=== PATIENT | male | born 1960 | race Caucasian/White ===

== ENCOUNTER 2016-12-30 16:13 | Emergency (ER) | payer OTHER ==
[~2016-12-30] VITALS: Ht 188 cm; Wt 108.0 kg
[2016-12-30 16:21] VITALS: Ht 188 cm; Wt 108.0 kg
--- NOTE | 2016-12-30 17:46 | ERD ---
ER Documentation Chief Complaint Date/Time DATE: 12/30/16 TIME: 17:[address] and cough for past 2 weeks HPI 56 y/o male presents to ED for sore throat and productive cough for more than a week. Stated that he felt like he had a fever a few days ago but did not take his temperature. Denies headache, loss of consciousness, dizziness, blurry vision, changes in vision, photophobia, ear pain, difficulty swallowing, neck pain, shoulder pain, chest pain, hemoptysis, abdominal pain, back pain, loss of appetite, nausea, vomiting, hematochezia, diarrhea, constipation, urinary symptoms, bladder and bowel incontinences, extremity weakness, extremity tenderness, numbness or tingling sensation, difficulty walking, recent travel, recent exposure to illness, recent antibiotic use in the last 3 months, chills. Allergy: NKA PMH: Diabetes. Medications: Metformin. Surgery: Denies. Family history: Denies. 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 Denies smoking, use of alcohol, use of illegal drugs. ROS All systems reviewed and are negative except as per history of present illness. Medications Home Meds Active Scripts Ibuprofen* (Motrin*) 600 Mg Tab, 600 MG PO Q6H Y for PAIN AND OR ELEVATED TEMP, #30 TAB Prov:DELFINO LEE F 12/30/16 Guaifenesin-Dextromethorphan* (Robitussin* DM) 100MG/10MG/5ML Syrup, 5 ML PO Q6H Y for COUGH for 7 Days, ML Prov:DELFINO LEE F 12/30/16 Amoxicillin/Potassium Clav (Amox-Clav 875-125 mg Tablet) 875-125 mg Tab, 1 TAB PO BID for 10 Days, #20 TAB Prov:DAVIDMARIA ESTHERJELENAAR F 12/30/16 Allergies Allergies: Coded Allergies: No Known Allergy (Unverified , 12/30/16) Physical Exam Vitals Vital Signs Date Time Temp Pulse Resp B/P Pulse Ox O2 Delivery O2 Flow Rate FiO2 12/30/16 16:21 98.9 93 18 141/71 97 Physical Exam CONSTITUTIONAL: Well-appearing; well-nourished; in no apparent distress. HEAD: Normocephalic; atraumatic. EYES: Conjunctiva clear, sclera non-icteric, EOM intact. PERRL Ears: Hearing intact. EACs clear, TMs non-bulging, non-inflamed, translucent & mobile, ossicles normal appearance, No obstructions, no erythema, no discharges Nose: No obstructions. No polyps. No external lesions. Mucosa inflamed. No external lesions, septum and turbinates normal. No rhinorrhea. No discharges. Frontal sinus is tender to palpation. Maxillary sinus is tender to palpation. MOUTH: Moist mucous membranes, no lesion, no obstructions, no vesicles, no thrush, patent airway Throat: Uvula in midline. Right tonsil is +2 with rythema, no exudate. Left tonsil is +2 with erythema, no exudate. Tolerating secretions well. Good gag reflex. Patent airway. Neck: Supple, without lesions, bruits, or adenopathy. No mass. Thyroid non- enlarged and non-tender to palpation. CHEST: Symmetrical chest. Respirations even and not labored. No retractions noted. CARDIOVASCULAR: Normal S1, S2. RRR. No murmurs, gallops. RESPIRATORY: Normal chest excursion with respiration; breath sounds clear and equal bilaterally; no wheezes, rhonchi, or rales. Breathing even and unlabored. Speaking in clear, full, and complete sentences w/ ease. ABDOMEN: Normal bowel sounds normal. Soft, round, non-distended, non-guarding, no tenderness, no rebound, no organomegaly, no masses, no pulsating abdominal mass. No hernia. No peritoneal signs. : No CVA tenderness. BACK: Symmetrical shoulder. Spine is midline without deformity, tenderness. No evidence of trauma or deformity. PELVIS: Stable pelvis. No evidence of trauma or deformity. MUSCULOSKELETAL: Normal gait and station. No misalignment, asymmetry, crepitation, defects, tenderness, masses, effusions, decreased range of motion, instability, atrophy or abnormal strength or tone in the head, neck, spine, ribs , pelvis or extremities. No calf tenderness. NEUROVASCULAR: Distal pulses are present. Pedal pulse are present, equal, and normal. Capillary refills are < 2 seconds. NEUROLOGIC: Alert and oriented x4. Speaks full and clear sentences. Cranial Nerves II-XII normal. Sensation to pain, touch, and proprioception normal. Grossly unremarkable. No neurologic deficits. Romberg test is negative. PSYCHOLOGICAL: The patients mood and manner are appropriate. No hallucinations , delusions. Not SI. Not HI. Has the capacity to decide for self SKIN: Normal for age and ethnicity; warm; dry; good turgor; no apparent lesions or exudates. No rashes, hives, discoloration. Intact. Procedures/MDM Examination: Please see physical examination. Disease process, medical treatment was explained to the patient and family member. They verbalized understanding and agreed with the medical treatment, and follow-up care. Consultation: None. Differential diagnosis: Pneumonia versus bronchitis versus upper respiratory infection versus strep throat versus sinusitis Medical decision makin56 y/o male presents to ED for sore throat and productive cough for more than a week. Stated that he felt like he had a fever a few days ago but did not take his temperature. Patient's complaint, my physical findings are consistent with my final diagnosis of sinusitis. Medications prescribed are the following: Augmentin. Robitussin-DM. Motrin. Patient and family member are made aware of the side effects and adverse reactions of the medications prescribed. Instructed on when to seek emergent and medical attention in case allergic/anaphylactic reactions or severe side effects and or adverse reactions to medications. Patient and family member verbalized understanding. Patient instructed Instructed to follow-up with his PCP in 24-48 hours. Instructed to Call 911 for chest pain, shortness of breath. Advised to come back here in ED as soon as possible for severity of symptoms which includes but not limited to: any new symptoms; shortness of breath/difficulty of breathing; cardiovascular changes; severe gastrointestinal symptoms; signs and symptoms of bleeding and or infection; signs of compartment syndrome/neurovascular changes; neurological changes/deficits. Patient and family member verbalized understanding. Upon discharge, patient is alert and oriented x 4, speaks full and clear sentences, denies pain, has no neurological deficits, has no neurovascular deficits, difficulty of breathing. Breathing even and unlabored. Lung sounds are clear to auscultation. Not in distress. Appears comfortable. Ambulatory with steady gait. Appears satisfied with care provided here in ED. Departure Diagnosis: Primary Impression: Sore throat Additional Impressions: Sinusitis, acute frontal Recurrence: not specified as recurrent Qualified Code: J01.10 - Acute frontal sinusitis, recurrence not specified Sinusitis, acute maxillary Recurrence: not specified as recurrent Qualified Code: J01.00 - Acute maxillary sinusitis, recurrence not specified Condition: Good Additional Instructions: Follow-up with PCP in the next 24-48 hours. DELFINO LEE Dec 30, 2016 17:46
[2016-12-30] MEDS ORDERED: AMOX1TAB10 PO (17:48)
[2016-12-30] MEDS ORDERED: UDROBDM PO (17:49)
[2016-12-30] MEDS ORDERED: IBUP-1542 PO (17:50)
== END 2016-12-30 17:52 | disposition home or self-care (01) ==
LOC: E/R 16:13
DX: J02.9 Acute pharyngitis, unspecified (principal); J01.10 Acute frontal sinusitis, unspecified; J01.00 Acute maxillary sinusitis, unspecified; E11.9 Type 2 diabetes mellitus without complications; Z79.84 Long term (current) use of oral hypoglycemic drugs
CPT/HCPCS: 99283

== ENCOUNTER 2018-11-14 06:46 | Day surgery (SDC) | payer OTHER ==
[~2018-11-14] VITALS: Ht 182.9 cm; Wt 85.5 kg
[~2018-11-14 06:46] MED LIST: AMOX1TAB10 PO; GUAI5SYR2 PO; IBUP-1542 PO
[2018-11-14 08:26] VITALS: Ht 182.9 cm; Wt 85.5 kg
[2018-11-14] MEDS ORDERED: metformin (08:32)
[2018-11-14] MEDS ORDERED: GLIPIZIDE (08:32)
[2018-11-14 08:52] VITALS: BP 124/75; PULSE 107; RESP 23
[2018-11-14] MEDS ORDERED: FENTAnyl 50 MCG/ML VIAL ONE (10:02)
[2018-11-14] MEDS ORDERED: MIDAZOLAM 1 MG/ML 2 ML INJ ONE ×2 (10:02)
[2018-11-14 10:32] VITALS: BP 113/63; RESP 15
== END 2018-11-14 12:31 | disposition home or self-care (01) ==
LOC: GIL 06:46
PROVIDERS: ATTEND Internal Medicine Gastroenterology
DX: Z12.11 Encounter for screening for malignant neoplasm of colon (principal); K64.8 Other hemorrhoids; E11.9 Type 2 diabetes mellitus without complications
CPT/HCPCS: 45378; 82962; J2250; J3010; Z7610

== ENCOUNTER 2018-11-23 11:50 | Inpatient (IN) | payer OTHER ==
[~2018-11-23] VITALS: Ht 185.4 cm; Wt 84.7 kg
[~2018-11-23 11:50] MED LIST changes: -AMOX1TAB10 PO; +GLIPIZIDE; -GUAI5SYR2 PO; -IBUP-1542 PO; +metformin
[2018-11-23] MEDS ORDERED: SODIUM CHLORIDE 0.9% 1L BAG IV* STA (12:51)
[2018-11-23] MEDS ORDERED: CEFTRIAXONE 1 GM/50 ML (PMX) 50 ML IVPB ONE (13:00)
--- NOTE | 2018-11-23 13:15 | ERD ---
ER Documentation Chief Complaint Chief Complaint pt is bib family with c/o weakness , nausea, unable to eat for a few days HPI This is a 58-year-old man brought in by family members for generalized weakness, 25 pound weight loss, tactile fevers and chills, and intermittent vomiting over the last 3 weeks. Patient denies abdominal pain, no sore throat, no chest pain or shortness of breath, no headache or blurry vision, no complaints of neck pain or stiffness. Patient denies URI symptoms, denies night sweats, denies dysuria. ROS All systems reviewed and are negative except as per history of present illness. Medications Home Meds Reported Medications Glipizide* (Glipizide*) 5 Mg Tablet, 5 MG PO BID, TAB 11/23/18 Metformin* (Glucophage*) 1,000 Mg Tablet, 1000 MG PO BID, #60 TAB 11/23/18 Discontinued Reported Medications [glizipide] No Conflict Check 11/14/18 [metformin] No Conflict Check 11/14/18 Allergies Allergies: Coded Allergies: No Known Allergy (Unverified , 11/23/18) PMhx/Soc Diabetes mellitus History of Surgery: Yes (CATARACT) Anesthesia Reaction: No Hx Neurological Disorder: No Hx Respiratory Disorders: Yes (PT STATES SOMETIMES SHORTNESS OF BREATH WITH PROCEDURES) Hx Cardiac Disorders: No Hx Psychiatric Problems: No Hx Miscellaneous Medical Probl: No Hx Alcohol Use: No Hx Substance Use: No Hx Tobacco Use: No FmHx Family History: diabetes Physical Exam Vitals Vital Signs Date Temp Pulse Resp B/P (MAP) Pulse Ox O2 O2 Flow FiO2 Time Delivery Rate 11/23/18 100.5 105 16 143/81 100 Room Air 15:00 (101) 11/23/18 101.4 109 20 118/68 98 11:53 (85) Physical Exam GENERAL: Well-developed, well-nourished, appears dehydrated, febrile HEENT: Dry mucous membranes, pink conjunctiva, no cervical spine tenderness or step-off deformities, no goiter, no jaundice or icterus, extraocular movements intact without pain. No submandibular induration, and no pharyngeal erythema NEURO: Alert and oriented 3, cranial nerves II through XII intact bilaterally, pupils equal round reactive to light, no focal deficits or facial asymmetry, sensation intact distally Strength 5/5 in upper and lower extremities bilateral ly CARDIAC: Tachycardic and regular, no murmurs rubs or gallops LUNGS: Clear bilaterally no wheezing crackles or stridor ABDOMEN: Soft nontender, no guarding, no rigidity, no rebound, no psoas sign no obturator sign. SKIN: Warm and dry to touch, no abrasions, contusions, or hematomas, no lacerations, no ecchymosis, no target lesions, and without ulcers EXTREMITIES: No clubbing cyanosis or edema, calves are bilaterally symmetrical, no Homans sign, no popliteal cord sign. Distal pulses equal and bilateral PSYCH: Normal affect without agitation or irritability Result Diagram: 11/23/18 1307 11/23/18 1307 Results 24 hrs Laboratory Tests Test 11/23/18 12:57 11/23/18 13:07 11/23/18 13:08 POC Venous Lactate 2.0 mmol/L White Blood Count 7.6 10^3/ul Red Blood Count 3.84 10^6/ul Hemoglobin 10.2 g/dl Hematocrit 31.6 % Mean Corpuscular Volume 82.3 fl Mean Corpuscular Hemoglobin 26.6 pg Mean Corpuscular 32.3 g/dl Hemoglobin Concent Red Cell Distribution Width 16.1 % Platelet Count 190 10^3/UL Mean Platelet Volume 10.4 fl Immature Granulocytes % 0.500 % Neutrophils % 53.4 % Lymphocytes % 23.2 % Monocytes % 22.0 % Eosinophils % 0.4 % Basophils % 0.5 % Nucleated Red Blood Cells % 0.0 /100WBC Immature Granulocytes # 0.040 10^3/ul Neutrophils # 4.1 10^3/ul Lymphocytes # 1.8 10^3/ul Monocytes # 1.7 10^3/ul Eosinophils # 0.0 10^3/ul Basophils # 0.0 10^3/ul Nucleated Red Blood Cells # 0.0 10^3/ul Urine Color ERIC Urine Clarity CLEAR Urine pH 5.0 Urine Specific [place] 1.015 Urine Ketones TRACE mg/dL Urine Nitrite NEGATIVE mg/dL Urine Bilirubin NEGATIVE mg/dL Urine Urobilinogen NEGATIVE mg/dL Urine Leukocyte Esterase NEGATIVE [place]/ul Urine Microscopic RBC 3 /HPF Urine Microscopic WBC 1 /HPF Urine Bacteria FEW /HPF Urine Mucus FEW /HPF Urine Hemoglobin 1+ mg/dL Urine Glucose NEGATIVE mg/dL Urine Total Protein NEGATIVE mg/dl Sodium Level 134 mmol/L Potassium Level 4.7 mmol/L Chloride Level 97 mmol/L Carbon Dioxide Level 28 mmol/L Anion Gap 9 Blood Urea Nitrogen 15 mg/dl Creatinine 0.84 mg/dl Est Glomerular Filtrat > 60 mL/min Rate mL/min Glucose Level 201 mg/dl Calcium Level 10.6 mg/dl Total Bilirubin 0.6 mg/dl Direct Bilirubin 0.00 mg/dl Indirect Bilirubin 0.6 mg/dl Aspartate Amino Transf (AST/SGOT) 43 IU/L Alanine 20 IU/L Aminotransferase (ALT/SGPT) Alkaline Phosphatase 166 IU/L Troponin I < 0.012 ng/ml Total Protein 8.6 g/dl Albumin 4.1 g/dl Globulin 4.50 g/dl Albumin/Globulin Ratio 0.91 Lipase 98 U/L Prothrombin Time 13.3 Sec Prothrombin Time Ratio 1.0 INR International 1.00 Normalized Ratio Activated Partial Thromboplast 26.9 Sec Time Current Medications Medications Dose Sig/Ishmael Start Time Status Last (Trade) Ordered Route PRN Stop Time Admin Dose Reason Admin Sodium 3,000 ml BOLUS OVER 2 11/23/18 DC 11/23/18 Chloride HOURS STAT 12:51 13:03 (NS) IV* 11/23/18 12:53 Ceftriaxone 50 ml @ ONCE ONCE 11/23/18 DC 11/23/18 Sodium 100 mls/hr IVPB 13:00 13:03 11/23/18 13:29 Sodium 1,000 ml @ Q30M ONCE 11/23/18 DC 11/23/18 Chloride 2,000 mls/hr IV 14:30 15:26 11/23/18 14:59 Sodium 500 ml ONCE ONCE 11/23/18 DC Chloride IV 15:30 (NS) 11/23/18 16:05 Sodium 1,000 ml @ Q8H IV 11/23/18 Chloride 125 mls/hr 15:28 IV Flush 3 ml PER 11/23/18 (NS 3 ml) PROTOCOL IV 15:30 Ondansetron 4 mg Q6H PRN 11/23/18 HCl (Zofran IV NAUSEA 15:30 Inj) AND/OR VOMITING 650 mg Q6H PRN 11/23/18 Acetaminophen PO PAIN 15:30 (Tylenol LEVEL 1-3 OR Tab) FEVER 650 mg Q6H PRN 11/23/18 Acetaminophen SD PAIN 15:30 (Tylenol LEVEL 1-3 OR Supp) FEVER 1 tab Q6H PRN 11/23/18 Acetaminophen PO MODERATE 15:30 / PAIN LEVEL Hydrocodone 4-6 Bitart ([place] (5/325)) Morphine 2 mg Q4H PRN 11/23/18 Sulfate IV SEVERE 15:30 (morphine) PAIN LEVEL 7-10 Docusate 100 mg Q12H PRN 11/23/18 Sodium PO 15:30 (Colace) CONSTIPATION Magnesium 30 ml DAILY PRN 11/23/18 Hydroxide PO 15:30 (Milk Of Mag) CONSTIPATION Bisacodyl 5 mg DAILY PRN 11/23/18 (Dulcolax) PO 15:30 CONSTIPATION Bisacodyl 10 mg DAILY PRN 11/23/18 (Dulcolax SD 15:30 Supp) CONSTIPATION Sodium 133 ml DAILY PRN 11/23/18 Biphosphate/ SD 15:30 Sodium CONSTIPATION Phosphate (Fleet Enema) Famotidine 20 mg Q12 PO 11/23/18 (Pepcid) 15:30 Enoxaparin 40 mg DAILY SC 11/24/18 Sodium 09:00 (Lovenox) Discontinue ONCE ONCE 11/23/18 DC Miscellaneous current oral XX 15:30 sulfonylur... 11/23/18 16:01 Information (* Miscellaneous Pharmacy Order) Diagnostic 1 ea 02 XX 11/24/18 Test (Pha) 02:00 (Accu-Chek) ONCE ONCE 11/23/18 DC Miscellaneous HYPOGLYCEMIA XX 15:30 PROTOCOL 11/23/18 16:01 Information w... (* Miscellaneous Pharmacy Order) Insulin NOVOLOG WITH MEALS 11/23/18 Aspart *MODERATE* BEDTIME SC 18:00 (Novolog ALGORITHM Insulin Pen) Discontinue ONCE ONCE 11/23/18 DC Miscellaneous all previ... XX 15:30 11/23/18 16:01 Information (* Miscellaneous Pharmacy Order) 1 ea NOTE XX 11/23/18 Miscellaneous 16:30 Information Glucose 15 gm Q15M PRN 11/23/18 (Glutose) PO DECREASED 16:30 GLUCOSE Glucose 22.5 gm Q15M PRN 11/23/18 (Glutose) PO DECREASED 16:30 GLUCOSE Dextrose 25 ml Q15M PRN 11/23/18 (D50w IV DECREASED 16:30 Syringe) GLUCOSE Dextrose 50 ml Q15M PRN 11/23/18 (D50w IV DECREASED 16:30 Syringe) GLUCOSE Glucagon 1 mg Q15M PRN 11/23/18 (Glucagen) IM DECREASED 16:30 GLUCOSE Glucose 15 gm Q15M PRN 11/23/18 (Glutose) BUCCAL 16:30 DECREASED GLUCOSE Procedures/MDM IV line was established patient was placed on manager monitoring rhythm strip revealed a sinus tachycardia at 110 bpm with upright P and T waves. Patient was afebrile. I ordered blood and urine cultures EKG performed, read by me revealed a sinus tachycardia at 105 bpm, normal axis, narrow QRS complex, no concerning ST elevations or depressions noted Chest X-ray 1V Interpreted by me: Soft Tissue: No acute abnormalities Bones: No acute abnormalities Mediastinum/Cardiac Silhouette/Lungs: No acute abnormalities I administered over 3 L normal saline IV for dehydration and ibuprofen 600 mg p.o. for fever. I also administered ceftriaxone 1 g IV CBC was unremarkable, electrolytes normal, liver function tests normal, troponin negative, lactic acid elevated at 2, urinalysis was negative for infection. Patient's infectious symptoms have not stabilized and the patient is at risk of rapid decompensation. The patient will be admitted for careful hydration, antibiotic therapy, and infectious source control. SEVERE SEPSIS CRITERIA: Infectious source: Unknown SEPSIS MANAGEMENT Time of recognition of sepsis: Upon arrival. Time of recognition of severe sepsis: No severe sepsis at this time. Time of recognition of septic shock: No septic shock at this time. 3 HOUR BUNDLE Blood cultures x 2 before broad-spectrum antibiotics: Yes 30 ml/kg NS bolus completed Initial lactate 2.0 Repeat lactate pending SEPTIC SHOCK ASSESSMENT: No lactic acid > 4.0 No persistent hypotension (SBP < 90 or 40 mmHg drop, MAP < 65) despite 30 mL/kg IV fluid bolus VOLUME REASSESSMENT FOR SEPTIC SHOCK: Reevaluation Time: 1615 Temp 99 F, BP 140/80, pulse 90 bpm, respiratory rate 18 breaths/min Heart regular rate & rhythm Lungs no crackles Skin warm & dry Cap Refill less than 2 seconds Peripheral pulses radially present PERSISTENT HYPOTENSION TREATMENT: Comfort care no Central line not Required Vasopressor started not required I considered further perfusion assessment with CVP measurement, SCVO2, bedside ultrasound volume assessment, passive leg raise, trial of further fluid bolus. And proceeded with 30 ml/kg fluid bolus of NSS, broad spectrum antibiotics, and admission. CRITICAL CARE: Critical care time 35 minutes, this was time separate from other billable procedures. Emergent fluid management while maintaining close respiratory support. Provision of immediate and broad-spectrum antibiotic therapy. Simultaneous assessment for possible sources in order to direct targeted therapy. Consideration for invasive and chemical support to prevent cardiopulmonary collapse. Critical care time is independent of procedures performed. Further workup and imaging deferred to admitting team, patient may require echocardiography Accepting Care Team: Current data and ongoing care discussed. Time: Time of admission Primary Provider: Hospitalist Consulting: Infectious disease Outstanding Data: none Departure Diagnosis: Primary Impression: Unexplained weight loss Additional Impressions: Vomiting Vomiting type: unspecified Vomiting Intractability: non-intractable Nausea presence: with nausea Qualified Codes: R11.2 - Nausea with vomiting, unspecified Weakness Fever Fever type: unspecified Qualified Codes: R50.9 - Fever, unspecified Condition: HANNAH Wright MD Nov 23, 2018 13:15
[2018-11-23] MEDS ORDERED: MTF1000T PO (13:27)
[2018-11-23] MEDS ORDERED: GLIP5TAB13 PO (13:27)
[2018-11-23] MEDS ORDERED: SOD CHLORIDE 0.9% 1,000 ML IV ONE (14:30)
[2018-11-23] MEDS ORDERED: ACETAMINOPHEN 325 MG TAB PO PRN (15:30)
[2018-11-23] MEDS ORDERED: morphine 4 MG/ML VIAL IV PRN (15:30)
[2018-11-23] MEDS ORDERED: ACETAMINOPHEN 650 MG SUPP PR PRN (15:30)
[2018-11-23] MEDS ORDERED: NA PHOSPHATE/BIPHOS 133 ML ENEMA PR PRN (15:30)
[2018-11-23] MEDS ORDERED: ONDANSETRON 4 MG INJ IV PRN (15:30)
[2018-11-23] MEDS ORDERED: HYDROCODONE/APAP (5/325) TAB PO PRN (15:30)
[2018-11-23] MEDS ORDERED: BISACODYL 10 MG SUPP PR PRN (15:30)
[2018-11-23] MEDS ORDERED: SODIUM CHLORIDE 0.9% 1L BAG IV ONE (15:30)
[2018-11-23] MEDS ORDERED: NACL 0.9% 3 ML SYG IV SCH (15:30)
[2018-11-23] MEDS ORDERED: MAGNESIUM HYDROXIDE 30ML CUP PO PRN (15:30)
--- NOTE | 2018-11-23 16:06 | HP ---
Date/Time of Note Date/Time of Note DATE: 11/23/18 TIME: 15:59 Assessment/Plan VTE Prophylaxis SCD contraindicated: low risk/ambulating Pharmacological prophylaxis: NA/contraindicated Pharm contraindication: low risk/ambulating Lines/Catheters IV [facility] Type (from [facility] Saline Lock Assessment/Plan Hospital Course Chief complaint weight loss History of present illness 58-year-old gentleman admitted with weight loss failure to thrive. earlier this month he had an elective colonoscopy which was a poor prep but otherwise unremarkable. Repeat: Plan in 5 years. Patient states that he is lost 15-20 pounds lately. Presented today for upper GI issues of nausea poor appetite. On exam he additionally had a fever bony aches. Denies any ill contacts. Possible cough fairly nonproductive. No recent travel ill contacts that I am aware of. Family members are not sick. 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 Patient denies any travel. Denies any kun dysuria diarrhea. No recent antibiotic use that I am aware of. Denies being hospitalized as a child for a lung infection tuberculosis etc. No family history of tuberculosis that I can ascertain. His and daughter are healthy. No recent change in medications or antibiotic use that I am aware of ER: Stable vital signs except sinus tachycardia and fever sinus rhythm Past medical history Diabetes Metabolic syndrome Weight loss Past surgical history None Social history No active tobacco or alcohol Has a [employer] school. Family history Diabetes No family history of early coronary disease cancer stroke Review of systems Neuro: No headache loss of speech or vision Cardiovascular: No chest pain no dyspnea no edema lungs: Lungs: Cough fever Abdomen: Occasional pain nausea weight loss Genitourinary: Occasional abdominal pain no dysuria hematuria possible fever Musculoskeletal: No gait dysfunction no rash no itching no edema Constitutional: Probable chills Reiger bony aches weight loss Endocrine: Positive diabetes metabolic syndrome no previous thyroid or dyslipidemia Hematologic system: No hematochezia melena hematuria Psychiatry: The patient has a stable mood advancing agitation anxiety depression Physical exam No pallor adenopathy JVD Regular no murmur rub gallop Clear Scaphoid Check sick no rigidity rebound guarding No edema Assessment and plan 1. Fever rule out viral illness. Consider gastritis stable admit to [facility] 2. Wt loss, possible hypercalcemia concerning for malignancy or severe infectious process. May need outpatient hematology 3. Diabetes metabolic syndrome 4. Anemia check occult iron studies possibly of chronic disease 5. BPH bladder outlet obstruction? May need urology consult soon Result Diagram: 11/23/18 1307 11/23/18 1307 Results 24hrs Laboratory Tests Test 11/23/18 12:57 11/23/18 13:07 11/23/18 13:08 POC Venous Lactate 2.0 White Blood Count 7.6 Red Blood Count 3.84 L Hemoglobin 10.2 L Hematocrit 31.6 L Mean Corpuscular Volume 82.3 Mean Corpuscular Hemoglobin 26.6 L Mean Corpuscular Hemoglobin Concent 32.3 Red Cell Distribution Width 16.1 H Platelet Count 190 Mean Platelet Volume 10.4 Immature Granulocytes % 0.500 H Neutrophils % 53.4 Lymphocytes % 23.2 Monocytes % 22.0 H Eosinophils % 0.4 Basophils % 0.5 Nucleated Red Blood Cells % 0.0 Immature Granulocytes # 0.040 H Neutrophils # 4.1 Lymphocytes # 1.8 Monocytes # 1.7 H Eosinophils # 0.0 Basophils # 0.0 Nucleated Red Blood Cells # 0.0 Urine Color ERIC Urine Clarity CLEAR Urine pH 5.0 Urine Specific [place] 1.015 Urine Ketones TRACE A Urine Nitrite NEGATIVE Urine Bilirubin NEGATIVE Urine Urobilinogen NEGATIVE Urine Leukocyte Esterase NEGATIVE Urine Microscopic RBC 3 Urine Microscopic WBC 1 Urine Bacteria FEW A Urine Mucus FEW A Urine Hemoglobin 1+ H Urine Glucose NEGATIVE Urine Total Protein NEGATIVE Sodium Level 134 L Potassium Level 4.7 Chloride Level 97 Carbon Dioxide Level 28 Anion Gap 9 Blood Urea Nitrogen 15 Creatinine 0.84 Est Glomerular Filtrat Rate mL/min > 60 Glucose Level 201 Calcium Level 10.6 H Total Bilirubin 0.6 Direct Bilirubin 0.00 Indirect Bilirubin 0.6 Aspartate Amino Transf (AST/SGOT) 43 Alanine Aminotransferase (ALT/SGPT) 20 Alkaline Phosphatase 166 H Troponin I < 0.012 Total Protein 8.6 H Albumin 4.1 Globulin 4.50 H Albumin/Globulin Ratio 0.91 Lipase 98 Prothrombin Time 13.3 Prothrombin Time Ratio 1.0 INR International Normalized Ratio 1.00 Activated Partial Thromboplast Time 26.9 HPI/ROS Admit Date/Time Admit Date/Time PMH/Family/Social Past Medical History Medications Current Medications Sodium Chloride (NS) 500 ml ONCE IV ; Start 11/23/18 at 15:30; Status UNV Sodium Chloride 1,000 ml @ 125 mls/hr Q8H IV ; Start 11/23/18 at 15:28; Status UNV IV Flush (NS 3 ml) 3 ml PER PROTOCOL IV ; Start 11/23/18 at 15:30; Status UNV Ondansetron HCl (Zofran Inj) 4 mg Q6H PRN IV NAUSEA AND/OR VOMITING; Start 11/23/18 at 15:30; Status UNV Acetaminophen (Tylenol Tab) 650 mg Q6H PRN PO PAIN LEVEL 1-3 OR FEVER; Start 11/23/18 at 15:30; Status UNV Acetaminophen (Tylenol Supp) 650 mg Q6H PRN [place] PAIN LEVEL 1-3 OR FEVER; Start 11/23/18 at 15:30; Status UNV Acetaminophen/ Hydrocodone Bitart ([place] (5/325)) 1 tab Q6H PRN PO MODERATE PAIN LEVEL 4-6; Start 11/23/18 at 15:30; Status UNV Morphine Sulfate (morphine) 2 mg Q4H PRN IV SEVERE PAIN LEVEL 7-10; Start 11/23/18 at 15:30; Status UNV Docusate Sodium (Colace) 100 mg Q12H PRN PO CONSTIPATION; Start 11/23/18 at 15:30; Status UNV Magnesium Hydroxide (Milk Of Mag) 30 ml DAILY PRN PO CONSTIPATION; Start 11/23/18 at 15:30; Status UNV Bisacodyl (Dulcolax) 5 mg DAILY PRN PO CONSTIPATION; Start 11/23/18 at 15:30; Status UNV Bisacodyl (Dulcolax Supp) 10 mg DAILY PRN [place] CONSTIPATION; Start 11/23/18 at 15:30; Status UNV Sodium Biphosphate/ Sodium Phosphate (Fleet Enema) 133 ml DAILY PRN [place] CONSTIPATION; Start 11/23/18 at 15:30; Status UNV Famotidine (Pepcid) 20 mg Q12 PO ; Start 11/23/18 at 15:30; Status UNV Enoxaparin Sodium (Lovenox) 40 mg DAILY SC ; Start 11/24/18 at 09:00; Status UNV Miscellaneous Information (* Miscellaneous Pharmacy Order) Discontinue current oral sulfonylur... ONCE ONCE XX ; Start 11/23/18 at 15:30; Stop 11/23/18 at 15:31; Status UNV Diagnostic Test (Pha) (Accu-Chek) XX ; Start 11/24/18 at 02:00; Status UNV Miscellaneous Information (* Miscellaneous Pharmacy Order) HYPOGLYCEMIA PROTOCOL w... ONCE ONCE XX ; Start 11/23/18 at 15:30; Stop 11/23/18 at 15:31; Status UNV Insulin Aspart (Novolog Insulin Pen) NOVOLOG *MODERATE* ALGORITHM WITH MEALS BEDTIME SC ; Start 11/23/18 at 18:00; Status UNV Miscellaneous Information (* Miscellaneous Pharmacy Order) Discontinue all previ... ONCE ONCE XX ; Start 11/23/18 at 15:30; Stop 11/23/18 at 15:31; Status UNV Coded Allergies: No Known Allergy (Unverified , 11/23/18) Social History Smoking Status: Never smoker Exam/Review of Systems Vital Signs Vitals Vital Signs Date Temp Pulse Resp B/P (MAP) Pulse Ox O2 O2 Flow FiO2 Time Delivery Rate 11/23/18 100.5 105 16 143/81 100 Room Air 15:00 (101) CHARITY MATA MD Nov 23, 2018 16:06
[2018-11-23] MEDS ORDERED: DEXTROSE 50% 50 ML SYRINGE IV PRN ×2 (16:30)
[2018-11-23] MEDS ORDERED: GLUCAGON 1 MG INJ IM PRN (16:30)
[2018-11-23] MEDS ORDERED: GLUCOSE GEL 15 GRAM TUBE PO PRN ×2 (16:30)
[2018-11-23] MEDS ORDERED: GLUCOSE GEL 15 GRAM TUBE BUCCAL PRN (16:30)
[2018-11-23] MEDS ORDERED: IBUPROFEN 600 MG TAB PO ONE (16:30)
[2018-11-23] MEDS: FAMOTIDINE 20 MG TAB PO SCH ×2 (21:00→21:42)
[2018-11-23 21:21] VITALS: Ht 185.4 cm; Wt 84.7 kg
[2018-11-23 21:23] VITALS: BP 165/83; PULSE 111; RESP 18
[2018-11-23] MEDS: SOD CHLORIDE 0.9% 1,000 ML IV SCH ×2 (21:44→23:28)
[2018-11-23] MEDS: INSULIN ASPART [NOVOLOG] 3 ML PEN SC SCH (22:01)
[2018-11-23 22:05] VITALS: BP 128/63; PULSE 107; RESP 18
[2018-11-24 01:53] VITALS: BP 123/69; PULSE 81; RESP 18
[2018-11-24] MEDS: ACCU-CHEK XX SCH (02:30)
[2018-11-24] MEDS: SOD CHLORIDE 0.9% 1,000 ML IV SCH ×3 (05:42→23:40)
--- NOTE | 2018-11-24 06:00 | NUR ---
Shift Summary Patient admitted last night for Vomiting, Weight Loss and Fever. Admission and assessment done. Pictures taken and placed in chart. Patient oriented to room and surroundings. Verbalized understanding. Patient A/Ox4. Ambulates with steady gait. All scheduled medications administered. Patient given Motrin x1 for pain and temp 100.4 orally. IVF infusing. No c/o nausea or vomiting reported. Blood glucose controlled. Patient's safety maintained. Call light within reach. Daughter in-law remains at bedside. Will endorse plan of care to oncoming nurse.
[2018-11-24 07:56] VITALS: BP 137/72; PULSE 94; RESP 16
[2018-11-24] MEDS: FAMOTIDINE 20 MG TAB PO SCH ×2 (08:05→20:42)
[2018-11-24] MEDS: INSULIN ASPART [NOVOLOG] 3 ML PEN SC SCH ×4 (08:09→20:49)
[2018-11-24] MEDS: ENOXAPARIN 40 MG/0.4 ML SYG SC SCH (08:10)
--- NOTE | 2018-11-24 11:01 | PN ---
Date/Time of Note Date/Time of Note DATE: 11/24/18 TIME: 10:58 Assessment/Plan VTE Prophylaxis Risk score (from Ns)>0 risk: 1 SCD applied (from [facility] [place]): Yes SCD contraindicated: low risk/ambulating Pharmacological prophylaxis: NA/contraindicated, LMWH Pharm contraindication: low risk/ambulating Lines/Catheters IV [facility] (from [facility]): Peripheral IV Assessment/Plan Hospital Course Assessment and plan 1. Fever ro viral illness/ gastritis stable admit to [facility] 2. Wt loss, possible hypercalcemia, concerning for malignancy. r/o severe infectious process. Possible symptomatic hyperthyroidism. Consult endocrinology 3. Diabetes/ metabolic syndrome 4. Anemia check occult iron studies possibly of chronic disease 5. BPH bladder outlet obstruction? urology consulted S: Low-grade fever overnight. Nausea vomiting with one episode of hematemesis. No cough dyspnea hemoptysis sore throat. No abdominal pain dysuria O: Vital signs stable except low-grade fever and st. Mild [place] depression on EKG, asymptomatic Physical exam No pallor adenopathy Regular no murmur rub gallop Clear Benign cachexia No edema Result Diagram: 11/24/1833 11/24/1833 Results 24hrs Laboratory Tests Test 11/23/18 12:57 11/23/18 13:07 11/23/18 13:08 11/23/18 17:30 POC Venous Lactate 2.0 White Blood Count 7.6 Red Blood Count 3.84 L Hemoglobin 10.2 L Hematocrit 31.6 L Mean Corpuscular 82.3 Volume Mean Corpuscular 26.6 L Hemoglobin Mean Corpuscular 32.3 Hemoglobin Concent Red Cell 16.1 H Distribution Width Platelet Count 190 Mean Platelet Volume 10.4 Immature 0.500 H Granulocytes % Neutrophils % 53.4 Lymphocytes % 23.2 Monocytes % 22.0 H Eosinophils % 0.4 Basophils % 0.5 Nucleated Red Blood 0.0 Cells % Immature 0.040 H Granulocytes # Neutrophils # 4.1 Lymphocytes # 1.8 Monocytes # 1.7 H Eosinophils # 0.0 Basophils # 0.0 Nucleated Red Blood 0.0 Cells # Urine Color ERIC Urine Clarity CLEAR Urine pH 5.0 Urine Specific 1.015 [place] Urine Ketones TRACE A Urine Nitrite NEGATIVE Urine Bilirubin NEGATIVE Urine Urobilinogen NEGATIVE Urine Leukocyte NEGATIVE Esterase Urine Microscopic 3 RBC Urine Microscopic 1 WBC Urine Bacteria FEW A Urine Mucus FEW A Urine Hemoglobin 1+ H Urine Glucose NEGATIVE Urine Total Protein NEGATIVE Sodium Level 134 L Potassium Level 4.7 Chloride Level 97 Carbon Dioxide Level 28 Anion Gap 9 Blood Urea Nitrogen 15 Creatinine 0.84 Est Glomerular > 60 Filtrat Rate mL/min Glucose Level 201 Calcium Level 10.6 H Total Bilirubin 0.6 Direct Bilirubin 0.00 Indirect Bilirubin 0.6 Aspartate Amino 43 Transf (AST/SGOT) Alanine 20 Aminotransferase (AL T/SGPT) Alkaline Phosphatase 166 H Troponin I < 0.012 Total Protein 8.6 H Albumin 4.1 Globulin 4.50 H Albumin/Globulin 0.91 Ratio Lipase 98 Prothrombin Time 13.3 Prothrombin Time 1.0 Ratio INR International 1.00 Normalized Ratio Activated 26.9 Partial Thromboplast Time Lactic Acid Level 2.1 *H Test 11/23/18 21:21 11/23/18 21:41 11/24/18 02:31 11/24/18 05:33 Lactic Acid Level 1.7 Bedside Glucose 200 193 White Blood Count 5.7 # Red Blood Count 3.41 L Hemoglobin 9.1 L Hematocrit 28.7 L Mean Corpuscular 84.2 Volume Mean Corpuscular 26.7 L Hemoglobin Mean Corpuscular 31.7 L Hemoglobin Concent Red Cell 16.3 H Distribution Width Platelet Count 158 Mean Platelet Volume 9.6 Immature 0.700 H Granulocytes % Neutrophils % Segmented 44 Neutrophils % (Manual) Lymphocytes % Lymphocytes % 34 (Manual) Monocytes % Monocytes % (Manual) 18 H Eosinophils % Eosinophils % 3 (Manual) Basophils % Promyelocytes % 1 H (Manual) Nucleated Red Blood 0.0 Cells % Immature 0.040 H Granulocytes # Neutrophils # Lymphocytes (Manual) 1.9 Lymphocytes # Monocytes # Monocytes # (Manual) 1.0 H Eosinophils # Basophils # Promyelocytes # 0.0 Nucleated Red Blood Cells # Platelet Estimate NORMAL Giant Platelets 3 H Polychromasia 3+ Hypochromasia 1+ Poikilocytosis 1+ Anisocytosis 1+ Sodium Level 140 Potassium Level 3.6 Chloride Level 105 Carbon Dioxide Level 28 Anion Gap 7 Blood Urea Nitrogen 9 Creatinine 0.71 Est Glomerular > 60 Filtrat Rate mL/min Glucose Level 160 Hemoglobin A1c 6.1 H Calcium Level 9.5 Phosphorus Level 3.6 Magnesium Level 1.4 L Iron Level 72 Total Iron Binding 256 Capacity Percent Iron 28 Saturation Ferritin 339.0 H Total Bilirubin 0.6 Direct Bilirubin 0.00 Indirect Bilirubin 0.6 Aspartate Amino 30 Transf (AST/SGOT) Alanine 20 Aminotransferase (AL T/SGPT) Alkaline Phosphatase 129 H Troponin I < 0.012 Total Protein 7.2 # Albumin 3.2 L Globulin 4.00 H Albumin/Globulin 0.80 Ratio Thyroid Stimulating < 0.015 L Hormone (TSH) Free Thyroxine 3.84 H Total 1.07 Triiodothyronine Test 11/24/18 08:06 Bedside Glucose 146 Exam/Review of Systems Vital Signs Vitals Vital Signs Date Temp Pulse Resp B/P (MAP) Pulse Ox O2 O2 Flow FiO2 Time Delivery Rate 11/24/18 98.7 94 16 137/72 98 07:56 (93) 11/23/18 Room Air 22:05 Intake and Output 11/23/18 11/23/18 11/24/18 1515:00 23:00 07:00 IntakeIntake Total 50 ml 4000 ml 1600 ml BalanceBalance 50 ml 4000 ml 1600 ml Medications Medications Current Medications Sodium Chloride 1,000 ml @ 125 mls/hr Q8H IV Last administered on 11/24/18at 05:42; Admin Dose 125 MLS/HR; Start 11/23/18 at 15:28 IV Flush (NS 3 ml) 3 ml PER PROTOCOL IV ; Start 11/23/18 at 15:30 Ondansetron HCl (Zofran Inj) 4 mg Q6H PRN IV NAUSEA AND/OR VOMITING; Start 11/23/18 at 15:30 Acetaminophen (Tylenol Tab) 650 mg Q6H PRN PO PAIN LEVEL 1-3 OR FEVER; Start 11/23/18 at 15:30 Acetaminophen (Tylenol Supp) 650 mg Q6H PRN [place] PAIN LEVEL 1-3 OR FEVER; Start 11/23/18 at 15:30 Acetaminophen/ Hydrocodone Bitart ([place] (5/325)) 1 tab Q6H PRN PO MODERATE PAIN LEVEL 4-6; Start 11/23/18 at 15:30 Morphine Sulfate (morphine) 2 mg Q4H PRN IV SEVERE PAIN LEVEL 7-10; Start 11/23/18 at 15:30 Docusate Sodium (Colace) 100 mg Q12H PRN PO CONSTIPATION; Start 11/23/18 at 15:30 Magnesium Hydroxide (Milk Of Mag) 30 ml DAILY PRN PO CONSTIPATION; Start 11/23/18 at 15:30 Bisacodyl (Dulcolax) 5 mg DAILY PRN PO CONSTIPATION; Start 11/23/18 at 15:30 Bisacodyl (Dulcolax Supp) 10 mg DAILY PRN [place] CONSTIPATION; Start 11/23/18 at 15:30 Sodium Biphosphate/ Sodium Phosphate (Fleet Enema) 133 ml DAILY PRN [place] CONSTIPATION; Start 11/23/18 at 15:30 Famotidine (Pepcid) 20 mg Q12 PO Last administered on 11/24/18at 08:05; Admin Dose 20 MG; Start 11/23/18 at 15:30 Enoxaparin Sodium (Lovenox) 40 mg DAILY SC Last administered on 11/24/18at 08:10; Admin Dose 40 MG; Start 11/24/18 at 09:00 Diagnostic Test (Pha) (Accu-Chek) 1 ea 02 XX Last administered on 11/24/18at 02:30; Admin Dose 1 EA; Start 11/24/18 at 02:00 Insulin Aspart (Novolog Insulin Pen) NOVOLOG *MODERATE* ALGORITHM WITH MEALS BEDTIME SC Last administered on 11/24/18at 08:09; Admin Dose 2 UNIT; Start 11/23/18 at 18:00 Miscellaneous Information 1 ea NOTE XX ; Start 11/23/18 at 16:30 Glucose (Glutose) 15 gm Q15M PRN PO DECREASED GLUCOSE; Start 11/23/18 at 16:30 Glucose (Glutose) 22.5 gm Q15M PRN PO DECREASED GLUCOSE; Start 11/23/18 at 16:30 Dextrose (D50w Syringe) 25 ml Q15M PRN IV DECREASED GLUCOSE; Start 11/23/18 at 16:30 Dextrose (D50w Syringe) 50 ml Q15M PRN IV DECREASED GLUCOSE; Start 11/23/18 at 16:30 Glucagon (Glucagen) 1 mg Q15M PRN IM DECREASED GLUCOSE; Start 11/23/18 at 16:30 Glucose (Glutose) 15 gm Q15M PRN BUCCAL DECREASED GLUCOSE; Start 11/23/18 at 16:30 CHARITY MATA MD Nov 24, 2018 11:01
[2018-11-24 14:06] VITALS: BP 118/59; PULSE 90; RESP 16
--- NOTE | 2018-11-24 15:01 | CONS ---
Date/Time of Note Date/Time of Note DATE: 11/24/18 TIME: 14:55 Assessment/Plan Assessment/Plan Problems: (1) Graves' disease with exophthalmos Status: Chronic Comment: He is in the category of Graves' patients that has failed long-term oral agent therapy. His treatment options would be either go back on the methimazole and stay on until the thyroid gland [place] out and the antibody mediated process which could take another 20 years, radioactive iodine ablation which is the most common therapeutic practice in the [place], or surgical partial thyroidectomy. In his case we should at least get him back into euthyroid state and let them make decisions for himself. We do know that he tolerates the medications over the long-term based on his prior experience and we actually know what dose to give him. Get him started back on medication and he can be followed up as an outpatient from this directly (2) Diabetes mellitus type 2 in nonobese Status: Chronic Comment: Continue with oral agent therapy. Please consider the usage of DPP 4 inhibitor drug in this gentleman (3) Anemia Status: Chronic Comment: As per primary team Qualifiers: Qualified Codes: D64.9 - Anemia, unspecified Result Diagram: 11/24/18 0533 11/24/18 0533 Results 24hrs Laboratory Tests Test 11/23/18 17:30 11/23/18 21:21 11/23/18 21:41 11/24/18 02:31 Lactic Acid Level 2.1 *H 1.7 Bedside Glucose 200 193 Test 11/24/18 05:33 11/24/18 08:06 11/24/18 13:15 11/24/18 13:16 White Blood Count 5.7 # Red Blood Count 3.41 L Hemoglobin 9.1 L Hematocrit 28.7 L Mean Corpuscular 84.2 Volume Mean Corpuscular 26.7 L Hemoglobin Mean Corpuscular 31.7 L Hemoglobin Concent Red Cell 16.3 H Distribution Width Platelet Count 158 Mean Platelet Volume 9.6 Immature 0.700 H Granulocytes % Neutrophils % Segmented 44 Neutrophils % (Manual) Lymphocytes % Lymphocytes % 34 (Manual) Monocytes % Monocytes % (Manual) 18 H Eosinophils % Eosinophils % 3 (Manual) Basophils % Promyelocytes % 1 H (Manual) Nucleated Red Blood 0.0 Cells % Immature 0.040 H Granulocytes # Neutrophils # Lymphocytes (Manual) 1.9 Lymphocytes # Monocytes # Monocytes # (Manual) 1.0 H Eosinophils # Basophils # Promyelocytes # 0.0 Nucleated Red Blood Cells # Platelet Estimate NORMAL Giant Platelets 3 H Polychromasia 3+ Hypochromasia 1+ Poikilocytosis 1+ Anisocytosis 1+ Sodium Level 140 Potassium Level 3.6 Chloride Level 105 Carbon Dioxide Level 28 Anion Gap 7 Blood Urea Nitrogen 9 Creatinine 0.71 Est Glomerular > 60 Filtrat Rate mL/min Glucose Level 160 Hemoglobin A1c 6.1 H Calcium Level 9.5 Phosphorus Level 3.6 Magnesium Level 1.4 L Iron Level 72 Total Iron Binding 256 Capacity Percent Iron 28 Saturation Ferritin 339.0 H Total Bilirubin 0.6 Direct Bilirubin 0.00 Indirect Bilirubin 0.6 Aspartate Amino 30 Transf (AST/SGOT) Alanine 20 Aminotransferase (AL T/SGPT) Alkaline Phosphatase 129 H Troponin I < 0.012 Total Protein 7.2 # Albumin 3.2 L Globulin 4.00 H Albumin/Globulin 0.80 Ratio Thyroid Stimulating < 0.015 L Hormone (TSH) Free Thyroxine 3.84 H Total 1.07 Triiodothyronine Bedside Glucose 146 252 H Lab Scanned Report LAB Consultation Date/Type/Reason Admit Date/Time Date of Consultation: Nov 24, 2018 Type of Consult Endocrine Reason for Consultation Graves' disease with thyrotoxicosis-recurrent Requesting Provider: CHARITY MATA MD Hx of Present Illness Charming 58-year-old [place] gentleman. He reports roughly 10 years ago while in the [facility] he had presented with symptoms of thyrotoxicosis. He was placed on methimazole at 10 mg twice daily and had done well. He was maintained on treatment for 9 years but ultimately had his medications discontinued [address] Purdy. Over the last 1 year he has been off of medication treatment. He has developed symptoms consistent with thyrotoxicosis including changes in hair heat intolerance excessive sweating decreased endurance palpitations with minimal exertion and unplanned weight loss. Ultimately presented to the emergency room here and was admitted. He has a type II diabetic. Constitutional: other (Decreased energy and endurance) Eyes: no complaints (He is unaware of any abnormalities with his eyes, see my examination) ENT: no complaints Respiratory: no complaints Cardiovascular: no complaints Gastrointestinal: no complaints Genitourinary: no complaints Musculoskeletal: no complaints Past Medical History Medical History: diabetes, hyperthyroid (Graves' disease) Medications Current Medications Sodium Chloride 1,000 ml @ 125 mls/hr Q8H IV Last administered on 11/24/18at 13:54; Admin Dose 125 MLS/HR; Start 11/23/18 at 15:28 IV Flush (NS 3 ml) 3 ml PER PROTOCOL IV ; Start 11/23/18 at 15:30 Ondansetron HCl (Zofran Inj) 4 mg Q6H PRN IV NAUSEA AND/OR VOMITING; Start 11/23/18 at 15:30 Acetaminophen (Tylenol Tab) 650 mg Q6H PRN PO PAIN LEVEL 1-3 OR FEVER; Start 11/23/18 at 15:30 Acetaminophen (Tylenol Supp) 650 mg Q6H PRN [place] PAIN LEVEL 1-3 OR FEVER; Start 11/23/18 at 15:30 Acetaminophen/ Hydrocodone Bitart ([place] (5/325)) 1 tab Q6H PRN PO MODERATE PAIN LEVEL 4-6; Start 11/23/18 at 15:30 Morphine Sulfate (morphine) 2 mg Q4H PRN IV SEVERE PAIN LEVEL 7-10; Start 11/23/18 at 15:30 Docusate Sodium (Colace) 100 mg Q12H PRN PO CONSTIPATION; Start 11/23/18 at 15:30 Magnesium Hydroxide (Milk Of Mag) 30 ml DAILY PRN PO CONSTIPATION; Start 11/23/18 at 15:30 Bisacodyl (Dulcolax) 5 mg DAILY PRN PO CONSTIPATION; Start 11/23/18 at 15:30 Bisacodyl (Dulcolax Supp) 10 mg DAILY PRN [place] CONSTIPATION; Start 11/23/18 at 15:30 Sodium Biphosphate/ Sodium Phosphate (Fleet Enema) 133 ml DAILY PRN [place] CONSTI PATION; Start 11/23/18 at 15:30 Famotidine (Pepcid) 20 mg Q12 PO Last administered on 11/24/18at 08:05; Admin Dose 20 MG; Start 11/23/18 at 15:30 Enoxaparin Sodium (Lovenox) 40 mg DAILY SC Last administered on 11/24/18at 08:10; Admin Dose 40 MG; Start 11/24/18 at 09:00 Diagnostic Test (Pha) (Accu-Chek) 1 ea 02 XX Last administered on 11/24/18at 02:30; Admin Dose 1 EA; Start 11/24/18 at 02:00 Insulin Aspart (Novolog Insulin Pen) NOVOLOG *MODERATE* ALGORITHM WITH MEALS BEDTIME SC Last administered on 11/24/18at 13:19; Admin Dose 6 UNIT; Start 11/23/18 at 18:00 Miscellaneous Information 1 ea NOTE XX ; Start 11/23/18 at 16:30 Glucose (Glutose) 15 gm Q15M PRN PO DECREASED GLUCOSE; Start 11/23/18 at 16:30 Glucose (Glutose) 22.5 gm Q15M PRN PO DECREASED GLUCOSE; Start 11/23/18 at 16:30 Dextrose (D50w Syringe) 25 ml Q15M PRN IV DECREASED GLUCOSE; Start 11/23/18 at 16:30 Dextrose (D50w Syringe) 50 ml Q15M PRN IV DECREASED GLUCOSE; Start 11/23/18 at 16:30 Glucagon (Glucagen) 1 mg Q15M PRN IM DECREASED GLUCOSE; Start 11/23/18 at 16:30 Glucose (Glutose) 15 gm Q15M PRN BUCCAL DECREASED GLUCOSE; Start 11/23/18 at 16:30 Allergies: Coded Allergies: No Known Allergy (Unverified , 11/23/18) Past Surgical History Past Surgical Hx: noncontributory Family History Significant Family History: no pertinent family hx Social History Alcohol Use: none Smoking Status: Never smoker Drug Use: none Exam/Review of Systems Vital Signs Vitals Vital Signs Date Temp Pulse Resp B/P (MAP) Pulse Ox O2 O2 Flow FiO2 Time Delivery Rate 11/24/18 99.1 90 16 118/59 99 14:06 (78) 11/23/18 Room Air 22:05 Intake and Output 11/23/18 11/23/18 11/24/18 1515:00 23:00 07:00 IntakeIntake Total 50 ml 4000 ml 1600 ml BalanceBalance 50 ml 4000 ml 1600 ml Exam Constitutional: alert, oriented Head: normocephalic, atraumatic Eyes: nl conjunctiva, EOMI, nl lids, nl sclera, PERRL, other (There is no obvious proptosis, however he does have exophthalmos bilaterally 5 mm on the right 4 mm on the left) ENMT: nl external ears & nose, nl lips & teeth, nl nasal mucosa & septum Neck: supple, non-tender, thyromegaly (Her gland is smooth enlarged without nodules and has a venous) Respiratory: clear to auscultation, normal air movement Cardiovascular: regular rate and rhythm, nl pulses Gastrointestinal: soft, nl liver, spleen, non-tender Musculoskeletal: nl extremities to inspection, nl gait and stance Extremities: normal pulses Neurological: other (Positive fine high-speed frequency tremor) Medications Medications Current Medications Sodium Chloride 1,000 ml @ 125 mls/hr Q8H IV Last administered on 11/24/18at 13:54; Admin Dose 125 MLS/HR; Start 11/23/18 at 15:28 IV Flush (NS 3 ml) 3 ml PER PROTOCOL IV ; Start 11/23/18 at 15:30 Ondansetron HCl (Zofran Inj) 4 mg Q6H PRN IV NAUSEA AND/OR VOMITING; Start 11/23/18 at 15:30 Acetaminophen (Tylenol Tab) 650 mg Q6H PRN PO PAIN LEVEL 1-3 OR FEVER; Start 11/23/18 at 15:30 Acetaminophen (Tylenol Supp) 650 mg Q6H PRN [place] PAIN LEVEL 1-3 OR FEVER; Start 11/23/18 at 15:30 Acetaminophen/ Hydrocodone Bitart ([place] (5/325)) 1 tab Q6H PRN PO MODERATE PAIN LEVEL 4-6; Start 11/23/18 at 15:30 Morphine Sulfate (morphine) 2 mg Q4H PRN IV SEVERE PAIN LEVEL 7-10; Start 11/23/18 at 15:30 Docusate Sodium (Colace) 100 mg Q12H PRN PO CONSTIPATION; Start 11/23/18 at 15:30 Magnesium Hydroxide (Milk Of Mag) 30 ml DAILY PRN PO CONSTIPATION; Start 11/23/18 at 15:30 Bisacodyl (Dulcolax) 5 mg DAILY PRN PO CONSTIPATION; Start 11/23/18 at 15:30 Bisacodyl (Dulcolax Supp) 10 mg DAILY PRN [place] CONSTIPATION; Start 11/23/18 at 15:30 Sodium Biphosphate/ Sodium Phosphate (Fleet Enema) 133 ml DAILY PRN [place] CONSTIPATION; Start 11/23/18 at 15:30 Famotidine (Pepcid) 20 mg Q12 PO Last administered on 11/24/18at 08:05; Admin Dose 20 MG; Start 11/23/18 at 15:30 Enoxaparin Sodium (Lovenox) 40 mg DAILY SC Last administered on 11/24/18at 08:10; Admin Dose 40 MG; Start 11/24/18 at 09:00 Diagnostic Test (Pha) (Accu-Chek) 1 ea 02 XX Last administered on 11/24/18at 02:30; Admin Dose 1 EA; Start 11/24/18 at 02:00 Insulin Aspart (Novolog Insulin Pen) NOVOLOG *MODERATE* ALGORITHM WITH MEALS BEDTIME SC Last administered on 11/24/18at 13:19; Admin Dose 6 UNIT; Start 11/23/18 at 18:00 Miscellaneous Information 1 ea NOTE XX ; Start 11/23/18 at 16:30 Glucose (Glutose) 15 gm Q15M PRN PO DECREASED GLUCOSE; Start 11/23/18 at 16:30 Glucose (Glutose) 22.5 gm Q15M PRN PO DECREASED GLUCOSE; Start 11/23/18 at 16:30 Dextrose (D50w Syringe) 25 ml Q15M PRN IV DECREASED GLUCOSE; Start 11/23/18 at 16:30 Dextrose (D50w Syringe) 50 ml Q15M PRN IV DECREASED GLUCOSE; Start 11/23/18 at 16:30 Glucagon (Glucagen) 1 mg Q15M PRN IM DECREASED GLUCOSE; Start 11/23/18 at 16:30 Glucose (Glutose) 15 gm Q15M PRN BUCCAL DECREASED GLUCOSE; Start 11/23/18 at 16:30 ANA GARCIA MD Nov 24, 2018 15:01
[2018-11-24] MEDS ORDERED: METHIMAZOLE 5 MG TAB PO ONE (16:30)
--- NOTE | 2018-11-24 18:26 | NUR ---
End of shift summary: Patient in stable condition . V.S within noprmal limits .No s/s of any acute distress . consulted patient today ,start on Tapazole .Pending consult from Dr. Morrison . Culture for Influenza A&B sent to microbiology lab . Pending stool collection for H-Pylori . Full report will be given to next shift RN .Call light within reach , at bedside .
[2018-11-24 19:12] VITALS: BP 171/87; PULSE 107; RESP 18
--- NOTE | 2018-11-24 20:05 | CONS ---
Date/Time of Note Date/Time of Note DATE: 11/24/18 TIME: 19:53 Assessment/Plan Assessment/Plan Hospital Course 58-year-old male was brought to the emergency room by his family because of fever chills nausea and vomiting in addition to weight loss. Patient underwent a CT scan of the abdomen and pelvis and that showed: 1. No CT findings to explain the patient's symptoms. 2. Mild diffuse wall thickening of the urinary bladder may relate to incomplete distension and prostatomegaly resulting in urinary bladder outlet obstruction. Correlation with urinalysis is recommended to rule out cystitis. Therefore a urological consultation was requested The patient denies any dysuria he urinates about 3 times during the day and has no nocturia. No history of gross hematuria and his urinary stream is good. Urine culture so far no growth. Rectal exam shows soft prostate and it is not tender. There is no evidence of epididymitis on the physical examination. At the present I do not find any urological reason for for his fever unless his urine culture returns positive Result Diagram: 11/24/18 0533 11/24/18 0533 Results 24hrs Laboratory Tests Test 11/23/18 21:21 11/23/18 21:41 11/24/18 02:31 11/24/18 05:33 Lactic Acid Level 1.7 Bedside Glucose 200 193 White Blood Count 5.7 # Red Blood Count 3.41 L Hemoglobin 9.1 L Hematocrit 28.7 L Mean Corpuscular 84.2 Volume Mean Corpuscular 26.7 L Hemoglobin Mean Corpuscular 31.7 L Hemoglobin Concent Red Cell 16.3 H Distribution Width Platelet Count 158 Mean Platelet Volume 9.6 Immature 0.700 H Granulocytes % Neutrophils % Segmented 44 Neutrophils % (Manual) Lymphocytes % Lymphocytes % 34 (Manual) Monocytes % Monocytes % (Manual) 18 H Eosinophils % Eosinophils % 3 (Manual) Basophils % Promyelocytes % 1 H (Manual) Nucleated Red Blood 0.0 Cells % Immature 0.040 H Granulocytes # Neutrophils # Lymphocytes (Manual) 1.9 Lymphocytes # Monocytes # Monocytes # (Manual) 1.0 H Eosinophils # Basophils # Promyelocytes # 0.0 Nucleated Red Blood Cells # Platelet Estimate NORMAL Giant Platelets 3 H Polychromasia 3+ Hypochromasia 1+ Poikilocytosis 1+ Anisocytosis 1+ Sodium Level 140 Potassium Level 3.6 Chloride Level 105 Carbon Dioxide Level 28 Anion Gap 7 Blood Urea Nitrogen 9 Creatinine 0.71 Est Glomerular > 60 Filtrat Rate mL/min Glucose Level 160 Hemoglobin A1c 6.1 H Calcium Level 9.5 Phosphorus Level 3.6 Magnesium Level 1.4 L Iron Level 72 Total Iron Binding 256 Capacity Percent Iron 28 Saturation Ferritin 339.0 H Total Bilirubin 0.6 Direct Bilirubin 0.00 Indirect Bilirubin 0.6 Aspartate Amino 30 Transf (AST/SGOT) Alanine 20 Aminotransferase (AL T/SGPT) Alkaline Phosphatase 129 H Troponin I < 0.012 Total Protein 7.2 # Albumin 3.2 L Globulin 4.00 H Albumin/Globulin 0.80 Ratio Thyroid Stimulating < 0.015 L Hormone (TSH) Free Thyroxine 3.84 H Total 1.07 Triiodothyronine Test 11/24/18 08:06 11/24/18 13:15 11/24/18 13:16 11/24/18 17:23 Bedside Glucose 146 252 H 189 Lab Scanned Report LAB Consultation Date/Type/Reason Admit Date/Time November 23, 2018 Date of Consultation: Nov 24, 2018 Type of Consult Urology Reason for Consultation Benign prostatic hypertrophy and weight loss Requesting Provider: CHARITY MATA MD Hx of Present Illness 58-year-old male was brought to the emergency room by his family because of fever chills nausea and vomiting in addition to weight loss. Patient underwent a CT scan of the abdomen and pelvis and that showed: 1. No CT findings to explain the patient's symptoms. 2. Mild diffuse wall thickening of the urinary bladder may relate to incomplete distension and prostatomegaly resulting in urinary bladder outlet obstruction. Correlation with urinalysis is recommended to rule out cystitis. Therefore a urological consultation was requested The patient denies any dysuria he urinates about 3 times during the day and has no nocturia. No history of gross hematuria and his urinary stream is good. Constitutional: chills, febrile, other (Weight loss) Eyes: no complaints ENT: no complaints Respiratory: no complaints Cardiovascular: no complaints; No chest pain Gastrointestinal: pain, nausea, vomiting Genitourinary: No dysuria, No hematuria Musculoskeletal: no complaints Skin: no complaints Neurologic: no complaints Endocrine: no complaints Lymphatic: no complaints Psychological: no complaints Past Medical History Medical History: diabetes, hyperthyroid (Graves' disease) Medications Current Medications Sodium Chloride 1,000 ml @ 125 mls/hr Q8H IV Last administered on 11/24/18at 13:54; Admin Dose 125 MLS/HR; Start 11/23/18 at 15:28 IV Flush (NS 3 ml) 3 ml PER PROTOCOL IV ; Start 11/23/18 at 15:30 Ondansetron HCl (Zofran Inj) 4 mg Q6H PRN IV NAUSEA AND/OR VOMITING Last administered on 11/24/18at 19:28; Admin Dose 4 MG; Start 11/23/18 at 15:30 Acetaminophen (Tylenol Tab) 650 mg Q6H PRN PO PAIN LEVEL 1-3 OR FEVER; Start 11/23/18 at 15:30 Acetaminophen (Tylenol Supp) 650 mg Q6H PRN [place] PAIN LEVEL 1-3 OR FEVER; Start 11/23/18 at 15:30 Acetaminophen/ Hydrocodone Bitart ([place] (5/325)) 1 tab Q6H PRN PO MODERATE PAIN LEVEL 4-6 Last administered on 11/24/18at 19:32; Admin Dose 1 TAB; Start 11/23/18 at 15:30 Morphine Sulfate (morphine) 2 mg Q4H PRN IV SEVERE PAIN LEVEL 7-10; Start 11/23/18 at 15:30 Docusate Sodium (Colace) 100 mg Q12H PRN PO CONSTIPATION; Start 11/23/18 at 15:30 Magnesium Hydroxide (Milk Of Mag) 30 ml DAILY PRN PO CONSTIPATION; Start 11/23/18 at 15:30 Bisacodyl (Dulcolax) 5 mg DAILY PRN PO CONSTIPATION; Start 11/23/18 at 15:30 Bisacodyl (Dulcolax Supp) 10 mg DAILY PRN [place] CONSTIPATION; Start 11/23/18 at 15:30 Sodium Biphosphate/ Sodium Phosphate (Fleet Enema) 133 ml DAILY PRN [place] CONSTIPATION; Start 11/23/18 at 15:30 Famotidine (Pepcid) 20 mg Q12 PO Last administered on 11/24/18at 08:05; Admin Dose 20 MG; Start 11/23/18 at 15:30 Enoxaparin Sodium (Lovenox) 40 mg DAILY SC Last administered on 11/24/18at 08:10; Admin Dose 40 MG; Start 11/24/18 at 09:00 Diagnostic Test (Pha) (Accu-Chek) 1 ea 02 XX Last administered on 11/24/18at 02:30; Admin Dose 1 EA; Start 11/24/18 at 02:00 Insulin Aspart (Novolog Insulin Pen) NOVOLOG *MODERATE* ALGORITHM WITH MEALS BEDTIME SC Last administered on 11/24/18at 17:27; Admin Dose 4 UNIT; Start 11/23/18 at 18:00 Miscellaneous Information 1 ea NOTE XX ; Start 11/23/18 at 16:30 Glucose (Glutose) 15 gm Q15M PRN PO DECREASED GLUCOSE; Start 11/23/18 at 16:30 Glucose (Glutose) 22.5 gm Q15M PRN PO DECREASED GLUCOSE; Start 11/23/18 at 16:30 Dextrose (D50w Syringe) 25 ml Q15M PRN IV DECREASED GLUCOSE; Start 11/23/18 at 16:30 Dextrose (D50w Syringe) 50 ml Q15M PRN IV DECREASED GLUCOSE; Start 11/23/18 at 16:30 Glucagon (Glucagen) 1 mg Q15M PRN IM DECREASED GLUCOSE; Start 11/23/18 at 16:30 Glucose (Glutose) 15 gm Q15M PRN BUCCAL DECREASED GLUCOSE; Start 11/23/18 at 16:30 Methimazole (Tapazole) 10 mg BID PO ; Start 11/24/18 at 21:00 Allergies: Coded Allergies: No Known Allergy (Unverified , 11/23/18) Past Surgical History Past Surgical Hx: noncontributory Social History Alcohol Use: none Smoking Status: Never smoker Drug Use: none Exam/Review of Systems Vital Signs Vitals Vital Signs Date Temp Pulse Resp B/P (MAP) Pulse Ox O2 O2 Flow FiO2 Time Delivery Rate 11/24/18 101.6 107 18 171/87 99 19:12 (115) 11/23/18 Room Air 22:05 Intake and Output 11/23/18 11/23/18 11/24/18 1515:00 23:00 07:00 IntakeIntake Total 50 ml 4000 ml 1600 ml BalanceBalance 50 ml 4000 ml 1600 ml Exam Constitutional: alert, other (Presently he is febrile) Psych: no complaints Head: normocephalic Eyes: nl conjunctiva ENMT: nl external ears & nose Neck: supple Respiratory: normal air movement; No wheezing Cardiovascular: No jugular venous distention (JVD) Gastrointestinal: soft, non-tender Genitourinary - Male: nl penis, nl scrotum, other (Rectal exam soft prostate not large) Musculoskeletal: nl extremities to inspection Extremities: No calf tenderness Neurological: nl mental status Skin: nl turgor Medications Medications Current Medications Sodium Chloride 1,000 ml @ 125 mls/hr Q8H IV Last administered on 11/24/18at 13:54; Admin Dose 125 MLS/HR; Start 11/23/18 at 15:28 IV Flush (NS 3 ml) 3 ml PER PROTOCOL IV ; Start 11/23/18 at 15:30 Ondansetron HCl (Zofran Inj) 4 mg Q6H PRN IV NAUSEA AND/OR VOMITING Last administered on 11/24/18at 19:28; Admin Dose 4 MG; Start 11/23/18 at 15:30 Acetaminophen (Tylenol Tab) 650 mg Q6H PRN PO PAIN LEVEL 1-3 OR FEVER; Start 11/23/18 at 15:30 Acetaminophen (Tylenol Supp) 650 mg Q6H PRN [place] PAIN LEVEL 1-3 OR FEVER; Start 11/23/18 at 15:30 Acetaminophen/ Hydrocodone Bitart ([place] (5/325)) 1 tab Q6H PRN PO MODERATE PAIN LEVEL 4-6 Last administered on 11/24/18at 19:32; Admin Dose 1 TAB; Start 11/23/18 at 15:30 Morphine Sulfate (morphine) 2 mg Q4H PRN IV SEVERE PAIN LEVEL 7-10; Start 11/23/18 at 15:30 Docusate Sodium (Colace) 100 mg Q12H PRN PO CONSTIPATION; Start 11/23/18 at 15:30 Magnesium Hydroxide (Milk Of Mag) 30 ml DAILY PRN PO CONSTIPATION; Start 11/23/18 at 15:30 Bisacodyl (Dulcolax) 5 mg DAILY PRN PO CONSTIPATION; Start 11/23/18 at 15:30 Bisacodyl (Dulcolax Supp) 10 mg DAILY PRN [place] CONSTIPATION; Start 11/23/18 at 15:30 Sodium Biphosphate/ Sodium Phosphate (Fleet Enema) 133 ml DAILY PRN [place] CONSTIPATION; Start 11/23/18 at 15:30 Famotidine (Pepcid) 20 mg Q12 PO Last administered on 11/24/18at 08:05; Admin Dose 20 MG; Start 11/23/18 at 15:30 Enoxaparin Sodium (Lovenox) 40 mg DAILY SC Last administered on 11/24/18at 08:10; Admin Dose 40 MG; Start 11/24/18 at 09:00 Diagnostic Test (Pha) (Accu-Chek) 1 ea 02 XX Last administered on 11/24/18at 02 :30; Admin Dose 1 EA; Start 11/24/18 at 02:00 Insulin Aspart (Novolog Insulin Pen) NOVOLOG *MODERATE* ALGORITHM WITH MEALS BEDTIME SC Last administered on 11/24/18at 17:27; Admin Dose 4 UNIT; Start 11/23/18 at 18:00 Miscellaneous Information 1 ea NOTE XX ; Start 11/23/18 at 16:30 Glucose (Glutose) 15 gm Q15M PRN PO DECREASED GLUCOSE; Start 11/23/18 at 16:30 Glucose (Glutose) 22.5 gm Q15M PRN PO DECREASED GLUCOSE; Start 11/23/18 at 16:30 Dextrose (D50w Syringe) 25 ml Q15M PRN IV DECREASED GLUCOSE; Start 11/23/18 at 16:30 Dextrose (D50w Syringe) 50 ml Q15M PRN IV DECREASED GLUCOSE; Start 11/23/18 at 16:30 Glucagon (Glucagen) 1 mg Q15M PRN IM DECREASED GLUCOSE; Start 11/23/18 at 16:30 Glucose (Glutose) 15 gm Q15M PRN BUCCAL DECREASED GLUCOSE; Start 11/23/18 at 16:30 Methimazole (Tapazole) 10 mg BID PO ; Start 11/24/18 at 21:[address] scan of the abdomen and pelvis: 1. No CT findings to explain the patient's symptoms. 2. Mild diffuse wall thickening of the urinary bladder may relate to incomplete distension and prostatomegaly resulting in urinary bladder outlet obstruction. Correlation with urinalysis is recommended to rule out cystitis. YESSICA MANRIQUEZ MD Nov 24, 2018 20:03
[2018-11-24 20:10] VITALS: BP 120/65; PULSE 97; RESP 18
[2018-11-24] MEDS: METHIMAZOLE 5 MG TAB PO SCH (20:42)
[2018-11-24] MEDS ORDERED: MAGNESIUM SULFATE 3 GM in SOD CHLORIDE 0.9% 100 ML IVPB ONE (23:59)
[2018-11-25 01:02] VITALS: BP 129/72; PULSE 88; RESP 18
[2018-11-25] MEDS: ACCU-CHEK XX SCH (02:30)
--- NOTE | 2018-11-25 04:00 | NUR ---
Shift Summary Patient A/Ox4. Ambulating with steady gait. All scheduled medications administered. Zofran x1 given for nausea. Dr. Kerns notified patient's vital signs and screened "Sepsis Risk." Max oral temperature 101.6, cooling measures applied. Patient declined Tylenol, preferred [place] for temp and pain. New IV placed to left forearm. Dr. Ahumada at bedside last night. Blood glucose controlled, HS snack provided. No Orders received from MD. Mg 1.4, replaced with Mg 3gm IVPB. IVF infusing. Pending stool collection for H-Pylori/Occult blood. Hourly rounding done. Patient's safety maintained. Daughter in-law at bedside throughout shift. Will endorse plan of care to oncoming nurse.
[2018-11-25] MEDS: SOD CHLORIDE 0.9% 1,000 ML IV SCH ×4 (07:28→22:44)
[2018-11-25 07:32] VITALS: BP 100/57; PULSE 94; RESP 16
[2018-11-25] MEDS: INSULIN ASPART [NOVOLOG] 3 ML PEN SC SCH ×4 (08:00→20:37)
[2018-11-25] MEDS: FAMOTIDINE 20 MG TAB PO SCH ×2 (08:03→20:31)
[2018-11-25] MEDS: METHIMAZOLE 5 MG TAB PO SCH ×2 (08:03→20:34)
[2018-11-25] MEDS: ENOXAPARIN 40 MG/0.4 ML SYG SC SCH (08:05)
--- NOTE | 2018-11-25 09:54 | RADRPT ---
Echocardiogram Report Patient Name: JOSE GALINDO Gender: Male Date: 1960 Study Date: 24-Nov-2018 Tin Pourer: Zach Walker [facility] Location: [id number] Ref. Physician: CHARITY MATA Quality: Adequate Procedures: Transthoracic echocardiogram with complete 2D, M-Mode, and doppler examination. Indications: Abnormal EKG . pr depression. 2D/M Mode Doppler Measurement Value Normal Ranges Measurement Value Normal Ranges LVIDd 2D 3.5 3.5 - 5.6 cm AV Peak Kevin 1.2 m/sec LVIDs 2D 2.2 2.1 - 4.1 cm AV Peak PG 6.0 mmHg LVPWd 2D 0.9 0.6 - 1.1 cm LVOT Peak Kevin 0.7 m/sec IVSd 2D 0.8 0.6 - 1.1 cm LVOT Peak PG 2.0 mmHg AoR Diam 2D 2.9 2.0 - 3.7 cm MV E Peak Kevin 0.9 m/sec LA/Ao 2D 1 0 - 1 MV A Peak Kevin 0.4 m/sec LA Dimen 2D 3.9 2.3 - 4.0 cm MV E/A 2.4 MV Decel Time 120 msec Lat E` Kevin 0.2 m/sec Lateral E/E` 5.4 Med E` Kevin 0.1 m/sec MV E/A 2.4 PV Peak Kevin 1.0 m/sec PV Peak PG 4.0 mmHg Findings Left Ventricle: Normal left ventricular systolic function. Normal left ventricular cavity size. Normal left ventricular wall thickness. Ejection fraction is visually estimated at 60 %. Tissue Doppler/Mitral Doppler indices are within normal limits. Right Ventricle: Normal right ventricular size. Normal right ventricular systolic function. Left Atrium: The left atrium is normal in size. Right Atrium: The right atrium is normal in size. Mitral Valve: Normal appearance of the mitral valve. No mitral valve regurgitation is seen. Aortic Valve: No aortic regurgitation. Tricuspid Valve: Normal appearance of the tricuspid valve. Unable to obtain RVSP due to minimal presence of tricuspid regurgitation. No evidence of tricuspid regurgitation. Pericardium: Normal pericardium with no significant pericardial effusion. Aorta: Normal aortic root. IVC: Normal size and normal respiratory collapse consistent with normal right atrial pressure. Conclusions Normal left ventricular systolic function. Normal left ventricular cavity size. Normal left ventricular wall thickness. Ejection fraction is visually estimated at 60 %. Tissue Doppler/Mitral Doppler indices are within normal limits. Normal appearance of the tricuspid valve. Unable to obtain RVSP due to minimal presence of tricuspid regurgitation. No evidence of tricuspid regurgitation. Electronically Signed By: Jairo Piper 25-Nov-2018 09:54:07 -0800 Patient Name: JOSE GALINDO Study Date: 24-Nov-2018 [id number]
--- NOTE | 2018-11-25 10:35 | CONS ---
Date/Time of Note Date/Time of Note DATE: 11/25/18 TIME: 10:31 Assessment/Plan Assessment/Plan Problems: (1) Graves' disease with exophthalmos Status: Chronic Comment: Is now on treatment. Please note his fevers are not related to the hyperthyroidism. Fevers and thyrotoxicosis are also has thyroid storm and he does not have thyroid storm. His source of fevers will be some other detail (2) Diabetes mellitus type 2 in nonobese Status: Chronic Comment: Adequate glycemic control Result Diagram: 11/25/18 0434 11/25/18 0434 Results 24hrs Laboratory Tests Test 11/24/18 13:15 11/24/18 13:16 11/24/18 17:23 11/24/18 20:43 Lab Scanned Report LAB Bedside Glucose 252 H 189 187 Test 11/25/18 02:28 11/25/18 04:34 11/25/18 08:07 Bedside Glucose 128 129 White Blood Count 6.3 Red Blood Count 3.60 L Hemoglobin 9.6 L Hematocrit 29.9 L Mean Corpuscular 83.1 Volume Mean Corpuscular 26.7 L Hemoglobin Mean Corpuscular 32.1 Hemoglobin Concent Red Cell 16.1 H Distribution Width Platelet Count 178 Mean Platelet Volume 10.2 Immature 0.500 H Granulocytes % Neutrophils % 42.2 Lymphocytes % 33.5 Monocytes % 21.4 H Eosinophils % 2.1 Basophils % 0.3 Nucleated Red Blood 0.0 Cells % Immature 0.030 Granulocytes # Neutrophils # 2.7 Lymphocytes # 2.1 Monocytes # 1.3 H Eosinophils # 0.1 Basophils # 0.0 Nucleated Red Blood 0.0 Cells # Erythrocyte 110 H Sedimentation Rate Sodium Level 138 Potassium Level 4.3 Chloride Level 100 Carbon Dioxide Level 28 Anion Gap 10 Blood Urea Nitrogen 8 Creatinine 0.73 Est Glomerular > 60 Filtrat Rate mL/min Glucose Level 127 Calcium Level 10.0 Magnesium Level 2.1 C-Reactive Protein 5.7 H Consultation Date/Type/Reason Admit Date/Time Nov 23, 2018 at 14:02 Initial Consult Date 11/24/18 Type of Consult Endocrine Reason for Consultation Graves' disease with thyrotoxicosis Requesting Provider: CHARITY MATA MD 24 HR Interval Summary Free Text/Dictation No changes Constitutional: febrile Detailed Summary Endocrine: temp intolerance, other (Positive tremor) Exam/Review of Systems Vital Signs Vitals Vital Signs Date Temp Pulse Resp B/P (MAP) Pulse Ox O2 O2 Flow FiO2 Time Delivery Rate 11/25/18 99.0 94 16 100/57 99 07:32 (71) 11/23/18 Room Air 22:05 Intake and Output 11/24/18 11/24/18 11/25/18 1515:00 23:00 07:00 IntakeIntake Total 1680 ml 915 ml 1381 ml BalanceBalance 1680 ml 915 ml 1381 ml Exam No change in exam Medications Medications Current Medications Sodium Chloride 1,000 ml @ 125 mls/hr Q8H IV Last administered on 11/24/18at 23:40; Admin Dose 125 MLS/HR; Start 11/23/18 at 15:28 IV Flush (NS 3 ml) 3 ml PER PROTOCOL IV ; Start 11/23/18 at 15:30 Ondansetron HCl (Zofran Inj) 4 mg Q6H PRN IV NAUSEA AND/OR VOMITING Last administered on 11/24/18at 19:28; Admin Dose 4 MG; Start 11/23/18 at 15:30 Acetaminophen (Tylenol Tab) 650 mg Q6H PRN PO PAIN LEVEL 1-3 OR FEVER; Start 11/23/18 at 15:30 Acetaminophen (Tylenol Supp) 650 mg Q6H PRN [place] PAIN LEVEL 1-3 OR FEVER; Start 11/23/18 at 15:30 Acetaminophen/ Hydrocodone Bitart ([place] (5/325)) 1 tab Q6H PRN PO MODERATE PAIN LEVEL 4-6 Last administered on 11/24/18at 19:32; Admin Dose 1 TAB; Start 11/23/18 at 15:30 Morphine Sulfate (morphine) 2 mg Q4H PRN IV SEVERE PAIN LEVEL 7-10; Start 11/23/18 at 15:30 Docusate Sodium (Colace) 100 mg Q12H PRN PO CONSTIPATION; Start 11/23/18 at 15:30 Magnesium Hydroxide (Milk Of Mag) 30 ml DAILY PRN PO CONSTIPATION; Start 11/23/18 at 15:30 Bisacodyl (Dulcolax) 5 mg DAILY PRN PO CONSTIPATION; Start 11/23/18 at 15:30 Bisacodyl (Dulcolax Supp) 10 mg DAILY PRN [place] CONSTIPATION; Start 11/23/18 at 15:30 Sodium Biphosphate/ Sodium Phosphate (Fleet Enema) 133 ml DAILY PRN [place] CONSTIPATION; Start 11/23/18 at 15:30 Famotidine (Pepcid) 20 mg Q12 PO Last administered on 11/25/18at 08:03; Admin Dose 20 MG; Start 11/23/18 at 15:30 Enoxaparin Sodium (Lovenox) 40 mg DAILY SC Last administered on 11/25/18at 08:05; Admin Dose 40 MG; Start 11/24/18 at 09:00 Diagnostic Test (Pha) (Accu-Chek) 1 ea 02 XX Last administered on 11/25/18at 02:30; Admin Dose 1 EA; Start 11/24/18 at 02:00 Insulin Aspart (Novolog Insulin Pen) NOVOLOG *MODERATE* ALGORITHM WITH MEALS BEDTIME SC Last administered on 11/24/18at 20:49; Admin Dose 1 UNIT; Start 11/23/18 at 18:00 Miscellaneous Information 1 ea NOTE XX ; Start 11/23/18 at 16:30 Glucose (Glutose) 15 gm Q15M PRN PO DECREASED GLUCOSE; Start 11/23/18 at 16:30 Glucose (Glutose) 22.5 gm Q15M PRN PO DECREASED GLUCOSE; Start 11/23/18 at 16:30 Dextrose (D50w Syringe) 25 ml Q15M PRN IV DECREASED GLUCOSE; Start 11/23/18 at 16:30 Dextrose (D50w Syringe) 50 ml Q15M PRN IV DECREASED GLUCOSE; Start 11/23/18 at 16:30 Glucagon (Glucagen) 1 mg Q15M PRN IM DECREASED GLUCOSE; Start 11/23/18 at 16:30 Glucose (Glutose) 15 gm Q15M PRN BUCCAL DECREASED GLUCOSE; Start 11/23/18 at 16:30 Methimazole (Tapazole) 10 mg BID PO Last administered on 11/25/18at 08:03; Admin Dose 10 MG; Start 11/24/18 at 21:00 ANA GARCIA MD Nov 25, 2018 10:35
[2018-11-25 15:10] VITALS: BP 153/73; PULSE 109; RESP 16
--- NOTE | 2018-11-25 15:40 | RADRPT ---
Vent Rate: 99 bpm RR Interval: 0 msec CO Interval: 186 msec QRS Duration: 80 msec QT Interval: 344 msec QTC Interval: 441 msec P-R-T [place]: 18 - 2 - 36 degrees Normal sinus rhythm Normal ECG Electronically Signed By: Myles Lockhart [id number]
--- NOTE | 2018-11-25 19:07 | PN ---
Date/Time of Note Date/Time of Note DATE: 11/25/18 TIME: 19:05 Assessment/Plan VTE Prophylaxis Risk score (from Ns)>0 risk: 2 SCD applied (from Ns): Yes SCD contraindicated: low risk/ambulating Pharmacological prophylaxis: LMWH Lines/Catheters IV Catheter Type (from Nrs): Peripheral IV Assessment/Plan Hospital Course Assessment and plan 1. Fever ro viral illness/ gastritis stable, follow-up on H. pylori. Likely noninfectious in origin 2. Wt loss, possible hypercalcemia, concerning for malignancy. r/o infectious process. Symptomatic hyperthyroidism, started therapy 3. Diabetes/ metabolic syndrome 4. Anemia check occult iron studies possibly of chronic disease 5. BPH bladder outlet obstruction? urology consultation appreciated S: 11/24 low-grade fever overnight. Nausea vomiting with one episode of hematemesis. No cough dyspnea hemoptysis sore throat. No abdominal pain dysuria /21: No events O: Vss, except low-grade fever and st. Mild [place] depression on EKG, asymptomatic Physical exam No pallor Regular no murmur rub gallop Clear Benign cachexia No edema Result Diagram: 11/25/18 0434 11/25/18 0434 Results 24hrs Laboratory Tests Test 11/24/18 20:43 11/25/18 02:28 11/25/18 04:34 11/25/18 08:07 Bedside Glucose 187 128 129 White Blood Count 6.3 Red Blood Count 3.60 L Hemoglobin 9.6 L Hematocrit 29.9 L Mean Corpuscular 83.1 Volume Mean Corpuscular 26.7 L Hemoglobin Mean Corpuscular 32.1 Hemoglobin Concent Red Cell 16.1 H Distribution Width Platelet Count 178 Mean Platelet Volume 10.2 Immature 0.500 H Granulocytes % Neutrophils % 42.2 Lymphocytes % 33.5 Monocytes % 21.4 H Eosinophils % 2.1 Basophils % 0.3 Nucleated Red Blood 0.0 Cells % Immature 0.030 Granulocytes # Neutrophils # 2.7 Lymphocytes # 2.1 Monocytes # 1.3 H Eosinophils # 0.1 Basophils # 0.0 Nucleated Red Blood 0.0 Cells # Erythrocyte 110 H Sedimentation Rate Sodium Level 138 Potassium Level 4.3 Chloride Level 100 Carbon Dioxide Level 28 Anion Gap 10 Blood Urea Nitrogen 8 Creatinine 0.73 Est Glomerular > 60 Filtrat Rate mL/min Glucose Level 127 Calcium Level 10.0 Magnesium Level 2.1 C-Reactive Protein 5.7 H Test 11/25/18 12:09 11/25/18 17:07 Bedside Glucose 175 251 H Exam/Review of Systems Vital Signs Vitals Vital Signs Date Temp Pulse Resp B/P (MAP) Pulse Ox O2 O2 Flow FiO2 Time Delivery Rate 11/25/18 98.6 109 16 153/73 100 15:10 (99) 11/23/18 Room Air 22:05 Intake and Output 11/24/18 11/24/18 11/25/18 1515:00 23:00 07:00 IntakeIntake Total 1680 ml 915 ml 1381 ml BalanceBalance 1680 ml 915 ml 1381 ml Medications Medications Current Medications Sodium Chloride 1,000 ml @ 75 mls/hr [id number] IV Last administered on 11/25/18at 10:34; Admin Dose 125 MLS/HR; Start 11/23/18 at 15:28 IV Flush (NS 3 ml) 3 ml PER PROTOCOL IV ; Start 11/23/18 at 15:30 Ondansetron HCl (Zofran Inj) 4 mg Q6H PRN IV NAUSEA AND/OR VOMITING Last administered on 11/24/18at 19:28; Admin Dose 4 MG; Start 11/23/18 at 15:30 Acetaminophen (Tylenol Tab) 650 mg Q6H PRN PO PAIN LEVEL 1-3 OR FEVER; Start at 15:30 Acetaminophen (Tylenol Supp) 650 mg Q6H PRN [place] PAIN LEVEL 1-3 OR FEVER; Start 11/23/18 at 15:30 Acetaminophen/ Hydrocodone Bitart ([place] (5/325)) 1 tab Q6H PRN PO MODERATE PAIN LEVEL 4-6 Last administered on 11/24/18at 19:32; Admin Dose 1 TAB; Start 11/23/18 at 15:30 Morphine Sulfate (morphine) 2 mg Q4H PRN IV SEVERE PAIN LEVEL 7-10; Start 11/23/18 at 15:30 Docusate Sodium (Colace) 100 mg Q12H PRN PO CONSTIPATION; Start 11/23/18 at 15:30 Magnesium Hydroxide (Milk Of Mag) 30 ml DAILY PRN PO CONSTIPATION; Start 11/23/18 at 15:30 Bisacodyl (Dulcolax) 5 mg DAILY PRN PO CONSTIPATION; Start 11/23/18 at 15:30 Bisacodyl (Dulcolax Supp) 10 mg DAILY PRN [place] CONSTIPATION; Start 11/23/18 at 15:30 Sodium Biphosphate/ Sodium Phosphate (Fleet Enema) 133 ml DAILY PRN [place] CONSTIPATION; Start 11/23/18 at 15:30 Famotidine (Pepcid) 20 mg Q12 PO Last administered on 11/25/18at 08:03; Admin Dose 20 MG; Start 11/23/18 at 15:30 Enoxaparin Sodium (Lovenox) 40 mg DAILY SC Last administered on 11/25/18at 08:05; Admin Dose 40 MG; Start 11/24/18 at 09:00 Diagnostic Test (Pha) (Accu-Chek) 1 ea 02 XX Last administered on 11/25/18at 02:30; Admin Dose 1 EA; Start 11/24/18 at 02:00 Insulin Aspart (Novolog Insulin Pen) NOVOLOG *MODERATE* ALGORITHM WITH MEALS BEDTIME SC Last administered on 11/25/18at 17:09; Admin Dose 6 UNIT; Start 11/23/18 at 18:00 Miscellaneous Information 1 ea NOTE XX ; Start 11/23/18 at 16:30 Glucose (Glutose) 15 gm Q15M PRN PO DECREASED GLUCOSE; Start 11/23/18 at 16:30 Glucose (Glutose) 22.5 gm Q15M PRN PO DECREASED GLUCOSE; Start 11/23/18 at 16:30 Dextrose (D50w Syringe) 25 ml Q15M PRN IV DECREASED GLUCOSE; Start 11/23/18 at 16:30 Dextrose (D50w Syringe) 50 ml Q15M PRN IV DECREASED GLUCOSE; Start 11/23/18 at 16:30 Glucagon (Glucagen) 1 mg Q15M PRN IM DECREASED GLUCOSE; Start 11/23/18 at 16:30 Glucose (Glutose) 15 gm Q15M PRN BUCCAL DECREASED GLUCOSE; Start 11/23/18 at 16:30 Methimazole (Tapazole) 10 mg BID PO Last administered on 11/25/18at 08:03; Admin Dose 10 MG; Start 11/24/18 at 21:00 CHARITY MATA MD Nov 25, 2018 19:07
[2018-11-25 19:23] VITALS: BP 132/65; PULSE 90; RESP 18
[2018-11-26] MEDS: ACCU-CHEK XX SCH (02:00)
[2018-11-26 02:03] VITALS: BP 118/61; PULSE 102; RESP 18
[2018-11-26] MEDS: SOD CHLORIDE 0.9% 1,000 ML IV SCH ×2 (04:19→13:06)
--- NOTE | 2018-11-26 05:46 | NUR ---
Shift Summary Patient in stable condition. No acute episodes throughout shift. Ambulating with steady gait. Vital signs WNL. All scheduled medications administered. IVF infusing. Blood glucose controlled, HS snack provided. Pending stool collection for H-Pylori/Occult blood. Hourly rounding done. Patient's safety maintained. Spouse at bedside. Will endorse plan of care to oncoming nurse.
[2018-11-26 07:59] VITALS: BP 125/66; PULSE 91; RESP 18
[2018-11-26] MEDS: INSULIN ASPART [NOVOLOG] 3 ML PEN SC SCH ×4 (08:00→20:54)
[2018-11-26] MEDS: FAMOTIDINE 20 MG TAB PO SCH ×2 (08:39→20:43)
[2018-11-26] MEDS: METHIMAZOLE 5 MG TAB PO SCH ×2 (08:40→20:44)
[2018-11-26] MEDS: ENOXAPARIN 40 MG/0.4 ML SYG SC SCH (08:42)
[2018-11-26] MEDS: DOCUSATE SODIUM 100 MG CAP PO PRN ×2 (09:01→20:52)
[2018-11-26] MEDS: BISACODYL (EC) 5 MG TAB PO PRN (09:01)
--- NOTE | 2018-11-26 11:57 | NUR ---
CM NOTE: OUTPATIENT FOLLOW UP Order for follow-up with endocrine faxed to DARÍO Conway at [facility] (P:[phone], F:[phone]). [facility] to f/u with pt for appointment. Chang Mead RN CM [id number]
[2018-11-26 14:00] VITALS: BP 158/75; PULSE 109; RESP 20
--- NOTE | 2018-11-26 16:40 | PN ---
Date/Time of Note Date/Time of Note DATE: 11/26/18 TIME: 16:38 Assessment/Plan VTE Prophylaxis Risk score (from Nsg)>0 risk: 1 SCD applied (from Nsg): No SCD contraindicated: low risk/ambulating Pharmacological prophylaxis: LMWH Lines/Catheters IV Catheter Type (from Nrs): Peripheral IV Urinary Cath still in place: No Assessment/Plan Hospital Course Assessment and plan 1. Fever ro viral illness/ gastritis stable, follow-up on H. pylori. Likely no ninfectious in origin? Probably home tomorrow if temperature improved. Otherwise consider outpatient rheumatology for fever of unknown origin. 2. Wt loss, possible hypercalcemia, concerned initially for malignancy/ infectious process. likely due to symptomatic hyperthyroidism, started therapy. Okay to go home from endocrine standpoint 3. Diabetes/ metabolic syndrome 4. Anemia check occult iron studies possibly of chronic disease, consider follow-up with GI/ Dr. Marcial 5. BPH bladder outlet obstruction? urology consultation appreciated 6. New-onset symptomatic hyperthyroidism, stable continue therapy. Outpatient endocrinology 2 weeks S: 11/24 low-grade fever overnight. Nausea vomiting with one episode of hematemesis. No cough dyspnea hemoptysis sore throat. No abdominal pain d ys /: No events 11/26: No events O: Vss, except low-grade fever and st. Mild [place] depression on EKG, asymptomatic Physical exam No pallor Regular no murmur rub gallop Clear Benign cachexia No edema Result Diagram: 11/25/18 0434 11/25/18 0434 Results 24hrs Laboratory Tests Test 11/25/18 17:07 11/25/18 20:30 11/26/18 08:38 11/26/18 12:26 Bedside Glucose 251 H 135 133 215 Exam/Review of Systems Vital Signs Vitals Vital Signs Date Temp Pulse Resp B/P (MAP) Pulse Ox O2 O2 Flow FiO2 Time Delivery Rate 11/26/18 99.9 109 20 158/75 99 Room Air 14:00 (102) Intake and Output 11/25/18 11/25/18 11/26/18 1515:00 23:00 07:00 IntakeIntake Total 1960 ml 1200 ml 1050 ml BalanceBalance 1960 ml 1200 ml 1050 ml Medications Medications Current Medications Sodium Chloride 1,000 ml @ 75 mls/hr [id number] IV Last administered on 11/26/18 13:06; Admin Dose 75 MLS/HR; Start 11/23/18 at 15:28 IV Flush (NS 3 ml) 3 ml PER PROTOCOL IV ; Start 11/23/18 at 15:30 Ondansetron HCl (Zofran Inj) 4 mg Q6H PRN IV NAUSEA AND/OR VOMITING Last administered on 11/24/18at 19:28; Admin Dose 4 MG; Start 11/23/18 at 15:30 Acetaminophen (Tylenol Tab) 650 mg Q6H PRN PO PAIN LEVEL 1-3 OR FEVER; Start 11/23/18 at 15:30 Acetaminophen (Tylenol Supp) 650 mg Q6H PRN [place] PAIN LEVEL 1-3 OR FEVER; Start 11/23/18 at 15:30 Acetaminophen/ Hydrocodone Bitart ([place] (5/325)) 1 tab Q6H PRN PO MODERATE PAIN LEVEL 4-6 Last administered on 11/24/18at 19:32; Admin Dose 1 TAB; Start 11/23/18 at 15:30 Morphine Sulfate (morphine) 2 mg Q4H PRN IV SEVERE PAIN LEVEL 7-10; Start 11/23/18 at 15:30 Docusate Sodium (Colace) 100 mg Q12H PRN PO CONSTIPATION Last administered on 11/26/18 09:01; Admin Dose 100 MG; Start 11/23/18 at 15:30 Magnesium Hydroxide (Milk Of Mag) 30 ml DAILY PRN PO CONSTIPATION; Start 11/23/18 at 15:30 Bisacodyl (Dulcolax) 5 mg DAILY PRN PO CONSTIPATION Last administered on 11/26/18at 09:01; Admin Dose 5 MG; Start 11/23/18 at 15:30 Bisacodyl (Dulcolax Supp) 10 mg DAILY PRN [place] CONSTIPATION Last administered on 11/26/18at 12:34; Admin Dose 10 MG; Start 11/23/18 at 15:30 Sodium Biphosphate/ Sodium Phosphate (Fleet Enema) 133 ml DAILY PRN [place] CONSTIPATION; Start 11/23/18 at 15:30 Famotidine (Pepcid) 20 mg Q12 PO Last administered on 11/26/18 08:39; Admin Dose 20 MG; Start 11/23/18 at 15:30 Enoxaparin Sodium (Lovenox) 40 mg DAILY SC Last administered on 11/26/18at 08:42; Admin Dose 40 MG; Start 11/24/18 at 09:00 Diagnostic Test (Pha) (Accu-Chek) 1 ea 02 XX Last administered on 11/25/18at 02:30; Admin Dose 1 EA; Start 11/24/18 at 02:00 Insulin Aspart (Novolog Insulin Pen) NOVOLOG *MODERATE* ALGORITHM WITH MEALS BEDTIME SC Last administered on 11/26/18at 12:37; Admin Dose 4 UNIT; Start 11/05 07/24 at 18:00 Miscellaneous Information 1 ea NOTE XX ; Start 11/23/18 at 16:30 Glucose (Glutose) 15 gm Q15M PRN PO DECREASED GLUCOSE; Start 11/23/18 at 16:30 Glucose (Glutose) 22.5 gm Q15M PRN PO DECREASED GLUCOSE; Start 11/23/18 at 16:30 Dextrose (D50w Syringe) 25 ml Q15M PRN IV DECREASED GLUCOSE; Start 11/23/18 at 16:30 Dextrose (D50w Syringe) 50 ml Q15M PRN IV DECREASED GLUCOSE; Start 11/23/18 at 16:30 Glucagon (Glucagen) 1 mg Q15M PRN IM DECREASED GLUCOSE; Start 11/23/18 at 16:30 Glucose (Glutose) 15 gm Q15M PRN BUCCAL DECREASED GLUCOSE; Start 11/23/18 at 16:30 Methimazole (Tapazole) 10 mg BID PO Last administered on 11/26/18at 08:40; Admin Dose 10 MG; Start 11/24/18 at 21:00 CHARITY MATA MD Nov 26, 2018 16:40
--- NOTE | 2018-11-26 18:44 | NUR ---
EOSS: Patient is resting comfortably in bed, had dinner tolerated well, denies nausea or any discomfort. Pt had a large BM and wants another suppository, education given on side effects and doses ordered, pt verbalize understanding. IV is now HL, intact to left FA. NO other c/o pain. Call light within reach, side rails up x2, family at bedside, will endorse to next shift.
[2018-11-26 20:00] VITALS: BP 110/58; PULSE 91; RESP 18
[2018-11-27 02:00] VITALS: BP 106/60; PULSE 90; RESP 18
[2018-11-27] MEDS: ACCU-CHEK XX SCH (02:00)
--- NOTE | 2018-11-27 06:15 | NUR ---
Shift Summary No acute episodes throughout shift. Ambulating with steady gait. Vital signs WNL. All scheduled medications administered. Blood glucose controlled, HS snack provided. Hourly rounding done. Patient's safety maintained. Family member at bedside. Will endorse plan of care to oncoming nurse.
[2018-11-27 07:28] VITALS: BP 140/65; PULSE 90; RESP 18
[2018-11-27] MEDS: FAMOTIDINE 20 MG TAB PO SCH ×2 (08:15→20:28)
[2018-11-27] MEDS: ENOXAPARIN 40 MG/0.4 ML SYG SC SCH (08:19)
[2018-11-27] MEDS: INSULIN ASPART [NOVOLOG] 3 ML PEN SC SCH ×4 (08:19→20:34)
[2018-11-27] MEDS: METHIMAZOLE 5 MG TAB PO SCH ×2 (08:21→20:28)
[2018-11-27] MEDS: BISACODYL (EC) 5 MG TAB PO PRN (08:25)
--- NOTE | 2018-11-27 08:36 | CONS ---
Date/Time of Note Date/Time of Note DATE: 11/27/18 TIME: 08:32 Consult Date/Type/Reason Admit Date/Time Nov 23, 2018 at 14:02 Initial Consult Date 11/24/18 Type of Consultation: Urology Reason for Consultation Thick bladder wall on CT scan and possible enlarged prostate Requesting Provider: CHARITY MATA MD Subjective Patient denies having any pain and he is voiding well and has no dysuria or hematuria. Objective Vital Signs Date Temp Pulse Resp B/P (MAP) Pulse Ox O2 O2 Flow FiO2 Time Delivery Rate 11/27/18 98.8 90 18 140/65 99 Room Air 07:28 (90) Intake and Output 11/26/18 11/26/18 11/27/18 1414:59 22:59 06:59 IntakeIntake Total 360 ml 790 ml BalanceBalance 360 ml 790 ml Exam Abdomen is soft and he has no tenderness. Results/Medications Result Diagram: 11/25/18 0434 11/25/18 0434 Results 24 hrs Laboratory Tests Test 11/26/18 08:38 11/26/18 12:26 11/26/18 17:48 11/26/18 20:41 Bedside Glucose 133 215 193 140 Test 11/27/18 08:14 Bedside Glucose 146 Medications Current Medications IV Flush (NS 3 ml) 3 ml PER PROTOCOL IV ; Start 11/23/18 at 15:30 Ondansetron HCl (Zofran Inj) 4 mg Q6H PRN IV NAUSEA AND/OR VOMITING Last administered on 11/24/18at 19:28; Admin Dose 4 MG; Start 11/23/18 at 15:30 Acetaminophen (Tylenol Tab) 650 mg Q6H PRN PO PAIN LEVEL 1-3 OR FEVER; Start 11/23/18 at 15:30 Acetaminophen (Tylenol Supp) 650 mg Q6H PRN [place] PAIN LEVEL 1-3 OR FEVER; Start 11/23/18 at 15:30 Acetaminophen/ Hydrocodone Bitart ([place] (5/325)) 1 tab Q6H PRN PO MODERATE PAIN LEVEL 4-6 Last administered on 11/24/18at 19:32; Admin Dose 1 TAB; Start 11/23/18 at 15:30 Morphine Sulfate (morphine) 2 mg Q4H PRN IV SEVERE PAIN LEVEL 7-10; Start 11/23/18 at 15:30 Docusate Sodium (Colace) 100 mg Q12H PRN PO CONSTIPATION Last administered on 11/26/18at 20:52; Admin Dose 100 MG; Start 11/23/18 at 15:30 Magnesium Hydroxide (Milk Of Mag) 30 ml DAILY PRN PO CONSTIPATION; Start at 15:30 Bisacodyl (Dulcolax) 5 mg DAILY PRN PO CONSTIPATION Last administered on 11/27/18at 08:25; Admin Dose 5 MG; Start 11/23/18 at 15:30 Bisacodyl (Dulcolax Supp) 10 mg DAILY PRN [place] CONSTIPATION Last administered on 11/26/18at 12:34; Admin Dose 10 MG; Start 11/23/18 at 15:30 Sodium Biphosphate/ Sodium Phosphate (Fleet Enema) 133 ml DAILY PRN [place] CONSTIPATION; Start 11/23/18 at 15:30 Famotidine (Pepcid) 20 mg Q12 PO Last administered on 11/27/18at 08:15; Admin Dose 20 MG; Start 11/23/18 at 15:30 Enoxaparin Sodium (Lovenox) 40 mg DAILY SC Last administered on 11/27/18at 08:19; Admin Dose 40 MG; Start 11/24/18 at 09:00 Diagnostic Test (Pha) (Accu-Chek) 1 ea 02 XX Last administered on 11/25/18at 02:30; Admin Dose 1 EA; Start 11/24/18 at 02:00 Insulin Aspart (Novolog Insulin Pen) NOVOLOG *MODERATE* ALGORITHM WITH MEALS BEDTIME SC Last administered on 11/27/18at 08:19; Admin Dose 2 UNIT; Start 11/23/18 at 18:00 Miscellaneous Information 1 ea NOTE XX ; Start 11/23/18 at 16:30 Glucose (Glutose) 15 gm Q15M PRN PO DECREASED GLUCOSE; Start 11/23/18 at 16:30 Glucose (Glutose) 22.5 gm Q15M PRN PO DECREASED GLUCOSE; Start 11/23/18 at 16:30 Dextrose (D50w Syringe) 25 ml Q15M PRN IV DECREASED GLUCOSE; Start 11/23/18 at 16:30 Dextrose (D50w Syringe) 50 ml Q15M PRN IV DECREASED GLUCOSE; Start 11/23/18 at 16:30 Glucagon (Glucagen) 1 mg Q15M PRN IM DECREASED GLUCOSE; Start 11/23/18 at 16:30 Glucose (Glutose) 15 gm Q15M PRN BUCCAL DECREASED GLUCOSE; Start 11/23/18 at 16:30 Methimazole (Tapazole) 10 mg BID PO Last administered on 11/27/18at 08:21; Admin Dose 10 MG; Start 11/24/18 at 21:00 Assessment/Plan Chief Complaint/Hosp Course 58-year-old male was brought to the emergency room by his family because of fever chills nausea and vomiting in addition to weight loss. Patient underwent a CT scan of the abdomen and pelvis and that showed: 1. No CT findings to explain the patient's symptoms. 2. Mild diffuse wall thickening of the urinary bladder may relate to incomplete distension and prostatomegaly resulting in urinary bladder outlet obstruction. Correlation with urinalysis is recommended to rule out cystitis. Therefore a urological consultation was requested The patient denies any dysuria, he urinates about 3 times during the day and has no nocturia. No history of gross hematuria and his urinary stream is good. Urine culture showed mixed gram-positive organisms. Rectal exam shows soft prostate and it is not tender. There is no evidence of epididymitis on the physical examination. Patient is afebrile now, denies having any pain and he urinates well and has no dysuria. From a urological standpoint he may be discharged. The bladder wall thickening most likely related to the fact that the bladder was not distended. His urine culture showing mixed gram positive organisms indicates contamination rather than infection. YESSICA MANRIQUEZ MD Nov 27, 2018 08:36
--- NOTE | 2018-11-27 13:05 | PN ---
Date/Time of Note Date/Time of Note DATE: 11/27/18 TIME: 12:54 Assessment/Plan VTE Prophylaxis Risk score (from Nsg)>0 risk: 1 SCD applied (from Nsg): Yes Pharmacological prophylaxis: LMWH Lines/Catheters IV Catheter Type (from Nrsg): Peripheral IV Urinary Cath still in place: No Assessment/Plan Assessment/Plan 1. Grave's disease with hyperthyroidism, on tapazole, follow up with endo crinology outpatient 2. 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 DM, start metformin 4. DVT prophylaxis: lovenox Result Diagram: 11/25/18 0434 11/25/18 0434 Results 24hrs Laboratory Tests Test 11/26/18 17:48 11/26/18 20:41 11/27/18 08:14 11/27/18 12:43 Bedside Glucose 193 140 146 139 Subjective 24 Hr Interval Summary Free Text/Dictation no cough or shortness of breath. no fever or chills today Exam/Review of Systems Vital Signs Vitals Vital Signs Date Temp Pulse Resp B/P (MAP) Pulse Ox O2 O2 Flow FiO2 Time Delivery Rate 11/27/18 98.8 90 18 140/65 99 Room Air 07:28 (90) Intake and Output 11/26/18 11/26/18 11/27/18 1515:00 23:00 07:00 IntakeIntake Total 360 ml 790 ml BalanceBalance 360 ml 790 ml Exam Constitutional: alert, oriented, well developed Psych: no complaints, nl mood/affect Head: normocephalic, atraumatic Eyes: nl conjunctiva, EOMI, nl lids, PERRL ENMT: nl external ears & nose, nl lips & teeth, nl nasal mucosa & septum Neck: supple, non-tender Respiratory: clear to auscultation, normal air movement; No congested cough, No crackles/rales, No diminished breath sounds, No intercostal retraction, No labored breathing, No respirations, No tactile fremitus, No wheezing, No other Cardiovascular: regular rate and rhythm, nl pulses; No bruits, No diastolic murmur, No edema, No gallop, No irregular rhythm, No jugular venous distention (JVD), No murmurs/extra sounds, No rub, No systolic murmur, No S3, No S4, No other Gastrointestinal: soft, nl liver, spleen, non-tender Musculoskeletal: nl extremities to inspection Extremities: normal pulses; No calf tenderness, No cyanosis, No clubbing, No edema, No pitting pedal edema, No palpable cord, No tenderness, No other 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, nl mental status, nl speech, nl strength Skin: nl turgor Lymph: nl lymph nodes Medications Medications Current Medications IV Flush (NS 3 ml) 3 ml PER PROTOCOL IV ; Start 11/23/18 at 15:30 Ondansetron HCl (Zofran Inj) 4 mg Q6H PRN IV NAUSEA AND/OR VOMITING Last administered on 11/24/18at 19:28; Admin Dose 4 MG; Start 11/23/18 at 15:30 Acetaminophen (Tylenol Tab) 650 mg Q6H PRN PO PAIN LEVEL 1-3 OR FEVER; Start 11/23/18 at 15:30 Acetaminophen (Tylenol Supp) 650 mg Q6H PRN AL PAIN LEVEL 1-3 OR FEVER; Start 11/23/18 at 15:30 Acetaminophen/ Hydrocodone Bitart (Oliver (5/325)) 1 tab Q6H PRN PO MODERATE PAIN LEVEL 4-6 Last administered on 11/24/18at 19:32; Admin Dose 1 TAB; Start 11/23/18 at 15:30 Morphine Sulfate (morphine) 2 mg Q4H PRN IV SEVERE PAIN LEVEL 7-10; Start 11/23/18 at 15:30 Docusate Sodium (Colace) 100 mg Q12H PRN PO CONSTIPATION Last administered on 11/26/18at 20:52; Admin Dose 100 MG; Start 11/23/18 at 15:30 Magnesium Hydroxide (Milk Of Mag) 30 ml DAILY PRN PO CONSTIPATION; Start 11/23/18 at 15:30 Bisacodyl (Dulcolax) 5 mg DAILY PRN PO CONSTIPATION Last administered on 11/27/18at 08:25; Admin Dose 5 MG; Start 11/23/18 at 15:30 Bisacodyl (Dulcolax Supp) 10 mg DAILY PRN AL CONSTIPATION Last administered on 11/26/18at 12:34; Admin Dose 10 MG; Start 11/23/18 at 15:30 Sodium Biphosphate/ Sodium Phosphate (Fleet Enema) 133 ml DAILY PRN AL CON STIPATION; Start 11/23/18 at 15:30 Famotidine (Pepcid) 20 mg Q12 PO Last administered on 11/27/18at 08:15; Admin Dose 20 MG; Start 11/23/18 at 15:30 Enoxaparin Sodium (Lovenox) 40 mg DAILY SC Last administered on 11/27/18at 08:19; Admin Dose 40 MG; Start 11/24/18 at 09:00 Diagnostic Test (Pha) (Accu-Chek) 1 ea 02 XX Last administered on 11/25/18at 02:30; Admin Dose 1 EA; Start 11/24/18 at 02:00 Insulin Aspart (Novolog Insulin Pen) NOVOLOG *MODERATE* ALGORITHM WITH MEALS BEDTIME SC Last administered on 11/27/18 08:19; Admin Dose 2 UNIT; Start 11/23/18 at 18:00 Miscellaneous Information 1 ea NOTE XX ; Start 11/23/18 at 16:30 Glucose (Glutose) 15 gm Q15M PRN PO DECREASED GLUCOSE; Start 11/23/18 at 16:30 Glucose (Glutose) 22.5 gm Q15M PRN PO DECREASED GLUCOSE; Start 11/23/18 at 16:30 Dextrose (D50w Syringe) 25 ml Q15M PRN IV DECREASED GLUCOSE; Start 11/23/18 at 16:30 Dextrose (D50w Syringe) 50 ml Q15M PRN IV DECREASED GLUCOSE; Start 11/23/18 at 16:30 Glucagon (Glucagen) 1 mg Q15M PRN IM DECREASED GLUCOSE; Start 11/23/18 at 16:30 Glucose (Glutose) 15 gm Q15M PRN BUCCAL DECREASED GLUCOSE; Start 11/23/18 at 16:30 Methimazole (Tapazole) 10 mg BID PO Last administered on 11/27/18at 08:21; Admin Dose 10 MG; Start 11/24/18 at 21:00 ASHLY MANTILLA MD Nov 27, 2018 13:04
--- NOTE | 2018-11-27 14:45 | CONS ---
DATE OF ADMISSION: 11/23/2018 DATE OF CONSULTATION: 11/27/2018 TYPE OF CONSULTATION: Infectious disease. REASON FOR CONSULTATION: Antibiotic management. HISTORY OF PRESENT ILLNESS: Alejandro Whitaker is a pleasant 58-year-old [place] male who comes i n with weight loss and failure to thrive, occurred earlier this month, he had an elective colonoscopy which was of poor prep but was otherwise unremarkable. He states that he lost 15 to 20 pounds of we ight. He complains of GI issues such as nausea and vomiting. He has some fever and bony aches, coug h, nonproductive. 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 There is no history of travel, no recent antibiotic u se. 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 No family history of tuberculosi s that I can ascertain. His and daughter are healthy. No recent change in medications or antib iotic use that I am aware of. PAST MEDICAL HISTORY: OPERATIONS: None. PAST MEDICAL HISTORY: Positive for diabetes, metabolic syndrome, weight loss. FAMILY HISTORY: Positive for diabetes. SOCIAL HISTORY: He is positive for drinking alcohol. No active smoking or abuse of drugs. REVIEW OF SYSTEMS: Noncontributory. PHYSICAL EXAMINATION: GENERAL: He is a well-developed, well-nourished male, awake, responsive, in no acute distress. VITAL SIGNS: Stable. He is afebrile. SKIN: Without generalized rash. HEENT: Within normal limits. NECK: Supple. LYMPH NODES: None palpable. LUNGS: Clear to P and A. HEART: Without murmur or gallop. ABDOMEN: Soft, without organosplenomegaly or masses. EXTREMITIES: Without cyanosis, clubbing, or edema. RECTAL AND GENITAL: Deferred. NEUROLOGIC: No focal neurological abnormalities. IMPRESSION AND PLAN: The patient comes in with fever, rule out viral illness. Consider gastritis, s table , continue searching for source of his illness at this point. LABORATORY DATA: His white count was 7.6. On admission, H and H 10.2 and 31.6, platelet count 190,0 00. BUN and creatinine 15/0.84 with 53% neutrophils. HOSPITAL COURSE: The patient was seen by Dr. Ahumada. The patient denies any dysuria. He urinates 3 times per day. No history of gross hematuria. RECTAL: Shows soft prostate, nontender, no evidence of acute epididymitis on physical exam. We did not find any neurological reason for his fever, unless his urine turns positive. The white count was down to 5.7. BUN and creatinine 9/0.71. The patient continued to have temperatures up to 99.5 and 99.9 on the . Urine shows negative for nitrite and leukocyte esterase. His Quantiferon Gold TB was positive, which would be expected in a patient who has had previous TB many years ago. The patie nt is on methimazole for hyperthyroidism. At the present time, I would not treat his tuberculosis. I will continue him on current therapy. He is being treated for Graves' disease on Tapazole. Observ e his fever and his white count, continue him on current therapy. We have taken him off of antibioti c therapy and observe. I would not treat him for TB either. We can get sputum for TB and CT of the chest with and without contrast, but at this point, I would not treat him. I will dictate my findings to the hospitalists. Dictated By: ILEANA JERNIGAN MD, JD/HELENA Conf#: [id number] DID#: [id number] CC: CHARITY MATA MD;*End*
[2018-11-27 15:00] VITALS: BP 117/62; PULSE 99; RESP 18
--- NOTE | 2018-11-27 16:16 | NUR ---
Spoke with Dr. Laughlin regarding patient's isolation precaution due to positive QFT, per MD no need to isolate the patient. Addendum: 11/27/18 at 1729 by LEX MCGINNIS RN confirmed with Dr. Laughlin if wants to order TB sputum test, informed of patient's latest chest xray, no cough. per sputum test not needed.
[2018-11-27] MEDS: metFORMIN 500 MG TAB PO SCH (17:37)
--- NOTE | 2018-11-27 18:44 | NUR ---
END OF SHIFT Patient alert, no acute distress. Due medications given, tolerated well. No cough. Needs attended. Will continue to monitor.
[2018-11-27 19:55] VITALS: BP 100/54; PULSE 90; RESP 18
[2018-11-28 01:37] VITALS: BP 97/56; PULSE 84; RESP 18
[2018-11-28] MEDS: ACCU-CHEK XX SCH (02:00)
--- NOTE | 2018-11-28 04:48 | NUR ---
SHIFT NOTES: PT RESTED WELL THIS SHIFT. V/S STABLE. NO COMPLAINTS OF PAIN OR DISCOMFORT THIS SHIFT. DUE MEDS GIVEN. ACCU CHECK DONE. WAS COVERED APPROPRIATELY. NEEDS ATTENDED. CALL LIGHT PLACED WITHIN REACH. ENCOURAGED TO CALL FOR ASSISTANCE WHEN NEEDED. AT THE BEDSIDE.
[2018-11-28 07:53] VITALS: BP 120/67; PULSE 93; RESP 18
[2018-11-28] MEDS: FAMOTIDINE 20 MG TAB PO SCH (09:05)
[2018-11-28] MEDS: metFORMIN 500 MG TAB PO SCH (09:05)
[2018-11-28] MEDS: METHIMAZOLE 5 MG TAB PO SCH (09:05)
[2018-11-28] MEDS: INSULIN ASPART [NOVOLOG] 3 ML PEN SC SCH ×2 (09:07→13:33)
[2018-11-28] MEDS: ENOXAPARIN 40 MG/0.4 ML SYG SC SCH (09:08)
[2018-11-28] MEDS ORDERED: METF-849 PO (13:48)
[2018-11-28] MEDS ORDERED: METH-493 PO (13:48)
--- NOTE | 2018-11-28 13:59 | DS ---
Date/Time of Note Date/Time of Note DATE: 11/28/18 TIME: 13:49 Discharge Summary Admission/Discharge Info Admit Date/Time Nov 23, 2018 at 14:02 Discharge Date/Time Discharge Diagnosis 1. Grave's disease with hyperthyroidism, on tapazole, follow up with endocrin ology outpatient 2. Positive TB gold, no evidence of active disease, no treatment needed at this time 3. DM, resume home meds, follow up with PCP Patient Condition: Stable Hospital Course 58-year-old male reports roughly 10 years ago while in the [facility] system he had presented with symptoms of thyrotoxicosis. He was placed on methimazole at 10 mg twice daily and had done well. He was maintained on treatment for 9 years but ultimately had his medications discontinued [address] Purdy. Over the last 1 year he has been off of medication treatment. He has developed symptoms consistent with thyrotoxicosis including changes in hair heat intolerance excessive sweating decreased endurance palpitations with minimal exertion and unplanned weight loss. Ultimately presented to the emergency room here and was admitted. TSH is <0.015, T4 3.84, TT3 1.07. CT neck Generalized homogeneous enlargement of thyroid gland compatible with goiter. Patient is started on methimazole for hyperthyroidism, symptoms improved. 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 TB gold test is negative. CT chest and abdomen/pelvis without evidence of active disease. ID consult does not recommend any treatment. He has a type II diabetic on metformin and glipiozide. HbA1c 6.1. He will continue home medications for DM. Home Meds Active Scripts Methimazole* (Methimazole*) 5 Mg Tablet, 10 MG PO BID for 30 Days, TAB Prov:ASHLY MANTILLA MD 11/28/18 Metformin* (Glucophage*) 500 Mg Tab, 1000 MG PO BID WITH MEALS for 30 Days, TAB Prov:ASHLY MANTILLA MD 11/28/18 Reported Medications Glipizide* (Glipizide*) 5 Mg Tablet, 5 MG PO BID, TAB 11/23/18 Metformin* (Glucophage*) 1,000 Mg Tablet, 1000 MG PO BID, #60 TAB 11/23/18 Discontinued Reported Medications [glizipide] No Conflict Check 11/14/18 [metformin] No Conflict Check 1/10/19 Follow-up Plan PCP and endocrinology in one week Primary Care Provider Not On Staff Doctor Pending Labs Laboratory Tests Test 11/27/18 17:36 11/27/18 20:31 11/28/18 01:59 11/28/18 08:04 Bedside 206 269 279 248 Glucose mg/dL (70-220) mg/dL (70-220) mg/dL (70-220) mg/dL (70-220) Test 11/28/18 12:49 Bedside 172 Glucose mg/dL (70-220) ASHLY MANTILLA MD Nov 28, 2018 13:59
--- NOTE | 2018-11-28 15:46 | NUR ---
PT DISCHARGE HOME ORDERED. STABLE NO DISCOMFORT NOTED. IV REMOVED ALL DISCHARGE INSTRUCTION GIVEN PT UNDERSTOOD. FAMILY AT BED SIDE.
== END 2018-11-28 15:30 | disposition home or self-care (01) | DRG 644 ==
LOC: E/R 11:50 → 2NE 14:02
PROVIDERS: ADMIT Internal Medicine; ATTEND Internal Medicine
DX: E05.00 Thyrotoxicosis with diffuse goiter without thyrotoxic crisis or storm (principal); K92.0 Hematemesis; R62.7 Adult failure to thrive; R11.2 Nausea with vomiting, unspecified; Z68.24 Body mass index [BMI] 24.0-24.9, adult; R63.4 Abnormal weight loss; R79.89 Other specified abnormal findings of blood chemistry; E11.9 Type 2 diabetes mellitus without complications; D64.9 Anemia, unspecified
CPT/HCPCS: 36415; 70450; 71045; 71250; 74176; 80048; 80053; 81001; 82728; 82962; 83036; 83540; 83605; 83690; 83735; 84100; 84439; 84443; 84480; 84484; 85025; 85610; 85651; 85730; 86140; 86480; 87040; 87086; 87338; 87400; 93005; 93306; 96365; J0696; J1650; J1815; J2405; J3475; J7030

== ENCOUNTER 2018-12-10 16:34 | Inpatient (IN) | payer OTHER ==
[~2018-12-10] VITALS: Ht 182.9 cm; Wt 85.8 kg
[~2018-12-10 16:34] MED LIST changes: +GLIP5TAB13 PO; -GLIPIZIDE; +METF-849 PO; +METH-493 PO; +MTF1000T PO; -metformin
[2018-12-10] MEDS ORDERED: SODIUM CHLORIDE 0.9% 1L BAG IV* STA (18:36)
[2018-12-10] MEDS ORDERED: ACETAMINOPHEN 500 MG TAB PO STA (18:36)
[2018-12-10] MEDS ORDERED: CEFEPIME 2GM/50 ML (PMX) 50 ML IVPB STA (19:11)
[2018-12-10] MEDS ORDERED: VANCOMYCIN 1 GM (PMX) 250 ML IVPB ONE (19:30)
[2018-12-10] MEDS ORDERED: PROPRANOLOL 1 MG INJ IV ONE (22:30)
--- NOTE | 2018-12-10 22:30 | ERD ---
ER Documentation Chief Complaint Chief Complaint NO APPETITE, WEAK, VOMITING, HPI This is a 58-year-old male with a history of Graves' disease. The patient was recently discharged from the hospital roughly 2 weeks ago. The patient had been admitted roughly 2 weeks ago for hyperthyroidism and had been noncompliant with medications. At that time he lost roughly 45 pounds. Since discharge the patient indicates that he has had generalized weakness. He had a nonproductive cough. He had a decrease in appetite. His symptoms have worsened over the past 48 hours. He said no shortness of breath. He denies any swelling of his lower extremities. He has had no hemoptysis hematemesis or melanotic stools. ROS All systems reviewed and are negative except as per history of present illness. Medications Home Meds Active Scripts Methimazole* (Methimazole*) 5 Mg Tablet, 10 MG PO BID for 30 Days, TAB Prov:ASHLY MANTILLA MD 11/28/18 Metformin* (Glucophage*) 500 Mg Tab, 1000 MG PO BID WITH MEALS for 30 Days, TAB Prov:ASHLY MANTILLA MD 11/28/18 Reported Medications Glipizide* (Glipizide*) 5 Mg Tablet, 5 MG PO BID, TAB 11/23/18 Metformin* (Glucophage*) 1,000 Mg Tablet, 1000 MG PO BID, #60 TAB 11/23/18 Allergies Allergies: Coded Allergies: No Known Allergy (Unverified , 11/23/18) PMhx/Soc History of Surgery: Yes (Cataract 2016) Anesthesia Reaction: No Hx Neurological Disorder: No Hx Respiratory Disorders: No Hx Cardiac Disorders: No Hx Psychiatric Problems: No Hx Miscellaneous Medical Probl: No Hx Alcohol Use: No Hx Substance Use: No Hx Tobacco Use: No Smoking Status: Never smoker Physical Exam Vitals Vital Signs Date Temp Pulse Resp B/P (MAP) Pulse Ox O2 O2 Flow FiO2 Time Delivery Rate 12/10/18 99.9 19:11 12/10/18 99.9 17:43 12/10/18 100.8 121 20 107/58 100 16:40 (74) Physical Exam Constitutional:Well-developed. Well-nourished. HEENT:Normocephalic. Atraumatic.Pupils were equal round reactive to light. Very dry mucous membranes.No tonsillar exudates. Neck: No nuchal rigidity. No lymphadenopathy. No posterior cervical spine tenderness or step-offs. Respiratory: Not using accessory muscles of respiration.Lungs were clear to auscultation bilaterally. No rhonchi. No rales. No wheezing. Cardiovascular: Regular rate regular rhythm.No murmurs. No rubs were appreciated.S1, S2 normal. Distal pulses are palpable 2+ bilaterally. GI: Abdomen was soft. Nontender. Non Distended. No pulsatile abdominal masses or bruits. No rebound. No guarding. Bowel sounds were present and normal. Muscle skeletal: Full range of motion of both the upper and lower extremities bilaterally.Normal muscle tone.No assymetrical calf tenderness or swelling. Skin: No petechia, no purpura. No lesions on the palms or the soles of the feet. No maculopapular rash. NEURO: Patient was alert, awake, orientated x3.No facial droop. Gait unobserved as patient was unable to ambulate due to generalized weakness..Speech had regular rate and rhythm. No focal neurological deficits. Result Diagram: 12/10/18181212/10/181812 Results 24 hrs Laboratory Tests Test 12/10/18 18:13 12/10/18 18:18 12/10/18 20:29 12/10/18 20:37 White Blood Count 8.1 10^3/ul Red Blood Count 4.03 10^6/ul Hemoglobin 10.3 g/dl Hematocrit 33.3 % Mean Corpuscular 82.6 fl Volume Mean Corpuscular 25.6 pg Hemoglobin Mean Corpuscular 30.9 g/dl Hemoglobin Concent Red Cell 15.5 % Distribution Width Platelet Count 186 10^3/UL Mean Platelet 10.1 fl Volume Immature 0.600 % Granulocytes % Neutrophils % % Segmented 70 % Neutrophils % (Manual) Lymphocytes % % Lymphocytes % 14 % (Manual) Reactive 3 % Lymphocytes % (Manual) Monocytes % % Monocytes % 13 % (Manual) Eosinophils % % Basophils % % Nucleated Red 0.0 /100WBC Blood Cells % Immature 0.050 10^3/ul Granulocytes # Neutrophils # 10^3/ul Lymphocytes 1.1 10^3/ul (Manual) Lymphocytes # 10^3/ul Reactive 0.2 10^3/ul Lymphocytes # Monocytes # 10^3/ul Monocytes # 1.0 10^3/ul (Manual) Eosinophils # 10^3/ul Basophils # 10^3/ul Nucleated Red 10^3/ul Blood Cells # Platelet Estimate NORMAL Prothrombin Time 13.3 Sec Prothrombin Time 1.0 Ratio INR International 1.00 Normalized Ratio Activated 29.[address] Time Sodium Level 139 mmol/L Potassium Level 4.3 mmol/L Chloride Level 97 mmol/L Carbon Dioxide 31 mmol/L Level Anion Gap 11 Blood Urea 12 mg/dl Nitrogen Creatinine 0.85 mg/dl Est Glomerular > 60 mL/min Filtrat Rate mL/min Glucose Level 110 mg/dl Calcium Level 10.7 mg/dl Total Bilirubin 0.3 mg/dl Direct Bilirubin 0.00 mg/dl Indirect Bilirubin 0.3 mg/dl Aspartate Amino 43 IU/L Transf (AST/SGOT) Alanine 17 IU/L Aminotransferase ( ALT/SGPT) Alkaline 170 IU/L Phosphatase Troponin I < 0.012 ng/ml Total Protein 8.0 g/dl Albumin 3.6 g/dl Globulin 4.40 g/dl Albumin/Globulin 0.81 Ratio Amylase Level 67 U/L Lipase 71 U/L Thyroid < 0.015 MIU/L Stimulating Hormone (TSH) Free Thyroxine 11.24 ug/ml Index Thyroxine (T4) 18.3 ug/dl Triiodothyronine 61.4 % (T3) Uptake POC Venous Lactate 2.4 mmol/L 1.8 mmol/L Urine Color YELLOW Urine Clarity CLEAR Urine pH 5.0 Urine Specific 1.010 [place] Urine Ketones TRACE mg/dL Urine Nitrite NEGATIVE mg/dL Urine Bilirubin NEGATIVE mg/dL Urine Urobilinogen NEGATIVE mg/dL Urine Leukocyte NEGATIVE Harriett/ul Esterase Urine Hemoglobin NEGATIVE mg/dL Urine Glucose NEGATIVE mg/dL Urine Total NEGATIVE mg/dl Protein Current Medications Medications Dose Sig/Ishmael Start Time Status Last (Trade) Ordered Route PRN Stop Time Admin Dose Reason Admin Sodium 2,400 ml BOLUS OVER 2 12/10/18 DC 12/10/18 Chloride HOURS STAT 18:36 12/10/18 19:06 (NS) IV* 18:38 1,000 mg ONCE STAT 12/10/18 DC 12/10/18 Acetaminophen PO 18:36 12/10/18 19:11 (Tylenol 18:38 Tab) Cefepime HCl 50 ml @ ONCE STAT 12/10/18 DC 12/10/18 100 mls/hr IVPB 19:11 12/10/18 19:47 19:40 Vancomycin 250 ml @ ONCE ONCE 12/10/18 DC 12/10/18 HCl 125 mls/hr IVPB 19:30 12/10/18 20:17 21:29 Propranolol 1 mg ONCE ONCE 12/10/18 UNV HCl IV 22:30 12/10/18 (Inderal Iv) 22:31 Procedures/MDM This is a 55-year-old male who presented to the emergency department generalized weakness and signs of clinical dehydration. The patient was placed on a bus monitor continuous pulse oximetry and IV access was established by nursing staff. The patient has a history of hyperthyroidism and therefore the thyroid panel did suggest this. My clinical suspicion was low for thyrotoxicosis or thyroid storm. He did receive IV propanolol with improvement of his tachycardia. The patient presented to the emergency department he did meet Sirs criteria. His lactic acid was elevated. Therefore he was treated for sepsis of unclear etiology. Due to his generalized weakness I do feel is necessary to obtain a CT scan of the patient's head. There was no intracerebral hemorrhage mass-effect or midline shift. 12 Lead EKG tracing ordered and reviewed by myself showed: Sinus tachycardia 111 bpm and no arrhythmia. CA interval normal. QRS duration normal. No ST segment elevation No ST segment depression. No changes consistent with acute ischemia. Patient's infectious symptoms have not stabilized and the patient is at risk of rapid decompensation. The patient will be admitted for careful hydration, antibiotic therapy, and infectious source control. Severe Sepsis Assessment: Infectious Source: unknown source. End organ damage indicated by: Lactate > 2.0 mmol/L Hypotension( SBP < 90 or >40 mmHG drop or MAP < 65) Severe Sepsis Managment: Blood Cultures X 2 before broad spectrum antibiotics in itiated within 3 hours of recognition. 30 ml/kg NS bolus Completed Initial Lactate: 2.4 Repeat Lactate 1.8 I considered further perfusion assessment with CVP measurement, SCVO2, bedside ultrasound volume assessment, passive leg raise, trial of further fluid bolus. And preceded with IV fluids Critical Care: Time: 70 minutes Treatments/Evaluations: Close monitoring and treatment of unstable vital signs, cardiorespiratory, and neurologic status, while maintaining tight balance of f luid, respiratory, and cardiac interventions. Time does not include performing any of the above billable procedures. Departure Diagnosis: Primary Impression: Acute weakness Additional Impressions: Sepsis Sepsis type: sepsis due to unspecified organism Qualified Codes: A41.9 - Sepsis, unspecified organism Hyperthyroidism Condition: Serious BRET BETHEA MD Dec 10, 2018 22:29
[2018-12-10] MEDS ORDERED: ACETAMINOPHEN 325 MG TAB PO PRN (23:00)
[2018-12-10] MEDS ORDERED: ONDANSETRON 4 MG INJ IV PRN (23:00)
[2018-12-10] MEDS ORDERED: DOCUSATE SODIUM 100 MG CAP PO PRN (23:30)
[2018-12-10] MEDS ORDERED: VANCOMYCIN IV PER PHARMACY XX SCH (23:30)
[2018-12-10] MEDS ORDERED: NACL 0.9% 3 ML SYG IV SCH (23:30)
[2018-12-11] VITALS (11 sets, daily range): BP systolic 116–166; BP diastolic 61–88; PULSE 84–115; RESP 18–20; Ht 182.9 cm; Wt 85.8 kg
--- NOTE | 2018-12-11 01:37 | HP ---
Date/Time of Note Date/Time of Note DATE: 12/11/18 TIME: 01:37 Assessment/Plan VTE Prophylaxis SCD applied (from Nsg): Yes Pharmacological prophylaxis: NA/contraindicated Pharm contraindication: low risk/ambulating Lines/Catheters IV Catheter Type (from Nrsg): Saline Lock Assessment/Plan Hospital Course This is a 58-year-old male being admitted to the telemetry floor for: #1 sepsis: Suspect respiratory infection. TB is on the differential however patient has a negative chest x-ray. Does have a previous history of positive QuantiFERON gold. I do have a lower suspicion of TB at the current time however I will put the patient on isolation precautions. Will check acid-fast bacilli. Patient is on vancomycin and cefepime at the current time. Cultures are pending. Initial lactic acid was 2.4 however has been trending down. Will check an ESR, CRP #2 hyperthyroidism: Concern for possible thyrotoxicosis. Patient at the current time does not appear to be confused or agitated. Nonetheless he is tachycardic. We will put the patient on propanolol 60 mg p.o. 4 times daily. We will also resume the patient's home methimazole dosage. TSH is severely depressed, will check free T3 and free T4. Will consult endocrinology guidance. Will check electrolytes. #3 Diabetes mellitus: Check hemoglobin A 1C, insulin sliding scale,, will hold home oral medications #4. DVT GI prophylaxis: SCDs, no GI prophylaxis indicated Further treatment strategy will be implemented as per the clinical course. Result Diagram: 12/10/183 12/10/18 1813 Results 24hrs Laboratory Tests Test 12/10/18 18:13 12/10/18 18:18 12/10/18 20:29 12/10/18 20:37 White Blood Count 8.1 # Red Blood Count 4.03 L Hemoglobin 10.3 L Hematocrit 33.3 L Mean Corpuscular Volume 82.6 Mean Corpuscular 25.6 L Hemoglobin Mean Corpuscular 30.9 L Hemoglobin Concent Red Cell Distribution 15.5 H Width Platelet Count 186 Mean Platelet Volume 10.1 Immature Granulocytes % 0.600 H Neutrophils % Segmented Neutrophils 70 % (Manual) Lymphocytes % Lymphocytes % (Manual) 14 L Reactive Lymphocytes 3 H % (Manual) Monocytes % Monocytes % (Manual) 13 H Eosinophils % Basophils % Nucleated Red Blood 0.0 Cells % Immature Granulocytes # 0.050 H Neutrophils # Lymphocytes (Manual) 1.1 Lymphocytes # Reactive Lymphocytes # 0.2 H Monocytes # Monocytes # (Manual) 1.0 H Eosinophils # Basophils # Nucleated Red Blood Cells # Platelet Estimate NORMAL Prothrombin Time 13.3 Prothrombin Time Ratio 1.0 INR International 1.00 Normalized Ratio Activated 29.4 Partial Thromboplast Time Sodium Level 139 Potassium Level 4.3 Chloride Level 97 Carbon Dioxide Level 31 Anion Gap 11 Blood Urea Nitrogen 12 Creatinine 0.85 Est Glomerular Filtrat > 60 Rate mL/min Glucose Level 110 Calcium Level 10.7 H Total Bilirubin 0.3 Direct Bilirubin 0.00 Indirect Bilirubin 0.3 Aspartate Amino 43 Transf (AST/SGOT) Alanine 17 Aminotransferase (ALT/SG PT) Alkaline Phosphatase 170 H Troponin I < 0.012 Total Protein 8.0 Albumin 3.6 Globulin 4.40 H Albumin/Globulin Ratio 0.81 Amylase Level 67 Lipase 71 Thyroid Stimulating < 0.015 L Hormone (TSH) Free Thyroxine Index 11.24 H Thyroxine (T4) 18.3 H Triiodothyronine (T3) 61.4 H Uptake POC Venous Lactate 2.4 *H 1.8 Urine Color YELLOW Urine Clarity CLEAR Urine pH 5.0 Urine Specific [place] 1.010 Urine Ketones TRACE A Urine Nitrite NEGATIVE Urine Bilirubin NEGATIVE Urine Urobilinogen NEGATIVE Urine Leukocyte Esterase NEGATIVE Urine Hemoglobin NEGATIVE Urine Glucose NEGATIVE Urine Total Protein NEGATIVE Test 12/10/18 22:33 Lactic Acid Level 1.0 HPI/ROS Admit Date/Time Admit Date/Time Hx of Present Illness Chief complaint: Weakness, cough This is a 58-year-old male with a history of Graves' disease. The patient was recently discharged from the hospital roughly 2 weeks ago. At that time he had been restarted on his thyroid medications as he had not been on it some time. At the current time patient continues to report a weight loss. Family member with him at the bedside does report that he is still been weak since his discharge. He has been having a poor appetite. He does report palpitations. Since discharge the patient indicates that he has had generalized weakness. He had a nonproductive cough and on and off fevers. His symptoms have worsened over the past 48 hours. He denies shortness of breath. He denies any swelling of his lower extremities. He has had no hemoptysis hematemesis or melanotic stools. He does report heat intolerance. Upon review of the patient's chart he did have a previous positive QuantiFERON gold. No acid-fast sputum was ordered. Allergies: NKDA Medications: See MAR MARIA LUISA Const: As per HPI Eyes : No pain discharge or redness or change in visual acuity ENT: No pain, sore throat, congestion, congestion, dysphagia or discharge Respiratory: As per HPI Cardiovascular: No chest pain, palpitation, PND, or edema GI : no change in appetite, abdominal pain, nausea, vomiting, diarrhea, constipation, or change in the color his stool Genitourinary: No dysuria, hematuria, flank pain , discharge or CVA tenderness Musculoskeletal: No joint pain, back pain, neck pain, restricted range of motion in neck or joints Skin: No rash, bruising or hives Neuro: No headache, dizziness, syncope, seizure, focal weakness Endocrine: As per HPI Psych: No hallucination, depression, anxiety or suicidal ideation PMH/Family/Social Past Medical History Hypothyroidism, Diabetes Metabolic syndrome Medications Current Medications Ondansetron HCl (Zofran Inj) 4 mg ER BRIDGE PRN IV NAUSEA/VOMITING; Start 12/10/18 at 23:00; Stop 12/11/18 at 22:59 Acetaminophen (Tylenol Tab) 650 mg ER BRIDGE PRN PO .MILD PAIN 1-3 OR TEMP; Start 12/10/18 at 23:00; Stop 12/11/18 at 22:59 IV Flush (NS 3 ml) 3 ml PER PROTOCOL IV ; Start 12/10/18 at 23:30 Ondansetron HCl (Zofran Inj) 4 mg Q6H PRN IV NAUSEA/VOMITING; Start 12/10/18 at 23:30 Acetaminophen (Tylenol Tab) 650 mg Q6H PRN PO .PAIN 1-3 OR TEMP; Start 12/10/18 at 23:30 Docusate Sodium (Colace) 100 mg Q12H PRN PO .CONSTIPATION; Start 12/10/18 at 23:30 Bisacodyl (Dulcolax) 5 mg DAILY PRN PO .CONSTIPATION; Start 12/10/18 at 23:30 Vancomycin HCl (Vanco Iv Per Pharmacy) VANCOMYCIN PER PHARMACY PER PROTOCOL XX ; Start 12/10/18 at 23:30 Cefepime HCl 50 ml @ 100 mls/hr Q12 IVPB ; Start 12/11/18 at 09:00 Vancomycin HCl 1.25 gm/Sodium Chloride 250 ml @ 83.333 mls/ hr Q12H IVPB ; Start 12/11/18 at 03:00 Coded Allergies: No Known Allergy (Unverified , 11/23/18) Past Surgical History Bilateral cataract surgery Family History Significant Family History: no pertinent family hx Social History Alcohol Use: none Smoking Status: Never smoker Drug Use: none Exam/Review of Systems Vital Signs Vitals Vital Signs Date Temp Pulse Resp B/P (MAP) Pulse Ox O2 O2 Flow FiO2 Time Delivery Rate 12/11/18 98.8 91 20 122/58 100 Room Air 00:12 (79) Exam Exam General: Patient is currently lying in bed he does appear lethargic but he does not appear to be in any acute distress HEENT: Atraumatic, normocephalic. The pupils are equal, round and reactive. Extraocular motor are intact Neck: Supple with full range of motion. No rigidity or meningismus Chest: Nontender Lungs: Clear to auscultation bilaterally no crackles rales or wheezing, cough nonproductive Heart: Sinus tachycardia Abdomen: Soft , nontender, nondistended , bowel sounds are present. No guarding no rebound tenderness , No masses or organomegaly. No costovertebral temporal angle mass Extremities: Normal to inspection, no edema no cyanosis,Free range of motion x4 bilateral lower extremities Neurologic: Normal mental status, speech normal, cranial nerves II through XII are intact, motor and sensory are intact, no focal neurological deficits noted, Additional Comments PROCEDURE: Noncontrast CT Head. CLINICAL INDICATION: Right-sided weakness. TECHNIQUE: Noncontrast CT of the head was obtained. The administered radiation dose was CTDI vol = 39.6 mGy, DLP = 634.23 mGy-cm. One or more of the following dose reduction techniques were used: Automated exposure control, Adjustment of the mA and/or kV according to patient size, or Use of iterative reconstruction technique. DICOM images are available. COMPARISON: CT BRAIN 11/23/2018 FINDINGS: There is mild ventricular dilatation greater than minimal sulcal prominence suggesting central greater than peripheral volume loss. There is a partially empty sella turcica. There is no loss of funez-white differentiation to suggest acute territorial infarction. There is no acute intracranial hemorrhage or extra-axial fluid collection. There is no mass effect. No midline shift is identified. The orbits are within normal limits. There is mild bilateral ethmoid sinus mucosal thickening. No destructive osseous lesion is identified. IMPRESSION: No significant change. 1. No acute intracranial hemorrhage or extra-axial fluid collection. 2. Mild central greater than peripheral cerebral volume loss. 3. Partially empty sella turcica. Further findings as detailed above. RPTAT: HVF .Sreedhar Salinas MD, Date Time Electronically viewed and signed by .Sreedhar Salinas MD, MD on 12/10/2018 19:52 .F/ CC: BRET BETHEA MD [phone] PROCEDURE: XR Chest. CLINICAL INDICATION: chest pain TECHNIQUE: Single frontal view of the chest was obtained COMPARISON: 11/27/2018 FINDINGS: The heart and mediastinum are within normal limits. The lungs are clear. There is no pleural effusion or pneumothorax. RPTAT: AA IMPRESSION: No acute disease. .Adonis Zuniga MD, Date Time Electronically viewed and signed by .Adonis Zuniga MD, MD on 12/10/2018 19:26 .S/ CC: BRET BETHEA MD [id number] LYNDON LÓPEZ Dec 11, 2018 01:37
[2018-12-11] MEDS ORDERED: METHIMAZOLE 5 MG TAB PO SCH ×2 (02:00)
[2018-12-11] MEDS: ONDANSETRON 4 MG INJ IV PRN (03:36)
[2018-12-11] MEDS: VANCOMYCIN HCL 1.25 GM in SOD CHLORIDE 0.9% 250 ML IVPB SCH ×2 (04:16→15:11)
[2018-12-11] MEDS ORDERED: PROPRANOLOL 40 MG TAB PO SCH (04:30)
[2018-12-11] MEDS ORDERED: GLUCOSE GEL 15 GRAM TUBE BUCCAL PRN (06:30)
[2018-12-11] MEDS ORDERED: GLUCAGON 1 MG INJ IM PRN (06:30)
[2018-12-11] MEDS ORDERED: GLUCOSE GEL 15 GRAM TUBE PO PRN ×2 (06:30)
[2018-12-11] MEDS ORDERED: DEXTROSE 50% 50 ML SYRINGE IV PRN ×2 (06:30)
[2018-12-11] MEDS: INSULIN ASPART [NOVOLOG] 3 ML PEN SC SCH ×4 (07:55→21:00)
[2018-12-11] MEDS ORDERED: MAGNESIUM SULFATE 4 GM/100 ML 100 ML IVPB ONE (09:00)
[2018-12-11] MEDS: CEFEPIME 2GM/50 ML (PMX) 50 ML IVPB SCH ×2 (09:18→21:42)
[2018-12-11] MEDS: PROPRANOLOL 20 MG TAB PO SCH ×3 (09:18→21:43)
--- NOTE | 2018-12-11 13:26 | CONS ---
Assessment/Plan Assessment/Plan Problems: (1) Graves' disease with exophthalmos Status: Chronic Comment: I find the patient's family to be extremely believable when they report that he is been taking his medications. However his thyroid function tests actually look like he is much more hyperthyroid than he was at the last admission. We will go ahead and increase the methimazole dosage and give him a dosage of PTU to get this knocked down a little bit. Ultimately he is going to be appropriate candidate for radioactive iodine ablation therapy (2) Diabetes mellitus type 2 in nonobese Status: Chronic Comment: Adequate control Consultation Date/Type/Reason Admit Date/Time December 10, 2018 Date of Consultation: Dec 11, 2018 Type of Consult Endocrinology Reason for Consultation Graves' disease with Graves' exophthalmus and severe thyrotoxicosis Requesting Provider: LYNDON LÓPEZ Date/Time of Note DATE: 12/11/18 TIME: 13:21 Hx of Present Illness 58-year-old [place] gentleman who was admitted to this facility in the last 4 weeks. He has a very long history of Graves' disease of several decades maintained intermittently on antithyroid drug therapy. He had been off of his medication between July and the last admission. Family reports after his a dmission here he has been taking his methimazole every day. Curiously his blood test actually looks significantly worse. Sleeping in bed Cardiovascular: palpitations Neurologic: other (Tremor) Past Medical History Medical History: diabetes, hyperthyroid (Graves' disease with Graves' orbitopathy) Home Meds Active Scripts Methimazole* (Methimazole*) 5 Mg Tablet, 10 MG PO BID for 30 Days, TAB Prov:ASHLY MANTILLA MD 11/28/18 Metformin* (Glucophage*) 500 Mg Tab, 1000 MG PO BID WITH MEALS for 30 Days, TAB Prov:ASHLY MANTILLA MD 11/28/18 Reported Medications Glipizide* (Glipizide*) 5 Mg Tablet, 5 MG PO BID, TAB 11/23/18 Metformin* (Glucophage*) 1,000 Mg Tablet, 1000 MG PO BID, #60 TAB 11/23/18 Medications Current Medications IV Flush (NS 3 ml) 3 ml PER PROTOCOL IV ; Start 12/10/18 at 23:30 Ondansetron HCl (Zofran Inj) 4 mg Q6H PRN IV NAUSEA/VOMITING Last administered on 12/11/18at 03:36; Admin Dose 4 MG; Start 12/10/18 at 23:30 Acetaminophen (Tylenol Tab) 650 mg Q6H PRN PO .PAIN 1-3 OR TEMP; Start 12/10/18 at 23:30 Bisacodyl (Dulcolax) 5 mg DAILY PRN PO .CONSTIPATION; Start 12/10/18 at 23:30 Vancomycin HCl (Vanco Iv Per Pharmacy) VANCOMYCIN PER PHARMACY PER PROTOCOL XX ; Start 12/10/18 at 23:30 Cefepime HCl 50 ml @ 100 mls/hr Q12 IVPB Last administered on 12/11/18at 09:18; Admin Dose 100 MLS/HR; Start 12/11/18 at 09:00 Vancomycin HCl 1.25 gm/Sodium Chloride 250 ml @ 83.333 mls/ hr Q12H IVPB Last administered on 12/11/18at 04:16; Admin Dose 83.333 MLS/HR; Start 12/11/18 at 03:00 Diagnostic Test (Pha) (Accu-Chek) 1 ea 02 XX ; Start 12/12/18 at 02:00 Insulin Aspart (Novolog Insulin Pen) NOVOLOG *MILD* ALGORITHM WITH MEALS BEDTIME SC ; Start 12/11/18 at 07:55 Miscellaneous Information 1 ea NOTE XX ; Start 12/11/18 at 06:30 Glucose (Glutose) 15 gm Q15M PRN PO DECREASED GLUCOSE; Start 12/11/18 at 06:30 Glucose (Glutose) 22.5 gm Q15M PRN PO DECREASED GLUCOSE; Start 12/11/18 at 06:30 Dextrose (D50w Syringe) 25 ml Q15M PRN IV DECREASED GLUCOSE; Start 12/11/18 at 06:30 Dextrose (D50w Syringe) 50 ml Q15M PRN IV DECREASED GLUCOSE; Start 12/11/18 at 06:30 Glucagon (Glucagen) 1 mg Q15M PRN IM DECREASED GLUCOSE; Start 12/11/18 at 06:30 Glucose (Glutose) 15 gm Q15M PRN BUCCAL DECREASED GLUCOSE; Start 12/11/18 at 06:30 Propranolol HCl (Inderal) 60 mg Q6H PO Last administered on 12/11/18at 09:18; Admin Dose 60 MG; Start 12/11/18 at 09:00 Docusate Sodium (Colace) 100 mg Q12 PO ; Start 12/11/18 at 21:00 Insulin Glargine (Lantus) 10 units DAILY@0800 SC ; Start 12/12/18 at 08:00 Methimazole (Tapazole) 30 mg AC BREAKFAST PO ; Start 12/12/18 at 07:25; Status UNV Propylthiouracil (Ptu) 300 mg ONCE ONCE PO ; Start 12/11/18 at 13:30; Stop 12/11/18 at 13:31; Status UNV Allergies: Coded Allergies: No Known Allergy (Unverified , 11/23/18) Past Surgical History Past Surgical Hx: noncontributory Family History Significant Family History: no pertinent family hx Social History Alcohol Use: none Smoking Status: Never smoker Drug Use: none Exam/Review of Systems Exam Vitals Vital Signs Date Temp Pulse Resp B/P (MAP) Pulse Ox O2 O2 Flow FiO2 Time Delivery Rate 12/11/18 86 12:00 12/11/18 98.4 20 143/74 96 Room Air 11:43 (97) Intake and Output 12/10/18 12/10/18 12/11/18 1515:00 23:00 07:00 IntakeIntake Total 100 ml OutputOutput Total 150 ml BalanceBalance -50 ml Exam Sleeping in bed. Eyes: other (Positive exophthalmos) Neck: thyromegaly (Smooth without nodules) Respiratory: clear to auscultation, normal air movement Cardiovascular: regular rate and rhythm, nl pulses Gastrointestinal: soft, nl liver, spleen, non-tender Results Result Diagram: 12/11/1815 12/11/18 0615 Results 24hrs Laboratory Tests Test 12/10/18 18:13 12/10/18 18:18 12/10/18 20:29 12/10/18 20:37 White Blood Count 8.1 # Red Blood Count 4.03 L Hemoglobin 10.3 L Hematocrit 33.3 L Mean Corpuscular Volume 82.6 Mean Corpuscular 25.6 L Hemoglobin Mean Corpuscular 30.9 L Hemoglobin Concent Red Cell Distribution 15.5 H Width Platelet Count 186 Mean Platelet Volume 10.1 Immature Granulocytes % 0.600 H Neutrophils % Segmented Neutrophils 70 % (Manual) Lymphocytes % Lymphocytes % (Manual) 14 L Reactive Lymphocytes 3 H % (Manual) Monocytes % Monocytes % (Manual) 13 H Eosinophils % Basophils % Nucleated Red Blood 0.0 Cells % Immature Granulocytes # 0.050 H Neutrophils # Lymphocytes (Manual) 1.1 Lymphocytes # Reactive Lymphocytes # 0.2 H Monocytes # Monocytes # (Manual) 1.0 H Eosinophils # Basophils # Nucleated Red Blood Cells # Platelet Estimate NORMAL Prothrombin Time 13.3 Prothrombin Time Ratio 1.0 INR International 1.00 Normalized Ratio Activated 29.4 Partial Thromboplast Time Sodium Level 139 Potassium Level 4.3 Chloride Level 97 Carbon Dioxide Level 31 Anion Gap 11 Blood Urea Nitrogen 12 Creatinine 0.85 Est Glomerular Filtrat > 60 Rate mL/min Glucose Level 110 Calcium Level 10.7 H Total Bilirubin 0.3 Direct Bilirubin 0.00 Indirect Bilirubin 0.3 Aspartate Amino 43 Transf (AST/SGOT) Alanine 17 Aminotransferase (ALT/SG PT) Alkaline Phosphatase 170 H Troponin I < 0.012 Total Protein 8.0 Albumin 3.6 Globulin 4.40 H Albumin/Globulin Ratio 0.81 Amylase Level 67 Lipase 71 Thyroid Stimulating < 0.015 L Hormone (TSH) Free Thyroxine Index 11.24 H Thyroxine (T4) 18.3 H Triiodothyronine (T3) 61.4 H Uptake POC Venous Lactate 2.4 *H 1.8 Urine Color YELLOW Urine Clarity CLEAR Urine pH 5.0 Urine Specific [place] 1.010 Urine Ketones TRACE A Urine Nitrite NEGATIVE Urine Bilirubin NEGATIVE Urine Urobilinogen NEGATIVE Urine Leukocyte Esterase NEGATIVE Urine Hemoglobin NEGATIVE Urine Glucose NEGATIVE Urine Total Protein NEGATIVE Test 12/10/18 22:33 12/11/18 06:15 12/11/18 07:59 12/11/18 11:29 Lactic Acid Level 1.0 White Blood Count 7.2 Red Blood Count 3.39 L Hemoglobin 9.0 L Hematocrit 28.1 L Mean Corpuscular Volume 82.9 Mean Corpuscular 26.5 L Hemoglobin Mean Corpuscular 32.0 Hemoglobin Concent Red Cell Distribution 15.7 H Width Platelet Count 157 Mean Platelet Volume 9.9 Immature Granulocytes % 0.400 Neutrophils % Segmented Neutrophils 61 % (Manual) Lymphocytes % Lymphocytes % (Manual) 13 L Reactive Lymphocytes 7 H % (Manual) Monocytes % Monocytes % (Manual) 17 H Eosinophils % Eosinophils % (Manual) 1 Basophils % Myelocytes % (Manual) 1 H Nucleated Red Blood 0.0 Cells % Immature Granulocytes # 0.030 Neutrophils # Lymphocytes (Manual) 0.9 Lymphocytes # Reactive Lymphocytes # 0.5 H Monocytes # Monocytes # (Manual) 1.2 H Eosinophils # Basophils # Myelocytes # 0.0 Nucleated Red Blood Cells # Platelet Estimate NORMAL Giant Platelets 5 H Erythrocyte 79 H Sedimentation Rate Sodium Level 138 Potassium Level 4.0 Chloride Level 104 Carbon Dioxide Level 30 Anion Gap 4 L Blood Urea Nitrogen 10 Creatinine 0.65 Est Glomerular Filtrat > 60 Rate mL/min Glucose Level 123 Calcium Level 9.6 Magnesium Level 1.1 L Total Bilirubin 0.2 Direct Bilirubin 0.00 Indirect Bilirubin 0.2 Aspartate Amino 33 Transf (AST/SGOT) Alanine 24 Aminotransferase (ALT/SG PT) Alkaline Phosphatase 120 C-Reactive Protein 6.2 H Total Protein 6.6 # Albumin 2.8 L Globulin 3.80 H Albumin/Globulin Ratio 0.73 Free Thyroxine 5.12 H Free Triiodothyronine 5.70 H (T3) pg/mL Bedside Glucose 107 137 Medications Medication Current Medications IV Flush (NS 3 ml) 3 ml PER PROTOCOL IV ; Start 12/10/18 at 23:30 Ondansetron HCl (Zofran Inj) 4 mg Q6H PRN IV NAUSEA/VOMITING Last administered on 12/11/18at 03:36; Admin Dose 4 MG; Start 12/10/18 at 23:30 Acetaminophen (Tylenol Tab) 650 mg Q6H PRN PO .PAIN 1-3 OR TEMP; Start 12/10/18 at 23:30 Bisacodyl (Dulcolax) 5 mg DAILY PRN PO .CONSTIPATION; Start 12/10/18 at 23:30 Vancomycin HCl (Vanco Iv Per Pharmacy) VANCOMYCIN PER PHARMACY PER PROTOCOL XX ; Start 12/10/18 at 23:30 Cefepime HCl 50 ml @ 100 mls/hr Q12 IVPB Last administered on 12/11/18at 09:18; Admin Dose 100 MLS/HR; Start 12/11/18 at 09:00 Vancomycin HCl 1.25 gm/Sodium Chloride 250 ml @ 83.333 mls/ hr Q12H IVPB Last administered on 12/11/18at 04:16; Admin Dose 83.333 MLS/HR; Start 12/11/18 at 03:00 Diagnostic Test (Pha) (Accu-Chek) XX ; Start 12/12/18 at 02:00 Insulin Aspart (Novolog Insulin Pen) NOVOLOG *MILD* ALGORITHM WITH MEALS BEDTIME SC ; Start 12/11/18 at 07:55 Miscellaneous Information 1 ea NOTE XX ; Start 12/11/18 at 06:30 Glucose (Glutose) 15 gm Q15M PRN PO DECREASED GLUCOSE; Start 12/11/18 at 06:30 Glucose (Glutose) 22.5 gm Q15M PRN PO DECREASED GLUCOSE; Start 12/11/18 at 06:30 Dextrose (D50w Syringe) 25 ml Q15M PRN IV DECREASED GLUCOSE; Start 12/11/18 at 06:30 Dextrose (D50w Syringe) 50 ml Q15M PRN IV DECREASED GLUCOSE; Start 12/11/18 at 06:30 Glucagon (Glucagen) 1 mg Q15M PRN IM DECREASED GLUCOSE; Start 12/11/18 at 06:30 Glucose (Glutose) 15 gm Q15M PRN BUCCAL DECREASED GLUCOSE; Start 12/11/18 at 06:30 Propranolol HCl (Inderal) 60 mg Q6H PO Last administered on 12/11/18at 09:18; Admin Dose 60 MG; Start 12/11/18 at 09:00 Docusate Sodium (Colace) 100 mg Q12 PO ; Start 12/11/18 at 21:00 Insulin Glargine (Lantus) 10 units DAILY@0800 SC ; Start 12/12/18 at 08:00 Methimazole (Tapazole) 30 mg AC BREAKFAST PO ; Start 12/12/18 at 07:25; Status UNV Propylthiouracil (Ptu) 300 mg ONCE ONCE PO ; Start 12/11/18 at 13:30; Stop 12/11/18 at 13:31; Status UNV ANA GARCIA MD Dec 11, 2018 13:26
[2018-12-11] MEDS ORDERED: PROPYLTHIOURACIL 50 MG TAB PO ONE (14:00)
--- NOTE | 2018-12-11 15:21 | PN ---
Date/Time of Note Date/Time of Note DATE: 12/11/18 TIME: 13:05 Assessment/Plan VTE Prophylaxis [place] [facility] [place]: 3 [place]CD applied [place] [facility] [place] Yes SCD contraindicated: low risk/ambulating Pharmacological prophylaxis: NA/contraindicated Pharm contraindication: low risk/ambulating Lines/Catheters IV Catheter Type (from [facility]): Saline Lock Urinary Cath still in place: No Assessment/Plan Hospital Course S: feels better, no more fever, famly concerend about poor apetite since last admission O: General: A&O x3, answering questions appropriately, no distress, HEENT: NC/ AT. PERRL. EOM intact Neck: supple CVS: S1, S2, RRR. no murmurs. no pain on chest wall palpation Lungs: CTA b/l. no wheezing or rhonchi Abd: soft, nontender, +BS Ext: moving all extremities skin: no rashes assessment and plan: #1 sepsis vs SIRS: -source is unclear, this is patient's 2nd episode in the last few weeks -unlikely to be 2/2 TB -related to hyperthyroidism??, ?autoimmune -f/u blood and urine cultures -basic influenza screen negative -ID consult -will also get 2D echo -CRP higher than last visit, ESR less however 2. acute RTI -?viral, no significant cough per family -hx of + quantiferon gold, TB r/o ongoing -CT chest from last admission reviewed 3. Chronic hyperthyroidism: still uncontrolled -continue home methimazole and propranolol -endo consult ? -biopsy? #3 Diabetes mellitus: -monitor levels and titrate meds as indicated -a1C 6.1 #4. DVT GI prophylaxis: SCDs, no GI prophylaxis indicated Further treatment strategy will be implemented as per the clinical course. Result Diagram: 12/11/18 0615 12/11/18 0615 Results 24hrs Laboratory Tests Test 12/10/18 18:13 12/10/18 18:18 12/10/18 20:29 12/10/18 20:37 White Blood Count 8.1 # Red Blood Count 4.03 L Hemoglobin 10.3 L Hematocrit 33.3 L Mean Corpuscular Volume 82.6 Mean Corpuscular 25.6 L Hemoglobin Mean Corpuscular 30.9 L Hemoglobin Concent Red Cell Distribution 15.5 H Width Platelet Count 186 Mean Platelet Volume 10.1 Immature Granulocytes % 0.600 H Neutrophils % Segmented Neutrophils 70 % (Manual) Lymphocytes % Lymphocytes % (Manual) 14 L Reactive Lymphocytes 3 H % (Manual) Monocytes % Monocytes % (Manual) 13 H Eosinophils % Basophils % Nucleated Red Blood 0.0 Cells % Immature Granulocytes # 0.050 H Neutrophils # Lymphocytes (Manual) 1.1 Lymphocytes # Reactive Lymphocytes # 0.2 H Monocytes # Monocytes # (Manual) 1.0 H Eosinophils # Basophils # Nucleated Red Blood Cells # Platelet Estimate NORMAL Prothrombin Time 13.3 Prothrombin Time Ratio 1.0 INR International 1.00 Normalized Ratio Activated 29.4 Partial Thromboplast Time Sodium Level 139 Potassium Level 4.3 Chloride Level 97 Carbon Dioxide Level 31 Anion Gap 11 Blood Urea Nitrogen 12 Creatinine 0.85 Est Glomerular Filtrat > 60 Rate mL/min Glucose Level 110 Calcium Level 10.7 H Total Bilirubin 0.3 Direct Bilirubin 0.00 Indirect Bilirubin 0.3 Aspartate Amino 43 Transf (AST/SGOT) Alanine 17 Aminotransferase (ALT/SG PT) Alkaline Phosphatase 170 H Troponin I < 0.012 Total Protein 8.0 Albumin 3.6 Globulin 4.40 H Albumin/Globulin Ratio 0.81 Amylase Level 67 Lipase 71 Thyroid Stimulating < 0.015 L Hormone (TSH) Free Thyroxine Index 11.24 H Thyroxine (T4) 18.3 H Triiodothyronine (T3) 61.4 H Uptake POC Venous Lactate 2.4 *H 1.8 Urine Color YELLOW Urine Clarity CLEAR Urine pH 5.0 Urine Specific [place] 1.010 Urine Ketones TRACE A Urine Nitrite NEGATIVE Urine Bilirubin NEGATIVE Urine Urobilinogen NEGATIVE Urine Leukocyte Esterase NEGATIVE Urine Hemoglobin NEGATIVE Urine Glucose NEGATIVE Urine Total Protein NEGATIVE Test 12/10/18 22:33 12/11/18 06:15 12/11/18 07:59 12/11/18 11:29 Lactic Acid Level 1.0 White Blood Count 7.2 Red Blood Count 3.39 L Hemoglobin 9.0 L Hematocrit 28.1 L Mean Corpuscular Volume 82.9 Mean Corpuscular 26.5 L Hemoglobin Mean Corpuscular 32.0 Hemoglobin Concent Red Cell Distribution 15.7 H Width Platelet Count 157 Mean Platelet Volume 9.9 Immature Granulocytes % 0.400 Neutrophils % Segmented Neutrophils 61 % (Manual) Lymphocytes % Lymphocytes % (Manual) 13 L Reactive Lymphocytes 7 H % (Manual) Monocytes % Monocytes % (Manual) 17 H Eosinophils % Eosinophils % (Manual) 1 Basophils % Myelocytes % (Manual) 1 H Nucleated Red Blood 0.0 Cells % Immature Granulocytes # 0.030 Neutrophils # Lymphocytes (Manual) 0.9 Lymphocytes # Reactive Lymphocytes # 0.5 H Monocytes # Monocytes # (Manual) 1.2 H Eosinophils # Basophils # Myelocytes # 0.0 Nucleated Red Blood Cells # Platelet Estimate NORMAL Giant Platelets 5 H Erythrocyte 79 H Sedimentation Rate Sodium Level 138 Potassium Level 4.0 Chloride Level 104 Carbon Dioxide Level 30 Anion Gap 4 L Blood Urea Nitrogen 10 Creatinine 0.65 Est Glomerular Filtrat > 60 Rate mL/min Glucose Level 123 Calcium Level 9.6 Magnesium Level 1.1 L Total Bilirubin 0.2 Direct Bilirubin 0.00 Indirect Bilirubin 0.2 Aspartate Amino 33 Transf (AST/SGOT) Alanine 24 Aminotransferase (ALT/SG PT) Alkaline Phosphatase 120 C-Reactive Protein 6.2 H Total Protein 6.6 # Albumin 2.8 L Globulin 3.80 H Albumin/Globulin Ratio 0.73 Free Thyroxine 5.12 H Free Triiodothyronine 5.70 H (T3) pg/mL Bedside Glucose 107 137 Exam/Review of Systems Exam Vitals Vital Signs Date Temp Pulse Resp B/P (MAP) Pulse Ox O2 O2 Flow FiO2 Time Delivery Rate 12/11/18 86 12:00 12/11/18 98.4 20 143/74 96 Room Air 11:43 (97) Intake and Output 12/10/18 12/10/18 12/11/18 1515:00 23:00 07:00 IntakeIntake Total 100 ml OutputOutput Total 150 ml BalanceBalance -50 ml Results Results 24hrs Laboratory Tests Test 12/10/18 18:13 12/10/18 18:18 12/10/18 20:29 12/10/18 20:37 White Blood Count 8.1 # Red Blood Count 4.03 L Hemoglobin 10.3 L Hematocrit 33.3 L Mean Corpuscular Volume 82.6 Mean Corpuscular 25.6 L Hemoglobin Mean Corpuscular 30.9 L Hemoglobin Concent Red Cell Distribution 15.5 H Width Platelet Count 186 Mean Platelet Volume 10.1 Immature Granulocytes % 0.600 H Neutrophils % Segmented Neutrophils 70 % (Manual) Lymphocytes % Lymphocytes % (Manual) 14 L Reactive Lymphocytes 3 H % (Manual) Monocytes % Monocytes % (Manual) 13 H Eosinophils % Basophils % Nucleated Red Blood 0.0 Cells % Immature Granulocytes # 0.050 H Neutrophils # Lymphocytes (Manual) 1.1 Lymphocytes # Reactive Lymphocytes # 0.2 H Monocytes # Monocytes # (Manual) 1.0 H Eosinophils # Basophils # Nucleated Red Blood Cells # Platelet Estimate NORMAL Prothrombin Time 13.3 Prothrombin Time Ratio 1.0 INR International 1.00 Normalized Ratio Activated 29.4 Partial Thromboplast Time Sodium Level 139 Potassium Level 4.3 Chloride Level 97 Carbon Dioxide Level 31 Anion Gap 11 Blood Urea Nitrogen 12 Creatinine 0.85 Est Glomerular Filtrat > 60 Rate mL/min Glucose Level 110 Calcium Level 10.7 H Total Bilirubin 0.3 Direct Bilirubin 0.00 Indirect Bilirubin 0.3 Aspartate Amino 43 Transf (AST/SGOT) Alanine 17 Aminotransferase (ALT/SG PT) Alkaline Phosphatase 170 H Troponin I < 0.012 Total Protein 8.0 Albumin 3.6 Globulin 4.40 H Albumin/Globulin Ratio 0.81 Amylase Level 67 Lipase 71 Thyroid Stimulating < 0.015 L Hormone (TSH) Free Thyroxine Index 11.24 H Thyroxine (T4) 18.3 H Triiodothyronine (T3) 61.4 H Uptake POC Venous Lactate 2.4 *H 1.8 Urine Color YELLOW Urine Clarity CLEAR Urine pH 5.0 Urine Specific [place] 1.010 Urine Ketones TRACE A Urine Nitrite NEGATIVE Urine Bilirubin NEGATIVE Urine Urobilinogen NEGATIVE Urine Leukocyte Esterase NEGATIVE Urine Hemoglobin NEGATIVE Urine Glucose NEGATIVE Urine Total Protein NEGATIVE Test 12/10/18 22:33 12/11/18 06:15 12/11/18 07:59 12/11/18 11:29 Lactic Acid Level 1.0 White Blood Count 7.2 Red Blood Count 3.39 L Hemoglobin 9.0 L Hematocrit 28.1 L Mean Corpuscular Volume 82.9 Mean Corpuscular 26.5 L Hemoglobin Mean Corpuscular 32.0 Hemoglobin Concent Red Cell Distribution 15.7 H Width Platelet Count 157 Mean Platelet Volume 9.9 Immature Granulocytes % 0.400 Neutrophils % Segmented Neutrophils 61 % (Manual) Lymphocytes % Lymphocytes % (Manual) 13 L Reactive Lymphocytes 7 H % (Manual) Monocytes % Monocytes % (Manual) 17 H Eosinophils % Eosinophils % (Manual) 1 Basophils % Myelocytes % (Manual) 1 H Nucleated Red Blood 0.0 Cells % Immature Granulocytes # 0.030 Neutrophils # Lymphocytes (Manual) 0.9 Lymphocytes # Reactive Lymphocytes # 0.5 H Monocytes # Monocytes # (Manual) 1.2 H Eosinophils # Basophils # Myelocytes # 0.0 Nucleated Red Blood Cells # Platelet Estimate NORMAL Giant Platelets 5 H Erythrocyte 79 H Sedimentation Rate Sodium Level 138 Potassium Level 4.0 Chloride Level 104 Carbon Dioxide Level 30 Anion Gap 4 L Blood Urea Nitrogen 10 Creatinine 0.65 Est Glomerular Filtrat > 60 Rate mL/min Glucose Level 123 Calcium Level 9.6 Magnesium Level 1.1 L Total Bilirubin 0.2 Direct Bilirubin 0.00 Indirect Bilirubin 0.2 Aspartate Amino 33 Transf (AST/SGOT) Alanine 24 Aminotransferase (ALT/SG PT) Alkaline Phosphatase 120 C-Reactive Protein 6.2 H Total Protein 6.6 # Albumin 2.8 L Globulin 3.80 H Albumin/Globulin Ratio 0.73 Free Thyroxine 5.12 H Free Triiodothyronine 5.70 H (T3) pg/mL Bedside Glucose 107 137 Medications Medication Current Medications IV Flush (NS 3 ml) 3 ml PER PROTOCOL IV ; Start 12/10/18 at 23:30 Ondansetron HCl (Zofran Inj) 4 mg Q6H PRN IV NAUSEA/VOMITING Last administered on 12/11/18at 03:36; Admin Dose 4 MG; Start 12/10/18 at 23:30 Acetaminophen (Tylenol Tab) 650 mg Q6H PRN PO .PAIN 1-3 OR TEMP; Start 12/10/18 at 23:30 Docusate Sodium (Colace) 100 mg Q12H PRN PO .CONSTIPATION; Start 12/10/18 at 23:30 Bisacodyl (Dulcolax) 5 mg DAILY PRN PO .CONSTIPATION; Start 12/10/18 at 23:30 Vancomycin HCl (Vanco Iv Per Pharmacy) VANCOMYCIN PER PHARMACY PER PROTOCOL XX ; Start 12/10/18 at 23:30 Cefepime HCl 50 ml @ 100 mls/hr Q12 IVPB Last administered on 12/11/18at 09:18; Admin Dose 100 MLS/HR; Start 12/11/18 at 09:00 Vancomycin HCl 1.25 gm/Sodium Chloride 250 ml @ 83.333 mls/ hr Q12H IVPB Last administered on 12/11/18at 04:16; Admin Dose 83.333 MLS/HR; Start 12/11/18 at 03:00 Methimazole (Tapazole) 10 mg BID PO Last administered on 12/11/18at 02:00; Admin Dose 10 MG; Start 12/11/18 at 02:00 Diagnostic Test (Pha) (Accu-Chek) 1 ea 02 XX ; Start 12/12/18 at 02:00 Insulin Aspart (Novolog Insulin Pen) NOVOLOG *MILD* ALGORITHM WITH MEALS BEDTI RI SC ; Start 12/11/18 at 07:55 Miscellaneous Information 1 ea NOTE XX ; Start 12/11/18 at 06:30 Glucose (Glutose) 15 gm Q15M PRN PO DECREASED GLUCOSE; Start 12/11/18 at 06:30 Glucose (Glutose) 22.5 gm Q15M PRN PO DECREASED GLUCOSE; Start 12/11/18 at 06:30 Dextrose (D50w Syringe) 25 ml Q15M PRN IV DECREASED GLUCOSE; Start 12/11/18 at 06:30 Dextrose (D50w Syringe) 50 ml Q15M PRN IV DECREASED GLUCOSE; Start 12/11/18 at 06:30 Glucagon (Glucagen) 1 mg Q15M PRN IM DECREASED GLUCOSE; Start 12/11/18 at 06:30 Glucose (Glutose) 15 gm Q15M PRN BUCCAL DECREASED GLUCOSE; Start 12/11/18 at 06:30 Propranolol HCl (Inderal) 60 mg Q6H PO Last administered on 12/11/18at 09:18; Admin Dose 60 MG; Start 12/11/18 at 09:00 YOLI ZAMORANO Dec 11, 2018 13:16
[2018-12-11] MEDS: DOCUSATE SODIUM 100 MG CAP PO SCH (21:43)
[2018-12-12] VITALS (10 sets, daily range): BP systolic 115–145; BP diastolic 54–68; PULSE 79–88; RESP 18–22
[2018-12-12] MEDS: ACCU-CHEK XX SCH (02:00)
[2018-12-12] MEDS: VANCOMYCIN HCL 1.25 GM in SOD CHLORIDE 0.9% 250 ML IVPB SCH ×2 (03:09→14:57)
[2018-12-12] MEDS: PROPRANOLOL 20 MG TAB PO SCH ×4 (03:18→21:38)
[2018-12-12] MEDS ORDERED: METHIMAZOLE 5 MG TAB PO SCH (07:25)
[2018-12-12] MEDS ORDERED: INSULIN GLARGINE [LANTus] (100 UNITS/ML) SYG SC SCH (08:00)
[2018-12-12] MEDS: DOCUSATE SODIUM 100 MG CAP PO SCH ×2 (09:14→21:37)
[2018-12-12] MEDS: INSULIN ASPART [NOVOLOG] 3 ML PEN SC SCH ×4 (09:16→21:52)
[2018-12-12] MEDS: CEFEPIME 2GM/50 ML (PMX) 50 ML IVPB SCH ×2 (09:20→21:38)
--- NOTE | 2018-12-12 10:50 | PN ---
Date/Time of Note Date/Time of Note DATE: 12/12/18 TIME: 10:29 Assessment/Plan VTE Prophylaxis Risk score (from [facility])>0 risk: 3 [place] [facility] [place] Pharmacological prophylaxis: NA/contraindicated Pharm contraindication: low risk/ambulating Lines/Catheters [facility] Saline Lock Urinary Cath still in place: No Assessment/Plan Hospital Course S: fever and HR have continues to improve, still with poor apetite O: General: A&O x3, answering questions appropriately, no distress, HEENT: NC/ AT. PERRL. EOM intact Neck: supple CVS: S1, S2, RRR. no murmurs. no pain on chest wall palpation Lungs: CTA b/l. no wheezing or rhonchi Abd: soft, nontender, +BS Ext: moving all extremities skin: no rashes assessment and plan: #1 sepsis vs SIRS: -source is unclear, this is patient's 2nd episode in the last few weeks -unlikely to be 2/2 TB -related to hyperthyroidism??, ?autoimmune -f/u blood and urine cultures -basic influenza screen negative -ID consult 2. acute RTI -?viral, no significant cough per family -hx of + quantiferon gold, TB r/o ongoing sputum X1 negative -CT chest from last admission reviewed 3. Chronic hyperthyroidism: still uncontrolled -continue methimazole and propranolol - appreciate endo consult -thyroid USS showed diffusely enlarged thyroid gland without nodule #3 Diabetes mellitus: poor control -monitor levels and titrate meds as indicated -a1C 6.1 #4. Poor apetite and weight loss -likely related to #3, per family patient had been well controlled for a long time and then he fell off his meds and has just recently been put back on them. -continue diet supplements, PT PRN DVT GI prophylaxis: SCDs, no GI prophylaxis indicated Further treatment strategy will be implemented as per the clinical course. Result Diagram: 12/12/1862212/12/18622 Results 24hrs Laboratory Tests Test 12/11/18 11:29 12/11/18 17:23 12/11/18 21:41 12/12/18 03:13 Bedside Glucose 137 156 193 242 H Test 12/12/18 06:23 12/12/18 09:06 White Blood Count 6.8 Red Blood Count 3.45 L Hemoglobin 9.0 L Hematocrit 27.9 L Mean Corpuscular Volume 80.9 L Mean Corpuscular 26.1 L Hemoglobin Mean Corpuscular 32.3 Hemoglobin Concent Red Cell Distribution 15.4 H Width Platelet Count 156 Mean Platelet Volume 9.6 Immature Granulocytes % 0.400 Neutrophils % Segmented Neutrophils 46 % (Manual) Band Neutrophils % 1 (Manual) Lymphocytes % Lymphocytes % (Manual) 21 Reactive Lymphocytes 1 H % (Manual) Monocytes % Monocytes % (Manual) 28 H Eosinophils % Eosinophils % (Manual) 1 Basophils % Basophils % (Manual) 1 Myelocytes % (Manual) 1 H Nucleated Red Blood 0.0 Cells % Immature Granulocytes # 0.030 Neutrophils # Neutrophils # (Manual) 3.1 Band Neutrophils # 0.0 Lymphocytes (Manual) 1.4 Lymphocytes # Reactive Lymphocytes # 0.0 Monocytes # Monocytes # (Manual) 1.9 H Eosinophils # Basophils # Basophils # (Manual) 0.0 Myelocytes # 0.0 Nucleated Red Blood Cells # Platelet Estimate NORMAL Polychromasia 3+ Hypochromasia 2+ Poikilocytosis 1+ Anisocytosis 1+ Microcytosis 1+ Target Cells 1+ Sodium Level 135 Potassium Level 4.1 Chloride Level 97 Carbon Dioxide Level 31 Anion Gap 7 Blood Urea Nitrogen 8 Creatinine 0.67 Est Glomerular Filtrat > 60 Rate mL/min Glucose Level 240 #H Hemoglobin A1c 5.6 Calcium Level 9.6 Magnesium Level 1.7 Bedside Glucose 258 H Exam/Review of Systems Exam Vitals Vital Signs Date Temp Pulse Resp B/P (MAP) Pulse Ox O2 O2 Flow FiO2 Time Delivery Rate 12/12/18 79 08:27 12/12/18 97.6 22 131/66 96 Room Air 07:21 (87) Intake and Output 12/11/18 12/11/18 12/12/18 1515:00 23:00 07:00 IntakeIntake Total 400 ml 1020 ml 400 ml BalanceBalance 400 ml 1020 ml 400 ml Results Results 24hrs Laboratory Tests Test 12/11/18 11:29 12/11/18 17:23 12/11/18 21:41 12/12/18 03:13 Bedside Glucose 137 156 193 242 H Test 12/12/18 06:23 12/12/18 09:06 White Blood Count 6.8 Red Blood Count 3.45 L Hemoglobin 9.0 L Hematocrit 27.9 L Mean Corpuscular Volume 80.9 L Mean Corpuscular 26.1 L Hemoglobin Mean Corpuscular 32.3 Hemoglobin Concent Red Cell Distribution 15.4 H Width Platelet Count 156 Mean Platelet Volume 9.6 Immature Granulocytes % 0.400 Neutrophils % Segmented Neutrophils 46 % (Manual) Band Neutrophils % 1 (Manual) Lymphocytes % Lymphocytes % (Manual) 21 Reactive Lymphocytes 1 H % (Manual) Monocytes % Monocytes % (Manual) 28 H Eosinophils % Eosinophils % (Manual) 1 Basophils % Basophils % (Manual) 1 Myelocytes % (Manual) 1 H Nucleated Red Blood 0.0 Cells % Immature Granulocytes # 0.030 Neutrophils # Neutrophils # (Manual) 3.1 Band Neutrophils # 0.0 Lymphocytes (Manual) 1.4 Lymphocytes # Reactive Lymphocytes # 0.0 Monocytes # Monocytes # (Manual) 1.9 H Eosinophils # Basophils # Basophils # (Manual) 0.0 Myelocytes # 0.0 Nucleated Red Blood Cells # Platelet Estimate NORMAL Polychromasia 3+ Hypochromasia 2+ Poikilocytosis 1+ Anisocytosis 1+ Microcytosis 1+ Target Cells 1+ Sodium Level 135 Potassium Level 4.1 Chloride Level 97 Carbon Dioxide Level 31 Anion Gap 7 Blood Urea Nitrogen 8 Creatinine 0.67 Est Glomerular Filtrat > 60 Rate mL/min Glucose Level 240 #H Hemoglobin A1c 5.6 Calcium Level 9.6 Magnesium Level 1.7 Bedside Glucose 258 H Imaging Imaging PROCEDURE: US Thyroid. CLINICAL INDICATION: Thyroid nodule. Palpable fullness. Hyperthyroidism TECHNIQUE: Multiple sonographic images of the thyroid were obtained. Transverse and sagittal imaging of the gland and tamera-thyroidal tissues was performed with a high frequency linear array transducer. Color interrogation was performed as well. The images were reviewed on a PACS workstation. COMPARISON: No prior studies are available for comparison. FINDINGS: Thyroid Size: Right lobe: 7.7 x 2.1 x 2.8 cm Left lobe: 6.7 x 1.9 x 2.7 cm Appearance: Echogenicity: normal Vascularity: normal Right thyroid nodules: None Left thyroid nodules: None Additional: Adenopathy: None Soft tissues: Normal IMPRESSION: Enlarged thyroid with no discrete nodule. RPTAT: PP .Adonis Zuniga MD, MD Date Time Electronically viewed and signed by .Adonis Zuniga MD, MD on 12/11/2018 14:39 .S/ CC: YOLI ZAMORANO [phone] Medications Medication Current Medications IV Flush (NS 3 ml) 3 ml PER PROTOCOL IV ; Start 12/10/18 at 23:30 Ondansetron HCl (Zofran Inj) 4 mg Q6H PRN IV NAUSEA/VOMITING Last administered on 12/11/18at 03:36; Admin Dose 4 MG; Start 12/10/18 at 23:30 Acetaminophen (Tylenol Tab) 650 mg Q6H PRN PO .PAIN 1-3 OR TEMP; Start 12/10/18 at 23:30 Bisacodyl (Dulcolax) 5 mg DAILY PRN PO .CONSTIPATION; Start 12/10/18 at 23:30 Vancomycin HCl (Vanco Iv Per Pharmacy) VANCOMYCIN PER PHARMACY PER PROTOCOL XX ; Start 12/10/18 at 23:30 Cefepime HCl 50 ml @ 100 mls/hr Q12 IVPB Last administered on 12/12/18at 09:20; Admin Dose 100 MLS/HR; Start 12/11/18 at 09:00 Vancomycin HCl 1.25 gm/Sodium Chloride 250 ml @ 83.333 mls/ hr Q12H IVPB Last administered on 12/12/18at 03:09; Admin Dose 83.333 MLS/HR; Start 12/11/18 at 03:00 Diagnostic Test (Pha) (Accu-Chek) 1 ea 02 XX ; Start 12/12/18 at 02:00 Insulin Aspart (Novolog Insulin Pen) NOVOLOG *MILD* ALGORITHM WITH MEALS BEDTIME SC Last administered on 12/12/18at 09:16; Admin Dose 3 UNIT; Start 12/11/18 at 07:55 Miscellaneous Information 1 ea NOTE XX ; Start 12/11/18 at 06:30 Glucose (Glutose) 15 gm Q15M PRN PO DECREASED GLUCOSE; Start 12/11/18 at 06:30 Glucose (Glutose) 22.5 gm Q15M PRN PO DECREASED GLUCOSE; Start 12/11/18 at 06:30 Dextrose (D50w Syringe) 25 ml Q15M PRN IV DECREASED GLUCOSE; Start 12/11/18 at 06:30 Dextrose (D50w Syringe) 50 ml Q15M PRN IV DECREASED GLUCOSE; Start 12/11/18 at 06:30 Glucagon (Glucagen) 1 mg Q15M PRN IM DECREASED GLUCOSE; Start 12/11/18 at 06:30 Glucose (Glutose) 15 gm Q15M PRN BUCCAL DECREASED GLUCOSE; Start 12/11/18 at 06:30 Propranolol HCl (Inderal) 60 mg Q6H PO Last administered on 12/12/18at 09:14; Admin Dose 60 MG; Start 12/11/18 at 09:00 Docusate Sodium (Colace) 100 mg Q12 PO Last administered on 12/12/18at 09:14; Admin Dose 100 MG; Start 12/11/18 at 21:00 Insulin Glargine (Lantus) 10 units DAILY@0800 SC Last administered on 12/12/18at 09:15; Admin Dose 10 UNITS; Start 12/12/18 at 08:00 Methimazole (Tapazole) 30 mg AC BREAKFAST PO Last administered on 12/12/18at 09:20; Admin Dose 30 MG; Start 12/12/18 at 07:25 Miscellaneous Information (*Rx Drug Level Order Reminder*) VANCO TROUGH 12/12 @ 1,400 ONCE ONCE XX ; Start 12/12/18 at 14:00; Stop 12/12/18 at 14:01 YOLI ZAMORANO Dec 12, 2018 10:39
--- NOTE | 2018-12-12 13:16 | CONS ---
DATE OF ADMISSION: 12/10/2018 DATE OF CONSULTATION: TYPE OF CONSULTATION: Pulmonary. REASON FOR CONSULTATION: Abnormal chest x-ray, rule out TB. HISTORY OF PRESENT ILLNESS: This is a pleasant 58-year-old gentleman admitted with increasing shortn ess of breath, orthopnea, PND, who has a history of previous positive QuantiFERON Gold, who came in w ith increasing weakness, cough, but no fever, no chills. PAST MEDICAL HISTORY: 1. Graves' disease. 2. Positive QuantiFERON Gold. MEDICATIONS: Per chart. ALLERGIES: NONE. SOCIAL HISTORY: Nonsmoker, no alcohol, no history of drug use. FAMILY HISTORY: Noncontributory. REVIEW OF SYSTEMS: A 12-point review of systems was negative other than that mentioned above. PHYSICAL EXAMINATION: GENERAL: Well-nourished, well-developed gentleman, appears comfortable at rest, in no acute distress . VITAL SIGNS: Currently afebrile, temperature initially 100 now 99.1, pulse is 88, blood pressure 115 /54, O2 saturation 96% on room air. NECK: Supple. No JVD. No lymphadenopathy. CARDIAC: S1, S2. No added sounds or murmurs. CHEST: Diminished air entry bilaterally. No rales or wheezes. ABDOMEN: Soft, nontender. No guarding or rebound. EXTREMITIES: No cyanosis, clubbing or edema. NEUROLOGIC: Grossly intact. No focal deficits. DIAGNOSTIC DATA: Chest x-ray shows no infiltrates or effusions. Brain CT is unremarkable. IMPRESSION AND PLAN: 1. Likely community-acquired pneumonia. 2. History of Graves' disease. 3. 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 Dictated By: SALOME LEWIS MD SV/HELENA Conf#: [id number] DID#: [id number] CC: LYNDON LÓPEZ MD;*EndCC*
[2018-12-12] MEDS ORDERED: PROPYLTHIOURACIL 50 MG TAB PO ONE (13:30)
--- NOTE | 2018-12-12 13:37 | CONS ---
Assessment/Plan Assessment/Plan Hospital Course (Demo Recall) asked to consult. will be in shortly. ty Consultation Date/Type/Reason Admit Date/Time Dec 10, 2018 at 22:47 Initial Consult Date 12/11/18 Requesting Provider: LYNDON LÓPEZ Date/Time of Note DATE: 12/12/18 TIME: 13:36 Exam/Review of Systems Exam Vitals Vital Signs Date Temp Pulse Resp B/P (MAP) Pulse Ox O2 O2 Flow FiO2 Time Delivery Rate 12/12/18 86 12:21 12/12/18 99.1 22 115/54 96 Room Air 11:29 (74) Intake and Output 12/11/18 12/11/18 12/12/18 1515:00 23:00 07:00 IntakeIntake Total 400 ml 1020 ml 400 ml BalanceBalance 400 ml 1020 ml 400 ml Results Result Diagram: 12/12/1862212/12/18 0623 Results 24hrs Laboratory Tests Test 12/11/18 16:20 12/11/18 17:23 12/11/18 21:41 12/12/18 03:13 Thyroid <1 Antimicrosomal Antibody Anti-Thyroglobulin <1 Antibody Bedside Glucose 156 193 242 H Test 12/12/18 06:23 12/12/18 09:06 12/12/18 12:01 White Blood Count 6.8 Red Blood Count 3.45 L Hemoglobin 9.0 L Hematocrit 27.9 L Mean Corpuscular Volume 80.9 L Mean Corpuscular 26.1 L Hemoglobin Mean Corpuscular 32.3 Hemoglobin Concent Red Cell Distribution 15.4 H Width Platelet Count 156 Mean Platelet Volume 9.6 Immature Granulocytes % 0.400 Neutrophils % Segmented Neutrophils 46 % (Manual) Band Neutrophils % 1 (Manual) Lymphocytes % Lymphocytes % (Manual) 21 Reactive Lymphocytes 1 H % (Manual) Monocytes % Monocytes % (Manual) 28 H Eosinophils % Eosinophils % (Manual) 1 Basophils % Basophils % (Manual) 1 Myelocytes % (Manual) 1 H Nucleated Red Blood 0.0 Cells % Immature Granulocytes # 0.030 Neutrophils # Neutrophils # (Manual) 3.1 Band Neutrophils # 0.0 Lymphocytes (Manual) 1.4 Lymphocytes # Reactive Lymphocytes # 0.0 Monocytes # Monocytes # (Manual) 1.9 H Eosinophils # Basophils # Basophils # (Manual) 0.0 Myelocytes # 0.0 Nucleated Red Blood Cells # Platelet Estimate NORMAL Polychromasia 3+ Hypochromasia 2+ Poikilocytosis 1+ Anisocytosis 1+ Microcytosis 1+ Target Cells 1+ Sodium Level 135 Potassium Level 4.1 Chloride Level 97 Carbon Dioxide Level 31 Anion Gap 7 Blood Urea Nitrogen 8 Creatinine 0.67 Est Glomerular Filtrat > 60 Rate mL/min Glucose Level 240 #H Hemoglobin A1c 5.6 Calcium Level 9.6 Magnesium Level 1.7 Bedside Glucose 258 H 246 H Medications Medication Current Medications IV Flush (NS 3 ml) 3 ml PER PROTOCOL IV ; Start 12/10/18 at 23:30 Ondansetron HCl (Zofran Inj) 4 mg Q6H PRN IV NAUSEA/VOMITING Last administered on 12/11/18at 03:36; Admin Dose 4 MG; Start 12/10/18 at 23:30 Acetaminophen (Tylenol Tab) 650 mg Q6H PRN PO .PAIN 1-3 OR TEMP; Start 12/10/18 at 23:30 Bisacodyl (Dulcolax) 5 mg DAILY PRN PO .CONSTIPATION; Start 12/10/18 at 23:30 Vancomycin HCl (Vanco Iv Per Pharmacy) VANCOMYCIN PER PHARMACY PER PROTOCOL XX ; Start 12/10/18 at 23:30 Cefepime HCl 50 ml @ 100 mls/hr Q12 IVPB Last administered on 12/12/18at 09:20; Admin Dose 100 MLS/HR; Start 12/11/18 at 09:00 Vancomycin HCl 1.25 gm/Sodium Chloride 250 ml @ 83.333 mls/ hr Q12H IVPB Last administered on 12/12/18at 03:09; Admin Dose 83.333 MLS/HR; Start 12/11/18 at 03:00 Diagnostic Test (Pha) (Accu-Chek) 1 ea 02 XX ; Start 12/12/18 at 02:00 Insulin Aspart (Novolog Insulin Pen) NOVOLOG *MILD* ALGORITHM WITH MEALS BEDTIME SC Last administered on 12/12/18at 12:05; Admin Dose 3 UNIT; Start 12/11/18 at 07:55 Miscellaneous Information 1 ea NOTE XX ; Start 12/11/18 at 06:30 Glucose (Glutose) 15 gm Q15M PRN PO DECREASED GLUCOSE; Start 12/11/18 at 06:30 Glucose (Glutose) 22.5 gm Q15M PRN PO DECREASED GLUCOSE; Start 12/11/18 at 06:30 Dextrose (D50w Syringe) 25 ml Q15M PRN IV DECREASED GLUCOSE; Start 12/11/18 at 06:30 Dextrose (D50w Syringe) 50 ml Q15M PRN IV DECREASED GLUCOSE; Start 12/11/18 at 06:30 Glucagon (Glucagen) 1 mg Q15M PRN IM DECREASED GLUCOSE; Start 12/11/18 at 06:30 Glucose (Glutose) 15 gm Q15M PRN BUCCAL DECREASED GLUCOSE; Start 12/11/18 at 06:30 Propranolol HCl (Inderal) 60 mg Q6H PO Last administered on 12/12/18at 09:14; Admin Dose 60 MG; Start 12/11/18 at 09:00 Docusate Sodium (Colace) 100 mg Q12 PO Last administered on 12/12/18at 09:14; Admin Dose 100 MG; Start 12/11/18 at 21:00 Insulin Glargine (Lantus) 10 units DAILY@0800 SC Last administered on 12/12/18at 09:15; Admin Dose 10 UNITS; Start 12/12/18 at 08:00 Miscellaneous Information (*Rx Drug Level Order Reminder*) VANCO TROUGH 12/12 @ 1,400 ONCE ONCE XX ; Start 12/12/18 at 14:00; Stop 12/12/18 at 14:01 Methimazole (Tapazole) 40 mg AC BREAKFAST PO ; Start 12/13/18 at 07:25 ANGEL CHAVEZ MD Dec 12, 2018 13:37
--- NOTE | 2018-12-12 14:05 | CONS ---
Assessment/Plan Assessment/Plan Hospital Course (Demo Recall) 58 yo male with pmh of Graves disease, several recent admits for persistent fever and tachycardia. He has been treated for Thyroid disease. He returns with recurrent sirs. No localizing symptoms. Previous id w/us and imaging negative. R: hiv viral load and hiv ab resp virus panel procalc consider wbc scan if sxs continue cocci and crypto [id number] additional recs will be made based on results of above Consultation Date/Type/Reason Admit Date/Time Dec 10, 2018 at 22:47 Date of Consultation: Dec 12, 2018 Type of Consult iD Reason for Consultation abx recs Requesting Provider: YOLI ZAMORANO Date/Time of Note DATE: 12/12/18 TIME: 14:02 Hx of Present Illness 58 yo male with pmh of Graves disease, several recent admits for persistent fever and tachycardia. He has been treated for Thyroid disease. He returns with recurrent sirs. No localizing symptoms. Previous id w/us and imaging negative. Past Medical History Medical History: diabetes, hyperthyroid (Graves' disease with Graves' or bitopathy) Home Meds Active Scripts Methimazole* (Methimazole*) 5 Mg Tablet, 10 MG PO BID for 30 Days, TAB Prov:ASHLY MANTILLA MD 11/28/18 Metformin* (Glucophage*) 500 Mg Tab, 1000 MG PO BID WITH MEALS for 30 Days, TAB Prov:ASHLY MANTILLA MD 11/28/18 Reported Medications Glipizide* (Glipizide*) 5 Mg Tablet, 5 MG PO BID, TAB 11/23/18 Metformin* (Glucophage*) 1,000 Mg Tablet, 1000 MG PO BID, #60 TAB 11/23/18 Medications Current Medications IV Flush (NS 3 ml) 3 ml PER PROTOCOL IV ; Start 12/10/18 at 23:30 Ondansetron HCl (Zofran Inj) 4 mg Q6H PRN IV NAUSEA/VOMITING Last administered on 12/11/18at 03:36; Admin Dose 4 MG; Start 12/10/18 at 23:30 Acetaminophen (Tylenol Tab) 650 mg Q6H PRN PO .PAIN 1-3 OR TEMP; Start 12/10/18 at 23:30 Bisacodyl (Dulcolax) 5 mg DAILY PRN PO .CONSTIPATION; Start 12/10/18 at 23:30 Vancomycin HCl (Vanco Iv Per Pharmacy) VANCOMYCIN PER PHARMACY PER PROTOCOL XX ; Start 12/10/18 at 23:30 Cefepime HCl 50 ml @ 100 mls/hr Q12 IVPB Last administered on 12/12/18at 09:20; Admin Dose 100 MLS/HR; Start 12/11/18 at 09:00 Vancomycin HCl 1.25 gm/Sodium Chloride 250 ml @ 83.333 mls/ hr Q12H IVPB Last administered on 12/12/18at 03:09; Admin Dose 83.333 MLS/HR; Start 12/11/18 at 03:00 Diagnostic Test (Pha) (Accu-Chek) 1 ea 02 XX ; Start 12/12/18 at 02:00 Insulin Aspart (Novolog Insulin Pen) NOVOLOG *MILD* ALGORITHM WITH MEALS BEDTIME SC Last administered on 12/12/18at 12:05; Admin Dose 3 UNIT; Start 12/11/18 at 07:55 Miscellaneous Information 1 ea NOTE XX ; Start 12/11/18 at 06:30 Glucose (Glutose) 15 gm Q15M PRN PO DECREASED GLUCOSE; Start 12/11/18 at 06:30 Glucose (Glutose) 22.5 gm Q15M PRN PO DECREASED GLUCOSE; Start 12/11/18 at 06:30 Dextrose (D50w Syringe) 25 ml Q15M PRN IV DECREASED GLUCOSE; Start 12/11/18 at 06:30 Dextrose (D50w Syringe) 50 ml Q15M PRN IV DECREASED GLUCOSE; Start 12/11/18 at 06:30 Glucagon (Glucagen) 1 mg Q15M PRN IM DECREASED GLUCOSE; Start 12/11/18 at 06:30 Glucose (Glutose) 15 gm Q15M PRN BUCCAL DECREASED GLUCOSE; Start 12/11/18 at 06:30 Propranolol HCl (Inderal) 60 mg Q6H PO Last administered on 12/12/18at 09:14; Admin Dose 60 MG; Start 12/11/18 at 09:00 Docusate Sodium (Colace) 100 mg Q12 PO Last administered on 12/12/18at 09:14; Admin Dose 100 MG; Start 12/11/18 at 21:00 Insulin Glargine (Lantus) 10 units DAILY@0800 SC Last administered on 12/12/18at 09:15; Admin Dose 10 UNITS; Start 12/12/18 at 08:00 Methimazole (Tapazole) 40 mg AC BREAKFAST PO ; Start 12/13/18 at 07:25 Allergies: Coded Allergies: No Known Allergy (Unverified , 11/23/18) Past Surgical History Past Surgical Hx: noncontributory Social History Alcohol Use: none Smoking Status: Never smoker Drug Use: none Exam/Review of Systems Exam Vitals Vital Signs Date Temp Pulse Resp B/P (MAP) Pulse Ox O2 O2 Flow FiO2 Time Delivery Rate 12/12/18 86 12:21 12/12/18 99.1 22 115/54 96 Room Air 11:29 (74) Intake and Output 12/11/18 12/11/18 12/12/18 1515:00 23:00 07:00 IntakeIntake Total 400 ml 1020 ml 400 ml BalanceBalance 400 ml 1020 ml 400 ml Results Result Diagram: 12/12/18 0623 12/12/18 0623 Results 24hrs Laboratory Tests Test 12/11/18 16:20 12/11/18 17:23 12/11/18 21:41 12/12/18 03:13 Thyroid <1 Antimicrosomal Antibody Anti-Thyroglobulin <1 Antibody Bedside Glucose 156 193 242 H Test 12/12/18 06:23 12/12/18 09:06 12/12/18 12:01 White Blood Count 6.8 Red Blood Count 3.45 L Hemoglobin 9.0 L Hematocrit 27.9 L Mean Corpuscular Volume 80.9 L Mean Corpuscular 26.1 L Hemoglobin Mean Corpuscular 32.3 Hemoglobin Concent Red Cell Distribution 15.4 H Width Platelet Count 156 Mean Platelet Volume 9.6 Immature Granulocytes % 0.400 Neutrophils % Segmented Neutrophils 46 % (Manual) Band Neutrophils % 1 (Manual) Lymphocytes % Lymphocytes % (Manual) 21 Reactive Lymphocytes 1 H % (Manual) Monocytes % Monocytes % (Manual) 28 H Eosinophils % Eosinophils % (Manual) 1 Basophils % Basophils % (Manual) 1 Myelocytes % (Manual) 1 H Nucleated Red Blood 0.0 Cells % Immature Granulocytes # 0.030 Neutrophils # Neutrophils # (Manual) 3.1 Band Neutrophils # 0.0 Lymphocytes (Manual) 1.4 Lymphocytes # Reactive Lymphocytes # 0.0 Monocytes # Monocytes # (Manual) 1.9 H Eosinophils # Basophils # Basophils # (Manual) 0.0 Myelocytes # 0.0 Nucleated Red Blood Cells # Platelet Estimate NORMAL Polychromasia 3+ Hypochromasia 2+ Poikilocytosis 1+ Anisocytosis 1+ Microcytosis 1+ Target Cells 1+ Sodium Level 135 Potassium Level 4.1 Chloride Level 97 Carbon Dioxide Level 31 Anion Gap 7 Blood Urea Nitrogen 8 Creatinine 0.67 Est Glomerular Filtrat > 60 Rate mL/min Glucose Level 240 #H Hemoglobin A1c 5.6 Calcium Level 9.6 Magnesium Level 1.7 Bedside Glucose 258 H 246 H Medications Medication Current Medications IV Flush (NS 3 ml) 3 ml PER PROTOCOL IV ; Start 12/10/18 at 23:30 Ondansetron HCl (Zofran Inj) 4 mg Q6H PRN IV NAUSEA/VOMITING Last administered on 12/11/18at 03:36; Admin Dose 4 MG; Start 12/10/18 at 23:30 Acetaminophen (Tylenol Tab) 650 mg Q6H PRN PO .PAIN 1-3 OR TEMP; Start 12/10/18 at 23:30 Bisacodyl (Dulcolax) 5 mg DAILY PRN PO .CONSTIPATION; Start 12/10/18 at 23:30 Vancomycin HCl (Vanco Iv Per Pharmacy) VANCOMYCIN PER PHARMACY PER PROTOCOL XX ; Start 12/10/18 at 23:30 Cefepime HCl 50 ml @ 100 mls/hr Q12 IVPB Last administered on 12/12/18at 09:20; Admin Dose 100 MLS/HR; Start 12/11/18 at 09:00 Vancomycin HCl 1.25 gm/Sodium Chloride 250 ml @ 83.333 mls/ hr Q12H IVPB Last administered on 12/12/18at 03:09; Admin Dose 83.333 MLS/HR; Start 12/11/18 at 03:00 Diagnostic Test (Pha) (Accu-Chek) 1 ea 02 XX ; Start 12/12/18 at 02:00 Insulin Aspart (Novolog Insulin Pen) NOVOLOG *MILD* ALGORITHM WITH MEALS BEDTIME SC Last administered on 12/12/18at 12:05; Admin Dose 3 UNIT; Start 12/11/18 at 07:55 Miscellaneous Information 1 ea NOTE XX ; Start 12/11/18 at 06:30 Glucose (Glutose) 15 gm Q15M PRN PO DECREASED GLUCOSE; Start 12/11/18 at 06:30 Glucose (Glutose) 22.5 gm Q15M PRN PO DECREASED GLUCOSE; Start 12/11/18 at 06:30 Dextrose (D50w Syringe) 25 ml Q15M PRN IV DECREASED GLUCOSE; Start 12/11/18 at 06:30 Dextrose (D50w Syringe) 50 ml Q15M PRN IV DECREASED GLUCOSE; Start 12/11/18 at 06:30 Glucagon (Glucagen) 1 mg Q15M PRN IM DECREASED GLUCOSE; Start 12/11/18 at 06:30 Glucose (Glutose) 15 gm Q15M PRN BUCCAL DECREASED GLUCOSE; Start 12/11/18 at 06:30 Propranolol HCl (Inderal) 60 mg Q6H PO Last administered on 12/12/18at 09:14; Admin Dose 60 MG; Start 12/11/18 at 09:00 Docusate Sodium (Colace) 100 mg Q12 PO Last administered on 12/12/18at 09:14; Admin Dose 100 MG; Start 12/11/18 at 21:00 Insulin Glargine (Lantus) 10 units DAILY@0800 SC Last administered on 12/12/18at 09:15; Admin Dose 10 UNITS; Start 12/12/18 at 08:00 Methimazole (Tapazole) 40 mg AC BREAKFAST PO ; Start 12/13/18 at 07:25 ANGEL CHAVEZ MD Dec 12, 2018 14:05
[2018-12-12] MEDS: BISACODYL (EC) 5 MG TAB PO PRN (21:37)
[2018-12-13] VITALS (12 sets, daily range): BP systolic 99–148; BP diastolic 58–79; PULSE 56–89; RESP 17–18
[2018-12-13] MEDS: ACCU-CHEK XX SCH ×3 (02:00→21:17)
[2018-12-13] MEDS: VANCOMYCIN HCL 1.25 GM in SOD CHLORIDE 0.9% 250 ML IVPB SCH ×2 (03:17→14:44)
[2018-12-13] MEDS: PROPRANOLOL 20 MG TAB PO SCH ×4 (03:18→20:54)
[2018-12-13] MEDS: BISACODYL (EC) 5 MG TAB PO PRN (08:01)
[2018-12-13] MEDS: CEFEPIME 2GM/50 ML (PMX) 50 ML IVPB SCH ×2 (08:01→20:53)
[2018-12-13] MEDS: DOCUSATE SODIUM 100 MG CAP PO SCH ×2 (08:01→20:54)
[2018-12-13] MEDS: INSULIN ASPART [NOVOLOG] 3 ML PEN SC SCH ×7 (08:14→21:16)
[2018-12-13] MEDS: METHIMAZOLE 5 MG TAB PO SCH (08:55)
[2018-12-13] MEDS: INSULIN GLARGINE [LANTus] (100 UNITS/ML) SYG SC SCH (10:09)
[2018-12-13] MEDS: POLYETHYLENE GLYCOL 17 GM PACKET PO SCH (10:35)
[2018-12-13] MEDS ORDERED: MAGNESIUM CITRATE 300 ML BTL PO ONE (11:30)
[2018-12-13] MEDS: metFORMIN 500 MG TAB PO SCH ×2 (14:45→17:48)
--- NOTE | 2018-12-13 15:14 | CONS ---
Assessment/Plan Assessment/Plan Hospital Course (Demo Recall) - Recurrent SIRS (fever and tachycardia); previous ID w/u and imaging were negative - H. 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 pylori with amoxicillin, clarithromycin and PPI x 14 days (12/14/2018-) - on vancomycin and cefepime (12/11/2018-) - pending: resp virus panel, procalc, cocci, crypto, 1,3 [id number] - consider wbc scan if sxs continue - additional recs will be made based on results of above Management d/w patient ( is at bedside), RN, and with Dr. Tomas Consultation Date/Type/Reason Admit Date/Time Dec 10, 2018 at 22:47 Initial Consult Date 12/12/18 Type of Consult Infectious Disease Requesting Provider: YOLI ZAMORANO Date/Time of Note DATE: 12/13/18 TIME: 15:11 24 HR Interval Summary Free Text/Dictation Denies fever, chills, SOB, n/v/d, dysuria, pain. "Everything is okay". Exam/Review of Systems Exam Vitals Vital Signs Date Temp Pulse Resp B/P (MAP) Pulse Ox O2 O2 Flow FiO2 Time Delivery Rate 12/13/18 98.3 67 18 136/65 99 15:07 (88) 12/12/18 Room Air 20:06 Intake and Output 12/12/18 12/12/18 12/13/18 1515:00 23:00 07:00 IntakeIntake Total 50 ml 1230 ml 250 ml BalanceBalance 50 ml 1230 ml 250 ml Constitutional: alert, oriented, well developed Psych: no complaints Head: normocephalic, atraumatic Eyes: nl conjunctiva, nl lids, nl sclera ENMT: nl external ears & nose, nl nasal mucosa & septum, mucosa pink and moist Neck: supple Respiratory: clear to auscultation, normal air movement, other (stable on room air) Cardiovascular: regular rate and rhythm, nl pulses Gastrointestinal: soft, non-tender Genitourinary - Male: other Musculoskeletal: nl extremities to inspection Extremities: normal pulses Neurological: nl mental status, nl speech, nl strength Skin: nl turgor; No rash or lesions Results Result Diagram: 12/13/18 0612/13/18 0606 Results 24hrs Laboratory Tests Test 12/12/18 16:48 12/12/18 21:40 12/13/18 03:15 12/13/18 06:06 Bedside Glucose 256 H 220 200 White Blood Count 6.5 Red Blood Count 3.58 L Hemoglobin 9.3 L Hematocrit 29.3 L Mean Corpuscular Volume 81.8 L Mean Corpuscular 26.0 L Hemoglobin Mean Corpuscular 31.7 L Hemoglobin Concent Red Cell Distribution 15.4 H Width Platelet Count 152 Mean Platelet Volume 10.1 Immature Granulocytes % 0.600 H Neutrophils % Segmented Neutrophils 63 % (Manual) Lymphocytes % Lymphocytes % (Manual) 25 Monocytes % Monocytes % (Manual) 11 Eosinophils % Eosinophils % (Manual) 1 Basophils % Nucleated Red Blood 0.0 Cells % Immature Granulocytes # 0.040 H Neutrophils # Lymphocytes (Manual) 1.6 Lymphocytes # Monocytes # Monocytes # (Manual) 0.7 Eosinophils # Basophils # Nucleated Red Blood Cells # Platelet Estimate NORMAL Giant Platelets 1 H Polychromasia 3+ Hypochromasia 2+ Poikilocytosis 1+ Anisocytosis 1+ Microcytosis 1+ Sodium Level 135 Potassium Level 3.9 Chloride Level 95 L Carbon Dioxide Level 33 H Anion Gap 7 Blood Urea Nitrogen 8 Creatinine 0.68 Est Glomerular Filtrat > 60 Rate mL/min Glucose Level 261 H Calcium Level 10.0 HIV (1&2) Antibody NEGATIVE Test 12/13/18 07:52 12/13/18 09:37 12/13/18 12:39 Bedside Glucose 229 H 212 229 H Imaging Imaging CXR 12/13/2018: No visualized active disease. Thyroid US 12/11/2018: Enlarged thyroid with no discrete nodule. CT Brain 12/10/2018: No significant change. 1. No acute intracranial hemorrhage or extra-axial fluid collection. 2. Mild central greater than peripheral cerebral volume loss. 3. Partially empty sella turcica. Medications Medication Current Medications IV Flush (NS 3 ml) 3 ml PER PROTOCOL IV ; Start 12/10/18 at 23:30 Ondansetron HCl (Zofran Inj) 4 mg Q6H PRN IV NAUSEA/VOMITING Last administered on 12/11/18 03:36; Admin Dose 4 MG; Start 12/10/18 at 23:30 Acetaminophen (Tylenol Tab) 650 mg Q6H PRN PO .PAIN 1-3 OR TEMP; Start 12/10/18 at 23:30 Bisacodyl (Dulcolax) 5 mg DAILY PRN PO .CONSTIPATION Last administered on 12/13/18 08:01; Admin Dose 5 MG; Start 12/10/18 at 23:30 Vancomycin HCl (Vanco Iv Per Pharmacy) VANCOMYCIN PER PHARMACY PER PROTOCOL XX ; Start 12/10/18 at 23:30 Cefepime HCl 50 ml @ 100 mls/hr Q12 IVPB Last administered on 12/13/18 08:01; Admin Dose 100 MLS/HR; Start 12/11/18 at 09:00 Vancomycin HCl 1.25 gm/Sodium Chloride 250 ml @ 83.333 mls/ hr Q12H IVPB Last administered on 12/13/18 14:44; Admin Dose 83.333 MLS/HR; Start 12/11/18 at 03:00 Diagnostic Test (Pha) (Accu-Chek) 1 ea 02 XX ; Start 12/12/18 at 02:00 Insulin Aspart (Novolog Insulin Pen) NOVOLOG *MILD* ALGORITHM WITH MEALS BEDTIME SC Last administered on 12/13/18at 12:46; Admin Dose 3 UNIT; Start 12/11/18 at 07:55 Miscellaneous Information 1 ea NOTE XX ; Start 12/11/18 at 06:30 Glucose (Glutose) 15 gm Q15M PRN PO DECREASED GLUCOSE; Start 12/11/18 at 06:30 Glucose (Glutose) 22.5 gm Q15M PRN PO DECREASED GLUCOSE; Start 12/11/18 at 06:30 Dextrose (D50w Syringe) 25 ml Q15M PRN IV DECREASED GLUCOSE; Start 12/11/18 at 06:30 Dextrose (D50w Syringe) 50 ml Q15M PRN IV DECREASED GLUCOSE; Start 12/11/18 at 06:30 Glucagon (Glucagen) 1 mg Q15M PRN IM DECREASED GLUCOSE; Start 12/11/18 at 06:30 Glucose (Glutose) 15 gm Q15M PRN BUCCAL DECREASED GLUCOSE; Start 12/11/18 at 06:30 Propranolol HCl (Inderal) 60 mg Q6H PO Last administered on 12/13/18 14:49; Admin Dose 60 MG; Start 12/11/18 at 09:00 Docusate Sodium (Colace) 100 mg Q12 PO Last administered on 12/13/18 08:01; Admin Dose 100 MG; Start 12/11/18 at 21:00 Methimazole (Tapazole) 40 mg AC BREAKFAST PO Last administered on 12/13/18 08:55; Admin Dose 40 MG; Start 12/13/18 at 07:25 Insulin Glargine (Lantus) 13 units DAILY@0800 SC Last administered on 12/13/18 10:09; Admin Dose 13 UNITS; Start 12/13/18 at 08:00 Insulin Aspart (Novolog Insulin Pen) 4 unit WITH MEALS SC Last administered on 12/13/18 12:46; Admin Dose 4 UNIT; Start 12/13/18 at 07:55 Polyethylene Glycol (Miralax) 17 gm DAILY PO Last administered on 12/13/18 10:35; Admin Dose 17 GM; Start 12/13/18 at 10:30 Metformin HCl (Glucophage) 500 mg BID WITH MEALS PO Last administered on 12/13/18 14:45; Admin Dose 500 MG; Start 12/13/18 at 13:00 Diagnostic Test (Pha) (Accu-Chek) 1 ea AC MEALS AND BEDTIME XX ; Start 12/13/18 at 17:25 NESTOR HUGHES NP Dec 13, 2018 15:13
--- NOTE | 2018-12-13 15:33 | CONS ---
Consult Date/Type/Reason Admit Date/Time Dec 10, 2018 at 22:47 Initial Consult Date 12/12/18 Type of Consult Pulmonary Requesting Provider: YOLI ZAMORANO Date/Time of Note DATE: 12/13/18 TIME: 15:32 Subjective Patient better today. Less shortness of breath Objective Vital Signs Date Temp Pulse Resp B/P (MAP) Pulse Ox O2 O2 Flow FiO2 Time Delivery Rate 12/13/18 98.3 67 18 136/65 99 15:07 (88) 12/12/18 Room Air 20:06 Intake and Output 12/12/18 12/12/18 12/13/18 1414:59 22:59 06:59 IntakeIntake Total 50 ml 1230 ml 250 ml BalanceBalance 50 ml 1230 ml 250 ml Exam REVIEW OF SYSTEMS: A 12-point review of systems was negative other than that mentioned above. PHYSICAL EXAMINATION: GENERAL: Well-nourished, well-developed gentleman, appears comfortable at rest, in no acute distress. VITAL SIGNS: NECK: Supple. No JVD. No lymphadenopathy. CARDIAC: S1, S2. No added sounds or murmurs. CHEST: Diminished air entry bilaterally. No rales or wheezes. ABDOMEN: Soft, nontender. No guarding or rebound. EXTREMITIES: No cyanosis, clubbing or edema. NEUROLOGIC: Grossly intact. No focal deficits. Results/Medications Result Diagram: 12/13/1860512/13/18605 Results 24 hrs Laboratory Tests Test 12/12/18 16:48 12/12/18 21:40 12/13/18 03:15 12/13/18 06:06 Bedside Glucose 256 H 220 200 White Blood Count 6.5 Red Blood Count 3.58 L Hemoglobin 9.3 L Hematocrit 29.3 L Mean Corpuscular Volume 81.8 L Mean Corpuscular 26.0 L Hemoglobin Mean Corpuscular 31.7 L Hemoglobin Concent Red Cell Distribution 15.4 H Width Platelet Count 152 Mean Platelet Volume 10.1 Immature Granulocytes % 0.600 H Neutrophils % Segmented Neutrophils 63 % (Manual) Lymphocytes % Lymphocytes % (Manual) 25 Monocytes % Monocytes % (Manual) 11 Eosinophils % Eosinophils % (Manual) 1 Basophils % Nucleated Red Blood 0.0 Cells % Immature Granulocytes # 0.040 H Neutrophils # Lymphocytes (Manual) 1.6 Lymphocytes # Monocytes # Monocytes # (Manual) 0.7 Eosinophils # Basophils # Nucleated Red Blood Cells # Platelet Estimate NORMAL Giant Platelets 1 H Polychromasia 3+ Hypochromasia 2+ Poikilocytosis 1+ Anisocytosis 1+ Microcytosis 1+ Sodium Level 135 Potassium Level 3.9 Chloride Level 95 L Carbon Dioxide Level 33 H Anion Gap 7 Blood Urea Nitrogen 8 Creatinine 0.68 Est Glomerular Filtrat > 60 Rate mL/min Glucose Level 261 H Calcium Level 10.0 HIV (1&2) Antibody NEGATIVE Test 12/13/18 07:52 12/13/18 09:37 12/13/18 12:39 Bedside Glucose 229 H 212 229 H Medications Current Medications IV Flush (NS 3 ml) 3 ml PER PROTOCOL IV ; Start 12/10/18 at 23:30 Ondansetron HCl (Zofran Inj) 4 mg Q6H PRN IV NAUSEA/VOMITING Last administered on 12/11/18at 03:36; Admin Dose 4 MG; Start 12/10/18 at 23:30 Acetaminophen (Tylenol Tab) 650 mg Q6H PRN PO .PAIN 1-3 OR TEMP; Start 12/10/18 at 23:30 Bisacodyl (Dulcolax) 5 mg DAILY PRN PO .CONSTIPATION Last administered on 12/13/18 08:01; Admin Dose 5 MG; Start 12/10/18 at 23:30 Vancomycin HCl (Vanco Iv Per Pharmacy) VANCOMYCIN PER PHARMACY PER PROTOCOL XX ; Start 12/10/18 at 23:30 Cefepime HCl 50 ml @ 100 mls/hr Q12 IVPB Last administered on 12/13/18 08:01; Admin Dose 100 MLS/HR; Start 12/11/18 at 09:00 Vancomycin HCl 1.25 gm/Sodium Chloride 250 ml @ 83.333 mls/ hr Q12H IVPB Last administered on 12/13/18at 14:44; Admin Dose 83.333 MLS/HR; Start 12/11/18 at 03:00 Diagnostic Test (Pha) (Accu-Chek) 1 ea 02 XX ; Start 12/12/18 at 02:00 Insulin Aspart (Novolog Insulin Pen) NOVOLOG *MILD* ALGORITHM WITH MEALS BEDTIME SC Last administered on 12/13/18at 12:46; Admin Dose 3 UNIT; Start 12/11/18 at 07:55 Miscellaneous Information 1 ea NOTE XX ; Start 12/11/18 at 06:30 Glucose (Glutose) 15 gm Q15M PRN PO DECREASED GLUCOSE; Start 12/11/18 at 06:30 Glucose (Glutose) 22.5 gm Q15M PRN PO DECREASED GLUCOSE; Start 12/11/18 at 06:30 Dextrose (D50w Syringe) 25 ml Q15M PRN IV DECREASED GLUCOSE; Start 12/11/18 at 06:30 Dextrose (D50w Syringe) 50 ml Q15M PRN IV DECREASED GLUCOSE; Start 12/11/18 at 06:30 Glucagon (Glucagen) 1 mg Q15M PRN IM DECREASED GLUCOSE; Start 12/11/18 at 06:30 Glucose (Glutose) 15 gm Q15M PRN BUCCAL DECREASED GLUCOSE; Start 12/11/18 at 06:30 Propranolol HCl (Inderal) 60 mg Q6H PO Last administered on 12/13/18at 14:49; Admin Dose 60 MG; Start 12/11/18 at 09:00 Docusate Sodium (Colace) 100 mg Q12 PO Last administered on 12/13/18 08:01; Admin Dose 100 MG; Start 12/11/18 at 21:00 Methimazole (Tapazole) 40 mg AC BREAKFAST PO Last administered on 12/13/18at 08:55; Admin Dose 40 MG; Start 12/13/18 at 07:25 Insulin Glargine (Lantus) 13 units DAILY@0800 SC Last administered on 12/13/18at 10:09; Admin Dose 13 UNITS; Start 12/13/18 at 08:00 Insulin Aspart (Novolog Insulin Pen) 4 unit WITH MEALS SC Last administered on 12/13/18 12:46; Admin Dose 4 UNIT; Start 12/13/18 at 07:55 Polyethylene Glycol (Miralax) 17 gm DAILY PO Last administered on 12/13/18at 10:35; Admin Dose 17 GM; Start 12/13/18 at 10:30 Metformin HCl (Glucophage) 500 mg BID WITH MEALS PO Last administered on 12/13/18at 14:45; Admin Dose 500 MG; Start 12/13/18 at 13:00 Diagnostic Test (Pha) (Accu-Chek) 1 ea AC MEALS AND BEDTIME XX ; Start 12/13/18 at 17:25 Assessment/Plan Hospital Course (Demo Recall) IMPRESSION AND PLAN: 1. 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 History of Graves' disease. Recommendations 1. DC planning 2. Steroid and antibiotic taper 3. Follow-up with primary care physician SALOME LEWIS [facility] Dec 13, 2018 15:33
[2018-12-14] VITALS (11 sets, daily range): BP systolic 101–145; BP diastolic 53–72; PULSE 83–118; RESP 18–20
[2018-12-14] MEDS: VANCOMYCIN HCL 1.25 GM in SOD CHLORIDE 0.9% 250 ML IVPB SCH (02:47)
[2018-12-14] MEDS: ACCU-CHEK XX SCH ×5 (02:52→20:44)
[2018-12-14] MEDS: PROPRANOLOL 20 MG TAB PO SCH ×4 (02:53→20:44)
[2018-12-14] MEDS: METHIMAZOLE 5 MG TAB PO SCH (06:48)
[2018-12-14] MEDS: POLYETHYLENE GLYCOL 17 GM PACKET PO SCH (09:00)
[2018-12-14] MEDS: DOCUSATE SODIUM 100 MG CAP PO SCH ×2 (09:00→20:43)
[2018-12-14] MEDS: metFORMIN 500 MG TAB PO SCH ×2 (09:39→17:46)
[2018-12-14] MEDS: CEFEPIME 2GM/50 ML (PMX) 50 ML IVPB SCH (09:40)
[2018-12-14] MEDS: INSULIN GLARGINE [LANTus] (100 UNITS/ML) SYG SC SCH (09:59)
[2018-12-14] MEDS: INSULIN ASPART [NOVOLOG] 3 ML PEN SC SCH ×6 (10:00→20:44)
[2018-12-14] MEDS: CLARITHROMYCIN 500 MG TAB PO SCH ×2 (12:47→20:44)
[2018-12-14] MEDS: AMOXICILLIN 500 MG CAP PO SCH ×2 (12:48→20:44)
--- NOTE | 2018-12-14 13:07 | CONS ---
Consult Date/Type/Reason Admit Date/Time Dec 10, 2018 at 22:47 Initial Consult Date 12/12/18 Type of Consultation: Pulm Requesting Provider: YOLI ZAMORANO Date/Time of Note DATE: 12/14/18 TIME: 13:05 Subjective Low grade fevers noted. No events overnight. Objective Vitals Vital Signs Date Temp Pulse Resp B/P (MAP) Pulse Ox O2 O2 Flow FiO2 Time Delivery Rate 12/14/18 86 12:14 12/14/18 100.3 18 110/53 98 11:22 (72) 12/12/18 Room Air 20:06 Intake and Output 12/13/18 12/13/18 12/14/18 1515:00 23:00 07:00 IntakeIntake Total 50 ml 950 ml 1250 ml BalanceBalance 50 ml 950 ml 1250 ml Exam HEENT: Neck supple; no JVD; no LAD CVS: RRR, S1 and S2 CHEST: Clear ABD: Soft, NT, + BS EXT: No c/c/e Results/Medications Result Diagram: 12/14/18 0736 12/14/18 0736 Results 24 hrs Laboratory Tests Test 12/13/18 17:35 12/13/18 21:05 12/14/18 02:51 12/14/18 07:36 Bedside Glucose 208 193 202 White Blood Count 7.9 # Red Blood Count 3.85 L Hemoglobin 10.0 L Hematocrit 31.9 L Mean Corpuscular Volume 82.9 Mean Corpuscular 26.0 L Hemoglobin Mean Corpuscular 31.3 L Hemoglobin Concent Red Cell Distribution 15.6 H Width Platelet Count 159 Mean Platelet Volume 9.7 Immature Granulocytes % 0.500 H Neutrophils % Lymphocytes % Monocytes % Eosinophils % Basophils % Nucleated Red Blood 0.0 Cells % Immature Granulocytes # 0.040 H Neutrophils # Lymphocytes # Monocytes # Eosinophils # Basophils # Nucleated Red Blood Cells # Sodium Level 137 Potassium Level 4.2 Chloride Level 95 L Carbon Dioxide Level 33 H Anion Gap 9 Blood Urea Nitrogen 12 Creatinine 0.77 Est Glomerular Filtrat > 60 Rate mL/min Glucose Level 177 Calcium Level 10.1 Test 12/14/18 09:44 12/14/18 12:47 Bedside Glucose 210 160 Home Meds Active Scripts Methimazole* (Methimazole*) 5 Mg Tablet, 10 MG PO BID for 30 Days, TAB Prov:ASHLY MANTILLA MD 11/28/18 Metformin* (Glucophage*) 500 Mg Tab, 1000 MG PO BID WITH MEALS for 30 Days, TAB Prov:ASHLY MANTILLA MD 11/28/18 Reported Medications Glipizide* (Glipizide*) 5 Mg Tablet, 5 MG PO BID, TAB 11/23/18 Metformin* (Glucophage*) 1,000 Mg Tablet, 1000 MG PO BID, #60 TAB 11/23/18 Medications Current Medications IV Flush (NS 3 ml) 3 ml PER PROTOCOL IV ; Start 12/10/18 at 23:30 Ondansetron HCl (Zofran Inj) 4 mg Q6H PRN IV NAUSEA/VOMITING Last administered on 12/11/18at 03:36; Admin Dose 4 MG; Start 12/10/18 at 23:30 Acetaminophen (Tylenol Tab) 650 mg Q6H PRN PO .PAIN 1-3 OR TEMP; Start 12/10/18 at 23:30 Bisacodyl (Dulcolax) 5 mg DAILY PRN PO .CONSTIPATION Last administered on 12/13/18at 08:01; Admin Dose 5 MG; Start 12/10/18 at 23:30 Vancomycin HCl (Vanco Iv Per Pharmacy) VANCOMYCIN PER PHARMACY PER PROTOCOL XX ; Start 12/10/18 at 23:30 Cefepime HCl 50 ml @ 100 mls/hr Q12 IVPB Last administered on 12/14/18at 09:40; Admin Dose 100 MLS/HR; Start 12/11/18 at 09:00 Vancomycin HCl 1.25 gm/Sodium Chloride 250 ml @ 83.333 mls/ hr Q12H IVPB Last administered on 12/14/18at 02:47; Admin Dose 83.333 MLS/HR; Start 12/11/18 at 03:00 Diagnostic Test (Pha) (Accu-Chek) 1 ea 02 XX Last administered on 12/14/18 02:52; Admin Dose 1 EA; Start 12/12/18 at 02:00 Insulin Aspart (Novolog Insulin Pen) NOVOLOG *MILD* ALGORITHM WITH MEALS BEDTIME SC Last administered on 12/14/18at 13:01; Admin Dose 1 UNIT; Start 12/11/18 at 07:55 Miscellaneous Information 1 ea NOTE XX ; Start 12/11/18 at 06:30 Glucose (Glutose) 15 gm Q15M PRN PO DECREASED GLUCOSE; Start 12/11/18 at 06:30 Glucose (Glutose) 22.5 gm Q15M PRN PO DECREASED GLUCOSE; Start 12/11/18 at 06:30 Dextrose (D50w Syringe) 25 ml Q15M PRN IV DECREASED GLUCOSE; Start 12/11/18 at 06:30 Dextrose (D50w Syringe) 50 ml Q15M PRN IV DECREASED GLUCOSE; Start 12/11/18 at 06:30 Glucagon (Glucagen) 1 mg Q15M PRN IM DECREASED GLUCOSE; Start 12/11/18 at 06:30 Glucose (Glutose) 15 gm Q15M PRN BUCCAL DECREASED GLUCOSE; Start 12/11/18 at 06:30 Propranolol HCl (Inderal) 60 mg Q6H PO Last administered on 12/14/18 09:39; Admin Dose 60 MG; Start 12/11/18 at 09:00 Docusate Sodium (Colace) 100 mg Q12 PO Last administered on 12/13/18 08:01; Admin Dose 100 MG; Start 12/11/18 at 21:00 Methimazole (Tapazole) 40 mg AC BREAKFAST PO Last administered on 12/14/18 06:48; Admin Dose 40 MG; Start 12/13/18 at 07:25 Insulin Glargine (Lantus) 13 units DAILY@0800 SC Last administered on 12/14/18 09:59; Admin Dose 13 UNITS; Start 12/13/18 at 08:00 Polyethylene Glycol (Miralax) 17 gm DAILY PO Last administered on 12/13/18 10:35; Admin Dose 17 GM; Start 12/13/18 at 10:30 Metformin HCl (Glucophage) 500 mg BID WITH MEALS PO Last administered on 12/14/18 09:39; Admin Dose 500 MG; Start 12/13/18 at 13:00 Diagnostic Test (Pha) (Accu-Chek) 1 ea AC MEALS AND BEDTIME XX Last adminis tered on 12/14/18 11:20; Admin Dose 1 EA; Start 12/13/18 at 17:25 Amoxicillin (Amoxicillin) 1,000 mg BID PO Last administered on 12/14/18 12:48; Admin Dose 1,000 MG; Start 12/14/18 at 09:30; Stop 12/28/18 at 09:29 Clarithromycin (Biaxin) 500 mg BID PO Last administered on 12/14/18at 12:47; Admin Dose 500 MG; Start 12/14/18 at 09:30; Stop 12/28/18 at 09:29 Pantoprazole (Protonix Tab) 40 mg BID@06,18 PO ; Start 12/14/18 at 18:00; Stop 12/28/18 at 17:59 Insulin Aspart (Novolog Insulin Pen) 6 unit WITH MEALS SC Last administered on 12/14/18at 13:01; Admin Dose 6 UNIT; Start 12/14/18 at 11:50 Assessment/Plan Assessment/Plan (Daily) IMP: 1. Febrile illness 2. 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 RECS: 1. F/U sputum AFB x 3 2. De-escalate abx TRACY MCKENZIE MD Dec 14, 2018 13:07
--- NOTE | 2018-12-14 13:12 | CONS ---
Assessment/Plan Assessment/Plan Hospital Course (Demo Recall) Hyperthyroidism -repeat TFT in AM -continue methimazole 40mg po daily -will adjust dose base on repeat TFT DM type 2 -hyperglycemia noted -will increase novolog to 6 units TIDAC -continue lantus 13 units daily in AM -continue mild dose novolog correction scale AC and HS -continue metformin 500mg po BID -check FS AC and HS Consultation Date/Type/Reason Admit Date/Time Dec 10, 2018 at 22:47 Initial Consult Date 12/12/18 Requesting Provider: YOLI ZAMORANO Date/Time of Note DATE: 12/14/18 TIME: 13:03 24 HR Interval Summary Free Text/Dictation Patient seen and examined at bedside. Fever noted, still on airborne precaution. He denied palpitation, nausea, vomiting, diarrhea or abdominal pain. Exam/Review of Systems Exam Vitals Vital Signs Date Temp Pulse Resp B/P (MAP) Pulse Ox O2 O2 Flow FiO2 Time Delivery Rate 12/14/18 86 12:14 12/14/18 100.3 18 110/53 98 11:22 (72) 12/12/18 Room Air 20:06 Intake and Output 12/13/18 12/13/18 12/14/18 1515:00 23:00 07:00 IntakeIntake Total 50 ml 950 ml 1250 ml BalanceBalance 50 ml 950 ml 1250 ml Exam General: Comfortable in appearance, not in acute distress. Skin appropriate for ethnicity Eye: Extraocular movements are intact, Normal conjunctiva. Mild exothalmos, no lid lag HENT: Normocephalic, atraumatic. Respiratory: Respirations are non-labored, Breath sounds are equal, Symmetrical chest wall expansion. Cardiovascular: S1, S2. No murmur. No LE edema Gastrointestinal: Soft, Non-tender, Non-distended, Normal bowel sounds. Integumentary: Warm to touch. Neurologic: Alert, Oriented. No hand tremor Cognition and Speech: Speech clear and coherent, Functional cognition intact. Psychiatric: Cooperative, Appropriate mood & affect. Results Result Diagram: 12/14/18 0736 12/14/18 0736 Results 24hrs Laboratory Tests Test 12/13/18 17:35 12/13/18 21:05 12/14/18 02:51 12/14/18 07:36 Bedside Glucose 208 193 202 White Blood Count 7.9 # Red Blood Count 3.85 L Hemoglobin 10.0 L Hematocrit 31.9 L Mean Corpuscular Volume 82.9 Mean Corpuscular 26.0 L Hemoglobin Mean Corpuscular 31.3 L Hemoglobin Concent Red Cell Distribution 15.6 H Width Platelet Count 159 Mean Platelet Volume 9.7 Immature Granulocytes % 0.500 H Neutrophils % Lymphocytes % Monocytes % Eosinophils % Basophils % Nucleated Red Blood 0.0 Cells % Immature Granulocytes # 0.040 H Neutrophils # Lymphocytes # Monocytes # Eosinophils # Basophils # Nucleated Red Blood Cells # Sodium Level 137 Potassium Level 4.2 Chloride Level 95 L Carbon Dioxide Level 33 H Anion Gap 9 Blood Urea Nitrogen 12 Creatinine 0.77 Est Glomerular Filtrat > 60 Rate mL/min Glucose Level 177 Calcium Level 10.1 Test 12/14/18 09:44 12/14/18 12:47 Bedside Glucose 210 160 Medications Medication Current Medications IV Flush (NS 3 ml) 3 ml PER PROTOCOL IV ; Start 12/10/18 at 23:30 Ondansetron HCl (Zofran Inj) 4 mg Q6H PRN IV NAUSEA/VOMITING Last administered on 12/11/18at 03:36; Admin Dose 4 MG; Start 12/10/18 at 23:30 Acetaminophen (Tylenol Tab) 650 mg Q6H PRN PO .PAIN 1-3 OR TEMP; Start 12/10/18 at 23:30 Bisacodyl (Dulcolax) 5 mg DAILY PRN PO .CONSTIPATION Last administered on 12/13/18 08:01; Admin Dose 5 MG; Start 12/10/18 at 23:30 Vancomycin HCl (Vanco Iv Per Pharmacy) VANCOMYCIN PER PHARMACY PER PROTOCOL XX ; Start 12/10/18 at 23:30 Cefepime HCl 50 ml @ 100 mls/hr Q12 IVPB Last administered on 12/14/18 09:40; Admin Dose 100 MLS/HR; Start 12/11/18 at 09:00 Vancomycin HCl 1.25 gm/Sodium Chloride 250 ml @ 83.333 mls/ hr Q12H IVPB Last administered on 12/14/18 02:47; Admin Dose 83.333 MLS/HR; Start 12/11/18 at 03:00 Diagnostic Test (Pha) (Accu-Chek) 1 XX Last administered on 12/14/18 02:52; Admin Dose 1 EA; Start 12/12/18 at 02:00 Insulin Aspart (Novolog Insulin Pen) NOVOLOG *MILD* ALGORITHM WITH MEALS BEDTIME SC Last administered on 12/14/18 13:01; Admin Dose 1 UNIT; Start 12/11/18 at 07:55 Miscellaneous Information 1 ea NOTE XX ; Start 12/11/18 at 06:30 Glucose (Glutose) 15 gm Q15M PRN PO DECREASED GLUCOSE; Start 12/11/18 at 06:30 Glucose (Glutose) 22.5 gm Q15M PRN PO DECREASED GLUCOSE; Start 12/11/18 at 06:30 Dextrose (D50w Syringe) 25 ml Q15M PRN IV DECREASED GLUCOSE; Start 12/11/18 at 06:30 Dextrose (D50w Syringe) 50 ml Q15M PRN IV DECREASED GLUCOSE; Start 12/11/18 at 06:30 Glucagon (Glucagen) 1 mg Q15M PRN IM DECREASED GLUCOSE; Start 12/11/18 at 06:30 Glucose (Glutose) 15 gm Q15M PRN BUCCAL DECREASED GLUCOSE; Start 12/11/18 at 06:30 Propranolol HCl (Inderal) 60 mg Q6H PO Last administered on 12/14/18 09:39; Admin Dose 60 MG; Start 12/11/18 at 09:00 Docusate Sodium (Colace) 100 mg Q12 PO Last administered on 12/13/18 08:01; Admin Dose 100 MG; Start 12/11/18 at 21:00 Methimazole (Tapazole) 40 mg AC BREAKFAST PO Last administered on 12/14/18 06:48; Admin Dose 40 MG; Start 12/13/18 at 07:25 Insulin Glargine (Lantus) 13 units DAILY@0800 SC Last administered on 12/14/18 09:59; Admin Dose 13 UNITS; Start 12/13/18 at 08:00 Polyethylene Glycol (Miralax) 17 gm DAILY PO Last administered on 12/13/18 10:35; Admin Dose 17 GM; Start 12/13/18 at 10:30 Metformin HCl (Glucophage) 500 mg BID WITH MEALS PO Last administered on 12/14/18 09:39; Admin Dose 500 MG; Start 12/13/18 at 13:00 Diagnostic Test (Pha) (Accu-Chek) 1 ea AC MEALS AND BEDTIME XX Last administered on 12/14/18at 11:20; Admin Dose 1 EA; Start 12/13/18 at 17:25 Amoxicillin (Amoxicillin) 1,000 mg BID PO Last administered on 12/14/18at 12:48; Admin Dose 1,000 MG; Start 12/14/18 at 09:30; Stop 12/28/18 at 09:29 Clarithromycin (Biaxin) 500 mg BID PO Last administered on 12/14/18at 12:47; Admin Dose 500 MG; Start 12/14/18 at 09:30; Stop 12/28/18 at 09:29 Pantoprazole (Protonix Tab) 40 mg BID@06,18 PO ; Start 12/14/18 at 18:00; Stop 12/28/18 at 17:59 Insulin Aspart (Novolog Insulin Pen) 6 unit WITH MEALS SC Last administered on 12/14/18at 13:01; Admin Dose 6 UNIT; Start 12/14/18 at 11:50 YECENIA MANTILLA MD Dec 14, 2018 13:12
--- NOTE | 2018-12-14 13:42 | CONS ---
Assessment/Plan Assessment/Plan Hospital Course (Demo Recall) - Recurrent SIRS (fever and tachycardia); previous ID w/u and imaging were negative - H. pylori Ag in stool + on 11/26/2018 - Positive Quantiferon TB gold on 11/25/2018, with no evidence of active disease - Graves disease - Hyperthyroidism - on Tapazole - T2DM - Hgb A1c 6.1% - Negative HIV and HIV viral load Recommendations: - Continue treatment for H. pylori with amoxicillin, clarithromycin and PPI x 14 days (12/14/2018-) - Discontinue Vancomycin and Cefepime (12/11/2018-12/14/18) - ordered - Pending: resp virus panel, procalc, cocci, crypto, 1,3 [id number] - Consider wbc scan if sxs continue - Additional recs will be made based on results of above Management d/w patient and with Dr. Tomas. Thank you. Consultation Date/Type/Reason Admit Date/Time Dec 10, 2018 at 22:47 Initial Consult Date 12/12/18 Requesting Provider: YOLI ZAMORANO Date/Time of Note DATE: 12/14/18 TIME: 13:39 24 HR Interval Summary Free Text/Dictation Per d/w patient he does not have much cough, only "2-3 times earlier". Denies sob, cp, fevers, chills, sob, n/v/d, dysuria, pain. Exam/Review of Systems Exam Vitals Vital Signs Date Temp Pulse Resp B/P (MAP) Pulse Ox O2 O2 Flow FiO2 Time Delivery Rate 12/14/18 86 12:14 12/14/18 100.3 18 110/53 98 11:22 (72) 12/12/18 Room Air 20:06 Intake and Output 12/13/18 12/13/18 12/14/18 1515:00 23:00 07:00 IntakeIntake Total 50 ml 950 ml 1250 ml BalanceBalance 50 ml 950 ml 1250 ml Allergies Coded Allergies No Known Allergy (Unverified11/23/18) Exam Constitutional: alert, oriented, well developed Psych: no complaints Head: normocephalic, atraumatic Eyes: nl conjunctiva, nl lids, nl sclera ENMT: nl external ears & nose, nl nasal mucosa & septum, mucosa pink and moist Neck: supple Respiratory: clear to auscultation, normal air movement, other (on room air) Cardiovascular: regular rate and rhythm, nl pulses Gastrointestinal: soft, non-tender Genitourinary - Male: other (no f/c) Musculoskeletal: nl extremities to inspection Extremities: normal pulses Neurological: nl mental status, nl speech, nl strength Skin: nl turgor; No rash or lesions Results Result Diagram: 12/14/18 0736 12/14/18 0736 Results 24hrs Laboratory Tests Test 12/13/18 17:35 12/13/18 21:05 12/14/18 02:51 12/14/18 07:36 Bedside Glucose 208 193 202 White Blood Count 7.9 # Red Blood Count 3.85 L Hemoglobin 10.0 L Hematocrit 31.9 L Mean Corpuscular Volume 82.9 Mean Corpuscular 26.0 L Hemoglobin Mean Corpuscular 31.3 L Hemoglobin Concent Red Cell Distribution 15.6 H Width Platelet Count 159 Mean Platelet Volume 9.7 Immature Granulocytes % 0.500 H Neutrophils % Lymphocytes % Monocytes % Eosinophils % Basophils % Nucleated Red Blood 0.0 Cells % Immature Granulocytes # 0.040 H Neutrophils # Lymphocytes # Monocytes # Eosinophils # Basophils # Nucleated Red Blood Cells # Sodium Level 137 Potassium Level 4.2 Chloride Level 95 L Carbon Dioxide Level 33 H Anion Gap 9 Blood Urea Nitrogen 12 Creatinine 0.77 Est Glomerular Filtrat > 60 Rate mL/min Glucose Level 177 Calcium Level 10.1 Test 12/14/18 09:44 12/14/18 12:47 Bedside Glucose 210 160 Imaging Imaging CXR 12/13/18 IMPRESSION: No visualized active disease. Medications Medication Current Medications IV Flush (NS 3 ml) 3 ml PER PROTOCOL IV ; Start 12/10/18 at 23:30 Ondansetron HCl (Zofran Inj) 4 mg Q6H PRN IV NAUSEA/VOMITING Last administered on 12/11/18at 03:36; Admin Dose 4 MG; Start 12/10/18 at 23:30 Acetaminophen (Tylenol Tab) 650 mg Q6H PRN PO .PAIN 1-3 OR TEMP; Start 12/10/18 at 23:30 Bisacodyl (Dulcolax) 5 mg DAILY PRN PO .CONSTIPATION Last administered on 12/13/18at 08:01; Admin Dose 5 MG; Start 12/10/18 at 23:30 Vancomycin HCl (Vanco Iv Per Pharmacy) VANCOMYCIN PER PHARMACY PER PROTOCOL XX ; Start 12/10/18 at 23:30 Cefepime HCl 50 ml @ 100 mls/hr Q12 IVPB Last administered on 12/14/18at 09:40; Admin Dose 100 MLS/HR; Start 12/11/18 at 09:00 Vancomycin HCl 1.25 gm/Sodium Chloride 250 ml @ 83.333 mls/ hr Q12H IVPB Last administered on 12/14/18at 02:47; Admin Dose 83.333 MLS/HR; Start 12/11/18 at 03:00 Diagnostic Test (Pha) (Accu-Chek) 1 ea 02 XX Last administered on 12/14/18at 02:52; Admin Dose 1 EA; Start 12/12/18 at 02:00 Insulin Aspart (Novolog Insulin Pen) NOVOLOG *MILD* ALGORITHM WITH MEALS BEDTIME SC Last administered on 12/14/18at 13:01; Admin Dose 1 UNIT; Start 12/11/18 at 07:55 Miscellaneous Information 1 ea NOTE XX ; Start 12/11/18 at 06:30 Glucose (Glutose) 15 gm Q15M PRN PO DECREASED GLUCOSE; Start 12/11/18 at 06:30 Glucose (Glutose) 22.5 gm Q15M PRN PO DECREASED GLUCOSE; Start 12/11/18 at 06:30 Dextrose (D50w Syringe) 25 ml Q15M PRN IV DECREASED GLUCOSE; Start 12/11/18 at 06:30 Dextrose (D50w Syringe) 50 ml Q15M PRN IV DECREASED GLUCOSE; Start 12/11/18 at 06:30 Glucagon (Glucagen) 1 mg Q15M PRN IM DECREASED GLUCOSE; Start 12/11/18 at 06:30 Glucose (Glutose) 15 gm Q15M PRN BUCCAL DECREASED GLUCOSE; Start 12/11/18 at 06:30 Propranolol HCl (Inderal) 60 mg Q6H PO Last administered on 12/14/18at 09:39; Admin Dose 60 MG; Start 12/11/18 at 09:00 Docusate Sodium (Colace) 100 mg Q12 PO Last administered on 12/13/18at 08:01; Admin Dose 100 MG; Start 12/11/18 at 21:00 Methimazole (Tapazole) 40 mg AC BREAKFAST PO Last administered on 12/14/18 06:48; Admin Dose 40 MG; Start 12/13/18 at 07:25 Insulin Glargine (Lantus) 13 units DAILY@0800 SC Last administered on 12/14/18 09:59; Admin Dose 13 UNITS; Start 12/13/18 at 08:00 Polyethylene Glycol (Miralax) 17 gm DAILY PO Last administered on 12/13/18 10:35; Admin Dose 17 GM; Start 12/13/18 at 10:30 Metformin HCl (Glucophage) 500 mg BID WITH MEALS PO Last administered on 12/14/18 09:39; Admin Dose 500 MG; Start 12/13/18 at 13:00 Diagnostic Test (Pha) (Accu-Chek) 1 ea AC MEALS AND BEDTIME XX Last administered on 12/14/18 11:20; Admin Dose 1 EA; Start 12/13/18 at 17:25 Amoxicillin (Amoxicillin) 1,000 mg BID PO Last administered on 12/14/18 12:48; Admin Dose 1,000 MG; Start 12/14/18 at 09:30; Stop 12/28/18 at 09:29 Clarithromycin (Biaxin) 500 mg BID PO Last administered on 12/14/18 12:47; Admin Dose 500 MG; Start 12/14/18 at 09:30; Stop 12/28/18 at 09:29 Pantoprazole (Protonix Tab) 40 mg BID@06,18 PO ; Start 12/14/18 at 18:00; Stop 12/28/18 at 17:59 Insulin Aspart (Novolog Insulin Pen) 6 unit WITH MEALS SC Last administered on 12/14/18 13:01; Admin Dose 6 UNIT; Start 12/14/18 at 11:50 BAL GODOY NP Dec 14, 2018 13:42
--- NOTE | 2018-12-14 14:12 | PN ---
Date/Time of Note Date/Time of Note DATE: 12/14/18 TIME: 14:09 Assessment/Plan VTE Prophylaxis Risk score (from [facility] [place])>0 risk: 3 SCD applied (from [facility] [place]): Yes Pharmacological prophylaxis: NA/contraindicated Pharm contraindication: low risk/ambulating Lines/Catheters [facility] ([facility] Saline Lock Urinary Cath still in place: No Assessment/Plan Assessment/Plan #1 sepsis vs SIRS: -source is unclear, this is patient's 2nd episode in the last few weeks -unlikely to be 2/2 TB -May be related to hyperthyroidism - May be viral prodome. - Blood, urine cultures negative. -basic influenza screen negative - Unclear why patient is on vanc and cefepime. Will discontinue. 2. acute RTI -viral, no significant cough -hx of + quantiferon gold, TB r/o ongoing (sputum AFB neg 1/3, TB PCR neg 0/2) -CT chest from last admission reviewed 3. Chronic hyperthyroidism: still uncontrolled -continue methimazole and propranolol - appreciate endo consult -thyroid USS showed diffusely enlarged thyroid gland without nodule #3 Diabetes mellitus: poor control -monitor levels and titrate meds as indicated -a1C 6.1 #4. Poor appetite and weight loss -likely related to #3, per family patient had been well controlled for a long time and then he fell off his meds and has just recently been put back on them. -continue diet supplements, PT PRN 5. H Pylori - Started on triple therapy. Result Diagram: 12/14/18 0736 12/14/18 0736 Results 24hrs Laboratory Tests Test 12/13/18 17:35 12/13/18 21:05 12/14/18 02:51 12/14/18 07:36 Bedside Glucose 208 193 202 White Blood Count 7.9 # Red Blood Count 3.85 L Hemoglobin 10.0 L Hematocrit 31.9 L Mean Corpuscular Volume 82.9 Mean Corpuscular 26.0 L Hemoglobin Mean Corpuscular 31.3 L Hemoglobin Concent Red Cell Distribution 15.6 H Width Platelet Count 159 Mean Platelet Volume 9.7 Immature Granulocytes % 0.500 H Neutrophils % Lymphocytes % Monocytes % Eosinophils % Basophils % Nucleated Red Blood 0.0 Cells % Immature Granulocytes # 0.040 H Neutrophils # Lymphocytes # Monocytes # Eosinophils # Basophils # Nucleated Red Blood Cells # Sodium Level 137 Potassium Level 4.2 Chloride Level 95 L Carbon Dioxide Level 33 H Anion Gap 9 Blood Urea Nitrogen 12 Creatinine 0.77 Est Glomerular Filtrat > 60 Rate mL/min Glucose Level 177 Calcium Level 10.1 Test 12/14/18 09:44 12/14/18 12:47 Bedside Glucose 210 160 Subjective 24 Hr Interval Summary Free Text/Dictation Elevated temperature to 100.7 last night. Otherwise patient feeling well, no complaints. Exam/Review of Systems Exam Vitals Vital Signs Date Temp Pulse Resp B/P (MAP) Pulse Ox O2 O2 Flow FiO2 Time Delivery Rate 12/14/18 86 12:14 12/14/18 100.3 18 110/53 98 11:22 (72) 12/12/18 Room Air 20:06 Intake and Output 12/13/18 12/13/18 12/14/18 1515:00 23:00 07:00 IntakeIntake Total 50 ml 950 ml 1250 ml BalanceBalance 50 ml 950 ml 1250 ml Exam General: A&O x3, answering questions appropriately, no distress, HEENT: NC/ AT. PERRL. EOM intact Neck: supple CVS: S1, S2, RRR. no murmurs. no pain on chest wall palpation Lungs: CTA b/l. no wheezing or rhonchi Abd: soft, nontender, +BS Ext: moving all extremities skin: no rashes Results Results 24hrs Laboratory Tests Test 12/13/18 17:35 12/13/18 21:05 12/14/18 02:51 12/14/18 07:36 Bedside Glucose 208 193 202 White Blood Count 7.9 # Red Blood Count 3.85 L Hemoglobin 10.0 L Hematocrit 31.9 L Mean Corpuscular Volume 82.9 Mean Corpuscular 26.0 L Hemoglobin Mean Corpuscular 31.3 L Hemoglobin Concent Red Cell Distribution 15.6 H Width Platelet Count 159 Mean Platelet Volume 9.7 Immature Granulocytes % 0.500 H Neutrophils % Lymphocytes % Monocytes % Eosinophils % Basophils % Nucleated Red Blood 0.0 Cells % Immature Granulocytes # 0.040 H Neutrophils # Lymphocytes # Monocytes # Eosinophils # Basophils # Nucleated Red Blood Cells # Sodium Level 137 Potassium Level 4.2 Chloride Level 95 L Carbon Dioxide Level 33 H Anion Gap 9 Blood Urea Nitrogen 12 Creatinine 0.77 Est Glomerular Filtrat > 60 Rate mL/min Glucose Level 177 Calcium Level 10.1 Test 12/14/18 09:44 12/14/18 12:47 Bedside Glucose 210 160 Medications Medication Current Medications IV Flush (NS 3 ml) 3 ml PER PROTOCOL IV ; Start 12/10/18 at 23:30 Ondansetron HCl (Zofran Inj) 4 mg Q6H PRN IV NAUSEA/VOMITING Last administered on 12/11/18at 03:36; Admin Dose 4 MG; Start 12/10/18 at 23:30 Acetaminophen (Tylenol Tab) 650 mg Q6H PRN PO .PAIN 1-3 OR TEMP; Start 12/10/18 at 23:30 Bisacodyl (Dulcolax) 5 mg DAILY PRN PO .CONSTIPATION Last administered on 12/13/18at 08:01; Admin Dose 5 MG; Start 12/10/18 at 23:30 Vancomycin HCl (Vanco Iv Per Pharmacy) VANCOMYCIN PER PHARMACY PER PROTOCOL XX ; Start 12/10/18 at 23:30 Cefepime HCl 50 ml @ 100 mls/hr Q12 IVPB Last administered on 12/14/18at 09:40; Admin Dose 100 MLS/HR; Start 12/11/18 at 09:00 Vancomycin HCl 1.25 gm/Sodium Chloride 250 ml @ 83.333 mls/ hr Q12H IVPB Last administered on 12/14/18at 02:47; Admin Dose 83.333 MLS/HR; Start 12/11/18 at 03:00 Diagnostic Test (Pha) (Accu-Chek) 1 ea 02 XX Last administered on 12/14/18at 02:52; Admin Dose 1 EA; Start 12/12/18 at 02:00 Insulin Aspart (Novolog Insulin Pen) NOVOLOG *MILD* ALGORITHM WITH MEALS BEDTIME SC Last administered on 12/14/18at 13:01; Admin Dose 1 UNIT; Start 12/11/18 at 07:55 Miscellaneous Information 1 ea NOTE XX ; Start 12/11/18 at 06:30 Glucose (Glutose) 15 gm Q15M PRN PO DECREASED GLUCOSE; Start 12/11/18 at 06:30 Glucose (Glutose) 22.5 gm Q15M PRN PO DECREASED GLUCOSE; Start 12/11/18 at 06:30 Dextrose (D50w Syringe) 25 ml Q15M PRN IV DECREASED GLUCOSE; Start 12/11/18 at 06:30 Dextrose (D50w Syringe) 50 ml Q15M PRN IV DECREASED GLUCOSE; Start 12/11/18 at 06:30 Glucagon (Glucagen) 1 mg Q15M PRN IM DECREASED GLUCOSE; Start 12/11/18 at 06:30 Glucose (Glutose) 15 gm Q15M PRN BUCCAL DECREASED GLUCOSE; Start 12/11/18 at 06:30 Propranolol HCl (Inderal) 60 mg Q6H PO Last administered on 12/14/18 09:39; Admin Dose 60 MG; Start 12/11/18 at 09:00 Docusate Sodium (Colace) 100 mg Q12 PO Last administered on 12/13/18 08:01; Admin Dose 100 MG; Start 12/11/18 at 21:00 Methimazole (Tapazole) 40 mg AC BREAKFAST PO Last administered on 12/14/18 06:48; Admin Dose 40 MG; Start 12/13/18 at 07:25 Insulin Glargine (Lantus) 13 units DAILY@0800 SC Last administered on 12/14/18 09:59; Admin Dose 13 UNITS; Start 12/13/18 at 08:00 Polyethylene Glycol (Miralax) 17 gm DAILY PO Last administered on 12/13/18 10:35; Admin Dose 17 GM; Start 12/13/18 at 10:30 Metformin HCl (Glucophage) 500 mg BID WITH MEALS PO Last administered on 12/14/18 09:39; Admin Dose 500 MG; Start 12/13/18 at 13:00 Diagnostic Test (Pha) (Accu-Chek) 1 ea AC MEALS AND BEDTIME XX Last administered on 12/14/18 11:20; Admin Dose 1 EA; Start 12/13/18 at 17:25 Amoxicillin (Amoxicillin) 1,000 mg BID PO Last administered on 12/14/18 12:48; Admin Dose 1,000 MG; Start 12/14/18 at 09:30; Stop 12/28/18 at 09:29 Clarithromycin (Biaxin) 500 mg BID PO Last administered on 12/14/18 12:47; Admin Dose 500 MG; Start 12/14/18 at 09:30; Stop 12/28/18 at 09:29 Pantoprazole (Protonix Tab) 40 mg BID@06,18 PO ; Start 12/14/18 at 18:00; Stop 12/28/18 at 17:59 Insulin Aspart (Novolog Insulin Pen) 6 unit WITH MEALS SC Last administered on 12/14/18at 13:01; Admin Dose 6 UNIT; Start 12/14/18 at 11:50 PURVI QUIGLEY MD Dec 14, 2018 14:12
[2018-12-14] MEDS: PANTOPRAZOLE (EC) 40 MG TAB PO SCH (17:46)
[2018-12-15] VITALS (9 sets, daily range): BP systolic 103–123; BP diastolic 56–67; PULSE 76–96; RESP 16–18
[2018-12-15] MEDS: ACCU-CHEK XX SCH ×5 (02:00→21:00)
[2018-12-15] MEDS: PROPRANOLOL 20 MG TAB PO SCH ×4 (03:34→21:00)
[2018-12-15] MEDS: PANTOPRAZOLE (EC) 40 MG TAB PO SCH ×2 (06:29→17:45)
[2018-12-15] MEDS: METHIMAZOLE 5 MG TAB PO SCH (06:30)
[2018-12-15] MEDS: INSULIN ASPART [NOVOLOG] 3 ML PEN SC SCH ×7 (07:55→21:00)
[2018-12-15] MEDS: CLARITHROMYCIN 500 MG TAB PO SCH ×2 (08:19→21:00)
[2018-12-15] MEDS: AMOXICILLIN 500 MG CAP PO SCH ×2 (08:19→21:00)
[2018-12-15] MEDS: metFORMIN 500 MG TAB PO SCH ×2 (08:20→17:46)
[2018-12-15] MEDS: INSULIN GLARGINE [LANTus] (100 UNITS/ML) SYG SC SCH (08:42)
[2018-12-15] MEDS: POLYETHYLENE GLYCOL 17 GM PACKET PO SCH (09:00)
[2018-12-15] MEDS: DOCUSATE SODIUM 100 MG CAP PO SCH ×2 (09:00→21:00)
--- NOTE | 2018-12-15 11:37 | PN ---
Date/Time of Note Date/Time of Note DATE: 12/15/18 TIME: 11:36 Assessment/Plan VTE Prophylaxis Risk score (from [facility])>0 risk: 3 [place] [facility] [place] Pharmacological prophylaxis: NA/contraindicated Pharm contraindication: low risk/ambulating Lines/Catheters IV Catheter Type (from [facility] Saline Lock Urinary Cath still in place: No Assessment/Plan Assessment/Plan #1 sepsis vs SIRS: -source is unclear, this is patient's 2nd episode in the last few weeks -unlikely to be 2/2 TB -May be related to hyperthyroidism - May be viral prodome. - Blood, urine cultures negative. -basic influenza screen negative - Unclear why patient is on vanc and cefepime. Will discontinue. 2. acute RTI -viral, no significant cough -hx of + quantiferon gold, TB r/o ongoing (sputum AFB neg 2/3, TB PCR neg 0/2) -CT chest from last admission reviewed 3. Chronic hyperthyroidism: still uncontrolled -continue methimazole and propranolol - appreciate endo consult -thyroid USS showed diffusely enlarged thyroid gland without nodule #3 Diabetes mellitus: poor control -monitor levels and titrate meds as indicated -a1C 6.1 #4. Poor appetite and weight loss -likely related to #3, per family patient had been well controlled for a long time and then he fell off his meds and has just recently been put back on them. -continue diet supplements, PT PRN 5. H Pylori - Started on triple therapy. Result Diagram: 12/14/18 0736 12/14/18 0736 Subjective 24 Hr Interval Summary Free Text/Dictation No acute overnight events. Patient has no complaints. Exam/Review of Systems Exam Vitals Vital Signs Date Temp Pulse Resp B/P (MAP) Pulse Ox O2 O2 Flow FiO2 Time Delivery Rate 12/15/18 95 08:17 12/15/18 102.0 18 113/67 95 08:04 (82) 12/12/18 Room Air 20:06 Intake and Output 12/14/18 12/14/18 12/15/18 1515:00 23:00 07:00 IntakeIntake Total 750 ml 650 ml BalanceBalance 750 ml 650 ml Exam General: A&O x3, answering questions appropriately, no distress, HEENT: NC/ AT. PERRL. EOM intact Neck: supple CVS: S1, S2, RRR. no murmurs. no pain on chest wall palpation Lungs: CTA b/l. no wheezing or rhonchi Abd: soft, nontender, +BS Ext: moving all extremities skin: no rashes Medications Medication Current Medications IV Flush (NS 3 ml) 3 ml PER PROTOCOL IV ; Start 12/10/18 at 23:30 Ondansetron HCl (Zofran Inj) 4 mg Q6H PRN IV NAUSEA/VOMITING Last administered on 12/11/18at 03:36; Admin Dose 4 MG; Start 12/10/18 at 23:30 Acetaminophen (Tylenol Tab) 650 mg Q6H PRN PO .PAIN 1-3 OR TEMP; Start 12/10/18 at 23:30 Bisacodyl (Dulcolax) 5 mg DAILY PRN PO .CONSTIPATION Last administered on 12/13/18 08:01; Admin Dose 5 MG; Start 12/10/18 at 23:30 Diagnostic Test (Pha) (Accu-Chek) 1 ea 02 XX Last administered on 12/14/18at 02:52; Admin Dose 1 EA; Start 12/12/18 at 02:00 Insulin Aspart (Novolog Insulin Pen) NOVOLOG *MILD* ALGORITHM WITH MEALS BEDTIME SC Last administered on 12/14/18 13:01; Admin Dose 1 UNIT; Start 12/11/18 at 07:55 Miscellaneous Information 1 ea NOTE XX ; Start 12/11/18 at 06:30 Glucose (Glutose) 15 gm Q15M PRN PO DECREASED GLUCOSE; Start 12/11/18 at 06:30 Glucose (Glutose) 22.5 gm Q15M PRN PO DECREASED GLUCOSE; Start 12/11/18 at 06:30 Dextrose (D50w Syringe) 25 ml Q15M PRN IV DECREASED GLUCOSE; Start 12/11/18 at 06:30 Dextrose (D50w Syringe) 50 ml Q15M PRN IV DECREASED GLUCOSE; Start 12/11/18 at 06:30 Glucagon (Glucagen) 1 mg Q15M PRN IM DECREASED GLUCOSE; Start 12/11/18 at 06:30 Glucose (Glutose) 15 gm Q15M PRN BUCCAL DECREASED GLUCOSE; Start 12/11/18 at 06:30 Propranolol HCl (Inderal) 60 mg Q6H PO Last administered on 12/15/18 08:19; Admin Dose 60 MG; Start 12/11/18 at 09:00 Docusate Sodium (Colace) 100 mg Q12 PO Last administered on 12/14/18 20:43; Admin Dose 100 MG; Start 12/11/18 at 21:00 Insulin Glargine (Lantus) 13 units DAILY@0800 SC Last administered on 12/15/18 08:42; Admin Dose 13 UNITS; Start 12/13/18 at 08:00 Polyethylene Glycol (Miralax) 17 gm DAILY PO Last administered on 12/13/18 10:35; Admin Dose 17 GM; Start 12/13/18 at 10:30 Metformin HCl (Glucophage) 500 mg BID WITH MEALS PO Last administered on 12/15/18 08:20; Admin Dose 500 MG; Start 12/13/18 at 13:00 Diagnostic Test (Pha) (Accu-Chek) 1 ea AC MEALS AND BEDTIME XX Last administered on 12/15/18 08:20; Admin Dose 1 EA; Start 12/13/18 at 17:25 Amoxicillin (Amoxicillin) 1,000 mg BID PO Last administered on 12/15/18 08:19; Admin Dose 1,000 MG; Start 12/14/18 at 09:30; Stop 12/28/18 at 09:29 Clarithromycin (Biaxin) 500 mg BID PO Last administered on 12/15/18 08:19; Admin Dose 500 MG; Start 12/14/18 at 09:30; Stop 12/28/18 at 09:29 Pantoprazole (Protonix Tab) 40 mg BID@06,18 PO Last administered on 12/15/18 06:29; Admin Dose 40 MG; Start 12/14/18 at 18:00; Stop 12/28/18 at 17:59 Insulin Aspart (Novolog Insulin Pen) 6 unit WITH MEALS SC Last administered on 12/15/18 08:43; Admin Dose 6 UNIT; Start 12/14/18 at 11:50 Methimazole (Tapazole) 30 mg Q12H PO ; Start 12/16/18 at 07:25 Methimazole (Tapazole) 20 mg ONCE ONCE PO ; Start 12/15/18 at 19:00; Stop 12/15/18 at 19:01 PURVI QUIGLEY MD Dec 15, 2018 11:37
--- NOTE | 2018-12-15 11:40 | CONS ---
Assessment/Plan Assessment/Plan Hospital Course (Demo Recall) - Recurrent SIRS (fever and tachycardia); previous ID w/u and imaging were negative; - s/p Vancomycin and Cefepime (12/11/2018-12/14/18) - H. 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 pylori with amoxicillin, clarithromycin and PPI x 14 days (12/14/2018-) - Perdomo culture now - ordered - Pending: resp virus panel, procalc, cocci, 1,3 [id number], AFB smears x2 more - Consider WBC scan - Additional recs will be made based on results of above Management d/w patient and with Dr. Tomas. Thank you. Consultation Date/Type/Reason Admit Date/Time Dec 10, 2018 at 22:47 Initial Consult Date 12/12/18 Type of Consult ID Requesting Provider: YOLI ZAMORANO Date/Time of Note DATE: 12/15/18 TIME: 11:34 24 HR Interval Summary Free Text/Dictation Febrile, 102, d/w patient's RN at the bedside and is aware of the perdomo culture I ordered. Patient c/o the room is "very hot." C/o a dry cough. Denies chills, sweats. Denies sob, cp, n/v/d, dysuria, pruritis, rash. Exam/Review of Systems Exam Vitals Vital Signs Date Temp Pulse Resp B/P (MAP) Pulse Ox O2 O2 Flow FiO2 Time Delivery Rate 12/15/18 95 08:17 12/15/18 102.0 18 113/67 95 08:04 (82) 12/12/18 Room Air 20:06 Intake and Output 12/14/18 12/14/18 12/15/18 1515:00 23:00 07:00 IntakeIntake Total 750 ml 650 ml BalanceBalance 750 ml 650 ml Allergies Coded Allergies No Known Allergy (Unverified11/23/18) Exam Constitutional: alert, oriented, well developed, other (laying in bed) Psych: no complaints Head: normocephalic, atraumatic Eyes: nl conjunctiva, nl lids, nl sclera ENMT: nl external ears & nose, nl nasal mucosa & septum, mucosa pink and moist Neck: supple Respiratory: clear to auscultation, normal air movement, other (on room air) Cardiovascular: regular rate and rhythm, nl pulses Gastrointestinal: soft, non-tender Genitourinary - Male: other (no f/c) Musculoskeletal: nl extremities to inspection Extremities: normal pulses, other (skin feels very warm) Neurological: nl mental status, nl speech, nl strength Skin: nl turgor; No rash or lesions Results Result Diagram: 12/14/18 0712/14/18 0736 Results 24hrs Laboratory Tests Test 12/14/18 12:47 12/14/18 17:45 12/14/18 20:42 12/15/18 05:55 Bedside Glucose 160 104 109 Thyroid Stimulating < 0.015 L Hormone (TSH) Free Thyroxine 6.82 H Thyroxine (T4) 19.9 H Total Triiodothyronine 1.94 H Test 12/15/18 08:18 Bedside Glucose 108 Medications Medication Current Medications IV Flush (NS 3 ml) 3 ml PER PROTOCOL IV ; Start 12/10/18 at 23:30 Ondansetron HCl (Zofran Inj) 4 mg Q6H PRN IV NAUSEA/VOMITING Last administered on 12/11/18at 03:36; Admin Dose 4 MG; Start 12/10/18 at 23:30 Acetaminophen (Tylenol Tab) 650 mg Q6H PRN PO .PAIN 1-3 OR TEMP; Start 12/10/18 at 23:30 Bisacodyl (Dulcolax) 5 mg DAILY PRN PO .CONSTIPATION Last administered on 12/13/18at 08:01; Admin Dose 5 MG; Start 12/10/18 at 23:30 Diagnostic Test (Pha) (Accu-Chek) 1 ea 02 XX Last administered on 12/14/18at 02:52; Admin Dose 1 EA; Start 12/12/18 at 02:00 Insulin Aspart (Novolog Insulin Pen) NOVOLOG *MILD* ALGORITHM WITH MEALS BEDTIME SC Last administered on 12/14/18at 13:01; Admin Dose 1 UNIT; Start 12/11/18 at 07:55 Miscellaneous Information 1 ea NOTE XX ; Start 12/11/18 at 06:30 Glucose (Glutose) 15 gm Q15M PRN PO DECREASED GLUCOSE; Start 12/11/18 at 06:30 Glucose (Glutose) 22.5 gm Q15M PRN PO DECREASED GLUCOSE; Start 12/11/18 at 06:30 Dextrose (D50w Syringe) 25 ml Q15M PRN IV DECREASED GLUCOSE; Start 12/11/18 at 06:30 Dextrose (D50w Syringe) 50 ml Q15M PRN IV DECREASED GLUCOSE; Start 12/11/18 at 06:30 Glucagon (Glucagen) 1 mg Q15M PRN IM DECREASED GLUCOSE; Start 12/11/18 at 06:30 Glucose (Glutose) 15 gm Q15M PRN BUCCAL DECREASED GLUCOSE; Start 12/11/18 at 06 :30 Propranolol HCl (Inderal) 60 mg Q6H PO Last administered on 12/15/18 08:19; Admin Dose 60 MG; Start 12/11/18 at 09:00 Docusate Sodium (Colace) 100 mg Q12 PO Last administered on 12/14/18at 20:43; Admin Dose 100 MG; Start 12/11/18 at 21:00 Insulin Glargine (Lantus) 13 units DAILY@0800 SC Last administered on 12/15/18 08:42; Admin Dose 13 UNITS; Start 12/13/18 at 08:00 Polyethylene Glycol (Miralax) 17 gm DAILY PO Last administered on 12/13/18at 10:35; Admin Dose 17 GM; Start 12/13/18 at 10:30 Metformin HCl (Glucophage) 500 mg BID WITH MEALS PO Last administered on 12/15/18 08:20; Admin Dose 500 MG; Start 12/13/18 at 13:00 Diagnostic Test (Pha) (Accu-Chek) 1 ea AC MEALS AND BEDTIME XX Last administered on 12/15/18 08:20; Admin Dose 1 EA; Start 12/13/18 at 17:25 Amoxicillin (Amoxicillin) 1,000 mg BID PO Last administered on 12/15/18 08:19; Admin Dose 1,000 MG; Start 12/14/18 at 09:30; Stop 12/28/18 at 09:29 Clarithromycin (Biaxin) 500 mg BID PO Last administered on 2/10/19at 08:19; Admin Dose 500 MG; Start 12/14/18 at 09:30; Stop 12/28/18 at 09:29 Pantoprazole (Protonix Tab) 40 mg BID@06,18 PO Last administered on 12/15/18at 06:29; Admin Dose 40 MG; Start 12/14/18 at 18:00; Stop 12/28/18 at 17:59 Insulin Aspart (Novolog Insulin Pen) 6 unit WITH MEALS SC Last administered on 12/15/18at 08:43; Admin Dose 6 UNIT; Start 12/14/18 at 11:50 Methimazole (Tapazole) 30 mg Q12H PO ; Start 12/16/18 at 07:25 Methimazole (Tapazole) 20 mg ONCE ONCE PO ; Start 12/15/18 at 19:00; Stop 12/06 at 19:01 BAL GODOY NP Dec 15, 2018 11:40
[2018-12-15] MEDS: ACETAMINOPHEN 325 MG TAB PO PRN (12:17)
--- NOTE | 2018-12-15 12:54 | CONS ---
Assessment/Plan Assessment/Plan Hospital Course (Demo Recall) Hyperthyroidism -repeat TFT reviewed, slight worsening of Total and Free T4 levels, Total T3 e levated -will increase methimazole to 60mg total daily dose -patient received 40mg this morning will give 20mg tonight and then starting tomorrow methimazole 30mg po Q12H DM type 2 -FS in normal range today after increase in novolog yesterday -continue novolog 6 units TIDAC -continue lantus 13 units daily in AM -continue mild dose novolog correction scale AC and HS -continue metformin 500mg po BID -check FS AC and HS Consultation Date/Type/Reason Admit Date/Time Dec 10, 2018 at 22:47 Initial Consult Date 12/12/18 Requesting Provider: YOLI ZAMORANO Date/Time of Note DATE: 12/15/18 TIME: 12:53 24 HR Interval Summary Free Text/Dictation Patient seen and examined at bedside. He remains intermittently febrile. He denied palpitation, abdominal pain, diarrhea or shortness of breath. Exam/Review of Systems Exam Vitals Vital Signs Date Temp Pulse Resp B/P (MAP) Pulse Ox O2 O2 Flow FiO2 Time Delivery Rate 12/15/18 94 12:34 12/15/18 101.6 12:17 12/15/18 108/63 12:00 (78) 12/15/18 18 95 08:04 12/12/18 Room Air 20:06 Intake and Output 12/14/18 12/14/18 12/15/18 1515:00 23:00 07:00 IntakeIntake Total 750 ml 650 ml BalanceBalance 750 ml 650 ml Exam General: Comfortable in appearance, not in acute distress. Skin appropriate for ethnicity Eye: Extraocular movements are intact, Normal conjunctiva. Mild exothalmos HENT: Normocephalic, atraumatic. Respiratory: Respirations are non-labored, Breath sounds are equal, Symmetrical chest wall expansion. Cardiovascular: S1, S2. No murmur. No LE edema Gastrointestinal: Soft, Non-tender, Non-distended, Normal bowel sounds. Integumentary: Warm to touch. Neurologic: Alert, Oriented. No hand tremor Cognition and Speech: Speech clear and coherent, Functional cognition intact. Psychiatric: Cooperative, Appropriate mood & affect. Results Result Diagram: 12/14/18 0736 12/14/18 0736 Results 24hrs Laboratory Tests Test 12/14/18 17:45 12/14/18 20:42 12/15/18 05:55 12/15/18 08:18 Bedside Glucose 104 109 108 Thyroid Stimulating < 0.015 L Hormone (TSH) Free Thyroxine 6.82 H Thyroxine (T4) 19.9 H Total 1.94 H Triiodothyronine Test 12/15/18 12:08 Bedside Glucose 140 Medications Medication Current Medications IV Flush (NS 3 ml) 3 ml PER PROTOCOL IV ; Start 12/10/18 at 23:30 Ondansetron HCl (Zofran Inj) 4 mg Q6H PRN IV NAUSEA/VOMITING Last administered on 12/11/18at 03:36; Admin Dose 4 MG; Start 12/10/18 at 23:30 Acetaminophen (Tylenol Tab) 650 mg Q6H PRN PO .PAIN 1-3 OR TEMP Last administered on 12/15/18 12:17; Admin Dose 650 MG; Start 12/10/18 at 23:30 Bisacodyl (Dulcolax) 5 mg DAILY PRN PO .CONSTIPATION Last administered on 12/13/18 08:01; Admin Dose 5 MG; Start 12/10/18 at 23:30 Diagnostic Test (Pha) (Accu-Chek) 1 ea 02 XX Last administered on 12/14/18at 02:52; Admin Dose 1 EA; Start 12/12/18 at 02:00 Insulin Aspart (Novolog Insulin Pen) NOVOLOG *MILD* ALGORITHM WITH MEALS BEDTIME SC Last administered on 12/14/18at 13:01; Admin Dose 1 UNIT; Start 12/11/18 at 07:55 Miscellaneous Information 1 ea NOTE XX ; Start 12/11/18 at 06:30 Glucose (Glutose) 15 gm Q15M PRN PO DECREASED GLUCOSE; Start 12/11/18 at 06:30 Glucose (Glutose) 22.5 gm Q15M PRN PO DECREASED GLUCOSE; Start 12/11/18 at 06:30 Dextrose (D50w Syringe) 25 ml Q15M PRN IV DECREASED GLUCOSE; Start 12/11/18 at 06:30 Dextrose (D50w Syringe) 50 ml Q15M PRN IV DECREASED GLUCOSE; Start 12/11/18 at 06:30 Glucagon (Glucagen) 1 mg Q15M PRN IM DECREASED GLUCOSE; Start 12/11/18 at 06:30 Glucose (Glutose) 15 gm Q15M PRN BUCCAL DECREASED GLUCOSE; Start 12/11/18 at 06:30 Propranolol HCl (Inderal) 60 mg Q6H PO Last administered on 12/15/18 08:19; Admin Dose 60 MG; Start 12/11/18 at 09:00 Docusate Sodium (Colace) 100 mg Q12 PO Last administered on 12/14/18 20:43; Admin Dose 100 MG; Start 12/11/18 at 21:00 Insulin Glargine (Lantus) 13 units DAILY@0800 SC Last administered on 12/15/18 08:42; Admin Dose 13 UNITS; Start 12/13/18 at 08:00 Polyethylene Glycol (Miralax) 17 gm DAILY PO Last administered on 12/13/18 10:35; Admin Dose 17 GM; Start 12/13/18 at 10:30 Metformin HCl (Glucophage) 500 mg BID WITH MEALS PO Last administered on 12/15/18 08:20; Admin Dose 500 MG; Start 12/13/18 at 13:00 Diagnostic Test (Pha) (Accu-Chek) 1 ea AC MEALS AND BEDTIME XX Last administered on 12/15/18 12:07; Admin Dose 1 EA; Start 12/13/18 at 17:25 Amoxicillin (Amoxicillin) 1,000 mg BID PO Last administered on 12/15/18 08:19; Admin Dose 1,000 MG; Start 12/14/18 at 09:30; Stop 12/28/18 at 09:29 Clarithromycin (Biaxin) 500 mg BID PO Last administered on 12/15/18 08:19; Admin Dose 500 MG; Start 12/14/18 at 09:30; Stop 12/28/18 at 09:29 Pantoprazole (Protonix Tab) 40 mg BID@,18 PO Last administered on 12/15/18 06:29; Admin Dose 40 MG; Start 12/14/18 at 18:00; Stop 12/28/18 at 17:59 Insulin Aspart (Novolog Insulin Pen) 6 unit WITH MEALS SC Last administered on 12/15/18 12:21; Admin Dose 6 UNIT; Start 12/14/18 at 11:50 Methimazole (Tapazole) 30 mg Q12H PO ; Start 12/16/18 at 07:25 Methimazole (Tapazole) 20 mg ONCE ONCE PO ; Start 12/15/18 at 19:00; Stop 12/15/18 at 19:01 YECENIA MANTILLA MD Dec 15, 2018 12:54
--- NOTE | 2018-12-15 13:33 | CONS ---
Consult Date/Type/Reason Admit Date/Time Dec 10, 2018 at 22:47 Initial Consult Date 12/12/18 Type of Consultation: Pulm Requesting Provider: YOLI ZAMORANO Date/Time of Note DATE: 12/15/18 TIME: 13:32 Subjective No events. No dyspnea. Objective Vitals Vital Signs Date Temp Pulse Resp B/P (MAP) Pulse Ox O2 O2 Flow FiO2 Time Delivery Rate 12/15/18 100.1 13:02 12/15/18 94 12:34 12/15/18 108/63 12:00 (78) 12/15/18 18 95 08:04 12/12/18 Room Air 20:06 Intake and Output 12/14/18 12/14/18 12/15/18 1515:00 23:00 07:00 IntakeIntake Total 750 ml 650 ml BalanceBalance 750 ml 650 ml Exam HEENT: Neck supple; no JVD; no LAD CVS: RRR, S1 and S2 CHEST: Clear ABD: Soft, NT, + BS EXT: No c/c/e Results/Medications Result Diagram: 12/14/18 0736 12/14/18 0736 Results 24 hrs Laboratory Tests Test 12/14/18 17:45 12/14/18 20:42 12/15/18 05:55 12/15/18 08:18 Bedside Glucose 104 109 108 Thyroid Stimulating < 0.015 L Hormone (TSH) Free Thyroxine 6.82 H Thyroxine (T4) 19.9 H Total 1.94 H Triiodothyronine Test 12/15/18 12:08 Bedside Glucose 140 Home Meds Active Scripts Methimazole* (Methimazole*) 5 Mg Tablet, 10 MG PO BID for 30 Days, TAB Prov:ASHLY MANTILLA MD 11/28/18 Metformin* (Glucophage*) 500 Mg Tab, 1000 MG PO BID WITH MEALS for 30 Days, TAB Prov:ASHLY MANTILLA MD 11/28/18 Reported Medications Glipizide* (Glipizide*) 5 Mg Tablet, 5 MG PO BID, TAB 11/23/18 Metformin* (Glucophage*) 1,000 Mg Tablet, 1000 MG PO BID, #60 TAB 11/23/18 Medications Current Medications IV Flush (NS 3 ml) 3 ml PER PROTOCOL IV ; Start 12/10/18 at 23:30 Ondansetron HCl (Zofran Inj) 4 mg Q6H PRN IV NAUSEA/VOMITING Last administered on 12/11/18 03:36; Admin Dose 4 MG; Start 12/10/18 at 23:30 Acetaminophen (Tylenol Tab) 650 mg Q6H PRN PO .PAIN 1-3 OR TEMP Last administered on 12/15/18 12:17; Admin Dose 650 MG; Start 12/10/18 at 23:30 Bisacodyl (Dulcolax) 5 mg DAILY PRN PO .CONSTIPATION Last administered on 12/13/18 08:01; Admin Dose 5 MG; Start 12/10/18 at 23:30 Diagnostic Test (Pha) (Accu-Chek) 1 ea 02 XX Last administered on 12/14/18 02:52; Admin Dose 1 EA; Start 12/12/18 at 02:00 Insulin Aspart (Novolog Insulin Pen) NOVOLOG *MILD* ALGORITHM WITH MEALS BEDTIME SC Last administered on 12/14/18 13:01; Admin Dose 1 UNIT; Start 12/11/18 at 07:55 Miscellaneous Information 1 ea NOTE XX ; Start 12/11/18 at 06:30 Glucose (Glutose) 15 gm Q15M PRN PO DECREASED GLUCOSE; Start 12/11/18 at 06:30 Glucose (Glutose) 22.5 gm Q15M PRN PO DECREASED GLUCOSE; Start 12/11/18 at 06:30 Dextrose (D50w Syringe) 25 ml Q15M PRN IV DECREASED GLUCOSE; Start 12/11/18 at 06:30 Dextrose (D50w Syringe) 50 ml Q15M PRN IV DECREASED GLUCOSE; Start 12/11/18 at 06:30 Glucagon (Glucagen) 1 mg Q15M PRN IM DECREASED GLUCOSE; Start 12/11/18 at 06:30 Glucose (Glutose) 15 gm Q15M PRN BUCCAL DECREASED GLUCOSE; Start 12/11/18 at 06:30 Propranolol HCl (Inderal) 60 mg Q6H PO Last administered on 12/15/18 08:19; Admin Dose 60 MG; Start 12/11/18 at 09:00 Docusate Sodium (Colace) 100 mg Q12 PO Last administered on 12/14/18at 20:43; Admin Dose 100 MG; Start 12/11/18 at 21:00 Insulin Glargine (Lantus) 13 units DAILY@0800 SC Last administered on 12/15/18 08:42; Admin Dose 13 UNITS; Start 12/13/18 at 08:00 Polyethylene Glycol (Miralax) 17 gm DAILY PO Last administered on 12/13/18at 10:35; Admin Dose 17 GM; Start 12/13/18 at 10:30 Metformin HCl (Glucophage) 500 mg BID WITH MEALS PO Last administered on 12/15/18 08:20; Admin Dose 500 MG; Start 12/13/18 at 13:00 Diagnostic Test (Pha) (Accu-Chek) 1 ea AC MEALS AND BEDTIME XX Last administered on 12/15/18 12:07; Admin Dose 1 EA; Start 12/13/18 at 17:25 Amoxicillin (Amoxicillin) 1,000 mg BID PO Last administered on 12/15/18 08:19; Admin Dose 1,000 MG; Start 12/14/18 at 09:30; Stop 12/28/18 at 09:29 Clarithromycin (Biaxin) 500 mg BID PO Last administered on 12/15/18 08:19; Admin Dose 500 MG; Start 12/14/18 at 09:30; Stop 12/28/18 at 09:29 Pantoprazole (Protonix Tab) 40 mg BID@06,18 PO Last administered on 12/15/18 06:29; Admin Dose 40 MG; Start 12/14/18 at 18:00; Stop 12/28/18 at 17:59 Insulin Aspart (Novolog Insulin Pen) 6 unit WITH MEALS SC Last administered on 12/15/18 12:21; Admin Dose 6 UNIT; Start 12/14/18 at 11:50 Methimazole (Tapazole) 30 mg Q12H PO ; Start 12/16/18 at 07:25 Methimazole (Tapazole) 20 mg ONCE ONCE PO ; Start 12/15/18 at 19:00; Stop 12/15/18 at 19:01 Assessment/Plan Assessment/Plan (Daily) IMP: 1. Febrile illness 2. 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 3. Hyperthyroidism RECS: 1. F/U sputum AFB x 3/MTB PRC 2. De-escalate abx TRACY MCKENZIE MD Dec 15, 2018 13:33
--- NOTE | 2018-12-15 16:24 | CONS ---
Assessment/Plan Assessment/Plan Hospital Course (Demo Recall) EMR reviewed. case dw [employer]. Care coordinated. Care directed. multiple additional viral serologies ordered now including chickengunya/dengue. Malaria smears added. please ensure a quant gold was done and status of cocci results. Please ensure [id number] done. Consider strongly a wbc scan. Consider MADDIE and Heme eval and Rheum eval as well. Consider checking MATI, ESR, CRP. Please ensure viral resp panel done. consider tumor markers. consider empiric tamiflu if fevers cont. Consultation Date/Type/Reason Admit Date/Time Dec 10, 2018 at 22:47 Initial Consult Date 12/11/18 Type of Consult iD Requesting Provider: YOLI ZAMORANO Date/Time of Note DATE: 12/15/18 TIME: 16:21 Exam/Review of Systems Exam Vitals Vital Signs Date Temp Pulse Resp B/P (MAP) Pulse Ox O2 O2 Flow FiO2 Time Delivery Rate 12/15/18 99.0 77 18 114/59 99 16:00 (77) 12/12/18 Room Air 20:06 Intake and Output 12/14/18 12/14/18 12/15/18 1515:00 23:00 07:00 IntakeIntake Total 750 ml 650 ml BalanceBalance 750 ml 650 ml Results Result Diagram: 12/14/1836 12/14/18 0736 Results 24hrs Laboratory Tests Test 12/14/18 17:45 12/14/18 20:42 12/15/18 05:55 12/15/18 08:18 Bedside Glucose 104 109 108 Thyroid Stimulating < 0.015 L Hormone (TSH) Free Thyroxine 6.82 H Thyroxine (T4) 19.9 H Total 1.94 H Triiodothyronine Test 12/15/18 12:08 Bedside Glucose 140 Medications Medication Current Medications IV Flush (NS 3 ml) 3 ml PER PROTOCOL IV ; Start 12/10/18 at 23:30 Ondansetron HCl (Zofran Inj) 4 mg Q6H PRN IV NAUSEA/VOMITING Last administered on 12/11/18at 03:36; Admin Dose 4 MG; Start 12/10/18 at 23:30 Acetaminophen (Tylenol Tab) 650 mg Q6H PRN PO .PAIN 1-3 OR TEMP Last administered on 12/15/18at 12:17; Admin Dose 650 MG; Start 12/10/18 at 23:30 Bisacodyl (Dulcolax) 5 mg DAILY PRN PO .CONSTIPATION Last administered on 12/13/18 08:01; Admin Dose 5 MG; Start 12/10/18 at 23:30 Diagnostic Test (Pha) (Accu-Chek) 1 ea 02 XX Last administered on 12/14/18at 02:52; Admin Dose 1 EA; Start 12/12/18 at 02:00 Insulin Aspart (Novolog Insulin Pen) NOVOLOG *MILD* ALGORITHM WITH MEALS BEDTIME SC Last administered on 12/14/18 13:01; Admin Dose 1 UNIT; Start 12/11/18 at 07:55 Miscellaneous Information 1 ea NOTE XX ; Start 12/11/18 at 06:30 Glucose (Glutose) 15 gm Q15M PRN PO DECREASED GLUCOSE; Start 12/11/18 at 06:30 Glucose (Glutose) 22.5 gm Q15M PRN PO DECREASED GLUCOSE; Start 12/11/18 at 06:30 Dextrose (D50w Syringe) 25 ml Q15M PRN IV DECREASED GLUCOSE; Start 12/11/18 at 06:30 Dextrose (D50w Syringe) 50 ml Q15M PRN IV DECREASED GLUCOSE; Start 12/11/18 at 06:30 Glucagon (Glucagen) 1 mg Q15M PRN IM DECREASED GLUCOSE; Start 12/11/18 at 06:30 Glucose (Glutose) 15 gm Q15M PRN BUCCAL DECREASED GLUCOSE; Start 12/11/18 at 06:30 Propranolol HCl (Inderal) 60 mg Q6H PO Last administered on 12/15/18at 16:04; Admin Dose 60 MG; Start 12/11/18 at 09:00 Docusate Sodium (Colace) 100 mg Q12 PO Last administered on 12/14/18at 20:43; Admin Dose 100 MG; Start 12/11/18 at 21:00 Insulin Glargine (Lantus) 13 units DAILY@0800 SC Last administered on 12/15/18 08:42; Admin Dose 13 UNITS; Start 12/13/18 at 08:00 Polyethylene Glycol (Miralax) 17 gm DAILY PO Last administered on 12/13/18 10:35; Admin Dose 17 GM; Start 12/13/18 at 10:30 Metformin HCl (Glucophage) 500 mg BID WITH MEALS PO Last administered on 12/15/18 08:20; Admin Dose 500 MG; Start 12/13/18 at 13:00 Diagnostic Test (Pha) (Accu-Chek) 1 ea AC MEALS AND BEDTIME XX Last administered on 12/15/18at 12:07; Admin Dose 1 EA; Start 12/13/18 at 17:25 Amoxicillin (Amoxicillin) 1,000 mg BID PO Last administered on 12/15/18 08:19; Admin Dose 1,000 MG; Start 12/14/18 at 09:30; Stop 12/28/18 at 09:29 Clarithromycin (Biaxin) 500 mg BID PO Last administered on 12/15/18 08:19; Admin Dose 500 MG; Start 12/14/18 at 09:30; Stop 12/28/18 at 09:29 Pantoprazole (Protonix Tab) 40 mg BID@06,18 PO Last administered on 12/15/18 06:29; Admin Dose 40 MG; Start 12/14/18 at 18:00; Stop 12/28/18 at 17:59 Insulin Aspart (Novolog Insulin Pen) 6 unit WITH MEALS SC Last administered on 12/15/18 12:21; Admin Dose 6 UNIT; Start 12/14/18 at 11:50 Methimazole (Tapazole) 30 mg Q12H PO ; Start 12/16/18 at 07:25 Methimazole (Tapazole) 20 mg ONCE ONCE PO ; Start 12/15/18 at 19:00; Stop 12/15/18 at 19:01 ANGEL CHAVEZ MD Dec 15, 2018 16:24
[2018-12-15] MEDS ORDERED: METHIMAZOLE 5 MG TAB PO ONE (19:00)
[2018-12-15] MEDS: ONDANSETRON 4 MG INJ IV PRN ×2 (20:16→20:18)
[2018-12-16] VITALS (9 sets, daily range): BP systolic 96–124; BP diastolic 44–65; PULSE 44–95; RESP 18–20
[2018-12-16] MEDS: ACETAMINOPHEN 325 MG TAB PO PRN ×3 (00:42→19:51)
[2018-12-16] MEDS: ACCU-CHEK XX SCH ×5 (02:00→21:00)
[2018-12-16] MEDS: PROPRANOLOL 20 MG TAB PO SCH ×4 (03:00→21:00)
[2018-12-16] MEDS: PANTOPRAZOLE (EC) 40 MG TAB PO SCH ×2 (05:32→17:33)
[2018-12-16] MEDS: INSULIN ASPART [NOVOLOG] 3 ML PEN SC SCH ×7 (07:55→21:00)
[2018-12-16] MEDS: metFORMIN 500 MG TAB PO SCH ×2 (08:59→17:33)
[2018-12-16] MEDS: DOCUSATE SODIUM 100 MG CAP PO SCH ×2 (08:59→21:09)
[2018-12-16] MEDS: METHIMAZOLE 5 MG TAB PO SCH ×2 (09:00→19:51)
[2018-12-16] MEDS: AMOXICILLIN 500 MG CAP PO SCH ×2 (09:01→21:09)
[2018-12-16] MEDS: POLYETHYLENE GLYCOL 17 GM PACKET PO SCH (09:01)
[2018-12-16] MEDS: CLARITHROMYCIN 500 MG TAB PO SCH ×2 (09:01→21:09)
[2018-12-16] MEDS: INSULIN GLARGINE [LANTus] (100 UNITS/ML) SYG SC SCH (09:08)
--- NOTE | 2018-12-16 11:01 | CONS ---
Assessment/Plan Assessment/Plan Hospital Course (Demo Recall) - Recurrent SIRS (fever and tachycardia); previous ID w/u and imaging were negative; - s/p Vancomycin and Cefepime (12/11/2018-12/14/18) - H. 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 pylori with amoxicillin, clarithromycin and PPI x 14 days (12/14/2018-) - F/u urine cx (NGTD), blood cultures (In process), sputum cx (patient is refusing to provide specimen) - Pending: resp virus panel, cocci, 1,3 [id number], Quant TB Gold, AFB smears x1 more; Malaria smear, CMV, EBV panel, WNV, HSV 1/2 by PCR, Chickengunya and Dengue virus serologies - Consider WBC scan - Consider MADDIE - Consider Heme eval and Rheum eval - Consider checking MATI, ESR, CRP, tumor markers - Additional recs will be made based on results of above; Consider empiric Tamiflu if fevers continue - Reinforce patient and family education regarding airborne precautions. Management d/w patient, RN of the patient, and with Dr. Tomas. Thank you. Consultation Date/Type/Reason Admit Date/Time Dec 10, 2018 at 22:47 Initial Consult Date 12/12/18 Type of Consult ID Requesting Provider: YOLI ZAMORANO Date/Time of Note DATE: 12/16/18 TIME: 10:49 24 HR Interval Summary Free Text/Dictation When I entered the room there was a very very small child coming out, I did not see protective equipment on the child. I mentioned to the family regarding airborne precautions and that it is unwise to bring young children into isolation rooms - especially without protective equipment in place. Their reply was that the child had a mask on before I arrived and that they already threw it out. I did not witness any of the visitors having protective equipment on through the window as I was applying mine, and patient's had her mask on her chin. I corrected her and she fixed this. I reinforced / re-educated the pat sarah and his regarding airborne precautions. The patient states he feels "hot." Having cough with white sputum expectoration. Denies sob/cp, n/v/d, dysuria, abd pain, pruritis, or rash. Per d/w the patient's RN, the patient has been refusing to provide any additional sputum specimens including the specimen that I ordered yesterday for perdomo culture d/t patient's fevers 102. Exam/Review of Systems Exam Vitals Vital Signs Date Temp Pulse Resp B/P (MAP) Pulse Ox O2 O2 Flow FiO2 Time Delivery Rate 12/16/18 99.4 93 20 124/65 100 08:25 (84) 12/12/18 Room Air 20:06 Intake and Output 12/15/18 12/15/18 12/16/18 1515:00 23:00 07:00 IntakeIntake Total 960 ml 350 ml OutputOutput Total 350 ml BalanceBalance 960 ml 0 ml Exam Constitutional: alert, oriented, well developed, other (sitting at the side of the bed) Psych: no complaints Head: normocephalic, atraumatic Eyes: nl conjunctiva, nl lids, nl sclera ENMT: nl external ears & nose, nl nasal mucosa & septum, mucosa pink and moist Neck: supple Respiratory: clear to auscultation (diminished bibasilarly), normal air movement, other (on room air) Cardiovascular: regular rate and rhythm, nl pulses Gastrointestinal: soft, non-tender Genitourinary - Male: other (no f/c) Musculoskeletal: nl extremities to inspection Extremities: normal pulses Neurological: nl mental status, nl speech, nl strength Skin: nl turgor; No rash or lesions Results Result Diagram: 12/14/18 0736 12/14/18 0736 Results 24hrs Laboratory Tests Test 12/15/18 12:08 12/15/18 17:42 12/15/18 19:09 12/15/18 19:19 Bedside Glucose 140 161 Monoscreen Negative Urine Color YELLOW Urine Clarity CLEAR Urine pH 6.0 Urine Specific 1.011 [place] Urine Ketones NEGATIVE Urine Nitrite NEGATIVE Urine Bilirubin NEGATIVE Urine Urobilinogen 1+ H Urine Leukocyte NEGATIVE Esterase Urine Hemoglobin NEGATIVE Urine Glucose NEGATIVE Urine Total Protein NEGATIVE Test 12/16/18 08:02 Bedside Glucose 106 Medications Medication Current Medications IV Flush (NS 3 ml) 3 ml PER PROTOCOL IV ; Start 12/10/18 at 23:30 Ondansetron HCl (Zofran Inj) 4 mg Q6H PRN IV NAUSEA/VOMITING Last administered on 12/15/18 20:18; Admin Dose 4 MG; Start 12/10/18 at 23:30 Acetaminophen (Tylenol Tab) 650 mg Q6H PRN PO .PAIN 1-3 OR TEMP Last administered on 12/16/18at 00:42; Admin Dose 650 MG; Start 12/10/18 at 23:30 Bisacodyl (Dulcolax) 5 mg DAILY PRN PO .CONSTIPATION Last administered on 12/13/18 08:01; Admin Dose 5 MG; Start 12/10/18 at 23:30 Diagnostic Test (Pha) (Accu-Chek) 1 ea 02 XX Last administered on 12/14/18at 02:52; Admin Dose 1 EA; Start 12/12/18 at 02:00 Insulin Aspart (Novolog Insulin Pen) NOVOLOG *MILD* ALGORITHM WITH MEALS BEDTIME SC Last administered on 12/14/18 13:01; Admin Dose 1 UNIT; Start 12/11/18 at 07:55 Miscellaneous Information 1 ea NOTE XX ; Start 12/11/18 at 06:30 Glucose (Glutose) 15 gm Q15M PRN PO DECREASED GLUCOSE; Start 12/11/18 at 06:30 Glucose (Glutose) 22.5 gm Q15M PRN PO DECREASED GLUCOSE; Start 12/11/18 at 06:30 Dextrose (D50w Syringe) 25 ml Q15M PRN IV DECREASED GLUCOSE; Start 12/11/18 at 06:30 Dextrose (D50w Syringe) 50 ml Q15M PRN IV DECREASED GLUCOSE; Start 12/11/18 at 06:30 Glucagon (Glucagen) 1 mg Q15M PRN IM DECREASED GLUCOSE; Start 12/11/18 at 06:30 Glucose (Glutose) 15 gm Q15M PRN BUCCAL DECREASED GLUCOSE; Start 12/11/18 at 06:30 Propranolol HCl (Inderal) 60 mg Q6H PO Last administered on 12/16/18at 09:01; Admin Dose 60 MG; Start 12/11/18 at 09:00 Docusate Sodium (Colace) 100 mg Q12 PO Last administered on 12/16/18 08:59; Admin Dose 100 MG; Start 12/11/18 at 21:00 Insulin Glargine (Lantus) 13 units DAILY@0800 SC Last administered on 12/16/18 09:08; Admin Dose 13 UNITS; Start 12/13/18 at 08:00 Polyethylene Glycol (Miralax) 17 gm DAILY PO Last administered on 12/16/18 09:01; Admin Dose 17 GM; Start 12/13/18 at 10:30 Metformin HCl (Glucophage) 500 mg BID WITH MEALS PO Last administered on 08:59; Admin Dose 500 MG; Start 12/13/18 at 13:00 Diagnostic Test (Pha) (Accu-Chek) 1 ea AC MEALS AND BEDTIME XX Last administered on 12/15/18 17:46; Admin Dose 1 EA; Start 12/13/18 at 17:25 Amoxicillin (Amoxicillin) 1,000 mg BID PO Last administered on 12/16/18 09:01; Admin Dose 1,000 MG; Start 12/14/18 at 09:30; Stop 12/28/18 at 09:29 Clarithromycin (Biaxin) 500 mg BID PO Last administered on 12/16/18 09:01; Admin Dose 500 MG; Start 12/14/18 at 09:30; Stop 12/28/18 at 09:29 Pantoprazole (Protonix Tab) 40 mg BID@06,18 PO Last administered on 12/16/18 05:32; Admin Dose 40 MG; Start 12/14/18 at 18:00; Stop 12/28/18 at 17:59 Insulin Aspart (Novolog Insulin Pen) 6 unit WITH MEALS SC Last administered on 12/15/18 12:21; Admin Dose 6 UNIT; Start 12/14/18 at 11:50 Methimazole (Tapazole) 30 mg Q12H PO Last administered on 12/16/18 09:00; Admin Dose 30 MG; Start 12/16/18 at 07:25 BAL GODOY NP Dec 16, 2018 11:01
--- NOTE | 2018-12-16 11:22 | PN ---
DATE: 12/13/2018 SUBJECTIVE: The patient feels well, no further fever, concerned about constipation. PHYSICAL EXAMINATION VITAL SIGNS: Temperature 98.3, pulse 67, respirations 18, blood pressure 136/65, saturations 99% on room air. GENERAL: Alert, oriented, no distress. HEENT: Head normocephalic. Pupils equal and reactive. Mucous membranes are moist. NECK: Supple. CHEST: Clear. CARDIOVASCULAR: S1 and S2, no murmurs. ABDOMEN: Soft, nontender, normoactive bowel sounds. EXTREMITIES: Lower extremities, no edema. SKIN: No rashes. LABORATORY DATA: At this time, we have 1 sample of his sputum in the lab. Final report is still pen ding. A second sample has been collected and is at the bedside. ASSESSMENT: 1. Sepsis versus systemic inflammatory response syndrome with still unclear source. 2. Acute respiratory tract infection, likely viral. 3. Chronic hyperthyroidism that was uncontrolled initially on admission, now with improved heart rat e. 4. Diabetes mellitus with improving control. 5. Poor appetite and weight loss. PLAN: The plan is at this time to complete a TB rule, though patient, per pulmonary, is very unlikel y to have TB, and the recommendation is for treatment for latent TB, per pulmonary. ID, however, is on the case, also following. We defer to their recommendations. Will also give medications for cons tipation and continue to defer to endocrinology for management of his thyroid pathology. The patient remains on isolation for now. Will await ID and pulmonary clearance prior to discharge. Dictated By: YOLI ZAMORANO MD BA/HELENA Conf#: [id number] DID#: [id number] CC: LYNDON LÓPEZ MD;*EndCC*
--- NOTE | 2018-12-16 18:58 | PN ---
Date/Time of Note Date/Time of Note DATE: 12/16/18 TIME: 10:51 Assessment/Plan VTE Prophylaxis Risk score (from Ns)>0 risk: 3 SCD applied (from Ns): Yes Pharmacological prophylaxis: NA/contraindicated Pharm contraindication: low risk/ambulating Lines/Catheters IV [facility] [place] [facility] Urinary Cath still in place: No Assessment/Plan Hospital Course S: still having fevers O: General: A&O x3, answering questions appropriately, no distress, HEENT: NC/ AT. PERRL. EOM intact Neck: supple CVS: S1, S2, RRR. no murmurs. no pain on chest wall palpation Lungs: CTA b/l. no wheezing or rhonchi Abd: soft, nontender, +BS Ext: moving all extremities skin: no rashes assessment and plan: #1 sepsis vs SIRS: -source is unclear, -unlikely to be 2/2 TB -ID recommends WBC scan, will order 2. acute RTI -?viral, no significant cough per family -hx of + quantiferon gold, TB r/o ongoing sputum X1 negative -CT chest from last admission reviewed 3. Chronic hyperthyroidism: still uncontrolled -continue methimazole and propranolol, s/p loading PTU - appreciate endo consult -thyroid USS showed diffusely enlarged thyroid gland without nodule #3 Diabetes mellitus: improved inhouse control -monitor levels and titrate meds as indicated -a1C 6.1 -appreciate endo review #4. Poor apetite and weight loss -likely related to #3, per family patient had been well controlled for a long time and then he fell off his meds and has just recently been put back on them. 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, unlikely to be active TB Dispo: -d/w ID whether to initiate treatment for latent TB and d/c isolation -f/u wbc scan and final sputum assay -continue supportive care Result Diagram: 12/14/18 0736 12/14/18 0736 Results 24hrs Laboratory Tests Test 12/15/18 19:09 12/15/18 19:19 12/16/18 08:02 12/16/18 12:08 Monoscreen Negative Urine Color YELLOW Urine Clarity CLEAR Urine pH 6.0 Urine Specific 1.011 [place] Urine Ketones NEGATIVE Urine Nitrite NEGATIVE Urine Bilirubin NEGATIVE Urine Urobilinogen 1+ H Urine Leukocyte NEGATIVE Esterase Urine Hemoglobin NEGATIVE Urine Glucose NEGATIVE Urine Total Protein NEGATIVE Bedside Glucose 106 108 Test 12/16/18 17:28 Bedside Glucose 138 Exam/Review of Systems Exam Vitals Vital Signs Date Temp Pulse Resp B/P (MAP) Pulse Ox O2 O2 Flow FiO2 Time Delivery Rate 12/16/18 83 16:59 12/16/18 98.8 20 108/59 100 15:13 (75) 12/12/18 Room Air 20:06 Intake and Output 12/15/18 12/15/18 12/16/18 1414:59 22:59 06:59 IntakeIntake Total 960 ml 350 ml OutputOutput Total 350 ml BalanceBalance 960 ml 0 ml Results Results 24hrs Laboratory Tests Test 12/15/18 19:09 12/15/18 19:19 12/16/18 08:02 12/16/18 12:08 Monoscreen Negative Urine Color YELLOW Urine Clarity CLEAR Urine pH 6.0 Urine Specific 1.011 [place] Urine Ketones NEGATIVE Urine Nitrite NEGATIVE Urine Bilirubin NEGATIVE Urine Urobilinogen 1+ H Urine Leukocyte NEGATIVE Esterase Urine Hemoglobin NEGATIVE Urine Glucose NEGATIVE Urine Total Protein NEGATIVE Bedside Glucose 106 108 Test 12/16/18 17:28 Bedside Glucose 138 Medications Medication Current Medications IV Flush (NS 3 ml) 3 ml PER PROTOCOL IV ; Start 12/10/18 at 23:30 Ondansetron HCl (Zofran Inj) 4 mg Q6H PRN IV NAUSEA/VOMITING Last administered on 12/15/18at 20:18; Admin Dose 4 MG; Start 12/10/18 at 23:30 Acetaminophen (Tylenol Tab) 650 mg Q6H PRN PO .PAIN 1-3 OR TEMP Last administered on 12/16/18at 12:09; Admin Dose 650 MG; Start 12/10/18 at 23:30 Bisacodyl (Dulcolax) 5 mg DAILY PRN PO .CONSTIPATION Last administered on 12/13/18at 08:01; Admin Dose 5 MG; Start 12/10/18 at 23:30 Diagnostic Test (Pha) (Accu-Chek) 1 ea 02 XX Last administered on 12/14/18at 02:52; Admin Dose 1 EA; Start 12/12/18 at 02:00 Insulin Aspart (Novolog Insulin Pen) NOVOLOG *MILD* ALGORITHM WITH MEALS BEDTIME SC Last administered on 12/14/18 13:01; Admin Dose 1 UNIT; Start 12/11/18 at 07:55 Miscellaneous Information 1 ea NOTE XX ; Start 12/11/18 at 06:30 Glucose (Glutose) 15 gm Q15M PRN PO DECREASED GLUCOSE; Start 12/11/18 at 06:30 Glucose (Glutose) 22.5 gm Q15M PRN PO DECREASED GLUCOSE; Start 12/11/18 at 06:30 Dextrose (D50w Syringe) 25 ml Q15M PRN IV DECREASED GLUCOSE; Start 12/11/18 at 06:30 Dextrose (D50w Syringe) 50 ml Q15M PRN IV DECREASED GLUCOSE; Start 12/11/18 at 06:30 Glucagon (Glucagen) 1 mg Q15M PRN IM DECREASED GLUCOSE; Start 12/11/18 at 06:30 Glucose (Glutose) 15 gm Q15M PRN BUCCAL DECREASED GLUCOSE; Start 12/11/18 at 06:30 Propranolol HCl (Inderal) 60 mg Q6H PO Last administered on 12/16/18 09:01; Admin Dose 60 MG; Start 12/11/18 at 09:00 Docusate Sodium (Colace) 100 mg Q12 PO Last administered on 12/16/18 08:59; Admin Dose 100 MG; Start 12/11/18 at 21:00 Insulin Glargine (Lantus) 13 units DAILY@0800 SC Last administered on 12/16/18 09:08; Admin Dose 13 UNITS; Start 12/13/18 at 08:00 Polyethylene Glycol (Miralax) 17 gm DAILY PO Last administered on 12/16/18 09:01; Admin Dose 17 GM; Start 12/13/18 at 10:30 Metformin HCl (Glucophage) 500 mg BID WITH MEALS PO Last administered on 12/16/18 17:33; Admin Dose 500 MG; Start 12/13/18 at 13:00 Diagnostic Test (Pha) (Accu-Chek) 1 ea AC MEALS AND BEDTIME XX Last administered on 12/15/18at 17:46; Admin Dose 1 EA; Start 12/13/18 at 17:25 Amoxicillin (Amoxicillin) 1,000 mg BID PO Last administered on 12/16/18 09:01; Admin Dose 1,000 MG; Start 12/14/18 at 09:30; Stop 12/28/18 at 09:29 Clarithromycin (Biaxin) 500 mg BID PO Last administered on 12/16/18 09:01; Admin Dose 500 MG; Start 12/14/18 at 09:30; Stop 12/28/18 at 09:29 Pantoprazole (Protonix Tab) 40 mg BID@,18 PO Last administered on 12/16/18at 17:33; Admin Dose 40 MG; Start 12/14/18 at 18:00; Stop 12/28/18 at 17:59 Insulin Aspart (Novolog Insulin Pen) 6 unit WITH MEALS SC Last administered on 12/15/18 12:21; Admin Dose 6 UNIT; Start 12/14/18 at 11:50 Methimazole (Tapazole) 30 mg Q12H PO Last administered on 12/16/18 09:00; Admin Dose 30 MG; Start 12/16/18 at 07:25 YOLI ZAMORANO Dec 16, 2018 18:58
[2018-12-17] VITALS (9 sets, daily range): BP systolic 93–115; BP diastolic 56–67; PULSE 84–95; RESP 16–20
[2018-12-17] MEDS: ACCU-CHEK XX SCH ×5 (02:00→21:04)
[2018-12-17] MEDS: PROPRANOLOL 20 MG TAB PO SCH ×4 (03:47→21:03)
[2018-12-17] MEDS: PANTOPRAZOLE (EC) 40 MG TAB PO SCH ×2 (05:59→17:38)
[2018-12-17] MEDS: metFORMIN 500 MG TAB PO SCH ×2 (07:31→17:38)
[2018-12-17] MEDS: METHIMAZOLE 5 MG TAB PO SCH ×2 (07:31→21:46)
[2018-12-17] MEDS: INSULIN ASPART [NOVOLOG] 3 ML PEN SC SCH ×7 (07:31→21:00)
[2018-12-17] MEDS: INSULIN GLARGINE [LANTus] (100 UNITS/ML) SYG SC SCH (08:27)
[2018-12-17] MEDS: CLARITHROMYCIN 500 MG TAB PO SCH ×2 (10:04→21:04)
[2018-12-17] MEDS: AMOXICILLIN 500 MG CAP PO SCH ×2 (10:04→21:04)
[2018-12-17] MEDS: POLYETHYLENE GLYCOL 17 GM PACKET PO SCH (10:05)
[2018-12-17] MEDS: DOCUSATE SODIUM 100 MG CAP PO SCH ×2 (10:05→21:04)
--- NOTE | 2018-12-17 12:28 | PN ---
Date/Time of Note Date/Time of Note DATE: 12/17/18 TIME: 12:25 Assessment/Plan VTE Prophylaxis Risk score (from Nsg)>0 risk: 3 SCD applied (from Nsg): Yes Pharmacological prophylaxis: LMWH Lines/Catheters IV Catheter Type (from Nrs): Saline Lock Urinary Cath still in place: No Assessment/Plan Hospital Course S: no more fever, wbc scan pending O: General: A&O x3, answering questions appropriately, no distress, HEENT: NC/ AT. PERRL. EOM intact Neck: supple CVS: S1, S2, RRR. no murmurs. no pain on chest wall palpation Lungs: CTA b/l. no wheezing or rhonchi Abd: soft, nontender, +BS Ext: moving all extremities skin: no rashes assessment and plan: #1 sepsis vs SIRS: -source is unclear, -unlikely to be 2/2 TB -ID recommends WBC scan, still pending 2. acute RTI -sputum cultures growing gram negative dayron, f/u final ID -hx of + quantiferon gold, TB r/o ongoing sputum X1 negative -CT chest from last admission reviewed 3. Chronic hyperthyroidism: still uncontrolled -continue methimazole and propranolol, s/p loading PTU - appreciate endo consult -thyroid USS showed diffusely enlarged thyroid gland without nodule #3 Diabetes mellitus: improved inhouse control -monitor levels and titrate meds as indicated -a1C 6.1 -appreciate endo review #4. Poor appetite and weight loss -likely related to #3, per family patient had been well controlled for a long time and then he fell off his meds and has just recently been put back on them. 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, unlikely to be active TB Dispo: -d/w ID whether to initiate treatment for latent TB and d/c isolation -f/u wbc scan and final sputum assay -continue supportive care -PT eval Result Diagram: 12/14/1873512/14/1836 Results 24hrs Laboratory Tests Test 12/16/18 17:28 12/16/18 21:17 12/17/18 07:30 12/17/18 12:18 Bedside Glucose 138 139 97 82 Test 12/17/18 12:24 Lab Scanned Report REFERENCE LAB Exam/Review of Systems Exam Vitals Vital Signs Date Temp Pulse Resp B/P (MAP) Pulse Ox O2 O2 Flow FiO2 Time Delivery Rate 12/17/18 99.0 84 20 93/57 (69) 98 11:21 Intake and Output 12/16/18 12/16/18 12/17/18 1515:00 23:00 07:00 IntakeIntake Total 420 ml 400 ml BalanceBalance 420 ml 400 ml Results Results 24hrs Laboratory Tests Test 12/16/18 17:28 12/16/18 21:17 12/17/18 07:30 12/17/18 12:18 Bedside Glucose 138 139 97 82 Test 12/17/18 12:24 Lab Scanned Report REFERENCE LAB Medications Medication Current Medications IV Flush (NS 3 ml) 3 ml PER PROTOCOL IV ; Start 12/10/18 at 23:30 Ondansetron HCl (Zofran Inj) 4 mg Q6H PRN IV NAUSEA/VOMITING Last administered on 12/15/18 20:18; Admin Dose 4 MG; Start 12/10/18 at 23:30 Acetaminophen (Tylenol Tab) 650 mg Q6H PRN PO .PAIN 1-3 OR TEMP Last administered on 12/16/18 19:51; Admin Dose 650 MG; Start 12/10/18 at 23:30 Bisacodyl (Dulcolax) 5 mg DAILY PRN PO .CONSTIPATION Last administered on 12/13/18 08:01; Admin Dose 5 MG; Start 12/10/18 at 23:30 Diagnostic Test (Pha) (Accu-Chek) 1 ea 02 XX Last administered on 12/14/18at 02:52; Admin Dose 1 EA; Start 12/12/18 at 02:00 Insulin Aspart (Novolog Insulin Pen) NOVOLOG *MILD* ALGORITHM WITH MEALS BEDTIME SC Last administered on 12/14/18 13:01; Admin Dose 1 UNIT; Start 12/11/18 at 07:55 Miscellaneous Information 1 ea NOTE XX ; Start 12/11/18 at 06:30 Glucose (Glutose) 15 gm Q15M PRN PO DECREASED GLUCOSE; Start 12/11/18 at 06:30 Glucose (Glutose) 22.5 gm Q15M PRN PO DECREASED GLUCOSE; Start 12/11/18 at 06:30 Dextrose (D50w Syringe) 25 ml Q15M PRN IV DECREASED GLUCOSE; Start 12/11/18 at 06:30 Dextrose (D50w Syringe) 50 ml Q15M PRN IV DECREASED GLUCOSE; Start 12/11/18 at 06:30 Glucagon (Glucagen) 1 mg Q15M PRN IM DECREASED GLUCOSE; Start 12/11/18 at 06:30 Glucose (Glutose) 15 gm Q15M PRN BUCCAL DECREASED GLUCOSE; Start 12/11/18 at 06:30 Propranolol HCl (Inderal) 60 mg Q6H PO Last administered on 12/17/18 10:04; Admin Dose 60 MG; Start 12/11/18 at 09:00 Docusate Sodium (Colace) 100 mg Q12 PO Last administered on 12/17/18 10:05; Admin Dose 100 MG; Start 12/11/18 at 21:00 Insulin Glargine (Lantus) 13 units DAILY@0800 SC Last administered on 12/17/18 08:27; Admin Dose 13 UNITS; Start 12/13/18 at 08:00 Polyethylene Glycol (Miralax) 17 gm DAILY PO Last administered on 12/17/18 10:05; Admin Dose 17 GM; Start 12/13/18 at 10:30 Metformin HCl (Glucophage) 500 mg BID WITH MEALS PO Last administered on 12/17/18 07:31; Admin Dose 500 MG; Start 12/13/18 at 13:00 Diagnostic Test (Pha) (Accu-Chek) 1 ea AC MEALS AND BEDTIME XX Last administe red on 12/17/18 12:19; Admin Dose 1 EA; Start 12/13/18 at 17:25 Amoxicillin (Amoxicillin) 1,000 mg BID PO Last administered on 12/17/18 10:04; Admin Dose 1,000 MG; Start 12/14/18 at 09:30; Stop 12/28/18 at 09:29 Clarithromycin (Biaxin) 500 mg BID PO Last administered on 12/17/18 10:04; Admin Dose 500 MG; Start 12/14/18 at 09:30; Stop 12/28/18 at 09:29 Pantoprazole (Protonix Tab) 40 mg BID@18 PO Last administered on 12/17/18 05:59; Admin Dose 40 MG; Start 12/14/18 at 18:00; Stop 12/28/18 at 17:59 Insulin Aspart (Novolog Insulin Pen) 6 unit WITH MEALS SC Last administered on 12/17/18at 12:22; Admin Dose 6 UNIT; Start 12/14/18 at 11:50 Methimazole (Tapazole) 30 mg Q12H PO Last administered on 12/17/18at 07:31; Admin Dose 30 MG; Start 12/16/18 at 07:25 YOLI ZAMORANO Dec 17, 2018 12:28
--- NOTE | 2018-12-17 12:41 | CONS ---
Consult Date/Type/Reason Admit Date/Time Dec 10, 2018 at 22:47 Initial Consult Date 12/12/18 Type of Consult Pulmonary Requesting Provider: YOLI ZAMORANO Date/Time of Note DATE: 12/17/18 TIME: 12:40 Subjective Well-nourished well-developed gentleman comfortable at rest no acute distress remains afebrile Objective Vital Signs Date Temp Pulse Resp B/P (MAP) Pulse Ox O2 O2 Flow FiO2 Time Delivery Rate 12/17/18 99.0 84 20 93/57 (69) 98 11:21 Intake and Output 12/16/18 12/16/18 12/17/18 1515:00 23:00 07:00 IntakeIntake Total 420 ml 400 ml BalanceBalance 420 ml 400 ml Exam GENERAL: VITAL SIGNS: per chart NECK: Supple. No JVD or lymphadenopathy. CARDIAC EXAM: S1, S2. No added sounds or murmurs. CHEST: clear bilaterally, No added sounds, rales or wheezes ABDOMEN: Soft, nontender. No guarding or rebound. EXTREMITIES: No cyanosis, clubbing or edema. NEUROLOGIC: Generalized weakness. No focal deficits. Results/Medications Result Diagram: 12/14/1873512/14/1836 Results 24 hrs Laboratory Tests Test 12/16/18 17:28 12/16/18 21:17 12/17/18 07:30 12/17/18 12:18 Bedside Glucose 138 139 97 82 Test 12/17/18 12:24 Lab Scanned Report REFERENCE LAB Medications Current Medications IV Flush (NS 3 ml) 3 ml PER PROTOCOL IV ; Start 12/10/18 at 23:30 Ondansetron HCl (Zofran Inj) 4 mg Q6H PRN IV NAUSEA/VOMITING Last administered on 12/15/18at 20:18; Admin Dose 4 MG; Start 12/10/18 at 23:30 Acetaminophen (Tylenol Tab) 650 mg Q6H PRN PO .PAIN 1-3 OR TEMP Last administered on 12/16/18at 19:51; Admin Dose 650 MG; Start 12/10/18 at 23:30 Bisacodyl (Dulcolax) 5 mg DAILY PRN PO .CONSTIPATION Last administered on 12/13/18 08:01; Admin Dose 5 MG; Start 12/10/18 at 23:30 Diagnostic Test (Pha) (Accu-Chek) 1 ea 02 XX Last administered on 12/14/18at 02:52; Admin Dose 1 EA; Start 12/12/18 at 02:00 Insulin Aspart (Novolog Insulin Pen) NOVOLOG *MILD* ALGORITHM WITH MEALS BEDTIME SC Last administered on 12/14/18at 13:01; Admin Dose 1 UNIT; Start 12/11/18 at 07:55 Miscellaneous Information 1 ea NOTE XX ; Start 12/11/18 at 06:30 Glucose (Glutose) 15 gm Q15M PRN PO DECREASED GLUCOSE; Start 12/11/18 at 06:30 Glucose (Glutose) 22.5 gm Q15M PRN PO DECREASED GLUCOSE; Start 12/11/18 at 06:30 Dextrose (D50w Syringe) 25 ml Q15M PRN IV DECREASED GLUCOSE; Start 12/11/18 at 06:30 Dextrose (D50w Syringe) 50 ml Q15M PRN IV DECREASED GLUCOSE; Start 12/11/18 at 06:30 Glucagon (Glucagen) 1 mg Q15M PRN IM DECREASED GLUCOSE; Start 12/11/18 at 06:30 Glucose (Glutose) 15 gm Q15M PRN BUCCAL DECREASED GLUCOSE; Start 12/11/18 at 06:30 Propranolol HCl (Inderal) 60 mg Q6H PO Last administered on 12/17/18at 10:04; Admin Dose 60 MG; Start 12/11/18 at 09:00 Docusate Sodium (Colace) 100 mg Q12 PO Last administered on 12/17/18at 10:05; Admin Dose 100 MG; Start 12/11/18 at 21:00 Insulin Glargine (Lantus) 13 units DAILY@0800 SC Last administered on 12/17/18 08:27; Admin Dose 13 UNITS; Start 12/13/18 at 08:00 Polyethylene Glycol (Miralax) 17 gm DAILY PO Last administered on 12/17/18 10:05; Admin Dose 17 GM; Start 12/13/18 at 10:30 Metformin HCl (Glucophage) 500 mg BID WITH MEALS PO Last administered on 12/17/18 07:31; Admin Dose 500 MG; Start 12/13/18 at 13:00 Diagnostic Test (Pha) (Accu-Chek) 1 ea AC MEALS AND BEDTIME XX Last administered on 12/17/18 12:19; Admin Dose 1 EA; Start 12/13/18 at 17:25 Amoxicillin (Amoxicillin) 1,000 mg BID PO Last administered on 12/17/18 10:04; Admin Dose 1,000 MG; Start 12/14/18 at 09:30; Stop 12/28/18 at 09:29 Clarithromycin (Biaxin) 500 mg BID PO Last administered on 12/17/18 10:04; Admin Dose 500 MG; Start 12/14/18 at 09:30; Stop 12/28/18 at 09:29 Pantoprazole (Protonix Tab) 40 mg BID@06,18 PO Last administered on 12/17/18 05:59; Admin Dose 40 MG; Start 12/14/18 at 18:00; Stop 12/28/18 at 17:59 Insulin Aspart (Novolog Insulin Pen) 6 unit WITH MEALS SC Last administered on 12/17/18 12:22; Admin Dose 6 UNIT; Start 12/14/18 at 11:50 Methimazole (Tapazole) 30 mg Q12H PO Last administered on 12/17/18 07:31; Admin Dose 30 MG; Start 12/16/18 at 07:25 Assessment/Plan Hospital Course (Demo Recall) IMPRESSION AND PLAN: 1. 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 2. History of Graves' disease. Recommendations 1. Consider DC planning after WBC scan 2. Steroid and antibiotic taper 3. Follow-up with primary care physician SALOME LEWIS MD, [facility] Dec 17, 2018 12:41
--- NOTE | 2018-12-17 13:48 | CONS ---
Assessment/Plan Assessment/Plan Problems: (1) Graves' disease with exophthalmos Status: Chronic Comment: Stable at this time. Patient's on steroids which will may play havoc with his sugars temporarily but will help with his exophthalmos (2) Hyperthyroidism Status: Acute Comment: He is requiring actually fairly high dose of antithyroid medications to get this worked out. This is in no way shape or form the highest dosage of ever used but it is is above average (3) Diabetes mellitus type 2 in nonobese Status: Chronic Comment: Working on bringing this under control Consultation Date/Type/Reason Admit Date/Time Dec 10, 2018 at 22:47 Initial Consult Date 12/12/18 Type of Consult Endocrinology Reason for Consultation Hyperthyroidism-Graves' disease Requesting Provider: YOLI ZAMORANO Date/Time of Note DATE: 12/17/18 TIME: 13:46 24 HR Interval Summary Free Text/Dictation Patient's daughter is not present to assist with translation Exam/Review of Systems Exam Vitals Vital Signs Date Temp Pulse Resp B/P (MAP) Pulse Ox O2 O2 Flow FiO2 Time Delivery Rate 12/17/18 99.0 84 20 93/57 (69) 98 11:21 Intake and Output 12/16/18 12/16/18 12/17/18 1515:00 23:00 07:00 IntakeIntake Total 420 ml 400 ml BalanceBalance 420 ml 400 ml Exam No change in exam Extremities: other (Fine high-frequency tremor) Results Result Diagram: 12/14/18 0736 12/14/18 0736 Results 24hrs Laboratory Tests Test 12/16/18 17:28 12/16/18 21:17 12/17/18 07:30 12/17/18 12:18 Bedside Glucose 138 139 97 82 Test 12/17/18 12:24 Lab Scanned Report REFERENCE LAB Medications Medication Current Medications IV Flush (NS 3 ml) 3 ml PER PROTOCOL IV ; Start 12/10/18 at 23:30 Ondansetron HCl (Zofran Inj) 4 mg Q6H PRN IV NAUSEA/VOMITING Last administered on 12/15/18at 20:18; Admin Dose 4 MG; Start 12/10/18 at 23:30 Acetaminophen (Tylenol Tab) 650 mg Q6H PRN PO .PAIN 1-3 OR TEMP Last administered on 12/16/18at 19:51; Admin Dose 650 MG; Start 12/10/18 at 23:30 Bisacodyl (Dulcolax) 5 mg DAILY PRN PO .CONSTIPATION Last administered on 12/13/18 08:01; Admin Dose 5 MG; Start 12/10/18 at 23:30 Diagnostic Test (Pha) (Accu-Chek) 1 ea 02 XX Last administered on 12/14/18 02:52; Admin Dose 1 EA; Start 12/12/18 at 02:00 Insulin Aspart (Novolog Insulin Pen) NOVOLOG *MILD* ALGORITHM WITH MEALS BEDTIME SC Last administered on 12/14/18 13:01; Admin Dose 1 UNIT; Start 12/11/18 at 07:55 Miscellaneous Information 1 ea NOTE XX ; Start 12/11/18 at 06:30 Glucose (Glutose) 15 gm Q15M PRN PO DECREASED GLUCOSE; Start 12/11/18 at 06:30 Glucose (Glutose) 22.5 gm Q15M PRN PO DECREASED GLUCOSE; Start 12/11/18 at 06:30 Dextrose (D50w Syringe) 25 ml Q15M PRN IV DECREASED GLUCOSE; Start 12/11/18 at 06:30 Dextrose (D50w Syringe) 50 ml Q15M PRN IV DECREASED GLUCOSE; Start 12/11/18 at 06:30 Glucagon (Glucagen) 1 mg Q15M PRN IM DECREASED GLUCOSE; Start 12/11/18 at 06:30 Glucose (Glutose) 15 gm Q15M PRN BUCCAL DECREASED GLUCOSE; Start 12/11/18 at 06:30 Propranolol HCl (Inderal) 60 mg Q6H PO Last administered on 12/17/18at 10:04; Admin Dose 60 MG; Start 12/11/18 at 09:00 Docusate Sodium (Colace) 100 mg Q12 PO Last administered on 12/17/18 10:05; Admin Dose 100 MG; Start 12/11/18 at 21:00 Insulin Glargine (Lantus) 13 units DAILY@0800 SC Last administered on 12/17/18 08:27; Admin Dose 13 UNITS; Start 12/13/18 at 08:00 Polyethylene Glycol (Miralax) 17 gm DAILY PO Last administered on 12/17/18 10:05; Admin Dose 17 GM; Start 12/13/18 at 10:30 Metformin HCl (Glucophage) 500 mg BID WITH MEALS PO Last administered on 12/17/18 07:31; Admin Dose 500 MG; Start 12/13/18 at 13:00 Diagnostic Test (Pha) (Accu-Chek) 1 ea AC MEALS AND BEDTIME XX Last administ ered on 12/17/18 12:19; Admin Dose 1 EA; Start 12/13/18 at 17:25 Amoxicillin (Amoxicillin) 1,000 mg BID PO Last administered on 12/17/18 10:04; Admin Dose 1,000 MG; Start 12/14/18 at 09:30; Stop 12/28/18 at 09:29 Clarithromycin (Biaxin) 500 mg BID PO Last administered on 12/17/18 10:04; Admin Dose 500 MG; Start 12/14/18 at 09:30; Stop 12/28/18 at 09:29 Pantoprazole (Protonix Tab) 40 mg BID@06,18 PO Last administered on 12/17/18 05:59; Admin Dose 40 MG; Start 12/14/18 at 18:00; Stop 12/28/18 at 17:59 Insulin Aspart (Novolog Insulin Pen) 6 unit WITH MEALS SC Last administered on 12/17/18 12:22; Admin Dose 6 UNIT; Start 12/14/18 at 11:50 Methimazole (Tapazole) 30 mg Q12H PO Last administered on 12/17/18 07:31; Admin Dose 30 MG; Start 12/16/18 at 07:25 ANA GARCIA MD Dec 17, 2018 13:48
[2018-12-17] MEDS ORDERED: PROPYLTHIOURACIL 50 MG TAB PO ONE (14:00)
--- NOTE | 2018-12-17 14:23 | CONS ---
Assessment/Plan Assessment/Plan Hospital Course (Demo Recall) - Recurrent SIRS (fever and tachycardia); previous ID w/u and imaging were negative; - s/p Vancomycin and Cefepime (12/11/2018-12/14/18) - H. pylori Ag in stool + on 11/26/2018 - Positive Quantiferon TB gold on 11/25/2018, with no evidence of active disease - Graves disease - Hyperthyroidism - on Tapazole - T2DM - Hgb A1c 6.1% - The following is negative: HIV, HIV viral load, procalc <0.10 on 12/12/18, Cryto AG, Monosmear, malaria, AFB on 12/11/2018 and 12/13/2018 Recommendations: - Continue treatment for H. pylori with amoxicillin, clarithromycin and PPI x 14 days (12/14/2018-) - F/u blood cultures (NGTD), sputum cx (GNR) - Pending: resp virus panel, cocci, 1,3 Apqs-Q-egyhcb, Quant TB Gold, AFB smears x1 more; CMV, EBV panel, WNV, HSV 1/2 by PCR, [place] and [place] virus serologies - F/u WBC scan (being done tomorrow) - Consider MADDIE - Consider Heme eval and Rheum eval - Consider checking MATI, ESR, CRP, tumor markers - Additional recs will be made based on results of above; Consider empiric Tamiflu if fevers continue - Reinforce patient and family education regarding airborne precautions. Management d/w patient (?son at bedside), ADDISON Bernabe, and with Dr. Tomas Consultation Date/Type/Reason Admit Date/Time Dec 10, 2018 at 22:47 Initial Consult Date 12/12/18 Type of Consult Infectious Disease Requesting Provider: YOLI ZAMORANO Date/Time of Note DATE: 12/17/18 TIME: 14:23 24 HR Interval Summary Free Text/Dictation C/o mild SOB and productive cough. RN attempting to collect 3rd AFB today. Sputum cx (ordered by Primary team) is growing GNR. Recent CXR negative. Denies pain, n/v/d, dysuria. Pt was given IV contrast and will be going for WBC scan tomorrow per d/w nursing. Exam/Review of Systems Exam Vitals Vital Signs Date Temp Pulse Resp B/P (MAP) Pulse Ox O2 O2 Flow FiO2 Time Delivery Rate 12/17/18 87 12:00 12/17/18 99.0 20 93/57 (69) 98 11:21 Intake and Output 12/16/18 12/16/18 12/17/18 1515:00 23:00 07:00 IntakeIntake Total 420 ml 400 ml BalanceBalance 420 ml 400 ml Exam Constitutional: alert, oriented, well developed, other (lying in bed in NAD) Psych: no complaints (flat affect) Head: normocephalic, atraumatic Eyes: nl conjunctiva, nl lids, nl sclera ENMT: nl external ears & nose, nl nasal mucosa & septum, mucosa pink and moist Neck: supple Respiratory: clear to auscultation (diminished bibasilarly), normal air mov ement, other (stable on room air) Cardiovascular: regular rate and rhythm, nl pulses Gastrointestinal: soft, non-tender Genitourinary - Male: other (no Collins) Musculoskeletal: nl extremities to inspection (scattered scars noted on BLE) Extremities: normal pulses Neurological: nl mental status, nl speech, nl strength Skin: nl turgor; No rash or lesions Results Result Diagram: 12/14/1836 12/14/18 0736 Results 24hrs Laboratory Tests Test 12/16/18 17:28 12/16/18 21:17 12/17/18 07:30 12/17/18 12:18 Bedside Glucose 138 139 97 82 Test 12/17/18 12:24 Lab Scanned Report REFERENCE LAB Medications Medication Current Medications IV Flush (NS 3 ml) 3 ml PER PROTOCOL IV ; Start 12/10/18 at 23:30 Ondansetron HCl (Zofran Inj) 4 mg Q6H PRN IV NAUSEA/VOMITING Last administered on 12/15/18at 20:18; Admin Dose 4 MG; Start 12/10/18 at 23:30 Acetaminophen (Tylenol Tab) 650 mg Q6H PRN PO .PAIN 1-3 OR TEMP Last admin istered on 12/16/18at 19:51; Admin Dose 650 MG; Start 12/10/18 at 23:30 Bisacodyl (Dulcolax) 5 mg DAILY PRN PO .CONSTIPATION Last administered on 12/13/18at 08:01; Admin Dose 5 MG; Start 12/10/18 at 23:30 Diagnostic Test (Pha) (Accu-Chek) 1 ea 02 XX Last administered on 12/14/18at 02:52; Admin Dose 1 EA; Start 12/12/18 at 02:00 Insulin Aspart (Novolog Insulin Pen) NOVOLOG *MILD* ALGORITHM WITH MEALS BE DTIME SC Last administered on 12/14/18 13:01; Admin Dose 1 UNIT; Start 12/11/18 at 07:55 Miscellaneous Information 1 ea NOTE XX ; Start 12/11/18 at 06:30 Glucose (Glutose) 15 gm Q15M PRN PO DECREASED GLUCOSE; Start 12/11/18 at 06:30 Glucose (Glutose) 22.5 gm Q15M PRN PO DECREASED GLUCOSE; Start 12/11/18 at 06:30 Dextrose (D50w Syringe) 25 ml Q15M PRN IV DECREASED GLUCOSE; Start 12/11/18 at 06:30 Dextrose (D50w Syringe) 50 ml Q15M PRN IV DECREASED GLUCOSE; Start 12/11/18 at 06:30 Glucagon (Glucagen) 1 mg Q15M PRN IM DECREASED GLUCOSE; Start 12/11/18 at 06:30 Glucose (Glutose) 15 gm Q15M PRN BUCCAL DECREASED GLUCOSE; Start 12/11/18 at 06:30 Propranolol HCl (Inderal) 60 mg Q6H PO Last administered on 12/17/18at 10:04; Admin Dose 60 MG; Start 12/11/18 at 09:00 Docusate Sodium (Colace) 100 mg Q12 PO Last administered on 12/17/18 10:05; Admin Dose 100 MG; Start 12/11/18 at 21:00 Insulin Glargine (Lantus) 13 units DAILY@0800 SC Last administered on 12/17/18 08:27; Admin Dose 13 UNITS; Start 12/13/18 at 08:00 Polyethylene Glycol (Miralax) 17 gm DAILY PO Last administered on 12/17/18 10:05; Admin Dose 17 GM; Start 12/13/18 at 10:30 Metformin HCl (Glucophage) 500 mg BID WITH MEALS PO Last administered on 12/17/18 07:31; Admin Dose 500 MG; Start 12/13/18 at 13:00 Diagnostic Test (Pha) (Accu-Chek) 1 ea AC MEALS AND BEDTIME XX Last administered on 12/17/18 12:19; Admin Dose 1 EA; Start 12/13/18 at 17:25 Amoxicillin (Amoxicillin) 1,000 mg BID PO Last administered on 12/17/18 10:04; Admin Dose 1,000 MG; Start 12/14/18 at 09:30; Stop 12/28/18 at 09:29 Clarithromycin (Biaxin) 500 mg BID PO Last administered on 12/17/18 10:04; Admin Dose 500 MG; Start 12/14/18 at 09:30; Stop 12/28/18 at 09:29 Pantoprazole (Protonix Tab) 40 mg BID@06,18 PO Last administered on 12/17/18 05:59; Admin Dose 40 MG; Start 12/14/18 at 18:00; Stop 12/28/18 at 17:59 Insulin Aspart (Novolog Insulin Pen) 6 unit WITH MEALS SC Last administered on 12/17/18 12:22; Admin Dose 6 UNIT; Start 12/14/18 at 11:50 Methimazole (Tapazole) 30 mg Q12H PO Last administered on 12/17/18 07:31; Admin Dose 30 MG; Start 12/16/18 at 07:25 NESTOR HUGHES NP Dec 17, 2018 14:23
[2018-12-17] MEDS: ACETAMINOPHEN 325 MG TAB PO PRN (21:03)
[2018-12-18 01:58] VITALS: BP 107/56; PULSE 79; RESP 18
[2018-12-18] MEDS: ACCU-CHEK XX SCH ×5 (02:00→20:45)
[2018-12-18] MEDS: PROPRANOLOL 20 MG TAB PO SCH ×4 (02:37→20:41)
[2018-12-18 02:38] VITALS: BP 98/55; PULSE 75; RESP 18
[2018-12-18] MEDS: PANTOPRAZOLE (EC) 40 MG TAB PO SCH ×2 (06:17→17:47)
[2018-12-18] MEDS: INSULIN ASPART [NOVOLOG] 3 ML PEN SC SCH ×7 (08:00→20:45)
[2018-12-18 08:26] VITALS: BP 95/51; PULSE 89; RESP 18
[2018-12-18] MEDS: INSULIN GLARGINE [LANTus] (100 UNITS/ML) SYG SC SCH (08:54)
[2018-12-18] MEDS: ENOXAPARIN 40 MG/0.4 ML SYG SC SCH (08:55)
[2018-12-18] MEDS: POLYETHYLENE GLYCOL 17 GM PACKET PO SCH (08:55)
[2018-12-18] MEDS: DOCUSATE SODIUM 100 MG CAP PO SCH ×2 (08:56→20:42)
[2018-12-18] MEDS: AMOXICILLIN 500 MG CAP PO SCH ×2 (08:56→20:42)
[2018-12-18] MEDS: CLARITHROMYCIN 500 MG TAB PO SCH ×2 (08:57→20:42)
[2018-12-18] MEDS: metFORMIN 500 MG TAB PO SCH ×2 (08:57→17:47)
[2018-12-18] MEDS: METHIMAZOLE 5 MG TAB PO SCH ×2 (08:58→18:28)
[2018-12-18] MEDS: ACETAMINOPHEN 325 MG TAB PO PRN (08:58)
[2018-12-18 10:53] LABS: CMV DNA QL SOURCE WHOLE BLOOD
--- NOTE | 2018-12-18 12:04 | CONS ---
Assessment/Plan Assessment/Plan Hospital Course (Demo Recall) - Recurrent SIRS (fever and tachycardia); previous ID w/u and imaging were negative; - s/p Vancomycin and Cefepime (12/11/2018-12/14/18) - H. 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 pylori with amoxicillin, clarithromycin and PPI x 14 days (12/14/2018-) - Doubt need to treat sputum cx result; likely colonizer - complete last afb per [facility] protocol - if afb negative and no further fevers; outpatient f/u - If has recurrent fever then consider MADDIE - Pending: cocci, 1,3 Bpaw-[id number], AFB smears x1 more; CMV, EBV panel, WNV, HSV 1/2 by PCR, [place] and [place]engue virus serologies - Consider Heme eval and Rheum eval - Consider checking MATI, ESR, CRP, tumor markers Consultation Date/Type/Reason Admit Date/Time Dec 10, 2018 at 22:47 Initial Consult Date 12/11/18 Type of Consult iD Requesting Provider: YOLI ZAMORANO Date/Time of Note DATE: 12/18/18 TIME: 12:01 Exam/Review of Systems Exam Vitals Vital Signs Date Temp Pulse Resp B/P (MAP) Pulse Ox O2 O2 Flow FiO2 Time Delivery Rate 12/18/18 98.7 10:44 12/18/18 89 18 95/51 (66) 97 Room Air 08:26 Intake and Output 12/17/18 12/17/18 12/18/18 1515:00 23:00 07:00 IntakeIntake Total 400 ml 200 ml BalanceBalance 400 ml 200 ml Constitutional: alert, oriented, well developed Head: normocephalic, atraumatic Eyes: nl conjunctiva, EOMI, nl lids, nl sclera, PERRL Respiratory: clear to auscultation, normal air movement Cardiovascular: regular rate and rhythm, nl pulses Gastrointestinal: soft, nl liver, spleen, non-tender Results Result Diagram: 12/14/1873512/14/18735 Results 24hrs Laboratory Tests Test 12/17/18 12:18 12/17/18 12:24 12/17/18 16:58 12/17/18 21:01 Bedside Glucose 82 120 142 Lab Scanned Report REFERENCE LAB Test 12/18/18 05:42 12/18/18 08:44 Free Thyroxine > 6.99 H Free 8.49 H Triiodothyronine (T3) pg/mL Bedside Glucose 105 Medications Medication Current Medications IV Flush (NS 3 ml) 3 ml PER PROTOCOL IV ; Start 12/10/18 at 23:30 Ondansetron HCl (Zofran Inj) 4 mg Q6H PRN IV NAUSEA/VOMITING Last administered on 12/15/18at 20:18; Admin Dose 4 MG; Start 12/10/18 at 23:30 Acetaminophen (Tylenol Tab) 650 mg Q6H PRN PO .PAIN 1-3 OR TEMP Last administered on 12/18/18at 08:58; Admin Dose 650 MG; Start 12/10/18 at 23:30 Bisacodyl (Dulcolax) 5 mg DAILY PRN PO .CONSTIPATION Last administered on 08:01; Admin Dose 5 MG; Start 12/10/18 at 23:30 Diagnostic Test (Pha) (Accu-Chek) 1 ea 02 XX Last administered on 12/14/18at 02:52; Admin Dose 1 EA; Start 12/12/18 at 02:00 Insulin Aspart (Novolog Insulin Pen) NOVOLOG *MILD* ALGORITHM WITH MEALS BEDTIME SC Last administered on 12/14/18at 13:01; Admin Dose 1 UNIT; Start 12/11/18 at 07:55 Miscellaneous Information 1 ea NOTE XX ; Start 12/11/18 at 06:30 Glucose (Glutose) 15 gm Q15M PRN PO DECREASED GLUCOSE; Start 12/11/18 at 06:30 Glucose (Glutose) 22.5 gm Q15M PRN PO DECREASED GLUCOSE; Start 12/11/18 at 06:30 Dextrose (D50w Syringe) 25 ml Q15M PRN IV DECREASED GLUCOSE; Start 12/11/18 at 06:30 Dextrose (D50w Syringe) 50 ml Q15M PRN IV DECREASED GLUCOSE; Start 12/11/18 at 06:30 Glucagon (Glucagen) 1 mg Q15M PRN IM DECREASED GLUCOSE; Start 12/11/18 at 06:30 Glucose (Glutose) 15 gm Q15M PRN BUCCAL DECREASED GLUCOSE; Start 12/11/18 at 06:30 Propranolol HCl (Inderal) 60 mg Q6H PO Last administered on 12/17/18 21:03; Admin Dose 60 MG; Start 12/11/18 at 09:00 Docusate Sodium (Colace) 100 mg Q12 PO Last administered on 12/18/18 08:56; Admin Dose 100 MG; Start 12/11/18 at 21:00 Insulin Glargine (Lantus) 13 units DAILY@0800 SC Last administered on 12/18/18 08:54; Admin Dose 13 UNITS; Start 12/13/18 at 08:00 Polyethylene Glycol (Miralax) 17 gm DAILY PO Last administered on 12/18/18 08:55; Admin Dose 17 GM; Start 12/13/18 at 10:30 Metformin HCl (Glucophage) 500 mg BID WITH MEALS PO Last administered on 12/18/18 08:57; Admin Dose 500 MG; Start 12/13/18 at 13:00 Diagnostic Test (Pha) (Accu-Chek) 1 ea AC MEALS AND BEDTIME XX Last a dministered on 12/18/18 07:00; Admin Dose 1 EA; Start 12/13/18 at 17:25 Amoxicillin (Amoxicillin) 1,000 mg BID PO Last administered on 12/18/18 08:56; Admin Dose 1,000 MG; Start 12/14/18 at 09:30; Stop 12/28/18 at 09:29 Clarithromycin (Biaxin) 500 mg BID PO Last administered on 12/18/18 08:57; Ad min Dose 500 MG; Start 12/14/18 at 09:30; Stop 12/28/18 at 09:29 Pantoprazole (Protonix Tab) 40 mg BID@06,18 PO Last administered on 12/18/18 06:17; Admin Dose 40 MG; Start 12/14/18 at 18:00; Stop 12/28/18 at 17:59 Insulin Aspart (Novolog Insulin Pen) 6 unit WITH MEALS SC Last administered on 12/18/18at 09:02; Admin Dose 6 UNIT; Start 12/14/18 at 11:50 Methimazole (Tapazole) 30 mg Q12H PO Last administered on 12/18/18at 08:58; Admin Dose 30 MG; Start 12/16/18 at 07:25 Enoxaparin Sodium (Lovenox) 40 mg DAILY SC Last administered on 12/18/18at 08:55; Admin Dose 40 MG; Start 12/18/18 at 09:00 ANGEL CHAVEZ MD Dec 18, 2018 12:04
[2018-12-18] MEDS: MEROPENEM 1 GM/50ML(PMX) 50 ML IVPB SCH ×2 (13:11→20:42)
[2018-12-18 14:25] VITALS: BP 105/58; PULSE 78; RESP 18
--- NOTE | 2018-12-18 15:00 | CONS ---
Consult Date/Type/Reason Admit Date/Time Dec 10, 2018 at 22:47 Initial Consult Date 12/12/18 Type of Consult Pulmonary Requesting Provider: YOLI ZAMORANO Date/Time of Note DATE: 12/18/18 TIME: 14:59 Subjective Remains febrile. Breathing improved. Objective Vital Signs Date Temp Pulse Resp B/P (MAP) Pulse Ox O2 O2 Flow FiO2 Time Delivery Rate 12/18/18 98.7 10:44 12/18/18 89 18 95/51 (66) 97 Room Air 08:26 Intake and Output 12/17/18 12/17/18 12/18/18 1515:00 23:00 07:00 IntakeIntake Total 400 ml 200 ml BalanceBalance 400 ml 200 ml Exam GENERAL: Well-nourished well-developed gentleman comfortable at rest VITAL SIGNS: per chart NECK: Supple. No JVD or lymphadenopathy. CARDIAC EXAM: S1, S2. No added sounds or murmurs. CHEST: clear bilaterally, No added sounds, rales or wheezes ABDOMEN: Soft, nontender. No guarding or rebound. EXTREMITIES: No cyanosis, clubbing or edema. NEUROLOGIC: Generalized weakness. No focal deficits. Results/Medications Result Diagram: 12/14/18 0736 12/14/18 0736 Results 24 hrs Laboratory Tests Test 12/17/18 16:58 12/17/18 21:01 12/18/18 05:42 12/18/18 08:44 Bedside Glucose 120 142 105 Vitamin B12 Level 799 Free Thyroxine > 6.99 H Free 8.49 H Triiodothyronine (T3) pg/mL Test 12/18/18 13:06 Bedside Glucose 157 Medications Current Medications IV Flush (NS 3 ml) 3 ml PER PROTOCOL IV ; Start 12/10/18 at 23:30 Ondansetron HCl (Zofran Inj) 4 mg Q6H PRN IV NAUSEA/VOMITING Last administered on 12/15/18at 20:18; Admin Dose 4 MG; Start 12/10/18 at 23:30 Acetaminophen (Tylenol Tab) 650 mg Q6H PRN PO .PAIN 1-3 OR TEMP Last administered on 12/18/18at 08:58; Admin Dose 650 MG; Start 12/10/18 at 23:30 Bisacodyl (Dulcolax) 5 mg DAILY PRN PO .CONSTIPATION Last administered on 12/13/18 08:01; Admin Dose 5 MG; Start 12/10/18 at 23:30 Diagnostic Test (Pha) (Accu-Chek) 1 ea 02 XX Last administered on 12/14/18 02:52; Admin Dose 1 EA; Start 12/12/18 at 02:00 Insulin Aspart (Novolog Insulin Pen) NOVOLOG *MILD* ALGORITHM WITH MEALS BEDTIME SC Last administered on 12/18/18 13:10; Admin Dose 1 UNIT; Start 12/11/18 at 07:55 Miscellaneous Information 1 ea NOTE XX ; Start 12/11/18 at 06:30 Glucose (Glutose) 15 gm Q15M PRN PO DECREASED GLUCOSE; Start 12/11/18 at 06:30 Glucose (Glutose) 22.5 gm Q15M PRN PO DECREASED GLUCOSE; Start 12/11/18 at 06:30 Dextrose (D50w Syringe) 25 ml Q15M PRN IV DECREASED GLUCOSE; Start 12/11/18 at 06:30 Dextrose (D50w Syringe) 50 ml Q15M PRN IV DECREASED GLUCOSE; Start 12/11/18 at 06:30 Glucagon (Glucagen) 1 mg Q15M PRN IM DECREASED GLUCOSE; Start 12/11/18 at 06:30 Glucose (Glutose) 15 gm Q15M PRN BUCCAL DECREASED GLUCOSE; Start 12/11/18 at 06:30 Propranolol HCl (Inderal) 60 mg Q6H PO Last administered on 12/17/18 21:03; Admin Dose 60 MG; Start 12/11/18 at 09:00 Docusate Sodium (Colace) 100 mg Q12 PO Last administered on 12/18/18 08:56; Admin Dose 100 MG; Start 12/11/18 at 21:00 Insulin Glargine (Lantus) 13 units DAILY@0800 SC Last administered on 12/18/18 08:54; Admin Dose 13 UNITS; Start 12/13/18 at 08:00 Polyethylene Glycol (Miralax) 17 gm DAILY PO Last administered on 12/18/18 08:55; Admin Dose 17 GM; Start 12/13/18 at 10:30 Metformin HCl (Glucophage) 500 mg BID WITH MEALS PO Last administered on 12/18/18 08:57; Admin Dose 500 MG; Start 12/13/18 at 13:00 Diagnostic Test (Pha) (Accu-Chek) 1 ea AC MEALS AND BEDTIME XX Last administered on 12/18/18 11:30; Admin Dose 1 EA; Start 12/13/18 at 17:25 Amoxicillin (Amoxicillin) 1,000 mg BID PO Last administered on 12/18/18 08:56; Admin Dose 1,000 MG; Start 12/14/18 at 09:30; Stop 12/28/18 at 09:29 Clarithromycin (Biaxin) 500 mg BID PO Last administered on 12/18/18 08:57; Admin Dose 500 MG; Start 12/14/18 at 09:30; Stop 12/28/18 at 09:29 Pantoprazole (Protonix Tab) 40 mg BID@06,18 PO Last administered on 12/18/18 06:17; Admin Dose 40 MG; Start 12/14/18 at 18:00; Stop 12/28/18 at 17:59 Insulin Aspart (Novolog Insulin Pen) 6 unit WITH MEALS SC Last administered on 12/18/18 13:11; Admin Dose 6 UNIT; Start 12/14/18 at 11:50 Methimazole (Tapazole) 30 mg Q12H PO Last administered on 12/18/18 08:58; Admin Dose 30 MG; Start 12/16/18 at 07:25 Enoxaparin Sodium (Lovenox) 40 mg DAILY SC Last administered on 12/18/18 08:55; Admin Dose 40 MG; Start 12/18/18 at 09:00 Meropenem/Sodium Chloride 50 ml @ 100 mls/hr Q12 IVPB Last administered on 12/18/18 13:11; Admin Dose 100 MLS/HR; Start 12/18/18 at 12:30 Assessment/Plan Hospital Course (Demo Recall) IMPRESSION AND PLAN: 1. 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 2. History of Graves' disease. 3. Ongoing fevers negative extensive workup to date Recommendations 1. Continue ID Epi 2. Antibiotics per primary team 3. Follow-up with primary care physician SALOME LEWIS MD, [facility] Dec 18, 2018 15:00
[2018-12-18 20:00] VITALS: BP 151/77; PULSE 98; RESP 18
[2018-12-19] MEDS: ACCU-CHEK XX SCH ×3 (01:50→11:30)
[2018-12-19 01:59] VITALS: BP 116/58; PULSE 95; RESP 18
[2018-12-19] MEDS: PROPRANOLOL 20 MG TAB PO SCH ×2 (03:00→08:58)
[2018-12-19] MEDS: PANTOPRAZOLE (EC) 40 MG TAB PO SCH (06:10)
[2018-12-19 07:28] VITALS: BP 107/59; PULSE 93; RESP 17
[2018-12-19] MEDS: INSULIN ASPART [NOVOLOG] 3 ML PEN SC SCH ×4 (08:00→13:08)
[2018-12-19] MEDS: CLARITHROMYCIN 500 MG TAB PO SCH (08:57)
[2018-12-19] MEDS: AMOXICILLIN 500 MG CAP PO SCH (08:57)
[2018-12-19] MEDS: metFORMIN 500 MG TAB PO SCH (08:57)
[2018-12-19] MEDS: POLYETHYLENE GLYCOL 17 GM PACKET PO SCH (08:58)
[2018-12-19] MEDS: METHIMAZOLE 5 MG TAB PO SCH (08:58)
[2018-12-19] MEDS: DOCUSATE SODIUM 100 MG CAP PO SCH (08:58)
[2018-12-19] MEDS: INSULIN GLARGINE [LANTus] (100 UNITS/ML) SYG SC SCH (09:01)
[2018-12-19] MEDS: ENOXAPARIN 40 MG/0.4 ML SYG SC SCH (09:02)
[2018-12-19] MEDS: MEROPENEM 1 GM/50ML(PMX) 50 ML IVPB SCH (09:03)
--- NOTE | 2018-12-19 09:53 | EN ---
Date/Time of Note Date/Time of Note DATE: 12/18/18 TIME: : Event Note Medicine Medicine Event Note Progress note S: Patient feeling very lethargic, reports a lot of dizziness when he tries to walk. I spoke to him about the fact that he is always lying down when I evalu ate him. He states he sometimes goes to the bathroom or sits in the chair. O: General: A&O x3, answering questions appropriately, no distress, lethargic HEENT: NC/ AT. PERRL. EOM intact Neck: supple CVS: S1, S2, RRR. no murmurs. no pain on chest wall palpation Lungs: CTA b/l. no wheezing or rhonchi Abd: soft, nontender, +BS Ext: moving all extremities skin: no rashes assessment and plan: #1 sepsis vs SIRS: -source is unclear, -WBC scan negative. Respiratory cultures growing Klebsiella ESBL. 2. acute RTI -sputum cultures growing gram negative dayron, f/u final ID -hx of + quantiferon gold, TB r/o ongoing sputum X2 negative, both pulmonary and ID feels very strongly this is not an acute tuberculosis, if anything may be Latent TB per pulm -CT chest from last admission reviewed 3. Chronic hyperthyroidism: still uncontrolled -continue methimazole and propranolol, s/p loading PTU - appreciate endo consult -thyroid USS showed diffusely enlarged thyroid gland without nodule #3 Diabetes mellitus: improved inhouse control -monitor levels and titrate meds as indicated -a1C 6.1 -appreciate endo review #4. Poor appetite and weight loss -likely related to #3, per family patient had been well controlled for a long time and then he fell off his meds and has just recently been put back on them. 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, unlikely to be active TB Dispo: -Continue rehabilitation, continue treatment for hypothyroidism, start Carbapenem for ESBL Klebsiella in sputum YOLI ZAMORANO Dec 19, 2018 09:53
--- NOTE | 2018-12-19 11:48 | DS ---
Date/Time of Note Date/Time of Note DATE: 12/19/18 TIME: 11:38 Discharge Summary Admission/Discharge Info Admit Date/Time Dec 10, 2018 at 22:47 Discharge Date/Time Discharge Diagnosis 1. Sepsis 2/2 Klebsiella ESBL RTI 2. Chronic hyperthyroidism: still uncontrolled 3. Diabetes mellitus type 2 4. Poor appetite and weight loss 2/2 hyperthyroidism 5. Positive H pylori antigen in stool, likely contributing to #4 6. Positive TB quantiferon gold, ?significance . Patient Condition: Stable Consults Pulmonary: Angelo Regalado MD Infectious disease: Thom Torers MD Endocrinology: Arturo Alvarado MD . Hospital Course 58-year-old male who presented to emergency room December 11, 2018 with fever, lethargy, poor appetite and a nonproductive cough. He was found to be septic on arrival and on the prior hospitalization just a couple of weeks prior to he was found to have a positive TB QuantiFERON gold. The initial admission diagnosis was sepsis likely secondary to tuberculosis, active, so he was admitted and put on isolation to rule out TB. However review of his imaging and his clinical presentation was not supportive of active tuberculosis. He was seen by both infectious disease as well as pulmonary who agreed with this. Pulmonary felt that his positive TB QuantiFERON gold could be reflective of possible latent TB but definitely not active TB. However detailed workup for his sepsis could not find alternate source until towards the end of his hospitalization when respiratory culture grew out Klebsiella ESBL. He did have a prolonged hospital ization because he kept spiking fevers without a known source and he had to undergo extensive workup. Of note also is that the patient does have a history of Graves' disease and chronic hypothyroidism and apparently was previously well controlled for years and fell off his medication. His prior hospitalization 2 weeks ago showed that he was poorly controlled and he was seen by endocrinology at that time and his medications adjusted. However despite compliance to medication, on this hospitalization was also found to have suboptimal control. Again he was seen by endocrinology, pulse dosed with PTU and resumed on methimazole and seems to be doing well. He no longer has any tachycardia. At this time, he has been fever free for more than 24 hours, we do have sensitivity profile for his Klebsiella infection, and the patient is stable for continued follow-up as outpatient. He however is debilitated and will require ongoing physical therapy he will be discharged with home physical therapy. This is likely a contribution of a subacute infection as well as poorly controlled chronic hyperthyroidism. Pulmonary has recommended deferring treatment for latent TB, until he has recovered from active Klebsiella infection. He will follow-up with pulmonary as outpatient for final Mycobacterium culture results and at that time a decision will be made as to whether he will be treated for latent TB or not. This is communicated to the patient and his family. Incidentally, he was found to be H. pylori antigen positive in his stool, and he is currently on triple therapy for that. . Home Meds Active Scripts Methimazole* (Methimazole*) 5 Mg Tablet, 10 MG PO BID for 30 Days, TAB Prov:ASHLY MANTILLA MD 11/28/18 Metformin* (Glucophage*) 500 Mg Tab, 1000 MG PO BID WITH MEALS for 30 Days, TAB Prov:ASHLY MANTILLA MD 11/28/18 Reported Medications Glipizide* (Glipizide*) 5 Mg Tablet, 5 MG PO BID, TAB 11/23/18 Metformin* (Glucophage*) 1,000 Mg Tablet, 1000 MG PO BID, #60 TAB 11/23/18 Follow-up Plan You have to stay on top of your chronic conditions. * It is imperative that you follow-up with your primary care doctor within the next 1 week to notify them of the events during her hospitalization. * You also have to follow-up with the granite cutter apprentice. His information is as below. Name, Degree : Angelo Regalado MD Specialty : Critical Care Medicine Office Address : [address] [place] [address] Office Office If you cannot see this granite cutter apprentice, please have your primary doctor refer you to a contracted granite cutter apprentice. * Please follow-up for your final Mycobacterium TB results, as well as to be sure that your hypothyroidism remains well controlled. * Review your medication list with your nurse before leaving and if you need new prescriptions please let your nurse know. * I may have made changes to your home medications or given you new prescriptions, please let your primary doctor know as well. * Stay compliant with your medications and report any side effects to your PCP or pharmacist. * Return to the ER if you have any concerns and cannot reach your doctors or call your insurance company, they usually have a nurse that can help you. . Primary Care Provider Not On Staff Doctor Time spent on discharge: > 30 minutes Pending Labs Laboratory Tests Test 12/18/18 13:06 12/18/18 17:47 12/18/18 20:44 12/19/18 07:58 Bedside 157 89 88 101 Glucose mg/dL (70-220) mg/dL (70-220) mg/dL (70-220) mg/dL (70-220) Test 12/19/18 11:30 Lab Scanned REFERENCE Report LAB [id number] YOLI ZAMORANO Dec 19, 2018 11:48
[2018-12-19] MEDS ORDERED: LANT3I SC (11:59)
[2018-12-19] MEDS ORDERED: METH10TA5 PO (11:59)
[2018-12-19] MEDS ORDERED: PANT40TA4 PO (11:59)
[2018-12-19] MEDS ORDERED: PROP40TA4 PO (11:59)
[2018-12-19] MEDS ORDERED: AMOX500C2 PO (11:59)
[2018-12-19] MEDS ORDERED: METF-849 PO (11:59)
[2018-12-19] MEDS ORDERED: DOCU-159 PO (11:59)
[2018-12-19] MEDS ORDERED: CLAR500T PO (11:59)
--- NOTE | 2018-12-19 12:00 | PDOCDIS ---
Discharge Instructions DIAGNOSIS Discharge Diagnosis 1. Sepsis 2/2 Klebsiella ESBL RTI 2. Chronic hyperthyroidism: still uncontrolled 3. Diabetes mellitus type 2 4. Poor appetite and weight loss 2/2 hyperthyroidism 5. Positive H pylori antigen in stool, likely contributing to #4 6. Positive TB quantiferon gold, ?significance . CONDITION [id number] Patient Condition: [id number] Stable ACTIVITY: [id number] Activity Restrictions: Aiauc4d Slowly Increase Activity Rest between Activity FOLLOW UP/APPOINTMENTS Follow-up Plan You have to stay on top of your chronic conditions. * It is imperative that you follow-up with your primary care doctor within the next 1 week to notify them of the events during her hospitalization. * You also have to follow-up with the comic book artist. His information is as below. Name, Degree : Angelo Regalado MD Specialty : Critical Care Medicine Office Address : [address] [place] [address] Office Office If you cannot see this comic book artist, please have your primary doctor refer you to a contracted comic book artist. * Please follow-up for your final Mycobacterium TB results, as well as to be sure that your hypothyroidism remains well controlled. * Review your medication list with your nurse before leaving and if you need new prescriptions please let your nurse know. * I may have made changes to your home medications or given you new prescriptions, please let your primary doctor know as well. * Stay compliant with your medications and report any side effects to your PCP or pharmacist. * Return to the ER if you have any concerns and cannot reach your doctors or call your insurance company, they usually have a nurse that can help you. . YOLI ZAMORANO Dec 19, 2018 12:00
[2018-12-19 14:29] VITALS: BP 117/63; PULSE 93; RESP 18
--- NOTE | 2018-12-19 15:05 | CONS ---
Assessment/Plan Assessment/Plan Hospital Course (Demo Recall) - Recurrent SIRS (fever and tachycardia; procalcitonin <0.1); previous ID w/u and imaging were negative; WBC scan 12/18/18 negative; s/p Vancomycin and Cefepime (12/11/2018-12/14/18) - H. 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 Pneumo ESBL in sputum cx on 12/15/2018, likely colonizer - Graves disease - Hyperthyroidism - on Tapazole - T2DM - Hgb A1c 6.1% - Elevated ESR - Hx EBV exposure - The following is negative: HIV, HIV viral load, procalc, Crypto AG, [place]-sme ar, malaria, AFB on 12/11/2018 and 12/13/2018, resp virus panel, MTB complex, HSV 1&2 by PCR, CMV Recommendations: - Complete treatment for H. pylori with amoxicillin, clarithromycin and PPI x 14 days (12/14/2018-) - On Meropenem (12/18/2018-) - Doubt need to treat sputum cx result as pt is asymptomatic and stable on room air; likely colonizer - Complete last AFB per [facility] protocol. If AFB negative and no further fevers, then outpatient f/u - If has recurrent fever then consider MADDIE - Pending: cocci, 1,3 [id number], AFB smears x1 more; WNV, [place] and Dengue virus serologies - Consider Heme eval and Rheum eval - Consider checking MATI, CRP, tumor markers Management d/w patient ( at bedside), ADDISON Manrique, and with Dr. Tomas Consultation Date/Type/Reason Admit Date/Time Dec 10, 2018 at 22:47 Initial Consult Date 12/12/18 Type of Consult Infectious Disease Requesting Provider: YOLI ZAMORNAO Date/Time of Note DATE: 12/19/18 TIME: 14:50 24 HR Interval Summary Free Text/Dictation 3rd AFB is pending from 12/17/2018. Another sample sent this AM per d/w nursing. Resp virus panel and MTB complex negative. WBC scan negative. DC planning for home today per d/w nursing. Pt denies pain, SOB, or any other complaints. Pt is asking for water with no ice. Exam/Review of Systems Exam Vitals Vital Signs Date Temp Pulse Resp B/P (MAP) Pulse Ox O2 O2 Flow FiO2 Time Delivery Rate 12/19/18 100.1 93 18 117/63 97 Room Air 14:29 (81) Intake and Output 12/18/18 12/18/18 12/19/18 1515:00 23:00 07:00 IntakeIntake Total 410 ml 120 ml 50 ml BalanceBalance 410 ml 120 ml 50 ml Exam Constitutional: alert, oriented, well developed, other (sitting at side of bed and putting on white t-shirt to get ready to go home) Psych: no complaints (flat affect) Head: normocephalic, atraumatic Eyes: nl conjunctiva, nl lids, nl sclera ENMT: nl external ears & nose, nl nasal mucosa & septum, mucosa pink and moist Neck: supple Respiratory: clear to auscultation, normal air movement, other (stable on room air) Cardiovascular: regular rate and rhythm, nl pulses Gastrointestinal: soft, non-tender Genitourinary - Male: other (no Collins) Musculoskeletal: nl extremities to inspection (scattered scars noted on BLE) Extremities: normal pulses Neurological: nl mental status, nl speech, nl strength Skin: nl turgor; No rash or lesions Results Results 24hrs Laboratory Tests Test 12/18/18 17:47 12/18/18 20:44 12/19/18 07:58 12/19/18 11:30 Bedside Glucose 89 88 101 Lab Scanned Report REFERENCE LAB Test 12/19/18 12:29 Bedside Glucose 80 Imaging Imaging WBC scan 12/18/2018: 1. Negative whole body white blood cell scan. 2. No evidence for infectious process. Medications Medication Current Medications IV Flush (NS 3 ml) 3 ml PER PROTOCOL IV ; Start 12/10/18 at 23:30 Ondansetron HCl (Zofran Inj) 4 mg Q6H PRN IV NAUSEA/VOMITING Last administered on 12/15/18at 20:18; Admin Dose 4 MG; Start 12/10/18 at 23:30 Acetaminophen (Tylenol Tab) 650 mg Q6H PRN PO .PAIN 1-3 OR TEMP Last administered on 12/18/18 08:58; Admin Dose 650 MG; Start 12/10/18 at 23:30 Bisacodyl (Dulcolax) 5 mg DAILY PRN PO .CONSTIPATION Last administered on 12/13/18 08:01; Admin Dose 5 MG; Start 12/10/18 at 23:30 Diagnostic Test (Pha) (Accu-Chek) 1 ea 02 XX Last administered on 12/14/18 02:52; Admin Dose 1 EA; Start 12/12/18 at 02:00 Insulin Aspart (Novolog Insulin Pen) NOVOLOG *MILD* ALGORITHM WITH MEALS BEDTIME SC Last administered on 12/18/18 13:10; Admin Dose 1 UNIT; Start 12/11/18 at 07:55 Miscellaneous Information 1 ea NOTE XX ; Start 12/11/18 at 06:30 Glucose (Glutose) 15 gm Q15M PRN PO DECREASED GLUCOSE; Start 12/11/18 at 06:30 Glucose (Glutose) 22.5 gm Q15M PRN PO DECREASED GLUCOSE; Start 12/11/18 at 06:30 Dextrose (D50w Syringe) 25 ml Q15M PRN IV DECREASED GLUCOSE; Start 12/11/18 at 06:30 Dextrose (D50w Syringe) 50 ml Q15M PRN IV DECREASED GLUCOSE; Start 12/11/18 at 06:30 Glucagon (Glucagen) 1 mg Q15M PRN IM DECREASED GLUCOSE; Start 12/11/18 at 06:30 Glucose (Glutose) 15 gm Q15M PRN BUCCAL DECREASED GLUCOSE; Start 12/11/18 at 06:30 Propranolol HCl (Inderal) 60 mg Q6H PO Last administered on 12/19/18 08:58; Admin Dose 60 MG; Start 12/11/18 at 09:00 Docusate Sodium (Colace) 100 mg Q12 PO Last administered on 12/19/18 08:58; Admin Dose 100 MG; Start 12/11/18 at 21:00 Insulin Glargine (Lantus) 13 units DAILY@0800 SC Last administered on 12/19/18 09:01; Admin Dose 13 UNITS; Start 12/13/18 at 08:00 Polyethylene Glycol (Miralax) 17 gm DAILY PO Last administered on 12/19/18 08:58; Admin Dose 17 GM; Start 12/13/18 at 10:30 Metformin HCl (Glucophage) 500 mg BID WITH MEALS PO Last administered on 12/19/18 08:57; Admin Dose 500 MG; Start 12/13/18 at 13:00 Diagnostic Test (Pha) (Accu-Chek) 1 ea AC MEALS AND BEDTIME XX Last administered on 12/18/18 20:45; Admin Dose 1 EA; Start 12/13/18 at 17:25 Amoxicillin (Amoxicillin) 1,000 mg BID PO Last administered on 12/19/18 08:57; Admin Dose 1,000 MG; Start 12/14/18 at 09:30; Stop 12/28/18 at 09:29 Clarithromycin (Biaxin) 500 mg BID PO Last administered on 12/19/18 08:57; Admin Dose 500 MG; Start 12/14/18 at 09:30; Stop 12/28/18 at 09:29 Pantoprazole (Protonix Tab) 40 mg BID@06,18 PO Last administered on 12/19/18 06:10; Admin Dose 40 MG; Start 12/14/18 at 18:00; Stop 12/28/18 at 17:59 Insulin Aspart (Novolog Insulin Pen) 6 unit WITH MEALS SC Last administered on 12/19/18 13:08; Admin Dose 6 UNIT; Start 12/14/18 at 11:50 Methimazole (Tapazole) 30 mg Q12H PO Last administered on 12/19/18 08:58; Admin Dose 30 MG; Start 12/16/18 at 07:25 Enoxaparin Sodium (Lovenox) 40 mg DAILY SC Last administered on 12/19/18 09:02; Admin Dose 40 MG; Start 12/18/18 at 09:00 Meropenem/Sodium Chloride 50 ml @ 100 mls/hr Q12 IVPB Last administered on 12/19/18 09:03; Admin Dose 100 MLS/HR; Start 12/18/18 at 12:30 NESTOR HUGHES NP Dec 19, 2018 15:00
== END 2018-12-19 15:15 | disposition home health service (06) | DRG 871 ==
LOC: E/R 16:34 → TEL 22:47 → 2NE 12-18 01:33
PROVIDERS: ADMIT Family Medicine; ATTEND Family Medicine
DX: A41.9 Sepsis, unspecified organism (principal); J18.9 Pneumonia, unspecified organism; E11.9 Type 2 diabetes mellitus without complications; E05.00 Thyrotoxicosis with diffuse goiter without thyrotoxic crisis or storm; R63.4 Abnormal weight loss; Z68.25 Body mass index [BMI] 25.0-25.9, adult; J20.9 Acute bronchitis, unspecified; R76.11 Nonspecific reaction to tuberculin skin test without active tuberculosis; B96.81 Helicobacter pylori [H. pylori] as the cause of diseases classified elsewhere; B96.1 Klebsiella pneumoniae [K. pneumoniae] as the cause of diseases classified elsewhere; Z16.12 Extended spectrum beta lactamase (ESBL) resistance
CPT/HCPCS: 70450; 71045; 76536; 78806; 80048; 80053; 80202; 81003; 82150; 82607; 82962; 83036; 83605; 83690; 83735; 84145; 84436; 84439; 84443; 84479; 84480; 84481; 84484; 85025; 85610; 85651; 85730; 86140; 86308; 86376; 86480; 86635; 86641; 86664; 86703; 86788; 86789; 86800; 87040; 87070; 87086; 87116; 87207; 87275; 87276; 87279; 87280; 87400; 87496; 87529; 87536; 87556; 93005; 96374; 96375; 97110; 97162; J1800; A4310; A9570; J0692; J1650; J1815; J2185; J2405; J3370; J7030; J7050

== ENCOUNTER 2019-01-16 12:09 | Inpatient (IN) | payer OTHER ==
[~2019-01-16] VITALS: Ht 185.4 cm; Wt 75.7 kg
[~2019-01-16 12:09] MED LIST changes: +AMOX500C2 PO; +CLAR500T PO; +DOCU-159 PO; +LANT3I SC; -METH-493 PO; +METH10TA5 PO; -MTF1000T PO; +PANT40TA4 PO; +PROP40TA4 PO
[2019-01-16] MEDS ORDERED: SOD CHLORIDE 0.9% 1,000 ML IV STA (12:12)
[2019-01-16] MEDS ORDERED: PANT40TA4 PO (13:34)
[2019-01-16] MEDS ORDERED: DOCU-144 PO (13:35)
[2019-01-16] MEDS ORDERED: PROP40TA4 PO (13:35)
[2019-01-16] MEDS ORDERED: LISI2.5T59 PO (13:35)
[2019-01-16] MEDS ORDERED: METF-849 PO (13:36)
[2019-01-16] MEDS ORDERED: ONDA4TAB8 PO (13:37)
[2019-01-16] MEDS ORDERED: SIMV20TA PO (13:37)
[2019-01-16] MEDS ORDERED: METH10TA5 PO (13:37)
[2019-01-16] MEDS ORDERED: NITROGLYCERIN 2% 1 GM OINT PKT TD STA (14:21)
[2019-01-16] MEDS ORDERED: ASPIRIN 81 MG TAB PO STA (14:21)
[2019-01-16] MEDS ORDERED: NITROGLYCERIN (SL) 0.4 MG TAB SL PRN (14:30)
[2019-01-16] MEDS ORDERED: PROPYLTHIOURACIL 50 MG TAB PO ONE ×2 (15:30→22:00)
[2019-01-16] MEDS ORDERED: ACETAMINOPHEN 325 MG TAB PO PRN (15:30)
[2019-01-16] MEDS ORDERED: ONDANSETRON 4 MG INJ IV PRN (15:30)
[2019-01-16] MEDS ORDERED: ONDANSETRON 4 MG TAB PO PRN (16:30)
[2019-01-16] MEDS ORDERED: GLUCOSE GEL 15 GRAM TUBE PO PRN ×2 (17:00)
[2019-01-16] MEDS ORDERED: DEXTROSE 50% 50 ML SYRINGE IV PRN ×2 (17:00)
[2019-01-16] MEDS ORDERED: GLUCOSE GEL 15 GRAM TUBE BUCCAL PRN (17:00)
[2019-01-16] MEDS ORDERED: GLUCAGON 1 MG INJ IM PRN (17:00)
--- NOTE | 2019-01-16 17:00 | ERD ---
ER Documentation Chief Complaint Chief Complaint BIB RA FOR EVAL OF GENERALIZED WEAKNESS. REFERED BY CLINIC HPI Patient is a 58-year-old male with diabetes and thyroid disease who presents with chest pain. The patient was brought in by ambulance. He was sent by a clinic. He was having chest pain and diffuse weakness. He has had weight loss over the past 3 months. The patient had a blood sugar of 182 by paramedics. He has had no treatment as of yet. ROS All systems reviewed and are negative except as per history of present illness. Medications Home Meds Reported Medications Ondansetron Hcl* (Zofran*) 4 Mg Tablet, 4 MG PO DAILY PRN for NAUSEA AND OR VOMITING, TAB 01/16/19 Simvastatin* (Zocor*) 20 Mg Tablet, 20 MG PO QHS, #30 TAB 01/16/19 Methimazole* (Methimazole*) 10 Mg Tablet, 30 MG PO BID, TAB 01/16/19 Metformin* (Glucophage*) 500 Mg Tab, 500 MG PO BID, #90 TAB 01/16/19 Lisinopril* (Lisinopril*) 2.5 Mg Tablet, 2.5 MG PO DAILY, #30 TAB 01/16/19 Propranolol Hcl* (Propranolol Hcl*) 40 Mg Tablet, 40 MG PO TID, TAB 01/16/19 Docusate Sodium* (Colace*) 100 Mg Capsule, 100 MG PO BID PRN for CONSTIPATION, #60 CAP 01/16/19 Pantoprazole* (Pantoprazole*) 40 Mg Tablet.dr, 40 MG PO AC BREAKFAST, TAB 01/16/19 Discontinued Reported Medications Glipizide* (Glipizide*) 5 Mg Tablet, 5 MG PO BID, TAB 11/23/18 Discontinued Scripts Insulin Glargine* (Lantus*) 100 Unit/Ml Soln, 13 UNIT SC DAILY, #4 VIAL Prov:YOLI ZAMORANO M. 12/19/18 Methimazole* (Methimazole*) 10 Mg Tablet, 30 MG PO BID, #180 TAB Prov:LONAHANNAHO M. 12/19/18 Docusate Sodium* (Docusate Sodium*) 100 Mg Capsule, 100 MG PO Q12, #60 CAP Prov:LONAYOLI M. 12/19/18 Pantoprazole* (Pantoprazole*) 40 Mg Tablet.dr, 40 MG PO BID@06,18, #50 TAB Prov:YOLI ZAMORANO 12/19/18 Propranolol Hcl* (Propranolol Hcl*) 40 Mg Tablet, 80 MG PO TID, #180 TAB 1 Refill Prov:YOLI ZAMORANO. 12/19/18 Clarithromycin* (Clarithromycin*) 500 Mg Tablet, 500 MG PO BID for 9 Days, #18 TAB Prov:YOLI ZAMORANO. 12/19/18 Amoxicillin* (Amoxicillin*) 500 Mg Cap, 1000 MG PO BID for 9 Days, #18 CAP Prov:YOLI ZAMORANO. 12/19/18 Metformin* (Glucophage*) 500 Mg Tab, 500 MG PO BID WITH MEALS for 30 Days, #60 TAB Prov:YOLI ZAMORANO. 12/19/18 Allergies Allergies: Coded Allergies: No Known Allergy (Unverified , 01/16/19) PMhx/Soc History of Surgery: Yes (cataract) Anesthesia Reaction: No Hx Neurological Disorder: No Hx Respiratory Disorders: Yes (TB) Hx Cardiac Disorders: No Hx Psychiatric Problems: No Hx Miscellaneous Medical Probl: Yes (Graves disease,DM, Hypothyroidism) Hx Alcohol Use: No Hx Substance Use: No Hx Tobacco Use: No Smoking Status: Never smoker FmHx Family History: diabetes Physical Exam Vitals Vital Signs Date Temp Pulse Resp B/P (MAP) Pulse Ox O2 O2 Flow FiO2 Time Delivery Rate 01/16/19 99.7 102 18 110/62 Room Air 13:33 (78) 01/16/19 93 17 121/54 99 12:26 (76) Physical Exam Const: No acute distress Head: Atraumatic Eyes: Normal Conjunctiva ENT: Normal External Ears, Nose and Mouth. Neck: Full range of motion. No meningismus. Resp: Clear to auscultation bilaterally Cardio: Regular rate and rhythm, no murmurs Abd: Soft, non tender, non distended. Normal bowel sounds Skin: No petechiae or rashes Back: No midline or flank tenderness Ext: No cyanosis, or edema Neur: Awake and alert Psych: Normal Mood and Affect Result Diagram: 01/16/19 1245 01/16/19 1245 Results 24 hrs Laboratory Tests Test 01/16/19 12:45 White Blood Count 7.7 10^3/ul Red Blood Count 3.93 10^6/ul Hemoglobin 9.4 g/dl Hematocrit 30.8 % Mean Corpuscular Volume 78.4 fl Mean Corpuscular Hemoglobin 23.9 pg Mean Corpuscular Hemoglobin Concent 30.5 g/dl Red Cell Distribution Width 17.2 % Platelet Count 224 10^3/UL Mean Platelet Volume 9.6 fl Immature Granulocytes % 0.900 % Neutrophils % 58.8 % Lymphocytes % 17.7 % Monocytes % 22.2 % Eosinophils % 0.3 % Basophils % 0.1 % Nucleated Red Blood Cells % 0.0 /100WBC Immature Granulocytes # 0.070 10^3/ul Neutrophils # 4.5 10^3/ul Lymphocytes # 1.4 10^3/ul Monocytes # 1.7 10^3/ul Eosinophils # 0.0 10^3/ul Basophils # 0.0 10^3/ul Nucleated Red Blood Cells # 0.0 10^3/ul Sodium Level 131 mmol/L Potassium Level 5.4 mmol/L Chloride Level 92 mmol/L Carbon Dioxide Level 30 mmol/L Anion Gap 9 Blood Urea Nitrogen 16 mg/dl Creatinine 0.70 mg/dl Est Glomerular Filtrat Rate mL/min > 60 mL/min Glucose Level 171 mg/dl Calcium Level 10.7 mg/dl Total Bilirubin 0.5 mg/dl Direct Bilirubin 0.00 mg/dl Indirect Bilirubin 0.5 mg/dl Aspartate Amino Transf (AST/SGOT) 63 IU/L Alanine Aminotransferase (ALT/SGPT) 29 IU/L Alkaline Phosphatase 162 IU/L Troponin I < 0.012 ng/ml Total Protein 7.4 g/dl Albumin 3.2 g/dl Globulin 4.20 g/dl Albumin/Globulin Ratio 0.76 Thyroid Stimulating Hormone (TSH) < 0.015 MIU/L Free Thyroxine 6.54 ng/dl Current Medications Medications Dose Sig/Ishmael Start Time Status Last (Trade) Ordered Route PRN Stop Time Admin Dose Reason Admin Sodium 1,000 ml @ Q1H STAT 01/16/19 DC 01/16/19 Chloride 1,000 mls/hr IV 12:12 12:48 01/16/19 13:11 Aspirin 162 mg ONCE STAT 01/16/19 DC 01/16/19 (Aspirin) PO 14:21 14:53 01/16/19 14:23 1 inch ONCE STAT 01/16/19 DC 01/16/19 Nitroglycerin TD 14:21 14:56 01/16/19 14:23 (Nitroglyceri n 2% Oint) 1 tab Q5M UP TO 3 01/16/19 Nitroglycerin DOSES PRN 14:30 SL .CHEST (Nitroglyceri PAIN n (Sl Tab) 0.4 Mg) 300 mg ONCE ONCE 01/16/19 DC Propylthioura PO 15:30 cil (Ptu) 01/16/19 15:31 Ondansetron 4 mg ER BRIDGE 01/16/19 DC HCl (Zofran PRN IV 15:30 Inj) NAUSEA/VOMITI 01/16/19 16:49 NG 650 mg ER BRIDGE 01/16/19 Acetaminophen PRN PO 15:30 (Tylenol .MILD PAIN 01/17/19 15:29 Tab) 1-3 OR TEMP Metformin 500 mg BID PO 01/16/19 HCl 21:00 (Glucophage) Methimazole 30 mg BID PO 01/16/19 (Tapazole) 21:00 Ondansetron 4 mg DAILY PRN 01/16/19 HCl (Zofran PO NAUSEA 16:30 Tab) AND/OR VOMITING 40 mg AC 01/17/19 Pantoprazole BREAKFAST 07:00 (Protonix PO Tab) Propranolol 40 mg TID PO 01/16/19 HCl 21:00 (Inderal) 1 ea NOTE XX 01/16/19 Miscellaneous 17:00 Information Glucose 15 gm Q15M PRN 01/16/19 (Glutose) PO DECREASED 17:00 GLUCOSE Glucose 22.5 gm Q15M PRN 01/16/19 (Glutose) PO DECREASED 17:00 GLUCOSE Dextrose 25 ml Q15M PRN 01/16/19 (D50w IV DECREASED 17:00 Syringe) GLUCOSE Dextrose 50 ml Q15M PRN 01/16/19 (D50w IV DECREASED 17:00 Syringe) GLUCOSE Glucagon 1 mg Q15M PRN 01/16/19 (Glucagen) IM DECREASED 17:00 GLUCOSE Glucose 15 gm Q15M PRN 01/16/19 (Glutose) BUCCAL 17:00 DECREASED GLUCOSE Procedures/MDM EKG read by me: Rate/Rhythm: Regular rate and rhythm at a normal rate Intervals: Normal Impression: No evidence of ischemia or arrhythmia Chest x-ray read by radiology. Patient is a 58-year-old male with diabetes and thyroid disease who presents for chest pain and palpitations. The patient was found to have severely elevated free T4 showing acute hyperthyroidism. The patient has chest pain and weakness as well. The patient was given aspirin, nitroglycerin, and propylthiouracil. I spoke with Dr. Alvarado for recommendation for the proper thiouracil. The patient will be admitted to a telemetry inpatient bed under the care of the panel team. I believe his symptoms are related to the severe hyperthyroidism and will need treatment. Departure Diagnosis: Primary Impression: Hyperthyroidism Additional Impressions: Acute weakness Chest pain Chest pain type: unspecified Qualified Codes: R07.9 - Chest pain, unspecified Condition: LAURYN Sauceda MD Jan 16, 2019 17:00
--- NOTE | 2019-01-16 17:03 | HP ---
Date/Time of Note Date/Time of Note DATE: 01/16/19 TIME: 16:21 Assessment/Plan VTE Prophylaxis Pharmacological prophylaxis: heparin Lines/Catheters IV [facility] Saline Lock Assessment/Plan Hospital Course 58 yo male with history of hyperthyroidism (on methimazole and propranolol), DMII, anemia presents with MANDEL. Found to have continued hyperthyroidism and now with hyponatremia Dyspena on exertion: - Recent TTE showed normal cardiac function so doubt due to cardiomyopathy - Anemia certainly playing a role - Palpitations not helping Anemia: - Recheck iron stores Hyperthyroid: - Continue methimazole and proprarnolol. - Dr Alvarado to consult DMII: - Can continue metformin Hyponatremia: - Unclear etioloyg. Appears clinically euvolemic. Check urine studies Result Diagram: 01/16/19 1245 01/16/19 1245 Results 24hrs Laboratory Tests Test 01/16/19 12:45 White Blood Count 7.7 Red Blood Count 3.93 L Hemoglobin 9.4 L Hematocrit 30.8 L Mean Corpuscular Volume 78.4 L Mean Corpuscular Hemoglobin 23.9 L Mean Corpuscular Hemoglobin Concent 30.5 L Red Cell Distribution Width 17.2 H Platelet Count 224 # Mean Platelet Volume 9.6 Immature Granulocytes % 0.900 H Neutrophils % 58.8 Lymphocytes % 17.7 Monocytes % 22.2 H Eosinophils % 0.3 Basophils % 0.1 Nucleated Red Blood Cells % 0.0 Immature Granulocytes # 0.070 H Neutrophils # 4.5 Lymphocytes # 1.4 Monocytes # 1.7 H Eosinophils # 0.0 Basophils # 0.0 Nucleated Red Blood Cells # 0.0 Sodium Level 131 L Potassium Level 5.4 H Chloride Level 92 L Carbon Dioxide Level 30 Anion Gap 9 Blood Urea Nitrogen 16 Creatinine 0.70 Est Glomerular Filtrat Rate mL/min > 60 Glucose Level 171 Calcium Level 10.7 H Total Bilirubin 0.5 Direct Bilirubin 0.00 Indirect Bilirubin 0.5 Aspartate Amino Transf (AST/SGOT) 63 H Alanine Aminotransferase (ALT/SGPT) 29 Alkaline Phosphatase 162 H Troponin I < 0.012 Total Protein 7.4 Albumin 3.2 L Globulin 4.20 H Albumin/Globulin Ratio 0.76 Thyroid Stimulating Hormone (TSH) < 0.015 L Free Thyroxine 6.54 H HPI/ROS Admit Date/Time Admit Date/Time Hx of Present Illness 58 yo male with h/o hyperthyroidism, DMII, anemia presnet tone SOB Patient recently admitted for hyperthyroidism. Discharged on propranolol and methimazole which he has been taking. Today presents complaing of dyspena on exertenion, worse over past few days. Feels palpitations as well. Reported these symptoms to his doctor today who referred him to the ER via ambulance. He was recently admitted for similar symptoms. Had fevers of unknown origin despite extensive workup. Seems this problem has resolved ROS Constitutional: no complaints, improved Eyes: no complaints ENT: no complaints Respiratory: no complaints Cardiovascular: no complaints Gastrointestinal: no complaints Genitourinary: no complaints Musculoskeletal: no complaints Skin: no complaints Neurologic: no complaints Endocrine: no complaints Lymphatic: no complaints Psychological: no complaints, nl mood/affect Immunologic: no complaints PMH/Family/Social Past Medical History Hyperthyroidism Anemia DMII Medications Current Medications Nitroglycerin (Nitroglycerin (Sl Tab) 0.4 Mg) 1 tab Q5M UP TO 3 DOSES PRN SL .CHEST PAIN; Start 01/16/19 at 14:30 Ondansetron HCl (Zofran Inj) 4 mg ER BRIDGE PRN IV NAUSEA/VOMITING; Start at 15:30; Stop 01/17/19 at 15:29 Acetaminophen (Tylenol Tab) 650 mg ER BRIDGE PRN PO .MILD PAIN 1-3 OR TEMP; Start 01/16/19 at 15:30; Stop 01/17/19 at 15:29 Coded Allergies: No Known Allergy (Unverified , 01/16/19) Past Surgical History Past Surgical Hx: noncontributory Family History Significant Family History: no pertinent family hx Social History Alcohol Use: none Smoking Status: Never smoker Drug Use: none Exam/Review of Systems Vital Signs Vitals Vital Signs Date Temp Pulse Resp B/P (MAP) Pulse Ox O2 O2 Flow FiO2 Time Delivery Rate 01/16/19 99.7 102 18 110/62 Room Air 13:33 (78) 01/16/19 99 12:26 Exam Constitutional: alert, oriented, well developed Psych: no complaints, nl mood/affect Head: normocephalic, atraumatic Eyes: nl conjunctiva, EOMI, nl lids, nl sclera, PERRL ENMT: nl external ears & nose, nl lips & teeth, nl nasal mucosa & septum Neck: supple, non-tender Respiratory: clear to auscultation, normal air movement Cardiovascular: regular rate and rhythm, nl pulses Gastrointestinal: soft, nl liver, spleen, non-tender Musculoskeletal: nl extremities to inspection Extremities: normal pulses Neurological: LINEN AIDE II-XII intact, nl mental status, nl speech, nl strength Skin: nl turgor; No rash or lesions Lymph: nl lymph nodes KIRK AREVALO MD Jan 16, 2019 17:03
--- NOTE | 2019-01-16 17:21 | CONS ---
Assessment/Plan Assessment/Plan Problems: (1) Graves' disease with exophthalmos Status: Chronic Comment: His blood test certainly do not look like he is been taking his medications although the patient and his family are very firm and saying that he has been up-to-date with his medications. Regardless this is 1 of multiple admissions for thyrotoxicosis and as such she would be appropriate for doing something more definitive. I have discussed with the patient and his family the concept of partial thyroidectomy versus radioactive iodine ablation. They are in favor of radioactive iodine ablation. To do that I need a thyroid uptake and scan to be completed which will try and get ordered which will then be followed by the ablation. If for some reason we can do this then Juan need to take him to surgery. (2) Diabetes mellitus type 2 in nonobese Status: Chronic Comment: At this time adequate glycemic control Consultation Date/Type/Reason Admit Date/Time January 16, 2019 Date of Consultation: Jan 16, 2019 Type of Consult Endocrinology Reason for Consultation Chronic hyperthyroidism with marked thyrotoxicosis Requesting Provider: YOLI ZAMORANO Date/Time of Note DATE: 01/16/19 TIME: 17:15 Hx of Present Illness 58-year-old [place] male readmitted to the hospital again with thyrotoxicosis. He been seen in consultation previously and actually has a very long history of several years of being on methimazole. He has recurred. The patient's family reports he is taking his methimazole is 10 mg pills 3 pills twice a day regularly. The patient at this time is again quite thyrotoxic. Does have some modest evidence of exophthalmos. No evidence at this time of thyroid storm. In other words he is not have fever he is not having uncontrolled palpitations he is not having altered mental status he is not having seizures Constitutional: poor po (Difficulty gaining weight) Eyes: no complaints Respiratory: no complaints Cardiovascular: palpitations Gastrointestinal: no complaints Genitourinary: no complaints Musculoskeletal: no complaints Skin: no complaints Neurologic: no complaints Past Medical History Medical History: diabetes, high cholesterol, hypertension, hyperthyroid, other (Exophthalmos) Home Meds Reported Medications Ondansetron Hcl* (Zofran*) 4 Mg Tablet, 4 MG PO DAILY PRN for NAUSEA AND OR VOMITING, TAB 01/16/19 Simvastatin* (Zocor*) 20 Mg Tablet, 20 MG PO QHS, #30 TAB 01/16/19 Methimazole* (Methimazole*) 10 Mg Tablet, 30 MG PO BID, TAB 01/16/19 Metformin* (Glucophage*) 500 Mg Tab, 500 MG PO BID, #90 TAB 01/16/19 Lisinopril* (Lisinopril*) 2.5 Mg Tablet, 2.5 MG PO DAILY, #30 TAB 01/16/19 Propranolol Hcl* (Propranolol Hcl*) 40 Mg Tablet, 40 MG PO TID, TAB 01/16/19 Docusate Sodium* (Colace*) 100 Mg Capsule, 100 MG PO BID PRN for CONSTIPATION, #60 CAP 01/16/19 Pantoprazole* (Pantoprazole*) 40 Mg Tablet.dr, 40 MG PO AC BREAKFAST, TAB 01/16/19 Discontinued Reported Medications Glipizide* (Glipizide*) 5 Mg Tablet, 5 MG PO BID, TAB 11/23/18 Discontinued Scripts Insulin Glargine* (Lantus*) 100 Unit/Ml Soln, 13 UNIT SC DAILY, #4 VIAL Prov:HANNAH ZAMORANOCristopher . 12/19/18 Methimazole* (Methimazole*) 10 Mg Tablet, 30 MG PO BID, #180 TAB Prov:HANNAH ZAMORANOCristopher . 12/19/18 Docusate Sodium* (Docusate Sodium*) 100 Mg Capsule, 100 MG PO Q12, #60 CAP [facility]. 12/19/18 Pantoprazole* (Pantoprazole*) 40 Mg Tablet.dr, 40 MG PO BID@,18, #50 TAB Prov:HANNAH ZAMORANOCristopher . 12/19/18 Propranolol Hcl* (Propranolol Hcl*) 40 Mg Tablet, 80 MG PO TID, #180 TAB 1 Refill Prov:HANNAH ZAMORANOCristopher . 12/19/18 Clarithromycin* (Clarithromycin*) 500 Mg Tablet, 500 MG PO BID for 9 Days, #18 TAB Prov:HANNAH ZAMORANOCristopher . 12/19/18 Amoxicillin* (Amoxicillin*) 500 Mg Cap, 1000 MG PO BID for 9 Days, #18 CAP Prov:LONAFRANCISCA WalkerAUDREY . 12/19/18 Metformin* (Glucophage*) 500 Mg Tab, 500 MG PO BID WITH MEALS for 30 Days, #60 TAB Prov:YOLI ZAMORANO 12/19/18 Medications Current Medications Nitroglycerin (Nitroglycerin (Sl Tab) 0.4 Mg) 1 tab Q5M UP TO 3 DOSES PRN SL .CHEST PAIN; Start 01/16/19 at 14:30 Acetaminophen (Tylenol Tab) 650 mg ER BRIDGE PRN PO .MILD PAIN 1-3 OR TEMP; Start 01/16/19 at 15:30; Stop 01/17/19 at 15:29 Metformin HCl (Glucophage) 500 mg BID PO ; Start 01/16/19 at 21:00 Ondansetron HCl (Zofran Tab) 4 mg DAILY PRN PO NAUSEA AND/OR VOMITING; Start 01/16/19 at 16:30 Pantoprazole (Protonix Tab) 40 mg AC BREAKFAST PO ; Start 01/17/19 at 07:00 Propranolol HCl (Inderal) 40 mg TID PO ; Start 01/16/19 at 21:00 Miscellaneous Information 1 ea NOTE XX ; Start 01/16/19 at 17:00 Glucose (Glutose) 15 gm Q15M PRN PO DECREASED GLUCOSE; Start 01/16/19 at 17:00 Glucose (Glutose) 22.5 gm Q15M PRN PO DECREASED GLUCOSE; Start 01/16/19 at 17:00 Dextrose (D50w Syringe) 25 ml Q15M PRN IV DECREASED GLUCOSE; Start 01/16/19 at 17:00 Dextrose (D50w Syringe) 50 ml Q15M PRN IV DECREASED GLUCOSE; Start 01/16/19 at 17:00 Glucagon (Glucagen) 1 mg Q15M PRN IM DECREASED GLUCOSE; Start 01/16/19 at 17:00 Glucose (Glutose) 15 gm Q15M PRN BUCCAL DECREASED GLUCOSE; Start 01/16/19 at 17:00 IV Flush (NS 3 ml) 3 ml PER PROTOCOL IV ; Start 01/16/19 at 17:30; Status UNV Heparin Sodium (Porcine) (Heparin (5000 Units/1ml)) 5,000 unit Q12 SC ; Start 01/16/19 at 21:00; Status UNV Methimazole (Tapazole) 40 mg BID PO ; Start 01/16/19 at 21:00; Status UNV Propylthiouracil (Ptu) 300 mg ONCE ONCE PO ; Start 01/16/19 at 22:00; Stop 01/16/19 at 22:01; Status UNV Allergies: Coded Allergies: No Known Allergy (Unverified , 01/16/19) Past Surgical History Past Surgical Hx: noncontributory Family History Significant Family History: no pertinent family hx Social History Alcohol Use: none Smoking Status: Never smoker Drug Use: none Exam/Review of Systems Exam Vitals Vital Signs Date Temp Pulse Resp B/P (MAP) Pulse Ox O2 O2 Flow FiO2 Time Delivery Rate 01/16/19 98.8 92 18 97/57 (70) 97 Room Air 17:00 Constitutional: alert, oriented Head: normocephalic, atraumatic Eyes: nl conjunctiva, EOMI, nl lids, nl sclera, PERRL, other (Exophthalmos 3 mm and left 4 mm on the right) ENMT: nl external ears & nose, nl lips & teeth, nl nasal mucosa & septum, mucosa pink and moist Neck: thyromegaly (Smooth without nodules but enlarged) Respiratory: clear to auscultation, normal air movement Cardiovascular: regular rate and rhythm, nl pulses Gastrointestinal: soft, nl liver, spleen, non-tender 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, nl mental status, nl speech Results Result Diagram: 01/16/19 1245 01/16/19 1245 Results 24hrs Laboratory Tests Test 01/16/19 12:45 White Blood Count 7.7 Red Blood Count 3.93 L Hemoglobin 9.4 L Hematocrit 30.8 L Mean Corpuscular Volume 78.4 L Mean Corpuscular Hemoglobin 23.9 L Mean Corpuscular Hemoglobin Concent 30.5 L Red Cell Distribution Width 17.2 H Platelet Count 224 # Mean Platelet Volume 9.6 Immature Granulocytes % 0.900 H Neutrophils % 58.8 Lymphocytes % 17.7 Monocytes % 22.2 H Eosinophils % 0.3 Basophils % 0.1 Nucleated Red Blood Cells % 0.0 Immature Granulocytes # 0.070 H Neutrophils # 4.5 Lymphocytes # 1.4 Monocytes # 1.7 H Eosinophils # 0.0 Basophils # 0.0 Nucleated Red Blood Cells # 0.0 Sodium Level 131 L Potassium Level 5.4 H Chloride Level 92 L Carbon Dioxide Level 30 Anion Gap 9 Blood Urea Nitrogen 16 Creatinine 0.70 Est Glomerular Filtrat Rate mL/min > 60 Glucose Level 171 Calcium Level 10.7 H Total Bilirubin 0.5 Direct Bilirubin 0.00 Indirect Bilirubin 0.5 Aspartate Amino Transf (AST/SGOT) 63 H Alanine Aminotransferase (ALT/SGPT) 29 Alkaline Phosphatase 162 H Troponin I < 0.012 Total Protein 7.4 Albumin 3.2 L Globulin 4.20 H Albumin/Globulin Ratio 0.76 Thyroid Stimulating Hormone (TSH) < 0.015 L Free Thyroxine 6.54 H Medications Medication Current Medications Nitroglycerin (Nitroglycerin (Sl Tab) 0.4 Mg) 1 tab Q5M UP TO 3 DOSES PRN SL .CHEST PAIN; Start 01/16/19 at 14:30 Acetaminophen (Tylenol Tab) 650 mg ER BRIDGE PRN PO .MILD PAIN 1-3 OR TEMP; Start 01/16/19 at 15:30; Stop 01/17/19 at 15:29 Metformin HCl (Glucophage) 500 mg BID PO ; Start 01/16/19 at 21:00 Ondansetron HCl (Zofran Tab) 4 mg DAILY PRN PO NAUSEA AND/OR VOMITING; Start 01/16/19 at 16:30 Pantoprazole (Protonix Tab) 40 mg AC BREAKFAST PO ; Start 01/17/19 at 07:00 Propranolol HCl (Inderal) 40 mg TID PO ; Start 01/16/19 at 21:00 Miscellaneous Information 1 ea NOTE XX ; Start 01/16/19 at 17:00 Glucose (Glutose) 15 gm Q15M PRN PO DECREASED GLUCOSE; Start 01/16/19 at 17:00 Glucose (Glutose) 22.5 gm Q15M PRN PO DECREASED GLUCOSE; Start 01/16/19 at 17:00 Dextrose (D50w Syringe) 25 ml Q15M PRN IV DECREASED GLUCOSE; Start 01/16/19 at 17:00 Dextrose (D50w Syringe) 50 ml Q15M PRN IV DECREASED GLUCOSE; Start 01/16/19 at 17:00 Glucagon (Glucagen) 1 mg Q15M PRN IM DECREASED GLUCOSE; Start 01/16/19 at 17:00 Glucose (Glutose) 15 gm Q15M PRN BUCCAL DECREASED GLUCOSE; Start 01/16/19 at 17:00 IV Flush (NS 3 ml) 3 ml PER PROTOCOL IV ; Start 01/16/19 at 17:30; Status UNV Heparin Sodium (Porcine) (Heparin (5000 Units/1ml)) 5,000 unit Q12 SC ; Start 01/16/19 at 21:00; Status UNV Methimazole (Tapazole) 40 mg BID PO ; Start 01/16/19 at 21:00; Status UNV Propylthiouracil (Ptu) 300 mg ONCE ONCE PO ; Start 01/16/19 at 22:00; Stop 01/16/19 at 22:01; Status UNV ANA GARCIA MD Jan 16, 2019 17:21
[2019-01-16] MEDS ORDERED: NACL 0.9% 3 ML SYG IV SCH (17:30)
[2019-01-16 18:05] VITALS: Ht 185.4 cm; Wt 75.7 kg
[2019-01-16 18:11] VITALS: BP 99/57; PULSE 90; RESP 18
[2019-01-16 19:41] VITALS: BP 110/62; PULSE 100; RESP 19
[2019-01-16 20:00] VITALS: PULSE 98
[2019-01-16] MEDS ORDERED: CHOLESTYRAMINE (LIGHT) 4 GM PACKET PO ONE (21:00)
[2019-01-16] MEDS ORDERED: METHIMAZOLE 5 MG TAB PO SCH (21:00)
[2019-01-16] MEDS: PROPRANOLOL 40 MG TAB PO SCH (21:25)
[2019-01-16] MEDS: metFORMIN 500 MG TAB PO SCH (21:26)
[2019-01-16] MEDS: METHIMAZOLE 5 MG TAB PO SCH (21:27)
[2019-01-16] MEDS: HEPARIN 5,000 UNIT/1 ML VIAL SC SCH (22:03)
[2019-01-17] VITALS (13 sets, daily range): BP systolic 95–118; BP diastolic 53–69; PULSE 87–107; RESP 16–19
[2019-01-17] MEDS: PANTOPRAZOLE (EC) 40 MG TAB PO SCH (07:24)
[2019-01-17] MEDS: metFORMIN 500 MG TAB PO SCH ×2 (08:41→21:42)
[2019-01-17] MEDS: CHOLESTYRAMINE (LIGHT) 4 GM PACKET PO SCH (08:41)
[2019-01-17] MEDS: METHIMAZOLE 5 MG TAB PO SCH ×2 (08:42→21:42)
[2019-01-17] MEDS: HEPARIN 5,000 UNIT/1 ML VIAL SC SCH ×2 (08:53→21:58)
[2019-01-17] MEDS: PROPRANOLOL 40 MG TAB PO SCH ×3 (09:00→21:43)
--- NOTE | 2019-01-17 11:57 | PN ---
Date/Time of Note Date/Time of Note DATE: 01/17/19 TIME: 11:55 Assessment/Plan VTE Prophylaxis Risk score (from Nsg)>0 risk: 1 SCD applied (from Nsg): Yes Pharmacological prophylaxis: heparin Lines/Catheters IV Catheter Type (from Nrs): Saline Lock Assessment/Plan Hospital Course 58 yo male with history of hyperthyroidism (on methimazole and propranolol), DMII, anemia presents with MANDEL. Found to have continued hyperthyroidism and now with hyponatremia Hyperthyroid: - Plan for ablation vs thyroidectomy per Dr Alvarado - Continue methimazole and proprarnolol. Dyspena on exertion: - Recent TTE showed normal cardiac function so doubt due to cardiomyopathy - Anemia certainly playing a role - Palpitations not helping Anemia: - Iron stores adequate DMII: - Can continue metformin - Start basal insulin Hyponatremia: - Unclear etiology. Appears clinically euvolemic. Await urine studies Discharge plan is pending management of hyperthyroidism. Can dc to self care when stable Result Diagram: 01/17/1960501/17/19605 Results 24hrs Laboratory Tests Test 01/16/19 12:45 01/16/19 19:21 01/17/19 00:28 01/17/19 06:02 White Blood Count 7.7 Red Blood Count 3.93 L Hemoglobin 9.4 L Hematocrit 30.8 L Mean Corpuscular 78.4 L Volume Mean Corpuscular 23.9 L Hemoglobin Mean Corpuscular 30.5 L Hemoglobin Concent Red Cell 17.2 H Distribution Width Platelet Count 224 # Mean Platelet Volume 9.6 Immature 0.900 H Granulocytes % Neutrophils % 58.8 Lymphocytes % 17.7 Monocytes % 22.2 H Eosinophils % 0.3 Basophils % 0.1 Nucleated Red Blood 0.0 Cells % Immature 0.070 H Granulocytes # Neutrophils # 4.5 Lymphocytes # 1.4 Monocytes # 1.7 H Eosinophils # 0.0 Basophils # 0.0 Nucleated Red Blood 0.0 Cells # Sodium Level 131 L Potassium Level 5.4 H Chloride Level 92 L Carbon Dioxide Level 30 Anion Gap 9 Blood Urea Nitrogen 16 Creatinine 0.70 Est Glomerular > 60 Filtrat Rate mL/min Glucose Level 171 Calcium Level 10.7 H Total Bilirubin 0.5 Direct Bilirubin 0.00 Indirect Bilirubin 0.5 Aspartate Amino 63 H Transf (AST/SGOT) Alanine 29 Aminotransferase (AL T/SGPT) Alkaline Phosphatase 162 H Troponin I < 0.012 < 0.012 < 0.012 Total Protein 7.4 Albumin 3.2 L Globulin 4.20 H Albumin/Globulin 0.76 Ratio Thyroid Stimulating < 0.015 L Hormone (TSH) Free Thyroxine 6.54 H Creatine Kinase < 20 L < 20 L Creatine Kinase Index Creatinine Kinase MB < 0.22 < 0.22 (Mass) Iron Level 23 L Total Iron Binding 184 L Capacity Percent Iron 13 L Saturation Ferritin 549.0 H Test 01/17/19 06:06 01/17/19 08:40 White Blood Count 5.5 # Red Blood Count 3.53 L Hemoglobin 8.6 L Hematocrit 27.3 L Mean Corpuscular 77.3 L Volume Mean Corpuscular 24.4 L Hemoglobin Mean Corpuscular 31.5 L Hemoglobin Concent Red Cell 17.4 H Distribution Width Platelet Count 202 Mean Platelet Volume 10.0 Immature 0.500 H Granulocytes % Neutrophils % Segmented 48 Neutrophils % (Manual) Lymphocytes % Lymphocytes % 16 (Manual) Reactive Lymphocytes 15 H % (Manual) Monocytes % Monocytes % (Manual) 21 H Nucleated Red Blood 0.0 Cells % Immature 0.030 Granulocytes # Neutrophils # Lymphocytes (Manual) 0.8 Lymphocytes # Reactive Lymphocytes 0.8 H # Monocytes # Monocytes # (Manual) 1.1 H Platelet Estimate NORMAL Polychromasia 2+ Anisocytosis 1+ Microcytosis 1+ Spherocytes 1+ Sodium Level 131 L Potassium Level 4.1 Chloride Level 94 L Carbon Dioxide Level 31 Anion Gap 6 Blood Urea Nitrogen 10 Creatinine 0.59 L Est Glomerular > 60 Filtrat Rate mL/min Glucose Level 177 Hemoglobin A1c 6.3 H Calcium Level 10.0 Total Bilirubin 0.4 Direct Bilirubin 0.00 Indirect Bilirubin 0.4 Aspartate Amino 55 H Transf (AST/SGOT) Alanine 29 Aminotransferase (AL T/SGPT) Alkaline Phosphatase 138 H Total Protein 6.7 Albumin 2.8 L Globulin 3.90 H Albumin/Globulin 0.71 Ratio Free Thyroxine 5.62 H Free 5.66 H Triiodothyronine (T3) pg/mL Bedside Glucose 252 H Subjective 24 Hr Interval Summary Free Text/Dictation No change to clinical status CA excluded with negative troponins No major events on telemetry Awaiting thyroid management plan Exam/Review of Systems Exam Vitals Vital Signs Date Temp Pulse Resp B/P (MAP) Pulse Ox O2 O2 Flow FiO2 Time Delivery Rate 01/17/19 98.7 89 18 98/53 (68) 18 Room Air 10:51 Intake and Output 01/16/19 01/16/19 01/17/19 1515:00 23:00 07:00 IntakeIntake Total 500 ml BalanceBalance 500 ml Constitutional: alert, oriented, well developed Psych: no complaints, nl mood/affect Head: normocephalic, atraumatic Eyes: nl conjunctiva, EOMI, nl lids, nl sclera, PERRL ENMT: nl external ears & nose, nl lips & teeth, nl nasal mucosa & septum Neck: supple, non-tender Respiratory: clear to auscultation, normal air movement Cardiovascular: regular rate and rhythm, nl pulses Gastrointestinal: soft, nl liver, spleen, non-tender Musculoskeletal: nl extremities to inspection, nl gait and stance Extremities: normal pulses 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, nl mental status, nl speech, nl strength Skin: nl turgor; No rash or lesions Lymph: nl lymph nodes Results Results 24hrs Laboratory Tests Test 01/16/19 12:45 01/16/19 19:21 01/17/19 00:28 01/17/19 06:02 White Blood Count 7.7 Red Blood Count 3.93 L Hemoglobin 9.4 L Hematocrit 30.8 L Mean Corpuscular 78.4 L Volume Mean Corpuscular 23.9 L Hemoglobin Mean Corpuscular 30.5 L Hemoglobin Concent Red Cell 17.2 H Distribution Width Platelet Count 224 # Mean Platelet Volume 9.6 Immature 0.900 H Granulocytes % Neutrophils % 58.8 Lymphocytes % 17.7 Monocytes % 22.2 H Eosinophils % 0.3 Basophils % 0.1 Nucleated Red Blood 0.0 Cells % Immature 0.070 H Granulocytes # Neutrophils # 4.5 Lymphocytes # 1.4 Monocytes # 1.7 H Eosinophils # 0.0 Basophils # 0.0 Nucleated Red Blood 0.0 Cells # Sodium Level 131 L Potassium Level 5.4 H Chloride Level 92 L Carbon Dioxide Level 30 Anion Gap 9 Blood Urea Nitrogen 16 Creatinine 0.70 Est Glomerular > 60 Filtrat Rate mL/min Glucose Level 171 Calcium Level 10.7 H Total Bilirubin 0.5 Direct Bilirubin 0.00 Indirect Bilirubin 0.5 Aspartate Amino 63 H Transf (AST/SGOT) Alanine 29 Aminotransferase (AL T/SGPT) Alkaline Phosphatase 162 H Troponin I < 0.012 < 0.012 < 0.012 Total Protein 7.4 Albumin 3.2 L Globulin 4.20 H Albumin/Globulin 0.76 Ratio Thyroid Stimulating < 0.015 L Hormone (TSH) Free Thyroxine 6.54 H Creatine Kinase < 20 L < 20 L Creatine Kinase Index Creatinine Kinase MB < 0.22 < 0.22 (Mass) Iron Level 23 L Total Iron Binding 184 L Capacity Percent Iron 13 L Saturation Ferritin 549.0 H Test 01/17/19 06:06 01/17/19 08:40 White Blood Count 5.5 # Red Blood Count 3.53 L Hemoglobin 8.6 L Hematocrit 27.3 L Mean Corpuscular 77.3 L Volume Mean Corpuscular 24.4 L Hemoglobin Mean Corpuscular 31.5 L Hemoglobin Concent Red Cell 17.4 H Distribution Width Platelet Count 202 Mean Platelet Volume 10.0 Immature 0.500 H Granulocytes % Neutrophils % Segmented 48 Neutrophils % (Manual) Lymphocytes % Lymphocytes % 16 (Manual) Reactive Lymphocytes 15 H % (Manual) Monocytes % Monocytes % (Manual) 21 H Nucleated Red Blood 0.0 Cells % Immature 0.030 Granulocytes # Neutrophils # Lymphocytes (Manual) 0.8 Lymphocytes # Reactive Lymphocytes 0.8 H # Monocytes # Monocytes # (Manual) 1.1 H Platelet Estimate NORMAL Polychromasia 2+ Anisocytosis 1+ Microcytosis 1+ Spherocytes 1+ Sodium Level 131 L Potassium Level 4.1 Chloride Level 94 L Carbon Dioxide Level 31 Anion Gap 6 Blood Urea Nitrogen 10 Creatinine 0.59 L Est Glomerular > 60 Filtrat Rate mL/min Glucose Level 177 Hemoglobin A1c 6.3 H Calcium Level 10.0 Total Bilirubin 0.4 Direct Bilirubin 0.00 Indirect Bilirubin 0.4 Aspartate Amino 55 H Transf (AST/SGOT) Alanine 29 Aminotransferase (AL T/SGPT) Alkaline Phosphatase 138 H Total Protein 6.7 Albumin 2.8 L Globulin 3.90 H Albumin/Globulin 0.71 Ratio Free Thyroxine 5.62 H Free 5.66 H Triiodothyronine (T3) pg/mL Bedside Glucose 252 H Medications Medication Current Medications Nitroglycerin (Nitroglycerin (Sl Tab) 0.4 Mg) 1 tab Q5M UP TO 3 DOSES PRN SL .CHEST PAIN; Start 01/16/19 at 14:30 Metformin HCl (Glucophage) 500 mg BID PO Last administered on 01/17/19at 08:41; Admin Dose 500 MG; Start 01/16/19 at 21:00 Ondansetron HCl (Zofran Tab) 4 mg DAILY PRN PO NAUSEA AND/OR VOMITING; Start 01/16/19 at 16:30 Pantoprazole (Protonix Tab) 40 mg AC BREAKFAST PO Last administered on 01/17/19at 07:24; Admin Dose 40 MG; Start 01/17/19 at 07:00 Propranolol HCl (Inderal) 40 mg TID PO Last administered on 01/16/19at 21:25; Admin Dose 40 MG; Start 01/16/19 at 21:00 Miscellaneous Information 1 ea NOTE XX ; Start 01/16/19 at 17:00 Glucose (Glutose) 15 gm Q15M PRN PO DECREASED GLUCOSE; Start 01/16/19 at 17:00 Glucose (Glutose) 22.5 gm Q15M PRN PO DECREASED GLUCOSE; Start 01/16/19 at 17:00 Dextrose (D50w Syringe) 25 ml Q15M PRN IV DECREASED GLUCOSE; Start 01/16/19 at 17:00 Dextrose (D50w Syringe) 50 ml Q15M PRN IV DECREASED GLUCOSE; Start 01/16/19 at 17:00 Glucagon (Glucagen) 1 mg Q15M PRN IM DECREASED GLUCOSE; Start 01/16/19 at 17:00 Glucose (Glutose) 15 gm Q15M PRN BUCCAL DECREASED GLUCOSE; Start 01/16/19 at 17:00 IV Flush (NS 3 ml) 3 ml PER PROTOCOL IV ; Start 01/16/19 at 17:30 Heparin Sodium (Porcine) (Heparin (5000 Units/1ml)) 5,000 unit Q12 SC Last administered on 01/17/19at 08:53; Admin Dose 5,000 UNIT; Start 01/16/19 at 21:00 Methimazole (Tapazole) 40 mg BID PO Last administered on 01/17/19at 08:42; Admin Dose 40 MG; Start 01/16/19 at 21:00 Cholestyramine Resin (Questran Light) 4 gm DAILY PO Last administered on 01/17/19at 08:41; Admin Dose 4 GM; Start 01/17/19 at 09:00 Insulin Glargine (Lantus) 11 units DAILY@2000 SC ; Start 01/17/19 at 20:00 Insulin Aspart (Novolog Insulin Pen) NOVOLOG *MILD* ALGORITHM WITH MEALS BEDTIME SC ; Start 01/17/19 at 11:50 KIRK AREVALO MD Jan 17, 2019 11:57
[2019-01-17] MEDS: INSULIN ASPART [NOVOLOG] 3 ML PEN SC SCH ×3 (12:37→21:59)
--- NOTE | 2019-01-17 13:34 | CONS ---
Assessment/Plan Assessment/Plan Problems: (1) Graves' disease with exophthalmos Status: Chronic Comment: He is clinically improved. We needs the medicine to get him calm down a little bit and then sent in for radioactive iodine ablation. He needs to be off the medicines for 1 week prior to the scan and then I ablation. As such we will will do is get him cooled off and have him on medicines for 1 week. He will stop them in 7 days and then come in electively for the outpatient thyroid scan and uptake followed by immediate radioactive iodine ablation. This needs to be set up prior to be discharged. In terms of getting the thyroid hormones in his blood lower since thyroid hormone does go through enterohepatic circulation and thyroid hormone does stick to Questran and would therefore not be reabsorb were using Questran to gather up some of the thyroid hormone from the GI tract and essentially pull it out of his system. This is a trick we have used an overdose cases and also in thyroid storm cases. (2) Diabetes mellitus type 2 in nonobese Status: Chronic Comment: Adequate control Consultation Date/Type/Reason Admit Date/Time Jan 16, 2019 at 15:29 Initial Consult Date 01/16/19 Type of Consult Endocrinology Reason for Consultation Hyperthyroidism-Graves' disease Requesting Provider: YOLI ZAMORANO Date/Time of Note DATE: 01/17/19 TIME: 13:32 24 HR Interval Summary Free Text/Dictation Patient reports still somewhat tremulous Detailed Summary Endocrine: other (Tremulous, heat intolerance) Exam/Review of Systems Exam Vitals Vital Signs Date Temp Pulse Resp B/P (MAP) Pulse Ox O2 O2 Flow FiO2 Time Delivery Rate 01/17/19 87 12:21 01/17/19 98.7 18 98/53 (68) 18 Room Air 10:51 Intake and Output 01/16/19 01/16/19 01/17/19 1515:00 23:00 07:00 IntakeIntake Total 500 ml BalanceBalance 500 ml Constitutional: alert, oriented Eyes: other (His exophthalmos) Neck: thyromegaly (Move goiter) Cardiovascular: regular rate and rhythm, nl pulses Gastrointestinal: soft, nl liver, spleen, non-tender Results Result Diagram: 01/17/19 0606 01/17/19 0606 Results 24hrs Laboratory Tests Test 01/16/19 19:21 01/17/19 00:28 01/17/19 06:02 01/17/19 06:06 Creatine Kinase < 20 L < 20 L Creatine Kinase Index Creatinine Kinase MB < 0.22 < 0.22 (Mass) Troponin I < 0.012 < 0.012 Iron Level 23 L Total Iron Binding 184 L Capacity Percent Iron 13 L Saturation Ferritin 549.0 H White Blood Count 5.5 # Red Blood Count 3.53 L Hemoglobin 8.6 L Hematocrit 27.3 L Mean Corpuscular 77.3 L Volume Mean Corpuscular 24.4 L Hemoglobin Mean Corpuscular 31.5 L Hemoglobin Concent Red Cell 17.4 H Distribution Width Platelet Count 202 Mean Platelet Volume 10.0 Immature 0.500 H Granulocytes % Neutrophils % Segmented 48 Neutrophils % (Manual) Lymphocytes % Lymphocytes % 16 (Manual) Reactive Lymphocytes 15 H % (Manual) Monocytes % Monocytes % (Manual) 21 H Nucleated Red Blood 0.0 Cells % Immature 0.030 Granulocytes # Neutrophils # Lymphocytes (Manual) 0.8 Lymphocytes # Reactive Lymphocytes 0.8 H # Monocytes # Monocytes # (Manual) 1.1 H Platelet Estimate NORMAL Polychromasia 2+ Anisocytosis 1+ Microcytosis 1+ Spherocytes 1+ Sodium Level 131 L Potassium Level 4.1 Chloride Level 94 L Carbon Dioxide Level 31 Anion Gap 6 Blood Urea Nitrogen 10 Creatinine 0.59 L Est Glomerular > 60 Filtrat Rate mL/min Glucose Level 177 Hemoglobin A1c 6.3 H Calcium Level 10.0 Total Bilirubin 0.4 Direct Bilirubin 0.00 Indirect Bilirubin 0.4 Aspartate Amino 55 H Transf (AST/SGOT) Alanine 29 Aminotransferase (AL T/SGPT) Alkaline Phosphatase 138 H Total Protein 6.7 Albumin 2.8 L Globulin 3.90 H Albumin/Globulin 0.71 Ratio Free Thyroxine 5.62 H Free 5.66 H Triiodothyronine (T3) pg/mL Test 01/17/19 08:40 01/17/19 12:16 Bedside Glucose 252 H 250 H Medications Medication Current Medications Nitroglycerin (Nitroglycerin (Sl Tab) 0.4 Mg) 1 tab Q5M UP TO 3 DOSES PRN SL .CHEST PAIN; Start 01/16/19 at 14:30 Metformin HCl (Glucophage) 500 mg BID PO Last administered on 01/17/19at 08:41; Admin Dose 500 MG; Start 01/16/19 at 21:00 Ondansetron HCl (Zofran Tab) 4 mg DAILY PRN PO NAUSEA AND/OR VOMITING; Start 01/16/19 at 16:30 Pantoprazole (Protonix Tab) 40 mg AC BREAKFAST PO Last administered on 01/17/19at 07:24; Admin Dose 40 MG; Start 01/17/19 at 07:00 Propranolol HCl (Inderal) 40 mg TID PO Last administered on 01/16/19at 21:25; Admin Dose 40 MG; Start 01/16/19 at 21:00 Miscellaneous Information 1 ea NOTE XX ; Start 01/16/19 at 17:00 Glucose (Glutose) 15 gm Q15M PRN PO DECREASED GLUCOSE; Start 01/16/19 at 17:00 Glucose (Glutose) 22.5 gm Q15M PRN PO DECREASED GLUCOSE; Start 01/16/19 at 17:00 Dextrose (D50w Syringe) 25 ml Q15M PRN IV DECREASED GLUCOSE; Start 01/16/19 at 17:00 Dextrose (D50w Syringe) 50 ml Q15M PRN IV DECREASED GLUCOSE; Start 01/16/19 at 17:00 Glucagon (Glucagen) 1 mg Q15M PRN IM DECREASED GLUCOSE; Start 01/16/19 at 17:00 Glucose (Glutose) 15 gm Q15M PRN BUCCAL DECREASED GLUCOSE; Start 01/16/19 at 17:00 IV Flush (NS 3 ml) 3 ml PER PROTOCOL IV ; Start 01/16/19 at 17:30 Heparin Sodium (Porcine) (Heparin (5000 Units/1ml)) 5,000 unit Q12 SC Last administered on 01/17/19at 08:53; Admin Dose 5,000 UNIT; Start 01/16/19 at 21:00 Methimazole (Tapazole) 40 mg BID PO Last administered on 01/17/19at 08:42; Admin Dose 40 MG; Start 01/16/19 at 21:00 Cholestyramine Resin (Questran Light) 4 gm DAILY PO Last administered on 01/17at 08:41; Admin Dose 4 GM; Start 01/17/19 at 09:00 Insulin Glargine (Lantus) 11 units DAILY@2000 SC ; Start 01/17/19 at 20:00 Insulin Aspart (Novolog Insulin Pen) NOVOLOG *MILD* ALGORITHM WITH MEALS BEDTIME SC Last administered on 01/17/19at 12:37; Admin Dose 3 UNIT; Start 01/17/19 at 11:50 ANA GARCIA MD Jan 17, 2019 13:34
[2019-01-17] MEDS ORDERED: CHOLESTYRAMINE (LIGHT) 4 GM PACKET PO ONE (15:00)
[2019-01-17] MEDS: INSULIN GLARGINE [LANTus] (100 UNITS/ML) SYG SC SCH (21:59)
[2019-01-18] VITALS (11 sets, daily range): BP systolic 97–119; BP diastolic 56–64; PULSE 86–103; RESP 18–21
[2019-01-18] MEDS: PANTOPRAZOLE (EC) 40 MG TAB PO SCH (06:12)
[2019-01-18] MEDS: INSULIN ASPART [NOVOLOG] 3 ML PEN SC SCH ×4 (07:50→20:27)
[2019-01-18] MEDS: CHOLESTYRAMINE (LIGHT) 4 GM PACKET PO SCH (08:35)
[2019-01-18] MEDS: METHIMAZOLE 5 MG TAB PO SCH ×2 (08:36→20:27)
[2019-01-18] MEDS: metFORMIN 500 MG TAB PO SCH ×2 (08:37→20:26)
[2019-01-18] MEDS: PROPRANOLOL 40 MG TAB PO SCH ×3 (08:38→20:26)
[2019-01-18] MEDS: HEPARIN 5,000 UNIT/1 ML VIAL SC SCH ×2 (08:43→20:42)
--- NOTE | 2019-01-18 17:10 | PN ---
Date/Time of Note Date/Time of Note DATE: 01/18/19 TIME: 17:07 Assessment/Plan VTE Prophylaxis Risk score (from Nsg)>0 risk: 2 SCD applied (from Nsg): Yes Pharmacological prophylaxis: heparin Lines/Catheters IV Catheter Type (from Nrsg): Saline Lock Assessment/Plan Assessment/Plan 58 yo male with history of hyperthyroidism (on methimazole and propranolol), DMII, anemia presents with MANDEL. Found to have continued hyperthyroidism and now with hyponatremia Hyperthyroid: - Plan for ablation vs thyroidectomy per Dr Alvarado, to be arranged prior to discharge. - Continue methimazole and propranolol. Dyspena on exertion: - Recent TTE showed normal cardiac function so doubt due to cardiomyopathy - Anemia certainly playing a role - Palpitations not helping Anemia: - Iron stores adequate DMII: - Can continue metformin - Start basal insulin Hyponatremia: - Unclear etiology. Appears clinically euvolemic. Await urine studies Discharge plan is pending management of hyperthyroidism. Can dc to self care when stable Result Diagram: 01/17/19 0601/17/19 06 Results 24hrs Laboratory Tests Test 01/17/19 17:25 01/17/19 21:40 01/18/19 01:44 01/18/19 05:40 Bedside Glucose 158 185 129 Free Thyroxine 5.64 H Free 7.32 H Triiodothyronine (T3) pg/mL Test 01/18/19 07:50 01/18/19 11:00 01/18/19 11:56 01/18/19 16:49 Bedside Glucose 94 127 150 Urine Osmolality 252 Urine Random Sodium 50 Subjective 24 Hr Interval Summary Free Text/Dictation No acute overnight events. Patient is [place]-speaking only. Exam/Review of Systems Exam Vitals Vital Signs Date Temp Pulse Resp B/P (MAP) Pulse Ox O2 O2 Flow FiO2 Time Delivery Rate 01/18/19 98.8 96 18 119/64 100 Room Air 15:31 (82) Intake and Output 01/17/19 01/17/19 01/18/19 1515:00 23:00 07:00 IntakeIntake Total 400 ml BalanceBalance 400 ml Exam Constitutional: alert, oriented, well developed Psych: no complaints, nl mood/affect Head: normocephalic, atraumatic Eyes: nl conjunctiva, nl lids, nl sclera ENMT: nl external ears & nose, nl lips & teeth, nl nasal mucosa & septum Neck: supple, non-tender Respiratory: clear to auscultation, normal air movement Cardiovascular: regular rate and rhythm, nl pulses Gastrointestinal: soft, nl liver, spleen, non-tender Musculoskeletal: nl extremities to inspection, nl gait and stance Extremities: normal pulses Skin: nl turgor; No rash or lesions Lymph: nl lymph nodes Results Results 24hrs Laboratory Tests Test 01/17/19 17:25 01/17/19 21:40 01/18/19 01:44 01/18/19 05:40 Bedside Glucose 158 185 129 Free Thyroxine 5.64 H Free 7.32 H Triiodothyronine (T3) pg/mL Test 01/18/19 07:50 01/18/19 11:00 01/18/19 11:56 01/18/19 16:49 Bedside Glucose 94 127 150 Urine Osmolality 252 Urine Random Sodium 50 Medications Medication Current Medications Nitroglycerin (Nitroglycerin (Sl Tab) 0.4 Mg) 1 tab Q5M UP TO 3 DOSES PRN SL .C HEST PAIN; Start 01/16/19 at 14:30 Metformin HCl (Glucophage) 500 mg BID PO Last administered on 01/18/19at 08:37; Admin Dose 500 MG; Start 01/16/19 at 21:00 Ondansetron HCl (Zofran Tab) 4 mg DAILY PRN PO NAUSEA AND/OR VOMITING; Start 01/16/19 at 16:30 Pantoprazole (Protonix Tab) 40 mg AC BREAKFAST PO Last administered on 01/18/19at 06:12; Admin Dose 40 MG; Start 01/17/19 at 07:00 Propranolol HCl (Inderal) 40 mg TID PO Last administered on 01/18/19at 12:25; Admin Dose 40 MG; Start 01/16/19 at 21:00 Miscellaneous Information 1 ea NOTE XX ; Start 01/16/19 at 17:00 Glucose (Glutose) 15 gm Q15M PRN PO DECREASED GLUCOSE; Start 01/16/19 at 17:00 Glucose (Glutose) 22.5 gm Q15M PRN PO DECREASED GLUCOSE; Start 01/16/19 at 17:00 Dextrose (D50w Syringe) 25 ml Q15M PRN IV DECREASED GLUCOSE; Start 01/16/19 at 17:00 Dextrose (D50w Syringe) 50 ml Q15M PRN IV DECREASED GLUCOSE; Start 01/16/19 at 17:00 Glucagon (Glucagen) 1 mg Q15M PRN IM DECREASED GLUCOSE; Start 01/16/19 at 17:00 Glucose (Glutose) 15 gm Q15M PRN BUCCAL DECREASED GLUCOSE; Start 01/16/19 at 17:00 IV Flush (NS 3 ml) 3 ml PER PROTOCOL IV ; Start 01/16/19 at 17:30 Heparin Sodium (Porcine) (Heparin (5000 Units/1ml)) 5,000 unit Q12 SC Last administered on 01/18/19at 08:43; Admin Dose 5,000 UNIT; Start 01/16/19 at 21:00 Methimazole (Tapazole) 40 mg BID PO Last administered on 01/18/19at 08:36; Admin Dose 40 MG; Start 01/16/19 at 21:00 Cholestyramine Resin (Questran Light) 4 gm DAILY PO Last administered on 01/18/19at 08:35; Admin Dose 4 GM; Start 01/17/19 at 09:00 Insulin Glargine (Lantus) 11 units DAILY@2000 SC Last administered on 01/17/19at 21:59; Admin Dose 11 UNITS; Start 01/17/19 at 20:00 Insulin Aspart (Novolog Insulin Pen) NOVOLOG *MILD* ALGORITHM WITH MEALS BEDTIME SC Last administered on 01/18/19at 16:52; Admin Dose 1 UNIT; Start 01/17/19 at 11:50 PURVI QUIGLEY MD Jan 18, 2019 17:09
--- NOTE | 2019-01-18 17:15 | CONS ---
Assessment/Plan Assessment/Plan Problems: (1) Graves' disease with exophthalmos Status: Chronic Comment: Patient is on ATD methimazole 40 mg BID. While this will eventually slow the production of thyroid hormone, patient could use a bit more beta blockade. I will increase propranolol to QID. Agree with plan to ablate. Would suggest not discharging patient until actual appointment set for radioactive iodine ablation. Consultation Date/Type/Reason Admit Date/Time Jan 16, 2019 at 15:29 Initial Consult Date 01/16/19 Type of Consult Endocrine Reason for Consultation Thyrotoxicosis Requesting Provider: YOLI ZAMORANO Date/Time of Note DATE: 01/18/19 TIME: 17:09 Patient seen at 12:30 24 HR Interval Summary Free Text/Dictation Patient still claims to be symptomatic ( although believe there is a bit of a language barrier) Exam/Review of Systems Exam Vitals Vital Signs Date Temp Pulse Resp B/P (MAP) Pulse Ox O2 O2 Flow FiO2 Time Delivery Rate 01/18/19 98.8 96 18 119/64 100 Room Air 15:31 (82) Intake and Output 01/17/19 01/17/19 01/18/19 1414:59 22:59 06:59 IntakeIntake Total 400 ml BalanceBalance 400 ml Constitutional: alert Eyes: other (exopthalmos ( mild)) Neck: supple, thyromegaly Respiratory: clear to auscultation Cardiovascular: other (sinus tachycardia) Gastrointestinal: soft Musculoskeletal: nl extremities to inspection Results Result Diagram: 01/17/19 0606 01/17/19 0606 Results 24hrs Laboratory Tests Test 01/17/19 17:25 01/17/19 21:40 01/18/19 01:44 01/18/19 05:40 Bedside Glucose 158 185 129 Free Thyroxine 5.64 H Free 7.32 H Triiodothyronine (T3) pg/mL Test 01/18/19 07:50 01/18/19 11:00 01/18/19 11:56 01/18/19 16:49 Bedside Glucose 94 127 150 Urine Osmolality 252 Urine Random Sodium 50 Medications Medication Current Medications Nitroglycerin (Nitroglycerin (Sl Tab) 0.4 Mg) 1 tab Q5M UP TO 3 DOSES PRN SL .CHEST PAIN; Start 01/16/19 at 14:30 Metformin HCl (Glucophage) 500 mg BID PO Last administered on 01/18/19at 08:37; Admin Dose 500 MG; Start 01/16/19 at 21:00 Ondansetron HCl (Zofran Tab) 4 mg DAILY PRN PO NAUSEA AND/OR VOMITING; Start 01/16/19 at 16:30 Pantoprazole (Protonix Tab) 40 mg AC BREAKFAST PO Last administered on 01/18/19at 06:12; Admin Dose 40 MG; Start 01/17/19 at 07:00 Propranolol HCl (Inderal) 40 mg TID PO Last administered on 01/18/19at 12:25; Admin Dose 40 MG; Start 01/16/19 at 21:00 Miscellaneous Information 1 ea NOTE XX ; Start 01/16/19 at 17:00 Glucose (Glutose) 15 gm Q15M PRN PO DECREASED GLUCOSE; Start 01/16/19 at 17:00 Glucose (Glutose) 22.5 gm Q15M PRN PO DECREASED GLUCOSE; Start 01/16/19 at 17:00 Dextrose (D50w Syringe) 25 ml Q15M PRN IV DECREASED GLUCOSE; Start 01/16/19 at 17:00 Dextrose (D50w Syringe) 50 ml Q15M PRN IV DECREASED GLUCOSE; Start 01/16/19 at 17:00 Glucagon (Glucagen) 1 mg Q15M PRN IM DECREASED GLUCOSE; Start 01/16/19 at 17:00 Glucose (Glutose) 15 gm Q15M PRN BUCCAL DECREASED GLUCOSE; Start 01/16/19 at 17:00 IV Flush (NS 3 ml) 3 ml PER PROTOCOL IV ; Start 01/16/19 at 17:30 Heparin Sodium (Porcine) (Heparin (5000 Units/1ml)) 5,000 unit Q12 SC Last administered on 01/18/19at 08:43; Admin Dose 5,000 UNIT; Start 01/16/19 at 21:00 Methimazole (Tapazole) 40 mg BID PO Last administered on 01/18/19at 08:36; Admin Dose 40 MG; Start 01/16/19 at 21:00 Cholestyramine Resin (Questran Light) 4 gm DAILY PO Last administered on 01/18/19at 08:35; Admin Dose 4 GM; Start 01/17/19 at 09:00 Insulin Glargine (Lantus) 11 units DAILY@2000 SC Last administered on 01/17/19at 21:59; Admin Dose 11 UNITS; Start 01/17/19 at 20:00 Insulin Aspart (Novolog Insulin Pen) NOVOLOG *MILD* ALGORITHM WITH MEALS BEDTIME SC Last administered on 01/18/19at 16:52; Admin Dose 1 UNIT; Start 01/17/19 at 11:50 RADHA ROA MD Jan 18, 2019 17:15
[2019-01-18] MEDS: INSULIN GLARGINE [LANTus] (100 UNITS/ML) SYG SC SCH (20:42)
[2019-01-19] VITALS (12 sets, daily range): BP systolic 100–126; BP diastolic 55–71; PULSE 87–97; RESP 16–18
[2019-01-19] MEDS: ACETAMINOPHEN 325 MG TAB PO PRN ×2 (00:25→20:34)
[2019-01-19] MEDS: PANTOPRAZOLE (EC) 40 MG TAB PO SCH (06:25)
[2019-01-19] MEDS: INSULIN ASPART [NOVOLOG] 3 ML PEN SC SCH ×4 (07:55→20:29)
[2019-01-19] MEDS: PROPRANOLOL 40 MG TAB PO SCH ×3 (08:27→17:15)
[2019-01-19] MEDS: metFORMIN 500 MG TAB PO SCH ×2 (08:27→20:28)
[2019-01-19] MEDS: CHOLESTYRAMINE (LIGHT) 4 GM PACKET PO SCH (08:27)
[2019-01-19] MEDS: METHIMAZOLE 5 MG TAB PO SCH ×2 (08:27→20:29)
[2019-01-19] MEDS: HEPARIN 5,000 UNIT/1 ML VIAL SC SCH ×2 (08:32→20:45)
[2019-01-19] MEDS ORDERED: MAGNESIUM SULFATE 3 GM in DEXTROSE 5% 100 ML IVPB ONE (10:00)
--- NOTE | 2019-01-19 11:14 | CONS ---
Assessment/Plan Assessment/Plan Problems: (1) Graves' disease with exophthalmos Status: Chronic Comment: Continue ATD and propanolol (increased to QID). Plan for radioactive iodine ablation. Will arrange for procedure before discharge. Consultation Date/Type/Reason Admit Date/Time Jan 16, 2019 at 15:29 Initial Consult Date 01/16/19 Type of Consult Endocrine Reason for Consultation Thyrotoxicosis Requesting Provider: YOLI ZAMORANO Date/Time of Note DATE: 01/19/19 TIME: 11:12 24 HR Interval Summary Free Text/Dictation No new events overnight Exam/Review of Systems Exam Vitals Vital Signs Date Temp Pulse Resp B/P (MAP) Pulse Ox O2 O2 Flow FiO2 Time Delivery Rate 01/19/19 95 08:15 01/19/19 99.6 18 126/71 98 07:40 (89) 01/19/19 Room Air 03:25 Intake and Output 01/18/19 01/18/19 01/19/19 1515:00 23:00 07:00 IntakeIntake Total 1140 ml 500 ml BalanceBalance 1140 ml 500 ml Cardiovascular: other (Sinus tachycardia) Results Result Diagram: 01/19/19 0554 01/19/19 0554 Results 24hrs Laboratory Tests Test 01/18/19 11:56 01/18/19 16:49 01/18/19 20:25 01/19/19 05:54 Bedside Glucose 127 150 142 White Blood Count 6.1 Red Blood Count 3.55 L Hemoglobin 8.7 L Hematocrit 27.7 L Mean Corpuscular 78.0 L Volume Mean Corpuscular 24.5 L Hemoglobin Mean Corpuscular 31.4 L Hemoglobin Concent Red Cell 17.2 H Distribution Width Platelet Count 200 Mean Platelet Volume 10.0 Immature 0.800 H Granulocytes % Neutrophils % Segmented 54 Neutrophils % (Manual) Band Neutrophils % 1 (Manual) Lymphocytes % Lymphocytes % 24 (Manual) Monocytes % Monocytes % (Manual) 21 H Eosinophils % Basophils % Nucleated Red Blood 0.0 Cells % Immature 0.050 H Granulocytes # Neutrophils # Neutrophils # 3.3 (Manual) Band Neutrophils # 0.0 Lymphocytes (Manual) 1.4 Lymphocytes # Monocytes # Monocytes # (Manual) 1.2 H Eosinophils # Basophils # Nucleated Red Blood Cells # Platelet Estimate NORMAL Polychromasia 3+ Hypochromasia 2+ Poikilocytosis 1+ Anisocytosis 2+ Microcytosis 1+ Macrocytosis 1+ Target Cells 1+ Rouleau 1+ Sodium Level 133 L Potassium Level 4.4 Chloride Level 96 L Carbon Dioxide Level 30 Anion Gap 7 Blood Urea Nitrogen 9 Creatinine 0.59 L Est Glomerular > 60 Filtrat Rate mL/min Glucose Level 77 # Calcium Level 9.9 Phosphorus Level 3.9 Magnesium Level 1.2 L Test 01/19/19 07:59 Bedside Glucose 87 Medications Medication Current Medications Nitroglycerin (Nitroglycerin (Sl Tab) 0.4 Mg) 1 tab Q5M UP TO 3 DOSES PRN SL .CHEST PAIN; Start 01/16/19 at 14:30 Metformin HCl (Glucophage) 500 mg BID PO Last administered on 01/19/19at 08:27; Admin Dose 500 MG; Start 01/16/19 at 21:00 Ondansetron HCl (Zofran Tab) 4 mg DAILY PRN PO NAUSEA AND/OR VOMITING; Start 01/16/19 at 16:30 Pantoprazole (Protonix Tab) 40 mg AC BREAKFAST PO Last administered on 01/19/19at 06:25; Admin Dose 40 MG; Start 01/17/19 at 07:00 Miscellaneous Information 1 ea NOTE XX ; Start 01/16/19 at 17:00 Glucose (Glutose) 15 gm Q15M PRN PO DECREASED GLUCOSE; Start 01/16/19 at 17:00 Glucose (Glutose) 22.5 gm Q15M PRN PO DECREASED GLUCOSE; Start 01/16/19 at 17:00 Dextrose (D50w Syringe) 25 ml Q15M PRN IV DECREASED GLUCOSE; Start 01/16/19 at 17:00 Dextrose (D50w Syringe) 50 ml Q15M PRN IV DECREASED GLUCOSE; Start 01/16/19 at 17:00 Glucagon (Glucagen) 1 mg Q15M PRN IM DECREASED GLUCOSE; Start 01/16/19 at 17:00 Glucose (Glutose) 15 gm Q15M PRN BUCCAL DECREASED GLUCOSE; Start 01/16/19 at 17:00 IV Flush (NS 3 ml) 3 ml PER PROTOCOL IV ; Start 01/16/19 at 17:30 Heparin Sodium (Porcine) (Heparin (5000 Units/1ml)) 5,000 unit Q12 SC Last administered on 01/19/19at 08:32; Admin Dose 5,000 UNIT; Start 01/16/19 at 21:00 Methimazole (Tapazole) 40 mg BID PO Last administered on 01/19/19at 08:27; Admin Dose 40 MG; Start 01/16/19 at 21:00 Cholestyramine Resin (Questran Light) 4 gm DAILY PO Last administered on 01/19/19 08:27; Admin Dose 4 GM; Start 01/17/19 at 09:00 Insulin Glargine (Lantus) 11 units DAILY@2000 SC Last administered on 01/18/19at 20:42; Admin Dose 11 UNITS; Start 01/17/19 at 20:00 Insulin Aspart (Novolog Insulin Pen) NOVOLOG *MILD* ALGORITHM WITH MEALS BEDTIME SC Last administered on 01/18/19at 16:52; Admin Dose 1 UNIT; Start 01/17/19 at 11:50 Acetaminophen (Tylenol Tab) 650 mg Q6H PRN PO MILD PAIN(1-3)OR ELEVATED TEMP Last administered on 01/19/19at 00:25; Admin Dose 650 MG; Start 01/19/19 at 00:30 Magnesium Sulfate 3 gm/Dextrose 106 ml @ 35.333 mls/ hr ONCE ONCE IVPB Last administered on 01/19/19at 11:03; Admin Dose 35.333 MLS/HR; Start 01/19/19 at 10:00; Stop 01/19/19 at 12:59 Propranolol HCl (Inderal) 40 mg Q6 PO ; Start 01/19/19 at 12:00 RADHA ROA MD Jan 19, 2019 11:14
--- NOTE | 2019-01-19 14:13 | PN ---
Date/Time of Note Date/Time of Note DATE: 01/19/19 TIME: 14:12 Assessment/Plan VTE Prophylaxis Risk score (from Nsg)>0 risk: 2 SCD applied (from Nsg): Yes Pharmacological prophylaxis: NA/contraindicated Pharm contraindication: low risk/ambulating Lines/Catheters IV Catheter Type (from Nrs): Saline Lock Assessment/Plan Assessment/Plan 58 yo male with history of hyperthyroidism (on methimazole and propranolol), DMII, anemia presents with MANDEL. Found to have continued hyperthyroidism and now with hyponatremia Hyperthyroid: - Plan for ablation vs thyroidectomy per Dr Alvarado, to be arranged prior to discharge. - Continue methimazole and propranolol. Dyspena on exertion: - Recent TTE showed normal cardiac function so doubt due to cardiomyopathy - Anemia certainly playing a role - Palpitations not helping Anemia: - Iron stores adequate DMII: - Can continue metformin - Start basal insulin Hyponatremia: - Now improving. - Appears clinically euvolemic. Discharge plan is pending management of hyperthyroidism. Can dc to self care when stable Result Diagram: 01/19/19 0554 01/19/19 0554 Subjective 24 Hr Interval Summary Free Text/Dictation No acute overnight events. Exam/Review of Systems Exam Vitals Vital Signs Date Temp Pulse Resp B/P (MAP) Pulse Ox O2 O2 Flow FiO2 Time Delivery Rate 01/19/19 87 12:21 01/19/19 99.2 18 100/55 96 11:45 (70) 01/19/19 Room Air 03:25 Intake and Output 01/18/19 01/18/19 01/19/19 1515:00 23:00 07:00 IntakeIntake Total 1140 ml 500 ml BalanceBalance 1140 ml 500 ml Results Results 24hrs Laboratory Tests Test 01/18/19 16:49 01/18/19 20:25 01/19/19 05:54 01/19/19 07:59 Bedside Glucose 150 142 87 White Blood Count 6.1 Red Blood Count 3.55 L Hemoglobin 8.7 L Hematocrit 27.7 L Mean Corpuscular 78.0 L Volume Mean Corpuscular 24.5 L Hemoglobin Mean Corpuscular 31.4 L Hemoglobin Concent Red Cell 17.2 H Distribution Width Platelet Count 200 Mean Platelet Volume 10.0 Immature 0.800 H Granulocytes % Neutrophils % Segmented 54 Neutrophils % (Manual) Band Neutrophils % 1 (Manual) Lymphocytes % Lymphocytes % 24 (Manual) Monocytes % Monocytes % (Manual) 21 H Eosinophils % Basophils % Nucleated Red Blood 0.0 Cells % Immature 0.050 H Granulocytes # Neutrophils # Neutrophils # 3.3 (Manual) Band Neutrophils # 0.0 Lymphocytes (Manual) 1.4 Lymphocytes # Monocytes # Monocytes # (Manual) 1.2 H Eosinophils # Basophils # Nucleated Red Blood Cells # Platelet Estimate NORMAL Polychromasia 3+ Hypochromasia 2+ Poikilocytosis 1+ Anisocytosis 2+ Microcytosis 1+ Macrocytosis 1+ Target Cells 1+ Rouleau 1+ Sodium Level 133 L Potassium Level 4.4 Chloride Level 96 L Carbon Dioxide Level 30 Anion Gap 7 Blood Urea Nitrogen 9 Creatinine 0.59 L Est Glomerular > 60 Filtrat Rate mL/min Glucose Level 77 # Calcium Level 9.9 Phosphorus Level 3.9 Magnesium Level 1.2 L Test 01/19/19 09:05 01/19/19 12:12 Urine Color YELLOW Urine Clarity CLEAR Urine pH 6.0 Urine Specific 1.011 Naylor Urine Ketones NEGATIVE Urine Nitrite NEGATIVE Urine Bilirubin NEGATIVE Urine Urobilinogen NEGATIVE Urine Leukocyte NEGATIVE Esterase Urine Hemoglobin NEGATIVE Urine Glucose NEGATIVE Urine Total Protein NEGATIVE Bedside Glucose 87 Medications Medication Current Medications Nitroglycerin (Nitroglycerin (Sl Tab) 0.4 Mg) 1 tab Q5M UP TO 3 DOSES PRN SL .CHEST PAIN; Start 01/16/19 at 14:30 Metformin HCl (Glucophage) 500 mg BID PO Last administered on 01/19/19at 08:27; Admin Dose 500 MG; Start 01/16/19 at 21:00 Ondansetron HCl (Zofran Tab) 4 mg DAILY PRN PO NAUSEA AND/OR VOMITING; Start 01/16/19 at 16:30 Pantoprazole (Protonix Tab) 40 mg AC BREAKFAST PO Last administered on 01/19/19at 06:25; Admin Dose 40 MG; Start 01/17/19 at 07:00 Miscellaneous Information 1 ea NOTE XX ; Start 01/16/19 at 17:00 Glucose (Glutose) 15 gm Q15M PRN PO DECREASED GLUCOSE; Start 01/16/19 at 17:00 Glucose (Glutose) 22.5 gm Q15M PRN PO DECREASED GLUCOSE; Start 01/16/19 at 17:00 Dextrose (D50w Syringe) 25 ml Q15M PRN IV DECREASED GLUCOSE; Start 01/16/19 at 17:00 Dextrose (D50w Syringe) 50 ml Q15M PRN IV DECREASED GLUCOSE; Start 01/16/19 at 17:00 Glucagon (Glucagen) 1 mg Q15M PRN IM DECREASED GLUCOSE; Start 01/16/19 at 17:00 Glucose (Glutose) 15 gm Q15M PRN BUCCAL DECREASED GLUCOSE; Start 01/16/19 at 17:00 IV Flush (NS 3 ml) 3 ml PER PROTOCOL IV ; Start 01/16/19 at 17:30 Heparin Sodium (Porcine) (Heparin (5000 Units/1ml)) 5,000 unit Q12 SC Last administered on 01/19/19 08:32; Admin Dose 5,000 UNIT; Start 01/16/19 at 21:00 Methimazole (Tapazole) 40 mg BID PO Last administered on 01/19/19 08:27; Admin Dose 40 MG; Start 01/16/19 at 21:00 Cholestyramine Resin (Questran Light) 4 gm DAILY PO Last administered on 01/19/19 08:27; Admin Dose 4 GM; Start 01/17/19 at 09:00 Insulin Glargine (Lantus) 11 units DAILY@2000 SC Last administered on 01/18/19 20:42; Admin Dose 11 UNITS; Start 01/17/19 at 20:00 Insulin Aspart (Novolog Insulin Pen) NOVOLOG *MILD* ALGORITHM WITH MEALS BEDTIME SC Last administered on 01/18/19 16:52; Admin Dose 1 UNIT; Start 01/17/19 at 11:50 Acetaminophen (Tylenol Tab) 650 mg Q6H PRN PO MILD PAIN(1-3)OR ELEVATED TEMP Last administered on 01/19/19at 00:25; Admin Dose 650 MG; Start 01/19/19 at 00:30 Propranolol HCl (Inderal) 40 mg Q6 PO Last administered on 01/19/19 12:16; Admin Dose 40 MG; Start 01/19/19 at 12:00 PURVI QUIGLEY MD Jan 19, 2019 14:13
[2019-01-19] MEDS: INSULIN GLARGINE [LANTus] (100 UNITS/ML) SYG SC SCH (20:32)
[2019-01-20] VITALS (13 sets, daily range): BP systolic 85–130; BP diastolic 53–64; PULSE 80–97; RESP 16–18
[2019-01-20] MEDS: PROPRANOLOL 40 MG TAB PO SCH ×4 (00:47→17:32)
[2019-01-20] MEDS: ACETAMINOPHEN 325 MG TAB PO PRN (06:41)
[2019-01-20] MEDS: PANTOPRAZOLE (EC) 40 MG TAB PO SCH (06:42)
[2019-01-20] MEDS: INSULIN ASPART [NOVOLOG] 3 ML PEN SC SCH ×4 (07:55→21:00)
[2019-01-20] MEDS: metFORMIN 500 MG TAB PO SCH ×2 (08:09→21:15)
[2019-01-20] MEDS: METHIMAZOLE 5 MG TAB PO SCH ×2 (08:10→21:14)
[2019-01-20] MEDS: CHOLESTYRAMINE (LIGHT) 4 GM PACKET PO SCH ×2 (08:10→21:23)
[2019-01-20] MEDS: HEPARIN 5,000 UNIT/1 ML VIAL SC SCH ×2 (08:16→21:18)
--- NOTE | 2019-01-20 10:26 | CONS ---
Assessment/Plan Assessment/Plan Problems: (1) Graves' disease with exophthalmos Status: Chronic Comment: Is on high dose of antithyroid drug therapy using methimazole. We will bring the stone and on Sunday of this week and 48 hours, in preparation for him to receive radioactive iodine ablation next week as an outpatient. I am giving him morning and bedtime Questran and afternoon iron intact his thyroid hormone binding agents. This will absorb some of the thyroid hormone from the enterohepatic circulation and keep him from getting too far down the road while he is off of antithyroid drug therapy. We will try and get his insurance company on board with this aggressive treatment. Consultation Date/Type/Reason Admit Date/Time Jan 16, 2019 at 15:29 Initial Consult Date 01/16/19 Type of Consult Endocrinology Reason for Consultation Persistent severe thyrotoxicosis Requesting Provider: YOLI ZAMORANO Date/Time of Note DATE: 01/20/19 TIME: 10:24 24 HR Interval Summary Free Text/Dictation Patient reports he feels relatively the same Detailed Summary Endocrine: other (Tremulous and palpitations) Exam/Review of Systems Exam Vitals Vital Signs Date Temp Pulse Resp B/P (MAP) Pulse Ox O2 O2 Flow FiO2 Time Delivery Rate 01/20/19 87 96/54 (68) 09:24 01/20/19 18 Room Air 08:08 01/20/19 98.5 07:28 01/20/19 100 07:27 Intake and Output 01/19/19 01/19/19 01/20/19 1515:00 23:00 07:00 IntakeIntake Total 900 ml 200 ml BalanceBalance 900 ml 200 ml Constitutional: alert, oriented Respiratory: clear to auscultation, normal air movement Gastrointestinal: soft, nl liver, spleen, non-tender Results Result Diagram: 01/19/19 0554 01/19/19 0554 Results 24hrs Laboratory Tests Test 01/19/19 12:12 01/19/19 17:15 01/19/19 20:27 01/20/19 08:07 Bedside Glucose 87 144 123 106 Medications Medication Current Medications Nitroglycerin (Nitroglycerin (Sl Tab) 0.4 Mg) 1 tab Q5M UP TO 3 DOSES PRN SL .CHEST PAIN; Start 01/16/19 at 14:30 Metformin HCl (Glucophage) 500 mg BID PO Last administered on 3/18/19at 08:09; Admin Dose 500 MG; Start 01/16/19 at 21:00 Ondansetron HCl (Zofran Tab) 4 mg DAILY PRN PO NAUSEA AND/OR VOMITING; Start 01/16/19 at 16:30 Pantoprazole (Protonix Tab) 40 mg AC BREAKFAST PO Last administered on 01/20/19at 06:42; Admin Dose 40 MG; Start 01/17/19 at 07:00 Miscellaneous Information 1 ea NOTE XX ; Start 01/16/19 at 17:00 Glucose (Glutose) 15 gm Q15M PRN PO DECREASED GLUCOSE; Start 01/16/19 at 17:00 Glucose (Glutose) 22.5 gm Q15M PRN PO DECREASED GLUCOSE; Start 01/16/19 at 17:00 Dextrose (D50w Syringe) 25 ml Q15M PRN IV DECREASED GLUCOSE; Start 01/16/19 at 17:00 Dextrose (D50w Syringe) 50 ml Q15M PRN IV DECREASED GLUCOSE; Start 01/16/19 at 17:00 Glucagon (Glucagen) 1 mg Q15M PRN IM DECREASED GLUCOSE; Start 01/16/19 at 17:00 Glucose (Glutose) 15 gm Q15M PRN BUCCAL DECREASED GLUCOSE; Start 01/16/19 at 17:00 IV Flush (NS 3 ml) 3 ml PER PROTOCOL IV ; Start 01/16/19 at 17:30 Heparin Sodium (Porcine) (Heparin (5000 Units/1ml)) 5,000 unit Q12 SC Last administered on 01/20/19at 08:16; Admin Dose 5,000 UNIT; Start 01/16/19 at 21:00 Methimazole (Tapazole) 40 mg BID PO Last administered on 01/20/19at 08:10; Admin Dose 40 MG; Start 01/16/19 at 21:00 Insulin Glargine (Lantus) 11 units DAILY@2000 SC Last administered on 01/19/19at 20:32; Admin Dose 11 UNITS; Start 01/17/19 at 20:00 Insulin Aspart (Novolog Insulin Pen) NOVOLOG *MILD* ALGORITHM WITH MEALS BEDTIME SC Last administered on 01/19/19 17:18; Admin Dose 1 UNIT; Start 01/17/19 at 11:50 Acetaminophen (Tylenol Tab) 650 mg Q6H PRN PO MILD PAIN(1-3)OR ELEVATED TEMP Last administered on 01/20/19at 06:41; Admin Dose 650 MG; Start 01/19/19 at 00:30 Propranolol HCl (Inderal) 40 mg Q6 PO Last administered on 01/20/19at 06:39; Admin Dose 40 MG; Start 01/19/19 at 12:00 Cholestyramine Resin (Questran Light) 4 gm BID PO ; Start 01/20/19 at 21:00; Stop 02/10/19 at 20:59; Status UNV Docusate Sodium/ Ferrous Fumarate (Arabella-Sequels) 1 tab PC LUNCH PO ; Start 01/20/19 at 12:50; Stop 02/10/19 at 12:49; Status UNV ANA GARCIA MD Jan 20, 2019 10:26
[2019-01-20] MEDS: FERROUS FUMARATE (SR) TAB PO SCH (12:24)
--- NOTE | 2019-01-20 12:35 | PN ---
Date/Time of Note Date/Time of Note DATE: 01/20/19 TIME: 12:33 Assessment/Plan VTE Prophylaxis Risk score (from Nsg)>0 risk: 2 SCD applied (from Nsg): Yes Pharmacological prophylaxis: heparin Lines/Catheters IV Catheter Type (from Nrsg): Saline Lock Assessment/Plan Hospital Course 58 yo male with history of hyperthyroidism (on methimazole and propranolol), DMII, anemia presents with MANDEL. Found to have continued hyperthyroidism and now with hyponatremia Hyperthyroid: - Plan for [facility] per Dr Alvarado - Continue methimazole and proprarnolol as well as cholestyramine Dyspena on exertion: - Recent TTE showed normal cardiac function so doubt due to cardiomyopathy - Anemia certainly playing a role - Palpitations not helping Anemia: - Iron stores adequate - I have asked Dr Sanchez to assist with workup DMII: - Can continue metformin - Started basal insulin Hyponatremia: - Urine studies suggest SIADH. FW restriction Discharge plan is pending management of hyperthyroidism. Can dc to self care when stable Result Diagram: 01/19/19 0554 01/19/19 0554 Results 24hrs Laboratory Tests Test 01/19/19 17:15 01/19/19 20:27 01/20/19 08:07 01/20/19 12:23 Bedside Glucose 144 123 106 97 Subjective 24 Hr Interval Summary Free Text/Dictation Patinet stable, no change to stauts Awaiting radioactive iodine arrangements Exam/Review of Systems Exam Vitals Vital Signs Date Temp Pulse Resp B/P (MAP) Pulse Ox O2 O2 Flow FiO2 Time Delivery Rate 01/20/19 97.6 86 16 106/62 96 11:29 (77) 01/20/19 Room Air 08:08 Intake and Output 01/19/19 01/19/19 01/20/19 1515:00 23:00 07:00 IntakeIntake Total 900 ml 200 ml BalanceBalance 900 ml 200 ml Constitutional: alert, oriented, well developed Psych: no complaints, nl mood/affect Head: normocephalic, atraumatic Eyes: nl conjunctiva, EOMI, nl lids, nl sclera, PERRL ENMT: nl external ears & nose, nl lips & teeth, nl nasal mucosa & septum Neck: supple, non-tender Respiratory: clear to auscultation, normal air movement Cardiovascular: regular rate and rhythm, nl pulses Gastrointestinal: soft, nl liver, spleen, non-tender Musculoskeletal: nl extremities to inspection, nl gait and stance Extremities: normal pulses Neurological: POCKET [employer]ER II-XII intact, nl mental status, nl speech, nl strength Skin: nl turgor; No rash or lesions Lymph: nl lymph nodes Results Results 24hrs Laboratory Tests Test 01/19/19 17:15 01/19/19 20:27 01/20/19 08:07 01/20/19 12:23 Bedside Glucose 144 123 106 97 Medications Medication Current Medications Nitroglycerin (Nitroglycerin (Sl Tab) 0.4 Mg) 1 tab Q5M UP TO 3 DOSES PRN SL .CHEST PAIN; Start 01/16/19 at 14:30 Metformin HCl (Glucophage) 500 mg BID PO Last administered on 01/20/19at 08:09; Admin Dose 500 MG; Start 01/16/19 at 21:00 Ondansetron HCl (Zofran Tab) 4 mg DAILY PRN PO NAUSEA AND/OR VOMITING; Start 01/16/19 at 16:30 Pantoprazole (Protonix Tab) 40 mg AC BREAKFAST PO Last administered on 01/20/19at 06:42; Admin Dose 40 MG; Start 01/17/19 at 07:00 Miscellaneous Information 1 ea NOTE XX ; Start 01/16/19 at 17:00 Glucose (Glutose) 15 gm Q15M PRN PO DECREASED GLUCOSE; Start 01/16/19 at 17:00 Glucose (Glutose) 22.5 gm Q15M PRN PO DECREASED GLUCOSE; Start 01/16/19 at 17:00 Dextrose (D50w Syringe) 25 ml Q15M PRN IV DECREASED GLUCOSE; Start 01/16/19 at 17:00 Dextrose (D50w Syringe) 50 ml Q15M PRN IV DECREASED GLUCOSE; Start 01/16/19 at 17:00 Glucagon (Glucagen) 1 mg Q15M PRN IM DECREASED GLUCOSE; Start 01/16/19 at 17:00 Glucose (Glutose) 15 gm Q15M PRN BUCCAL DECREASED GLUCOSE; Start 01/16/19 at 17:00 IV Flush (NS 3 ml) 3 ml PER PROTOCOL IV ; Start 01/16/19 at 17:30 Heparin Sodium (Porcine) (Heparin (5000 Units/1ml)) 5,000 unit Q12 SC Last administered on 01/20/19 08:16; Admin Dose 5,000 UNIT; Start 01/16/19 at 21:00 Methimazole (Tapazole) 40 mg BID PO Last administered on 01/20/19 08:10; Admin Dose 40 MG; Start 01/16/19 at 21:00 Insulin Glargine (Lantus) 11 units DAILY@2000 SC Last administered on 01/19/19 20:32; Admin Dose 11 UNITS; Start 01/17/19 at 20:00 Insulin Aspart (Novolog Insulin Pen) NOVOLOG *MILD* ALGORITHM WITH MEALS BEDTIME SC Last administered on 01/19/19 17:18; Admin Dose 1 UNIT; Start 01/17/19 at 11:50 Acetaminophen (Tylenol Tab) 650 mg Q6H PRN PO MILD PAIN(1-3)OR ELEVATED TEMP Last administered on 01/20/19 06:41; Admin Dose 650 MG; Start 01/19/19 at 00:30 Propranolol HCl (Inderal) 40 mg Q6 PO Last administered on 01/20/19 12:24; Admin Dose 40 MG; Start 01/19/19 at 12:00 Cholestyramine Resin (Questran Light) 4 gm BID PO ; Start 01/20/19 at 21:00; Stop 02/10/19 at 20:59 Docusate Sodium/ Ferrous Fumarate (Arabella-Sequels) 1 tab PC LUNCH PO Last administered on 01/20/19 12:24; Admin Dose 1 TAB; Start 01/20/19 at 12:50; Stop 02/10/19 at 12:49 KIRK AREVALO MD Jan 20, 2019 12:34
[2019-01-20] MEDS ORDERED: POLYETHYLENE GLYCOL 17 GM PACKET PO PRN (14:00)
--- NOTE | 2019-01-20 14:35 | CONS ---
Assessment/Plan Assessment/Plan Hospital Course (Demo Recall) 58 yo with hyperthyroid adm with SOB has microcytic anemia check hemoglobin electrophoresis high globulin-check SPEP, Immunofixation, quant Igs, check light chains Consultation Date/Type/Reason Admit Date/Time Jan 16, 2019 at 15:29 Date/Time of Note DATE: 01/20/19 TIME: 14:32 Hx of Present Illness 58 yo 5 h/o hyperthyroidism, DMII, anemia came in with SOB Patient recently admitted for hyperthyroidism. We are asked to see for microcytic anemia he has adequate ferritin, low iron sat and serum iron and TIBC, seems to be c/w anemia of chronic disease/chr inflammation he has high globulin Constitutional: no complaints, improved Eyes: no complaints ENT: no complaints Respiratory: no complaints Cardiovascular: no complaints Gastrointestinal: no complaints Genitourinary: no complaints Musculoskeletal: no complaints Past Medical History Medical History: diabetes, high cholesterol, hypertension, hyperthyroid, other (Exophthalmos) Home Meds Reported Medications Ondansetron Hcl* (Zofran*) 4 Mg Tablet, 4 MG PO DAILY PRN for NAUSEA AND OR VOMITING, TAB 01/16/19 Simvastatin* (Zocor*) 20 Mg Tablet, 20 MG PO QHS, #30 TAB 01/16/19 Methimazole* (Methimazole*) 10 Mg Tablet, 30 MG PO BID, TAB 01/16/19 Metformin* (Glucophage*) 500 Mg Tab, 500 MG PO BID, #90 TAB 01/16/19 Lisinopril* (Lisinopril*) 2.5 Mg Tablet, 2.5 MG PO DAILY, #30 TAB 01/16/19 Propranolol Hcl* (Propranolol Hcl*) 40 Mg Tablet, 40 MG PO TID, TAB 01/16/19 Docusate Sodium* (Colace*) 100 Mg Capsule, 100 MG PO BID PRN for CONSTIPATION, #60 CAP 01/16/19 Pantoprazole* (Pantoprazole*) 40 Mg Tablet.dr, 40 MG PO AC BREAKFAST, TAB 01/16/19 Discontinued Reported Medications Glipizide* (Glipizide*) 5 Mg Tablet, 5 MG PO BID, TAB 11/23/18 Discontinued Scripts Insulin Glargine* (Lantus*) 100 Unit/Ml Soln, 13 UNIT SC DAILY, #4 VIAL Prov:YOLI ZAMORANO 12/19/18 Methimazole* (Methimazole*) 10 Mg Tablet, 30 MG PO BID, #180 TAB Prov:YOLI ZAMORANO 12/19/18 Docusate Sodium* (Docusate Sodium*) 100 Mg Capsule, 100 MG PO Q12, #60 CAP Prov:YOLI ZAMORANO 12/19/18 Pantoprazole* (Pantoprazole*) 40 Mg Tablet.dr, 40 MG PO BID@, #50 TAB Prov:YOLI ZAMORANO 12/19/18 Propranolol Hcl* (Propranolol Hcl*) 40 Mg Tablet, 80 MG PO TID, #180 TAB 1 [facility] Clarithromycin* (Clarithromycin*) 500 Mg Tablet, 500 MG PO BID for 9 Days, #18 TAB [facility]/18 Amoxicillin* (Amoxicillin*) 500 Mg Cap, 1000 MG PO BID for 9 Days, #18 CAP [facility] Metformin* (Glucophage*) 500 Mg Tab, 500 MG PO BID WITH MEALS for 30 Days, #60 TAB Prov:YOLI ZAMORANO 12/19/18 Medications Current Medications Nitroglycerin (Nitroglycerin (Sl Tab) 0.4 Mg) 1 tab Q5M UP TO 3 DOSES PRN SL .CHEST PAIN; Start 01/16/19 at 14:30 Metformin HCl (Glucophage) 500 mg BID PO Last administered on 01/20/19at 08:09; Admin Dose 500 MG; Start 01/16/19 at 21:00 Ondansetron HCl (Zofran Tab) 4 mg DAILY PRN PO NAUSEA AND/OR VOMITING; Start 01/16/19 at 16:30 Pantoprazole (Protonix Tab) 40 mg AC BREAKFAST PO Last administered on 01/20/19at 06:42; Admin Dose 40 MG; Start 01/17/19 at 07:00 Miscellaneous Information 1 ea NOTE XX ; Start 01/16/19 at 17:00 Glucose (Glutose) 15 gm Q15M PRN PO DECREASED GLUCOSE; Start 01/16/19 at 17:00 Glucose (Glutose) 22.5 gm Q15M PRN PO DECREASED GLUCOSE; Start 01/16/19 at 17: 00 Dextrose (D50w Syringe) 25 ml Q15M PRN IV DECREASED GLUCOSE; Start 01/16/19 at 17:00 Dextrose (D50w Syringe) 50 ml Q15M PRN IV DECREASED GLUCOSE; Start 01/16/19 at 17:00 Glucagon (Glucagen) 1 mg Q15M PRN IM DECREASED GLUCOSE; Start 01/16/19 at 17:00 Glucose (Glutose) 15 gm Q15M PRN BUCCAL DECREASED GLUCOSE; Start 01/16/19 at 17:00 IV Flush (NS 3 ml) 3 ml PER PROTOCOL IV ; Start 01/16/19 at 17:30 Heparin Sodium (Porcine) (Heparin (5000 Units/1ml)) 5,000 unit Q12 SC Last administered on 01/20/19at 08:16; Admin Dose 5,000 UNIT; Start 01/16/19 at 21:00 Methimazole (Tapazole) 40 mg BID PO Last administered on 01/20/19at 08:10; Admin Dose 40 MG; Start 01/16/19 at 21:00 Insulin Glargine (Lantus) 11 units DAILY@2000 SC Last administered on 01/19/19 20:32; Admin Dose 11 UNITS; Start 01/17/19 at 20:00 Insulin Aspart (Novolog Insulin Pen) NOVOLOG *MILD* ALGORITHM WITH MEALS BEDTIME SC Last administered on 01/19/19 17:18; Admin Dose 1 UNIT; Start 01/17/19 at 11:50 Acetaminophen (Tylenol Tab) 650 mg Q6H PRN PO MILD PAIN(1-3)OR ELEVATED TEMP Last administered on 01/20/19at 06:41; Admin Dose 650 MG; Start 01/19/19 at 00:30 Propranolol HCl (Inderal) 40 mg Q6 PO Last administered on 01/20/19 12:24; Admin Dose 40 MG; Start 01/19/19 at 12:00 Cholestyramine Resin (Questran Light) 4 gm BID PO ; Start 01/20/19 at 21:00; Stop 02/10/19 at 20:59 Docusate Sodium/ Ferrous Fumarate (Arabella-Sequels) 1 tab PC LUNCH PO Last administered on 01/20/19at 12:24; Admin Dose 1 TAB; Start 01/20/19 at 12:50; Stop 02/10/19 at 12:49 Polyethylene Glycol (Miralax) 17 gm DAILY PRN PO CONSTIPATION; Start 01/20/19 at 14:00 Allergies: Coded Allergies: No Known Allergy (Unverified , 01/16/19) Past Surgical History Past Surgical Hx: noncontributory Social History Alcohol Use: none Smoking Status: Never smoker Drug Use: none Exam/Review of Systems Exam Vitals Vital Signs Date Temp Pulse Resp B/P (MAP) Pulse Ox O2 O2 Flow FiO2 Time Delivery Rate 01/20/19 83 12:01 01/20/19 97.6 16 106/62 96 11:29 (77) 01/20/19 Room Air 08:08 Intake and Output 01/19/19 01/19/19 01/20/19 1515:00 23:00 07:00 IntakeIntake Total 900 ml 200 ml BalanceBalance 900 ml 200 ml Constitutional: alert, oriented, well developed Psych: no complaints, nl mood/affect Head: normocephalic, atraumatic Eyes: nl conjunctiva, EOMI, nl lids, nl sclera, PERRL Gastrointestinal: soft, nl liver, spleen, non-tender Musculoskeletal: nl extremities to inspection, nl gait and stance Results Result Diagram: 01/19/19 0554 01/19/19 0554 Results 24hrs Laboratory Tests Test 01/19/19 17:15 01/19/19 20:27 01/20/19 08:07 01/20/19 12:23 Bedside Glucose 144 123 106 97 Medications Medication Current Medications Nitroglycerin (Nitroglycerin (Sl Tab) 0.4 Mg) 1 tab Q5M UP TO 3 DOSES PRN SL .CHEST PAIN; Start 01/16/19 at 14:30 Metformin HCl (Glucophage) 500 mg BID PO Last administered on 01/20/19at 08:09; Admin Dose 500 MG; Start 01/16/19 at 21:00 Ondansetron HCl (Zofran Tab) 4 mg DAILY PRN PO NAUSEA AND/OR VOMITING; Start 01/16/19 at 16:30 Pantoprazole (Protonix Tab) 40 mg AC BREAKFAST PO Last administered on 01/20/19at 06:42; Admin Dose 40 MG; Start 01/17/19 at 07:00 Miscellaneous Information 1 ea NOTE XX ; Start 01/16/19 at 17:00 Glucose (Glutose) 15 gm Q15M PRN PO DECREASED GLUCOSE; Start 01/16/19 at 17:00 Glucose (Glutose) 22.5 gm Q15M PRN PO DECREASED GLUCOSE; Start 01/16/19 at 17:00 Dextrose (D50w Syringe) 25 ml Q15M PRN IV DECREASED GLUCOSE; Start 01/16/19 at 17:00 Dextrose (D50w Syringe) 50 ml Q15M PRN IV DECREASED GLUCOSE; Start 01/16/19 at 17:00 Glucagon (Glucagen) 1 mg Q15M PRN IM DECREASED GLUCOSE; Start 01/16/19 at 17:00 Glucose (Glutose) 15 gm Q15M PRN BUCCAL DECREASED GLUCOSE; Start 01/16/19 at 17:00 IV Flush (NS 3 ml) 3 ml PER PROTOCOL IV ; Start 01/16/19 at 17:30 Heparin Sodium (Porcine) (Heparin (5000 Units/1ml)) 5,000 unit Q12 SC Last administered on 01/20/19at 08:16; Admin Dose 5,000 UNIT; Start 01/16/19 at 21:00 Methimazole (Tapazole) 40 mg BID PO Last administered on 01/20/19at 08:10; Admin Dose 40 MG; Start 01/16/19 at 21:00 Insulin Glargine (Lantus) 11 units DAILY@2000 SC Last administered on 01/19/19at 20:32; Admin Dose 11 UNITS; Start 01/17/19 at 20:00 Insulin Aspart (Novolog Insulin Pen) NOVOLOG *MILD* ALGORITHM WITH MEALS BEDTIME SC Last administered on 01/19/19at 17:18; Admin Dose 1 UNIT; Start 01/17/19 at 11:50 Acetaminophen (Tylenol Tab) 650 mg Q6H PRN PO MILD PAIN(1-3)OR ELEVATED TEMP Last administered on 01/20/19at 06:41; Admin Dose 650 MG; Start 01/19/19 at 00:30 Propranolol HCl (Inderal) 40 mg Q6 PO Last administered on 01/20/19at 12:24; Admin Dose 40 MG; Start 01/19/19 at 12:00 Cholestyramine Resin (Questran Light) 4 gm BID PO ; Start 01/20/19 at 21:00; Stop 02/10/19 at 20:59 Docusate Sodium/ Ferrous Fumarate (Arabella-Sequels) 1 tab PC LUNCH PO Last administered on 01/20/19at 12:24; Admin Dose 1 TAB; Start 01/20/19 at 12:50; Stop 02/10/19 at 12:49 Polyethylene Glycol (Miralax) 17 gm DAILY PRN PO CONSTIPATION; Start 01/20/19 at 14:00 NAYAN OAKLEY 18, 2019 14:35
[2019-01-20] MEDS: INSULIN GLARGINE [LANTus] (100 UNITS/ML) SYG SC SCH (21:18)
[2019-01-21] VITALS (10 sets, daily range): BP systolic 97–119; BP diastolic 53–63; PULSE 84–94; RESP 18–20
[2019-01-21] MEDS: PROPRANOLOL 40 MG TAB PO SCH ×5 (05:43→23:48)
[2019-01-21] MEDS: INSULIN ASPART [NOVOLOG] 3 ML PEN SC SCH ×4 (07:55→20:55)
[2019-01-21] MEDS: METHIMAZOLE 5 MG TAB PO SCH (09:26)
[2019-01-21] MEDS: PANTOPRAZOLE (EC) 40 MG TAB PO SCH (09:26)
[2019-01-21] MEDS: metFORMIN 500 MG TAB PO SCH ×2 (09:26→20:56)
[2019-01-21] MEDS: CHOLESTYRAMINE (LIGHT) 4 GM PACKET PO SCH ×2 (09:28→20:56)
[2019-01-21] MEDS: HEPARIN 5,000 UNIT/1 ML VIAL SC SCH ×2 (09:39→21:54)
[2019-01-21] MEDS: FERROUS FUMARATE (SR) TAB PO SCH (12:22)
--- NOTE | 2019-01-21 13:23 | PN ---
Date/Time of Note Date/Time of Note DATE: 01/21/19 TIME: 13:23 Assessment/Plan VTE Prophylaxis Risk score (from Nsg)>0 risk: 2 SCD applied (from Nsg): Yes Pharmacological prophylaxis: heparin Lines/Catheters IV Catheter Type (from Nrsg): Saline Lock Assessment/Plan Hospital Course 58 yo male with history of hyperthyroidism (on methimazole and propranolol), DMII, anemia presents with MANDEL. Found to have continued hyperthyroidism and now with hyponatremia Hyperthyroid: - Plan for [facility] per Dr Alvarado - Continue methimazole and proprarnolol as well as cholestyramine Dyspena on exertion: - Recent TTE showed normal cardiac function so doubt due to cardiomyopathy - Anemia certainly playing a role - Palpitations not helping Anemia: - Iron stores adequate - I have asked Dr Sanchez to assist with workup DMII: - Can continue metformin - Started basal insulin Hyponatremia: - Urine studies suggest SIADH. FW restriction Discharge plan is pending management of hyperthyroidism. Can dc to self care when stable Result Diagram: 01/19/19 0554 01/19/19 0554 Results 24hrs Laboratory Tests Test 01/20/19 17:19 01/20/19 21:13 01/21/19 01:25 01/21/19 08:06 Bedside Glucose 82 104 71 92 Test 01/21/19 12:23 Bedside Glucose 87 Subjective 24 Hr Interval Summary Free Text/Dictation No change to clinical status Awaiting FOSTER Exam/Review of Systems Exam Vitals Vital Signs Date Temp Pulse Resp B/P (MAP) Pulse Ox O2 O2 Flow FiO2 Time Delivery Rate 01/21/19 87 12:09 01/21/19 99.4 20 102/57 99 11:10 (72) 01/20/19 Room Air 08:08 Intake and Output 01/20/19 01/20/19 01/21/19 1515:00 23:00 07:00 IntakeIntake Total 720 ml 400 ml BalanceBalance 720 ml 400 ml Constitutional: alert, oriented, well developed Psych: no complaints, nl mood/affect Head: normocephalic, atraumatic Eyes: nl conjunctiva, EOMI, nl lids, nl sclera, PERRL ENMT: nl external ears & nose, nl lips & teeth, nl nasal mucosa & septum Neck: supple, non-tender Respiratory: clear to auscultation, normal air movement Cardiovascular: regular rate and rhythm, nl pulses Gastrointestinal: soft, nl liver, spleen, non-tender Musculoskeletal: nl extremities to inspection, nl gait and stance Extremities: normal pulses Neurological: WATCH MECHANIC II-XII intact, nl mental status, nl speech, nl strength Skin: nl turgor; No rash or lesions Lymph: nl lymph nodes Results Results 24hrs Laboratory Tests Test 01/20/19 17:19 01/20/19 21:13 01/21/19 01:25 01/21/19 08:06 Bedside Glucose 82 104 71 92 Test 01/21/19 12:23 Bedside Glucose 87 Medications Medication Current Medications Nitroglycerin (Nitroglycerin (Sl Tab) 0.4 Mg) 1 tab Q5M UP TO 3 DOSES PRN SL .CHEST PAIN; Start 01/16/19 at 14:30 Metformin HCl (Glucophage) 500 mg BID PO Last administered on 01/21/19at 09:26; Admin Dose 500 MG; Start 01/16/19 at 21:00 Ondansetron HCl (Zofran Tab) 4 mg DAILY PRN PO NAUSEA AND/OR VOMITING; Start 01/16/19 at 16:30 Pantoprazole (Protonix Tab) 40 mg AC BREAKFAST PO Last administered on 01/21/19at 09:26; Admin Dose 40 MG; Start 01/17/19 at 07:00 Miscellaneous Information 1 ea NOTE XX ; Start 01/16/19 at 17:00 Glucose (Glutose) 15 gm Q15M PRN PO DECREASED GLUCOSE; Start 01/16/19 at 17:00 Glucose (Glutose) 22.5 gm Q15M PRN PO DECREASED GLUCOSE; Start 01/16/19 at 17:00 Dextrose (D50w Syringe) 25 ml Q15M PRN IV DECREASED GLUCOSE; Start 01/16/19 at 17:00 Dextrose (D50w Syringe) 50 ml Q15M PRN IV DECREASED GLUCOSE; Start 01/16/19 at 17:00 Glucagon (Glucagen) 1 mg Q15M PRN IM DECREASED GLUCOSE; Start 01/16/19 at 17:00 Glucose (Glutose) 15 gm Q15M PRN BUCCAL DECREASED GLUCOSE; Start 01/16/19 at 17:00 IV Flush (NS 3 ml) 3 ml PER PROTOCOL IV ; Start 01/16/19 at 17:30 Heparin Sodium (Porcine) (Heparin (5000 Units/1ml)) 5,000 unit Q12 SC Last administered on 01/21/19 09:39; Admin Dose 5,000 UNIT; Start 01/16/19 at 21:00 Methimazole (Tapazole) 40 mg BID PO Last administered on 01/21/19 09:26; Admin Dose 40 MG; Start 01/16/19 at 21:00 Insulin Glargine (Lantus) 11 units DAILY@2000 SC Last administered on 01/20/19 21:18; Admin Dose 11 UNITS; Start 01/17/19 at 20:00 Insulin Aspart (Novolog Insulin Pen) NOVOLOG *MILD* ALGORITHM WITH MEALS BEDTIME SC Last administered on 01/19/19 17:18; Admin Dose 1 UNIT; Start 01/17/19 at 11:50 Acetaminophen (Tylenol Tab) 650 mg Q6H PRN PO MILD PAIN(1-3)OR ELEVATED TEMP Last administered on 01/20/19 06:41; Admin Dose 650 MG; Start 01/19/19 at 00:30 Propranolol HCl (Inderal) 40 mg Q6 PO Last administered on 01/21/19 12:22; Admin Dose 40 MG; Start 01/19/19 at 12:00 Cholestyramine Resin (Questran Light) 4 gm BID PO Last administered on 01/21/19 09:28; Admin Dose 4 GM; Start 01/20/19 at 21:00; Stop 02/10/19 at 20:59 Docusate Sodium/ Ferrous Fumarate (Arabella-Sequels) 1 tab PC LUNCH PO Last administered on 01/21/19 12:22; Admin Dose 1 TAB; Start 01/20/19 at 12:50; Stop 02/10/19 at 12:49 Polyethylene Glycol (Miralax) 17 gm DAILY PRN PO CONSTIPATION; Start 01/20/19 at 14:00 KIRK AREVALO MD Jan 21, 2019 13:23
--- NOTE | 2019-01-21 17:52 | CONS ---
Assessment/Plan Assessment/Plan Problems: (1) Graves' disease with exophthalmos Status: Chronic Comment: The patient remains biochemically and clinically hyperthyroid. He is on medications and tolerating this to bring down his total thyroxine levels. As per mental health case manager notes we are still awaiting authorization from his IPA to arrange for the outpatient radioactive iodine ablation and thyroid uptake and scan. The goal here is to have authorization for this he can be discharged home on self care, turn off the antithyroid drug therapy 5 days before the scheduled date of procedure, receive the treatment and then go back on the antithyroid drug therapy 1 week after that for a total of 8 weeks. The [employer] points in this is having authorization for the outpatient procedures. I will put a stop date on the current thyroid medications to make sure that we do not get caught up with that detail. (2) Diabetes mellitus type 2 in nonobese Status: Chronic Comment: Adequate control (3) Anemia Status: Chronic Comment: Hematology consult is evaluated (4) Fever Status: Acute Comment: This is not due to thyroid storm. Workup as per primary team Consultation Date/Type/Reason Admit Date/Time Jan 16, 2019 at 15:29 Initial Consult Date 01/16/19 Type of Consult Endocrinology Reason for Consultation Persistent thyrotoxicosis; fever; anemia; diabetes mellitus type 2 Requesting Provider: YOLI ZAMORANO Date/Time of Note DATE: 01/21/19 TIME: 17:49 24 HR Interval Summary Free Text/Dictation Patient reports feeling approximately the same. Exam/Review of Systems Exam Vitals Vital Signs Date Temp Pulse Resp B/P (MAP) Pulse Ox O2 O2 Flow FiO2 Time Delivery Rate 01/21/19 89 16:12 01/21/19 99.5 20 99/59 (72) 100 15:39 01/20/19 Room Air 08:08 Intake and Output 01/20/19 01/20/19 01/21/19 1414:59 22:59 06:59 IntakeIntake Total 720 ml 400 ml BalanceBalance 720 ml 400 ml Exam No change in examination Results Result Diagram: 01/19/19 0554 01/19/19 0554 Results 24hrs Laboratory Tests Test 01/20/19 21:13 01/21/19 01:25 01/21/19 08:06 01/21/19 12:23 Bedside Glucose 104 71 92 87 Medications Medication Current Medications Nitroglycerin (Nitroglycerin (Sl Tab) 0.4 Mg) 1 tab Q5M UP TO 3 DOSES PRN SL .CHEST PAIN; Start 01/16/19 at 14:30 Metformin HCl (Glucophage) 500 mg BID PO Last administered on 01/21/19 09:26; Admin Dose 500 MG; Start 01/16/19 at 21:00 Ondansetron HCl (Zofran Tab) 4 mg DAILY PRN PO NAUSEA AND/OR VOMITING; Start 01/16/19 at 16:30 Pantoprazole (Protonix Tab) 40 mg AC BREAKFAST PO Last administered on 01/21/19 09:26; Admin Dose 40 MG; Start 01/17/19 at 07:00 Miscellaneous Information 1 ea NOTE XX ; Start 01/16/19 at 17:00 Glucose (Glutose) 15 gm Q15M PRN PO DECREASED GLUCOSE; Start 01/16/19 at 17:00 Glucose (Glutose) 22.5 gm Q15M PRN PO DECREASED GLUCOSE; Start 01/16/19 at 17:00 Dextrose (D50w Syringe) 25 ml Q15M PRN IV DECREASED GLUCOSE; Start 01/16/19 at 17:00 Dextrose (D50w Syringe) 50 ml Q15M PRN IV DECREASED GLUCOSE; Start 01/16/19 at 17:00 Glucagon (Glucagen) 1 mg Q15M PRN IM DECREASED GLUCOSE; Start 01/16/19 at 17:00 Glucose (Glutose) 15 gm Q15M PRN BUCCAL DECREASED GLUCOSE; Start 01/16/19 at 17:00 IV Flush (NS 3 ml) 3 ml PER PROTOCOL IV ; Start 01/16/19 at 17:30 Heparin Sodium (Porcine) (Heparin (5000 Units/1ml)) 5,000 unit Q12 SC Last administered on 01/21/19at 09:39; Admin Dose 5,000 UNIT; Start 01/16/19 at 21:00 Methimazole (Tapazole) 40 mg BID PO Last administered on 01/21/19 09:26; Admin Dose 40 MG; Start 01/16/19 at 21:00 Insulin Aspart (Novolog Insulin Pen) NOVOLOG *MILD* ALGORITHM WITH MEALS BEDTIME SC Last administered on 01/19/19at 17:18; Admin Dose 1 UNIT; Start 01/17/19 at 11:50 Acetaminophen (Tylenol Tab) 650 mg Q6H PRN PO MILD PAIN(1-3)OR ELEVATED TEMP Last administered on 01/20/19 06:41; Admin Dose 650 MG; Start 01/19/19 at 00:30 Propranolol HCl (Inderal) 40 mg Q6 PO Last administered on 01/21/19 12:22; Admin Dose 40 MG; Start 01/19/19 at 12:00 Cholestyramine Resin (Questran Light) 4 gm BID PO Last administered on 01/21/19 09:28; Admin Dose 4 GM; Start 01/20/19 at 21:00; Stop 02/10/19 at 20:59 Docusate Sodium/ Ferrous Fumarate (Arabella-Sequels) 1 tab PC LUNCH PO Last administered on 01/21/19 12:22; Admin Dose 1 TAB; Start 01/20/19 at 12:50; Stop 02/10/19 at 12:49 Polyethylene Glycol (Miralax) 17 gm DAILY PRN PO CONSTIPATION; Start 01/20/19 at 14:00 Insulin Glargine (Lantus) 7 units DAILY@2000 SC ; Start 01/21/19 at 20:00 ANA GARCIA MD Jan 21, 2019 17:52
[2019-01-21] MEDS: ACETAMINOPHEN 325 MG TAB PO PRN (17:57)
[2019-01-21] MEDS: INSULIN GLARGINE [LANTus] (100 UNITS/ML) SYG SC SCH (21:54)
[2019-01-21] MEDS: METHIMAZOLE 10 MG TAB PO SCH (21:55)
[2019-01-22] VITALS: BP 100/59; PULSE 87; RESP 17
[2019-01-22 04:00] VITALS: BP 110/55; PULSE 93; RESP 18
[2019-01-22] MEDS: PROPRANOLOL 40 MG TAB PO SCH ×3 (05:51→18:00)
[2019-01-22 07:23] VITALS: BP 111/60; PULSE 91; RESP 20
[2019-01-22] MEDS: INSULIN ASPART [NOVOLOG] 3 ML PEN SC SCH ×4 (07:55→20:33)
[2019-01-22] MEDS: metFORMIN 500 MG TAB PO SCH ×2 (09:24→20:30)
[2019-01-22] MEDS: PANTOPRAZOLE (EC) 40 MG TAB PO SCH (09:24)
[2019-01-22] MEDS: CHOLESTYRAMINE (LIGHT) 4 GM PACKET PO SCH ×2 (09:24→20:30)
[2019-01-22] MEDS: HEPARIN 5,000 UNIT/1 ML VIAL SC SCH ×2 (09:32→21:05)
[2019-01-22] MEDS ORDERED: HYDROCODONE/APAP (10/325) TAB PO ONE (10:00)
[2019-01-22 11:19] VITALS: BP 103/57; PULSE 95; RESP 20
[2019-01-22] MEDS: ACETAMINOPHEN 325 MG TAB PO PRN (11:55)
[2019-01-22] MEDS: METHIMAZOLE 10 MG TAB PO SCH ×2 (11:55→20:30)
[2019-01-22] MEDS: FERROUS FUMARATE (SR) TAB PO SCH (12:02)
--- NOTE | 2019-01-22 13:38 | CONS ---
Assessment/Plan Assessment/Plan Hospital Course (Demo Recall) 58 yo with hyperthyroid adm with SOB has microcytic anemia , iron studies show parameters c/w anemia of chronic disease. there is adequate ferritin await hemoglobin electrophoresis to evaluate for genetic anemia await SPEP ordered flow cytometry to evaluate monocytosis if above w/u is negative, recommend bone marrow biopsy I suspect his anemia is contributing to his subjective feeling of dyspnea Consultation Date/Type/Reason Admit Date/Time Jan 16, 2019 at 15:29 Initial Consult Date 01/16/19 Requesting Provider: YOLI ZAMORANO Date/Time of Note DATE: 01/22/19 TIME: 13:31 24 HR Interval Summary Free Text/Dictation SPEP pending hemoglobinopathy eval pending Exam/Review of Systems Exam Vitals Vital Signs Date Temp Pulse Resp B/P (MAP) Pulse Ox O2 O2 Flow FiO2 Time Delivery Rate 01/22/19 100.2 11:55 01/22/19 95 20 103/57 98 11:19 (72) 01/20/19 Room Air 08:08 Intake and Output 01/21/19 01/21/19 01/22/19 1515:00 23:00 07:00 IntakeIntake Total 750 ml BalanceBalance 750 ml Constitutional: alert, oriented, frail Psych: anxiety Head: normocephalic, atraumatic Eyes: nl conjunctiva, EOMI, nl lids, nl sclera, PERRL ENMT: nl external ears & nose Neck: supple Gastrointestinal: soft Musculoskeletal: range of motion Extremities: normal pulses Neurological: DISC INSPECTOR II-XII intact, nl mental status, nl speech, nl strength Skin: nl turgor; No rash or lesions Lymph: nl lymph nodes Results Result Diagram: 01/22/19 0632 01/22/19 0632 Results 24hrs Laboratory Tests Test 01/21/19 17:50 01/21/19 20:55 01/22/19 06:32 01/22/19 06:33 Bedside Glucose 99 122 White Blood Count 6.2 Red Blood Count 3.49 L Hemoglobin 8.4 L Hematocrit 27.3 L Mean Corpuscular 78.2 L Volume Mean Corpuscular 24.1 L Hemoglobin Mean Corpuscular 30.8 L Hemoglobin Concent Red Cell 17.2 H Distribution Width Platelet Count 203 Mean Platelet Volume 9.2 Immature 0.600 H Granulocytes % Neutrophils % 52.7 Lymphocytes % 25.6 Monocytes % 20.3 H Eosinophils % 0.5 Basophils % 0.3 Nucleated Red Blood 0.0 Cells % Immature 0.040 H Granulocytes # Neutrophils # 3.3 Lymphocytes # 1.6 Monocytes # 1.3 H Eosinophils # 0.0 Basophils # 0.0 Nucleated Red Blood 0.0 Cells # Sodium Level 131 L Potassium Level 4.7 Chloride Level 96 L Carbon Dioxide Level 27 Anion Gap 8 Blood Urea Nitrogen 9 Creatinine 0.59 L Est Glomerular > 60 Filtrat Rate mL/min Glucose Level 70 Calcium Level 9.8 Free Thyroxine 5.31 H Free 5.70 H Triiodothyronine (T3) pg/mL Erythrocyte 80 H Sedimentation Rate Test 01/22/19 07:59 01/22/19 11:59 Bedside Glucose 70 100 Medications Medication Current Medications Nitroglycerin (Nitroglycerin (Sl Tab) 0.4 Mg) 1 tab Q5M UP TO 3 DOSES PRN SL .CHEST PAIN; Start 01/16/19 at 14:30 Metformin HCl (Glucophage) 500 mg BID PO Last administered on 01/22/19at 09:24; Admin Dose 500 MG; Start 01/16/19 at 21:00 Ondansetron HCl (Zofran Tab) 4 mg DAILY PRN PO NAUSEA AND/OR VOMITING Last administered on 01/22/19at 09:59; Admin Dose 4 MG; Start 01/16/19 at 16:30 Pantoprazole (Protonix Tab) 40 mg AC BREAKFAST PO Last administered on 01/22/19at 09:24; Admin Dose 40 MG; Start 01/17/19 at 07:00 Miscellaneous Information 1 ea NOTE XX ; Start 01/16/19 at 17:00 Glucose (Glutose) 15 gm Q15M PRN PO DECREASED GLUCOSE; Start 01/16/19 at 17:00 Glucose (Glutose) 22.5 gm Q15M PRN PO DECREASED GLUCOSE; Start 01/16/19 at 17:00 Dextrose (D50w Syringe) 25 ml Q15M PRN IV DECREASED GLUCOSE; Start 01/16/19 at 17:00 Dextrose (D50w Syringe) 50 ml Q15M PRN IV DECREASED GLUCOSE; Start 01/16/19 at 17:00 Glucagon (Glucagen) 1 mg Q15M PRN IM DECREASED GLUCOSE; Start 01/16/19 at 17:00 Glucose (Glutose) 15 gm Q15M PRN BUCCAL DECREASED GLUCOSE; Start 01/16/19 at 17:00 IV Flush (NS 3 ml) 3 ml PER PROTOCOL IV ; Start 01/16/19 at 17:30 Heparin Sodium (Porcine) (Heparin (5000 Units/1ml)) 5,000 unit Q12 SC Last administered on 01/22/19 09:32; Admin Dose 5,000 UNIT; Start 01/16/19 at 21:00 Insulin Aspart (Novolog Insulin Pen) NOVOLOG *MILD* ALGORITHM WITH MEALS BEDTIME SC Last administered on 01/19/19 17:18; Admin Dose 1 UNIT; Start 01/17/19 at 11:50 Acetaminophen (Tylenol Tab) 650 mg Q6H PRN PO MILD PAIN(1-3)OR ELEVATED TEMP Last administered on 01/22/19 11:55; Admin Dose 650 MG; Start 01/19/19 at 00:30 Propranolol HCl (Inderal) 40 mg Q6 PO Last administered on 01/22/19 11:56; Admin Dose 40 MG; Start 01/19/19 at 12:00 Cholestyramine Resin (Questran Light) 4 gm BID PO Last administered on 01/22/19 09:24; Admin Dose 4 GM; Start 01/20/19 at 21:00; Stop 02/10/19 at 20:59 Docusate Sodium/ Ferrous Fumarate (Arabella-Sequels) 1 tab PC LUNCH PO Last administered on 01/22/19 12:02; Admin Dose 1 TAB; Start 01/20/19 at 12:50; Stop 02/10/19 at 12:49 Polyethylene Glycol (Miralax) 17 gm DAILY PRN PO CONSTIPATION; Start 01/20/19 at 14:00 Insulin Glargine (Lantus) 7 units DAILY@2000 SC Last administered on 01/21/19 21:54; Admin Dose 7 UNITS; Start 01/21/19 at 20:00 Methimazole (Tapazole) 40 mg BID PO Last administered on 01/22/19 11:55; Admin Dose 40 MG; Start 01/21/19 at 21:02; Stop 01/24/19 at 10:00 NAYAN OAKLEY Jan 22, 2019 13:38
[2019-01-22 15:16] VITALS: BP 99/56; PULSE 84; RESP 20
--- NOTE | 2019-01-22 17:18 | PN ---
Date/Time of Note Date/Time of Note DATE: 01/22/19 TIME: 17:17 Assessment/Plan VTE Prophylaxis Risk score (from Nsg)>0 risk: 3 SCD applied (from Nsg): Yes Pharmacological prophylaxis: heparin Lines/Catheters IV Catheter Type (from Nrs): Saline Lock Assessment/Plan Hospital Course 58 yo male with history of hyperthyroidism (on methimazole and propranolol), DMII, anemia presents with MANDEL. Found to have continued hyperthyroidism and now with hyponatremia Hyperthyroid: - Plan for [facility] per Dr Alvarado - Continue methimazole and proprarnolol as well as cholestyramine Dyspena on exertion: - Recent TTE showed normal cardiac function so doubt due to cardiomyopathy - Anemia certainly playing a role - Palpitations not helping Anemia: - Iron stores adequate - SPEP pending - I have asked Dr Sanchez to assist with workup DMII: - Can continue metformin - Started basal insulin Hyponatremia: - Urine studies suggest SIADH. FW restriction Discharge plan is pending management of hyperthyroidism. Can dc to self care when stable Result Diagram: 01/22/19 0632 01/22/19 0632 Results 24hrs Laboratory Tests Test 01/21/19 17:50 01/21/19 20:55 01/22/19 06:32 01/22/19 06:33 Bedside Glucose 99 122 White Blood Count 6.2 Red Blood Count 3.49 L Hemoglobin 8.4 L Hematocrit 27.3 L Mean Corpuscular 78.2 L Volume Mean Corpuscular 24.1 L Hemoglobin Mean Corpuscular 30.8 L Hemoglobin Concent Red Cell 17.2 H Distribution Width Platelet Count 203 Mean Platelet Volume 9.2 Immature 0.600 H Granulocytes % Neutrophils % 52.7 Lymphocytes % 25.6 Monocytes % 20.3 H Eosinophils % 0.5 Basophils % 0.3 Nucleated Red Blood 0.0 Cells % Immature 0.040 H Granulocytes # Neutrophils # 3.3 Lymphocytes # 1.6 Monocytes # 1.3 H Eosinophils # 0.0 Basophils # 0.0 Nucleated Red Blood 0.0 Cells # Sodium Level 131 L Potassium Level 4.7 Chloride Level 96 L Carbon Dioxide Level 27 Anion Gap 8 Blood Urea Nitrogen 9 Creatinine 0.59 L Est Glomerular > 60 Filtrat Rate mL/min Glucose Level 70 Calcium Level 9.8 Free Thyroxine 5.31 H Free 5.70 H Triiodothyronine (T3) pg/mL Erythrocyte 80 H Sedimentation Rate Test 01/22/19 07:59 01/22/19 11:59 Bedside Glucose 70 100 Subjective 24 Hr Interval Summary Free Text/Dictation No change to clinical status. Awaiting insurance auth for ablation. He is frustrated to still be waiting Exam/Review of Systems Exam Vitals Vital Signs Date Temp Pulse Resp B/P (MAP) Pulse Ox O2 O2 Flow FiO2 Time Delivery Rate 01/22/19 98.4 15:29 01/22/19 84 20 99/56 (70) 100 15:16 01/20/19 Room Air 08:08 Intake and Output 01/21/19 01/21/19 01/22/19 1515:00 23:00 07:00 IntakeIntake Total 750 ml BalanceBalance 750 ml Constitutional: alert, oriented, well developed Psych: no complaints, nl mood/affect Head: normocephalic, atraumatic Eyes: nl conjunctiva, EOMI, nl lids, nl sclera, PERRL ENMT: nl external ears & nose, nl lips & teeth, nl nasal mucosa & septum Neck: supple, non-tender Respiratory: clear to auscultation, normal air movement Cardiovascular: regular rate and rhythm, nl pulses Gastrointestinal: soft, nl liver, spleen, non-tender Musculoskeletal: nl extremities to inspection, nl gait and stance Extremities: normal pulses Neurological: LENS BLOCK GAUGER II-XII intact, nl mental status, nl speech, nl strength Skin: nl turgor; No rash or lesions Lymph: nl lymph nodes Results Results 24hrs Laboratory Tests Test 01/21/19 17:50 01/21/19 20:55 01/22/19 06:32 01/22/19 06:33 Bedside Glucose 99 122 White Blood Count 6.2 Red Blood Count 3.49 L Hemoglobin 8.4 L Hematocrit 27.3 L Mean Corpuscular 78.2 L Volume Mean Corpuscular 24.1 L Hemoglobin Mean Corpuscular 30.8 L Hemoglobin Concent Red Cell 17.2 H Distribution Width Platelet Count 203 Mean Platelet Volume 9.2 Immature 0.600 H Granulocytes % Neutrophils % 52.7 Lymphocytes % 25.6 Monocytes % 20.3 H Eosinophils % 0.5 Basophils % 0.3 Nucleated Red Blood 0.0 Cells % Immature 0.040 H Granulocytes # Neutrophils # 3.3 Lymphocytes # 1.6 Monocytes # 1.3 H Eosinophils # 0.0 Basophils # 0.0 Nucleated Red Blood 0.0 Cells # Sodium Level 131 L Potassium Level 4.7 Chloride Level 96 L Carbon Dioxide Level 27 Anion Gap 8 Blood Urea Nitrogen 9 Creatinine 0.59 L Est Glomerular > 60 Filtrat Rate mL/min Glucose Level 70 Calcium Level 9.8 Free Thyroxine 5.31 H Free 5.70 H Triiodothyronine (T3) pg/mL Erythrocyte 80 H Sedimentation Rate Test 01/22/19 07:59 01/22/19 11:59 Bedside Glucose 70 100 Medications Medication Current Medications Nitroglycerin (Nitroglycerin (Sl Tab) 0.4 Mg) 1 tab Q5M UP TO 3 DOSES PRN SL .CHEST PAIN; Start 01/16/19 at 14:30 Metformin HCl (Glucophage) 500 mg BID PO Last administered on 01/22/19at 09:24; Admin Dose 500 MG; Start 01/16/19 at 21:00 Ondansetron HCl (Zofran Tab) 4 mg DAILY PRN PO NAUSEA AND/OR VOMITING Last administered on 01/22/19at 09:59; Admin Dose 4 MG; Start 01/16/19 at 16:30 Pantoprazole (Protonix Tab) 40 mg AC BREAKFAST PO Last administered on 01/22/19at 09:24; Admin Dose 40 MG; Start 01/17/19 at 07:00 Miscellaneous Information 1 ea NOTE XX ; Start 01/16/19 at 17:00 Glucose (Glutose) 15 gm Q15M PRN PO DECREASED GLUCOSE; Start 01/16/19 at 17:00 Glucose (Glutose) 22.5 gm Q15M PRN PO DECREASED GLUCOSE; Start 01/16/19 at 17:00 Dextrose (D50w Syringe) 25 ml Q15M PRN IV DECREASED GLUCOSE; Start 01/16/19 at 17:00 Dextrose (D50w Syringe) 50 ml Q15M PRN IV DECREASED GLUCOSE; Start 01/16/19 at 17:00 Glucagon (Glucagen) 1 mg Q15M PRN IM DECREASED GLUCOSE; Start 01/16/19 at 17:00 Glucose (Glutose) 15 gm Q15M PRN BUCCAL DECREASED GLUCOSE; Start 01/16/19 at 17:00 IV Flush (NS 3 ml) 3 ml PER PROTOCOL IV ; Start 01/16/19 at 17:30 Heparin Sodium (Porcine) (Heparin (5000 Units/1ml)) 5,000 unit Q12 SC Last administered on 01/22/19 09:32; Admin Dose 5,000 UNIT; Start 01/16/19 at 21:00 Insulin Aspart (Novolog Insulin Pen) NOVOLOG *MILD* ALGORITHM WITH MEALS BEDTIME SC Last administered on 01/19/19 17:18; Admin Dose 1 UNIT; Start 01/17/19 at 11:50 Acetaminophen (Tylenol Tab) 650 mg Q6H PRN PO MILD PAIN(1-3)OR ELEVATED TEMP Last administered on 01/22/19 11:55; Admin Dose 650 MG; Start 01/19/19 at 00:30 Propranolol HCl (Inderal) 40 mg Q6 PO Last administered on 01/22/19 11:56; Admin Dose 40 MG; Start 01/19/19 at 12:00 Cholestyramine Resin (Questran Light) 4 gm BID PO Last administered on 01/22/19 09:24; Admin Dose 4 GM; Start 01/20/19 at 21:00; Stop 02/10/19 at 20:59 Docusate Sodium/ Ferrous Fumarate (Arabella-Sequels) 1 tab PC LUNCH PO Last administered on 01/22/19 12:02; Admin Dose 1 TAB; Start 01/20/19 at 12:50; Stop 02/10/19 at 12:49 Polyethylene Glycol (Miralax) 17 gm DAILY PRN PO CONSTIPATION; Start 01/20/19 at 14:00 Insulin Glargine (Lantus) 7 units DAILY@2000 SC Last administered on 01/21/19 21:54; Admin Dose 7 UNITS; Start 01/21/19 at 20:00 Methimazole (Tapazole) 40 mg BID PO Last administered on 01/22/19 11:55; Admin Dose 40 MG; Start 01/21/19 at 21:02; Stop 01/24/19 at 10:00 KIRK AREVALO MD Jan 22, 2019 17:18
[2019-01-22 19:44] VITALS: BP 113/65; PULSE 88; RESP 18
[2019-01-22] MEDS: INSULIN GLARGINE [LANTus] (100 UNITS/ML) SYG SC SCH (21:06)
[2019-01-23] VITALS: BP 117/78; PULSE 89; RESP 19
[2019-01-23] MEDS: PANTOPRAZOLE (EC) 40 MG TAB PO SCH (07:20)
[2019-01-23] MEDS: PROPRANOLOL 40 MG TAB PO SCH ×4 (07:29→17:52)
[2019-01-23] MEDS: INSULIN ASPART [NOVOLOG] 3 ML PEN SC SCH ×4 (07:50→21:00)
[2019-01-23 08:27] VITALS: BP 98/55; PULSE 87; RESP 18
[2019-01-23] MEDS: metFORMIN 500 MG TAB PO SCH ×2 (09:06→21:01)
[2019-01-23] MEDS: HEPARIN 5,000 UNIT/1 ML VIAL SC SCH ×2 (09:24→21:06)
[2019-01-23] MEDS: METHIMAZOLE 10 MG TAB PO SCH ×2 (09:48→21:02)
[2019-01-23] MEDS: CHOLESTYRAMINE (LIGHT) 4 GM PACKET PO SCH ×2 (10:48→21:03)
[2019-01-23] MEDS: FERROUS FUMARATE (SR) TAB PO SCH (13:05)
--- NOTE | 2019-01-23 13:41 | CONS ---
Assessment/Plan Assessment/Plan Problems: (1) Hyperthyroidism Status: Acute Comment: He is on medications to control situation. Please note that this generally can be done as an outpatient but if we are forced to do his inpatient can still be done that way. I have put timelines in for the medications to come off so that he will be ready for I-131 ablation and I will speak with a nuclear medicine physician tomorrow when she is on site. Regarding the IPA and a letter of agreement we see preferred IPA this patient in the hospital already, but preferred IPA has never wished to perform a letter of agreement or arrangement with us for outpatient services. Since this is an inpatient this is already taking care of. In addition the CPT codes are available from our Department of nuclear medicine. (2) Anemia Status: Chronic Comment: The patient has evidence of active inflammation. At this workup needs to be completed and the source of the active inflammation needs to be looked into. (3) Diabetes mellitus type 2 in nonobese Status: Chronic Comment: Adequate control Consultation Date/Type/Reason Admit Date/Time Jan 16, 2019 at 15:29 Initial Consult Date 01/16/19 Type of Consult Endocrinology Reason for Consultation Persistent thyrotoxicosis Requesting Provider: YOLI ZAMORANO Date/Time of Note DATE: 01/23/19 TIME: 13:38 24 HR Interval Summary Free Text/Dictation Patient reports he feels a little bit better but is still having Some swallowing symptoms. Exam/Review of Systems Exam Vitals Vital Signs Date Temp Pulse Resp B/P (MAP) Pulse Ox O2 O2 Flow FiO2 Time Delivery Rate 01/23/19 98.0 87 18 98/55 (69) 98 Room Air 08:27 Intake and Output 01/22/19 01/22/19 01/23/19 1515:00 23:00 07:00 IntakeIntake Total 850 ml BalanceBalance 850 ml Exam No change in examination Results Result Diagram: 01/22/19 0632 01/22/19 0632 Results 24hrs Laboratory Tests Test 01/22/19 17:58 01/22/19 20:29 01/23/19 08:41 01/23/19 12:24 Bedside Glucose 85 92 93 89 Medications Medication Current Medications Nitroglycerin (Nitroglycerin (Sl Tab) 0.4 Mg) 1 tab Q5M UP TO 3 DOSES PRN SL .CHEST PAIN; Start 01/16/19 at 14:30 Metformin HCl (Glucophage) 500 mg BID PO Last administered on 01/23/19at 09:06; Admin Dose 500 MG; Start 01/16/19 at 21:00 Ondansetron HCl (Zofran Tab) 4 mg DAILY PRN PO NAUSEA AND/OR VOMITING Last administered on 01/22/19 09:59; Admin Dose 4 MG; Start 01/16/19 at 16:30 Pantoprazole (Protonix Tab) 40 mg AC BREAKFAST PO Last administered on 01/22/19 09:24; Admin Dose 40 MG; Start 01/17/19 at 07:00 Miscellaneous Information 1 ea NOTE XX ; Start 01/16/19 at 17:00 Glucose (Glutose) 15 gm Q15M PRN PO DECREASED GLUCOSE; Start 01/16/19 at 17:00 Glucose (Glutose) 22.5 gm Q15M PRN PO DECREASED GLUCOSE; Start 01/16/19 at 17:00 Dextrose (D50w Syringe) 25 ml Q15M PRN IV DECREASED GLUCOSE; Start 01/16/19 at 17:00 Dextrose (D50w Syringe) 50 ml Q15M PRN IV DECREASED GLUCOSE; Start 01/16/19 at 17:00 Glucagon (Glucagen) 1 mg Q15M PRN IM DECREASED GLUCOSE; Start 01/16/19 at 17:00 Glucose (Glutose) 15 gm Q15M PRN BUCCAL DECREASED GLUCOSE; Start 01/16/19 at 17:00 IV Flush (NS 3 ml) 3 ml PER PROTOCOL IV ; Start 01/16/19 at 17:30 Heparin Sodium (Porcine) (Heparin (5000 Units/1ml)) 5,000 unit Q12 SC Last administered on 01/23/19at 09:24; Admin Dose 5,000 UNIT; Start 01/16/19 at 21:00 Insulin Aspart (Novolog Insulin Pen) NOVOLOG *MILD* ALGORITHM WITH MEALS BEDTIME SC Last administered on 01/19/19at 17:18; Admin Dose 1 UNIT; Start 01/17/19 at 11:50 Acetaminophen (Tylenol Tab) 650 mg Q6H PRN PO MILD PAIN(1-3)OR ELEVATED TEMP Last administered on 01/22/19at 11:55; Admin Dose 650 MG; Start 01/19/19 at 00:30 Propranolol HCl (Inderal) 40 mg Q6 PO Last administered on 01/23/19 13:05; Admin Dose 40 MG; Start 01/19/19 at 12:00 Cholestyramine Resin (Questran Light) 4 gm BID PO Last administered on 01/23/19 10:48; Admin Dose 4 GM; Start 01/20/19 at 21:00; Stop 02/10/19 at 20:59 Docusate Sodium/ Ferrous Fumarate (Arabella-Sequels) 1 tab PC LUNCH PO Last administered on 01/23/19 13:05; Admin Dose 1 TAB; Start 01/20/19 at 12:50; Stop 02/10/19 at 12:49 Polyethylene Glycol (Miralax) 17 gm DAILY PRN PO CONSTIPATION Last administered on 01/23/19 09:09; Admin Dose 17 GM; Start 01/20/19 at 14:00 Insulin Glargine (Lantus) 7 units DAILY@2000 SC Last administered on 01/22/19 21:06; Admin Dose 7 UNITS; Start 01/21/19 at 20:00 Methimazole (Tapazole) 40 mg BID PO Last administered on 01/23/19 09:48; Admin Dose 40 MG; Start 01/21/19 at 21:02; Stop 01/24/19 at 10:00 ANA GARCIA MD Jan 23, 2019 13:41
--- NOTE | 2019-01-23 13:53 | CONS ---
Assessment/Plan Assessment/Plan Hospital Course (Demo Recall) 58 yo with hyperthyroid and with SOB #Anemia -labs are most consistent with anemia of chronic inflammation given the low TIBC and high ferritin -Hb electropheresis ordered to rule out thalassemia -SPEP negative -Flow cytometry pending -if above w/u is negative, recommend bone marrow biopsy -I suspect his anemia is contributing to his subjective feeling of dyspnea -continue po iron. iron saturation noted #Hyperthryroidism -continue methimazole -this may also be a contributing factor to his anemia #DM -continue current meds Consultation Date/Type/Reason Admit Date/Time Jan 16, 2019 at 15:29 Initial Consult Date 01/16/19 Type of Consult hematology Reason for Consultation anemia Requesting Provider: YOLI ZAMORANO Date/Time of Note DATE: 01/23/19 TIME: 13:38 24 HR Interval Summary Free Text/Dictation pt started on methimazole Exam/Review of Systems Exam Vitals Vital Signs Date Temp Pulse Resp B/P (MAP) Pulse Ox O2 O2 Flow FiO2 Time Delivery Rate 01/23/19 98.0 87 18 98/55 (69) 98 Room Air 08:27 Intake and Output 01/22/19 01/22/19 01/23/19 1515:00 23:00 07:00 IntakeIntake Total 850 ml BalanceBalance 850 ml Constitutional: alert, frail Psych: depression Head: normocephalic Eyes: nl conjunctiva ENMT: nl external ears & nose Neck: supple Respiratory: clear to auscultation Cardiovascular: regular rate and rhythm Gastrointestinal: soft Musculoskeletal: nl extremities to inspection Results Result Diagram: 01/22/19 0632 01/22/19 0632 Results 24hrs Laboratory Tests Test 01/22/19 17:58 01/22/19 20:29 01/23/19 08:41 01/23/19 12:24 Bedside Glucose 85 92 93 89 Medications Medication Current Medications Nitroglycerin (Nitroglycerin (Sl Tab) 0.4 Mg) 1 tab Q5M UP TO 3 DOSES PRN SL .CHEST PAIN; Start 01/16/19 at 14:30 Metformin HCl (Glucophage) 500 mg BID PO Last administered on 01/23/19at 09:06; Admin Dose 500 MG; Start 01/16/19 at 21:00 Ondansetron HCl (Zofran Tab) 4 mg DAILY PRN PO NAUSEA AND/OR VOMITING Last administered on 01/22/19 09:59; Admin Dose 4 MG; Start 01/16/19 at 16:30 Pantoprazole (Protonix Tab) 40 mg AC BREAKFAST PO Last administered on 01/22/19 09:24; Admin Dose 40 MG; Start 01/17/19 at 07:00 Miscellaneous Information 1 ea NOTE XX ; Start 01/16/19 at 17:00 Glucose (Glutose) 15 gm Q15M PRN PO DECREASED GLUCOSE; Start 01/16/19 at 17:00 Glucose (Glutose) 22.5 gm Q15M PRN PO DECREASED GLUCOSE; Start 01/16/19 at 17:00 Dextrose (D50w Syringe) 25 ml Q15M PRN IV DECREASED GLUCOSE; Start 01/16/19 at 17:00 Dextrose (D50w Syringe) 50 ml Q15M PRN IV DECREASED GLUCOSE; Start 01/16/19 at 17:00 Glucagon (Glucagen) 1 mg Q15M PRN IM DECREASED GLUCOSE; Start 01/16/19 at 17:00 Glucose (Glutose) 15 gm Q15M PRN BUCCAL DECREASED GLUCOSE; Start 01/16/19 at 17:00 IV Flush (NS 3 ml) 3 ml PER PROTOCOL IV ; Start 01/16/19 at 17:30 Heparin Sodium (Porcine) (Heparin (5000 Units/1ml)) 5,000 unit Q12 SC Last administered on 01/23/19 09:24; Admin Dose 5,000 UNIT; Start 01/16/19 at 21:00 Insulin Aspart (Novolog Insulin Pen) NOVOLOG *MILD* ALGORITHM WITH MEALS BEDTIME SC Last administered on 01/19/19at 17:18; Admin Dose 1 UNIT; Start 01/17/19 at 11:50 Acetaminophen (Tylenol Tab) 650 mg Q6H PRN PO MILD PAIN(1-3)OR ELEVATED TEMP Last administered on 01/22/19 11:55; Admin Dose 650 MG; Start 01/19/19 at 00:30 Propranolol HCl (Inderal) 40 mg Q6 PO Last administered on 01/23/19 13:05; Admin Dose 40 MG; Start 01/19/19 at 12:00 Cholestyramine Resin (Questran Light) 4 gm BID PO Last administered on 01/23/19at 10:48; Admin Dose 4 GM; Start 01/20/19 at 21:00; Stop 02/10/19 at 20:59 Docusate Sodium/ Ferrous Fumarate (Arabella-Sequels) 1 tab PC LUNCH PO Last administered on 01/23/19 13:05; Admin Dose 1 TAB; Start 01/20/19 at 12:50; Stop 02/10/19 at 12:49 Polyethylene Glycol (Miralax) 17 gm DAILY PRN PO CONSTIPATION Last administered on 01/23/19 09:09; Admin Dose 17 GM; Start 01/20/19 at 14:00 Insulin Glargine (Lantus) 7 units DAILY@2000 SC Last administered on 01/22/19 21:06; Admin Dose 7 UNITS; Start 01/21/19 at 20:00 Methimazole (Tapazole) 40 mg BID PO Last administered on 01/23/19 09:48; Admin Dose 40 MG; Start 01/21/19 at 21:02; Stop 01/24/19 at 10:00 HOLDEN CROWE M.D. Jan 23, 2019 13:52
[2019-01-23 15:03] VITALS: BP 109/63; PULSE 88; RESP 18
--- NOTE | 2019-01-23 17:05 | PN ---
Date/Time of Note Date/Time of Note DATE: 01/23/19 TIME: 17:04 Assessment/Plan VTE Prophylaxis Risk score (from Nsg)>0 risk: 2 SCD applied (from Nsg): Yes Pharmacological prophylaxis: heparin Lines/Catheters IV Catheter Type (from Nrsg): Saline Lock Assessment/Plan Hospital Course 58 yo male with history of hyperthyroidism (on methimazole and propranolol), DMII, anemia presents with MANDEL. Found to have continued hyperthyroidism and now with hyponatremia Hyperthyroid: - Plan for POOLE per Dr Alvarado pending insurance authorization - Continue methimazole and proprarnolol as well as cholestyramine Dyspena on exertion: - Recent TTE showed normal cardiac function so doubt due to cardiomyopathy - Anemia certainly playing a role Anemia: - Iron stores adequate - SPEP negative - Flow pending - Possible BM biopsy - Iron studies suggestive of chronic inflammation - Hematology follwoing DMII: - Can continue metformin - Started basal insulin Hyponatremia: - Urine studies suggest SIADH. FW restriction Discharge plan is pending management of hyperthyroidism. Can dc to self care when POOLE completed Result Diagram: 01/22/19 0632 01/22/19 0632 Results 24hrs Laboratory Tests Test 01/22/19 17:58 01/22/19 20:29 01/23/19 08:41 01/23/19 12:24 Bedside Glucose 85 92 93 89 Subjective 24 Hr Interval Summary Free Text/Dictation No change to clinical status Awaiting approval of POOLE treatment Exam/Review of Systems Exam Vitals Vital Signs Date Temp Pulse Resp B/P (MAP) Pulse Ox O2 O2 Flow FiO2 Time Delivery Rate 01/23/19 88.2 88 18 109/63 94 Room Air 15:03 (78) Intake and Output 01/22/19 01/22/19 01/23/19 1515:00 23:00 07:00 IntakeIntake Total 850 ml BalanceBalance 850 ml Constitutional: alert, oriented, well developed Psych: no complaints, nl mood/affect Head: normocephalic, atraumatic Eyes: nl conjunctiva, EOMI, nl lids, nl sclera, PERRL ENMT: nl external ears & nose, nl lips & teeth, nl nasal mucosa & septum Neck: supple, non-tender Respiratory: clear to auscultation, normal air movement Cardiovascular: regular rate and rhythm, nl pulses Gastrointestinal: soft, nl liver, spleen, non-tender Musculoskeletal: nl extremities to inspection, nl gait and stance Extremities: normal pulses Neurological: SAFETY ANALYST II-XII intact, nl mental status, nl speech, nl strength Skin: nl turgor; No rash or lesions Lymph: nl lymph nodes Results Results 24hrs Laboratory Tests Test 01/22/19 17:58 01/22/19 20:29 01/23/19 08:41 01/23/19 12:24 Bedside Glucose 85 92 93 89 Medications Medication Current Medications Nitroglycerin (Nitroglycerin (Sl Tab) 0.4 Mg) 1 tab Q5M UP TO 3 DOSES PRN SL .CHEST PAIN; Start 01/16/19 at 14:30 Metformin HCl (Glucophage) 500 mg BID PO Last administered on 01/23/19at 09:06; Admin Dose 500 MG; Start 01/16/19 at 21:00 Ondansetron HCl (Zofran Tab) 4 mg DAILY PRN PO NAUSEA AND/OR VOMITING Last administered on 01/22/19at 09:59; Admin Dose 4 MG; Start 01/16/19 at 16:30 Pantoprazole (Protonix Tab) 40 mg AC BREAKFAST PO Last administered on 01/22at 09:24; Admin Dose 40 MG; Start 01/17/19 at 07:00 Miscellaneous Information 1 ea NOTE XX ; Start 01/16/19 at 17:00 Glucose (Glutose) 15 gm Q15M PRN PO DECREASED GLUCOSE; Start 01/16/19 at 17:00 Glucose (Glutose) 22.5 gm Q15M PRN PO DECREASED GLUCOSE; Start 01/16/19 at 17:00 Dextrose (D50w Syringe) 25 ml Q15M PRN IV DECREASED GLUCOSE; Start 01/16/19 at 17:00 Dextrose (D50w Syringe) 50 ml Q15M PRN IV DECREASED GLUCOSE; Start 01/16/19 at 17:00 Glucagon (Glucagen) 1 mg Q15M PRN IM DECREASED GLUCOSE; Start 01/16/19 at 17:00 Glucose (Glutose) 15 gm Q15M PRN BUCCAL DECREASED GLUCOSE; Start 01/16/19 at 17:00 IV Flush (NS 3 ml) 3 ml PER PROTOCOL IV ; Start 01/16/19 at 17:30 Heparin Sodium (Porcine) (Heparin (5000 Units/1ml)) 5,000 unit Q12 SC Last administered on 01/23/19 09:24; Admin Dose 5,000 UNIT; Start 01/16/19 at 21:00 Insulin Aspart (Novolog Insulin Pen) NOVOLOG *MILD* ALGORITHM WITH MEALS BEDTIME SC Last administered on 01/19/19 17:18; Admin Dose 1 UNIT; Start 01/17/19 at 11:50 Acetaminophen (Tylenol Tab) 650 mg Q6H PRN PO MILD PAIN(1-3)OR ELEVATED TEMP Last administered on 01/22/19 11:55; Admin Dose 650 MG; Start 01/19/19 at 00:30 Propranolol HCl (Inderal) 40 mg Q6 PO Last administered on 01/23/19 13:05; Admin Dose 40 MG; Start 01/19/19 at 12:00 Cholestyramine Resin (Questran Light) 4 gm BID PO Last administered on 01/23/19 10:48; Admin Dose 4 GM; Start 01/20/19 at 21:00; Stop 02/10/19 at 20:59 Docusate Sodium/ Ferrous Fumarate (Arabella-Sequels) 1 tab PC LUNCH PO Last administered on 01/23/19 13:05; Admin Dose 1 TAB; Start 01/20/19 at 12:50; Stop 02/10/19 at 12:49 Polyethylene Glycol (Miralax) 17 gm DAILY PRN PO CONSTIPATION Last administered on 01/23/19 09:09; Admin Dose 17 GM; Start 01/20/19 at 14:00 Insulin Glargine (Lantus) 7 units DAILY@2000 SC Last administered on 01/22/19 21:06; Admin Dose 7 UNITS; Start 01/21/19 at 20:00 Methimazole (Tapazole) 40 mg BID PO Last administered on 01/23/19 09:48; Admin Dose 40 MG; Start 01/21/19 at 21:02; Stop 01/24/19 at 10:00 KIRK AREVALO MD Jan 23, 2019 17:05
[2019-01-23] MEDS: INSULIN GLARGINE [LANTus] (100 UNITS/ML) SYG SC SCH (21:05)
[2019-01-23 21:07] VITALS: BP 118/57; PULSE 98; RESP 20
[2019-01-23] MEDS: ACETAMINOPHEN 325 MG TAB PO PRN (21:48)
[2019-01-24] MEDS: DOCUSATE SODIUM 100 MG CAP PO SCH ×2 (00:45→09:00)
[2019-01-24 02:33] VITALS: BP 115/61; PULSE 95; RESP 18
[2019-01-24] MEDS: PROPRANOLOL 40 MG TAB PO SCH ×3 (06:32→13:04)
[2019-01-24] MEDS: INSULIN ASPART [NOVOLOG] 3 ML PEN SC SCH ×2 (07:50→12:40)
[2019-01-24] MEDS: CHOLESTYRAMINE (LIGHT) 4 GM PACKET PO SCH (08:13)
[2019-01-24] MEDS: ACETAMINOPHEN 325 MG TAB PO PRN (08:13)
[2019-01-24] MEDS: PANTOPRAZOLE (EC) 40 MG TAB PO SCH (08:14)
[2019-01-24] MEDS: metFORMIN 500 MG TAB PO SCH (08:14)
[2019-01-24] MEDS: METHIMAZOLE 10 MG TAB PO SCH (08:14)
[2019-01-24 08:23] VITALS: BP 101/55; PULSE 93; RESP 18
--- NOTE | 2019-01-24 08:27 | CONS ---
Assessment/Plan Assessment/Plan Hospital Course (Demo Recall) 58 yo with hyperthyroid and with SOB #Anemia -labs are most consistent with anemia of chronic inflammation given the low TIBC, high ferritin, high CRP and ESR -Hb electropheresis ordered to rule out thalassemia -SPEP negative -Flow cytometry pending -LDH ordered -vitamin b12 and folate ordered -normal haptoglobin makes hemolysis unlikely -if above w/u is negative, recommend bone marrow biopsy -continue po iron. iron saturation noted #Hyperthryroidism -continue methimazole -this may also be a contributing factor to his anemia #DM -continue current meds Consultation Date/Type/Reason Admit Date/Time Jan 16, 2019 at 15:29 Initial Consult Date 01/16/19 Type of Consult hematology Reason for Consultation anemia Requesting Provider: YOLI ZAMORANO Date/Time of Note DATE: 01/24/19 TIME: 08:23 24 HR Interval Summary Free Text/Dictation feels better. more alert Exam/Review of Systems Exam Vitals Vital Signs Date Temp Pulse Resp B/P (MAP) Pulse Ox O2 O2 Flow FiO2 Time Delivery Rate 01/24/19 98.5 95 18 115/61 98 Room Air 02:33 (79) Intake and Output 01/23/19 01/23/19 01/24/19 1515:00 23:00 07:00 IntakeIntake Total 200 ml 240 ml 300 ml BalanceBalance 200 ml 240 ml 300 ml Constitutional: alert, oriented Psych: no complaints Head: normocephalic Eyes: nl conjunctiva ENMT: nl external ears & nose Neck: supple Respiratory: clear to auscultation Cardiovascular: regular rate and rhythm Gastrointestinal: soft Musculoskeletal: nl extremities to inspection Extremities: normal pulses Results Result Diagram: 01/22/19 0632 01/22/19 0632 Results 24hrs Laboratory Tests Test 01/23/19 08:41 01/23/19 12:24 01/23/19 14:53 01/23/19 17:47 Bedside Glucose 93 89 97 Red Blood Count 3.45 L (Send Out) Hemoglobin (Send 8.4 L Out) Hematocrit (Send 25.4 L Out) Hemoglobinopathy MCV 73.6 L Hemoglobinopathy MCH 24.3 L Hemoglobinopathy RDW 16.6 H Test 01/23/19 20:59 01/24/19 08:20 Bedside Glucose 92 89 Medications Medication Current Medications Nitroglycerin (Nitroglycerin (Sl Tab) 0.4 Mg) 1 tab Q5M UP TO 3 DOSES PRN SL .CHEST PAIN; Start 01/16/19 at 14:30 Metformin HCl (Glucophage) 500 mg BID PO Last administered on 01/23/19at 21:01; Admin Dose 500 MG; Start 01/16/19 at 21:00 Ondansetron HCl (Zofran Tab) 4 mg DAILY PRN PO NAUSEA AND/OR VOMITING Last administered on 01/22/19at 09:59; Admin Dose 4 MG; Start 01/16/19 at 16:30 Pantoprazole (Protonix Tab) 40 mg AC BREAKFAST PO Last administered on 01/22/19at 09:24; Admin Dose 40 MG; Start 01/17/19 at 07:00 Miscellaneous Information 1 ea NOTE XX ; Start 01/16/19 at 17:00 Glucose (Glutose) 15 gm Q15M PRN PO DECREASED GLUCOSE; Start 01/16/19 at 17:00 Glucose (Glutose) 22.5 gm Q15M PRN PO DECREASED GLUCOSE; Start 01/16/19 at 17:00 Dextrose (D50w Syringe) 25 ml Q15M PRN IV DECREASED GLUCOSE; Start 01/16/19 at 17:00 Dextrose (D50w Syringe) 50 ml Q15M PRN IV DECREASED GLUCOSE; Start 01/16/19 at 17:00 Glucagon (Glucagen) 1 mg Q15M PRN IM DECREASED GLUCOSE; Start 01/16/19 at 17:00 Glucose (Glutose) 15 gm Q15M PRN BUCCAL DECREASED GLUCOSE; Start 01/16/19 at 17:00 IV Flush (NS 3 ml) 3 ml PER PROTOCOL IV ; Start 01/16/19 at 17:30 Heparin Sodium (Porcine) (Heparin (5000 Units/1ml)) 5,000 unit Q12 SC Last administered on 01/23/19at 21:06; Admin Dose 5,000 UNIT; Start 01/16/19 at 21:00 Insulin Aspart (Novolog Insulin Pen) NOVOLOG *MILD* ALGORITHM WITH MEALS BEDTIME SC Last administered on 01/19/19at 17:18; Admin Dose 1 UNIT; Start 01/17/19 at 11:50 Acetaminophen (Tylenol Tab) 650 mg Q6H PRN PO MILD PAIN(1-3)OR ELEVATED TEMP Last administered on 01/23/19 21:48; Admin Dose 650 MG; Start 01/19/19 at 00:30 Propranolol HCl (Inderal) 40 mg Q6 PO Last administered on 01/24/19 06:32; Admin Dose 40 MG; Start 01/19/19 at 12:00 Cholestyramine Resin (Questran Light) 4 gm BID PO Last administered on 01/23/19 21:03; Admin Dose 4 GM; Start 01/20/19 at 21:00; Stop 02/10/19 at 20:59 Docusate Sodium/ Ferrous Fumarate (Arabella-Sequels) 1 tab PC LUNCH PO Last administered on 01/23/19 13:05; Admin Dose 1 TAB; Start 01/20/19 at 12:50; Stop 02/10/19 at 12:49 Polyethylene Glycol (Miralax) 17 gm DAILY PRN PO CONSTIPATION Last administered on 01/23/19 09:09; Admin Dose 17 GM; Start 01/20/19 at 14:00 Insulin Glargine (Lantus) 7 units DAILY@2000 SC Last administered on 01/23/19 21:05; Admin Dose 7 UNITS; Start 01/21/19 at 20:00 Methimazole (Tapazole) 40 mg BID PO Last administered on 01/23/19 21:02; Admin Dose 40 MG; Start 01/21/19 at 21:02; Stop 01/24/19 at 10:00 Senna (Senokot) 1 tab BID PO ; Start 01/24/19 at 09:00 Docusate Sodium (Colace) 100 mg BID PO Last administered on 01/24/19at 00:45; Admin Dose 100 MG; Start 01/24/19 at 00:18 HOLDEN CROWE M.D. Jan 24, 2019 08:27
[2019-01-24] MEDS: HEPARIN 5,000 UNIT/1 ML VIAL SC SCH (08:37)
[2019-01-24] MEDS ORDERED: SENNA TAB PO SCH (09:00)
--- NOTE | 2019-01-24 12:28 | PDOCDIS ---
Discharge Instructions DIAGNOSIS Discharge Diagnosis Hyperthyroidism Anemia CONDITION [id number] Patient Condition: [id number] Stable FOLLOW UP/APPOINTMENTS Follow-up Plan You have an appointment for thyroid ablation on 01/29 at 10 AM. You should see street railway line installer Dr Alvarado in clinic. Call his office to make an appointment: You also need to make an appointment with medical specialist Dr Dela Cruz to discuss your anemia. Her office number is KIRK AREVALO MD Jan 24, 2019 12:28
[2019-01-24] MEDS: FERROUS FUMARATE (SR) TAB PO SCH (13:04)
[2019-01-24] MEDS ORDERED: BISACODYL 10 MG SUPP PR ONE (13:30)
--- NOTE | 2019-01-24 13:55 | DS ---
Date/Time of Note Date/Time of Note DATE: 01/24/19 TIME: 13:53 Discharge Summary Admission/Discharge Info Admit Date/Time Jan 16, 2019 at 15:29 Discharge Date/Time Discharge Diagnosis Hyperthyroidism Anemia Patient Condition: Stable Hx of Present Illness 58 yo male with h/o hyperthyroidism, DMII, anemia presnet tone SOB Patient recently admitted for hyperthyroidism. Discharged on propranolol and methimazole which he has been taking. Today presents complaing of dyspena on exertenion, worse over past few days. Feels palpitations as well. Reported these symptoms to his doctor today who referred him to the ER via ambulance. He was recently admitted for similar symptoms. Had fevers of unknown origin despite extensive workup. Seems this problem has resolved Hospital Course 58 yo male with history of hyperthyroidism (on methimazole and propranolol), DMII, anemia presents with MANDEL. Found to have continued hyperthyroidism and now with hyponatremia For his hyperthyroidism, he was seen by Dr Alvarado who recommended radioactive iodine ablation. He remained hosptialized while insurance authorized this for 01/29 (post discharge). He was contined on methimazole and propranolol as well as cholestyramine. He was found to be anemic. Iron stores suggested chornic inflammation. SPEP was without evidence of monoclonal gammopathy. Flow cytology is pending and he will see Dr Dela Cruz/Fletcher in clinic for review as well as consideration of bone marrow biopsy. Home Meds Reported Medications Simvastatin* (Zocor*) 20 Mg Tablet, 20 MG PO QHS, #30 TAB 01/16/19 Methimazole* (Methimazole*) 10 Mg Tablet, 30 MG PO BID, TAB 01/16/19 Metformin* (Glucophage*) 500 Mg Tab, 500 MG PO BID, #90 TAB 01/16/19 Lisinopril* (Lisinopril*) 2.5 Mg Tablet, 2.5 MG PO DAILY, #30 TAB 01/16/19 Propranolol Hcl* (Propranolol Hcl*) 40 Mg Tablet, 40 MG PO TID, TAB 01/16/19 Discontinued Reported Medications Ondansetron Hcl* (Zofran*) 4 Mg Tablet, 4 MG PO DAILY PRN for NAUSEA AND OR VOMITING, TAB 01/16/19 Docusate Sodium* (Colace*) 100 Mg Capsule, 100 MG PO BID PRN for CONSTIPATION, #60 CAP 01/16/19 Pantoprazole* (Pantoprazole*) 40 Mg Tablet., 40 MG PO AC BREAKFAST, TAB 01/16/19 Follow-up Plan You have an appointment for thyroid ablation on 01/29 at 10 AM. You should see a class lineman Dr Alvarado in clinic. Call his office to make an appointment: You also need to make an appointment with furnace loader Dr Dela Cruz to discuss your anemia. Her office number is Primary Care Provider Not On Staff Doctor Pending Labs Laboratory Tests Test 01/23/19 14:53 01/23/19 17:47 01/23/19 20:59 01/24/19 08:20 Red Blood Count 3.45 Million/uL (Send Out) Hemoglobin 8.4 (Send Out) g/dL (13.2-17.1 ) Hematocrit 25.4 (Send Out) % (38.5-50.0) Hemoglobinopath 73.6 y MCV fL (80.0-100.0) Hemoglobinopath 24.3 y MCH pg (27.0-33.0) Hemoglobinopath 16.6 y RDW % (11.0-15.0) Bedside 97 92 89 Glucose mg/dL (70-220) mg/dL (70-220) mg/dL (70-220) Test 01/24/19 09:55 01/24/19 12:36 Vitamin B12 904 Level pg/ml (239-931) Folate 4.5 ng/ml (2.8-20.0 ) Bedside 80 Glucose mg/dL (70-220) KIRK AREVALO MD Jan 24, 2019 13:55
[2019-01-24] MEDS ORDERED: DOCUSATE SODIUM 100 MG CAP PO SCH (23:50)
== END 2019-01-24 16:50 | disposition home or self-care (01) | DRG 644 ==
LOC: E/R 12:09 → TEL 15:29 → MS1 01-22 23:52
PROVIDERS: ADMIT Internal Medicine; ATTEND Internal Medicine
DX: E05.00 Thyrotoxicosis with diffuse goiter without thyrotoxic crisis or storm (principal); E87.1 Hypo-osmolality and hyponatremia; E11.8 Type 2 diabetes mellitus with unspecified complications; E03.9 Hypothyroidism, unspecified; E78.5 Hyperlipidemia, unspecified; I10 Essential (primary) hypertension; D63.8 Anemia in other chronic diseases classified elsewhere; D50.9 Iron deficiency anemia, unspecified
CPT/HCPCS: 36415; 71045; 80048; 80053; 81003; 82550; 82553; 82607; 82728; 82746; 82962; 83010; 83020; 83036; 83540; 83735; 83935; 84100; 84155; 84165; 84300; 84439; 84443; 84481; 84484; 85025; 85651; 86880; 86885; 87040; 87081; 93005; J1644; J1815; J3475; J7030

== ENCOUNTER 2019-02-06 11:41 | Inpatient (IN) | payer OTHER ==
[2019-02-06] VITALS (23 sets, daily range): BP systolic 81–138; BP diastolic 40–92; PULSE 70–80; RESP 8–23; Ht 185.4 cm; Wt 81.4 kg
[~2019-02-06] VITALS: Ht 185.4 cm; Wt 81.4 kg
[~2019-02-06 11:41] MED LIST changes: -AMOX500C2 PO; -CLAR500T PO; -DOCU-159 PO; -GLIP5TAB13 PO; -LANT3I SC; +LISI2.5T59 PO; -PANT40TA4 PO; +SIMV20TA PO
[2019-02-06] MEDS ORDERED: SODIUM CHLORIDE 0.9% 1L BAG IV* STA (12:11)
[2019-02-06] MEDS ORDERED: CEFTRIAXONE 1 GM/50 ML (PMX) 50 ML IVPB STA (12:11)
[2019-02-06] MEDS ORDERED: PANT40TA4 PO (13:11)
[2019-02-06] MEDS ORDERED: METH10TA5 PO (13:26)
[2019-02-06] MEDS ORDERED: SOD CHLORIDE 0.9% 1,000 ML IV STA (14:12)
[2019-02-06] MEDS ORDERED: HYDROCORTISONE 100 MG INJ IV ONE (14:30)
--- NOTE | 2019-02-06 14:35 | ERD ---
ER Documentation Chief Complaint Chief Complaint generalized weakness since 0600, poor oral intake, unable to walk HPI Patient is a 59-year-old male with diabetes and thyroid disease who presents with a "thyroid problem". Please note the history and physical exam is limited secondary to the patient's confusion. The patient was sent home from the hospital 2 weeks ago per the son. There was plan to have a thyroid scan done but supposedly the thyroid was "still too big". The patient is not eating or drinking well. He is not talking and usually does talk. His sugar was 128 this morning. Upon review of old medical records this is the patient's eighth visit to the ER since 2017. ROS All systems reviewed and are negative except as per history of present illness. Medications Home Meds Reported Medications Methimazole* (Methimazole*) 10 Mg Tablet, 30 MG PO BID, TAB 02/06/19 Pantoprazole* (Pantoprazole*) 40 Mg Tablet.dr, 40 MG PO AC BREAKFAST, TAB 02/06/19 Simvastatin* (Zocor*) 20 Mg Tablet, 20 MG PO QHS, #30 TAB 01/16/19 Metformin* (Glucophage*) 500 Mg Tab, 500 MG PO BID, #90 TAB 01/16/19 Lisinopril* (Lisinopril*) 2.5 Mg Tablet, 2.5 MG PO DAILY, #30 TAB 01/16/19 Propranolol Hcl* (Propranolol Hcl*) 40 Mg Tablet, 80 MG PO TID, TAB 01/16/19 Discontinued Reported Medications Methimazole* (Methimazole*) 10 Mg Tablet, 30 MG PO BID, TAB 01/16/19 Allergies Allergies: Coded Allergies: No Known Allergy (Unverified , 02/06/19) PMhx/Soc History of Surgery: No Anesthesia Reaction: No Hx Neurological Disorder: No Hx Respiratory Disorders: No Hx Cardiac Disorders: No Hx Psychiatric Problems: No Hx Miscellaneous Medical Probl: Yes (Graves disease,DM, Hypothyroidism) Hx Alcohol Use: No Hx Substance Use: No Hx Tobacco Use: No Smoking Status: Never smoker FmHx Family History: diabetes Physical Exam Vitals Vital Signs Date Temp Pulse Resp B/P (MAP) Pulse Ox O2 O2 Flow FiO2 Time Delivery Rate 02/06/19 78 18 91/60 (70) 100 Room Air 14:19 02/06/19 76 18 68/51 (57) 100 Room Air 13:31 02/06/19 Nasal 2 12:41 Cannula 02/06/19 Nasal 2.0 12:41 Cannula 02/06/19 97.1 72 20 64/46 (52) 100 11:56 Physical Exam Const: No acute distress Head: Atraumatic Eyes: Normal Conjunctiva ENT: Normal External Ears, Nose and Mouth. Neck: Full range of motion. No meningismus. Resp: Clear to auscultation bilaterally Cardio: Regular rate and rhythm, no murmurs Abd: Soft, non tender, non distended. Normal bowel sounds Skin: No petechiae or rashes Back: No midline or flank tenderness Ext: No cyanosis, or edema Neur: Awake but confused Result Diagram: 02/06/19 1240 02/06/19 1240 Results 24 hrs Laboratory Tests Test 02/06/19 12:40 02/06/19 12:41 White Blood Count 7.3 10^3/ul Red Blood Count 4.23 10^6/ul Hemoglobin 10.1 g/dl Hematocrit 32.5 % Mean Corpuscular Volume 76.8 fl Mean Corpuscular Hemoglobin 23.9 pg Mean Corpuscular Hemoglobin Concent 31.1 g/dl Red Cell Distribution Width 18.8 % Platelet Count 168 10^3/UL Mean Platelet Volume 9.0 fl Immature Granulocytes % 1.400 % Neutrophils % 66.4 % Lymphocytes % 15.3 % Monocytes % 16.0 % Eosinophils % 0.6 % Basophils % 0.3 % Nucleated Red Blood Cells % 0.0 /100WBC Immature Granulocytes # 0.100 10^3/ul Neutrophils # 4.8 10^3/ul Lymphocytes # 1.1 10^3/ul Monocytes # 1.2 10^3/ul Eosinophils # 0.0 10^3/ul Basophils # 0.0 10^3/ul Nucleated Red Blood Cells # 0.0 10^3/ul Prothrombin Time 13.7 Sec Prothrombin Time Ratio 1.1 INR International Normalized Ratio 1.04 Activated Partial Thromboplast Time 31.7 Sec Sodium Level 128 mmol/L Potassium Level 5.2 mmol/L Chloride Level 92 mmol/L Carbon Dioxide Level 27 mmol/L Anion Gap 9 Blood Urea Nitrogen 23 mg/dl Creatinine 0.88 mg/dl Est Glomerular Filtrat Rate mL/min > 60 mL/min Glucose Level 185 mg/dl Calcium Level 9.3 mg/dl Total Bilirubin 0.3 mg/dl Direct Bilirubin 0.00 mg/dl Indirect Bilirubin 0.3 mg/dl Aspartate Amino Transf (AST/SGOT) 95 IU/L Alanine Aminotransferase (ALT/SGPT) 24 IU/L Alkaline Phosphatase 174 IU/L Troponin I < 0.012 ng/ml Total Protein 6.4 g/dl Albumin 2.4 g/dl Globulin 4.00 g/dl Albumin/Globulin Ratio 0.60 Free Thyroxine Index 5.20 ug/ml Thyroxine (T4) 8.0 ug/dl Triiodothyronine (T3) Uptake > 65.0 % Lactic Acid Level 4.8 mmol/L Current Medications Medications Dose Sig/Ishmael Start Time Status Last (Trade) Ordered Route PRN Stop Time Admin Dose Reason Admin Sodium 2,050 ml BOLUS OVER 2 02/06/19 DC 02/06/19 Chloride HOURS STAT 12:11 02/06/19 12:37 (NS) IV* 12:12 Ceftriaxone 50 ml @ ONCE STAT 02/06/19 DC 02/06/19 Sodium 100 mls/hr IVPB 12:11 02/06/19 12:37 12:40 Sodium 1,000 ml @ Q1H STAT 02/06/19 02/06/19 Chloride 1,000 mls/hr IV 14:12 02/06/19 14:18 15:11 100 mg ONCE ONCE 02/06/19 02/06/19 Hydrocortison IV 14:30 02/06/19 14:18 e 14:31 (Solu-Cort) Procedures/MDM Chest x-ray negative per radiology. EKG read by me: Rate/Rhythm: Regular rate and rhythm at a normal rate Intervals: Normal Impression: No evidence of ischemia or arrhythmia Sepsis Documentation: Patient's infectious symptoms have not stabilized and the patient is at risk of rapid decompensation. The patient will be admitted for careful hydration, antibiotic therapy, and infectious source control. SEVERE SEPSIS CRITERIA: Infectious source: Unclear source, urinalysis pending End organ damage indicated by: Lactate greater than 2 SEPSIS MANAGEMENT Time of recognition of sepsis: 12:41 PM. Time of recognition of severe sepsis: 12:41 PM. Time of recognition of septic shock: 12:41 PM. 3 HOUR BUNDLE Blood cultures x 2 before broad-spectrum antibiotics: Yes 30 ml/kg NS bolus completed Initial lactate 4.8 Repeat lactate pending SEPTIC SHOCK ASSESSMENT: Yes lactic acid > 4.0 No persistent hypotension (SBP < 90 or 40 mmHg drop, MAP < 65) despite 30 mL/kg IV fluid bolus VOLUME REASSESSMENT FOR SEPTIC SHOCK: Reevaluation Time: 1419 Temp 97.1, BP 91/60, HR 78, RR 18, Pox 100% Heart regular rate & rhythm Lungs no crackles Skin warm & dry Cap Refill less than 2 seconds Peripheral pulses radially present PERSISTENT HYPOTENSION TREATMENT: Comfort care no Central line not required at this time as the patient's blood pressure is greater than 90 systolic, will continue to assess Vasopressor started not required I considered further perfusion assessment with CVP measurement, SCVO2, bedside ultrasound volume assessment, passive leg raise, trial of further fluid bolus. And proceeded with 30 ml/kg fluid bolus of NSS, broad spectrum antibiotics, and admission. I spoke with the panel team for admission to the intensive care unit given his hyperthyroid disease combined with septic shock. The patient is likely dehydrated as well which is why gave a 30 mL/kg fluid bolus and then another 1 L normal saline bolus on top of that. The patient was also given hydrocortisone 100 mg IV in case adrenal insufficiency is contributing to his hypotension. The patient also recently started lisinopril and atenolol which could be contributing to the hypotension. CRITICAL CARE Critical care time 45 minutes Emergent fluid management while maintaining close respiratory support. Provision of immediate and broad-spectrum antibiotic therapy. Simultaneous assessment for possible sources in order to direct targeted therapy. Consideration for invasive and chemical support to prevent cardiopulmonary collapse. Critical care time is independent of procedures performed. Departure Diagnosis: Primary Impression: Septic shock Additional Impressions: Acute weakness Hyperthyroidism Condition: Serious LAURYN PERES MD Feb 06, 2019 14:35
[2019-02-06] MEDS ORDERED: NACL 0.9% 3 ML SYG IV SCH (15:00)
[2019-02-06] MEDS: SOD CHLORIDE 0.9% 1,000 ML IV SCH (15:48)
[2019-02-06] MEDS ORDERED: DEXTROSE 50% 50 ML SYRINGE IV PRN ×2 (16:00)
[2019-02-06] MEDS ORDERED: GLUCOSE GEL 15 GRAM TUBE PO PRN ×2 (16:00)
[2019-02-06] MEDS ORDERED: GLUCAGON 1 MG INJ IM PRN (16:00)
[2019-02-06] MEDS ORDERED: GLUCOSE GEL 15 GRAM TUBE BUCCAL PRN (16:00)
--- NOTE | 2019-02-06 16:01 | HP ---
Date/Time of Note Date/Time of Note DATE: 02/06/19 TIME: 15:42 Assessment/Plan VTE Prophylaxis SCD applied (from Nsg): Yes Pharmacological prophylaxis: NA/contraindicated Pharm contraindication: low risk/ambulating Lines/Catheters IV Catheter Type (from Nrsg): Saline Lock Assessment/Plan Assessment/Plan 59 yo man history of HTN, hypothyroid presents with fatigue, hypotension, hyponatremia #Fatigue #Hypotension #Hyponatremia #Hyperkalemia - Concerning for new adrenal insufficiency - Given stress dose steroids in the ED with good blood pressure response, will continue. - IV fluid rehydration - He does report burning dysuria. May have UTI. Will check urine culture, start empiric zosyn. - Consult Dr. Alvarado #Hyperthyroid - Free T4 is lower than last admission - Patient was restarted on methimazole prior to this admission, will continue. #Dyslipidemia - Continue simvastatin. #Diabetes - Insulin sliding scale - Will check HgbA1C Contact: Son ([place] speaking), Lucio Whitaker [phone] DVT: SCDs GI: PPI Result Diagram: 02/06/19 1240 02/06/19 1240 HPI/ROS Admit Date/Time Admit Date/Time 06 February 2019 Hx of Present Illness Mr. Whitaker is a Papo-speaking man with history of hyperthyroidism who presents with hypotension and weakness. Patient very fatigued and speaks only Papo; history taken per son Lucio at bedside. He was diagnosed with hyperthyroidism in November 2018 and has been in and out of the hospital since. Most recently he was hospitalized 01/16-01/24 on methimazole and was discharged with plan to get radioiodine ablation. He went to his clinic visit and has a thyroid scan and was told the thyroid was still too enlarged and the ablation would be pushed to possibly 02/24. Over the past two week he reports progressively worsening fatigue, weakness, anorexia. Today he was too weak to get out of bed, so his son brought him to the hospital. Of note, the patient does also report shaking chills. Last time he had this his son reports his skin was freezing cold. Oral temp was 97. Patient also reports burning dysuria. Also chronic cough with white sputum since November and occasional episodes of heart palpitations. On admission afebrile, P 70s, BP 64/46. He was hyponatremic to 128, hyperkalemic to 5.2. ROS 12 point review of systems negative except per HPI PMH/Family/Social Past Medical History HTN Hyperthyroidism Medications Current Medications Sodium Chloride 1,000 ml @ 80 mls/hr [id number] IV ; Start 02/06/19 at 14:55; Status UNV IV Flush (NS 3 ml) 3 ml PER PROTOCOL IV ; Start 02/06/19 at 15:00; Status UNV Ondansetron HCl (Zofran Inj) 4 mg Q6H PRN IV NAUSEA/VOMITING; Start 02/06/19 at 15:00; Status UNV Acetaminophen (Tylenol Tab) 650 mg Q6H PRN PO .PAIN 1-3 OR TEMP; Start 02/06/19 at 15:00; Status UNV Pantoprazole (Protonix Tab) 40 mg DAILY@06 PO ; Start 02/07/19 at 06:00; Status UNV Methimazole (Tapazole) 30 mg BID PO ; Start 02/06/19 at 21:00; Status UNV Miscellaneous Information 20 mg QHS PO ; Start 02/06/19 at 21:00; Status UNV Diagnostic Test (Pha) (Accu-Chek) 1 ea 02 XX ; Start 02/07/19 at 02:00; Status UNV Miscellaneous Information (* Miscellaneous Pharmacy Order) HYPOGLYCEMIA PROTOCOL w... ONCE ONCE XX ; Start 02/06/19 at 16:00; Stop 02/06/19 at 16:01; Status UNV Insulin Aspart (Novolog Insulin Pen) NOVOLOG *MILD* ALGORITHM WITH MEALS BEDTIME SC ; Start 02/06/19 at 18:00; Status UNV Piperacillin Sod/ Tazobactam Sod 100 ml @ 200 mls/hr Q6 IVPB ; Start 02/06/19 at 18:00; Status UNV Coded Allergies: No Known Allergy (Unverified , 02/06/19) Past Surgical History Past Surgical Hx: no surgical history Family History Significant Family History: no pertinent family hx Social History Alcohol Use: sober (x 10 years) Smoking Status: Never smoker Drug Use: none Exam/Review of Systems Vital Signs Vitals Vital Signs Date Temp Pulse Resp B/P (MAP) Pulse Ox O2 O2 Flow FiO2 Time Delivery Rate 4/4/19 78 18 91/60 (70) 100 Room Air 14:19 02/06/19 2 12:41 02/06/19 97.1 11:56 Exam Exam Gen: Frail appearing man appearing much older than stated age lying in bed in no acute distress. Eyes: Miotic pupils bilaterally. No icterus. HEENT: Dry mucous membranes, clear oropharynx Neck: No lymphadenopathy or masses. Card: Regular rate and rhythm, no murmurs Pulm: Clear to auscultation bilaterally Abd: Soft, nontender. No hepatosplenomegaly. Normoactive bowel sounds. Ext: No cyanosis/clubbing/edema Skin: cool, dry. PURVI QUIGLEY MD Feb 06, 2019 15:53
[2019-02-06] MEDS ORDERED: NORepinephrine 8MG/250 ML (PMX 250 ML IV STA (16:46)
[2019-02-06] MEDS: INSULIN ASPART [NOVOLOG] 3 ML PEN SC SCH ×2 (17:51→22:38)
[2019-02-06] MEDS: PIPER-TAZO 3.375 GM IV (PMX) 100 ML IVPB SCH (18:43)
--- NOTE | 2019-02-06 18:51 | CONS ---
Assessment/Plan Assessment/Plan Problems: (1) Graves' disease with exophthalmos Status: Chronic Comment: On the off chance this is an atypical reaction to the methimazole which I doubt on this switch over to PTU temporarily. This presentation is not consistent with storm although the protocol was enacted by the emergency room would actually be what we would use in thyroid storm. I am rechecking his free T4 and free T3 to see where it is relative to his last visit with us (2) Hyperthyroidism Status: Acute Comment: As above. We may be forced to do a surgical thyroidectomy to treat this cannot get him to radioactive iodine (3) Diabetes mellitus type 2 in nonobese Status: Chronic Comment: Adequate control (4) Anemia Status: Chronic Comment: Replace with iron Qualifiers: Qualified Codes: D50.9 - Iron deficiency anemia, unspecified (5) Helicobacter pylori stool test positive Status: Chronic Comment: Formalized anti-H. pylori protocol Consultation Date/Type/Reason Admit Date/Time 06 February 2019 Date of Consultation: Feb 06, 2019 Type of Consult Endocrine Reason for Consultation Chronic thyrotoxicosis of at least 10 years duration; iron deficiency anemia; H. pylori stool antibody positive; failure to thrive Requesting Provider: RODRIGUEZ DOTY Date/Time of Note DATE: 02/06/19 TIME: 18:46 Hx of Present Illness 1 of several [facility] admissions for this 59-year-old [place] gentleman. He had presented in November and my HNP at that time has been re-visited with history taken from the patient's son who speaks Ukrainian well. He confirms that the data from this is accurate. Yojanaming 58-year-old [place] gentleman. He reports roughly 10 years ago while in the [facility] he had presented with symptoms of thyrotoxicosis. He was placed on methimazole at 10 mg twice daily and had done well. He was maintained on treatment for 9 years but ultimately had his medications discontinued [address] Purdy. Over the last 1 year he has been off of medication treatment. He has developed symptoms consistent with thyrotoxicosis including changes in hair heat intolerance excessive sweating decreased endur ance palpitations with minimal exertion and unplanned weight loss. Ultimately presented to the emergency room here and was admitted. He has a type II diabetic. Attempts were made to get him treated with radioactive iodine but his thyroid uptake and scan was done a little close to when he had antithyroid drug therapy and as such as uptakes were 6% 6 hours and 15% 24 hours and nuclear medicine opt ed not to treat him. He has gone back onto his methimazole. Please note however that his son is giving it to him since that time and he actually looks a little bit less thyrotoxic. The question is why is he not doing well. In terms of his iron deficiency anemia he had had a colonoscopy which was a poor prep and showed hemorrhoids only please see the computer record Constitutional: chills (He gets nocturnal shaking chills but the family has been measuring his temperatures as we had requested he is not having fevers) Eyes: no complaints ENT: no complaints Respiratory: no complaints Cardiovascular: palpitations Gastrointestinal: other (Anorexia) Genitourinary: no complaints Musculoskeletal: no complaints Skin: no complaints Neurologic: no complaints Past Medical History Medical History: diabetes, hyperthyroid Home Meds Reported Medications Methimazole* (Methimazole*) 10 Mg Tablet, 30 MG PO BID, TAB 02/06/19 Pantoprazole* (Pantoprazole*) 40 Mg Tablet.dr, 40 MG PO AC BREAKFAST, TAB 02/06/19 Simvastatin* (Zocor*) 20 Mg Tablet, 20 MG PO QHS, #30 TAB 01/16/19 Metformin* (Glucophage*) 500 Mg Tab, 500 MG PO BID, #90 TAB 01/16/19 Lisinopril* (Lisinopril*) 2.5 Mg Tablet, 2.5 MG PO DAILY, #30 TAB 01/16/19 Propranolol Hcl* (Propranolol Hcl*) 40 Mg Tablet, 80 MG PO TID, TAB 01/16/19 Discontinued Reported Medications Methimazole* (Methimazole*) 10 Mg Tablet, 30 MG PO BID, TAB 01/16/19 Medications Current Medications Sodium Chloride 1,000 ml @ 80 mls/hr [id number] IV Last administered on 02/06/19at 15:48; Admin Dose 80 MLS/HR; Start 02/06/19 at 14:55 IV Flush (NS 3 ml) 3 ml PER PROTOCOL IV ; Start 02/06/19 at 15:00 Ondansetron HCl (Zofran Inj) 4 mg Q6H PRN IV NAUSEA/VOMITING; Start 02/06/19 at 15:00 Acetaminophen (Tylenol Tab) 650 mg Q6H PRN PO .PAIN 1-3 OR TEMP; Start 02/06/19 at 15:00 Pantoprazole (Protonix Tab) 40 mg DAILY@06 PO ; Start 02/07/19 at 06:00 Methimazole (Tapazole) 30 mg BID PO ; Start 02/06/19 at 21:00; Status Future Hold Atorvastatin Calcium (Lipitor) 10 mg DAILY@21 PO ; Start 02/06/19 at 21:00 Diagnostic Test (Pha) (Accu-Chek) 1 ea 02 XX ; Start 02/07/19 at 02:00 Insulin Aspart (Novolog Insulin Pen) NOVOLOG *MILD* ALGORITHM WITH MEALS BEDTIME SC ; Start 02/06/19 at 17:51 Piperacillin Sod/ Tazobactam Sod 100 ml @ 200 mls/hr Q6 IVPB Last administered on 02/06/19at 18:43; Admin Dose 200 MLS/HR; Start 02/06/19 at 18:00 Hydrocortisone (Solu-Cortef) 100 mg Q8 IV ; Start 02/06/19 at 22:00 Miscellaneous Information 1 ea NOTE XX ; Start 02/06/19 at 16:00 Glucose (Glutose) 15 gm Q15M PRN PO DECREASED GLUCOSE; Start 02/06/19 at 16:00 Glucose (Glutose) 22.5 gm Q15M PRN PO DECREASED GLUCOSE; Start 02/06/19 at 16:00 Dextrose (D50w Syringe) 25 ml Q15M PRN IV DECREASED GLUCOSE; Start 02/06/19 at 16:00 Dextrose (D50w Syringe) 50 ml Q15M PRN IV DECREASED GLUCOSE; Start 02/06/19 at 16:00 Glucagon (Glucagen) 1 mg Q15M PRN IM DECREASED GLUCOSE; Start 02/06/19 at 16:00 Glucose (Glutose) 15 gm Q15M PRN BUCCAL DECREASED GLUCOSE; Start 02/06/19 at 16:00 Norepinephrine 250 ml @ 7.5 mls/hr ONCE STAT IV Last administered on 02/06/19at 17:22; Admin Dose 7.5 MLS/HR; Start 02/06/19 at 16:46; Stop 02/08/19 at 02:05 Propylthiouracil (Ptu) 200 mg QID PO ; Start 02/06/19 at 21:00; Status UNV Allergies: Coded Allergies: No Known Allergy (Unverified , 02/06/19) Past Surgical History Past Surgical Hx: no surgical history Family History Significant Family History: no pertinent family hx Social History Alcohol Use: sober (x 10 years) Smoking Status: Never smoker Drug Use: none Exam/Review of Systems Exam Vitals Vital Signs Date Temp Pulse Resp B/P (MAP) Pulse Ox O2 O2 Flow FiO2 Time Delivery Rate 02/06/19 70 17:50 02/06/19 97.8 18 149/88 100 Nasal 2.0 17:33 (108) Cannula Constitutional: alert, oriented Eyes: nl conjunctiva, EOMI, nl lids, nl sclera, PERRL ENMT: nl external ears & nose, nl lips & teeth, nl nasal mucosa & septum, mucosa pink and moist Neck: supple, non-tender Respiratory: clear to auscultation, normal air movement Cardiovascular: regular rate and rhythm, nl pulses Gastrointestinal: soft, nl liver, spleen, non-tender Results Result Diagram: 02/06/19 1240 02/06/19 1240 Results 24hrs Laboratory Tests Test 02/06/19 12:40 02/06/19 12:41 02/06/19 14:37 White Blood Count 7.3 Red Blood Count 4.23 #L Hemoglobin 10.1 #L Hematocrit 32.5 L Mean Corpuscular Volume 76.8 L Mean Corpuscular Hemoglobin 23.9 L Mean Corpuscular Hemoglobin Concent 31.1 L Red Cell Distribution Width 18.8 H Platelet Count 168 Mean Platelet Volume 9.0 Immature Granulocytes % 1.400 H Neutrophils % 66.4 Lymphocytes % 15.3 Monocytes % 16.0 H Eosinophils % 0.6 Basophils % 0.3 Nucleated Red Blood Cells % 0.0 Immature Granulocytes # 0.100 H Neutrophils # 4.8 Lymphocytes # 1.1 Monocytes # 1.2 H Eosinophils # 0.0 Basophils # 0.0 Nucleated Red Blood Cells # 0.0 Prothrombin Time 13.7 Prothrombin Time Ratio 1.1 INR International Normalized Ratio 1.04 Activated Partial Thromboplast Time 31.7 Sodium Level 128 L Potassium Level 5.2 H Chloride Level 92 L Carbon Dioxide Level 27 Anion Gap 9 Blood Urea Nitrogen 23 H Creatinine 0.88 Est Glomerular Filtrat Rate mL/min > 60 Glucose Level 185 Calcium Level 9.3 Total Bilirubin 0.3 Direct Bilirubin 0.00 Indirect Bilirubin 0.3 Aspartate Amino Transf (AST/SGOT) 95 H Alanine Aminotransferase (ALT/SGPT) 24 Alkaline Phosphatase 174 H Troponin I < 0.012 Total Protein 6.4 Albumin 2.4 L Globulin 4.00 H Albumin/Globulin Ratio 0.60 Free Thyroxine Index 5.20 H Thyroxine (T4) 8.0 Triiodothyronine (T3) Uptake > 65.0 H Lactic Acid Level 4.8 *H 2.9 *H Medications Medication Current Medications Sodium Chloride 1,000 ml @ 80 mls/hr [id number] IV Last administered on 02/06/19at 15:48; Admin Dose 80 MLS/HR; Start 02/06/19 at 14:55 IV Flush (NS 3 ml) 3 ml PER PROTOCOL IV ; Start 02/06/19 at 15:00 Ondansetron HCl (Zofran Inj) 4 mg Q6H PRN IV NAUSEA/VOMITING; Start 02/06/19 at 15:00 Acetaminophen (Tylenol Tab) 650 mg Q6H PRN PO .PAIN 1-3 OR TEMP; Start 02/06/19 at 15:00 Pantoprazole (Protonix Tab) 40 mg DAILY@06 PO ; Start 02/07/19 at 06:00 Methimazole (Tapazole) 30 mg BID PO ; Start 02/06/19 at 21:00; Status Future Hold Atorvastatin Calcium (Lipitor) 10 mg DAILY@21 PO ; Start 02/06/19 at 21:00 Diagnostic Test (Pha) (Accu-Chek) 1 ea 02 XX ; Start 02/07/19 at 02:00 Insulin Aspart (Novolog Insulin Pen) NOVOLOG *MILD* ALGORITHM WITH MEALS BEDTIME SC ; Start 02/06/19 at 17:51 Piperacillin Sod/ Tazobactam Sod 100 ml @ 200 mls/hr Q6 IVPB Last administered on 02/06/19at 18:43; Admin Dose 200 MLS/HR; Start 02/06/19 at 18:00 Hydrocortisone (Solu-Cortef) 100 mg Q8 IV ; Start 02/06/19 at 22:00 Miscellaneous Information 1 ea NOTE XX ; Start 02/06/19 at 16:00 Glucose (Glutose) 15 gm Q15M PRN PO DECREASED GLUCOSE; Start 02/06/19 at 16:00 Glucose (Glutose) 22.5 gm Q15M PRN PO DECREASED GLUCOSE; Start 02/06/19 at 16:00 Dextrose (D50w Syringe) 25 ml Q15M PRN IV DECREASED GLUCOSE; Start 02/06/19 at 16:00 Dextrose (D50w Syringe) 50 ml Q15M PRN IV DECREASED GLUCOSE; Start 02/06/19 at 16:00 Glucagon (Glucagen) 1 mg Q15M PRN IM DECREASED GLUCOSE; Start 02/06/19 at 16:00 Glucose (Glutose) 15 gm Q15M PRN BUCCAL DECREASED GLUCOSE; Start 02/06/19 at 16:00 Norepinephrine 250 ml @ 7.5 mls/hr ONCE STAT IV Last administered on 02/06/19at 17:22; Admin Dose 7.5 MLS/HR; Start 02/06/19 at 16:46; Stop 02/08/19 at 02:05 Propylthiouracil (Ptu) 200 mg QID PO ; Start 02/06/19 at 21:00; Status ANA MAYA MD Feb 06, 2019 18:51
[2019-02-06] MEDS ORDERED: METHIMAZOLE 5 MG TAB PO SCH (21:00)
[2019-02-06] MEDS ORDERED: SOD FERRIC GLUC COMPLX 125 MG in SOD CHLORIDE 0.9% 100 ML IVPB ONE (21:00)
[2019-02-06] MEDS: BISMUTH SUBSALICYLATE 120 ML BTL PO SCH (21:00)
[2019-02-06] MEDS: AMOXICILLIN 500 MG CAP PO SCH (21:21)
[2019-02-06] MEDS: ATORVASTATIN 10 MG TAB PO SCH (21:21)
[2019-02-06] MEDS: PROPYLTHIOURACIL 50 MG TAB PO SCH (21:21)
[2019-02-06] MEDS: CLARITHROMYCIN 500 MG TAB PO SCH (21:21)
[2019-02-06] MEDS: HYDROCORTISONE 100 MG INJ IV SCH (22:41)
[2019-02-07] VITALS (93 sets, daily range): BP systolic 72–141; BP diastolic 52–101; PULSE 73–98; RESP 0–22
[2019-02-07] MEDS: PIPER-TAZO 3.375 GM IV (PMX) 100 ML IVPB SCH ×5 (00:16→23:27)
[2019-02-07] MEDS: SOD CHLORIDE 0.9% 1,000 ML IV SCH ×2 (00:22→13:44)
[2019-02-07] MEDS: ACCU-CHEK XX SCH (02:00)
[2019-02-07] MEDS ORDERED: INSULIN ASPART [NOVOLOG] 3 ML PEN SC ONE ×2 (03:00→21:30)
[2019-02-07] MEDS ORDERED: PANTOPRAZOLE (EC) 40 MG TAB PO SCH (06:00)
[2019-02-07] MEDS ORDERED: traZODone 50 MG TAB PO ONE (06:00)
[2019-02-07] MEDS: PANTOPRAZOLE (EC) 40 MG TAB PO SCH ×2 (06:03→17:10)
[2019-02-07] MEDS: HYDROCORTISONE 100 MG INJ IV SCH ×3 (06:03→21:47)
[2019-02-07] MEDS: BISMUTH SUBSALICYLATE 120 ML BTL PO SCH ×4 (07:35→21:00)
[2019-02-07] MEDS: INSULIN ASPART [NOVOLOG] 3 ML PEN SC SCH ×7 (08:23→21:00)
[2019-02-07] MEDS: CLARITHROMYCIN 500 MG TAB PO SCH ×2 (08:58→21:47)
[2019-02-07] MEDS: PROPYLTHIOURACIL 50 MG TAB PO SCH ×4 (08:58→21:00)
[2019-02-07] MEDS: AMOXICILLIN 500 MG CAP PO SCH ×2 (08:58→21:47)
[2019-02-07] MEDS ORDERED: MAGNESIUM SULFATE 2 GM/50 ML 50 ML IVPB ONE (10:30)
[2019-02-07] MEDS ORDERED: NORepinephrine 8MG/250 ML (PMX 250 ML IV SCH (10:30)
[2019-02-07] MEDS ORDERED: NA POLYST SULFON 15 GM/60 ML BTL PO ONE (10:30)
--- NOTE | 2019-02-07 10:32 | PN ---
Date/Time of Note Date/Time of Note DATE: 02/07/19 TIME: 10:23 Assessment/Plan VTE Prophylaxis Risk score (from Nsg)>0 risk: 9 SCD applied (from Nsg): Yes Pharmacological prophylaxis: NA/contraindicated Pharm contraindication: low risk/ambulating Lines/Catheters IV Catheter Type (from Nrsg): Central Line Central line still needed: Yes Urinary Cath still in place: No Assessment/Plan Assessment/Plan 59 yo man history of HTN, hypothyroid presents with fatigue, hypotension, hyponatremia #Fatigue #Hypotension - IV fluid rehydration - He does report burning dysuria. May have UTI. Will check urine culture and blood cultures, start empiric zosyn. - Consult Dr. Alvarado - Currently on levophed in ICU #Hyponatremia - Concerning for new adrenal insufficiency - Very hypovolemic on admission probably due to very poor appetite and fatigue. - Given IV fluids, patient taking lots of PO, rising appropriately #Hyperkalemia - May be related to adrenal insufficiency - Currently on stress-dose steroids - Medical management with kayexalate #Hyperthyroid - Free T4 is lower than last admission - Patient was restarted on methimazole prior to this admission, may have had poor reaction to it. Will switch to PTU per Dr. Alvarado's advice #Dyslipidemia - Continue simvastatin. #Diabetes - Insulin sliding scale - Will check HgbA1C - Currently very hyperglycemic due to stress dose steroids. Aggressively uptitrate subQ insulin. Contact: Son (Swedish speaking), Lucio Whitaker [phone] DVT: SCDs GI: PPI Result Diagram: 02/07/19 0510 02/07/19 0510 Subjective 24 Hr Interval Summary Free Text/Dictation Patient was started on norepinephrine gtt last night, which he is still requiring. Family reports he looks much better. He now has a ravenous appetite and is eating food from home. Exam/Review of Systems Exam Vitals Vital Signs Date Temp Pulse Resp B/P (MAP) Pulse Ox O2 O2 Flow FiO2 Time Delivery Rate 02/07/19 92 19 97/64 (75) 100 Nasal 06:45 Cannula 02/07/19 97.8 04:00 02/06/19 2.0 20:00 Intake and Output 02/06/19 02/06/19 02/07/19 1515:00 23:00 07:00 IntakeIntake Total 668.50 ml 950 ml OutputOutput Total 1000 ml BalanceBalance -331.50 ml 950 ml Exam Gen: Frail appearing man appearing much older than stated age sitting up in bed eating. Eyes: Miotic pupils bilaterally. No icterus. HEENT: Moist mucous membranes, clear oropharynx Neck: No lymphadenopathy. Slightly enlarged boggy thyroid, slightly pulsatile. Card: Regular rate and rhythm, no murmurs Pulm: Clear to auscultation bilaterally Abd: Soft, nontender. No hepatosplenomegaly. Normoactive bowel sounds. Ext: No cyanosis/clubbing/edema Skin: warm dry. Results Results 24hrs Laboratory Tests Test 02/06/19 12:40 02/06/19 12:41 02/06/19 14:37 02/06/19 19:18 White Blood Count 7.3 Red Blood Count 4.23 #L Hemoglobin 10.1 #L Hematocrit 32.5 L Mean Corpuscular Volume 76.8 L Mean Corpuscular 23.9 L Hemoglobin Mean Corpuscular 31.1 L Hemoglobin Concent Red Cell Distribution 18.8 H Width Platelet Count 168 Mean Platelet Volume 9.0 Immature Granulocytes % 1.400 H Neutrophils % 66.4 Lymphocytes % 15.3 Monocytes % 16.0 H Eosinophils % 0.6 Basophils % 0.3 Nucleated Red Blood 0.0 Cells % Immature Granulocytes # 0.100 H Neutrophils # 4.8 Lymphocytes # 1.1 Monocytes # 1.2 H Eosinophils # 0.0 Basophils # 0.0 Nucleated Red Blood 0.0 Cells # Prothrombin Time 13.7 Prothrombin Time Ratio 1.1 INR International 1.04 Normalized Ratio Activated 31.7 Partial Thromboplast Time Sodium Level 128 L Potassium Level 5.2 H Chloride Level 92 L Carbon Dioxide Level 27 Anion Gap 9 Blood Urea Nitrogen 23 H Creatinine 0.88 Est Glomerular Filtrat > 60 Rate mL/min Glucose Level 185 Calcium Level 9.3 Total Bilirubin 0.3 Direct Bilirubin 0.00 Indirect Bilirubin 0.3 Aspartate Amino 95 H Transf (AST/SGOT) Alanine 24 Aminotransferase (ALT/SG PT) Alkaline Phosphatase 174 H Troponin I < 0.012 Total Protein 6.4 Albumin 2.4 L Globulin 4.00 H Albumin/Globulin Ratio 0.60 Free Thyroxine Index 5.20 H Thyroxine (T4) 8.0 Triiodothyronine (T3) > 65.0 H Uptake Lactic Acid Level 4.8 *H 2.9 *H Free Thyroxine 4.73 H Free Triiodothyronine 3.43 (T3) pg/mL Random Cortisol 110.0 Test 02/06/19 21:51 02/06/19 22:35 02/07/19 02:05 02/07/19 02:59 Bedside Glucose 255 H 304 H 306 H 343 H Test 02/07/19 05:10 02/07/19 08:20 White Blood Count 6.7 Red Blood Count 4.44 L Hemoglobin 10.8 L Hematocrit 35.3 L Mean Corpuscular Volume 79.5 L Mean Corpuscular 24.3 L Hemoglobin Mean Corpuscular 30.6 L Hemoglobin Concent Red Cell Distribution 19.4 H Width Platelet Count 207 # Mean Platelet Volume 8.9 Immature Granulocytes % 1.600 H Neutrophils % 72.7 Lymphocytes % 16.1 Monocytes % 9.3 Eosinophils % 0.0 Basophils % 0.3 Nucleated Red Blood 0.3 H Cells % Immature Granulocytes # 0.110 H Neutrophils # 4.9 Lymphocytes # 1.1 Monocytes # 0.6 Eosinophils # 0.0 Basophils # 0.0 Nucleated Red Blood 0.0 Cells # Sodium Level 132 L Potassium Level 5.3 H Chloride Level 98 Carbon Dioxide Level 21 Anion Gap 13 Blood Urea Nitrogen 26 H Creatinine 1.08 Est Glomerular Filtrat > 60 Rate mL/min Glucose Level 380 #H Hemoglobin A1c 5.6 Calcium Level 9.0 Phosphorus Level 5.5 H Magnesium Level 1.5 L Thyroid Stimulating < 0.015 L Hormone (TSH) Bedside Glucose 499 *H Medications Medication Current Medications Sodium Chloride 1,000 ml @ 80 mls/hr [id number] IV Last administered on 02/07/19at 00:22; Admin Dose 80 MLS/HR; Start 02/06/19 at 14:55 IV Flush (NS 3 ml) 3 ml PER PROTOCOL IV ; Start 02/06/19 at 15:00 Ondansetron HCl (Zofran Inj) 4 mg Q6H PRN IV NAUSEA/VOMITING; Start 02/06/19 at 15:00 Acetaminophen (Tylenol Tab) 650 mg Q6H PRN PO .PAIN 1-3 OR TEMP; Start 02/06/19 at 15:00 Methimazole (Tapazole) 30 mg BID PO ; Start 02/06/19 at 21:00; Status Hold Atorvastatin Calcium (Lipitor) 10 mg DAILY@21 PO Last administered on 02/06/19at 21:21; Admin Dose 10 MG; Start 02/06/19 at 21:00 Diagnostic Test (Pha) (Accu-Chek) 1 ea 02 XX ; Start 02/07/19 at 02:00 Insulin Aspart (Novolog Insulin Pen) NOVOLOG *MILD* ALGORITHM WITH MEALS BEDTIME SC Last administered on 02/07/19at 08:23; Admin Dose 7 UNIT; Start 02/06/19 at 17:51 Piperacillin Sod/ Tazobactam Sod 100 ml @ 200 mls/hr Q6 IVPB Last administered on 02/07/19at 06:03; Admin Dose 200 MLS/HR; Start 02/06/19 at 18:00 Hydrocortisone (Solu-Cortef) 100 mg Q8 IV Last administered on 02/07/19at 06:03; Admin Dose 100 MG; Start 02/06/19 at 22:00 Miscellaneous Information 1 ea NOTE XX ; Start 02/06/19 at 16:00 Glucose (Glutose) 15 gm Q15M PRN PO DECREASED GLUCOSE; Start 02/06/19 at 16:00 Glucose (Glutose) 22.5 gm Q15M PRN PO DECREASED GLUCOSE; Start 02/06/19 at 16:00 Dextrose (D50w Syringe) 25 ml Q15M PRN IV DECREASED GLUCOSE; Start 02/06/19 at 16:00 Dextrose (D50w Syringe) 50 ml Q15M PRN IV DECREASED GLUCOSE; Start 02/06/19 at 16:00 Glucagon (Glucagen) 1 mg Q15M PRN IM DECREASED GLUCOSE; Start 02/06/19 at 16:00 Glucose (Glutose) 15 gm Q15M PRN BUCCAL DECREASED GLUCOSE; Start 02/06/19 at 16:00 Norepinephrine 250 ml @ 7.5 mls/hr ONCE STAT IV Last administered on 02/06/19at 17:22; Admin Dose 7.5 MLS/HR; Start 02/06/19 at 16:46; Stop 02/08/19 at 02:05 Propylthiouracil (Ptu) 200 mg QID PO Last administered on 02/07/19at 08:58; Admin Dose 200 MG; Start 02/06/19 at 21:00 Pantoprazole (Protonix Tab) 40 mg BID@0600,1800 PO Last administered on 02/07/19at 06:03; Admin Dose 40 MG; Start 02/07/19 at 06:00 Amoxicillin (Amoxicillin) 1,000 mg BID PO Last administered on 02/07/19at 08:58; Admin Dose 1,000 MG; Start 02/06/19 at 21:00; Stop 02/16/19 at 20:59 Clarithromycin (Biaxin) 500 mg BID PO Last administered on 02/07/19at 08:58; Admin Dose 500 MG; Start 02/06/19 at 21:00; Stop 02/16/19 at 20:59 Bismuth Subsalicylate (Pepto-Bismol) 30 ml WITH MEALS BEDTIME PO ; Start 02/06/19 at 21:00 Insulin Glargine (Lantus) 15 units DAILY@0930 SC ; Start 02/07/19 at 10:30 Insulin Aspart (Novolog Insulin Pen) 7 unit WITH MEALS SC Last administered on 02/07/19at 09:23; Admin Dose 7 UNIT; Start 02/07/19 at 09:30 PURVI QUIGLEY MD Feb 07, 2019 10:32
[2019-02-07] MEDS: INSULIN GLARGINE [LANTus] (100 UNITS/ML) SYG SC SCH (11:00)
--- NOTE | 2019-02-07 15:08 | CONS ---
Assessment/Plan Assessment/Plan Problems: (1) Graves' disease with exophthalmos Status: Chronic Comment: The sons report that he has been controlling the medications as borne out by laboratory tests. The son was not managing his medicines his thyroid hormone levels when he would go home would go up and up and out. Since this has been managing his thyroid hormone levels have come down. This is a good sign however it leaves us with a question about what else is wrong with this gentleman. (2) Helicobacter pylori stool test positive Status: Chronic Comment: Now on standard anti-H. pylori regimen. Please note I do not believe that this is the fundamental underlying abnormality for this gentleman. Question is raised about whether or not he could have adrenal insufficiency. While he is on the high-dose steroids I did have trouble testing that but will get to that in the next few days (3) Septic shock Status: Acute Comment: Improved nicely management as per primary team (4) Diabetes mellitus type 2 in nonobese Status: Chronic Comment: Adjust insulin dosing to cover the steroids with NPH at the same time as the dosing of the steroids Consultation Date/Type/Reason Admit Date/Time Feb 06, 2019 at 14:46 Initial Consult Date 02/06/19 Type of Consult Endocrine Reason for Consultation Patient clinically is feeling a little bit better and his family confirms that. Requesting Provider: RODRIGUEZ DOTY Date/Time of Note DATE: 02/07/19 TIME: 15:06 24 HR Interval Summary Free Text/Dictation Still with weakness Detailed Summary Endocrine: no complaints Exam/Review of Systems Exam Vitals Vital Signs Date Temp Pulse Resp B/P (MAP) Pulse Ox O2 O2 Flow FiO2 Time Delivery Rate 02/07/19 89 12:00 02/07/19 110/71 100 11:15 (84) 02/07/19 14 Room Air 11:00 Nasal Cannula 02/07/19 96.2 08:00 02/06/19 2.0 20:00 Intake and Output 02/06/19 02/06/19 02/07/19 1414:59 22:59 06:59 IntakeIntake Total 573.50 ml 950 ml OutputOutput Total 1000 ml BalanceBalance 573.50 ml -50 ml Constitutional: alert, oriented Respiratory: clear to auscultation, normal air movement Cardiovascular: regular rate and rhythm, nl pulses Gastrointestinal: soft, nl liver, spleen, non-tender Results Result Diagram: 02/07/19 0510 02/07/19 0510 Results 24hrs Laboratory Tests Test 02/06/19 19:18 02/06/19 21:51 02/06/19 22:35 02/07/19 02:05 Free Thyroxine 4.73 H Free Triiodothyronine 3.43 (T3) pg/mL Random Cortisol 110.0 Bedside Glucose 255 H 304 H 306 H Test 02/07/19 02:59 02/07/19 05:10 02/07/19 08:20 02/07/19 11:28 Bedside Glucose 343 H 499 *H 491 *H White Blood Count 6.7 Red Blood Count 4.44 L Hemoglobin 10.8 L Hematocrit 35.3 L Mean Corpuscular Volume 79.5 L Mean Corpuscular 24.3 L Hemoglobin Mean Corpuscular 30.6 L Hemoglobin Concent Red Cell Distribution 19.4 H Width Platelet Count 207 # Mean Platelet Volume 8.9 Immature Granulocytes % 1.600 H Neutrophils % 72.7 Lymphocytes % 16.1 Monocytes % 9.3 Eosinophils % 0.0 Basophils % 0.3 Nucleated Red Blood 0.3 H Cells % Immature Granulocytes # 0.110 H Neutrophils # 4.9 Lymphocytes # 1.1 Monocytes # 0.6 Eosinophils # 0.0 Basophils # 0.0 Nucleated Red Blood 0.0 Cells # Sodium Level 132 L Potassium Level 5.3 H Chloride Level 98 Carbon Dioxide Level 21 Anion Gap 13 Blood Urea Nitrogen 26 H Creatinine 1.08 Est Glomerular Filtrat > 60 Rate mL/min Glucose Level 380 #H Hemoglobin A1c 5.6 Calcium Level 9.0 Phosphorus Level 5.5 H Magnesium Level 1.5 L Thyroid Stimulating < 0.015 L Hormone (TSH) Medications Medication Current Medications Sodium Chloride 1,000 ml @ 80 mls/hr [id number] IV Last administered on 02/07/19at 13:44; Admin Dose 80 MLS/HR; Start 02/06/19 at 14:55 IV Flush (NS 3 ml) 3 ml PER PROTOCOL IV ; Start 02/06/19 at 15:00 Ondansetron HCl (Zofran Inj) 4 mg Q6H PRN IV NAUSEA/VOMITING; Start 02/06/19 at 15:00 Acetaminophen (Tylenol Tab) 650 mg Q6H PRN PO .PAIN 1-3 OR TEMP; Start 02/06/19 at 15:00 Atorvastatin Calcium (Lipitor) 10 mg DAILY@21 PO Last administered on 02/06/19at 21:21; Admin Dose 10 MG; Start 02/06/19 at 21:00 Diagnostic Test (Pha) (Accu-Chek) 1 ea 02 XX ; Start 02/07/19 at 02:00 Insulin Aspart (Novolog Insulin Pen) NOVOLOG *MILD* ALGORITHM WITH MEALS BEDTIME SC Last administered on 02/07/19at 11:34; Admin Dose 7 UNIT; Start 02/06/19 at 17:51 Piperacillin Sod/ Tazobactam Sod 100 ml @ 200 mls/hr Q6 IVPB Last administered on 02/07/19at 12:27; Admin Dose 200 MLS/HR; Start 02/06/19 at 18:00 Miscellaneous Information 1 ea NOTE XX ; Start 02/06/19 at 16:00 Glucose (Glutose) 15 gm Q15M PRN PO DECREASED GLUCOSE; Start 02/06/19 at 16:00 Glucose (Glutose) 22.5 gm Q15M PRN PO DECREASED GLUCOSE; Start 02/06/19 at 16:00 Dextrose (D50w Syringe) 25 ml Q15M PRN IV DECREASED GLUCOSE; Start 02/06/19 at 16:00 Dextrose (D50w Syringe) 50 ml Q15M PRN IV DECREASED GLUCOSE; Start 02/06/19 at 16:00 Glucagon (Glucagen) 1 mg Q15M PRN IM DECREASED GLUCOSE; Start 02/06/19 at 16:00 Glucose (Glutose) 15 gm Q15M PRN BUCCAL DECREASED GLUCOSE; Start 02/06/19 at 16:00 Propylthiouracil (Ptu) 200 mg QID PO Last administered on 02/07/19at 12:57; Admin Dose 200 MG; Start 02/06/19 at 21:00 Pantoprazole (Protonix Tab) 40 mg BID@0600,1800 PO Last administered on 02/07/19at 06:03; Admin Dose 40 MG; Start 02/07/19 at 06:00 Amoxicillin (Amoxicillin) 1,000 mg BID PO Last administered on 02/07/19at 08:58; Admin Dose 1,000 MG; Start 02/06/19 at 21:00; Stop 02/16/19 at 20:59 Clarithromycin (Biaxin) 500 mg BID PO Last administered on 02/07/19 08:58; Admin Dose 500 MG; Start 02/06/19 at 21:00; Stop 02/16/19 at 20:59 Insulin Glargine (Lantus) 15 units DAILY@0930 SC Last administered on 02/07/19 11:00; Admin Dose 15 UNITS; Start 02/07/19 at 10:30 Insulin Aspart (Novolog Insulin Pen) 7 unit WITH MEALS SC Last administered on 02/07/19at 11:34; Admin Dose 7 UNIT; Start 02/07/19 at 09:30 Norepinephrine 250 ml @ 1.875 mls/ hr TITRATE IV Last administered on 02/07/19at 10:47; Admin Dose 3.75 MLS/HR; Start 02/07/19 at 10:30 Bismuth Subsalicylate (Pepto-Bismol) 30 ml QID PO ; Start 02/07/19 at 17:00; Status UNV Hydrocortisone (Solu-Cortef) 50 mg Q8 IV ; Start 02/07/19 at 22:00; Status UNV Insulin Human NPH (Humulin N) 12 unit Q8 SC ; Start 02/07/19 at 22:00; Status UNV ANA GARCIA MD Feb 07, 2019 15:08
[2019-02-07] MEDS ORDERED: HYDROCORTISONE 100 MG INJ IV SCH (15:30)
[2019-02-07] MEDS: NPH, HUMAN INSULIN ISOPHANE 3ML VIAL SC SCH ×2 (16:31→21:38)
[2019-02-07] MEDS: ATORVASTATIN 10 MG TAB PO SCH (21:28)
[2019-02-08] VITALS (54 sets, daily range): BP systolic 94–148; BP diastolic 52–97; PULSE 77–95
[2019-02-08] MEDS ORDERED: SOD CHLORIDE 0.9% 250 ML IV ONE (02:30)
[2019-02-08] MEDS ORDERED: INSULIN ASPART [NOVOLOG] 3 ML PEN SC ONE (02:30)
[2019-02-08] MEDS: ACCU-CHEK XX SCH ×15 (02:42→22:54)
[2019-02-08] MEDS: SOD CHLORIDE 0.9% 1,000 ML IV SCH ×3 (05:40→22:57)
[2019-02-08] MEDS: PIPER-TAZO 3.375 GM IV (PMX) 100 ML IVPB SCH ×4 (05:46→23:50)
[2019-02-08] MEDS: PANTOPRAZOLE (EC) 40 MG TAB PO SCH ×2 (05:48→18:16)
[2019-02-08] MEDS: NPH, HUMAN INSULIN ISOPHANE 3ML VIAL SC SCH (05:52)
[2019-02-08] MEDS: HYDROCORTISONE 100 MG INJ IV SCH ×3 (05:56→22:53)
[2019-02-08] MEDS: INSULIN ASPART [NOVOLOG] 3 ML PEN SC SCH ×4 (07:35→16:57)
[2019-02-08] MEDS: BISMUTH SUBSALICYLATE 120 ML BTL PO SCH ×4 (08:29→21:00)
[2019-02-08] MEDS: CLARITHROMYCIN 500 MG TAB PO SCH ×2 (08:29→20:45)
[2019-02-08] MEDS: AMOXICILLIN 500 MG CAP PO SCH ×2 (08:29→20:46)
[2019-02-08] MEDS: PROPYLTHIOURACIL 50 MG TAB PO SCH (08:54)
[2019-02-08] MEDS ORDERED: DEXTROSE 50% 50 ML SYRINGE IV PRN ×2 (09:00)
--- NOTE | 2019-02-08 09:20 | PN ---
Date/Time of Note Date/Time of Note DATE: 02/08/19 TIME: 09:16 Assessment/Plan VTE Prophylaxis Risk score (from Ns)>0 risk: 7 SCD applied (from Ns): Yes Pharmacological prophylaxis: NA/contraindicated Pharm contraindication: low risk/ambulating Lines/Catheters IV Catheter Type (from Nrsg): Central Line Central line still needed: Yes Urinary Cath still in place: No Assessment/Plan Assessment/Plan 59 yo man history of HTN, hypothyroid presents with fatigue, hypotension, hyponatremia #Fatigue #Hypotension - IV fluid rehydration - He does report burning dysuria. May have UTI. Will check urine culture and blood cultures, start empiric zosyn. - Consult Dr. Alvarado - Currently on levophed in ICU #Hyponatremia - Concerning for new adrenal insufficiency - Very hypovolemic on admission probably due to very poor appetite and fatigue. - Given IV fluids, patient taking lots of PO, rising appropriately #Hyperkalemia - May be related to adrenal insufficiency - Currently on stress-dose steroids - Resolved #Hyperthyroid - Free T4 is lower than last admission - Patient was restarted on methimazole prior to this admission, may have had po or reaction to it. Switched to PTU per Dr. Alvarado's advice #Dyslipidemia - Continue simvastatin. #Diabetes - Currently very hyperglycemic due to stress dose steroids. - Insulin gtt started. Contact: Son (Peruvian speaking), Lucio Whitaker [phone] DVT: SCDs GI: PPI Result Diagram: 02/08/19 0746 02/08/19 0746 Subjective 24 Hr Interval Summary Free Text/Dictation No acute overnight events. Patient feeling well, no complaints. Persistently hyperglycemic not responding to subQ insulin. Started on insulin gtt. Weaned off norepinephrine this morning. Exam/Review of Systems Exam Vitals Vital Signs Date Temp Pulse Resp B/P (MAP) Pulse Ox O2 O2 Flow FiO2 Time Delivery Rate 02/08/19 85 132/83 100 Room Air 06:15 (99) 02/08/19 97.9 04:00 02/07/19 16 18:00 02/06/19 2.0 20:00 Intake and Output 02/07/19 02/07/19 02/08/19 1515:00 23:00 07:00 IntakeIntake Total 1832.50 ml 1524.35 ml 735.61 ml OutputOutput Total 900 ml 500 ml BalanceBalance 932.50 ml 1024.35 ml 735.61 ml Exam Gen: Frail appearing man sitting up in bed eating. Eyes: Miotic pupils bilaterally. No icterus. HEENT: Moist mucous membranes, clear oropharynx Neck: No lymphadenopathy. Slightly enlarged boggy thyroid, slightly pulsatile. Card: Regular rate and rhythm, no murmurs Pulm: Clear to auscultation bilaterally Abd: Soft, nontender. No hepatosplenomegaly. Normoactive bowel sounds. Ext: No cyanosis/clubbing/edema Skin: warm dry. Results Results 24hrs Laboratory Tests Test 02/07/19 11:28 02/07/19 17:25 02/07/19 21:22 02/08/19 02:24 Bedside Glucose 491 *H 425 *H 495 *H 476 *H Test 02/08/19 07:42 02/08/19 07:46 Bedside Glucose 438 *H White Blood Count 7.1 Red Blood Count 3.59 L Hemoglobin 8.6 #L Hematocrit 27.7 #L Mean Corpuscular Volume 77.2 L Mean Corpuscular 24.0 L Hemoglobin Mean Corpuscular 31.0 L Hemoglobin Concent Red Cell Distribution 19.2 H Width Platelet Count 186 Mean Platelet Volume 8.5 Immature Granulocytes % 1.700 H Neutrophils % 77.6 H Lymphocytes % 9.9 L Monocytes % 10.7 Eosinophils % 0.0 Basophils % 0.1 Nucleated Red Blood 0.0 Cells % Immature Granulocytes # 0.120 H Neutrophils # 5.5 Lymphocytes # 0.7 L Monocytes # 0.8 Eosinophils # 0.0 Basophils # 0.0 Nucleated Red Blood 0.0 Cells # Sodium Level 133 L Potassium Level 4.0 Chloride Level 102 Carbon Dioxide Level 22 Anion Gap 9 Blood Urea Nitrogen 32 H Creatinine 1.45 H Est Glomerular Filtrat 50 L Rate mL/min Glucose Level 466 *H Calcium Level 8.6 Phosphorus Level 3.6 Magnesium Level 1.8 Medications Medication Current Medications Sodium Chloride 1,000 ml @ 80 mls/hr [id number] IV Last administered on 02/08/19at 05:40; Admin Dose 80 MLS/HR; Start 02/06/19 at 14:55 IV Flush (NS 3 ml) 3 ml PER PROTOCOL IV ; Start 02/06/19 at 15:00 Ondansetron HCl (Zofran Inj) 4 mg Q6H PRN IV NAUSEA/VOMITING; Start 02/06/19 at 15:00 Acetaminophen (Tylenol Tab) 650 mg Q6H PRN PO .PAIN 1-3 OR TEMP; Start 02/06/19 at 15:00 Atorvastatin Calcium (Lipitor) 10 mg DAILY@21 PO Last administered on 02/07/19at 21:28; Admin Dose 10 MG; Start 02/06/19 at 21:00 Piperacillin Sod/ Tazobactam Sod 100 ml @ 200 mls/hr Q6 IVPB Last administered on 02/08/19at 05:46; Admin Dose 200 MLS/HR; Start 02/06/19 at 18:00 Miscellaneous Information 1 ea NOTE XX ; Start 02/06/19 at 16:00 Glucose (Glutose) 15 gm Q15M PRN PO DECREASED GLUCOSE; Start 02/06/19 at 16:00 Glucose (Glutose) 22.5 gm Q15M PRN PO DECREASED GLUCOSE; Start 02/06/19 at 16:00 Dextrose (D50w Syringe) 25 ml Q15M PRN IV DECREASED GLUCOSE; Start 02/06/19 at 16:00 Dextrose (D50w Syringe) 50 ml Q15M PRN IV DECREASED GLUCOSE; Start 02/06/19 at 16:00 Glucagon (Glucagen) 1 mg Q15M PRN IM DECREASED GLUCOSE; Start 02/06/19 at 16:00 Glucose (Glutose) 15 gm Q15M PRN BUCCAL DECREASED GLUCOSE; Start 02/06/19 at 16:00 Propylthiouracil (Ptu) 200 mg QID PO Last administered on 02/07/19at 17:10; Admin Dose 200 MG; Start 02/06/19 at 21:00 Pantoprazole (Protonix Tab) 40 mg BID@0600,1800 PO Last administered on 02/08/19at 05:48; Admin Dose 40 MG; Start 02/07/19 at 06:00 Amoxicillin (Amoxicillin) 1,000 mg BID PO Last administered on 02/08/19at 08:29; Admin Dose 1,000 MG; Start 02/06/19 at 21:00; Stop 02/16/19 at 20:59 Clarithromycin (Biaxin) 500 mg BID PO Last administered on 02/08/19at 08:29; Admin Dose 500 MG; Start 02/06/19 at 21:00; Stop 02/16/19 at 20:59 Insulin Glargine (Lantus) 15 units DAILY@0930 SC Last administered on 02/07/19at 11:00; Admin Dose 15 UNITS; Start 02/07/19 at 10:30 Insulin Aspart (Novolog Insulin Pen) 7 unit WITH MEALS SC Last administered on 02/08/19at 07:35; Admin Dose 7 UNIT; Start 02/07/19 at 09:30 Norepinephrine 250 ml @ 1.875 mls/ hr TITRATE IV Last administered on 02/07/19at 10:47; Admin Dose 3.75 MLS/HR; Start 02/07/19 at 10:30 Bismuth Subsalicylate (Pepto-Bismol) 30 ml QID PO Last administered on 02/08/19at 08:29; Admin Dose 30 ML; Start 02/07/19 at 17:00 Hydrocortisone (Solu-Cortef) 50 mg Q8 IV Last administered on 02/08/19at 05:56; Admin Dose 50 MG; Start 02/07/19 at 22:00 Diagnostic Test (Pha) (Accu-Chek) 1 ea Q1H XX ; Start 02/08/19 at 09:00; Status UNV Insulin Human Regular 100 unit/ Sodium Chloride 100 ml @ 0 mls/hr PER PROTOCOL I V ; Start 02/08/19 at 09:00; Status UNV Miscellaneous Information (* Miscellaneous Pharmacy Order) Treatment of Hypoglycemia: 1.BG 51... Per protocol XX ; Start 02/08/19 at 09:00; Status UNV Dextrose (D50w Syringe) 25 ml Q15M PRN IV .DECREASED GLUCOSE; Start 02/08/19 at 09:00; Status UNV Dextrose (D50w Syringe) 50 ml Q15M PRN IV .DECREASED GLUCOSE; Start 02/08/19 at 09:00; Status UNV PURVI QUIGLEY MD Feb 08, 2019 09:20
[2019-02-08] MEDS: INSULIN GLARGINE [LANTus] (100 UNITS/ML) SYG SC SCH (09:45)
[2019-02-08] MEDS: SENNA TAB PO SCH ×2 (10:10→20:45)
[2019-02-08] MEDS: INSULIN HUMAN REGULAR 100 UNIT in SOD CHLORIDE 0.9% 99 ML IV SCH ×2 (10:58→15:43)
--- NOTE | 2019-02-08 11:01 | CONS ---
Assessment/Plan Assessment/Plan Problems: (1) Graves' disease with exophthalmos Status: Chronic Comment: Thyrotoxicosis improved from previous visit w/ methimazole at home. However, still profoundly thyrotoxic. This is likely the cause of all of his symptoms. Pt. was changed from methimazole to high-dose PTU but pharmacy ran out last night and pt. has missed last 2 doses. If pharmacy cannot acquire more by this afternoon, will add LiCO3 until more PTU can be acquired. BP more stable since yesterday and HR remains controlled. (2) Diabetes mellitus type 2 in nonobese Status: Chronic Comment: BG OOC due to steroid use. Pt. on lantus 15 qam and Novolog 7 qac. Was getting NPH w/ his steroids but was insufficient. Plan was to increase dose today but BG is so high that while pt. is in ICU will convert NPH order to IV insulin to control. Cont. lantus and Novolog uninterrupted. Once the dose of extra insulin required established by insulin drip can convert back to doses of NPH that will maintain his glycemic control in the face of steroids. Consultation Date/Type/Reason Admit Date/Time Feb 06, 2019 at 14:46 Initial Consult Date 02/06/19 Type of Consult Endocrinology Reason for Consultation Thyrotoxicosis Requesting Provider: RODRIGUEZ DOTY Date/Time of Note DATE: 02/08/19 TIME: 10:54 24 HR Interval Summary Constitutional: No no complaints (diffuse generalized weakness), No improved Detailed Summary Respiratory: no complaints Cardiovascular: no complaints Gastrointestinal: no complaints Genitourinary: no complaints Musculoskeletal: no complaints Exam/Review of Systems Exam Vitals VS - Last 72 Hours, by Label Date Temp Pulse Resp B/P (MAP) Pulse Ox O2 O2 Flow FiO2 Time Delivery Rate 02/08/19 84 08:00 02/08/19 85 132/83 100 Room Air 06:15 (99) 02/08/19 85 135/79 100 Room Air 06:00 (97) 02/08/19 86 117/79 100 Room Air 05:45 (92) 02/08/19 87 113/77 100 Room Air 05:30 (89) 02/08/19 87 119/78 100 Room Air 05:15 (92) 02/08/19 87 109/80 100 Room Air 05:00 (90) 02/08/19 90 122/85 100 Room Air 04:45 (97) 02/08/19 89 139/90 100 Room Air 04:30 (106) 02/08/19 89 129/88 100 Room Air 04:15 (102) 02/08/19 97.9 93 123/88 100 Room Air 04:00 (100) 02/08/19 93 04:00 02/08/19 88 139/92 100 Room Air 03:45 (108) 02/08/19 87 145/93 100 Room Air 03:30 (110) 02/08/19 88 144/97 100 Room Air 03:15 (113) 02/08/19 87 148/95 100 Room Air 03:00 (112) 02/08/19 88 138/92 100 Room Air 02:45 (107) 02/08/19 87 146/94 100 Room Air 02:30 (111) 02/08/19 88 143/89 100 Room Air 02:15 (107) 02/08/19 89 143/91 100 Room Air 02:00 (108) 02/08/19 89 138/89 100 Room Air 01:45 (105) 02/08/19 90 135/86 99 Room Air 01:30 (102) 02/08/19 90 134/86 100 Room Air 01:15 (102) 02/08/19 91 124/81 100 Room Air 01:00 (95) 02/08/19 92 119/81 99 Room Air 00:45 (94) 02/08/19 93 119/80 99 Room Air 00:30 (93) 02/08/19 95 117/76 99 Room Air 00:15 (90) 02/08/19 97.9 94 111/74 99 Room Air 00:00 (86) 02/08/19 94 00:00 02/07/19 94 116/76 100 Room Air 23:45 (89) 02/07/19 91 120/76 100 Room Air 23:30 (91) 02/07/19 96 117/76 99 Room Air 23:15 (90) 02/07/19 96 100/67 100 Room Air 23:00 (78) 02/07/19 93 104/70 100 Room Air 22:45 (81) 02/07/19 95 109/71 100 Room Air 22:30 (84) 02/07/19 96 106/70 100 Room Air 22:15 (82) 02/07/19 94 105/74 100 Room Air 22:00 (84) 02/07/19 94 114/76 100 Room Air 21:45 (89) 02/07/19 97 103/71 100 Room Air 21:30 (82) 02/07/19 98 91/66 (74) 100 Room Air 21:15 02/07/19 93 94/68 (77) 100 Room Air 21:00 02/07/19 85 127/81 100 Room Air 20:45 (96) 02/07/19 87 122/78 100 Room Air 20:30 (93) 02/07/19 90 109/88 100 Room Air 20:15 (95) 02/07/19 86 20:00 02/07/19 97.8 86 114/74 100 Room Air 20:00 (87) 02/07/19 85 123/78 100 Room Air 19:45 (93) 02/07/19 84 111/73 100 Room Air 19:30 (86) 02/07/19 81 93/68 (76) 100 18:45 02/07/19 80 72/59 (63) 100 18:30 02/07/19 78 80/55 (63) 100 18:15 02/07/19 78 16 81/64 (70) 100 18:00 02/07/19 77 121/77 100 17:45 (92) 02/07/19 78 78/57 (64) 98 17:30 02/07/19 77 90/75 (80) 97 17:15 02/07/19 79 18 87/64 (72) 98 17:00 02/07/19 80 92/68 (76) 99 16:45 02/07/19 81 118/76 100 16:30 (90) 02/07/19 81 112/76 99 16:15 (88) 02/07/19 97.5 81 17 118/74 100 16:00 (89) 02/07/19 81 16:00 02/07/19 84 117/79 100 15:45 (92) 02/07/19 84 111/71 100 15:30 (84) 02/07/19 84 106/73 100 15:15 (84) 02/07/19 85 18 97/67 (77) 99 Room Air 15:00 02/07/19 86 94/64 (74) 98 14:45 02/07/19 86 90/61 (71) 98 14:30 02/07/19 86 88/62 (71) 98 14:15 02/07/19 85 16 90/64 (73) 100 Room Air 14:00 02/07/19 81 80/65 (70) 100 13:45 02/07/19 80 84/59 (67) 100 13:30 02/07/19 79 16 81/62 (68) 100 Room Air 13:15 02/07/19 82 119/75 100 12:45 (90) 02/07/19 87 97/60 (72) 100 12:30 02/07/19 89 101/62 100 12:15 (75) 02/07/19 89 12:00 02/07/19 97.8 90 14 109/60 100 Room Air 12:00 (76) 02/07/19 92 106/63 100 11:45 (77) 02/07/19 92 118/80 100 11:30 (93) 02/07/19 93 110/71 100 11:15 (84) 02/07/19 92 14 90/58 (69) 100 Room Air 11:00 Nasal Cannula 02/07/19 92 86/57 (67) 99 10:45 02/07/19 90 87/52 (64) 98 10:30 02/07/19 89 95/57 (70) 100 10:15 02/07/19 89 15 86/63 (71) 100 Nasal 10:00 Cannula 02/07/19 87 92/62 (72) 100 09:45 02/07/19 90 97/61 (73) 100 09:30 02/07/19 89 117/73 100 09:15 (88) 02/07/19 90 19 98/64 (75) 100 Nasal 09:00 Cannula 02/07/19 88 18 101/72 100 08:45 (82) 02/07/19 90 22 90/62 (71) 100 08:30 02/07/19 90 20 123/82 100 08:15 (96) 02/07/19 92 08:00 02/07/19 96.2 89 19 118/60 100 Nasal 08:00 (79) Cannula 02/07/19 21 100 07:45 02/07/19 21 124/70 100 07:30 (88) 02/07/19 19 126/76 100 07:15 (93) 02/07/19 19 111/72 100 Nasal 07:00 (85) Cannula 02/07/19 92 19 97/64 (75) 100 Nasal 06:45 Cannula 02/07/19 90 18 117/67 100 Nasal 06:30 (84) Cannula 02/07/19 88 19 108/64 100 Nasal 06:15 (79) Cannula 02/07/19 88 15 107/77 100 Nasal 06:00 (87) Cannula 02/07/19 84 22 100 Nasal 05:45 Cannula 02/07/19 87 16 100 Nasal 05:30 Cannula 02/07/19 84 100 Nasal 05:15 Cannula 02/07/19 90 0 Nasal 05:00 Cannula 02/07/19 83 19 116/76 100 Nasal 04:45 (89) Cannula 02/07/19 82 20 88/56 (67) 100 Nasal 04:30 Cannula 02/07/19 81 85/53 (64) 100 Nasal 04:15 Cannula 02/07/19 97.8 75 17 109/78 100 Nasal 04:00 (88) Cannula 02/07/19 75 04:00 02/07/19 74 20 134/77 100 Nasal 03:45 (96) Cannula 02/07/19 77 14 77/65 (69) 100 Nasal 03:30 Cannula 02/07/19 75 21 128/72 100 Nasal 03:15 (90) Cannula 02/07/19 73 19 123/77 100 Nasal 03:00 (92) Cannula 02/07/19 85 22 121/101 95 Nasal 02:45 (108) Cannula 02/07/19 80 22 111/76 100 Nasal 02:30 (88) Cannula 02/07/19 82 20 135/86 100 Nasal 02:15 (102) Cannula 02/07/19 85 13 138/84 100 Nasal 02:00 (102) Cannula 02/07/19 78 137/89 100 Nasal 01:45 (105) Cannula 02/07/19 76 16 120/65 100 Nasal 01:30 (83) Cannula 02/07/19 77 22 132/75 100 Nasal 01:15 (94) Cannula 02/07/19 78 17 113/82 100 Nasal 01:00 (92) Cannula 02/07/19 74 15 116/75 100 Nasal 00:45 (89) Cannula 02/07/19 77 3 116/64 100 Nasal 00:30 (81) Cannula 02/07/19 79 13 113/63 100 Nasal 00:15 (80) Cannula 02/07/19 81 00:00 02/07/19 97.7 80 22 141/87 100 Nasal 00:00 (105) Cannula 02/06/19 80 20 131/85 100 Nasal 23:45 (100) Cannula 02/06/19 76 20 133/77 100 Nasal 23:30 (95) Cannula 02/06/19 75 19 138/84 100 Nasal 23:15 (102) Cannula 02/06/19 76 23 132/81 100 Nasal 23:00 (98) Cannula 02/06/19 76 14 114/66 100 Nasal 22:45 (82) Cannula 02/06/19 75 22 102/55 100 Nasal 22:30 (71) Cannula 02/06/19 74 21 94/66 (75) 100 Nasal 22:15 Cannula 02/06/19 71 22 98/62 (74) 100 Nasal 22:00 Cannula 02/06/19 70 21 103/57 100 Nasal 21:45 (72) Cannula 02/06/19 72 17 100 Nasal 21:30 Cannula 02/06/19 73 16 81/65 (70) 100 Nasal 21:15 Cannula 02/06/19 73 17 90/53 (65) Nasal 21:00 Cannula 02/06/19 73 18 100/53 100 Nasal 20:45 (69) Cannula 02/06/19 78 15 117/79 100 Nasal 20:30 (92) Cannula 02/06/19 75 14 111/92 100 Nasal 20:15 (98) Cannula 02/06/19 75 20:00 02/06/19 Nasal 2.0 20:00 Cannula 02/06/19 97.8 77 10 93/40 (57) 100 Nasal 20:00 Cannula 02/06/19 75 20:00 02/06/19 76 8 101/64 100 19:45 (76) 02/06/19 72 22 90/62 (71) 100 19:30 02/06/19 72 16 93/65 (74) 100 Nasal 2.0 18:45 Cannula 02/06/19 71 8 93/69 (77) 100 Nasal 2.0 18:30 Cannula 02/06/19 71 15 104/74 100 Nasal 2.0 18:15 (84) Cannula 02/06/19 97.8 74 15 103/72 100 Nasal 2.0 18:00 (82) Cannula 02/06/19 70 17:50 02/06/19 97.8 66 18 149/88 100 Nasal 2.0 17:33 (108) Cannula 02/06/19 77 18 76/54 (61) 100 Nasal 2.0 16:45 Cannula 02/06/19 97.6 78 20 84/60 (68) 100 Nasal 2.0 15:30 Cannula 02/06/19 97.8 79 20 97/62 (74) 100 Room Air 15:00 02/06/19 98.6 79 20 96/60 (72) 100 Room Air 14:30 02/06/19 78 18 91/60 (70) 100 Room Air 14:19 02/06/19 76 18 68/51 (57) 100 Room Air 13:31 02/06/19 Nasal 2 12:41 Cannula 02/06/19 Nasal 2.0 12:41 Cannula 02/06/19 97.1 72 20 64/46 (52) 100 11:56 Vital Signs Date Temp Pulse Resp B/P (MAP) Pulse Ox O2 O2 Flow FiO2 Time Delivery Rate 02/08/19 84 08:00 02/08/19 132/83 100 Room Air 06:15 (99) 02/08/19 97.9 04:00 02/07/19 16 18:00 02/06/19 2.0 20:00 Intake and Output 02/07/19 02/07/19 02/08/19 1515:00 23:00 07:00 IntakeIntake Total 1832.50 ml 1524.35 ml 735.61 ml OutputOutput Total 900 ml 500 ml BalanceBalance 932.50 ml 1024.35 ml 735.61 ml Constitutional: alert, oriented, well developed, other (appears very weak) Psych: no complaints, nl mood/affect Neck: No bruits, No thyromegaly Respiratory: clear to auscultation, normal air movement Cardiovascular: regular rate and rhythm, nl pulses; No edema, No murmurs/extra sounds, No rub Gastrointestinal: soft, nl liver, spleen, non-tender, bowel sounds; No mass, No rebound or guarding Musculoskeletal: nl extremities to inspection Extremities: normal pulses; No cyanosis, No clubbing, No edema Neurological: [employer] TECH[employer]ICIAN II-XII intact, nl mental status, nl speech, nl strength Additional Comments Bedside Glucose - 72 Hours Test 02/06/19 21:51 02/06/19 22:35 02/07/19 02:05 02/07/19 02:59 Bedside 255 304 306 343 Glucose mg/dL (70-220) mg/dL (70-220) mg/dL (70-220) mg/dL (70-220) H H H H Test 02/07/19 08:20 02/07/19 11:28 02/07/19 17:25 02/07/19 21:22 Bedside 499 491 425 495 Glucose mg/dL (70-220) mg/dL (70-220) mg/dL (70-220) mg/dL (70-220) *H *H *H *H Test 02/08/19 02:24 02/08/19 07:42 Bedside 476 438 Glucose mg/dL (70-220) mg/dL (70-220) *H *H Results Result Diagram: 02/08/19 0746 02/08/19 0746 Results 24hrs Laboratory Tests Test 02/07/19 11:28 02/07/19 17:25 02/07/19 21:22 02/08/19 02:24 Bedside Glucose 491 *H 425 *H 495 *H 476 *H Test 02/08/19 07:42 02/08/19 07:46 Bedside Glucose 438 *H White Blood Count 7.1 Red Blood Count 3.59 L Hemoglobin 8.6 #L Hematocrit 27.7 #L Mean Corpuscular Volume 77.2 L Mean Corpuscular 24.0 L Hemoglobin Mean Corpuscular 31.0 L Hemoglobin Concent Red Cell Distribution 19.2 H Width Platelet Count 186 Mean Platelet Volume 8.5 Immature Granulocytes % 1.700 H Neutrophils % 77.6 H Lymphocytes % 9.9 L Monocytes % 10.7 Eosinophils % 0.0 Basophils % 0.1 Nucleated Red Blood 0.0 Cells % Immature Granulocytes # 0.120 H Neutrophils # 5.5 Lymphocytes # 0.7 L Monocytes # 0.8 Eosinophils # 0.0 Basophils # 0.0 Nucleated Red Blood 0.0 Cells # Sodium Level 133 L Potassium Level 4.0 Chloride Level 102 Carbon Dioxide Level 22 Anion Gap 9 Blood Urea Nitrogen 32 H Creatinine 1.45 H Est Glomerular Filtrat 50 L Rate mL/min Glucose Level 466 *H Calcium Level 8.6 Phosphorus Level 3.6 Magnesium Level 1.8 Medications Medication Current Medications Sodium Chloride 1,000 ml @ 80 mls/hr [id number] IV Last administered on 02/08/19at 05:40; Admin Dose 80 MLS/HR; Start 02/06/19 at 14:55 IV Flush (NS 3 ml) 3 ml PER PROTOCOL IV ; Start 02/06/19 at 15:00 Ondansetron HCl (Zofran Inj) 4 mg Q6H PRN IV NAUSEA/VOMITING; Start 02/06/19 at 15:00 Acetaminophen (Tylenol Tab) 650 mg Q6H PRN PO .PAIN 1-3 OR TEMP; Start 02/06/19 at 15:00 Atorvastatin Calcium (Lipitor) 10 mg DAILY@21 PO Last administered on 02/07/19at 21:28; Admin Dose 10 MG; Start 02/06/19 at 21:00 Piperacillin Sod/ Tazobactam Sod 100 ml @ 200 mls/hr Q6 IVPB Last administered on 02/08/19at 05:46; Admin Dose 200 MLS/HR; Start 02/06/19 at 18:00 Miscellaneous Information 1 ea NOTE XX ; Start 02/06/19 at 16:00 Glucose (Glutose) 15 gm Q15M PRN PO DECREASED GLUCOSE; Start 02/06/19 at 16:00 Glucose (Glutose) 22.5 gm Q15M PRN PO DECREASED GLUCOSE; Start 02/06/19 at 16:00 Dextrose (D50w Syringe) 25 ml Q15M PRN IV DECREASED GLUCOSE; Start 02/06/19 at 16:00 Dextrose (D50w Syringe) 50 ml Q15M PRN IV DECREASED GLUCOSE; Start 02/06/19 at 16:00 Glucagon (Glucagen) 1 mg Q15M PRN IM DECREASED GLUCOSE; Start 02/06/19 at 16:00 Glucose (Glutose) 15 gm Q15M PRN BUCCAL DECREASED GLUCOSE; Start 02/06/19 at 16:00 Propylthiouracil (Ptu) 200 mg QID PO Last administered on 02/07/19at 17:10; Admin Dose 200 MG; Start 02/06/19 at 21:00 Pantoprazole (Protonix Tab) 40 mg BID@0600,1800 PO Last administered on 02/08/19 05:48; Admin Dose 40 MG; Start 02/07/19 at 06:00 Amoxicillin (Amoxicillin) 1,000 mg BID PO Last administered on 02/08/19 08:29; Admin Dose 1,000 MG; Start 02/06/19 at 21:00; Stop 02/16/19 at 20:59 Clarithromycin (Biaxin) 500 mg BID PO Last administered on 02/08/19 08:29; Admin Dose 500 MG; Start 02/06/19 at 21:00; Stop 02/16/19 at 20:59 Insulin Glargine (Lantus) 15 units DAILY@0930 SC Last administered on 02/08/19 09:45; Admin Dose 15 UNITS; Start 02/07/19 at 10:30 Insulin Aspart (Novolog Insulin Pen) 7 unit WITH MEALS SC Last administered on 02/08/19 07:35; Admin Dose 7 UNIT; Start 02/07/19 at 09:30 Norepinephrine 250 ml @ 1.875 mls/ hr TITRATE IV Last administered on 02/07/19 10:47; Admin Dose 3.75 MLS/HR; Start 02/07/19 at 10:30 Bismuth Subsalicylate (Pepto-Bismol) 30 ml QID PO Last administered on 02/08/19 08:29; Admin Dose 30 ML; Start 02/07/19 at 17:00 Hydrocortisone (Solu-Cortef) 50 mg Q8 IV Last administered on 02/08/19 05:56; Admin Dose 50 MG; Start 02/07/19 at 22:00 Diagnostic Test (Pha) (Accu-Chek) 1 ea Q1H XX Last administered on 02/08/19at 1 0:11; Admin Dose 1 EA; Start 02/08/19 at 09:00 Insulin Human Regular 100 unit/ Sodium Chloride 100 ml @ 0 mls/hr PER PROTOCOL IV ; Start 02/08/19 at 09:00 Miscellaneous Information (* Miscellaneous Pharmacy Order) Treatment of Hypoglycemia: 1.BG 51... Per protocol XX ; Start 02/08/19 at 09:00 Dextrose (D50w Syringe) 25 ml Q15M PRN IV .DECREASED GLUCOSE; Start 02/08/19 at 09:00 Dextrose (D50w Syringe) 50 ml Q15M PRN IV .DECREASED GLUCOSE; Start 02/08/19 at 09:00 Senna (Senokot) 2 tab BID PO Last administered on 02/08/19at 10:10; Admin Dose 2 TAB; Start 02/08/19 at 10:00 DAVID BURNHAM MD Feb 08, 2019 11:01
[2019-02-08] MEDS: ONDANSETRON 4 MG INJ IV PRN (12:59)
[2019-02-08] MEDS: METHIMAZOLE 5 MG TAB PO SCH ×2 (13:47→20:46)
[2019-02-08] MEDS ORDERED: NPH, HUMAN INSULIN ISOPHANE 3ML VIAL SC SCH (14:00)
[2019-02-08] MEDS ORDERED: MAGNESIUM SULFATE 2 GM/50 ML 50 ML IVPB ONE (15:30)
[2019-02-08] MEDS ORDERED: POTASSIUM CHLORIDE 20 MEQ POWDER FOR ORAL SOLN PO ONE (15:30)
[2019-02-08] MEDS: ATORVASTATIN 10 MG TAB PO SCH (20:46)
[2019-02-08] MEDS ORDERED: SENNA TAB PO SCH (21:00)
[2019-02-09] VITALS (20 sets, daily range): BP systolic 95–152; BP diastolic 66–99; PULSE 74–100; RESP 18
[2019-02-09] MEDS: ACCU-CHEK XX SCH ×18 (01:00→17:00)
[2019-02-09] MEDS: HYDROCORTISONE 100 MG INJ IV SCH ×3 (06:01→22:16)
[2019-02-09] MEDS: PANTOPRAZOLE (EC) 40 MG TAB PO SCH ×2 (06:01→17:45)
[2019-02-09] MEDS: PIPER-TAZO 3.375 GM IV (PMX) 100 ML IVPB SCH (06:01)
[2019-02-09] MEDS: INSULIN ASPART [NOVOLOG] 3 ML PEN SC SCH ×5 (08:23→22:30)
[2019-02-09] MEDS: CLARITHROMYCIN 500 MG TAB PO SCH ×2 (08:29→22:17)
[2019-02-09] MEDS: SENNA TAB PO SCH ×2 (08:29→22:19)
[2019-02-09] MEDS: AMOXICILLIN 500 MG CAP PO SCH ×2 (08:29→22:18)
[2019-02-09] MEDS: METHIMAZOLE 5 MG TAB PO SCH ×2 (08:30→22:18)
[2019-02-09] MEDS: BISMUTH SUBSALICYLATE 120 ML BTL PO SCH ×4 (08:31→22:19)
[2019-02-09] MEDS: INSULIN GLARGINE [LANTus] (100 UNITS/ML) SYG SC SCH (08:36)
--- NOTE | 2019-02-09 13:06 | CONS ---
Assessment/Plan Assessment/Plan Problems: (1) Graves' disease with exophthalmos Status: Chronic Comment: Pt. unable to get PTU. Switched back to methimazole. No evidence of adverse reaction. Will continue. Pt. clinically improved w/ BP maintenance and HR control. Not on beta-blockers at this time. Will continue methimazole at this time. If adverse reaction recurs, plan LiCO3. (2) Diabetes mellitus type 2 in nonobese Status: Chronic Comment: Normalization of glucose w/ insulin drip. Mild hypoglycemia last night and has not required resumption of insulin drip since then. Monitor BG and consider restarting NPH if BG increases. Consultation Date/Type/Reason Admit Date/Time Feb 06, 2019 at 14:46 Initial Consult Date 02/06/19 Type of Consult Endocrinology Reason for Consultation Thyrotoxicosis Requesting Provider: RODRIGUEZ DOTY Date/Time of Note DATE: 02/09/19 TIME: 13:01 24 HR Interval Summary Subjective hx not possible: pt non-verbal (sleeping) Exam/Review of Systems Exam Vitals VS - Last 72 Hours, by Label Date Temp Pulse Resp B/P (MAP) Pulse Ox O2 O2 Flow FiO2 Time Delivery Rate 02/09/19 97.6 83 129/78 100 Room Air 08:00 (95) 02/09/19 83 08:00 02/09/19 84 129/78 100 Room Air 07:00 (95) 02/09/19 85 121/80 100 Room Air 06:00 (94) 02/09/19 79 135/85 100 Room Air 05:00 (102) 02/09/19 97.7 74 108/71 100 Room Air 04:00 (83) 02/09/19 75 04:00 02/09/19 74 95/66 (76) 100 Room Air 03:00 02/09/19 81 152/99 100 Room Air 02:00 (116) 02/09/19 75 129/77 99 Room Air 01:00 (94) 02/09/19 78 00:00 02/09/19 97.8 77 119/76 100 Room Air 00:00 (90) 02/08/19 84 135/87 100 Room Air 23:00 (103) 02/08/19 81 123/80 100 Room Air 22:00 (94) 02/08/19 82 135/82 100 Room Air 21:00 (99) 02/08/19 78 20:00 02/08/19 97.8 77 114/69 100 Room Air 20:00 (84) 02/08/19 82 117/74 100 Room Air 19:00 (88) 02/08/19 78 106/69 100 18:00 (81) 02/08/19 81 104/71 100 Room Air 17:00 (82) 02/08/19 97.2 80 95/64 (74) 100 Room Air 16:00 02/08/19 81 16:00 02/08/19 83 111/68 100 Room Air 15:00 (82) 02/08/19 85 109/72 100 Room Air 14:00 (84) 02/08/19 85 100/52 100 Room Air 13:00 (68) 02/08/19 85 12:00 02/08/19 97.0 85 109/75 100 Room Air 12:00 (86) 02/08/19 88 117/76 100 Room Air 11:00 (90) 02/08/19 82 111/72 100 10:45 (85) 02/08/19 83 109/73 100 10:30 (85) 02/08/19 83 119/71 100 10:15 (87) 02/08/19 81 99/69 (79) 100 Room Air 10:00 02/08/19 82 94/65 (75) 100 09:45 02/08/19 82 101/73 100 09:15 (82) 02/08/19 81 102/73 100 Room Air 09:00 (83) 02/08/19 89 109/77 100 08:45 (88) 02/08/19 83 112/80 100 08:30 (91) 02/08/19 83 131/82 100 08:15 (98) 02/08/19 84 08:00 02/08/19 96.8 84 128/86 100 Room Air 08:00 (100) 02/08/19 83 142/88 100 07:45 (106) 02/08/19 82 120/80 100 07:30 (93) 02/08/19 84 126/82 100 07:15 (97) 02/08/19 86 130/86 100 Room Air 07:00 (101) 02/08/19 85 132/83 100 Room Air 06:15 (99) 02/08/19 85 135/79 100 Room Air 06:00 (97) 02/08/19 86 117/79 100 Room Air 05:45 (92) 02/08/19 87 113/77 100 Room Air 05:30 (89) 02/08/19 87 119/78 100 Room Air 05:15 (92) 02/08/19 87 109/80 100 Room Air 05:00 (90) 02/08/19 90 122/85 100 Room Air 04:45 (97) 02/08/19 89 139/90 100 Room Air 04:30 (106) 02/08/19 89 129/88 100 Room Air 04:15 (102) 02/08/19 97.9 93 123/88 100 Room Air 04:00 (100) 02/08/19 93 04:00 02/08/19 88 139/92 100 Room Air 03:45 (108) 02/08/19 87 145/93 100 Room Air 03:30 (110) 02/08/19 88 144/97 100 Room Air 03:15 (113) 02/08/19 87 148/95 100 Room Air 03:00 (112) 02/08/19 88 138/92 100 Room Air 02:45 (107) 02/08/19 87 146/94 100 Room Air 02:30 (111) 02/08/19 88 143/89 100 Room Air 02:15 (107) 02/08/19 89 143/91 100 Room Air 02:00 (108) 02/08/19 89 138/89 100 Room Air 01:45 (105) 02/08/19 90 135/86 99 Room Air 01:30 (102) 02/08/19 90 134/86 100 Room Air 01:15 (102) 02/08/19 91 124/81 100 Room Air 01:00 (95) 02/08/19 92 119/81 99 Room Air 00:45 (94) 02/08/19 93 119/80 99 Room Air 00:30 (93) 02/08/19 95 117/76 99 Room Air 00:15 (90) 02/08/19 97.9 94 111/74 99 Room Air 00:00 (86) 02/08/19 94 00:00 02/07/19 94 116/76 100 Room Air 23:45 (89) 02/07/19 91 120/76 100 Room Air 23:30 (91) 02/07/19 96 117/76 99 Room Air 23:15 (90) 02/07/19 96 100/67 100 Room Air 23:00 (78) 02/07/19 93 104/70 100 Room Air 22:45 (81) 02/07/19 95 109/71 100 Room Air 22:30 (84) 02/07/19 96 106/70 100 Room Air 22:15 (82) 02/07/19 94 105/74 100 Room Air 22:00 (84) 02/07/19 94 114/76 100 Room Air 21:45 (89) 02/07/19 97 103/71 100 Room Air 21:30 (82) 02/07/19 98 91/66 (74) 100 Room Air 21:15 02/07/19 93 94/68 (77) 100 Room Air 21:00 02/07/19 85 127/81 100 Room Air 20:45 (96) 02/07/19 87 122/78 100 Room Air 20:30 (93) 02/07/19 90 109/88 100 Room Air 20:15 (95) 02/07/19 86 20:00 02/07/19 97.8 86 114/74 100 Room Air 20:00 (87) 02/07/19 85 123/78 100 Room Air 19:45 (93) 02/07/19 84 111/73 100 Room Air 19:30 (86) 02/07/19 81 93/68 (76) 100 18:45 02/07/19 80 72/59 (63) 100 18:30 02/07/19 78 80/55 (63) 100 18:15 02/07/19 78 16 81/64 (70) 100 18:00 02/07/19 77 121/77 100 17:45 (92) 02/07/19 78 78/57 (64) 98 17:30 02/07/19 77 90/75 (80) 97 17:15 02/07/19 79 18 87/64 (72) 98 17:00 02/07/19 80 92/68 (76) 99 16:45 02/07/19 81 118/76 100 16:30 (90) 02/07/19 81 112/76 99 16:15 (88) 02/07/19 97.5 81 17 118/74 100 16:00 (89) 02/07/19 81 16:00 02/07/19 84 117/79 100 15:45 (92) 02/07/19 84 111/71 100 15:30 (84) 02/07/19 84 106/73 100 15:15 (84) 02/07/19 85 18 97/67 (77) 99 Room Air 15:00 02/07/19 86 94/64 (74) 98 14:45 02/07/19 86 90/61 (71) 98 14:30 02/07/19 86 88/62 (71) 98 14:15 02/07/19 85 16 90/64 (73) 100 Room Air 14:00 02/07/19 81 80/65 (70) 100 13:45 02/07/19 80 84/59 (67) 100 13:30 02/07/19 79 16 81/62 (68) 100 Room Air 13:15 02/07/19 82 119/75 100 12:45 (90) 02/07/19 87 97/60 (72) 100 12:30 02/07/19 89 101/62 100 12:15 (75) 02/07/19 89 12:00 02/07/19 97.8 90 14 109/60 100 Room Air 12:00 (76) 02/07/19 92 106/63 100 11:45 (77) 02/07/19 92 118/80 100 11:30 (93) 02/07/19 93 110/71 100 11:15 (84) 02/07/19 92 14 90/58 (69) 100 Room Air 11:00 Nasal Cannula 02/07/19 92 86/57 (67) 99 10:45 02/07/19 90 87/52 (64) 98 10:30 02/07/19 89 95/57 (70) 100 10:15 02/07/19 89 15 86/63 (71) 100 Nasal 10:00 Cannula 02/07/19 87 92/62 (72) 100 09:45 02/07/19 90 97/61 (73) 100 09:30 02/07/19 89 117/73 100 09:15 (88) 02/07/19 90 19 98/64 (75) 100 Nasal 09:00 Cannula 02/07/19 88 18 101/72 100 08:45 (82) 02/07/19 90 22 90/62 (71) 100 08:30 02/07/19 90 20 123/82 100 08:15 (96) 02/07/19 92 08:00 02/07/19 96.2 89 19 118/60 100 Nasal 08:00 (79) Cannula 02/07/19 21 100 07:45 02/07/19 21 124/70 100 07:30 (88) 02/07/19 19 126/76 100 07:15 (93) 02/07/19 19 111/72 100 Nasal 07:00 (85) Cannula 02/07/19 92 19 97/64 (75) 100 Nasal 06:45 Cannula 02/07/19 90 18 117/67 100 Nasal 06:30 (84) Cannula 02/07/19 88 19 108/64 100 Nasal 06:15 (79) Cannula 02/07/19 88 15 107/77 100 Nasal 06:00 (87) Cannula 02/07/19 84 22 100 Nasal 05:45 Cannula 02/07/19 87 16 100 Nasal 05:30 Cannula 02/07/19 84 100 Nasal 05:15 Cannula 02/07/19 90 0 Nasal 05:00 Cannula 02/07/19 83 19 116/76 100 Nasal 04:45 (89) Cannula 02/07/19 82 20 88/56 (67) 100 Nasal 04:30 Cannula 02/07/19 81 85/53 (64) 100 Nasal 04:15 Cannula 02/07/19 97.8 75 17 109/78 100 Nasal 04:00 (88) Cannula 02/07/19 75 04:00 02/07/19 74 20 134/77 100 Nasal 03:45 (96) Cannula 02/07/19 77 14 77/65 (69) 100 Nasal 03:30 Cannula 02/07/19 75 21 128/72 100 Nasal 03:15 (90) Cannula 02/07/19 73 19 123/77 100 Nasal 03:00 (92) Cannula 02/07/19 85 22 121/101 95 Nasal 02:45 (108) Cannula 02/07/19 80 22 111/76 100 Nasal 02:30 (88) Cannula 02/07/19 82 20 135/86 100 Nasal 02:15 (102) Cannula 02/07/19 85 13 138/84 100 Nasal 02:00 (102) Cannula 02/07/19 78 137/89 100 Nasal 01:45 (105) Cannula 02/07/19 76 16 120/65 100 Nasal 01:30 (83) Cannula 02/07/19 77 22 132/75 100 Nasal 01:15 (94) Cannula 02/07/19 78 17 113/82 100 Nasal 01:00 (92) Cannula 02/07/19 74 15 116/75 100 Nasal 00:45 (89) Cannula 02/07/19 77 3 116/64 100 Nasal 00:30 (81) Cannula 02/07/19 79 13 113/63 100 Nasal 00:15 (80) Cannula 02/07/19 81 00:00 02/07/19 97.7 80 22 141/87 100 Nasal 00:00 (105) Cannula 02/06/19 80 20 131/85 100 Nasal 23:45 (100) Cannula 02/06/19 76 20 133/77 100 Nasal 23:30 (95) Cannula 02/06/19 75 19 138/84 100 Nasal 23:15 (102) Cannula 02/06/19 76 23 132/81 100 Nasal 23:00 (98) Cannula 02/06/19 76 14 114/66 100 Nasal 22:45 (82) Cannula 02/06/19 75 22 102/55 100 Nasal 22:30 (71) Cannula 02/06/19 74 21 94/66 (75) 100 Nasal 22:15 Cannula 02/06/19 71 22 98/62 (74) 100 Nasal 22:00 Cannula 02/06/19 70 21 103/57 100 Nasal 21:45 (72) Cannula 02/06/19 72 17 100 Nasal 21:30 Cannula 02/06/19 73 16 81/65 (70) 100 Nasal 21:15 Cannula 02/06/19 73 17 90/53 (65) Nasal 21:00 Cannula 02/06/19 73 18 100/53 100 Nasal 20:45 (69) Cannula 02/06/19 78 15 117/79 100 Nasal 20:30 (92) Cannula 02/06/19 75 14 111/92 100 Nasal 20:15 (98) Cannula 02/06/19 75 20:00 02/06/19 Nasal 2.0 20:00 Cannula 02/06/19 97.8 77 10 93/40 (57) 100 Nasal 20:00 Cannula 02/06/19 75 20:00 02/06/19 76 8 101/64 100 19:45 (76) 02/06/19 72 22 90/62 (71) 100 19:30 02/06/19 72 16 93/65 (74) 100 Nasal 2.0 18:45 Cannula 02/06/19 71 8 93/69 (77) 100 Nasal 2.0 18:30 Cannula 02/06/19 71 15 104/74 100 Nasal 2.0 18:15 (84) Cannula 02/06/19 97.8 74 15 103/72 100 Nasal 2.0 18:00 (82) Cannula 02/06/19 70 17:50 02/06/19 97.8 66 18 149/88 100 Nasal 2.0 17:33 (108) Cannula 02/06/19 77 18 76/54 (61) 100 Nasal 2.0 16:45 Cannula 02/06/19 97.6 78 20 84/60 (68) 100 Nasal 2.0 15:30 Cannula 02/06/19 97.8 79 20 97/62 (74) 100 Room Air 15:00 02/06/19 98.6 79 20 96/60 (72) 100 Room Air 14:30 02/06/19 78 18 91/60 (70) 100 Room Air 14:19 02/06/19 76 18 68/51 (57) 100 Room Air 13:31 Vital Signs Date Temp Pulse Resp B/P (MAP) Pulse Ox O2 O2 Flow FiO2 Time Delivery Rate 02/09/19 97.6 83 129/78 100 Room Air 08:00 (95) 02/07/19 16 18:00 02/06/19 2.0 20:00 Intake and Output 02/08/19 02/08/19 02/09/19 1515:00 23:00 07:00 IntakeIntake Total 1112 ml 928.0 ml 930.5 ml OutputOutput Total 1200 ml 0 ml 575 ml BalanceBalance -88 ml 928.0 ml 355.5 ml Constitutional: non-verbal (sleeping) Respiratory: clear to auscultation, normal air movement Cardiovascular: regular rate and rhythm, nl pulses; No edema, No murmurs/extra sounds, No rub Gastrointestinal: soft, nl liver, spleen, non-tender, bowel sounds; No mass, No rebound or guarding Musculoskeletal: nl extremities to inspection Extremities: normal pulses; No cyanosis, No clubbing, No edema Neurological: WE[employer]ESSMAN II-XII intact, nl mental status, nl speech, nl strength Additional Comments Bedside Glucose - 72 Hours Test 02/06/19 21:51 02/06/19 22:35 02/07/19 02:05 02/07/19 02:59 Bedside 255 304 306 343 Glucose mg/dL (70-220) mg/dL (70-220) mg/dL (70-220) mg/dL (70-220) H H H H Test 02/07/19 08:20 02/07/19 11:28 02/07/19 17:25 02/07/19 21:22 Bedside 499 491 425 495 Glucose mg/dL (70-220) mg/dL (70-220) mg/dL (70-220) mg/dL (70-220) *H *H *H *H Test 02/08/19 02:24 02/08/19 07:42 02/08/19 10:54 02/08/19 11:54 Bedside 476 438 420 379 Glucose mg/dL (70-220) mg/dL (70-220) mg/dL (70-220) mg/dL (70-220) *H *H *H H Test 02/08/19 12:49 02/08/19 13:52 02/08/19 14:51 02/08/19 15:48 Bedside 338 298 227 181 Glucose mg/dL (70-220) mg/dL (70-220) mg/dL (70-220) mg/dL (70-220) H H H Test 02/08/19 16:52 02/08/19 17:54 02/08/19 18:52 02/08/19 20:21 Bedside 118 102 90 89 Glucose mg/dL (70-220) mg/dL (70-220) mg/dL (70-220) mg/dL (70-220) Test 02/08/19 21:01 02/08/19 22:49 02/09/19 00:52 02/09/19 01:55 Bedside 87 80 68 69 Glucose mg/dL (70-220) mg/dL (70-220) mg/dL (70-220) mg/dL (70-220) L L Test 02/09/19 03:03 02/09/19 04:44 02/09/19 06:06 02/09/19 08:19 Bedside 93 99 127 143 Glucose mg/dL (70-220) mg/dL (70-220) mg/dL (70-220) mg/dL (70-220) Test 02/09/19 09:58 02/09/19 11:45 Bedside 144 172 Glucose mg/dL (70-220) mg/dL (70-220) Results Result Diagram: 02/09/19 0440 02/09/19 0440 Results 24hrs Laboratory Tests Test 02/08/19 13:52 02/08/19 14:06 02/08/19 14:51 02/08/19 15:48 Bedside Glucose 298 H 227 H 181 Sodium Level 136 Potassium Level 3.3 L Chloride Level 104 Carbon Dioxide Level 23 Anion Gap 9 Blood Urea Nitrogen 34 H Creatinine 1.46 H Est Glomerular Filtrat 50 L Rate mL/min Glucose Level 242 #H Calcium Level 9.0 Magnesium Level 1.8 Troponin I < 0.012 Test 02/08/19 16:52 02/08/19 17:54 02/08/19 18:52 02/08/19 20:21 Bedside Glucose 118 102 90 89 Test 02/08/19 21:01 02/08/19 22:49 02/09/19 00:52 02/09/19 01:55 Bedside Glucose 87 80 68 L 69 L Test 02/09/19 03:03 02/09/19 04:40 02/09/19 04:44 02/09/19 06:06 Bedside Glucose 93 99 127 White Blood Count 7.1 Red Blood Count 3.43 L Hemoglobin 8.2 L Hematocrit 26.2 L Mean Corpuscular Volume 76.4 L Mean Corpuscular 23.9 L Hemoglobin Mean Corpuscular 31.3 L Hemoglobin Concent Red Cell Distribution 19.7 H Width Platelet Count 157 Mean Platelet Volume 8.4 Immature Granulocytes % 1.600 H Neutrophils % 79.5 H Lymphocytes % 10.1 L Monocytes % 8.7 Eosinophils % 0.0 Basophils % 0.1 Nucleated Red Blood 0.0 Cells % Immature Granulocytes # 0.110 H Neutrophils # 5.6 Lymphocytes # 0.7 L Monocytes # 0.6 Eosinophils # 0.0 Basophils # 0.0 Nucleated Red Blood 0.0 Cells # Sodium Level 137 Potassium Level 3.8 Chloride Level 106 Carbon Dioxide Level 24 Anion Gap 7 Blood Urea Nitrogen 31 H Creatinine 1.50 H Est Glomerular Filtrat 48 L Rate mL/min Glucose Level 98 # Calcium Level 8.9 Phosphorus Level 4.5 Magnesium Level 2.1 Test 02/09/19 08:19 02/09/19 09:58 02/09/19 11:45 Bedside Glucose 143 144 172 Medications Medication Current Medications Sodium Chloride 1,000 ml @ 80 mls/hr [id number] IV Last administered on 02/08/19at 22:57; Admin Dose 80 MLS/HR; Start 02/06/19 at 14:55 IV Flush (NS 3 ml) 3 ml PER PROTOCOL IV ; Start 02/06/19 at 15:00 Ondansetron HCl (Zofran Inj) 4 mg Q6H PRN IV NAUSEA/VOMITING Last administered on 02/08/19at 12:59; Admin Dose 4 MG; Start 02/06/19 at 15:00 Acetaminophen (Tylenol Tab) 650 mg Q6H PRN PO .PAIN 1-3 OR TEMP; Start 02/06/19 at 15:00 Atorvastatin Calcium (Lipitor) 10 mg DAILY@21 PO Last administered on 02/08/19at 20:46; Admin Dose 10 MG; Start 02/06/19 at 21:00 Miscellaneous Information 1 ea NOTE XX ; Start 02/06/19 at 16:00 Glucose (Glutose) 15 gm Q15M PRN PO DECREASED GLUCOSE; Start 02/06/19 at 16:00 Glucose (Glutose) 22.5 gm Q15M PRN PO DECREASED GLUCOSE; Start 02/06/19 at 16:00 Dextrose (D50w Syringe) 25 ml Q15M PRN IV DECREASED GLUCOSE; Start 02/06/19 at 16:00 Dextrose (D50w Syringe) 50 ml Q15M PRN IV DECREASED GLUCOSE; Start 02/06/19 at 16:00 Glucagon (Glucagen) 1 mg Q15M PRN IM DECREASED GLUCOSE; Start 02/06/19 at 16:00 Glucose (Glutose) 15 gm Q15M PRN BUCCAL DECREASED GLUCOSE; Start 02/06/19 at 16:00 Pantoprazole (Protonix Tab) 40 mg BID@0600,1800 PO Last administered on 02/09/19at 06:01; Admin Dose 40 MG; Start 02/07/19 at 06:00 Amoxicillin (Amoxicillin) 1,000 mg BID PO Last administered on 02/09/19 08:29; Admin Dose 1,000 MG; Start 02/06/19 at 21:00; Stop 02/16/19 at 20:59 Clarithromycin (Biaxin) 500 mg BID PO Last administered on 02/09/19 08:29; Admin Dose 500 MG; Start 02/06/19 at 21:00; Stop 02/16/19 at 20:59 Insulin Glargine (Lantus) 15 units DAILY@0930 SC Last administered on 02/09/19 08:36; Admin Dose 15 UNITS; Start 02/07/19 at 10:30 Insulin Aspart (Novolog Insulin Pen) 7 unit WITH MEALS SC Last administered on 02/09/19 11:49; Admin Dose 7 UNIT; Start 02/07/19 at 09:30 Norepinephrine 250 ml @ 1.875 mls/ hr TITRATE IV Last administered on 02/07/19 10:47; Admin Dose 3.75 MLS/HR; Start 02/07/19 at 10:30 Bismuth Subsalicylate (Pepto-Bismol) 30 ml QID PO Last administered on 02/08/19 16:57; Admin Dose 30 ML; Start 02/07/19 at 17:00 Hydrocortisone (Solu-Cortef) 50 mg Q8 IV Last administered on 02/09/19 06:01; Admin Dose 50 MG; Start 02/07/19 at 22:00 Diagnostic Test (Pha) (Accu-Chek) 1 ea Q1H XX Last administered on 02/09/19 01:00; Admin Dose 1 EA; Start 02/08/19 at 09:00 Insulin Human Regular 100 unit/ Sodium Chloride 100 ml @ 0 mls/hr PER PROTOCOL IV Last administered on 02/08/19 15:43; Admin Dose 6 MLS/HR; Start 02/08/19 at 09:00 Miscellaneous Information (* Miscellaneous Pharmacy Order) Treatment of Hypoglycemia: 1.BG 51... Per protocol XX ; Start 02/08/19 at 09:00 Dextrose (D50w Syringe) 25 ml Q15M PRN IV .DECREASED GLUCOSE; Start 02/08/19 at 09:00 Dextrose (D50w Syringe) 50 ml Q15M PRN IV .DECREASED GLUCOSE; Start 02/08/19 at 09:00 Senna (Senokot) 2 tab BID PO Last administered on 02/09/19at 08:29; Admin Dose 2 TAB; Start 02/08/19 at 10:00 Methimazole (Tapazole) 30 mg BID PO Last administered on 02/09/19at 08:30; Admin Dose 30 MG; Start 02/08/19 at 13:30 DAVID BURNHAM MD Feb 09, 2019 13:06
[2019-02-09] MEDS: SOD CHLORIDE 0.9% 1,000 ML IV SCH (13:51)
--- NOTE | 2019-02-09 14:09 | PN ---
Date/Time of Note Date/Time of Note DATE: 02/09/19 TIME: 14:07 Assessment/Plan VTE Prophylaxis Risk score (from Ns)>0 risk: 14 SCD applied (from Ns): Yes Pharmacological prophylaxis: NA/contraindicated Pharm contraindication: low risk/ambulating Lines/Catheters IV Catheter Type (from Nrs): Peripheral IV Urinary Cath still in place: No Assessment/Plan Assessment/Plan 59 yo man history of HTN, hypothyroid presents with fatigue, hypotension, hyponatremia #Fatigue #Hypotension - IV fluid rehydration - He does report burning dysuria. May have UTI. UA and urine culture ordered but looks like it may not have been sent. - Consulted Dr. Alvarado - Now weaned off pressors #Hyponatremia - Concerning for new adrenal insufficiency - Very hypovolemic on admission probably due to very poor appetite and fatigue. - Given IV fluids, patient taking lots of PO, rising appropriately #Hyperkalemia - May be related to adrenal insufficiencys - Resolved #Hyperthyroid - Free T4 is lower than last admission - Patient was restarted on methimazole prior to this admission, may have had poor reaction to it. Switched to PTU per Dr. Alvarado's advice. However haven't been able to get PTU, now switched back to methimazole #Dyslipidemia - Continue simvastatin. #Diabetes - Currently very hyperglycemic due to stress dose steroids. - Insulin gtt started. Contact: Son (Sami speaking), Lucio Whitaker [phone] DVT: SCDs GI: PPI Result Diagram: 02/09/190 02/09/19 044 Subjective 24 Hr Interval Summary Free Text/Dictation No acute overnight events. Exam/Review of Systems Exam Vitals Vital Signs Date Temp Pulse Resp B/P (MAP) Pulse Ox O2 O2 Flow FiO2 Time Delivery Rate 02/09/19 83 128/83 100 13:00 (98) 02/09/19 97.8 Room Air 12:00 02/07/19 16 18:00 02/06/19 2.0 20:00 Intake and Output 02/08/19 02/08/19 02/09/19 1515:00 23:00 07:00 IntakeIntake Total 1112 ml 928.0 ml 930.5 ml OutputOutput Total 1200 ml 0 ml 575 ml BalanceBalance -88 ml 928.0 ml 355.5 ml Exam Gen: Frail appearing man sitting up in bed eating. Eyes: Miotic pupils bilaterally. No icterus. HEENT: Moist mucous membranes, clear oropharynx Neck: No lymphadenopathy. Slightly enlarged boggy thyroid, slightly pulsatile. Card: Regular rate and rhythm, no murmurs Pulm: Clear to auscultation bilaterally Abd: Soft, nontender. No hepatosplenomegaly. Normoactive bowel sounds. Ext: No cyanosis/clubbing/edema Skin: warm dry. Results Results 24hrs Laboratory Tests Test 02/08/19 14:51 02/08/19 15:48 02/08/19 16:52 02/08/19 17:54 Bedside Glucose 227 H 181 118 102 Test 02/08/19 18:52 02/08/19 20:21 02/08/19 21:01 02/08/19 22:49 Bedside Glucose 90 89 87 80 Test 02/09/19 00:52 02/09/19 01:55 02/09/19 03:03 02/09/19 04:40 Bedside Glucose 68 L 69 L 93 White Blood Count 7.1 Red Blood Count 3.43 L Hemoglobin 8.2 L Hematocrit 26.2 L Mean Corpuscular Volume 76.4 L Mean Corpuscular 23.9 L Hemoglobin Mean Corpuscular 31.3 L Hemoglobin Concent Red Cell Distribution 19.7 H Width Platelet Count 157 Mean Platelet Volume 8.4 Immature Granulocytes % 1.600 H Neutrophils % 79.5 H Lymphocytes % 10.1 L Monocytes % 8.7 Eosinophils % 0.0 Basophils % 0.1 Nucleated Red Blood 0.0 Cells % Immature Granulocytes # 0.110 H Neutrophils # 5.6 Lymphocytes # 0.7 L Monocytes # 0.6 Eosinophils # 0.0 Basophils # 0.0 Nucleated Red Blood 0.0 Cells # Sodium Level 137 Potassium Level 3.8 Chloride Level 106 Carbon Dioxide Level 24 Anion Gap 7 Blood Urea Nitrogen 31 H Creatinine 1.50 H Est Glomerular Filtrat 48 L Rate mL/min Glucose Level 98 # Calcium Level 8.9 Phosphorus Level 4.5 Magnesium Level 2.1 Test 02/09/19 04:44 02/09/19 06:06 02/09/19 08:19 02/09/19 09:58 Bedside Glucose 99 127 143 144 Test 02/09/19 11:45 02/09/19 13:55 Bedside Glucose 172 150 Medications Medication Current Medications Sodium Chloride 1,000 ml @ 80 mls/hr [id number] IV Last administered on 02/09/19 13:51; Admin Dose 80 MLS/HR; Start 02/06/19 at 14:55 IV Flush (NS 3 ml) 3 ml PER PROTOCOL IV ; Start 02/06/19 at 15:00 Ondansetron HCl (Zofran Inj) 4 mg Q6H PRN IV NAUSEA/VOMITING Last administered on 02/08/19at 12:59; Admin Dose 4 MG; Start 02/06/19 at 15:00 Acetaminophen (Tylenol Tab) 650 mg Q6H PRN PO .PAIN 1-3 OR TEMP; Start 02/06/19 at 15:00 Atorvastatin Calcium (Lipitor) 10 mg DAILY@21 PO Last administered on 02/08/19at 20:46; Admin Dose 10 MG; Start 02/06/19 at 21:00 Miscellaneous Information 1 ea NOTE XX ; Start 02/06/19 at 16:00 Glucose (Glutose) 15 gm Q15M PRN PO DECREASED GLUCOSE; Start 02/06/19 at 16:00 Glucose (Glutose) 22.5 gm Q15M PRN PO DECREASED GLUCOSE; Start 02/06/19 at 16:00 Dextrose (D50w Syringe) 25 ml Q15M PRN IV DECREASED GLUCOSE; Start 02/06/19 at 16:00 Dextrose (D50w Syringe) 50 ml Q15M PRN IV DECREASED GLUCOSE; Start 02/06/19 at 16:00 Glucagon (Glucagen) 1 mg Q15M PRN IM DECREASED GLUCOSE; Start 02/06/19 at 16:00 Glucose (Glutose) 15 gm Q15M PRN BUCCAL DECREASED GLUCOSE; Start 02/06/19 at 16:00 Pantoprazole (Protonix Tab) 40 mg BID@0600,1800 PO Last administered on 02/09/19at 06:01; Admin Dose 40 MG; Start 02/07/19 at 06:00 Amoxicillin (Amoxicillin) 1,000 mg BID PO Last administered on 02/09/19 08:29; Admin Dose 1,000 MG; Start 02/06/19 at 21:00; Stop 02/16/19 at 20:59 Clarithromycin (Biaxin) 500 mg BID PO Last administered on 02/09/19 08:29; Admin Dose 500 MG; Start 02/06/19 at 21:00; Stop 02/16/19 at 20:59 Insulin Glargine (Lantus) 15 units DAILY@0930 SC Last administered on 02/09/19 08:36; Admin Dose 15 UNITS; Start 02/07/19 at 10:30 Insulin Aspart (Novolog Insulin Pen) 7 unit WITH MEALS SC Last administered on 02/09/19 11:49; Admin Dose 7 UNIT; Start 02/07/19 at 09:30 Norepinephrine 250 ml @ 1.875 mls/ hr TITRATE IV Last administered on 02/07/19 10:47; Admin Dose 3.75 MLS/HR; Start 02/07/19 at 10:30 Bismuth Subsalicylate (Pepto-Bismol) 30 ml QID PO Last administered on 02/08/19 16:57; Admin Dose 30 ML; Start 02/07/19 at 17:00 Hydrocortisone (Solu-Cortef) 50 mg Q8 IV Last administered on 02/09/19 13:51; Admin Dose 50 MG; Start 02/07/19 at 22:00 Diagnostic Test (Pha) (Accu-Chek) 1 ea Q1H XX Last administered on 02/09/19 01:00; Admin Dose 1 EA; Start 02/08/19 at 09:00 Insulin Human Regular 100 unit/ Sodium Chloride 100 ml @ 0 mls/hr PER PROTOCOL IV Last administered on 02/08/19 15:43; Admin Dose 6 MLS/HR; Start 02/08/19 at 09:00 Miscellaneous Information (* Miscellaneous Pharmacy Order) Treatment of Hypogl ycemia: 1.BG 51... Per protocol XX ; Start 02/08/19 at 09:00 Dextrose (D50w Syringe) 25 ml Q15M PRN IV .DECREASED GLUCOSE; Start 02/08/19 at 09:00 Dextrose (D50w Syringe) 50 ml Q15M PRN IV .DECREASED GLUCOSE; Start 02/08/19 at 09:00 Senna (Senokot) 2 tab BID PO Last administered on 02/09/19 08:29; Admin Dose 2 TAB; Start 02/08/19 at 10:00 Methimazole (Tapazole) 30 mg BID PO Last administered on 02/09/19at 08:30; Admin Dose 30 MG; Start 02/08/19 at 13:30 PURVI QUIGLEY MD Feb 09, 2019 14:09
[2019-02-09] MEDS: ATORVASTATIN 10 MG TAB PO SCH (22:16)
[2019-02-10] MEDS: ACCU-CHEK XX SCH (01:30)
[2019-02-10 02:07] VITALS: BP 134/84; PULSE 96; RESP 18
[2019-02-10] MEDS ORDERED: METOCLOPRAMIDE 10 MG INJ IV ONE (06:00)
[2019-02-10] MEDS ORDERED: METOCLOPRAMIDE 10 MG INJ ONE (06:09)
[2019-02-10] MEDS: PANTOPRAZOLE (EC) 40 MG TAB PO SCH ×2 (06:31→17:27)
[2019-02-10] MEDS: HYDROCORTISONE 100 MG INJ IV SCH ×2 (06:31→13:39)
[2019-02-10] MEDS: CLARITHROMYCIN 500 MG TAB PO SCH ×2 (08:16→20:33)
[2019-02-10] MEDS: METHIMAZOLE 5 MG TAB PO SCH ×2 (08:16→20:33)
[2019-02-10] MEDS: SENNA TAB PO SCH ×2 (08:16→20:36)
[2019-02-10] MEDS: AMOXICILLIN 500 MG CAP PO SCH ×2 (08:16→20:33)
[2019-02-10] MEDS: INSULIN ASPART [NOVOLOG] 3 ML PEN SC SCH ×7 (08:18→20:37)
[2019-02-10 08:44] VITALS: BP 128/76; PULSE 91; RESP 19
[2019-02-10] MEDS: BISMUTH SUBSALICYLATE 120 ML BTL PO SCH ×4 (09:32→20:33)
[2019-02-10] MEDS: INSULIN GLARGINE [LANTus] (100 UNITS/ML) SYG SC SCH (09:33)
[2019-02-10 14:13] VITALS: BP 149/68; PULSE 92; RESP 19
--- NOTE | 2019-02-10 17:43 | CONS ---
Assessment/Plan Assessment/Plan Problems: (1) Graves' disease with exophthalmos Status: Chronic Comment: By looking at the blood tests this patient's hyperthyroidism is finally coming under control when he is in a carefully guided environment and receiving his medication. I would continue on the methimazole and we will revisit his I-131 ablation in roughly 2 weeks from now. (2) Dehydration, moderate Status: Acute Comment: Gentleman is still dehydrated and still prerenal. He needs a fluid bolus which I will take care of. A question has been raised about whether or not this could be a manifestation of adrenal insufficiency. My attempt to sort that out was thwarted on the laboratory around the cortisol and blood have been drawn after the patient was placed on hydrocortisone IV. As such and then switch him from IV hydrocortisone over to standard replacement oral hydrocortisone but before that has happened he will have a Cortrosyn stimulation test. If the Cortrosyn stimulation test is normal we will not continue the oral hydrocortisone. (3) Helicobacter pylori stool test positive Status: Chronic Comment: He is on standard anti-H. pylori therapeutics and tolerating this well (4) Diabetes mellitus type 2 in nonobese Status: Chronic Comment: Coming under control nicely Consultation Date/Type/Reason Admit Date/Time Feb 06, 2019 at 14:46 Initial Consult Date 02/06/19 Type of Consult Endocrine Reason for Consultation Long-term Graves' disease with thyrotoxicosis; dehydration with acute kidney injury; question of possible adrenal insufficiency; H. pylori infection Requesting Provider: RODRIGUEZ DOTY Date/Time of Note DATE: 02/10/19 TIME: 17:40 24 HR Interval Summary Free Text/Dictation The patient reports he is feeling much better Constitutional: no complaints (No fevers chills or sweats) Detailed Summary Endocrine: no complaints Exam/Review of Systems Exam Vitals Vital Signs Date Temp Pulse Resp B/P (MAP) Pulse Ox O2 O2 Flow FiO2 Time Delivery Rate 02/10/19 97.7 92 19 149/68 100 14:13 (95) 02/09/19 Room Air 17:30 02/06/19 2.0 20:00 Intake and Output 02/09/19 02/09/19 02/10/19 1515:00 23:00 07:00 IntakeIntake Total 880 ml 160 ml 200 ml OutputOutput Total 750 ml 200 ml BalanceBalance 130 ml -40 ml 200 ml Constitutional: alert, oriented Respiratory: clear to auscultation, normal air movement Cardiovascular: regular rate and rhythm, nl pulses Gastrointestinal: soft, nl liver, spleen, non-tender Results Result Diagram: 02/10/1931 02/10/1931 Results 24hrs Laboratory Tests Test 02/09/19 22:15 02/10/19 01:13 02/10/19 05:31 02/10/19 08:14 Bedside Glucose 259 H 214 173 White Blood Count 7.5 Red Blood Count 3.96 L Hemoglobin 9.5 L Hematocrit 30.9 L Mean Corpuscular Volume 78.0 L Mean Corpuscular 24.0 L Hemoglobin Mean Corpuscular 30.7 L Hemoglobin Concent Red Cell Distribution 20.1 H Width Platelet Count 181 Mean Platelet Volume 8.6 Immature Granulocytes % 1.700 H Neutrophils % 77.3 H Lymphocytes % 10.6 L Monocytes % 10.3 Eosinophils % 0.0 Basophils % 0.1 Nucleated Red Blood 0.0 Cells % Immature Granulocytes # 0.130 H Neutrophils # 5.8 Lymphocytes # 0.8 Monocytes # 0.8 Eosinophils # 0.0 Basophils # 0.0 Nucleated Red Blood 0.0 Cells # Sodium Level 137 Potassium Level 4.1 Chloride Level 104 Carbon Dioxide Level 23 Anion Gap 10 Blood Urea Nitrogen 31 H Creatinine 1.41 H Est Glomerular Filtrat 52 L Rate mL/min Glucose Level 153 Calcium Level 9.3 Test 02/10/19 09:31 02/10/19 12:15 02/10/19 17:26 Bedside Glucose 254 H 233 H 154 Medications Medication Current Medications IV Flush (NS 3 ml) 3 ml PER PROTOCOL IV ; Start 02/06/19 at 15:00 Ondansetron HCl (Zofran Inj) 4 mg Q6H PRN IV NAUSEA/VOMITING Last administered on 02/08/19at 12:59; Admin Dose 4 MG; Start 02/06/19 at 15:00 Acetaminophen (Tylenol Tab) 650 mg Q6H PRN PO .PAIN 1-3 OR TEMP; Start 02/06/19 at 15:00 Atorvastatin Calcium (Lipitor) 10 mg DAILY@21 PO Last administered on 02/09/19at 22:16; Admin Dose 10 MG; Start 02/06/19 at 21:00 Miscellaneous Information 1 ea NOTE XX ; Start 02/06/19 at 16:00 Glucose (Glutose) 15 gm Q15M PRN PO DECREASED GLUCOSE; Start 02/06/19 at 16:00 Glucose (Glutose) 22.5 gm Q15M PRN PO DECREASED GLUCOSE; Start 02/06/19 at 16:00 Dextrose (D50w Syringe) 25 ml Q15M PRN IV DECREASED GLUCOSE; Start 02/06/19 at 16:00 Dextrose (D50w Syringe) 50 ml Q15M PRN IV DECREASED GLUCOSE; Start 02/06/19 at 16:00 Glucagon (Glucagen) 1 mg Q15M PRN IM DECREASED GLUCOSE; Start 02/06/19 at 16:00 Glucose (Glutose) 15 gm Q15M PRN BUCCAL DECREASED GLUCOSE; Start 02/06/19 at 16:00 Pantoprazole (Protonix Tab) 40 mg BID@0600,1800 PO Last administered on 02/10/19 17:27; Admin Dose 40 MG; Start 02/07/19 at 06:00 Amoxicillin (Amoxicillin) 1,000 mg BID PO Last administered on 02/10/19at 08:16; Admin Dose 1,000 MG; Start 02/06/19 at 21:00; Stop 02/16/19 at 20:59 Clarithromycin (Biaxin) 500 mg BID PO Last administered on 02/10/19 08:16; Admin Dose 500 MG; Start 02/06/19 at 21:00; Stop 02/16/19 at 20:59 Insulin Glargine (Lantus) 15 units DAILY@0930 SC Last administered on 02/10/19at 09:33; Admin Dose 15 UNITS; Start 02/07/19 at 10:30 Insulin Aspart (Novolog Insulin Pen) 7 unit WITH MEALS SC Last administered on 02/10/19 17:28; Admin Dose 7 UNIT; Start 02/07/19 at 09:30 Bismuth Subsalicylate (Pepto-Bismol) 30 ml QID PO Last administered on 02/10/19 17:27; Admin Dose 30 ML; Start 02/07/19 at 17:00 Miscellaneous Information (* Miscellaneous Pharmacy Order) Treatment of Hypoglycemia: 1.BG 51... Per protocol XX ; Start 02/08/19 at 09:00 Dextrose (D50w Syringe) 25 ml Q15M PRN IV .DECREASED GLUCOSE; Start 02/08/19 at 09:00 Dextrose (D50w Syringe) 50 ml Q15M PRN IV .DECREASED GLUCOSE; Start 02/08/19 at 09:00 Senna (Senokot) 2 tab BID PO Last administered on 02/10/19at 08:16; Admin Dose 2 TAB; Start 02/08/19 at 10:00 Methimazole (Tapazole) 30 mg BID PO Last administered on 02/10/19at 08:16; Admin Dose 30 MG; Start 02/08/19 at 13:30 Diagnostic Test (Pha) (Accu-Chek) 1 ea 02 XX ; Start 02/10/19 at 02:00 Insulin Aspart (Novolog Insulin Pen) NOVOLOG *MODERATE* ALGORITHM WITH MEALS BEDTIME SC Last administered on 02/10/19at 17:29; Admin Dose 2 UNIT; Start 02/09/19 at 17:35 Hydrocortisone (Cortef) 20 mg QAM PO ; Start 02/11/19 at 09:00; Status UNV Hydrocortisone (Cortef) 10 mg AC DINNER PO ; Start 02/11/19 at 17:35; Status UNV Hydrocortisone (Cortef) 5 mg QHS PO ; Start 02/11/19 at 21:00; Status UNV Cosyntropin (Cortrosyn) 0.25 mg ONCE ONCE IV ; Start 02/11/19 at 05:05; Stop 02/11/19 at 05:06; Status UNV Lactated Ringer's 500 ml @ 500 mls/hr Q1H ONCE IV ; Start 02/10/19 at 18:00; Stop 02/10/19 at 18:59; Status UNV ANA GARCIA MD Feb 10, 2019 17:43
[2019-02-10] MEDS ORDERED: LACTATED RINGER'S 500 ML IV ONE (18:00)
[2019-02-10 20:05] VITALS: BP 146/89; PULSE 93; RESP 20
[2019-02-10] MEDS: ATORVASTATIN 10 MG TAB PO SCH (20:33)
--- NOTE | 2019-02-10 21:39 | PN ---
Date/Time of Note Date/Time of Note DATE: 02/10/19 TIME OF EVALUATION: 14:28 Assessment/Plan VTE Prophylaxis Risk score (from Nsg)>0 risk: 6 SCD applied (from Nsg): Yes Pharmacological prophylaxis: heparin Lines/Catheters IV Catheter Type (from Nrsg): Central Line Central line still needed: Yes Urinary Cath still in place: No Assessment/Plan Assessment/Plan Mr. Whitaker is a [place]o-speaking man with history of hyperthyroidism who presents with hypotension and weakness managed as follows 1. Systemic shock and weakness likely 2/2 #2?: shock resolved, weakness i mproving? -concern for adrenal insufficiency on hydrocortisone 2. Hyperthyroidism : poor control likely contributing to #1 -endo managing, patient on methimazole -Graves disease, also on steroids ? 3. DM: suboptimal control -steroid induced hyperglycemia, managed per endo -required insulin gtt on admission 4. hypochromic anemia : stable 5. CKD : stable 6. +h pylori stool : continue triple abx dispo: patient still very weak and on IV steroids, discuss plan with endo, PT eval Result Diagram: 02/10/1931 02/10/1931 Results 24hrs Laboratory Tests Test 02/09/19 22:15 02/10/19 01:13 02/10/19 05:31 02/10/19 08:14 Bedside Glucose 259 H 214 173 White Blood Count 7.5 Red Blood Count 3.96 L Hemoglobin 9.5 L Hematocrit 30.9 L Mean Corpuscular Volume 78.0 L Mean Corpuscular 24.0 L Hemoglobin Mean Corpuscular 30.7 L Hemoglobin Concent Red Cell Distribution 20.1 H Width Platelet Count 181 Mean Platelet Volume 8.6 Immature Granulocytes % 1.700 H Neutrophils % 77.3 H Lymphocytes % 10.6 L Monocytes % 10.3 Eosinophils % 0.0 Basophils % 0.1 Nucleated Red Blood 0.0 Cells % Immature Granulocytes # 0.130 H Neutrophils # 5.8 Lymphocytes # 0.8 Monocytes # 0.8 Eosinophils # 0.0 Basophils # 0.0 Nucleated Red Blood 0.0 Cells # Sodium Level 137 Potassium Level 4.1 Chloride Level 104 Carbon Dioxide Level 23 Anion Gap 10 Blood Urea Nitrogen 31 H Creatinine 1.41 H Est Glomerular Filtrat 52 L Rate mL/min Glucose Level 153 Calcium Level 9.3 Test 02/10/19 09:31 02/10/19 12:15 02/10/19 17:26 02/10/19 20:29 Bedside Glucose 254 H 233 H 154 154 Subjective 24 Hr Interval Summary Free Text/Dictation no new complaints, lethargic Exam/Review of Systems Exam Vitals Vital Signs Date Temp Pulse Resp B/P (MAP) Pulse Ox O2 O2 Flow FiO2 Time Delivery Rate 02/10/19 98.4 93 20 146/89 99 20:05 (108) 02/09/19 Room Air 17:30 02/06/19 2.0 20:00 Intake and Output 02/09/19 02/09/19 02/10/19 1515:00 23:00 07:00 IntakeIntake Total 880 ml 160 ml 200 ml OutputOutput Total 750 ml 200 ml BalanceBalance 130 ml -40 ml 200 ml Exam Constitutional: alert, oriented, lethargic Head: atraumatic, normocephalic Neck: non-tender, supple, thyromegaly Respiratory: clear to auscultation Cardiovascular: regular rate and rhythm Gastrointestinal: S/ NT / ND / +BS Extremities: no edema, good radial pulses Results Results 24hrs Laboratory Tests Test 02/09/19 22:15 02/10/19 01:13 02/10/19 05:31 02/10/19 08:14 Bedside Glucose 259 H 214 173 White Blood Count 7.5 Red Blood Count 3.96 L Hemoglobin 9.5 L Hematocrit 30.9 L Mean Corpuscular Volume 78.0 L Mean Corpuscular 24.0 L Hemoglobin Mean Corpuscular 30.7 L Hemoglobin Concent Red Cell Distribution 20.1 H Width Platelet Count 181 Mean Platelet Volume 8.6 Immature Granulocytes % 1.700 H Neutrophils % 77.3 H Lymphocytes % 10.6 L Monocytes % 10.3 Eosinophils % 0.0 Basophils % 0.1 Nucleated Red Blood 0.0 Cells % Immature Granulocytes # 0.130 H Neutrophils # 5.8 Lymphocytes # 0.8 Monocytes # 0.8 Eosinophils # 0.0 Basophils # 0.0 Nucleated Red Blood 0.0 Cells # Sodium Level 137 Potassium Level 4.1 Chloride Level 104 Carbon Dioxide Level 23 Anion Gap 10 Blood Urea Nitrogen 31 H Creatinine 1.41 H Est Glomerular Filtrat 52 L Rate mL/min Glucose Level 153 Calcium Level 9.3 Test 02/10/19 09:31 02/10/19 12:15 02/10/19 17:26 02/10/19 20:29 Bedside Glucose 254 H 233 H 154 154 Medications Medication Current Medications IV Flush (NS 3 ml) 3 ml PER PROTOCOL IV ; Start 02/06/19 at 15:00 Ondansetron HCl (Zofran Inj) 4 mg Q6H PRN IV NAUSEA/VOMITING Last administered on 02/08/19 12:59; Admin Dose 4 MG; Start 02/06/19 at 15:00 Acetaminophen (Tylenol Tab) 650 mg Q6H PRN PO .PAIN 1-3 OR TEMP; Start 02/06/19 at 15:00 Atorvastatin Calcium (Lipitor) 10 mg DAILY@21 PO Last administered on 02/10/19 20:33; Admin Dose 10 MG; Start 02/06/19 at 21:00 Miscellaneous Information 1 ea NOTE XX ; Start 02/06/19 at 16:00 Glucose (Glutose) 15 gm Q15M PRN PO DECREASED GLUCOSE; Start 02/06/19 at 16:00 Glucose (Glutose) 22.5 gm Q15M PRN PO DECREASED GLUCOSE; Start 02/06/19 at 16:00 Dextrose (D50w Syringe) 25 ml Q15M PRN IV DECREASED GLUCOSE; Start 02/06/19 at 16:00 Dextrose (D50w Syringe) 50 ml Q15M PRN IV DECREASED GLUCOSE; Start 02/06/19 at 16:00 Glucagon (Glucagen) 1 mg Q15M PRN IM DECREASED GLUCOSE; Start 02/06/19 at 16:00 Glucose (Glutose) 15 gm Q15M PRN BUCCAL DECREASED GLUCOSE; Start 02/06/19 at 16:00 Pantoprazole (Protonix Tab) 40 mg BID@0600,1800 PO Last administered on 02/10/19 17:27; Admin Dose 40 MG; Start 02/07/19 at 06:00 Amoxicillin (Amoxicillin) 1,000 mg BID PO Last administered on 02/10/19 20:33; Admin Dose 1,000 MG; Start 02/06/19 at 21:00; Stop 02/16/19 at 20:59 Clarithromycin (Biaxin) 500 mg BID PO Last administered on 02/10/19 20:33; Admin Dose 500 MG; Start 02/06/19 at 21:00; Stop 02/16/19 at 20:59 Insulin Glargine (Lantus) 15 units DAILY@0930 SC Last administered on 02/10/19 09:33; Admin Dose 15 UNITS; Start 02/07/19 at 10:30 Insulin Aspart (Novolog Insulin Pen) 7 unit WITH MEALS SC Last administered on 02/10/19 17:28; Admin Dose 7 UNIT; Start 02/07/19 at 09:30 Bismuth Subsalicylate (Pepto-Bismol) 30 ml QID PO Last administered on 02/10/19 20:33; Admin Dose 30 ML; Start 02/07/19 at 17:00 Miscellaneous Information (* Miscellaneous Pharmacy Order) Treatment of Hypoglycemia: 1.BG 51... Per protocol XX ; Start 02/08/19 at 09:00 Dextrose (D50w Syringe) 25 ml Q15M PRN IV .DECREASED GLUCOSE; Start 02/08/19 at 09:00 Dextrose (D50w Syringe) 50 ml Q15M PRN IV .DECREASED GLUCOSE; Start 02/08/19 at 09:00 Senna (Senokot) 2 tab BID PO Last administered on 02/10/19 08:16; Admin Dose 2 TAB; Start 02/08/19 at 10:00 Methimazole (Tapazole) 30 mg BID PO Last administered on 02/10/19 20:33; Admin Dose 30 MG; Start 02/08/19 at 13:30 Diagnostic Test (Pha) (Accu-Chek) 1 ea 02 XX ; Start 02/10/19 at 02:00 Insulin Aspart (Novolog Insulin Pen) NOVOLOG *MODERATE* ALGORITHM WITH MEALS BEDTIME SC Last administered on 02/10/19 17:29; Admin Dose 2 UNIT; Start 02/09/19 at 17:35 Hydrocortisone (Cortef) 20 mg QAM PO ; Start 02/11/19 at 09:00 Hydrocortisone (Cortef) 10 mg AC DINNER PO ; Start 02/11/19 at 17:35 Hydrocortisone (Cortef) 5 mg QHS PO ; Start 02/11/19 at 21:00 Cosyntropin (Cortrosyn) 0.25 mg ONCE ONCE IV ; Start 02/11/19 at 05:05; Stop 02/11/19 at 05:06 YOLI ZAMORANO Feb 10, 2019 21:38
[2019-02-11] MEDS: ACCU-CHEK XX SCH (02:00)
[2019-02-11 02:27] VITALS: BP 108/61; PULSE 94; RESP 18
[2019-02-11] MEDS ORDERED: COSYNTROPIN 0.25 MG INJ IV ONE (05:05)
[2019-02-11] MEDS: PANTOPRAZOLE (EC) 40 MG TAB PO SCH ×2 (05:18→17:50)
[2019-02-11 08:00] VITALS: BP 151/72; PULSE 100; RESP 20
[2019-02-11] MEDS: INSULIN ASPART [NOVOLOG] 3 ML PEN SC SCH ×7 (08:15→22:44)
[2019-02-11] MEDS: HEPARIN 5,000 UNIT/1 ML VIAL SC SCH ×2 (08:16→22:43)
[2019-02-11] MEDS: INSULIN GLARGINE [LANTus] (100 UNITS/ML) SYG SC SCH (08:17)
[2019-02-11] MEDS: AMOXICILLIN 500 MG CAP PO SCH ×2 (08:18→22:28)
[2019-02-11] MEDS: BISMUTH SUBSALICYLATE 120 ML BTL PO SCH ×4 (08:18→22:29)
[2019-02-11] MEDS: CLARITHROMYCIN 500 MG TAB PO SCH ×2 (08:18→22:28)
[2019-02-11] MEDS: SENNA TAB PO SCH ×2 (08:18→22:28)
[2019-02-11] MEDS: METHIMAZOLE 5 MG TAB PO SCH ×2 (08:18→22:29)
[2019-02-11] MEDS ORDERED: POTASSIUM CHLORIDE (SR) 20 MEQ TAB PO STA (08:59)
[2019-02-11] MEDS ORDERED: HYDROCORTISONE 20 MG TAB PO SCH (09:00)
--- NOTE | 2019-02-11 09:07 | CONS ---
Assessment/Plan Assessment/Plan Problems: (1) Graves' disease with exophthalmos Status: Chronic Comment: Continue to improve with administration of the methimazole. We will do this for another week or so and then a week after that were going to try and proceed with radioactive iodine ablation. Please note that the patient is on steroids at this time which was started on our emergency room as part of a se psis protocol. I do not believe that this patient has adrenal insufficiency and have not believe that. As such I am going to stop the steroids and see how he does (2) Helicobacter pylori stool test positive Status: Chronic Comment: On treatment and improving nicely symptomatically (3) Diabetes mellitus type 2 in nonobese Status: Chronic Comment: Improving now that we are stopping the steroids (4) Dehydration, moderate Status: Acute Comment: He has had a marked response to fluid hydration. He still a little bit dehydrated but all at the primary care team work with this. In addition this is brought out hypomagnesemia and hypokalemia will correct that Consultation Date/Type/Reason Admit Date/Time Feb 06, 2019 at 14:46 Initial Consult Date 02/06/19 Type of Consult Endocrine Reason for Consultation Graves' disease with persistent thyrotoxicosis; H. pylori positivity now treated; anorexia improving; Requesting Provider: RODRIGUEZ DOTY Date/Time of Note DATE: 02/11/19 TIME: 09:04 24 HR Interval Summary Free Text/Dictation Patient reports he is now able to eat a full meal. Does complain of some left leg weakness during this admission. Detailed Summary Endocrine: other (Still with some symptoms of thyrotoxicosis) Exam/Review of Systems Exam Vitals Vital Signs Date Temp Pulse Resp B/P (MAP) Pulse Ox O2 O2 Flow FiO2 Time Delivery Rate 02/11/19 98.6 100 20 151/72 94 08:00 (98) 02/09/19 Room Air 17:30 Intake and Output 02/10/19 02/10/19 02/11/19 1515:00 23:00 07:00 IntakeIntake Total 720 ml 240 ml 1240 ml OutputOutput Total 350 ml 600 ml BalanceBalance 370 ml -360 ml 1240 ml Constitutional: alert, oriented Eyes: other Respiratory: clear to auscultation (Modest exophthalmos), normal air movement Cardiovascular: regular rate and rhythm, nl pulses Gastrointestinal: soft, nl liver, spleen, non-tender Results Result Diagram: 02/11/19 0513 02/11/19 0513 Results 24hrs Laboratory Tests Test 02/10/19 09:31 02/10/19 12:15 02/10/19 17:26 02/10/19 20:29 Bedside Glucose 254 H 233 H 154 154 Test 02/11/19 05:13 02/11/19 05:42 02/11/19 06:07 02/11/19 08:11 White Blood Count 7.3 Red Blood Count 3.77 L Hemoglobin 9.3 L Hematocrit 29.6 L Mean Corpuscular Volume 78.5 L Mean Corpuscular 24.7 L Hemoglobin Mean Corpuscular 31.4 L Hemoglobin Concent Red Cell Distribution 20.4 H Width Platelet Count 226 # Mean Platelet Volume 9.1 Immature Granulocytes % 1.600 H Neutrophils % 71.9 Lymphocytes % 13.1 L Monocytes % 13.2 H Eosinophils % 0.1 Basophils % 0.1 Nucleated Red Blood 0.0 Cells % Immature Granulocytes # 0.120 H Neutrophils # 5.3 Lymphocytes # 1.0 Monocytes # 1.0 H Eosinophils # 0.0 Basophils # 0.0 Nucleated Red Blood 0.0 Cells # Sodium Level 137 Potassium Level 3.2 L Chloride Level 101 Carbon Dioxide Level 22 Anion Gap 14 H Blood Urea Nitrogen 25 H Creatinine 1.13 Est Glomerular Filtrat > 60 Rate mL/min Glucose Level 257 #H Calcium Level 9.0 Phosphorus Level 4.1 Magnesium Level 1.4 L Random Cortisol 26.6 29.7 30.3 Bedside Glucose 220 Medications Medication Current Medications IV Flush (NS 3 ml) 3 ml PER PROTOCOL IV ; Start 02/06/19 at 15:00 Ondansetron HCl (Zofran Inj) 4 mg Q6H PRN IV NAUSEA/VOMITING Last administered on 02/08/19at 12:59; Admin Dose 4 MG; Start 02/06/19 at 15:00 Acetaminophen (Tylenol Tab) 650 mg Q6H PRN PO .PAIN 1-3 OR TEMP; Start 02/06/19 at 15:00 Atorvastatin Calcium (Lipitor) 10 mg DAILY@21 PO Last administered on 02/10/19at 20:33; Admin Dose 10 MG; Start 02/06/19 at 21:00 Miscellaneous Information 1 ea NOTE XX ; Start 02/06/19 at 16:00 Glucose (Glutose) 15 gm Q15M PRN PO DECREASED GLUCOSE; Start 02/06/19 at 16:00 Glucose (Glutose) 22.5 gm Q15M PRN PO DECREASED GLUCOSE; Start 02/06/19 at 16:00 Dextrose (D50w Syringe) 25 ml Q15M PRN IV DECREASED GLUCOSE; Start 02/06/19 at 16:00 Dextrose (D50w Syringe) 50 ml Q15M PRN IV DECREASED GLUCOSE; Start 02/06/19 at 16:00 Glucagon (Glucagen) 1 mg Q15M PRN IM DECREASED GLUCOSE; Start 02/06/19 at 16:00 Glucose (Glutose) 15 gm Q15M PRN BUCCAL DECREASED GLUCOSE; Start 02/06/19 at 16:00 Pantoprazole (Protonix Tab) 40 mg BID@0600,1800 PO Last administered on 02/11/19at 05:18; Admin Dose 40 MG; Start 02/07/19 at 06:00 Amoxicillin (Amoxicillin) 1,000 mg BID PO Last administered on 02/11/19at 08:18; Admin Dose 1,000 MG; Start 02/06/19 at 21:00; Stop 02/16/19 at 20:59 Clarithromycin (Biaxin) 500 mg BID PO Last administered on 02/11/19at 08:18; Admin Dose 500 MG; Start 02/06/19 at 21:00; Stop 02/16/19 at 20:59 Insulin Glargine (Lantus) 15 units DAILY@0930 SC Last administered on 02/11/19at 08:17; Admin Dose 15 UNITS; Start 02/07/19 at 10:30 Insulin Aspart (Novolog Insulin Pen) 7 unit WITH MEALS SC Last administered on 02/11/19at 08:15; Admin Dose 7 UNIT; Start 02/07/19 at 09:30 Bismuth Subsalicylate (Pepto-Bismol) 30 ml QID PO Last administered on 02/11/19 08:18; Admin Dose 30 ML; Start 02/07/19 at 17:00 Miscellaneous Information (* Miscellaneous Pharmacy Order) Treatment of Hypoglycemia: 1.BG 51... Per protocol XX ; Start 02/08/19 at 09:00 Dextrose (D50w Syringe) 25 ml Q15M PRN IV .DECREASED GLUCOSE; Start 02/08/19 at 09:00 Dextrose (D50w Syringe) 50 ml Q15M PRN IV .DECREASED GLUCOSE; Start 02/08/19 at 09:00 Senna (Senokot) 2 tab BID PO Last administered on 02/11/19 08:18; Admin Dose 2 TAB; Start 02/08/19 at 10:00 Methimazole (Tapazole) 30 mg BID PO Last administered on 02/11/19 08:18; Admin Dose 30 MG; Start 02/08/19 at 13:30 Diagnostic Test (Pha) (Accu-Chek) 1 ea 02 XX ; Start 02/10/19 at 02:00 Insulin Aspart (Novolog Insulin Pen) NOVOLOG *MODERATE* ALGORITHM WITH MEALS BEDTIME SC Last administered on 02/11/19 08:16; Admin Dose 4 UNIT; Start 02/09/19 at 17:35 Hydrocortisone (Cortef) 20 mg QAM PO Last administered on 02/11/19at 08:18; Admin Dose 20 MG; Start 02/11/19 at 09:00 Hydrocortisone (Cortef) 10 mg AC DINNER PO ; Start 02/11/19 at 17:35 Hydrocortisone (Cortef) 5 mg QHS PO ; Start 02/11/19 at 21:00 Heparin Sodium (Porcine) (Heparin (5000 Units/1ml)) 5,000 unit BID SC Last administered on 02/11/19 08:16; Admin Dose 5,000 UNIT; Start 02/11/19 at 09:00 Magnesium Sulfate 100 ml @ 25 mls/hr ONCE ONCE IVPB ; Start 02/11/19 at 09:00; Stop 02/11/19 at 12:59; Status UNV Potassium Chloride (Klor-Con 20) 40 meq ONCE STAT PO ; Start 02/11/19 at 08:59; Stop 02/11/19 at 09:00; Status UNV Potassium Chloride 100 ml @ 50 mls/hr Q2H IVPB ; Start 02/11/19 at 09:00; Stop 02/11/19 at 12:59; Status UNV ANA GARCIA MD Feb 11, 2019 09:07
[2019-02-11] MEDS ORDERED: MAGNESIUM SULFATE 4 GM/100 ML 100 ML IVPB ONE (10:30)
[2019-02-11] MEDS ORDERED: CLAR500T PO (12:44)
[2019-02-11] MEDS ORDERED: LANT3I SC (12:44)
[2019-02-11] MEDS ORDERED: AMOX500C2 PO (12:44)
[2019-02-11] MEDS ORDERED: METH10TA5 PO (12:44)
[2019-02-11] MEDS ORDERED: NOVO3I SC (12:44)
[2019-02-11] MEDS ORDERED: SENN-120 PO (12:44)
--- NOTE | 2019-02-11 12:46 | PDOCDIS ---
Discharge Instructions CONDITION [id number] Patient Condition: [id number] Stable ACTIVITY: [id number] Activity Restrictions: [id number] Slowly Increase Activity Rest between Activity FOLLOW UP/APPOINTMENTS Follow-up Plan You have to make sure you take your medications as prescribed Followup with Dr. Alvarado in the next week. he's planning to do a radioiodine ablation for you in the next 2 weeks. YOLI ZAMORANO Feb 11, 2019 12:46
--- NOTE | 2019-02-11 13:45 | PN ---
Date/Time of Note Date/Time of Note DATE: 02/11/19 TIME: 13:42 Assessment/Plan VTE Prophylaxis Risk score (from Nsg)>0 risk: 6 SCD applied (from Nsg): Yes Pharmacological prophylaxis: heparin Lines/Catheters IV Catheter Type (from Nrsg): Central Line Central line still needed: No Urinary Cath still in place: No Assessment/Plan Hospital Course Mr. Whitaker is a Papo-speaking man with history of hyperthyroidism who presents with hypotension and weakness managed as follows 1. Systemic shock and weakness likely 2/2 #2?: shock resolved, weakness improving? -patient is still quite weak 2. Hyperthyroidism : poor control likely contributing to #1 -endo managing, patient on methimazole -Graves disease -planned for radioactive ablation in 2 weeks 3. DM: control is improving 4. hypochromic anemia : stable 5. CKD : stable 6. +h pylori stool : continue triple abx dispo: patient still very weak, will need HH with nursing PT, plan to reevaluate tomorrow and hopefully he will be better ready for d/c to home then, if not will need to consider short term SNF. Result Diagram: 02/11/19 0513 02/11/19 0513 Results 24hrs Laboratory Tests Test 02/10/19 17:26 02/10/19 20:29 02/11/19 05:13 02/11/19 05:42 Bedside Glucose 154 154 White Blood Count 7.3 Red Blood Count 3.77 L Hemoglobin 9.3 L Hematocrit 29.6 L Mean Corpuscular Volume 78.5 L Mean Corpuscular 24.7 L Hemoglobin Mean Corpuscular 31.4 L Hemoglobin Concent Red Cell Distribution 20.4 H Width Platelet Count 226 # Mean Platelet Volume 9.1 Immature Granulocytes % 1.600 H Neutrophils % 71.9 Lymphocytes % 13.1 L Monocytes % 13.2 H Eosinophils % 0.1 Basophils % 0.1 Nucleated Red Blood 0.0 Cells % Immature Granulocytes # 0.120 H Neutrophils # 5.3 Lymphocytes # 1.0 Monocytes # 1.0 H Eosinophils # 0.0 Basophils # 0.0 Nucleated Red Blood 0.0 Cells # Sodium Level 137 Potassium Level 3.2 L Chloride Level 101 Carbon Dioxide Level 22 Anion Gap 14 H Blood Urea Nitrogen 25 H Creatinine 1.13 Est Glomerular Filtrat > 60 Rate mL/min Glucose Level 257 #H Calcium Level 9.0 Phosphorus Level 4.1 Magnesium Level 1.4 L Random Cortisol 26.6 29.7 Test 02/11/19 06:07 02/11/19 08:11 02/11/19 12:11 Random Cortisol 30.3 Bedside Glucose 220 285 H Subjective 24 Hr Interval Summary Free Text/Dictation debility, still feels weak Exam/Review of Systems Exam Vitals Vital Signs Date Temp Pulse Resp B/P (MAP) Pulse Ox O2 O2 Flow FiO2 Time Delivery Rate 02/11/19 98.6 100 20 151/72 94 08:00 (98) 02/09/19 Room Air 17:30 Intake and Output 02/10/19 02/10/19 02/11/19 1515:00 23:00 07:00 IntakeIntake Total 720 ml 240 ml 1240 ml OutputOutput Total 350 ml 600 ml BalanceBalance 370 ml -360 ml 1240 ml Constitutional: alert, oriented, other (lethargic ) Head: normocephalic Eyes: PERRL Respiratory: diminished breath sounds Cardiovascular: regular rate and rhythm; No murmurs/extra sounds Gastrointestinal: soft, non-tender, bowel sounds Extremities: edema (isabella ankles, non pitting ) Results Results 24hrs Laboratory Tests Test 02/10/19 17:26 02/10/19 20:29 02/11/19 05:13 02/11/19 05:42 Bedside Glucose 154 154 White Blood Count 7.3 Red Blood Count 3.77 L Hemoglobin 9.3 L Hematocrit 29.6 L Mean Corpuscular Volume 78.5 L Mean Corpuscular 24.7 L Hemoglobin Mean Corpuscular 31.4 L Hemoglobin Concent Red Cell Distribution 20.4 H Width Platelet Count 226 # Mean Platelet Volume 9.1 Immature Granulocytes % 1.600 H Neutrophils % 71.9 Lymphocytes % 13.1 L Monocytes % 13.2 H Eosinophils % 0.1 Basophils % 0.1 Nucleated Red Blood 0.0 Cells % Immature Granulocytes # 0.120 H Neutrophils # 5.3 Lymphocytes # 1.0 Monocytes # 1.0 H Eosinophils # 0.0 Basophils # 0.0 Nucleated Red Blood 0.0 Cells # Sodium Level 137 Potassium Level 3.2 L Chloride Level 101 Carbon Dioxide Level 22 Anion Gap 14 H Blood Urea Nitrogen 25 H Creatinine 1.13 Est Glomerular Filtrat > 60 Rate mL/min Glucose Level 257 #H Calcium Level 9.0 Phosphorus Level 4.1 Magnesium Level 1.4 L Random Cortisol 26.6 29.7 Test 02/11/19 06:07 02/11/19 08:11 02/11/19 12:11 Random Cortisol 30.3 Bedside Glucose 220 285 H Medications Medication Current Medications IV Flush (NS 3 ml) 3 ml PER PROTOCOL IV ; Start 02/06/19 at 15:00 Ondansetron HCl (Zofran Inj) 4 mg Q6H PRN IV NAUSEA/VOMITING Last administered on 02/08/19at 12:59; Admin Dose 4 MG; Start 02/06/19 at 15:00 Acetaminophen (Tylenol Tab) 650 mg Q6H PRN PO .PAIN 1-3 OR TEMP; Start 02/06/19 at 15:00 Atorvastatin Calcium (Lipitor) 10 mg DAILY@21 PO Last administered on 02/10/19at 20:33; Admin Dose 10 MG; Start 02/06/19 at 21:00 Miscellaneous Information 1 ea NOTE XX ; Start 02/06/19 at 16:00 Glucose (Glutose) 15 gm Q15M PRN PO DECREASED GLUCOSE; Start 02/06/19 at 16:00 Glucose (Glutose) 22.5 gm Q15M PRN PO DECREASED GLUCOSE; Start 02/06/19 at 16:00 Dextrose (D50w Syringe) 25 ml Q15M PRN IV DECREASED GLUCOSE; Start 02/06/19 at 16:00 Dextrose (D50w Syringe) 50 ml Q15M PRN IV DECREASED GLUCOSE; Start 02/06/19 at 16:00 Glucagon (Glucagen) 1 mg Q15M PRN IM DECREASED GLUCOSE; Start 02/06/19 at 16:00 Glucose (Glutose) 15 gm Q15M PRN BUCCAL DECREASED GLUCOSE; Start 02/06/19 at 16:00 Pantoprazole (Protonix Tab) 40 mg BID@0600,1800 PO Last administered on 02/11/19at 05:18; Admin Dose 40 MG; Start 02/07/19 at 06:00 Amoxicillin (Amoxicillin) 1,000 mg BID PO Last administered on 02/11/19at 08:18; Admin Dose 1,000 MG; Start 02/06/19 at 21:00; Stop 02/16/19 at 20:59 Clarithromycin (Biaxin) 500 mg BID PO Last administered on 02/11/19 08:18; Admin Dose 500 MG; Start 02/06/19 at 21:00; Stop 02/16/19 at 20:59 Insulin Glargine (Lantus) 15 units DAILY@0930 SC Last administered on 02/11/19 08:17; Admin Dose 15 UNITS; Start 02/07/19 at 10:30 Insulin Aspart (Novolog Insulin Pen) 7 unit WITH MEALS SC Last administered on 02/11/19 12:13; Admin Dose 7 UNIT; Start 02/07/19 at 09:30 Bismuth Subsalicylate (Pepto-Bismol) 30 ml QID PO Last administered on 02/11/19 12:15; Admin Dose 30 ML; Start 02/07/19 at 17:00 Miscellaneous Information (* Miscellaneous Pharmacy Order) Treatment of Hypoglycemia: 1.BG 51... Per protocol XX ; Start 02/08/19 at 09:00 Dextrose (D50w Syringe) 25 ml Q15M PRN IV .DECREASED GLUCOSE; Start 02/08/19 at 09:00 Dextrose (D50w Syringe) 50 ml Q15M PRN IV .DECREASED GLUCOSE; Start 02/08/19 at 09:00 Senna (Senokot) 2 tab BID PO Last administered on 02/11/19 08:18; Admin Dose 2 TAB; Start 02/08/19 at 10:00 Methimazole (Tapazole) 30 mg BID PO Last administered on 02/11/19 08:18; Admin Dose 30 MG; Start 02/08/19 at 13:30 Diagnostic Test (Pha) (Accu-Chek) 1 ea 02 XX ; Start 02/10/19 at 02:00 Insulin Aspart (Novolog Insulin Pen) NOVOLOG *MODERATE* ALGORITHM WITH MEALS BEDTIME SC Last administered on 02/11/19 12:14; Admin Dose 8 UNIT; Start 02/09/19 at 17:35 Heparin Sodium (Porcine) (Heparin (5000 Units/1ml)) 5,000 unit BID SC Last administered on 02/11/19 08:16; Admin Dose 5,000 UNIT; Start 02/11/19 at 09:00 Magnesium Sulfate 100 ml @ 25 mls/hr ONCE ONCE IVPB Last administered on 4/9/19at 11:19; Admin Dose 25 MLS/HR; Start 02/11/19 at 10:30; Stop 02/11/19 at 14:29 Potassium Chloride 100 ml @ 50 mls/hr Q2H IVPB ; Start 02/11/19 at 10:30; Stop 02/11/19 at 14:29 YOLI ZAMORANO Feb 11, 2019 13:45
[2019-02-11 14:00] VITALS: BP 110/64; PULSE 100; RESP 18
[2019-02-11] MEDS: POTASSIUM CHLORIDE 100 ML IVPB SCH ×2 (16:55→22:44)
[2019-02-11] MEDS ORDERED: HYDROCORTISONE 5 MG TAB PO SCH ×2 (17:35→21:00)
[2019-02-11 20:00] VITALS: BP 113/64; PULSE 114; RESP 18
[2019-02-11] MEDS: ATORVASTATIN 10 MG TAB PO SCH (22:28)
[2019-02-12 02:00] VITALS: BP 120/70; PULSE 113; RESP 18
[2019-02-12] MEDS: ACCU-CHEK XX SCH (02:00)
[2019-02-12] MEDS: PANTOPRAZOLE (EC) 40 MG TAB PO SCH ×2 (05:39→18:17)
[2019-02-12 05:42] VITALS: PULSE 111
[2019-02-12 08:00] VITALS: BP 119/71; PULSE 69; RESP 18
[2019-02-12] MEDS: INSULIN ASPART [NOVOLOG] 3 ML PEN SC SCH ×7 (08:00→21:00)
[2019-02-12] MEDS ORDERED: morphine 2 MG INJ IV STA (08:45)
[2019-02-12] MEDS: SENNA TAB PO SCH ×2 (09:10→21:56)
[2019-02-12] MEDS: CLARITHROMYCIN 500 MG TAB PO SCH ×2 (09:11→21:57)
[2019-02-12] MEDS: METHIMAZOLE 5 MG TAB PO SCH ×2 (09:11→21:57)
[2019-02-12] MEDS: AMOXICILLIN 500 MG CAP PO SCH ×2 (09:12→21:57)
[2019-02-12] MEDS: HEPARIN 5,000 UNIT/1 ML VIAL SC SCH ×2 (09:12→22:03)
[2019-02-12] MEDS: BISMUTH SUBSALICYLATE 120 ML BTL PO SCH ×4 (09:14→23:24)
[2019-02-12] MEDS: INSULIN GLARGINE [LANTus] (100 UNITS/ML) SYG SC SCH (09:25)
[2019-02-12] MEDS ORDERED: POTASSIUM CHLORIDE (SR) 20 MEQ TAB PO STA (13:07)
--- NOTE | 2019-02-12 13:11 | CONS ---
Assessment/Plan Assessment/Plan Problems: (1) Graves' disease with exophthalmos Status: Chronic Comment: Improving nicely with the usage of antithyroid drug therapy. When I see him in the office (which will have to be done outside of his insurance since his insurance refuses to sign the letter of agreement or even discuss it at all, and therefore I will see him as a courtesy to the hospitalist team.) I will stop the methimazole 1 week later he will received radioactive iodine ablation, 1 week after that he will go back onto the methimazole and take it for an additional 8 weeks. Then we will let his body balance out until he ultimately becomes hypothyroid from the treatment. (2) Helicobacter pylori stool test positive Status: Chronic Comment: Please finish entire H. pylori treatment Consultation Date/Type/Reason Admit Date/Time Feb 06, 2019 at 14:46 Initial Consult Date 02/06/19 Type of Consult Endocrine Reason for Consultation Graves' disease with thyrotoxicosis Requesting Provider: RODRIGUEZ DOTY Date/Time of Note DATE: 02/12/19 TIME: 13:09 24 HR Interval Summary Free Text/Dictation Patient is improving subjectively Exam/Review of Systems Exam Vitals Vital Signs Date Temp Pulse Resp B/P (MAP) Pulse Ox O2 O2 Flow FiO2 Time Delivery Rate 02/12/19 99.8 69 18 119/71 96 08:00 (87) 02/09/19 Room Air 17:30 Intake and Output 02/11/19 02/11/19 02/12/19 1414:59 22:59 06:59 IntakeIntake Total 425 ml 975 ml 100 ml OutputOutput Total 400 ml BalanceBalance 425 ml 575 ml 100 ml Exam No change in examination Results Result Diagram: 02/12/19 0939 02/12/19 0635 Results 24hrs Laboratory Tests Test 02/11/19 17:24 02/11/19 22:42 02/12/19 02:58 02/12/19 06:35 Bedside Glucose 203 191 88 White Blood Count 6.1 Red Blood Count 2.99 #L Hemoglobin 7.4 #L Hematocrit 23.2 #L Mean Corpuscular 77.6 L Volume Mean Corpuscular 24.7 L Hemoglobin Mean Corpuscular 31.9 L Hemoglobin Concent Red Cell 20.5 H Distribution Width Platelet Count 126 #L Mean Platelet Volume 8.9 Immature 1.800 H Granulocytes % Neutrophils % 64.6 Lymphocytes % 17.5 Monocytes % 15.4 H Eosinophils % 0.5 Basophils % 0.2 Nucleated Red Blood 0.0 Cells % Immature 0.110 H Granulocytes # Neutrophils # 3.9 Lymphocytes # 1.1 Monocytes # 0.9 Eosinophils # 0.0 Basophils # 0.0 Nucleated Red Blood 0.0 Cells # Sodium Level 133 L Potassium Level 3.5 Chloride Level 101 Carbon Dioxide Level 27 Anion Gap 5 # Blood Urea Nitrogen 19 Creatinine 0.85 Est Glomerular > 60 Filtrat Rate mL/min Glucose Level 110 # Calcium Level 8.2 L Random Cortisol 18.6 Test 02/12/19 08:01 02/12/19 09:39 02/12/19 12:20 Bedside Glucose 139 196 White Blood Count 7.2 Red Blood Count 3.39 L Hemoglobin 8.3 L Hematocrit 26.8 L Mean Corpuscular 79.1 L Volume Mean Corpuscular 24.5 L Hemoglobin Mean Corpuscular 31.0 L Hemoglobin Concent Red Cell 21.1 H Distribution Width Platelet Count 138 L Mean Platelet Volume 8.8 Immature 1.700 H Granulocytes % Neutrophils % 68.2 Lymphocytes % 14.5 L Monocytes % 15.2 H Eosinophils % 0.3 Basophils % 0.1 Nucleated Red Blood 0.0 Cells % Immature 0.120 H Granulocytes # Neutrophils # 4.9 Lymphocytes # 1.0 Monocytes # 1.1 H Eosinophils # 0.0 Basophils # 0.0 Nucleated Red Blood 0.0 Cells # Medications Medication Current Medications IV Flush (NS 3 ml) 3 ml PER PROTOCOL IV ; Start 02/06/19 at 15:00 Ondansetron HCl (Zofran Inj) 4 mg Q6H PRN IV NAUSEA/VOMITING Last administered on 02/08/19at 12:59; Admin Dose 4 MG; Start 02/06/19 at 15:00 Acetaminophen (Tylenol Tab) 650 mg Q6H PRN PO .PAIN 1-3 OR TEMP; Start 02/06/19 at 15:00 Atorvastatin Calcium (Lipitor) 10 mg DAILY@21 PO Last administered on 02/11/19at 22:28; Admin Dose 10 MG; Start 02/06/19 at 21:00 Miscellaneous Information 1 ea NOTE XX ; Start 02/06/19 at 16:00 Glucose (Glutose) 15 gm Q15M PRN PO DECREASED GLUCOSE; Start 02/06/19 at 16:00 Glucose (Glutose) 22.5 gm Q15M PRN PO DECREASED GLUCOSE; Start 02/06/19 at 16:00 Dextrose (D50w Syringe) 25 ml Q15M PRN IV DECREASED GLUCOSE; Start 02/06/19 at 16:00 Dextrose (D50w Syringe) 50 ml Q15M PRN IV DECREASED GLUCOSE; Start 02/06/19 at 16:00 Glucagon (Glucagen) 1 mg Q15M PRN IM DECREASED GLUCOSE; Start 02/06/19 at 16:00 Glucose (Glutose) 15 gm Q15M PRN BUCCAL DECREASED GLUCOSE; Start 02/06/19 at 16:00 Pantoprazole (Protonix Tab) 40 mg BID@0600,1800 PO Last administered on 02/12/19at 05:39; Admin Dose 40 MG; Start 02/07/19 at 06:00 Amoxicillin (Amoxicillin) 1,000 mg BID PO Last administered on 02/12/19at 09:12; Admin Dose 1,000 MG; Start 02/06/19 at 21:00; Stop 02/16/19 at 20:59 Clarithromycin (Biaxin) 500 mg BID PO Last administered on 02/12/19at 09:11; Admin Dose 500 MG; Start 02/06/19 at 21:00; Stop 02/16/19 at 20:59 Insulin Glargine (Lantus) 15 units DAILY@0930 SC Last administered on 02/12/19at 09:25; Admin Dose 15 UNITS; Start 02/07/19 at 10:30 Insulin Aspart (Novolog Insulin Pen) 7 unit WITH MEALS SC Last administered on 02/12/19at 13:01; Admin Dose 7 UNIT; Start 02/07/19 at 09:30 Bismuth Subsalicylate (Pepto-Bismol) 30 ml QID PO Last administered on 02/12/19at 13:02; Admin Dose 30 ML; Start 02/07/19 at 17:00 Miscellaneous Information (* Miscellaneous Pharmacy Order) Treatment of Hypoglycemia: 1.BG 51... Per protocol XX ; Start 02/08/19 at 09:00 Dextrose (D50w Syringe) 25 ml Q15M PRN IV .DECREASED GLUCOSE; Start 02/08/19 at 09:00 Dextrose (D50w Syringe) 50 ml Q15M PRN IV .DECREASED GLUCOSE; Start 02/08/19 at 09:00 Senna (Senokot) 2 tab BID PO Last administered on 02/12/19at 09:10; Admin Dose 2 TAB; Start 02/08/19 at 10:00 Methimazole (Tapazole) 30 mg BID PO Last administered on 02/12/19at 09:11; Admin Dose 30 MG; Start 02/08/19 at 13:30 Diagnostic Test (Pha) (Accu-Chek) 1 02 XX ; Start 02/10/19 at 02:00 Insulin Aspart (Novolog Insulin Pen) NOVOLOG *MODERATE* ALGORITHM WITH MEALS BEDTIME SC Last administered on 02/12/19 13:02; Admin Dose 4 UNIT; Start 02/09/19 at 17:35 Heparin Sodium (Porcine) (Heparin (5000 Units/1ml)) 5,000 unit BID SC Last administered on 02/12/19at 09:12; Admin Dose 5,000 UNIT; Start 02/11/19 at 09:00 Acetaminophen/ Hydrocodone Bitart ([place] (5/325)) 1 tab Q6H PRN PO MODERATE PAIN LEVEL 4-6; Start 02/12/19 at 09:00 Potassium Chloride (Klor-Con 20) 40 meq ONCE STAT PO ; Start 02/12/19 at 13:07; Stop 02/12/19 at 13:08; Status ANA MAYA MD Feb 12, 2019 13:11
--- NOTE | 2019-02-12 13:44 | DS ---
DATE OF ADMISSION: 02/06/2019 DATE OF DISCHARGE: 02/12/2019 FINAL DIAGNOSES: 1. Systemic shock and weakness likely secondary to #2: Resolved. 2. Hypothyroidism with poor outpatient control: Status post methimazole b.i.d. Plan for radioactiv e ablation in 2 weeks as outpatient. 3. Diabetes mellitus with improved control. 4. Hypochromic anemia, stable. 5. Chronic kidney disease, stable. 6. Positive Helicobacter pylori on triple antibiotic treatment. CONSULTS ON THE CASE: Dr. Arturo Alvarado for endocrinology as well as Dr. Myles Fay. INTERVENTIONS: The patient did have a chest x-ray, but basically the main thing was screening of his TSH that showed poor control of his hyperthyroidism and elevation in his free T4 levels. SHORT HOSPITAL COURSE: Full details are available in the chart for review. In summary, this patient had presented to the emergency room with severe lethargy, was found to be hypotensive and in shock a nd actually with severe hyperglycemia and was initially admitted to the intensive care unit for press or support as well as insulin drip. He did well and was later transitioned to the floor. Because we know that he does have a history of hyperthyroidism, a TSH was checked that showed that the patient had poor control. Apparently, there has been some confusion about medications and the patient was no t taking his medications as he was supposed to and so endocrinology was concerned and did report that the patient required close monitoring of his medications. From a prior visit, it was found that his H. pylori was positive and as such, the patient was started on triple antibiotic therapy. At this t lul, he is doing much better. He is still somewhat weak, but is being assessed by physical therapy. Their recommendation was that the patient can be discharged home to the care of the family with kevin murray of a bedside commode and frontal walker to assist him as well as home health physical therapy. At this time, I have assessed the patient and remained stable for discharge. However, he had compla ined about some scrotal swelling and tenderness there. On my exam, the scrotum is just very mildly e dematous. It does not seem overly tender to exam. However to put the patient's mind at ease, I will order a scrotal ultrasound and if it is normal, I will go ahead and discharge the patient. If abnor mal, we will have to proceed based on the findings. Other than that, he is overall stable. I did of syed the family senior care facility placement for rehabilitation prior to transition home but the y did decline. DISCHARGE MEDICATIONS: 1. Amoxicillin 1 g b.i.d. for 5 more days. 2. Clarithromycin 500 b.i.d. for 5 days. 3. NovoLog 7 units with meals. 4. Lantus 15 units daily. 5. Senna 2 tabs p.o. b.i.d. 6. Lisinopril 2.5 daily. 7. Methimazole 30 b.i.d. 8. Protonix 40 before breakfast. 9. Propranolol 80 two times a day. 10. Simvastatin 20 mg at bedtime. DISCHARGE CONDITION: Stable, pending evaluation of a scrotal ultrasound. ACTIVITY: As tolerated due to debility with home health for physical therapy and ambulation with fro ntal walker. Time spent on discharge coordination so far has been more than 45 minutes. Dictated By: YOLI ZAMORANO MD BA/NTS Conf#: [id number] DID#: [id number] CC: ARTURO ALVARADO MD; PURVI QUIGLEY MD;*EndCC*
[2019-02-12 14:00] VITALS: BP 113/64; PULSE 123; RESP 18
[2019-02-12 20:10] VITALS: BP 134/76; PULSE 121; RESP 20
[2019-02-12] MEDS: ATORVASTATIN 10 MG TAB PO SCH (21:57)
[2019-02-13 02:00] VITALS: BP 114/59; PULSE 113; RESP 18
[2019-02-13] MEDS: ACCU-CHEK XX SCH (02:00)
[2019-02-13] MEDS: PANTOPRAZOLE (EC) 40 MG TAB PO SCH ×2 (06:07→17:48)
[2019-02-13] MEDS: INSULIN ASPART [NOVOLOG] 3 ML PEN SC SCH ×7 (08:10→21:00)
[2019-02-13] MEDS: ACETAMINOPHEN 325 MG TAB PO PRN (08:11)
[2019-02-13 08:14] VITALS: BP 117/62; PULSE 114; RESP 18
[2019-02-13] MEDS: BISMUTH SUBSALICYLATE 120 ML BTL PO SCH ×4 (09:00→22:25)
[2019-02-13] MEDS ORDERED: MAGNESIUM SULFATE 6 GM in DEXTROSE 5% 100 ML IVPB ONE (09:00)
[2019-02-13] MEDS: AMOXICILLIN 500 MG CAP PO SCH ×2 (09:39→22:26)
[2019-02-13] MEDS: SENNA TAB PO SCH ×2 (09:39→22:26)
[2019-02-13] MEDS: METHIMAZOLE 5 MG TAB PO SCH ×2 (09:39→23:45)
[2019-02-13] MEDS: CLARITHROMYCIN 500 MG TAB PO SCH ×2 (09:39→22:26)
[2019-02-13] MEDS: HEPARIN 5,000 UNIT/1 ML VIAL SC SCH ×2 (09:41→22:32)
[2019-02-13] MEDS: INSULIN GLARGINE [LANTus] (100 UNITS/ML) SYG SC SCH (09:41)
--- NOTE | 2019-02-13 10:51 | PN ---
Date/Time of Note Date/Time of Note DATE: 02/13/19 TIME: 10:49 Assessment/Plan VTE Prophylaxis Risk score (from Nsg)>0 risk: 3 SCD applied (from Nsg): Yes Pharmacological prophylaxis: heparin Lines/Catheters IV Catheter Type (from Nrsg): Saline Lock Urinary Cath still in place: No Assessment/Plan Hospital Course Subjective : continues to report isabella LE pain in thighs and legs, nurses have noticed blisterous lesions on the top of his toes, also developed high grade fever overnight Objective : General: A&O x3, answering questions appropriately, looks lethargic HEENT: NC/ AT. PERRL. EOM intact Neck: supple CVS: S1, S2, RRR. no murmurs. no pain on chest wall palpation Lungs: CTA b/l. no wheezing or rhonchi Abd: soft, nontender, +BS Ext: moving all extremities, shiny / edematous legs bilaterally : .mild scrotal edema and patient still reporting tenderness, doesn't seem too tender on exam however skin: blisterous hematoma like lesion approx between 1/2 and 1 inch wide on L big toe and Big toe and 2nd toe on the R assessment and plan: Mr. Galindo is a [place]o-speaking man with history of hyperthyroidism who presents with hypotension and weakness managed as follows 1. Systemic shock and weakness likely 2/2 #2?: shock resolved, weakness improving? -patient is still quite weak -see #8 as well 2. Hyperthyroidism : poor control likely contributing to #1 -endo managing, patient on methimazole -Graves disease -planned for radioactive ablation in 2 weeks -based on new symptoms, will check thyroid function again 3. DM: control is improving -will increase Lantus slightly 4. hypochromic anemia : stable -iron deficiency confirmed in january, repeat iron levels 5. RIGO : resolved 6. +h pylori stool : continue triple abx 7. Anasarca, with mild fluid overload: -echo from November, preserved EF -source unclear, will assess albumin levels 8. SIRS versus Sepsis -recurrent versus new -?source -f/u blood, urine cultures and CXR -empiric abx ? -influenza screen -LE swelling, DVT ? -check CK levels -work patient up for autoimmune disease 9. abnormal lesions on toes, not painful -arterial USS -consider Podiatry consult dispo: has developed new fever, also c/o leg pain and persistent weakness, needs further workup Result Diagram: 02/13/19 0535 02/13/19 0535 Results 24hrs Laboratory Tests Test 02/12/19 12:20 02/12/19 17:07 02/12/19 21:55 02/13/19 05:35 Bedside Glucose 196 90 158 White Blood Count 5.6 # Red Blood Count 3.19 L Hemoglobin 7.8 L Hematocrit 24.8 L Mean Corpuscular 77.7 L Volume Mean Corpuscular 24.5 L Hemoglobin Mean Corpuscular 31.5 L Hemoglobin Concent Red Cell 20.7 H Distribution Width Platelet Count 109 #L Mean Platelet Volume 8.9 Immature 1.100 H Granulocytes % Neutrophils % 58.3 Lymphocytes % 21.1 Monocytes % 19.0 H Eosinophils % 0.5 Basophils % 0.0 Nucleated Red Blood 0.0 Cells % Immature 0.060 H Granulocytes # Neutrophils # 3.3 Lymphocytes # 1.2 Monocytes # 1.1 H Eosinophils # 0.0 Basophils # 0.0 Nucleated Red Blood 0.0 Cells # Sodium Level 129 L Potassium Level 3.9 Chloride Level 93 L Carbon Dioxide Level 28 Anion Gap 8 Blood Urea Nitrogen 17 Creatinine 0.77 Est Glomerular > 60 Filtrat Rate mL/min Glucose Level 218 # Calcium Level 8.2 L Phosphorus Level 3.0 Magnesium Level 1.0 L Test 02/13/19 08:04 Bedside Glucose 245 H Exam/Review of Systems Exam Vitals Vital Signs Date Temp Pulse Resp B/P (MAP) Pulse Ox O2 O2 Flow FiO2 Time Delivery Rate 02/13/19 99.1 08:56 02/13/19 114 18 117/62 98 08:14 (80) 02/13/19 Room Air 02:00 Intake and Output 02/12/19 02/12/19 02/13/19 1515:00 23:00 07:00 IntakeIntake Total 700 ml 490 ml 250 ml OutputOutput Total 400 ml 300 ml 500 ml BalanceBalance 300 ml 190 ml -250 ml Results Results 24hrs Laboratory Tests Test 02/12/19 12:20 02/12/19 17:07 02/12/19 21:55 02/13/19 05:35 Bedside Glucose 196 90 158 White Blood Count 5.6 # Red Blood Count 3.19 L Hemoglobin 7.8 L Hematocrit 24.8 L Mean Corpuscular 77.7 L Volume Mean Corpuscular 24.5 L Hemoglobin Mean Corpuscular 31.5 L Hemoglobin Concent Red Cell 20.7 H Distribution Width Platelet Count 109 #L Mean Platelet Volume 8.9 Immature 1.100 H Granulocytes % Neutrophils % 58.3 Lymphocytes % 21.1 Monocytes % 19.0 H Eosinophils % 0.5 Basophils % 0.0 Nucleated Red Blood 0.0 Cells % Immature 0.060 H Granulocytes # Neutrophils # 3.3 Lymphocytes # 1.2 Monocytes # 1.1 H Eosinophils # 0.0 Basophils # 0.0 Nucleated Red Blood 0.0 Cells # Sodium Level 129 L Potassium Level 3.9 Chloride Level 93 L Carbon Dioxide Level 28 Anion Gap 8 Blood Urea Nitrogen 17 Creatinine 0.77 Est Glomerular > 60 Filtrat Rate mL/min Glucose Level 218 # Calcium Level 8.2 L Phosphorus Level 3.0 Magnesium Level 1.0 L Test 02/13/19 08:04 Bedside Glucose 245 H Imaging Imaging Echocardiogram Report Patient Name: JOSE GALINDO Gender: Male Date: 1960 Study Date: 24-Nov-2018 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 Physician: CHARITY MATA Quality: Adequate Procedures: Transthoracic echocardiogram with complete 2D, M-Mode, and doppler examination. Indications: Abnormal EKG . pr depression. 2D/M Mode Doppler Measurement Value Normal Ranges Measurement Value Normal Ranges LVIDd 2D 3.5 3.5 - 5.6 cm AV Peak Kevin 1.2 m/sec LVIDs 2D 2.2 2.1 - 4.1 cm AV Peak PG 6.0 mmHg LVPWd 2D 0.9 0.6 - 1.1 cm LVOT Peak Kevin 0.7 m/sec IVSd 2D 0.8 0.6 - 1.1 cm LVOT Peak PG 2.0 mmHg AoR Diam 2D 2.9 2.0 - 3.7 cm MV E Peak Kevin 0.9 m/sec LA/Ao 2D 1 0 - 1 MV A Peak Kevin 0.4 m/sec LA Dimen 2D 3.9 2.3 - 4.0 cm MV E/A 2.4 MV Decel Time 120 msec Lat E` Kevin 0.2 m/sec Lateral E/E` 5.4 Med E` Kevin 0.1 m/sec MV E/A 2.4 PV Peak Kevin 1.0 m/sec PV Peak PG 4.0 mmHg Findings Left Ventricle: Normal left ventricular systolic function. Normal left ventricular cavity size. Normal left ventricular wall thickness. Ejection fraction is visually estimated at 60 %. Tissue Doppler/Mitral Doppler indices are within normal limits. Right Ventricle: Normal right ventricular size. Normal right ventricular systolic function. Left Atrium: The left atrium is normal in size. Right Atrium: The right atrium is normal in size. Mitral Valve: Normal appearance of the mitral valve. No mitral valve regurgitation is seen. Aortic Valve: No aortic regurgitation. Tricuspid Valve: Normal appearance of the tricuspid valve. Unable to obtain RVSP due to minimal presence of tricuspid regurgitation. No evidence of tricuspid regurgitation. Pericardium: Normal pericardium with no significant pericardial effusion. Aorta: Normal aortic root. IVC: Normal size and normal respiratory collapse consistent with normal right atrial pressure. Conclusions Normal left ventricular systolic function. Normal left ventricular cavity size. Normal left ventricular wall thickness. Ejection fraction is visually estimated at 60 %. Tissue Doppler/Mitral Doppler indices are within normal limits. Normal appearance of the tricuspid valve. Unable to obtain RVSP due to minimal presence of tricuspid regurgitation. No evidence of tricuspid regurgitation. Electronically Signed By: Jairo Piper 25-Nov-2018 09:54:07 -0800 Patient Name: JOSE GALINDO Study Date: 24-Nov-2018 [id number] Medications Medication Current Medications IV Flush (NS 3 ml) 3 ml PER PROTOCOL IV ; Start 02/06/19 at 15:00 Ondansetron HCl (Zofran Inj) 4 mg Q6H PRN IV NAUSEA/VOMITING Last administered on 02/08/19at 12:59; Admin Dose 4 MG; Start 02/06/19 at 15:00 Acetaminophen (Tylenol Tab) 650 mg Q6H PRN PO .PAIN 1-3 OR TEMP Last administ ered on 02/13/19at 08:11; Admin Dose 650 MG; Start 02/06/19 at 15:00 Atorvastatin Calcium (Lipitor) 10 mg DAILY@21 PO Last administered on 02/12/19at 21:57; Admin Dose 10 MG; Start 02/06/19 at 21:00 Miscellaneous Information 1 ea NOTE XX ; Start 02/06/19 at 16:00 Glucose (Glutose) 15 gm Q15M PRN PO DECREASED GLUCOSE; Start 02/06/19 at 16:00 Glucose (Glutose) 22.5 gm Q15M PRN PO DECREASED GLUCOSE; Start 02/06/19 at 16:00 Dextrose (D50w Syringe) 25 ml Q15M PRN IV DECREASED GLUCOSE; Start 02/06/19 at 1 6:00 Dextrose (D50w Syringe) 50 ml Q15M PRN IV DECREASED GLUCOSE; Start 02/06/19 at 16:00 Glucagon (Glucagen) 1 mg Q15M PRN IM DECREASED GLUCOSE; Start 02/06/19 at 16:00 Glucose (Glutose) 15 gm Q15M PRN BUCCAL DECREASED GLUCOSE; Start 02/06/19 at 16:00 Pantoprazole (Protonix Tab) 40 mg BID@0600,1800 PO Last administered on 02/13/19at 06:07; Admin Dose 40 MG; Start 02/07/19 at 06:00 Amoxicillin (Amoxicillin) 1,000 mg BID PO Last administered on 02/13/19at 09:39; Admin Dose 1,000 MG; Start 02/06/19 at 21:00; Stop 02/16/19 at 20:59 Clarithromycin (Biaxin) 500 mg BID PO Last administered on 02/13/19at 09:39; Admin Dose 500 MG; Start 02/06/19 at 21:00; Stop 02/16/19 at 20:59 Insulin Glargine (Lantus) 15 units DAILY@0930 SC Last administered on 02/13/19at 09:41; Admin Dose 15 UNITS; Start 02/07/19 at 10:30 Insulin Aspart (Novolog Insulin Pen) 7 unit WITH MEALS SC Last administered on 02/13/19at 08:10; Admin Dose 7 UNIT; Start 02/07/19 at 09:30 Bismuth Subsalicylate (Pepto-Bismol) 30 ml QID PO Last administered on 02/12/19at 13:02; Admin Dose 30 ML; Start 02/07/19 at 17:00 Miscellaneous Information (* Miscellaneous Pharmacy Order) Treatment of Hypoglycemia: 1.BG 51... Per protocol XX ; Start 02/08/19 at 09:00 Dextrose (D50w Syringe) 25 ml Q15M PRN IV .DECREASED GLUCOSE; Start 02/08/19 at 09:00 Dextrose (D50w Syringe) 50 ml Q15M PRN IV .DECREASED GLUCOSE; Start 02/08/19 at 09:00 Senna (Senokot) 2 tab BID PO Last administered on 02/13/19at 09:39; Admin Dose 2 TAB; Start 02/08/19 at 10:00 Methimazole (Tapazole) 30 mg BID PO Last administered on 02/13/19at 09:39; Admin Dose 30 MG; Start 02/08/19 at 13:30 Diagnostic Test (Pha) (Accu-Chek) 1 ea 02 XX ; Start 02/10/19 at 02:00 Insulin Aspart (Novolog Insulin Pen) NOVOLOG *MODERATE* ALGORITHM WITH MEALS BEDTIME SC Last administered on 02/13/19at 08:11; Admin Dose 6 UNIT; Start 02/09/19 at 17:35 Heparin Sodium (Porcine) (Heparin (5000 Units/1ml)) 5,000 unit BID SC Last administered on 02/13/19at 09:41; Admin Dose 5,000 UNIT; Start 02/11/19 at 09:00 Acetaminophen/ Hydrocodone Bitart ([place] (5/325)) 1 tab Q6H PRN PO MODERATE PAIN LEVEL 4-6; Start 02/12/19 at 09:00 Magnesium Sulfate 6 gm/Dextrose 112 ml @ 18.667 mls/ hr ONCE ONCE IVPB ; Start 02/13/19 at 09:00; Stop 02/13/19 at 14:59 YOLI ZAMORANO Feb 13, 2019 10:51
--- NOTE | 2019-02-13 13:00 | CONS ---
Assessment/Plan Assessment/Plan Problems: (1) Graves' disease with exophthalmos Status: Chronic Comment: She is tolerating the methimazole without complications. We will repeat the labs in the morning for free T4 and free T3 to verify were continue to move in the right direction. Ultimately plans for I-131 ablation in the near term future. Please note that the fevers and shaking chills are not due to th yroid issues. (2) Helicobacter pylori stool test positive Status: Chronic Comment: Tinea with treatment. I do not believe that the fevers and chills are related to this (3) Diabetes mellitus type 2 in nonobese Status: Chronic Comment: Adequate control (4) Fever Status: Acute Comment: This patient has fevers and chills and has had sweats and also weight loss. The weight loss had been attributed to to the thyroid but we need to keep an open mind that something else might be going on here. QuantiFERON gold and multiple other tests are negative. We may be in the position of needing to do a fever of unknown origin workup which would include imaging studies and especially a bone marrow biopsy. I will defer this off to the primary team Consultation Date/Type/Reason Admit Date/Time Feb 06, 2019 at 14:46 Initial Consult Date 02/06/19 Type of Consult Endocrine Reason for Consultation Graves' disease with thyrotoxicosis Requesting Provider: RODRIGUEZ DOTY Date/Time of Note DATE: 02/13/19 TIME: 12:57 24 HR Interval Summary Free Text/Dictation Patient is again starting to have fevers with shaking chills and drenching sweats at night. Temperature measured to 102.2. Exam/Review of Systems Exam Vitals Vital Signs Date Temp Pulse Resp B/P (MAP) Pulse Ox O2 O2 Flow FiO2 Time Delivery Rate 02/13/19 99.1 09:30 02/13/19 114 18 117/62 98 08:14 (80) 02/13/19 Room Air 02:00 Intake and Output 02/12/19 02/12/19 02/13/19 1515:00 23:00 07:00 IntakeIntake Total 700 ml 490 ml 250 ml OutputOutput Total 400 ml 300 ml 500 ml BalanceBalance 300 ml 190 ml -250 ml Constitutional: alert, oriented Cardiovascular: regular rate and rhythm, nl pulses Gastrointestinal: soft, nl liver, spleen, non-tender Results Result Diagram: 02/13/19 0535 02/13/19 0535 Results 24hrs Laboratory Tests Test 02/12/19 17:07 02/12/19 21:55 02/13/19 05:31 02/13/19 05:35 Bedside Glucose 90 158 Iron Level 13 L Total Iron Binding Pending Capacity Percent Iron Pending Saturation Total Bilirubin 0.3 Direct Bilirubin 0.00 Indirect Bilirubin 0.3 Aspartate Amino 78 H Transf (AST/SGOT) Alanine 72 H Aminotransferase (AL T/SGPT) Alkaline Phosphatase 134 H Total Protein 5.6 L Albumin 2.3 L White Blood Count 5.6 # Red Blood Count 3.19 L Hemoglobin 7.8 L Hematocrit 24.8 L Mean Corpuscular 77.7 L Volume Mean Corpuscular 24.5 L Hemoglobin Mean Corpuscular 31.5 L Hemoglobin Concent Red Cell 20.7 H Distribution Width Platelet Count 109 #L Mean Platelet Volume 8.9 Immature 1.100 H Granulocytes % Neutrophils % 58.3 Lymphocytes % 21.1 Monocytes % 19.0 H Eosinophils % 0.5 Basophils % 0.0 Nucleated Red Blood 0.0 Cells % Immature 0.060 H Granulocytes # Neutrophils # 3.3 Lymphocytes # 1.2 Monocytes # 1.1 H Eosinophils # 0.0 Basophils # 0.0 Nucleated Red Blood 0.0 Cells # Sodium Level 129 L Potassium Level 3.9 Chloride Level 93 L Carbon Dioxide Level 28 Anion Gap 8 Blood Urea Nitrogen 17 Creatinine 0.77 Est Glomerular > 60 Filtrat Rate mL/min Glucose Level 218 # Calcium Level 8.2 L Phosphorus Level 3.0 Magnesium Level 1.0 L Test 02/13/19 08:04 02/13/19 11:31 Bedside Glucose 245 H Erythrocyte 70.0 H Sedimentation Rate C-Reactive Protein 4.8 H Medications Medication Current Medications IV Flush (NS 3 ml) 3 ml PER PROTOCOL IV ; Start 02/06/19 at 15:00 Ondansetron HCl (Zofran Inj) 4 mg Q6H PRN IV NAUSEA/VOMITING Last administered on 02/08/19at 12:59; Admin Dose 4 MG; Start 02/06/19 at 15:00 Acetaminophen (Tylenol Tab) 650 mg Q6H PRN PO .PAIN 1-3 OR TEMP Last administered on 02/13/19at 08:11; Admin Dose 650 MG; Start 02/06/19 at 15:00 Atorvastatin Calcium (Lipitor) 10 mg DAILY@21 PO Last administered on 02/12/19at 21:57; Admin Dose 10 MG; Start 02/06/19 at 21:00 Miscellaneous Information 1 ea NOTE XX ; Start 02/06/19 at 16:00 Glucose (Glutose) 15 gm Q15M PRN PO DECREASED GLUCOSE; Start 02/06/19 at 16:00 Glucose (Glutose) 22.5 gm Q15M PRN PO DECREASED GLUCOSE; Start 02/06/19 at 16:00 Dextrose (D50w Syringe) 25 ml Q15M PRN IV DECREASED GLUCOSE; Start 02/06/19 at 16:00 Dextrose (D50w Syringe) 50 ml Q15M PRN IV DECREASED GLUCOSE; Start 02/06/19 at 16:00 Glucagon (Glucagen) 1 mg Q15M PRN IM DECREASED GLUCOSE; Start 02/06/19 at 16:00 Glucose (Glutose) 15 gm Q15M PRN BUCCAL DECREASED GLUCOSE; Start 02/06/19 at 16:00 Pantoprazole (Protonix Tab) 40 mg BID@0600,1800 PO Last administered on 02/13/19 at 06:07; Admin Dose 40 MG; Start 02/07/19 at 06:00 Amoxicillin (Amoxicillin) 1,000 mg BID PO Last administered on 02/13/19at 09:39; Admin Dose 1,000 MG; Start 02/06/19 at 21:00; Stop 02/16/19 at 20:59 Clarithromycin (Biaxin) 500 mg BID PO Last administered on 02/13/19at 09:39; Admin Dose 500 MG; Start 02/06/19 at 21:00; Stop 02/16/19 at 20:59 Insulin Aspart (Novolog Insulin Pen) 7 unit WITH MEALS SC Last administered on 02/13/19at 08:10; Admin Dose 7 UNIT; Start 02/07/19 at 09:30 Bismuth Subsalicylate (Pepto-Bismol) 30 ml QID PO Last administered on 02/12/19at 13:02; Admin Dose 30 ML; Start 02/07/19 at 17:00 Miscellaneous Information (* Miscellaneous Pharmacy Order) Treatment of Hypoglycemia: 1.BG 51... Per protocol XX ; Start 02/08/19 at 09:00 Dextrose (D50w Syringe) 25 ml Q15M PRN IV .DECREASED GLUCOSE; Start 02/08/19 at 09:00 Dextrose (D50w Syringe) 50 ml Q15M PRN IV .DECREASED GLUCOSE; Start 02/08/19 at 09:00 Senna (Senokot) 2 tab BID PO Last administered on 02/13/19at 09:39; Admin Dose 2 TAB; Start 02/08/19 at 10:00 Methimazole (Tapazole) 30 mg BID PO Last administered on 02/13/19 09:39; Admin Dose 30 MG; Start 02/08/19 at 13:30 Diagnostic Test (Pha) (Accu-Chek) 1 ea 02 XX ; Start 02/10/19 at 02:00 Insulin Aspart (Novolog Insulin Pen) NOVOLOG *MODERATE* ALGORITHM WITH MEALS BEDTIME SC Last administered on 02/13/19 08:11; Admin Dose 6 UNIT; Start 02/09/19 at 17:35 Heparin Sodium (Porcine) (Heparin (5000 Units/1ml)) 5,000 unit BID SC Last administered on 02/13/19at 09:41; Admin Dose 5,000 UNIT; Start 02/11/19 at 09:00 Acetaminophen/ Hydrocodone Bitart ([place] (5/325)) 1 tab Q6H PRN PO MODERATE PAIN LEVEL 4-6; Start 02/12/19 at 09:00 Magnesium Sulfate 6 gm/Dextrose 112 ml @ 18.667 mls/ hr ONCE ONCE IVPB Last administered on 02/13/19at 11:08; Admin Dose 18.667 MLS/HR; Start 02/13/19 at 09:00; Stop 02/13/19 at 14:59 Insulin Glargine (Lantus) 20 units DAILY@0930 SC ; Start 02/14/19 at 09:30 Insulin Glargine (Lantus) 5 units ONCE ONCE SC ; Start 02/13/19 at 13:30; Stop 02/13/19 at 13:31 ANA GARCIA MD Feb 13, 2019 13:00
--- NOTE | 2019-02-13 13:07 | RADRPT ---
Vent Rate: 81 bpm RR Interval: 0 msec DE Interval: 164 msec QRS Duration: 84 msec QT Interval: 414 msec QTC Interval: 480 msec P-R-T [place]: 16 - -5 - 60 degrees Normal sinus rhythm Low voltage QRS Nonspecific T wave abnormality Prolonged QT Abnormal ECG Electronically Signed By: Rudy Garrett
[2019-02-13] MEDS ORDERED: INSULIN GLARGINE [LANTus] (100 UNITS/ML) SYG SC ONE (13:30)
[2019-02-13 14:29] VITALS: BP 110/42; PULSE 85; RESP 19
--- NOTE | 2019-02-13 19:09 | CONS ---
Assessment/Plan Assessment/Plan Hospital Course (Demo Recall) 59-year-old male presented to the hospital with fatigue, hypotension and hyponatremia. He is known to have a history of hypertension , Graves' disease and hyperthyroidism and anemia. He also was complaining of testicular pain and underwent scrotal ultrasound and that showed: Enlarged heterogeneous and mildly hypervascular left epididymis suggesting sequelae of epididymitis. This is seen to a lesser degree within the left epididymis. Mild diffuse scrotal edema. No evidence of hydrocele or fluid collection Therefore a urological consultation was requested. The patient complains of pain in both testes. He denies any dysuria, there is no history of hematuria or urinary tract infection. On the exam he has penile edema and bilateral scrotal pain.. He may have left epididymitis as suggested on the ultrasound. He is already on amoxicillin. We will send urine for culture and sensitivity and keep the scrotum elevated on a towel all the time. Consultation Date/Type/Reason Admit Date/Time Feb 06, 2019 at 14:46 Date of Consultation: Feb 13, 2019 Type of Consult Urology Reason for Consultation Abnormal scrotal ultrasound Requesting Provider: YOLI ZAMORANO Date/Time of Note DATE: 02/13/19 TIME: 18:54 Hx of Present Illness 59-year-old male presented to the hospital with fatigue, hypotension and hypon atremia. He is known to have a history of hypertension , Graves' disease and hyperthyroidism and anemia. He also was complaining of testicular pain and underwent scrotal ultrasound and that showed: Enlarged heterogeneous and mildly hypervascular left epididymis suggesting sequelae of epididymitis. This is seen to a lesser degree within the left epididymis. Mild diffuse scrotal edema. No evidence of hydrocele or fluid collection Therefore a urological consultation was requested. The patient complains of pain in both testes. He denies any dysuria, there is no history of hematuria or urinary tract infection. Constitutional: no complaints Eyes: other ( exophthalmos) ENT: no complaints Respiratory: no complaints; No shortness of breath Cardiovascular: no complaints Gastrointestinal: no complaints Genitourinary: other (Bilateral scrotal and testicular pain, penile edema) Musculoskeletal: no complaints Skin: no complaints Neurologic: no complaints Endocrine: no complaints Psychological: no complaints Past Medical History Medical History: diabetes, high cholesterol, hypertension, hyperthyroid Home Meds Active Scripts Insulin Glargine* (Lantus*) 100 Unit/Ml Soln, 15 UNIT SC DAILY, #14 [facility] Insulin Aspart* (Novolog Insulin Pen*) 100 Unit/Ml Soln, 7 UNIT SC WITH MEALS, #7 [facility]IAL [facility] Sennosides* (Senna Lax*) 8.6 Mg Tablet, 2 TAB PO BID, #120 TAB Prov[facility]/11/19 Clarithromycin* (Clarithromycin*) 500 Mg Tablet, 500 MG PO BID for 5 Days, #10 TAB [facility] Amoxicillin* (Amoxicillin*) 500 Mg Cap, 1000 MG PO BID for 5 Days, #10 CAP [facility]19 Methimazole* (Methimazole*) 10 Mg Tablet, 30 MG PO BID, #180 TAB 1 Refill Prov[facility]/11/19 Reported Medications Pantoprazole* (Pantoprazole*) 40 Mg Tablet.dr, 40 MG PO AC BREAKFAST, TAB 02/06/19 Simvastatin* (Zocor*) 20 Mg Tablet, 20 MG PO QHS, #30 TAB 01/16/19 Lisinopril* (Lisinopril*) 2.5 Mg Tablet, 2.5 MG PO DAILY, #30 TAB 01/16/19 Propranolol Hcl* (Propranolol Hcl*) 40 Mg Tablet, 80 MG PO TID, TAB 01/16/19 Discontinued Reported Medications Metformin* (Glucophage*) 500 Mg Tab, 500 MG PO BID, #90 TAB 01/16/19 Methimazole* (Methimazole*) 10 Mg Tablet, 30 MG PO BID, TAB 01/16/19 Medications Current Medications IV Flush (NS 3 ml) 3 ml PER PROTOCOL IV ; Start 02/06/19 at 15:00 Ondansetron HCl (Zofran Inj) 4 mg Q6H PRN IV NAUSEA/VOMITING Last administered on 02/08/19at 12:59; Admin Dose 4 MG; Start 02/06/19 at 15:00 Acetaminophen (Tylenol Tab) 650 mg Q6H PRN PO .PAIN 1-3 OR TEMP Last administered on 02/13/19at 08:11; Admin Dose 650 MG; Start 02/06/19 at 15:00 Atorvastatin Calcium (Lipitor) 10 mg DAILY@21 PO Last administered on 02/12/19at 21:57; Admin Dose 10 MG; Start 02/06/19 at 21:00 Miscellaneous Information 1 ea NOTE XX ; Start 02/06/19 at 16:00 Glucose (Glutose) 15 gm Q15M PRN PO DECREASED GLUCOSE; Start 02/06/19 at 16:00 Glucose (Glutose) 22.5 gm Q15M PRN PO DECREASED GLUCOSE; Start 02/06/19 at 16:00 Dextrose (D50w Syringe) 25 ml Q15M PRN IV DECREASED GLUCOSE; Start 02/06/19 at 16:00 Dextrose (D50w Syringe) 50 ml Q15M PRN IV DECREASED GLUCOSE; Start 02/06/19 at 16:00 Glucagon (Glucagen) 1 mg Q15M PRN IM DECREASED GLUCOSE; Start 02/06/19 at 16:00 Glucose (Glutose) 15 gm Q15M PRN BUCCAL DECREASED GLUCOSE; Start 02/06/19 at 16:00 Pantoprazole (Protonix Tab) 40 mg BID@0600,1800 PO Last administered on 02/13/19 06:07; Admin Dose 40 MG; Start 02/07/19 at 06:00 Amoxicillin (Amoxicillin) 1,000 mg BID PO Last administered on 02/13/19at 09:39; Admin Dose 1,000 MG; Start 02/06/19 at 21:00; Stop 02/16/19 at 20:59 Clarithromycin (Biaxin) 500 mg BID PO Last administered on 02/13/19at 09:39; Admin Dose 500 MG; Start 02/06/19 at 21:00; Stop 02/16/19 at 20:59 Insulin Aspart (Novolog Insulin Pen) 7 unit WITH MEALS SC Last administered on 02/13/19 08:10; Admin Dose 7 UNIT; Start 02/07/19 at 09:30 Bismuth Subsalicylate (Pepto-Bismol) 30 ml QID PO Last administered on 02/12/19at 13:02; Admin Dose 30 ML; Start 02/07/19 at 17:00 Miscellaneous Information (* Miscellaneous Pharmacy Order) Treatment of Hypoglycemia: 1.BG 51... Per protocol XX ; Start 02/08/19 at 09:00 Dextrose (D50w Syringe) 25 ml Q15M PRN IV .DECREASED GLUCOSE; Start 02/08/19 at 09:00 Dextrose (D50w Syringe) 50 ml Q15M PRN IV .DECREASED GLUCOSE; Start 02/08/19 at 09:00 Senna (Senokot) 2 tab BID PO Last administered on 02/13/19at 09:39; Admin Dose 2 TAB; Start 02/08/19 at 10:00 Methimazole (Tapazole) 30 mg BID PO Last administered on 02/13/19at 09:39; Admin Dose 30 MG; Start 02/08/19 at 13:30 Diagnostic Test (Pha) (Accu-Chek) XX ; Start 02/10/19 at 02:00 Insulin Aspart (Novolog Insulin Pen) NOVOLOG *MODERATE* ALGORITHM WITH MEALS BEDTIME SC Last administered on 02/13/19at 08:11; Admin Dose 6 UNIT; Start 02/09/19 at 17:35 Heparin Sodium (Porcine) (Heparin (5000 Units/1ml)) 5,000 unit BID SC Last administered on 02/13/19at 09:41; Admin Dose 5,000 UNIT; Start 02/11/19 at 09:00 Acetaminophen/ Hydrocodone Bitart ([place] (5/325)) 1 tab Q6H PRN PO MODERATE PAIN LEVEL 4-6; Start 02/12/19 at 09:00 Insulin Glargine (Lantus) 20 units DAILY@0930 SC ; Start 02/14/19 at 09:30 Allergies: Coded Allergies: No Known Allergy (Unverified , 02/06/19) Past Surgical History Past Surgical Hx: no surgical history Social History Alcohol Use: sober (x 10 years) Smoking Status: Never smoker Drug Use: none Exam/Review of Systems Exam Vitals Vital Signs Date Temp Pulse Resp B/P (MAP) Pulse Ox O2 O2 Flow FiO2 Time Delivery Rate 02/13/19 99.0 85 19 110/42 99 14:29 (64) 02/13/19 Room Air 02:00 Intake and Output 02/12/19 02/12/19 02/13/19 1515:00 23:00 07:00 IntakeIntake Total 700 ml 490 ml 250 ml OutputOutput Total 400 ml 300 ml 500 ml BalanceBalance 300 ml 190 ml -250 ml Constitutional: alert Psych: no complaints Head: normocephalic Eyes: other (Exophthalmos) Neck: supple Respiratory: normal air movement; No wheezing Cardiovascular: No jugular venous distention (JVD) Gastrointestinal: soft; No mass Genitourinary - Male: other (He has penile edema and both scrotal sides are sensitive and painful.); No CVA tenderness Musculoskeletal: nl extremities to inspection Extremities: No calf tenderness Neurological: nl mental status Results Result Diagram: 02/13/1935 02/13/1935 Results 24hrs Laboratory Tests Test 02/12/19 21:55 02/13/19 05:31 02/13/19 05:35 02/13/19 08:04 Bedside Glucose 158 245 H Iron Level 13 L Total Iron Binding 204 L Capacity Percent Iron 6 L Saturation Total Bilirubin 0.3 Direct Bilirubin 0.00 Indirect Bilirubin 0.3 Aspartate Amino 78 H Transf (AST/SGOT) Alanine 72 H Aminotransferase (AL T/SGPT) Alkaline Phosphatase 134 H Total Protein 5.6 L Albumin 2.3 L White Blood Count 5.6 # Red Blood Count 3.19 L Hemoglobin 7.8 L Hematocrit 24.8 L Mean Corpuscular 77.7 L Volume Mean Corpuscular 24.5 L Hemoglobin Mean Corpuscular 31.5 L Hemoglobin Concent Red Cell 20.7 H Distribution Width Platelet Count 109 #L Mean Platelet Volume 8.9 Immature 1.100 H Granulocytes % Neutrophils % 58.3 Lymphocytes % 21.1 Monocytes % 19.0 H Eosinophils % 0.5 Basophils % 0.0 Nucleated Red Blood 0.0 Cells % Immature 0.060 H Granulocytes # Neutrophils # 3.3 Lymphocytes # 1.2 Monocytes # 1.1 H Eosinophils # 0.0 Basophils # 0.0 Nucleated Red Blood 0.0 Cells # Sodium Level 129 L Potassium Level 3.9 Chloride Level 93 L Carbon Dioxide Level 28 Anion Gap 8 Blood Urea Nitrogen 17 Creatinine 0.77 Est Glomerular > 60 Filtrat Rate mL/min Glucose Level 218 # Calcium Level 8.2 L Phosphorus Level 3.0 Magnesium Level 1.0 L Test 02/13/19 11:31 02/13/19 13:17 02/13/19 13:56 02/13/19 17:46 Erythrocyte 70.0 H Sedimentation Rate C-Reactive Protein 4.8 H Bedside Glucose 119 93 Lactic Acid Level 2.0 Creatine Kinase 20 L Imaging Imaging Scrotal ultrasound: Enlarged heterogeneous and mildly hypervascular left epididymis suggesting sequelae of epididymitis. This is seen to a lesser degree within the left epididymis. Mild diffuse scrotal edema. No evidence of hydrocele or fluid collection. Medications Medication Current Medications IV Flush (NS 3 ml) 3 ml PER PROTOCOL IV ; Start 02/06/19 at 15:00 Ondansetron HCl (Zofran Inj) 4 mg Q6H PRN IV NAUSEA/VOMITING Last administered on 02/08/19at 12:59; Admin Dose 4 MG; Start 02/06/19 at 15:00 Acetaminophen (Tylenol Tab) 650 mg Q6H PRN PO .PAIN 1-3 OR TEMP Last administered on 02/13/19at 08:11; Admin Dose 650 MG; Start 02/06/19 at 15:00 Atorvastatin Calcium (Lipitor) 10 mg DAILY@21 PO Last administered on 02/12/19at 21:57; Admin Dose 10 MG; Start 02/06/19 at 21:00 Miscellaneous Information 1 ea NOTE XX ; Start 02/06/19 at 16:00 Glucose (Glutose) 15 gm Q15M PRN PO DECREASED GLUCOSE; Start 02/06/19 at 16:00 Glucose (Glutose) 22.5 gm Q15M PRN PO DECREASED GLUCOSE; Start 02/06/19 at 16:00 Dextrose (D50w Syringe) 25 ml Q15M PRN IV DECREASED GLUCOSE; Start 02/06/19 at 16:00 Dextrose (D50w Syringe) 50 ml Q15M PRN IV DECREASED GLUCOSE; Start 02/06/19 at 16:00 Glucagon (Glucagen) 1 mg Q15M PRN IM DECREASED GLUCOSE; Start 02/06/19 at 16:00 Glucose (Glutose) 15 gm Q15M PRN BUCCAL DECREASED GLUCOSE; Start 02/06/19 at 16:00 Pantoprazole (Protonix Tab) 40 mg BID@0600,1800 PO Last administered on 02/13/19at 06:07; Admin Dose 40 MG; Start 02/07/19 at 06:00 Amoxicillin (Amoxicillin) 1,000 mg BID PO Last administered on 02/13/19at 09:39; Admin Dose 1,000 MG; Start 02/06/19 at 21:00; Stop 02/16/19 at 20:59 Clarithromycin (Biaxin) 500 mg BID PO Last administered on 02/13/19 09:39; Admin Dose 500 MG; Start 02/06/19 at 21:00; Stop 02/16/19 at 20:59 Insulin Aspart (Novolog Insulin Pen) 7 unit WITH MEALS SC Last administered on 02/13/19 08:10; Admin Dose 7 UNIT; Start 02/07/19 at 09:30 Bismuth Subsalicylate (Pepto-Bismol) 30 ml QID PO Last administered on 02/12/19at 13:02; Admin Dose 30 ML; Start 02/07/19 at 17:00 Miscellaneous Information (* Miscellaneous Pharmacy Order) Treatment of Hypoglycemia: 1.BG 51... Per protocol XX ; Start 02/08/19 at 09:00 Dextrose (D50w Syringe) 25 ml Q15M PRN IV .DECREASED GLUCOSE; Start 02/08/19 at 09:00 Dextrose (D50w Syringe) 50 ml Q15M PRN IV .DECREASED GLUCOSE; Start 02/08/19 at 09:00 Senna (Senokot) 2 tab BID PO Last administered on 02/13/19 09:39; Admin Dose 2 TAB; Start 02/08/19 at 10:00 Methimazole (Tapazole) 30 mg BID PO Last administered on 02/13/19 09:39; Admin Dose 30 MG; Start 02/08/19 at 13:30 Diagnostic Test (Pha) (Accu-Chek) 1 ea 02 XX ; Start 02/10/19 at 02:00 Insulin Aspart (Novolog Insulin Pen) NOVOLOG *MODERATE* ALGORITHM WITH MEALS BEDTIME SC Last administered on 02/13/19 08:11; Admin Dose 6 UNIT; Start 02/09/19 at 17:35 Heparin Sodium (Porcine) (Heparin (5000 Units/1ml)) 5,000 unit BID SC Last administered on 02/13/19 09:41; Admin Dose 5,000 UNIT; Start 02/11/19 at 09:00 Acetaminophen/ Hydrocodone Bitart ([place] (5/325)) 1 tab Q6H PRN PO MODERATE PAIN LEVEL 4-6; Start 02/12/19 at 09:00 Insulin Glargine (Lantus) 20 units DAILY@0930 ND ; Start 02/14/19 at 09:30 YESSICA MANRIQUEZ MD Feb 13, 2019 19:06
[2019-02-13 20:00] VITALS: BP 137/68; RESP 18
[2019-02-13] MEDS: ATORVASTATIN 10 MG TAB PO SCH (22:26)
[2019-02-14 02:00] VITALS: BP 124/72; PULSE 110; RESP 18
[2019-02-14] MEDS: ACCU-CHEK XX SCH (02:00)
[2019-02-14] MEDS: ONDANSETRON 4 MG INJ IV PRN (02:52)
[2019-02-14] MEDS: ACETAMINOPHEN 325 MG TAB PO PRN (02:58)
[2019-02-14] MEDS: PANTOPRAZOLE (EC) 40 MG TAB PO SCH ×2 (05:37→17:35)
[2019-02-14] MEDS: INSULIN ASPART [NOVOLOG] 3 ML PEN SC SCH ×7 (08:00→21:00)
[2019-02-14 08:01] VITALS: BP 111/60; PULSE 97; RESP 17
[2019-02-14] MEDS: METHIMAZOLE 5 MG TAB PO SCH ×2 (08:41→22:41)
[2019-02-14] MEDS: BISMUTH SUBSALICYLATE 120 ML BTL PO SCH ×4 (08:41→21:00)
[2019-02-14] MEDS: CLARITHROMYCIN 500 MG TAB PO SCH ×2 (08:42→22:41)
[2019-02-14] MEDS: SENNA TAB PO SCH ×2 (08:43→22:40)
[2019-02-14] MEDS: HEPARIN 5,000 UNIT/1 ML VIAL SC SCH ×2 (08:47→22:48)
[2019-02-14] MEDS: AMOXICILLIN 500 MG CAP PO SCH ×2 (08:50→22:41)
[2019-02-14] MEDS ORDERED: CEFEPIME 1GM/50 ML (PMX) 50 ML IVPB SCH (09:00)
--- NOTE | 2019-02-14 09:04 | PN ---
Date/Time of Note Date/Time of Note DATE: 02/14/19 TIME: 08:55 Assessment/Plan VTE Prophylaxis Risk score (from Nsg)>0 risk: 5 SCD applied (from Nsg): Yes Pharmacological prophylaxis: heparin Lines/Catheters IV Catheter Type (from Nrsg): Saline Lock Urinary Cath still in place: No Assessment/Plan Hospital Course Subjective : Still having fevers, leg pain is better, c/o pain in throat Objective : General: A&O x3, answering questions appropriately, looks lethargic HEENT: NC/ AT. PERRL. EOM intact, little white bumps on mucosa, tongue is erythematous and shiny Neck: supple CVS: S1, S2, RRR. no murmurs. no pain on chest wall palpation Lungs: CTA b/l. no wheezing or rhonchi Abd: soft, nontender, +BS Ext: moving all extremities, shiny / edematous legs bilaterally : .mild scrotal edema and patient still reporting tenderness, doesn't seem too tender on exam however skin: blisterous hematoma like lesion approx between 1/2 and 1 inch wide on L big toe and Big toe and 2nd toe on the R assessment and plan: Mr. Whitaker is a [place]o-speaking man with history of hyperthyroidism who presents with hypotension and weakness managed as follows 1. Systemic shock and weakness likely 2/2 #2?: shock resolved, weakness improv ing? -patient is still quite weak -see #8 as well 2. Hyperthyroidism : poor control likely contributing to #1 -endo managing, patient on methimazole -Graves disease -planned for radioactive ablation in 2 weeks -based on new symptoms, checked thyroid function again, Repeat T4 showing imp rovement 3. DM: -excellent control 4. hypochromic anemia : stable -Still iron deficient, will replete with intravenous iron for 5 days 5. RIGO : resolved 6. +h pylori stool : continue triple abx 7. Anasarca, with mild fluid overload: -echo from November, preserved EF -source unclear, will assess albumin levels 8. SIRS versus Sepsis -recurrent versus new -Likely secondary to new finding of left lower lobe pneumonia, follow-up blood and urine cultures -f/u blood, urine cultures and CXR -Influenza screen was negative -We will start antibiotics for healthcare associated pneumonia and get ID consult -Screening for C. difficile also ordered 9. abnormal lesions on toes, not painful -lower extremity arterial and venous studies were negative -consider Podiatry consult 10. Scrotal pain and concern for epididymitis -Appreciate urology review, recommendations are to continue antibiotic and follow cultures and elevate scrotum. I appreciate review 11. Possible thrush: -nystatin swish and swallow dispo: Continue empiric antibiotics, follow blood cultures, continue thyroid medication, needs to be fever free for at least 24 hours prior to discharge. Result Diagram: 02/13/19 0535 02/13/19 0535 Results 24hrs Laboratory Tests Test 02/13/19 11:31 02/13/19 13:17 02/13/19 13:56 02/13/19 17:46 Erythrocyte 70.0 H Sedimentation Rate C-Reactive Protein 4.8 H Bedside Glucose 119 93 Lactic Acid Level 2.0 Creatine Kinase 20 L Test 02/13/19 22:24 02/13/19 22:30 02/14/19 02:57 02/14/19 06:32 Bedside Glucose 114 90 Urine Color STRAW Urine Clarity CLEAR Urine pH 7.0 Urine Specific 1.006 [place] Urine Ketones NEGATIVE Urine Nitrite NEGATIVE Urine Bilirubin NEGATIVE Urine Urobilinogen NEGATIVE Urine Leukocyte TRACE A Esterase Urine Microscopic 3 RBC Urine Microscopic 8 H WBC Urine Squamous FEW Epithelial Cells Urine Hemoglobin 1+ H Urine Random Sodium 109 H Urine Glucose NEGATIVE Urine Total Protein NEGATIVE Free Thyroxine 3.65 H Free 4.95 Triiodothyronine (T3) pg/mL Test 02/14/19 07:56 Bedside Glucose 109 Exam/Review of Systems Exam Vitals Vital Signs Date Temp Pulse Resp B/P (MAP) Pulse Ox O2 O2 Flow FiO2 Time Delivery Rate 02/14/19 98.9 97 17 111/60 96 Room Air 08:01 (77) Intake and Output 02/13/19 02/13/19 02/14/19 1515:00 23:00 07:00 IntakeIntake Total 480 ml 712 ml 480 ml OutputOutput Total 650 ml BalanceBalance -170 ml 712 ml 480 ml Results Results 24hrs Laboratory Tests Test 02/13/19 11:31 02/13/19 13:17 02/13/19 13:56 02/13/19 17:46 Erythrocyte 70.0 H Sedimentation Rate C-Reactive Protein 4.8 H Bedside Glucose 119 93 Lactic Acid Level 2.0 Creatine Kinase 20 L Test 02/13/19 22:24 02/13/19 22:30 02/14/19 02:57 02/14/19 06:32 Bedside Glucose 114 90 Urine Color STRAW Urine Clarity CLEAR Urine pH 7.0 Urine Specific 1.006 [place] Urine Ketones NEGATIVE Urine Nitrite NEGATIVE Urine Bilirubin NEGATIVE Urine Urobilinogen NEGATIVE Urine Leukocyte TRACE A Esterase Urine Microscopic 3 RBC Urine Microscopic 8 H WBC Urine Squamous FEW Epithelial Cells Urine Hemoglobin 1+ H Urine Random Sodium 109 H Urine Glucose NEGATIVE Urine Total Protein NEGATIVE Free Thyroxine 3.65 H Free 4.95 Triiodothyronine (T3) pg/mL Test 02/14/19 07:56 Bedside Glucose 109 Medications Medication Current Medications IV Flush (NS 3 ml) 3 ml PER PROTOCOL IV ; Start 02/06/19 at 15:00 Ondansetron HCl (Zofran Inj) 4 mg Q6H PRN IV NAUSEA/VOMITING Last administered on 02/14/19at 02:52; Admin Dose 4 MG; Start 02/06/19 at 15:00 Acetaminophen (Tylenol Tab) 650 mg Q6H PRN PO .PAIN 1-3 OR TEMP Last administered on 02/14/19at 02:58; Admin Dose 650 MG; Start 02/06/19 at 15:00 Atorvastatin Calcium (Lipitor) 10 mg DAILY@21 PO Last administered on 02/13/19at 22:26; Admin Dose 10 MG; Start 02/06/19 at 21:00 Miscellaneous Information 1 ea NOTE XX ; Start 02/06/19 at 16:00 Glucose (Glutose) 15 gm Q15M PRN PO DECREASED GLUCOSE; Start 02/06/19 at 16:00 Glucose (Glutose) 22.5 gm Q15M PRN PO DECREASED GLUCOSE; Start 02/06/19 at 16:00 Dextrose (D50w Syringe) 25 ml Q15M PRN IV DECREASED GLUCOSE; Start 02/06/19 at 16:00 Dextrose (D50w Syringe) 50 ml Q15M PRN IV DECREASED GLUCOSE; Start 02/06/19 at 16:00 Glucagon (Glucagen) 1 mg Q15M PRN IM DECREASED GLUCOSE; Start 02/06/19 at 16:00 Glucose (Glutose) 15 gm Q15M PRN BUCCAL DECREASED GLUCOSE; Start 02/06/19 at 16:00 Pantoprazole (Protonix Tab) 40 mg BID@0600,1800 PO Last administered on 02/14/19 05:37; Admin Dose 40 MG; Start 02/07/19 at 06:00 Amoxicillin (Amoxicillin) 1,000 mg BID PO Last administered on 02/13/19 22:26; Admin Dose 1,000 MG; Start 02/06/19 at 21:00; Stop 02/16/19 at 20:59 Clarithromycin (Biaxin) 500 mg BID PO Last administered on 02/13/19 22:26; Admin Dose 500 MG; Start 02/06/19 at 21:00; Stop 02/16/19 at 20:59 Insulin Aspart (Novolog Insulin Pen) 7 unit WITH MEALS SC Last administered on 02/13/19 08:10; Admin Dose 7 UNIT; Start 02/07/19 at 09:30 Bismuth Subsalicylate (Pepto-Bismol) 30 ml QID PO Last administered on 02/13/19 22:25; Admin Dose 30 ML; Start 02/07/19 at 17:00 Miscellaneous Information (* Miscellaneous Pharmacy Order) Treatment of Hypoglycemia: 1.BG 51... Per protocol XX ; Start 02/08/19 at 09:00 Dextrose (D50w Syringe) 25 ml Q15M PRN IV .DECREASED GLUCOSE; Start 02/08/19 at 09:00 Dextrose (D50w Syringe) 50 ml Q15M PRN IV .DECREASED GLUCOSE; Start 02/08/19 at 09:00 Senna (Senokot) 2 tab BID PO Last administered on 02/13/19 22:26; Admin Dose 2 TAB; Start 02/08/19 at 10:00 Methimazole (Tapazole) 30 mg BID PO Last administered on 02/13/19 23:45; Admin Dose 30 MG; Start 02/08/19 at 13:30 Diagnostic Test (Pha) (Accu-Chek) 1 ea 02 XX Last administered on 02/14/19 02:00; Admin Dose 1 EA; Start 02/10/19 at 02:00 Insulin Aspart (Novolog Insulin Pen) NOVOLOG *MODERATE* ALGORITHM WITH MEALS BEDTIME SC Last administered on 02/13/19 08:11; Admin Dose 6 UNIT; Start 02/09/19 at 17:35 Heparin Sodium (Porcine) (Heparin (5000 Units/1ml)) 5,000 unit BID SC Last administered on 02/13/19at 22:32; Admin Dose 5,000 UNIT; Start 02/11/19 at 09:00 Acetaminophen/ Hydrocodone Bitart ([place] (5/325)) 1 tab Q6H PRN PO MODERATE PA IN LEVEL 4-6; Start 02/12/19 at 09:00 Insulin Glargine (Lantus) 20 units DAILY@0930 SC ; Start 02/14/19 at 09:30 YOLI ZAMORANO Feb 14, 2019 09:04
[2019-02-14] MEDS ORDERED: INSULIN GLARGINE [LANTus] (100 UNITS/ML) SYG SC SCH (09:30)
--- NOTE | 2019-02-14 12:00 | QN ---
Documentation Comment ID consult requested by Dr. Ramsey. Dr. Tomas to see pt later today. Thank you! NESTOR HUGHES NP Feb 14, 2019 12:00
--- NOTE | 2019-02-14 12:35 | CONS ---
Assessment/Plan Assessment/Plan Assessment/Plan (Daily) Deep tissue injuries bilateral feet Blister formation DM2 with peripheral neuropathy HTN Hyperthyroidism Plan Consent obtained and deroofed blisters of bilateral feet with no significant open lesions. There are deep tissue injuries noted. Recommend daily dressing change with xeroform. Offload feet with pillows. Patient has well controlled hemoglobin A1c. Consultation Date/Type/Reason Admit Date/Time Feb 06, 2019 at 14:46 Date/Time of Note DATE: 02/14/19 TIME: 12:35 Hx of Present Illness 59 y/o M patient who presents to the floor with bilateral distal digit blister formation. Patient states it began roughly a week ago and does not recall any inciting event. Patient states it's possible due to poor shoe gear. Reports mild burning type pain to the distal tips of the blister site. Denies constitutional symptoms. ROS Negative except for HPI Past Medical History Medical History: diabetes, high cholesterol, hypertension, hyperthyroid Home Meds Active Scripts Insulin Glargine* (Lantus*) 100 Unit/Ml Soln, 15 UNIT SC DAILY, #14 [facility] Insulin Aspart* (Novolog Insulin Pen*) 100 Unit/Ml Soln, 7 UNIT SC WITH MEALS, #7 [facility]/19 Sennosides* (Senna Lax*) 8.6 Mg Tablet, 2 TAB PO BID, #120 TAB [facility] 02/11/19 Clarithromycin* (Clarithromycin*) 500 Mg Tablet, 500 MG PO BID for 5 Days, #10 TAB [facility] 02/11/19 Amoxicillin* (Amoxicillin*) 500 Mg Cap, 1000 MG PO BID for 5 Days, #10 CAP [facility] 02/11/19 Methimazole* (Methimazole*) 10 Mg Tablet, 30 MG PO BID, #180 TAB 1 Refill Prov:HANNAH ZAMORANOCristopher . 02/11/19 Reported Medications Pantoprazole* (Pantoprazole*) 40 Mg Tablet.dr, 40 MG PO AC BREAKFAST, TAB 02/06/19 Simvastatin* (Zocor*) 20 Mg Tablet, 20 MG PO QHS, #30 TAB 01/16/19 Lisinopril* (Lisinopril*) 2.5 Mg Tablet, 2.5 MG PO DAILY, #30 TAB 01/16/19 Propranolol Hcl* (Propranolol Hcl*) 40 Mg Tablet, 80 MG PO TID, TAB 01/16/19 Discontinued Reported Medications Metformin* (Glucophage*) 500 Mg Tab, 500 MG PO BID, #90 TAB 01/16/19 Medications Current Medications IV Flush (NS 3 ml) 3 ml PER PROTOCOL IV ; Start 02/06/19 at 15:00 Ondansetron HCl (Zofran Inj) 4 mg Q6H PRN IV NAUSEA/VOMITING Last administered on 02/14/19at 02:52; Admin Dose 4 MG; Start 02/06/19 at 15:00 Acetaminophen (Tylenol Tab) 650 mg Q6H PRN PO .PAIN 1-3 OR TEMP Last administered on 02/14/19at 02:58; Admin Dose 650 MG; Start 02/06/19 at 15:00 Atorvastatin Calcium (Lipitor) 10 mg DAILY@21 PO Last administered on 02/13/19at 22:26; Admin Dose 10 MG; Start 02/06/19 at 21:00 Miscellaneous Information 1 ea NOTE XX ; Start 02/06/19 at 16:00 Glucose (Glutose) 15 gm Q15M PRN PO DECREASED GLUCOSE; Start 02/06/19 at 16:00 Glucose (Glutose) 22.5 gm Q15M PRN PO DECREASED GLUCOSE; Start 02/06/19 at 16:00 Dextrose (D50w Syringe) 25 ml Q15M PRN IV DECREASED GLUCOSE; Start 02/06/19 at 16:00 Dextrose (D50w Syringe) 50 ml Q15M PRN IV DECREASED GLUCOSE; Start 02/06/19 at 16:00 Glucagon (Glucagen) 1 mg Q15M PRN IM DECREASED GLUCOSE; Start 02/06/19 at 16:00 Glucose (Glutose) 15 gm Q15M PRN BUCCAL DECREASED GLUCOSE; Start 02/06/19 at 16:00 Pantoprazole (Protonix Tab) 40 mg BID@0600,1800 PO Last administered on 02/14/19at 05:37; Admin Dose 40 MG; Start 02/07/19 at 06:00 Amoxicillin (Amoxicillin) 1,000 mg BID PO Last administered on 02/14/19at 08:50; Admin Dose 1,000 MG; Start 02/06/19 at 21:00; Stop 02/16/19 at 20:59 Clarithromycin (Biaxin) 500 mg BID PO Last administered on 02/14/19 08:42; Admin Dose 500 MG; Start 02/06/19 at 21:00; Stop 02/16/19 at 20:59 Insulin Aspart (Novolog Insulin Pen) 7 unit WITH MEALS SC Last administered on 02/14/19 08:46; Admin Dose 7 UNIT; Start 02/07/19 at 09:30 Bismuth Subsalicylate (Pepto-Bismol) 30 ml QID PO Last administered on 02/14/19 08:41; Admin Dose 30 ML; Start 02/07/19 at 17:00 Miscellaneous Information (* Miscellaneous Pharmacy Order) Treatment of Hypoglycemia: 1.BG 51... Per protocol XX ; Start 02/08/19 at 09:00 Dextrose (D50w Syringe) 25 ml Q15M PRN IV .DECREASED GLUCOSE; Start 02/08/19 at 09:00 Dextrose (D50w Syringe) 50 ml Q15M PRN IV .DECREASED GLUCOSE; Start 02/08/19 at 09:00 Senna (Senokot) 2 tab BID PO Last administered on 02/13/19 22:26; Admin Dose 2 TAB; Start 02/08/19 at 10:00 Methimazole (Tapazole) 30 mg BID PO Last administered on 02/14/19 08:41; Admin Dose 30 MG; Start 02/08/19 at 13:30 Diagnostic Test (Pha) (Accu-Chek) 1 ea 02 XX Last administered on 02/14/19at 02:00; Admin Dose 1 EA; Start 02/10/19 at 02:00 Insulin Aspart (Novolog Insulin Pen) NOVOLOG *MODERATE* ALGORITHM WITH MEALS BEDTIME SC Last administered on 02/13/19 08:11; Admin Dose 6 UNIT; Start 02/09/19 at 17:35 Heparin Sodium (Porcine) (Heparin (5000 Units/1ml)) 5,000 unit BID SC Last administered on 02/14/19 08:47; Admin Dose 5,000 UNIT; Start 02/11/19 at 09:00 Acetaminophen/ Hydrocodone Bitart ([place] (5/325)) 1 tab Q6H PRN PO MODERATE PAIN LEVEL 4-6; Start 02/12/19 at 09:00 Insulin Glargine (Lantus) 20 units DAILY@0930 SC Last administered on 02/14/19at 08:47; Admin Dose 20 UNITS; Start 02/14/19 at 09:30 Cefepime HCl 50 ml @ 100 mls/hr Q12 IVPB Last administered on 02/14/19at 10:02; Admin Dose 100 MLS/HR; Start 02/14/19 at 09:00 Ferric Sodium Gluconate Complex 125 mg/Sodium Chloride 110 ml @ 110 mls/hr DAILY@1300 IVPB ; Start 02/14/19 at 13:00; Stop 02/18/19 at 13:59 Allergies: Coded Allergies: No Known Allergy (Unverified , 02/06/19) Past Surgical History Past Surgical Hx: no surgical history Social History Alcohol Use: sober (x 10 years) Smoking Status: Never smoker Drug Use: none Exam/Review of Systems Exam Vitals Vital Signs Date Temp Pulse Resp B/P (MAP) Pulse Ox O2 O2 Flow FiO2 Time Delivery Rate 02/14/19 98.9 97 17 111/60 96 Room Air 08:01 (77) Intake and Output 02/13/19 02/13/19 02/14/19 1515:00 23:00 07:00 IntakeIntake Total 480 ml 712 ml 480 ml OutputOutput Total 650 ml BalanceBalance -170 ml 712 ml 480 ml Exam Palpable DP/PT pulses bilateral feet CFT less than 3 seconds to digits Absent protective sensations Right distal hallux and 2nd digit tips with sanguinous blister formation and underlying deep tissue injury Left distal hallux tip dried hematoma blister formation no underlying lesion noted. Muscle strength 5/5 in all compartments of the foot. Non invasive studies IMPRESSION: 1. Unremarkable bilateral lower extremity arterial Doppler ultrasound. Results Result Diagram: 02/13/19 0535 02/13/19 0535 Results 24hrs Laboratory Tests Test 02/13/19 13:17 02/13/19 13:56 02/13/19 17:46 02/13/19 22:24 Bedside Glucose 119 93 114 Lactic Acid Level 2.0 Creatine Kinase 20 L Test 02/13/19 22:30 02/14/19 02:57 02/14/19 06:29 02/14/19 06:32 Urine Color STRAW Urine Clarity CLEAR Urine pH 7.0 Urine Specific 1.006 [place] Urine Ketones NEGATIVE Urine Nitrite NEGATIVE Urine Bilirubin NEGATIVE Urine Urobilinogen NEGATIVE Urine Leukocyte TRACE A Esterase Urine Microscopic 3 RBC Urine Microscopic 8 H WBC Urine Squamous FEW Epithelial Cells Urine Hemoglobin 1+ H Urine Random Sodium 109 H Urine Glucose NEGATIVE Urine Total Protein NEGATIVE Bedside Glucose 90 Phosphorus Level 3.0 Magnesium Level 1.3 L Free Thyroxine 3.65 H Free 4.95 Triiodothyronine (T3) pg/mL Test 02/14/19 07:56 02/14/19 12:00 Bedside Glucose 109 133 Medications Medication Current Medications IV Flush (NS 3 ml) 3 ml PER PROTOCOL IV ; Start 02/06/19 at 15:00 Ondansetron HCl (Zofran Inj) 4 mg Q6H PRN IV NAUSEA/VOMITING Last administered on 02/14/19at 02:52; Admin Dose 4 MG; Start 02/06/19 at 15:00 Acetaminophen (Tylenol Tab) 650 mg Q6H PRN PO .PAIN 1-3 OR TEMP Last administered on 02/14/19at 02:58; Admin Dose 650 MG; Start 02/06/19 at 15:00 Atorvastatin Calcium (Lipitor) 10 mg DAILY@21 PO Last administered on 02/13/19at 22:26; Admin Dose 10 MG; Start 02/06/19 at 21:00 Miscellaneous Information 1 ea NOTE XX ; Start 02/06/19 at 16:00 Glucose (Glutose) 15 gm Q15M PRN PO DECREASED GLUCOSE; Start 02/06/19 at 16:00 Glucose (Glutose) 22.5 gm Q15M PRN PO DECREASED GLUCOSE; Start 02/06/19 at 16:00 Dextrose (D50w Syringe) 25 ml Q15M PRN IV DECREASED GLUCOSE; Start 02/06/19 at 16:00 Dextrose (D50w Syringe) 50 ml Q15M PRN IV DECREASED GLUCOSE; Start 02/06/19 at 16:00 Glucagon (Glucagen) 1 mg Q15M PRN IM DECREASED GLUCOSE; Start 02/06/19 at 16:00 Glucose (Glutose) 15 gm Q15M PRN BUCCAL DECREASED GLUCOSE; Start 02/06/19 at 16:00 Pantoprazole (Protonix Tab) 40 mg BID@0600,1800 PO Last administered on 02/14/19 05:37; Admin Dose 40 MG; Start 02/07/19 at 06:00 Amoxicillin (Amoxicillin) 1,000 mg BID PO Last administered on 02/14/19 08:50; Admin Dose 1,000 MG; Start 02/06/19 at 21:00; Stop 02/16/19 at 20:59 Clarithromycin (Biaxin) 500 mg BID PO Last administered on 02/14/19 08:42; Admin Dose 500 MG; Start 02/06/19 at 21:00; Stop 02/16/19 at 20:59 Insulin Aspart (Novolog Insulin Pen) 7 unit WITH MEALS SC Last administered on 02/14/19 08:46; Admin Dose 7 UNIT; Start 02/07/19 at 09:30 Bismuth Subsalicylate (Pepto-Bismol) 30 ml QID PO Last administered on 02/14/19 08:41; Admin Dose 30 ML; Start 02/07/19 at 17:00 Miscellaneous Information (* Miscellaneous Pharmacy Order) Treatment of Hypoglycemia: 1.BG 51... Per protocol XX ; Start 02/08/19 at 09:00 Dextrose (D50w Syringe) 25 ml Q15M PRN IV .DECREASED GLUCOSE; Start 02/08/19 at 09:00 Dextrose (D50w Syringe) 50 ml Q15M PRN IV .DECREASED GLUCOSE; Start 02/08/19 at 09:00 Senna (Senokot) 2 tab BID PO Last administered on 02/13/19 22:26; Admin Dose 2 TAB; Start 02/08/19 at 10:00 Methimazole (Tapazole) 30 mg BID PO Last administered on 02/14/19 08:41; Admin Dose 30 MG; Start 02/08/19 at 13:30 Diagnostic Test (Pha) (Accu-Chek) 1 ea 02 XX Last administered on 02/14/19 02:00; Admin Dose 1 EA; Start 02/10/19 at 02:00 Insulin Aspart (Novolog Insulin Pen) NOVOLOG *MODERATE* ALGORITHM WITH MEALS BEDTIME SC Last administered on 02/13/19 08:11; Admin Dose 6 UNIT; Start 02/09/19 at 17:35 Heparin Sodium (Porcine) (Heparin (5000 Units/1ml)) 5,000 unit BID SC Last administered on 02/14/19at 08:47; Admin Dose 5,000 UNIT; Start 02/11/19 at 09:00 Acetaminophen/ Hydrocodone Bitart ([place] (5/325)) 1 tab Q6H PRN PO MODERATE PAIN LEVEL 4-6; Start 02/12/19 at 09:00 Insulin Glargine (Lantus) 20 units DAILY@0930 SC Last administered on 02/14/19at 08:47; Admin Dose 20 UNITS; Start 02/14/19 at 09:30 Cefepime HCl 50 ml @ 100 mls/hr Q12 IVPB Last administered on 02/14/19at 10:02; Admin Dose 100 MLS/HR; Start 02/14/19 at 09:00 Ferric Sodium Gluconate Complex 125 mg/Sodium Chloride 110 ml @ 110 mls/hr DAILY@1300 IVPB ; Start 02/14/19 at 13:00; Stop 02/18/19 at 13:59 JESU HELM DPM Feb 14, 2019 12:35
[2019-02-14] MEDS: SOD FERRIC GLUC COMPLX 125 MG in SOD CHLORIDE 0.9% 100 ML IVPB SCH (12:38)
[2019-02-14] MEDS ORDERED: COLLAGENASE 5 GM (UD JAR) TOP SCH (13:00)
--- NOTE | 2019-02-14 13:18 | CONS ---
Assessment/Plan Assessment/Plan Problems: (1) Graves' disease with exophthalmos Status: Chronic Comment: Medically improved and is tired hormone levels are coming down towards normal. 1 we have a better idea of what other issues are going on with this patient then we can stop the methimazole, and a week to 10 days later treated with radioactive iodine ablation for definitive therapy of the Graves' disease. (2) Diabetes mellitus type 2 in nonobese Status: Chronic Comment: Adequate control (3) Helicobacter pylori stool test positive Status: Chronic Comment: Bleeding anti-H. pylori therapy. (4) Fever Status: Acute Comment: Infectious disease consult has been requested. Please note the stool for C. difficile was counseled by the laboratory. Consultation Date/Type/Reason Admit Date/Time Feb 06, 2019 at 14:46 Initial Consult Date 02/06/19 Type of Consult Endocrine Reason for Consultation Hyperthyroidism Requesting Provider: YOLI ZAMORANO Date/Time of Note DATE: 02/14/19 TIME: 13:16 24 HR Interval Summary Free Text/Dictation Patient continues to have fevers recently. Please note that the stool specimen sent to the lab for C. difficile was canceled by the lab Detailed Summary Endocrine: no complaints Exam/Review of Systems Exam Vitals Vital Signs Date Temp Pulse Resp B/P (MAP) Pulse Ox O2 O2 Flow FiO2 Time Delivery Rate 02/14/19 98.9 97 17 111/60 96 Room Air 08:01 (77) Intake and Output 02/13/19 02/13/19 02/14/19 1515:00 23:00 07:00 IntakeIntake Total 480 ml 712 ml 480 ml OutputOutput Total 650 ml BalanceBalance -170 ml 712 ml 480 ml Constitutional: alert, oriented Results Result Diagram: 02/13/19 0535 02/13/19 0535 Results 24hrs Laboratory Tests Test 02/13/19 13:17 02/13/19 13:56 02/13/19 17:46 02/13/19 22:24 Bedside Glucose 119 93 114 Lactic Acid Level 2.0 Creatine Kinase 20 L Test 02/13/19 22:30 02/14/19 02:57 02/14/19 06:29 02/14/19 06:32 Urine Color STRAW Urine Clarity CLEAR Urine pH 7.0 Urine Specific 1.006 [place] Urine Ketones NEGATIVE Urine Nitrite NEGATIVE Urine Bilirubin NEGATIVE Urine Urobilinogen NEGATIVE Urine Leukocyte TRACE A Esterase Urine Microscopic 3 RBC Urine Microscopic 8 H WBC Urine Squamous FEW Epithelial Cells Urine Hemoglobin 1+ H Urine Random Sodium 109 H Urine Glucose NEGATIVE Urine Total Protein NEGATIVE Bedside Glucose 90 Phosphorus Level 3.0 Magnesium Level 1.3 L Free Thyroxine 3.65 H Free 4.95 Triiodothyronine (T3) pg/mL Test 02/14/19 07:56 02/14/19 12:00 Bedside Glucose 109 133 Medications Medication Current Medications IV Flush (NS 3 ml) 3 ml PER PROTOCOL IV ; Start 02/06/19 at 15:00 Ondansetron HCl (Zofran Inj) 4 mg Q6H PRN IV NAUSEA/VOMITING Last administered on 02/14/19at 02:52; Admin Dose 4 MG; Start 02/06/19 at 15:00 Acetaminophen (Tylenol Tab) 650 mg Q6H PRN PO .PAIN 1-3 OR TEMP Last adminis tered on 02/14/19at 02:58; Admin Dose 650 MG; Start 02/06/19 at 15:00 Atorvastatin Calcium (Lipitor) 10 mg DAILY@21 PO Last administered on 02/13/19at 22:26; Admin Dose 10 MG; Start 02/06/19 at 21:00 Miscellaneous Information 1 ea NOTE XX ; Start 02/06/19 at 16:00 Glucose (Glutose) 15 gm Q15M PRN PO DECREASED GLUCOSE; Start 02/06/19 at 16:00 Glucose (Glutose) 22.5 gm Q15M PRN PO DECREASED GLUCOSE; Start 02/06/19 at 16:00 Dextrose (D50w Syringe) 25 ml Q15M PRN IV DECREASED GLUCOSE; Start 02/06/19 at 16:00 Dextrose (D50w Syringe) 50 ml Q15M PRN IV DECREASED GLUCOSE; Start 02/06/19 at 16:00 Glucagon (Glucagen) 1 mg Q15M PRN IM DECREASED GLUCOSE; Start 02/06/19 at 16:00 Glucose (Glutose) 15 gm Q15M PRN BUCCAL DECREASED GLUCOSE; Start 02/06/19 at 16:00 Pantoprazole (Protonix Tab) 40 mg BID@0600,1800 PO Last administered on 02/14/19at 05:37; Admin Dose 40 MG; Start 02/07/19 at 06:00 Amoxicillin (Amoxicillin) 1,000 mg BID PO Last administered on 02/14/19 08:50; Admin Dose 1,000 MG; Start 02/06/19 at 21:00; Stop 02/16/19 at 20:59 Clarithromycin (Biaxin) 500 mg BID PO Last administered on 02/14/19 08:42; Admin Dose 500 MG; Start 02/06/19 at 21:00; Stop 02/16/19 at 20:59 Insulin Aspart (Novolog Insulin Pen) 7 unit WITH MEALS SC Last administered on 02/14/19 12:35; Admin Dose 7 UNIT; Start 02/07/19 at 09:30 Bismuth Subsalicylate (Pepto-Bismol) 30 ml QID PO Last administered on 02/14/19 12:36; Admin Dose 30 ML; Start 02/07/19 at 17:00 Miscellaneous Information (* Miscellaneous Pharmacy Order) Treatment of Hypoglycemia: 1.BG 51... Per protocol XX ; Start 02/08/19 at 09:00 Dextrose (D50w Syringe) 25 ml Q15M PRN IV .DECREASED GLUCOSE; Start 02/08/19 at 09:00 Dextrose (D50w Syringe) 50 ml Q15M PRN IV .DECREASED GLUCOSE; Start 02/08/19 at 09:00 Senna (Senokot) 2 tab BID PO Last administered on 02/13/19 22:26; Admin Dose 2 TAB; Start 02/08/19 at 10:00 Methimazole (Tapazole) 30 mg BID PO Last administered on 02/14/19 08:41; Admin Dose 30 MG; Start 02/08/19 at 13:30 Diagnostic Test (Pha) (Accu-Chek) 1 ea 02 XX Last administered on 02/14/19 02:00; Admin Dose 1 EA; Start 02/10/19 at 02:00 Insulin Aspart (Novolog Insulin Pen) NOVOLOG *MODERATE* ALGORITHM WITH MEALS BEDTIME SC Last administered on 02/13/19 08:11; Admin Dose 6 UNIT; Start 02/09/19 at 17:35 Heparin Sodium (Porcine) (Heparin (5000 Units/1ml)) 5,000 unit BID SC Last administered on 02/14/19 08:47; Admin Dose 5,000 UNIT; Start 02/11/19 at 09:00 Acetaminophen/ Hydrocodone Bitart ([place] (5/325)) 1 tab Q6H PRN PO MODERATE PAIN LEVEL 4-6; Start 02/12/19 at 09:00 Insulin Glargine (Lantus) 20 units DAILY@0930 SC Last administered on 02/14/19at 08:47; Admin Dose 20 UNITS; Start 02/14/19 at 09:30 Cefepime HCl 50 ml @ 100 mls/hr Q12 IVPB Last administered on 02/14/19at 10:02; Admin Dose 100 MLS/HR; Start 02/14/19 at 09:00 Ferric Sodium Gluconate Complex 125 mg/Sodium Chloride 110 ml @ 110 mls/hr DAILY@1300 IVPB Last administered on 02/14/19at 12:38; Admin Dose 110 MLS/HR; Start 02/14/19 at 13:00; Stop 02/18/19 at 13:59 Collagenase (Santyl) 1 applic DAILY TOP ; Start 02/14/19 at 13:00 Sodium Hypochlorite ([place]ak[place] Diluted (40)) 1 applic DAILY TP ; Start 02/14/19 at 14:00 Magnesium Sulfate 3 gm/Dextrose 106 ml @ 35.333 mls/ hr ONCE ONCE IVPB ; Start 02/14/19 at 14:00; Stop 02/14/19 at 16:59 Nystatin (Nystatin Susp) 5 ml QID PO ; Start 02/14/19 at 13:00; Stop 02/21/19 at 12:59 ANA GARCIA MD Feb 14, 2019 13:18
[2019-02-14] MEDS: NYSTATIN SUSP 5 ML CUP PO SCH ×3 (13:50→22:41)
[2019-02-14] MEDS ORDERED: DAKINS 0.0125%(1/40) 473 ML SOLUTION TP SCH (14:00)
[2019-02-14] MEDS ORDERED: MAGNESIUM SULFATE 3 GM in DEXTROSE 5% 100 ML IVPB ONE (14:00)
[2019-02-14 15:17] VITALS: BP 117/67; PULSE 110; RESP 17
--- NOTE | 2019-02-14 15:18 | CONS ---
Assessment/Plan Assessment/Plan Hospital Course (Demo Recall) - Recurrent SIRS (fever and tachycardia); previous ID w/u and imaging were negative; - s/p Vancomycin and Cefepime (12/11/2018-12/14/18) and now all id w/u still negative - H. 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 pylori with amoxicillin, clarithromycin and PPI x 14 days if not completed previously - hold off hcap abx for now - repeat cxr in am - complete 7 days of nystatin Consultation Date/Type/Reason Admit Date/Time Feb 06, 2019 at 14:46 Date of Consultation: Feb 14, 2019 Type of Consult id Reason for Consultation abx recs Requesting Provider: YOLI ZAMORANO Date/Time of Note DATE: 02/14/19 TIME: 15:05 Hx of Present Illness Mr Whitaker is a 59 yo male with Graves Disease who has been evaluated several times at [facility]. He was seen by our group in December. All Id w/u negative other than H.pylori. He was readmitted this month with SIRS. He required ICU care but eventually improved Methimazole, electrolyte correction and aggressive IVF. He has been completing biaxin/amox here since his compliance as outpatient was not clear. He recently was noted to have fever again. Cefepime empirically has been started. He also has been placed on nystatin for thrush. His xray is suggestive of new infil. He recently has had diarrhea but none today per patient and nursing. Past Medical History Medical History: diabetes, high cholesterol, hypertension, hyperthyroid Home Meds Active Scripts Insulin Glargine* (Lantus*) 100 Unit/Ml Soln, 15 UNIT SC DAILY, #14 VIAL Prov:YOLI ZAMORANO 02/11/19 Insulin Aspart* (Novolog Insulin Pen*) 100 Unit/Ml Soln, 7 UNIT SC WITH MEALS, #7 VIAL Prov:YOLI ZAMORANO. 02/11/19 Sennosides* (Senna Lax*) 8.6 Mg Tablet, 2 TAB PO BID, #120 TAB Prov:YOLI ZAMORANO . 02/11/19 Clarithromycin* (Clarithromycin*) 500 Mg Tablet, 500 MG PO BID for 5 Days, #10 TAB Prov:YOLI ZAMORANO . 02/11/19 Amoxicillin* (Amoxicillin*) 500 Mg Cap, 1000 MG PO BID for 5 Days, #10 CAP Prov:YOLI ZAMORANO . 02/11/19 Methimazole* (Methimazole*) 10 Mg Tablet, 30 MG PO BID, #180 TAB 1 Refill Prov:YOLI ZAMORANO . 02/11/19 Reported Medications Pantoprazole* (Pantoprazole*) 40 Mg Tablet.dr, 40 MG PO AC BREAKFAST, TAB 02/06/19 Simvastatin* (Zocor*) 20 Mg Tablet, 20 MG PO QHS, #30 TAB 01/16/19 Lisinopril* (Lisinopril*) 2.5 Mg Tablet, 2.5 MG PO DAILY, #30 TAB 01/16/19 Propranolol Hcl* (Propranolol Hcl*) 40 Mg Tablet, 80 MG PO TID, TAB 01/16/19 Discontinued Reported Medications Metformin* (Glucophage*) 500 Mg Tab, 500 MG PO BID, #90 TAB 01/16/19 Medications Current Medications IV Flush (NS 3 ml) 3 ml PER PROTOCOL IV ; Start 02/06/19 at 15:00 Ondansetron HCl (Zofran Inj) 4 mg Q6H PRN IV NAUSEA/VOMITING Last administered on 02/14/19at 02:52; Admin Dose 4 MG; Start 02/06/19 at 15:00 Acetaminophen (Tylenol Tab) 650 mg Q6H PRN PO .PAIN 1-3 OR TEMP Last administered on 02/14/19at 02:58; Admin Dose 650 MG; Start 02/06/19 at 15:00 Atorvastatin Calcium (Lipitor) 10 mg DAILY@21 PO Last administered on 02/13/19at 22:26; Admin Dose 10 MG; Start 02/06/19 at 21:00 Miscellaneous Information 1 ea NOTE XX ; Start 02/06/19 at 16:00 Glucose (Glutose) 15 gm Q15M PRN PO DECREASED GLUCOSE; Start 02/06/19 at 16:00 Glucose (Glutose) 22.5 gm Q15M PRN PO DECREASED GLUCOSE; Start 02/06/19 at 16:00 Dextrose (D50w Syringe) 25 ml Q15M PRN IV DECREASED GLUCOSE; Start 02/06/19 at 16:00 Dextrose (D50w Syringe) 50 ml Q15M PRN IV DECREASED GLUCOSE; Start 02/06/19 at 16:00 Glucagon (Glucagen) 1 mg Q15M PRN IM DECREASED GLUCOSE; Start 02/06/19 at 16:00 Glucose (Glutose) 15 gm Q15M PRN BUCCAL DECREASED GLUCOSE; Start 02/06/19 at 16:00 Pantoprazole (Protonix Tab) 40 mg BID@0600,1800 PO Last administered on 02/14/19at 05:37; Admin Dose 40 MG; Start 02/07/19 at 06:00 Amoxicillin (Amoxicillin) 1,000 mg BID PO Last administered on 02/14/19at 08:50; Admin Dose 1,000 MG; Start 02/06/19 at 21:00; Stop 02/16/19 at 20:59 Clarithromycin (Biaxin) 500 mg BID PO Last administered on 02/14/19at 08:42; Admin Dose 500 MG; Start 02/06/19 at 21:00; Stop 02/16/19 at 20:59 Insulin Aspart (Novolog Insulin Pen) 7 unit WITH MEALS SC Last administered on 02/14/19at 12:35; Admin Dose 7 UNIT; Start 02/07/19 at 09:30 Bismuth Subsalicylate (Pepto-Bismol) 30 ml QID PO Last administered on 02/14/19at 12:36; Admin Dose 30 ML; Start 02/07/19 at 17:00 Miscellaneous Information (* Miscellaneous Pharmacy Order) Treatment of Hypoglycemia: 1.BG 51... Per protocol XX ; Start 02/08/19 at 09:00 Dextrose (D50w Syringe) 25 ml Q15M PRN IV .DECREASED GLUCOSE; Start 02/08/19 at 09:00 Dextrose (D50w Syringe) 50 ml Q15M PRN IV .DECREASED GLUCOSE; Start 02/08/19 at 09:00 Senna (Senokot) 2 tab BID PO Last administered on 02/13/19 22:26; Admin Dose 2 TAB; Start 02/08/19 at 10:00 Methimazole (Tapazole) 30 mg BID PO Last administered on 02/14/19 08:41; Admin Dose 30 MG; Start 02/08/19 at 13:30 Diagnostic Test (Pha) (Accu-Chek) 1 ea 02 XX Last administered on 02/14/19 02:00; Admin Dose 1 EA; Start 02/10/19 at 02:00 Insulin Aspart (Novolog Insulin Pen) NOVOLOG *MODERATE* ALGORITHM WITH MEALS BEDTIME SC Last administered on 02/13/19 08:11; Admin Dose 6 UNIT; Start 02/09/19 at 17:35 Heparin Sodium (Porcine) (Heparin (5000 Units/1ml)) 5,000 unit BID SC Last a dministered on 02/14/19 08:47; Admin Dose 5,000 UNIT; Start 02/11/19 at 09:00 Acetaminophen/ Hydrocodone Bitart ([place] (5/325)) 1 tab Q6H PRN PO MODERATE PAIN LEVEL 4-6; Start 02/12/19 at 09:00 Insulin Glargine (Lantus) 20 units DAILY@0930 SC Last administered on 02/14/19 08:47; Admin Dose 20 UNITS; Start 02/14/19 at 09:30 Cefepime HCl 50 ml @ 100 mls/hr Q12 IVPB Last administered on 02/14/19 10:02; Admin Dose 100 MLS/HR; Start 02/14/19 at 09:00 Ferric Sodium Gluconate Complex 125 mg/Sodium Chloride 110 ml @ 110 mls/hr DAILY@1300 IVPB Last administered on 02/14/19 12:38; Admin Dose 110 MLS/HR; Start 02/14/19 at 13:00; Stop 02/18/19 at 13:59 Magnesium Sulfate 3 gm/Dextrose 106 ml @ 35.333 mls/ hr ONCE ONCE IVPB Last administered on 02/14/19 14:53; Admin Dose 35.333 MLS/HR; Start 02/14/19 at 14:00; Stop 02/14/19 at 16:59 Nystatin (Nystatin Susp) 5 ml QID PO Last administered on 02/14/19at 13:50; Admin Dose 5 ML; Start 02/14/19 at 13:00; Stop 02/21/19 at 12:59 Allergies: Coded Allergies: No Known Allergy (Unverified , 02/06/19) Past Surgical History Past Surgical Hx: no surgical history Social History Alcohol Use: sober (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) Smoking Status: Never smoker Drug Use: none Exam/Review of Systems Exam Vitals Vital Signs Date Temp Pulse Resp B/P (MAP) Pulse Ox O2 O2 Flow FiO2 Time Delivery Rate 02/14/19 98.9 97 17 111/60 96 Room Air 08:01 (77) Intake and Output 02/13/19 02/13/19 02/14/19 1515:00 23:00 07:00 IntakeIntake Total 480 ml 712 ml 480 ml OutputOutput Total 650 ml BalanceBalance -170 ml 712 ml 480 ml Constitutional: alert, oriented, well developed Psych: no complaints, nl mood/affect Head: normocephalic, atraumatic Eyes: nl conjunctiva, EOMI, nl lids, nl sclera, PERRL ENMT: nl external ears & nose, nl lips & teeth, nl nasal mucosa & septum Respiratory: clear to auscultation, normal air movement Gastrointestinal: soft, nl liver, spleen, non-tender Neurological: EMERGENCY RESPONSE COORDINATOR II-XII intact, nl mental status, nl speech, nl strength Results Result Diagram: 02/13/19 0535 02/13/19 0535 Results 24hrs Laboratory Tests Test 02/13/19 17:46 02/13/19 22:24 02/13/19 22:30 02/14/19 02:57 Bedside Glucose 93 114 90 Urine Color STRAW Urine Clarity CLEAR Urine pH 7.0 Urine Specific 1.006 [place] Urine Ketones NEGATIVE Urine Nitrite NEGATIVE Urine Bilirubin NEGATIVE Urine Urobilinogen NEGATIVE Urine Leukocyte TRACE A Esterase Urine Microscopic 3 RBC Urine Microscopic 8 H WBC Urine Squamous FEW Epithelial Cells Urine Hemoglobin 1+ H Urine Random Sodium 109 H Urine Glucose NEGATIVE Urine Total Protein NEGATIVE Test 02/14/19 06:29 02/14/19 06:32 02/14/19 07:56 02/14/19 12:00 Phosphorus Level 3.0 Magnesium Level 1.3 L Free Thyroxine 3.65 H Free 4.95 Triiodothyronine (T3) pg/mL Bedside Glucose 109 133 Medications Medication Current Medications IV Flush (NS 3 ml) 3 ml PER PROTOCOL IV ; Start 02/06/19 at 15:00 Ondansetron HCl (Zofran Inj) 4 mg Q6H PRN IV NAUSEA/VOMITING Last administered on 02/14/19at 02:52; Admin Dose 4 MG; Start 02/06/19 at 15:00 Acetaminophen (Tylenol Tab) 650 mg Q6H PRN PO .PAIN 1-3 OR TEMP Last administered on 02/14/19at 02:58; Admin Dose 650 MG; Start 02/06/19 at 15:00 Atorvastatin Calcium (Lipitor) 10 mg DAILY@21 PO Last administered on 02/13/19at 22:26; Admin Dose 10 MG; Start 02/06/19 at 21:00 Miscellaneous Information 1 ea NOTE XX ; Start 02/06/19 at 16:00 Glucose (Glutose) 15 gm Q15M PRN PO DECREASED GLUCOSE; Start 02/06/19 at 16:00 Glucose (Glutose) 22.5 gm Q15M PRN PO DECREASED GLUCOSE; Start 02/06/19 at 16:00 Dextrose (D50w Syringe) 25 ml Q15M PRN IV DECREASED GLUCOSE; Start 02/06/19 at 16:00 Dextrose (D50w Syringe) 50 ml Q15M PRN IV DECREASED GLUCOSE; Start 02/06/19 at 16:00 Glucagon (Glucagen) 1 mg Q15M PRN IM DECREASED GLUCOSE; Start 02/06/19 at 16:00 Glucose (Glutose) 15 gm Q15M PRN BUCCAL DECREASED GLUCOSE; Start 02/06/19 at 16: 00 Pantoprazole (Protonix Tab) 40 mg BID@0600,1800 PO Last administered on 02/14/19at 05:37; Admin Dose 40 MG; Start 02/07/19 at 06:00 Amoxicillin (Amoxicillin) 1,000 mg BID PO Last administered on 02/14/19at 08:50; Admin Dose 1,000 MG; Start 02/06/19 at 21:00; Stop 02/16/19 at 20:59 Clarithromycin (Biaxin) 500 mg BID PO Last administered on 02/14/19at 08:42; Admin Dose 500 MG; Start 02/06/19 at 21:00; Stop 02/16/19 at 20:59 Insulin Aspart (Novolog Insulin Pen) 7 unit WITH MEALS SC Last administered on 02/14/19 12:35; Admin Dose 7 UNIT; Start 02/07/19 at 09:30 Bismuth Subsalicylate (Pepto-Bismol) 30 ml QID PO Last administered on 02/14/19 12:36; Admin Dose 30 ML; Start 02/07/19 at 17:00 Miscellaneous Information (* Miscellaneous Pharmacy Order) Treatment of Hypoglycemia: 1.BG 51... Per protocol XX ; Start 02/08/19 at 09:00 Dextrose (D50w Syringe) 25 ml Q15M PRN IV .DECREASED GLUCOSE; Start 02/08/19 at 09:00 Dextrose (D50w Syringe) 50 ml Q15M PRN IV .DECREASED GLUCOSE; Start 02/08/19 at 09:00 Senna (Senokot) 2 tab BID PO Last administered on 02/13/19 22:26; Admin Dose 2 TAB; Start 02/08/19 at 10:00 Methimazole (Tapazole) 30 mg BID PO Last administered on 02/14/19 08:41; Admin Dose 30 MG; Start 02/08/19 at 13:30 Diagnostic Test (Pha) (Accu-Chek) 1 ea 02 XX Last administered on 02/14/19 02:00; Admin Dose 1 EA; Start 02/10/19 at 02:00 Insulin Aspart (Novolog Insulin Pen) NOVOLOG *MODERATE* ALGORITHM WITH MEALS BEDTIME SC Last administered on 02/13/19 08:11; Admin Dose 6 UNIT; Start 02/09/19 at 17:35 Heparin Sodium (Porcine) (Heparin (5000 Units/1ml)) 5,000 unit BID SC Last administered on 02/14/19 08:47; Admin Dose 5,000 UNIT; Start 02/11/19 at 09:00 Acetaminophen/ Hydrocodone Bitart ([place] (5/325)) 1 tab Q6H PRN PO MODERATE PAIN LEVEL 4-6; Start 02/12/19 at 09:00 Insulin Glargine (Lantus) 20 units DAILY@0930 SC Last administered on 02/14/19 08:47; Admin Dose 20 UNITS; Start 02/14/19 at 09:30 Cefepime HCl 50 ml @ 100 mls/hr Q12 IVPB Last administered on 02/14/19at 10:02; Admin Dose 100 MLS/HR; Start 02/14/19 at 09:00 Ferric Sodium Gluconate Complex 125 mg/Sodium Chloride 110 ml @ 110 mls/hr DAILY@1300 IVPB Last administered on 02/14/19at 12:38; Admin Dose 110 MLS/HR; Start 02/14/19 at 13:00; Stop 02/18/19 at 13:59 Magnesium Sulfate 3 gm/Dextrose 106 ml @ 35.333 mls/ hr ONCE ONCE IVPB Last administered on 02/14/19at 14:53; Admin Dose 35.333 MLS/HR; Start 02/14/19 at 14:00; Stop 02/14/19 at 16:59 Nystatin (Nystatin Susp) 5 ml QID PO Last administered on 02/14/19at 13:50; Admin Dose 5 ML; Start 02/14/19 at 13:00; Stop 02/21/19 at 12:59 ANGEL CHAVEZ MD Feb 14, 2019 15:15
[2019-02-14 20:00] VITALS: BP 132/66; PULSE 110; RESP 18
[2019-02-14] MEDS: ATORVASTATIN 10 MG TAB PO SCH (22:41)
[2019-02-15 02:00] VITALS: BP 150/70; PULSE 110; RESP 18
[2019-02-15] MEDS: ACCU-CHEK XX SCH (02:00)
[2019-02-15] MEDS: ACETAMINOPHEN 325 MG TAB PO PRN ×2 (03:49→13:55)
[2019-02-15] MEDS: PANTOPRAZOLE (EC) 40 MG TAB PO SCH ×2 (06:11→18:01)
[2019-02-15] MEDS: INSULIN ASPART [NOVOLOG] 3 ML PEN SC SCH ×4 (08:00→21:00)
[2019-02-15 08:24] VITALS: BP 93/51; PULSE 99; RESP 18
[2019-02-15] MEDS: SENNA TAB PO SCH ×4 (09:00→21:24)
[2019-02-15 09:39] VITALS: BP 100/59; PULSE 108
[2019-02-15] MEDS: NYSTATIN SUSP 5 ML CUP PO SCH ×4 (09:46→20:59)
[2019-02-15] MEDS: AMOXICILLIN 500 MG CAP PO SCH ×2 (09:46→20:58)
[2019-02-15] MEDS: CLARITHROMYCIN 500 MG TAB PO SCH ×2 (09:47→20:58)
[2019-02-15] MEDS: SOD CHLORIDE 0.9% 1,000 ML IV SCH (09:48)
[2019-02-15] MEDS: METHIMAZOLE 5 MG TAB PO SCH ×2 (09:48→20:58)
[2019-02-15] MEDS: POTASSIUM CHLORIDE (SR) 20 MEQ TAB PO SCH ×2 (09:48→13:20)
[2019-02-15] MEDS: INSULIN GLARGINE [LANTus] (100 UNITS/ML) SYG SC SCH (10:02)
[2019-02-15] MEDS: PIPER-TAZO 3.375 GM IV (PMX) 100 ML IVPB SCH ×2 (13:16→18:01)
[2019-02-15] MEDS: BISMUTH SUBSALICYLATE 120 ML BTL PO SCH ×3 (13:19→21:00)
[2019-02-15] MEDS: SOD FERRIC GLUC COMPLX 125 MG in SOD CHLORIDE 0.9% 100 ML IVPB SCH (13:45)
[2019-02-15] MEDS ORDERED: FLUCONAZOLE 100 MG/50 ML (PMX) 50 ML IVPB SCH (14:00)
--- NOTE | 2019-02-15 14:10 | PN ---
Date/Time of Note Date/Time of Note DATE: 02/15/19 TIME: 14:10 Objective Vitals Vital Signs Date Temp Pulse Resp B/P (MAP) Pulse Ox O2 O2 Flow FiO2 Time Delivery Rate 02/15/19 100.5 13:55 02/15/19 108 100/59 09:39 (73) 02/15/19 18 98 Room Air 08:24 Intake and Output 02/14/19 02/14/19 02/15/19 1515:00 23:00 07:00 IntakeIntake Total 900 ml 626 ml OutputOutput Total 700 ml BalanceBalance 200 ml 626 ml Results Result Diagram: 02/15/19 1323 02/15/19 0522 Medications Medications Current Medications IV Flush (NS 3 ml) 3 ml PER PROTOCOL IV ; Start 02/06/19 at 15:00 Ondansetron HCl (Zofran Inj) 4 mg Q6H PRN IV NAUSEA/VOMITING Last administered on 02/14/19at 02:52; Admin Dose 4 MG; Start 02/06/19 at 15:00 Acetaminophen (Tylenol Tab) 650 mg Q6H PRN PO .PAIN 1-3 OR TEMP Last administered on 02/15/19at 13:55; Admin Dose 650 MG; Start 02/06/19 at 15:00 Atorvastatin Calcium (Lipitor) 10 mg DAILY@21 PO Last administered on 02/14/19at 22:41; Admin Dose 10 MG; Start 02/06/19 at 21:00 Miscellaneous Information 1 ea NOTE XX ; Start 02/06/19 at 16:00 Glucose (Glutose) 15 gm Q15M PRN PO DECREASED GLUCOSE; Start 02/06/19 at 16:00 Glucose (Glutose) 22.5 gm Q15M PRN PO DECREASED GLUCOSE; Start 02/06/19 at 16:00 Dextrose (D50w Syringe) 25 ml Q15M PRN IV DECREASED GLUCOSE; Start 02/06/19 at 16:00 Dextrose (D50w Syringe) 50 ml Q15M PRN IV DECREASED GLUCOSE; Start 02/06/19 at 16:00 Glucagon (Glucagen) 1 mg Q15M PRN IM DECREASED GLUCOSE; Start 02/06/19 at 16:00 Glucose (Glutose) 15 gm Q15M PRN BUCCAL DECREASED GLUCOSE; Start 02/06/19 at 16:00 Pantoprazole (Protonix Tab) 40 mg BID@0600,1800 PO Last administered on 02/15/19 06:11; Admin Dose 40 MG; Start 02/07/19 at 06:00 Amoxicillin (Amoxicillin) 1,000 mg BID PO Last administered on 02/15/19 09:46; Admin Dose 1,000 MG; Start 02/06/19 at 21:00; Stop 02/16/19 at 20:59 Clarithromycin (Biaxin) 500 mg BID PO Last administered on 02/15/19 09:47; Admin Dose 500 MG; Start 02/06/19 at 21:00; Stop 02/16/19 at 20:59 Insulin Aspart (Novolog Insulin Pen) 7 unit WITH MEALS SC Last administered on 02/14/19 17:39; Admin Dose 7 UNIT; Start 02/07/19 at 09:30; Status Hold Miscellaneous Information (* Miscellaneous Pharmacy Order) Treatment of Hypo glycemia: 1.BG 51... Per protocol XX ; Start 02/08/19 at 09:00 Dextrose (D50w Syringe) 25 ml Q15M PRN IV .DECREASED GLUCOSE; Start 02/08/19 at 09:00 Dextrose (D50w Syringe) 50 ml Q15M PRN IV .DECREASED GLUCOSE; Start 02/08/19 at 09:00 Senna (Senokot) 2 tab BID PO Last administered on 02/14/19 22:40; Admin Dose 2 TAB; Start 02/08/19 at 10:00 Methimazole (Tapazole) 30 mg BID PO Last administered on 02/15/19 09:48; Admin Dose 30 MG; Start 02/08/19 at 13:30 Diagnostic Test (Pha) (Accu-Chek) 1 ea 02 XX Last administered on 02/14/19 02:00; Admin Dose 1 EA; Start 02/10/19 at 02:00 Insulin Aspart (Novolog Insulin Pen) NOVOLOG *MODERATE* ALGORITHM WITH MEALS BEDTIME SC Last administered on 02/13/19 08:11; Admin Dose 6 UNIT; Start 02/09/19 at 17:35 Heparin Sodium (Porcine) (Heparin (5000 Units/1ml)) 5,000 unit BID SC Last administered on 02/14/19 22:48; Admin Dose 5,000 UNIT; Start 02/11/19 at 09:00; Status Hold Acetaminophen/ Hydrocodone Bitart ([place] (5/325)) 1 tab Q6H PRN PO MODERATE PAIN LEVEL 4-6; Start 02/12/19 at 09:00 Ferric Sodium Gluconate Complex 125 mg/Sodium Chloride 110 ml @ 110 mls/hr DAILY@1300 IVPB Last administered on 02/15/19at 13:45; Admin Dose 110 MLS/HR; Start 02/14/19 at 13:00; Stop 02/18/19 at 13:59 Nystatin (Nystatin Susp) 5 ml QID PO Last administered on 02/15/19at 13:16; Admin Dose 5 ML; Start 02/14/19 at 13:00; Stop 02/21/19 at 12:59 Insulin Glargine (Lantus) 10 units DAILY@0930 SC Last administered on 02/15/19at 10:02; Admin Dose 10 UNITS; Start 02/15/19 at 10:00 Sodium Chloride 1,000 ml @ 50 mls/hr Q20H IV Last administered on 02/15/19at 09:48; Admin Dose 50 MLS/HR; Start 02/15/19 at 09:30 Bismuth Subsalicylate (Pepto-Bismol) 30 ml QID PO Last administered on 02/15/19at 13:19; Admin Dose 30 ML; Start 02/15/19 at 10:03 Piperacillin Sod/ Tazobactam Sod 100 ml @ 200 mls/hr Q6 IVPB Last administered on 02/15/19at 13:16; Admin Dose 200 MLS/HR; Start 02/15/19 at 13:00 Fluconazole/ Sodium Chloride 50 ml @ 50 mls/hr Q24H IVPB ; Start 02/15/19 at 14:00 VTE Prophylaxis Risk score (from Nsg)>0 risk: 5 SCD applied (from Nsg): Yes Lines/Catheters IV Catheter Type: Collins in Place: No Assessment/Plan Hospital Course Subjective Patient's leg pain continues to improve, still with fever, and still complains of pain in throat, otherwise is alert and oriented, does not appear to be in significant distress Objective Physical exam General: Patient is laying in bed and answers questions appropriately Mentation: Patient is alert and oriented 4, Head: Normocephalic atraumatic Eyes: EOMI, pupils reactive to light Neck: Supple, nontender, midline Respiratory: Clear to auscultation bilaterally Cardiovascular: regular rate, no obvious murmurs Gastrointestinal: non-tender to palpation, bowel sounds heard. Neurological: Moves all extremities spontaneously Musculoskeletal: Pitting edema in lower extremity bilaterally, mild scrotal edema, Skin: Toe wound, bilaterally Assessment and plan Sepsis secondary to questionable UTI -UA not very conclusive however urine culture did grow some gram-negative dayron and fungal -IV fluid as tolerated -Broad-spectrum antibiotic, Zosyn as well as fluconazole restarted as patient continued to have fevers and signs of hypotension in the a.m. -Infectious disease consulted Hyperthyroidism -Continue medications per endocrinology -Graves' disease -Plan for radioactive ablation in 2 weeks Diabetes mellitus -Adjust insulin as needed with patient's diet, which is slightly lower than normal Anemia -Monitor very closely, -IV iron -Getting stat H&H as hemoglobin appears to have dropped again although patient is not having any apparent bleeding Acute kidney injury -Monitor -Resolved Positive H. pylori -Finished triple antibiotic Anasarca -Echo from November showed preserved ejection fraction, source unclear, low albumin -Monitor closely Questionable lung infiltrate -Questionable pneumonia, however chest x-ray no clear -ID on board Throat discomfort, possible thrush -Patient's throat is uncomfortable, patient states that it is almost like an irritation or internal issue -Continue nystatin swish and swallow as physical exam on previous days showed possible fungal infection Scrotal pain with swelling -Urology on board -Cannot rule out epididymitis -Continue antibiotics Disposition -Patient still meeting criteria for sepsis, continue IV antibiotics and monitor vital signs. HANNAH MELARA Feb 15, 2019 14:10
[2019-02-15 14:28] VITALS: BP 117/57; PULSE 107; RESP 18
--- NOTE | 2019-02-15 14:49 | CONS ---
Assessment/Plan Assessment/Plan Problems: (1) Graves' disease with exophthalmos Status: Chronic Comment: Remains thyrotoxic with suppressed TSH although Free T4 has shown some overall improvement. Continue methimazole at current dose until patient stable for ablation. May need to add propranolol for better rate control if HR continues elevated. Consultation Date/Type/Reason Admit Date/Time Feb 06, 2019 at 14:46 Initial Consult Date 02/14/19 Type of Consult Endocrine Reason for Consultation Graves Disease Requesting Provider: YOLI ZAMORANO Date/Time of Note DATE: 02/15/19 TIME: 14:43 24 HR Interval Summary Free Text/Dictation No new issues Exam/Review of Systems Exam Vitals Vital Signs Date Temp Pulse Resp B/P (MAP) Pulse Ox O2 O2 Flow FiO2 Time Delivery Rate 02/15/19 100.5 107 18 117/57 100 Room Air 14:28 (77) Intake and Output 02/14/19 02/14/19 02/15/19 1414:59 22:59 06:59 IntakeIntake Total 900 ml 626 ml OutputOutput Total 700 ml BalanceBalance 200 ml 626 ml Exam Patient resting comfortably Eyes: other (exophthalmos) Neck: thyromegaly Respiratory: normal air movement Cardiovascular: other (Tachycardia) Results Result Diagram: 02/15/19 1323 02/15/19 0522 Results 24hrs Laboratory Tests Test 02/14/19 17:09 02/14/19 22:37 02/15/19 05:22 02/15/19 08:18 Bedside Glucose 75 74 77 White Blood Count 5.2 Red Blood Count 2.90 L Hemoglobin 7.1 L Hematocrit 22.1 L Mean Corpuscular 76.2 L Volume Mean Corpuscular 24.5 L Hemoglobin Mean Corpuscular 32.1 Hemoglobin Concent Red Cell 20.4 H Distribution Width Platelet Count 104 L Mean Platelet Volume 9.6 Immature 0.600 H Granulocytes % Neutrophils % Segmented 70 Neutrophils % (Manual) Band Neutrophils % 5 H (Manual) Lymphocytes % Lymphocytes % 15 (Manual) Monocytes % Monocytes % (Manual) 9 Eosinophils % Eosinophils % 1 (Manual) Basophils % Nucleated Red Blood 0.0 Cells % Immature 0.030 Granulocytes # Neutrophils # Neutrophils # 3.7 (Manual) Band Neutrophils # 0.2 Lymphocytes (Manual) 0.7 L Lymphocytes # Monocytes # Monocytes # (Manual) 0.4 Eosinophils # Basophils # Nucleated Red Blood Cells # Platelet Estimate DECREASED Polychromasia 1+ Hypochromasia 1+ Poikilocytosis 1+ Anisocytosis 1+ Macrocytosis 1+ Sodium Level 126 L Potassium Level 3.0 L Chloride Level 89 L Carbon Dioxide Level 31 Anion Gap 6 Blood Urea Nitrogen 7 # Creatinine 0.57 L Est Glomerular > 60 Filtrat Rate mL/min Glucose Level 93 # Calcium Level 7.9 L Total Bilirubin 0.4 Direct Bilirubin 0.00 Indirect Bilirubin 0.4 Aspartate Amino 51 H Transf (AST/SGOT) Alanine 39 Aminotransferase (AL T/SGPT) Alkaline Phosphatase 113 Total Protein 5.3 L Albumin 2.1 L Globulin 3.20 Albumin/Globulin 0.65 Ratio Test 02/15/19 12:09 02/15/19 13:23 Bedside Glucose 109 Hemoglobin 7.8 L Hematocrit 24.4 L Medications Medication Current Medications IV Flush (NS 3 ml) 3 ml PER PROTOCOL IV ; Start 02/06/19 at 15:00 Ondansetron HCl (Zofran Inj) 4 mg Q6H PRN IV NAUSEA/VOMITING Last administered on 02/14/19at 02:52; Admin Dose 4 MG; Start 02/06/19 at 15:00 Acetaminophen (Tylenol Tab) 650 mg Q6H PRN PO .PAIN 1-3 OR TEMP Last administered on 02/15/19at 13:55; Admin Dose 650 MG; Start 02/06/19 at 15:00 Atorvastatin Calcium (Lipitor) 10 mg DAILY@21 PO Last administered on 02/14/19at 22:41; Admin Dose 10 MG; Start 02/06/19 at 21:00 Miscellaneous Information 1 ea NOTE XX ; Start 02/06/19 at 16:00 Glucose (Glutose) 15 gm Q15M PRN PO DECREASED GLUCOSE; Start 02/06/19 at 16:00 Glucose (Glutose) 22.5 gm Q15M PRN PO DECREASED GLUCOSE; Start 02/06/19 at 16:00 Dextrose (D50w Syringe) 25 ml Q15M PRN IV DECREASED GLUCOSE; Start 02/06/19 at 16:00 Dextrose (D50w Syringe) 50 ml Q15M PRN IV DECREASED GLUCOSE; Start 02/06/19 at 16:00 Glucagon (Glucagen) 1 mg Q15M PRN IM DECREASED GLUCOSE; Start 02/06/19 at 16:00 Glucose (Glutose) 15 gm Q15M PRN BUCCAL DECREASED GLUCOSE; Start 02/06/19 at 16:00 Pantoprazole (Protonix Tab) 40 mg BID@0600,1800 PO Last administered on 02/15/19at 06:11; Admin Dose 40 MG; Start 02/07/19 at 06:00 Amoxicillin (Amoxicillin) 1,000 mg BID PO Last administered on 02/15/19 09:46; Admin Dose 1,000 MG; Start 02/06/19 at 21:00; Stop 02/16/19 at 20:59 Clarithromycin (Biaxin) 500 mg BID PO Last administered on 02/15/19 09:47; Admin Dose 500 MG; Start 02/06/19 at 21:00; Stop 02/16/19 at 20:59 Insulin Aspart (Novolog Insulin Pen) 7 unit WITH MEALS SC Last administered on 02/14/19at 17:39; Admin Dose 7 UNIT; Start 02/07/19 at 09:30; Status Hold Miscellaneous Information (* Miscellaneous Pharmacy Order) Treatment of Hypoglycemia: 1.BG 51... Per protocol XX ; Start 02/08/19 at 09:00 Dextrose (D50w Syringe) 25 ml Q15M PRN IV .DECREASED GLUCOSE; Start 02/08/19 at 09:00 Dextrose (D50w Syringe) 50 ml Q15M PRN IV .DECREASED GLUCOSE; Start 02/08/19 at 09:00 Senna (Senokot) 2 tab BID PO Last administered on 02/14/19at 22:40; Admin Dose 2 TAB; Start 02/08/19 at 10:00 Methimazole (Tapazole) 30 mg BID PO Last administered on 02/15/19 09:48; Admin Dose 30 MG; Start 02/08/19 at 13:30 Diagnostic Test (Pha) (Accu-Chek) 1 ea 02 XX Last administered on 02/14/19at 02:00; Admin Dose 1 EA; Start 02/10/19 at 02:00 Insulin Aspart (Novolog Insulin Pen) NOVOLOG *MODERATE* ALGORITHM WITH MEALS BEDTIME SC Last administered on 02/13/19 08:11; Admin Dose 6 UNIT; Start 02/09/19 at 17:35 Heparin Sodium (Porcine) (Heparin (5000 Units/1ml)) 5,000 unit BID SC Last administered on 02/14/19 22:48; Admin Dose 5,000 UNIT; Start 02/11/19 at 09:00; Status Hold Acetaminophen/ Hydrocodone Bitart ([place] (5/325)) 1 tab Q6H PRN PO MODERATE PAIN LEVEL 4-6; Start 02/12/19 at 09:00 Ferric Sodium Gluconate Complex 125 mg/Sodium Chloride 110 ml @ 110 mls/hr DAILY@1300 IVPB Last administered on 02/15/19 13:45; Admin Dose 110 MLS/HR; Start 02/14/19 at 13:00; Stop 02/18/19 at 13:59 Nystatin (Nystatin Susp) 5 ml QID PO Last administered on 02/15/19 13:16; Admin Dose 5 ML; Start 02/14/19 at 13:00; Stop 02/21/19 at 12:59 Insulin Glargine (Lantus) 10 units DAILY@0930 SC Last administered on 02/15/19 10:02; Admin Dose 10 UNITS; Start 02/15/19 at 10:00 Sodium Chloride 1,000 ml @ 50 mls/hr Q20H IV Last administered on 02/15/19 09:48; Admin Dose 50 MLS/HR; Start 02/15/19 at 09:30 Bismuth Subsalicylate (Pepto-Bismol) 30 ml QID PO Last administered on 02/15/19 13:19; Admin Dose 30 ML; Start 02/15/19 at 10:03 Piperacillin Sod/ Tazobactam Sod 100 ml @ 200 mls/hr Q6 IVPB Last administered on 02/15/19 13:16; Admin Dose 200 MLS/HR; Start 02/15/19 at 13:00 Fluconazole/ Sodium Chloride 50 ml @ 50 mls/hr Q24H IVPB ; Start 02/15/19 at 14:00 RADHA ROA MD Feb 15, 2019 14:49
[2019-02-15 20:00] VITALS: BP 100/62; PULSE 123; RESP 19
[2019-02-15 20:54] VITALS: BP 101/53; PULSE 113; RESP 19
[2019-02-15] MEDS: ATORVASTATIN 10 MG TAB PO SCH (20:59)
[2019-02-15] MEDS: ONDANSETRON 4 MG INJ IV PRN (21:22)
--- NOTE | 2019-02-15 21:28 | CONS ---
Assessment/Plan Assessment/Plan Hospital Course (Demo Recall) - Recurrent SIRS (fever and tachycardia); previous ID w/u and imaging were negative; - s/p Vancomycin and Cefepime (12/11/2018-12/14/18) - Mild peno-scrotal edema with possible left epididymitis as suggested on the [facility] - on amoxicillin - H. 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 Penumo ESBL in sputum cx on 12/15/2018, likely colonizer - Hx EBV exposure - The following is negative: HIV, HIV viral load, procalc <0.10 on 12/12/18, Cryto AG, [place]-smear, malaria, resp virus panel, MTB complex, HSV 1&2 by PCR, CMV, WBC scan on 12/18/2018 Recommendations: - consider DC fluconazole and Zosyn (02/15/2019-) as pt has no urinary symptoms and prelim urine cx growing <10K GNR/C. albicans with mild pyuria - complete treatment for H. pylori with amoxicillin, clarithromycin and PPI x 14 days if not completed previously. - complete 7 days of nystatin (02/14/2019-) - hold off HCAP abx as CXR shows improvement Management d/w patient, pt's , RN Evens and with Dr. Tomas Consultation Date/Type/Reason Admit Date/Time Feb 06, 2019 at 14:46 Initial Consult Date 02/14/19 Requesting Provider: YOLI ZAMORANO Date/Time of Note DATE: 02/15/19 TIME: 21:03 24 HR Interval Summary Free Text/Dictation Tmax 101.5 F. Fever curve is improving. CXR shows resolution of LLL infiltrated. C/o intermittent fever and chills, nausea but no vomiting. Had normal BM today. Denies diarrhea. C/o throat discomfort. Denies dysuria, hematuria, SOB. Exam/Review of Systems Exam Vitals Vital Signs Date Temp Pulse Resp B/P (MAP) Pulse Ox O2 O2 Flow FiO2 Time Delivery Rate 02/15/19 98.6 113 19 101/53 99 Room Air 20:54 (69) Intake and Output 02/14/19 02/14/19 02/15/19 1515:00 23:00 07:00 IntakeIntake Total 900 ml 626 ml OutputOutput Total 700 ml BalanceBalance 200 ml 626 ml Constitutional: alert, oriented, well developed, other (lying on R side in NAD but pt is trying have emesis but only producing clear phlegm) Head: normocephalic, atraumatic Eyes: nl lids, other (exophthalmos noted) Neck: supple Respiratory: clear to auscultation, normal air movement Cardiovascular: nl pulses, other (regular rhythm, tachycardic) Gastrointestinal: soft, non-tender; No distended Genitourinary - Male: other (mild peno-scrotal swelling noted) Extremities: normal pulses, edema, pitting pedal edema Neurological: nl mental status, nl speech (accented), other (A&Ox4) Skin: nl turgor Results Result Diagram: 02/15/19 1323 02/15/19 0522 Results 24hrs Laboratory Tests Test 02/14/19 22:37 02/15/19 05:22 02/15/19 08:18 02/15/19 12:09 Bedside Glucose 74 77 109 White Blood Count 5.2 Red Blood Count 2.90 L Hemoglobin 7.1 L Hematocrit 22.1 L Mean Corpuscular 76.2 L Volume Mean Corpuscular 24.5 L Hemoglobin Mean Corpuscular 32.1 Hemoglobin Concent Red Cell 20.4 H Distribution Width Platelet Count 104 L Mean Platelet Volume 9.6 Immature 0.600 H Granulocytes % Neutrophils % Segmented 70 Neutrophils % (Manual) Band Neutrophils % 5 H (Manual) Lymphocytes % Lymphocytes % 15 (Manual) Monocytes % Monocytes % (Manual) 9 Eosinophils % Eosinophils % 1 (Manual) Basophils % Nucleated Red Blood 0.0 Cells % Immature 0.030 Granulocytes # Neutrophils # Neutrophils # 3.7 (Manual) Band Neutrophils # 0.2 Lymphocytes (Manual) 0.7 L Lymphocytes # Monocytes # Monocytes # (Manual) 0.4 Eosinophils # Basophils # Nucleated Red Blood Cells # Platelet Estimate DECREASED Polychromasia 1+ Hypochromasia 1+ Poikilocytosis 1+ Anisocytosis 1+ Macrocytosis 1+ Sodium Level 126 L Potassium Level 3.0 L Chloride Level 89 L Carbon Dioxide Level 31 Anion Gap 6 Blood Urea Nitrogen 7 # Creatinine 0.57 L Est Glomerular > 60 Filtrat Rate mL/min Glucose Level 93 # Calcium Level 7.9 L Total Bilirubin 0.4 Direct Bilirubin 0.00 Indirect Bilirubin 0.4 Aspartate Amino 51 H Transf (AST/SGOT) Alanine 39 Aminotransferase (AL T/SGPT) Alkaline Phosphatase 113 Total Protein 5.3 L Albumin 2.1 L Globulin 3.20 Albumin/Globulin 0.65 Ratio Test 02/15/19 13:23 02/15/19 17:10 02/15/19 20:57 Hemoglobin 7.8 L Hematocrit 24.4 L Bedside Glucose 82 173 Imaging Imaging CXR 02/15/2019: 1. Resolution of left lower lung zone infiltrate with the lung browne and pleural spaces now clear. 2. Otherwise, stable and unremarkable portable chest. Medications Medication Current Medications IV Flush (NS 3 ml) 3 ml PER PROTOCOL IV ; Start 02/06/19 at 15:00 Ondansetron HCl (Zofran Inj) 4 mg Q6H PRN IV NAUSEA/VOMITING Last administered on 02/14/19at 02:52; Admin Dose 4 MG; Start 02/06/19 at 15:00 Acetaminophen (Tylenol Tab) 650 mg Q6H PRN PO .PAIN 1-3 OR TEMP Last administered on 02/15/19at 13:55; Admin Dose 650 MG; Start 02/06/19 at 15:00 Atorvastatin Calcium (Lipitor) 10 mg DAILY@21 PO Last administered on 02/15/19at 20:59; Admin Dose 10 MG; Start 02/06/19 at 21:00 Miscellaneous Information 1 ea NOTE XX ; Start 02/06/19 at 16:00 Glucose (Glutose) 15 gm Q15M PRN PO DECREASED GLUCOSE; Start 02/06/19 at 16:00 Glucose (Glutose) 22.5 gm Q15M PRN PO DECREASED GLUCOSE; Start 02/06/19 at 16:00 Dextrose (D50w Syringe) 25 ml Q15M PRN IV DECREASED GLUCOSE; Start 02/06/19 at 16:00 Dextrose (D50w Syringe) 50 ml Q15M PRN IV DECREASED GLUCOSE; Start 02/06/19 at 16:00 Glucagon (Glucagen) 1 mg Q15M PRN IM DECREASED GLUCOSE; Start 02/06/19 at 16:00 Glucose (Glutose) 15 gm Q15M PRN BUCCAL DECREASED GLUCOSE; Start 02/06/19 at 16:00 Pantoprazole (Protonix Tab) 40 mg BID@0600,1800 PO Last administered on 02/15/19 18:01; Admin Dose 40 MG; Start 02/07/19 at 06:00 Amoxicillin (Amoxicillin) 1,000 mg BID PO Last administered on 02/15/19 20:58; Admin Dose 1,000 MG; Start 02/06/19 at 21:00; Stop 02/16/19 at 20:59 Clarithromycin (Biaxin) 500 mg BID PO Last administered on 02/15/19 20:58; A dmin Dose 500 MG; Start 02/06/19 at 21:00; Stop 02/16/19 at 20:59 Insulin Aspart (Novolog Insulin Pen) 7 unit WITH MEALS SC Last administered on 02/14/19at 17:39; Admin Dose 7 UNIT; Start 02/07/19 at 09:30; Status Hold Miscellaneous Information (* Miscellaneous Pharmacy Order) Treatment of Hypoglycemia: 1.BG 51... Per protocol XX ; Start 02/08/19 at 09:00 Dextrose (D50w Syringe) 25 ml Q15M PRN IV .DECREASED GLUCOSE; Start 02/08/19 at 09:00 Dextrose (D50w Syringe) 50 ml Q15M PRN IV .DECREASED GLUCOSE; Start 02/08/19 at 09:00 Senna (Senokot) 2 tab BID PO Last administered on 02/15/19 20:58; Admin Dose 2 TAB; Start 02/08/19 at 10:00 Methimazole (Tapazole) 30 mg BID PO Last administered on 02/15/19 20:58; Admin Dose 30 MG; Start 02/08/19 at 13:30 Diagnostic Test (Pha) (Accu-Chek) 1 ea XX Last administered on 02/14/19 02:00; Admin Dose 1 EA; Start 02/10/19 at 02:00 Insulin Aspart (Novolog Insulin Pen) NOVOLOG *MODERATE* ALGORITHM WITH MEALS BEDTIME SC Last administered on 02/13/19 08:11; Admin Dose 6 UNIT; Start 02/09/19 at 17:35 Heparin Sodium (Porcine) (Heparin (5000 Units/1ml)) 5,000 unit BID SC Last administered on 02/14/19 22:48; Admin Dose 5,000 UNIT; Start 02/11/19 at 09:00; Status Hold Acetaminophen/ Hydrocodone Bitart ([place] (5/325)) 1 tab Q6H PRN PO MODERATE PAIN LEVEL 4-6; Start 02/12/19 at 09:00 Ferric Sodium Gluconate Complex 125 mg/Sodium Chloride 110 ml @ 110 mls/hr DAILY@1300 IVPB Last administered on 02/15/19 13:45; Admin Dose 110 MLS/HR; Start 02/14/19 at 13:00; Stop 02/18/19 at 13:59 Nystatin (Nystatin Susp) 5 ml QID PO Last administered on 02/15/19 20:59; Admin Dose 5 ML; Start 02/14/19 at 13:00; Stop 02/21/19 at 12:59 Insulin Glargine (Lantus) 10 units DAILY@0930 SC Last administered on 02/15/19 10:02; Admin Dose 10 UNITS; Start 02/15/19 at 10:00 Sodium Chloride 1,000 ml @ 50 mls/hr Q20H IV Last administered on 02/15/19 09:48; Admin Dose 50 MLS/HR; Start 02/15/19 at 09:30; Stop 02/16/19 at 06:00 Bismuth Subsalicylate (Pepto-Bismol) 30 ml QID PO Last administered on 02/15/19 21:00; Admin Dose 30 ML; Start 02/15/19 at 10:03 Piperacillin Sod/ Tazobactam Sod 100 ml @ 200 mls/hr Q6 IVPB Last administered on 02/15/19 18:01; Admin Dose 200 MLS/HR; Start 02/15/19 at 13:00 Fluconazole/ Sodium Chloride 50 ml @ 50 mls/hr Q24H IVPB Last administered on 02/15/19 15:19; Admin Dose 50 MLS/HR; Start 02/15/19 at 14:00 NESTOR HUGHES NP Feb 15, 2019 21:16
[2019-02-15] MEDS ORDERED: SOD CHLORIDE 0.9% 250 ML IV ONE (23:30)
[2019-02-16] VITALS (22 sets, daily range): BP systolic 81–123; BP diastolic 49–75; PULSE 107–123; RESP 14–26
[2019-02-16] MEDS: PIPER-TAZO 3.375 GM IV (PMX) 100 ML IVPB SCH ×4 (00:50→17:40)
[2019-02-16] MEDS: ACCU-CHEK XX SCH (02:00)
[2019-02-16] MEDS: SOD CHLORIDE 0.9% 1,000 ML IV SCH (05:30)
[2019-02-16] MEDS: PANTOPRAZOLE (EC) 40 MG TAB PO SCH ×2 (06:10→17:39)
[2019-02-16] MEDS: INSULIN ASPART [NOVOLOG] 3 ML PEN SC SCH ×4 (08:00→20:18)
[2019-02-16] MEDS ORDERED: SOD CHLORIDE 0.9% 1,000 ML IV ONE ×2 (08:30→12:52)
[2019-02-16] MEDS: ACETAMINOPHEN 325 MG TAB PO PRN ×2 (08:37→20:28)
[2019-02-16] MEDS: NYSTATIN SUSP 5 ML CUP PO SCH ×5 (08:37→20:17)
[2019-02-16] MEDS: AMOXICILLIN 500 MG CAP PO SCH ×2 (08:37→13:08)
[2019-02-16] MEDS: CLARITHROMYCIN 500 MG TAB PO SCH ×2 (08:37→13:07)
[2019-02-16] MEDS: METHIMAZOLE 5 MG TAB PO SCH ×3 (08:37→22:09)
[2019-02-16] MEDS: ONDANSETRON 4 MG INJ IV PRN ×2 (08:41→11:54)
[2019-02-16] MEDS: BISMUTH SUBSALICYLATE 120 ML BTL PO SCH ×4 (11:55→20:17)
[2019-02-16] MEDS: INSULIN GLARGINE [LANTus] (100 UNITS/ML) SYG SC SCH (12:00)
[2019-02-16] MEDS ORDERED: MAGNESIUM SULFATE 4 GM/100 ML 100 ML IVPB ONE (13:30)
--- NOTE | 2019-02-16 14:12 | CONS ---
Assessment/Plan Assessment/Plan Hospital Course (Demo Recall) - Recurrent SIRS (fever and tachycardia), r/o sepsis; previous ID w/u and imaging were negative; - s/p Vancomycin and Cefepime (12/11/2018-12/14/18) - Mild peno-scrotal edema with possible left epididymitis as suggested on the [facility] - on amoxicillin - Mild pyuria - prelim urine cx growing <10K GNR and <10K C. albicans - H. 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 Penumo ESBL in sputum cx on 12/15/2018, likely colonizer - Hx EBV exposure - The following is negative: HIV, HIV viral load, procalc <0.10 on 12/12/18, Cryto AG, [place]-smear, malaria, resp virus panel, MTB complex, HSV 1&2 by PCR, CMV, WBC scan on 12/18/2018 Recommendations: - Send panculture, lactic acid, and procalcitonin - DC fluconazole d/t prolonged QTc and pt with asymptomatic mild funguria - Continue Zosyn (02/15/2019-) for now; consider adding vancomycin if pt deteriorates - complete treatment for H. pylori with amoxicillin, clarithromycin and PPI x 14 days if not completed previously. - complete 7 days of nystatin (02/14/2019-) Management d/w patient, pt's , pt's son via pt's 's cell phone, WEEDER Adriana, and with Dr. Tomas. Also d/w Dr. Browne. Critical care time spent: 45 min Consultation Date/Type/Reason Admit Date/Time Feb 06, 2019 at 14:46 Initial Consult Date 02/14/19 Requesting Provider: YOLI ZAMORANO Date/Time of Note DATE: 02/16/19 TIME: 13:58 24 HR Interval Summary Free Text/Dictation Pt was transferred to ICU this AM for hypotension (BP 81/49, HR 114, temp 101.0), Tylenol and IVF bolus was given with good effect. AM WBC is WNL. Tmax 101.3 F. Pt's son via pt's 's cell phone reports that pt has been having intermittent coughing spells, and spitting up clear frothy phlegm with subsequent drop in BP. C/o pleuritic chest discomfort. Denies SOB. No vomiting, diarrhea, dysuria, urinary urgency or frequency.. Exam/Review of Systems Exam Vitals Vital Signs Date Temp Pulse Resp B/P (MAP) Pulse Ox O2 O2 Flow FiO2 Time Delivery Rate 02/16/19 119 22 115/65 100 Room Air 13:00 (82) 02/16/19 99.0 11:57 Intake and Output 02/15/19 02/15/19 02/16/19 1515:00 23:00 07:00 IntakeIntake Total 850 ml 150 ml 650 ml OutputOutput Total 400 ml 325 ml BalanceBalance 450 ml -175 ml 650 ml Exam Constitutional: alert, oriented, well developed, other (lying in bed, coughing up clear frothy phlegm) Head: normocephalic, atraumatic Eyes: nl lids, other (exophthalmos noted) Neck: supple Respiratory: clear to auscultation, normal air movement Cardiovascular: nl pulses, other (regular rhythm, slightly tachycardic) Gastrointestinal: soft, non-tender; No distended Genitourinary - Male: other (mild peno-scrotal swelling noted) Extremities: normal pulses, edema, pitting pedal edema Neurological: nl mental status, nl speech (accented), other (A&Ox3) Skin: nl turgor, other (DTI of R 1st and 2nd toes and L big toe - nurses notes and photos reviewed in chart) Results Result Diagram: 02/16/19 0606 02/16/19 0606 Results 24hrs Laboratory Tests Test 02/15/19 17:10 02/15/19 20:57 02/16/19 06:05 02/16/19 06:06 Bedside Glucose 82 173 Magnesium Level 1.3 L White Blood Count 6.0 Red Blood Count 3.41 L Hemoglobin 8.4 L Hematocrit 26.2 L Mean Corpuscular 76.8 L Volume Mean Corpuscular 24.6 L Hemoglobin Mean Corpuscular 32.1 Hemoglobin Concent Red Cell 20.4 H Distribution Width Platelet Count 68 #L Mean Platelet Volume Immature 0.800 H Granulocytes % Neutrophils % Segmented 83 H Neutrophils % (Manual) Lymphocytes % Lymphocytes % 9 L (Manual) Reactive 1 H Lymphocytes % (Manual) Monocytes % Monocytes % 6 (Manual) Eosinophils % Basophils % Basophils % 1 (Manual) Nucleated Red 0.0 Blood Cells % Immature 0.050 H Granulocytes # Neutrophils # Lymphocytes 0.5 L (Manual) Lymphocytes # Reactive 0.0 Lymphocytes # Monocytes # Monocytes # 0.3 (Manual) Eosinophils # Basophils # Basophils # 0.0 (Manual) Nucleated Red Blood Cells # Platelet Estimate SIG DECREASED Polychromasia 3+ Poikilocytosis 1+ Anisocytosis 2+ Microcytosis 1+ Target Cells 1+ Ovalocytes 1+ Sodium Level 126 L Potassium Level 3.7 Chloride Level 89 L Carbon Dioxide 29 Level Anion Gap 8 Blood Urea 8 Nitrogen Creatinine 0.65 Est Glomerular > 60 Filtrat Rate mL/min Glucose Level 79 Calcium Level 8.1 L Total Bilirubin 0.2 Direct Bilirubin 0.00 Indirect Bilirubin 0.2 Aspartate Amino 70 H Transf (AST/SGOT) Alanine 23 Aminotransferase ( ALT/SGPT) Alkaline 113 Phosphatase Total Protein 5.5 L Albumin 2.2 L Globulin 3.30 H Albumin/Globulin 0.66 Ratio Test 02/16/19 08:07 02/16/19 11:56 Bedside Glucose 91 145 Imaging Imaging CXR 02/15/2019: 1. Resolution of left lower lung zone infiltrate with the lung browne and pleural spaces now clear. 2. Otherwise, stable and unremarkable portable chest. Medications Medication Current Medications IV Flush (NS 3 ml) 3 ml PER PROTOCOL IV ; Start 02/06/19 at 15:00 Ondansetron HCl (Zofran Inj) 4 mg Q6H PRN IV NAUSEA/VOMITING Last administered on 02/16/19at 11:54; Admin Dose 4 MG; Start 02/06/19 at 15:00 Acetaminophen (Tylenol Tab) 650 mg Q6H PRN PO .PAIN 1-3 OR TEMP Last administered on 02/16/19at 08:37; Admin Dose 650 MG; Start 02/06/19 at 15:00 Atorvastatin Calcium (Lipitor) 10 mg DAILY@21 PO Last administered on 02/15/19at 20:59; Admin Dose 10 MG; Start 02/06/19 at 21:00 Miscellaneous Information 1 ea NOTE XX ; Start 02/06/19 at 16:00 Glucose (Glutose) 15 gm Q15M PRN PO DECREASED GLUCOSE; Start 02/06/19 at 16:00 Glucose (Glutose) 22.5 gm Q15M PRN PO DECREASED GLUCOSE; Start 02/06/19 at 16:00 Dextrose (D50w Syringe) 25 ml Q15M PRN IV DECREASED GLUCOSE; Start 02/06/19 at 16:00 Dextrose (D50w Syringe) 50 ml Q15M PRN IV DECREASED GLUCOSE; Start 02/06/19 at 16:00 Glucagon (Glucagen) 1 mg Q15M PRN IM DECREASED GLUCOSE; Start 02/06/19 at 16:00 Glucose (Glutose) 15 gm Q15M PRN BUCCAL DECREASED GLUCOSE; Start 02/06/19 at 16:00 Pantoprazole (Protonix Tab) 40 mg BID@0600,1800 PO Last administered on 02/16/19at 06:10; Admin Dose 40 MG; Start 02/07/19 at 06:00 Amoxicillin (Amoxicillin) 1,000 mg BID PO Last administered on 02/16/19at 13:08; Admin Dose 1,000 MG; Start 02/06/19 at 21:00; Stop 02/16/19 at 20:59 Clarithromycin (Biaxin) 500 mg BID PO Last administered on 02/16/19at 13:07; Admin Dose 500 MG; Start 02/06/19 at 21:00; Stop 02/16/19 at 20:59 Insulin Aspart (Novolog Insulin Pen) 7 unit WITH MEALS SC Last administered on 02/14/19at 17:39; Admin Dose 7 UNIT; Start 02/07/19 at 09:30; Status Hold Miscellaneous Information (* Miscellaneous Pharmacy Order) Treatment of Hypoglycemia: 1.BG 51... Per protocol XX ; Start 02/08/19 at 09:00 Dextrose (D50w Syringe) 25 ml Q15M PRN IV .DECREASED GLUCOSE; Start 02/08/19 at 09:00 Dextrose (D50w Syringe) 50 ml Q15M PRN IV .DECREASED GLUCOSE; Start 02/08/19 at 09:00 Methimazole (Tapazole) 30 mg BID PO Last administered on 02/16/19 13:08; Admin Dose 30 MG; Start 02/08/19 at 13:30 Diagnostic Test (Pha) (Accu-Chek) 1 ea 02 XX Last administered on 02/14/19 02:00; Admin Dose 1 EA; Start 02/10/19 at 02:00 Insulin Aspart (Novolog Insulin Pen) NOVOLOG *MODERATE* ALGORITHM WITH MEALS BEDTIME SC Last administered on 02/16/19 12:01; Admin Dose 2 UNIT; Start 02/09/19 at 17:35 Heparin Sodium (Porcine) (Heparin (5000 Units/1ml)) 5,000 unit BID SC Last administered on 02/14/19 22:48; Admin Dose 5,000 UNIT; Start 02/11/19 at 09:00; Status Hold Acetaminophen/ Hydrocodone Bitart ([place] (5/325)) 1 tab Q6H PRN PO MODERATE PAIN LEVEL 4-6; Start 02/12/19 at 09:00 Ferric Sodium Gluconate Complex 125 mg/Sodium Chloride 110 ml @ 110 mls/hr DAILY@1300 IVPB Last administered on 02/15/19 13:45; Admin Dose 110 MLS/HR; Start 02/14/19 at 13:00; Stop 02/18/19 at 13:59 Nystatin (Nystatin Susp) 5 ml QID PO Last administered on 02/16/19 13:07; Admin Dose 5 ML; Start 02/14/19 at 13:00; Stop 02/21/19 at 12:59 Insulin Glargine (Lantus) 10 units DAILY@0930 SC Last administered on 02/16/19 12:00; Admin Dose 10 UNITS; Start 02/15/19 at 10:00 Bismuth Subsalicylate (Pepto-Bismol) 30 ml QID PO Last administered on 02/16/19 13:16; Admin Dose 30 ML; Start 02/15/19 at 10:03 Piperacillin Sod/ Tazobactam Sod 100 ml @ 200 mls/hr Q6 IVPB Last administered on 02/16/19 11:54; Admin Dose 200 MLS/HR; Start 02/15/19 at 13:00 Fluconazole/ Sodium Chloride 50 ml @ 50 mls/hr Q24H IVPB Last administered on 02/15/19 15:19; Admin Dose 50 MLS/HR; Start 02/15/19 at 14:00 Magnesium Sulfate 100 ml @ 25 mls/hr ONCE ONCE IVPB Last administered on 02/16/19at 13:18; Admin Dose 25 MLS/HR; Start 02/16/19 at 13:30; Stop 02/16/19 at 17:29 Senna (Senokot) 2 tab BID PO ; Start 02/16/19 at 21:00 NESTOR HUGHES NP Feb 16, 2019 14:12
[2019-02-16] MEDS: SOD FERRIC GLUC COMPLX 125 MG in SOD CHLORIDE 0.9% 100 ML IVPB SCH (14:38)
--- NOTE | 2019-02-16 19:03 | PN ---
Date/Time of Note Date/Time of Note DATE: 02/16/19 TIME: 18:58 Assessment/Plan VTE Prophylaxis Risk score (from Nsg)>0 risk: 5 SCD applied (from Ns): Yes Pharmacological prophylaxis: NA/contraindicated Pharm contraindication: low risk/ambulating Lines/Catheters IV Catheter Type (from Nrsg): [place] Urinary Cath still in place: No Assessment/Plan Hospital Course SIRS with hypotension secondary to occult infection and/or hyperthyroidism -Patient was transferred to the ICU for hypotension and lactic acidosis, BP now stable and lactic acid has normalized transferred back to telemetry -UA not very conclusive urine culture growing less than 10,000 colonies -IV fluid as tolerated -ID managing antibiotics, patient currently on Zosyn and treatment for H. pylori -Patient has had an extensive workup with ID in the past with no clear source of infection Hyperthyroidism -Continue medications per endocrinology -Graves' disease -Plan for radioactive ablation in 2 weeks Diabetes mellitus -Adjust insulin as needed with patient's diet, which is slightly lower than normal Anemia -Monitor very closely, -IV iron -Getting stat H&H as hemoglobin appears to have dropped again although patient is not having any apparent bleeding Acute kidney injury -Monitor -Resolved Positive H. pylori -On therapy Anasarca -Echo from November showed preserved ejection fraction, source unclear, low albumin -Monitor closely Questionable lung infiltrate -Questionable pneumonia, however chest x-ray no clear -ID on board Throat discomfort, possible thrush -Patient's throat is uncomfortable, patient states that it is almost like an irritation or internal issue -Continue nystatin swish and swallow as physical exam on previous days showed possible fungal infection Scrotal pain with swelling -Urology on board -Cannot rule out epididymitis -Continue antibiotics Prophylaxis: SCDs Disposition -Patient still meeting criteria for sepsis, continue IV antibiotics and monitor vital signs. Result Diagram: 02/16/19 0606 02/16/19 0606 Results 24hrs Laboratory Tests Test 02/15/19 20:57 02/16/19 06:05 02/16/19 06:06 02/16/19 08:07 Bedside Glucose 173 91 Magnesium Level 1.3 L White Blood Count 6.0 Red Blood Count 3.41 L Hemoglobin 8.4 L Hematocrit 26.2 L Mean Corpuscular 76.8 L Volume Mean Corpuscular 24.6 L Hemoglobin Mean Corpuscular 32.1 Hemoglobin Concent Red Cell 20.4 H Distribution Width Platelet Count 68 #L Mean Platelet Volume Immature 0.800 H Granulocytes % Neutrophils % Segmented 83 H Neutrophils % (Manual) Lymphocytes % Lymphocytes % 9 L (Manual) Reactive 1 H Lymphocytes % (Manual) Monocytes % Monocytes % 6 (Manual) Eosinophils % Basophils % Basophils % 1 (Manual) Nucleated Red 0.0 Blood Cells % Immature 0.050 H Granulocytes # Neutrophils # Lymphocytes 0.5 L (Manual) Lymphocytes # Reactive 0.0 Lymphocytes # Monocytes # Monocytes # 0.3 (Manual) Eosinophils # Basophils # Basophils # 0.0 (Manual) Nucleated Red Blood Cells # Platelet Estimate SIG DECREASED Polychromasia 3+ Poikilocytosis 1+ Anisocytosis 2+ Microcytosis 1+ Target Cells 1+ Ovalocytes 1+ Sodium Level 126 L Potassium Level 3.7 Chloride Level 89 L Carbon Dioxide 29 Level Anion Gap 8 Blood Urea 8 Nitrogen Creatinine 0.65 Est Glomerular > 60 Filtrat Rate mL/min Glucose Level 79 Calcium Level 8.1 L Total Bilirubin 0.2 Direct Bilirubin 0.00 Indirect Bilirubin 0.2 Aspartate Amino 70 H Transf (AST/SGOT) Alanine 23 Aminotransferase ( ALT/SGPT) Alkaline 113 Phosphatase Total Protein 5.5 L Albumin 2.2 L Globulin 3.30 H Albumin/Globulin 0.66 Ratio Test 02/16/19 11:56 02/16/19 16:30 02/16/19 17:41 Bedside Glucose 145 83 Lactic Acid Level 1.6 Subjective 24 Hr Interval Summary Constitutional: no complaints Exam/Review of Systems Exam Vitals Vital Signs Date Temp Pulse Resp B/P (MAP) Pulse Ox O2 O2 Flow FiO2 Time Delivery Rate 02/16/19 108 17:30 02/16/19 18 112/74 97 16:30 (87) 02/16/19 98.8 Room Air 16:00 Intake and Output 02/15/19 02/15/19 02/16/19 1515:00 23:00 07:00 IntakeIntake Total 850 ml 150 ml 650 ml OutputOutput Total 400 ml 325 ml BalanceBalance 450 ml -175 ml 650 ml Constitutional: alert, oriented Respiratory: clear to auscultation Cardiovascular: regular rate and rhythm Gastrointestinal: soft; No distended Musculoskeletal: nl extremities to inspection Results Results 24hrs Laboratory Tests Test 02/15/19 20:57 02/16/19 06:05 02/16/19 06:06 02/16/19 08:07 Bedside Glucose 173 91 Magnesium Level 1.3 L White Blood Count 6.0 Red Blood Count 3.41 L Hemoglobin 8.4 L Hematocrit 26.2 L Mean Corpuscular 76.8 L Volume Mean Corpuscular 24.6 L Hemoglobin Mean Corpuscular 32.1 Hemoglobin Concent Red Cell 20.4 H Distribution Width Platelet Count 68 #L Mean Platelet Volume Immature 0.800 H Granulocytes % Neutrophils % Segmented 83 H Neutrophils % (Manual) Lymphocytes % Lymphocytes % 9 L (Manual) Reactive 1 H Lymphocytes % (Manual) Monocytes % Monocytes % 6 (Manual) Eosinophils % Basophils % Basophils % 1 (Manual) Nucleated Red 0.0 Blood Cells % Immature 0.050 H Granulocytes # Neutrophils # Lymphocytes 0.5 L (Manual) Lymphocytes # Reactive 0.0 Lymphocytes # Monocytes # Monocytes # 0.3 (Manual) Eosinophils # Basophils # Basophils # 0.0 (Manual) Nucleated Red Blood Cells # Platelet Estimate SIG DECREASED Polychromasia 3+ Poikilocytosis 1+ Anisocytosis 2+ Microcytosis 1+ Target Cells 1+ Ovalocytes 1+ Sodium Level 126 L Potassium Level 3.7 Chloride Level 89 L Carbon Dioxide 29 Level Anion Gap 8 Blood Urea 8 Nitrogen Creatinine 0.65 Est Glomerular > 60 Filtrat Rate mL/min Glucose Level 79 Calcium Level 8.1 L Total Bilirubin 0.2 Direct Bilirubin 0.00 Indirect Bilirubin 0.2 Aspartate Amino 70 H Transf (AST/SGOT) Alanine 23 Aminotransferase ( ALT/SGPT) Alkaline 113 Phosphatase Total Protein 5.5 L Albumin 2.2 L Globulin 3.30 H Albumin/Globulin 0.66 Ratio Test 02/16/19 11:56 02/16/19 16:30 02/16/19 17:41 Bedside Glucose 145 83 Lactic Acid Level 1.6 Medications Medication Current Medications IV Flush (NS 3 ml) 3 ml PER PROTOCOL IV ; Start 02/06/19 at 15:00 Ondansetron HCl (Zofran Inj) 4 mg Q6H PRN IV NAUSEA/VOMITING Last administered on 02/16/19at 11:54; Admin Dose 4 MG; Start 02/06/19 at 15:00 Acetaminophen (Tylenol Tab) 650 mg Q6H PRN PO .PAIN 1-3 OR TEMP Last administered on 02/16/19at 08:37; Admin Dose 650 MG; Start 02/06/19 at 15:00 Atorvastatin Calcium (Lipitor) 10 mg DAILY@21 PO Last administered on 02/15/19at 20:59; Admin Dose 10 MG; Start 02/06/19 at 21:00 Miscellaneous Information 1 ea NOTE XX ; Start 02/06/19 at 16:00 Glucose (Glutose) 15 gm Q15M PRN PO DECREASED GLUCOSE; Start 02/06/19 at 16:00 Glucose (Glutose) 22.5 gm Q15M PRN PO DECREASED GLUCOSE; Start 02/06/19 at 16:00 Dextrose (D50w Syringe) 25 ml Q15M PRN IV DECREASED GLUCOSE; Start 02/06/19 at 16:00 Dextrose (D50w Syringe) 50 ml Q15M PRN IV DECREASED GLUCOSE; Start 02/06/19 at 16:00 Glucagon (Glucagen) 1 mg Q15M PRN IM DECREASED GLUCOSE; Start 02/06/19 at 16:00 Glucose (Glutose) 15 gm Q15M PRN BUCCAL DECREASED GLUCOSE; Start 02/06/19 at 16:00 Pantoprazole (Protonix Tab) 40 mg BID@0600,1800 PO Last administered on 02/16/19at 17:39; Admin Dose 40 MG; Start 02/07/19 at 06:00 Amoxicillin (Amoxicillin) 1,000 mg BID PO Last administered on 02/16/19at 13:08; Admin Dose 1,000 MG; Start 02/06/19 at 21:00; Stop 02/16/19 at 20:59 Clarithromycin (Biaxin) 500 mg BID PO Last administered on 02/16/19at 13:07; Admin Dose 500 MG; Start 02/06/19 at 21:00; Stop 02/16/19 at 20:59 Insulin Aspart (Novolog Insulin Pen) 7 unit WITH MEALS SC Last administered on 02/14/19at 17:39; Admin Dose 7 UNIT; Start 02/07/19 at 09:30; Status Hold Miscellaneous Information (* Miscellaneous Pharmacy Order) Treatment of Hypoglycemia: 1.BG 51... Per protocol XX ; Start 02/08/19 at 09:00 Dextrose (D50w Syringe) 25 ml Q15M PRN IV .DECREASED GLUCOSE; Start 02/08/19 at 09:00 Dextrose (D50w Syringe) 50 ml Q15M PRN IV .DECREASED GLUCOSE; Start 02/08/19 at 09:00 Methimazole (Tapazole) 30 mg BID PO Last administered on 02/16/19 13:08; Admin Dose 30 MG; Start 02/08/19 at 13:30 Diagnostic Test (Pha) (Accu-Chek) 1 ea 02 XX Last administered on 02/14/19 02:00; Admin Dose 1 EA; Start 02/10/19 at 02:00 Insulin Aspart (Novolog Insulin Pen) NOVOLOG *MODERATE* ALGORITHM WITH MEALS BEDTIME SC Last administered on 02/16/19at 12:01; Admin Dose 2 UNIT; Start 02/09/19 at 17:35 Heparin Sodium (Porcine) (Heparin (5000 Units/1ml)) 5,000 unit BID SC Last administered on 02/14/19 22:48; Admin Dose 5,000 UNIT; Start 02/11/19 at 09:00; Status Hold Acetaminophen/ Hydrocodone Bitart ([place] (5/325)) 1 tab Q6H PRN PO MODERATE PAIN LEVEL 4-6; Start 02/12/19 at 09:00 Ferric Sodium Gluconate Complex 125 mg/Sodium Chloride 110 ml @ 110 mls/hr DAILY@1300 IVPB Last administered on 02/16/19 14:38; Admin Dose 110 MLS/HR; Start 02/14/19 at 13:00; Stop 02/18/19 at 13:59 Nystatin (Nystatin Susp) 5 ml QID PO Last administered on 02/16/19 17:39; Admin Dose 5 ML; Start 02/14/19 at 13:00; Stop 02/21/19 at 12:59 Insulin Glargine (Lantus) 10 units DAILY@0930 SC Last administered on 02/16/19 12:00; Admin Dose 10 UNITS; Start 02/15/19 at 10:00 Bismuth Subsalicylate (Pepto-Bismol) 30 ml QID PO Last administered on 02/16/19 17:39; Admin Dose 30 ML; Start 02/15/19 at 10:03 Senna (Senokot) 2 tab BID PO ; Start 02/16/19 at 21:00 Piperacillin Sod/ Tazobactam Sod 100 ml @ 200 mls/hr Q6 IVPB Last administered on 4/14/19at 17:40; Admin Dose 200 MLS/HR; Start 02/16/19 at 18:00 RODRIGUEZ DOTY Feb 16, 2019 19:03
[2019-02-16] MEDS: ATORVASTATIN 10 MG TAB PO SCH (20:17)
[2019-02-16] MEDS: SENNA TAB PO SCH (20:17)
[2019-02-16] MEDS ORDERED: METHIMAZOLE 5 MG TAB PO SCH (21:00)
--- NOTE | 2019-02-16 21:45 | CONS ---
Assessment/Plan Assessment/Plan Problems: (1) Graves' disease with exophthalmos Status: Chronic Comment: OM METHIMAZOLE. REMAINS THYROTOXIC. PATIENT NEEDS THYROID ABLATION Consultation Date/Type/Reason Admit Date/Time Feb 06, 2019 at 14:46 Initial Consult Date 02/14/19 Type of Consult Endocrine Reason for Consultation GRAVES THYROTOXICOSIS Requesting Provider: YOLI ZAMORANO Date/Time of Note DATE: 02/16/19 TIME: 21:41 24 HR Interval Summary Free Text/Dictation WAS TRANSFERRED TO ICU OVERNIIGHT SECONDARY TO HYPOTENSIVE EVENT. NOW BACK IN TELEMETRY Exam/Review of Systems Exam Vitals Vital Signs Date Temp Pulse Resp B/P (MAP) Pulse Ox O2 O2 Flow FiO2 Time Delivery Rate 02/16/19 109 20:00 02/16/19 98.7 19 104/58 97 Room Air 19:55 (73) Intake and Output 02/15/19 02/15/19 02/16/19 1515:00 23:00 07:00 IntakeIntake Total 850 ml 150 ml 650 ml OutputOutput Total 400 ml 325 ml BalanceBalance 450 ml -175 ml 650 ml Results Result Diagram: 02/16/19 0606 02/16/19 0606 Results 24hrs Laboratory Tests Test 02/16/19 06:05 02/16/19 06:06 02/16/19 08:07 02/16/19 11:56 Magnesium Level 1.3 L White Blood Count 6.0 Red Blood Count 3.41 L Hemoglobin 8.4 L Hematocrit 26.2 L Mean Corpuscular 76.8 L Volume Mean Corpuscular 24.6 L Hemoglobin Mean Corpuscular 32.1 Hemoglobin Concent Red Cell 20.4 H Distribution Width Platelet Count 68 #L Mean Platelet Volume Immature 0.800 H Granulocytes % Neutrophils % Segmented 83 H Neutrophils % (Manual) Lymphocytes % Lymphocytes % 9 L (Manual) Reactive 1 H Lymphocytes % (Manual) Monocytes % Monocytes % 6 (Manual) Eosinophils % Basophils % Basophils % 1 (Manual) Nucleated Red 0.0 Blood Cells % Immature 0.050 H Granulocytes # Neutrophils # Lymphocytes 0.5 L (Manual) Lymphocytes # Reactive 0.0 Lymphocytes # Monocytes # Monocytes # 0.3 (Manual) Eosinophils # Basophils # Basophils # 0.0 (Manual) Nucleated Red Blood Cells # Platelet Estimate SIG DECREASED Polychromasia 3+ Poikilocytosis 1+ Anisocytosis 2+ Microcytosis 1+ Target Cells 1+ Ovalocytes 1+ Sodium Level 126 L Potassium Level 3.7 Chloride Level 89 L Carbon Dioxide 29 Level Anion Gap 8 Blood Urea 8 Nitrogen Creatinine 0.65 Est Glomerular > 60 Filtrat Rate mL/min Glucose Level 79 Calcium Level 8.1 L Total Bilirubin 0.2 Direct Bilirubin 0.00 Indirect Bilirubin 0.2 Aspartate Amino 70 H Transf (AST/SGOT) Alanine 23 Aminotransferase ( ALT/SGPT) Alkaline 113 Phosphatase Total Protein 5.5 L Albumin 2.2 L Globulin 3.30 H Albumin/Globulin 0.66 Ratio Bedside Glucose 91 145 Test 02/16/19 16:30 02/16/19 17:41 02/16/19 20:16 Lactic Acid Level 1.6 Bedside Glucose 83 84 Medications Medication Current Medications IV Flush (NS 3 ml) 3 ml PER PROTOCOL IV ; Start 02/06/19 at 15:00 Ondansetron HCl (Zofran Inj) 4 mg Q6H PRN IV NAUSEA/VOMITING Last administered on 02/16/19at 11:54; Admin Dose 4 MG; Start 02/06/19 at 15:00 Acetaminophen (Tylenol Tab) 650 mg Q6H PRN PO .PAIN 1-3 OR TEMP Last administered on 02/16/19at 20:28; Admin Dose 650 MG; Start 02/06/19 at 15:00 Atorvastatin Calcium (Lipitor) 10 mg DAILY@21 PO Last administered on 02/16/19at 20:17; Admin Dose 10 MG; Start 02/06/19 at 21:00 Miscellaneous Information 1 ea NOTE XX ; Start 02/06/19 at 16:00 Glucose (Glutose) 15 gm Q15M PRN PO DECREASED GLUCOSE; Start 02/06/19 at 16:00 Glucose (Glutose) 22.5 gm Q15M PRN PO DECREASED GLUCOSE; Start 02/06/19 at 16:00 Dextrose (D50w Syringe) 25 ml Q15M PRN IV DECREASED GLUCOSE; Start 02/06/19 at 16:00 Dextrose (D50w Syringe) 50 ml Q15M PRN IV DECREASED GLUCOSE; Start 02/06/19 at 16:00 Glucagon (Glucagen) 1 mg Q15M PRN IM DECREASED GLUCOSE; Start 02/06/19 at 16:00 Glucose (Glutose) 15 gm Q15M PRN BUCCAL DECREASED GLUCOSE; Start 02/06/19 at 16: 00 Pantoprazole (Protonix Tab) 40 mg BID@0600,1800 PO Last administered on 02/16/19at 17:39; Admin Dose 40 MG; Start 02/07/19 at 06:00 Insulin Aspart (Novolog Insulin Pen) 7 unit WITH MEALS SC Last administered on 02/14/19at 17:39; Admin Dose 7 UNIT; Start 02/07/19 at 09:30; Status Hold Miscellaneous Information (* Miscellaneous Pharmacy Order) Treatment of Hypoglycemia: 1.BG 51... Per protocol XX ; Start 02/08/19 at 09:00 Dextrose (D50w Syringe) 25 ml Q15M PRN IV .DECREASED GLUCOSE; Start 02/08/19 at 09:00 Dextrose (D50w Syringe) 50 ml Q15M PRN IV .DECREASED GLUCOSE; Start 02/08/19 at 09:00 Methimazole (Tapazole) 30 mg BID PO Last administered on 02/16/19at 13:08; Admin Dose 30 MG; Start 02/08/19 at 13:30 Diagnostic Test (Pha) (Accu-Chek) 1 ea 02 XX Last administered on 02/14/19at 02:00; Admin Dose 1 EA; Start 02/10/19 at 02:00 Insulin Aspart (Novolog Insulin Pen) NOVOLOG *MODERATE* ALGORITHM WITH MEALS BEDTIME SC Last administered on 02/16/19 12:01; Admin Dose 2 UNIT; Start 02/09/19 at 17:35 Heparin Sodium (Porcine) (Heparin (5000 Units/1ml)) 5,000 unit BID SC Last administered on 02/14/19at 22:48; Admin Dose 5,000 UNIT; Start 02/11/19 at 09:00; Status Hold Acetaminophen/ Hydrocodone Bitart ([place] (5/325)) 1 tab Q6H PRN PO MODERATE PAIN LEVEL 4-6; Start 02/12/19 at 09:00 Ferric Sodium Gluconate Complex 125 mg/Sodium Chloride 110 ml @ 110 mls/hr DAILY@1300 IVPB Last administered on 02/16/19at 14:38; Admin Dose 110 MLS/HR; Start 02/14/19 at 13:00; Stop 02/18/19 at 13:59 Nystatin (Nystatin Susp) 5 ml QID PO Last administered on 02/16/19 20:17; Admin Dose 5 ML; Start 02/14/19 at 13:00; Stop 02/21/19 at 12:59 Insulin Glargine (Lantus) 10 units DAILY@0930 SC Last administered on 02/16/19 12:00; Admin Dose 10 UNITS; Start 02/15/19 at 10:00 Bismuth Subsalicylate (Pepto-Bismol) 30 ml QID PO Last administered on 02/16/19 20:17; Admin Dose 30 ML; Start 02/15/19 at 10:03 Senna (Senokot) 2 tab BID PO Last administered on 02/16/19 20:17; Admin Dose 2 TAB; Start 02/16/19 at 21:00 Piperacillin Sod/ Tazobactam Sod 100 ml @ 200 mls/hr Q6 IVPB Last administered on 02/16/19 17:40; Admin Dose 200 MLS/HR; Start 02/16/19 at 18:00 RADHA ROA MD Feb 16, 2019 21:45
[2019-02-17] VITALS (10 sets, daily range): BP systolic 102–127; BP diastolic 55–69; PULSE 98–142; RESP 17–19
[2019-02-17] MEDS: PIPER-TAZO 3.375 GM IV (PMX) 100 ML IVPB SCH ×5 (00:32→23:29)
[2019-02-17] MEDS: ACCU-CHEK XX SCH (01:05)
[2019-02-17] MEDS ORDERED: SOD CHLORIDE 0.9% 500 ML IV ONE (04:30)
[2019-02-17] MEDS ORDERED: ADENOSINE 3 MG/ML SYRINGE IV ONE ×2 (04:55→07:00)
[2019-02-17] MEDS ORDERED: ADENOSINE 6 MG INJ IV SCH (05:14)
[2019-02-17] MEDS ORDERED: METOPROLOL 5 MG INJ IV ONE (05:15)
[2019-02-17] MEDS: DILTIAZEM-D5W 125MG/125ML DRIP 125 ML IV SCH ×4 (05:16→22:30)
[2019-02-17] MEDS ORDERED: ADENOSINE 6 MG INJ IV ONE (05:20)
[2019-02-17] MEDS: PANTOPRAZOLE (EC) 40 MG TAB PO SCH ×2 (06:26→17:32)
[2019-02-17] MEDS ORDERED: METOPROLOL 5 MG INJ ONE (07:00)
[2019-02-17] MEDS: INSULIN ASPART [NOVOLOG] 3 ML PEN SC SCH ×4 (07:55→20:58)
[2019-02-17] MEDS: METHIMAZOLE 5 MG TAB PO SCH (08:28)
[2019-02-17] MEDS: SENNA TAB PO SCH ×2 (08:28→20:04)
[2019-02-17] MEDS: BISMUTH SUBSALICYLATE 120 ML BTL PO SCH ×3 (08:28→17:27)
[2019-02-17] MEDS: NYSTATIN SUSP 5 ML CUP PO SCH ×4 (08:28→20:05)
[2019-02-17] MEDS: INSULIN GLARGINE [LANTus] (100 UNITS/ML) SYG SC SCH (08:37)
[2019-02-17] MEDS: SOD FERRIC GLUC COMPLX 125 MG in SOD CHLORIDE 0.9% 100 ML IVPB SCH (13:25)
--- NOTE | 2019-02-17 15:40 | RADRPT ---
Vent Rate: 112 bpm RR Interval: 536 msec NM Interval: 175 msec QRS Duration: 80 msec QT Interval: 352 msec QTC Interval: 481 msec P-R-T [place]: 56 - 1 - 63 degrees Sinus tachycardia...rate> 99 Low voltage, precordial leads...precordial leads <1.0mV Borderline prolonged QT interval...QTc >475mS Electronically Signed By: Myles Lockhart
--- NOTE | 2019-02-17 15:46 | PN ---
Date/Time of Note Date/Time of Note DATE: 02/17/19 TIME: 15:43 Assessment/Plan VTE Prophylaxis Risk score (from Ns)>0 risk: 4 SCD applied (from Ns): Yes Pharmacological prophylaxis: heparin Lines/Catheters IV Catheter Type (from [facility]): Peripheral IV Urinary Cath still in place: No Reason Cath still needed: urinary retention Assessment/Plan Hospital Course 59 yo male with hyperthyroidism and pancytopenias Hyperthyroid: - Continue methimazole, artur blockers for tachycardia - Awaits ablation Cytopenias: - Flow cytometry suggested myeloid dysplasia, will contact hematology for consideration of marrow biopsy Result Diagram: 02/17/19 0544 02/17/19 0544 Results 24hrs Laboratory Tests Test 02/16/19 16:30 02/16/19 17:41 02/16/19 20:16 02/17/19 05:44 Lactic Acid Level 1.6 Bedside Glucose 83 84 White Blood Count 7.7 # Red Blood Count 3.96 L Hemoglobin 9.7 L Hematocrit 31.2 L Mean Corpuscular 78.8 L Volume Mean Corpuscular 24.5 L Hemoglobin Mean Corpuscular 31.1 L Hemoglobin Concent Red Cell 20.5 H Distribution Width Platelet Count 76 L Mean Platelet Volume 10.9 H Immature 0.800 H Granulocytes % Neutrophils % 77.2 H Lymphocytes % 12.5 L Monocytes % 8.9 Eosinophils % 0.3 Basophils % 0.3 Nucleated Red Blood 0.0 Cells % Immature 0.060 H Granulocytes # Neutrophils # 6.0 Lymphocytes # 1.0 Monocytes # 0.7 Eosinophils # 0.0 Basophils # 0.0 Nucleated Red Blood 0.0 Cells # Sodium Level 130 L Potassium Level 3.3 L Chloride Level 93 L Carbon Dioxide Level 29 Anion Gap 8 Blood Urea Nitrogen 6 L Creatinine 0.71 Est Glomerular > 60 Filtrat Rate mL/min Glucose Level 54 #L Calcium Level 8.4 Magnesium Level 1.7 Total Bilirubin 0.4 Direct Bilirubin 0.00 Indirect Bilirubin 0.4 Aspartate Amino 62 H Transf (AST/SGOT) Alanine 39 Aminotransferase (AL T/SGPT) Alkaline Phosphatase 167 H Total Protein 5.8 L Albumin 2.4 L Globulin 3.40 H Albumin/Globulin 0.70 Ratio Test 02/17/19 08:01 02/17/19 12:02 02/17/19 13:32 Bedside Glucose 94 69 L 79 Subjective 24 Hr Interval Summary Free Text/Dictation Mild tachycardia persists Awaiting ablatoin Exam/Review of Systems Exam Vitals Vital Signs Date Temp Pulse Resp B/P (MAP) Pulse Ox O2 O2 Flow FiO2 Time Delivery Rate 02/17/19 110 12:02 02/17/19 99.9 18 102/57 98 11:22 (72) 02/17/19 Room Air 04:00 Intake and Output 02/16/19 02/16/19 02/17/19 1515:00 23:00 07:00 IntakeIntake Total 2695 ml 500 ml 100 ml OutputOutput Total 600 ml 0 ml BalanceBalance 2095 ml 500 ml 100 ml Constitutional: alert, oriented, well developed Psych: no complaints, nl mood/affect Head: normocephalic, atraumatic Eyes: nl conjunctiva, EOMI, nl lids, nl sclera, PERRL ENMT: nl external ears & nose, nl lips & teeth, nl nasal mucosa & septum Neck: supple, non-tender Respiratory: clear to auscultation, normal air movement Cardiovascular: regular rate and rhythm, nl pulses Gastrointestinal: soft, nl liver, spleen, non-tender Musculoskeletal: nl extremities to inspection, nl gait and stance Extremities: normal pulses Neurological: [employer]IT[employer]IAN INS[employer] II-XII intact, nl mental status, nl speech, nl strength Skin: nl turgor; No rash or lesions Lymph: nl lymph nodes Results Results 24hrs Laboratory Tests Test 02/16/19 16:30 02/16/19 17:41 02/16/19 20:16 02/17/19 05:44 Lactic Acid Level 1.6 Bedside Glucose 83 84 White Blood Count 7.7 # Red Blood Count 3.96 L Hemoglobin 9.7 L Hematocrit 31.2 L Mean Corpuscular 78.8 L Volume Mean Corpuscular 24.5 L Hemoglobin Mean Corpuscular 31.1 L Hemoglobin Concent Red Cell 20.5 H Distribution Width Platelet Count 76 L Mean Platelet Volume 10.9 H Immature 0.800 H Granulocytes % Neutrophils % 77.2 H Lymphocytes % 12.5 L Monocytes % 8.9 Eosinophils % 0.3 Basophils % 0.3 Nucleated Red Blood 0.0 Cells % Immature 0.060 H Granulocytes # Neutrophils # 6.0 Lymphocytes # 1.0 Monocytes # 0.7 Eosinophils # 0.0 Basophils # 0.0 Nucleated Red Blood 0.0 Cells # Sodium Level 130 L Potassium Level 3.3 L Chloride Level 93 L Carbon Dioxide Level 29 Anion Gap 8 Blood Urea Nitrogen 6 L Creatinine 0.71 Est Glomerular > 60 Filtrat Rate mL/min Glucose Level 54 #L Calcium Level 8.4 Magnesium Level 1.7 Total Bilirubin 0.4 Direct Bilirubin 0.00 Indirect Bilirubin 0.4 Aspartate Amino 62 H Transf (AST/SGOT) Alanine 39 Aminotransferase (AL T/SGPT) Alkaline Phosphatase 167 H Total Protein 5.8 L Albumin 2.4 L Globulin 3.40 H Albumin/Globulin 0.70 Ratio Test 02/17/19 08:01 02/17/19 12:02 02/17/19 13:32 Bedside Glucose 94 69 L 79 Medications Medication Current Medications IV Flush (NS 3 ml) 3 ml PER PROTOCOL IV ; Start 02/06/19 at 15:00 Ondansetron HCl (Zofran Inj) 4 mg Q6H PRN IV NAUSEA/VOMITING Last administered on 02/16/19at 11:54; Admin Dose 4 MG; Start 02/06/19 at 15:00 Acetaminophen (Tylenol Tab) 650 mg Q6H PRN PO .PAIN 1-3 OR TEMP Last administered on 02/16/19at 20:28; Admin Dose 650 MG; Start 02/06/19 at 15:00 Atorvastatin Calcium (Lipitor) 10 mg DAILY@21 PO Last administered on 02/16/19at 20:17; Admin Dose 10 MG; Start 02/06/19 at 21:00 Miscellaneous Information 1 ea NOTE XX ; Start 02/06/19 at 16:00 Glucose (Glutose) 15 gm Q15M PRN PO DECREASED GLUCOSE; Start 02/06/19 at 16:00 Glucose (Glutose) 22.5 gm Q15M PRN PO DECREASED GLUCOSE; Start 02/06/19 at 16:00 Dextrose (D50w Syringe) 25 ml Q15M PRN IV DECREASED GLUCOSE; Start 02/06/19 at 16:00 Dextrose (D50w Syringe) 50 ml Q15M PRN IV DECREASED GLUCOSE; Start 02/06/19 at 16:00 Glucagon (Glucagen) 1 mg Q15M PRN IM DECREASED GLUCOSE; Start 02/06/19 at 16:00 Glucose (Glutose) 15 gm Q15M PRN BUCCAL DECREASED GLUCOSE; Start 02/06/19 at 16:00 Pantoprazole (Protonix Tab) 40 mg BID@0600,1800 PO Last administered on 02/17/19 06:26; Admin Dose 40 MG; Start 02/07/19 at 06:00 Insulin Aspart (Novolog Insulin Pen) 7 unit WITH MEALS SC Last administered on 02/14/19 17:39; Admin Dose 7 UNIT; Start 02/07/19 at 09:30; Status Hold Miscellaneous Information (* Miscellaneous Pharmacy Order) Treatment of Hypoglycemia: 1.BG 51... Per protocol XX ; Start 02/08/19 at 09:00 Dextrose (D50w Syringe) 25 ml Q15M PRN IV .DECREASED GLUCOSE; Start 02/08/19 at 09:00 Dextrose (D50w Syringe) 50 ml Q15M PRN IV .DECREASED GLUCOSE; Start 02/08/19 at 09:00 Methimazole (Tapazole) 30 mg BID PO Last administered on 02/17/19 08:28; Admin Dose 30 MG; Start 02/08/19 at 13:30 Diagnostic Test (Pha) (Accu-Chek) 1 ea 02 XX Last administered on 02/14/19 02:00; Admin Dose 1 EA; Start 02/10/19 at 02:00 Insulin Aspart (Novolog Insulin Pen) NOVOLOG *MODERATE* ALGORITHM WITH MEALS BEDTIME SC Last administered on 02/16/19at 12:01; Admin Dose 2 UNIT; Start 02/09/19 at 17:35 Heparin Sodium (Porcine) (Heparin (5000 Units/1ml)) 5,000 unit BID SC Last administered on 02/14/19at 22:48; Admin Dose 5,000 UNIT; Start 02/11/19 at 09:00; Status Hold Acetaminophen/ Hydrocodone Bitart ([place] (5/325)) 1 tab Q6H PRN PO MODERATE PAIN LEVEL 4-6; Start 02/12/19 at 09:00 Ferric Sodium Gluconate Complex 125 mg/Sodium Chloride 110 ml @ 110 mls/hr DAILY@1300 IVPB Last administered on 02/17/19 13:25; Admin Dose 110 MLS/HR; Start 02/14/19 at 13:00; Stop 02/18/19 at 13:59 Nystatin (Nystatin Susp) 5 ml QID PO Last administered on 02/17/19 13:25; Admin Dose 5 ML; Start 02/14/19 at 13:00; Stop 02/21/19 at 12:59 Insulin Glargine (Lantus) 10 units DAILY@0930 SC Last administered on 02/17/19 08:37; Admin Dose 10 UNITS; Start 02/15/19 at 10:00 Bismuth Subsalicylate (Pepto-Bismol) 30 ml QID PO Last administered on 02/17/19 13:25; Admin Dose 30 ML; Start 02/15/19 at 10:03 Senna (Senokot) 2 tab BID PO Last administered on 02/17/19 08:28; Admin Dose 2 TAB; Start 02/16/19 at 21:00 Piperacillin Sod/ Tazobactam Sod 100 ml @ 200 mls/hr Q6 IVPB Last administered on 02/17/19 12:03; Admin Dose 200 MLS/HR; Start 02/16/19 at 18:00 Diltiazem HCl 125 ml @ 5 mls/hr TITRATE IV Last administered on 02/17/19 13 :28; Admin Dose 10 MLS/HR; Start 02/17/19 at 05:00 KIRK AREVALO MD Feb 17, 2019 15:46
--- NOTE | 2019-02-17 16:08 | CONS ---
Assessment/Plan Assessment/Plan Hospital Course (Demo Recall) - Recurrent SIRS (fever and tachycardia), r/o sepsis; previous ID w/u and imaging were negative; - s/p Vancomycin and Cefepime (12/11/2018-12/14/18) - Mild peno-scrotal edema with possible left epididymitis as suggested on the FAR[facility]NA - on amoxicillin - Mild pyuria - urine cx grew <10K Citrobacter Koseri and <10K C. Albicans; pt is asymptomatic - H. 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 Penumo ESBL in sputum cx on 12/15/2018, likely colonizer - Hx EBV exposure - The following is negative: HIV, HIV viral load, procalc <0.10 on 12/12/18, Cryto AG, [place]-smear, malaria, resp virus panel, MTB complex, HSV 1&2 by PCR, CMV, WBC scan on 12/18/2018 Recommendations: - F/u panculture (blood, urine and sputum cx in process) and procalcitonin from 02/16/2019 - Continue Zosyn (02/15/2019-) for now; consider adding vancomycin if pt deteriorates; s/p fluconazole (02/15/2019) which was dc'd d/t prolonged QTc and pt with asymptomatic mild funguria - Complete treatment for H. pylori with amoxicillin, clarithromycin and PPI (02/06/2019-); ordered to extend course from 10 to 14 days - Complete 7 days of nystatin (02/14/2019-) Management d/w patient, ADDISON Young, and with Dr. Chris Consultation Date/Type/Reason Admit Date/Time Feb 06, 2019 at 14:46 Initial Consult Date 02/14/19 Requesting Provider: YOLI ZAMORANO Date/Time of Note DATE: 02/17/19 TIME: 16:04 24 HR Interval Summary Free Text/Dictation Pt had SVT with HR up to 160's this AM, now on Cardizem gtt per d/w nursing. Pt sates he feels "better than yesterday". Less chills. Appetite remains poor. No vomiting, diarrhea or dysuria. Currently no pain or SOB. Exam/Review of Systems Exam Vitals Vital Signs Date Temp Pulse Resp B/P (MAP) Pulse Ox O2 O2 Flow FiO2 Time Delivery Rate 02/17/19 113 16:00 02/17/19 98.0 17 108/64 97 15:57 (79) 02/17/19 Room Air 04:00 Intake and Output 02/16/19 02/16/19 02/17/19 1515:00 23:00 07:00 IntakeIntake Total 2695 ml 500 ml 100 ml OutputOutput Total 600 ml 0 ml BalanceBalance 2095 ml 500 ml 100 ml Exam Constitutional: alert, oriented, well developed, other (lying in bed with towel covering his head in NAD) Head: normocephalic, atraumatic Eyes: nl lids, other (exophthalmos noted) ENMT: mucosa pink and most (improved thrush) Neck: supple Respiratory: clear to auscultation, normal air movement, other (on room air) Cardiovascular: nl pulses, other (regular rhythm, tachycardic) Gastrointestinal: soft, non-tender; No distended Genitourinary - Male: other (mild peno-scrotal swelling noted) Extremities: normal pulses, edema, pitting pedal edema Neurological: nl mental status, nl speech (accented), other (A&Ox3) Skin: nl turgor, other (DTI of R 1st and 2nd toes and L big toe - nurses notes and photos reviewed in chart) Results Result Diagram: 02/17/19 0544 02/17/19 0544 Results 24hrs Laboratory Tests Test 02/16/19 16:30 02/16/19 17:41 02/16/19 20:16 02/17/19 05:44 Lactic Acid Level 1.6 Bedside Glucose 83 84 White Blood Count 7.7 # Red Blood Count 3.96 L Hemoglobin 9.7 L Hematocrit 31.2 L Mean Corpuscular 78.8 L Volume Mean Corpuscular 24.5 L Hemoglobin Mean Corpuscular 31.1 L Hemoglobin Concent Red Cell 20.5 H Distribution Width Platelet Count 76 L Mean Platelet Volume 10.9 H Immature 0.800 H Granulocytes % Neutrophils % 77.2 H Lymphocytes % 12.5 L Monocytes % 8.9 Eosinophils % 0.3 Basophils % 0.3 Nucleated Red Blood 0.0 Cells % Immature 0.060 H Granulocytes # Neutrophils # 6.0 Lymphocytes # 1.0 Monocytes # 0.7 Eosinophils # 0.0 Basophils # 0.0 Nucleated Red Blood 0.0 Cells # Sodium Level 130 L Potassium Level 3.3 L Chloride Level 93 L Carbon Dioxide Level 29 Anion Gap 8 Blood Urea Nitrogen 6 L Creatinine 0.71 Est Glomerular > 60 Filtrat Rate mL/min Glucose Level 54 #L Calcium Level 8.4 Magnesium Level 1.7 Total Bilirubin 0.4 Direct Bilirubin 0.00 Indirect Bilirubin 0.4 Aspartate Amino 62 H Transf (AST/SGOT) Alanine 39 Aminotransferase (AL T/SGPT) Alkaline Phosphatase 167 H Total Protein 5.8 L Albumin 2.4 L Globulin 3.40 H Albumin/Globulin 0.70 Ratio Test 02/17/19 08:01 02/17/19 12:02 02/17/19 13:32 Bedside Glucose 94 69 L 79 Medications Medication Current Medications IV Flush (NS 3 ml) 3 ml PER PROTOCOL IV ; Start 02/06/19 at 15:00 Ondansetron HCl (Zofran Inj) 4 mg Q6H PRN IV NAUSEA/VOMITING Last administered on 02/16/19at 11:54; Admin Dose 4 MG; Start 02/06/19 at 15:00 Acetaminophen (Tylenol Tab) 650 mg Q6H PRN PO .PAIN 1-3 OR TEMP Last admin istered on 02/16/19at 20:28; Admin Dose 650 MG; Start 02/06/19 at 15:00 Atorvastatin Calcium (Lipitor) 10 mg DAILY@21 PO Last administered on 02/16/19at 20:17; Admin Dose 10 MG; Start 02/06/19 at 21:00 Miscellaneous Information 1 ea NOTE XX ; Start 02/06/19 at 16:00 Glucose (Glutose) 15 gm Q15M PRN PO DECREASED GLUCOSE; Start 02/06/19 at 16:00 Glucose (Glutose) 22.5 gm Q15M PRN PO DECREASED GLUCOSE; Start 02/06/19 at 16:00 Dextrose (D50w Syringe) 25 ml Q15M PRN IV DECREASED GLUCOSE; Start 02/06/19 at 16:00 Dextrose (D50w Syringe) 50 ml Q15M PRN IV DECREASED GLUCOSE; Start 02/06/19 at 16:00 Glucagon (Glucagen) 1 mg Q15M PRN IM DECREASED GLUCOSE; Start 02/06/19 at 16:00 Glucose (Glutose) 15 gm Q15M PRN BUCCAL DECREASED GLUCOSE; Start 02/06/19 at 16:00 Pantoprazole (Protonix Tab) 40 mg BID@0600,1800 PO Last administered on 02/17/19at 06:26; Admin Dose 40 MG; Start 02/07/19 at 06:00 Insulin Aspart (Novolog Insulin Pen) 7 unit WITH MEALS SC Last administered on 02/14/19at 17:39; Admin Dose 7 UNIT; Start 02/07/19 at 09:30; Status Hold Miscellaneous Information (* Miscellaneous Pharmacy Order) Treatment of Hypoglycemia: 1.BG 51... Per protocol XX ; Start 02/08/19 at 09:00 Dextrose (D50w Syringe) 25 ml Q15M PRN IV .DECREASED GLUCOSE; Start 02/08/19 at 09:00 Dextrose (D50w Syringe) 50 ml Q15M PRN IV .DECREASED GLUCOSE; Start 02/08/19 at 09:00 Methimazole (Tapazole) 30 mg BID PO Last administered on 02/17/19at 08:28; Admin Dose 30 MG; Start 02/08/19 at 13:30 Diagnostic Test (Pha) (Accu-Chek) 1 ea 02 XX Last administered on 02/14/19at 02:00; Admin Dose 1 EA; Start 02/10/19 at 02:00 Insulin Aspart (Novolog Insulin Pen) NOVOLOG *MODERATE* ALGORITHM WITH MEALS BEDTIME SC Last administered on 02/16/19at 12:01; Admin Dose 2 UNIT; Start 02/09/19 at 17:35 Heparin Sodium (Porcine) (Heparin (5000 Units/1ml)) 5,000 unit BID SC Last administered on 02/14/19at 22:48; Admin Dose 5,000 UNIT; Start 02/11/19 at 09:00; Status Hold Acetaminophen/ Hydrocodone Bitart ([place] (5/325)) 1 tab Q6H PRN PO MODERATE PAIN LEVEL 4-6; Start 02/12/19 at 09:00 Ferric Sodium Gluconate Complex 125 mg/Sodium Chloride 110 ml @ 110 mls/hr DAILY@1300 IVPB Last administered on 02/17/19 13:25; Admin Dose 110 MLS/HR; Start 02/14/19 at 13:00; Stop 02/18/19 at 13:59 Nystatin (Nystatin Susp) 5 ml QID PO Last administered on 02/17/19 13:25; Admin Dose 5 ML; Start 02/14/19 at 13:00; Stop 02/21/19 at 12:59 Bismuth Subsalicylate (Pepto-Bismol) 30 ml QID PO Last administered on 02/17/19 13:25; Admin Dose 30 ML; Start 02/15/19 at 10:03 Senna (Senokot) 2 tab BID PO Last administered on 02/17/19 08:28; Admin Dose 2 TAB; Start 02/16/19 at 21:00 Piperacillin Sod/ Tazobactam Sod 100 ml @ 200 mls/hr Q6 IVPB Last administered on 02/17/19 12:03; Admin Dose 200 MLS/HR; Start 02/16/19 at 18:00 Diltiazem HCl 125 ml @ 5 mls/hr TITRATE IV Last administered on 02/17/19 13:28; Admin Dose 10 MLS/HR; Start 02/17/19 at 05:00 Insulin Glargine (Lantus) 5 units DAILY@0930 SC ; Start 02/18/19 at 09:30 NESTOR HUGHES NP Feb 17, 2019 16:08
[2019-02-17] MEDS: BISMUTH SUBSALICYLATE 240 ML BTL PO SCH ×2 (17:30→20:11)
[2019-02-17] MEDS: CLARITHROMYCIN 500 MG TAB PO SCH (19:00)
[2019-02-17] MEDS: ATORVASTATIN 10 MG TAB PO SCH (20:04)
[2019-02-17] MEDS: AMOXICILLIN 500 MG CAP PO SCH (20:04)
[2019-02-17] MEDS: ACETAMINOPHEN 325 MG TAB PO PRN (20:05)
[2019-02-17] MEDS ORDERED: POTASSIUM CHLORIDE (SR) 20 MEQ TAB PO ONE (21:30)
[2019-02-18] VITALS (12 sets, daily range): BP systolic 96–110; BP diastolic 51–61; PULSE 89–111; RESP 18–20
[2019-02-18] MEDS: ACCU-CHEK XX SCH (01:26)
[2019-02-18] MEDS: PIPER-TAZO 3.375 GM IV (PMX) 100 ML IVPB SCH ×4 (05:28→23:36)
[2019-02-18] MEDS: PANTOPRAZOLE (EC) 40 MG TAB PO SCH ×2 (05:28→17:16)
[2019-02-18] MEDS: INSULIN ASPART [NOVOLOG] 3 ML PEN SC SCH ×4 (07:55→20:08)
[2019-02-18] MEDS: NYSTATIN SUSP 5 ML CUP PO SCH ×4 (08:37→20:08)
[2019-02-18] MEDS: BISMUTH SUBSALICYLATE 240 ML BTL PO SCH ×4 (08:37→20:08)
[2019-02-18] MEDS: AMOXICILLIN 500 MG CAP PO SCH ×2 (08:38→20:08)
[2019-02-18] MEDS: CLARITHROMYCIN 500 MG TAB PO SCH ×2 (08:38→20:08)
[2019-02-18] MEDS: SENNA TAB PO SCH ×2 (08:38→20:08)
[2019-02-18] MEDS: INSULIN GLARGINE [LANTus] (100 UNITS/ML) SYG SC SCH (08:50)
--- NOTE | 2019-02-18 11:42 | CONS ---
Assessment/Plan Assessment/Plan Hospital Course (Demo Recall) - Recurrent SIRS (fever and tachycardia), r/o sepsis; previous ID w/u and imaging were negative; - s/p Vancomycin and Cefepime (12/11/2018-12/14/18) - Mild peno-scrotal edema with possible left epididymitis as suggested on the [facility] - on amoxicillin - Mild pyuria - urine cx grew <10K Citrobacter Koseri and <10K C. Albicans; pt is asymptomatic - H. 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 Penumo ESBL in sputum cx on 12/15/2018, likely colonizer - Hx EBV exposure - The following is negative: HIV, HIV viral load, procalc <0.10 on 12/12/18, Cryto AG, [place]-smear, malaria, resp virus panel, MTB complex, HSV 1&2 by PCR, CMV, WBC scan on 12/18/2018 Recommendations: - Complete treatment for H. pylori with amoxicillin, clarithromycin and PPI (02/06/2019-); ordered to extend course from 10 to 14 days - Complete 7 days of nystatin (02/14/2019-) Consultation Date/Type/Reason Admit Date/Time Feb 06, 2019 at 14:46 Initial Consult Date 02/14/19 Type of Consult id Requesting Provider: YOLI ZAMORANO Date/Time of Note DATE: 02/18/19 TIME: 11:41 24 HR Interval Summary Free Text/Dictation still having low grade fevers Exam/Review of Systems Exam Vitals Vital Signs Date Temp Pulse Resp B/P (MAP) Pulse Ox O2 O2 Flow FiO2 Time Delivery Rate 02/18/19 100.4 99 18 106/58 99 11:35 (74) 02/17/19 Room Air 04:00 Intake and Output 02/17/19 02/17/19 02/18/19 1515:00 23:00 07:00 IntakeIntake Total 1410 ml 650 ml 325 ml BalanceBalance 1410 ml 650 ml 325 ml Exam sleeping peacefully Results Result Diagram: 02/17/19 0544 02/17/19 0544 Results 24hrs Laboratory Tests Test 02/17/19 12:02 02/17/19 13:32 02/17/19 17:29 02/17/19 20:31 Bedside Glucose 69 L 79 77 63 L Test 02/17/19 22:32 02/18/19 08:28 Bedside Glucose 125 112 Medications Medication Current Medications IV Flush (NS 3 ml) 3 ml PER PROTOCOL IV ; Start 02/06/19 at 15:00 Ondansetron HCl (Zofran Inj) 4 mg Q6H PRN IV NAUSEA/VOMITING Last administered on 02/16/19at 11:54; Admin Dose 4 MG; Start 02/06/19 at 15:00 Acetaminophen (Tylenol Tab) 650 mg Q6H PRN PO .PAIN 1-3 OR TEMP Last administered on 02/17/19at 20:05; Admin Dose 650 MG; Start 02/06/19 at 15:00 Atorvastatin Calcium (Lipitor) 10 mg DAILY@21 PO Last administered on 02/17/19at 20:04; Admin Dose 10 MG; Start 02/06/19 at 21:00 Miscellaneous Information 1 ea NOTE XX ; Start 02/06/19 at 16:00 Glucose (Glutose) 15 gm Q15M PRN PO DECREASED GLUCOSE; Start 02/06/19 at 16:00 Glucose (Glutose) 22.5 gm Q15M PRN PO DECREASED GLUCOSE; Start 02/06/19 at 16:00 Dextrose (D50w Syringe) 25 ml Q15M PRN IV DECREASED GLUCOSE; Start 02/06/19 at 16:00 Dextrose (D50w Syringe) 50 ml Q15M PRN IV DECREASED GLUCOSE; Start 02/06/19 at 16:00 Glucagon (Glucagen) 1 mg Q15M PRN IM DECREASED GLUCOSE; Start 02/06/19 at 16:00 Glucose (Glutose) 15 gm Q15M PRN BUCCAL DECREASED GLUCOSE; Start 02/06/19 at 16:00 Pantoprazole (Protonix Tab) 40 mg BID@0600,1800 PO Last administered on 02/18/19 05:28; Admin Dose 40 MG; Start 02/07/19 at 06:00 Insulin Aspart (Novolog Insulin Pen) 7 unit WITH MEALS SC Last administered on 02/14/19 17:39; Admin Dose 7 UNIT; Start 02/07/19 at 09:30; Status Hold Miscellaneous Information (* Miscellaneous Pharmacy Order) Treatment of Hypoglycemia: 1.BG 51... Per protocol XX ; Start 02/08/19 at 09:00 Dextrose (D50w Syringe) 25 ml Q15M PRN IV .DECREASED GLUCOSE; Start 02/08/19 at 09:00 Dextrose (D50w Syringe) 50 ml Q15M PRN IV .DECREASED GLUCOSE; Start 02/08/19 at 09:00 Methimazole (Tapazole) 30 mg BID PO Last administered on 02/17/19 08:28; Admin Dose 30 MG; Start 02/08/19 at 13:30; Status Hold Diagnostic Test (Pha) (Accu-Chek) 1 ea 02 XX Last administered on 02/14/19at 02:00; Admin Dose 1 EA; Start 02/10/19 at 02:00 Insulin Aspart (Novolog Insulin Pen) NOVOLOG *MODERATE* ALGORITHM WITH MEALS BEDTIME SC Last administered on 02/16/19 12:01; Admin Dose 2 UNIT; Start 02/09/19 at 17:35 Heparin Sodium (Porcine) (Heparin (5000 Units/1ml)) 5,000 unit BID SC Last administered on 02/14/19 22:48; Admin Dose 5,000 UNIT; Start 02/11/19 at 09:00; Status Hold Acetaminophen/ Hydrocodone Bitart ([place] (5/325)) 1 tab Q6H PRN PO MODERATE PAIN LEVEL 4-6; Start 02/12/19 at 09:00 Ferric Sodium Gluconate Complex 125 mg/Sodium Chloride 110 ml @ 110 mls/hr DAILY@1300 IVPB Last administered on 02/17/19 13:25; Admin Dose 110 MLS/HR; Start 02/14/19 at 13:00; Stop 02/18/19 at 13:59 Nystatin (Nystatin Susp) 5 ml QID PO Last administered on 02/18/19at 08:37; Admin Dose 5 ML; Start 02/14/19 at 13:00; Stop 02/21/19 at 12:59 Senna (Senokot) 2 tab BID PO Last administered on 02/18/19 08:38; Admin Dose 2 TAB; Start 02/16/19 at 21:00 Piperacillin Sod/ Tazobactam Sod 100 ml @ 200 mls/hr Q6 IVPB Last administered on 02/18/19 05:28; Admin Dose 200 MLS/HR; Start 02/16/19 at 18:00 Diltiazem HCl 125 ml @ 5 mls/hr TITRATE IV Last administered on 02/17/19 22:30; Admin Dose 15 MLS/HR; Start 02/17/19 at 05:00 Insulin Glargine (Lantus) 5 units DAILY@0930 SC Last administered on 02/18/19 08:50; Admin Dose 5 UNITS; Start 02/18/19 at 09:30 Bismuth Subsalicylate (Pepto-Bismol) 30 ml QID PO Last administered on 02/18/19 08:37; Admin Dose 30 ML; Start 02/17/19 at 17:30 Amoxicillin (Amoxicillin) 1,000 mg BID PO Last administered on 02/18/19 08:38; Admin Dose 1,000 MG; Start 02/17/19 at 18:30; Stop 02/21/19 at 18:29 Clarithromycin (Biaxin) 500 mg BID PO Last administered on 02/18/19 08:38; Admin Dose 500 MG; Start 02/17/19 at 18:30; Stop 02/21/19 at 18:29 ANGEL CHAVEZ MD Feb 18, 2019 11:42
--- NOTE | 2019-02-18 12:22 | CONS ---
Assessment/Plan Assessment/Plan Hospital Course (Demo Recall) #Anemia -Anemia workup is most consistent with iron deficiency given the iron saturation of 6%. Pt is currently on IV iron which we should continue. -past anemia workup reveals the following: -normal SPEP which rules out monoclonal gammopathy -normal Hg electrophoresis which rules on beta thalassemia -vitamin b12 and folate are wnl -haptoglobin normal making hemolysis unlikely -will order bone marrow bx to ensure there are no other contributing factors to the worsening anemia thrombocytopenia. Flow cytometry with mild atypia noted from last admission #Thrombocytopenia -this may be secondary to medication effect. Methimazole and zosyn can both cause worsening thrombocytopenia. Although the platelet drop may have preceded when these meds were given -need to r/o HIT since patient was given heparin -need to r/o TTP. Will check LDH and peripheral smear -r/o DIC -bone marrow bx ordered as stated above #Hyperthyroidism -management per endocrinology Thank you for the opportunity to participate in this patients care A total of 40 minutes of face to face time was spent speaking with the patient, of which greater than 50% was spent in counseling and coordination of care and the detailed question and answer session. Consultation Date/Type/Reason Admit Date/Time Feb 06, 2019 at 14:46 Date of Consultation: Feb 18, 2019 Type of Consult oncology Reason for Consultation anemia Requesting Provider: KIRK AREVALO MD Date/Time of Note DATE: 02/18/19 TIME: 12:19 Hx of Present Illness 58 yo male with known Hyperthyroidism and Graves disease. 01/16/19 pt was admitted for severe hyperthyroidism and was started on methimazole which plans for Radioiodine ablation therapy as an out patient. 02/06/19 pt admitted again with progressive fatigue, weakness, anorexia, and shaking chills. On admission pt was found to be hypotensive and hyponatremic. PT is now being treated for sepsis with zosyn. HE is also being treated for H pylori. During this admission pt is noted to have a progressively worse microcytic anemia with a Hg dropping from 10.1 to 7.4 from 02/06/19 to 02/12/19. In addition, his platelets were normal on 02/11 but have since dropped to the 60s. Pt denies any easy bruising, bleeding or GI bleed. His ESR is also noted to be elevated to 70. Medications patient has been given during this hospitalization include : Heparin 4/9 Cefepime 02/14 Zosyn 02/16 Methimazole 02/16, although this was likely given prior to admission. We have been consulted given the worsening anemia and thrombocytopenia Constitutional: chills, poor po Eyes: no complaints ENT: no complaints Respiratory: shortness of breath Cardiovascular: lightheadedness, palpitations Gastrointestinal: decreased appetite Genitourinary: no complaints Musculoskeletal: bone/joint pain Neurologic: no complaints Endocrine: no complaints Lymphatic: no complaints Past Medical History Medical History: diabetes, high cholesterol, hypertension, hyperthyroid Home Meds Active Scripts Insulin Glargine* (Lantus*) 100 Unit/Ml Soln, 15 UNIT SC DAILY, #14 VIAL Prov:[facility] 02/11/19 Insulin Aspart* (Novolog Insulin Pen*) 100 Unit/Ml Soln, 7 UNIT SC WITH MEALS, #7 VIAL Prov:[facility] 02/11/19 Sennosides* (Senna Lax*) 8.6 Mg Tablet, 2 TAB PO BID, #120 TAB Prov:[facility] 02/11/19 Clarithromycin* (Clarithromycin*) 500 Mg Tablet, 500 MG PO BID for 5 Days, #10 TAB Prov:[facility] 02/11/19 Amoxicillin* (Amoxicillin*) 500 Mg Cap, 1000 MG PO BID for 5 Days, #10 CAP Prov:[facility] 02/11/19 Methimazole* (Methimazole*) 10 Mg Tablet, 30 MG PO BID, #180 TAB 1 Refill Prov:[facility] 02/11/19 Reported Medications Pantoprazole* (Pantoprazole*) 40 Mg Tablet.dr, 40 MG PO AC BREAKFAST, TAB 02/06/19 Simvastatin* (Zocor*) 20 Mg Tablet, 20 MG PO QHS, #30 TAB 01/16/19 Lisinopril* (Lisinopril*) 2.5 Mg Tablet, 2.5 MG PO DAILY, #30 TAB 01/16/19 Propranolol Hcl* (Propranolol Hcl*) 40 Mg Tablet, 80 MG PO TID, TAB 01/16/19 Discontinued Reported Medications Metformin* (Glucophage*) 500 Mg Tab, 500 MG PO BID, #90 TAB 01/16/19 Medications Current Medications IV Flush (NS 3 ml) 3 ml PER PROTOCOL IV ; Start 02/06/19 at 15:00 Ondansetron HCl (Zofran Inj) 4 mg Q6H PRN IV NAUSEA/VOMITING Last administered on 02/16/19at 11:54; Admin Dose 4 MG; Start 02/06/19 at 15:00 Acetaminophen (Tylenol Tab) 650 mg Q6H PRN PO .PAIN 1-3 OR TEMP Last administered on 02/17/19at 20:05; Admin Dose 650 MG; Start 02/06/19 at 15:00 Atorvastatin Calcium (Lipitor) 10 mg DAILY@21 PO Last administered on 02/17/19at 20:04; Admin Dose 10 MG; Start 02/06/19 at 21:00 Miscellaneous Information 1 ea NOTE XX ; Start 02/06/19 at 16:00 Glucose (Glutose) 15 gm Q15M PRN PO DECREASED GLUCOSE; Start 02/06/19 at 16:00 Glucose (Glutose) 22.5 gm Q15M PRN PO DECREASED GLUCOSE; Start 02/06/19 at 16:00 Dextrose (D50w Syringe) 25 ml Q15M PRN IV DECREASED GLUCOSE; Start 02/06/19 at 16:00 Dextrose (D50w Syringe) 50 ml Q15M PRN IV DECREASED GLUCOSE; Start 02/06/19 at 16:00 Glucagon (Glucagen) 1 mg Q15M PRN IM DECREASED GLUCOSE; Start 02/06/19 at 16:00 Glucose (Glutose) 15 gm Q15M PRN BUCCAL DECREASED GLUCOSE; Start 02/06/19 at 16:00 Pantoprazole (Protonix Tab) 40 mg BID@0600,1800 PO Last administered on 02/18/19at 05:28; Admin Dose 40 MG; Start 02/07/19 at 06:00 Insulin Aspart (Novolog Insulin Pen) 7 unit WITH MEALS SC Last administered on 02/14/19at 17:39; Admin Dose 7 UNIT; Start 02/07/19 at 09:30; Status Hold Miscellaneous Information (* Miscellaneous Pharmacy Order) Treatment of Hypoglycemia: 1.BG 51... Per protocol XX ; Start 02/08/19 at 09:00 Dextrose (D50w Syringe) 25 ml Q15M PRN IV .DECREASED GLUCOSE; Start 02/08/19 at 09:00 Dextrose (D50w Syringe) 50 ml Q15M PRN IV .DECREASED GLUCOSE; Start 02/08/19 at 09:00 Methimazole (Tapazole) 30 mg BID PO Last administered on 02/17/19 08:28; Admin Dose 30 MG; Start 02/08/19 at 13:30; Status Hold Diagnostic Test (Pha) (Accu-Chek) 1 ea 02 XX Last administered on 02/14/19 02:00; Admin Dose 1 EA; Start 02/10/19 at 02:00 Insulin Aspart (Novolog Insulin Pen) NOVOLOG *MODERATE* ALGORITHM WITH MEALS BEDTIME SC Last administered on 02/16/19 12:01; Admin Dose 2 UNIT; Start 02/09/19 at 17:35 Heparin Sodium (Porcine) (Heparin (5000 Units/1ml)) 5,000 unit BID SC Last administered on 02/14/19 22:48; Admin Dose 5,000 UNIT; Start 02/11/19 at 09:00; Status Hold Acetaminophen/ Hydrocodone Bitart ([place] (5/325)) 1 tab Q6H PRN PO MODERATE PAIN LEVEL 4-6; Start 02/12/19 at 09:00 Ferric Sodium Gluconate Complex 125 mg/Sodium Chloride 110 ml @ 110 mls/hr DAILY@1300 IVPB Last administered on 02/17/19 13:25; Admin Dose 110 MLS/HR; Start 02/14/19 at 13:00; Stop 02/18/19 at 13:59 Nystatin (Nystatin Susp) 5 ml QID PO Last administered on 02/18/19 08:37; Adm in Dose 5 ML; Start 02/14/19 at 13:00; Stop 02/21/19 at 12:59 Senna (Senokot) 2 tab BID PO Last administered on 02/18/19 08:38; Admin Dose 2 TAB; Start 02/16/19 at 21:00 Piperacillin Sod/ Tazobactam Sod 100 ml @ 200 mls/hr Q6 IVPB Last administered on 02/18/19 05:28; Admin Dose 200 MLS/HR; Start 02/16/19 at 18:00 Diltiazem HCl 125 ml @ 5 mls/hr TITRATE IV Last administered on 4/15/19at 22:30 ; Admin Dose 15 MLS/HR; Start 02/17/19 at 05:00 Insulin Glargine (Lantus) 5 units DAILY@0930 SC Last administered on 02/18/19at 08:50; Admin Dose 5 UNITS; Start 02/18/19 at 09:30 Bismuth Subsalicylate (Pepto-Bismol) 30 ml QID PO Last administered on 02/18/19 08:37; Admin Dose 30 ML; Start 02/17/19 at 17:30 Amoxicillin (Amoxicillin) 1,000 mg BID PO Last administered on 02/18/19 08:38; Admin Dose 1,000 MG; Start 02/17/19 at 18:30; Stop 02/21/19 at 18:29 Clarithromycin (Biaxin) 500 mg BID PO Last administered on 02/18/19 08:38; Admin Dose 500 MG; Start 02/17/19 at 18:30; Stop 02/21/19 at 18:29 Allergies: Coded Allergies: No Known Allergy (Unverified , 02/06/19) Past Surgical History Past Surgical Hx: no surgical history Social History Alcohol Use: sober (x 10 years) Smoking Status: Never smoker Drug Use: none Exam/Review of Systems Exam Vitals Vital Signs Date Temp Pulse Resp B/P (MAP) Pulse Ox O2 O2 Flow FiO2 Time Delivery Rate 02/18/19 100 12:01 02/18/19 100.4 18 106/58 99 11:35 (74) 02/17/19 Room Air 04:00 Intake and Output 02/17/19 02/17/19 02/18/19 1515:00 23:00 07:00 IntakeIntake Total 1410 ml 650 ml 325 ml BalanceBalance 1410 ml 650 ml 325 ml Constitutional: alert, oriented Psych: anxiety, depression Head: normocephalic Eyes: nl conjunctiva ENMT: nl external ears & nose Neck: supple Respiratory: clear to auscultation Cardiovascular: regular rate and rhythm Gastrointestinal: soft Musculoskeletal: nl extremities to inspection Extremities: normal pulses Neurological: MIDDLE CARD TENDER II-XII intact Results Result Diagram: 02/17/19 0544 02/17/19 0544 Results 24hrs Laboratory Tests Test 02/17/19 13:32 02/17/19 17:29 02/17/19 20:31 02/17/19 22:32 Bedside Glucose 79 77 63 L 125 Test 02/18/19 08:28 Bedside Glucose 112 Medications Medication Current Medications IV Flush (NS 3 ml) 3 ml PER PROTOCOL IV ; Start 02/06/19 at 15:00 Ondansetron HCl (Zofran Inj) 4 mg Q6H PRN IV NAUSEA/VOMITING Last administered on 02/16/19at 11:54; Admin Dose 4 MG; Start 02/06/19 at 15:00 Acetaminophen (Tylenol Tab) 650 mg Q6H PRN PO .PAIN 1-3 OR TEMP Last administered on 02/17/19at 20:05; Admin Dose 650 MG; Start 02/06/19 at 15:00 Atorvastatin Calcium (Lipitor) 10 mg DAILY@21 PO Last administered on 02/17/19at 20:04; Admin Dose 10 MG; Start 02/06/19 at 21:00 Miscellaneous Information 1 ea NOTE XX ; Start 02/06/19 at 16:00 Glucose (Glutose) 15 gm Q15M PRN PO DECREASED GLUCOSE; Start 02/06/19 at 16:00 Glucose (Glutose) 22.5 gm Q15M PRN PO DECREASED GLUCOSE; Start 02/06/19 at 16:00 Dextrose (D50w Syringe) 25 ml Q15M PRN IV DECREASED GLUCOSE; Start 02/06/19 at 16:00 Dextrose (D50w Syringe) 50 ml Q15M PRN IV DECREASED GLUCOSE; Start 02/06/19 at 16:00 Glucagon (Glucagen) 1 mg Q15M PRN IM DECREASED GLUCOSE; Start 02/06/19 at 16:00 Glucose (Glutose) 15 gm Q15M PRN BUCCAL DECREASED GLUCOSE; Start 02/06/19 at 16:00 Pantoprazole (Protonix Tab) 40 mg BID@0600,1800 PO Last administered on 02/18/19at 05:28; Admin Dose 40 MG; Start 02/07/19 at 06:00 Insulin Aspart (Novolog Insulin Pen) 7 unit WITH MEALS SC Last administered on 02/14/19at 17:39; Admin Dose 7 UNIT; Start 02/07/19 at 09:30; Status Hold Miscellaneous Information (* Miscellaneous Pharmacy Order) Treatment of Hypoglycemia: 1.BG 51... Per protocol XX ; Start 02/08/19 at 09:00 Dextrose (D50w Syringe) 25 ml Q15M PRN IV .DECREASED GLUCOSE; Start 02/08/19 at 09:00 Dextrose (D50w Syringe) 50 ml Q15M PRN IV .DECREASED GLUCOSE; Start 02/08/19 at 09:00 Methimazole (Tapazole) 30 mg BID PO Last administered on 02/17/19 08:28; Admin Dose 30 MG; Start 02/08/19 at 13:30; Status Hold Diagnostic Test (Pha) (Accu-Chek) 1 ea 02 XX Last administered on 02/14/19at 02:00; Admin Dose 1 EA; Start 02/10/19 at 02:00 Insulin Aspart (Novolog Insulin Pen) NOVOLOG *MODERATE* ALGORITHM WITH MEALS BEDTIME SC Last administered on 02/16/19 12:01; Admin Dose 2 UNIT; Start 02/09/19 at 17:35 Heparin Sodium (Porcine) (Heparin (5000 Units/1ml)) 5,000 unit BID SC Last administered on 02/14/19at 22:48; Admin Dose 5,000 UNIT; Start 02/11/19 at 09:00; Status Hold Acetaminophen/ Hydrocodone Bitart ([place] (5/325)) 1 tab Q6H PRN PO MODERATE PAIN LEVEL 4-6; Start 02/12/19 at 09:00 Ferric Sodium Gluconate Complex 125 mg/Sodium Chloride 110 ml @ 110 mls/hr DAILY@1300 IVPB Last administered on 02/17/19 13:25; Admin Dose 110 MLS/HR; Start 02/14/19 at 13:00; Stop 02/18/19 at 13:59 Nystatin (Nystatin Susp) 5 ml QID PO Last administered on 02/18/19 08:37; Admin Dose 5 ML; Start 02/14/19 at 13:00; Stop 02/21/19 at 12:59 Senna (Senokot) 2 tab BID PO Last administered on 02/18/19 08:38; Admin Dose 2 TAB; Start 02/16/19 at 21:00 Piperacillin Sod/ Tazobactam Sod 100 ml @ 200 mls/hr Q6 IVPB Last administered on 02/18/19 05:28; Admin Dose 200 MLS/HR; Start 02/16/19 at 18:00 Diltiazem HCl 125 ml @ 5 mls/hr TITRATE IV Last administered on 02/17/19 22:30; Admin Dose 15 MLS/HR; Start 02/17/19 at 05:00 Insulin Glargine (Lantus) 5 units DAILY@0930 SC Last administered on 02/18/19 08:50; Admin Dose 5 UNITS; Start 02/18/19 at 09:30 Bismuth Subsalicylate (Pepto-Bismol) 30 ml QID PO Last administered on 02/18/19 08:37; Admin Dose 30 ML; Start 02/17/19 at 17:30 Amoxicillin (Amoxicillin) 1,000 mg BID PO Last administered on 02/18/19 08:38; Admin Dose 1,000 MG; Start 02/17/19 at 18:30; Stop 02/21/19 at 18:29 Clarithromycin (Biaxin) 500 mg BID PO Last administered on 02/18/19 08:38; Admin Dose 500 MG; Start 02/17/19 at 18:30; Stop 02/21/19 at 18:29 HOLDEN CROWE M.D. Feb 18, 2019 12:22
[2019-02-18] MEDS: SOD FERRIC GLUC COMPLX 125 MG in SOD CHLORIDE 0.9% 100 ML IVPB SCH (13:14)
--- NOTE | 2019-02-18 13:49 | CONS ---
Assessment/Plan Assessment/Plan Problems: (1) Graves' disease with exophthalmos Status: Chronic Comment: I have taken him off of antithyroid drugs as of yesterday and plans to do thyroid ablation therapy and 8-9 days. This can either be as an inpatient if he still in the hospital or as an outpatient if he has been discharged. We will try and coordinate with nuclear medicine. Regarding his other medical issues deferring off to the primary team of the consultants. Consultation Date/Type/Reason Admit Date/Time Feb 06, 2019 at 14:46 Initial Consult Date 02/06/19 Type of Consult Endocrine Reason for Consultation Graves' disease with hyperthyroidism; diabetes mellitus type 2 Requesting Provider: KIRK AREVALO MD Date/Time of Note DATE: 02/18/19 TIME: 13:48 24 HR Interval Summary Free Text/Dictation From a purely endocrine standpoint the patient is doing relatively well and has less symptoms Exam/Review of Systems Exam Vitals Vital Signs Date Temp Pulse Resp B/P (MAP) Pulse Ox O2 O2 Flow FiO2 Time Delivery Rate 02/18/19 100 12:01 02/18/19 100.4 18 106/58 99 11:35 (74) 02/17/19 Room Air 04:00 Intake and Output 02/17/19 02/17/19 02/18/19 1515:00 23:00 07:00 IntakeIntake Total 1410 ml 650 ml 325 ml BalanceBalance 1410 ml 650 ml 325 ml Constitutional: alert, oriented Respiratory: clear to auscultation, normal air movement Cardiovascular: regular rate and rhythm, nl pulses Gastrointestinal: soft, nl liver, spleen, non-tender Results Result Diagram: 02/17/19 0544 02/17/19 0544 Results 24hrs Laboratory Tests Test 02/17/19 17:29 02/17/19 20:31 02/17/19 22:32 02/18/19 08:28 Bedside Glucose 77 63 L 125 112 Test 02/18/19 12:25 Bedside Glucose 120 Medications Medication Current Medications IV Flush (NS 3 ml) 3 ml PER PROTOCOL IV ; Start 02/06/19 at 15:00 Ondansetron HCl (Zofran Inj) 4 mg Q6H PRN IV NAUSEA/VOMITING Last administered on 02/16/19at 11:54; Admin Dose 4 MG; Start 02/06/19 at 15:00 Acetaminophen (Tylenol Tab) 650 mg Q6H PRN PO .PAIN 1-3 OR TEMP Last administered on 02/17/19at 20:05; Admin Dose 650 MG; Start 02/06/19 at 15:00 Atorvastatin Calcium (Lipitor) 10 mg DAILY@21 PO Last administered on 02/17/19at 20:04; Admin Dose 10 MG; Start 02/06/19 at 21:00 Miscellaneous Information 1 ea NOTE XX ; Start 02/06/19 at 16:00 Glucose (Glutose) 15 gm Q15M PRN PO DECREASED GLUCOSE; Start 02/06/19 at 16:00 Glucose (Glutose) 22.5 gm Q15M PRN PO DECREASED GLUCOSE; Start 02/06/19 at 16:00 Dextrose (D50w Syringe) 25 ml Q15M PRN IV DECREASED GLUCOSE; Start 02/06/19 at 16:00 Dextrose (D50w Syringe) 50 ml Q15M PRN IV DECREASED GLUCOSE; Start 02/06/19 at 16:00 Glucagon (Glucagen) 1 mg Q15M PRN IM DECREASED GLUCOSE; Start 02/06/19 at 16:00 Glucose (Glutose) 15 gm Q15M PRN BUCCAL DECREASED GLUCOSE; Start 02/06/19 at 16:00 Pantoprazole (Protonix Tab) 40 mg BID@0600,1800 PO Last administered on 02/18/19at 05:28; Admin Dose 40 MG; Start 02/07/19 at 06:00 Insulin Aspart (Novolog Insulin Pen) 7 unit WITH MEALS SC Last administered on 02/14/19at 17:39; Admin Dose 7 UNIT; Start 02/07/19 at 09:30; Status Hold Miscellaneous Information (* Miscellaneous Pharmacy Order) Treatment of Hypoglycemia: 1.BG 51... Per protocol XX ; Start 02/08/19 at 09:00 Dextrose (D50w Syringe) 25 ml Q15M PRN IV .DECREASED GLUCOSE; Start 02/08/19 at 09:00 Dextrose (D50w Syringe) 50 ml Q15M PRN IV .DECREASED GLUCOSE; Start 02/08/19 at 09:00 Methimazole (Tapazole) 30 mg BID PO Last administered on 02/17/19at 08:28; Admin Dose 30 MG; Start 02/08/19 at 13:30; Status Hold Diagnostic Test (Pha) (Accu-Chek) 1 ea 02 XX Last administered on 02/14/19at 02:00; Admin Dose 1 EA; Start 02/10/19 at 02:00 Insulin Aspart (Novolog Insulin Pen) NOVOLOG *MODERATE* ALGORITHM WITH MEALS BEDTIME SC Last administered on 02/16/19 12:01; Admin Dose 2 UNIT; Start 02/09/19 at 17:35 Heparin Sodium (Porcine) (Heparin (5000 Units/1ml)) 5,000 unit BID SC Last administered on 02/14/19 22:48; Admin Dose 5,000 UNIT; Start 02/11/19 at 09:00; Status Hold Acetaminophen/ Hydrocodone Bitart ([place] (5/325)) 1 tab Q6H PRN PO MODERATE PAIN LEVEL 4-6; Start 02/12/19 at 09:00 Ferric Sodium Gluconate Complex 125 mg/Sodium Chloride 110 ml @ 110 mls/hr DAILY@1300 IVPB Last administered on 02/18/19 13:14; Admin Dose 110 MLS/HR; Start 02/14/19 at 13:00; Stop 02/18/19 at 13:59 Nystatin (Nystatin Susp) 5 ml QID PO Last administered on 02/18/19 12:21; Admin Dose 5 ML; Start 02/14/19 at 13:00; Stop 02/21/19 at 12:59 Senna (Senokot) 2 tab BID PO Last administered on 02/18/19 08:38; Admin Dose 2 TAB; Start 02/16/19 at 21:00 Piperacillin Sod/ Tazobactam Sod 100 ml @ 200 mls/hr Q6 IVPB Last administered on 02/18/19 12:21; Admin Dose 200 MLS/HR; Start 02/16/19 at 18:00 Diltiazem HCl 125 ml @ 5 mls/hr TITRATE IV Last administered on 02/17/19 22:30; Admin Dose 15 MLS/HR; Start 02/17/19 at 05:00 Insulin Glargine (Lantus) 5 units DAILY@0930 SC Last administered on 02/18/19 08:50; Admin Dose 5 UNITS; Start 02/18/19 at 09:30 Bismuth Subsalicylate (Pepto-Bismol) 30 ml QID PO Last administered on 02/18/19 12:21; Admin Dose 30 ML; Start 02/17/19 at 17:30 Amoxicillin (Amoxicillin) 1,000 mg BID PO Last administered on 02/18/19 08:38; Admin Dose 1,000 MG; Start 02/17/19 at 18:30; Stop 02/21/19 at 18:29 Clarithromycin (Biaxin) 500 mg BID PO Last administered on 02/18/19 08:38; Admin Dose 500 MG; Start 02/17/19 at 18:30; Stop 02/21/19 at 18:29 ANA GARCIA MD Feb 18, 2019 13:49
--- NOTE | 2019-02-18 14:17 | PN ---
Date/Time of Note Date/Time of Note DATE: 02/18/19 TIME: 14:15 Assessment/Plan VTE Prophylaxis Risk score (from Ns)>0 risk: 4 SCD applied (from Nsg): Yes Pharmacological prophylaxis: heparin Lines/Catheters IV Catheter Type (from Nrsg): Peripheral IV Urinary Cath still in place: No Assessment/Plan Hospital Course 59 yo male with hyperthyroidism and pancytopenias Hyperthyroid: - Off of anti-thyroidal meds per endocrine - Awaits ablation Cytopenias: - Flow cytometry suggested mild atypia, bone marrow biopsy per Dr Dela Cruz DMII: - Basal/bolus insulin Result Diagram: 02/17/19 0544 02/17/19 0544 Results 24hrs Laboratory Tests Test 02/17/19 17:29 02/17/19 20:31 02/17/19 22:32 02/18/19 08:28 Bedside Glucose 77 63 L 125 112 Test 02/18/19 12:25 Bedside Glucose 120 Subjective 24 Hr Interval Summary Free Text/Dictation No change to clinical status Off of thyroid drugs per Dr Alvarado Exam/Review of Systems Exam Vitals Vital Signs Date Temp Pulse Resp B/P (MAP) Pulse Ox O2 O2 Flow FiO2 Time Delivery Rate 02/18/19 100 12:01 02/18/19 100.4 18 106/58 99 11:35 (74) 02/17/19 Room Air 04:00 Intake and Output 02/17/19 02/17/19 02/18/19 1515:00 23:00 07:00 IntakeIntake Total 1410 ml 650 ml 325 ml BalanceBalance 1410 ml 650 ml 325 ml Constitutional: alert, oriented, well developed Psych: no complaints, nl mood/affect Head: normocephalic, atraumatic Eyes: nl conjunctiva, EOMI, nl lids, nl sclera, PERRL ENMT: nl external ears & nose, nl lips & teeth, nl nasal mucosa & septum Neck: supple, non-tender Respiratory: clear to auscultation, normal air movement Cardiovascular: regular rate and rhythm, nl pulses Gastrointestinal: soft, nl liver, spleen, non-tender Musculoskeletal: nl extremities to inspection, nl gait and stance Extremities: normal pulses Neurological: FORKLIFT MATERIAL HANDLER II-XII intact, nl mental status, nl speech, nl strength Skin: nl turgor; No rash or lesions Lymph: nl lymph nodes Results Results 24hrs Laboratory Tests Test 02/17/19 17:29 02/17/19 20:31 02/17/19 22:32 02/18/19 08:28 Bedside Glucose 77 63 L 125 112 Test 02/18/19 12:25 Bedside Glucose 120 Medications Medication Current Medications IV Flush (NS 3 ml) 3 ml PER PROTOCOL IV ; Start 02/06/19 at 15:00 Ondansetron HCl (Zofran Inj) 4 mg Q6H PRN IV NAUSEA/VOMITING Last administered on 02/16/19at 11:54; Admin Dose 4 MG; Start 02/06/19 at 15:00 Acetaminophen (Tylenol Tab) 650 mg Q6H PRN PO .PAIN 1-3 OR TEMP Last administered on 02/17/19at 20:05; Admin Dose 650 MG; Start 02/06/19 at 15:00 Atorvastatin Calcium (Lipitor) 10 mg DAILY@21 PO Last administered on 02/17/19at 20:04; Admin Dose 10 MG; Start 02/06/19 at 21:00 Miscellaneous Information 1 ea NOTE XX ; Start 02/06/19 at 16:00 Glucose (Glutose) 15 gm Q15M PRN PO DECREASED GLUCOSE; Start 02/06/19 at 16:00 Glucose (Glutose) 22.5 gm Q15M PRN PO DECREASED GLUCOSE; Start 02/06/19 at 16:00 Dextrose (D50w Syringe) 25 ml Q15M PRN IV DECREASED GLUCOSE; Start 02/06/19 at 16:00 Dextrose (D50w Syringe) 50 ml Q15M PRN IV DECREASED GLUCOSE; Start 02/06/19 at 16:00 Glucagon (Glucagen) 1 mg Q15M PRN IM DECREASED GLUCOSE; Start 02/06/19 at 16:00 Glucose (Glutose) 15 gm Q15M PRN BUCCAL DECREASED GLUCOSE; Start 02/06/19 at 16:00 Pantoprazole (Protonix Tab) 40 mg BID@0600,1800 PO Last administered on 02/18/19at 05:28; Admin Dose 40 MG; Start 02/07/19 at 06:00 Insulin Aspart (Novolog Insulin Pen) 7 unit WITH MEALS SC Last administered on 02/14/19at 17:39; Admin Dose 7 UNIT; Start 02/07/19 at 09:30; Status Hold Miscellaneous Information (* Miscellaneous Pharmacy Order) Treatment of Hypogly cemia: 1.BG 51... Per protocol XX ; Start 02/08/19 at 09:00 Dextrose (D50w Syringe) 25 ml Q15M PRN IV .DECREASED GLUCOSE; Start 02/08/19 at 09:00 Dextrose (D50w Syringe) 50 ml Q15M PRN IV .DECREASED GLUCOSE; Start 02/08/19 at 09:00 Methimazole (Tapazole) 30 mg BID PO Last administered on 02/17/19 08:28; Admin Dose 30 MG; Start 02/08/19 at 13:30; Status Hold Diagnostic Test (Pha) (Accu-Chek) 1 ea 02 XX Last administered on 02/14/19 02:00; Admin Dose 1 EA; Start 02/10/19 at 02:00 Insulin Aspart (Novolog Insulin Pen) NOVOLOG *MODERATE* ALGORITHM WITH MEALS BEDTIME SC Last administered on 02/16/19 12:01; Admin Dose 2 UNIT; Start 02/09/19 at 17:35 Heparin Sodium (Porcine) (Heparin (5000 Units/1ml)) 5,000 unit BID SC Last administered on 02/14/19 22:48; Admin Dose 5,000 UNIT; Start 02/11/19 at 09:00; Status Hold Acetaminophen/ Hydrocodone Bitart ([place] (5/325)) 1 tab Q6H PRN PO MODERATE PAIN LEVEL 4-6; Start 02/12/19 at 09:00 Nystatin (Nystatin Susp) 5 ml QID PO Last administered on 02/18/19 12:21; Admin Dose 5 ML; Start 02/14/19 at 13:00; Stop 02/21/19 at 12:59 Senna (Senokot) 2 tab BID PO Last administered on 02/18/19 08:38; Admin Dose 2 TAB; Start 02/16/19 at 21:00 Piperacillin Sod/ Tazobactam Sod 100 ml @ 200 mls/hr Q6 IVPB Last administered on 02/18/19 12:21; Admin Dose 200 MLS/HR; Start 02/16/19 at 18:00 Diltiazem HCl 125 ml @ 5 mls/hr TITRATE IV Last administered on 02/17/19 22:30; Admin Dose 15 MLS/HR; Start 02/17/19 at 05:00 Insulin Glargine (Lantus) 5 units DAILY@0930 SC Last administered on 02/18/19 08:50; Admin Dose 5 UNITS; Start 02/18/19 at 09:30 Bismuth Subsalicylate (Pepto-Bismol) 30 ml QID PO Last administered on 02/18/19 12:21; Admin Dose 30 ML; Start 02/17/19 at 17:30 Amoxicillin (Amoxicillin) 1,000 mg BID PO Last administered on 02/18/19 08:38; Admin Dose 1,000 MG; Start 02/17/19 at 18:30; Stop 02/21/19 at 18:29 Clarithromycin (Biaxin) 500 mg BID PO Last administered on 02/18/19 08:38; Admin Dose 500 MG; Start 02/17/19 at 18:30; Stop 02/21/19 at 18:29 KIRK AREVALO MD Feb 18, 2019 14:16
[2019-02-18] MEDS: DILTIAZEM-D5W 125MG/125ML DRIP 125 ML IV SCH ×2 (14:45→23:37)
--- NOTE | 2019-02-18 17:37 | RADRPT ---
Vent Rate: 119 bpm RR Interval: 0 msec [place] Interval: 160 msec QRS Duration: 70 msec QT Interval: 308 msec QTC Interval: 433 msec P-R-T [place]: 47 - 16 - 28 degrees Sinus tachycardia with occasional premature ventricular complexes Low voltage QRS Borderline ECG Electronically Signed By: Slade Morel
--- NOTE | 2019-02-18 17:37 | RADRPT ---
Vent Rate: 131 bpm RR Interval: 0 msec [place] Interval: 0 msec QRS Duration: 66 msec QT Interval: 352 msec QTC Interval: 519 msec P-R-T [place]: 0 - 16 - 32 degrees Supraventricular tachycardia Low voltage QRS Borderline ECG Electronically Signed By: Slade Morel
[2019-02-18] MEDS: ATORVASTATIN 10 MG TAB PO SCH (20:08)
[2019-02-18] MEDS: ACETAMINOPHEN 325 MG TAB PO PRN (23:28)
[2019-02-19] VITALS (9 sets, daily range): BP systolic 101–116; BP diastolic 58–65; PULSE 87–110; RESP 18–19
[2019-02-19] MEDS: ACCU-CHEK XX SCH (01:21)
[2019-02-19] MEDS: DILTIAZEM-D5W 125MG/125ML DRIP 125 ML IV SCH ×2 (03:02→09:14)
[2019-02-19] MEDS: PANTOPRAZOLE (EC) 40 MG TAB PO SCH ×2 (05:06→17:48)
[2019-02-19] MEDS: PIPER-TAZO 3.375 GM IV (PMX) 100 ML IVPB SCH ×3 (05:06→17:49)
[2019-02-19] MEDS: SENNA TAB PO SCH ×2 (08:36→21:30)
[2019-02-19] MEDS: NYSTATIN SUSP 5 ML CUP PO SCH ×4 (08:36→21:30)
[2019-02-19] MEDS: CLARITHROMYCIN 500 MG TAB PO SCH ×2 (08:36→21:31)
[2019-02-19] MEDS: AMOXICILLIN 500 MG CAP PO SCH ×2 (08:36→21:31)
[2019-02-19] MEDS: BISMUTH SUBSALICYLATE 240 ML BTL PO SCH ×4 (09:00→21:43)
[2019-02-19] MEDS: INSULIN ASPART [NOVOLOG] 3 ML PEN SC SCH ×4 (09:16→20:44)
[2019-02-19] MEDS: INSULIN GLARGINE [LANTus] (100 UNITS/ML) SYG SC SCH (09:33)
--- NOTE | 2019-02-19 09:49 | CONS ---
Assessment/Plan Assessment/Plan Hospital Course (Demo Recall) - Recurrent SIRS (fever and tachycardia), r/o sepsis; previous ID w/u and imaging were negative; - s/p Vancomycin and Cefepime (12/11/2018-12/14/18) - Mild peno-scrotal edema with possible left epididymitis as suggested on the FARZANA - on amoxicillin - Mild pyuria - urine cx grew <10K Citrobacter Koseri and <10K C. Albicans; pt is asymptomatic - H. 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 Penumo ESBL in sputum cx on 12/15/2018, likely colonizer - Hx EBV exposure - The following is negative: HIV, HIV viral load, procalc <0.10 on 12/12/18, Cryto AG, [place]-smear, malaria, resp virus panel, MTB complex, HSV 1&2 by PCR, CMV, WBC scan on 12/18/2018 Recommendations: - Complete treatment for H. pylori with amoxicillin, clarithromycin and PPI (02/06/2019-); ordered to extend course from 10 to 14 days - Continue Zosyn (02/16/19 - ) for now - Complete 7 days of nystatin (02/14/2019-) - F/u bone marrow bx results when available Plan was d/w patient's RN and with Dr. Tomas. Thank you Consultation Date/Type/Reason Admit Date/Time Feb 06, 2019 at 14:46 Initial Consult Date 02/18/19 Type of Consult ID Requesting Provider: KIRK AREVALO MD Date/Time of Note DATE: 02/19/19 TIME: 09:47 24 HR Interval Summary Free Text/Dictation D/w patient's RN, patient is currently in a Bone Marrow biopsy. Pt was febrile yesterday, today low grade 99.5 Patient has still been unable to expectorate sputum for a sputum culture. Exam/Review of Systems Exam Vitals Vital Signs Date Temp Pulse Resp B/P (MAP) Pulse Ox O2 O2 Flow FiO2 Time Delivery Rate 02/19/19 103 08:00 02/19/19 99.4 18 106/60 98 Room Air 07:39 (75) Intake and Output 02/18/19 02/18/19 02/19/19 1515:00 23:00 07:00 IntakeIntake Total 800 ml 1200 ml 325 ml BalanceBalance 800 ml 1200 ml 325 ml Allergies Coded Allergies No Known Allergy (Unverified02/06/19) Exam Physical exam deferred as patient is not in his room, he's at a Bone Marrow biopsy. Results Result Diagram: 02/19/19 0702/19/19 07 Results 24hrs Laboratory Tests Test 02/18/19 12:25 02/18/19 15:54 02/18/19 17:18 02/18/19 20:07 Bedside Glucose 120 86 104 Stool Occult Blood NEGATIVE Test 02/19/19 07:22 02/19/19 08:00 White Blood Count 7.1 Red Blood Count 3.35 L Hemoglobin 8.3 L Hematocrit 25.6 L Mean Corpuscular 76.4 L Volume Mean Corpuscular 24.8 L Hemoglobin Mean Corpuscular 32.4 Hemoglobin Concent Red Cell 20.5 H Distribution Width Platelet Count 72 L Mean Platelet Volume 9.8 Immature 0.900 H Granulocytes % Neutrophils % 66.4 Lymphocytes % 18.6 Monocytes % 13.2 H Eosinophils % 0.6 Basophils % 0.3 Nucleated Red Blood 0.0 Cells % Immature 0.060 H Granulocytes # Neutrophils # 4.7 Lymphocytes # 1.3 Monocytes # 0.9 Eosinophils # 0.0 Basophils # 0.0 Nucleated Red Blood 0.0 Cells # Sodium Level 123 L Potassium Level 3.5 Chloride Level 90 L Carbon Dioxide Level 27 Anion Gap 6 Blood Urea Nitrogen 5 L Creatinine 0.69 Est Glomerular > 60 Filtrat Rate mL/min Glucose Level 106 Calcium Level 8.1 L Magnesium Level 1.3 L Bedside Glucose 146 Imaging Imaging CXR 02/15/19 IMPRESSION: 1. Resolution of left lower lung zone infiltrate with the lung browne and pleural spaces now clear. 2. Otherwise, stable and unremarkable portable chest. Medications Medication Current Medications IV Flush (NS 3 ml) 3 ml PER PROTOCOL IV ; Start 02/06/19 at 15:00 Ondansetron HCl (Zofran Inj) 4 mg Q6H PRN IV NAUSEA/VOMITING Last administered on 02/16/19at 11:54; Admin Dose 4 MG; Start 02/06/19 at 15:00 Acetaminophen (Tylenol Tab) 650 mg Q6H PRN PO .PAIN 1-3 OR TEMP Last administered on 02/18/19at 23:28; Admin Dose 650 MG; Start 02/06/19 at 15:00 Atorvastatin Calcium (Lipitor) 10 mg DAILY@21 PO Last administered on 02/18/19at 20:08; Admin Dose 10 MG; Start 02/06/19 at 21:00 Miscellaneous Information 1 ea NOTE XX ; Start 02/06/19 at 16:00 Glucose (Glutose) 15 gm Q15M PRN PO DECREASED GLUCOSE; Start 02/06/19 at 16:00 Glucose (Glutose) 22.5 gm Q15M PRN PO DECREASED GLUCOSE; Start 02/06/19 at 16:00 Dextrose (D50w Syringe) 25 ml Q15M PRN IV DECREASED GLUCOSE; Start 02/06/19 at 16:00 Dextrose (D50w Syringe) 50 ml Q15M PRN IV DECREASED GLUCOSE; Start 02/06/19 at 16:00 Glucagon (Glucagen) 1 mg Q15M PRN IM DECREASED GLUCOSE; Start 02/06/19 at 16:00 Glucose (Glutose) 15 gm Q15M PRN BUCCAL DECREASED GLUCOSE; Start 02/06/19 at 16:00 Pantoprazole (Protonix Tab) 40 mg BID@0600,1800 PO Last administered on 02/19/19at 05:06; Admin Dose 40 MG; Start 02/07/19 at 06:00 Insulin Aspart (Novolog Insulin Pen) 7 unit WITH MEALS SC Last administered on 02/14/19at 17:39; Admin Dose 7 UNIT; Start 02/07/19 at 09:30; Status Hold Miscellaneous Information (* Miscellaneous Pharmacy Order) Treatment of Hypoglycemia: 1.BG 51... Per protocol XX ; Start 02/08/19 at 09:00 Dextrose (D50w Syringe) 25 ml Q15M PRN IV .DECREASED GLUCOSE; Start 02/08/19 at 09:00 Dextrose (D50w Syringe) 50 ml Q15M PRN IV .DECREASED GLUCOSE; Start 02/08/19 at 09:00 Methimazole (Tapazole) 30 mg BID PO Last administered on 02/17/19 08:28; Admin Dose 30 MG; Start 02/08/19 at 13:30; Status Hold Diagnostic Test (Pha) (Accu-Chek) 1 ea 02 XX Last administered on 02/14/19 02:00; Admin Dose 1 EA; Start 02/10/19 at 02:00 Insulin Aspart (Novolog Insulin Pen) NOVOLOG *MODERATE* ALGORITHM WITH MEALS BEDTIME SC Last administered on 02/19/19 09:16; Admin Dose 2 UNIT; Start 02/09/19 at 17:35 Heparin Sodium (Porcine) (Heparin (5000 Units/1ml)) 5,000 unit BID SC Last administered on 02/14/19 22:48; Admin Dose 5,000 UNIT; Start 02/11/19 at 09:00; Status Hold Acetaminophen/ Hydrocodone Bitart ([place] (5/325)) 1 tab Q6H PRN PO MODERATE KHADRA N LEVEL 4-6; Start 02/12/19 at 09:00 Nystatin (Nystatin Susp) 5 ml QID PO Last administered on 02/19/19 08:36; Admin Dose 5 ML; Start 02/14/19 at 13:00; Stop 02/21/19 at 12:59 Senna (Senokot) 2 tab BID PO Last administered on 02/19/19 08:36; Admin Dose 2 TAB; Start 02/16/19 at 21:00 Piperacillin Sod/ Tazobactam Sod 100 ml @ 200 mls/hr Q6 IVPB Last administered on 02/19/19 05:06; Admin Dose 200 MLS/HR; Start 02/16/19 at 18:00 Diltiazem HCl 125 ml @ 5 mls/hr TITRATE IV Last administered on 02/19/19 09:14; Admin Dose 10 MLS/HR; Start 02/17/19 at 05:00 Insulin Glargine (Lantus) 5 units DAILY@0930 SC Last administered on 02/19/19 09:33; Admin Dose 5 UNITS; Start 02/18/19 at 09:30 Bismuth Subsalicylate (Pepto-Bismol) 30 ml QID PO Last administered on 02/18/19at 20:08; Admin Dose 30 ML; Start 02/17/19 at 17:30 Amoxicillin (Amoxicillin) 1,000 mg BID PO Last administered on 02/19/19 08:36; Admin Dose 1,000 MG; Start 02/17/19 at 18:30; Stop 02/21/19 at 18:29 Clarithromycin (Biaxin) 500 mg BID PO Last administered on 02/19/19 08:36; Admin Dose 500 MG; Start 02/17/19 at 18:30; Stop 02/21/19 at 18:29 BAL [employer]OY [employer] Feb 19, 2019 09:49
[2019-02-19] MEDS ORDERED: LIDOCAINE 1% (MDV) 20 ML INJ ONE (10:00)
[2019-02-19] MEDS ORDERED: MIDAZOLAM 1 MG/ML 2 ML INJ ONE (10:39)
[2019-02-19] MEDS ORDERED: FENTAnyl 50 MCG/ML VIAL ONE (10:39)
[2019-02-19] MEDS ORDERED: SOD CHLORIDE 0.9% 500 ML ONE (10:39)
--- NOTE | 2019-02-19 12:51 | CONS ---
Assessment/Plan Assessment/Plan Hospital Course (Demo Recall) 59 yo with hyperparathyroidism whom I saw during the last admission and was only found to be iron deficient. anemia w/u otherwise was negative we are asked again to see him for anemia and thrombocytopenia #Anemia -Anemia workup is most consistent with profound iron deficiency given the iron saturation of 6%. Pt is currently on IV iron which we should continue. -past anemia workup during last admission showed: -normal SPEP which rules out monoclonal gammopathy -normal Hg electrophoresis which rules on beta thalassemia -vitamin b12 and folate are wnl -haptoglobin and bilirubun normal making hemolysis unlikely -will order bone marrow bx to ensure there are no other contributing factors to the worsening anemia thrombocytopenia. Flow cytometry with mild atypia noted from last admission #Thrombocytopenia -this may be secondary to medication effect. Methimazole and zosyn can both cause worsening thrombocytopenia. Although the platelet drop may have preceded when these meds were given -need to r/o HIT since patient was given heparin athough clinically low pretest probability for HIT -need to r/o TTP. Will check LDH and peripheral smear -r/o DIC -bone marrow bx ordered as stated above #Hyperthyroidism -management per endocrinology Consultation Date/Type/Reason Admit Date/Time Feb 06, 2019 at 14:46 Initial Consult Date 02/18/19 Requesting Provider: KIRK AREVALO MD Date/Time of Note DATE: 02/19/19 TIME: 12:46 24 HR Interval Summary Free Text/Dictation feeling very weak Exam/Review of Systems Exam Vitals Vital Signs Date Temp Pulse Resp B/P (MAP) Pulse Ox O2 O2 Flow FiO2 Time Delivery Rate 02/19/19 103 08:00 02/19/19 99.4 18 106/60 98 Room Air 07:39 (75) Intake and Output 02/18/19 02/18/19 02/19/19 1515:00 23:00 07:00 IntakeIntake Total 800 ml 1200 ml 325 ml BalanceBalance 800 ml 1200 ml 325 ml Constitutional: frail Psych: anxiety Head: normocephalic, atraumatic Eyes: other (exophthalmos) Neck: non-tender Results Result Diagram: 02/19/19 0722 02/19/19 0722 Results 24hrs Laboratory Tests Test 02/18/19 15:54 02/18/19 17:18 02/18/19 20:07 02/19/19 07:22 Stool Occult Blood NEGATIVE Bedside Glucose 86 104 White Blood Count 7.1 Red Blood Count 3.35 L Hemoglobin 8.3 L Hematocrit 25.6 L Mean Corpuscular 76.4 L Volume Mean Corpuscular 24.8 L Hemoglobin Mean Corpuscular 32.4 Hemoglobin Concent Red Cell 20.5 H Distribution Width Platelet Count 72 L Mean Platelet Volume 9.8 Immature 0.900 H Granulocytes % Neutrophils % 66.4 Lymphocytes % 18.6 Monocytes % 13.2 H Eosinophils % 0.6 Basophils % 0.3 Nucleated Red Blood 0.0 Cells % Immature 0.060 H Granulocytes # Neutrophils # 4.7 Lymphocytes # 1.3 Monocytes # 0.9 Eosinophils # 0.0 Basophils # 0.0 Nucleated Red Blood 0.0 Cells # Sodium Level 123 L Potassium Level 3.5 Chloride Level 90 L Carbon Dioxide Level 27 Anion Gap 6 Blood Urea Nitrogen 5 L Creatinine 0.69 Est Glomerular > 60 Filtrat Rate mL/min Glucose Level 106 Calcium Level 8.1 L Magnesium Level 1.3 L Test 02/19/19 08:00 02/19/19 12:40 Bedside Glucose 146 96 Medications Medication Current Medications IV Flush (NS 3 ml) 3 ml PER PROTOCOL IV ; Start 02/06/19 at 15:00 Ondansetron HCl (Zofran Inj) 4 mg Q6H PRN IV NAUSEA/VOMITING Last administered on 02/16/19at 11:54; Admin Dose 4 MG; Start 02/06/19 at 15:00 Acetaminophen (Tylenol Tab) 650 mg Q6H PRN PO .PAIN 1-3 OR TEMP Last administered on 02/18/19at 23:28; Admin Dose 650 MG; Start 02/06/19 at 15:00 Atorvastatin Calcium (Lipitor) 10 mg DAILY@21 PO Last administered on 02/18/19at 20:08; Admin Dose 10 MG; Start 02/06/19 at 21:00 Miscellaneous Information 1 ea NOTE XX ; Start 02/06/19 at 16:00 Glucose (Glutose) 15 gm Q15M PRN PO DECREASED GLUCOSE; Start 02/06/19 at 16:00 Glucose (Glutose) 22.5 gm Q15M PRN PO DECREASED GLUCOSE; Start 02/06/19 at 16:00 Dextrose (D50w Syringe) 25 ml Q15M PRN IV DECREASED GLUCOSE; Start 02/06/19 at 16:00 Dextrose (D50w Syringe) 50 ml Q15M PRN IV DECREASED GLUCOSE; Start 02/06/19 at 16:00 Glucagon (Glucagen) 1 mg Q15M PRN IM DECREASED GLUCOSE; Start 02/06/19 at 16:00 Glucose (Glutose) 15 gm Q15M PRN BUCCAL DECREASED GLUCOSE; Start 02/06/19 at 16:00 Pantoprazole (Protonix Tab) 40 mg BID@0600,1800 PO Last administered on at 05:06; Admin Dose 40 MG; Start 02/07/19 at 06:00 Insulin Aspart (Novolog Insulin Pen) 7 unit WITH MEALS SC Last administered on 02/14/19at 17:39; Admin Dose 7 UNIT; Start 02/07/19 at 09:30; Status Hold Miscellaneous Information (* Miscellaneous Pharmacy Order) Treatment of Hypoglycemia: 1.BG 51... Per protocol XX ; Start 02/08/19 at 09:00 Dextrose (D50w Syringe) 25 ml Q15M PRN IV .DECREASED GLUCOSE; Start 02/08/19 at 09:00 Dextrose (D50w Syringe) 50 ml Q15M PRN IV .DECREASED GLUCOSE; Start 02/08/19 at 09:00 Methimazole (Tapazole) 30 mg BID PO Last administered on 02/17/19at 08:28; Admin Dose 30 MG; Start 02/08/19 at 13:30; Status Hold Diagnostic Test (Pha) (Accu-Chek) 1 ea 02 XX Last administered on 02/14/19at 02:00; Admin Dose 1 EA; Start 02/10/19 at 02:00 Insulin Aspart (Novolog Insulin Pen) NOVOLOG *MODERATE* ALGORITHM WITH MEALS BEDTIME SC Last administered on 02/19/19at 09:16; Admin Dose 2 UNIT; Start 02/09/19 at 17:35 Heparin Sodium (Porcine) (Heparin (5000 Units/1ml)) 5,000 unit BID SC Last administered on 02/14/19at 22:48; Admin Dose 5,000 UNIT; Start 02/11/19 at 09:00; Status Hold Acetaminophen/ Hydrocodone Bitart ([place] (5/325)) 1 tab Q6H PRN PO MODERATE PAIN LEVEL 4-6; Start 02/12/19 at 09:00 Nystatin (Nystatin Susp) 5 ml QID PO Last administered on 02/19/19 12:41; Admin Dose 5 ML; Start 02/14/19 at 13:00; Stop 02/21/19 at 12:59 Senna (Senokot) 2 tab BID PO Last administered on 02/19/19 08:36; Admin Dose 2 TAB; Start 02/16/19 at 21:00 Piperacillin Sod/ Tazobactam Sod 100 ml @ 200 mls/hr Q6 IVPB Last administered on 02/19/19 12:41; Admin Dose 200 MLS/HR; Start 02/16/19 at 18:00 Diltiazem HCl 125 ml @ 5 mls/hr TITRATE IV Last administered on 02/19/19 09:14; Admin Dose 10 MLS/HR; Start 02/17/19 at 05:00 Insulin Glargine (Lantus) 5 units DAILY@0930 SC Last administered on 02/19/19 09:33; Admin Dose 5 UNITS; Start 02/18/19 at 09:30 Bismuth Subsalicylate (Pepto-Bismol) 30 ml QID PO Last administered on 02/18/19 20:08; Admin Dose 30 ML; Start 02/17/19 at 17:30 Amoxicillin (Amoxicillin) 1,000 mg BID PO Last administered on 02/19/19 08:36; Admin Dose 1,000 MG; Start 02/17/19 at 18:30; Stop 02/21/19 at 18:29 Clarithromycin (Biaxin) 500 mg BID PO Last administered on 02/19/19 08:36; Admin Dose 500 MG; Start 02/17/19 at 18:30; Stop 02/21/19 at 18:29 NAYAN OAKLEY Feb 19, 2019 12:51
--- NOTE | 2019-02-19 16:49 | PN ---
Date/Time of Note Date/Time of Note DATE: 02/19/19 TIME: 16:48 Assessment/Plan VTE Prophylaxis Risk score (from Ns)>0 risk: 3 SCD applied (from Nsg): Yes Pharmacological prophylaxis: heparin Lines/Catheters IV Catheter Type (from Nrsg): Peripheral IV Urinary Cath still in place: No Assessment/Plan Hospital Course 59 yo male with hyperthyroidism and pancytopenias Hyperthyroid: - Off of anti-thyroidal meds per endocrine - Awaits ablation Cytopenias: - Flow cytometry suggested mild atypia, bone marrow biopsy per Dr Dela Cruz DMII: - Basal/bolus insulin Hyponatremia: - Chronic SIADH - Will start salt tabs, FW restrition Result Diagram: 02/19/1972102/19/19 0722 Results 24hrs Laboratory Tests Test 02/18/19 17:18 02/18/19 20:07 02/19/19 07:22 02/19/19 08:00 Bedside Glucose 86 104 146 White Blood Count 7.1 Red Blood Count 3.35 L Hemoglobin 8.3 L Hematocrit 25.6 L Mean Corpuscular 76.4 L Volume Mean Corpuscular 24.8 L Hemoglobin Mean Corpuscular 32.4 Hemoglobin Concent Red Cell 20.5 H Distribution Width Platelet Count 72 L Mean Platelet Volume 9.8 Immature 0.900 H Granulocytes % Neutrophils % 66.4 Lymphocytes % 18.6 Monocytes % 13.2 H Eosinophils % 0.6 Basophils % 0.3 Nucleated Red Blood 0.0 Cells % Immature 0.060 H Granulocytes # Neutrophils # 4.7 Lymphocytes # 1.3 Monocytes # 0.9 Eosinophils # 0.0 Basophils # 0.0 Nucleated Red Blood 0.0 Cells # Sodium Level 123 L Potassium Level 3.5 Chloride Level 90 L Carbon Dioxide Level 27 Anion Gap 6 Blood Urea Nitrogen 5 L Creatinine 0.69 Est Glomerular > 60 Filtrat Rate mL/min Glucose Level 106 Calcium Level 8.1 L Magnesium Level 1.3 L Test 02/19/19 12:40 Bedside Glucose 96 Subjective 24 Hr Interval Summary Free Text/Dictation Went for bone marrow biopsy today Exam/Review of Systems Exam Vitals Vital Signs Date Temp Pulse Resp B/P (MAP) Pulse Ox O2 O2 Flow FiO2 Time Delivery Rate 02/19/19 110 16:02 02/19/19 99.6 18 102/58 95 Room Air 15:02 (73) Intake and Output 02/18/19 02/18/19 02/19/19 1515:00 23:00 07:00 IntakeIntake Total 800 ml 1200 ml 325 ml BalanceBalance 800 ml 1200 ml 325 ml Results Results 24hrs Laboratory Tests Test 02/18/19 17:18 02/18/19 20:07 02/19/19 07:22 02/19/19 08:00 Bedside Glucose 86 104 146 White Blood Count 7.1 Red Blood Count 3.35 L Hemoglobin 8.3 L Hematocrit 25.6 L Mean Corpuscular 76.4 L Volume Mean Corpuscular 24.8 L Hemoglobin Mean Corpuscular 32.4 Hemoglobin Concent Red Cell 20.5 H Distribution Width Platelet Count 72 L Mean Platelet Volume 9.8 Immature 0.900 H Granulocytes % Neutrophils % 66.4 Lymphocytes % 18.6 Monocytes % 13.2 H Eosinophils % 0.6 Basophils % 0.3 Nucleated Red Blood 0.0 Cells % Immature 0.060 H Granulocytes # Neutrophils # 4.7 Lymphocytes # 1.3 Monocytes # 0.9 Eosinophils # 0.0 Basophils # 0.0 Nucleated Red Blood 0.0 Cells # Sodium Level 123 L Potassium Level 3.5 Chloride Level 90 L Carbon Dioxide Level 27 Anion Gap 6 Blood Urea Nitrogen 5 L Creatinine 0.69 Est Glomerular > 60 Filtrat Rate mL/min Glucose Level 106 Calcium Level 8.1 L Magnesium Level 1.3 L Test 02/19/19 12:40 Bedside Glucose 96 Medications Medication Current Medications IV Flush (NS 3 ml) 3 ml PER PROTOCOL IV ; Start 02/06/19 at 15:00 Ondansetron HCl (Zofran Inj) 4 mg Q6H PRN IV NAUSEA/VOMITING Last administered on 02/16/19at 11:54; Admin Dose 4 MG; Start 02/06/19 at 15:00 Acetaminophen (Tylenol Tab) 650 mg Q6H PRN PO .PAIN 1-3 OR TEMP Last administered on 02/18/19at 23:28; Admin Dose 650 MG; Start 02/06/19 at 15:00 Atorvastatin Calcium (Lipitor) 10 mg DAILY@21 PO Last administered on 02/18/19at 20:08; Admin Dose 10 MG; Start 02/06/19 at 21:00 Miscellaneous Information 1 ea NOTE XX ; Start 02/06/19 at 16:00 Glucose (Glutose) 15 gm Q15M PRN PO DECREASED GLUCOSE; Start 02/06/19 at 16:00 Glucose (Glutose) 22.5 gm Q15M PRN PO DECREASED GLUCOSE; Start 02/06/19 at 16:00 Dextrose (D50w Syringe) 25 ml Q15M PRN IV DECREASED GLUCOSE; Start 02/06/19 at 16:00 Dextrose (D50w Syringe) 50 ml Q15M PRN IV DECREASED GLUCOSE; Start 02/06/19 at 16:00 Glucagon (Glucagen) 1 mg Q15M PRN IM DECREASED GLUCOSE; Start 02/06/19 at 16:00 Glucose (Glutose) 15 gm Q15M PRN BUCCAL DECREASED GLUCOSE; Start 02/06/19 at 16:00 Pantoprazole (Protonix Tab) 40 mg BID@0600,1800 PO Last administered on 02/19/19at 05:06; Admin Dose 40 MG; Start 02/07/19 at 06:00 Insulin Aspart (Novolog Insulin Pen) 7 unit WITH MEALS SC Last administered on 02/14/19at 17:39; Admin Dose 7 UNIT; Start 02/07/19 at 09:30; Status Hold Miscellaneous Information (* Miscellaneous Pharmacy Order) Treatment of Hypoglycemia: 1.BG 51... Per protocol XX ; Start 02/08/19 at 09:00 Dextrose (D50w Syringe) 25 ml Q15M PRN IV .DECREASED GLUCOSE; Start 02/08/19 at 09:00 Dextrose (D50w Syringe) 50 ml Q15M PRN IV .DECREASED GLUCOSE; Start 02/08/19 at 09:00 Methimazole (Tapazole) 30 mg BID PO Last administered on 02/17/19at 08:28; Admin Dose 30 MG; Start 02/08/19 at 13:30; Status Hold Insulin Aspart (Novolog Insulin Pen) NOVOLOG *MODERATE* ALGORITHM WITH MEALS BEDTIME SC Last administered on 02/19/19at 09:16; Admin Dose 2 UNIT; Start 02/09/19 at 17:35 Heparin Sodium (Porcine) (Heparin (5000 Units/1ml)) 5,000 unit BID SC Last administered on 02/14/19at 22:48; Admin Dose 5,000 UNIT; Start 02/11/19 at 09:00; Status Hold Acetaminophen/ Hydrocodone Bitart ([place] (5/325)) 1 tab Q6H PRN PO MODERATE PAIN LEVEL 4-6; Start 02/12/19 at 09:00 Nystatin (Nystatin Susp) 5 ml QID PO Last administered on 02/19/19 12:41; Admin Dose 5 ML; Start 02/14/19 at 13:00; Stop 02/21/19 at 12:59 Senna (Senokot) 2 tab BID PO Last administered on 02/19/19 08:36; Admin Dose 2 TAB; Start 02/16/19 at 21:00 Piperacillin Sod/ Tazobactam Sod 100 ml @ 200 mls/hr Q6 IVPB Last administered on 02/19/19 12:41; Admin Dose 200 MLS/HR; Start 02/16/19 at 18:00 Insulin Glargine (Lantus) 5 units DAILY@0930 SC Last administered on 02/19/19 09:33; Admin Dose 5 UNITS; Start 02/18/19 at 09:30 Bismuth Subsalicylate (Pepto-Bismol) 30 ml QID PO Last administered on 02/19/19 12:50; Admin Dose 30 ML; Start 02/17/19 at 17:30 Amoxicillin (Amoxicillin) 1,000 mg BID PO Last administered on 02/19/19 08:36; Admin Dose 1,000 MG; Start 02/17/19 at 18:30; Stop 02/21/19 at 18:29 Clarithromycin (Biaxin) 500 mg BID PO Last administered on 02/19/19 08:36; Admin Dose 500 MG; Start 02/17/19 at 18:30; Stop 02/21/19 at 18:29 KIRK AREVALO MD Feb 19, 2019 16:49
[2019-02-19] MEDS: ATORVASTATIN 10 MG TAB PO SCH (21:31)
[2019-02-19] MEDS: SODIUM CHLORIDE 1 GM TAB PO SCH (21:43)
[2019-02-19] MEDS: ACETAMINOPHEN 325 MG TAB PO PRN (21:53)
[2019-02-20] VITALS (13 sets, daily range): BP systolic 84–126; BP diastolic 50–67; PULSE 91–111; RESP 18–19
[2019-02-20] MEDS ORDERED: SOD CHLORIDE 0.9% 500 ML IV ONE
[2019-02-20] MEDS: PIPER-TAZO 3.375 GM IV (PMX) 100 ML IVPB SCH ×3 (00:32→11:57)
[2019-02-20] MEDS: PANTOPRAZOLE (EC) 40 MG TAB PO SCH ×2 (06:04→17:11)
[2019-02-20] MEDS: INSULIN ASPART [NOVOLOG] 3 ML PEN SC SCH ×4 (07:55→22:16)
[2019-02-20] MEDS: NYSTATIN SUSP 5 ML CUP PO SCH ×4 (09:05→20:23)
[2019-02-20] MEDS: AMOXICILLIN 500 MG CAP PO SCH ×2 (09:06→20:24)
[2019-02-20] MEDS: SENNA TAB PO SCH ×2 (09:06→20:24)
[2019-02-20] MEDS: SODIUM CHLORIDE 1 GM TAB PO SCH ×3 (09:06→20:24)
[2019-02-20] MEDS: CLARITHROMYCIN 500 MG TAB PO SCH ×2 (09:06→20:24)
[2019-02-20] MEDS: BISMUTH SUBSALICYLATE 240 ML BTL PO SCH ×4 (09:11→20:29)
[2019-02-20] MEDS: INSULIN GLARGINE [LANTus] (100 UNITS/ML) SYG SC SCH (10:06)
[2019-02-20] MEDS: METOPROLOL 50 MG TAB PO SCH ×2 (10:14→20:24)
--- NOTE | 2019-02-20 10:30 | CONS ---
Assessment/Plan Assessment/Plan Problems: (1) Graves' disease with exophthalmos Status: Chronic Comment: He has done well with the antithyroid drug methimazole and tolerating it. He is presently off the methimazole so we can get a clean look at his nuclear medicine thyroid uptake and scan. Dr. Mendiola will be out of town which means that are licensing for giving radioactive iodine ablation will have to be pending when she returns. As such we need to get him set up for thyroid uptake and scan at the very end of February followed by radioactive iodine ablation at the beginning of March. This should be plan for outpatient. As soon as he has had the radioactive iodine ablation he should go back on the methimazole 30 mg twice daily for a total of 8 weeks and then it should stop altogether. Regarding his other medical issues that workup continues (2) Diabetes mellitus type 2 in nonobese Status: Chronic Comment: Adequate control Consultation Date/Type/Reason Admit Date/Time Feb 06, 2019 at 14:46 Initial Consult Date 02/06/19 Type of Consult Endocrine Reason for Consultation Graves' disease with hyperthyroidism; pancytopenia; diabetes mellitus type 2 Requesting Provider: KIRK AREVALO MD Date/Time of Note DATE: 02/20/19 TIME: 10:28 24 HR Interval Summary Free Text/Dictation Patient reports from endocrine standpoint he is doing well Detailed Summary Endocrine: no complaints Exam/Review of Systems Exam Vitals Vital Signs Date Temp Pulse Resp B/P (MAP) Pulse Ox O2 O2 Flow FiO2 Time Delivery Rate 02/20/19 110 08:05 02/20/19 99.1 18 105/59 97 Nasal 07:25 (74) Cannula 02/19/19 2.0 20:00 Intake and Output 02/19/19 02/19/19 02/20/19 1515:00 23:00 07:00 IntakeIntake Total 360 ml BalanceBalance 360 ml Constitutional: alert, oriented Results Result Diagram: 02/19/1972102/19/19721 Results 24hrs Laboratory Tests Test 02/19/19 12:40 02/19/19 16:44 02/19/19 17:45 02/19/19 20:34 Bedside Glucose 96 141 162 Fibrinogen 383.0 Test 02/20/19 08:13 Bedside Glucose 105 Medications Medication Current Medications IV Flush (NS 3 ml) 3 ml PER PROTOCOL IV ; Start 02/06/19 at 15:00 Ondansetron HCl (Zofran Inj) 4 mg Q6H PRN IV NAUSEA/VOMITING Last administered on 02/16/19at 11:54; Admin Dose 4 MG; Start 02/06/19 at 15:00 Acetaminophen (Tylenol Tab) 650 mg Q6H PRN PO .PAIN 1-3 OR TEMP Last administered on 02/19/19at 21:53; Admin Dose 650 MG; Start 02/06/19 at 15:00 Atorvastatin Calcium (Lipitor) 10 mg DAILY@21 PO Last administered on 02/19/19at 21:31; Admin Dose 10 MG; Start 02/06/19 at 21:00 Miscellaneous Information 1 ea NOTE XX ; Start 02/06/19 at 16:00 Glucose (Glutose) 15 gm Q15M PRN PO DECREASED GLUCOSE; Start 02/06/19 at 16:00 Glucose (Glutose) 22.5 gm Q15M PRN PO DECREASED GLUCOSE; Start 02/06/19 at 16:00 Dextrose (D50w Syringe) 25 ml Q15M PRN IV DECREASED GLUCOSE; Start 02/06/19 at 16:00 Dextrose (D50w Syringe) 50 ml Q15M PRN IV DECREASED GLUCOSE; Start 02/06/19 at 16:00 Glucagon (Glucagen) 1 mg Q15M PRN IM DECREASED GLUCOSE; Start 02/06/19 at 16:00 Glucose (Glutose) 15 gm Q15M PRN BUCCAL DECREASED GLUCOSE; Start 02/06/19 at 16:00 Pantoprazole (Protonix Tab) 40 mg BID@0600,1800 PO Last administered on at 06:04; Admin Dose 40 MG; Start 02/07/19 at 06:00 Insulin Aspart (Novolog Insulin Pen) 7 unit WITH MEALS SC Last administered on 02/14/19at 17:39; Admin Dose 7 UNIT; Start 02/07/19 at 09:30; Status Hold Miscellaneous Information (* Miscellaneous Pharmacy Order) Treatment of Hypoglycemia: 1.BG 51... Per protocol XX ; Start 02/08/19 at 09:00 Dextrose (D50w Syringe) 25 ml Q15M PRN IV .DECREASED GLUCOSE; Start 02/08/19 at 09:00 Dextrose (D50w Syringe) 50 ml Q15M PRN IV .DECREASED GLUCOSE; Start 02/08/19 at 09:00 Methimazole (Tapazole) 30 mg BID PO Last administered on 02/17/19 08:28; Admin Dose 30 MG; Start 02/08/19 at 13:30; Status Hold Insulin Aspart (Novolog Insulin Pen) NOVOLOG *MODERATE* ALGORITHM WITH MEALS BEDTIME SC Last administered on 02/19/19 18:03; Admin Dose 2 UNIT; Start 02/09/19 at 17:35 Heparin Sodium (Porcine) (Heparin (5000 Units/1ml)) 5,000 unit BID SC Last administered on 02/14/19 22:48; Admin Dose 5,000 UNIT; Start 02/11/19 at 09:00; Status Hold Acetaminophen/ Hydrocodone Bitart ([place] (5/325)) 1 tab Q6H PRN PO MODERATE PAIN LEVEL 4-6; Start 02/12/19 at 09:00 Nystatin (Nystatin Susp) 5 ml QID PO Last administered on 02/20/19 09:05; Admin Dose 5 ML; Start 02/14/19 at 13:00; Stop 02/21/19 at 12:59 Senna (Senokot) 2 tab BID PO Last administered on 02/20/19 09:06; Admin Dose 2 TAB; Start 02/16/19 at 21:00 Piperacillin Sod/ Tazobactam Sod 100 ml @ 200 mls/hr Q6 IVPB Last administered on 02/20/19 06:05; Admin Dose 200 MLS/HR; Start 02/16/19 at 18:00 Insulin Glargine (Lantus) 5 units DAILY@0930 SC Last administered on 02/20/19 10:06; Admin Dose 5 UNITS; Start 02/18/19 at 09:30 Bismuth Subsalicylate (Pepto-Bismol) 30 ml QID PO Last administered on 02/20/19 09:11; Admin Dose 30 ML; Start 02/17/19 at 17:30 Amoxicillin (Amoxicillin) 1,000 mg BID PO Last administered on 02/20/19 09:06; Admin Dose 1,000 MG; Start 02/17/19 at 18:30; Stop 02/21/19 at 18:29 Clarithromycin (Biaxin) 500 mg BID PO Last administered on 02/20/19 09:06; Admin Dose 500 MG; Start 02/17/19 at 18:30; Stop 02/21/19 at 18:29 Sodium Chloride (Nacl) 1 gm TID PO Last administered on 02/20/19 09:06; Admin Dose 1 GM; Start 02/19/19 at 21:00 Metoprolol Tartrate (Lopressor) 50 mg BID PO Last administered on 02/20/19at 10:14; Admin Dose 50 MG; Start 02/20/19 at 10:00 ANA GARCIA MD Feb 20, 2019 10:30
--- NOTE | 2019-02-20 13:39 | CONS ---
Assessment/Plan Assessment/Plan Hospital Course (Demo Recall) #Anemia -Anemia workup is most consistent with iron deficiency given the iron saturation of 6%. pt received 5 days of IV iron -past anemia workup reveals the following: -normal SPEP which rules out monoclonal gammopathy -normal Hg electrophoresis which rules on beta thalassemia -vitamin b12 and folate are wnl -haptoglobin normal making hemolysis unlikely -f/u bone marrow bx to ensure there are no other contributing factors to the worsening anemia thrombocytopenia. Flow cytometry with mild atypia noted from last admission #Thrombocytopenia -this may be secondary to medication effect. Methimazole and zosyn can both cause worsening thrombocytopenia. Although the platelet drop may have preceded when these meds were given -need to r/o HIT since patient was given heparin -need to r/o TTP. Will check LDH and peripheral smear. re-ordered labs today -DIC unlikely given normal fibriogen -bone marrow bx ordered as stated above #Hyperthyroidism -management per endocrinology Thank you for the opportunity to participate in this patients care A total of 40 minutes of face to face time was spent speaking with the patient, of which greater than 50% was spent in counseling and coordination of care and the detailed question and answer session. Consultation Date/Type/Reason Admit Date/Time Feb 06, 2019 at 14:46 Initial Consult Date 02/18/19 Type of Consult oncology Reason for Consultation pancytopenia Requesting Provider: KIRK AREVALO MD Date/Time of Note DATE: 02/20/19 TIME: 13:33 24 HR Interval Summary Free Text/Dictation no acute overnight events. pt had the bone marrow bx done yesterday. Exam/Review of Systems Exam Vitals Vital Signs Date Temp Pulse Resp B/P (MAP) Pulse Ox O2 O2 Flow FiO2 Time Delivery Rate 02/20/19 109 13:31 02/20/19 98.2 18 93/54 (67) 100 Nasal 11:10 Cannula 02/20/19 2.0 09:00 Intake and Output 02/19/19 02/19/19 02/20/19 1515:00 23:00 07:00 IntakeIntake Total 360 ml BalanceBalance 360 ml Constitutional: alert, oriented, distress, frail Psych: anxiety, depression Head: normocephalic Eyes: nl conjunctiva ENMT: nl external ears & nose Neck: supple Respiratory: clear to auscultation Cardiovascular: regular rate and rhythm Gastrointestinal: soft Musculoskeletal: nl extremities to inspection Results Result Diagram: 02/19/19 0722 02/20/19 1132 Results 24hrs Laboratory Tests Test 02/19/19 16:44 02/19/19 17:45 02/19/19 20:34 02/20/19 08:13 Fibrinogen 383.0 Bedside Glucose 141 162 105 Test 02/20/19 11:32 02/20/19 12:08 Sodium Level 124 L Potassium Level 3.6 Chloride Level 91 L Carbon Dioxide Level 26 Anion Gap 7 Blood Urea Nitrogen 6 L Creatinine 0.70 Est Glomerular > 60 Filtrat Rate mL/min Glucose Level 139 Calcium Level 8.0 L Bedside Glucose 142 Medications Medication Current Medications IV Flush (NS 3 ml) 3 ml PER PROTOCOL IV ; Start 02/06/19 at 15:00 Ondansetron HCl (Zofran Inj) 4 mg Q6H PRN IV NAUSEA/VOMITING Last administered on 02/16/19at 11:54; Admin Dose 4 MG; Start 02/06/19 at 15:00 Acetaminophen (Tylenol Tab) 650 mg Q6H PRN PO .PAIN 1-3 OR TEMP Last administered on 02/19/19at 21:53; Admin Dose 650 MG; Start 02/06/19 at 15:00 Atorvastatin Calcium (Lipitor) 10 mg DAILY@21 PO Last administered on 02/19/19at 21:31; Admin Dose 10 MG; Start 02/06/19 at 21:00 Miscellaneous Information 1 ea NOTE XX ; Start 02/06/19 at 16:00 Glucose (Glutose) 15 gm Q15M PRN PO DECREASED GLUCOSE; Start 02/06/19 at 16:00 Glucose (Glutose) 22.5 gm Q15M PRN PO DECREASED GLUCOSE; Start 02/06/19 at 16:00 Dextrose (D50w Syringe) 25 ml Q15M PRN IV DECREASED GLUCOSE; Start 02/06/19 at 16:00 Dextrose (D50w Syringe) 50 ml Q15M PRN IV DECREASED GLUCOSE; Start 02/06/19 at 16:00 Glucagon (Glucagen) 1 mg Q15M PRN IM DECREASED GLUCOSE; Start 02/06/19 at 16:00 Glucose (Glutose) 15 gm Q15M PRN BUCCAL DECREASED GLUCOSE; Start 02/06/19 at 16:00 Pantoprazole (Protonix Tab) 40 mg BID@0600,1800 PO Last administered on 02/20/19 at 06:04; Admin Dose 40 MG; Start 02/07/19 at 06:00 Insulin Aspart (Novolog Insulin Pen) 7 unit WITH MEALS SC Last administered on 02/14/19at 17:39; Admin Dose 7 UNIT; Start 02/07/19 at 09:30; Status Hold Miscellaneous Information (* Miscellaneous Pharmacy Order) Treatment of Hypoglycemia: 1.BG 51... Per protocol XX ; Start 02/08/19 at 09:00 Dextrose (D50w Syringe) 25 ml Q15M PRN IV .DECREASED GLUCOSE; Start 02/08/19 at 09:00 Dextrose (D50w Syringe) 50 ml Q15M PRN IV .DECREASED GLUCOSE; Start 02/08/19 at 09:00 Methimazole (Tapazole) 30 mg BID PO Last administered on 02/17/19 08:28; Admin Dose 30 MG; Start 02/08/19 at 13:30; Status Hold Insulin Aspart (Novolog Insulin Pen) NOVOLOG *MODERATE* ALGORITHM WITH MEALS BEDTIME SC Last administered on 02/20/19 12:36; Admin Dose 2 UNIT; Start at 17:35 Heparin Sodium (Porcine) (Heparin (5000 Units/1ml)) 5,000 unit BID SC Last administered on 02/14/19 22:48; Admin Dose 5,000 UNIT; Start 02/11/19 at 09:00; Status Hold Acetaminophen/ Hydrocodone Bitart ([place] (5/325)) 1 tab Q6H PRN PO MODERATE PAIN LEVEL 4-6; Start 02/12/19 at 09:00 Nystatin (Nystatin Susp) 5 ml QID PO Last administered on 02/20/19 12:10; Admin Dose 5 ML; Start 02/14/19 at 13:00; Stop 02/21/19 at 12:59 Senna (Senokot) 2 tab BID PO Last administered on 02/20/19 09:06; Admin Dose 2 TAB; Start 02/16/19 at 21:00 Piperacillin Sod/ Tazobactam Sod 100 ml @ 200 mls/hr Q6 IVPB Last administered on 02/20/19 11:57; Admin Dose 200 MLS/HR; Start 02/16/19 at 18:00 Insulin Glargine (Lantus) 5 units DAILY@0930 SC Last administered on 02/20/19 10:06; Admin Dose 5 UNITS; Start 02/18/19 at 09:30 Bismuth Subsalicylate (Pepto-Bismol) 30 ml QID PO Last administered on 02/20/19 09:11; Admin Dose 30 ML; Start 02/17/19 at 17:30 Amoxicillin (Amoxicillin) 1,000 mg BID PO Last administered on 02/20/19 09:06; Admin Dose 1,000 MG; Start 02/17/19 at 18:30; Stop 02/21/19 at 18:29 Clarithromycin (Biaxin) 500 mg BID PO Last administered on 02/20/19 09:06; Admin Dose 500 MG; Start 02/17/19 at 18:30; Stop 02/21/19 at 18:29 Sodium Chloride (Nacl) 1 gm TID PO Last administered on 02/20/19 12:10; Admin Dose 1 GM; Start 02/19/19 at 21:00 Metoprolol Tartrate (Lopressor) 50 mg BID PO Last administered on 02/20/19 10:14; Admin Dose 50 MG; Start 02/20/19 at 10:00 HOLDEN CROWE M.D. Feb 20, 2019 13:39
--- NOTE | 2019-02-20 16:55 | PN ---
Date/Time of Note Date/Time of Note DATE: 02/20/19 TIME: 16:55 Assessment/Plan VTE Prophylaxis Risk score (from Ns)>0 risk: 3 SCD applied (from Ns): Yes Pharmacological prophylaxis: heparin Lines/Catheters IV Catheter Type (from Nrsg): Peripheral IV Urinary Cath still in place: No Assessment/Plan Hospital Course 59 yo male with hyperthyroidism, hyponatremia, and pancytopenias Hyperthyroid: - Off of anti-thyroidal meds per endocrine - Awaits ablation Cytopenias: - Flow cytometry suggested mild atypia, bone marrow biopsy per Dr Dela Cruz. LDH very elevated DMII: - Basal/bolus insulin Hyponatremia: - Chronic SIADH - Will start salt tabs, FW restrition Result Diagram: 02/19/19 0722 02/20/19 1132 Results 24hrs Laboratory Tests Test 02/19/19 17:45 02/19/19 20:34 02/20/19 08:13 02/20/19 11:32 Bedside Glucose 141 162 105 Sodium Level 124 L Potassium Level 3.6 Chloride Level 91 L Carbon Dioxide Level 26 Anion Gap 7 Blood Urea Nitrogen 6 L Creatinine 0.70 Est Glomerular > 60 Filtrat Rate mL/min Glucose Level 139 Calcium Level 8.0 L Test 02/20/19 12:08 02/20/19 14:03 Bedside Glucose 142 Lactate 2366 H Dehydrogenase Subjective 24 Hr Interval Summary Free Text/Dictation Feels well, no change to status Exam/Review of Systems Exam Vitals Vital Signs Date Temp Pulse Resp B/P (MAP) Pulse Ox O2 O2 Flow FiO2 Time Delivery Rate 02/20/19 109 16:01 02/20/19 100.2 18 126/67 97 Nasal 15:20 (86) Cannula 02/20/19 2.0 09:00 Intake and Output 02/19/19 02/19/19 02/20/19 1515:00 23:00 07:00 IntakeIntake Total 360 ml BalanceBalance 360 ml Constitutional: alert, oriented, well developed Psych: no complaints, nl mood/affect Head: normocephalic, atraumatic Eyes: nl conjunctiva, EOMI, nl lids, nl sclera, PERRL ENMT: nl external ears & nose, nl lips & teeth, nl nasal mucosa & septum Neck: supple, non-tender Respiratory: clear to auscultation, normal air movement Cardiovascular: regular rate and rhythm, nl pulses Gastrointestinal: soft, nl liver, spleen, non-tender Musculoskeletal: nl extremities to inspection, nl gait and stance Extremities: normal pulses Neurological: DISABILITY INSURANCE CLAIM EXAMINER II-XII intact, nl mental status, nl speech, nl strength Skin: nl turgor; No rash or lesions Lymph: nl lymph nodes Results Results 24hrs Laboratory Tests Test 02/19/19 17:45 02/19/19 20:34 02/20/19 08:13 02/20/19 11:32 Bedside Glucose 141 162 105 Sodium Level 124 L Potassium Level 3.6 Chloride Level 91 L Carbon Dioxide Level 26 Anion Gap 7 Blood Urea Nitrogen 6 L Creatinine 0.70 Est Glomerular > 60 Filtrat Rate mL/min Glucose Level 139 Calcium Level 8.0 L Test 02/20/19 12:08 02/20/19 14:03 Bedside Glucose 142 Lactate 2366 H Dehydrogenase Medications Medication Current Medications IV Flush (NS 3 ml) 3 ml PER PROTOCOL IV ; Start 02/06/19 at 15:00 Ondansetron HCl (Zofran Inj) 4 mg Q6H PRN IV NAUSEA/VOMITING Last administered on 02/16/19at 11:54; Admin Dose 4 MG; Start 02/06/19 at 15:00 Acetaminophen (Tylenol Tab) 650 mg Q6H PRN PO .PAIN 1-3 OR TEMP Last administered on 02/19/19at 21:53; Admin Dose 650 MG; Start 02/06/19 at 15:00 Atorvastatin Calcium (Lipitor) 10 mg DAILY@21 PO Last administered on 02/19/19at 21:31; Admin Dose 10 MG; Start 02/06/19 at 21:00 Miscellaneous Information 1 ea NOTE XX ; Start 02/06/19 at 16:00 Glucose (Glutose) 15 gm Q15M PRN PO DECREASED GLUCOSE; Start 02/06/19 at 16:00 Glucose (Glutose) 22.5 gm Q15M PRN PO DECREASED GLUCOSE; Start 02/06/19 at 16:00 Dextrose (D50w Syringe) 25 ml Q15M PRN IV DECREASED GLUCOSE; Start 02/06/19 at 16:00 Dextrose (D50w Syringe) 50 ml Q15M PRN IV DECREASED GLUCOSE; Start 02/06/19 at 16:00 Glucagon (Glucagen) 1 mg Q15M PRN IM DECREASED GLUCOSE; Start 02/06/19 at 16:00 Glucose (Glutose) 15 gm Q15M PRN BUCCAL DECREASED GLUCOSE; Start 02/06/19 at 16:00 Pantoprazole (Protonix Tab) 40 mg BID@0600,1800 PO Last administered on 02/20/19 06:04; Admin Dose 40 MG; Start 02/07/19 at 06:00 Insulin Aspart (Novolog Insulin Pen) 7 unit WITH MEALS SC Last administered on 02/14/19at 17:39; Admin Dose 7 UNIT; Start 02/07/19 at 09:30; Status Hold Miscellaneous Information (* Miscellaneous Pharmacy Order) Treatment of Hypoglycemia: 1.BG 51... Per protocol XX ; Start 02/08/19 at 09:00 Dextrose (D50w Syringe) 25 ml Q15M PRN IV .DECREASED GLUCOSE; Start 02/08/19 at 09:00 Dextrose (D50w Syringe) 50 ml Q15M PRN IV .DECREASED GLUCOSE; Start 02/08/19 at 09:00 Methimazole (Tapazole) 30 mg BID PO Last administered on 02/17/19 08:28; Admin Dose 30 MG; Start 02/08/19 at 13:30; Status Hold Insulin Aspart (Novolog Insulin Pen) NOVOLOG *MODERATE* ALGORITHM WITH MEALS BEDTIME SC Last administered on 02/20/19 12:36; Admin Dose 2 UNIT; Start 02/09/19 at 17:35 Heparin Sodium (Porcine) (Heparin (5000 Units/1ml)) 5,000 unit BID SC Last administered on 02/14/19 22:48; Admin Dose 5,000 UNIT; Start 02/11/19 at 09:00; Status Hold Acetaminophen/ Hydrocodone Bitart ([place] (5/325)) 1 tab Q6H PRN PO MODERATE PAIN LEVEL 4-6; Start 02/12/19 at 09:00 Nystatin (Nystatin Susp) 5 ml QID PO Last administered on 02/20/19at 12:10; Admin Dose 5 ML; Start 02/14/19 at 13:00; Stop 02/21/19 at 12:59 Senna (Senokot) 2 tab BID PO Last administered on 02/20/19 09:06; Admin Dose 2 TAB; Start 02/16/19 at 21:00 Piperacillin Sod/ Tazobactam Sod 100 ml @ 200 mls/hr Q6 IVPB Last administered on 02/20/19 11:57; Admin Dose 200 MLS/HR; Start 02/16/19 at 18:00 Insulin Glargine (Lantus) 5 units DAILY@0930 SC Last administered on 02/20/19 10:06; Admin Dose 5 UNITS; Start 02/18/19 at 09:30 Bismuth Subsalicylate (Pepto-Bismol) 30 ml QID PO Last administered on 02/20/19 09:11; Admin Dose 30 ML; Start 02/17/19 at 17:30 Amoxicillin (Amoxicillin) 1,000 mg BID PO Last administered on 02/20/19 09:06; Admin Dose 1,000 MG; Start 02/17/19 at 18:30; Stop 02/21/19 at 18:29 Clarithromycin (Biaxin) 500 mg BID PO Last administered on 02/20/19 09:06; Admin Dose 500 MG; Start 02/17/19 at 18:30; Stop 02/21/19 at 18:29 Sodium Chloride (Nacl) 1 gm TID PO Last administered on 02/20/19 12:10; Admin Dose 1 GM; Start 02/19/19 at 21:00 Metoprolol Tartrate (Lopressor) 50 mg BID PO Last administered on 02/20/19 10:14; Admin Dose 50 MG; Start 02/20/19 at 10:00 KIRK AREVALO MD Feb 20, 2019 16:55
--- NOTE | 2019-02-20 17:11 | CONS ---
Assessment/Plan Assessment/Plan Hospital Course (Demo Recall) - Recurrent SIRS (fever and tachycardia), r/o sepsis; previous ID w/u and imaging were negative; - s/p Vancomycin and Cefepime (12/11/2018-12/14/18) - Mild peno-scrotal edema with possible left epididymitis as suggested on the FARZANA - on amoxicillin - Mild pyuria - urine cx grew <10K Citrobacter Koseri and <10K C. Albicans; pt is asymptomatic - H. 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 Penumo ESBL in sputum cx on 12/15/2018, likely colonizer - Hx EBV exposure - The following is negative: HIV, HIV viral load, procalc <0.10 on 12/12/18, Cryto AG, [place]-smear, malaria, resp virus panel, MTB complex, HSV 1&2 by PCR, CMV, WBC scan on 12/18/2018 Recommendations: - Complete treatment for H. pylori with amoxicillin, clarithromycin and PPI (02/06/2019-); ordered to extend course from 10 to 14 days - d/c Zosyn (02/16/19 --02/20/19 ) cxr negative - Complete 7 days of nystatin (02/14/2019-) - F/u bone marrow bx results when available Consultation Date/Type/Reason Admit Date/Time Feb 06, 2019 at 14:46 Initial Consult Date 02/14/19 Type of Consult id Requesting Provider: KIRK AREVALO MD Date/Time of Note DATE: 02/20/19 TIME: 17:10 prolonged service 1 hr Exam/Review of Systems Exam Vitals Vital Signs Date Temp Pulse Resp B/P (MAP) Pulse Ox O2 O2 Flow FiO2 Time Delivery Rate 02/20/19 100.5 17:03 02/20/19 109 16:01 02/20/19 18 126/67 97 Nasal 15:20 (86) Cannula 02/20/19 2.0 09:00 Intake and Output 02/19/19 02/19/19 02/20/19 1515:00 23:00 07:00 IntakeIntake Total 360 ml BalanceBalance 360 ml Constitutional: alert, oriented, well developed Psych: no complaints, nl mood/affect Head: normocephalic, atraumatic Eyes: nl conjunctiva, EOMI, nl lids, nl sclera, PERRL ENMT: nl external ears & nose, nl lips & teeth, nl nasal mucosa & septum Respiratory: clear to auscultation, normal air movement Cardiovascular: regular rate and rhythm, nl pulses Gastrointestinal: soft, nl liver, spleen, non-tender Musculoskeletal: nl extremities to inspection, nl gait and stance Results Result Diagram: 02/19/19 0722 02/20/19 1132 Results 24hrs Laboratory Tests Test 02/19/19 17:45 02/19/19 20:34 02/20/19 08:13 02/20/19 11:32 Bedside Glucose 141 162 105 Sodium Level 124 L Potassium Level 3.6 Chloride Level 91 L Carbon Dioxide Level 26 Anion Gap 7 Blood Urea Nitrogen 6 L Creatinine 0.70 Est Glomerular > 60 Filtrat Rate mL/min Glucose Level 139 Calcium Level 8.0 L Test 02/20/19 12:08 02/20/19 14:03 Bedside Glucose 142 Lactate 2366 H Dehydrogenase Medications Medication Current Medications IV Flush (NS 3 ml) 3 ml PER PROTOCOL IV ; Start 02/06/19 at 15:00 Ondansetron HCl (Zofran Inj) 4 mg Q6H PRN IV NAUSEA/VOMITING Last administered on 02/16/19at 11:54; Admin Dose 4 MG; Start 02/06/19 at 15:00 Acetaminophen (Tylenol Tab) 650 mg Q6H PRN PO .PAIN 1-3 OR TEMP Last adminis tered on 02/19/19at 21:53; Admin Dose 650 MG; Start 02/06/19 at 15:00 Atorvastatin Calcium (Lipitor) 10 mg DAILY@21 PO Last administered on 02/19/19at 21:31; Admin Dose 10 MG; Start 02/06/19 at 21:00 Miscellaneous Information 1 ea NOTE XX ; Start 02/06/19 at 16:00 Glucose (Glutose) 15 gm Q15M PRN PO DECREASED GLUCOSE; Start 02/06/19 at 16:00 Glucose (Glutose) 22.5 gm Q15M PRN PO DECREASED GLUCOSE; Start 02/06/19 at 16:00 Dextrose (D50w Syringe) 25 ml Q15M PRN IV DECREASED GLUCOSE; Start 02/06/19 at 16:00 Dextrose (D50w Syringe) 50 ml Q15M PRN IV DECREASED GLUCOSE; Start 02/06/19 at 16:00 Glucagon (Glucagen) 1 mg Q15M PRN IM DECREASED GLUCOSE; Start 02/06/19 at 16:00 Glucose (Glutose) 15 gm Q15M PRN BUCCAL DECREASED GLUCOSE; Start 02/06/19 at 16:00 Pantoprazole (Protonix Tab) 40 mg BID@0600,1800 PO Last administered on 02/20/19at 06:04; Admin Dose 40 MG; Start 02/07/19 at 06:00 Insulin Aspart (Novolog Insulin Pen) 7 unit WITH MEALS SC Last administered on 02/14/19at 17:39; Admin Dose 7 UNIT; Start 02/07/19 at 09:30; Status Hold Miscellaneous Information (* Miscellaneous Pharmacy Order) Treatment of Hypoglycemia: 1.BG 51... Per protocol XX ; Start 02/08/19 at 09:00 Dextrose (D50w Syringe) 25 ml Q15M PRN IV .DECREASED GLUCOSE; Start 02/08/19 at 09:00 Dextrose (D50w Syringe) 50 ml Q15M PRN IV .DECREASED GLUCOSE; Start 02/08/19 at 09:00 Methimazole (Tapazole) 30 mg BID PO Last administered on 02/17/19at 08:28; Admin Dose 30 MG; Start 02/08/19 at 13:30; Status Hold Insulin Aspart (Novolog Insulin Pen) NOVOLOG *MODERATE* ALGORITHM WITH MEALS BEDTIME SC Last administered on 02/20/19at 12:36; Admin Dose 2 UNIT; Start 02/09/19 at 17:35 Heparin Sodium (Porcine) (Heparin (5000 Units/1ml)) 5,000 unit BID SC Last administered on 02/14/19at 22:48; Admin Dose 5,000 UNIT; Start 02/11/19 at 09:00; Status Hold Acetaminophen/ Hydrocodone Bitart ([place] (5/325)) 1 tab Q6H PRN PO MODERATE PAIN LEVEL 4-6; Start 02/12/19 at 09:00 Nystatin (Nystatin Susp) 5 ml QID PO Last administered on 02/20/19 12:10; Admin Dose 5 ML; Start 02/14/19 at 13:00; Stop 02/21/19 at 12:59 Senna (Senokot) 2 tab BID PO Last administered on 02/20/19 09:06; Admin Dose 2 TAB; Start 02/16/19 at 21:00 Piperacillin Sod/ Tazobactam Sod 100 ml @ 200 mls/hr Q6 IVPB Last administered on 02/20/19 11:57; Admin Dose 200 MLS/HR; Start 02/16/19 at 18:00 Insulin Glargine (Lantus) 5 units DAILY@0930 SC Last administered on 02/20/19 10:06; Admin Dose 5 UNITS; Start 02/18/19 at 09:30 Bismuth Subsalicylate (Pepto-Bismol) 30 ml QID PO Last administered on 02/20/19 09:11; Admin Dose 30 ML; Start 02/17/19 at 17:30 Amoxicillin (Amoxicillin) 1,000 mg BID PO Last administered on 02/20/19 09:06; Admin Dose 1,000 MG; Start 02/17/19 at 18:30; Stop 02/21/19 at 18:29 Clarithromycin (Biaxin) 500 mg BID PO Last administered on 02/20/19 09:06; Admin Dose 500 MG; Start 02/17/19 at 18:30; Stop 02/21/19 at 18:29 Sodium Chloride (Nacl) 1 gm TID PO Last administered on 02/20/19 12:10; Admin Dose 1 GM; Start 02/19/19 at 21:00 Metoprolol Tartrate (Lopressor) 50 mg BID PO Last administered on 02/20/19 10:14; Admin Dose 50 MG; Start 02/20/19 at 10:00 ANGEL CHAVEZ MD Feb 20, 2019 17:11
[2019-02-20] MEDS: ACETAMINOPHEN 325 MG TAB PO PRN (17:12)
[2019-02-20] MEDS: ATORVASTATIN 10 MG TAB PO SCH (20:24)
[2019-02-21] VITALS (12 sets, daily range): BP systolic 89–124; BP diastolic 52–74; PULSE 90–103; RESP 18–22
[2019-02-21] MEDS: PANTOPRAZOLE (EC) 40 MG TAB PO SCH ×2 (06:13→18:25)
[2019-02-21] MEDS: ACETAMINOPHEN 325 MG TAB PO PRN ×2 (06:15→12:50)
[2019-02-21] MEDS: HYDROCODONE/APAP (5/325) TAB PO PRN (08:23)
[2019-02-21] MEDS: INSULIN ASPART [NOVOLOG] 3 ML PEN SC SCH ×4 (08:30→21:00)
[2019-02-21] MEDS: METOPROLOL 50 MG TAB PO SCH ×3 (09:00→21:21)
[2019-02-21] MEDS: CLARITHROMYCIN 500 MG TAB PO SCH (09:58)
[2019-02-21] MEDS: AMOXICILLIN 500 MG CAP PO SCH (09:58)
[2019-02-21] MEDS: BISMUTH SUBSALICYLATE 240 ML BTL PO SCH ×4 (09:59→21:22)
[2019-02-21] MEDS: SODIUM CHLORIDE 1 GM TAB PO SCH ×3 (09:59→21:22)
[2019-02-21] MEDS: NYSTATIN SUSP 5 ML CUP PO SCH (09:59)
[2019-02-21] MEDS: SENNA TAB PO SCH ×2 (09:59→21:22)
[2019-02-21] MEDS: INSULIN GLARGINE [LANTus] (100 UNITS/ML) SYG SC SCH (11:15)
--- NOTE | 2019-02-21 12:27 | CONS ---
Consult Date/Type/Reason Admit Date/Time Feb 06, 2019 at 14:46 Initial Consult Date 02/18/19 Type of Consultation: Urology Reason for Consultation Scrotal swelling Requesting Provider: KIRK AREVALO MD Date/Time of Note DATE: 02/21/19 TIME: 12:20 Subjective Patient complains of pain when the scrotum is being elevated. Objective Vitals Vital Signs Date Temp Pulse Resp B/P (MAP) Pulse Ox O2 O2 Flow FiO2 Time Delivery Rate 02/21/19 97.6 96 22 124/74 96 Nasal 2.0 11:25 (91) Cannula Intake and Output 02/20/19 02/20/19 02/21/19 1414:59 22:59 06:59 IntakeIntake Total 250 ml 100 ml 350 ml BalanceBalance 250 ml 100 ml 350 ml Exam The penoscrotal swelling is less. There is no redness and no clinical hydrocele. The swelling is in the scrotal wall. Results/Medications Result Diagram: 02/21/19 1119 02/20/19 1132 Results 24 hrs Laboratory Tests Test 02/20/19 14:03 02/20/19 17:22 02/20/19 22:09 02/21/19 08:07 Lactate 2366 H Dehydrogenase Bedside Glucose 112 118 200 Test 02/21/19 11:19 White Blood Count 4.6 #L Red Blood Count 3.21 L Hemoglobin 7.9 L Hematocrit 25.0 L Mean Corpuscular 77.9 L Volume Mean Corpuscular 24.6 L Hemoglobin Mean Corpuscular 31.6 L Hemoglobin Concent Red Cell 20.3 H Distribution Width Platelet Count 94 #L Mean Platelet Volume 9.8 Immature 0.600 H Granulocytes % Neutrophils % Lymphocytes % Monocytes % Eosinophils % Basophils % Nucleated Red Blood 0.0 Cells % Immature 0.030 Granulocytes # Neutrophils # Lymphocytes # Monocytes # Eosinophils # Basophils # Nucleated Red Blood Cells # Home Meds Active Scripts Insulin Glargine* (Lantus*) 100 Unit/Ml Soln, 15 UNIT SC DAILY, #14 VIAL Prov:YOLI ZAMORANO M. 02/11/19 Insulin Aspart* (Novolog Insulin Pen*) 100 Unit/Ml Soln, 7 UNIT SC WITH MEALS, #7 VIAL Prov:FRANCISCA ZAMORANOATITO M. 02/11/19 Sennosides* (Senna Lax*) 8.6 Mg Tablet, 2 TAB PO BID, #120 TAB Prov:YOLI ZAMORANO . 02/11/19 Clarithromycin* (Clarithromycin*) 500 Mg Tablet, 500 MG PO BID for 5 Days, #10 TAB Prov:YOLI ZAMORANO . 02/11/19 Amoxicillin* (Amoxicillin*) 500 Mg Cap, 1000 MG PO BID for 5 Days, #10 CAP Prov:YOLI ZAMORANO . 02/11/19 Methimazole* (Methimazole*) 10 Mg Tablet, 30 MG PO BID, #180 TAB 1 Refill Prov:YOLI ZAMORANO . 02/11/19 Reported Medications Pantoprazole* (Pantoprazole*) 40 Mg Tablet.dr, 40 MG PO AC BREAKFAST, TAB 02/06/19 Simvastatin* (Zocor*) 20 Mg Tablet, 20 MG PO QHS, #30 TAB 01/16/19 Lisinopril* (Lisinopril*) 2.5 Mg Tablet, 2.5 MG PO DAILY, #30 TAB 01/16/19 Propranolol Hcl* (Propranolol Hcl*) 40 Mg Tablet, 80 MG PO TID, TAB 01/16/19 Medications Current Medications IV Flush (NS 3 ml) 3 ml PER PROTOCOL IV ; Start 02/06/19 at 15:00 Ondansetron HCl (Zofran Inj) 4 mg Q6H PRN IV NAUSEA/VOMITING Last administered on 02/16/19at 11:54; Admin Dose 4 MG; Start 02/06/19 at 15:00 Acetaminophen (Tylenol Tab) 650 mg Q6H PRN PO .PAIN 1-3 OR TEMP Last a dministered on 02/21/19at 06:15; Admin Dose 650 MG; Start 02/06/19 at 15:00 Atorvastatin Calcium (Lipitor) 10 mg DAILY@21 PO Last administered on 02/20/19at 20:24; Admin Dose 10 MG; Start 02/06/19 at 21:00 Miscellaneous Information 1 ea NOTE XX ; Start 02/06/19 at 16:00 Glucose (Glutose) 15 gm Q15M PRN PO DECREASED GLUCOSE; Start 02/06/19 at 16:00 Glucose (Glutose) 22.5 gm Q15M PRN PO DECREASED GLUCOSE; Start 02/06/19 at 16:00 Dextrose (D50w Syringe) 25 ml Q15M PRN IV DECREASED GLUCOSE; Start 02/06/19 at 16:00 Dextrose (D50w Syringe) 50 ml Q15M PRN IV DECREASED GLUCOSE; Start 02/06/19 at 16:00 Glucagon (Glucagen) 1 mg Q15M PRN IM DECREASED GLUCOSE; Start 02/06/19 at 16:00 Glucose (Glutose) 15 gm Q15M PRN BUCCAL DECREASED GLUCOSE; Start 02/06/19 at 16:00 Pantoprazole (Protonix Tab) 40 mg BID@0600,1800 PO Last administered on 02/21/19at 06:13; Admin Dose 40 MG; Start 02/07/19 at 06:00 Insulin Aspart (Novolog Insulin Pen) 7 unit WITH MEALS SC Last administered on 02/14/19at 17:39; Admin Dose 7 UNIT; Start 02/07/19 at 09:30; Status Hold Miscellaneous Information (* Miscellaneous Pharmacy Order) Treatment of Hypoglycemia: 1.BG 51... Per protocol XX ; Start 02/08/19 at 09:00 Dextrose (D50w Syringe) 25 ml Q15M PRN IV .DECREASED GLUCOSE; Start 02/08/19 at 09:00 Dextrose (D50w Syringe) 50 ml Q15M PRN IV .DECREASED GLUCOSE; Start 02/08/19 at 09:00 Methimazole (Tapazole) 30 mg BID PO Last administered on 02/17/19at 08:28; Admin Dose 30 MG; Start 02/08/19 at 13:30; Status Hold Insulin Aspart (Novolog Insulin Pen) NOVOLOG *MODERATE* ALGORITHM WITH MEALS BEDTIME SC Last administered on 02/21/19at 08:30; Admin Dose 4 UNIT; Start 02/09/19 at 17:35 Heparin Sodium (Porcine) (Heparin (5000 Units/1ml)) 5,000 unit BID SC Last administered on 02/14/19at 22:48; Admin Dose 5,000 UNIT; Start 02/11/19 at 09:00; Status Hold Acetaminophen/ Hydrocodone Bitart ([place] (5/325)) 1 tab Q6H PRN PO MODERATE PAIN LEVEL 4-6 Last administered on 02/21/19at 08:23; Admin Dose 1 TAB; Start 02/12/19 at 09:00 Nystatin (Nystatin Susp) 5 ml QID PO Last administered on 02/21/19 09:59; Admin Dose 5 ML; Start 02/14/19 at 13:00; Stop 02/21/19 at 12:59 Senna (Senokot) 2 tab BID PO Last administered on 02/21/19 09:59; Admin Dose 2 TAB; Start 02/16/19 at 21:00 Insulin Glargine (Lantus) 5 units DAILY@0930 SC Last administered on 02/21/19 11:15; Admin Dose 5 UNITS; Start 02/18/19 at 09:30 Bismuth Subsalicylate (Pepto-Bismol) 30 ml QID PO Last administered on 02/21/19 09:59; Admin Dose 30 ML; Start 02/17/19 at 17:30 Amoxicillin (Amoxicillin) 1,000 mg BID PO Last administered on 02/21/19 09:58; Admin Dose 1,000 MG; Start 02/17/19 at 18:30; Stop 02/21/19 at 18:29 Clarithromycin (Biaxin) 500 mg BID PO Last administered on 02/21/19 09:58; Admin Dose 500 MG; Start 02/17/19 at 18:30; Stop 02/21/19 at 18:29 Sodium Chloride (Nacl) 1 gm TID PO Last administered on 02/21/19 09:59; Admin Dose 1 GM; Start 02/19/19 at 21:00 Metoprolol Tartrate (Lopressor) 50 mg Q8 PO ; Start 02/21/19 at 14:00 Assessment/Plan Hospital Course (Demo Recall) 59-year-old male presented to the hospital with fatigue, hypotension and hyponatremia. He is known to have a history of hypertension , Graves' disease and hyperthyroidism and anemia. He also was complaining of testicular pain and underwent scrotal ultrasound and that showed: Enlarged heterogeneous and mildly hypervascular left epididymis suggesting sequelae of epididymitis. This is seen to a lesser degree within the left epididymis. Mild diffuse scrotal edema. No evidence of hydrocele or fluid collection Therefore a urological consultation was requested. The patient complains of pain in both testes. He denies any dysuria, there is no history of hematuria or urinary tract infection. On the exam he has penile edema and bilateral scrotal swelling. The scrotal skin is puffy. He may have left epididymitis as suggested on the ultrasound. He is already on amoxicillin and Clarithromycin. Urine culture showed: URINE CULTURE Final Organism 1 CITROBACTER KOSERI COLONY COUNT <10,000 CFU/ml Organism 2 MIMA ALBICANS COLONY COUNT <10,000 CFU/ml C KOSERI M.I.C. RX --------- --- CEFOTAXIME S CIPROFLOXACIN <=0.25 S GENTAMICIN <=1 S LEVOFLOXACIN <=0.12 S NITROFURANTOIN <=16 S TOBRAMYCIN <=1 S TRIMETHOPRIM/SULFAMETHOXAZOLE <=20 S Continue to elevate the scrotum on a towel all the time and continue the antibiotic. YESSICA MANRIQUEZ MD Feb 21, 2019 12:26
--- NOTE | 2019-02-21 12:29 | CONS ---
DATE OF ADMISSION: 02/06/2019 DATE OF CONSULTATION: 02/21/2019 TYPE OF CONSULTATION: Nephrology. REASON FOR CONSULTATION: Hyponatremia. PHYSICIAN REQUESTING CONSULT: Irving Gonzalez MD HISTORY OF PRESENT ILLNESS: This is a 59-year-old male who presents to [facility] with hypertension, weakness. The patient states that he was diagnosed on 11/24/2018. The patient wa s placed on methimazole. Patient was being managed in outpatient setting and told that he would need to have an ablation. The patient, however, developed weakness as a result was admitted to [facility]. Upon arrival, patient was noted to be hypertensive and febrile. Patient was tr eated with IV fluids, antibiotic therapy. The patient during the hospital course was noted to be thr ombocytopenic. The patient was seen by script artist, Dr. Dela Cruz. An eventual bone marrow biopsy was performed with underlying anemia, thrombocytopenia. 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 The patient, however, continued to have fatigue, weakness during the hospital course. In terms of patient's renal history, the patient during hospital course has been hypernatremic sodium levels ranging from 124 to 128 mEq per liter. The patient during this time has been on IV hydration , antibiotic therapy. The patient denies hemoptysis, hematemesis, or hematochezia. PAST MEDICAL HISTORY: See above. History of hypothyroidism. PAST SURGICAL HISTORY: Reviewed. ALLERGIES: No known drug allergies. FAMILY HISTORY: No family history obtained. SOCIAL HISTORY: Does not drink, smoke, do drugs. MEDICATIONS: The patient's medications have been reviewed. REVIEW OF SYSTEMS: A 14-point review of systems conducted. Pertinent positives stated in HPI, other tello negative. PHYSICAL EXAMINATION: VITAL SIGNS: Blood pressure is 89/52, respirations 20, pulse 102, temperature 98.0. HEENT: Head normocephalic. NECK: Supple. HEART: Regular rate. LUNGS: Show diminished breath sounds at the base. ABDOMEN: Soft, nontender to palpation without rebound or guarding. EXTREMITIES: Negative. No edema. DERMATOLOGIC: No rashes. GENITOURINARY: The patient has testicular swelling. NEUROLOGIC: No focal deficit. LABORATORY DATA: Have been reviewed. IMAGING STUDIES: Have been reviewed. ASSESSMENT AND PLAN: 1. Hyponatremia. Etiology is likely secondary to syndrome of inappropriate antidiuretic hormone, un derlying cause is unclear. Differential is broad including autoimmune versus infectious versus possi ble malignancy. Plan is to confirm SIADH by repeat urine sodium, urine osmolarity, uric acid level, TSH level. The patient's previous cortisol levels were in the appropriate limits. Would recommend t o place the patient on free water restriction, no more than 1 liter daily. Continue salt tablets. M ay consider low dose diuretic therapy if hemodynamically stable. As further, consider adding adaptic , if sodium levels do not improved. Will monitor closely. 2. Hypothyroidism. Continue current medical management. 3. Thrombocytopenia. Patient is status post bone marrow biopsy. Continue to monitor. Follow up re sults per hematology. 4. Diabetes. Continue current insulin regimen. 5. SIRS. Etiology is unclear. The patient's previous cultures negative, status post antibiotic the rapy. Continue to monitor. 6. Arrhythmia, continue medical management. Thank you, Dr. Gonzalez for this interesting consult. It will be a pleasure to follow the patient wit h behzad throughout the hospital course. Dictated By: DIANNA SAWYER DO NR/NTS Conf#: [id number] DID#: [id number] CC: PURVI QUIGLEY MD;*EndCC*
--- NOTE | 2019-02-21 12:49 | CONS ---
Assessment/Plan Assessment/Plan Hospital Course (Demo Recall) 59 yo with hyperparathyroidism whom I saw during the last admission and was only found to be iron deficient. anemia w/u otherwise was negative we are asked again to see him for anemia and thrombocytopenia #Anemia -Anemia workup is most consistent with profound iron deficiency given the iron saturation of 6%. Pt is currently on IV iron which we should continue. -past anemia workup during last admission showed: -normal SPEP which rules out monoclonal gammopathy -normal Hg electrophoresis which rules out beta thalassemia and Hemoglobin C and E. allpha thal not common in [place] but can do alpha thal genetic testing as outpt if anemia does not fully correct with iron -vitamin b12 and folate are wnl -haptoglobin and bilirubin normal making hemolysis unlikely -s/p bone marrow bx showing no leukemia or lymphoma or MDS. anemia due to iron def, cont IV iron. #Thrombocytopenia, plt count increasing today ay 94K -this may be secondary to medication effect. Methimazole and zosyn can both cause worsening thrombocytopenia. Although the platelet drop may have preceded when these meds were given -not in DIC as fibrinogen normal -this is not TTP #Hyperthyroidism -management per endocrinology Consultation Date/Type/Reason Admit Date/Time Feb 06, 2019 at 14:46 Initial Consult Date 02/18/19 Requesting Provider: KIRK AREVALO MD Date/Time of Note DATE: 02/21/19 TIME: 12:48 24 HR Interval Summary Free Text/Dictation s/p bone marrow biopsy. no findings of MDS, leukemia or lymphoma. findings c/w regenerating marrow Exam/Review of Systems Exam Vitals Vital Signs Date Temp Pulse Resp B/P (MAP) Pulse Ox O2 O2 Flow FiO2 Time Delivery Rate 02/21/19 98 12:27 02/21/19 97.6 22 124/74 96 Nasal 2.0 11:25 (91) Cannula Intake and Output 02/20/19 02/20/19 02/21/19 1515:00 23:00 07:00 IntakeIntake Total 250 ml 100 ml 350 ml BalanceBalance 250 ml 100 ml 350 ml Constitutional: frail Psych: no complaints, nl mood/affect Musculoskeletal: nl extremities to inspection, nl gait and stance Results Result Diagram: 02/21/19 1119 02/21/19 1157 Results 24hrs Laboratory Tests Test 02/20/19 14:03 02/20/19 17:22 02/20/19 22:09 02/21/19 08:07 Lactate 2366 H Dehydrogenase Bedside Glucose 112 118 200 Test 02/21/19 11:19 02/21/19 11:57 02/21/19 12:17 White Blood Count 4.6 #L Red Blood Count 3.21 L Hemoglobin 7.9 L Hematocrit 25.0 L Mean Corpuscular 77.9 L Volume Mean Corpuscular 24.6 L Hemoglobin Mean Corpuscular 31.6 L Hemoglobin Concent Red Cell 20.3 H Distribution Width Platelet Count 94 #L Mean Platelet Volume 9.8 Immature 0.600 H Granulocytes % Neutrophils % Segmented 75 Neutrophils % (Manual) Band Neutrophils % 6 H (Manual) Lymphocytes % Lymphocytes % 14 L (Manual) Reactive Lymphocytes 1 H % (Manual) Monocytes % Monocytes % (Manual) 2 Eosinophils % Basophils % Basophils % (Manual) 2 Nucleated Red Blood 0.0 Cells % Immature 0.030 Granulocytes # Neutrophils # Neutrophils # 3.5 (Manual) Band Neutrophils # 0.2 Lymphocytes (Manual) 0.6 L Lymphocytes # Reactive Lymphocytes 0.0 # Monocytes # Monocytes # (Manual) 0.0 L Eosinophils # Basophils # Basophils # (Manual) 0.0 Nucleated Red Blood Cells # Platelet Estimate DECREASED Giant Platelets 3 H Polychromasia 1+ Poikilocytosis 1+ Anisocytosis 1+ Microcytosis 1+ Ovalocytes 1+ Sodium Level 126 L Uric Acid 5.1 Bedside Glucose 150 Medications Medication Current Medications IV Flush (NS 3 ml) 3 ml PER PROTOCOL IV ; Start 02/06/19 at 15:00 Ondansetron HCl (Zofran Inj) 4 mg Q6H PRN IV NAUSEA/VOMITING Last administered on 02/16/19at 11:54; Admin Dose 4 MG; Start 02/06/19 at 15:00 Acetaminophen (Tylenol Tab) 650 mg Q6H PRN PO .PAIN 1-3 OR TEMP Last administered on 02/21/19at 06:15; Admin Dose 650 MG; Start 02/06/19 at 15:00 Atorvastatin Calcium (Lipitor) 10 mg DAILY@21 PO Last administered on 02/20/19at 20:24; Admin Dose 10 MG; Start 02/06/19 at 21:00 Miscellaneous Information 1 ea NOTE XX ; Start 02/06/19 at 16:00 Glucose (Glutose) 15 gm Q15M PRN PO DECREASED GLUCOSE; Start 02/06/19 at 16:00 Glucose (Glutose) 22.5 gm Q15M PRN PO DECREASED GLUCOSE; Start 02/06/19 at 16:00 Dextrose (D50w Syringe) 25 ml Q15M PRN IV DECREASED GLUCOSE; Start 02/06/19 at 16:00 Dextrose (D50w Syringe) 50 ml Q15M PRN IV DECREASED GLUCOSE; Start 02/06/19 at 16:00 Glucagon (Glucagen) 1 mg Q15M PRN IM DECREASED GLUCOSE; Start 02/06/19 at 16:00 Glucose (Glutose) 15 gm Q15M PRN BUCCAL DECREASED GLUCOSE; Start 02/06/19 at 16:00 Pantoprazole (Protonix Tab) 40 mg BID@0600,1800 PO Last administered on 02/21/19at 06:13; Admin Dose 40 MG; Start 02/07/19 at 06:00 Insulin Aspart (Novolog Insulin Pen) 7 unit WITH MEALS SC Last administered on 02/14/19at 17:39; Admin Dose 7 UNIT; Start 02/07/19 at 09:30; Status Hold Miscellaneous Information (* Miscellaneous Pharmacy Order) Treatment of H ypoglycemia: 1.BG 51... Per protocol XX ; Start 02/08/19 at 09:00 Dextrose (D50w Syringe) 25 ml Q15M PRN IV .DECREASED GLUCOSE; Start 02/08/19 at 09:00 Dextrose (D50w Syringe) 50 ml Q15M PRN IV .DECREASED GLUCOSE; Start 02/08/19 at 09:00 Methimazole (Tapazole) 30 mg BID PO Last administered on 02/17/19at 08:28; Admin Dose 30 MG; Start 02/08/19 at 13:30; Status Hold Insulin Aspart (Novolog Insulin Pen) NOVOLOG *MODERATE* ALGORITHM WITH MEALS BEDTIME SC Last administered on 02/21/19at 08:30; Admin Dose 4 UNIT; Start 02/09/19 at 17:35 Heparin Sodium (Porcine) (Heparin (5000 Units/1ml)) 5,000 unit BID SC Last administered on 02/14/19at 22:48; Admin Dose 5,000 UNIT; Start 02/11/19 at 09:00; Status Hold Acetaminophen/ Hydrocodone Bitart ([place] (5/325)) 1 tab Q6H PRN PO MODERATE PAIN LEVEL 4-6 Last administered on 02/21/19 08:23; Admin Dose 1 TAB; Start 02/12/19 at 09:00 Nystatin (Nystatin Susp) 5 ml QID PO Last administered on 02/21/19 09:59; Admin Dose 5 ML; Start 02/14/19 at 13:00; Stop 02/21/19 at 12:59 Senna (Senokot) 2 tab BID PO Last administered on 02/21/19 09:59; Admin Dose 2 TAB; Start 02/16/19 at 21:00 Insulin Glargine (Lantus) 5 units DAILY@0930 SC Last administered on 02/21/19 11:15; Admin Dose 5 UNITS; Start 02/18/19 at 09:30 Bismuth Subsalicylate (Pepto-Bismol) 30 ml QID PO Last administered on 02/21/19 09:59; Admin Dose 30 ML; Start 02/17/19 at 17:30 Amoxicillin (Amoxicillin) 1,000 mg BID PO Last administered on 02/21/19 09:58; Admin Dose 1,000 MG; Start 02/17/19 at 18:30; Stop 02/21/19 at 18:29 Clarithromycin (Biaxin) 500 mg BID PO Last administered on 02/21/19 09:58; Admin Dose 500 MG; Start 02/17/19 at 18:30; Stop 02/21/19 at 18:29 Sodium Chloride (Nacl) 1 gm TID PO Last administered on 02/21/19 09:59; Admin Dose 1 GM; Start 02/19/19 at 21:00 Metoprolol Tartrate (Lopressor) 50 mg Q8 PO ; Start 02/21/19 at 14:00 NAYAN OAKLEY Feb 21, 2019 12:49
--- NOTE | 2019-02-21 12:58 | CONS ---
[facility] LIVE HCIS Consult Follow-up Patient Name: Alejandro Whitaker Unit Number: [id number] Date of : 1960 Patient Status: Admitted Inpatient Attending Doctor: Irving Gonzalez MD Edit: BRENDEN RODRIGUEZ M.D. on 02/24/19 @ 04:48 Michael: I discussed the management with FARM AGENT and agree Assessment/Plan Assessment/Plan Hospital Course (Demo Recall) - Recurrent SIRS (fever and tachycardia), r/o sepsis; previous ID w/u and imagi ng were negative; - s/p Vancomycin and Cefepime (12/11/2018-12/14/18) - Mild peno-scrotal edema with possible left epididymitis as suggested on the FARZANA - on amoxicillin - Mild pyuria - urine cx grew <10K Citrobacter Koseri and <10K C. Albicans; pt is asymptomatic - s/p bone marrow biopsy 02/20/19 - showed nl cellular marrow with adequate megakaryopoiesis, reduced marrow hemosiderin, reticulin fibrosis, mild, no granulomas identified, no e/o malignancy, no diagnostic immunophenotypic abl detected - H. 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 Penumo ESBL in sputum cx on 12/15/2018, likely colonizer - Hx EBV exposure - The following is negative: HIV, HIV viral load, procalc <0.10 on 12/12/18, Cryto AG, [place]-smear, malaria, resp virus panel, MTB complex, HSV 1&2 by PCR, CMV, WBC scan on 12/18/2018, ESR 70 on 02/13/19 Recommendations: - Complete treatment for H. pylori with amoxicillin, clarithromycin and PPI (02/06/2019-); x 14 days - s/p Zosyn (02/16/19 --02/20/19 ) - Complete 7 days of nystatin (02/14/2019-) - Ordered for am: ESR and procalcitonin Plan was d/w patients RN Archana at bedside, patient, his at bedside, and with Dr. Rodriguez Thank you Consultation Date/Type/Reason Admit Date/Time Feb 06, 2019 at 14:46 Initial Consult Date 02/18/19 Type of Consult ID Requesting Provider: IRVING GONZALEZ MD Date/Time of Note DATE: 02/21/19 TIME: 12:56 24 HR Interval Summary Free Text/Dictation Patient is s/p Bone Marrow biopsy yesterday. The patient is c/o pain penile/scrotal 06/14. Per pt's RN she has a one time Morphine order which she will be administering shortly. The patient states that he has trouble starting his stream and feels that he has to push "hard" to get the urine out. Urine is reported as clear and yellow witho ut odor. When I noted that the patient's scrotum should be elevated on a towel they refused. Patient also reports chills but no feeling of fevers, sob and heart palpitations reported. Denied cough, phlegm expectoration, h/a, n/v/d, pruritis, rash. The patient has remained afebrile. No other acute issues were reported by the RN. Exam/Review of Systems Exam Vitals Vital Signs Date Temp Pulse Resp B/P (MAP) Pulse Ox O2 O2 Flow FiO2 Time Delivery Rate 02/21/19 98 12:27 02/21/19 97.6 22 124/74 96 Nasal 2.0 11:25 (91) Cannula Intake and Output 02/20/19 02/20/19 02/21/19 1515:00 23:00 07:00 IntakeIntake Total 250 ml 100 ml 350 ml BalanceBalance 250 ml 100 ml 350 ml Allergies Coded Allergies No Known Allergy (Unverified02/06/19) Constitutional: alert, oriented, well developed, other (patient was covering his head tightly with a sheet when I entered the room. ) Psych: nl mood/affect Head: normocephalic, atraumatic, other (wearing a beanie that was covering one of his eyes so the eye was half closed, when I moved the beanie out of the way of his eye he was able to open both eyes easily) Eyes: nl conjunctiva, nl lids, nl sclera, other (exopthalmus) ENMT: nl external ears & nose, nl nasal mucosa & septum, mucosa pink and moist (no thrush noted) Neck: supple, non-tender Respiratory: clear to auscultation, normal air movement, other (tachypneic) Cardiovascular: regular rate and rhythm, nl pulses Gastrointestinal: soft, non-tender, bowel sounds (normoactive ); No distended, No tender Genitourinary - Male: nl penis, other (scrotal swelling, no induration, soft, but tender with palpation. Was not elevated, I brought a towel to elevate the scrotum and the pt and his refused.) Musculoskeletal: nl extremities to inspection Extremities: normal pulses; No edema Neurological: TELEPHONE SERVICE ADVISER II-XII intact, nl mental status, nl speech Skin: nl turgor; No rash or lesions Results Result Diagram: 02/21/19 1119 02/21/19 1157 Results 24hrs Laboratory Tests Test 02/20/19 14:03 02/20/19 17:22 02/20/19 22:09 02/21/19 08:07 Lactate 2366 H Dehydrogenase Bedside Glucose 112 118 200 Test 02/21/19 11:19 02/21/19 11:57 02/21/19 12:17 White Blood Count 4.6 #L Red Blood Count 3.21 L Hemoglobin 7.9 L Hematocrit 25.0 L Mean Corpuscular 77.9 L Volume Mean Corpuscular 24.6 L Hemoglobin Mean Corpuscular 31.6 L Hemoglobin Concent Red Cell 20.3 H Distribution Width Platelet Count 94 #L Mean Platelet Volume 9.8 Immature 0.600 H Granulocytes % Neutrophils % Segmented 75 Neutrophils % (Manual) Band Neutrophils % 6 H (Manual) Lymphocytes % Lymphocytes % 14 L (Manual) Reactive Lymphocytes 1 H % (Manual) Monocytes % Monocytes % (Manual) 2 Eosinophils % Basophils % Basophils % (Manual) 2 Nucleated Red Blood 0.0 Cells % Immature 0.030 Granulocytes # Neutrophils # Neutrophils # 3.5 (Manual) Band Neutrophils # 0.2 Lymphocytes (Manual) 0.6 L Lymphocytes # Reactive Lymphocytes 0.0 # Monocytes # Monocytes # (Manual) 0.0 L Eosinophils # Basophils # Basophils # (Manual) 0.0 Nucleated Red Blood Cells # Platelet Estimate DECREASED Giant Platelets 3 H Polychromasia 1+ Poikilocytosis 1+ Anisocytosis 1+ Microcytosis 1+ Ovalocytes 1+ Sodium Level 126 L Uric Acid 5.1 Bedside Glucose 150 Imaging Imaging Needle Biopsy CT 02/19/19 FINDINGS: Initial images demonstrate the tip of the needle at the posterior margin of the left iliac bone. Subsequent images demonstrate the needle within the bone. Post biopsy images demonstrate no immediate complication. Specimens: Bone marrow aspirate and bone marrow core from left iliac bone sent for pathology analysis. Blood loss: 1 ml. Complications: None. Telephone Operator Chief: None. Anesthesia: Local and moderate sedation. Graft/Implant: None. IMPRESSION: 1. Successful CT guided bone marrow aspiration and biopsy. Medications Medication Current Medications IV Flush (NS 3 ml) 3 ml PER PROTOCOL IV ; Start 02/06/19 at 15:00 Ondansetron HCl (Zofran Inj) 4 mg Q6H PRN IV NAUSEA/VOMITING Last administered on 02/16/19at 11:54; Admin Dose 4 MG; Start 02/06/19 at 15:00 Acetaminophen (Tylenol Tab) 650 mg Q6H PRN PO .PAIN 1-3 OR TEMP Last administered on 02/21/19at 12:50; Admin Dose 650 MG; Start 02/06/19 at 15:00 Atorvastatin Calcium (Lipitor) 10 mg DAILY@21 PO Last administered on 02/20/19at 20:24; Admin Dose 10 MG; Start 02/06/19 at 21:00 Miscellaneous Information 1 ea NOTE XX ; Start 02/06/19 at 16:00 Glucose (Glutose) 15 gm Q15M PRN PO DECREASED GLUCOSE; Start 02/06/19 at 16:00 Glucose (Glutose) 22.5 gm Q15M PRN PO DECREASED GLUCOSE; Start 02/06/19 at 16:00 Dextrose (D50w Syringe) 25 ml Q15M PRN IV DECREASED GLUCOSE; Start 02/06/19 at 16:00 Dextrose (D50w Syringe) 50 ml Q15M PRN IV DECREASED GLUCOSE; Start 02/06/19 at 16:00 Glucagon (Glucagen) 1 mg Q15M PRN IM DECREASED GLUCOSE; Start 02/06/19 at 16:00 Glucose (Glutose) 15 gm Q15M PRN BUCCAL DECREASED GLUCOSE; Start 02/06/19 at 16:00 Pantoprazole (Protonix Tab) 40 mg BID@0600,1800 PO Last administered on 02/21/19at 06:13; Admin Dose 40 MG; Start 02/07/19 at 06:00 Insulin Aspart (Novolog Insulin Pen) 7 unit WITH MEALS SC Last administered on 02/14/19 17:39; Admin Dose 7 UNIT; Start 02/07/19 at 09:30; Status Hold Miscellaneous Information (* Miscellaneous Pharmacy Order) Treatment of Hypoglycemia: 1.BG 51... Per protocol XX ; Start 02/08/19 at 09:00 Dextrose (D50w Syringe) 25 ml Q15M PRN IV .DECREASED GLUCOSE; Start 02/08/19 at 09:00 Dextrose (D50w Syringe) 50 ml Q15M PRN IV .DECREASED GLUCOSE; Start 02/08/19 at 09:00 Methimazole (Tapazole) 30 mg BID PO Last administered on 02/17/19at 08:28; Admin Dose 30 MG; Start 02/08/19 at 13:30; Status Hold Insulin Aspart (Novolog Insulin Pen) NOVOLOG *MODERATE* ALGORITHM WITH MEALS BEDTIME SC Last administered on 02/21/19at 08:30; Admin Dose 4 UNIT; Start 02/09/19 at 17:35 Heparin Sodium (Porcine) (Heparin (5000 Units/1ml)) 5,000 unit BID SC Last administered on 02/14/19at 22:48; Admin Dose 5,000 UNIT; Start 02/11/19 at 09:00; Status Hold Acetaminophen/ Hydrocodone Bitart ([place] (5/325)) 1 tab Q6H PRN PO MODERATE PAIN LEVEL 4-6 Last administered on 02/21/19at 08:23; Admin Dose 1 TAB; Start 02/12/19 at 09:00 Nystatin (Nystatin Susp) 5 ml QID PO Last administered on 02/21/19 09:59; Admin Dose 5 ML; Start 02/14/19 at 13:00; Stop 02/21/19 at 12:59 Senna (Senokot) 2 tab BID PO Last administered on 02/21/19 09:59; Admin Dose 2 TAB; Start 02/16/19 at 21:00 Insulin Glargine (Lantus) 5 units DAILY@0930 SC Last administered on 02/21/19 11:15; Admin Dose 5 UNITS; Start 02/18/19 at 09:30 Bismuth Subsalicylate (Pepto-Bismol) 30 ml QID PO Last administered on 02/21/19 09:59; Admin Dose 30 ML; Start 02/17/19 at 17:30 Amoxicillin (Amoxicillin) 1,000 mg BID PO Last administered on 02/21/19 09:58; Admin Dose 1,000 MG; Start 02/17/19 at 18:30; Stop 02/21/19 at 18:29 Clarithromycin (Biaxin) 500 mg BID PO Last administered on 02/21/19 09:58; Admin Dose 500 MG; Start 02/17/19 at 18:30; Stop 02/21/19 at 18:29 Sodium Chloride (Nacl) 1 gm TID PO Last administered on 02/21/19 12:49; Admin Dose 1 GM; Start 02/19/19 at 21:00 Metoprolol Tartrate (Lopressor) 50 mg Q8 PO ; Start 02/21/19 at 14:00 BAL GODOY NP Feb 21, 2019 12:58
[2019-02-21] MEDS ORDERED: morphine 2 MG INJ IV STA (13:41)
--- NOTE | 2019-02-21 14:38 | PN ---
Date/Time of Note Date/Time of Note DATE: 02/21/19 TIME: 14:37 Assessment/Plan VTE Prophylaxis Risk score (from Nsg)>0 risk: 5 SCD applied (from Nsg): Yes Pharmacological prophylaxis: heparin Lines/Catheters IV Catheter Type (from Nrsg): Peripheral IV Urinary Cath still in place: No Assessment/Plan Hospital Course EXAM: Appears comfortable Tachy, regular Thyromegaly Mild proprtosis CTAB Soft nt nd Testicular edema 59 yo male with hyperthyroidism, hyponatremia, and pancytopenias with FUO/SIRS FUO/SIRS: - Unclear source. Has not resolved with abx. Extensive imaging, WBC scan ne gative. I suspect this is related to perhaps a hematologic malignancy Hyperthyroid: - Off of anti-thyroidal meds per endocrine - Awaits ablation as outpatient Tachycardia 2/ hyperthyroid: - Metoprolol titration Cytopenias: - Flow cytometry suggested mild atypia, bone marrow biopsy per Dr Dela Cruz. LDH very elevated DMII: - Basal/bolus insulin Hyponatremia: - Chronic SIADH - Start salt tabs, FW restrition Result Diagram: 02/21/19 1119 02/21/19 1157 Results 24hrs Laboratory Tests Test 02/20/19 17:22 02/20/19 22:09 02/21/19 08:07 02/21/19 11:19 Bedside Glucose 112 118 200 White Blood Count 4.6 #L Red Blood Count 3.21 L Hemoglobin 7.9 L Hematocrit 25.0 L Mean Corpuscular 77.9 L Volume Mean Corpuscular 24.6 L Hemoglobin Mean Corpuscular 31.6 L Hemoglobin Concent Red Cell 20.3 H Distribution Width Platelet Count 94 #L Mean Platelet Volume 9.8 Immature 0.600 H Granulocytes % Neutrophils % Segmented 75 Neutrophils % (Manual) Band Neutrophils % 6 H (Manual) Lymphocytes % Lymphocytes % 14 L (Manual) Reactive Lymphocytes 1 H % (Manual) Monocytes % Monocytes % (Manual) 2 Eosinophils % Basophils % Basophils % (Manual) 2 Nucleated Red Blood 0.0 Cells % Immature 0.030 Granulocytes # Neutrophils # Neutrophils # 3.5 (Manual) Band Neutrophils # 0.2 Lymphocytes (Manual) 0.6 L Lymphocytes # Reactive Lymphocytes 0.0 # Monocytes # Monocytes # (Manual) 0.0 L Eosinophils # Basophils # Basophils # (Manual) 0.0 Nucleated Red Blood Cells # Platelet Estimate DECREASED Giant Platelets 3 H Polychromasia 1+ Poikilocytosis 1+ Anisocytosis 1+ Microcytosis 1+ Ovalocytes 1+ Test 02/21/19 11:57 02/21/19 12:17 Sodium Level 126 L Uric Acid 5.1 Bedside Glucose 150 Subjective 24 Hr Interval Summary Free Text/Dictation Continues to have testicular pain, worsening Exam/Review of Systems Exam Vitals Vital Signs Date Temp Pulse Resp B/P (MAP) Pulse Ox O2 O2 Flow FiO2 Time Delivery Rate 02/21/19 98 12:27 02/21/19 97.6 22 124/74 96 Nasal 2.0 11:25 (91) Cannula Intake and Output 02/20/19 02/20/19 02/21/19 1414:59 22:59 06:59 IntakeIntake Total 250 ml 100 ml 350 ml BalanceBalance 250 ml 100 ml 350 ml Results Results 24hrs Laboratory Tests Test 02/20/19 17:22 02/20/19 22:09 02/21/19 08:07 02/21/19 11:19 Bedside Glucose 112 118 200 White Blood Count 4.6 #L Red Blood Count 3.21 L Hemoglobin 7.9 L Hematocrit 25.0 L Mean Corpuscular 77.9 L Volume Mean Corpuscular 24.6 L Hemoglobin Mean Corpuscular 31.6 L Hemoglobin Concent Red Cell 20.3 H Distribution Width Platelet Count 94 #L Mean Platelet Volume 9.8 Immature 0.600 H Granulocytes % Neutrophils % Segmented 75 Neutrophils % (Manual) Band Neutrophils % 6 H (Manual) Lymphocytes % Lymphocytes % 14 L (Manual) Reactive Lymphocytes 1 H % (Manual) Monocytes % Monocytes % (Manual) 2 Eosinophils % Basophils % Basophils % (Manual) 2 Nucleated Red Blood 0.0 Cells % Immature 0.030 Granulocytes # Neutrophils # Neutrophils # 3.5 (Manual) Band Neutrophils # 0.2 Lymphocytes (Manual) 0.6 L Lymphocytes # Reactive Lymphocytes 0.0 # Monocytes # Monocytes # (Manual) 0.0 L Eosinophils # Basophils # Basophils # (Manual) 0.0 Nucleated Red Blood Cells # Platelet Estimate DECREASED Giant Platelets 3 H Polychromasia 1+ Poikilocytosis 1+ Anisocytosis 1+ Microcytosis 1+ Ovalocytes 1+ Test 02/21/19 11:57 02/21/19 12:17 Sodium Level 126 L Uric Acid 5.1 Bedside Glucose 150 Medications Medication Current Medications IV Flush (NS 3 ml) 3 ml PER PROTOCOL IV ; Start 02/06/19 at 15:00 Ondansetron HCl (Zofran Inj) 4 mg Q6H PRN IV NAUSEA/VOMITING Last administered on 02/16/19at 11:54; Admin Dose 4 MG; Start 02/06/19 at 15:00 Acetaminophen (Tylenol Tab) 650 mg Q6H PRN PO .PAIN 1-3 OR TEMP Last administered on 02/21/19at 12:50; Admin Dose 650 MG; Start 02/06/19 at 15:00 Atorvastatin Calcium (Lipitor) 10 mg DAILY@21 PO Last administered on 02/20/19at 20:24; Admin Dose 10 MG; Start 02/06/19 at 21:00 Miscellaneous Information 1 ea NOTE XX ; Start 02/06/19 at 16:00 Glucose (Glutose) 15 gm Q15M PRN PO DECREASED GLUCOSE; Start 02/06/19 at 16:00 Glucose (Glutose) 22.5 gm Q15M PRN PO DECREASED GLUCOSE; Start 02/06/19 at 16:00 Dextrose (D50w Syringe) 25 ml Q15M PRN IV DECREASED GLUCOSE; Start 02/06/19 at 16:00 Dextrose (D50w Syringe) 50 ml Q15M PRN IV DECREASED GLUCOSE; Start 02/06/19 at 16:00 Glucagon (Glucagen) 1 mg Q15M PRN IM DECREASED GLUCOSE; Start 02/06/19 at 16:00 Glucose (Glutose) 15 gm Q15M PRN BUCCAL DECREASED GLUCOSE; Start 02/06/19 at 16:00 Pantoprazole (Protonix Tab) 40 mg BID@0600,1800 PO Last administered on 02/21/19at 06:13; Admin Dose 40 MG; Start 02/07/19 at 06:00 Insulin Aspart (Novolog Insulin Pen) 7 unit WITH MEALS SC Last administered on 02/14/19at 17:39; Admin Dose 7 UNIT; Start 02/07/19 at 09:30; Status Hold Miscellaneous Information (* Miscellaneous Pharmacy Order) Treatment of Hypoglycemia: 1.BG 51... Per protocol XX ; Start 02/08/19 at 09:00 Dextrose (D50w Syringe) 25 ml Q15M PRN IV .DECREASED GLUCOSE; Start 02/08/19 at 09:00 Dextrose (D50w Syringe) 50 ml Q15M PRN IV .DECREASED GLUCOSE; Start 02/08/19 at 09:00 Methimazole (Tapazole) 30 mg BID PO Last administered on 02/17/19 08:28; Admin Dose 30 MG; Start 02/08/19 at 13:30; Status Hold Insulin Aspart (Novolog Insulin Pen) NOVOLOG *MODERATE* ALGORITHM WITH MEALS BEDTIME SC Last administered on 02/21/19 08:30; Admin Dose 4 UNIT; Start 02/09/19 at 17:35 Heparin Sodium (Porcine) (Heparin (5000 Units/1ml)) 5,000 unit BID SC Last administered on 02/14/19 22:48; Admin Dose 5,000 UNIT; Start 02/11/19 at 09:00; Status Hold Acetaminophen/ Hydrocodone Bitart ([place] (5/325)) 1 tab Q6H PRN PO MODERATE PAIN LEVEL 4-6 Last administered on 02/21/19 08:23; Admin Dose 1 TAB; Start 02/12/19 at 09:00 Senna (Senokot) 2 tab BID PO Last administered on 02/21/19 09:59; Admin Dose 2 TAB; Start 02/16/19 at 21:00 Insulin Glargine (Lantus) 5 units DAILY@0930 SC Last administered on 02/21/19 11:15; Admin Dose 5 UNITS; Start 02/18/19 at 09:30 Bismuth Subsalicylate (Pepto-Bismol) 30 ml QID PO Last administered on 02/21/19 09:59; Admin Dose 30 ML; Start 02/17/19 at 17:30 Amoxicillin (Amoxicillin) 1,000 mg BID PO Last administered on 02/21/19 09:58; Admin Dose 1,000 MG; Start 02/17/19 at 18:30; Stop 02/21/19 at 18:29 Clarithromycin (Biaxin) 500 mg BID PO Last administered on 02/21/19 09:58; Admin Dose 500 MG; Start 02/17/19 at 18:30; Stop 02/21/19 at 18:29 Sodium Chloride (Nacl) 1 gm TID PO Last administered on 02/21/19 12:49; Admin Dose 1 GM; Start 02/19/19 at 21:00 Metoprolol Tartrate (Lopressor) 50 mg Q8 PO Last administered on 02/21/19at 13:25; Admin Dose 50 MG; Start 02/21/19 at 14:00 KIRK AREVALO MD Feb 21, 2019 14:38
[2019-02-21] MEDS ORDERED: morphine 2 MG INJ IV PRN (17:00)
[2019-02-21] MEDS: ATORVASTATIN 10 MG TAB PO SCH (21:22)
[2019-02-22] VITALS (11 sets, daily range): BP systolic 83–116; BP diastolic 53–64; PULSE 89–104; RESP 18
[2019-02-22] MEDS: HYDROCODONE/APAP (5/325) TAB PO PRN ×2 (04:54→22:55)
[2019-02-22] MEDS ORDERED: morphine 2 MG INJ IV ONE (05:36)
[2019-02-22] MEDS: METOPROLOL 50 MG TAB PO SCH ×3 (05:44→22:54)
[2019-02-22] MEDS: PANTOPRAZOLE (EC) 40 MG TAB PO SCH ×2 (05:45→17:58)
[2019-02-22] MEDS ORDERED: FUROSEMIDE 20 MG INJ IV ONE (06:00)
[2019-02-22] MEDS: INSULIN ASPART [NOVOLOG] 3 ML PEN SC SCH ×4 (07:55→21:00)
[2019-02-22] MEDS: SODIUM CHLORIDE 1 GM TAB PO SCH ×3 (09:20→22:55)
[2019-02-22] MEDS: SENNA TAB PO SCH ×2 (09:20→22:55)
[2019-02-22] MEDS: INSULIN GLARGINE [LANTus] (100 UNITS/ML) SYG SC SCH (09:25)
[2019-02-22] MEDS: BISMUTH SUBSALICYLATE 240 ML BTL PO SCH ×4 (10:38→21:00)
--- NOTE | 2019-02-22 10:53 | CONS ---
Assessment/Plan Assessment/Plan Assessment/Plan (Daily) 1. Hyponatremia. initial urine Na was high suggesting possible SIADH. Repeat Jenny is low. However, Na is improving with fluid restriction. s/p lasix today. will continue to monitor Na. 2. Hypothyroidism. Continue current medical management. 3. Thrombocytopenia. Patient is status post bone marrow biopsy. Continue to monitor. Follow up results per hematology. 4. Diabetes. Continue current insulin regimen. 5. SIRS. Etiology is unclear. The patient's previous cultures negative, status post antibiotic therapy. Continue to monitor. 6. Arrhythmia: continue medical management. Consultation Date/Type/Reason Admit Date/Time Feb 06, 2019 at 14:46 Initial Consult Date 02/18/19 Requesting Provider: KIRK AREVALO MD Date/Time of Note DATE: 02/22/19 TIME: 10:50 24 HR Interval Summary Free Text/Dictation s/p lasix this am denies shortness of breath, n/v or urinary issues d/w rn gen nad cv rrr pulm ctab abd soft, nd, nt +bs ext: no edema Exam/Review of Systems Exam Vitals Vital Signs Date Temp Pulse Resp B/P (MAP) Pulse Ox O2 O2 Flow FiO2 Time Delivery Rate 02/22/19 Nasal 2.0 08:42 Cannula 02/22/19 94 08:01 02/22/19 98.1 18 101/59 99 07:16 (73) Intake and Output 02/21/19 02/21/19 02/22/19 1515:00 23:00 07:00 IntakeIntake Total 720 ml 300 ml BalanceBalance 720 ml 300 ml Results Result Diagram: 02/21/19 1119 02/22/19 0753 Results 24hrs Laboratory Tests Test 02/21/19 11:19 02/21/19 11:57 02/21/19 12:17 02/21/19 15:00 White Blood Count 4.6 #L Red Blood Count 3.21 L Hemoglobin 7.9 L Hematocrit 25.0 L Mean Corpuscular 77.9 L Volume Mean Corpuscular 24.6 L Hemoglobin Mean Corpuscular 31.6 L Hemoglobin Concent Red Cell 20.3 H Distribution Width Platelet Count 94 #L Mean Platelet Volume 9.8 Immature 0.600 H Granulocytes % Neutrophils % Segmented 75 Neutrophils % (Manual) Band Neutrophils % 6 H (Manual) Lymphocytes % Lymphocytes % 14 L (Manual) Reactive Lymphocytes 1 H % (Manual) Monocytes % Monocytes % (Manual) 2 Eosinophils % Basophils % Basophils % (Manual) 2 Nucleated Red Blood 0.0 Cells % Immature 0.030 Granulocytes # Neutrophils # Neutrophils # 3.5 (Manual) Band Neutrophils # 0.2 Lymphocytes (Manual) 0.6 L Lymphocytes # Reactive Lymphocytes 0.0 # Monocytes # Monocytes # (Manual) 0.0 L Eosinophils # Basophils # Basophils # (Manual) 0.0 Nucleated Red Blood Cells # Platelet Estimate DECREASED Giant Platelets 3 H Polychromasia 1+ Poikilocytosis 1+ Anisocytosis 1+ Microcytosis 1+ Ovalocytes 1+ Sodium Level 126 L Uric Acid 5.1 Bedside Glucose 150 Urine Color YELLOW Urine Clarity CLEAR Urine pH 6.0 Urine Specific 1.012 [place] Urine Ketones NEGATIVE Urine Nitrite NEGATIVE Urine Bilirubin NEGATIVE Urine Urobilinogen NEGATIVE Urine Leukocyte NEGATIVE Esterase Urine Hemoglobin NEGATIVE Urine Osmolality 269 Urine Random 58.39 Creatinine Urine Random Sodium 28 L Urine Glucose NEGATIVE Urine Total Protein 30.0 H Test 02/21/19 17:26 02/21/19 21:20 02/22/19 07:53 02/22/19 08:10 Bedside Glucose 150 85 110 Erythrocyte 55 H Sedimentation Rate Sodium Level 127 L Potassium Level 3.8 Chloride Level 95 L Carbon Dioxide Level 24 Anion Gap 8 Blood Urea Nitrogen 7 Creatinine 0.60 L Est Glomerular > 60 Filtrat Rate mL/min Glucose Level 105 Calcium Level 8.4 Test 02/22/19 09:22 Bedside Glucose 144 Medications Medication Current Medications IV Flush (NS 3 ml) 3 ml PER PROTOCOL IV ; Start 02/06/19 at 15:00 Ondansetron HCl (Zofran Inj) 4 mg Q6H PRN IV NAUSEA/VOMITING Last administered on 02/16/19at 11:54; Admin Dose 4 MG; Start 02/06/19 at 15:00 Acetaminophen (Tylenol Tab) 650 mg Q6H PRN PO .PAIN 1-3 OR TEMP Last administered on 02/21/19at 12:50; Admin Dose 650 MG; Start 02/06/19 at 15:00 Atorvastatin Calcium (Lipitor) 10 mg DAILY@21 PO Last administered on 02/21/19at 21:22; Admin Dose 10 MG; Start 02/06/19 at 21:00 Miscellaneous Information 1 ea NOTE XX ; Start 02/06/19 at 16:00 Glucose (Glutose) 15 gm Q15M PRN PO DECREASED GLUCOSE; Start 02/06/19 at 16:00 Glucose (Glutose) 22.5 gm Q15M PRN PO DECREASED GLUCOSE; Start 02/06/19 at 16:00 Dextrose (D50w Syringe) 25 ml Q15M PRN IV DECREASED GLUCOSE; Start 02/06/19 at 16:00 Dextrose (D50w Syringe) 50 ml Q15M PRN IV DECREASED GLUCOSE; Start 02/06/19 at 16:00 Glucagon (Glucagen) 1 mg Q15M PRN IM DECREASED GLUCOSE; Start 02/06/19 at 16:00 Glucose (Glutose) 15 gm Q15M PRN BUCCAL DECREASED GLUCOSE; Start 02/06/19 at 16:00 Pantoprazole (Protonix Tab) 40 mg BID@0600,1800 PO Last administered on 02/22/19at 05:45; Admin Dose 40 MG; Start 02/07/19 at 06:00 Insulin Aspart (Novolog Insulin Pen) 7 unit WITH MEALS SC Last administered on 02/14/19at 17:39; Admin Dose 7 UNIT; Start 02/07/19 at 09:30; Status Hold Miscellaneous Information (* Miscellaneous Pharmacy Order) Treatment of Hypoglycemia: 1.BG 51... Per protocol XX ; Start 02/08/19 at 09:00 Dextrose (D50w Syringe) 25 ml Q15M PRN IV .DECREASED GLUCOSE; Start 02/08/19 at 09:00 Dextrose (D50w Syringe) 50 ml Q15M PRN IV .DECREASED GLUCOSE; Start 02/08/19 at 09:00 Methimazole (Tapazole) 30 mg BID PO Last administered on 02/17/19at 08:28; Admin Dose 30 MG; Start 02/08/19 at 13:30; Status Hold Insulin Aspart (Novolog Insulin Pen) NOVOLOG *MODERATE* ALGORITHM WITH MEALS BEDTIME SC Last administered on 02/21/19at 18:25; Admin Dose 2 UNIT; Start 02/09/19 at 17:35 Heparin Sodium (Porcine) (Heparin (5000 Units/1ml)) 5,000 unit BID SC Last administered on 02/14/19at 22:48; Admin Dose 5,000 UNIT; Start 02/11/19 at 09:00; Status Hold Acetaminophen/ Hydrocodone Bitart ([place] (5/325)) 1 tab Q6H PRN PO MODERATE PAIN LEVEL 4-6 Last administered on 02/22/19 04:54; Admin Dose 1 TAB; Start 02/12/19 at 09:00 Senna (Senokot) 2 tab BID PO Last administered on 02/22/19 09:20; Admin Dose 2 TAB; Start 02/16/19 at 21:00 Insulin Glargine (Lantus) 5 units DAILY@0930 SC Last administered on 02/22/19 09:25; Admin Dose 5 UNITS; Start 02/18/19 at 09:30 Bismuth Subsalicylate (Pepto-Bismol) 30 ml QID PO Last administered on 02/22/19 10:38; Admin Dose 30 ML; Start 02/17/19 at 17:30 Sodium Chloride (Nacl) 1 gm TID PO Last administered on 02/22/19 09:20; Admin Dose 1 GM; Start 02/19/19 at 21:00 Metoprolol Tartrate (Lopressor) 50 mg Q8 PO Last administered on 02/21/19 21:21; Admin Dose 50 MG; Start 02/21/19 at 14:00 Morphine Sulfate (morphine) 2 mg Q4H PRN IV SEVERE PAIN LEVEL 7-10; Start 02/22/19 at 09:00 MARY MELARA MD Feb 22, 2019 10:52
[2019-02-22] MEDS: morphine 2 MG INJ IV PRN ×2 (12:45→18:33)
--- NOTE | 2019-02-22 14:08 | CONS ---
Assessment/Plan Assessment/Plan Hospital Course (Demo Recall) Hyperthyroidism -methimazole is currently on hold pending POOLE uptake scan Type 2 DM -FS in target range -continue lantus 5 units daily, novolog 7 units TIDAC and moderate dose novolog correction scale AC and HS -check FS AC and HS -will monitor Consultation Date/Type/Reason Admit Date/Time Feb 06, 2019 at 14:46 Initial Consult Date 02/18/19 Requesting Provider: KIRK AREVALO MD Date/Time of Note DATE: 02/22/19 TIME: 14:04 24 HR Interval Summary Free Text/Dictation Patient seen and examined at bedside. He denied palpitation, diarrhea or anxiety. He complains of scrotal swelling and pain. Exam/Review of Systems Exam Vitals Vital Signs Date Temp Pulse Resp B/P (MAP) Pulse Ox O2 O2 Flow FiO2 Time Delivery Rate 02/22/19 104 12:01 02/22/19 100.0 18 107/64 94 11:42 (78) 02/22/19 Nasal 2.0 08:42 Cannula Intake and Output 02/21/19 02/21/19 02/22/19 1515:00 23:00 07:00 IntakeIntake Total 720 ml 300 ml BalanceBalance 720 ml 300 ml Exam General: In mild distress due to pain. Skin appropriate for ethnicity Eye: Extraocular movements are intact, Normal conjunctiva. Mild exothalmos HENT: Normocephalic, atraumatic. Respiratory: Respirations are non-labored, Breath sounds are equal, Symmetrical chest wall expansion. Cardiovascular: S1, S2. No murmur. No LE edema Gastrointestinal: Soft, Non-tender, Non-distended, Normal bowel sounds. Genitourinary: B/l scrotal swelling, no erythema Integumentary: Warm to touch. Neurologic: Alert, Oriented. Cognition and Speech: Speech clear and coherent, Functional cognition intact. Psychiatric: Cooperative, Appropriate mood & affect. Results Result Diagram: 02/21/19 1119 02/22/19 0753 Results 24hrs Laboratory Tests Test 02/21/19 15:00 02/21/19 17:26 02/21/19 21:20 02/22/19 07:53 Urine Color YELLOW Urine Clarity CLEAR Urine pH 6.0 Urine Specific 1.012 [place] Urine Ketones NEGATIVE Urine Nitrite NEGATIVE Urine Bilirubin NEGATIVE Urine Urobilinogen NEGATIVE Urine Leukocyte NEGATIVE Esterase Urine Hemoglobin NEGATIVE Urine Osmolality 269 Urine Random 58.39 Creatinine Urine Random Sodium 28 L Urine Glucose NEGATIVE Urine Total Protein 30.0 H Bedside Glucose 150 85 Erythrocyte 55 H Sedimentation Rate Sodium Level 127 L Potassium Level 3.8 Chloride Level 95 L Carbon Dioxide Level 24 Anion Gap 8 Blood Urea Nitrogen 7 Creatinine 0.60 L Est Glomerular > 60 Filtrat Rate mL/min Glucose Level 105 Calcium Level 8.4 Test 02/22/19 08:10 02/22/19 09:22 02/22/19 12:20 Bedside Glucose 110 144 164 Medications Medication Current Medications IV Flush (NS 3 ml) 3 ml PER PROTOCOL IV ; Start 02/06/19 at 15:00 Ondansetron HCl (Zofran Inj) 4 mg Q6H PRN IV NAUSEA/VOMITING Last administered on 02/16/19at 11:54; Admin Dose 4 MG; Start 02/06/19 at 15:00 Acetaminophen (Tylenol Tab) 650 mg Q6H PRN PO .PAIN 1-3 OR TEMP Last administered on 02/21/19at 12:50; Admin Dose 650 MG; Start 02/06/19 at 15:00 Atorvastatin Calcium (Lipitor) 10 mg DAILY@21 PO Last administered on 02/21/19at 21:22; Admin Dose 10 MG; Start 02/06/19 at 21:00 Miscellaneous Information 1 ea NOTE XX ; Start 02/06/19 at 16:00 Glucose (Glutose) 15 gm Q15M PRN PO DECREASED GLUCOSE; Start 02/06/19 at 16:00 Glucose (Glutose) 22.5 gm Q15M PRN PO DECREASED GLUCOSE; Start 02/06/19 at 16:00 Dextrose (D50w Syringe) 25 ml Q15M PRN IV DECREASED GLUCOSE; Start 02/06/19 at 16:00 Dextrose (D50w Syringe) 50 ml Q15M PRN IV DECREASED GLUCOSE; Start 02/06/19 at 16:00 Glucagon (Glucagen) 1 mg Q15M PRN IM DECREASED GLUCOSE; Start 02/06/19 at 16:00 Glucose (Glutose) 15 gm Q15M PRN BUCCAL DECREASED GLUCOSE; Start 02/06/19 at 16:00 Pantoprazole (Protonix Tab) 40 mg BID@0600,1800 PO Last administered on 02/22/19at 05:45; Admin Dose 40 MG; Start 02/07/19 at 06:00 Insulin Aspart (Novolog Insulin Pen) 7 unit WITH MEALS SC Last administered on 02/14/19 17:39; Admin Dose 7 UNIT; Start 02/07/19 at 09:30; Status Hold Miscellaneous Information (* Miscellaneous Pharmacy Order) Treatment of Hypoglycemia: 1.BG 51... Per protocol XX ; Start 02/08/19 at 09:00 Dextrose (D50w Syringe) 25 ml Q15M PRN IV .DECREASED GLUCOSE; Start 02/08/19 at 09:00 Dextrose (D50w Syringe) 50 ml Q15M PRN IV .DECREASED GLUCOSE; Start 02/08/19 at 09:00 Methimazole (Tapazole) 30 mg BID PO Last administered on 02/17/19 08:28; Admin Dose 30 MG; Start 02/08/19 at 13:30; Status Hold Insulin Aspart (Novolog Insulin Pen) NOVOLOG *MODERATE* ALGORITHM WITH MEALS BEDTIME SC Last administered on 02/22/19 12:23; Admin Dose 2 UNIT; Start 02/09/19 at 17:35 Heparin Sodium (Porcine) (Heparin (5000 Units/1ml)) 5,000 unit BID SC Last administered on 02/14/19 22:48; Admin Dose 5,000 UNIT; Start 02/11/19 at 09:00; Status Hold Acetaminophen/ Hydrocodone Bitart ([place] (5/325)) 1 tab Q6H PRN PO MODERATE PAIN LEVEL 4-6 Last administered on 02/22/19 04:54; Admin Dose 1 TAB; Start 02/12/19 at 09:00 Senna (Senokot) 2 tab BID PO Last administered on 02/22/19 09:20; Admin Dose 2 TAB; Start 02/16/19 at 21:00 Insulin Glargine (Lantus) 5 units DAILY@0930 SC Last administered on 02/22/19 09:25; Admin Dose 5 UNITS; Start 02/18/19 at 09:30 Bismuth Subsalicylate (Pepto-Bismol) 30 ml QID PO Last administered on 02/22/19 at 13:28; Admin Dose 30 ML; Start 02/17/19 at 17:30 Sodium Chloride (Nacl) 1 gm TID PO Last administered on 02/22/19 13:27; Admin Dose 1 GM; Start 02/19/19 at 21:00 Metoprolol Tartrate (Lopressor) 50 mg Q8 PO Last administered on 02/22/19 13:27; Admin Dose 50 MG; Start 02/21/19 at 14:00 Morphine Sulfate (morphine) 2 mg Q4H PRN IV SEVERE PAIN LEVEL 7-10 Last administered on 02/22/19 12:45; Admin Dose 2 MG; Start 02/22/19 at 09:00 YECENIA MANTILLA MD Feb 22, 2019 14:08
--- NOTE | 2019-02-22 14:09 | CONS ---
[facility] HCIS Consult Follow-up Patient Name: Alejandro Whitaker Unit Number: [id number] Date of : 1960 Patient Status: Admitted Inpatient Attending Doctor: Irving Gonzalez MD Edit: BRENDEN RODRIGUEZ M.D. on 02/24/19 @ 04:49 Michael: I discussed the management with NURSE LEADER and agree Assessment/Plan Assessment/Plan Hospital Course (Demo Recall) - Recurrent SIRS (fever and tachycardia), r/o sepsis; previous ID w/u and imagi ng were negative; - s/p Vancomycin and Cefepime (12/11/2018-12/14/18) - Mild peno-scrotal edema with possible left epididymitis as suggested on the FARZANA - s/p amoxicillin - s/p Mild pyuria - urine cx grew <10K Citrobacter Koseri and <10K C. Albicans; pt is asymptomatic - repeat UA without pyuria, cx pending NGTD - s/p bone marrow biopsy 02/20/19 - showed nl cellular marrow with adequate megakaryopoiesis, reduced marrow hemosiderin, reticulin fibrosis, mild, no granulomas identified, no e/o malignancy, no diagnostic immunophenotypic abl detected - H. 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 Penumo ESBL in sputum cx on 12/15/2018, likely colonizer - Hx EBV exposure - The following is negative: HIV, HIV viral load, procalc <0.10 on 12/12/18, Cryto AG, Phillips-smear, malaria, resp virus panel, MTB complex, HSV 1&2 by PCR, CMV, WBC scan on 12/18/2018, ESR 70 on 02/13/19 Recommendations: - Monitor off antibiotics - s/p treatment for H. pylori with amoxicillin, clarithromycin and PPI (02/06/2019-02/21/19); s/p Zosyn (02/16/19 --02/20/19 ) - F/u procalcitonin (in process), repeat urine cx (NGTD) - F/u Testicular ultrasound results when available Plan was d/w patient, his at bedside, and with Dr. Rodriguez. Thank you Consultation Date/Type/Reason Admit Date/Time Feb 06, 2019 at 14:46 Initial Consult Date 02/18/19 Type of Consult ID Requesting Provider: IRVING GONZALEZ MD Date/Time of Note DATE: 02/22/19 TIME: 14:05 24 HR Interval Summary Free Text/Dictation Testicular US was done today, results pending. Pt had a low grade 100.0 this am. No acute issues reported by nursing. Detailed Summary Eyes: no complaints ENT: no complaints Respiratory: shortness of breath (with exertion); No wheezing Cardiovascular: no complaints Gastrointestinal: no complaints Genitourinary: other (Testicular swelling increased from yesterday. Scrotal pain 05/14 ) Musculoskeletal: no complaints Skin: no complaints, other (denied chills today) Neurologic: no complaints Endocrine: no complaints Lymphatic: no complaints Psychological: no complaints Exam/Review of Systems Exam Vitals Vital Signs Date Temp Pulse Resp B/P (MAP) Pulse Ox O2 O2 Flow FiO2 Time Delivery Rate 02/22/19 104 12:01 02/22/19 100.0 18 107/64 94 11:42 (78) 02/22/19 Nasal 2.0 08:42 Cannula Intake and Output 02/21/19 02/21/19 02/22/19 1515:00 23:00 07:00 IntakeIntake Total 720 ml 300 ml BalanceBalance 720 ml 300 ml Allergies Coded Allergies No Known Allergy (Unverified02/06/19) Exam Constitutional: alert, oriented, well developed, other (patient was laying flat in bed but in no distress) Psych: nl mood/affect Head: normocephalic, atraumatic Eyes: nl conjunctiva, nl lids, nl sclera, other (exopthalmus) ENMT: nl external ears & nose, nl nasal mucosa & septum, mucosa pink and moist (no thrush noted) Neck: supple, non-tender Respiratory: clear to auscultation, normal air movement Cardiovascular: regular rate and rhythm, nl pulses Gastrointestinal: soft, non-tender, bowel sounds (normoactive); No distended, No tender Genitourinary - Male: nl penis, other (scrotal swelling appears increased from yesteday, no induration, soft, but tender with palpation. 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, nl mental status, nl speech Skin: nl turgor; No rash or lesions Results Result Diagram: 02/21/19 1119 02/22/19 0753 Results 24hrs Laboratory Tests Test 02/21/19 15:00 02/21/19 17:26 02/21/19 21:20 02/22/19 07:53 Urine Color YELLOW Urine Clarity CLEAR Urine pH 6.0 Urine Specific 1.012 [place] Urine Ketones NEGATIVE Urine Nitrite NEGATIVE Urine Bilirubin NEGATIVE Urine Urobilinogen NEGATIVE Urine Leukocyte NEGATIVE Esterase Urine Hemoglobin NEGATIVE Urine Osmolality 269 Urine Random 58.39 Creatinine Urine Random Sodium 28 L Urine Glucose NEGATIVE Urine Total Protein 30.0 H Bedside Glucose 150 85 Erythrocyte 55 H Sedimentation Rate Sodium Level 127 L Potassium Level 3.8 Chloride Level 95 L Carbon Dioxide Level 24 Anion Gap 8 Blood Urea Nitrogen 7 Creatinine 0.60 L Est Glomerular > 60 Filtrat Rate mL/min Glucose Level 105 Calcium Level 8.4 Test 02/22/19 08:10 02/22/19 09:22 02/22/19 12:20 Bedside Glucose 110 144 164 Medications Medication Current Medications IV Flush (NS 3 ml) 3 ml PER PROTOCOL IV ; Start 02/06/19 at 15:00 Ondansetron HCl (Zofran Inj) 4 mg Q6H PRN IV NAUSEA/VOMITING Last administered on 02/16/19at 11:54; Admin Dose 4 MG; Start 02/06/19 at 15:00 Acetaminophen (Tylenol Tab) 650 mg Q6H PRN PO .PAIN 1-3 OR TEMP Last administered on 02/21/19at 12:50; Admin Dose 650 MG; Start 02/06/19 at 15:00 Atorvastatin Calcium (Lipitor) 10 mg DAILY@21 PO Last administered on 02/21/19at 21:22; Admin Dose 10 MG; Start 02/06/19 at 21:00 Miscellaneous Information 1 ea NOTE XX ; Start 02/06/19 at 16:00 Glucose (Glutose) 15 gm Q15M PRN PO DECREASED GLUCOSE; Start 02/06/19 at 16:00 Glucose (Glutose) 22.5 gm Q15M PRN PO DECREASED GLUCOSE; Start 02/06/19 at 16:00 Dextrose (D50w Syringe) 25 ml Q15M PRN IV DECREASED GLUCOSE; Start 02/06/19 at 16:00 Dextrose (D50w Syringe) 50 ml Q15M PRN IV DECREASED GLUCOSE; Start 02/06/19 at 16:00 Glucagon (Glucagen) 1 mg Q15M PRN IM DECREASED GLUCOSE; Start 02/06/19 at 16:00 Glucose (Glutose) 15 gm Q15M PRN BUCCAL DECREASED GLUCOSE; Start 02/06/19 at 16:00 Pantoprazole (Protonix Tab) 40 mg BID@0600,1800 PO Last administered on 02/22/19at 05:45; Admin Dose 40 MG; Start 02/07/19 at 06:00 Insulin Aspart (Novolog Insulin Pen) 7 unit WITH MEALS SC Last administered on 02/14/19at 17:39; Admin Dose 7 UNIT; Start 02/07/19 at 09:30; Status Hold Miscellaneous Information (* Miscellaneous Pharmacy Order) Treatment of Hypoglycemia: 1.BG 51... Per protocol XX ; Start 02/08/19 at 09:00 Dextrose (D50w Syringe) 25 ml Q15M PRN IV .DECREASED GLUCOSE; Start 02/08/19 at 09:00 Dextrose (D50w Syringe) 50 ml Q15M PRN IV .DECREASED GLUCOSE; Start 02/08/19 at 09:00 Methimazole (Tapazole) 30 mg BID PO Last administered on 02/17/19at 08:28; Admin Dose 30 MG; Start 02/08/19 at 13:30; Status Hold Insulin Aspart (Novolog Insulin Pen) NOVOLOG *MODERATE* ALGORITHM WITH MEALS BEDTIME SC Last administered on 02/22/19 12:23; Admin Dose 2 UNIT; Start 02/09/19 at 17:35 Heparin Sodium (Porcine) (Heparin (5000 Units/1ml)) 5,000 unit BID SC Last administered on 02/14/19 22:48; Admin Dose 5,000 UNIT; Start 02/11/19 at 09:00; Status Hold Acetaminophen/ Hydrocodone Bitart ([place] (5/325)) 1 tab Q6H PRN PO MODERATE PAIN LEVEL 4-6 Last administered on 02/22/19 04:54; Admin Dose 1 TAB; Start 02/12/19 at 09:00 Senna (Senokot) 2 tab BID PO Last administered on 02/22/19 09:20; Admin Dose 2 TAB; Start 02/16/19 at 21:00 Insulin Glargine (Lantus) 5 units DAILY@0930 SC Last administered on 02/22/19 09:25; Admin Dose 5 UNITS; Start 02/18/19 at 09:30 Bismuth Subsalicylate (Pepto-Bismol) 30 ml QID PO Last administered on 02/22/19 13:28; Admin Dose 30 ML; Start 02/17/19 at 17:30 Sodium Chloride (Nacl) 1 gm TID PO Last administered on 02/22/19 13:27; Admin Dose 1 GM; Start 02/19/19 at 21:00 Metoprolol Tartrate (Lopressor) 50 mg Q8 PO Last administered on 02/22/19 13:27; Admin Dose 50 MG; Start 02/21/19 at 14:00 Morphine Sulfate (morphine) 2 mg Q4H PRN IV SEVERE PAIN LEVEL 7-10 Last administered on 02/22/19 12:45; Admin Dose 2 MG; Start 02/22/19 at 09:00 BAL GODOY NP Feb 22, 2019 14:09
--- NOTE | 2019-02-22 15:04 | PN ---
Date/Time of Note Date/Time of Note DATE: 02/22/19 TIME: 15:03 Assessment/Plan VTE Prophylaxis Risk score (from Nsg)>0 risk: 3 SCD applied (from Nsg): Yes Pharmacological prophylaxis: heparin Lines/Catheters IV Catheter Type (from Nrsg): Saline Lock Urinary Cath still in place: No Assessment/Plan Hospital Course EXAM: Appears comfortable Tachy, regular Thyromegaly Mild proprtosis CTAB Soft nt nd Testicular edema 59 yo male with hyperthyroidism, hyponatremia, and pancytopenias with FUO/SIRS FUO/SIRS: - Unclear source. Has not resolved with abx. Extensive imaging, WBC scan nega tive previously. I will repeat CT C/A/P. We can consider liver biopsy. I had suspected this is related to perhaps a hematologic malignancy but bone marrow without evidence of this Hyperthyroid: - Off of anti-thyroidal meds per endocrine in anticipation of ablation as outpatient Tachycardia 2/2 hyperthyroid: - Metoprolol titration Cytopenias: - Flow cytometry suggested mild atypia, bone marrow biopsy wnl. LDH very elevated of unclear significance DMII: - Basal/bolus insulin Hyponatremia: - Chronic SIADH - Start salt tabs, FW restrition Result Diagram: 02/21/19 1119 02/22/19 0753 Results 24hrs Laboratory Tests Test 02/21/19 17:26 02/21/19 21:20 02/22/19 07:53 02/22/19 08:10 Bedside Glucose 150 85 110 Erythrocyte 55 H Sedimentation Rate Sodium Level 127 L Potassium Level 3.8 Chloride Level 95 L Carbon Dioxide Level 24 Anion Gap 8 Blood Urea Nitrogen 7 Creatinine 0.60 L Est Glomerular > 60 Filtrat Rate mL/min Glucose Level 105 Calcium Level 8.4 Test 02/22/19 09:22 02/22/19 12:20 Bedside Glucose 144 164 Subjective 24 Hr Interval Summary Free Text/Dictation Still with low grade temp, testicular pain/swelling Exam/Review of Systems Exam Vitals Vital Signs Date Temp Pulse Resp B/P (MAP) Pulse Ox O2 O2 Flow FiO2 Time Delivery Rate 02/22/19 104 12:01 02/22/19 100.0 18 107/64 94 11:42 (78) 02/22/19 Nasal 2.0 08:42 Cannula Intake and Output 02/21/19 02/21/19 02/22/19 1515:00 23:00 07:00 IntakeIntake Total 720 ml 300 ml BalanceBalance 720 ml 300 ml Results Results 24hrs Laboratory Tests Test 02/21/19 17:26 02/21/19 21:20 02/22/19 07:53 02/22/19 08:10 Bedside Glucose 150 85 110 Erythrocyte 55 H Sedimentation Rate Sodium Level 127 L Potassium Level 3.8 Chloride Level 95 L Carbon Dioxide Level 24 Anion Gap 8 Blood Urea Nitrogen 7 Creatinine 0.60 L Est Glomerular > 60 Filtrat Rate mL/min Glucose Level 105 Calcium Level 8.4 Test 02/22/19 09:22 02/22/19 12:20 Bedside Glucose 144 164 Medications Medication Current Medications IV Flush (NS 3 ml) 3 ml PER PROTOCOL IV ; Start 02/06/19 at 15:00 Ondansetron HCl (Zofran Inj) 4 mg Q6H PRN IV NAUSEA/VOMITING Last administered on 02/16/19at 11:54; Admin Dose 4 MG; Start 02/06/19 at 15:00 Acetaminophen (Tylenol Tab) 650 mg Q6H PRN PO .PAIN 1-3 OR TEMP Last administered on 02/21/19at 12:50; Admin Dose 650 MG; Start 02/06/19 at 15:00 Atorvastatin Calcium (Lipitor) 10 mg DAILY@21 PO Last administered on 02/21/19at 21:22; Admin Dose 10 MG; Start 02/06/19 at 21:00 Miscellaneous Information 1 ea NOTE XX ; Start 02/06/19 at 16:00 Glucose (Glutose) 15 gm Q15M PRN PO DECREASED GLUCOSE; Start 02/06/19 at 16:00 Glucose (Glutose) 22.5 gm Q15M PRN PO DECREASED GLUCOSE; Start 02/06/19 at 16:00 Dextrose (D50w Syringe) 25 ml Q15M PRN IV DECREASED GLUCOSE; Start 02/06/19 at 16:00 Dextrose (D50w Syringe) 50 ml Q15M PRN IV DECREASED GLUCOSE; Start 02/06/19 at 16:00 Glucagon (Glucagen) 1 mg Q15M PRN IM DECREASED GLUCOSE; Start 02/06/19 at 16:00 Glucose (Glutose) 15 gm Q15M PRN BUCCAL DECREASED GLUCOSE; Start 02/06/19 at 16:00 Pantoprazole (Protonix Tab) 40 mg BID@0600,1800 PO Last administered on 02/22/19 05:45; Admin Dose 40 MG; Start 02/07/19 at 06:00 Insulin Aspart (Novolog Insulin Pen) 7 unit WITH MEALS SC Last administered on 02/14/19 17:39; Admin Dose 7 UNIT; Start 02/07/19 at 09:30; Status Hold Miscellaneous Information (* Miscellaneous Pharmacy Order) Treatment of Hypoglycemia: 1.BG 51... Per protocol XX ; Start 02/08/19 at 09:00 Dextrose (D50w Syringe) 25 ml Q15M PRN IV .DECREASED GLUCOSE; Start 02/08/19 at 09:00 Dextrose (D50w Syringe) 50 ml Q15M PRN IV .DECREASED GLUCOSE; Start 02/08/19 at 09:00 Methimazole (Tapazole) 30 mg BID PO Last administered on 02/17/19 08:28; Admin Dose 30 MG; Start 02/08/19 at 13:30; Status Hold Insulin Aspart (Novolog Insulin Pen) NOVOLOG *MODERATE* ALGORITHM WITH MEALS BEDTIME SC Last administered on 02/22/19 12:23; Admin Dose 2 UNIT; Start 02/09/19 at 17:35 Heparin Sodium (Porcine) (Heparin (5000 Units/1ml)) 5,000 unit BID SC Last administered on 02/14/19 22:48; Admin Dose 5,000 UNIT; Start 02/11/19 at 09:00; Status Hold Acetaminophen/ Hydrocodone Bitart ([place] (5/325)) 1 tab Q6H PRN PO MODERATE PAIN LEVEL 4-6 Last administered on 02/22/19 04:54; Admin Dose 1 TAB; Start 02/12/19 at 09:00 Senna (Senokot) 2 tab BID PO Last administered on 02/22/19 09:20; Admin Dose 2 TAB; Start 02/16/19 at 21:00 Insulin Glargine (Lantus) 5 units DAILY@0930 SC Last administered on 02/22/19 09:25; Admin Dose 5 UNITS; Start 02/18/19 at 09:30 Bismuth Subsalicylate (Pepto-Bismol) 30 ml QID PO Last administered on 02/22/19 13:28; Admin Dose 30 ML; Start 02/17/19 at 17:30 Sodium Chloride (Nacl) 1 gm TID PO Last administered on 02/22/19 13:27; Admin Dose 1 GM; Start 02/19/19 at 21:00 Metoprolol Tartrate (Lopressor) 50 mg Q8 PO Last administered on 02/22/19 13:27; Admin Dose 50 MG; Start 02/21/19 at 14:00 Morphine Sulfate (morphine) 2 mg Q4H PRN IV SEVERE PAIN LEVEL 7-10 Last administered on 02/22/19at 12:45; Admin Dose 2 MG; Start 02/22/19 at 09:00 KIRK AREVALO MD Feb 22, 2019 15:04
--- NOTE | 2019-02-22 15:05 | CONS ---
Assessment/Plan Assessment/Plan Assessment/Plan (Daily) 59 yo with hyperparathyroidism with was only iron deficient from last admission is seen now for thrombocytopenia ; #Anemia- Hgb - 7.9 -s/p bone marrow bx showing no leukemia or lymphoma or MDS. anemia due to iron def, cont IV iron. -Anemia workup is most consistent with profound iron deficiency given the iron saturation of 6%. Pt is currently on IV iron which we should continue. -anemia workup during last admission showed: -normal SPEP which rules out monoclonal gammopathy -normal Hg electrophoresis which rules out beta thalassemia and Hemoglobin C and E. alpha that not common in [place] but can do alpha that genetic testing as outpt if anemia does not fully correct with iron -vitamin b12 and folate are wnl -haptoglobin and bilirubin normal making hemolysis unlikely #Thrombocytopenia, plt count 94K as of 02/21. -this may be secondary to medication effect. -Methimazole and zosyn can both cause worsening thrombocytopenia. -Although the platelet drop may have preceded when these meds were given -not in DIC as fibrinogen normal -this is not TTP #Hyperthyroidism -management per endocrinology; plan for possible surgery when patient is hemodynamically stable # Scrotal swelling-possible epididymitis - US done- result pending - per PMD - urology on case - ID follows - elevate scrotum all times Patient seen in collaboration with Dr Dela Cruz. Consultation Date/Type/Reason Admit Date/Time Feb 06, 2019 at 14:46 Initial Consult Date 02/18/19 Type of Consult ONCOLOGY Reason for Consultation Anemia and Thrombocytopenia Requesting Provider: KIRK AREVALO MD Date/Time of Note DATE: 02/22/19 TIME: 15:03 24 HR Interval Summary Free Text/Dictation -C/o scrotal pain- US epididymitis- ID/ Urology follows - no bleeding reported from any orifices - at bed side- all Qs answered - dw staff Constitutional: requiring IVF, requiring O2 Detailed Summary Eyes: no complaints ENT: no complaints Respiratory: no complaints Cardiovascular: no complaints Gastrointestinal: no complaints Genitourinary: other (scrotal pain/swelling) Musculoskeletal: other (gegenrelized weakness) Skin: erythema (edema -scrotal areaa) Neurologic: no complaints Endocrine: other (thyroid prroblem) Lymphatic: no complaints Psychological: nl mood/affect Immunologic: no complaints Exam/Review of Systems Exam Vitals Vital Signs Date Temp Pulse Resp B/P (MAP) Pulse Ox O2 O2 Flow FiO2 Time Delivery Rate 02/22/19 104 12:01 02/22/19 100.0 18 107/64 94 11:42 (78) 02/22/19 Nasal 2.0 08:42 Cannula Intake and Output 02/21/19 02/21/19 02/22/19 1515:00 23:00 07:00 IntakeIntake Total 720 ml 300 ml BalanceBalance 720 ml 300 ml Constitutional: alert, well developed, frail Psych: nl mood/affect Head: normocephalic Eyes: nl lids, nl sclera ENMT: nl external ears & nose Neck: non-tender Respiratory: diminished breath sounds (at bases bilaterally) Cardiovascular: nl pulses, other (s1s2) Gastrointestinal: soft, non-tender Genitourinary - Male: other (scrotal edema) Musculoskeletal: muscle weakness Extremities: normal pulses Neurological: nl speech, other (responsive) Lymph: nontender Results Result Diagram: 02/21/19 1119 02/22/19 0753 Results 24hrs Laboratory Tests Test 02/21/19 17:26 02/21/19 21:20 02/22/19 07:53 02/22/19 08:10 Bedside Glucose 150 85 110 Erythrocyte 55 H Sedimentation Rate Sodium Level 127 L Potassium Level 3.8 Chloride Level 95 L Carbon Dioxide Level 24 Anion Gap 8 Blood Urea Nitrogen 7 Creatinine 0.60 L Est Glomerular > 60 Filtrat Rate mL/min Glucose Level 105 Calcium Level 8.4 Test 02/22/19 09:22 02/22/19 12:20 Bedside Glucose 144 164 Medications Medication Current Medications IV Flush (NS 3 ml) 3 ml PER PROTOCOL IV ; Start 02/06/19 at 15:00 Ondansetron HCl (Zofran Inj) 4 mg Q6H PRN IV NAUSEA/VOMITING Last administered on 02/16/19at 11:54; Admin Dose 4 MG; Start 02/06/19 at 15:00 Acetaminophen (Tylenol Tab) 650 mg Q6H PRN PO .PAIN 1-3 OR TEMP Last administ ered on 02/21/19at 12:50; Admin Dose 650 MG; Start 02/06/19 at 15:00 Atorvastatin Calcium (Lipitor) 10 mg DAILY@21 PO Last administered on 02/21/19at 21:22; Admin Dose 10 MG; Start 02/06/19 at 21:00 Miscellaneous Information 1 ea NOTE XX ; Start 02/06/19 at 16:00 Glucose (Glutose) 15 gm Q15M PRN PO DECREASED GLUCOSE; Start 02/06/19 at 16:00 Glucose (Glutose) 22.5 gm Q15M PRN PO DECREASED GLUCOSE; Start 02/06/19 at 16:00 Dextrose (D50w Syringe) 25 ml Q15M PRN IV DECREASED GLUCOSE; Start 02/06/19 at 1 6:00 Dextrose (D50w Syringe) 50 ml Q15M PRN IV DECREASED GLUCOSE; Start 02/06/19 at 16:00 Glucagon (Glucagen) 1 mg Q15M PRN IM DECREASED GLUCOSE; Start 02/06/19 at 16:00 Glucose (Glutose) 15 gm Q15M PRN BUCCAL DECREASED GLUCOSE; Start 02/06/19 at 16:00 Pantoprazole (Protonix Tab) 40 mg BID@0600,1800 PO Last administered on 02/22/19at 05:45; Admin Dose 40 MG; Start 02/07/19 at 06:00 Insulin Aspart (Novolog Insulin Pen) 7 unit WITH MEALS SC Last administered on 02/14/19at 17:39; Admin Dose 7 UNIT; Start 02/07/19 at 09:30; Status Hold Miscellaneous Information (* Miscellaneous Pharmacy Order) Treatment of Hypoglycemia: 1.BG 51... Per protocol XX ; Start 02/08/19 at 09:00 Dextrose (D50w Syringe) 25 ml Q15M PRN IV .DECREASED GLUCOSE; Start 02/08/19 at 09:00 Dextrose (D50w Syringe) 50 ml Q15M PRN IV .DECREASED GLUCOSE; Start 02/08/19 at 09:00 Methimazole (Tapazole) 30 mg BID PO Last administered on 02/17/19at 08:28; Admin Dose 30 MG; Start 02/08/19 at 13:30; Status Hold Insulin Aspart (Novolog Insulin Pen) NOVOLOG *MODERATE* ALGORITHM WITH MEALS BEDTIME SC Last administered on 02/22/19at 12:23; Admin Dose 2 UNIT; Start 02/09/19 at 17:35 Heparin Sodium (Porcine) (Heparin (5000 Units/1ml)) 5,000 unit BID SC Last administered on 02/14/19at 22:48; Admin Dose 5,000 UNIT; Start 02/11/19 at 09:00; Status Hold Acetaminophen/ Hydrocodone Bitart ([place] (5/325)) 1 tab Q6H PRN PO MODERATE PAIN LEVEL 4-6 Last administered on 02/22/19 04:54; Admin Dose 1 TAB; Start 02/12/19 at 09:00 Senna (Senokot) 2 tab BID PO Last administered on 02/22/19 09:20; Admin Dose 2 TAB; Start 02/16/19 at 21:00 Insulin Glargine (Lantus) 5 units DAILY@0930 SC Last administered on 02/22/19 09:25; Admin Dose 5 UNITS; Start 02/18/19 at 09:30 Bismuth Subsalicylate (Pepto-Bismol) 30 ml QID PO Last administered on 02/22/19 13:28; Admin Dose 30 ML; Start 02/17/19 at 17:30 Sodium Chloride (Nacl) 1 gm TID PO Last administered on 02/22/19 13:27; Admin Dose 1 GM; Start 02/19/19 at 21:00 Metoprolol Tartrate (Lopressor) 50 mg Q8 PO Last administered on 02/22/19 13:27; Admin Dose 50 MG; Start 02/21/19 at 14:00 Morphine Sulfate (morphine) 2 mg Q4H PRN IV SEVERE PAIN LEVEL 7-10 Last administered on 02/22/19 12:45; Admin Dose 2 MG; Start 02/22/19 at 09:00 KAMILLE BOYKIN Feb 22, 2019 15:05
[2019-02-22] MEDS ORDERED: IOHEXOL 14.3 MG(I)/ML (ADULT) BTL PO ONE (16:00)
[2019-02-22] MEDS ORDERED: IOHEXOL 300MG/ML 150 ML BTL ONE (22:11)
[2019-02-22] MEDS ORDERED: SOD CHLORIDE 0.9% 100 ML ONE (22:11)
[2019-02-22] MEDS: ATORVASTATIN 10 MG TAB PO SCH (22:55)
[2019-02-23] VITALS (10 sets, daily range): BP systolic 74–133; BP diastolic 55–76; PULSE 88–112; RESP 18–20
[2019-02-23] MEDS ORDERED: SOD CHLORIDE 0.9% 250 ML IV ONE
[2019-02-23] MEDS ORDERED: ALBUMIN HUMAN 25% 100 ML IV ONE (03:00)
[2019-02-23] MEDS: METOPROLOL 50 MG TAB PO SCH ×3 (06:00→22:05)
[2019-02-23] MEDS: HYDROCODONE/APAP (5/325) TAB PO PRN ×2 (06:54→14:08)
[2019-02-23] MEDS: PANTOPRAZOLE (EC) 40 MG TAB PO SCH ×2 (06:54→18:59)
[2019-02-23] MEDS: INSULIN ASPART [NOVOLOG] 3 ML PEN SC SCH ×5 (07:55→21:00)
[2019-02-23] MEDS: BISMUTH SUBSALICYLATE 240 ML BTL PO SCH ×4 (09:00→20:58)
[2019-02-23] MEDS: INSULIN GLARGINE [LANTus] (100 UNITS/ML) SYG SC SCH (09:30)
[2019-02-23] MEDS: SODIUM CHLORIDE 1 GM TAB PO SCH ×3 (10:31→20:58)
[2019-02-23] MEDS: SENNA TAB PO SCH ×2 (10:31→20:58)
--- NOTE | 2019-02-23 11:42 | CONS ---
[facility] HCIS Consult Follow-up Patient Name: Alejandro Whitaker Unit Number: [id number] Date of : 1960 Patient Status: Admitted Inpatient Attending Doctor: Irving Gonzalez MD Edit: BRENDEN RODRIGUEZ M.D. on 02/24/19 @ 04:51 Michael: I discussed the management with PIPE CHIPPER and agree Assessment/Plan Assessment/Plan Hospital Course (Demo Recall) - Recurrent SIRS (fever and tachycardia), r/o sepsis; previous ID w/u and imagi ng were negative; - s/p Vancomycin and Cefepime (12/11/2018-12/14/18) - Mild peno-scrotal edema with possible left epididymitis as suggested on the FARZANA - s/p amoxicillin - Bilateral epididymitis improved on the left and minimally improved on the right compared to the previous study. Marked scrotal wall thickening and edema increased compared to previous study. No evidence of testicular torsion per Te sticular US 02/22/19. - Ramesh mod-large pleural effusions per CT chest 02/22/19 - s/p Mild pyuria - urine cx grew <10K Citrobacter Koseri and <10K C. Albicans; pt is asymptomatic - repeat UA without pyuria, cx was negative - s/p bone marrow biopsy 02/20/19 - showed nl cellular marrow with adequate megakaryopoiesis, reduced marrow hemosiderin, reticulin fibrosis, mild, no granulomas identified, no e/o malignancy, no diagnostic immunophenotypic abl detected - s/p H. 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 Penumo ESBL in sputum cx on 12/15/2018, likely colonizer - Hx EBV exposure - The following is negative: HIV, HIV viral load, procalc <0.10 on 12/12/18, Cryto AG, [place]-smear, Dengue, malaria, resp virus panel, MTB complex, HSV 1&2 by PCR, CMV, WBC scan on 12/18/2018, ESR 70 on 02/13/19 Recommendations: - Monitor off antibiotics - s/p treatment for H. pylori with amoxicillin, clarithromycin and PPI (02/06/2019-02/21/19); s/p Zosyn (02/16/19 --02/20/19 ) - Ordered: Urine for chlamydia/gonorrhea pcr - F/u procalcitonin (in process) Plan was d/w patient, his at bedside, and with Dr. Rodriguez. Thank you Consultation Date/Type/Reason Admit Date/Time Feb 06, 2019 at 14:46 Initial Consult Date 02/18/19 Type of Consult ID Requesting Provider: IRVING GONZALEZ MD Date/Time of Note DATE: 02/23/19 TIME: 11:36 Detailed Summary Eyes: no complaints ENT: no complaints Respiratory: no complaints Cardiovascular: no complaints Gastrointestinal: no complaints Genitourinary: other (testicular swelling and pain. Tenderness with palpation, trouble starting stream d/t pain. ) Musculoskeletal: no complaints Skin: no complaints Neurologic: no complaints Endocrine: no complaints Lymphatic: no complaints Psychological: no complaints Immunologic: no complaints Exam/Review of Systems Exam Vitals Vital Signs Date Temp Pulse Resp B/P (MAP) Pulse Ox O2 O2 Flow FiO2 Time Delivery Rate 02/23/19 98 08:01 02/23/19 Nasal 2.0 08:00 Cannula 02/23/19 98.0 18 133/69 96 07:59 (90) Intake and Output 02/22/19 02/22/19 02/23/19 1414:59 22:59 06:59 IntakeIntake Total 1800 ml 750 ml BalanceBalance 1800 ml 750 ml Allergies Coded Allergies No Known Allergy (Unverified02/06/19) Exam Constitutional: alert, oriented, well developed, other (patient was laying flat in bed but in no distress - he called his daughter for translation via the telephone) Psych: nl mood/affect Head: normocephalic, atraumatic Eyes: nl conjunctiva, nl lids, nl sclera, other (exopthalmus) ENMT: nl external ears & nose, nl nasal mucosa & septum, mucosa pink and moist (no thrush noted) Neck: supple, non-tender Respiratory: clear to auscultation, normal air movement Cardiovascular: regular rate and rhythm, nl pulses Gastrointestinal: soft, non-tender, bowel sounds (normoactive); No distended, No tender Genitourinary - Male: nl penis, other (scrotal swelling appears unchanged from yesteday, no induration, soft - appears softer than yesterday, but tender with palpation. Was not elevated) Musculoskeletal: nl extremities to inspection Extremities: normal pulses; No edema Neurological: DISBURSING OFFICER II-XII intact, nl mental status, nl speech Skin: nl turgor; No rash or lesions Results Result Diagram: 02/23/19 0740 02/23/19 0740 Results 24hrs Laboratory Tests Test 02/22/19 12:20 02/22/19 17:18 02/22/19 23:00 02/22/19 23:20 Bedside Glucose 164 141 54 L 67 L Test 02/22/19 23:42 02/23/19 07:40 02/23/19 08:28 Bedside Glucose 102 92 White Blood Count 4.9 Red Blood Count 3.71 L Hemoglobin 9.1 L Hematocrit 28.7 L Mean Corpuscular 77.4 L Volume Mean Corpuscular 24.5 L Hemoglobin Mean Corpuscular 31.7 L Hemoglobin Concent Red Cell 20.2 H Distribution Width Platelet Count 116 #L Mean Platelet Volume 9.1 Immature 0.800 H Granulocytes % Neutrophils % Segmented 67 Neutrophils % (Manual) Lymphocytes % Lymphocytes % 16 (Manual) Reactive Lymphocytes 1 H % (Manual) Monocytes % Monocytes % (Manual) 15 H Eosinophils % Eosinophils % 1 (Manual) Basophils % Nucleated Red Blood 0.0 Cells % Immature 0.040 H Granulocytes # Neutrophils # Lymphocytes (Manual) 0.7 L Lymphocytes # Reactive Lymphocytes 0.0 # Monocytes # Monocytes # (Manual) 0.7 Eosinophils # Basophils # Nucleated Red Blood Cells # Platelet Estimate DECREASED Giant Platelets 1 H Polychromasia 1+ Hypochromasia 1+ Poikilocytosis 2+ Anisocytosis 1+ Microcytosis 1+ Sodium Level 127 L Potassium Level 4.1 Chloride Level 94 L Carbon Dioxide Level 23 Anion Gap 10 Blood Urea Nitrogen 8 Creatinine 0.58 L Est Glomerular > 60 Filtrat Rate mL/min Glucose Level 76 Calcium Level 8.7 Total Bilirubin 0.4 Direct Bilirubin 0.00 Indirect Bilirubin 0.4 Aspartate Amino 68 H Transf (AST/SGOT) Alanine 24 Aminotransferase (AL T/SGPT) Alkaline Phosphatase 168 H Total Protein 5.8 L Albumin 2.3 L Globulin 3.50 H Albumin/Globulin 0.[address] Abd Pelvis 02/22/19 IMPRESSION: 1. Nonspecific thickening of the wall of the urinary bladder. Evaluation is l imited due to under distension and generalized edema. Recommend correlation with urinalysis to evaluate for potential cystitis. 2. Generalized edema with moderate to large bilateral pleural effusions, small volume ascites and moderate to severe body wall edema and scrotal wall edema. 3. Severe multivessel coronary artery calcification. CT Chest 02/22/19 IMPRESSION: 1. Moderate to large bilateral pleural effusions with significant passive atelectasis involving the posterior lower lobes and mild passive atelectasis involving the posterior upper lobes. Findings are new from 11/27/2018. 2. Anasarca, increased from 11/27/2018. Testicular US 02/22/19 IMPRESSION: Consistent with bilateral epididymitis improved on the left and minimally improved on the right compared to the previous study. Marked scrotal wall thickening and edema increased compared to previous study. No evidence of testicular torsion. Medications Medication Current Medications IV Flush (NS 3 ml) 3 ml PER PROTOCOL IV ; Start 02/06/19 at 15:00 Ondansetron HCl (Zofran Inj) 4 mg Q6H PRN IV NAUSEA/VOMITING Last administered on 02/16/19at 11:54; Admin Dose 4 MG; Start 02/06/19 at 15:00 Acetaminophen (Tylenol Tab) 650 mg Q6H PRN PO .PAIN 1-3 OR TEMP Last administered on 02/21/19at 12:50; Admin Dose 650 MG; Start 02/06/19 at 15:00 Atorvastatin Calcium (Lipitor) 10 mg DAILY@21 PO Last administered on 02/22/19at 22:55; Admin Dose 10 MG; Start 02/06/19 at 21:00 Miscellaneous Information 1 ea NOTE XX ; Start 02/06/19 at 16:00 Glucose (Glutose) 15 gm Q15M PRN PO DECREASED GLUCOSE; Start 02/06/19 at 16:00 Glucose (Glutose) 22.5 gm Q15M PRN PO DECREASED GLUCOSE; Start 02/06/19 at 16:00 Dextrose (D50w Syringe) 25 ml Q15M PRN IV DECREASED GLUCOSE; Start 02/06/19 at 16:00 Dextrose (D50w Syringe) 50 ml Q15M PRN IV DECREASED GLUCOSE; Start 02/06/19 at 16:00 Glucagon (Glucagen) 1 mg Q15M PRN IM DECREASED GLUCOSE; Start 02/06/19 at 16:00 Glucose (Glutose) 15 gm Q15M PRN BUCCAL DECREASED GLUCOSE Last administered on 02/22/19at 23:24; Admin Dose 15 GM; Start 02/06/19 at 16:00 Pantoprazole (Protonix Tab) 40 mg BID@0600,1800 PO Last administered on 02/23/19at 06:54; Admin Dose 40 MG; Start 02/07/19 at 06:00 Insulin Aspart (Novolog Insulin Pen) 7 unit WITH MEALS SC Last administered on 02/14/19at 17:39; Admin Dose 7 UNIT; Start 02/07/19 at 09:30; Status Hold Miscellaneous Information (* Miscellaneous Pharmacy Order) Treatment of Hypo glycemia: 1.BG 51... Per protocol XX ; Start 02/08/19 at 09:00 Dextrose (D50w Syringe) 25 ml Q15M PRN IV .DECREASED GLUCOSE; Start 02/08/19 at 09:00 Dextrose (D50w Syringe) 50 ml Q15M PRN IV .DECREASED GLUCOSE; Start 02/08/19 at 09:00 Methimazole (Tapazole) 30 mg BID PO Last administered on 02/17/19at 08:28; Admin Dose 30 MG; Start 02/08/19 at 13:30; Status Hold Heparin Sodium (Porcine) (Heparin (5000 Units/1ml)) 5,000 unit BID SC Last administered on 02/14/19at 22:48; Admin Dose 5,000 UNIT; Start 02/11/19 at 09:00; Status Hold Acetaminophen/ Hydrocodone Bitart ([place] (5/325)) 1 tab Q6H PRN PO MODERATE PAIN LEVEL 4-6 Last administered on 02/23/19 06:54; Admin Dose 1 TAB; Start 02/12/19 at 09:00 Senna (Senokot) 2 tab BID PO Last administered on 02/23/19 10:31; Admin Dose 2 TAB; Start 02/16/19 at 21:00 Insulin Glargine (Lantus) 5 units DAILY@0930 SC Last administered on 02/22/19 09:25; Admin Dose 5 UNITS; Start 02/18/19 at 09:30 Bismuth Subsalicylate (Pepto-Bismol) 30 ml QID PO Last administered on 02/23/19 09:00; Admin Dose 30 ML; Start 02/17/19 at 17:30 Sodium Chloride (Nacl) 1 gm TID PO Last administered on 02/23/19 10:31; Admin Dose 1 GM; Start 02/19/19 at 21:00 Metoprolol Tartrate (Lopressor) 50 mg Q8 PO Last administered on 02/22/19 22:54; Admin Dose 50 MG; Start 02/21/19 at 14:00 Morphine Sulfate (morphine) 2 mg Q4H PRN IV SEVERE PAIN LEVEL 7-10 Last administered on 02/22/19 18:33; Admin Dose 2 MG; Start 02/22/19 at 09:00 Insulin Aspart (Novolog Insulin Pen) NOVOLOG *MILD* ALGORITHM WITH MEALS BEDTIME SC ; Start 02/23/19 at 11:50 Furosemide (Lasix) 20 mg BID DIURETICS IV ; Start 02/23/19 at 11:00 BAL GODOY NP Feb 23, 2019 11:42
[2019-02-23] MEDS: FUROSEMIDE 20 MG INJ IV SCH ×2 (12:07→17:33)
--- NOTE | 2019-02-23 13:09 | CONS ---
Assessment/Plan Assessment/Plan Assessment/Plan (Daily) 1. Hyponatremia. initial urine Na was high suggesting possible SIADH. Repeat Jenny is low. However, Na is improving with fluid restriction. cont NaCl tablets. repeat urine Na and osmolality. will continue to monitor Na. 2. Hypothyroidism. Continue current medical management. 3. Thrombocytopenia. Patient is status post bone marrow biopsy. Continue to monitor. Follow up results per hematology. 4. Diabetes. Continue current insulin regimen. 5. SIRS. Etiology is unclear. The patient's previous cultures negative, status post antibiotic therapy. Continue to monitor. 6. Arrhythmia: continue medical management. Consultation Date/Type/Reason Admit Date/Time Feb 06, 2019 at 14:46 Initial Consult Date 02/18/19 Requesting Provider: KIRK AREVALO MD Date/Time of Note DATE: 02/23/19 TIME: 13:08 24 HR Interval Summary Free Text/Dictation denies n/v, shortness of breath or urinary issues s/p lasix yesterday d/w rn gen nad cv rrr pulm ctab abd soft, nd,nt +bs ext: no edema Exam/Review of Systems Exam Vitals Vital Signs Date Temp Pulse Resp B/P (MAP) Pulse Ox O2 O2 Flow FiO2 Time Delivery Rate 02/23/19 96 12:01 02/23/19 97.7 18 99/55 (70) 99 11:43 02/23/19 Nasal 2.0 08:00 Cannula Intake and Output 02/22/19 02/22/19 02/23/19 1414:59 22:59 06:59 IntakeIntake Total 1800 ml 750 ml BalanceBalance 1800 ml 750 ml Results Result Diagram: 02/23/19 0740 02/23/19 0740 Results 24hrs Laboratory Tests Test 02/22/19 17:18 02/22/19 23:00 02/22/19 23:20 02/22/19 23:42 Bedside Glucose 141 54 L 67 L 102 Test 02/23/19 07:40 02/23/19 08:28 02/23/19 11:59 White Blood Count 4.9 Red Blood Count 3.71 L Hemoglobin 9.1 L Hematocrit 28.7 L Mean Corpuscular 77.4 L Volume Mean Corpuscular 24.5 L Hemoglobin Mean Corpuscular 31.7 L Hemoglobin Concent Red Cell 20.2 H Distribution Width Platelet Count 116 #L Mean Platelet Volume 9.1 Immature 0.800 H Granulocytes % Neutrophils % Segmented 67 Neutrophils % (Manual) Lymphocytes % Lymphocytes % 16 (Manual) Reactive Lymphocytes 1 H % (Manual) Monocytes % Monocytes % (Manual) 15 H Eosinophils % Eosinophils % 1 (Manual) Basophils % Nucleated Red Blood 0.0 Cells % Immature 0.040 H Granulocytes # Neutrophils # Lymphocytes (Manual) 0.7 L Lymphocytes # Reactive Lymphocytes 0.0 # Monocytes # Monocytes # (Manual) 0.7 Eosinophils # Basophils # Nucleated Red Blood Cells # Platelet Estimate DECREASED Giant Platelets 1 H Polychromasia 1+ Hypochromasia 1+ Poikilocytosis 2+ Anisocytosis 1+ Microcytosis 1+ Sodium Level 127 L Potassium Level 4.1 Chloride Level 94 L Carbon Dioxide Level 23 Anion Gap 10 Blood Urea Nitrogen 8 Creatinine 0.58 L Est Glomerular > 60 Filtrat Rate mL/min Glucose Level 76 Calcium Level 8.7 Total Bilirubin 0.4 Direct Bilirubin 0.00 Indirect Bilirubin 0.4 Aspartate Amino 68 H Transf (AST/SGOT) Alanine 24 Aminotransferase (AL T/SGPT) Alkaline Phosphatase 168 H Total Protein 5.8 L Albumin 2.3 L Globulin 3.50 H Albumin/Globulin 0.65 Ratio Bedside Glucose 92 108 Medications Medication Current Medications IV Flush (NS 3 ml) 3 ml PER PROTOCOL IV ; Start 02/06/19 at 15:00 Ondansetron HCl (Zofran Inj) 4 mg Q6H PRN IV NAUSEA/VOMITING Last administered on 02/16/19at 11:54; Admin Dose 4 MG; Start 02/06/19 at 15:00 Acetaminophen (Tylenol Tab) 650 mg Q6H PRN PO .PAIN 1-3 OR TEMP Last administered on 02/21/19at 12:50; Admin Dose 650 MG; Start 02/06/19 at 15:00 Atorvastatin Calcium (Lipitor) 10 mg DAILY@21 PO Last administered on 02/22/19at 22:55; Admin Dose 10 MG; Start 02/06/19 at 21:00 Miscellaneous Information 1 ea NOTE XX ; Start 02/06/19 at 16:00 Glucose (Glutose) 15 gm Q15M PRN PO DECREASED GLUCOSE; Start 02/06/19 at 16:00 Glucose (Glutose) 22.5 gm Q15M PRN PO DECREASED GLUCOSE; Start 02/06/19 at 16:00 Dextrose (D50w Syringe) 25 ml Q15M PRN IV DECREASED GLUCOSE; Start 02/06/19 at 16:00 Dextrose (D50w Syringe) 50 ml Q15M PRN IV DECREASED GLUCOSE; Start 02/06/19 at 16:00 Glucagon (Glucagen) 1 mg Q15M PRN IM DECREASED GLUCOSE; Start 02/06/19 at 16:00 Glucose (Glutose) 15 gm Q15M PRN BUCCAL DECREASED GLUCOSE Last administered on 02/22/19at 23:24; Admin Dose 15 GM; Start 02/06/19 at 16:00 Pantoprazole (Protonix Tab) 40 mg BID@0600,1800 PO Last administered on 02/23/19 06:54; Admin Dose 40 MG; Start 02/07/19 at 06:00 Insulin Aspart (Novolog Insulin Pen) 7 unit WITH MEALS SC Last administered on 02/14/19at 17:39; Admin Dose 7 UNIT; Start 02/07/19 at 09:30; Status Hold Miscellaneous Information (* Miscellaneous Pharmacy Order) Treatment of Hypoglycemia: 1.BG 51... Per protocol XX ; Start 02/08/19 at 09:00 Dextrose (D50w Syringe) 25 ml Q15M PRN IV .DECREASED GLUCOSE; Start 02/08/19 at 09:00 Dextrose (D50w Syringe) 50 ml Q15M PRN IV .DECREASED GLUCOSE; Start 02/08/19 at 09:00 Methimazole (Tapazole) 30 mg BID PO Last administered on 02/17/19at 08:28; Admin Dose 30 MG; Start 02/08/19 at 13:30; Status Hold Heparin Sodium (Porcine) (Heparin (5000 Units/1ml)) 5,000 unit BID SC Last administered on 02/14/19at 22:48; Admin Dose 5,000 UNIT; Start 02/11/19 at 09:00; Status Hold Acetaminophen/ Hydrocodone Bitart ([place] (5/325)) 1 tab Q6H PRN PO MODERATE PAIN LEVEL 4-6 Last administered on 02/23/19at 06:54; Admin Dose 1 TAB; Start 02/12/19 at 09:00 Senna (Senokot) 2 tab BID PO Last administered on 02/23/19at 10:31; Admin Dose 2 TAB; Start 02/16/19 at 21:00 Insulin Glargine (Lantus) 5 units DAILY@0930 SC Last administered on 02/22/19at 09:25; Admin Dose 5 UNITS; Start 02/18/19 at 09:30 Bismuth Subsalicylate (Pepto-Bismol) 30 ml QID PO Last administered on 02/23/19at 09:00; Admin Dose 30 ML; Start 02/17/19 at 17:30 Sodium Chloride (Nacl) 1 gm TID PO Last administered on 02/23/19at 10:31; Admin Dose 1 GM; Start 02/19/19 at 21:00 Metoprolol Tartrate (Lopressor) 50 mg Q8 PO Last administered on 02/22/19at 22:54; Admin Dose 50 MG; Start 02/21/19 at 14:00 Morphine Sulfate (morphine) 2 mg Q4H PRN IV SEVERE PAIN LEVEL 7-10 Last administered on 02/22/19at 18:33; Admin Dose 2 MG; Start 02/22/19 at 09:00 Insulin Aspart (Novolog Insulin Pen) NOVOLOG *MILD* ALGORITHM WITH MEALS BEDTIME SC ; Start 02/23/19 at 11:50 Furosemide (Lasix) 20 mg BID DIURETICS IV Last administered on 02/23/19at 12:07; Admin Dose 20 MG; Start 02/23/19 at 11:00 Midodrine (Proamatine) 10 mg TID@,,17 PO ; Start 02/23/19 at 13:00 MARY MELARA MD Feb 23, 2019 13:09
--- NOTE | 2019-02-23 14:01 | CONS ---
Assessment/Plan Assessment/Plan Assessment/Plan (Daily) 59 yo with hyperparathyroidism with was only iron deficient from last admission is seen now for thrombocytopenia ; #Anemia- Hgb - 7.9 -s/p bone marrow bx showing no leukemia or lymphoma or MDS. anemia due to iron def, cont IV iron. -Anemia workup is most consistent with profound iron deficiency given the iron saturation of 6%. Pt is currently on IV iron which we should continue. -anemia workup during last admission showed: -normal SPEP which rules out monoclonal gammopathy -normal Hg electrophoresis which rules out beta thalassemia and Hemoglobin C and E. alpha that not common in [place] but can do alpha that genetic testing as outpt if anemia does not fully correct with iron -vitamin b12 and folate are wnl -haptoglobin and bilirubin normal making hemolysis unlikely #Thrombocytopenia, plt count 94K as of 02/21. -this may be secondary to medication effect. -Methimazole and zosyn can both cause worsening thrombocytopenia. -Although the platelet drop may have preceded when these meds were given -not in DIC as fibrinogen normal -this is not TTP #Hyperthyroidism -management per endocrinology # Epididymitis- per US - urology consult appreciated - management per PMD ; Uroon case Patient seen in collaboration with Dr Dela Cruz. Consultation Date/Type/Reason Admit Date/Time Feb 06, 2019 at 14:46 Initial Consult Date 02/18/19 Requesting Provider: KIRK AREVALO MD Date/Time of Note DATE: 02/23/19 TIME: 14:00 24 HR Interval Summary Free Text/Dictation -C/o scrotal pain- US done, showed epididymitis; urology follows - no bleeding reported from any orifices - at bed side- all Qs answered - dw staff Exam/Review of Systems Exam Vitals Vital Signs Date Temp Pulse Resp B/P (MAP) Pulse Ox O2 O2 Flow FiO2 Time Delivery Rate 02/23/19 96 12:01 02/23/19 97.7 18 99/55 (70) 99 11:43 02/23/19 Nasal 2.0 08:00 Cannula Intake and Output 02/22/19 02/22/19 02/23/19 1515:00 23:00 07:00 IntakeIntake Total 2300 ml 250 ml BalanceBalance 2300 ml 250 ml Results Result Diagram: 02/23/19 0740 02/23/19 0740 Results 24hrs Laboratory Tests Test 02/22/19 17:18 02/22/19 23:00 02/22/19 23:20 02/22/19 23:42 Bedside Glucose 141 54 L 67 L 102 Test 02/23/19 07:40 02/23/19 08:28 02/23/19 11:59 White Blood Count 4.9 Red Blood Count 3.71 L Hemoglobin 9.1 L Hematocrit 28.7 L Mean Corpuscular 77.4 L Volume Mean Corpuscular 24.5 L Hemoglobin Mean Corpuscular 31.7 L Hemoglobin Concent Red Cell 20.2 H Distribution Width Platelet Count 116 #L Mean Platelet Volume 9.1 Immature 0.800 H Granulocytes % Neutrophils % Segmented 67 Neutrophils % (Manual) Lymphocytes % Lymphocytes % 16 (Manual) Reactive Lymphocytes 1 H % (Manual) Monocytes % Monocytes % (Manual) 15 H Eosinophils % Eosinophils % 1 (Manual) Basophils % Nucleated Red Blood 0.0 Cells % Immature 0.040 H Granulocytes # Neutrophils # Lymphocytes (Manual) 0.7 L Lymphocytes # Reactive Lymphocytes 0.0 # Monocytes # Monocytes # (Manual) 0.7 Eosinophils # Basophils # Nucleated Red Blood Cells # Platelet Estimate DECREASED Giant Platelets 1 H Polychromasia 1+ Hypochromasia 1+ Poikilocytosis 2+ Anisocytosis 1+ Microcytosis 1+ Sodium Level 127 L Potassium Level 4.1 Chloride Level 94 L Carbon Dioxide Level 23 Anion Gap 10 Blood Urea Nitrogen 8 Creatinine 0.58 L Est Glomerular > 60 Filtrat Rate mL/min Glucose Level 76 Calcium Level 8.7 Total Bilirubin 0.4 Direct Bilirubin 0.00 Indirect Bilirubin 0.4 Aspartate Amino 68 H Transf (AST/SGOT) Alanine 24 Aminotransferase (AL T/SGPT) Alkaline Phosphatase 168 H Total Protein 5.8 L Albumin 2.3 L Globulin 3.50 H Albumin/Globulin 0.65 Ratio Bedside Glucose 92 108 Medications Medication Current Medications IV Flush (NS 3 ml) 3 ml PER PROTOCOL IV ; Start 02/06/19 at 15:00 Ondansetron HCl (Zofran Inj) 4 mg Q6H PRN IV NAUSEA/VOMITING Last administered on 02/16/19at 11:54; Admin Dose 4 MG; Start 02/06/19 at 15:00 Acetaminophen (Tylenol Tab) 650 mg Q6H PRN PO .PAIN 1-3 OR TEMP Last administered on 02/21/19at 12:50; Admin Dose 650 MG; Start 02/06/19 at 15:00 Atorvastatin Calcium (Lipitor) 10 mg DAILY@21 PO Last administered on 02/22/19at 22:55; Admin Dose 10 MG; Start 02/06/19 at 21:00 Miscellaneous Information 1 ea NOTE XX ; Start 02/06/19 at 16:00 Glucose (Glutose) 15 gm Q15M PRN PO DECREASED GLUCOSE; Start 02/06/19 at 16:00 Glucose (Glutose) 22.5 gm Q15M PRN PO DECREASED GLUCOSE; Start 02/06/19 at 16:00 Dextrose (D50w Syringe) 25 ml Q15M PRN IV DECREASED GLUCOSE; Start 02/06/19 at 16:00 Dextrose (D50w Syringe) 50 ml Q15M PRN IV DECREASED GLUCOSE; Start 02/06/19 at 16:00 Glucagon (Glucagen) 1 mg Q15M PRN IM DECREASED GLUCOSE; Start 02/06/19 at 16:00 Glucose (Glutose) 15 gm Q15M PRN BUCCAL DECREASED GLUCOSE Last administered on 02/22/19at 23:24; Admin Dose 15 GM; Start 02/06/19 at 16:00 Pantoprazole (Protonix Tab) 40 mg BID@0600,1800 PO Last administered on 02/23/19at 06:54; Admin Dose 40 MG; Start 02/07/19 at 06:00 Insulin Aspart (Novolog Insulin Pen) 7 unit WITH MEALS SC Last administered on 02/14/19at 17:39; Admin Dose 7 UNIT; Start 02/07/19 at 09:30; Status Hold Miscellaneous Information (* Miscellaneous Pharmacy Order) Treatment of Hypoglycemia: 1.BG 51... Per protocol XX ; Start 02/08/19 at 09:00 Dextrose (D50w Syringe) 25 ml Q15M PRN IV .DECREASED GLUCOSE; Start 02/08/19 at 09:00 Dextrose (D50w Syringe) 50 ml Q15M PRN IV .DECREASED GLUCOSE; Start 02/08/19 at 09:00 Methimazole (Tapazole) 30 mg BID PO Last administered on 02/17/19at 08:28; Admin Dose 30 MG; Start 02/08/19 at 13:30; Status Hold Heparin Sodium (Porcine) (Heparin (5000 Units/1ml)) 5,000 unit BID SC Last administered on 02/14/19 22:48; Admin Dose 5,000 UNIT; Start 02/11/19 at 09:00; Status Hold Acetaminophen/ Hydrocodone Bitart ([place] (5/325)) 1 tab Q6H PRN PO MODERATE PAIN LEVEL 4-6 Last administered on 02/23/19 06:54; Admin Dose 1 TAB; Start 02/12/19 at 09:00 Senna (Senokot) 2 tab BID PO Last administered on 02/23/19 10:31; Admin Dose 2 TAB; Start 02/16/19 at 21:00 Insulin Glargine (Lantus) 5 units DAILY@0930 SC Last administered on 02/22/19 09:25; Admin Dose 5 UNITS; Start 02/18/19 at 09:30 Bismuth Subsalicylate (Pepto-Bismol) 30 ml QID PO Last administered on 02/23/19 09:00; Admin Dose 30 ML; Start 02/17/19 at 17:30 Sodium Chloride (Nacl) 1 gm TID PO Last administered on 02/23/19 10:31; Admin Dose 1 GM; Start 02/19/19 at 21:00 Metoprolol Tartrate (Lopressor) 50 mg Q8 PO Last administered on 02/22/19 22:54; Admin Dose 50 MG; Start 02/21/19 at 14:00 Morphine Sulfate (morphine) 2 mg Q4H PRN IV SEVERE PAIN LEVEL 7-10 Last administered on 02/22/19 18:33; Admin Dose 2 MG; Start 02/22/19 at 09:00 Insulin Aspart (Novolog Insulin Pen) NOVOLOG *MILD* ALGORITHM WITH MEALS BEDTIM E SC ; Start 02/23/19 at 11:50 Furosemide (Lasix) 20 mg BID DIURETICS IV Last administered on 02/23/19 12:07; Admin Dose 20 MG; Start 02/23/19 at 11:00 Midodrine (Proamatine) 10 mg TID@,13,17 PO ; Start 02/23/19 at 13:00 KAMILLE BOYKIN Feb 23, 2019 14:01
[2019-02-23] MEDS: MIDODRINE 5 MG TAB PO SCH ×2 (14:07→17:33)
--- NOTE | 2019-02-23 15:22 | CONS ---
Assessment/Plan Assessment/Plan Hospital Course (Demo Recall) Hyperthyroidism -methimazole is currently on hold pending POOLE uptake scan Type 2 DM -hypoglycemia around bedtime after standing novolog and getting 2 extra units of novolog for hyperglycemia coverage. -will adjust moderate dose novolog correction scale to mild dose with coverage starting at FS above 181 -decrease Novolog to 4 units TIDAC -continue Lantus 5 units daily -check FS AC and HS -will monitor Consultation Date/Type/Reason Admit Date/Time Feb 06, 2019 at 14:46 Initial Consult Date 02/18/19 Requesting Provider: KIRK AREVALO MD Date/Time of Note DATE: 02/23/19 TIME: 15:19 24 HR Interval Summary Free Text/Dictation Patient seen and examined at bedside. He still has scrotal swelling and pain. CT A/P showed moderate scrotal swelling and is started on lasix by primary team. FS reviewed, hypoglycemia around bedtime after standing novolog and getting 2 extra units of novolog for hyperglycemia coverage. Exam/Review of Systems Exam Vitals Vital Signs Date Temp Pulse Resp B/P (MAP) Pulse Ox O2 O2 Flow FiO2 Time Delivery Rate 02/23/19 96 12:01 02/23/19 97.7 18 99/55 (70) 99 11:43 02/23/19 Nasal 2.0 08:00 Cannula Intake and Output 02/22/19 02/22/19 02/23/19 1515:00 23:00 07:00 IntakeIntake Total 2300 ml 250 ml BalanceBalance 2300 ml 250 ml Exam General: In mild distress due to pain. Skin appropriate for ethnicity Eye: Extraocular movements are intact, Normal conjunctiva. Mild exothalmos HENT: Normocephalic, atraumatic. Respiratory: Respirations are non-labored, Breath sounds are equal, Symmetrical chest wall expansion. Cardiovascular: S1, S2. No murmur. No LE edema Gastrointestinal: Soft, Non-tender, Non-distended, Normal bowel sounds. Genitourinary: B/l scrotal swelling, no erythema Integumentary: Warm to touch. Neurologic: Alert, Oriented. No hand tremor Cognition and Speech: Speech clear and coherent, Functional cognition intact. Psychiatric: Cooperative, Appropriate mood & affect. Results Result Diagram: 02/23/19 0740 02/23/19 0740 Results 24hrs Laboratory Tests Test 02/22/19 17:18 02/22/19 23:00 02/22/19 23:20 02/22/19 23:42 Bedside Glucose 141 54 L 67 L 102 Test 02/23/19 07:40 02/23/19 08:28 02/23/19 11:59 White Blood Count 4.9 Red Blood Count 3.71 L Hemoglobin 9.1 L Hematocrit 28.7 L Mean Corpuscular 77.4 L Volume Mean Corpuscular 24.5 L Hemoglobin Mean Corpuscular 31.7 L Hemoglobin Concent Red Cell 20.2 H Distribution Width Platelet Count 116 #L Mean Platelet Volume 9.1 Immature 0.800 H Granulocytes % Neutrophils % Segmented 67 Neutrophils % (Manual) Lymphocytes % Lymphocytes % 16 (Manual) Reactive Lymphocytes 1 H % (Manual) Monocytes % Monocytes % (Manual) 15 H Eosinophils % Eosinophils % 1 (Manual) Basophils % Nucleated Red Blood 0.0 Cells % Immature 0.040 H Granulocytes # Neutrophils # Lymphocytes (Manual) 0.7 L Lymphocytes # Reactive Lymphocytes 0.0 # Monocytes # Monocytes # (Manual) 0.7 Eosinophils # Basophils # Nucleated Red Blood Cells # Platelet Estimate DECREASED Giant Platelets 1 H Polychromasia 1+ Hypochromasia 1+ Poikilocytosis 2+ Anisocytosis 1+ Microcytosis 1+ Sodium Level 127 L Potassium Level 4.1 Chloride Level 94 L Carbon Dioxide Level 23 Anion Gap 10 Blood Urea Nitrogen 8 Creatinine 0.58 L Est Glomerular > 60 Filtrat Rate mL/min Glucose Level 76 Calcium Level 8.7 Total Bilirubin 0.4 Direct Bilirubin 0.00 Indirect Bilirubin 0.4 Aspartate Amino 68 H Transf (AST/SGOT) Alanine 24 Aminotransferase (AL T/SGPT) Alkaline Phosphatase 168 H Total Protein 5.8 L Albumin 2.3 L Globulin 3.50 H Albumin/Globulin 0.65 Ratio Bedside Glucose 92 108 Medications Medication Current Medications IV Flush (NS 3 ml) 3 ml PER PROTOCOL IV ; Start 02/06/19 at 15:00 Ondansetron HCl (Zofran Inj) 4 mg Q6H PRN IV NAUSEA/VOMITING Last administered on 02/16/19at 11:54; Admin Dose 4 MG; Start 02/06/19 at 15:00 Acetaminophen (Tylenol Tab) 650 mg Q6H PRN PO .PAIN 1-3 OR TEMP Last administered on 02/21/19at 12:50; Admin Dose 650 MG; Start 02/06/19 at 15:00 Atorvastatin Calcium (Lipitor) 10 mg DAILY@21 PO Last administered on 02/22/19at 22:55; Admin Dose 10 MG; Start 02/06/19 at 21:00 Miscellaneous Information 1 ea NOTE XX ; Start 02/06/19 at 16:00 Glucose (Glutose) 15 gm Q15M PRN PO DECREASED GLUCOSE; Start 02/06/19 at 16:00 Glucose (Glutose) 22.5 gm Q15M PRN PO DECREASED GLUCOSE; Start 02/06/19 at 16:00 Dextrose (D50w Syringe) 25 ml Q15M PRN IV DECREASED GLUCOSE; Start 02/06/19 at 16:00 Dextrose (D50w Syringe) 50 ml Q15M PRN IV DECREASED GLUCOSE; Start 02/06/19 at 16:00 Glucagon (Glucagen) 1 mg Q15M PRN IM DECREASED GLUCOSE; Start 02/06/19 at 16:00 Glucose (Glutose) 15 gm Q15M PRN BUCCAL DECREASED GLUCOSE Last administered on 02/22/19at 23:24; Admin Dose 15 GM; Start 02/06/19 at 16:00 Pantoprazole (Protonix Tab) 40 mg BID@0600,1800 PO Last administered on 02/23/19at 06:54; Admin Dose 40 MG; Start 02/07/19 at 06:00 Insulin Aspart (Novolog Insulin Pen) 7 unit WITH MEALS SC Last administered on 02/14/19at 17:39; Admin Dose 7 UNIT; Start 02/07/19 at 09:30; Status Hold Miscellaneous Information (* Miscellaneous Pharmacy Order) Treatment of Hypoglycemia: 1.BG 51... Per protocol XX ; Start 02/08/19 at 09:00 Dextrose (D50w Syringe) 25 ml Q15M PRN IV .DECREASED GLUCOSE; Start 02/08/19 at 09:00 Dextrose (D50w Syringe) 50 ml Q15M PRN IV .DECREASED GLUCOSE; Start 02/08/19 at 09:00 Methimazole (Tapazole) 30 mg BID PO Last administered on 02/17/19at 08:28; Admin Dose 30 MG; Start 02/08/19 at 13:30; Status Hold Heparin Sodium (Porcine) (Heparin (5000 Units/1ml)) 5,000 unit BID SC Last administered on 02/14/19 22:48; Admin Dose 5,000 UNIT; Start 02/11/19 at 09:00; Status Hold Acetaminophen/ Hydrocodone Bitart ([place] (5/325)) 1 tab Q6H PRN PO MODERATE PAIN LEVEL 4-6 Last administered on 02/23/19 14:08; Admin Dose 1 TAB; Start 02/12/19 at 09:00 Senna (Senokot) 2 tab BID PO Last administered on 02/23/19 10:31; Admin Dose 2 TAB; Start 02/16/19 at 21:00 Insulin Glargine (Lantus) 5 units DAILY@0930 SC Last administered on 02/22/19 09:25; Admin Dose 5 UNITS; Start 02/18/19 at 09:30 Bismuth Subsalicylate (Pepto-Bismol) 30 ml QID PO Last administered on 13:00; Admin Dose 30 ML; Start 02/17/19 at 17:30 Sodium Chloride (Nacl) 1 gm TID PO Last administered on 02/23/19 14:06; Admin Dose 1 GM; Start 02/19/19 at 21:00 Metoprolol Tartrate (Lopressor) 50 mg Q8 PO Last administered on 02/22/19 22:54; Admin Dose 50 MG; Start 02/21/19 at 14:00 Morphine Sulfate (morphine) 2 mg Q4H PRN IV SEVERE PAIN LEVEL 7-10 Last administered on 02/22/19 18:33; Admin Dose 2 MG; Start 02/22/19 at 09:00 Insulin Aspart (Novolog Insulin Pen) NOVOLOG *MILD* ALGORITHM WITH MEALS BEDTIME SC ; Start 02/23/19 at 11:50 Furosemide (Lasix) 20 mg BID DIURETICS IV Last administered on 02/23/19 12:07; Admin Dose 20 MG; Start 02/23/19 at 11:00 Midodrine (Proamatine) 10 mg TID@,,17 PO Last administered on 02/23/19 14:07; Admin Dose 10 MG; Start 02/23/19 at 13:00 YECENIA MANTILLA MD Feb 23, 2019 15:22
--- NOTE | 2019-02-23 17:39 | PN ---
Date/Time of Note Date/Time of Note DATE: 02/23/19 TIME: 17:36 Assessment/Plan VTE Prophylaxis Risk score (from Nsg)>0 risk: 5 SCD applied (from Nsg): Yes Pharmacological prophylaxis: heparin Lines/Catheters IV Catheter Type (from Nrsg): Saline Lock Urinary Cath still in place: No Assessment/Plan Hospital Course EXAM: Appears comfortable Tachy, regular Thyromegaly Mild proprtosis CTAB Soft nt nd Testicular edema 59 yo male with hyperthyroidism, hyponatremia, and pancytopenias with FUO/SIRS Fluid overload: - imaging shows fluid overload. Start lasix 20 IV BID. Should help with scrotal edema/pain as well FUO/SIRS: - Unclear source. Has not resolved with abx. Extensive imaging negative for malignancy or infection. Bone marrow biopsy negative. WBC scan negative previously. Quite possible we are missing an underlying diagnosis here, but hard to think of what else to pursue Hyperthyroid: - Off of anti-thyroidal meds per endocrine in anticipation of ablation as outpat ient Tachycardia 2/2 hyperthyroid: - Metoprolol titration Cytopenias: - Flow cytometry suggested mild atypia, bone marrow biopsy wnl. LDH very elevated of unclear significance DMII: - Basal/bolus insulin Hyponatremia: - Chronic SIADH - Started on salt tabs, FW restrition H Pylori infection: - 3x therapy per ID Discharge plan: To home. Will require a few days of diuresis prior to discharge. Has thyroid ablation scheduled as an outpatinet Result Diagram: 02/23/19 0740 02/23/19 0740 Results 24hrs Laboratory Tests Test 02/22/19 23:00 02/22/19 23:20 02/22/19 23:42 02/23/19 07:40 Bedside Glucose 54 L 67 L 102 White Blood Count 4.9 Red Blood Count 3.71 L Hemoglobin 9.1 L Hematocrit 28.7 L Mean Corpuscular 77.4 L Volume Mean Corpuscular 24.5 L Hemoglobin Mean Corpuscular 31.7 L Hemoglobin Concent Red Cell 20.2 H Distribution Width Platelet Count 116 #L Mean Platelet Volume 9.1 Immature 0.800 H Granulocytes % Neutrophils % Segmented 67 Neutrophils % (Manual) Lymphocytes % Lymphocytes % 16 (Manual) Reactive Lymphocytes 1 H % (Manual) Monocytes % Monocytes % (Manual) 15 H Eosinophils % Eosinophils % 1 (Manual) Basophils % Nucleated Red Blood 0.0 Cells % Immature 0.040 H Granulocytes # Neutrophils # Lymphocytes (Manual) 0.7 L Lymphocytes # Reactive Lymphocytes 0.0 # Monocytes # Monocytes # (Manual) 0.7 Eosinophils # Basophils # Nucleated Red Blood Cells # Platelet Estimate DECREASED Giant Platelets 1 H Polychromasia 1+ Hypochromasia 1+ Poikilocytosis 2+ Anisocytosis 1+ Microcytosis 1+ Sodium Level 127 L Potassium Level 4.1 Chloride Level 94 L Carbon Dioxide Level 23 Anion Gap 10 Blood Urea Nitrogen 8 Creatinine 0.58 L Est Glomerular > 60 Filtrat Rate mL/min Glucose Level 76 Calcium Level 8.7 Total Bilirubin 0.4 Direct Bilirubin 0.00 Indirect Bilirubin 0.4 Aspartate Amino 68 H Transf (AST/SGOT) Alanine 24 Aminotransferase (AL T/SGPT) Alkaline Phosphatase 168 H Total Protein 5.8 L Albumin 2.3 L Globulin 3.50 H Albumin/Globulin 0.65 Ratio Test 02/23/19 08:28 02/23/19 11:59 Bedside Glucose 92 108 Subjective 24 Hr Interval Summary Free Text/Dictation Fevers resolved now Feels "weak" Still with scrotal edema and pain Exam/Review of Systems Exam Vitals Vital Signs Date Temp Pulse Resp B/P (MAP) Pulse Ox O2 O2 Flow FiO2 Time Delivery Rate 02/23/19 112 16:01 02/23/19 98.0 18 116/70 100 15:33 (85) 02/23/19 Nasal 2.0 08:00 Cannula Intake and Output 02/22/19 02/22/19 02/23/19 1515:00 23:00 07:00 IntakeIntake Total 2300 ml 250 ml BalanceBalance 2300 ml 250 ml Results Results 24hrs Laboratory Tests Test 02/22/19 23:00 02/22/19 23:20 02/22/19 23:42 02/23/19 07:40 Bedside Glucose 54 L 67 L 102 White Blood Count 4.9 Red Blood Count 3.71 L Hemoglobin 9.1 L Hematocrit 28.7 L Mean Corpuscular 77.4 L Volume Mean Corpuscular 24.5 L Hemoglobin Mean Corpuscular 31.7 L Hemoglobin Concent Red Cell 20.2 H Distribution Width Platelet Count 116 #L Mean Platelet Volume 9.1 Immature 0.800 H Granulocytes % Neutrophils % Segmented 67 Neutrophils % (Manual) Lymphocytes % Lymphocytes % 16 (Manual) Reactive Lymphocytes 1 H % (Manual) Monocytes % Monocytes % (Manual) 15 H Eosinophils % Eosinophils % 1 (Manual) Basophils % Nucleated Red Blood 0.0 Cells % Immature 0.040 H Granulocytes # Neutrophils # Lymphocytes (Manual) 0.7 L Lymphocytes # Reactive Lymphocytes 0.0 # Monocytes # Monocytes # (Manual) 0.7 Eosinophils # Basophils # Nucleated Red Blood Cells # Platelet Estimate DECREASED Giant Platelets 1 H Polychromasia 1+ Hypochromasia 1+ Poikilocytosis 2+ Anisocytosis 1+ Microcytosis 1+ Sodium Level 127 L Potassium Level 4.1 Chloride Level 94 L Carbon Dioxide Level 23 Anion Gap 10 Blood Urea Nitrogen 8 Creatinine 0.58 L Est Glomerular > 60 Filtrat Rate mL/min Glucose Level 76 Calcium Level 8.7 Total Bilirubin 0.4 Direct Bilirubin 0.00 Indirect Bilirubin 0.4 Aspartate Amino 68 H Transf (AST/SGOT) Alanine 24 Aminotransferase (AL T/SGPT) Alkaline Phosphatase 168 H Total Protein 5.8 L Albumin 2.3 L Globulin 3.50 H Albumin/Globulin 0.65 Ratio Test 02/23/19 08:28 02/23/19 11:59 Bedside Glucose 92 108 Medications Medication Current Medications IV Flush (NS 3 ml) 3 ml PER PROTOCOL IV ; Start 02/06/19 at 15:00 Ondansetron HCl (Zofran Inj) 4 mg Q6H PRN IV NAUSEA/VOMITING Last administered on 02/16/19at 11:54; Admin Dose 4 MG; Start 02/06/19 at 15:00 Acetaminophen (Tylenol Tab) 650 mg Q6H PRN PO .PAIN 1-3 OR TEMP Last administered on 02/21/19at 12:50; Admin Dose 650 MG; Start 02/06/19 at 15:00 Atorvastatin Calcium (Lipitor) 10 mg DAILY@21 PO Last administered on 02/22/19at 22:55; Admin Dose 10 MG; Start 02/06/19 at 21:00 Miscellaneous Information 1 ea NOTE XX ; Start 02/06/19 at 16:00 Glucose (Glutose) 15 gm Q15M PRN PO DECREASED GLUCOSE; Start 02/06/19 at 16:00 Glucose (Glutose) 22.5 gm Q15M PRN PO DECREASED GLUCOSE; Start 02/06/19 at 16:00 Dextrose (D50w Syringe) 25 ml Q15M PRN IV DECREASED GLUCOSE; Start 02/06/19 at 16:00 Dextrose (D50w Syringe) 50 ml Q15M PRN IV DECREASED GLUCOSE; Start 02/06/19 at 16:00 Glucagon (Glucagen) 1 mg Q15M PRN IM DECREASED GLUCOSE; Start 02/06/19 at 16:00 Glucose (Glutose) 15 gm Q15M PRN BUCCAL DECREASED GLUCOSE Last administered on 02/22/19at 23:24; Admin Dose 15 GM; Start 02/06/19 at 16:00 Pantoprazole (Protonix Tab) 40 mg BID@0600,1800 PO Last administered on 02/23/19at 06:54; Admin Dose 40 MG; Start 02/07/19 at 06:00 Miscellaneous Information (* Miscellaneous Pharmacy Order) Treatment of Hypoglycemia: 1.BG 51... Per protocol XX ; Start 02/08/19 at 09:00 Dextrose (D50w Syringe) 25 ml Q15M PRN IV .DECREASED GLUCOSE; Start 02/08/19 at 09:00 Dextrose (D50w Syringe) 50 ml Q15M PRN IV .DECREASED GLUCOSE; Start 02/08/19 at 09:00 Methimazole (Tapazole) 30 mg BID PO Last administered on 02/17/19at 08:28; Admin Dose 30 MG; Start 02/08/19 at 13:30; Status Hold Heparin Sodium (Porcine) (Heparin (5000 Units/1ml)) 5,000 unit BID SC Last administered on 02/14/19at 22:48; Admin Dose 5,000 UNIT; Start 02/11/19 at 09:00; Status Hold Acetaminophen/ Hydrocodone Bitart ([place] (5/325)) 1 tab Q6H PRN PO MODERATE PAIN LEVEL 4-6 Last administered on 02/23/19at 14:08; Admin Dose 1 TAB; Start 02/12/19 at 09:00 Senna (Senokot) 2 tab BID PO Last administered on 02/23/19at 10:31; Admin Dose 2 TAB; Start 02/16/19 at 21:00 Insulin Glargine (Lantus) 5 units DAILY@0930 SC Last administered on 02/22/19at 09:25; Admin Dose 5 UNITS; Start 02/18/19 at 09:30 Bismuth Subsalicylate (Pepto-Bismol) 30 ml QID PO Last administered on 02/23/19at 13:00; Admin Dose 30 ML; Start 02/17/19 at 17:30 Sodium Chloride (Nacl) 1 gm TID PO Last administered on 02/23/19at 14:06; Admin Dose 1 GM; Start 02/19/19 at 21:00 Metoprolol Tartrate (Lopressor) 50 mg Q8 PO Last administered on 02/22/19at 22:54; Admin Dose 50 MG; Start 02/21/19 at 14:00 Morphine Sulfate (morphine) 2 mg Q4H PRN IV SEVERE PAIN LEVEL 7-10 Last administered on 02/22/19at 18:33; Admin Dose 2 MG; Start 02/22/19 at 09:00 Insulin Aspart (Novolog Insulin Pen) NOVOLOG *MILD* ALGORITHM WITH MEALS BEDTIME SC ; Start 02/23/19 at 11:50 Furosemide (Lasix) 20 mg BID DIURETICS IV Last administered on 02/23/19at 17:33; Admin Dose 20 MG; Start 02/23/19 at 11:00 Midodrine (Proamatine) 10 mg TID@09,13,17 PO Last administered on 02/23/19at 17:33; Admin Dose 10 MG; Start 02/23/19 at 13:00 Insulin Aspart (Novolog Insulin Pen) 4 unit WITH MEALS SC ; Start 02/23/19 at 17:55 KIRK AREVALO MD Feb 23, 2019 17:39
[2019-02-23] MEDS: ATORVASTATIN 10 MG TAB PO SCH (20:58)
[2019-02-24] VITALS (10 sets, daily range): BP systolic 92–141; BP diastolic 51–75; PULSE 66–102; RESP 19–20
[2019-02-24] MEDS: FUROSEMIDE 20 MG INJ IV SCH ×2 (05:24→17:47)
[2019-02-24] MEDS: METOPROLOL 50 MG TAB PO SCH ×3 (05:24→22:00)
[2019-02-24] MEDS: PANTOPRAZOLE (EC) 40 MG TAB PO SCH ×2 (05:24→17:49)
[2019-02-24] MEDS: INSULIN ASPART [NOVOLOG] 3 ML PEN SC SCH ×7 (07:55→20:48)
[2019-02-24] MEDS: SODIUM CHLORIDE 1 GM TAB PO SCH ×3 (08:51→20:42)
[2019-02-24] MEDS: SENNA TAB PO SCH ×2 (08:51→20:43)
[2019-02-24] MEDS: MIDODRINE 5 MG TAB PO SCH ×3 (08:52→17:47)
[2019-02-24] MEDS: BISMUTH SUBSALICYLATE 240 ML BTL PO SCH ×4 (08:53→20:43)
[2019-02-24] MEDS: INSULIN GLARGINE [LANTus] (100 UNITS/ML) SYG SC SCH (08:58)
--- NOTE | 2019-02-24 09:34 | PN ---
DATE: 02/24/2019 SUBJECTIVE: The patient remains ill, complaining about scrotal pain. No other events noted. OBJECTIVE: VITAL SIGNS: Blood pressure is 118/61, respirations 20, pulse 101, temperature 97.4. HEENT: Head is normocephalic. NECK: Supple. HEART: Regular rate. LUNGS: Show diminished breath sounds at the base. ABDOMEN: Soft, nontender to palpation without rebound or guarding. EXTREMITIES: Negative for clubbing, cyanosis, no edema. DERMATOLOGIC: No rashes. MUSCULOSKELETAL: No joint effusion. NEUROLOGIC: No change in exam. MEDICATIONS: Reviewed. LABORATORY DATA: Reviewed. ASSESSMENT AND PLAN: 1. Hypernatremia, etiology is multifactorial. The patient's urine studies have been reviewed, shows mixed picture, possible underlying syndrome of inappropriate antidiuretic hormone. Questionable vol ume depletion. The patient's sodium levels have been stable with fluid restriction and salt tablets. We will continue to monitor sodium levels closely. Continue to encourage high osmolar diet. 2. Hypothyroidism. Continue medical management. 3. Thrombocytopenia. The patient is status post pulmonary biopsy. Continue to monitor. Follow up with hematology. 4. Diabetes. Continue current insulin regimen. 5. Systemic inflammatory response syndrome. Continue current medical management. The patient is st atus post antibiotics. 6. Arrhythmia. Continue to monitor. Dictated By: DIANNA SAWYER DO NR/NTS Conf#: [id number] DID#: [id number] CC: PURVI QUIGLEY MD; ANA GARCIA MD; KIRK AREVALO MD;*EndCC*
--- NOTE | 2019-02-24 14:12 | CONS ---
Assessment/Plan Assessment/Plan Hospital Course (Demo Recall) 59 yo with hyperparathyroidism whom I saw during the last admission and was only found to be iron deficient. anemia w/u otherwise was negative we are asked again to see him for anemia and thrombocytopenia #Anemia -Anemia workup is most consistent with profound iron deficiency given the iron saturation of 6%. s/p UV iron today hgb is >9 -past anemia workup during last admission showed: -normal SPEP which rules out monoclonal gammopathy -normal Hg electrophoresis which rules out beta thalassemia and Hemoglobin C and E. allpha thal not common in [place] but can do alpha thal genetic testing as outpt if anemia does not fully correct with iron -vitamin b12 and folate are wnl -haptoglobin and bilirubin normal making hemolysis unlikely -s/p bone marrow bx showing no leukemia or lymphoma or MDS. anemia due to iron def, cont IV iron. #Thrombocytopenia, plt count increasing today 116K -this may be secondary to medication effect. Methimazole and zosyn can both cause worsening thrombocytopenia. Although the platelet drop may have preceded when these meds were given -not in DIC as fibrinogen normal -this is not TTP #Hyperthyroidism -management per endocrinology at this point it appears to be a multifactorial anemia in part due to iron def as well as underlying hyperparathyroidism. his counts are improving, will sign off. please call with questions we will arrange for f/u in the outpt setting once he is discharged Consultation Date/Type/Reason Admit Date/Time Feb 06, 2019 at 14:46 Initial Consult Date 02/18/19 Requesting Provider: KIRK AREVALO MD Date/Time of Note DATE: 02/24/19 TIME: 14:10 24 HR Interval Summary Free Text/Dictation pt resting comfortably Exam/Review of Systems Exam Vitals Vital Signs Date Temp Pulse Resp B/P (MAP) Pulse Ox O2 O2 Flow FiO2 Time Delivery Rate 02/24/19 91 12:01 02/24/19 99.8 20 115/69 93 Nasal 3.0 11:18 (84) Cannula Intake and Output 02/23/19 02/23/19 02/24/19 1515:00 23:00 07:00 IntakeIntake Total 700 ml 800 ml BalanceBalance 700 ml 800 ml Constitutional: frail Psych: no complaints, nl mood/affect Head: normocephalic, atraumatic Respiratory: normal air movement Musculoskeletal: nl extremities to inspection Results Result Diagram: 02/23/19 0740 02/23/19 0740 Results 24hrs Laboratory Tests Test 02/23/19 17:35 02/23/19 20:56 02/24/19 06:00 02/24/19 08:01 Bedside Glucose 133 111 117 Urine Osmolality 336 Urine Random 91 H Sodium Test 02/24/19 11:59 02/24/19 12:58 Bedside Glucose 132 Lab Scanned Report REFERENCE LAB Medications Medication Current Medications IV Flush (NS 3 ml) 3 ml PER PROTOCOL IV ; Start 02/06/19 at 15:00 Ondansetron HCl (Zofran Inj) 4 mg Q6H PRN IV NAUSEA/VOMITING Last administered on 02/16/19at 11:54; Admin Dose 4 MG; Start 02/06/19 at 15:00 Acetaminophen (Tylenol Tab) 650 mg Q6H PRN PO .PAIN 1-3 OR TEMP Last administered on 02/21/19at 12:50; Admin Dose 650 MG; Start 02/06/19 at 15:00 Atorvastatin Calcium (Lipitor) 10 mg DAILY@21 PO Last administered on 02/23/19at 20:58; Admin Dose 10 MG; Start 02/06/19 at 21:00 Miscellaneous Information 1 ea NOTE XX ; Start 02/06/19 at 16:00 Glucose (Glutose) 15 gm Q15M PRN PO DECREASED GLUCOSE; Start 02/06/19 at 16:00 Glucose (Glutose) 22.5 gm Q15M PRN PO DECREASED GLUCOSE; Start 02/06/19 at 16:00 Dextrose (D50w Syringe) 25 ml Q15M PRN IV DECREASED GLUCOSE; Start 02/06/19 at 16:00 Dextrose (D50w Syringe) 50 ml Q15M PRN IV DECREASED GLUCOSE; Start 02/06/19 at 16:00 Glucagon (Glucagen) 1 mg Q15M PRN IM DECREASED GLUCOSE; Start 02/06/19 at 16:00 Glucose (Glutose) 15 gm Q15M PRN BUCCAL DECREASED GLUCOSE Last administered on 02/22/19at 23:24; Admin Dose 15 GM; Start 02/06/19 at 16:00 Pantoprazole (Protonix Tab) 40 mg BID@0600,1800 PO Last administered on 02/24/19at 05:24; Admin Dose 40 MG; Start 02/07/19 at 06:00 Miscellaneous Information (* Miscellaneous Pharmacy Order) Treatment of Hypoglycemia: 1.BG 51... Per protocol XX ; Start 02/08/19 at 09:00 Dextrose (D50w Syringe) 25 ml Q15M PRN IV .DECREASED GLUCOSE; Start 02/08/19 at 09:00 Dextrose (D50w Syringe) 50 ml Q15M PRN IV .DECREASED GLUCOSE; Start 02/08/19 at 09:00 Methimazole (Tapazole) 30 mg BID PO Last administered on 02/17/19 08:28; Admin Dose 30 MG; Start 02/08/19 at 13:30; Status Hold Heparin Sodium (Porcine) (Heparin (5000 Units/1ml)) 5,000 unit BID SC Last administered on 02/14/19 22:48; Admin Dose 5,000 UNIT; Start 02/11/19 at 09:00; Status Hold Acetaminophen/ Hydrocodone Bitart ([place] (5/325)) 1 tab Q6H PRN PO MODERATE PAIN LEVEL 4-6 Last administered on 02/23/19 14:08; Admin Dose 1 TAB; Start 02/12/19 at 09:00 Senna (Senokot) 2 tab BID PO Last administered on 02/24/19 08:51; Admin Dose 2 TAB; Start 02/16/19 at 21:00 Insulin Glargine (Lantus) 5 units DAILY@0930 SC Last administered on 02/24/19 08:58; Admin Dose 5 UNITS; Start 02/18/19 at 09:30 Bismuth Subsalicylate (Pepto-Bismol) 30 ml QID PO Last administered on 02/24/19 13:35; Admin Dose 30 ML; Start 02/17/19 at 17:30 Sodium Chloride (Nacl) 1 gm TID PO Last administered on 02/24/19 13:32; Admin Dose 1 GM; Start 02/19/19 at 21:00 Metoprolol Tartrate (Lopressor) 50 mg Q8 PO Last administered on 02/24/19 13:32; Admin Dose 50 MG; Start 02/21/19 at 14:00 Morphine Sulfate (morphine) 2 mg Q4H PRN IV SEVERE PAIN LEVEL 7-10 Last administered on 4/20/19at 18:33; Admin Dose 2 MG; Start 02/22/19 at 09:00 Insulin Aspart (Novolog Insulin Pen) NOVOLOG *MILD* ALGORITHM WITH MEALS BEDTIME SC ; Start 02/23/19 at 11:50 Furosemide (Lasix) 20 mg BID DIURETICS IV Last administered on 02/24/19at 05:24 ; Admin Dose 20 MG; Start 02/23/19 at 11:00 Midodrine (Proamatine) 10 mg TID@09,13,17 PO Last administered on 02/24/19 13:32; Admin Dose 10 MG; Start 02/23/19 at 13:00 Insulin Aspart (Novolog Insulin Pen) 4 unit WITH MEALS SC Last administered on 02/24/19 12:06; Admin Dose 4 UNIT; Start 02/23/19 at 17:55 NAYAN OAKLEY Feb 24, 2019 14:12
--- NOTE | 2019-02-24 15:34 | CONS ---
Assessment/Plan Assessment/Plan Hospital Course (Demo Recall) assessment/impression - s/p recurrent SIRS (fever and tachycardia); previous ID w/u and imaging were negative; Pt took Vancomycin and Cefepime (12/11/2018-12/14/18) - Mild peno-scrotal edema with possible left epididymitis as suggested on the FARZANA - s/p amoxicillin - Bilateral epididymitis improved on the left and minimally improved on the right compared to the previous study. Marked scrotal wall thickening and edema increased compared to previous study. No evidence of testicular torsion per T esticular US 02/22/19. - Ramesh mod-large pleural effusions per CT chest 02/22/19 - s/p Mild pyuria - urine cx grew <10K Citrobacter Koseri and <10K C. Albicans; pt is asymptomatic - repeat UA without pyuria, cx was negative - s/p bone marrow biopsy 02/20/19 - showed nl cellular marrow with adequate megak aryopoiesis, reduced marrow hemosiderin, reticulin fibrosis, mild, no granulomas identified, no e/o malignancy, no diagnostic immunophenotypic abl detected - s/p H. 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 Penumo ESBL in sputum cx on 12/15/2018, likely colonizer - Hx EBV exposure - The following is negative: HIV, HIV viral load, procalc <0.10 on 12/12/18, Cryto AG, [place]ear, Dengue, malaria, resp virus panel, MTB complex, HSV 1&2 by PCR, CMV, WBC scan on 12/18/2018, ESR 70 on 02/13/19 recommendations: - pending results: urine for gonorrhea and chlamydia - Monitor off antibiotics - management d/w Pt, his son and Consultation Date/Type/Reason Admit Date/Time Feb 06, 2019 at 14:46 Initial Consult Date 02/18/19 Requesting Provider: KIRK AREVALO MD Date/Time of Note DATE: 02/24/19 TIME: 15:33 24 HR Interval Summary Subjective hx not possible: other (sleepy and kept falling asleep) Constitutional: no complaints Detailed Summary Eyes: no complaints Gastrointestinal: no complaints Genitourinary: other (+pain from the scrotum) Musculoskeletal: no complaints Skin: no complaints Neurologic: no complaints Exam/Review of Systems Exam Vitals Vital Signs Date Temp Pulse Resp B/P (MAP) Pulse Ox O2 O2 Flow FiO2 Time Delivery Rate 02/24/19 99.4 90 20 106/65 96 Nasal 3.0 15:22 (79) Cannula Intake and Output 02/23/19 02/23/19 02/24/19 1515:00 23:00 07:00 IntakeIntake Total 700 ml 800 ml BalanceBalance 700 ml 800 ml Constitutional: frail Psych: no complaints, nl mood/affect Head: normocephalic, atraumatic Eyes: nl conjunctiva, nl lids, nl sclera ENMT: nl external ears & nose, nl nasal mucosa & septum, mucosa pink and moist Neck: other (not swollen) Respiratory: clear to auscultation Cardiovascular: regular rate and rhythm, nl pulses Gastrointestinal: soft, non-tender; No distended Genitourinary - Male: other (+scrotal swelling) Musculoskeletal: nl extremities to inspection Extremities: No edema Neurological: lethargic Skin: nl turgor; No rash or lesions Results Result Diagram: 02/23/19 0740 02/23/19 0740 Results 24hrs Laboratory Tests Test 02/23/19 17:35 02/23/19 20:56 02/24/19 06:00 02/24/19 08:01 Bedside Glucose 133 111 117 Urine Osmolality 336 Urine Random 91 H Sodium Test 02/24/19 11:59 02/24/19 12:58 Bedside Glucose 132 Lab Scanned Report REFERENCE LAB Medications Medication Current Medications IV Flush (NS 3 ml) 3 ml PER PROTOCOL IV ; Start 02/06/19 at 15:00 Ondansetron HCl (Zofran Inj) 4 mg Q6H PRN IV NAUSEA/VOMITING Last administered on 02/16/19at 11:54; Admin Dose 4 MG; Start 02/06/19 at 15:00 Acetaminophen (Tylenol Tab) 650 mg Q6H PRN PO .PAIN 1-3 OR TEMP Last administered on 02/21/19at 12:50; Admin Dose 650 MG; Start 02/06/19 at 15:00 Atorvastatin Calcium (Lipitor) 10 mg DAILY@21 PO Last administered on 02/23/19at 20:58; Admin Dose 10 MG; Start 02/06/19 at 21:00 Miscellaneous Information 1 ea NOTE XX ; Start 02/06/19 at 16:00 Glucose (Glutose) 15 gm Q15M PRN PO DECREASED GLUCOSE; Start 02/06/19 at 16:00 Glucose (Glutose) 22.5 gm Q15M PRN PO DECREASED GLUCOSE; Start 02/06/19 at 16:00 Dextrose (D50w Syringe) 25 ml Q15M PRN IV DECREASED GLUCOSE; Start 02/06/19 at 16:00 Dextrose (D50w Syringe) 50 ml Q15M PRN IV DECREASED GLUCOSE; Start 02/06/19 at 16:00 Glucagon (Glucagen) 1 mg Q15M PRN IM DECREASED GLUCOSE; Start 02/06/19 at 16:00 Glucose (Glutose) 15 gm Q15M PRN BUCCAL DECREASED GLUCOSE Last administered on 02/22/19at 23:24; Admin Dose 15 GM; Start 02/06/19 at 16:00 Pantoprazole (Protonix Tab) 40 mg BID@0600,1800 PO Last administered on 02/24/19at 05:24; Admin Dose 40 MG; Start 02/07/19 at 06:00 Miscellaneous Information (* Miscellaneous Pharmacy Order) Treatment of Hypoglycemia: 1.BG 51... Per protocol XX ; Start 02/08/19 at 09:00 Dextrose (D50w Syringe) 25 ml Q15M PRN IV .DECREASED GLUCOSE; Start 02/08/19 at 09:00 Dextrose (D50w Syringe) 50 ml Q15M PRN IV .DECREASED GLUCOSE; Start 02/08/19 at 09:00 Methimazole (Tapazole) 30 mg BID PO Last administered on 02/17/19at 08:28; Admin Dose 30 MG; Start 02/08/19 at 13:30; Status Hold Heparin Sodium (Porcine) (Heparin (5000 Units/1ml)) 5,000 unit BID SC Last administered on 02/14/19 22:48; Admin Dose 5,000 UNIT; Start 02/11/19 at 09:00; Status Hold Acetaminophen/ Hydrocodone Bitart ([place] (5/325)) 1 tab Q6H PRN PO MODERATE PAIN LEVEL 4-6 Last administered on 02/23/19 14:08; Admin Dose 1 TAB; Start 02/12/19 at 09:00 Senna (Senokot) 2 tab BID PO Last administered on 02/24/19 08:51; Admin Dose 2 TAB; Start 02/16/19 at 21:00 Insulin Glargine (Lantus) 5 units DAILY@0930 SC Last administered on 02/24/19 08:58; Admin Dose 5 UNITS; Start 02/18/19 at 09:30 Bismuth Subsalicylate (Pepto-Bismol) 30 ml QID PO Last administered on 02/24 13:35; Admin Dose 30 ML; Start 02/17/19 at 17:30 Sodium Chloride (Nacl) 1 gm TID PO Last administered on 02/24/19 13:32; Admin Dose 1 GM; Start 02/19/19 at 21:00 Metoprolol Tartrate (Lopressor) 50 mg Q8 PO Last administered on 02/24/19 13:32; Admin Dose 50 MG; Start 02/21/19 at 14:00 Morphine Sulfate (morphine) 2 mg Q4H PRN IV SEVERE PAIN LEVEL 7-10 Last administered on 02/22/19 18:33; Admin Dose 2 MG; Start 02/22/19 at 09:00 Insulin Aspart (Novolog Insulin Pen) NOVOLOG *MILD* ALGORITHM WITH MEALS BEDTIME SC ; Start 02/23/19 at 11:50 Furosemide (Lasix) 20 mg BID DIURETICS IV Last administered on 02/24/19 05:24; Admin Dose 20 MG; Start 02/23/19 at 11:00 Midodrine (Proamatine) 10 mg TID@,,17 PO Last administered on 02/24/19 13:32; Admin Dose 10 MG; Start 02/23/19 at 13:00 Insulin Aspart (Novolog Insulin Pen) 4 unit WITH MEALS SC Last administered on 02/24/19 12:06; Admin Dose 4 UNIT; Start 02/23/19 at 17:55 BRENDEN AGUAYO M.D. Feb 24, 2019 15:34
--- NOTE | 2019-02-24 15:46 | PN ---
Date/Time of Note Date/Time of Note DATE: 02/24/19 TIME: 15:44 Assessment/Plan VTE Prophylaxis Risk score (from Nsg)>0 risk: 4 SCD applied (from Nsg): Yes Pharmacological prophylaxis: NA/contraindicated Pharm contraindication: low risk/ambulating Lines/Catheters IV Catheter Type (from Nrsg): Saline Lock Urinary Cath still in place: No Assessment/Plan Hospital Course 59 yo male with hyperthyroidism, hyponatremia, and pancytopenias with FUO/SIRS Fluid overload with testicular swelling - imaging shows fluid overload. Continue Lasix 20 IV BID. Should help with scrotal edema/pain as well FUO/SIRS: - Unclear source. Has not resolved with abx. Extensive imaging negative for malignancy or infection. Bone marrow biopsy negative. WBC scan negative previously Hyperthyroid: - Off of anti-thyroidal meds per endocrine in anticipation of ablation as outpatient Tachycardia 12/07 hyperthyroid: - Metoprolol titration Cytopenias: - Flow cytometry suggested mild atypia, bone marrow biopsy wnl. LDH very elevated of unclear significance DMII: - Basal/bolus insulin Hyponatremia: - Chronic SIADH - Started on salt tabs, FW restrition H Pylori infection: - 3x therapy per ID Discharge plan: To home. Will require a few days of diuresis prior to discharge. Has thyroid ablation scheduled as an outpatient Result Diagram: 02/23/19 0740 02/23/19 0740 Results 24hrs Laboratory Tests Test 02/23/19 17:35 02/23/19 20:56 02/24/19 06:00 02/24/19 08:01 Bedside Glucose 133 111 117 Urine Osmolality 336 Urine Random 91 H Sodium Test 02/24/19 11:59 02/24/19 12:58 Bedside Glucose 132 Lab Scanned Report REFERENCE LAB Subjective 24 Hr Interval Summary Genitourinary: other (Testicular swelling) Exam/Review of Systems Exam Vitals Vital Signs Date Temp Pulse Resp B/P (MAP) Pulse Ox O2 O2 Flow FiO2 Time Delivery Rate 02/24/19 99.4 90 20 106/65 96 Nasal 3.0 15:22 (79) Cannula Intake and Output 02/23/19 02/23/19 02/24/19 1515:00 23:00 07:00 IntakeIntake Total 700 ml 800 ml BalanceBalance 700 ml 800 ml Constitutional: alert Respiratory: clear to auscultation Cardiovascular: regular rate and rhythm Gastrointestinal: soft; No distended Genitourinary - Male: No nl scrotum Musculoskeletal: nl extremities to inspection Results Results 24hrs Laboratory Tests Test 02/23/19 17:35 02/23/19 20:56 02/24/19 06:00 02/24/19 08:01 Bedside Glucose 133 111 117 Urine Osmolality 336 Urine Random 91 H Sodium Test 02/24/19 11:59 02/24/19 12:58 Bedside Glucose 132 Lab Scanned Report REFERENCE LAB Medications Medication Current Medications IV Flush (NS 3 ml) 3 ml PER PROTOCOL IV ; Start 02/06/19 at 15:00 Ondansetron HCl (Zofran Inj) 4 mg Q6H PRN IV NAUSEA/VOMITING Last administered on 02/16/19at 11:54; Admin Dose 4 MG; Start 02/06/19 at 15:00 Acetaminophen (Tylenol Tab) 650 mg Q6H PRN PO .PAIN 1-3 OR TEMP Last administered on 02/21/19at 12:50; Admin Dose 650 MG; Start 02/06/19 at 15:00 Atorvastatin Calcium (Lipitor) 10 mg DAILY@21 PO Last administered on 02/23/19at 20:58; Admin Dose 10 MG; Start 02/06/19 at 21:00 Miscellaneous Information 1 ea NOTE XX ; Start 02/06/19 at 16:00 Glucose (Glutose) 15 gm Q15M PRN PO DECREASED GLUCOSE; Start 02/06/19 at 16:00 Glucose (Glutose) 22.5 gm Q15M PRN PO DECREASED GLUCOSE; Start 02/06/19 at 16:00 Dextrose (D50w Syringe) 25 ml Q15M PRN IV DECREASED GLUCOSE; Start 02/06/19 at 16:00 Dextrose (D50w Syringe) 50 ml Q15M PRN IV DECREASED GLUCOSE; Start 02/06/19 at 16:00 Glucagon (Glucagen) 1 mg Q15M PRN IM DECREASED GLUCOSE; Start 02/06/19 at 16:00 Glucose (Glutose) 15 gm Q15M PRN BUCCAL DECREASED GLUCOSE Last administered on 02/22/19at 23:24; Admin Dose 15 GM; Start 02/06/19 at 16:00 Pantoprazole (Protonix Tab) 40 mg BID@0600,1800 PO Last administered on 02/24/19at 05:24; Admin Dose 40 MG; Start 02/07/19 at 06:00 Miscellaneous Information (* Miscellaneous Pharmacy Order) Treatment of Hypoglycemia: 1.BG 51... Per protocol XX ; Start 02/08/19 at 09:00 Dextrose (D50w Syringe) 25 ml Q15M PRN IV .DECREASED GLUCOSE; Start 02/08/19 at 09:00 Dextrose (D50w Syringe) 50 ml Q15M PRN IV .DECREASED GLUCOSE; Start 02/08/19 at 09:00 Methimazole (Tapazole) 30 mg BID PO Last administered on 02/17/19 08:28; Admin Dose 30 MG; Start 02/08/19 at 13:30; Status Hold Heparin Sodium (Porcine) (Heparin (5000 Units/1ml)) 5,000 unit BID SC Last administered on 02/14/19 22:48; Admin Dose 5,000 UNIT; Start 02/11/19 at 09:00; Status Hold Acetaminophen/ Hydrocodone Bitart ([place] (5/325)) 1 tab Q6H PRN PO MODERATE PAIN LEVEL 4-6 Last administered on 02/23/19 14:08; Admin Dose 1 TAB; Start 02/12/19 at 09:00 Senna (Senokot) 2 tab BID PO Last administered on 02/24/19 08:51; Admin Dose 2 TAB; Start 02/16/19 at 21:00 Insulin Glargine (Lantus) 5 units DAILY@0930 SC Last administered on 02/24/19 08:58; Admin Dose 5 UNITS; Start 02/18/19 at 09:30 Bismuth Subsalicylate (Pepto-Bismol) 30 ml QID PO Last administered on 13:35; Admin Dose 30 ML; Start 02/17/19 at 17:30 Sodium Chloride (Nacl) 1 gm TID PO Last administered on 02/24/19 13:32; Admin Dose 1 GM; Start 02/19/19 at 21:00 Metoprolol Tartrate (Lopressor) 50 mg Q8 PO Last administered on 02/24/19 13:32; Admin Dose 50 MG; Start 02/21/19 at 14:00 Morphine Sulfate (morphine) 2 mg Q4H PRN IV SEVERE PAIN LEVEL 7-10 Last administered on 02/22/19at 18:33; Admin Dose 2 MG; Start 02/22/19 at 09:00 Insulin Aspart (Novolog Insulin Pen) NOVOLOG *MILD* ALGORITHM WITH MEALS BEDTIME SC ; Start 02/23/19 at 11:50 Furosemide (Lasix) 20 mg BID DIURETICS IV Last administered on 02/24/19at 05:24; Admin Dose 20 MG; Start 02/23/19 at 11:00 Midodrine (Proamatine) 10 mg TID@,,17 PO Last administered on 02/24/19at 13:32; Admin Dose 10 MG; Start 02/23/19 at 13:00 Insulin Aspart (Novolog Insulin Pen) 4 unit WITH MEALS SC Last administered on 02/24/19at 12:06; Admin Dose 4 UNIT; Start 02/23/19 at 17:55 RODRIGUEZ DOTY Feb 24, 2019 15:46
--- NOTE | 2019-02-24 17:38 | CONS ---
Assessment/Plan Assessment/Plan Problems: (1) Epididymitis Status: Acute Comment: Has anasarca, but also has marked scrotal edema. As per primary care team and urology consult. (2) Graves' disease with exophthalmos Status: Chronic Comment: Recently off antithyroid drug therapy which had been working in preparation for nuclear medicine thyroid uptake and scan followed by ablation. Please note that while this will help with the thyroid disorder and may not treat anything else that might be going wrong in this gentleman. I am not sure they can attribute fevers shaking chills drenching sweats to the Graves' disease. Nor can attribute the severe iron deficiency anemia to this (3) Diabetes mellitus type 2 in nonobese Status: Chronic Comment: Adequate control (4) Helicobacter pylori stool test positive Status: Chronic Comment: Status post full treatment protocol (5) Anemia Status: Chronic Comment: He has not receiving iron at this time. We will go ahead and place him on oral iron therapy. He may be appropriate to consider for an evaluation for this. Qualifiers: Anemia type: iron deficiency Iron deficiency anemia type: unspecified iron deficiency Qualified Codes: D50.9 - Iron deficiency anemia, unspecified Consultation Date/Type/Reason Admit Date/Time Feb 06, 2019 at 14:46 Initial Consult Date 02/06/19 Type of Consult Endocrine Reason for Consultation Hyperthyroidism Requesting Provider: KIRK AREVALO MD Date/Time of Note DATE: 02/24/19 TIME: 17:34 24 HR Interval Summary Free Text/Dictation He continues to complain of weakness, the onset of swelling and edema, and intermittent fevers. Constitutional: febrile Detailed Summary Endocrine: other (Still with some tremor.) Exam/Review of Systems Exam Vitals Vital Signs Date Temp Pulse Resp B/P (MAP) Pulse Ox O2 O2 Flow FiO2 Time Delivery Rate 02/24/19 87 16:01 02/24/19 99.4 20 106/65 96 Nasal 3.0 15:22 (79) Cannula Intake and Output 02/23/19 02/23/19 02/24/19 1515:00 23:00 07:00 IntakeIntake Total 700 ml 800 ml BalanceBalance 700 ml 800 ml Exam Developed anasarca. Constitutional: alert, oriented Cardiovascular: regular rate and rhythm, nl pulses Genitourinary - Male: other (Scrotal edema.) Results Result Diagram: 02/23/19 0740 02/23/19 0740 Results 24hrs Laboratory Tests Test 02/23/19 17:35 02/23/19 20:56 02/24/19 06:00 02/24/19 08:01 Bedside Glucose 133 111 117 Urine Osmolality 336 Urine Random 91 H Sodium Test 02/24/19 11:59 02/24/19 12:58 Bedside Glucose 132 Lab Scanned Report REFERENCE LAB Medications Medication Current Medications IV Flush (NS 3 ml) 3 ml PER PROTOCOL IV ; Start 02/06/19 at 15:00 Ondansetron HCl (Zofran Inj) 4 mg Q6H PRN IV NAUSEA/VOMITING Last administered on 02/16/19at 11:54; Admin Dose 4 MG; Start 02/06/19 at 15:00 Acetaminophen (Tylenol Tab) 650 mg Q6H PRN PO .PAIN 1-3 OR TEMP Last administered on 02/21/19at 12:50; Admin Dose 650 MG; Start 02/06/19 at 15:00 Atorvastatin Calcium (Lipitor) 10 mg DAILY@21 PO Last administered on 02/23/19at 20:58; Admin Dose 10 MG; Start 02/06/19 at 21:00 Miscellaneous Information 1 ea NOTE XX ; Start 02/06/19 at 16:00 Glucose (Glutose) 15 gm Q15M PRN PO DECREASED GLUCOSE; Start 02/06/19 at 16:00 Glucose (Glutose) 22.5 gm Q15M PRN PO DECREASED GLUCOSE; Start 02/06/19 at 16:00 Dextrose (D50w Syringe) 25 ml Q15M PRN IV DECREASED GLUCOSE; Start 02/06/19 at 16:00 Dextrose (D50w Syringe) 50 ml Q15M PRN IV DECREASED GLUCOSE; Start 02/06/19 at 16:00 Glucagon (Glucagen) 1 mg Q15M PRN IM DECREASED GLUCOSE; Start 02/06/19 at 16:00 Glucose (Glutose) 15 gm Q15M PRN BUCCAL DECREASED GLUCOSE Last administered on 02/22/19at 23:24; Admin Dose 15 GM; Start 02/06/19 at 16:00 Pantoprazole (Protonix Tab) 40 mg BID@0600,1800 PO Last administered on at 05:24; Admin Dose 40 MG; Start 02/07/19 at 06:00 Miscellaneous Information (* Miscellaneous Pharmacy Order) Treatment of Hypoglycemia: 1.BG 51... Per protocol XX ; Start 02/08/19 at 09:00 Dextrose (D50w Syringe) 25 ml Q15M PRN IV .DECREASED GLUCOSE; Start 02/08/19 at 09:00 Dextrose (D50w Syringe) 50 ml Q15M PRN IV .DECREASED GLUCOSE; Start 02/08/19 at 09:00 Methimazole (Tapazole) 30 mg BID PO Last administered on 02/17/19 08:28; Admin Dose 30 MG; Start 02/08/19 at 13:30; Status Hold Heparin Sodium (Porcine) (Heparin (5000 Units/1ml)) 5,000 unit BID SC Last administered on 02/14/19 22:48; Admin Dose 5,000 UNIT; Start 02/11/19 at 09:00; Status Hold Acetaminophen/ Hydrocodone Bitart ([place] (5/325)) 1 tab Q6H PRN PO MODERATE PAIN LEVEL 4-6 Last administered on 02/23/19 14:08; Admin Dose 1 TAB; Start 02/12/19 at 09:00 Senna (Senokot) 2 tab BID PO Last administered on 02/24/19 08:51; Admin Dose 2 TAB; Start 02/16/19 at 21:00 Insulin Glargine (Lantus) 5 units DAILY@0930 SC Last administered on 02/24/19 08:58; Admin Dose 5 UNITS; Start 02/18/19 at 09:30 Bismuth Subsalicylate (Pepto-Bismol) 30 ml QID PO Last administered on 02/24/19 13:35; Admin Dose 30 ML; Start 02/17/19 at 17:30 Sodium Chloride (Nacl) 1 gm TID PO Last administered on 02/24/19 13:32; Admin Dose 1 GM; Start 02/19/19 at 21:00 Metoprolol Tartrate (Lopressor) 50 mg Q8 PO Last administered on 02/24/19 13:32; Admin Dose 50 MG; Start 02/21/19 at 14:00 Morphine Sulfate (morphine) 2 mg Q4H PRN IV SEVERE PAIN LEVEL 7-10 Last administered on 02/22/19 18:33; Admin Dose 2 MG; Start 02/22/19 at 09:00 Insulin Aspart (Novolog Insulin Pen) NOVOLOG *MILD* ALGORITHM WITH MEALS BEDTIME SC ; Start 02/23/19 at 11:50 Furosemide (Lasix) 20 mg BID DIURETICS IV Last administered on 02/24/19at 05:24; Admin Dose 20 MG; Start 02/23/19 at 11:00 Midodrine (Proamatine) 10 mg TID@,13,17 PO Last administered on 02/24/19at 13:32; Admin Dose 10 MG; Start 02/23/19 at 13:00 Insulin Aspart (Novolog Insulin Pen) 4 unit WITH MEALS SC Last administered on 02/24/19at 12:06; Admin Dose 4 UNIT; Start 02/23/19 at 17:55 ANA GARCIA MD Feb 24, 2019 17:38
[2019-02-24] MEDS: ASCORBIC ACID 500 MG TAB PO SCH (20:42)
[2019-02-24] MEDS: ATORVASTATIN 10 MG TAB PO SCH (20:42)
[2019-02-24] MEDS: FERROUS SULFATE (EC) 325 MG TAB PO SCH (20:42)
[2019-02-25] VITALS (10 sets, daily range): BP systolic 79–127; BP diastolic 41–63; PULSE 66–108; RESP 18–19
[2019-02-25] MEDS: METOPROLOL 50 MG TAB PO SCH ×3 (06:00→21:51)
[2019-02-25] MEDS: PANTOPRAZOLE (EC) 40 MG TAB PO SCH ×2 (06:18→17:40)
[2019-02-25] MEDS: FUROSEMIDE 20 MG INJ IV SCH ×2 (06:18→17:43)
[2019-02-25] MEDS: INSULIN ASPART [NOVOLOG] 3 ML PEN SC SCH ×7 (07:55→21:00)
[2019-02-25] MEDS: SENNA TAB PO SCH ×2 (08:04→21:49)
[2019-02-25] MEDS: FERROUS SULFATE (EC) 325 MG TAB PO SCH ×2 (08:04→21:50)
[2019-02-25] MEDS: ASCORBIC ACID 500 MG TAB PO SCH ×2 (08:04→21:49)
[2019-02-25] MEDS: SODIUM CHLORIDE 1 GM TAB PO SCH ×3 (08:05→21:49)
[2019-02-25] MEDS: MIDODRINE 5 MG TAB PO SCH ×3 (09:31→17:45)
--- NOTE | 2019-02-25 09:36 | PN ---
DATE: 02/25/2019 SUBJECTIVE: The patient remains weak, lethargic. The patient was noted to be hypertensive overnight . No other acute events noted. No hemoptysis, hematemesis or hematochezia. OBJECTIVE: VITAL SIGNS: Blood pressure is 80/41, respirations 18, pulse 99, temperature 99.2. HEENT: Head is normocephalic. NECK: Supple. HEART: Regular rate. LUNGS: Show diminished breath sounds at the base. ABDOMEN: Soft, nontender to palpation without rebound or guarding. EXTREMITIES: Negative for clubbing, cyanosis. Positive edema. DERMATOLOGIC: No rashes. MUSCULOSKELETAL: No joint effusion. NEUROLOGIC: No change in exam. MEDICATIONS: The patient's medications have been reviewed. LABORATORY DATA: Reviewed. ASSESSMENT AND PLAN: 1. Hyponatremia, etiology is likely secondary to syndrome of inappropriate antidiuretic hormone. Th e patient's urine studies have been reviewed, findings showed mixed picture but can be consistent wit h syndrome of inappropriate antidiuretic hormone. Sodium levels have been low but remain stable. Co ntinue salt tablets. Continue free water restriction and monitor closely. 2. Hypothyroidism with Graves' disease. Continue to monitor. Follow up with endocrinology. The ad centeno is currently off thyroid medication. Continue Tapazole. 3. Hypertension, etiology may be hemodynamics, volume depletion. The patient is on diuretic therapy . Continue to monitor. 4. Thrombocytopenia, etiology is unclear. Continue workup per hematology. 5. Diabetes. Continue current insulin regimen. 6. Systemic inflammatory response syndrome. Etiology is unclear. The patient is status post antibi otics, continue to monitor. 7. Arrhythmia. Continue to monitor. Dictated By: DIANNA SAWYER DO NR/NTS Conf#: [id number] DID#: [id number] CC: RODRIGUEZ DOTY MD; PURVI QUIGLEY MD; ANA GARCIA MD;*End*
[2019-02-25] MEDS: INSULIN GLARGINE [LANTus] (100 UNITS/ML) SYG SC SCH (10:18)
[2019-02-25] MEDS: BISMUTH SUBSALICYLATE 240 ML BTL PO SCH ×4 (10:28→21:00)
[2019-02-25] MEDS: ACETAMINOPHEN 325 MG TAB PO PRN (13:53)
[2019-02-25] MEDS ORDERED: MAGNESIUM SULFATE 4 GM/100 ML 100 ML IVPB ONE (15:00)
--- NOTE | 2019-02-25 15:44 | PN ---
Date/Time of Note Date/Time of Note DATE: 02/25/19 TIME: 15:40 Assessment/Plan VTE Prophylaxis Risk score (from Nsg)>0 risk: 6 SCD applied (from Nsg): Yes Pharmacological prophylaxis: NA/contraindicated Pharm contraindication: low risk/ambulating Lines/Catheters IV Catheter Type (from Nrsg): Saline Lock Urinary Cath still in place: No Assessment/Plan Hospital Course 59 yo male with hyperthyroidism, hyponatremia, and pancytopenias with FUO/SIRS Fluid overload with testicular swelling - imaging shows fluid overload. Continue Lasix 20 IV BID. Should help with scrotal edema/pain as well -No further interventions per urology FUO/SIRS: - Unclear source. Has not resolved with abx. Extensive imaging negative for malignancy or infection. Bone marrow biopsy negative. WBC scan negative previously Hyperthyroid: - Off of anti-thyroidal meds per endocrine in anticipation of ablation as outpatient Tachycardia / hyperthyroid: - Metoprolol titration Cytopenias: - Flow cytometry suggested mild atypia, bone marrow biopsy wnl. LDH very elevated of unclear significance DMII: - Basal/bolus insulin Hyponatremia: - Chronic SIADH - Started on salt tabs, FW restrition H Pylori infection: - 3x therapy per ID Discharge plan: To home. Will require a few days of diuresis prior to discharge. Has thyroid ablation scheduled as an outpatient Result Diagram: 02/25/19 0547 02/25/19 0547 Results 24hrs Laboratory Tests Test 02/24/19 17:32 02/24/19 20:47 02/25/19 05:47 02/25/19 07:54 Bedside Glucose 86 90 90 White Blood Count 5.1 Red Blood Count 3.45 L Hemoglobin 8.3 L Hematocrit 25.8 L Mean Corpuscular 74.8 L Volume Mean Corpuscular 24.1 L Hemoglobin Mean Corpuscular 32.2 Hemoglobin Concent Red Cell 20.1 H Distribution Width Platelet Count 122 L Mean Platelet Volume 8.7 Immature 1.200 H Granulocytes % Neutrophils % Segmented 58 Neutrophils % (Manual) Lymphocytes % Lymphocytes % 27 (Manual) Reactive Lymphocytes 3 H % (Manual) Monocytes % Monocytes % (Manual) 9 Eosinophils % Basophils % Basophils % (Manual) 3 H Nucleated Red Blood 1 H Cells % Immature 0.060 H Granulocytes # Neutrophils # Lymphocytes (Manual) 1.3 Lymphocytes # Reactive Lymphocytes 0.1 H # Monocytes # Monocytes # (Manual) 0.4 Eosinophils # Basophils # Basophils # (Manual) 0.1 H Nucleated Red Blood Cells # Platelet Estimate DECREASED Giant Platelets 2 H Poikilocytosis 1+ Anisocytosis 1+ Microcytosis 1+ Spherocytes 1+ Sodium Level 127 L Potassium Level 3.5 Chloride Level 94 L Carbon Dioxide Level 29 Anion Gap 4 L Blood Urea Nitrogen 9 Creatinine 0.66 Est Glomerular > 60 Filtrat Rate mL/min Glucose Level 67 L Calcium Level 8.5 Phosphorus Level 3.8 Magnesium Level 1.2 L Test 02/25/19 11:51 Bedside Glucose 99 Subjective 24 Hr Interval Summary Constitutional: no complaints Exam/Review of Systems Exam Vitals Vital Signs Date Temp Pulse Resp B/P (MAP) Pulse Ox O2 O2 Flow FiO2 Time Delivery Rate 02/25/19 98.6 15:00 02/25/19 104 12:01 02/25/19 19 117/63 99 Nasal 3.0 11:17 (81) Cannula Intake and Output 02/24/19 02/24/19 02/25/19 1515:00 23:00 07:00 IntakeIntake Total 350 ml 450 ml 550 ml OutputOutput Total 600 ml BalanceBalance 350 ml -150 ml 550 ml Constitutional: alert, oriented Respiratory: clear to auscultation Cardiovascular: regular rate and rhythm Gastrointestinal: soft; No distended Musculoskeletal: nl extremities to inspection Results Results 24hrs Laboratory Tests Test 02/24/19 17:32 02/24/19 20:47 02/25/19 05:47 02/25/19 07:54 Bedside Glucose 86 90 90 White Blood Count 5.1 Red Blood Count 3.45 L Hemoglobin 8.3 L Hematocrit 25.8 L Mean Corpuscular 74.8 L Volume Mean Corpuscular 24.1 L Hemoglobin Mean Corpuscular 32.2 Hemoglobin Concent Red Cell 20.1 H Distribution Width Platelet Count 122 L Mean Platelet Volume 8.7 Immature 1.200 H Granulocytes % Neutrophils % Segmented 58 Neutrophils % (Manual) Lymphocytes % Lymphocytes % 27 (Manual) Reactive Lymphocytes 3 H % (Manual) Monocytes % Monocytes % (Manual) 9 Eosinophils % Basophils % Basophils % (Manual) 3 H Nucleated Red Blood 1 H Cells % Immature 0.060 H Granulocytes # Neutrophils # Lymphocytes (Manual) 1.3 Lymphocytes # Reactive Lymphocytes 0.1 H # Monocytes # Monocytes # (Manual) 0.4 Eosinophils # Basophils # Basophils # (Manual) 0.1 H Nucleated Red Blood Cells # Platelet Estimate DECREASED Giant Platelets 2 H Poikilocytosis 1+ Anisocytosis 1+ Microcytosis 1+ Spherocytes 1+ Sodium Level 127 L Potassium Level 3.5 Chloride Level 94 L Carbon Dioxide Level 29 Anion Gap 4 L Blood Urea Nitrogen 9 Creatinine 0.66 Est Glomerular > 60 Filtrat Rate mL/min Glucose Level 67 L Calcium Level 8.5 Phosphorus Level 3.8 Magnesium Level 1.2 L Test 02/25/19 11:51 Bedside Glucose 99 Medications Medication Current Medications IV Flush (NS 3 ml) 3 ml PER PROTOCOL IV ; Start 02/06/19 at 15:00 Ondansetron HCl (Zofran Inj) 4 mg Q6H PRN IV NAUSEA/VOMITING Last administered on 02/16/19at 11:54; Admin Dose 4 MG; Start 02/06/19 at 15:00 Acetaminophen (Tylenol Tab) 650 mg Q6H PRN PO .PAIN 1-3 OR TEMP Last administered on 02/25/19at 13:53; Admin Dose 650 MG; Start 02/06/19 at 15:00 Atorvastatin Calcium (Lipitor) 10 mg DAILY@21 PO Last administered on 02/24/19at 20:42; Admin Dose 10 MG; Start 02/06/19 at 21:00 Miscellaneous Information 1 ea NOTE XX ; Start 02/06/19 at 16:00 Glucose (Glutose) 15 gm Q15M PRN PO DECREASED GLUCOSE; Start 02/06/19 at 16:00 Glucose (Glutose) 22.5 gm Q15M PRN PO DECREASED GLUCOSE; Start 02/06/19 at 16:00 Dextrose (D50w Syringe) 25 ml Q15M PRN IV DECREASED GLUCOSE; Start 02/06/19 at 16:00 Dextrose (D50w Syringe) 50 ml Q15M PRN IV DECREASED GLUCOSE; Start 02/06/19 at 16:00 Glucagon (Glucagen) 1 mg Q15M PRN IM DECREASED GLUCOSE; Start 02/06/19 at 16:00 Glucose (Glutose) 15 gm Q15M PRN BUCCAL DECREASED GLUCOSE Last administered on 02/22/19at 23:24; Admin Dose 15 GM; Start 02/06/19 at 16:00 Pantoprazole (Protonix Tab) 40 mg BID@0600,1800 PO Last administered on 06:18; Admin Dose 40 MG; Start 02/07/19 at 06:00 Miscellaneous Information (* Miscellaneous Pharmacy Order) Treatment of Hypoglycemia: 1.BG 51... Per protocol XX ; Start 02/08/19 at 09:00 Dextrose (D50w Syringe) 25 ml Q15M PRN IV .DECREASED GLUCOSE; Start 02/08/19 at 09:00 Dextrose (D50w Syringe) 50 ml Q15M PRN IV .DECREASED GLUCOSE; Start 02/08/19 at 09:00 Methimazole (Tapazole) 30 mg BID PO Last administered on 02/17/19 08:28; Admin Dose 30 MG; Start 02/08/19 at 13:30; Status Hold Heparin Sodium (Porcine) (Heparin (5000 Units/1ml)) 5,000 unit BID SC Last administered on 02/14/19at 22:48; Admin Dose 5,000 UNIT; Start 02/11/19 at 09:00; Status Hold Acetaminophen/ Hydrocodone Bitart ([place] (5/325)) 1 tab Q6H PRN PO MODERATE PAIN LEVEL 4-6 Last administered on 02/23/19 14:08; Admin Dose 1 TAB; Start 02/12/19 at 09:00 Senna (Senokot) 2 tab BID PO Last administered on 02/25/19 08:04; Admin Dose 2 TAB; Start 02/16/19 at 21:00 Insulin Glargine (Lantus) 5 units DAILY@0930 SC Last administered on 02/25/19 10:18; Admin Dose 5 UNITS; Start 02/18/19 at 09:30 Bismuth Subsalicylate (Pepto-Bismol) 30 ml QID PO Last administered on 02/25/19 12:25; Admin Dose 30 ML; Start 02/17/19 at 17:30 Sodium Chloride (Nacl) 1 gm TID PO Last administered on 02/25/19 12:25; Admin Dose 1 GM; Start 02/19/19 at 21:00 Metoprolol Tartrate (Lopressor) 50 mg Q8 PO Last administered on 02/25/19 13 :53; Admin Dose 50 MG; Start 02/21/19 at 14:00 Morphine Sulfate (morphine) 2 mg Q4H PRN IV SEVERE PAIN LEVEL 7-10 Last administered on 02/22/19at 18:33; Admin Dose 2 MG; Start 02/22/19 at 09:00 Insulin Aspart (Novolog Insulin Pen) NOVOLOG *MILD* ALGORITHM WITH MEALS BEDTIME SC ; Start 02/23/19 at 11:50 Furosemide (Lasix) 20 mg BID DIURETICS IV Last administered on 02/25/19at 06:18; Admin Dose 20 MG; Start 02/23/19 at 11:00 Midodrine (Proamatine) 10 mg TID@,13,17 PO Last administered on 02/25/19at 13:53; Admin Dose 10 MG; Start 02/23/19 at 13:00 Insulin Aspart (Novolog Insulin Pen) 4 unit WITH MEALS SC Last administered on 02/25/19at 12:01; Admin Dose 4 UNIT; Start 02/23/19 at 17:55 Ascorbic Acid (Vitamin C) 500 mg BID PO Last administered on 02/25/19at 08:04; Admin Dose 500 MG; Start 02/24/19 at 21:00; Stop 03/26/19 at 20:59 Ferrous Sulfate (Ferrous Sulfate (Ec)) 325 mg BID PO Last administered on 02/25/19 08:04; Admin Dose 325 MG; Start 02/24/19 at 21:00; Stop 03/26/19 at 20:59 Magnesium Sulfate 100 ml @ 25 mls/hr ONCE ONCE IVPB ; Start 02/25/19 at 15:00; Stop 02/25/19 at 18:59 RODRIGUEZ DOTY Feb 25, 2019 15:44
--- NOTE | 2019-02-25 18:18 | CONS ---
Assessment/Plan Assessment/Plan Problems: (1) Graves' disease with exophthalmos Status: Chronic Comment: On February 22, [address] scans of chest abdomen and pelvis. This was done with IV contrast. Because of this we cannot do thyroid uptake or scanner ablation for period of at least 8 weeks. Therefore resume methimazole treatment and reevaluate this in 2 months. (2) Diabetes mellitus type 2 in nonobese Status: Chronic Comment: Adequate control. Please consider diagnostic thoracentesis for this patient Consultation Date/Type/Reason Admit Date/Time Feb 06, 2019 at 14:46 Initial Consult Date 02/06/19 Type of Consult Endocrine Reason for Consultation Hyperthyroidism; fever of unknown origin; anasarca Requesting Provider: KIRK AREVALO MD Date/Time of Note DATE: 02/25/19 TIME: 18:17 24 HR Interval Summary Free Text/Dictation Patient reports he still feels weak. Detailed Summary Endocrine: no complaints Exam/Review of Systems Exam Vitals Vital Signs Date Temp Pulse Resp B/P (MAP) Pulse Ox O2 O2 Flow FiO2 Time Delivery Rate 02/25/19 78 97/56 (70) 98 Nasal 3.0 18:09 Cannula 02/25/19 99.2 19 16:04 Intake and Output 02/24/19 02/24/19 02/25/19 1515:00 23:00 07:00 IntakeIntake Total 350 ml 450 ml 550 ml OutputOutput Total 600 ml BalanceBalance 350 ml -150 ml 550 ml Constitutional: alert, oriented Cardiovascular: regular rate and rhythm, nl pulses Results Result Diagram: 02/25/19 0547 02/25/19 0547 Results 24hrs Laboratory Tests Test 02/24/19 20:47 02/25/19 05:47 02/25/19 07:54 02/25/19 11:51 Bedside Glucose 90 90 99 White Blood Count 5.1 Red Blood Count 3.45 L Hemoglobin 8.3 L Hematocrit 25.8 L Mean Corpuscular 74.8 L Volume Mean Corpuscular 24.1 L Hemoglobin Mean Corpuscular 32.2 Hemoglobin Concent Red Cell 20.1 H Distribution Width Platelet Count 122 L Mean Platelet Volume 8.7 Immature 1.200 H Granulocytes % Neutrophils % Segmented 58 Neutrophils % (Manual) Lymphocytes % Lymphocytes % 27 (Manual) Reactive Lymphocytes 3 H % (Manual) Monocytes % Monocytes % (Manual) 9 Eosinophils % Basophils % Basophils % (Manual) 3 H Nucleated Red Blood 1 H Cells % Immature 0.060 H Granulocytes # Neutrophils # Lymphocytes (Manual) 1.3 Lymphocytes # Reactive Lymphocytes 0.1 H # Monocytes # Monocytes # (Manual) 0.4 Eosinophils # Basophils # Basophils # (Manual) 0.1 H Nucleated Red Blood Cells # Platelet Estimate DECREASED Giant Platelets 2 H Poikilocytosis 1+ Anisocytosis 1+ Microcytosis 1+ Spherocytes 1+ Sodium Level 127 L Potassium Level 3.5 Chloride Level 94 L Carbon Dioxide Level 29 Anion Gap 4 L Blood Urea Nitrogen 9 Creatinine 0.66 Est Glomerular > 60 Filtrat Rate mL/min Glucose Level 67 L Calcium Level 8.5 Phosphorus Level 3.8 Magnesium Level 1.2 L Test 02/25/19 17:29 Bedside Glucose 95 Medications Medication Current Medications IV Flush (NS 3 ml) 3 ml PER PROTOCOL IV ; Start 02/06/19 at 15:00 Ondansetron HCl (Zofran Inj) 4 mg Q6H PRN IV NAUSEA/VOMITING Last administered on 02/16/19at 11:54; Admin Dose 4 MG; Start 02/06/19 at 15:00 Acetaminophen (Tylenol Tab) 650 mg Q6H PRN PO .PAIN 1-3 OR TEMP Last administered on 02/25/19at 13:53; Admin Dose 650 MG; Start 02/06/19 at 15:00 Atorvastatin Calcium (Lipitor) 10 mg DAILY@21 PO Last administered on 02/24/19at 20:42; Admin Dose 10 MG; Start 02/06/19 at 21:00 Miscellaneous Information 1 ea NOTE XX ; Start 02/06/19 at 16:00 Glucose (Glutose) 15 gm Q15M PRN PO DECREASED GLUCOSE; Start 02/06/19 at 16:00 Glucose (Glutose) 22.5 gm Q15M PRN PO DECREASED GLUCOSE; Start 02/06/19 at 16:00 Dextrose (D50w Syringe) 25 ml Q15M PRN IV DECREASED GLUCOSE; Start 02/06/19 at 16:00 Dextrose (D50w Syringe) 50 ml Q15M PRN IV DECREASED GLUCOSE; Start 02/06/19 at 16:00 Glucagon (Glucagen) 1 mg Q15M PRN IM DECREASED GLUCOSE; Start 02/06/19 at 16:00 Glucose (Glutose) 15 gm Q15M PRN BUCCAL DECREASED GLUCOSE Last administered on 02/22/19 23:24; Admin Dose 15 GM; Start 02/06/19 at 16:00 Pantoprazole (Protonix Tab) 40 mg BID@0600,1800 PO Last administered on 02/25/19 17:40; Admin Dose 40 MG; Start 02/07/19 at 06:00 Miscellaneous Information (* Miscellaneous Pharmacy Order) Treatment of Hypoglycemia: 1.BG 51... Per protocol XX ; Start 02/08/19 at 09:00 Dextrose (D50w Syringe) 25 ml Q15M PRN IV .DECREASED GLUCOSE; Start 02/08/19 at 09:00 Dextrose (D50w Syringe) 50 ml Q15M PRN IV .DECREASED GLUCOSE; Start 02/08/19 at 09:00 Methimazole (Tapazole) 30 mg BID PO Last administered on 02/17/19 08:28; Admin Dose 30 MG; Start 02/08/19 at 13:30; Status Hold Heparin Sodium (Porcine) (Heparin (5000 Units/1ml)) 5,000 unit BID SC Last administered on 02/14/19 22:48; Admin Dose 5,000 UNIT; Start 02/11/19 at 09:00; Status Hold Acetaminophen/ Hydrocodone Bitart ([place] (5/325)) 1 tab Q6H PRN PO MODERATE PAIN LEVEL 4-6 Last administered on 02/23/19 14:08; Admin Dose 1 TAB; Start 02/12/19 at 09:00 Senna (Senokot) 2 tab BID PO Last administered on 02/25/19at 08:04; Admin Dose 2 TAB; Start 02/16/19 at 21:00 Insulin Glargine (Lantus) 5 units DAILY@0930 SC Last administered on 02/25/19 10:18; Admin Dose 5 UNITS; Start 02/18/19 at 09:30 Bismuth Subsalicylate (Pepto-Bismol) 30 ml QID PO Last administered on 02/25/19 17:47; Admin Dose 30 ML; Start 02/17/19 at 17:30 Sodium Chloride (Nacl) 1 gm TID PO Last administered on 02/25/19 12:25; Admin Dose 1 GM; Start 02/19/19 at 21:00 Metoprolol Tartrate (Lopressor) 50 mg Q8 PO Last administered on 02/25/19 13:53; Admin Dose 50 MG; Start 02/21/19 at 14:00 Morphine Sulfate (morphine) 2 mg Q4H PRN IV SEVERE PAIN LEVEL 7-10 Last ad ministered on 02/22/19at 18:33; Admin Dose 2 MG; Start 02/22/19 at 09:00 Insulin Aspart (Novolog Insulin Pen) NOVOLOG *MILD* ALGORITHM WITH MEALS BEDTIME SC ; Start 02/23/19 at 11:50 Furosemide (Lasix) 20 mg BID DIURETICS IV Last administered on 02/25/19 17:43; Admin Dose 20 MG; Start 02/23/19 at 11:00 Midodrine (Proamatine) 10 mg TID@09,13,17 PO Last administered on 02/25/19 17:45; Admin Dose 10 MG; Start 02/23/19 at 13:00 Insulin Aspart (Novolog Insulin Pen) 4 unit WITH MEALS SC Last administered on 02/25/19 17:34; Admin Dose 4 UNIT; Start 02/23/19 at 17:55 Ascorbic Acid (Vitamin C) 500 mg BID PO Last administered on 02/25/19 08:04; Admin Dose 500 MG; Start 02/24/19 at 21:00; Stop 03/26/19 at 20:59 Ferrous Sulfate (Ferrous Sulfate (Ec)) 325 mg BID PO Last administered on 08:04; Admin Dose 325 MG; Start 02/24/19 at 21:00; Stop 03/26/19 at 20:59 Magnesium Sulfate 100 ml @ 25 mls/hr ONCE ONCE IVPB Last administered on 02/25/19 15:54; Admin Dose 25 MLS/HR; Start 02/25/19 at 15:00; Stop 02/25/19 at 18:59 ANA GARCIA MD Feb 25, 2019 18:18
--- NOTE | 2019-02-25 20:33 | CONS ---
Assessment/Plan Assessment/Plan Hospital Course (Demo Recall) assessment/impression - s/p recurrent SIRS (fever and tachycardia); previous ID w/u and imaging were negative; Pt took Vancomycin and Cefepime (12/11/2018-12/14/18) - Mild peno-scrotal edema with possible left epididymitis as suggested on the FARZANA - s/p amoxicillin - Bilateral epididymitis improved on the left and minimally improved on the right compared to the previous study. Marked scrotal wall thickening and edema increased compared to previous study. No evidence of testicular torsion per T esticular US 02/22/19. urine for gonorrhea and chlamydia was negative - Ramesh mod-large pleural effusions per CT chest 02/22/19 - s/p Mild pyuria - urine cx grew <10K Citrobacter Koseri and <10K C. Albicans; pt is asymptomatic - repeat UA without pyuria, cx was negative - s/p bone marrow biopsy 02/20/19 - showed nl cellular marrow with adequate megakaryopoiesis, reduced marrow hemosiderin, reticulin fibrosis, mild, no granulomas identified, no e/o malignancy, no diagnostic immunophenotypic abl detected - s/p H. 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 Penumo ESBL in sputum cx on 12/15/2018, likely colonizer - Hx EBV exposure - The following is negative: HIV, HIV viral load, procalc <0.10 on 12/12/18, Cryto AG, [place]-smear, Dengue, malaria, resp virus panel, MTB complex, HSV 1&2 by PCR, CMV, WBC scan on 12/18/2018, ESR 70 on 02/13/19 recommendations: - ordered: sputum culture - Monitor off antibiotics - management d/w Pt, his son and RN [place] Consultation Date/Type/Reason Admit Date/Time Feb 06, 2019 at 14:46 Initial Consult Date 02/18/19 Requesting Provider: KIRK AREVALO MD Date/Time of Note DATE: 02/25/19 TIME: 20:30 24 HR Interval Summary Constitutional: No chills, No febrile, No poor po Detailed Summary Respiratory: cough, sputum Cardiovascular: no complaints Gastrointestinal: pain ("sometimes good, sometimes not good") Genitourinary: other (pain from swollen scrotum) Musculoskeletal: no complaints Skin: no complaints Exam/Review of Systems Exam Vitals Vital Signs Date Temp Pulse Resp B/P (MAP) Pulse Ox O2 O2 Flow FiO2 Time Delivery Rate 02/25/19 98.5 75 19 89/53 (65) 98 20:00 02/25/19 Nasal 3.0 18:09 Cannula Intake and Output 02/24/19 02/24/19 02/25/19 1515:00 23:00 07:00 IntakeIntake Total 350 ml 450 ml 550 ml OutputOutput Total 600 ml BalanceBalance 350 ml -150 ml 550 ml Constitutional: frail Psych: no complaints, nl mood/affect Head: normocephalic, atraumatic Eyes: nl conjunctiva, nl lids, nl sclera ENMT: nl external ears & nose, nl nasal mucosa & septum, mucosa pink and moist Neck: non-tender, other (not swollen) Respiratory: clear to auscultation, normal air movement; No congested cough Cardiovascular: regular rate and rhythm, nl pulses Gastrointestinal: other (scrotal swelling) Musculoskeletal: nl extremities to inspection Extremities: normal pulses Neurological: [employer] II-XII intact, nl mental status, nl speech Skin: nl turgor; No rash or lesions Results Result Diagram: 02/25/19 0547 02/25/19 0547 Results 24hrs Laboratory Tests Test 02/24/19 20:47 02/25/19 05:47 02/25/19 07:54 02/25/19 11:51 Bedside Glucose 90 90 99 White Blood Count 5.1 Red Blood Count 3.45 L Hemoglobin 8.3 L Hematocrit 25.8 L Mean Corpuscular 74.8 L Volume Mean Corpuscular 24.1 L Hemoglobin Mean Corpuscular 32.2 Hemoglobin Concent Red Cell 20.1 H Distribution Width Platelet Count 122 L Mean Platelet Volume 8.7 Immature 1.200 H Granulocytes % Neutrophils % Segmented 58 Neutrophils % (Manual) Lymphocytes % Lymphocytes % 27 (Manual) Reactive Lymphocytes 3 H % (Manual) Monocytes % Monocytes % (Manual) 9 Eosinophils % Basophils % Basophils % (Manual) 3 H Nucleated Red Blood 1 H Cells % Immature 0.060 H Granulocytes # Neutrophils # Lymphocytes (Manual) 1.3 Lymphocytes # Reactive Lymphocytes 0.1 H # Monocytes # Monocytes # (Manual) 0.4 Eosinophils # Basophils # Basophils # (Manual) 0.1 H Nucleated Red Blood Cells # Platelet Estimate DECREASED Giant Platelets 2 H Poikilocytosis 1+ Anisocytosis 1+ Microcytosis 1+ Spherocytes 1+ Sodium Level 127 L Potassium Level 3.5 Chloride Level 94 L Carbon Dioxide Level 29 Anion Gap 4 L Blood Urea Nitrogen 9 Creatinine 0.66 Est Glomerular > 60 Filtrat Rate mL/min Glucose Level 67 L Calcium Level 8.5 Phosphorus Level 3.8 Magnesium Level 1.2 L Test 02/25/19 17:29 Bedside Glucose 95 Medications Medication Current Medications IV Flush (NS 3 ml) 3 ml PER PROTOCOL IV ; Start 02/06/19 at 15:00 Ondansetron HCl (Zofran Inj) 4 mg Q6H PRN IV NAUSEA/VOMITING Last administered on 02/16/19at 11:54; Admin Dose 4 MG; Start 02/06/19 at 15:00 Acetaminophen (Tylenol Tab) 650 mg Q6H PRN PO .PAIN 1-3 OR TEMP Last administered on 02/25/19at 13:53; Admin Dose 650 MG; Start 02/06/19 at 15:00 Atorvastatin Calcium (Lipitor) 10 mg DAILY@21 PO Last administered on 02/24/19at 20:42; Admin Dose 10 MG; Start 02/06/19 at 21:00 Miscellaneous Information 1 ea NOTE XX ; Start 02/06/19 at 16:00 Glucose (Glutose) 15 gm Q15M PRN PO DECREASED GLUCOSE; Start 02/06/19 at 16:00 Glucose (Glutose) 22.5 gm Q15M PRN PO DECREASED GLUCOSE; Start 02/06/19 at 16:00 Dextrose (D50w Syringe) 25 ml Q15M PRN IV DECREASED GLUCOSE; Start 02/06/19 at 16:00 Dextrose (D50w Syringe) 50 ml Q15M PRN IV DECREASED GLUCOSE; Start 02/06/19 at 16:00 Glucagon (Glucagen) 1 mg Q15M PRN IM DECREASED GLUCOSE; Start 02/06/19 at 16:00 Glucose (Glutose) 15 gm Q15M PRN BUCCAL DECREASED GLUCOSE Last administered on 02/22/19 23:24; Admin Dose 15 GM; Start 02/06/19 at 16:00 Pantoprazole (Protonix Tab) 40 mg BID@0600,1800 PO Last administered on 02/25/19 17:40; Admin Dose 40 MG; Start 02/07/19 at 06:00 Miscellaneous Information (* Miscellaneous Pharmacy Order) Treatment of Hypoglycemia: 1.BG 51... Per protocol XX ; Start 02/08/19 at 09:00 Dextrose (D50w Syringe) 25 ml Q15M PRN IV .DECREASED GLUCOSE; Start 02/08/19 at 09:00 Dextrose (D50w Syringe) 50 ml Q15M PRN IV .DECREASED GLUCOSE; Start 02/08/19 at 09:00 Methimazole (Tapazole) 30 mg BID PO Last administered on 02/17/19 08:28; Admin Dose 30 MG; Start 02/08/19 at 13:30 Heparin Sodium (Porcine) (Heparin (5000 Units/1ml)) 5,000 unit BID SC Last administered on 02/14/19 22:48; Admin Dose 5,000 UNIT; Start 02/11/19 at 09:00; Status Hold Acetaminophen/ Hydrocodone Bitart ([place] (5/325)) 1 tab Q6H PRN PO MODERATE PAIN LEVEL 4-6 Last administered on 02/23/19 14:08; Admin Dose 1 TAB; Start 02/12/19 at 09:00 Senna (Senokot) 2 tab BID PO Last administered on 02/25/19 08:04; Admin Dose 2 TAB; Start 02/16/19 at 21:00 Insulin Glargine (Lantus) 5 units DAILY@0930 SC Last administered on 02/25/19 10:18; Admin Dose 5 UNITS; Start 02/18/19 at 09:30 Bismuth Subsalicylate (Pepto-Bismol) 30 ml QID PO Last administered on 02/25/19at 17:47; Admin Dose 30 ML; Start 02/17/19 at 17:30 Sodium Chloride (Nacl) 1 gm TID PO Last administered on 02/25/19 12:25; Admin Dose 1 GM; Start 02/19/19 at 21:00 Metoprolol Tartrate (Lopressor) 50 mg Q8 PO Last administered on 02/25/19 13:53; Admin Dose 50 MG; Start 02/21/19 at 14:00 Morphine Sulfate (morphine) 2 mg Q4H PRN IV SEVERE PAIN LEVEL 7-10 Last administered on 02/22/19 18:33; Admin Dose 2 MG; Start 02/22/19 at 09:00 Insulin Aspart (Novolog Insulin Pen) NOVOLOG *MILD* ALGORITHM WITH MEALS BEDTIME SC ; Start 02/23/19 at 11:50 Furosemide (Lasix) 20 mg BID DIURETICS IV Last administered on 02/25/19 17:43; Admin Dose 20 MG; Start 02/23/19 at 11:00 Midodrine (Proamatine) 10 mg TID@09,13,17 PO Last administered on 02/25/19 17:45; Admin Dose 10 MG; Start 02/23/19 at 13:00 Insulin Aspart (Novolog Insulin Pen) 4 unit WITH MEALS SC Last administered on 02/25/19 17:34; Admin Dose 4 UNIT; Start 02/23/19 at 17:55 Ascorbic Acid (Vitamin C) 500 mg BID PO Last administered on 02/25/19 08:04; Admin Dose 500 MG; Start 02/24/19 at 21:00; Stop 03/26/19 at 20:59 Ferrous Sulfate (Ferrous Sulfate (Ec)) 325 mg BID PO Last administered on 02/25/19 08:04; Admin Dose 325 MG; Start 02/24/19 at 21:00; Stop 03/26/19 at 20 :59 BRENDEN AGUAYO M.D. Feb 25, 2019 20:33
[2019-02-25] MEDS: ATORVASTATIN 10 MG TAB PO SCH (21:49)
[2019-02-25] MEDS: METHIMAZOLE 5 MG TAB PO SCH (21:50)
[2019-02-26] VITALS (9 sets, daily range): BP systolic 90–111; BP diastolic 51–68; PULSE 76–111; RESP 18
[2019-02-26] MEDS: PANTOPRAZOLE (EC) 40 MG TAB PO SCH ×3 (05:17→18:29)
[2019-02-26] MEDS: METOPROLOL 50 MG TAB PO SCH ×3 (05:17→21:38)
[2019-02-26] MEDS: FUROSEMIDE 20 MG INJ IV SCH ×2 (05:18→17:30)
[2019-02-26] MEDS: INSULIN ASPART [NOVOLOG] 3 ML PEN SC SCH ×7 (07:55→21:00)
[2019-02-26] MEDS: MIDODRINE 5 MG TAB PO SCH ×4 (08:06→18:29)
[2019-02-26] MEDS: SODIUM CHLORIDE 1 GM TAB PO SCH ×3 (08:07→21:36)
[2019-02-26] MEDS: FERROUS SULFATE (EC) 325 MG TAB PO SCH ×2 (08:07→21:36)
[2019-02-26] MEDS: ASCORBIC ACID 500 MG TAB PO SCH ×2 (08:07→21:36)
[2019-02-26] MEDS: SENNA TAB PO SCH ×2 (08:07→21:36)
[2019-02-26] MEDS: BISMUTH SUBSALICYLATE 240 ML BTL PO SCH ×4 (08:08→21:37)
[2019-02-26] MEDS: ACETAMINOPHEN 325 MG TAB PO PRN (08:08)
[2019-02-26] MEDS ORDERED: MAGNESIUM SULFATE 2 GM/50 ML 50 ML IVPB ONE (08:30)
--- NOTE | 2019-02-26 09:16 | PN ---
DATE: 02/26/2019 SUBJECTIVE: The patient is stable. No events overnight. No fevers, chills, nausea, or vomiting. OBJECTIVE: VITAL SIGNS: Blood pressure is 111/67, pulse 111, temperature 101.6. HEENT: Head is normocephalic. NECK: Supple. HEART: Regular rate. LUNGS: Show diminished breath sounds at the base. ABDOMEN: Soft, nontender to palpation without rebound or guarding. EXTREMITIES: Negative for clubbing, cyanosis, no edema. DERMATOLOGIC: No rashes. MUSCULOSKELETAL: No joint effusion. NEUROLOGIC: No change in exam. MEDICATIONS: Reviewed. LABORATORY DATA: Reviewed. ASSESSMENT AND PLAN: 1. Hypernatremia, etiology is felt to be secondary to syndrome of inappropriate antidiuretic hormone . The patient's urine studies have been reviewed. Initially has shown a mixed picture, but can be c onsistent with possible syndrome of inappropriate antidiuretic hormone. Continue free water restrict ion, continue salt tablets. Continue diuretic therapy and monitor closely. 2. Hypothyroidism with Graves' disease. Continue to monitor. Follow up with endocrinology. The ad centeno is on methimazole. 3. Hypotension. Etiology is possibly due to hemodynamics. Continue to monitor closely. 4. Thrombocytopenia, etiology is unclear. Continue to monitor. 5. Systemic inflammatory response syndrome, fever of unknown origin. The patient is status post ant ibiotics, continue workup with primary team and infectious disease. 6. Diabetes. Continue current insulin regimen. 7. History of arrhythmia. Continue to monitor. Dictated By: DIANNA SAWYER DO NR/NTS Conf#: [id number] DID#: [id number] CC: ANA GARCIA MD; RODRIGUEZ DOTY MD; PURVI QUIGLEY MD;*End*
[2019-02-26] MEDS: METHIMAZOLE 5 MG TAB PO SCH ×2 (09:34→21:36)
[2019-02-26] MEDS: ONDANSETRON 4 MG INJ IV PRN (09:34)
[2019-02-26] MEDS: INSULIN GLARGINE [LANTus] (100 UNITS/ML) SYG SC SCH (10:18)
--- NOTE | 2019-02-26 13:09 | CONS ---
Assessment/Plan Assessment/Plan Hospital Course (Demo Recall) assessment/impression - s/p recurrent SIRS (fever and tachycardia); previous ID w/u and imaging were negative; Pt took Vancomycin and Cefepime (12/11/2018-12/14/18) - Mild peno-scrotal edema with possible left epididymitis as suggested on the FARZANA - s/p amoxicillin - Bilateral epididymitis improved on the left and minimally improved on the right compared to the previous study. Marked scrotal wall thickening and edema increased compared to previous study. No evidence of testicular torsion per T esticular US 02/22/19. urine for gonorrhea and chlamydia was negative - Ramesh mod-large pleural effusions per CT chest 02/22/19 - s/p Mild pyuria - urine cx grew <10K Citrobacter Koseri and <10K C. Albicans; pt is asymptomatic - repeat UA without pyuria, cx was negative - s/p bone marrow biopsy 02/20/19 - showed nl cellular marrow with adequate megakaryopoiesis, reduced marrow hemosiderin, reticulin fibrosis, mild, no granulomas identified, no e/o malignancy, no diagnostic immunophenotypic abl detected - s/p H. 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 Penumo ESBL in sputum cx on 12/15/2018, likely colonizer - Hx EBV exposure - The following is negative: HIV, HIV viral load, procalc <0.10 on 12/12/18, Cryto AG, [place]-smear, Dengue, malaria, resp virus panel, MTB complex, HSV 1&2 by PCR, CMV, WBC scan on 12/18/2018, ESR 70 on 02/13/19 recommendations: - Monitor off antibiotics - Pt's daughter had questions re. this Pt's PT and fluid status. I defer answering these questions to this Pt's hospitalist - management d/w Pt, his daughter Consultation Date/Type/Reason Admit Date/Time Feb 06, 2019 at 14:46 Initial Consult Date 02/18/19 Requesting Provider: KIRK AREVALO MD Date/Time of Note DATE: 02/26/19 TIME: 13:05 24 HR Interval Summary Constitutional: other (pain in his scrotum) Detailed Summary Eyes: no complaints Respiratory: no complaints Cardiovascular: no complaints Genitourinary: other (+scrotal swelling) Musculoskeletal: no complaints Skin: no complaints Neurologic: other (weak) Exam/Review of Systems Exam Vitals Vital Signs Date Temp Pulse Resp B/P (MAP) Pulse Ox O2 O2 Flow FiO2 Time Delivery Rate 02/26/19 79 12:04 02/26/19 99.3 18 90/51 (64) 96 11:09 02/26/19 Nasal 2.0 08:30 Cannula Intake and Output 02/25/19 02/25/19 02/26/19 1515:00 23:00 07:00 IntakeIntake Total 846 ml 500 ml BalanceBalance 846 ml 500 ml Constitutional: frail Psych: no complaints, nl mood/affect Head: normocephalic, atraumatic Eyes: nl conjunctiva, nl lids, nl sclera ENMT: nl external ears & nose, nl nasal mucosa & septum, mucosa pink and moist Neck: other (not swollen) Respiratory: clear to auscultation, normal air movement Cardiovascular: regular rate and rhythm, nl pulses; No edema Gastrointestinal: soft, non-tender; No distended Genitourinary - Male: other (+scrotal swelling) Musculoskeletal: nl extremities to inspection; No swelling Extremities: No edema Skin: nl turgor; No rash or lesions Results Result Diagram: 02/26/19 0602/26/19 0601 Results 24hrs Laboratory Tests Test 02/25/19 17:29 02/25/19 21:46 02/25/19 22:11 02/25/19 22:34 Bedside Glucose 95 64 L 86 116 Test 02/26/19 06:01 02/26/19 08:04 02/26/19 10:15 White Blood Count 4.4 L Red Blood Count 3.90 L Hemoglobin 9.3 L Hematocrit 30.0 L Mean Corpuscular 76.9 L Volume Mean Corpuscular 23.8 L Hemoglobin Mean Corpuscular 31.0 L Hemoglobin Concent Red Cell 20.9 H Distribution Width Platelet Count 136 L Mean Platelet Volume 9.7 Immature 0.500 H Granulocytes % Neutrophils % Segmented 73 Neutrophils % (Manual) Band Neutrophils % 4 (Manual) Lymphocytes % Lymphocytes % 16 (Manual) Reactive Lymphocytes 1 H % (Manual) Monocytes % Monocytes % (Manual) 6 Eosinophils % Basophils % Nucleated Red Blood 0.0 Cells % Immature 0.020 Granulocytes # Neutrophils # Neutrophils # 3.2 (Manual) Band Neutrophils # 0.1 Lymphocytes (Manual) 0.7 L Lymphocytes # Reactive Lymphocytes 0.0 # Monocytes # Monocytes # (Manual) 0.2 L Eosinophils # Basophils # Nucleated Red Blood Cells # Platelet Estimate NORMAL Polychromasia 1+ Poikilocytosis 2+ Anisocytosis 1+ Microcytosis 1+ Ovalocytes 1+ Sodium Level 128 L Potassium Level 3.8 Chloride Level 94 L Carbon Dioxide Level 26 Anion Gap 8 Blood Urea Nitrogen 9 Creatinine 0.65 Est Glomerular > 60 Filtrat Rate mL/min Glucose Level 133 # Calcium Level 8.2 L Phosphorus Level 3.6 Magnesium Level 1.6 L Random Cortisol 17.1 Bedside Glucose 115 86 Medications Medication Current Medications IV Flush (NS 3 ml) 3 ml PER PROTOCOL IV ; Start 02/06/19 at 15:00 Ondansetron HCl (Zofran Inj) 4 mg Q6H PRN IV NAUSEA/VOMITING Last administered on 02/26/19at 09:34; Admin Dose 4 MG; Start 02/06/19 at 15:00 Acetaminophen (Tylenol Tab) 650 mg Q6H PRN PO .PAIN 1-3 OR TEMP Last administered on 02/26/19at 08:08; Admin Dose 650 MG; Start 02/06/19 at 15:00 Atorvastatin Calcium (Lipitor) 10 mg DAILY@21 PO Last administered on 02/25/19at 21:49; Admin Dose 10 MG; Start 02/06/19 at 21:00 Miscellaneous Information 1 ea NOTE XX ; Start 02/06/19 at 16:00 Glucose (Glutose) 15 gm Q15M PRN PO DECREASED GLUCOSE; Start 02/06/19 at 16:00 Glucose (Glutose) 22.5 gm Q15M PRN PO DECREASED GLUCOSE; Start 02/06/19 at 16:00 Dextrose (D50w Syringe) 25 ml Q15M PRN IV DECREASED GLUCOSE; Start 02/06/19 at 16:00 Dextrose (D50w Syringe) 50 ml Q15M PRN IV DECREASED GLUCOSE; Start 02/06/19 at 16:00 Glucagon (Glucagen) 1 mg Q15M PRN IM DECREASED GLUCOSE; Start 02/06/19 at 16:00 Glucose (Glutose) 15 gm Q15M PRN BUCCAL DECREASED GLUCOSE Last administered on 02/22/19at 23:24; Admin Dose 15 GM; Start 02/06/19 at 16:00 Pantoprazole (Protonix Tab) 40 mg BID@0600,1800 PO Last administered on 02/26/19at 05:17; Admin Dose 40 MG; Start 02/07/19 at 06:00 Miscellaneous Information (* Miscellaneous Pharmacy Order) Treatment of Hypogly cemia: 1.BG 51... Per protocol XX ; Start 02/08/19 at 09:00 Dextrose (D50w Syringe) 25 ml Q15M PRN IV .DECREASED GLUCOSE; Start 02/08/19 at 09:00 Dextrose (D50w Syringe) 50 ml Q15M PRN IV .DECREASED GLUCOSE; Start 02/08/19 at 09:00 Methimazole (Tapazole) 30 mg BID PO Last administered on 02/26/19at 09:34; Admin Dose 30 MG; Start 02/08/19 at 13:30 Heparin Sodium (Porcine) (Heparin (5000 Units/1ml)) 5,000 unit BID SC Last administered on 02/14/19at 22:48; Admin Dose 5,000 UNIT; Start 02/11/19 at 09:00; Status Hold Acetaminophen/ Hydrocodone Bitart ([place] (5/325)) 1 tab Q6H PRN PO MODERATE PAIN LEVEL 4-6 Last administered on 02/23/19at 14:08; Admin Dose 1 TAB; Start 02/12/19 at 09:00 Senna (Senokot) 2 tab BID PO Last administered on 02/26/19at 08:07; Admin Dose 2 TAB; Start 02/16/19 at 21:00 Insulin Glargine (Lantus) 5 units DAILY@0930 SC Last administered on 02/26/19at 10:18; Admin Dose 5 UNITS; Start 02/18/19 at 09:30 Bismuth Subsalicylate (Pepto-Bismol) 30 ml QID PO Last administered on 02/26/19 12:25; Admin Dose 30 ML; Start 02/17/19 at 17:30 Sodium Chloride (Nacl) 1 gm TID PO Last administered on 02/26/19 12:25; Admin Dose 1 GM; Start 02/19/19 at 21:00 Metoprolol Tartrate (Lopressor) 50 mg Q8 PO Last administered on 02/26/19 05:17; Admin Dose 50 MG; Start 02/21/19 at 14:00 Morphine Sulfate (morphine) 2 mg Q4H PRN IV SEVERE PAIN LEVEL 7-10 Last administered on 02/22/19 18:33; Admin Dose 2 MG; Start 02/22/19 at 09:00 Insulin Aspart (Novolog Insulin Pen) NOVOLOG *MILD* ALGORITHM WITH MEALS BEDTIME SC ; Start 02/23/19 at 11:50 Furosemide (Lasix) 20 mg BID DIURETICS IV Last administered on 02/26/19 05:18; Admin Dose 20 MG; Start 02/23/19 at 11:00 Midodrine (Proamatine) 10 mg TID@,,17 PO Last administered on 02/26/19 12:25; Admin Dose 10 MG; Start 02/23/19 at 13:00 Insulin Aspart (Novolog Insulin Pen) 4 unit WITH MEALS SC Last administered on 02/26/19 12:39; Admin Dose 4 UNIT; Start 02/23/19 at 17:55 Ascorbic Acid (Vitamin C) 500 mg BID PO Last administered on 02/26/19 08:07; Admin Dose 500 MG; Start 02/24/19 at 21:00; Stop 03/26/19 at 20:59 Ferrous Sulfate (Ferrous Sulfate (Ec)) 325 mg BID PO Last administered on 02/26/19 08:07; Admin Dose 325 MG; Start 02/24/19 at 21:00; Stop 03/26/19 at 20:59 BRENDEN AGUAYO M.D. Feb 26, 2019 13:09
--- NOTE | 2019-02-26 14:51 | CONS ---
Assessment/Plan Assessment/Plan Hospital Course (Demo Recall) assessment/impression - s/p recurrent SIRS (fever and tachycardia); previous ID w/u and imaging were negative; Pt took Vancomycin and Cefepime (12/11/2018-12/14/18) - Mild peno-scrotal edema with possible left epididymitis as suggested on the FARZANA - s/p amoxicillin - Bilateral epididymitis improved on the left and minimally improved on the right compared to the previous study. Marked scrotal wall thickening and edema increased compared to previous study. No evidence of testicular torsion per T esticular US 02/22/19. urine for gonorrhea and chlamydia was negative - Ramesh mod-large pleural effusions per CT chest 02/22/19 - s/p Mild pyuria - urine cx grew <10K Citrobacter Koseri and <10K C. Albicans; pt is asymptomatic - repeat UA without pyuria, cx was negative - s/p bone marrow biopsy 02/20/19 - showed nl cellular marrow with adequate megakaryopoiesis, reduced marrow hemosiderin, reticulin fibrosis, mild, no granulomas identified, no e/o malignancy, no diagnostic immunophenotypic abl detected - s/p H. 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 Penumo ESBL in sputum cx on 12/15/2018, likely colonizer - Hx EBV exposure - The following is negative: HIV, HIV viral load, procalc <0.10 on 12/12/18, Cryto AG, Gilliam-smear, Dengue, malaria, resp virus panel, MTB complex, HSV 1&2 by PCR, CMV, WBC scan on 12/18/2018 additional recommendations: - I recommend repeat transthoracic echo - I also recommend rheumatology consult - I also recommend and have ordered: procalcitonin, lactic acid, repeat LDH, repeat ESR, repeat CRP, RPR, rheumatoid factor, ferritin, triglyceride, hepatitis panel including hepatitis B viral load and hepatitis C viral load, stool O&P, R. typhus antibody - Monitor off antibiotics - will defer question of PT to Pt's hospitalist - management d/w Dr. Browne the total time I took to care for this Pt today was 50 min Consultation Date/Type/Reason Admit Date/Time Feb 06, 2019 at 14:46 Initial Consult Date 02/18/19 Requesting Provider: KIRK AREVALO MD Date/Time of Note DATE: 02/26/19 TIME: 14:31 Exam/Review of Systems Exam Vitals Vital Signs Date Temp Pulse Resp B/P (MAP) Pulse Ox O2 O2 Flow FiO2 Time Delivery Rate 02/26/19 79 12:04 02/26/19 99.3 18 90/51 (64) 96 11:09 02/26/19 Nasal 2.0 08:30 Cannula Intake and Output 02/25/19 02/25/19 02/26/19 1515:00 23:00 07:00 IntakeIntake Total 846 ml 500 ml BalanceBalance 846 ml 500 ml Results Result Diagram: 02/26/19 0601 02/26/19 0601 Results 24hrs Laboratory Tests Test 02/25/19 17:29 02/25/19 21:46 02/25/19 22:11 02/25/19 22:34 Bedside Glucose 95 64 L 86 116 Test 02/26/19 06:01 02/26/19 08:04 02/26/19 10:15 02/26/19 12:23 White Blood Count 4.4 L Red Blood Count 3.90 L Hemoglobin 9.3 L Hematocrit 30.0 L Mean Corpuscular 76.9 L Volume Mean Corpuscular 23.8 L Hemoglobin Mean Corpuscular 31.0 L Hemoglobin Concent Red Cell 20.9 H Distribution Width Platelet Count 136 L Mean Platelet Volume 9.7 Immature 0.500 H Granulocytes % Neutrophils % Segmented 73 Neutrophils % (Manual) Band Neutrophils % 4 (Manual) Lymphocytes % Lymphocytes % 16 (Manual) Reactive Lymphocytes 1 H % (Manual) Monocytes % Monocytes % (Manual) 6 Eosinophils % Basophils % Nucleated Red Blood 0.0 Cells % Immature 0.020 Granulocytes # Neutrophils # Neutrophils # 3.2 (Manual) Band Neutrophils # 0.1 Lymphocytes (Manual) 0.7 L Lymphocytes # Reactive Lymphocytes 0.0 # Monocytes # Monocytes # (Manual) 0.2 L Eosinophils # Basophils # Nucleated Red Blood Cells # Platelet Estimate NORMAL Polychromasia 1+ Poikilocytosis 2+ Anisocytosis 1+ Microcytosis 1+ Ovalocytes 1+ Sodium Level 128 L Potassium Level 3.8 Chloride Level 94 L Carbon Dioxide Level 26 Anion Gap 8 Blood Urea Nitrogen 9 Creatinine 0.65 Est Glomerular > 60 Filtrat Rate mL/min Glucose Level 133 # Calcium Level 8.2 L Phosphorus Level 3.6 Magnesium Level 1.6 L Random Cortisol 17.1 Bedside Glucose 115 86 119 Medications Medication Current Medications IV Flush (NS 3 ml) 3 ml PER PROTOCOL IV ; Start 02/06/19 at 15:00 Ondansetron HCl (Zofran Inj) 4 mg Q6H PRN IV NAUSEA/VOMITING Last administered on 02/26/19at 09:34; Admin Dose 4 MG; Start 02/06/19 at 15:00 Acetaminophen (Tylenol Tab) 650 mg Q6H PRN PO .PAIN 1-3 OR TEMP Last administered on 02/26/19at 08:08; Admin Dose 650 MG; Start 02/06/19 at 15:00 Atorvastatin Calcium (Lipitor) 10 mg DAILY@21 PO Last administered on 02/25/19at 21:49; Admin Dose 10 MG; Start 02/06/19 at 21:00 Miscellaneous Information 1 ea NOTE XX ; Start 02/06/19 at 16:00 Glucose (Glutose) 15 gm Q15M PRN PO DECREASED GLUCOSE; Start 02/06/19 at 16:00 Glucose (Glutose) 22.5 gm Q15M PRN PO DECREASED GLUCOSE; Start 02/06/19 at 16:00 Dextrose (D50w Syringe) 25 ml Q15M PRN IV DECREASED GLUCOSE; Start 02/06/19 at 16:00 Dextrose (D50w Syringe) 50 ml Q15M PRN IV DECREASED GLUCOSE; Start 02/06/19 at 16:00 Glucagon (Glucagen) 1 mg Q15M PRN IM DECREASED GLUCOSE; Start 02/06/19 at 16:00 Glucose (Glutose) 15 gm Q15M PRN BUCCAL DECREASED GLUCOSE Last administered on 02/22/19at 23:24; Admin Dose 15 GM; Start 02/06/19 at 16:00 Pantoprazole (Protonix Tab) 40 mg BID@0600,1800 PO Last administered on 02/26/19 05:17; Admin Dose 40 MG; Start 02/07/19 at 06:00 Miscellaneous Information (* Miscellaneous Pharmacy Order) Treatment of Hypoglycemia: 1.BG 51... Per protocol XX ; Start 02/08/19 at 09:00 Dextrose (D50w Syringe) 25 ml Q15M PRN IV .DECREASED GLUCOSE; Start 02/08/19 at 09:00 Dextrose (D50w Syringe) 50 ml Q15M PRN IV .DECREASED GLUCOSE; Start 02/08/19 at 09:00 Methimazole (Tapazole) 30 mg BID PO Last administered on 02/26/19 09:34; Admin Dose 30 MG; Start 02/08/19 at 13:30 Heparin Sodium (Porcine) (Heparin (5000 Units/1ml)) 5,000 unit BID SC Last administered on 02/14/19 22:48; Admin Dose 5,000 UNIT; Start 02/11/19 at 09:00; Status Hold Acetaminophen/ Hydrocodone Bitart ([place] (5/325)) 1 tab Q6H PRN PO MODERATE PAIN LEVEL 4-6 Last administered on 02/23/19 14:08; Admin Dose 1 TAB; Start 02/12/19 at 09:00 Senna (Senokot) 2 tab BID PO Last administered on 02/26/19 08:07; Admin Dose 2 TAB; Start 02/16/19 at 21:00 Insulin Glargine (Lantus) 5 units DAILY@0930 SC Last administered on 02/26/19 10:18; Admin Dose 5 UNITS; Start 02/18/19 at 09:30 Bismuth Subsalicylate (Pepto-Bismol) 30 ml QID PO Last administered on 02/26/19 12:25; Admin Dose 30 ML; Start 02/17/19 at 17:30 Sodium Chloride (Nacl) 1 gm TID PO Last administered on 02/26/19 12:25; Admin Dose 1 GM; Start 02/19/19 at 21:00 Metoprolol Tartrate (Lopressor) 50 mg Q8 PO Last administered on 02/26/19 05:17; Admin Dose 50 MG; Start 02/21/19 at 14:00 Morphine Sulfate (morphine) 2 mg Q4H PRN IV SEVERE PAIN LEVEL 7-10 Last administered on 02/22/19at 18:33; Admin Dose 2 MG; Start 02/22/19 at 09:00 Insulin Aspart (Novolog Insulin Pen) NOVOLOG *MILD* ALGORITHM WITH MEALS BEDTIME SC ; Start 02/23/19 at 11:50 Furosemide (Lasix) 20 mg BID DIURETICS IV Last administered on 02/26/19at 05:18; Admin Dose 20 MG; Start 02/23/19 at 11:00 Midodrine (Proamatine) 10 mg TID@,13,17 PO Last administered on 02/26/19 12:25; Admin Dose 10 MG; Start 02/23/19 at 13:00 Insulin Aspart (Novolog Insulin Pen) 4 unit WITH MEALS SC Last administered on 02/26/19at 12:39; Admin Dose 4 UNIT; Start 02/23/19 at 17:55 Ascorbic Acid (Vitamin C) 500 mg BID PO Last administered on 02/26/19at 08:07; Admin Dose 500 MG; Start 02/24/19 at 21:00; Stop 03/26/19 at 20:59 Ferrous Sulfate (Ferrous Sulfate (Ec)) 325 mg BID PO Last administered on 02/26/19 08:07; Admin Dose 325 MG; Start 02/24/19 at 21:00; Stop 03/26/19 at 20:59 BRENDEN AGUAYO M.D. Feb 26, 2019 14:46
--- NOTE | 2019-02-26 16:03 | PN ---
Date/Time of Note Date/Time of Note DATE: 02/26/19 TIME: 16:01 Assessment/Plan VTE Prophylaxis Risk score (from Nsg)>0 risk: 6 SCD applied (from Nsg): Yes Pharmacological prophylaxis: NA/contraindicated Pharm contraindication: low risk/ambulating Lines/Catheters IV Catheter Type (from Nrsg): Peripheral IV Urinary Cath still in place: No Assessment/Plan Hospital Course 59 yo male with hyperthyroidism, hyponatremia, and pancytopenias with FUO/SIRS Fluid overload with testicular swelling - imaging shows fluid overload. Continue Lasix 20 IV BID. Should help with scrotal edema/pain as well -No further interventions per urology -Exact etiology of anasarca unclear FUO/SIRS: - Unclear source. Has not resolved with abx. Extensive imaging negative for malignancy or infection. Bone marrow biopsy negative. WBC scan negative previously -Consider repeat echo, further workup per ID -Consider rheumatology workup Hyperthyroid: - Off of anti-thyroidal meds per endocrine in anticipation of ablation as outpatient Tachycardia 2/2 hyperthyroid: - Metoprolol titration Cytopenias: - Flow cytometry suggested mild atypia, bone marrow biopsy wnl. LDH very eleva ebenezer of unclear significance DMII: - Basal/bolus insulin Hyponatremia: - Chronic SIADH - Started on salt tabs, FW restrition H Pylori infection: - 3x therapy per ID Discharge plan: Continue with workup for fevers Result Diagram: 02/26/19 0602/26/19 0601 Results 24hrs Laboratory Tests Test 02/25/19 17:29 02/25/19 21:46 02/25/19 22:11 02/25/19 22:34 Bedside Glucose 95 64 L 86 116 Test 02/26/19 06:01 02/26/19 08:04 02/26/19 10:15 02/26/19 12:23 White Blood Count 4.4 L Red Blood Count 3.90 L Hemoglobin 9.3 L Hematocrit 30.0 L Mean Corpuscular 76.9 L Volume Mean Corpuscular 23.8 L Hemoglobin Mean Corpuscular 31.0 L Hemoglobin Concent Red Cell 20.9 H Distribution Width Platelet Count 136 L Mean Platelet Volume 9.7 Immature 0.500 H Granulocytes % Neutrophils % Segmented 73 Neutrophils % (Manual) Band Neutrophils % 4 (Manual) Lymphocytes % Lymphocytes % 16 (Manual) Reactive Lymphocytes 1 H % (Manual) Monocytes % Monocytes % (Manual) 6 Eosinophils % Basophils % Nucleated Red Blood 0.0 Cells % Immature 0.020 Granulocytes # Neutrophils # Neutrophils # 3.2 (Manual) Band Neutrophils # 0.1 Lymphocytes (Manual) 0.7 L Lymphocytes # Reactive Lymphocytes 0.0 # Monocytes # Monocytes # (Manual) 0.2 L Eosinophils # Basophils # Nucleated Red Blood Cells # Platelet Estimate NORMAL Polychromasia 1+ Poikilocytosis 2+ Anisocytosis 1+ Microcytosis 1+ Ovalocytes 1+ Sodium Level 128 L Potassium Level 3.8 Chloride Level 94 L Carbon Dioxide Level 26 Anion Gap 8 Blood Urea Nitrogen 9 Creatinine 0.65 Est Glomerular > 60 Filtrat Rate mL/min Glucose Level 133 # Calcium Level 8.2 L Phosphorus Level 3.6 Magnesium Level 1.6 L Random Cortisol 17.1 Bedside Glucose 115 86 119 Subjective 24 Hr Interval Summary Genitourinary: other (Testicular pain) Exam/Review of Systems Exam Vitals Vital Signs Date Temp Pulse Resp B/P (MAP) Pulse Ox O2 O2 Flow FiO2 Time Delivery Rate 02/26/19 98.4 76 18 106/66 94 15:18 (79) 02/26/19 Nasal 2.0 08:30 Cannula Intake and Output 02/25/19 02/25/19 02/26/19 1515:00 23:00 07:00 IntakeIntake Total 846 ml 500 ml BalanceBalance 846 ml 500 ml Constitutional: alert, oriented Respiratory: clear to auscultation Cardiovascular: regular rate and rhythm Gastrointestinal: soft; No distended Musculoskeletal: nl extremities to inspection Results Results 24hrs Laboratory Tests Test 02/25/19 17:29 02/25/19 21:46 02/25/19 22:11 02/25/19 22:34 Bedside Glucose 95 64 L 86 116 Test 02/26/19 06:01 02/26/19 08:04 02/26/19 10:15 02/26/19 12:23 White Blood Count 4.4 L Red Blood Count 3.90 L Hemoglobin 9.3 L Hematocrit 30.0 L Mean Corpuscular 76.9 L Volume Mean Corpuscular 23.8 L Hemoglobin Mean Corpuscular 31.0 L Hemoglobin Concent Red Cell 20.9 H Distribution Width Platelet Count 136 L Mean Platelet Volume 9.7 Immature 0.500 H Granulocytes % Neutrophils % Segmented 73 Neutrophils % (Manual) Band Neutrophils % 4 (Manual) Lymphocytes % Lymphocytes % 16 (Manual) Reactive Lymphocytes 1 H % (Manual) Monocytes % Monocytes % (Manual) 6 Eosinophils % Basophils % Nucleated Red Blood 0.0 Cells % Immature 0.020 Granulocytes # Neutrophils # Neutrophils # 3.2 (Manual) Band Neutrophils # 0.1 Lymphocytes (Manual) 0.7 L Lymphocytes # Reactive Lymphocytes 0.0 # Monocytes # Monocytes # (Manual) 0.2 L Eosinophils # Basophils # Nucleated Red Blood Cells # Platelet Estimate NORMAL Polychromasia 1+ Poikilocytosis 2+ Anisocytosis 1+ Microcytosis 1+ Ovalocytes 1+ Sodium Level 128 L Potassium Level 3.8 Chloride Level 94 L Carbon Dioxide Level 26 Anion Gap 8 Blood Urea Nitrogen 9 Creatinine 0.65 Est Glomerular > 60 Filtrat Rate mL/min Glucose Level 133 # Calcium Level 8.2 L Phosphorus Level 3.6 Magnesium Level 1.6 L Random Cortisol 17.1 Bedside Glucose 115 86 119 Medications Medication Current Medications IV Flush (NS 3 ml) 3 ml PER PROTOCOL IV ; Start 02/06/19 at 15:00 Ondansetron HCl (Zofran Inj) 4 mg Q6H PRN IV NAUSEA/VOMITING Last administered on 02/26/19at 09:34; Admin Dose 4 MG; Start 02/06/19 at 15:00 Acetaminophen (Tylenol Tab) 650 mg Q6H PRN PO .PAIN 1-3 OR TEMP Last administered on 02/26/19at 08:08; Admin Dose 650 MG; Start 02/06/19 at 15:00 Atorvastatin Calcium (Lipitor) 10 mg DAILY@21 PO Last administered on 02/25/19at 21:49; Admin Dose 10 MG; Start 02/06/19 at 21:00 Miscellaneous Information 1 ea NOTE XX ; Start 02/06/19 at 16:00 Glucose (Glutose) 15 gm Q15M PRN PO DECREASED GLUCOSE; Start 02/06/19 at 16:00 Glucose (Glutose) 22.5 gm Q15M PRN PO DECREASED GLUCOSE; Start 02/06/19 at 16:00 Dextrose (D50w Syringe) 25 ml Q15M PRN IV DECREASED GLUCOSE; Start 02/06/19 at 16:00 Dextrose (D50w Syringe) 50 ml Q15M PRN IV DECREASED GLUCOSE; Start 02/06/19 at 16:00 Glucagon (Glucagen) 1 mg Q15M PRN IM DECREASED GLUCOSE; Start 02/06/19 at 16:00 Glucose (Glutose) 15 gm Q15M PRN BUCCAL DECREASED GLUCOSE Last administered on 02/22/19 23:24; Admin Dose 15 GM; Start 02/06/19 at 16:00 Pantoprazole (Protonix Tab) 40 mg BID@0600,1800 PO Last administered on 02/26/19 05:17; Admin Dose 40 MG; Start 02/07/19 at 06:00 Miscellaneous Information (* Miscellaneous Pharmacy Order) Treatment of Hypoglycemia: 1.BG 51... Per protocol XX ; Start 02/08/19 at 09:00 Dextrose (D50w Syringe) 25 ml Q15M PRN IV .DECREASED GLUCOSE; Start 02/08/19 at 09:00 Dextrose (D50w Syringe) 50 ml Q15M PRN IV .DECREASED GLUCOSE; Start 02/08/19 at 09:00 Methimazole (Tapazole) 30 mg BID PO Last administered on 02/26/19 09:34; Admin Dose 30 MG; Start 02/08/19 at 13:30 Heparin Sodium (Porcine) (Heparin (5000 Units/1ml)) 5,000 unit BID SC Last administered on 02/14/19 22:48; Admin Dose 5,000 UNIT; Start 02/11/19 at 09:00; Status Hold Acetaminophen/ Hydrocodone Bitart ([place] (5/325)) 1 tab Q6H PRN PO MODERATE PAIN LEVEL 4-6 Last administered on 02/23/19at 14:08; Admin Dose 1 TAB; Start 02/12/19 at 09:00 Senna (Senokot) 2 tab BID PO Last administered on 02/26/19 08:07; Admin Dose 2 TAB; Start 02/16/19 at 21:00 Insulin Glargine (Lantus) 5 units DAILY@0930 SC Last administered on 02/26/19 10:18; Admin Dose 5 UNITS; Start 02/18/19 at 09:30 Bismuth Subsalicylate (Pepto-Bismol) 30 ml QID PO Last administered on 02/26/19 12:25; Admin Dose 30 ML; Start 02/17/19 at 17:30 Sodium Chloride (Nacl) 1 gm TID PO Last administered on 02/26/19 12:25; Admin Dose 1 GM; Start 02/19/19 at 21:00 Metoprolol Tartrate (Lopressor) 50 mg Q8 PO Last administered on 02/26/19 05:17; Admin Dose 50 MG; Start 02/21/19 at 14:00 Morphine Sulfate (morphine) 2 mg Q4H PRN IV SEVERE PAIN LEVEL 7-10 Last administered on 02/22/19 18:33; Admin Dose 2 MG; Start 02/22/19 at 09:00 Insulin Aspart (Novolog Insulin Pen) NOVOLOG *MILD* ALGORITHM WITH MEALS BEDTIME SC ; Start 02/23/19 at 11:50 Furosemide (Lasix) 20 mg BID DIURETICS IV Last administered on 02/26/19 05:18; Admin Dose 20 MG; Start 02/23/19 at 11:00 Midodrine (Proamatine) 10 mg TID@09,13,17 PO Last administered on 02/26/19 12:25; Admin Dose 10 MG; Start 02/23/19 at 13:00 Insulin Aspart (Novolog Insulin Pen) 4 unit WITH MEALS SC Last administered on 02/26/19 12:39; Admin Dose 4 UNIT; Start 02/23/19 at 17:55 Ascorbic Acid (Vitamin C) 500 mg BID PO Last administered on 02/26/19 08:07; Admin Dose 500 MG; Start 02/24/19 at 21:00; Stop 03/26/19 at 20:59 Ferrous Sulfate (Ferrous Sulfate (Ec)) 325 mg BID PO Last administered on 02/26/19 08:07; Admin Dose 325 MG; Start 02/24/19 at 21:00; Stop 03/26/19 at 20:59 RODRIGUEZ DOTY Feb 26, 2019 16:03
--- NOTE | 2019-02-26 18:01 | CONS ---
Assessment/Plan Assessment/Plan Problems: (1) Graves' disease with exophthalmos Status: Chronic Comment: The patient is back on antithyroid drug therapy after the patient was given iodine contrast twice over the weekend. This negates my ability to treat with radioactive iodine for a period of 8 weeks. Our only other therapeutic approach for the hyperthyroidism would be a surgical thyroid reduction procedure which I am not in favor of. We are still left with a question of what else is going wrong with this patient specifically is fever of unknown origin. The stool for O&P that I ordered 2 days ago has not yet been collected. (2) Diabetes mellitus type 2 in nonobese Status: Chronic Comment: Adequate glycemic control (3) Fever of unknown origin (FUO) Comment: This persist. Again stool for O&P has not been collected by the staff and I understand that infectious disease went ahead and reordered the test today. I am in agreement with consideration of rheumatology and also would strongly suggest trans-thoracic ultrasound and thoracentesis. Consultation Date/Type/Reason Admit Date/Time Feb 06, 2019 at 14:46 Initial Consult Date 02/06/19 Type of Consult Endocrine Reason for Consultation Hyperthyroidism; iron deficiency anemia; fever of unknown origin; pancytopenia; B symptoms Requesting Provider: KIRK AREVALO MD Date/Time of Note DATE: 02/26/19 TIME: 17:59 24 HR Interval Summary Free Text/Dictation Patient continues to have fevers with shaking chills Detailed Summary Endocrine: no complaints Exam/Review of Systems Exam Vitals Vital Signs Date Temp Pulse Resp B/P (MAP) Pulse Ox O2 O2 Flow FiO2 Time Delivery Rate 02/26/19 76 16:06 02/26/19 98.4 18 106/66 94 15:18 (79) 02/26/19 Nasal 2.0 08:30 Cannula Intake and Output 02/25/19 02/25/19 02/26/19 1515:00 23:00 07:00 IntakeIntake Total 846 ml 500 ml BalanceBalance 846 ml 500 ml Exam No change in examination Results Result Diagram: 02/26/19 0602/26/19600 Results 24hrs Laboratory Tests Test 02/25/19 21:46 02/25/19 22:11 02/25/19 22:34 02/26/19 06:01 Bedside Glucose 64 L 86 116 White Blood Count 4.4 L Red Blood Count 3.90 L Hemoglobin 9.3 L Hematocrit 30.0 L Mean Corpuscular 76.9 L Volume Mean Corpuscular 23.8 L Hemoglobin Mean Corpuscular 31.0 L Hemoglobin Concent Red Cell 20.9 H Distribution Width Platelet Count 136 L Mean Platelet Volume 9.7 Immature 0.500 H Granulocytes % Neutrophils % Segmented 73 Neutrophils % (Manual) Band Neutrophils % 4 (Manual) Lymphocytes % Lymphocytes % 16 (Manual) Reactive Lymphocytes 1 H % (Manual) Monocytes % Monocytes % (Manual) 6 Eosinophils % Basophils % Nucleated Red Blood 0.0 Cells % Immature 0.020 Granulocytes # Neutrophils # Neutrophils # 3.2 (Manual) Band Neutrophils # 0.1 Lymphocytes (Manual) 0.7 L Lymphocytes # Reactive Lymphocytes 0.0 # Monocytes # Monocytes # (Manual) 0.2 L Eosinophils # Basophils # Nucleated Red Blood Cells # Platelet Estimate NORMAL Polychromasia 1+ Poikilocytosis 2+ Anisocytosis 1+ Microcytosis 1+ Ovalocytes 1+ Sodium Level 128 L Potassium Level 3.8 Chloride Level 94 L Carbon Dioxide Level 26 Anion Gap 8 Blood Urea Nitrogen 9 Creatinine 0.65 Est Glomerular > 60 Filtrat Rate mL/min Glucose Level 133 # Calcium Level 8.2 L Phosphorus Level 3.6 Magnesium Level 1.6 L Random Cortisol 17.1 Test 02/26/19 08:04 02/26/19 10:15 02/26/19 12:23 02/26/19 16:22 Bedside Glucose 115 86 119 Lactic Acid Level 3.8 *H Ferritin Pending Hepatitis B Surface Pending Antigen Hepatitis B Core Pending Total Antibody Hepatitis C Antibody Pending Test 02/26/19 17:15 02/26/19 17:36 Bedside Glucose 64 L 90 Medications Medication Current Medications IV Flush (NS 3 ml) 3 ml PER PROTOCOL IV ; Start 02/06/19 at 15:00 Ondansetron HCl (Zofran Inj) 4 mg Q6H PRN IV NAUSEA/VOMITING Last administered on 02/26/19at 09:34; Admin Dose 4 MG; Start 02/06/19 at 15:00 Acetaminophen (Tylenol Tab) 650 mg Q6H PRN PO .PAIN 1-3 OR TEMP Last administe red on 02/26/19at 08:08; Admin Dose 650 MG; Start 02/06/19 at 15:00 Atorvastatin Calcium (Lipitor) 10 mg DAILY@21 PO Last administered on 02/25/19at 21:49; Admin Dose 10 MG; Start 02/06/19 at 21:00 Miscellaneous Information 1 ea NOTE XX ; Start 02/06/19 at 16:00 Glucose (Glutose) 15 gm Q15M PRN PO DECREASED GLUCOSE; Start 02/06/19 at 16:00 Glucose (Glutose) 22.5 gm Q15M PRN PO DECREASED GLUCOSE; Start 02/06/19 at 16:00 Dextrose (D50w Syringe) 25 ml Q15M PRN IV DECREASED GLUCOSE Last administered on 02/26/19at 17:21; Admin Dose 25 ML; Start 02/06/19 at 16:00 Dextrose (D50w Syringe) 50 ml Q15M PRN IV DECREASED GLUCOSE; Start 02/06/19 at 16:00 Glucagon (Glucagen) 1 mg Q15M PRN IM DECREASED GLUCOSE; Start 02/06/19 at 16:00 Glucose (Glutose) 15 gm Q15M PRN BUCCAL DECREASED GLUCOSE Last administered on 02/22/19at 23:24; Admin Dose 15 GM; Start 02/06/19 at 16:00 Pantoprazole (Protonix Tab) 40 mg BID@0600,1800 PO Last administered on 02/26/19at 05:17; Admin Dose 40 MG; Start 02/07/19 at 06:00 Miscellaneous Information (* Miscellaneous Pharmacy Order) Treatment of Hypoglycemia: 1.BG 51... Per protocol XX ; Start 02/08/19 at 09:00 Dextrose (D50w Syringe) 25 ml Q15M PRN IV .DECREASED GLUCOSE; Start 02/08/19 at 09:00 Dextrose (D50w Syringe) 50 ml Q15M PRN IV .DECREASED GLUCOSE; Start 02/08/19 at 09:00 Methimazole (Tapazole) 30 mg BID PO Last administered on 02/26/19at 09:34; Admin Dose 30 MG; Start 02/08/19 at 13:30 Heparin Sodium (Porcine) (Heparin (5000 Units/1ml)) 5,000 unit BID SC Last administered on 02/14/19at 22:48; Admin Dose 5,000 UNIT; Start 02/11/19 at 09:00; Status Hold Acetaminophen/ Hydrocodone Bitart ([place] (5/325)) 1 tab Q6H PRN PO MODERATE PAIN LEVEL 4-6 Last administered on 02/23/19 14:08; Admin Dose 1 TAB; Start 02/12/19 at 09:00 Senna (Senokot) 2 tab BID PO Last administered on 02/26/19 08:07; Admin Dose 2 TAB; Start 02/16/19 at 21:00 Insulin Glargine (Lantus) 5 units DAILY@0930 SC Last administered on 02/26/19 10:18; Admin Dose 5 UNITS; Start 02/18/19 at 09:30 Bismuth Subsalicylate (Pepto-Bismol) 30 ml QID PO Last administered on 02/26/19 12:25; Admin Dose 30 ML; Start 02/17/19 at 17:30 Sodium Chloride (Nacl) 1 gm TID PO Last administered on 02/26/19 12:25; Admin Dose 1 GM; Start 02/19/19 at 21:00 Metoprolol Tartrate (Lopressor) 50 mg Q8 PO Last administered on 02/26/19 05:17; Admin Dose 50 MG; Start 02/21/19 at 14:00 Morphine Sulfate (morphine) 2 mg Q4H PRN IV SEVERE PAIN LEVEL 7-10 Last administered on 02/22/19 18:33; Admin Dose 2 MG; Start 02/22/19 at 09:00 Insulin Aspart (Novolog Insulin Pen) NOVOLOG *MILD* ALGORITHM WITH MEALS BEDTIM E SC ; Start 02/23/19 at 11:50 Furosemide (Lasix) 20 mg BID DIURETICS IV Last administered on 02/26/19 17:30; Admin Dose 20 MG; Start 02/23/19 at 11:00 Midodrine (Proamatine) 10 mg TID@,13,17 PO Last administered on 02/26/19 12:25; Admin Dose 10 MG; Start 02/23/19 at 13:00 Insulin Aspart (Novolog Insulin Pen) 4 unit WITH MEALS SC Last administered on 02/26/19 12:39; Admin Dose 4 UNIT; Start 02/23/19 at 17:55 Ascorbic Acid (Vitamin C) 500 mg BID PO Last administered on 02/26/19 08:07; Admin Dose 500 MG; Start 02/24/19 at 21:00; Stop 03/26/19 at 20:59 Ferrous Sulfate (Ferrous Sulfate (Ec)) 325 mg BID PO Last administered on 02/26/19at 08:07; Admin Dose 325 MG; Start 02/24/19 at 21:00; Stop 03/26/19 at 20:59 ANA GARCIA MD Feb 26, 2019 18:01
--- NOTE | 2019-02-26 19:33 | CONS ---
Assessment/Plan Assessment/Plan Assessment/Plan (Daily) Deep tissue injuries right foot, left foot resolved Blister formation - resolved DM2 with peripheral neuropathy HTN Hyperthyroidism Plan Continue with daily dressing changes and offload feet with pillows. No immediate procedures planned from podiatry standpoint. Stable from podiatry standpoint for discharge. Shoe gear recommendations provided to prevent pressure and irritation to the distal aspects of the digit. Consultation Date/Type/Reason Admit Date/Time Feb 06, 2019 at 14:46 Initial Consult Date 02/18/19 Requesting Provider: KIRK AREVALO MD Date/Time of Note DATE: 02/26/19 TIME: 19:33 24 HR Interval Summary Free Text/Dictation No acute events overnight Exam/Review of Systems Exam Vitals Vital Signs Date Temp Pulse Resp B/P (MAP) Pulse Ox O2 O2 Flow FiO2 Time Delivery Rate 02/26/19 76 16:06 02/26/19 98.4 18 106/66 94 15:18 (79) 02/26/19 Nasal 2.0 08:30 Cannula Intake and Output 02/25/19 02/25/19 02/26/19 1515:00 23:00 07:00 IntakeIntake Total 846 ml 500 ml BalanceBalance 846 ml 500 ml Exam Palpable DP/PT pulses bilateral feet CFT less than 3 seconds to digits Absent protective sensations Right distal hallux and 2nd digit tips with deep tissue injury, no signs of c yanosis or gangrene Left distal hallux tip no hematoma or deep tissue injury noted Muscle strength 5/5 in all compartments of the foot. Non invasive studies IMPRESSION: 1. Unremarkable bilateral lower extremity arterial Doppler ultrasound. Results Result Diagram: 02/26/19 0601 02/26/19 0601 Results 24hrs Laboratory Tests Test 02/25/19 21:46 02/25/19 22:11 02/25/19 22:34 02/26/19 06:01 Bedside Glucose 64 L 86 116 White Blood Count 4.4 L Red Blood Count 3.90 L Hemoglobin 9.3 L Hematocrit 30.0 L Mean Corpuscular 76.9 L Volume Mean Corpuscular 23.8 L Hemoglobin Mean Corpuscular 31.0 L Hemoglobin Concent Red Cell 20.9 H Distribution Width Platelet Count 136 L Mean Platelet Volume 9.7 Immature 0.500 H Granulocytes % Neutrophils % Segmented 73 Neutrophils % (Manual) Band Neutrophils % 4 (Manual) Lymphocytes % Lymphocytes % 16 (Manual) Reactive Lymphocytes 1 H % (Manual) Monocytes % Monocytes % (Manual) 6 Eosinophils % Basophils % Nucleated Red Blood 0.0 Cells % Immature 0.020 Granulocytes # Neutrophils # Neutrophils # 3.2 (Manual) Band Neutrophils # 0.1 Lymphocytes (Manual) 0.7 L Lymphocytes # Reactive Lymphocytes 0.0 # Monocytes # Monocytes # (Manual) 0.2 L Eosinophils # Basophils # Nucleated Red Blood Cells # Platelet Estimate NORMAL Polychromasia 1+ Poikilocytosis 2+ Anisocytosis 1+ Microcytosis 1+ Ovalocytes 1+ Sodium Level 128 L Potassium Level 3.8 Chloride Level 94 L Carbon Dioxide Level 26 Anion Gap 8 Blood Urea Nitrogen 9 Creatinine 0.65 Est Glomerular > 60 Filtrat Rate mL/min Glucose Level 133 # Calcium Level 8.2 L Phosphorus Level 3.6 Magnesium Level 1.6 L Random Cortisol 17.1 Test 02/26/19 08:04 02/26/19 10:15 02/26/19 12:23 02/26/19 16:22 Bedside Glucose 115 86 119 Erythrocyte 60 H Sedimentation Rate Lactic Acid Level 3.8 *H Ferritin 2750.0 H Hepatitis B Surface NEGATIVE Antigen Hepatitis B Core NEGATIVE Total Antibody Hepatitis C Antibody NEGATIVE Test 02/26/19 17:15 02/26/19 17:36 02/26/19 18:34 Bedside Glucose 64 L 90 76 Medications Medication Current Medications IV Flush (NS 3 ml) 3 ml PER PROTOCOL IV ; Start 02/06/19 at 15:00 Ondansetron HCl (Zofran Inj) 4 mg Q6H PRN IV NAUSEA/VOMITING Last administered on 02/26/19at 09:34; Admin Dose 4 MG; Start 02/06/19 at 15:00 Acetaminophen (Tylenol Tab) 650 mg Q6H PRN PO .PAIN 1-3 OR TEMP Last administered on 02/26/19at 08:08; Admin Dose 650 MG; Start 02/06/19 at 15:00 Atorvastatin Calcium (Lipitor) 10 mg DAILY@21 PO Last administered on 02/25/19at 21:49; Admin Dose 10 MG; Start 02/06/19 at 21:00 Miscellaneous Information 1 ea NOTE XX ; Start 02/06/19 at 16:00 Glucose (Glutose) 15 gm Q15M PRN PO DECREASED GLUCOSE; Start 02/06/19 at 16:00 Glucose (Glutose) 22.5 gm Q15M PRN PO DECREASED GLUCOSE; Start 02/06/19 at 16:00 Dextrose (D50w Syringe) 25 ml Q15M PRN IV DECREASED GLUCOSE Last administered on 02/26/19at 17:21; Admin Dose 25 ML; Start 02/06/19 at 16:00 Dextrose (D50w Syringe) 50 ml Q15M PRN IV DECREASED GLUCOSE; Start 02/06/19 at 16:00 Glucagon (Glucagen) 1 mg Q15M PRN IM DECREASED GLUCOSE; Start 02/06/19 at 16:00 Glucose (Glutose) 15 gm Q15M PRN BUCCAL DECREASED GLUCOSE Last administered on 02/22/19 23:24; Admin Dose 15 GM; Start 02/06/19 at 16:00 Pantoprazole (Protonix Tab) 40 mg BID@0600,1800 PO Last administered on 02/26/19at 18:29; Admin Dose 40 MG; Start 02/07/19 at 06:00 Miscellaneous Information (* Miscellaneous Pharmacy Order) Treatment of Hypoglycemia: 1.BG 51... Per protocol XX ; Start 02/08/19 at 09:00 Dextrose (D50w Syringe) 25 ml Q15M PRN IV .DECREASED GLUCOSE; Start 02/08/19 at 09:00 Dextrose (D50w Syringe) 50 ml Q15M PRN IV .DECREASED GLUCOSE; Start 02/08/19 at 09:00 Methimazole (Tapazole) 30 mg BID PO Last administered on 02/26/19at 09:34; Admin Dose 30 MG; Start 02/08/19 at 13:30 Heparin Sodium (Porcine) (Heparin (5000 Units/1ml)) 5,000 unit BID SC Last administered on 02/14/19at 22:48; Admin Dose 5,000 UNIT; Start 02/11/19 at 09:00; Status Hold Acetaminophen/ Hydrocodone Bitart ([place] (5/325)) 1 tab Q6H PRN PO MODERATE PAIN LEVEL 4-6 Last administered on 02/23/19at 14:08; Admin Dose 1 TAB; Start 02/12/19 at 09:00 Senna (Senokot) 2 tab BID PO Last administered on 02/26/19at 08:07; Admin Dose 2 TAB; Start 02/16/19 at 21:00 Insulin Glargine (Lantus) 5 units DAILY@0930 SC Last administered on 02/26/19 10:18; Admin Dose 5 UNITS; Start 02/18/19 at 09:30 Bismuth Subsalicylate (Pepto-Bismol) 30 ml QID PO Last administered on 02/26/19 12:25; Admin Dose 30 ML; Start 02/17/19 at 17:30 Sodium Chloride (Nacl) 1 gm TID PO Last administered on 02/26/19 12:25; Admin Dose 1 GM; Start 02/19/19 at 21:00 Metoprolol Tartrate (Lopressor) 50 mg Q8 PO Last administered on 02/26/19 05:17; Admin Dose 50 MG; Start 02/21/19 at 14:00 Morphine Sulfate (morphine) 2 mg Q4H PRN IV SEVERE PAIN LEVEL 7-10 Last administered on 02/22/19 18:33; Admin Dose 2 MG; Start 02/22/19 at 09:00 Insulin Aspart (Novolog Insulin Pen) NOVOLOG *MILD* ALGORITHM WITH MEALS BEDTIME SC ; Start 02/23/19 at 11:50 Furosemide (Lasix) 20 mg BID DIURETICS IV Last administered on 02/26/19 17:30; Admin Dose 20 MG; Start 02/23/19 at 11:00 Midodrine (Proamatine) 10 mg TID@,,17 PO Last administered on 02/26/19 12:25; Admin Dose 10 MG; Start 02/23/19 at 13:00 Insulin Aspart (Novolog Insulin Pen) 4 unit WITH MEALS SC Last administered on 02/26/19 12:39; Admin Dose 4 UNIT; Start 02/23/19 at 17:55 Ascorbic Acid (Vitamin C) 500 mg BID PO Last administered on 02/26/19 08:07; Admin Dose 500 MG; Start 02/24/19 at 21:00; Stop 03/26/19 at 20:59 Ferrous Sulfate (Ferrous Sulfate (Ec)) 325 mg BID PO Last administered on 02/26/19 08:07; Admin Dose 325 MG; Start 02/24/19 at 21:00; Stop 03/26/19 at 20:59 JESU HELM DPEleuterio Feb 26, 2019 19:33
[2019-02-26] MEDS: ATORVASTATIN 10 MG TAB PO SCH (21:36)
[2019-02-27] VITALS (10 sets, daily range): BP systolic 92–122; BP diastolic 53–65; PULSE 88–115; RESP 18
[2019-02-27] MEDS ORDERED: SOD CHLORIDE 0.9% 500 ML IV ONE (05:00)
[2019-02-27] MEDS: METOPROLOL 50 MG TAB PO SCH ×3 (06:00→21:01)
[2019-02-27] MEDS: FUROSEMIDE 20 MG INJ IV SCH (06:00)
[2019-02-27] MEDS: PANTOPRAZOLE (EC) 40 MG TAB PO SCH ×2 (06:01→18:08)
[2019-02-27] MEDS: INSULIN ASPART [NOVOLOG] 3 ML PEN SC SCH ×7 (07:55→20:42)
--- NOTE | 2019-02-27 08:58 | PN ---
DATE: 02/27/2019 SUBJECTIVE: The patient was noted to be hypotensive overnight. The patient was given a bolus of IV fluids. The patient's urinary output has been adequate. No other events noted. OBJECTIVE: VITAL SIGNS: Blood pressure is 122/65, respirations 18, pulse 115, temperature 99.1. HEENT: Head is normocephalic. NECK: Supple. HEART: Regular rate. LUNGS: Show diminished breath sounds at the base. ABDOMEN: Soft, nontender to palpation. No rebound or guarding. EXTREMITIES: Negative for clubbing, cyanosis. Positive scrotal edema. DERMATOLOGIC: No rashes. MUSCULOSKELETAL: No joint effusion. NEUROLOGIC: No change in exam. MEDICATIONS: The patient's medications have been reviewed. LABORATORY DATA: Pending. ASSESSMENT AND PLAN: 1. Hypernatremia. Etiology is felt to be multifactorial secondary to syndrome of inappropriate anti diuretic hormone. Questionable component of hemodynamics and volume depletion. The patient's sodium levels have stabilized with free water restriction, salt tablets. The patient is status post IV flu ids. We will repeat a sodium level and monitor. 2. Hypertension. Etiology may be secondary to volume depletion due to recent diuretic therapy. The patient is status post IV fluids, continue to monitor closely. We will consider holding diuretic th erapy. 3. Hypothyroidism, with Graves' disease. Continue to monitor. Follow up with endocrinology. 4. Thrombocytopenia. Continue to monitor. 5. Systemic inflammatory response syndrome. Etiology is unclear. Continue to monitor. Workup per primary team and infectious disease. 6. Lactic acidosis. Etiology may be secondary to volume depletion, steroids. Continue to trend lac tic acid levels. Continue IV fluids. 7. Diabetes. Continue current insulin regimen. 8. History of arrhythmia. Continue to monitor. Dictated By: DIANNA SAWYER DO NR/NTS Conf#: [id number] DID#: [id number] CC: PURVI QUIGLEY MD; ANA GARCIA MD; RODRIGUEZ DOTY MD;*End*
[2019-02-27] MEDS: ASCORBIC ACID 500 MG TAB PO SCH ×2 (09:22→20:44)
[2019-02-27] MEDS: SODIUM CHLORIDE 1 GM TAB PO SCH ×2 (09:22→13:07)
[2019-02-27] MEDS: SENNA TAB PO SCH ×2 (09:22→20:43)
[2019-02-27] MEDS: METHIMAZOLE 5 MG TAB PO SCH ×2 (09:23→20:43)
[2019-02-27] MEDS: FERROUS SULFATE (EC) 325 MG TAB PO SCH ×2 (09:23→20:44)
[2019-02-27] MEDS: BISMUTH SUBSALICYLATE 240 ML BTL PO SCH ×4 (09:23→20:53)
[2019-02-27] MEDS: MIDODRINE 5 MG TAB PO SCH ×3 (09:35→17:07)
[2019-02-27] MEDS: INSULIN GLARGINE [LANTus] (100 UNITS/ML) SYG SC SCH (09:55)
--- NOTE | 2019-02-27 10:54 | RADRPT ---
Echocardiogram Report Patient Name: CAROLINA GALINDOatient ID: [id number] : 1960 (59y 1m)Study Date: 02/27/2019 8:55:04 AM Gender: MAccession #: [id number] Tech: Sammy Skelton [facility] Location: [facility] Ref.Physician: RODRIGUEZ DOTY Height(Cm): BSA: Weight(Kg): Quality: AdequateAccount #: Procedures: Echocardiographic Report: Transthoracic echocardiogram with complete 2D, M-Mode, and doppler examination. Indications: Evaluate for I.E. Measurements: 2D/M Mode Doppler Measurement Value Normal Range Measurement Value Normal Range LVIDd 2D 3.3 [ 4.2 - 5.8 ] cm AV Peak Kevin 1.3 [ 100.0 - 170.0 ] cm/sec LVIDs 2D 2.5 [ 2.5 - 4.0 ] cm AV Peak PG 7.0 [ 2.0 - 9.0 ] mmHg LVPWd 2D 1.0 [ 0.6 - 1.0 ] cm LVOT Peak Kevin 0.8 [ 70.0 - 110.0 ] cm/sec IVSd 2D 1.0 [ 0.6 - 1.0 ] cm LVOT Peak PG 3.0 [ 2.0 - 6.0 ] mmHg AoR Diam 2D 3.3 [ 2.6 - 3.4 ] cm MV E Peak Kevin 0.6 [ 60.0 - 130.0 ] cm/sec EDV 2D 43.2 [ 62.0 - 150.0 ] ml MV A Peak Kevin 0.9 [ 100.0 - 120.0 ] cm/sec ESV 2D 22.3 [ 21.0 - 61.0 ] ml MV E/A 0.7 [ 0.8 - 1.5 ] ratio EF 2D 48.4 [ 52.0 - 72.0 ] percent MV Decel Time 120 [ 104 - 258 ] msec LA Dimen 2D 3.0 [ 3.0 - 4.0 ] cm Lat E` Kevin 0.1 [ 10.0 - 15.0 ] cm/sec Lateral E/E` 8.2 [ 1.0 - 2.0 ] ratio MV E/A 0.7 [ 0.8 - 1.5 ] ratio TR Peak Kevin 2.7 [ 100.0 - 280.0 ] cm/sec TR Peak PG 30.0 mmHg RVSP 33.0 [ 10.0 - 36.0 ] mmHg Findings: Left Ventricle: Hyperdynamic left ventricular systolic function. Normal left ventricular cavity size. Normal left ventricular wall thickness. Ejection fraction is visually estimated at 70 %. Right Ventricle: Normal right ventricular size. Normal right ventricular systolic function. Left Atrium: The left atrium is normal in size. Right Atrium: The right atrium is normal in size. Mitral Valve: Mild mitral leaflet calcification. Mild mitral annular calcification. Trace mitral regurgitation. Aortic Valve: Normal appearance of the aortic valve. No significant aortic stenosis or insufficiency. Tricuspid Valve: Normal appearance of the tricuspid valve. Estimated peak PA systolic pressure 30 mmHg. There is mild tricuspid regurgitation. Pericardium: Trace-small pericardial effusion. Left pleural effusion seen. Aorta: Normal aortic root. IVC: Normal size and normal respiratory collapse consistent with normal right atrial pressure. Conclusions: Hyperdynamic left ventricular systolic function. Normal left ventricular cavity size. Normal left ventricular wall thickness. Ejection fraction is visually estimated at 70 %. No significant valvular stenosis or regurgitation seen. No Vegetation seen. Trace-small pericardial effusion. Left pleural effusion seen. Estimated peak PA systolic pressure 30 mmHg. Normal size and normal respiratory collapse consistent with normal right atrial pressure. Electronically Signed By: Heladio Li 2019-02-27 10:54:28 PDT
--- NOTE | 2019-02-27 11:02 | CONS ---
[facility] HCIS Consult Follow-up Patient Name: Alejandro Whitaker Unit Number: [id number] Date of : 1960 Patient Status: Admitted Inpatient Attending Doctor: Rashel Browne Edit: BRENDEN RODRIGUEZ M.D. on 02/27/19 @ 21:19 Michael: I discussed the management with MANAGER RESPIRATORY Valdemar and agree Assessment/Plan Assessment/Plan Hospital Course (Demo Recall) assessment/impression: - Recurrent SIRS (lactic acidosis, tachycardia, and fever) - etiology unclear but no infectious disease has been identified and patient is clinically unchang ed - s/p recurrent SIRS (fever and tachycardia); previous ID w/u and imaging were negative; Pt took Vancomycin and Cefepime (12/11/2018-12/14/18) - Mild peno-scrotal edema with possible left epididymitis as suggested on the FARZANA - s/p amoxicillin - Bilateral epididymitis improved on the left and minimally improved on the right compared to the previous study. Marked scrotal wall thickening and edema increased compared to previous study. No evidence of testicular torsion per Testicular US 02/22/19. urine for gonorrhea and chlamydia was negative - Ramesh mod-large pleural effusions per CT chest 02/22/19 - s/p Mild pyuria - urine cx grew <10K Citrobacter Koseri and <10K C. Albicans; pt is asymptomatic - repeat UA without pyuria, cx was negative - s/p bone marrow biopsy 02/20/19 - showed nl cellular marrow with adequate megakaryopoiesis, reduced marrow hemosiderin, reticulin fibrosis, mild, no granulomas identified, no e/o malignancy, no diagnostic immunophenotypic abl detected - s/p H. 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 Penumo ESBL in sputum cx on 12/15/2018, likely colonizer - Hx EBV exposure - Liver cirrhosis with small amount of ascites per US 02/26/2019 - Diminished hearing on L - Sinus congestion per pt - Elevated LDH, ferritin, ESR, CRP, triglycerides - The following is negative: HIV, HIV viral load, procalc <0.10 on 12/12/18, Cryto AG, Brooks-smear, Dengue, malaria, resp virus panel, MTB complex, HSV 1&2 by PCR, CMV, WBC scan on 12/18/2018 Recommendations: - Ordered repeat blood cultures x2, 15 min apart, UA, urine culture, lactic acid - Hold off antibiotics for now as pt is clinically unchanged - Pending: procalcitonin, repeat CRP, RPR, rheumatoid factor, hepatitis panel including hepatitis B viral load and hepatitis C viral load, stool O&P, R. typhus antibody - We recommend diagnostic thoracentesis and please send pleural fluid for culture, fungal culture, AFB stain and culture, cell count, differentials, cytology, parasites - We recommend Rheumatology consult - Consider age appropriate cancer workup (LDH 3388) Management d/w pt's ADDISON Hutchins, Dr. Alvarado, and with Dr. Rodriguez Consultation Date/Type/Reason Admit Date/Time Feb 06, 2019 at 14:46 Initial Consult Date 02/14/19 Type of Consult Infectious Disease Requesting Provider: KIRK AREVALO MD Date/Time of Note DATE: 02/27/19 TIME: 10:59 24 HR Interval Summary Free Text/Dictation Pt c/o upper nasal passage being "blocked" and "dirty", L>R, and requesting for nasal spray. Also reports L hearing is slightly diminished. Denies fever, chills, pain, SOB, n/v/d, dysuria. Exam/Review of Systems Exam Vitals Vital Signs Date Temp Pulse Resp B/P (MAP) Pulse Ox O2 O2 Flow FiO2 Time Delivery Rate 02/27/19 110 08:00 02/27/19 99.1 18 122/65 95 Room Air 07:07 (84) 02/26/19 2.0 19:41 Intake and Output 02/26/19 02/26/19 02/27/19 1515:00 23:00 07:00 IntakeIntake Total 500 ml 1050 ml BalanceBalance 500 ml 1050 ml Constitutional: alert, oriented, well developed, frail Psych: nl mood/affect Head: normocephalic, atraumatic Eyes: nl conjunctiva, nl lids, nl sclera ENMT: nl external ears & nose, nl nasal mucosa & septum, mucosa pink and moist Neck: supple Respiratory: normal air movement, diminished breath sounds (at bases), other (On O2 at 3L via NC) Cardiovascular: regular rate and rhythm (mildly tachycardic), nl pulses Gastrointestinal: soft, non-tender Genitourinary - Male: other (no Collins; +scrotal swelling) Musculoskeletal: nl extremities to inspection; No swelling Neurological: nl mental status Skin: nl turgor; No rash or lesions Results Result Diagram: 02/26/19 0602/26/19600 Results 24hrs Laboratory Tests Test 02/26/19 12:23 02/26/19 16:22 02/26/19 17:15 02/26/19 17:36 Bedside Glucose 119 64 L 90 Erythrocyte 60 H Sedimentation Rate Lactic Acid Level 3.8 *H Ferritin 2750.0 H Lactate 3388 H Dehydrogenase Hepatitis B Surface NEGATIVE Antigen Hepatitis B Core NEGATIVE Total Antibody Hepatitis C Antibody NEGATIVE Test 02/26/19 18:34 02/26/19 19:51 02/26/19 21:34 02/27/19 03:39 Bedside Glucose 76 81 Lactic Acid Level 3.9 *H 5.0 *H Triglycerides Level 254 H Cholesterol Level 122 LDL Cholesterol, 59 Calculated HDL Cholesterol 12 L Cholesterol/HDL 10.1 Ratio Test 02/27/19 08:19 02/27/19 09:21 Bedside Glucose 157 Lactic Acid Level 5.6 *H Imaging Imaging Abd US 02/26/2019: Liver cirrhosis with a small amount of ascites. Moderate right pleural effusion. Contracted gallbladder with thickening of the gallbladder wall. No evidence of gallstones. TTE 02/26/2019: Hyperdynamic left ventricular systolic function. Normal left ventricular cavity size. Normal left ventricular wall thickness. Ejection fraction is visually estimated at 70 %. No significant valvular stenosis or regurgitation seen. No Vegetation seen. Trace-small pericardial effusion. Left pleural effusion seen. Estimated peak PA systolic pressure 30 mmHg. Normal size and normal respiratory collapse consistent with normal right atrial pressure. Medications Medication Current Medications IV Flush (NS 3 ml) 3 ml PER PROTOCOL IV ; Start 02/06/19 at 15:00 Ondansetron HCl (Zofran Inj) 4 mg Q6H PRN IV NAUSEA/VOMITING Last administered on 02/26/19at 09:34; Admin Dose 4 MG; Start 02/06/19 at 15:00 Acetaminophen (Tylenol Tab) 650 mg Q6H PRN PO .PAIN 1-3 OR TEMP Last admin istered on 02/26/19at 08:08; Admin Dose 650 MG; Start 02/06/19 at 15:00 Atorvastatin Calcium (Lipitor) 10 mg DAILY@21 PO Last administered on 02/26/19at 21:36; Admin Dose 10 MG; Start 02/06/19 at 21:00 Miscellaneous Information 1 ea NOTE XX ; Start 02/06/19 at 16:00 Glucose (Glutose) 15 gm Q15M PRN PO DECREASED GLUCOSE; Start 02/06/19 at 16:00 Glucose (Glutose) 22.5 gm Q15M PRN PO DECREASED GLUCOSE; Start 02/06/19 at 16:00 Dextrose (D50w Syringe) 25 ml Q15M PRN IV DECREASED GLUCOSE Last administered on 02/26/19at 17:21; Admin Dose 25 ML; Start 02/06/19 at 16:00 Dextrose (D50w Syringe) 50 ml Q15M PRN IV DECREASED GLUCOSE; Start 02/06/19 at 16:00 Glucagon (Glucagen) 1 mg Q15M PRN IM DECREASED GLUCOSE; Start 02/06/19 at 16:00 Glucose (Glutose) 15 gm Q15M PRN BUCCAL DECREASED GLUCOSE Last administered on 02/22/19at 23:24; Admin Dose 15 GM; Start 02/06/19 at 16:00 Pantoprazole (Protonix Tab) 40 mg BID@0600,1800 PO Last administered on 02/27/19at 06:01; Admin Dose 40 MG; Start 02/07/19 at 06:00 Miscellaneous Information (* Miscellaneous Pharmacy Order) Treatment of Hypoglycemia: 1.BG 51... Per protocol XX ; Start 02/08/19 at 09:00 Dextrose (D50w Syringe) 25 ml Q15M PRN IV .DECREASED GLUCOSE; Start 02/08/19 at 09:00 Dextrose (D50w Syringe) 50 ml Q15M PRN IV .DECREASED GLUCOSE; Start 02/08/19 at 09:00 Methimazole (Tapazole) 30 mg BID PO Last administered on 02/27/19 09:23; Admin Dose 30 MG; Start 02/08/19 at 13:30 Heparin Sodium (Porcine) (Heparin (5000 Units/1ml)) 5,000 unit BID SC Last administered on 02/14/19 22:48; Admin Dose 5,000 UNIT; Start 02/11/19 at 09:00; Status Hold Acetaminophen/ Hydrocodone Bitart ([place] (5/325)) 1 tab Q6H PRN PO MODERATE PAIN LEVEL 4-6 Last administered on 02/23/19 14:08; Admin Dose 1 TAB; Start 02/12/19 at 09:00 Senna (Senokot) 2 tab BID PO Last administered on 02/27/19 09:22; Admin Dose 2 TAB; Start 02/16/19 at 21:00 Insulin Glargine (Lantus) 5 units DAILY@0930 SC Last administered on 02/27/19 09:55; Admin Dose 5 UNITS; Start 02/18/19 at 09:30 Bismuth Subsalicylate (Pepto-Bismol) 30 ml QID PO Last administered on 02/27/19 09:23; Admin Dose 30 ML; Start 02/17/19 at 17:30 Sodium Chloride (Nacl) 1 gm TID PO Last administered on 02/27/19 09:22; Admin Dose 1 GM; Start 02/19/19 at 21:00 Metoprolol Tartrate (Lopressor) 50 mg Q8 PO Last administered on 02/26/19 05:17; Admin Dose 50 MG; Start 02/21/19 at 14:00 Morphine Sulfate (morphine) 2 mg Q4H PRN IV SEVERE PAIN LEVEL 7-10 Last administered on 02/22/19 18:33; Admin Dose 2 MG; Start 02/22/19 at 09:00 Insulin Aspart (Novolog Insulin Pen) NOVOLOG *MILD* ALGORITHM WITH MEALS BE DTIME SC ; Start 02/23/19 at 11:50 Furosemide (Lasix) 20 mg BID DIURETICS IV Last administered on 02/27/19 06:00; Admin Dose 20 MG; Start 02/23/19 at 11:00; Status Hold Midodrine (Proamatine) 10 mg TID@09,13,17 PO Last administered on 02/27/19 09:35; Admin Dose 10 MG; Start 02/23/19 at 13:00 Insulin Aspart (Novolog Insulin Pen) 4 unit WITH MEALS SC Last administered on 02/27/19 08:44; Admin Dose 4 UNIT; Start 02/23/19 at 17:55 Ascorbic Acid (Vitamin C) 500 mg BID PO Last administered on 02/27/19 09:22; Admin Dose 500 MG; Start 02/24/19 at 21:00; Stop 03/26/19 at 20:59 Ferrous Sulfate (Ferrous Sulfate (Ec)) 325 mg BID PO Last administered on 02/27/19 09:23; Admin Dose 325 MG; Start 02/24/19 at 21:00; Stop 03/26/19 at 20:59 NESTOR HUGHES NP Feb 27, 2019 11:02
--- NOTE | 2019-02-27 12:31 | CONS ---
Assessment/Plan Assessment/Plan Problems: (1) Graves' disease with exophthalmos Status: Chronic Comment: On antithyroid drug therapy will need to be on that for another 8 weeks after I evaluate contrast and CT scan studies (2) Diabetes mellitus type 2 in nonobese Status: Chronic Comment: Adequate control (3) Fever of unknown origin (FUO) Status: Acute Comment: Attempting to get work-up done. Please consider getting ultrasound- guided thoracentesis as a diagnostic evaluation including sending the fluid for AFB stain and culture Consultation Date/Type/Reason Admit Date/Time Feb 06, 2019 at 14:46 Initial Consult Date 02/06/19 Type of Consult Endocrine Reason for Consultation Graves' disease with hyperthyroidism; fever of unknown origin; anasarca; pancytopenia Requesting Provider: KIRK AREVALO MD Date/Time of Note DATE: 02/27/19 TIME: 12:29 24 HR Interval Summary Free Text/Dictation Patient has not been ambulatory Constitutional: no complaints Detailed Summary Endocrine: no complaints Exam/Review of Systems Exam Vitals Vital Signs Date Temp Pulse Resp B/P (MAP) Pulse Ox O2 O2 Flow FiO2 Time Delivery Rate 02/27/19 105 12:00 02/27/19 97.8 18 96/56 (69) 98 Nasal 3.0 11:29 Cannula Intake and Output 02/26/19 02/26/19 02/27/19 1515:00 23:00 07:00 IntakeIntake Total 500 ml 1050 ml BalanceBalance 500 ml 1050 ml Constitutional: alert, oriented Gastrointestinal: soft, nl liver, spleen, non-tender Extremities: other (Pillow underneath the knees of the heels directly in contact with the bed) Results Result Diagram: 02/26/19 0601 02/26/19 0601 Results 24hrs Laboratory Tests Test 02/26/19 16:22 02/26/19 17:15 02/26/19 17:36 02/26/19 18:34 Erythrocyte 60 H Sedimentation Rate Lactic Acid Level 3.8 *H Ferritin 2750.0 H Lactate 3388 H Dehydrogenase Hepatitis B Surface NEGATIVE Antigen Hepatitis B Core NEGATIVE Total Antibody Hepatitis C Antibody NEGATIVE Bedside Glucose 64 L 90 76 Test 02/26/19 19:51 02/26/19 21:34 02/27/19 03:39 02/27/19 08:19 Lactic Acid Level 3.9 *H 5.0 *H Bedside Glucose 81 157 Triglycerides Level 254 H Cholesterol Level 122 LDL Cholesterol, 59 Calculated HDL Cholesterol 12 L Cholesterol/HDL 10.1 Ratio Test 02/27/19 09:21 02/27/19 12:23 Lactic Acid Level 5.6 *H Bedside Glucose 126 Medications Medication Current Medications IV Flush (NS 3 ml) 3 ml PER PROTOCOL IV ; Start 02/06/19 at 15:00 Ondansetron HCl (Zofran Inj) 4 mg Q6H PRN IV NAUSEA/VOMITING Last administered on 02/26/19at 09:34; Admin Dose 4 MG; Start 02/06/19 at 15:00 Acetaminophen (Tylenol Tab) 650 mg Q6H PRN PO .PAIN 1-3 OR TEMP Last administered on 02/26/19at 08:08; Admin Dose 650 MG; Start 02/06/19 at 15:00 Atorvastatin Calcium (Lipitor) 10 mg DAILY@21 PO Last administered on 02/26/19at 21:36; Admin Dose 10 MG; Start 02/06/19 at 21:00 Miscellaneous Information 1 ea NOTE XX ; Start 02/06/19 at 16:00 Glucose (Glutose) 15 gm Q15M PRN PO DECREASED GLUCOSE; Start 02/06/19 at 16:00 Glucose (Glutose) 22.5 gm Q15M PRN PO DECREASED GLUCOSE; Start 02/06/19 at 16:00 Dextrose (D50w Syringe) 25 ml Q15M PRN IV DECREASED GLUCOSE Last administered on 02/26/19at 17:21; Admin Dose 25 ML; Start 02/06/19 at 16:00 Dextrose (D50w Syringe) 50 ml Q15M PRN IV DECREASED GLUCOSE; Start 02/06/19 at 16:00 Glucagon (Glucagen) 1 mg Q15M PRN IM DECREASED GLUCOSE; Start 02/06/19 at 16:00 Glucose (Glutose) 15 gm Q15M PRN BUCCAL DECREASED GLUCOSE Last administered on 02/22/19at 23:24; Admin Dose 15 GM; Start 02/06/19 at 16:00 Pantoprazole (Protonix Tab) 40 mg BID@0600,1800 PO Last administered on 02/27/19at 06:01; Admin Dose 40 MG; Start 02/07/19 at 06:00 Miscellaneous Information (* Miscellaneous Pharmacy Order) Treatment of Hypoglycemia: 1.BG 51... Per protocol XX ; Start 02/08/19 at 09:00 Dextrose (D50w Syringe) 25 ml Q15M PRN IV .DECREASED GLUCOSE; Start 02/08/19 at 09:00 Dextrose (D50w Syringe) 50 ml Q15M PRN IV .DECREASED GLUCOSE; Start 02/08/19 at 09:00 Methimazole (Tapazole) 30 mg BID PO Last administered on 02/27/19 09:23; Admin Dose 30 MG; Start 02/08/19 at 13:30 Heparin Sodium (Porcine) (Heparin (5000 Units/1ml)) 5,000 unit BID SC Last administered on 02/14/19 22:48; Admin Dose 5,000 UNIT; Start 02/11/19 at 09:00; Status Hold Acetaminophen/ Hydrocodone Bitart ([place] (5/325)) 1 tab Q6H PRN PO MODERATE PAIN LEVEL 4-6 Last administered on 02/23/19 14:08; Admin Dose 1 TAB; Start 02/12/19 at 09:00 Senna (Senokot) 2 tab BID PO Last administered on 02/27/19 09:22; Admin Dose 2 TAB; Start 02/16/19 at 21:00 Insulin Glargine (Lantus) 5 units DAILY@0930 SC Last administered on 02/27/19 09:55; Admin Dose 5 UNITS; Start 02/18/19 at 09:30 Bismuth Subsalicylate (Pepto-Bismol) 30 ml QID PO Last administered on 02/27/19 09:23; Admin Dose 30 ML; Start 02/17/19 at 17:30 Sodium Chloride (Nacl) 1 gm TID PO Last administered on 02/27/19 09:22; Admin Dose 1 GM; Start 02/19/19 at 21:00 Metoprolol Tartrate (Lopressor) 50 mg Q8 PO Last administered on 02/26/19 05:17; Admin Dose 50 MG; Start 02/21/19 at 14:00 Morphine Sulfate (morphine) 2 mg Q4H PRN IV SEVERE PAIN LEVEL 7-10 Last administered on 02/22/19 18:33; Admin Dose 2 MG; Start 02/22/19 at 09:00 Insulin Aspart (Novolog Insulin Pen) NOVOLOG *MILD* ALGORITHM WITH MEALS BEDTIME SC ; Start 02/23/19 at 11:50 Furosemide (Lasix) 20 mg BID DIURETICS IV Last administered on 02/27/19 06:00; Admin Dose 20 MG; Start 02/23/19 at 11:00; Status Hold Midodrine (Proamatine) 10 mg TID@09,13,17 PO Last administered on 02/27/19 09:35; Admin Dose 10 MG; Start 02/23/19 at 13:00 Insulin Aspart (Novolog Insulin Pen) 4 unit WITH MEALS SC Last administered on 02/27/19 08:44; Admin Dose 4 UNIT; Start 02/23/19 at 17:55 Ascorbic Acid (Vitamin C) 500 mg BID PO Last administered on 02/27/19 09:22; Admin Dose 500 MG; Start 02/24/19 at 21:00; Stop 03/26/19 at 20:59 Ferrous Sulfate (Ferrous Sulfate (Ec)) 325 mg BID PO Last administered on 02/27/19 09:23; Admin Dose 325 MG; Start 02/24/19 at 21:00; Stop 03/26/19 at 20:59 ANA GARCIA MD Feb 27, 2019 12:31
[2019-02-27] MEDS ORDERED: MAGNESIUM CITRATE 300 ML BTL PO ONE (14:00)
--- NOTE | 2019-02-27 15:42 | CONS ---
Assessment/Plan Assessment/Plan Hospital Course (Demo Recall) assessment/impression - s/p recurrent SIRS (fever and tachycardia); previous ID w/u and imaging were negative; Pt took Vancomycin and Cefepime (12/11/2018-12/14/18) - Mild peno-scrotal edema with possible left epididymitis as suggested on the FARZANA - s/p amoxicillin - Bilateral epididymitis improved on the left and minimally improved on the right compared to the previous study. Marked scrotal wall thickening and edema increased compared to previous study. No evidence of testicular torsion per T esticular US 02/22/19. urine for gonorrhea and chlamydia was negative - Ramesh mod-large pleural effusions per CT chest 02/22/19 - s/p Mild pyuria - urine cx grew <10K Citrobacter Koseri and <10K C. Albicans; pt is asymptomatic - repeat UA without pyuria, cx was negative - s/p bone marrow biopsy 02/20/19 - showed nl cellular marrow with adequate megakaryopoiesis, reduced marrow hemosiderin, reticulin fibrosis, mild, no granulomas identified, no e/o malignancy, no diagnostic immunophenotypic abl detected - s/p H. 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 Penumo ESBL in sputum cx on 12/15/2018, likely colonizer - Hx EBV exposure - The following is negative: HIV, HIV viral load, procalc <0.10 on 12/12/18, Cryto AG, Lipscomb-smear, Dengue, malaria, resp virus panel, MTB complex, HSV 1&2 by PCR, CMV, WBC scan on 12/18/2018 additional recommendations: - please refer to ESTHER Bonilla's recommendations from 02/27/2019. - I recommend diagnostic thoracentesis. Dr. Browne informed me he would order it. I ordered fluid tests on [employer] Consultation Date/Type/Reason Admit Date/Time Feb 06, 2019 at 14:46 Initial Consult Date 02/18/19 Requesting Provider: KIRK AREVALO MD Date/Time of Note DATE: 02/27/19 TIME: 15:40 Exam/Review of Systems Exam Vitals Vital Signs Date Temp Pulse Resp B/P (MAP) Pulse Ox O2 O2 Flow FiO2 Time Delivery Rate 02/27/19 97.5 112 18 100/59 93 Room Air 15:07 (73) 02/27/19 3.0 11:29 Intake and Output 02/26/19 02/26/19 02/27/19 1515:00 23:00 07:00 IntakeIntake Total 500 ml 1050 ml BalanceBalance 500 ml 1050 ml Results Result Diagram: 02/26/1960002/26/19 06 Results 24hrs Laboratory Tests Test 02/26/19 16:22 02/26/19 17:15 02/26/19 17:36 02/26/19 18:34 Erythrocyte 60 H Sedimentation Rate Lactic Acid Level 3.8 *H Ferritin 2750.0 H Lactate 3388 H Dehydrogenase Hepatitis B Surface NEGATIVE Antigen Hepatitis B Core NEGATIVE Total Antibody Hepatitis C Antibody NEGATIVE Bedside Glucose 64 L 90 76 Test 02/26/19 19:51 02/26/19 21:34 02/27/19 03:39 02/27/19 08:19 Lactic Acid Level 3.9 *H 5.0 *H Bedside Glucose 81 157 Triglycerides Level 254 H Cholesterol Level 122 LDL Cholesterol, 59 Calculated HDL Cholesterol 12 L Cholesterol/HDL 10.1 Ratio Test 02/27/19 09:21 02/27/19 12:23 02/27/19 14:10 Lactic Acid Level 5.6 *H 4.7 *H Bedside Glucose 126 Medications Medication Current Medications IV Flush (NS 3 ml) 3 ml PER PROTOCOL IV ; Start 02/06/19 at 15:00 Ondansetron HCl (Zofran Inj) 4 mg Q6H PRN IV NAUSEA/VOMITING Last administered on 02/26/19at 09:34; Admin Dose 4 MG; Start 02/06/19 at 15:00 Acetaminophen (Tylenol Tab) 650 mg Q6H PRN PO .PAIN 1-3 OR TEMP Last admi nistered on 02/26/19at 08:08; Admin Dose 650 MG; Start 02/06/19 at 15:00 Atorvastatin Calcium (Lipitor) 10 mg DAILY@21 PO Last administered on 02/26/19at 21:36; Admin Dose 10 MG; Start 02/06/19 at 21:00 Miscellaneous Information 1 ea NOTE XX ; Start 02/06/19 at 16:00 Glucose (Glutose) 15 gm Q15M PRN PO DECREASED GLUCOSE; Start 02/06/19 at 16:00 Glucose (Glutose) 22.5 gm Q15M PRN PO DECREASED GLUCOSE; Start 02/06/19 at 16:00 Dextrose (D50w Syringe) 25 ml Q15M PRN IV DECREASED GLUCOSE Last administered on 02/26/19at 17:21; Admin Dose 25 ML; Start 02/06/19 at 16:00 Dextrose (D50w Syringe) 50 ml Q15M PRN IV DECREASED GLUCOSE; Start 02/06/19 at 16:00 Glucagon (Glucagen) 1 mg Q15M PRN IM DECREASED GLUCOSE; Start 02/06/19 at 16:00 Glucose (Glutose) 15 gm Q15M PRN BUCCAL DECREASED GLUCOSE Last administered on 02/22/19at 23:24; Admin Dose 15 GM; Start 02/06/19 at 16:00 Pantoprazole (Protonix Tab) 40 mg BID@0600,1800 PO Last administered on 02/27/19at 06:01; Admin Dose 40 MG; Start 02/07/19 at 06:00 Miscellaneous Information (* Miscellaneous Pharmacy Order) Treatment of Hypoglycemia: 1.BG 51... Per protocol XX ; Start 02/08/19 at 09:00 Dextrose (D50w Syringe) 25 ml Q15M PRN IV .DECREASED GLUCOSE; Start 02/08/19 at 09:00 Dextrose (D50w Syringe) 50 ml Q15M PRN IV .DECREASED GLUCOSE; Start 02/08/19 at 09:00 Methimazole (Tapazole) 30 mg BID PO Last administered on 02/27/19at 09:23; Admin Dose 30 MG; Start 02/08/19 at 13:30 Heparin Sodium (Porcine) (Heparin (5000 Units/1ml)) 5,000 unit BID SC Last administered on 02/14/19at 22:48; Admin Dose 5,000 UNIT; Start 02/11/19 at 09:00; Status Hold Acetaminophen/ Hydrocodone Bitart ([place] (5/325)) 1 tab Q6H PRN PO MODERATE PAIN LEVEL 4-6 Last administered on 02/23/19 14:08; Admin Dose 1 TAB; Start 02/12/19 at 09:00 Senna (Senokot) 2 tab BID PO Last administered on 02/27/19 09:22; Admin Dose 2 TAB; Start 02/16/19 at 21:00 Insulin Glargine (Lantus) 5 units DAILY@0930 SC Last administered on 02/27/19 09:55; Admin Dose 5 UNITS; Start 02/18/19 at 09:30 Bismuth Subsalicylate (Pepto-Bismol) 30 ml QID PO Last administered on 02/27/19 13:07; Admin Dose 30 ML; Start 02/17/19 at 17:30 Sodium Chloride (Nacl) 1 gm TID PO Last administered on 02/27/19 13:07; Admin Dose 1 GM; Start 02/19/19 at 21:00 Metoprolol Tartrate (Lopressor) 50 mg Q8 PO Last administered on 02/27/19 14:20; Admin Dose 50 MG; Start 02/21/19 at 14:00 Morphine Sulfate (morphine) 2 mg Q4H PRN IV SEVERE PAIN LEVEL 7-10 Last administered on 02/22/19 18:33; Admin Dose 2 MG; Start 02/22/19 at 09:00 Insulin Aspart (Novolog Insulin Pen) NOVOLOG *MILD* ALGORITHM WITH MEALS B EDTIME SC ; Start 02/23/19 at 11:50 Furosemide (Lasix) 20 mg BID DIURETICS IV Last administered on 02/27/19 06:00; Admin Dose 20 MG; Start 02/23/19 at 11:00; Status Hold Midodrine (Proamatine) 10 mg TID@,,17 PO Last administered on 02/27/19 13:07; Admin Dose 10 MG; Start 02/23/19 at 13:00 Insulin Aspart (Novolog Insulin Pen) 4 unit WITH MEALS SC Last administered on 02/27/19 12:31; Admin Dose 4 UNIT; Start 02/23/19 at 17:55 Ascorbic Acid (Vitamin C) 500 mg BID PO Last administered on 02/27/19 09:22; Admin Dose 500 MG; Start 02/24/19 at 21:00; Stop 03/26/19 at 20:59 Ferrous Sulfate (Ferrous Sulfate (Ec)) 325 mg BID PO Last administered on 02/27/19at 09:23; Admin Dose 325 MG; Start 02/24/19 at 21:00; Stop 03/26/19 at 20:59 BRENDEN AGUAYO M.D. Feb 27, 2019 15:42
--- NOTE | 2019-02-27 16:04 | PN ---
Date/Time of Note Date/Time of Note DATE: 02/27/19 TIME: 15:55 Assessment/Plan VTE Prophylaxis Risk score (from [facility])>0 risk: 6 SCD applied (from [facility]): Yes Pharmacological prophylaxis: NA/contraindicated Pharm contraindication: liver dx Lines/Catheters IV [facility]ter Type (from [facility] Peripheral IV Urinary Cath still in place: No Assessment/Plan Hospital Course 59 yo male with hyperthyroidism, hyponatremia, and pancytopenias with FUO/SIRS Anasarca secondary to cirrhosis -Ultrasound of the liver does confirm cirrhosis -Hepatitis panel and MATI are negative, patient does have an extensive history of alcohol abuse in the past but did quit few years ago, no reports of opiate abuse -Patient with mild ascites, pleural effusions and testicular swelling -Lasix and Aldactone -No further interventions per urology -Ultrasound-guided thoracentesis for both diagnostic and therapeutic purposes FUO/SIRS: -Unclear source. Has not resolved with abx. Extensive imaging negative for malignancy or infection. Bone marrow biopsy negative. WBC scan negative previously -Repeat echo shows no evidence of vegetation -Rheumatology consultation obtained -Etiology is not secondary to hyperthyroidism per endocrine -Follow-up on thoracentesis with fluid analysis Hyperthyroid: - Off of anti-thyroidal meds per endocrine in anticipation of ablation as outpatient Tachycardia 2/2 hyperthyroid: - Metoprolol titration Lactic acidosis secondary to cirrhosis Pancytopenia secondary to cirrhosis - Flow cytometry suggested mild atypia, bone marrow biopsy wnl. LDH very elevated of unclear significance -Hematology following DMII: - Basal/bolus insulin Hyponatremia secondary to liver disease -DC salt tablets which may be exacerbating anasarca H Pylori infection: - 3x therapy per ID Discharge plan: Continue with workup for fevers Result Diagram: 02/26/19 0602/26/19 06 Results 24hrs Laboratory Tests Test 02/26/19 16:22 02/26/19 17:15 02/26/19 17:36 02/26/19 18:34 Erythrocyte 60 H Sedimentation Rate Lactic Acid Level 3.8 *H Ferritin 2750.0 H Lactate 3388 H Dehydrogenase Hepatitis B Surface NEGATIVE Antigen Hepatitis B Core NEGATIVE Total Antibody Hepatitis C Antibody NEGATIVE Bedside Glucose 64 L 90 76 Test 02/26/19 19:51 02/26/19 21:34 02/27/19 03:39 02/27/19 08:19 Lactic Acid Level 3.9 *H 5.0 *H Bedside Glucose 81 157 Triglycerides Level 254 H Cholesterol Level 122 LDL Cholesterol, 59 Calculated HDL Cholesterol 12 L Cholesterol/HDL 10.1 Ratio Test 02/27/19 09:21 02/27/19 12:23 02/27/19 14:10 Lactic Acid Level 5.6 *H 4.7 *H Bedside Glucose 126 Subjective 24 Hr Interval Summary Genitourinary: other (Testicular swelling) Exam/Review of Systems Exam Vitals Vital Signs Date Temp Pulse Resp B/P (MAP) Pulse Ox O2 O2 Flow FiO2 Time Delivery Rate 02/27/19 97.5 112 18 100/59 93 Room Air 15:07 (73) 02/27/19 3.0 11:29 Intake and Output 02/26/19 02/26/19 02/27/19 1515:00 23:00 07:00 IntakeIntake Total 500 ml 1050 ml BalanceBalance 500 ml 1050 ml Constitutional: alert Respiratory: clear to auscultation Cardiovascular: regular rate and rhythm Gastrointestinal: soft Genitourinary - Male: No nl scrotum Musculoskeletal: nl extremities to inspection Results Results 24hrs Laboratory Tests Test 02/26/19 16:22 02/26/19 17:15 02/26/19 17:36 02/26/19 18:34 Erythrocyte 60 H Sedimentation Rate Lactic Acid Level 3.8 *H Ferritin 2750.0 H Lactate 3388 H Dehydrogenase Hepatitis B Surface NEGATIVE Antigen Hepatitis B Core NEGATIVE Total Antibody Hepatitis C Antibody NEGATIVE Bedside Glucose 64 L 90 76 Test 02/26/19 19:51 02/26/19 21:34 02/27/19 03:39 02/27/19 08:19 Lactic Acid Level 3.9 *H 5.0 *H Bedside Glucose 81 157 Triglycerides Level 254 H Cholesterol Level 122 LDL Cholesterol, 59 Calculated HDL Cholesterol 12 L Cholesterol/HDL 10.1 Ratio Test 02/27/19 09:21 02/27/19 12:23 02/27/19 14:10 Lactic Acid Level 5.6 *H 4.7 *H Bedside Glucose 126 Medications Medication Current Medications IV Flush (NS 3 ml) 3 ml PER PROTOCOL IV ; Start 02/06/19 at 15:00 Ondansetron HCl (Zofran Inj) 4 mg Q6H PRN IV NAUSEA/VOMITING Last administered on 02/26/19at 09:34; Admin Dose 4 MG; Start 02/06/19 at 15:00 Acetaminophen (Tylenol Tab) 650 mg Q6H PRN PO .PAIN 1-3 OR TEMP Last administered on 02/26/19at 08:08; Admin Dose 650 MG; Start 02/06/19 at 15:00 Atorvastatin Calcium (Lipitor) 10 mg DAILY@21 PO Last administered on 02/26/19at 21:36; Admin Dose 10 MG; Start 02/06/19 at 21:00 Miscellaneous Information 1 ea NOTE XX ; Start 02/06/19 at 16:00 Glucose (Glutose) 15 gm Q15M PRN PO DECREASED GLUCOSE; Start 02/06/19 at 16:00 Glucose (Glutose) 22.5 gm Q15M PRN PO DECREASED GLUCOSE; Start 02/06/19 at 16:00 Dextrose (D50w Syringe) 25 ml Q15M PRN IV DECREASED GLUCOSE Last administered on 02/26/19at 17:21; Admin Dose 25 ML; Start 02/06/19 at 16:00 Dextrose (D50w Syringe) 50 ml Q15M PRN IV DECREASED GLUCOSE; Start 02/06/19 at 16:00 Glucagon (Glucagen) 1 mg Q15M PRN IM DECREASED GLUCOSE; Start 02/06/19 at 16:00 Glucose (Glutose) 15 gm Q15M PRN BUCCAL DECREASED GLUCOSE Last administered on 02/22/19at 23:24; Admin Dose 15 GM; Start 02/06/19 at 16:00 Pantoprazole (Protonix Tab) 40 mg BID@0600,1800 PO Last administered on 02/27/19at 06:01; Admin Dose 40 MG; Start 02/07/19 at 06:00 Miscellaneous Information (* Miscellaneous Pharmacy Order) Treatment of Hypoglycemia: 1.BG 51... Per protocol XX ; Start 02/08/19 at 09:00 Dextrose (D50w Syringe) 25 ml Q15M PRN IV .DECREASED GLUCOSE; Start 02/08/19 at 09:00 Dextrose (D50w Syringe) 50 ml Q15M PRN IV .DECREASED GLUCOSE; Start 02/08/19 at 09:00 Methimazole (Tapazole) 30 mg BID PO Last administered on 02/27/19at 09:23; Admin Dose 30 MG; Start 02/08/19 at 13:30 Heparin Sodium (Porcine) (Heparin (5000 Units/1ml)) 5,000 unit BID SC Last administered on 02/14/19 22:48; Admin Dose 5,000 UNIT; Start 02/11/19 at 09:00; Status Hold Acetaminophen/ Hydrocodone Bitart ([place] (5/325)) 1 tab Q6H PRN PO MODERATE PAIN LEVEL 4-6 Last administered on 02/23/19 14:08; Admin Dose 1 TAB; Start 02/12/19 at 09:00 Senna (Senokot) 2 tab BID PO Last administered on 02/27/19 09:22; Admin Dose 2 TAB; Start 02/16/19 at 21:00 Insulin Glargine (Lantus) 5 units DAILY@0930 SC Last administered on 02/27/19 09:55; Admin Dose 5 UNITS; Start 02/18/19 at 09:30 Bismuth Subsalicylate (Pepto-Bismol) 30 ml QID PO Last administered on 02/27/19 13:07; Admin Dose 30 ML; Start 02/17/19 at 17:30 Sodium Chloride (Nacl) 1 gm TID PO Last administered on 02/27/19 13:07; Admin Dose 1 GM; Start 02/19/19 at 21:00 Metoprolol Tartrate (Lopressor) 50 mg Q8 PO Last administered on 02/27/19 14:20; Admin Dose 50 MG; Start 02/21/19 at 14:00 Morphine Sulfate (morphine) 2 mg Q4H PRN IV SEVERE PAIN LEVEL 7-10 Last administered on 02/22/19 18:33; Admin Dose 2 MG; Start 02/22/19 at 09:00 Insulin Aspart (Novolog Insulin Pen) NOVOLOG *MILD* ALGORITHM WITH MEALS BEDTIME SC ; Start 02/23/19 at 11:50 Furosemide (Lasix) 20 mg BID DIURETICS IV Last administered on 02/27/19 06:00; Admin Dose 20 MG; Start 02/23/19 at 11:00; Status Hold Midodrine (Proamatine) 10 mg TID@,,17 PO Last administered on 02/27/19 13:07; Admin Dose 10 MG; Start 02/23/19 at 13:00 Insulin Aspart (Novolog Insulin Pen) 4 unit WITH MEALS SC Last administered on 02/27/19at 12:31; Admin Dose 4 UNIT; Start 02/23/19 at 17:55 Ascorbic Acid (Vitamin C) 500 mg BID PO Last administered on 02/27/19 09:22; Admin Dose 500 MG; Start 02/24/19 at 21:00; Stop 03/26/19 at 20:59 Ferrous Sulfate (Ferrous Sulfate (Ec)) 325 mg BID PO Last administered on 02/27/19at 09:23; Admin Dose 325 MG; Start 02/24/19 at 21:00; Stop 03/26/19 at 20:59 RODRIGUEZ DOTY Feb 27, 2019 16:04
[2019-02-27] MEDS: FUROSEMIDE 20 MG TAB PO SCH (18:08)
[2019-02-27] MEDS: SPIRONOLACTONE 50 MG TAB PO SCH (18:08)
[2019-02-27] MEDS: DOCUSATE SODIUM 100 MG CAP PO SCH (20:44)
[2019-02-27] MEDS: ATORVASTATIN 10 MG TAB PO SCH (20:44)
[2019-02-28] VITALS (13 sets, daily range): BP systolic 83–103; BP diastolic 54–62; PULSE 88–108; RESP 18–20
[2019-02-28] MEDS: PANTOPRAZOLE (EC) 40 MG TAB PO SCH ×2 (05:28→18:12)
[2019-02-28] MEDS: SPIRONOLACTONE 50 MG TAB PO SCH ×2 (05:28→18:13)
[2019-02-28] MEDS: METOPROLOL 50 MG TAB PO SCH ×3 (05:28→22:00)
[2019-02-28] MEDS: FUROSEMIDE 20 MG TAB PO SCH ×2 (05:28→18:13)
[2019-02-28] MEDS: INSULIN ASPART [NOVOLOG] 3 ML PEN SC SCH ×7 (07:39→20:42)
[2019-02-28] MEDS: MIDODRINE 5 MG TAB PO SCH ×3 (09:22→18:17)
[2019-02-28] MEDS: BISMUTH SUBSALICYLATE 240 ML BTL PO SCH ×4 (09:22→20:36)
[2019-02-28] MEDS: FERROUS SULFATE (EC) 325 MG TAB PO SCH ×2 (09:22→20:36)
[2019-02-28] MEDS: ASCORBIC ACID 500 MG TAB PO SCH ×2 (09:23→20:35)
[2019-02-28] MEDS: DOCUSATE SODIUM 100 MG CAP PO SCH ×2 (09:23→20:36)
[2019-02-28] MEDS: SENNA TAB PO SCH ×2 (09:23→20:35)
--- NOTE | 2019-02-28 09:28 | PN ---
DATE: 02/28/2019 SUBJECTIVE: The patient is stable, no events overnight. No fevers, chills, nausea, vomiting. OBJECTIVE: VITAL SIGNS: Blood pressure is 92/55, respirations 20, pulse 104, temperature 98.3. HEENT: Head is normocephalic. NECK: Supple. HEART: Regular rate. LUNGS: Show diminished breath sounds at the base. ABDOMEN: Soft, nontender to palpation without rebound or guarding. EXTREMITIES: Negative for clubbing, cyanosis. Positive edema. DERMATOLOGIC: No rashes. MUSCULOSKELETAL: No joint effusion. NEUROLOGIC: No change in exam. MEDICATIONS: Have been reviewed. LABORATORY DATA: Has been reviewed. ASSESSMENT AND PLAN: 1. Hyponatremia. Etiology is likely secondary to underlying cirrhosis. The patient's sodium levels remain low but stable. Continue to limit free water intake. Continue diuretic therapy, monitor hem odynamics closely. 2. Volume overload. Etiology is secondary to cirrhosis. Continue current diuretic regimen. Monito r I's and O's closely. 3. Hypertension, etiology is likely due to hemodynamics, cirrhosis. Continue to monitor. Continue midodrine. 4. Hypothyroidism with Graves' disease. Continue to monitor. Follow up with endocrinology. 5. Thrombocytopenia secondary to cirrhosis. Monitor sequestration. Continue to monitor. 6. Systemic inflammatory response syndrome. Continue current treatment plan. 7. Lactic acidosis. Etiology may be secondary to cirrhosis and hemodynamics. Continue to monitor. Continue to trend lactic acid levels. 8. Diabetes. Continue current insulin regimen. 9. History of arrhythmia. Continue to monitor. Dictated By: DIANNA SAWYER DO NR/NTS Conf#: [id number] DID#: [id number] CC: PURVI QUIGLEY MD;*End*
[2019-02-28] MEDS: INSULIN GLARGINE [LANTus] (100 UNITS/ML) SYG SC SCH (09:30)
[2019-02-28] MEDS: METHIMAZOLE 5 MG TAB PO SCH ×2 (10:57→20:35)
--- NOTE | 2019-02-28 14:23 | CONS ---
Assessment/Plan Assessment/Plan Problems: (1) Graves' disease with exophthalmos Status: Chronic Comment: On antithyroid drug therapy. Please note the antithyroid drugs can be associated with issues in the liver. The less common issue is a cholestatic jaundice which is usually noted by marked hyperbilirubinemia. The more common issue is a chemical hepatitis with marked elevation of transaminases. He has not demonstrated either of these trends. As such I would continue with the medications (2) Diabetes mellitus type 2 in nonobese Status: Chronic Comment: Adequate control. Consultation Date/Type/Reason Admit Date/Time Feb 06, 2019 at 14:46 Initial Consult Date 02/06/19 Type of Consult Endocrine Reason for Consultation Thyrotoxicosis Requesting Provider: KIRK AREVALO MD Date/Time of Note DATE: 02/28/19 TIME: 14:21 24 HR Interval Summary Free Text/Dictation No changes Detailed Summary Endocrine: no complaints Exam/Review of Systems Exam Vitals Vital Signs Date Temp Pulse Resp B/P (MAP) Pulse Ox O2 O2 Flow FiO2 Time Delivery Rate 02/28/19 98.1 100 20 100/57 90 13:01 (71) 02/28/19 Nasal 2.0 09:32 Cannula Intake and Output 02/27/19 02/27/19 02/28/19 1515:00 23:00 07:00 IntakeIntake Total 550 ml 500 ml OutputOutput Total 700 ml 850 ml BalanceBalance -150 ml -350 ml Exam No change in exam Results Result Diagram: 02/28/19 0700 02/28/19 0700 Results 24hrs Laboratory Tests Test 02/27/19 16:35 02/27/19 17:22 02/27/19 17:47 02/27/19 20:20 Urine Color YELLOW Urine Clarity CLEAR Urine pH 5.0 Urine Specific 1.014 [place] Urine Ketones NEGATIVE Urine Nitrite NEGATIVE Urine Bilirubin NEGATIVE Urine Urobilinogen NEGATIVE Urine Leukocyte NEGATIVE Esterase Urine Hemoglobin NEGATIVE Urine Glucose NEGATIVE Urine Total Protein NEGATIVE Bedside Glucose 95 66 L Prothrombin Time 15.2 H Prothrombin Time 1.2 Ratio INR International 1.19 Normalized Ratio Activated 41.3 H Partial Thromboplast Time Test 02/27/19 20:35 02/27/19 20:52 02/27/19 21:09 02/28/19 07:00 Bedside Glucose 66 L 75 98 White Blood Count 5.8 # Red Blood Count 3.77 L Hemoglobin 9.2 L Hematocrit 28.8 L Mean Corpuscular 76.4 L Volume Mean Corpuscular 24.4 L Hemoglobin Mean Corpuscular 31.9 L Hemoglobin Concent Red Cell 21.1 H Distribution Width Platelet Count 167 # Mean Platelet Volume 10.2 Immature 0.900 H Granulocytes % Neutrophils % 48.5 Lymphocytes % 24.7 Monocytes % 25.0 H Eosinophils % 0.2 Basophils % 0.7 Nucleated Red Blood 0.0 Cells % Immature 0.050 H Granulocytes # Neutrophils # 2.8 Lymphocytes # 1.4 Monocytes # 1.4 H Eosinophils # 0.0 Basophils # 0.0 Nucleated Red Blood 0.0 Cells # Sodium Level 129 L Potassium Level 4.2 Chloride Level 94 L Carbon Dioxide Level 28 Anion Gap 7 Blood Urea Nitrogen 10 Creatinine 0.69 Est Glomerular > 60 Filtrat Rate mL/min Glucose Level 87 Calcium Level 8.5 Phosphorus Level 3.4 Magnesium Level 1.6 L Ammonia 12 Test 02/28/19 07:38 02/28/19 09:21 02/28/19 12:28 Bedside Glucose 103 114 94 Medications Medication Current Medications IV Flush (NS 3 ml) 3 ml PER PROTOCOL IV ; Start 02/06/19 at 15:00 Ondansetron HCl (Zofran Inj) 4 mg Q6H PRN IV NAUSEA/VOMITING Last administered on 02/26/19at 09:34; Admin Dose 4 MG; Start 02/06/19 at 15:00 Acetaminophen (Tylenol Tab) 650 mg Q6H PRN PO .PAIN 1-3 OR TEMP Last administered on 02/26/19at 08:08; Admin Dose 650 MG; Start 02/06/19 at 15:00 Atorvastatin Calcium (Lipitor) 10 mg DAILY@21 PO Last administered on 02/27/19at 20:44; Admin Dose 10 MG; Start 02/06/19 at 21:00 Miscellaneous Information 1 ea NOTE XX ; Start 02/06/19 at 16:00 Glucose (Glutose) 15 gm Q15M PRN PO DECREASED GLUCOSE; Start 02/06/19 at 16:00 Glucose (Glutose) 22.5 gm Q15M PRN PO DECREASED GLUCOSE; Start 02/06/19 at 16:00 Dextrose (D50w Syringe) 25 ml Q15M PRN IV DECREASED GLUCOSE Last administered on 02/26/19 17:21; Admin Dose 25 ML; Start 02/06/19 at 16:00 Dextrose (D50w Syringe) 50 ml Q15M PRN IV DECREASED GLUCOSE; Start 02/06/19 at 16:00 Glucagon (Glucagen) 1 mg Q15M PRN IM DECREASED GLUCOSE; Start 02/06/19 at 16:00 Glucose (Glutose) 15 gm Q15M PRN BUCCAL DECREASED GLUCOSE Last administered on 02/22/19at 23:24; Admin Dose 15 GM; Start 02/06/19 at 16:00 Pantoprazole (Protonix Tab) 40 mg BID@0600,1800 PO Last administered on 9at 05:28; Admin Dose 40 MG; Start 02/07/19 at 06:00 Miscellaneous Information (* Miscellaneous Pharmacy Order) Treatment of Hypoglycemia: 1.BG 51... Per protocol XX ; Start 02/08/19 at 09:00 Dextrose (D50w Syringe) 25 ml Q15M PRN IV .DECREASED GLUCOSE; Start 02/08/19 at 09:00 Dextrose (D50w Syringe) 50 ml Q15M PRN IV .DECREASED GLUCOSE; Start 02/08/19 at 09:00 Methimazole (Tapazole) 30 mg BID PO Last administered on 02/28/19at 10:57; Admin Dose 30 MG; Start 02/08/19 at 13:30 Heparin Sodium (Porcine) (Heparin (5000 Units/1ml)) 5,000 unit BID SC Last administered on 02/14/19at 22:48; Admin Dose 5,000 UNIT; Start 02/11/19 at 09:00; Status Hold Acetaminophen/ Hydrocodone Bitart ([place] (5/325)) 1 tab Q6H PRN PO MODERATE PAIN LEVEL 4-6 Last administered on 02/23/19at 14:08; Admin Dose 1 TAB; Start 02/12/19 at 09:00 Senna (Senokot) 2 tab BID PO Last administered on 02/28/19 09:23; Admin Dose 2 TAB; Start 02/16/19 at 21:00 Insulin Glargine (Lantus) 5 units DAILY@0930 SC Last administered on 02/28/19at 09:30; Admin Dose 5 UNITS; Start 02/18/19 at 09:30 Metoprolol Tartrate (Lopressor) 50 mg Q8 PO Last administered on 02/27/19 14:20; Admin Dose 50 MG; Start 02/21/19 at 14:00 Morphine Sulfate (morphine) 2 mg Q4H PRN IV SEVERE PAIN LEVEL 7-10 Last administered on 02/22/19 18:33; Admin Dose 2 MG; Start 02/22/19 at 09:00 Insulin Aspart (Novolog Insulin Pen) NOVOLOG *MILD* ALGORITHM WITH MEALS BEDTIME SC ; Start 02/23/19 at 11:50 Midodrine (Proamatine) 10 mg TID@,,17 PO Last administered on 02/28/19 13:49; Admin Dose 10 MG; Start 02/23/19 at 13:00 Insulin Aspart (Novolog Insulin Pen) 4 unit WITH MEALS SC Last administered on 02/28/19 08:16; Admin Dose 4 UNIT; Start 02/23/19 at 17:55 Ascorbic Acid (Vitamin C) 500 mg BID PO Last administered on 02/28/19 09:23; Admin Dose 500 MG; Start 02/24/19 at 21:00; Stop 03/26/19 at 20:59 Ferrous Sulfate (Ferrous Sulfate (Ec)) 325 mg BID PO Last administered on 02/28/19 09:22; Admin Dose 325 MG; Start 02/24/19 at 21:00; Stop 03/26/19 at 20:59 Furosemide (Lasix) 20 mg BID DIURETICS PO Last administered on 02/28/19 05:28; Admin Dose 20 MG; Start 02/27/19 at 18:00 Spironolactone (Aldactone) 50 mg BID DIURETICS PO Last administered on 02/28/19 05:28; Admin Dose 50 MG; Start 02/27/19 at 18:00 Docusate Sodium (Colace) 200 mg BID PO Last administered on 02/28/19 09:23; Admin Dose 200 MG; Start 02/27/19 at 21:00 Bismuth Subsalicylate (Pepto-Bismol) 30 ml QID PO Last administered on 02/28/19 13:49; Admin Dose 30 ML; Start 02/27/19 at 21:00 ANA GARCIA MD Feb 28, 2019 14:23
--- NOTE | 2019-02-28 14:30 | CONS ---
Assessment/Plan Assessment/Plan Hospital Course (Demo Recall) assessment/impression # recurrent fever, SIRS vs. epididymitis vs. other infectious etiologies - persistent bilateral epididymitis, although ultrasound on 02/27/2019 showed improvement. Pt took vac and cefe (12/11/2018-12/14/18) - persistent gram negative bacteria in urine 02/27/2019, urine for gonorrhea and chlamydia was negative on 02/21/2019, urine culture <10K citrobacter and <10K ashley on 02/13/2019 - procalcitonin unremarkable: <0.1, 0.11, 0.2 - elevated ESR, lactic acid, C reactive protein - extraction of lower teeth prior to the start of fever - past exposure to EBV - The following is negative: HIV screening, HIV viral load, cryptococcus antigen, mono, Dengue serology, blood smear for malaria, resp virus panel, MTB complex, HSV 1&2 by PCR, CMV, WBC scan on 12/18/2018, acute hepatitis panel, stool O&P - the following is negative too: rheumatoid factor, MATI, HIT panel, thyroglobulin, thyroid antimicrosomal # heme - s/p bone marrow biopsy 02/20/19 - showed nl cellular marrow with adequate megakaryopoiesis, reduced marrow hemosiderin, reticulin fibrosis, mild, no granulomas identified, no e/o malignancy, no diagnostic immunophenotypic abl detected - gastritis due to H. pylori: diagnosed by H. 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 AFB smear of sputum was negative on 12/11/2018, 12/13/2018, and 12/19/2018; repeat QTB gold negative on 12/16/2018 - mod-large pleural effusions per CT chest 02/22/19. Scheduled for thoracentesis on 02/28/2019 - Hx K. Penumo ESBL in sputum cx on 12/15/2018, likely colonizer # endo and cardiac - Graves disease with exophthalmos - Hyperthyroidism - on Tapazole - T2DM - Hgb A1c 5.6% - SVT on 02/17/2019, s/p adenosine additional recommendations: - pending results: hepatitis B viral load and hepatitis C viral load, R. typhus antibody, IgD level - ordered the following tests for thoracentesis: cultures of bacteria, fungi and AFB, MTB complex NAAT probe to pleural fluid, cytology, O&P - ordered: Leishmania IgG - Pt's daughter informed me that 2-3 days after Pt's lower teeth were removed by a dentist, Pt started having fever. I recommend tranesophageal echo to r/o valvular vegetation. I recommend transesophageal echo to r/o valvular vegetation - restart ceftriaxone (02/27/2019) management d/w Pt, his , daughter, RN and Dr. Alvarado Consultation Date/Type/Reason Admit Date/Time Feb 06, 2019 at 14:46 Initial Consult Date 02/18/19 Requesting Provider: KIRK AREVALO MD Date/Time of Note DATE: 02/28/19 TIME: 14:26 24 HR Interval Summary Constitutional: no complaints Detailed Summary Eyes: no complaints ENT: no complaints Respiratory: no complaints Cardiovascular: no complaints Gastrointestinal: no complaints Genitourinary: other (+scrotal pain) Musculoskeletal: no complaints Skin: no complaints Neurologic: no complaints Exam/Review of Systems Exam Vitals Vital Signs Date Temp Pulse Resp B/P (MAP) Pulse Ox O2 O2 Flow FiO2 Time Delivery Rate 02/28/19 98.1 100 20 100/57 90 13:01 (71) 02/28/19 Nasal 2.0 09:32 Cannula Intake and Output 02/27/19 02/27/19 02/28/19 1515:00 23:00 07:00 IntakeIntake Total 550 ml 500 ml OutputOutput Total 700 ml 850 ml BalanceBalance -150 ml -350 ml Constitutional: frail Psych: no complaints, nl mood/affect Head: normocephalic, atraumatic Eyes: nl conjunctiva, nl lids, nl sclera ENMT: nl external ears & nose, nl nasal mucosa & septum, mucosa pink and moist Neck: other (not swollen) Respiratory: other (normal resp effort) Cardiovascular: regular rate and rhythm, nl pulses Gastrointestinal: soft Genitourinary - Male: other (+scrotal swelling) Musculoskeletal: nl extremities to inspection Extremities: No edema Neurological: nl mental status; No lethargic Skin: No rash or lesions Results Result Diagram: 02/28/19 0700 02/28/19 0700 Results 24hrs Laboratory Tests Test 02/27/19 16:35 02/27/19 17:22 02/27/19 17:47 02/27/19 20:20 Urine Color YELLOW Urine Clarity CLEAR Urine pH 5.0 Urine Specific 1.014 [place] Urine Ketones NEGATIVE Urine Nitrite NEGATIVE Urine Bilirubin NEGATIVE Urine Urobilinogen NEGATIVE Urine Leukocyte NEGATIVE Esterase Urine Hemoglobin NEGATIVE Urine Glucose NEGATIVE Urine Total Protein NEGATIVE Bedside Glucose 95 66 L Prothrombin Time 15.2 H Prothrombin Time 1.2 Ratio INR International 1.19 Normalized Ratio Activated 41.3 H Partial Thromboplast Time Test 02/27/19 20:35 02/27/19 20:52 02/27/19 21:09 02/28/19 07:00 Bedside Glucose 66 L 75 98 White Blood Count 5.8 # Red Blood Count 3.77 L Hemoglobin 9.2 L Hematocrit 28.8 L Mean Corpuscular 76.4 L Volume Mean Corpuscular 24.4 L Hemoglobin Mean Corpuscular 31.9 L Hemoglobin Concent Red Cell 21.1 H Distribution Width Platelet Count 167 # Mean Platelet Volume 10.2 Immature 0.900 H Granulocytes % Neutrophils % 48.5 Lymphocytes % 24.7 Monocytes % 25.0 H Eosinophils % 0.2 Basophils % 0.7 Nucleated Red Blood 0.0 Cells % Immature 0.050 H Granulocytes # Neutrophils # 2.8 Lymphocytes # 1.4 Monocytes # 1.4 H Eosinophils # 0.0 Basophils # 0.0 Nucleated Red Blood 0.0 Cells # Sodium Level 129 L Potassium Level 4.2 Chloride Level 94 L Carbon Dioxide Level 28 Anion Gap 7 Blood Urea Nitrogen 10 Creatinine 0.69 Est Glomerular > 60 Filtrat Rate mL/min Glucose Level 87 Calcium Level 8.5 Phosphorus Level 3.4 Magnesium Level 1.6 L Ammonia 12 Test 02/28/19 07:38 02/28/19 09:21 02/28/19 12:28 Bedside Glucose 103 114 94 Medications Medication Current Medications IV Flush (NS 3 ml) 3 ml PER PROTOCOL IV ; Start 02/06/19 at 15:00 Ondansetron HCl (Zofran Inj) 4 mg Q6H PRN IV NAUSEA/VOMITING Last administered on 02/26/19at 09:34; Admin Dose 4 MG; Start 02/06/19 at 15:00 Acetaminophen (Tylenol Tab) 650 mg Q6H PRN PO .PAIN 1-3 OR TEMP Last admini stered on 02/26/19at 08:08; Admin Dose 650 MG; Start 02/06/19 at 15:00 Atorvastatin Calcium (Lipitor) 10 mg DAILY@21 PO Last administered on 02/27/19at 20:44; Admin Dose 10 MG; Start 02/06/19 at 21:00 Miscellaneous Information 1 ea NOTE XX ; Start 02/06/19 at 16:00 Glucose (Glutose) 15 gm Q15M PRN PO DECREASED GLUCOSE; Start 02/06/19 at 16:00 Glucose (Glutose) 22.5 gm Q15M PRN PO DECREASED GLUCOSE; Start 02/06/19 at 16:00 Dextrose (D50w Syringe) 25 ml Q15M PRN IV DECREASED GLUCOSE Last administered on 02/26/19at 17:21; Admin Dose 25 ML; Start 02/06/19 at 16:00 Dextrose (D50w Syringe) 50 ml Q15M PRN IV DECREASED GLUCOSE; Start 02/06/19 at 16:00 Glucagon (Glucagen) 1 mg Q15M PRN IM DECREASED GLUCOSE; Start 02/06/19 at 16:00 Glucose (Glutose) 15 gm Q15M PRN BUCCAL DECREASED GLUCOSE Last administered on 02/22/19at 23:24; Admin Dose 15 GM; Start 02/06/19 at 16:00 Pantoprazole (Protonix Tab) 40 mg BID@0600,1800 PO Last administered on 02/28/19at 05:28; Admin Dose 40 MG; Start 02/07/19 at 06:00 Miscellaneous Information (* Miscellaneous Pharmacy Order) Treatment of Hypoglycemia: 1.BG 51... Per protocol XX ; Start 02/08/19 at 09:00 Dextrose (D50w Syringe) 25 ml Q15M PRN IV .DECREASED GLUCOSE; Start 02/08/19 at 09:00 Dextrose (D50w Syringe) 50 ml Q15M PRN IV .DECREASED GLUCOSE; Start 02/08/19 at 09:00 Methimazole (Tapazole) 30 mg BID PO Last administered on 02/28/19at 10:57; Admin Dose 30 MG; Start 02/08/19 at 13:30 Heparin Sodium (Porcine) (Heparin (5000 Units/1ml)) 5,000 unit BID SC Last a dministered on 02/14/19 22:48; Admin Dose 5,000 UNIT; Start 02/11/19 at 09:00; Status Hold Acetaminophen/ Hydrocodone Bitart ([place] (5/325)) 1 tab Q6H PRN PO MODERATE PAIN LEVEL 4-6 Last administered on 02/23/19 14:08; Admin Dose 1 TAB; Start 02/12/19 at 09:00 Senna (Senokot) 2 tab BID PO Last administered on 02/28/19 09:23; Admin Dose 2 TAB; Start 02/16/19 at 21:00 Insulin Glargine (Lantus) 5 units DAILY@0930 SC Last administered on 02/28/19 09:30; Admin Dose 5 UNITS; Start 02/18/19 at 09:30 Metoprolol Tartrate (Lopressor) 50 mg Q8 PO Last administered on 02/27/19 14:20; Admin Dose 50 MG; Start 02/21/19 at 14:00 Morphine Sulfate (morphine) 2 mg Q4H PRN IV SEVERE PAIN LEVEL 7-10 Last administered on 02/22/19 18:33; Admin Dose 2 MG; Start 02/22/19 at 09:00 Insulin Aspart (Novolog Insulin Pen) NOVOLOG *MILD* ALGORITHM WITH MEALS BEDTIME SC ; Start 02/23/19 at 11:50 Midodrine (Proamatine) 10 mg TID@,13,17 PO Last administered on 02/28/19 13:49; Admin Dose 10 MG; Start 02/23/19 at 13:00 Insulin Aspart (Novolog Insulin Pen) 4 unit WITH MEALS SC Last administered on 02/28/19 08:16; Admin Dose 4 UNIT; Start 02/23/19 at 17:55 Ascorbic Acid (Vitamin C) 500 mg BID PO Last administered on 02/28/19 09:23; Admin Dose 500 MG; Start 02/24/19 at 21:00; Stop 03/26/19 at 20:59 Ferrous Sulfate (Ferrous Sulfate (Ec)) 325 mg BID PO Last administered on 02/28/19 09:22; Admin Dose 325 MG; Start 02/24/19 at 21:00; Stop 03/26/19 at 20:59 Furosemide (Lasix) 20 mg BID DIURETICS PO Last administered on 4/26/19at 05:28; Admin Dose 20 MG; Start 02/27/19 at 18:00 Spironolactone (Aldactone) 50 mg BID DIURETICS PO Last administered on 02/28/19at 05:28; Admin Dose 50 MG; Start 02/27/19 at 18:00 Docusate Sodium (Colace) 200 mg BID PO Last administered on 02/28/19at 09:23; Admin Dose 200 MG; Start 02/27/19 at 21:00 Bismuth Subsalicylate (Pepto-Bismol) 30 ml QID PO Last administered on 02/28/19at 13:49; Admin Dose 30 ML; Start 02/27/19 at 21:00 BRENDEN AGUAYO M.D. Feb 28, 2019 14:30
[2019-02-28] MEDS ORDERED: CEFTRIAXONE 1 GM/50 ML (PMX) 50 ML IVPB SCH (15:00)
--- NOTE | 2019-02-28 16:36 | CONS ---
Assessment/Plan Assessment/Plan Hospital Course (Demo Recall) assessment/impression # recurrent fever, SIRS vs. epididymitis vs. other infectious etiologies - persistent bilateral epididymitis, although ultrasound on 02/27/2019 showed improvement. Pt took vac and cefe (12/11/2018-12/14/18) - persistent gram negative bacteria in urine 02/27/2019, urine for gonorrhea and chlamydia was negative on 02/21/2019, urine culture <10K citrobacter and <10K ashley on 02/13/2019 - procalcitonin unremarkable: <0.1, 0.11, 0.2 - elevated ESR, lactic acid, C reactive protein - extraction of lower teeth prior to the start of fever - past exposure to EBV - The following is negative: HIV screening, HIV viral load, cryptococcus antigen, mono, Dengue serology, blood smear for malaria, resp virus panel, MTB complex, HSV 1&2 by PCR, CMV, WBC scan on 12/18/2018, acute hepatitis panel, stool O&P - the following is negative too: rheumatoid factor, MATI, HIT panel, thyroglobulin, thyroid antimicrosomal # heme - s/p bone marrow biopsy 02/19/19, no e/o leukemia/lymphoma per conversation with Dr. Carvajal on 02/28/2019 - gastritis due to H. pylori: diagnosed by H. 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 AFB smear of sputum was negative on 12/11/2018, 12/13/2018, and 12/19/2018; repeat QTB gold negative on 12/16/2018 - mod-large pleural effusions per CT chest 02/22/19. Scheduled for thoracentesis on 02/28/2019 - Hx K. Penumo ESBL in sputum cx on 12/15/2018, likely colonizer # endo and cardiac - Graves disease with exophthalmos - Hyperthyroidism - on Tapazole - T2DM - Hgb A1c 5.6% - SVT on 02/17/2019, s/p adenosine revised recommendations: - pending results: hepatitis B viral load and hepatitis C viral load, R. typhus antibody, IgD level - ordered the following tests for thoracentesis: cultures of bacteria, fungi and AFB, MTB complex NAAT probe to pleural fluid, cytology, O&P - ordered: Leishmania IgG - I discussed with Dr. Carvajal and requested that the following tests be done on Pt's bone marrow Bx from 02/19/2019: Giemsa stain to eval toxoplasma, leish gee, immunohistochemical stain for CMV, EBV, HSV and HHV8, AFB stain (AFB culture cannot be done because there is no more spare sample) - Pt's daughter informed me that 2-3 days after Pt's lower teeth were removed by a dentist, Pt started having fever. I recommend tranesophageal echo to r/o valvular vegetation. I recommend transesophageal echo to r/o valvular vegetation - restart ceftriaxone (02/27/2019) management d/w Pt, his , daughter, RN, Dr. Browne, Dr. Alvarado the total time I took to care for this Pt today was 100 min Consultation Date/Type/Reason Admit Date/Time Feb 06, 2019 at 14:46 Initial Consult Date 02/18/19 Requesting Provider: KIRK AREVALO MD Date/Time of Note DATE: 02/28/19 TIME: 16:21 Exam/Review of Systems Exam Vitals Vital Signs Date Temp Pulse Resp B/P (MAP) Pulse Ox O2 O2 Flow FiO2 Time Delivery Rate 02/28/19 98.2 106 20 83/54 (64) 90 16:17 02/28/19 Nasal 2.0 09:32 Cannula Intake and Output 02/27/19 02/27/19 02/28/19 1515:00 23:00 07:00 IntakeIntake Total 550 ml 500 ml OutputOutput Total 700 ml 850 ml BalanceBalance -150 ml -350 ml Results Result Diagram: 02/28/19 0700 02/28/19 0700 Results 24hrs Laboratory Tests Test 02/27/19 16:35 02/27/19 17:22 02/27/19 17:47 02/27/19 20:20 Urine Color YELLOW Urine Clarity CLEAR Urine pH 5.0 Urine Specific 1.014 [place] Urine Ketones NEGATIVE Urine Nitrite NEGATIVE Urine Bilirubin NEGATIVE Urine Urobilinogen NEGATIVE Urine Leukocyte NEGATIVE Esterase Urine Hemoglobin NEGATIVE Urine Glucose NEGATIVE Urine Total Protein NEGATIVE Bedside Glucose 95 66 L Prothrombin Time 15.2 H Prothrombin Time 1.2 Ratio INR International 1.19 Normalized Ratio Activated 41.3 H Partial Thromboplast Time Test 02/27/19 20:35 02/27/19 20:52 02/27/19 21:09 02/28/19 07:00 Bedside Glucose 66 L 75 98 White Blood Count 5.8 # Red Blood Count 3.77 L Hemoglobin 9.2 L Hematocrit 28.8 L Mean Corpuscular 76.4 L Volume Mean Corpuscular 24.4 L Hemoglobin Mean Corpuscular 31.9 L Hemoglobin Concent Red Cell 21.1 H Distribution Width Platelet Count 167 # Mean Platelet Volume 10.2 Immature 0.900 H Granulocytes % Neutrophils % 48.5 Lymphocytes % 24.7 Monocytes % 25.0 H Eosinophils % 0.2 Basophils % 0.7 Nucleated Red Blood 0.0 Cells % Immature 0.050 H Granulocytes # Neutrophils # 2.8 Lymphocytes # 1.4 Monocytes # 1.4 H Eosinophils # 0.0 Basophils # 0.0 Nucleated Red Blood 0.0 Cells # Sodium Level 129 L Potassium Level 4.2 Chloride Level 94 L Carbon Dioxide Level 28 Anion Gap 7 Blood Urea Nitrogen 10 Creatinine 0.69 Est Glomerular > 60 Filtrat Rate mL/min Glucose Level 87 Calcium Level 8.5 Phosphorus Level 3.4 Magnesium Level 1.6 L Ammonia 12 Test 02/28/19 07:38 02/28/19 09:21 02/28/19 12:28 Bedside Glucose 103 114 94 Medications Medication Current Medications IV Flush (NS 3 ml) 3 ml PER PROTOCOL IV ; Start 02/06/19 at 15:00 Ondansetron HCl (Zofran Inj) 4 mg Q6H PRN IV NAUSEA/VOMITING Last administered on 02/26/19at 09:34; Admin Dose 4 MG; Start 02/06/19 at 15:00 Acetaminophen (Tylenol Tab) 650 mg Q6H PRN PO .PAIN 1-3 OR TEMP Last administered on 02/26/19at 08:08; Admin Dose 650 MG; Start 02/06/19 at 15:00 Atorvastatin Calcium (Lipitor) 10 mg DAILY@21 PO Last administered on 02/27/19at 20:44; Admin Dose 10 MG; Start 02/06/19 at 21:00 Miscellaneous Information 1 ea NOTE XX ; Start 02/06/19 at 16:00 Glucose (Glutose) 15 gm Q15M PRN PO DECREASED GLUCOSE; Start 02/06/19 at 16:00 Glucose (Glutose) 22.5 gm Q15M PRN PO DECREASED GLUCOSE; Start 02/06/19 at 16:00 Dextrose (D50w Syringe) 25 ml Q15M PRN IV DECREASED GLUCOSE Last administered on 02/26/19 17:21; Admin Dose 25 ML; Start 02/06/19 at 16:00 Dextrose (D50w Syringe) 50 ml Q15M PRN IV DECREASED GLUCOSE; Start 02/06/19 at 16:00 Glucagon (Glucagen) 1 mg Q15M PRN IM DECREASED GLUCOSE; Start 02/06/19 at 16:00 Glucose (Glutose) 15 gm Q15M PRN BUCCAL DECREASED GLUCOSE Last administered on 02/22/19at 23:24; Admin Dose 15 GM; Start 02/06/19 at 16:00 Pantoprazole (Protonix Tab) 40 mg BID@0600,1800 PO Last administered on 02/28/19at 05:28; Admin Dose 40 MG; Start 02/07/19 at 06:00 Miscellaneous Information (* Miscellaneous Pharmacy Order) Treatment of Hypog lycemia: 1.BG 51... Per protocol XX ; Start 02/08/19 at 09:00 Dextrose (D50w Syringe) 25 ml Q15M PRN IV .DECREASED GLUCOSE; Start 02/08/19 at 09:00 Dextrose (D50w Syringe) 50 ml Q15M PRN IV .DECREASED GLUCOSE; Start 02/08/19 at 09:00 Methimazole (Tapazole) 30 mg BID PO Last administered on 02/28/19at 10:57; Admin Dose 30 MG; Start 02/08/19 at 13:30 Heparin Sodium (Porcine) (Heparin (5000 Units/1ml)) 5,000 unit BID SC Last administered on 02/14/19at 22:48; Admin Dose 5,000 UNIT; Start 02/11/19 at 09:00; Status Hold Acetaminophen/ Hydrocodone Bitart ([place] (5/325)) 1 tab Q6H PRN PO MODERATE PAIN LEVEL 4-6 Last administered on 02/23/19at 14:08; Admin Dose 1 TAB; Start 02/12/19 at 09:00 Senna (Senokot) 2 tab BID PO Last administered on 02/28/19 09:23; Admin Dose 2 TAB; Start 02/16/19 at 21:00 Insulin Glargine (Lantus) 5 units DAILY@0930 SC Last administered on 02/28/19 09:30; Admin Dose 5 UNITS; Start 02/18/19 at 09:30 Metoprolol Tartrate (Lopressor) 50 mg Q8 PO Last administered on 02/27/19 14:20; Admin Dose 50 MG; Start 02/21/19 at 14:00 Morphine Sulfate (morphine) 2 mg Q4H PRN IV SEVERE PAIN LEVEL 7-10 Last administered on 02/22/19 18:33; Admin Dose 2 MG; Start 02/22/19 at 09:00 Insulin Aspart (Novolog Insulin Pen) NOVOLOG *MILD* ALGORITHM WITH MEALS BEDTIME SC ; Start 02/23/19 at 11:50 Midodrine (Proamatine) 10 mg TID@09,13,17 PO Last administered on 02/28/19 13:49; Admin Dose 10 MG; Start 02/23/19 at 13:00 Insulin Aspart (Novolog Insulin Pen) 4 unit WITH MEALS SC Last administered on 02/28/19 08:16; Admin Dose 4 UNIT; Start 02/23/19 at 17:55 Ascorbic Acid (Vitamin C) 500 mg BID PO Last administered on 02/28/19 09:23; Admin Dose 500 MG; Start 02/24/19 at 21:00; Stop 03/26/19 at 20:59 Ferrous Sulfate (Ferrous Sulfate (Ec)) 325 mg BID PO Last administered on 02/28/19 09:22; Admin Dose 325 MG; Start 02/24/19 at 21:00; Stop 03/26/19 at 20:59 Furosemide (Lasix) 20 mg BID DIURETICS PO Last administered on 02/28/19 05:28; Admin Dose 20 MG; Start 02/27/19 at 18:00 Spironolactone (Aldactone) 50 mg BID DIURETICS PO Last administered on 02/28/19 05:28; Admin Dose 50 MG; Start 02/27/19 at 18:00 Docusate Sodium (Colace) 200 mg BID PO Last administered on 02/28/19 09:23; Admin Dose 200 MG; Start 02/27/19 at 21:00 Bismuth Subsalicylate (Pepto-Bismol) 30 ml QID PO Last administered on 02/28/19at 13:49; Admin Dose 30 ML; Start 02/27/19 at 21:00 Ceftriaxone Sodium 50 ml @ 100 mls/hr Q24H IVPB Last administered on 02/28/19at 15:34; Admin Dose 100 MLS/HR; Start 02/28/19 at 15:00 BRENDEN AGUAYO M.D. Feb 28, 2019 16:31
--- NOTE | 2019-02-28 16:41 | PN ---
Date/Time of Note Date/Time of Note DATE: 02/28/19 TIME: 16:17 Assessment/Plan VTE Prophylaxis Risk score (from Ns)>0 risk: 4 SCD applied (from [facility]): Yes Pharmacological prophylaxis: NA/contraindicated Pharm contraindication: liver dx Lines/Catheters IV Catheter Type (from [facility] [place] Urinary Cath still in place: No Assessment/Plan Hospital Course Anasarca secondary to cirrhosis -Ultrasound of the liver does confirm cirrhosis -Hepatitis panel and MATI are negative, patient does have an extensive history of alcohol abuse in the past but did quit few years ago, no reports of opiate abuse -Autoimmune hepatitis and PBC unlikely but follow-up on anti-smooth muscle and antimitochondrial antibodies -Patient with mild ascites, pleural effusions and testicular swelling which have improved significantly with Aldactone and Lasix -Continue Lasix and Aldactone -No further interventions per urology -Ultrasound-guided thoracentesis for both diagnostic and therapeutic purposes FUO/SIRS: -Fevers have not resolved with abx. Extensive imaging negative for malignancy or infection, WBC scan negative previously and no evidence of leukemia or lymphoma -Translocation has been noted but have spoken to pathologist and there is no actual evidence of leukemia currently and translocation may be inconsequential at this time -Repeat echo shows no evidence of vegetation -ID has ordered multiple further stains of bone marrow including TB -Rheumatology consultation obtained -Etiology is not secondary to hyperthyroidism per endocrine -Follow-up on thoracentesis with fluid analysis Hyperthyroid: - Off of anti-thyroidal meds per endocrine in anticipation of ablation as outpatient Tachycardia 2/2 hyperthyroid: - Metoprolol titration Lactic acidosis secondary to cirrhosis Pancytopenia secondary to cirrhosis - Flow cytometry suggested mild atypia, bone marrow biopsy wnl. LDH very elevated of unclear significance at this time, once again have discussed case with pathology and patient has no evidence of leukemia -Hematology following DMII: - Basal/bolus insulin Hyponatremia secondary to liver disease -DC salt tablets which may be exacerbating anasarca H Pylori infection: - 3x therapy per ID Discharge plan: Anasarca has improved with diuretics, follow-up with thoracentesis and further bone marrow infectious stains Result Diagram: 02/28/19 0700 02/28/19 0700 Results 24hrs Laboratory Tests Test 02/27/19 16:35 02/27/19 17:22 02/27/19 17:47 02/27/19 20:20 Urine Color YELLOW Urine Clarity CLEAR Urine pH 5.0 Urine Specific 1.014 [place] Urine Ketones NEGATIVE Urine Nitrite NEGATIVE Urine Bilirubin NEGATIVE Urine Urobilinogen NEGATIVE Urine Leukocyte NEGATIVE Esterase Urine Hemoglobin NEGATIVE Urine Glucose NEGATIVE Urine Total Protein NEGATIVE Bedside Glucose 95 66 L Prothrombin Time 15.2 H Prothrombin Time 1.2 Ratio INR International 1.19 Normalized Ratio Activated 41.3 H Partial Thromboplast Time Test 02/27/19 20:35 02/27/19 20:52 02/27/19 21:09 02/28/19 07:00 Bedside Glucose 66 L 75 98 White Blood Count 5.8 # Red Blood Count 3.77 L Hemoglobin 9.2 L Hematocrit 28.8 L Mean Corpuscular 76.4 L Volume Mean Corpuscular 24.4 L Hemoglobin Mean Corpuscular 31.9 L Hemoglobin Concent Red Cell 21.1 H Distribution Width Platelet Count 167 # Mean Platelet Volume 10.2 Immature 0.900 H Granulocytes % Neutrophils % 48.5 Lymphocytes % 24.7 Monocytes % 25.0 H Eosinophils % 0.2 Basophils % 0.7 Nucleated Red Blood 0.0 Cells % Immature 0.050 H Granulocytes # Neutrophils # 2.8 Lymphocytes # 1.4 Monocytes # 1.4 H Eosinophils # 0.0 Basophils # 0.0 Nucleated Red Blood 0.0 Cells # Sodium Level 129 L Potassium Level 4.2 Chloride Level 94 L Carbon Dioxide Level 28 Anion Gap 7 Blood Urea Nitrogen 10 Creatinine 0.69 Est Glomerular > 60 Filtrat Rate mL/min Glucose Level 87 Calcium Level 8.5 Phosphorus Level 3.4 Magnesium Level 1.6 L Ammonia 12 Test 02/28/19 07:38 02/28/19 09:21 02/28/19 12:28 Bedside Glucose 103 114 94 Subjective 24 Hr Interval Summary Constitutional: no complaints Exam/Review of Systems Exam Vitals Vital Signs Date Temp Pulse Resp B/P (MAP) Pulse Ox O2 O2 Flow FiO2 Time Delivery Rate 02/28/19 107 16:05 02/28/19 98.1 20 100/57 90 13:01 (71) 02/28/19 Nasal 2.0 09:32 Cannula Intake and Output 02/27/19 02/27/19 02/28/19 1414:59 22:59 06:59 IntakeIntake Total 550 ml 500 ml OutputOutput Total 700 ml 850 ml BalanceBalance -150 ml -350 ml Constitutional: alert, oriented Respiratory: clear to auscultation Cardiovascular: regular rate and rhythm, rub Gastrointestinal: soft; No distended Musculoskeletal: nl extremities to inspection Results Results 24hrs Laboratory Tests Test 02/27/19 16:35 02/27/19 17:22 02/27/19 17:47 02/27/19 20:20 Urine Color YELLOW Urine Clarity CLEAR Urine pH 5.0 Urine Specific 1.014 [place] Urine Ketones NEGATIVE Urine Nitrite NEGATIVE Urine Bilirubin NEGATIVE Urine Urobilinogen NEGATIVE Urine Leukocyte NEGATIVE Esterase Urine Hemoglobin NEGATIVE Urine Glucose NEGATIVE Urine Total Protein NEGATIVE Bedside Glucose 95 66 L Prothrombin Time 15.2 H Prothrombin Time 1.2 Ratio INR International 1.19 Normalized Ratio Activated 41.3 H Partial Thromboplast Time Test 02/27/19 20:35 02/27/19 20:52 02/27/19 21:09 02/28/19 07:00 Bedside Glucose 66 L 75 98 White Blood Count 5.8 # Red Blood Count 3.77 L Hemoglobin 9.2 L Hematocrit 28.8 L Mean Corpuscular 76.4 L Volume Mean Corpuscular 24.4 L Hemoglobin Mean Corpuscular 31.9 L Hemoglobin Concent Red Cell 21.1 H Distribution Width Platelet Count 167 # Mean Platelet Volume 10.2 Immature 0.900 H Granulocytes % Neutrophils % 48.5 Lymphocytes % 24.7 Monocytes % 25.0 H Eosinophils % 0.2 Basophils % 0.7 Nucleated Red Blood 0.0 Cells % Immature 0.050 H Granulocytes # Neutrophils # 2.8 Lymphocytes # 1.4 Monocytes # 1.4 H Eosinophils # 0.0 Basophils # 0.0 Nucleated Red Blood 0.0 Cells # Sodium Level 129 L Potassium Level 4.2 Chloride Level 94 L Carbon Dioxide Level 28 Anion Gap 7 Blood Urea Nitrogen 10 Creatinine 0.69 Est Glomerular > 60 Filtrat Rate mL/min Glucose Level 87 Calcium Level 8.5 Phosphorus Level 3.4 Magnesium Level 1.6 L Ammonia 12 Test 02/28/19 07:38 02/28/19 09:21 02/28/19 12:28 Bedside Glucose 103 114 94 Medications Medication Current Medications IV Flush (NS 3 ml) 3 ml PER PROTOCOL IV ; Start 02/06/19 at 15:00 Ondansetron HCl (Zofran Inj) 4 mg Q6H PRN IV NAUSEA/VOMITING Last administered on 02/26/19at 09:34; Admin Dose 4 MG; Start 02/06/19 at 15:00 Acetaminophen (Tylenol Tab) 650 mg Q6H PRN PO .PAIN 1-3 OR TEMP Last administered on 02/26/19at 08:08; Admin Dose 650 MG; Start 02/06/19 at 15:00 Atorvastatin Calcium (Lipitor) 10 mg DAILY@21 PO Last administered on 02/27/19at 20:44; Admin Dose 10 MG; Start 02/06/19 at 21:00 Miscellaneous Information 1 ea NOTE XX ; Start 02/06/19 at 16:00 Glucose (Glutose) 15 gm Q15M PRN PO DECREASED GLUCOSE; Start 02/06/19 at 16:00 Glucose (Glutose) 22.5 gm Q15M PRN PO DECREASED GLUCOSE; Start 02/06/19 at 16:00 Dextrose (D50w Syringe) 25 ml Q15M PRN IV DECREASED GLUCOSE Last administered on 02/26/19at 17:21; Admin Dose 25 ML; Start 02/06/19 at 16:00 Dextrose (D50w Syringe) 50 ml Q15M PRN IV DECREASED GLUCOSE; Start 02/06/19 at 16:00 Glucagon (Glucagen) 1 mg Q15M PRN IM DECREASED GLUCOSE; Start 02/06/19 at 16:00 Glucose (Glutose) 15 gm Q15M PRN BUCCAL DECREASED GLUCOSE Last administered on 02/22/19at 23:24; Admin Dose 15 GM; Start 02/06/19 at 16:00 Pantoprazole (Protonix Tab) 40 mg BID@0600,1800 PO Last administered on 02/28/19at 05:28; Admin Dose 40 MG; Start 02/07/19 at 06:00 Miscellaneous Information (* Miscellaneous Pharmacy Order) Treatment of Hypoglycemia: 1.BG 51... Per protocol XX ; Start 02/08/19 at 09:00 Dextrose (D50w Syringe) 25 ml Q15M PRN IV .DECREASED GLUCOSE; Start 02/08/19 at 09:00 Dextrose (D50w Syringe) 50 ml Q15M PRN IV .DECREASED GLUCOSE; Start 02/08/19 at 09:00 Methimazole (Tapazole) 30 mg BID PO Last administered on 02/28/19at 10:57; Admin Dose 30 MG; Start 02/08/19 at 13:30 Heparin Sodium (Porcine) (Heparin (5000 Units/1ml)) 5,000 unit BID SC Last administered on 02/14/19 22:48; Admin Dose 5,000 UNIT; Start 02/11/19 at 09:00; Status Hold Acetaminophen/ Hydrocodone Bitart ([place] (5/325)) 1 tab Q6H PRN PO MODERATE PAIN LEVEL 4-6 Last administered on 02/23/19 14:08; Admin Dose 1 TAB; Start 02/12/19 at 09:00 Senna (Senokot) 2 tab BID PO Last administered on 02/28/19 09:23; Admin Dose 2 TAB; Start 02/16/19 at 21:00 Insulin Glargine (Lantus) 5 units DAILY@0930 SC Last administered on 02/28/19 09:30; Admin Dose 5 UNITS; Start 02/18/19 at 09:30 Metoprolol Tartrate (Lopressor) 50 mg Q8 PO Last administered on 02/27/19 14:2 0; Admin Dose 50 MG; Start 02/21/19 at 14:00 Morphine Sulfate (morphine) 2 mg Q4H PRN IV SEVERE PAIN LEVEL 7-10 Last administered on 02/22/19 18:33; Admin Dose 2 MG; Start 02/22/19 at 09:00 Insulin Aspart (Novolog Insulin Pen) NOVOLOG *MILD* ALGORITHM WITH MEALS BEDTIME SC ; Start 02/23/19 at 11:50 Midodrine (Proamatine) 10 mg TID@,13,17 PO Last administered on 02/28/19 13:49; Admin Dose 10 MG; Start 02/23/19 at 13:00 Insulin Aspart (Novolog Insulin Pen) 4 unit WITH MEALS SC Last administered on 02/28/19 08:16; Admin Dose 4 UNIT; Start 02/23/19 at 17:55 Ascorbic Acid (Vitamin C) 500 mg BID PO Last administered on 02/28/19 09:23; Admin Dose 500 MG; Start 02/24/19 at 21:00; Stop 03/26/19 at 20:59 Ferrous Sulfate (Ferrous Sulfate (Ec)) 325 mg BID PO Last administered on 02/28/19 09:22; Admin Dose 325 MG; Start 02/24/19 at 21:00; Stop 03/26/19 at 20:59 Furosemide (Lasix) 20 mg BID DIURETICS PO Last administered on 02/28/19 05:28; Admin Dose 20 MG; Start 02/27/19 at 18:00 Spironolactone (Aldactone) 50 mg BID DIURETICS PO Last administered on 02/28/19 05:28; Admin Dose 50 MG; Start 02/27/19 at 18:00 Docusate Sodium (Colace) 200 mg BID PO Last administered on 02/28/19at 09:23; Admin Dose 200 MG; Start 02/27/19 at 21:00 Bismuth Subsalicylate (Pepto-Bismol) 30 ml QID PO Last administered on 02/28/19 13:49; Admin Dose 30 ML; Start 02/27/19 at 21:00 Ceftriaxone Sodium 50 ml @ 100 mls/hr Q24H IVPB Last administered on 02/28/19 15:34; Admin Dose 100 MLS/HR; Start 02/28/19 at 15:00 RODRIGUEZ DOTY Feb 28, 2019 16:27
[2019-02-28] MEDS ORDERED: LIDOCAINE 1% (MPF) 5 ML VIAL ONE (17:26)
--- NOTE | 2019-02-28 17:55 | CONS ---
DATE OF ADMISSION: 02/06/2019 DATE OF CONSULTATION: TYPE OF CONSULTATION: Rheumatology. HISTORY OF PRESENT ILLNESS: The patient is a 59-year-old man with a history of hyperthyroidis m for about 10 years, possibly diagnosis Graves' disease. He also has a history of diabetes, hyperli pidemia, hypertension in the past. The patient was of Tapazole for some time up to the beginning of this year and then this was restarted; however the patient was admitted this last time on 02/06/2019 to [facility] with increased fatigue, hypotension and diffuse weakness, was noted t o be very hyperthyroid still. He also had hyponatremia. In addition, he has had pleural effusions a nd was also noted to have cirrhosis. He does have a history of heavy alcohol use in the past with he patitis serologies have been negative. He has overall improved but has continued with marked fatigue as well as intermittent fevers which he has had since admission. In addition, he also had epididymi tis recently which has improved. The patient does not speak [place] and I spoke with the . Rheu matologic review of systems had been negative for arthritis, particular headaches, rashes. Denies ab dominal pain in general. Denies shortness of breath or chest pains or cough. No history of renal di sease. Apparently, the patient had several teeth removed a few days prior to his worsening symptoms and fever. PAST MEDICAL HISTORY: Positive for diabetes and hyperthyroidism, possible hyperlipidemia and hyperte nsion in the past. In regard to hyperthyroidism, he does have enlarged thyroid, awaiting ablation. PAST SURGICAL HISTORY: None. FAMILY HISTORY: Noncontributory. SOCIAL HISTORY: The patient has a history of alcohol use, but none for 10 years. Does not smoke, do es not use illicit drugs. ALLERGIES: NO KNOWN ALLERGIES TO MEDICATIONS. MEDICATIONS: Currently: 1. Atorvastatin. 2. Pantoprazole. 3. Methimazole. 4. Insulin. 5. Midodrine. 6. Iron. 7. Ceftriaxone, restarted. PHYSICAL EXAMINATION: GENERAL: Well-developed, well-nourished man, alert. SKIN: Without acute lesions. HEENT: Without acute oral or ocular lesions. NECK: Without definite masses noted. Supple. CHEST: Clear to auscultation. HEART: Regular rate and rhythm. Proximal and distal pulses are full. ABDOMEN: Soft without masses or tenderness noted. EXTREMITIES: Joints with good range of motion without synovitis. NEUROLOGIC: Grossly intact. Chart was reviewed. Laboratory studies were reviewed. ASSESSMENT: 1. Fever of unknown origin, along with marked fatigue of unclear etiology. Infection workup until n ow has been basically negative. In view of the dental work that he had prior to the development of s ymptoms, I agree with the infectious disease consultants' recommendations of evaluations for possible bacterial endocarditis. The patient has a negative MATI and rheumatoid factor, although I cannot rul e out possible vasculitic syndrome at this point. 2. Hyperthyroidism. 3. Status post epididymitis. 4. Positive QuantiFERON Gold a few months ago with negative repeat and no evidence of active tubercu losis at present. 5. Cirrhosis. 6. Iron deficiency anemia and possibly related to bone marrow suppression as well, unclear etiology. RECOMMENDATIONS: 1. We will order additional laboratory studies including ANCA and angiotensin converting enzyme. 2. Suggest further cardiac evaluation for possibility of bacterial endocarditis. 3. If cardiac evaluation is negative, we could consider trial of corticosteroids that would start wi th low doses. Thank for allowing me see the patient rheumatologically. We will follow while the hospital. Dictated By: LISSETT WEST MD CW/NTS Conf#: [id number] DID#: [id number] CC: ANA GARCIA MD; RODRIGUEZ DOTY MD; PURVI QUIGLEY MD;*[facility]*
[2019-02-28] MEDS: ATORVASTATIN 10 MG TAB PO SCH (20:35)
[2019-02-28] MEDS: ACETAMINOPHEN 325 MG TAB PO PRN (20:48)
[2019-03-01] VITALS (9 sets, daily range): BP systolic 90–106; BP diastolic 54–65; PULSE 84–131; RESP 18–20
[2019-03-01] MEDS: METOPROLOL 50 MG TAB PO SCH ×3 (05:28→22:00)
[2019-03-01] MEDS: SPIRONOLACTONE 50 MG TAB PO SCH ×2 (05:29→17:56)
[2019-03-01] MEDS: FUROSEMIDE 20 MG TAB PO SCH ×2 (05:29→17:56)
[2019-03-01] MEDS: PANTOPRAZOLE (EC) 40 MG TAB PO SCH ×2 (05:30→17:56)
[2019-03-01] MEDS: INSULIN ASPART [NOVOLOG] 3 ML PEN SC SCH ×7 (07:55→21:00)
[2019-03-01] MEDS: MIDODRINE 5 MG TAB PO SCH ×4 (09:00→17:55)
[2019-03-01] MEDS: ASCORBIC ACID 500 MG TAB PO SCH ×2 (09:12→21:07)
[2019-03-01] MEDS: SENNA TAB PO SCH ×2 (09:13→21:06)
[2019-03-01] MEDS: FERROUS SULFATE (EC) 325 MG TAB PO SCH ×2 (09:13→21:05)
[2019-03-01] MEDS: METHIMAZOLE 5 MG TAB PO SCH ×2 (09:13→21:07)
[2019-03-01] MEDS: DOCUSATE SODIUM 100 MG CAP PO SCH ×2 (09:13→21:05)
[2019-03-01] MEDS: BISMUTH SUBSALICYLATE 240 ML BTL PO SCH ×4 (09:14→21:06)
--- NOTE | 2019-03-01 09:29 | PN ---
DATE: 03/01/2019 SUBJECTIVE: The patient overnight was noted to be hypertensive. Diuretic therapy was held. The pat ient had thoracentesis with approximately 1 liter removed. No other events noted. OBJECTIVE: VITAL SIGNS: Blood pressure is 95/65, respiration 18, pulse 131, temperature 98.2. HEENT: Head is normocephalic. NECK: Supple. HEART: Regular rate. LUNGS: Show diminished breath sounds at the base. ABDOMEN: Soft, nontender to palpation without rebound or guarding. EXTREMITIES: Negative for clubbing, cyanosis. Positive edema. DERMATOLOGIC: No rashes. MUSCULOSKELETAL: No joint effusion. NEUROLOGIC: No change in exam. MEDICATIONS: The patient's medications have been reviewed. LABORATORY DATA: From 02/28/2019 was reviewed. Laboratory data from 03/01/2019 is pending. ASSESSMENT AND PLAN: 1. Hyponatremia, etiology is likely due to underlying cirrhosis. The patient's sodium levels are sl owly improving. Continue free water restriction, continue diuretic therapy as tolerated. 2. Volume overload secondary to cirrhosis. Continue low-dose diuretic therapy as tolerated. Contin ue low salt diet and monitor. 3. Hypotension, etiology is likely due to hemodynamics cirrhosis. Continue to monitor closely, adju st diuretic therapy as needed. The patient remains on midodrine. 4. Decompensated cirrhosis. The patient is currently on diuretics, Lasix and Aldactone. Continue m edical management. 5. Graves' disease. Continue current treatment plan per endocrinology. 6. Thrombocytopenia, likely from cirrhosis. Continue to monitor. 7. Systemic inflammatory response syndrome. Etiology is unclear. Continue to observe. Workup per primary team. 8. Lactic acidosis. Etiology may be secondary to cirrhosis, hemodynamics. Continue to monitor. 9. History of arrhythmia. Continue to monitor. Follow up with cardiology. Dictated By: DIANNA SAWYER DO NR/NTS Conf#: [id number] DID#: [id number] CC: ANA GARCIA MD; PURVI QUIGLEY MD; RODRIGUEZ DOTY MD;*End*
[2019-03-01] MEDS: INSULIN GLARGINE [LANTus] (100 UNITS/ML) SYG SC SCH (10:02)
[2019-03-01] MEDS: ONDANSETRON 4 MG INJ IV PRN ×2 (10:08→22:50)
[2019-03-01] MEDS ORDERED: ALBUMIN HUMAN 25% 100 ML IV ONE (10:30)
--- NOTE | 2019-03-01 11:21 | CONS ---
Assessment/Plan Assessment/Plan Hospital Course (Demo Recall) assessment/impression # recurrent fever, SIRS vs. epididymitis vs. other infectious etiologies - persistent bilateral epididymitis, although ultrasound on 02/27/2019 showed improvement. Pt took vac and cefe (12/11/2018-12/14/18) - persistent gram negative bacteria (MDR Enterobacter) in urine 02/27/2019, urine for gonorrhea and chlamydia was negative on 02/21/2019, urine culture <10K Citrobacter and <10K ashley on 02/13/2019 - procalcitonin unremarkable: <0.1, 0.11, 0.2 - elevated ESR, lactic acid, C reactive protein - extraction of lower teeth prior to the start of fever - past exposure to EBV - The following is negative: HIV screening, HIV viral load, cryptococcus antigen, mono, Dengue serology, blood smear for malaria, resp virus panel, MTB complex, HSV 1&2 by PCR, CMV, WBC scan on 12/18/2018, acute hepatitis panel, stool O&P - the following is negative too: rheumatoid factor, MATI, HIT panel, thyroglobulin, thyroid antimicrosomal # heme - s/p bone marrow biopsy 02/19/19, no e/o leukemia/lymphoma per conversation with Dr. Carvajal on 02/28/2019 - gastritis due to H. pylori: diagnosed by H. 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 AFB smear of sputum was negative on 12/11/2018, 12/13/2018, and 12/19/2018; repeat QTB gold negative on 12/16/2018 - mod-large pleural effusions per CT chest 02/22/19. Scheduled for thoracentesis on 02/28/2019 - Hx K. Penumo ESBL in sputum cx on 12/15/2018, likely colonizer # endo and cardiac - Graves disease with exophthalmos - Hyperthyroidism - on Tapazole - T2DM - Hgb A1c 5.6% - SVT on 02/17/2019, s/p adenosine recommendations: - pending results: hepatitis B viral load and hepatitis C viral load, R. typhus antibody, IgD level, Leishmania IgG - ordered the following tests for thoracentesis: cultures of bacteria, fungi and AFB, MTB complex NAAT probe to pleural fluid, cytology, O&P (Cx shows NGTD) - Dr. Rodriguez discussed with Dr. Carvajal and requested that the following tests be done on Pt's bone marrow Bx from 02/19/2019: Giemsa stain to eval toxoplasma, leishmania, immunohistochemical stain for CMV, EBV, HSV and HHV8, AFB stain (AFB culture cannot be done because there is no more spare sample) - We recommend MADDIE to r/o valvular vegetation as Pt's daughter informed us that 2-3 days after Pt's lower teeth were removed by a dentist, Pt started having fever. I recommend transesophageal echo to r/o valvular vegetation. - change ceftriaxone (restart 02/27/2019-) to cefepime (03/01/2019-) - f/u Rheumatology w/u; Appreciate Dr. Berrios's input. Management d/w ADDISON Riggs and Dr. Tomas Consultation Date/Type/Reason Admit Date/Time Feb 06, 2019 at 14:46 Initial Consult Date 02/14/19 Type of Consult Infectious Disease Requesting Provider: KIRK AREVALO MD Date/Time of Note DATE: 03/01/19 TIME: 11:20 24 HR Interval Summary Free Text/Dictation S/p US guided R thoracentesis yesterday with 1 liter removed. Pt's RN reports that pt had CP this am, tachycardia with HR 140's and hypotension and pt is currently getting albumin. Currently denies pain or SOB. Urine cx grew MDR Enterobacter resistant to ceftriaxone. Tmax 99.7F Exam/Review of Systems Exam Vitals Vital Signs Date Temp Pulse Resp B/P (MAP) Pulse Ox O2 O2 Flow FiO2 Time Delivery Rate 03/01/19 128 08:00 03/01/19 98.2 18 95/65 (75) 94 Nasal 07:38 Cannula 03/01/19 4.0 00:00 Intake and Output 02/28/19 02/28/19 03/01/19 1515:00 23:00 07:00 IntakeIntake Total 700 ml 450 ml OutputOutput Total 500 ml 750 ml BalanceBalance 200 ml -300 ml Exam Constitutional: alert, oriented, well developed, frail Psych: nl mood/affect Head: normocephalic, atraumatic Eyes: nl conjunctiva, nl lids, nl sclera ENMT: nl external ears & nose, nl nasal mucosa & septum, mucosa pink and moist Neck: supple Respiratory: normal air movement, diminished breath sounds (at bases), other (On O2 at 2L via NC) Cardiovascular: nl pulses, other (tachycardic, regular rhythm) Gastrointestinal: soft, non-tender Genitourinary - Male: other (no Collins; +decreased scrotal swelling) Musculoskeletal: nl extremities to inspection; No swelling Extremities: normal pulses Neurological: nl mental status Skin: nl turgor; No rash or lesions Results Result Diagram: 02/28/19 0700 03/01/19 0721 Results 24hrs Laboratory Tests Test 02/28/19 12:28 02/28/19 17:20 02/28/19 18:08 02/28/19 20:38 Bedside Glucose 94 88 85 Body Fluid Type THORACENTESIS FL UID Body Fluid Volume 1050.0 Body Fluid Color YELLOW Body Fluid HAZY Appearance Body Fluid WBC 32 Body Fluid RBC 0 (Auto) Body Fluid 6.2 Polynuclear WBCs (%) Body Fluid 93.8 Mononuclear Cells % Auto Body Fluid 88 Glucose Body Fluid Total < 2.0 Protein Body Fluid 512 Lactate Dehydroge nase Test 03/01/19 07:21 03/01/19 08:42 03/01/19 09:52 Sodium Level 130 L Potassium Level 5.1 Chloride Level 93 L Carbon Dioxide 30 Level Anion Gap 7 Blood Urea 13 Nitrogen Creatinine 0.76 Est Glomerular > 60 Filtrat Rate mL/min Glucose Level 85 Calcium Level 9.0 Phosphorus Level 4.2 Magnesium Level 1.7 Bedside Glucose 91 102 Medications Medication Current Medications IV Flush (NS 3 ml) 3 ml PER PROTOCOL IV ; Start 02/06/19 at 15:00 Ondansetron HCl (Zofran Inj) 4 mg Q6H PRN IV NAUSEA/VOMITING Last administered on 03/01/19at 10:08; Admin Dose 4 MG; Start 02/06/19 at 15:00 Acetaminophen (Tylenol Tab) 650 mg Q6H PRN PO .PAIN 1-3 OR TEMP Last adm inistered on 02/28/19at 20:48; Admin Dose 650 MG; Start 02/06/19 at 15:00 Atorvastatin Calcium (Lipitor) 10 mg DAILY@21 PO Last administered on 02/28/19at 20:35; Admin Dose 10 MG; Start 02/06/19 at 21:00 Miscellaneous Information 1 ea NOTE XX ; Start 02/06/19 at 16:00 Glucose (Glutose) 15 gm Q15M PRN PO DECREASED GLUCOSE; Start 02/06/19 at 16:00 Glucose (Glutose) 22.5 gm Q15M PRN PO DECREASED GLUCOSE; Start 02/06/19 at 16:00 Dextrose (D50w Syringe) 25 ml Q15M PRN IV DECREASED GLUCOSE Last administered on 02/26/19at 17:21; Admin Dose 25 ML; Start 02/06/19 at 16:00 Dextrose (D50w Syringe) 50 ml Q15M PRN IV DECREASED GLUCOSE; Start 02/06/19 at 16:00 Glucagon (Glucagen) 1 mg Q15M PRN IM DECREASED GLUCOSE; Start 02/06/19 at 16:00 Glucose (Glutose) 15 gm Q15M PRN BUCCAL DECREASED GLUCOSE Last administered on 02/22/19at 23:24; Admin Dose 15 GM; Start 02/06/19 at 16:00 Pantoprazole (Protonix Tab) 40 mg BID@0600,1800 PO Last administered on 03/01/19at 05:30; Admin Dose 40 MG; Start 02/07/19 at 06:00 Miscellaneous Information (* Miscellaneous Pharmacy Order) Treatment of Hypoglycemia: 1.BG 51... Per protocol XX ; Start 02/08/19 at 09:00 Dextrose (D50w Syringe) 25 ml Q15M PRN IV .DECREASED GLUCOSE; Start 02/08/19 at 09:00 Dextrose (D50w Syringe) 50 ml Q15M PRN IV .DECREASED GLUCOSE; Start 02/08/19 at 09:00 Methimazole (Tapazole) 30 mg BID PO Last administered on 03/01/19at 09:13; Admin Dose 30 MG; Start 02/08/19 at 13:30 Heparin Sodium (Porcine) (Heparin (5000 Units/1ml)) 5,000 unit BID SC Last administered on 02/14/19at 22:48; Admin Dose 5,000 UNIT; Start 02/11/19 at 09:00; Status Hold Acetaminophen/ Hydrocodone Bitart ([place] (5/325)) 1 tab Q6H PRN PO MODERATE PAIN LEVEL 4-6 Last administered on 02/23/19 14:08; Admin Dose 1 TAB; Start 02/12/19 at 09:00 Senna (Senokot) 2 tab BID PO Last administered on 03/01/19 09:13; Admin Dose 2 TAB; Start 02/16/19 at 21:00 Insulin Glargine (Lantus) 5 units DAILY@0930 SC Last administered on 03/01/19 10:02; Admin Dose 5 UNITS; Start 02/18/19 at 09:30 Metoprolol Tartrate (Lopressor) 50 mg Q8 PO Last administered on 02/27/19 14:20; Admin Dose 50 MG; Start 02/21/19 at 14:00 Morphine Sulfate (morphine) 2 mg Q4H PRN IV SEVERE PAIN LEVEL 7-10 Last administered on 02/22/19 18:33; Admin Dose 2 MG; Start 02/22/19 at 09:00 Insulin Aspart (Novolog Insulin Pen) NOVOLOG *MILD* ALGORITHM WITH MEALS BEDTIME SC ; Start 02/23/19 at 11:50 Midodrine (Proamatine) 10 mg TID@09,13,17 PO Last administered on 03/01/19 10:07; Admin Dose 10 MG; Start 02/23/19 at 13:00 Insulin Aspart (Novolog Insulin Pen) 4 unit WITH MEALS SC Last administered on 03/01/19 09:29; Admin Dose 4 UNIT; Start 02/23/19 at 17:55 Ascorbic Acid (Vitamin C) 500 mg BID PO Last administered on 03/01/19 09:12; Admin Dose 500 MG; Start 02/24/19 at 21:00; Stop 03/26/19 at 20:59 Ferrous Sulfate (Ferrous Sulfate (Ec)) 325 mg BID PO Last administered on 03/01/19 09:13; Admin Dose 325 MG; Start 02/24/19 at 21:00; Stop 03/26/19 at 20:59 Furosemide (Lasix) 20 mg BID DIURETICS PO Last administered on 02/28/19 18:13; Admin Dose 20 MG; Start 02/27/19 at 18:00 Spironolactone (Aldactone) 50 mg BID DIURETICS PO Last administered on 02/28/19 18:13; Admin Dose 50 MG; Start 02/27/19 at 18:00 Docusate Sodium (Colace) 200 mg BID PO Last administered on 03/01/19at 09:13; Admin Dose 200 MG; Start 02/27/19 at 21:00 Bismuth Subsalicylate (Pepto-Bismol) 30 ml QID PO Last administered on 03/01/19at 09:14; Admin Dose 30 ML; Start 02/27/19 at 21:00 Ceftriaxone Sodium 50 ml @ 100 mls/hr Q24H IVPB Last administered on 02/28/19at 15:34; Admin Dose 100 MLS/HR; Start 02/28/19 at 15:00 Albumin Human 100 ml @ 100 mls/hr ONCE ONCE IV Last administered on 03/01/19at 10:46; Admin Dose 100 MLS/HR; Start 03/01/19 at 10:30; Stop 03/01/19 at 11:29 NESTOR HUGHES NP Mar 01, 2019 11:21
--- NOTE | 2019-03-01 12:35 | PN ---
Date/Time of Note Date/Time of Note DATE: 03/01/19 TIME: 12:32 Assessment/Plan VTE Prophylaxis Risk score (from Ns)>0 risk: 4 SCD applied (from Ns): Yes Pharmacological prophylaxis: NA/contraindicated Pharm contraindication: liver dx Lines/Catheters IV C[facility]from [facility] Peripheral IV Urinary Cath still in place: No Assessment/Plan Hospital Course Anasarca secondary to cirrhosis -Ultrasound of the liver does confirm cirrhosis -Hepatitis panel and MATI are negative, patient does have an extensive history of alcohol abuse in the past but did quit few years ago, no reports of opiate abuse -Autoimmune hepatitis and PBC unlikely but follow-up on anti-smooth muscle and antimitochondrial antibodies -Patient with mild ascites, pleural effusions and testicular swelling which have improved significantly with Aldactone and Lasix -Continue Lasix and Aldactone -No further interventions per urology -Ultrasound-guided thoracentesis has been done for both diagnostic and therapeutic purposes FUO/SIRS: -Fevers have not resolved with abx. Extensive imaging negative for malignancy or infection, WBC scan negative previously and no evidence of leukemia or l ymphoma -Translocation has been noted but have spoken to pathologist and there is no actual evidence of leukemia currently and translocation may be inconsequential at this time -Repeat echo shows no evidence of vegetation -ID has ordered multiple further stains of bone marrow including TB -Rheumatology consultation obtained -Etiology is not secondary to hyperthyroidism per endocrine -Follow-up on thoracentesis fluid culture Hypotension secondary to cirrhosis and third spacing -Albumin bolus Hyperthyroid: - Off of anti-thyroidal meds per endocrine in anticipation of ablation as outpatient Tachycardia 2/2 hyperthyroid and intravascular depletion - Metoprolol titration Lactic acidosis secondary to cirrhosis Pancytopenia secondary to cirrhosis - Flow cytometry suggested mild atypia, bone marrow biopsy wnl. LDH very elevated of unclear significance at this time, once again have discussed case with pathology and patient has no evidence of leukemia -Hematology following DMII: - Basal/bolus insulin Hyponatremia secondary to liver disease -Have discontinued salt tablets which may have been exacerbating anasarca H Pylori infection: - 3x therapy per ID Discharge plan: Patient continues to have fevers, anasarca has improved with diuretics, follow-up with thoracentesis and further bone marrow infectious stains Result Diagram: 02/28/19 0700 03/01/19 0721 Results 24hrs Laboratory Tests Test 02/28/19 17:20 02/28/19 18:08 02/28/19 20:38 03/01/19 07:21 Body Fluid Type THORACENTESIS FL UID Body Fluid Volume 1050.0 Body Fluid Color YELLOW Body Fluid HAZY Appearance Body Fluid WBC 32 Body Fluid RBC 0 (Auto) Body Fluid 6.2 Polynuclear WBCs (%) Body Fluid 93.8 Mononuclear Cells % Auto Body Fluid 88 Glucose Body Fluid Total < 2.0 Protein Body Fluid 512 Lactate Dehydroge nase Bedside Glucose 88 85 Sodium Level 130 L Potassium Level 5.1 Chloride Level 93 L Carbon Dioxide 30 Level Anion Gap 7 Blood Urea 13 Nitrogen Creatinine 0.76 Est Glomerular > 60 Filtrat Rate mL/min Glucose Level 85 Calcium Level 9.0 Phosphorus Level 4.2 Magnesium Level 1.7 Test 03/01/19 08:42 03/01/19 09:52 03/01/19 12:04 Bedside Glucose 91 102 76 Subjective 24 Hr Interval Summary Free Text/Dictation Generalized weakness, palpitation Exam/Review of Systems Exam Vitals Vital Signs Date Temp Pulse Resp B/P (MAP) Pulse Ox O2 O2 Flow FiO2 Time Delivery Rate 03/01/19 98.0 118 18 90/59 (69) 95 Nasal 11:22 Cannula 03/01/19 2.0 08:00 Intake and Output 02/28/19 02/28/19 03/01/19 1515:00 23:00 07:00 IntakeIntake Total 700 ml 450 ml OutputOutput Total 500 ml 750 ml BalanceBalance 200 ml -300 ml Constitutional: alert Respiratory: clear to auscultation Cardiovascular: irregular rhythm Gastrointestinal: soft; No distended Musculoskeletal: nl extremities to inspection Results Results 24hrs Laboratory Tests Test 02/28/19 17:20 02/28/19 18:08 02/28/19 20:38 03/01/19 07:21 Body Fluid Type THORACENTESIS FL UID Body Fluid Volume 1050.0 Body Fluid Color YELLOW Body Fluid HAZY Appearance Body Fluid WBC 32 Body Fluid RBC 0 (Auto) Body Fluid 6.2 Polynuclear WBCs (%) Body Fluid 93.8 Mononuclear Cells % Auto Body Fluid 88 Glucose Body Fluid Total < 2.0 Protein Body Fluid 512 Lactate Dehydroge nase Bedside Glucose 88 85 Sodium Level 130 L Potassium Level 5.1 Chloride Level 93 L Carbon Dioxide 30 Level Anion Gap 7 Blood Urea 13 Nitrogen Creatinine 0.76 Est Glomerular > 60 Filtrat Rate mL/min Glucose Level 85 Calcium Level 9.0 Phosphorus Level 4.2 Magnesium Level 1.7 Test 03/01/19 08:42 03/01/19 09:52 03/01/19 12:04 Bedside Glucose 91 102 76 Medications Medication Current Medications IV Flush (NS 3 ml) 3 ml PER PROTOCOL IV ; Start 02/06/19 at 15:00 Ondansetron HCl (Zofran Inj) 4 mg Q6H PRN IV NAUSEA/VOMITING Last administered on 03/01/19at 10:08; Admin Dose 4 MG; Start 02/06/19 at 15:00 Acetaminophen (Tylenol Tab) 650 mg Q6H PRN PO .PAIN 1-3 OR TEMP Last administered on 02/28/19at 20:48; Admin Dose 650 MG; Start 02/06/19 at 15:00 Atorvastatin Calcium (Lipitor) 10 mg DAILY@21 PO Last administered on 02/28/19at 20:35; Admin Dose 10 MG; Start 02/06/19 at 21:00 Miscellaneous Information 1 ea NOTE XX ; Start 02/06/19 at 16:00 Glucose (Glutose) 15 gm Q15M PRN PO DECREASED GLUCOSE; Start 02/06/19 at 16:00 Glucose (Glutose) 22.5 gm Q15M PRN PO DECREASED GLUCOSE; Start 02/06/19 at 16:00 Dextrose (D50w Syringe) 25 ml Q15M PRN IV DECREASED GLUCOSE Last administered on 02/26/19at 17:21; Admin Dose 25 ML; Start 02/06/19 at 16:00 Dextrose (D50w Syringe) 50 ml Q15M PRN IV DECREASED GLUCOSE; Start 02/06/19 at 16:00 Glucagon (Glucagen) 1 mg Q15M PRN IM DECREASED GLUCOSE; Start 02/06/19 at 16:00 Glucose (Glutose) 15 gm Q15M PRN BUCCAL DECREASED GLUCOSE Last administered on 02/22/19at 23:24; Admin Dose 15 GM; Start 02/06/19 at 16:00 Pantoprazole (Protonix Tab) 40 mg BID@0600,1800 PO Last administered on 03/01/19at 05:30; Admin Dose 40 MG; Start 02/07/19 at 06:00 Miscellaneous Information (* Miscellaneous Pharmacy Order) Treatment of Hypoglycemia: 1.BG 51... Per protocol XX ; Start 02/08/19 at 09:00 Dextrose (D50w Syringe) 25 ml Q15M PRN IV .DECREASED GLUCOSE; Start 02/08/19 at 09:00 Dextrose (D50w Syringe) 50 ml Q15M PRN IV .DECREASED GLUCOSE; Start 02/08/19 at 09:00 Methimazole (Tapazole) 30 mg BID PO Last administered on 03/01/19 09:13; Admin Dose 30 MG; Start 02/08/19 at 13:30 Heparin Sodium (Porcine) (Heparin (5000 Units/1ml)) 5,000 unit BID SC Last administered on 02/14/19 22:48; Admin Dose 5,000 UNIT; Start 02/11/19 at 09:00; Status Hold Acetaminophen/ Hydrocodone Bitart ([place] (5/325)) 1 tab Q6H PRN PO MODERATE PAIN LEVEL 4-6 Last administered on 02/23/19at 14:08; Admin Dose 1 TAB; Start 02/12/19 at 09:00 Senna (Senokot) 2 tab BID PO Last administered on 03/01/19 09:13; Admin Dose 2 TAB; Start 02/16/19 at 21:00 Insulin Glargine (Lantus) 5 units DAILY@0930 SC Last administered on 03/01/19 10:02; Admin Dose 5 UNITS; Start 02/18/19 at 09:30 Metoprolol Tartrate (Lopressor) 50 mg Q8 PO Last administered on 02/27/19 14:20; Admin Dose 50 MG; Start 02/21/19 at 14:00 Morphine Sulfate (morphine) 2 mg Q4H PRN IV SEVERE PAIN LEVEL 7-10 Last administered on 02/22/19 18:33; Admin Dose 2 MG; Start 02/22/19 at 09:00 Insulin Aspart (Novolog Insulin Pen) NOVOLOG *MILD* ALGORITHM WITH MEALS BEDTIME SC ; Start 02/23/19 at 11:50 Midodrine (Proamatine) 10 mg TID@09,13,17 PO Last administered on 03/01/19 10:07; Admin Dose 10 MG; Start 02/23/19 at 13:00 Insulin Aspart (Novolog Insulin Pen) 4 unit WITH MEALS SC Last administered on 03/01/19 12:14; Admin Dose 4 UNIT; Start 02/23/19 at 17:55 Ascorbic Acid (Vitamin C) 500 mg BID PO Last administered on 03/01/19 09:12; Admin Dose 500 MG; Start 02/24/19 at 21:00; Stop 03/26/19 at 20:59 Ferrous Sulfate (Ferrous Sulfate (Ec)) 325 mg BID PO Last administered on 03/01/19 09:13; Admin Dose 325 MG; Start 02/24/19 at 21:00; Stop 03/26/19 at 20:59 Furosemide (Lasix) 20 mg BID DIURETICS PO Last administered on 02/28/19 18:13; Admin Dose 20 MG; Start 02/27/19 at 18:00 Spironolactone (Aldactone) 50 mg BID DIURETICS PO Last administered on 02/28/19 18:13; Admin Dose 50 MG; Start 02/27/19 at 18:00 Docusate Sodium (Colace) 200 mg BID PO Last administered on 03/01/19 09:13; Admin Dose 200 MG; Start 02/27/19 at 21:00 Bismuth Subsalicylate (Pepto-Bismol) 30 ml QID PO Last administered on 03/01/19 09:14; Admin Dose 30 ML; Start 02/27/19 at 21:00 Ceftriaxone Sodium 50 ml @ 100 mls/hr Q24H IVPB Last administered on 02/28/19 15:34; Admin Dose 100 MLS/HR; Start 02/28/19 at 15:00 RODRIGUEZ DOTY Mar 01, 2019 12:35
[2019-03-01] MEDS: CEFEPIME 1GM/50 ML (PMX) 50 ML IVPB SCH ×2 (13:54→21:05)
--- NOTE | 2019-03-01 14:05 | CONS ---
Assessment/Plan Assessment/Plan Problems: (1) Graves' disease with exophthalmos Status: Chronic Comment: Back on medication. Please note the question was raised that since he has negative antithyroid antibodies whether or not this is truly Graves' disease. Graves' disease can have the positive antithyroid antibodies they are not the pathognomonic finding. Usually the test would actually be a thyroid-sti mulating immunoglobulin which is a separate send out test request diagnostics. We will go ahead and send that out. Consultation Date/Type/Reason Admit Date/Time Feb 06, 2019 at 14:46 Initial Consult Date 02/06/19 Type of Consult Endocrine Reason for Consultation Thyrotoxicosis, chronic Requesting Provider: KIRK AREVALO MD Date/Time of Note DATE: 03/01/19 TIME: 14:04 24 HR Interval Summary Free Text/Dictation No changes Exam/Review of Systems Exam Vitals Vital Signs Date Temp Pulse Resp B/P (MAP) Pulse Ox O2 O2 Flow FiO2 Time Delivery Rate 03/01/19 110 12:00 03/01/19 98.0 18 90/59 (69) 95 Nasal 11:22 Cannula 03/01/19 2.0 08:00 Intake and Output 02/28/19 02/28/19 03/01/19 1515:00 23:00 07:00 IntakeIntake Total 700 ml 450 ml OutputOutput Total 500 ml 750 ml BalanceBalance 200 ml -300 ml Exam No change in examination Results Result Diagram: 02/28/19 0700 03/01/19 0721 Results 24hrs Laboratory Tests Test 02/28/19 17:20 02/28/19 18:08 02/28/19 20:38 03/01/19 07:21 Body Fluid Type THORACENTESIS FL UID Body Fluid Volume 1050.0 Body Fluid Color YELLOW Body Fluid HAZY Appearance Body Fluid WBC 32 Body Fluid RBC 0 (Auto) Body Fluid 6.2 Polynuclear WBCs (%) Body Fluid 93.8 Mononuclear Cells % Auto Body Fluid 88 Glucose Body Fluid Total < 2.0 Protein Body Fluid 512 Lactate Dehydroge nase Bedside Glucose 88 85 Sodium Level 130 L Potassium Level 5.1 Chloride Level 93 L Carbon Dioxide 30 Level Anion Gap 7 Blood Urea 13 Nitrogen Creatinine 0.76 Est Glomerular > 60 Filtrat Rate mL/min Glucose Level 85 Calcium Level 9.0 Phosphorus Level 4.2 Magnesium Level 1.7 Test 03/01/19 08:42 03/01/19 09:52 03/01/19 12:04 Bedside Glucose 91 102 76 Medications Medication Current Medications IV Flush (NS 3 ml) 3 ml PER PROTOCOL IV ; Start 02/06/19 at 15:00 Ondansetron HCl (Zofran Inj) 4 mg Q6H PRN IV NAUSEA/VOMITING Last administered on 03/01/19at 10:08; Admin Dose 4 MG; Start 02/06/19 at 15:00 Acetaminophen (Tylenol Tab) 650 mg Q6H PRN PO .PAIN 1-3 OR TEMP Last ad ministered on 02/28/19at 20:48; Admin Dose 650 MG; Start 02/06/19 at 15:00 Atorvastatin Calcium (Lipitor) 10 mg DAILY@21 PO Last administered on 02/28/19at 20:35; Admin Dose 10 MG; Start 02/06/19 at 21:00 Miscellaneous Information 1 ea NOTE XX ; Start 02/06/19 at 16:00 Glucose (Glutose) 15 gm Q15M PRN PO DECREASED GLUCOSE; Start 02/06/19 at 16:00 Glucose (Glutose) 22.5 gm Q15M PRN PO DECREASED GLUCOSE; Start 02/06/19 at 16:00 Dextrose (D50w Syringe) 25 ml Q15M PRN IV DECREASED GLUCOSE Last administered on 02/26/19at 17:21; Admin Dose 25 ML; Start 02/06/19 at 16:00 Dextrose (D50w Syringe) 50 ml Q15M PRN IV DECREASED GLUCOSE; Start 02/06/19 at 16:00 Glucagon (Glucagen) 1 mg Q15M PRN IM DECREASED GLUCOSE; Start 02/06/19 at 16:00 Glucose (Glutose) 15 gm Q15M PRN BUCCAL DECREASED GLUCOSE Last administered on 02/22/19at 23:24; Admin Dose 15 GM; Start 02/06/19 at 16:00 Pantoprazole (Protonix Tab) 40 mg BID@0600,1800 PO Last administered on 03/01/19at 05:30; Admin Dose 40 MG; Start 02/07/19 at 06:00 Miscellaneous Information (* Miscellaneous Pharmacy Order) Treatment of Hypoglycemia: 1.BG 51... Per protocol XX ; Start 02/08/19 at 09:00 Dextrose (D50w Syringe) 25 ml Q15M PRN IV .DECREASED GLUCOSE; Start 02/08/19 at 09:00 Dextrose (D50w Syringe) 50 ml Q15M PRN IV .DECREASED GLUCOSE; Start 02/08/19 at 09:00 Methimazole (Tapazole) 30 mg BID PO Last administered on 03/01/19 09:13; Admin Dose 30 MG; Start 02/08/19 at 13:30 Heparin Sodium (Porcine) (Heparin (5000 Units/1ml)) 5,000 unit BID SC Last administered on 02/14/19 22:48; Admin Dose 5,000 UNIT; Start 02/11/19 at 09:00; Status Hold Acetaminophen/ Hydrocodone Bitart ([place] (5/325)) 1 tab Q6H PRN PO MODERATE PAIN LEVEL 4-6 Last administered on 02/23/19 14:08; Admin Dose 1 TAB; Start 02/12/19 at 09:00 Senna (Senokot) 2 tab BID PO Last administered on 03/01/19 09:13; Admin Dose 2 TAB; Start 02/16/19 at 21:00 Insulin Glargine (Lantus) 5 units DAILY@0930 SC Last administered on 03/01/19 10:02; Admin Dose 5 UNITS; Start 02/18/19 at 09:30 Metoprolol Tartrate (Lopressor) 50 mg Q8 PO Last administered on 02/27/19 14:20; Admin Dose 50 MG; Start 02/21/19 at 14:00 Morphine Sulfate (morphine) 2 mg Q4H PRN IV SEVERE PAIN LEVEL 7-10 Last administered on 02/22/19 18:33; Admin Dose 2 MG; Start 02/22/19 at 09:00 Insulin Aspart (Novolog Insulin Pen) NOVOLOG *MILD* ALGORITHM WITH MEALS BEDTIME SC ; Start 02/23/19 at 11:50 Midodrine (Proamatine) 10 mg TID@,13,17 PO Last administered on 03/01/19 13:56; Admin Dose 10 MG; Start 02/23/19 at 13:00 Insulin Aspart (Novolog Insulin Pen) 4 unit WITH MEALS SC Last administered on 03/01/19 12:14; Admin Dose 4 UNIT; Start 02/23/19 at 17:55 Ascorbic Acid (Vitamin C) 500 mg BID PO Last administered on 03/01/19 09:12; Admin Dose 500 MG; Start 02/24/19 at 21:00; Stop 03/26/19 at 20:59 Ferrous Sulfate (Ferrous Sulfate (Ec)) 325 mg BID PO Last administered on 03/01/19 09:13; Admin Dose 325 MG; Start 02/24/19 at 21:00; Stop 03/26/19 at 20:59 Furosemide (Lasix) 20 mg BID DIURETICS PO Last administered on 02/28/19 18:13; Admin Dose 20 MG; Start 02/27/19 at 18:00 Spironolactone (Aldactone) 50 mg BID DIURETICS PO Last administered on 02/28/19 18:13; Admin Dose 50 MG; Start 02/27/19 at 18:00 Docusate Sodium (Colace) 200 mg BID PO Last administered on 03/01/19 09:13; Ad min Dose 200 MG; Start 02/27/19 at 21:00 Bismuth Subsalicylate (Pepto-Bismol) 30 ml QID PO Last administered on 03/01/19 13:54; Admin Dose 30 ML; Start 02/27/19 at 21:00 Cefepime HCl 50 ml @ 100 mls/hr Q12 IVPB Last administered on 03/01/19 13:54; Admin Dose 100 MLS/HR; Start 03/01/19 at 13:00 ANA GARCIA MD Mar 01, 2019 14:05
[2019-03-01] MEDS: ATORVASTATIN 10 MG TAB PO SCH (21:06)
[2019-03-02] VITALS (9 sets, daily range): BP systolic 90–116; BP diastolic 51–68; PULSE 69–117; RESP 17–20
[2019-03-02] MEDS: SPIRONOLACTONE 50 MG TAB PO SCH ×2 (05:57→17:38)
[2019-03-02] MEDS: FUROSEMIDE 20 MG TAB PO SCH ×2 (05:57→17:39)
[2019-03-02] MEDS: PANTOPRAZOLE (EC) 40 MG TAB PO SCH ×2 (05:58→17:47)
[2019-03-02] MEDS: METOPROLOL 50 MG TAB PO SCH ×3 (05:58→21:09)
[2019-03-02] MEDS: INSULIN ASPART [NOVOLOG] 3 ML PEN SC SCH ×7 (07:55→21:00)
[2019-03-02] MEDS ORDERED: MAGNESIUM SULFATE 2 GM/50 ML 50 ML IVPB ONE (08:30)
[2019-03-02] MEDS: ASCORBIC ACID 500 MG TAB PO SCH ×2 (08:44→21:08)
[2019-03-02] MEDS: MIDODRINE 5 MG TAB PO SCH ×3 (08:44→17:47)
[2019-03-02] MEDS: FERROUS SULFATE (EC) 325 MG TAB PO SCH ×2 (08:44→21:08)
[2019-03-02] MEDS: DOCUSATE SODIUM 100 MG CAP PO SCH ×2 (08:44→21:08)
[2019-03-02] MEDS: CEFEPIME 1GM/50 ML (PMX) 50 ML IVPB SCH ×2 (08:45→21:06)
[2019-03-02] MEDS: BISMUTH SUBSALICYLATE 240 ML BTL PO SCH ×4 (08:45→21:10)
[2019-03-02] MEDS: METHIMAZOLE 5 MG TAB PO SCH ×2 (08:45→21:07)
[2019-03-02] MEDS: SENNA TAB PO SCH ×2 (08:45→21:08)
--- NOTE | 2019-03-02 08:54 | PN ---
DATE: 03/02/2019 SUBJECTIVE: The patient is currently stable. No events overnight. OBJECTIVE: VITAL SIGNS: Blood pressure is 92/61, respirations 20, pulse 100, temperature 98.0. HEENT: Head is normocephalic. NECK: Supple. HEART: Regular rate. LUNGS: Show diminished breath sounds at the base. ABDOMEN: Soft, nontender to palpation. No rebound or guarding. EXTREMITIES: Negative for clubbing, cyanosis, positive edema. DERMATOLOGIC: No rashes. MUSCULOSKELETAL: No joint effusion. NEUROLOGIC: No change in exam. MEDICATIONS: The patient's medications have been reviewed. LABORATORY DATA: Has been reviewed. ASSESSMENT AND PLAN: 1. Hyponatremia, etiology secondary to cirrhosis. The patient's sodium levels are slowly improving. Continue free water restriction. Continue diuretic therapy. 2. Volume overload secondary to cirrhosis. Continue low-dose diuretic therapy. Continue low salt d iet and monitor. 3. Hypertension. Etiology is likely due to hemodynamics, cirrhosis. Monitor closely on current diu retic regimen. The patient remains on Midodrine. 4. Decompensated cirrhosis. Continue current medical management. Continue Lasix, Aldactone. 5. Grave's disease. Continue current treatment plan per endocrinology. 6. 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 Continue to monitor. 7. Systemic inflammatory response syndrome. Etiology is unclear. Continue to monitor. Follow up w [facility] primary team. 8. Lactic acidosis likely due to cirrhosis, hemodynamics. Continue to monitor. 9. History of arrhythmia. 10. Hypomagnesemia. Will replete with magnesium sulfate. 11. Pleural effusion. The patient is status post thoracentesis. Cultures have been reviewed. Dictated By: DIANNA SAWYER DO NR/NTS Conf#: [id number] DID#: [id number] CC: PURVI QUIGLEY MD;*EndCC*
[2019-03-02] MEDS: INSULIN GLARGINE [LANTus] (100 UNITS/ML) SYG SC SCH (08:55)
--- NOTE | 2019-03-02 10:03 | CONS ---
[facility] HCIS Consult Follow-up Patient Name: Alejandro Whitaker Unit Number: [id number] Date of : 1960 Patient Status: Admitted Inpatient Attending Doctor: Rashel Browne Edit: BRENDEN RODRIGUEZ M.D. on 03/03/19 @ 15:26 Michael: I discussed the management with ESTHER Hughes and agree with above Assessment/Plan Assessment/Plan Hospital Course (Demo Recall) assessment/impression # recurrent fever, SIRS vs. epididymitis vs. other infectious etiologies - persistent bilateral epididymitis, although ultrasound on 02/27/2019 showed improvement. Pt took vac and cefe (12/11/2018-12/14/18) - persistent gram negative bacteria (MDR Enterobacter) in urine 02/27/2019, urine for gonorrhea and chlamydia was negative on 02/21/2019, urine culture <10K Citrobacter and <10K ashley on 02/13/2019 - procalcitonin unremarkable: <0.1, 0.11, 0.2 - elevated ESR, lactic acid, C reactive protein - extraction of lower teeth prior to the start of fever - past exposure to EBV - The following is negative: HIV screening, HIV viral load, cryptococcus a ntigen, mono, Dengue serology, blood smear for malaria, resp virus panel, MTB complex, HSV 1&2 by PCR, CMV, WBC scan on 12/18/2018, acute hepatitis panel, stool O&P - the following is negative too: rheumatoid factor, MATI, HIT panel, thyroglobulin, thyroid antimicrosomal # heme - s/p bone marrow biopsy 02/19/19, no e/o leukemia/lymphoma per conversation with Dr. Carvajal on 02/28/2019 - gastritis due to H. pylori: diagnosed by H. 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 AFB smear of sputum was negative on 12/11/2018, 12/13/2018, and 12/19/2018; repeat QTB gold negative on 12/16/2018 - mod-large pleural effusions per CT chest 02/22/19. Scheduled for thoracentesis on 02/28/2019 - Hx K. Penumo ESBL in sputum cx on 12/15/2018, likely colonizer # endo and cardiac - Graves disease with exophthalmos - Hyperthyroidism - on Tapazole - T2DM - Hgb A1c 5.6% - SVT on 02/17/2019, s/p adenosine - sinus tachycardia - on metoprolol - hypotension - on midodrine - fluid overload - on Lasix and spironolactone (EF 70%) - chest pain - severe multivessel coronary artery calcification per CT 02/22/2019 recommendations: - pending results: hepatitis B viral load and hepatitis C viral load, R. typhus antibody, IgD level, Leishmania IgG - ordered the following tests for thoracentesis: cultures of bacteria, fungi and AFB, MTB complex NAAT probe to pleural fluid, cytology, O&P (Cx shows NGTD) - Dr. Rodriguez discussed with Dr. Carvajal and requested that the following tests be done on Pt's bone marrow Bx from 02/19/2019: Giemsa stain to eval toxoplasma, leishmania, immunohistochemical stain for CMV, EBV, HSV and HHV8, AFB stain (AFB culture cannot be done because there is no more spare sample) - We recommend Cardiology evaluation for CP, consideration of MADDIE, and management of cardiac meds - We recommend MADDIE to r/o valvular vegetation as Pt's daughter informed us that 2-3 days after Pt's lower teeth were removed by a dentist, Pt started having fever. - continue cefepime (03/01/2019-) - f/u Rheumatology w/u; Appreciate Dr. Berrios's input. Management d/w patient, pt's , RN Kimberly, and with Dr. Rodriguez Consultation Date/Type/Reason Admit Date/Time Feb 06, 2019 at 14:46 Initial Consult Date 02/14/19 Type of Consult Infectious Disease Requesting Provider: KIRK AREVALO MD Date/Time of Note DATE: 03/02/19 TIME: 10:03 24 HR Interval Summary Free Text/Dictation Pt c/p "a little" left sided chest pain, non-reproducible, unchanged from yesterday. Denies SOB. Has mild nausea. No vomiting, diarrhea, dysuria. Reports mild dizziness. Magnesium was repleted and pt given midodrine for low BP per d/w nursing. Exam/Review of Systems Exam Vitals Vital Signs Date Temp Pulse Resp B/P (MAP) Pulse Ox O2 O2 Flow FiO2 Time Delivery Rate 03/02/19 102 08:00 03/02/19 98.0 20 92/61 (71) 92 07:13 03/01/19 Nasal 2.0 21:28 Cannula Intake and Output 03/01/19 03/01/19 03/02/19 1515:00 23:00 07:00 IntakeIntake Total 700 ml OutputOutput Total 400 ml BalanceBalance 300 ml Exam Constitutional: alert, oriented, well developed, frail Psych: nl mood/affect Head: normocephalic, atraumatic Eyes: nl conjunctiva, nl lids, nl sclera ENMT: nl external ears & nose, nl nasal mucosa & septum, mucosa pink and moist Neck: supple Respiratory: normal air movement, diminished breath sounds (at bases), other (On O2 at 2L via NC) Cardiovascular: nl pulses, edema, other (slightly tachycardic, regular rhythm, L sided CP is not reproducible) Gastrointestinal: soft, non-tender Genitourinary - Male: other (no Collins; +decreased scrotal swelling) Musculoskeletal: nl extremities to inspection; No swelling Extremities: normal pulses, edema, pitting pedal edema Neurological: nl mental status Skin: nl turgor; other (L 1st and 2nd toes and R great toe are covered with band aides; photos in chart and nurses notes reviewed) No rash or lesions Results Result Diagram: 02/28/19 0700 03/02/19 0550 Results 24hrs Laboratory Tests Test 03/01/19 12:04 03/01/19 17:49 03/01/19 18:25 03/01/19 18:43 Bedside Glucose 76 66 L 94 95 Test 03/01/19 20:52 03/02/19 04:36 03/02/19 05:50 03/02/19 07:55 Bedside Glucose 84 109 117 Sodium Level 130 L Potassium Level 4.3 Chloride Level 94 L Carbon Dioxide Level 27 Anion Gap 9 Blood Urea Nitrogen 11 Creatinine 0.72 Est Glomerular > 60 Filtrat Rate mL/min Glucose Level 105 Calcium Level 9.1 Phosphorus Level 3.9 Magnesium Level 1.6 L Imaging Imaging 2D echo 02/26/2019: Hyperdynamic left ventricular systolic function. Normal left ventricular cavity size. Normal left ventricular wall thickness. Ejection fraction is visually estimated at 70 %. No significant valvular stenosis or regurgitation seen. No Vegetation seen. Trace-small pericardial effusion. Left pleural effusion seen. Estimated peak PA systolic pressure 30 mmHg. Normal size and normal respiratory collapse consistent with normal right atrial pressure. Medications Medication Current Medications IV Flush (NS 3 ml) 3 ml PER PROTOCOL IV ; Start 02/06/19 at 15:00 Ondansetron HCl (Zofran Inj) 4 mg Q6H PRN IV NAUSEA/VOMITING Last administered on 03/01/19at 22:50; Admin Dose 4 MG; Start 02/06/19 at 15:00 Acetaminophen (Tylenol Tab) 650 mg Q6H PRN PO .PAIN 1-3 OR TEMP Last administered on 02/28/19at 20:48; Admin Dose 650 MG; Start 02/06/19 at 15:00 Atorvastatin Calcium (Lipitor) 10 mg DAILY@21 PO Last administered on 03/01/19at 21:06; Admin Dose 10 MG; Start 02/06/19 at 21:00 Miscellaneous Information 1 ea NOTE XX ; Start 02/06/19 at 16:00 Glucose (Glutose) 15 gm Q15M PRN PO DECREASED GLUCOSE; Start 02/06/19 at 16:00 Glucose (Glutose) 22.5 gm Q15M PRN PO DECREASED GLUCOSE; Start 02/06/19 at 16:00 Dextrose (D50w Syringe) 25 ml Q15M PRN IV DECREASED GLUCOSE Last administered on 02/26/19at 17:21; Admin Dose 25 ML; Start 02/06/19 at 16:00 Dextrose (D50w Syringe) 50 ml Q15M PRN IV DECREASED GLUCOSE; Start 02/06/19 at 16:00 Glucagon (Glucagen) 1 mg Q15M PRN IM DECREASED GLUCOSE; Start 02/06/19 at 16:00 Glucose (Glutose) 15 gm Q15M PRN BUCCAL DECREASED GLUCOSE Last administered on 02/22/19 23:24; Admin Dose 15 GM; Start 02/06/19 at 16:00 Pantoprazole (Protonix Tab) 40 mg BID@0600,1800 PO Last administered on 03/02/19 05:58; Admin Dose 40 MG; Start 02/07/19 at 06:00 Miscellaneous Information (* Miscellaneous Pharmacy Order) Treatment of Hypogl ycemia: 1.BG 51... Per protocol XX ; Start 02/08/19 at 09:00 Dextrose (D50w Syringe) 25 ml Q15M PRN IV .DECREASED GLUCOSE; Start 02/08/19 at 09:00 Dextrose (D50w Syringe) 50 ml Q15M PRN IV .DECREASED GLUCOSE; Start 02/08/19 at 09:00 Methimazole (Tapazole) 30 mg BID PO Last administered on 03/02/19 08:45; Admin Dose 30 MG; Start 02/08/19 at 13:30 Heparin Sodium (Porcine) (Heparin (5000 Units/1ml)) 5,000 unit BID SC Last administered on 02/14/19 22:48; Admin Dose 5,000 UNIT; Start 02/11/19 at 09:00; Status Hold Acetaminophen/ Hydrocodone Bitart ([place] (5/325)) 1 tab Q6H PRN PO MODERATE PAIN LEVEL 4-6 Last administered on 02/23/19 14:08; Admin Dose 1 TAB; Start 02/12/19 at 09:00 Senna (Senokot) 2 tab BID PO Last administered on 03/02/19 08:45; Admin Dose 2 TAB; Start 02/16/19 at 21:00 Metoprolol Tartrate (Lopressor) 50 mg Q8 PO Last administered on 02/27/19 14:20; Admin Dose 50 MG; Start 02/21/19 at 14:00 Morphine Sulfate (morphine) 2 mg Q4H PRN IV SEVERE PAIN LEVEL 7-10 Last ad ministered on 02/22/19at 18:33; Admin Dose 2 MG; Start 02/22/19 at 09:00 Insulin Aspart (Novolog Insulin Pen) NOVOLOG *MILD* ALGORITHM WITH MEALS BEDTIME SC ; Start 02/23/19 at 11:50 Midodrine (Proamatine) 10 mg TID@,13,17 PO Last administered on 03/02/19 08:44; Admin Dose 10 MG; Start 02/23/19 at 13:00 Insulin Aspart (Novolog Insulin Pen) 4 unit WITH MEALS SC Last administered on 03/02/19 07:59; Admin Dose 4 UNIT; Start 02/23/19 at 17:55 Ascorbic Acid (Vitamin C) 500 mg BID PO Last administered on 03/02/19 08:44; Admin Dose 500 MG; Start 02/24/19 at 21:00; Stop 03/26/19 at 20:59 Ferrous Sulfate (Ferrous Sulfate (Ec)) 325 mg BID PO Last administered on 03/02/19 08:44; Admin Dose 325 MG; Start 02/24/19 at 21:00; Stop 03/26/19 at 20:59 Furosemide (Lasix) 20 mg BID DIURETICS PO Last administered on 03/02/19 05:57; Admin Dose 20 MG; Start 02/27/19 at 18:00 Spironolactone (Aldactone) 50 mg BID DIURETICS PO Last administered on 03/02/19 05:57; Admin Dose 50 MG; Start 02/27/19 at 18:00 Docusate Sodium (Colace) 200 mg BID PO Last administered on 03/02/19 08:44; Admin Dose 200 MG; Start 02/27/19 at 21:00 Bismuth Subsalicylate (Pepto-Bismol) 30 ml QID PO Last administered on 03/02/19 08:45; Admin Dose 30 ML; Start 02/27/19 at 21:00 Cefepime HCl 50 ml @ 100 mls/hr Q12 IVPB Last administered on 03/02/19 08:45; Admin Dose 100 MLS/HR; Start 03/01/19 at 13:00 Insulin Glargine (Lantus) 3 units DAILY@0930 SC Last administered on 03/02/19 08:55; Admin Dose 3 UNITS; Start 03/02/19 at 09:30 Magnesium Sulfate 50 ml @ 25 mls/hr ONCE ONCE IVPB ; Start 03/02/19 at 08:30; Stop 03/02/19 at 10:29 NESTOR HUGHES NP Mar 02, 2019 10:03
--- NOTE | 2019-03-02 13:28 | PN ---
Date/Time of Note Date/Time of Note DATE: 03/02/19 TIME: 13:19 Assessment/Plan VTE Prophylaxis Risk score (from Ns)>0 risk: 4 SCD applied (from Ns): Yes Pharmacological prophylaxis: NA/contraindicated Pharm contraindication: liver dx Lines/Catheters IV Catheter Type (from [facility]): Peripheral IV Urinary Cath still in place: No Assessment/Plan Hospital Course Anasarca secondary to cirrhosis -Ultrasound of the liver does confirm cirrhosis -Hepatitis panel and MATI are negative, patient does have an extensive history of alcohol abuse in the past but did quit few years ago, no reports of opiate abuse -Autoimmune hepatitis and PBC unlikely but follow-up on anti-smooth muscle and antimitochondrial antibodies -Patient with mild ascites, pleural effusions and testicular swelling which have improved significantly with Aldactone and Lasix -Continue Lasix and Aldactone -No further interventions per urology -Ultrasound-guided thoracentesis has been done for both diagnostic and therapeutic purposes FUO/SIRS: -No fevers for 2 days now -Fevers in general have not resolved with abx. Extensive imaging negative for malignancy or infection, WBC scan negative previously and no evidence of leukemia or lymphoma -Translocation has been noted but have spoken to pathologist and there is no actual evidence of leukemia currently and translocation may be inconsequential at this time -Repeat echo shows no evidence of vegetation -ID has ordered multiple further stains of bone marrow including TB -ID has recommended cardiology consultation for infectious endocarditis e valuation, of note TTE has not shown vegetation, cardiology consultation has been obtained -Rheumatology consultation appreciated, follow-up on ANCA -Etiology is not secondary to hyperthyroidism per endocrine -Fluid culture from thoracentesis is negative Hypotension secondary to cirrhosis and third spacing -Resolved with Albumin bolus Hyperthyroid: - Off of anti-thyroidal meds per endocrine in anticipation of ablation as outpatient Tachycardia 2/2 hyperthyroid and intravascular depletion - Metoprolol titration Lactic acidosis secondary to cirrhosis Pancytopenia secondary to cirrhosis - Flow cytometry suggested mild atypia, bone marrow biopsy wnl. LDH very elevated of unclear significance at this time, once again have discussed case with pathology and patient has no evidence of leukemia -Hematology following DMII: - Basal/bolus insulin Hyponatremia secondary to liver disease -Have discontinued salt tablets which may have been exacerbating anasarca H Pylori infection: - 3x therapy per ID Coronary artery disease -Multivessel coronary artery calcification was incidentally noted on CT abdomen -Cardiology consultation obtained Debility secondary to comorbidities -Patient with declining functional status and continues to refuse to ambulate -Have strongly encouraged patient to ambulate as to not worsen his overall functional status -PT is following Prophylaxis: SCDs, no pharmacological anticoagulation secondary to cirrhosis Discharge plan: Patient continues to have intermittent fevers but has been afebrile x2 days, anasarca has improved with diuretics, follow-up with ANCA and bone marrow infectious stains, follow-up with cardiology recommendations Result Diagram: 02/28/19 0700 03/02/19 0550 Results 24hrs Laboratory Tests Test 03/01/19 17:49 03/01/19 18:25 03/01/19 18:43 03/01/19 20:52 Bedside Glucose 66 L 94 95 84 Test 03/02/19 04:36 03/02/19 05:50 03/02/19 07:55 03/02/19 12:04 Bedside Glucose 109 117 114 Sodium Level 130 L Potassium Level 4.3 Chloride Level 94 L Carbon Dioxide Level 27 Anion Gap 9 Blood Urea Nitrogen 11 Creatinine 0.72 Est Glomerular > 60 Filtrat Rate mL/min Glucose Level 105 Calcium Level 9.1 Phosphorus Level 3.9 Magnesium Level 1.6 L Subjective 24 Hr Interval Summary Constitutional: no complaints Exam/Review of Systems Exam Vitals Vital Signs Date Temp Pulse Resp B/P (MAP) Pulse Ox O2 O2 Flow FiO2 Time Delivery Rate 03/02/19 109 12:00 03/02/19 98.0 20 102/51 96 11:14 (68) 03/02/19 Nasal 2.0 08:00 Cannula Intake and Output 03/01/19 03/01/19 03/02/19 1414:59 22:59 06:59 IntakeIntake Total 700 ml OutputOutput Total 400 ml BalanceBalance 300 ml Constitutional: alert, oriented Respiratory: clear to auscultation Cardiovascular: regular rate and rhythm Gastrointestinal: soft; No distended Musculoskeletal: nl extremities to inspection Results Results 24hrs Laboratory Tests Test 03/01/19 17:49 03/01/19 18:25 03/01/19 18:43 03/01/19 20:52 Bedside Glucose 66 L 94 95 84 Test 03/02/19 04:36 03/02/19 05:50 03/02/19 07:55 03/02/19 12:04 Bedside Glucose 109 117 114 Sodium Level 130 L Potassium Level 4.3 Chloride Level 94 L Carbon Dioxide Level 27 Anion Gap 9 Blood Urea Nitrogen 11 Creatinine 0.72 Est Glomerular > 60 Filtrat Rate mL/min Glucose Level 105 Calcium Level 9.1 Phosphorus Level 3.9 Magnesium Level 1.6 L Medications Medication Current Medications IV Flush (NS 3 ml) 3 ml PER PROTOCOL IV ; Start 02/06/19 at 15:00 Ondansetron HCl (Zofran Inj) 4 mg Q6H PRN IV NAUSEA/VOMITING Last administered on 03/01/19at 22:50; Admin Dose 4 MG; Start 02/06/19 at 15:00 Acetaminophen (Tylenol Tab) 650 mg Q6H PRN PO .PAIN 1-3 OR TEMP Last administered on 02/28/19at 20:48; Admin Dose 650 MG; Start 02/06/19 at 15:00 Atorvastatin Calcium (Lipitor) 10 mg DAILY@21 PO Last administered on 03/01/19at 21:06; Admin Dose 10 MG; Start 02/06/19 at 21:00 Miscellaneous Information 1 ea NOTE XX ; Start 02/06/19 at 16:00 Glucose (Glutose) 15 gm Q15M PRN PO DECREASED GLUCOSE; Start 02/06/19 at 16:00 Glucose (Glutose) 22.5 gm Q15M PRN PO DECREASED GLUCOSE; Start 02/06/19 at 16:00 Dextrose (D50w Syringe) 25 ml Q15M PRN IV DECREASED GLUCOSE Last administered on 02/26/19at 17:21; Admin Dose 25 ML; Start 02/06/19 at 16:00 Dextrose (D50w Syringe) 50 ml Q15M PRN IV DECREASED GLUCOSE; Start 02/06/19 at 16:00 Glucagon (Glucagen) 1 mg Q15M PRN IM DECREASED GLUCOSE; Start 02/06/19 at 16:00 Glucose (Glutose) 15 gm Q15M PRN BUCCAL DECREASED GLUCOSE Last administered on 02/22/19at 23:24; Admin Dose 15 GM; Start 02/06/19 at 16:00 Pantoprazole (Protonix Tab) 40 mg BID@0600,1800 PO Last administered on 03/02/19at 05:58; Admin Dose 40 MG; Start 02/07/19 at 06:00 Miscellaneous Information (* Miscellaneous Pharmacy Order) Treatment of Hypoglycemia: 1.BG 51... Per protocol XX ; Start 02/08/19 at 09:00 Dextrose (D50w Syringe) 25 ml Q15M PRN IV .DECREASED GLUCOSE; Start 02/08/19 at 09:00 Dextrose (D50w Syringe) 50 ml Q15M PRN IV .DECREASED GLUCOSE; Start 02/08/19 at 09:00 Methimazole (Tapazole) 30 mg BID PO Last administered on 03/02/19 08:45; Admin Dose 30 MG; Start 02/08/19 at 13:30 Heparin Sodium (Porcine) (Heparin (5000 Units/1ml)) 5,000 unit BID SC Last administered on 02/14/19 22:48; Admin Dose 5,000 UNIT; Start 02/11/19 at 09:00; Status Hold Acetaminophen/ Hydrocodone Bitart ([place] (5/325)) 1 tab Q6H PRN PO MODERATE PAIN LEVEL 4-6 Last administered on 02/23/19 14:08; Admin Dose 1 TAB; Start 02/12/19 at 09:00 Senna (Senokot) 2 tab BID PO Last administered on 03/02/19 08:45; Admin Dose 2 TAB; Start 02/16/19 at 21:00 Metoprolol Tartrate (Lopressor) 50 mg Q8 PO Last administered on 02/27/19 14 :20; Admin Dose 50 MG; Start 02/21/19 at 14:00 Morphine Sulfate (morphine) 2 mg Q4H PRN IV SEVERE PAIN LEVEL 7-10 Last administered on 02/22/19 18:33; Admin Dose 2 MG; Start 02/22/19 at 09:00 Insulin Aspart (Novolog Insulin Pen) NOVOLOG *MILD* ALGORITHM WITH MEALS BEDTIME SC ; Start 02/23/19 at 11:50 Midodrine (Proamatine) 10 mg TID@,13,17 PO Last administered on 03/02/19 13:11; Admin Dose 10 MG; Start 02/23/19 at 13:00 Insulin Aspart (Novolog Insulin Pen) 4 unit WITH MEALS SC Last administered on 03/02/19 12:12; Admin Dose 4 UNIT; Start 02/23/19 at 17:55 Ascorbic Acid (Vitamin C) 500 mg BID PO Last administered on 03/02/19 08:44; Admin Dose 500 MG; Start 02/24/19 at 21:00; Stop 03/26/19 at 20:59 Ferrous Sulfate (Ferrous Sulfate (Ec)) 325 mg BID PO Last administered on 03/02/19 08:44; Admin Dose 325 MG; Start 02/24/19 at 21:00; Stop 03/26/19 at 20:59 Furosemide (Lasix) 20 mg BID DIURETICS PO Last administered on 03/02/19 05:57; Admin Dose 20 MG; Start 02/27/19 at 18:00 Spironolactone (Aldactone) 50 mg BID DIURETICS PO Last administered on 03/02/19 05:57; Admin Dose 50 MG; Start 02/27/19 at 18:00 Docusate Sodium (Colace) 200 mg BID PO Last administered on 03/02/19 08:44; Admin Dose 200 MG; Start 02/27/19 at 21:00 Bismuth Subsalicylate (Pepto-Bismol) 30 ml QID PO Last administered on 03/02/19 08:45; Admin Dose 30 ML; Start 02/27/19 at 21:00 Cefepime HCl 50 ml @ 100 mls/hr Q12 IVPB Last administered on 03/02/19 08:45; Admin Dose 100 MLS/HR; Start 03/01/19 at 13:00 Insulin Glargine (Lantus) 3 units DAILY@0930 SC Last administered on 03/02/19 08:55; Admin Dose 3 UNITS; Start 03/02/19 at 09:30 RODRIGUEZ DOTY Mar 02, 2019 13:28
[2019-03-02] MEDS: ATORVASTATIN 10 MG TAB PO SCH (21:08)
[2019-03-02] MEDS: ACETAMINOPHEN 325 MG TAB PO PRN (22:09)
[2019-03-03] VITALS (11 sets, daily range): BP systolic 85–97; BP diastolic 56–65; PULSE 81–142; RESP 17–20
[2019-03-03] MEDS: METOPROLOL 50 MG TAB PO SCH ×2 (06:00→09:14)
[2019-03-03] MEDS: FUROSEMIDE 20 MG TAB PO SCH ×2 (06:00→17:57)
[2019-03-03] MEDS: PANTOPRAZOLE (EC) 40 MG TAB PO SCH ×2 (06:28→17:58)
[2019-03-03] MEDS: ACETAMINOPHEN 325 MG TAB PO PRN (06:28)
[2019-03-03] MEDS: SPIRONOLACTONE 50 MG TAB PO SCH ×2 (06:31→17:56)
[2019-03-03] MEDS: INSULIN ASPART [NOVOLOG] 3 ML PEN SC SCH ×7 (07:55→21:00)
[2019-03-03] MEDS: INSULIN GLARGINE [LANTus] (100 UNITS/ML) SYG SC SCH (08:38)
[2019-03-03] MEDS: ASCORBIC ACID 500 MG TAB PO SCH ×2 (09:14→21:36)
[2019-03-03] MEDS: FERROUS SULFATE (EC) 325 MG TAB PO SCH ×2 (09:14→21:36)
[2019-03-03] MEDS: SENNA TAB PO SCH ×2 (09:15→21:37)
[2019-03-03] MEDS: DOCUSATE SODIUM 100 MG CAP PO SCH ×2 (09:15→21:37)
[2019-03-03] MEDS: METHIMAZOLE 5 MG TAB PO SCH ×2 (09:15→21:37)
[2019-03-03] MEDS: CEFEPIME 1GM/50 ML (PMX) 50 ML IVPB SCH ×2 (09:16→21:39)
[2019-03-03] MEDS: BISMUTH SUBSALICYLATE 240 ML BTL PO SCH ×4 (09:28→21:00)
[2019-03-03] MEDS: MIDODRINE 5 MG TAB PO SCH ×3 (09:30→16:51)
--- NOTE | 2019-03-03 09:47 | PN ---
DATE: 03/03/2019 SUBJECTIVE: The patient remains stable. No events overnight. No fevers, chills, nausea, or vomitin g. OBJECTIVE: VITAL SIGNS: Blood pressure is 96/60, respirations 18, pulse 108, temperature 98.3. HEENT: Head is normocephalic. NECK: Supple. HEART: Regular rate. LUNGS: Show diminished breath sounds at the base. ABDOMEN: Soft, nontender to palpation without rebound or guarding. EXTREMITIES: Negative for clubbing, cyanosis. Trace edema. DERMATOLOGIC: No rashes. MUSCULOSKELETAL: No joint effusion. NEUROLOGIC: No change in exam. MEDICATIONS: Reviewed. LABORATORY DATA: Reviewed. ASSESSMENT AND PLAN: 1. Hypernatremia secondary to cirrhosis. Sodium levels are slowly improving. Continue free water r estriction. Continue diuretic therapy. 2. Volume overload secondary to cirrhosis. Continue Lasix, Aldactone. Monitor blood pressures clos pushpa. Continue low salt diet. 3. Hypotension, etiology is due to hemodynamics. Continue to monitor closely. The patient remains on midodrine. 4. Decompensated cirrhosis. The patient is medically improving. Continue current diuretic regimen. 5. Graves' disease. Continue current treatment plan. Follow up with endocrinology. 6. Thrombocytopenia secondary to cirrhosis, improving. Continue to monitor. 7. Systemic inflammatory response syndrome. Continue to monitor. 8. Lactic acidosis, likely from cirrhosis. Continue to monitor. 9. History of arrhythmia. 10. Hypomagnesemia. Continue to monitor and replete. 11. Pleural effusions. The patient is status post thoracentesis. Dictated By: DIANNA SAWYER DO NR/NTS Conf#: [id number] DID#: [id number] CC: EVIE TRAORE MD; PURVI QUIGLEY MD; RODRIGUEZ DOTY MD;*EndCC*
--- NOTE | 2019-03-03 11:23 | CONS ---
Assessment/Plan Assessment/Plan Hospital Course (Demo Recall) Recurrent fevers: Blood cultures negative and TTE without obvious vegetation. Low suspicion but will check MADDIE based on ID recs. Prior to MADDIE he should have an EGD with his diagnosis of cirrhosis and no prior EGD to eval for varices. CAD: coronary calcification on CT. No symptoms. Not a candidate for ASA or statin for primary prevention with cirrhosis, anemia, thrombocytopenia Hypotension: on midodrine Liver cirrhosis Hyperthyroidism -discussed with Dr. Gonzalez to obtain consult for EGD. If feasible, we can coordinate the EGD and MADDIE together -d/c metoprolol as he is not receiving it anyway. If recurrent tachycardia, check EKG and will determine treatment choice -midodrine 10mg TID -lasix 20mg BID -aldactone 50mg BID Consultation Date/Type/Reason Admit Date/Time Feb 06, 2019 at 14:46 Date of Consultation: Mar 03, 2019 Type of Consult Cardiology Reason for Consultation MADDIE Requesting Provider: RODRIGUEZ DOTY Date/Time of Note DATE: 03/03/19 TIME: 11:10 Hx of Present Illness 59 yo M with a complex medical history and prolonged admission who was initially admitted 02/06/19 for weakness. He was treated for hyperthyroidism, had a BM biopsy, discovered to have liver cirrhosis (alcohol vs other), and also diuresed for cirrhosis related volume overload. He had a right thoracentesis 02/28 and still has a left effusion. He has been having intermittent fevers with negative blood cultures and TTE without vegetation. He has had two positive urine cultu res (enterobacter and citrobacter/ashley). He has been having hypotension and is on midodrine. Earlier in the hospitalization he was having tachycardia thought to be due to the hyperthyroidism and was started on metoprolol but has not been getting doses due to the hypotension. He also was noted to have coronary artery calcification on CT but no chest pain or h/o DC. I spoke with the pt's daughter by phone regarding the request by ID for MADDIE and the daughter is agreeable. per HPI Past Medical History per HPI Home Meds Active Scripts Insulin Glargine* (Lantus*) 100 Unit/Ml Soln, 15 UNIT SC DAILY, #14 VIAL Prov:LONAYOLI Zimmer 02/11/19 Insulin Aspart* (Novolog Insulin Pen*) 100 Unit/Ml Soln, 7 UNIT SC WITH MEALS, #7 VIAL Prov:YOLI ZAMORANO. 02/11/19 Sennosides* (Senna Lax*) 8.6 Mg Tablet, 2 TAB PO BID, #120 TAB Prov:YOLI ZAMORANO . 02/11/19 Clarithromycin* (Clarithromycin*) 500 Mg Tablet, 500 MG PO BID for 5 Days, #10 TAB Prov:YOLI ZAMORANO . 02/11/19 Amoxicillin* (Amoxicillin*) 500 Mg Cap, 1000 MG PO BID for 5 Days, #10 CAP Prov:YOLI ZAMORANO . 02/11/19 Methimazole* (Methimazole*) 10 Mg Tablet, 30 MG PO BID, #180 TAB 1 Refill Prov:YOLI ZAMORANO . 02/11/19 Reported Medications Pantoprazole* (Pantoprazole*) 40 Mg Tablet.dr, 40 MG PO AC BREAKFAST, TAB 02/06/19 Simvastatin* (Zocor*) 20 Mg Tablet, 20 MG PO QHS, #30 TAB 01/16/19 Lisinopril* (Lisinopril*) 2.5 Mg Tablet, 2.5 MG PO DAILY, #30 TAB 01/16/19 Propranolol Hcl* (Propranolol Hcl*) 40 Mg Tablet, 80 MG PO TID, TAB 01/16/19 Medications Current Medications IV Flush (NS 3 ml) 3 ml PER PROTOCOL IV ; Start 02/06/19 at 15:00 Ondansetron HCl (Zofran Inj) 4 mg Q6H PRN IV NAUSEA/VOMITING Last administered on 03/01/19at 22:50; Admin Dose 4 MG; Start 02/06/19 at 15:00 Acetaminophen (Tylenol Tab) 650 mg Q6H PRN PO .PAIN 1-3 OR TEMP Last administered on 03/03/19at 06:28; Admin Dose 650 MG; Start 02/06/19 at 15:00 Atorvastatin Calcium (Lipitor) 10 mg DAILY@21 PO Last administered on 03/02/19at 21:08; Admin Dose 10 MG; Start 02/06/19 at 21:00 Miscellaneous Information 1 ea NOTE XX ; Start 02/06/19 at 16:00 Glucose (Glutose) 15 gm Q15M PRN PO DECREASED GLUCOSE; Start 02/06/19 at 16:00 Glucose (Glutose) 22.5 gm Q15M PRN PO DECREASED GLUCOSE; Start 02/06/19 at 16:00 Dextrose (D50w Syringe) 25 ml Q15M PRN IV DECREASED GLUCOSE Last administered on 02/26/19 17:21; Admin Dose 25 ML; Start 02/06/19 at 16:00 Dextrose (D50w Syringe) 50 ml Q15M PRN IV DECREASED GLUCOSE; Start 02/06/19 at 16:00 Glucagon (Glucagen) 1 mg Q15M PRN IM DECREASED GLUCOSE; Start 02/06/19 at 16:00 Glucose (Glutose) 15 gm Q15M PRN BUCCAL DECREASED GLUCOSE Last administered on 02/22/19 23:24; Admin Dose 15 GM; Start 02/06/19 at 16:00 Pantoprazole (Protonix Tab) 40 mg BID@0600,1800 PO Last administered on 03/03/19 06:28; Admin Dose 40 MG; Start 02/07/19 at 06:00 Miscellaneous Information (* Miscellaneous Pharmacy Order) Treatment of Hypoglycemia: 1.BG 51... Per protocol XX ; Start 02/08/19 at 09:00 Dextrose (D50w Syringe) 25 ml Q15M PRN IV .DECREASED GLUCOSE; Start 02/08/19 at 09:00 Dextrose (D50w Syringe) 50 ml Q15M PRN IV .DECREASED GLUCOSE; Start 02/08/19 at 09:00 Methimazole (Tapazole) 30 mg BID PO Last administered on 03/03/19 09:15; Admin Dose 30 MG; Start 02/08/19 at 13:30 Heparin Sodium (Porcine) (Heparin (5000 Units/1ml)) 5,000 unit BID SC Last administered on 02/14/19at 22:48; Admin Dose 5,000 UNIT; Start 02/11/19 at 09:00; Status Hold Acetaminophen/ Hydrocodone Bitart ([place] (5/325)) 1 tab Q6H PRN PO MODERATE PAIN LEVEL 4-6 Last administered on 02/23/19 14:08; Admin Dose 1 TAB; Start 02/12/19 at 09:00 Senna (Senokot) 2 tab BID PO Last administered on 03/03/19 09:15; Admin Dose 2 TAB; Start 02/16/19 at 21:00 Metoprolol Tartrate (Lopressor) 50 mg Q8 PO Last administered on 03/02/19 15:02; Admin Dose 50 MG; Start 02/21/19 at 14:00 Morphine Sulfate (morphine) 2 mg Q4H PRN IV SEVERE PAIN LEVEL 7-10 Last administered on 02/22/19 18:33; Admin Dose 2 MG; Start 02/22/19 at 09:00 Insulin Aspart (Novolog Insulin Pen) NOVOLOG *MILD* ALGORITHM WITH MEALS BEDTIME SC ; Start 02/23/19 at 11:50 Midodrine (Proamatine) 10 mg TID@09,13,17 PO Last administered on 03/03/19 09:30; Admin Dose 10 MG; Start 02/23/19 at 13:00 Insulin Aspart (Novolog Insulin Pen) 4 unit WITH MEALS SC Last administered on 03/03/19 08:38; Admin Dose 4 UNIT; Start 02/23/19 at 17:55 Ascorbic Acid (Vitamin C) 500 mg BID PO Last administered on 03/03/19 09:14; Admin Dose 500 MG; Start 02/24/19 at 21:00; Stop 03/26/19 at 20:59 Ferrous Sulfate (Ferrous Sulfate (Ec)) 325 mg BID PO Last administered on 03/03/19 09:14; Admin Dose 325 MG; Start 02/24/19 at 21:00; Stop 03/26/19 at 20:59 Furosemide (Lasix) 20 mg BID DIURETICS PO Last administered on 03/02/19 17:3 9; Admin Dose 20 MG; Start 02/27/19 at 18:00 Spironolactone (Aldactone) 50 mg BID DIURETICS PO Last administered on 03/03/19 06:31; Admin Dose 50 MG; Start 02/27/19 at 18:00 Docusate Sodium (Colace) 200 mg BID PO Last administered on 03/03/19 09:15; Admin Dose 200 MG; Start 02/27/19 at 21:00 Bismuth Subsalicylate (Pepto-Bismol) 30 ml QID PO Last administered on 03/03/19 09:28; Admin Dose 30 ML; Start 02/27/19 at 21:00 Cefepime HCl 50 ml @ 100 mls/hr Q12 IVPB Last administered on 03/03/19at 09:16; Admin Dose 100 MLS/HR; Start 03/01/19 at 13:00 Insulin Glargine (Lantus) 3 units DAILY@0930 SC Last administered on 03/03/19at 08:38; Admin Dose 3 UNITS; Start 03/02/19 at 09:30 Allergies: Coded Allergies: No Known Allergy (Unverified , 02/28/19) Past Surgical History Past Surgical Hx: no surgical history Social History Alcohol Use: sober (x 10 years) Smoking Status: Never smoker Drug Use: none Exam/Review of Systems Vital Signs Vitals Vital Signs Date Temp Pulse Resp B/P (MAP) Pulse Ox O2 O2 Flow FiO2 Time Delivery Rate 03/03/19 102 08:12 03/03/19 98.3 18 96/60 (72) 95 07:37 03/02/19 Nasal 2.0 20:00 Cannula Intake and Output 03/02/19 03/02/19 03/03/19 1515:00 23:00 07:00 IntakeIntake Total 1000 ml 480 ml OutputOutput Total 550 ml 700 ml BalanceBalance 450 ml -220 ml Exam Constitutional: alert, oriented Psych: no complaints, nl mood/affect Head: normocephalic, atraumatic Neck: supple; No jvd Respiratory: diminished breath sounds (left); No clear to auscultation Cardiovascular: regular rate and rhythm, edema (1+); No systolic murmur Gastrointestinal: soft, non-tender, distended Musculoskeletal: No nl extremities to inspection Neurological: nl mental status, nl speech Labs Result Diagram: 02/28/19 0700 03/03/19 0750 Results 24hrs Laboratory Tests Test 03/02/19 12:04 03/02/19 17:36 03/02/19 20:58 03/02/19 22:03 Bedside Glucose 114 78 72 90 Test 03/03/19 07:50 03/03/19 08:16 Sodium Level 128 L Potassium Level 4.3 Chloride Level 95 L Carbon Dioxide Level 22 Anion Gap 11 Blood Urea Nitrogen 9 Creatinine 0.68 Est Glomerular > 60 Filtrat Rate mL/min Glucose Level 87 Calcium Level 9.2 Phosphorus Level 4.0 Magnesium Level 1.7 Bedside Glucose 139 Medications Medications Current Medications IV Flush (NS 3 ml) 3 ml PER PROTOCOL IV ; Start 02/06/19 at 15:00 Ondansetron HCl (Zofran Inj) 4 mg Q6H PRN IV NAUSEA/VOMITING Last administered on 03/01/19at 22:50; Admin Dose 4 MG; Start 02/06/19 at 15:00 Acetaminophen (Tylenol Tab) 650 mg Q6H PRN PO .PAIN 1-3 OR TEMP Last administer ed on 03/03/19at 06:28; Admin Dose 650 MG; Start 02/06/19 at 15:00 Atorvastatin Calcium (Lipitor) 10 mg DAILY@21 PO Last administered on 03/02/19at 21:08; Admin Dose 10 MG; Start 02/06/19 at 21:00 Miscellaneous Information 1 ea NOTE XX ; Start 02/06/19 at 16:00 Glucose (Glutose) 15 gm Q15M PRN PO DECREASED GLUCOSE; Start 02/06/19 at 16:00 Glucose (Glutose) 22.5 gm Q15M PRN PO DECREASED GLUCOSE; Start 02/06/19 at 16:00 Dextrose (D50w Syringe) 25 ml Q15M PRN IV DECREASED GLUCOSE Last administered on 02/26/19at 17:21; Admin Dose 25 ML; Start 02/06/19 at 16:00 Dextrose (D50w Syringe) 50 ml Q15M PRN IV DECREASED GLUCOSE; Start 02/06/19 at 16:00 Glucagon (Glucagen) 1 mg Q15M PRN IM DECREASED GLUCOSE; Start 02/06/19 at 16:00 Glucose (Glutose) 15 gm Q15M PRN BUCCAL DECREASED GLUCOSE Last administered on 02/22/19at 23:24; Admin Dose 15 GM; Start 02/06/19 at 16:00 Pantoprazole (Protonix Tab) 40 mg BID@0600,1800 PO Last administered on 03/03/19at 06:28; Admin Dose 40 MG; Start 02/07/19 at 06:00 Miscellaneous Information (* Miscellaneous Pharmacy Order) Treatment of Hypoglycemia: 1.BG 51... Per protocol XX ; Start 02/08/19 at 09:00 Dextrose (D50w Syringe) 25 ml Q15M PRN IV .DECREASED GLUCOSE; Start 02/08/19 at 09:00 Dextrose (D50w Syringe) 50 ml Q15M PRN IV .DECREASED GLUCOSE; Start 02/08/19 at 09:00 Methimazole (Tapazole) 30 mg BID PO Last administered on 03/03/19 09:15; Admin Dose 30 MG; Start 02/08/19 at 13:30 Heparin Sodium (Porcine) (Heparin (5000 Units/1ml)) 5,000 unit BID SC Last administered on 02/14/19 22:48; Admin Dose 5,000 UNIT; Start 02/11/19 at 09:00; Status Hold Acetaminophen/ Hydrocodone Bitart ([place] (5/325)) 1 tab Q6H PRN PO MODERATE PAIN LEVEL 4-6 Last administered on 02/23/19 14:08; Admin Dose 1 TAB; Start 02/12/19 at 09:00 Senna (Senokot) 2 tab BID PO Last administered on 03/03/19 09:15; Admin Dose 2 TAB; Start 02/16/19 at 21:00 Metoprolol Tartrate (Lopressor) 50 mg Q8 PO Last administered on 03/02/19 15:02; Admin Dose 50 MG; Start 02/21/19 at 14:00 Morphine Sulfate (morphine) 2 mg Q4H PRN IV SEVERE PAIN LEVEL 7-10 Last administered on 02/22/19 18:33; Admin Dose 2 MG; Start 02/22/19 at 09:00 Insulin Aspart (Novolog Insulin Pen) NOVOLOG *MILD* ALGORITHM WITH MEALS BEDTIME SC ; Start 02/23/19 at 11:50 Midodrine (Proamatine) 10 mg TID@,,17 PO Last administered on 03/03/19 09:30; Admin Dose 10 MG; Start 02/23/19 at 13:00 Insulin Aspart (Novolog Insulin Pen) 4 unit WITH MEALS SC Last administered on 03/03/19 08:38; Admin Dose 4 UNIT; Start 02/23/19 at 17:55 Ascorbic Acid (Vitamin C) 500 mg BID PO Last administered on 03/03/19 09:14; A dmin Dose 500 MG; Start 02/24/19 at 21:00; Stop 03/26/19 at 20:59 Ferrous Sulfate (Ferrous Sulfate (Ec)) 325 mg BID PO Last administered on 03/03/19 09:14; Admin Dose 325 MG; Start 02/24/19 at 21:00; Stop 03/26/19 at 20:59 Furosemide (Lasix) 20 mg BID DIURETICS PO Last administered on 03/02/19 17:39; Admin Dose 20 MG; Start 02/27/19 at 18:00 Spironolactone (Aldactone) 50 mg BID DIURETICS PO Last administered on 03/03/19 06:31; Admin Dose 50 MG; Start 02/27/19 at 18:00 Docusate Sodium (Colace) 200 mg BID PO Last administered on 03/03/19 09:15; Admin Dose 200 MG; Start 02/27/19 at 21:00 Bismuth Subsalicylate (Pepto-Bismol) 30 ml QID PO Last administered on 03/03/19 09:28; Admin Dose 30 ML; Start 02/27/19 at 21:00 Cefepime HCl 50 ml @ 100 mls/hr Q12 IVPB Last administered on 03/03/19 09:16; Admin Dose 100 MLS/HR; Start 03/01/19 at 13:00 Insulin Glargine (Lantus) 3 units DAILY@0930 SC Last administered on 03/03/19 08:38; Admin Dose 3 UNITS; Start 03/02/19 at 09:30 EVIE TRAORE Mar 03, 2019 11:22
--- NOTE | 2019-03-03 14:02 | CONS ---
Assessment/Plan Assessment/Plan Problems: (1) Graves' disease with exophthalmos Status: Chronic Comment: Repeat thyroid function tests from this morning are still not in the results section. Neither is the thyroid-stimulating immunoglobulin antibody. Continue current treatment protocol Consultation Date/Type/Reason Admit Date/Time Feb 06, 2019 at 14:46 Initial Consult Date 02/06/19 Type of Consult Endocrine Reason for Consultation Thyrotoxicosis; cirrhosis; recurrent fevers with shaking chills and drenching sweats and pancytopenia Requesting Provider: RODRIGUEZ DOTY Date/Time of Note DATE: 03/03/19 TIME: 14:00 24 HR Interval Summary Free Text/Dictation No change in patient complaints Exam/Review of Systems Exam Vitals Vital Signs Date Temp Pulse Resp B/P (MAP) Pulse Ox O2 O2 Flow FiO2 Time Delivery Rate 03/03/19 100 12:07 03/03/19 98.2 18 85/56 (66) 100 11:55 03/03/19 Nasal 2.0 08:00 Cannula Intake and Output 03/02/19 03/02/19 03/03/19 1515:00 23:00 07:00 IntakeIntake Total 1000 ml 480 ml OutputOutput Total 550 ml 700 ml BalanceBalance 450 ml -220 ml Exam No change in exam Neck: thyromegaly (No nodules) Respiratory: clear to auscultation Cardiovascular: regular rate and rhythm, nl pulses Gastrointestinal: soft, nl liver, spleen, non-tender Results Result Diagram: 02/28/19 0700 03/03/19 0750 Results 24hrs Laboratory Tests Test 03/02/19 17:36 03/02/19 20:58 03/02/19 22:03 03/03/19 07:50 Bedside Glucose 78 72 90 Sodium Level 128 L Potassium Level 4.3 Chloride Level 95 L Carbon Dioxide 22 Level Anion Gap 11 Blood Urea 9 Nitrogen Creatinine 0.68 Est Glomerular > 60 Filtrat Rate mL/min Glucose Level 87 Calcium Level 9.2 Phosphorus Level 4.0 Magnesium Level 1.7 Test 03/03/19 08:16 03/03/19 11:49 03/03/19 11:58 Bedside Glucose 139 127 Lab Scanned Report REFERENCE LAB Medications Medication Current Medications IV Flush (NS 3 ml) 3 ml PER PROTOCOL IV ; Start 02/06/19 at 15:00 Ondansetron HCl (Zofran Inj) 4 mg Q6H PRN IV NAUSEA/VOMITING Last administered on 03/01/19at 22:50; Admin Dose 4 MG; Start 02/06/19 at 15:00 Acetaminophen (Tylenol Tab) 650 mg Q6H PRN PO .PAIN 1-3 OR TEMP Last administered on 03/03/19at 06:28; Admin Dose 650 MG; Start 02/06/19 at 15:00 Atorvastatin Calcium (Lipitor) 10 mg DAILY@21 PO Last administered on 03/02/19at 21:08; Admin Dose 10 MG; Start 02/06/19 at 21:00 Miscellaneous Information 1 ea NOTE XX ; Start 02/06/19 at 16:00 Glucose (Glutose) 15 gm Q15M PRN PO DECREASED GLUCOSE; Start 02/06/19 at 16:00 Glucose (Glutose) 22.5 gm Q15M PRN PO DECREASED GLUCOSE; Start 02/06/19 at 16:00 Dextrose (D50w Syringe) 25 ml Q15M PRN IV DECREASED GLUCOSE Last administered on 02/26/19at 17:21; Admin Dose 25 ML; Start 02/06/19 at 16:00 Dextrose (D50w Syringe) 50 ml Q15M PRN IV DECREASED GLUCOSE; Start 02/06/19 at 16:00 Glucagon (Glucagen) 1 mg Q15M PRN IM DECREASED GLUCOSE; Start 02/06/19 at 16:00 Glucose (Glutose) 15 gm Q15M PRN BUCCAL DECREASED GLUCOSE Last administered on 02/22/19at 23:24; Admin Dose 15 GM; Start 02/06/19 at 16:00 Pantoprazole (Protonix Tab) 40 mg BID@0600,1800 PO Last administered on 03/03/19at 06:28; Admin Dose 40 MG; Start 02/07/19 at 06:00 Miscellaneous Information (* Miscellaneous Pharmacy Order) Treatment of Hypoglycemia: 1.BG 51... Per protocol XX ; Start 02/08/19 at 09:00 Dextrose (D50w Syringe) 25 ml Q15M PRN IV .DECREASED GLUCOSE; Start 02/08/19 at 09:00 Dextrose (D50w Syringe) 50 ml Q15M PRN IV .DECREASED GLUCOSE; Start 02/08/19 at 09:00 Methimazole (Tapazole) 30 mg BID PO Last administered on 03/03/19 09:15; Admin Dose 30 MG; Start 02/08/19 at 13:30 Heparin Sodium (Porcine) (Heparin (5000 Units/1ml)) 5,000 unit BID SC Last administered on 02/14/19 22:48; Admin Dose 5,000 UNIT; Start 02/11/19 at 09:00; Status Hold Acetaminophen/ Hydrocodone Bitart ([place] (5/325)) 1 tab Q6H PRN PO MODERATE PAIN LEVEL 4-6 Last administered on 02/23/19 14:08; Admin Dose 1 TAB; Start 02/12/19 at 09:00 Senna (Senokot) 2 tab BID PO Last administered on 03/03/19 09:15; Admin Dose 2 TAB; Start 02/16/19 at 21:00 Morphine Sulfate (morphine) 2 mg Q4H PRN IV SEVERE PAIN LEVEL 7-10 Last administered on 02/22/19 18:33; Admin Dose 2 MG; Start 02/22/19 at 09:00 Insulin Aspart (Novolog Insulin Pen) NOVOLOG *MILD* ALGORITHM WITH MEALS BEDTIME SC ; Start 02/23/19 at 11:50 Midodrine (Proamatine) 10 mg TID@,,17 PO Last administered on 03/03/19 12:11; Admin Dose 10 MG; Start 02/23/19 at 13:00 Insulin Aspart (Novolog Insulin Pen) 4 unit WITH MEALS SC Last administered on 03/03/19 12:05; Admin Dose 4 UNIT; Start 02/23/19 at 17:55 Ascorbic Acid (Vitamin C) 500 mg BID PO Last administered on 03/03/19 09:14; Admin Dose 500 MG; Start 02/24/19 at 21:00; Stop 03/26/19 at 20:59 Ferrous Sulfate (Ferrous Sulfate (Ec)) 325 mg BID PO Last administered on 03/03/19 09:14; Admin Dose 325 MG; Start 02/24/19 at 21:00; Stop 03/26/19 at 20:59 Furosemide (Lasix) 20 mg BID DIURETICS PO Last administered on 03/02/19 17:39; Admin Dose 20 MG; Start 02/27/19 at 18:00 Spironolactone (Aldactone) 50 mg BID DIURETICS PO Last administered on 03/03/19 06:31; Admin Dose 50 MG; Start 02/27/19 at 18:00 Docusate Sodium (Colace) 200 mg BID PO Last administered on 03/03/19 09:15; Admin Dose 200 MG; Start 02/27/19 at 21:00 Bismuth Subsalicylate (Pepto-Bismol) 30 ml QID PO Last administered on 9at 09:28; Admin Dose 30 ML; Start 02/27/19 at 21:00 Cefepime HCl 50 ml @ 100 mls/hr Q12 IVPB Last administered on 03/03/19 09:16; Admin Dose 100 MLS/HR; Start 03/01/19 at 13:00 Insulin Glargine (Lantus) 3 units DAILY@0930 SC Last administered on 03/03/19 08:38; Admin Dose 3 UNITS; Start 03/02/19 at 09:30 ANA GARCIA MD Mar 03, 2019 14:01
--- NOTE | 2019-03-03 14:07 | CONS ---
Consult Date/Type/Reason Admit Date/Time Feb 06, 2019 at 14:46 Initial Consult Date 03/03/19 Type of Consultation: Rheumatology Reason for Consultation No new complaints. Stilll with intermittent fevers. Requesting Provider: RODRIGUEZ DOTY Date/Time of Note DATE: 03/03/19 TIME: 14:01 Objective Vitals Vital Signs Date Temp Pulse Resp B/P (MAP) Pulse Ox O2 O2 Flow FiO2 Time Delivery Rate 03/03/19 100 12:07 03/03/19 98.2 18 85/56 (66) 100 11:55 03/03/19 Nasal 2.0 08:00 Cannula Intake and Output 03/02/19 03/02/19 03/03/19 1515:00 23:00 07:00 IntakeIntake Total 1000 ml 480 ml OutputOutput Total 550 ml 700 ml BalanceBalance 450 ml -220 ml Exam PHYSICAL EXAMINATION: GENERAL: NAD at present. alert. SKIN: Without acute lesions. HEENT: Without acute oral or ocular lesions. NECK: Without definite masses noted. Supple. CHEST: Clear to auscultation. HEART: Regular rate and rhythm. Proximal and distal pulses are full. ABDOMEN: Soft without masses or tenderness noted. EXTREMITIES: Joints with good range of motion without synovitis. NEUROLOGIC: Grossly intact. Results/Medications Result Diagram: 02/28/19 0700 03/03/19 0750 Results 24 hrs Laboratory Tests Test 03/02/19 17:36 03/02/19 20:58 03/02/19 22:03 03/03/19 07:50 Bedside Glucose 78 72 90 Sodium Level 128 L Potassium Level 4.3 Chloride Level 95 L Carbon Dioxide 22 Level Anion Gap 11 Blood Urea 9 Nitrogen Creatinine 0.68 Est Glomerular > 60 Filtrat Rate mL/min Glucose Level 87 Calcium Level 9.2 Phosphorus Level 4.0 Magnesium Level 1.7 Test 03/03/19 08:16 03/03/19 11:49 03/03/19 11:58 Bedside Glucose 139 127 Lab Scanned Report REFERENCE LAB Home Meds Active Scripts Insulin Glargine* (Lantus*) 100 Unit/Ml Soln, 15 UNIT SC DAILY, #14 VIAL Prov:YOLI ZAMORANO M. 02/11/19 Insulin Aspart* (Novolog Insulin Pen*) 100 Unit/Ml Soln, 7 UNIT SC WITH MEALS, #7 VIAL Prov:YOLI ZAMORANO. 02/11/19 Sennosides* (Senna Lax*) 8.6 Mg Tablet, 2 TAB PO BID, #120 TAB Prov:YOLI ZAMORANO. 02/11/19 Clarithromycin* (Clarithromycin*) 500 Mg Tablet, 500 MG PO BID for 5 Days, #10 TAB Prov:YOLI ZAMORANO . 02/11/19 Amoxicillin* (Amoxicillin*) 500 Mg Cap, 1000 MG PO BID for 5 Days, #10 CAP Prov:YOLI ZAMORANO. 02/11/19 Methimazole* (Methimazole*) 10 Mg Tablet, 30 MG PO BID, #180 TAB 1 Refill Prov:YOLI ZAMORANO. 02/11/19 Reported Medications Pantoprazole* (Pantoprazole*) 40 Mg Tablet.dr, 40 MG PO AC BREAKFAST, TAB 02/06/19 Simvastatin* (Zocor*) 20 Mg Tablet, 20 MG PO QHS, #30 TAB 01/16/19 Lisinopril* (Lisinopril*) 2.5 Mg Tablet, 2.5 MG PO DAILY, #30 TAB 01/16/19 Propranolol Hcl* (Propranolol Hcl*) 40 Mg Tablet, 80 MG PO TID, TAB 01/16/19 Medications Current Medications IV Flush (NS 3 ml) 3 ml PER PROTOCOL IV ; Start 02/06/19 at 15:00 Ondansetron HCl (Zofran Inj) 4 mg Q6H PRN IV NAUSEA/VOMITING Last administered on 03/01/19at 22:50; Admin Dose 4 MG; Start 02/06/19 at 15:00 Acetaminophen (Tylenol Tab) 650 mg Q6H PRN PO .PAIN 1-3 OR TEMP Last administered on 03/03/19at 06:28; Admin Dose 650 MG; Start 02/06/19 at 15:00 Atorvastatin Calcium (Lipitor) 10 mg DAILY@21 PO Last administered on 03/02/19at 21:08; Admin Dose 10 MG; Start 02/06/19 at 21:00 Miscellaneous Information 1 ea NOTE XX ; Start 02/06/19 at 16:00 Glucose (Glutose) 15 gm Q15M PRN PO DECREASED GLUCOSE; Start 02/06/19 at 16:00 Glucose (Glutose) 22.5 gm Q15M PRN PO DECREASED GLUCOSE; Start 02/06/19 at 16:00 Dextrose (D50w Syringe) 25 ml Q15M PRN IV DECREASED GLUCOSE Last administered on 02/26/19 17:21; Admin Dose 25 ML; Start 02/06/19 at 16:00 Dextrose (D50w Syringe) 50 ml Q15M PRN IV DECREASED GLUCOSE; Start 02/06/19 at 16:00 Glucagon (Glucagen) 1 mg Q15M PRN IM DECREASED GLUCOSE; Start 02/06/19 at 16:00 Glucose (Glutose) 15 gm Q15M PRN BUCCAL DECREASED GLUCOSE Last administered on 02/22/19 23:24; Admin Dose 15 GM; Start 02/06/19 at 16:00 Pantoprazole (Protonix Tab) 40 mg BID@0600,1800 PO Last administered on 03/03/19 06:28; Admin Dose 40 MG; Start 02/07/19 at 06:00 Miscellaneous Information (* Miscellaneous Pharmacy Order) Treatment of Hypoglycemia: 1.BG 51... Per protocol XX ; Start 02/08/19 at 09:00 Dextrose (D50w Syringe) 25 ml Q15M PRN IV .DECREASED GLUCOSE; Start 02/08/19 at 09:00 Dextrose (D50w Syringe) 50 ml Q15M PRN IV .DECREASED GLUCOSE; Start 02/08/19 at 09:00 Methimazole (Tapazole) 30 mg BID PO Last administered on 03/03/19 09:15; Admin Dose 30 MG; Start 02/08/19 at 13:30 Heparin Sodium (Porcine) (Heparin (5000 Units/1ml)) 5,000 unit BID SC Last administered on 02/14/19at 22:48; Admin Dose 5,000 UNIT; Start 02/11/19 at 09:00; Status Hold Acetaminophen/ Hydrocodone Bitart ([place] (5/325)) 1 tab Q6H PRN PO MODERATE PAIN LEVEL 4-6 Last administered on 02/23/19at 14:08; Admin Dose 1 TAB; Start 02/12/19 at 09:00 Senna (Senokot) 2 tab BID PO Last administered on 03/03/19 09:15; Admin Dose 2 TAB; Start 02/16/19 at 21:00 Morphine Sulfate (morphine) 2 mg Q4H PRN IV SEVERE PAIN LEVEL 7-10 Last administered on 02/22/19 18:33; Admin Dose 2 MG; Start 02/22/19 at 09:00 Insulin Aspart (Novolog Insulin Pen) NOVOLOG *MILD* ALGORITHM WITH MEALS BEDTIME SC ; Start 02/23/19 at 11:50 Midodrine (Proamatine) 10 mg TID@09,13,17 PO Last administered on 03/03/19 12:11; Admin Dose 10 MG; Start 02/23/19 at 13:00 Insulin Aspart (Novolog Insulin Pen) 4 unit WITH MEALS SC Last administered on 03/03/19 12:05; Admin Dose 4 UNIT; Start 02/23/19 at 17:55 Ascorbic Acid (Vitamin C) 500 mg BID PO Last administered on 03/03/19 09:14; Admin Dose 500 MG; Start 02/24/19 at 21:00; Stop 03/26/19 at 20:59 Ferrous Sulfate (Ferrous Sulfate (Ec)) 325 mg BID PO Last administered on 03/03/19 09:14; Admin Dose 325 MG; Start 02/24/19 at 21:00; Stop 03/26/19 at 20:59 Furosemide (Lasix) 20 mg BID DIURETICS PO Last administered on 03/02/19 17:39; Admin Dose 20 MG; Start 02/27/19 at 18:00 Spironolactone (Aldactone) 50 mg BID DIURETICS PO Last administered on 03/03/19 06:31; Admin Dose 50 MG; Start 02/27/19 at 18:00 Docusate Sodium (Colace) 200 mg BID PO Last administered on 03/03/19 09:15; Admin Dose 200 MG; Start 02/27/19 at 21:00 Bismuth Subsalicylate (Pepto-Bismol) 30 ml QID PO Last administered on 03/03/19 09:28; Admin Dose 30 ML; Start 02/27/19 at 21:00 Cefepime HCl 50 ml @ 100 mls/hr Q12 IVPB Last administered on 03/03/19 09:16; Admin Dose 100 MLS/HR; Start 03/01/19 at 13:00 Insulin Glargine (Lantus) 3 units DAILY@0930 SC Last administered on 4/29/19at 08:38; Admin Dose 3 UNITS; Start 03/02/19 at 09:30 Assessment/Plan Assessment/Plan (Daily) ASSESSMENT: 1. Fever of unknown origin, along with marked fatigue of unclear etiology. Infection workup until now has been basically negative. In view of the dental work that he had prior to the development of symptoms, I agree with the infectious disease consultants' recommendations of evaluations for possible bacterial endocarditis. The patient has a negative MATI and rheumatoid factor, although I cannot rule out possible vasculitic syndrome at this point. 2. Hyperthyroidism. 3. Status post epididymitis. 4. Positive QuantiFERON Gold a few months ago with negative repeat and no evidence of active tuberculosis at present. 5. Cirrhosis. 6. Iron deficiency anemia and possibly related to bone marrow suppression as well, unclear etiology 7. Pancytopenia, in part likely due to cirrhosis. RECOMMENDATIONS: 1. ANCA and angiotensin converting enzyme results pending. 2. MADDIE for evaluating for possibility of bacterial endocarditis pending. 3. If cardiac evaluation is negative, we could consider trial of corticosteroids that would start with low doses. LISSETT WEST MD Mar 03, 2019 14:07
--- NOTE | 2019-03-03 14:32 | CONS ---
Assessment/Plan Assessment/Plan Hospital Course (Demo Recall) Summary Assessment and Plan: Assessment: SIRS/Fevers, unclear etiology- ID recommend MADDIE to r/o valvular vegetation, cardiology will need EGD prior to MADDIE with newly dx cirrhosis Liver cirrhosis --Ultrasound of the liver does confirm cirrhosis -Hepatitis panel and MATI are negative, patient does have a hx of excessive alcohol use, quit few years ago -AMA, MATI- pending- likely will be negative Anasarca secondary to cirrhosis Microcytic anemia Hyperthyroid: - followed by endocrine Tachycardia -2/2 hyperthyroid DM, type 2 Hyponatremia secondary to liver disease Coronary artery disease Debility 2/2 comorbidities Plan: Continue Lasix and Aldactone Npo after 0600 03/04/19 EGD tomorrow - will attempt to coordinate with cardiology Endoscopy - risks/benefits/alternatives/indications of procedure and sedation/anesthesia discussed with patient and patient's daughter Yaakov, who st ates understanding and gives informed consent to proceed. Patient seen in collaboration with Dr. Apple CC: HANNY APPLE MD ; Consultation Date/Type/Reason Admit Date/Time Feb 06, 2019 at 14:46 Date of Consultation: Mar 03, 2019 Type of Consult GI Reason for Consultation Request for EGD prior to MADDIE in patient newly dx with cirrhosis Date/Time of Note DATE: 03/03/19 TIME: 14:28 Hx of Present Illness This is a 59-year-old job he speaking male diagnosed cirrhosis with, Graves' disease and for weakness recurrent SIRS, fever and tachycardia being followed by multiple consults including infectious disease, endocrinology, cardiology work- up is in place for recurrent fevers ID suggests MADDIE to rule out valvular vegetation recently had teeth removed by a dentist. Although with new diagnosis of cirrhosis cardiology is requesting for EGD if feasible would like to coordinate EGD and MADDIE together. In place for of cirrhosis negative hepatitis B and C serology was noted additionally MATI is negative MATI and smooth muscle are currently pending a noted history of excessive alcohol use however quit a few years ago. To patient's daughter, Yaakov, who translated for father, I discussed plan for upper endoscopy tomorrow. Understanding was verbalized and agreed to move forward with procedure. Review of Systems: A 12 system, review was conducted and is negative except as noted in the HPI or here. Past Medical History Medical History: diabetes, high cholesterol, hypertension, hyperthyroid Home Meds Active Scripts Insulin Glargine* (Lantus*) 100 Unit/Ml Soln, 15 UNIT SC DAILY, #14 VIAL Prov:YOLI ZAMORANO 02/11/19 Insulin Aspart* (Novolog Insulin Pen*) 100 Unit/Ml Soln, 7 UNIT SC WITH MEALS, #7 [facility]IAL [facility] 02/11/19 Sennosides* (Senna Lax*) 8.6 Mg Tablet, 2 TAB PO BID, #120 TAB Prov:FRANCISCA [facility]AMOR[facility]OFIRSTHE[facility] [place] 02/11/19 Clarithromycin* (Clarithromycin*) 500 Mg Tablet, 500 MG PO BID for 5 Days, #10 TAB [facility] 02/11/19 Amoxicillin* (Amoxicillin*) 500 Mg Cap, 1000 MG PO BID for 5 Days, #10 CAP Prov:FRANCISCA ZAMORANOFORMERLY [facility] 02/11/19 Methimazole* (Methimazole*) 10 Mg Tablet, 30 MG PO BID, #180 TAB 1 Refill Prov:FRANCISCA ZAMORANOFORMERLY [facility] 02/11/19 Reported Medications Pantoprazole* (Pantoprazole*) 40 Mg Tablet.dr, 40 MG PO AC BREAKFAST, TAB 02/06/19 Simvastatin* (Zocor*) 20 Mg Tablet, 20 MG PO QHS, #30 TAB 01/16/19 Lisinopril* (Lisinopril*) 2.5 Mg Tablet, 2.5 MG PO DAILY, #30 TAB 01/16/19 Propranolol Hcl* (Propranolol Hcl*) 40 Mg Tablet, 80 MG PO TID, TAB 01/16/19 Medications Current Medications IV Flush (NS 3 ml) 3 ml PER PROTOCOL IV ; Start 02/06/19 at 15:00 Ondansetron HCl (Zofran Inj) 4 mg Q6H PRN IV NAUSEA/VOMITING Last administered on 03/01/19at 22:50; Admin Dose 4 MG; Start 02/06/19 at 15:00 Acetaminophen (Tylenol Tab) 650 mg Q6H PRN PO .PAIN 1-3 OR TEMP Last administered on 03/03/19at 06:28; Admin Dose 650 MG; Start 02/06/19 at 15:00 Atorvastatin Calcium (Lipitor) 10 mg DAILY@21 PO Last administered on 03/02/19at 21:08; Admin Dose 10 MG; Start 02/06/19 at 21:00 Miscellaneous Information 1 ea NOTE XX ; Start 02/06/19 at 16:00 Glucose (Glutose) 15 gm Q15M PRN PO DECREASED GLUCOSE; Start 02/06/19 at 16:00 Glucose (Glutose) 22.5 gm Q15M PRN PO DECREASED GLUCOSE; Start 02/06/19 at 16:00 Dextrose (D50w Syringe) 25 ml Q15M PRN IV DECREASED GLUCOSE Last administered on 02/26/19at 17:21; Admin Dose 25 ML; Start 02/06/19 at 16:00 Dextrose (D50w Syringe) 50 ml Q15M PRN IV DECREASED GLUCOSE; Start 02/06/19 at 16:00 Glucagon (Glucagen) 1 mg Q15M PRN IM DECREASED GLUCOSE; Start 02/06/19 at 16:00 Glucose (Glutose) 15 gm Q15M PRN BUCCAL DECREASED GLUCOSE Last administered on 02/22/19at 23:24; Admin Dose 15 GM; Start 02/06/19 at 16:00 Pantoprazole (Protonix Tab) 40 mg BID@0600,1800 PO Last administered on 03/03/19at 06:28; Admin Dose 40 MG; Start 02/07/19 at 06:00 Miscellaneous Information (* Miscellaneous Pharmacy Order) Treatment of Hypoglycemia: 1.BG 51... Per protocol XX ; Start 02/08/19 at 09:00 Dextrose (D50w Syringe) 25 ml Q15M PRN IV .DECREASED GLUCOSE; Start 02/08/19 at 09:00 Dextrose (D50w Syringe) 50 ml Q15M PRN IV .DECREASED GLUCOSE; Start 02/08/19 at 09:00 Methimazole (Tapazole) 30 mg BID PO Last administered on 03/03/19at 09:15; Admin Dose 30 MG; Start 02/08/19 at 13:30 Heparin Sodium (Porcine) (Heparin (5000 Units/1ml)) 5,000 unit BID SC Last administered on 02/14/19at 22:48; Admin Dose 5,000 UNIT; Start 02/11/19 at 09:00; Status Hold Acetaminophen/ Hydrocodone Bitart ([place] (5/325)) 1 tab Q6H PRN PO MODERATE PAIN LEVEL 4-6 Last administered on 02/23/19 14:08; Admin Dose 1 TAB; Start 02/12/19 at 09:00 Senna (Senokot) 2 tab BID PO Last administered on 03/03/19 09:15; Admin Dose 2 TAB; Start 02/16/19 at 21:00 Morphine Sulfate (morphine) 2 mg Q4H PRN IV SEVERE PAIN LEVEL 7-10 Last adminis tered on 02/22/19 18:33; Admin Dose 2 MG; Start 02/22/19 at 09:00 Insulin Aspart (Novolog Insulin Pen) NOVOLOG *MILD* ALGORITHM WITH MEALS BEDTIME SC ; Start 02/23/19 at 11:50 Midodrine (Proamatine) 10 mg TID@,13,17 PO Last administered on 03/03/19 12:11; Admin Dose 10 MG; Start 02/23/19 at 13:00 Insulin Aspart (Novolog Insulin Pen) 4 unit WITH MEALS SC Last administered on 03/03/19 12:05; Admin Dose 4 UNIT; Start 02/23/19 at 17:55 Ascorbic Acid (Vitamin C) 500 mg BID PO Last administered on 03/03/19 09:14; Admin Dose 500 MG; Start 02/24/19 at 21:00; Stop 03/26/19 at 20:59 Ferrous Sulfate (Ferrous Sulfate (Ec)) 325 mg BID PO Last administered on 03/03/19 09:14; Admin Dose 325 MG; Start 02/24/19 at 21:00; Stop 03/26/19 at 20:59 Furosemide (Lasix) 20 mg BID DIURETICS PO Last administered on 03/02/19 17:39; Admin Dose 20 MG; Start 02/27/19 at 18:00 Spironolactone (Aldactone) 50 mg BID DIURETICS PO Last administered on 03/03/19 06:31; Admin Dose 50 MG; Start 02/27/19 at 18:00 Docusate Sodium (Colace) 200 mg BID PO Last administered on 03/03/19 09:15; Admin Dose 200 MG; Start 02/27/19 at 21:00 Bismuth Subsalicylate (Pepto-Bismol) 30 ml QID PO Last administered on 14:09; Admin Dose 30 ML; Start 02/27/19 at 21:00 Cefepime HCl 50 ml @ 100 mls/hr Q12 IVPB Last administered on 03/03/19at 09:16; Admin Dose 100 MLS/HR; Start 03/01/19 at 13:00 Insulin Glargine (Lantus) 3 units DAILY@0930 SC Last administered on 03/03/19at 08:38; Admin Dose 3 UNITS; Start 03/02/19 at 09:30 Allergies: Coded Allergies: No Known Allergy (Unverified , 02/28/19) Past Surgical History Past Surgical Hx: no surgical history Social History Alcohol Use: sober (x 10 years) Smoking Status: Never smoker Drug Use: none Exam/Review of Systems Exam Vitals Vital Signs Date Temp Pulse Resp B/P (MAP) Pulse Ox O2 O2 Flow FiO2 Time Delivery Rate 03/03/19 100 12:07 03/03/19 98.2 18 85/56 (66) 100 11:55 03/03/19 Nasal 2.0 08:00 Cannula Intake and Output 03/02/19 03/02/19 03/03/19 1515:00 23:00 07:00 IntakeIntake Total 1000 ml 480 ml OutputOutput Total 550 ml 700 ml BalanceBalance 450 ml -220 ml Constitutional: alert, oriented Psych: no complaints, nl mood/affect Head: normocephalic, atraumatic Eyes: nl conjunctiva ENMT: nl external ears & nose Neck: supple Respiratory: clear to auscultation, normal air movement Cardiovascular: regular rate and rhythm, nl pulses Gastrointestinal: soft, non-tender, distended Extremities: edema Results Result Diagram: 02/28/19 0700 03/03/19 0750 Results 24hrs Laboratory Tests Test 03/02/19 17:36 03/02/19 20:58 03/02/19 22:03 03/03/19 07:50 Bedside Glucose 78 72 90 Sodium Level 128 L Potassium Level 4.3 Chloride Level 95 L Carbon Dioxide 22 Level Anion Gap 11 Blood Urea 9 Nitrogen Creatinine 0.68 Est Glomerular > 60 Filtrat Rate mL/min Glucose Level 87 Calcium Level 9.2 Phosphorus Level 4.0 Magnesium Level 1.7 Test 03/03/19 08:16 03/03/19 11:49 03/03/19 11:58 Bedside Glucose 139 127 Lab Scanned Report REFERENCE LAB Medications Medication Current Medications IV Flush (NS 3 ml) 3 ml PER PROTOCOL IV ; Start 02/06/19 at 15:00 Ondansetron HCl (Zofran Inj) 4 mg Q6H PRN IV NAUSEA/VOMITING Last administered on 03/01/19at 22:50; Admin Dose 4 MG; Start 02/06/19 at 15:00 Acetaminophen (Tylenol Tab) 650 mg Q6H PRN PO .PAIN 1-3 OR TEMP Last administered on 03/03/19at 06:28; Admin Dose 650 MG; Start 02/06/19 at 15:00 Atorvastatin Calcium (Lipitor) 10 mg DAILY@21 PO Last administered on 03/02/19at 21:08; Admin Dose 10 MG; Start 02/06/19 at 21:00 Miscellaneous Information 1 ea NOTE XX ; Start 02/06/19 at 16:00 Glucose (Glutose) 15 gm Q15M PRN PO DECREASED GLUCOSE; Start 02/06/19 at 16:00 Glucose (Glutose) 22.5 gm Q15M PRN PO DECREASED GLUCOSE; Start 02/06/19 at 16:00 Dextrose (D50w Syringe) 25 ml Q15M PRN IV DECREASED GLUCOSE Last administered on 02/26/19at 17:21; Admin Dose 25 ML; Start 02/06/19 at 16:00 Dextrose (D50w Syringe) 50 ml Q15M PRN IV DECREASED GLUCOSE; Start 02/06/19 at 16:00 Glucagon (Glucagen) 1 mg Q15M PRN IM DECREASED GLUCOSE; Start 02/06/19 at 16:00 Glucose (Glutose) 15 gm Q15M PRN BUCCAL DECREASED GLUCOSE Last administered on 02/22/19at 23:24; Admin Dose 15 GM; Start 02/06/19 at 16:00 Pantoprazole (Protonix Tab) 40 mg BID@0600,1800 PO Last administered on 03/03/19at 06:28; Admin Dose 40 MG; Start 02/07/19 at 06:00 Miscellaneous Information (* Miscellaneous Pharmacy Order) Treatment of Hypoglycemia: 1.BG 51... Per protocol XX ; Start 02/08/19 at 09:00 Dextrose (D50w Syringe) 25 ml Q15M PRN IV .DECREASED GLUCOSE; Start 02/08/19 at 09:00 Dextrose (D50w Syringe) 50 ml Q15M PRN IV .DECREASED GLUCOSE; Start 02/08/19 at 09:00 Methimazole (Tapazole) 30 mg BID PO Last administered on 03/03/19 09:15; Admin Dose 30 MG; Start 02/08/19 at 13:30 Heparin Sodium (Porcine) (Heparin (5000 Units/1ml)) 5,000 unit BID SC Last administered on 02/14/19 22:48; Admin Dose 5,000 UNIT; Start 02/11/19 at 09:00; Status Hold Acetaminophen/ Hydrocodone Bitart ([place] (5/325)) 1 tab Q6H PRN PO MODERATE PAIN LEVEL 4-6 Last administered on 02/23/19 14:08; Admin Dose 1 TAB; Start 02/12/19 at 09:00 Senna (Senokot) 2 tab BID PO Last administered on 03/03/19 09:15; Admin Dose 2 TAB; Start 02/16/19 at 21:00 Morphine Sulfate (morphine) 2 mg Q4H PRN IV SEVERE PAIN LEVEL 7-10 Last administered on 02/22/19 18:33; Admin Dose 2 MG; Start 02/22/19 at 09:00 Insulin Aspart (Novolog Insulin Pen) NOVOLOG *MILD* ALGORITHM WITH MEALS BEDTIME SC ; Start 02/23/19 at 11:50 Midodrine (Proamatine) 10 mg TID@,13,17 PO Last administered on 03/03/19 12:11; Admin Dose 10 MG; Start 02/23/19 at 13:00 Insulin Aspart (Novolog Insulin Pen) 4 unit WITH MEALS SC Last administered on 03/03/19 12:05; Admin Dose 4 UNIT; Start 02/23/19 at 17:55 Ascorbic Acid (Vitamin C) 500 mg BID PO Last administered on 03/03/19 09:14; Admin Dose 500 MG; Start 02/24/19 at 21:00; Stop 03/26/19 at 20:59 Ferrous Sulfate (Ferrous Sulfate (Ec)) 325 mg BID PO Last administered on 03/03/19 09:14; Admin Dose 325 MG; Start 02/24/19 at 21:00; Stop 03/26/19 at 20:59 Furosemide (Lasix) 20 mg BID DIURETICS PO Last administered on 03/02/19 17:39; Admin Dose 20 MG; Start 02/27/19 at 18:00 Spironolactone (Aldactone) 50 mg BID DIURETICS PO Last administered on 03/03/19 06:31; Admin Dose 50 MG; Start 02/27/19 at 18:00 Docusate Sodium (Colace) 200 mg BID PO Last administered on 03/03/19 09:15; Admin Dose 200 MG; Start 02/27/19 at 21:00 Bismuth Subsalicylate (Pepto-Bismol) 30 ml QID PO Last administered on 03/03/19 14:09; Admin Dose 30 ML; Start 02/27/19 at 21:00 Cefepime HCl 50 ml @ 100 mls/hr Q12 IVPB Last administered on 03/03/19 09:16; Admin Dose 100 MLS/HR; Start 03/01/19 at 13:00 Insulin Glargine (Lantus) 3 units DAILY@0930 SC Last administered on 03/03/19 08:38; Admin Dose 3 UNITS; Start 03/02/19 at 09:30 ALYSSA ROSS Mar 03, 2019 14:32
--- NOTE | 2019-03-03 15:33 | PN ---
Date/Time of Note Date/Time of Note DATE: 03/03/19 TIME: 15:30 Assessment/Plan VTE Prophylaxis Risk score (from Nsg)>0 risk: 6 SCD applied (from Nsg): Yes Pharmacological prophylaxis: heparin Lines/Catheters IV Catheter Type (from Nrsg): Saline Lock Urinary Cath still in place: No Assessment/Plan Hospital Course EXAM: Appears comfortable Tachy, regular Thyromegaly Mild proprtosis CTAB Soft nt nd Testicular edema resolving 59 yo male with hyperthyroidism, hyponatremia, and pancytopenias with FUO/SIRS Fluid overload: - imaging shows fluid overload. Continue diuretics Cirrhosis: - EGD pending - Serologic workup pending. No major etoh history FUO/SIRS: - Unclear source. Has not resolved with abx. Extensive imaging negative for malignancy or infection. Bone marrow biopsy negative. WBC scan negative previously - MADDIE per ID - Vasculitis workup per rheumatology Hyperthyroid: - Off of anti-thyroidal meds per endocrine in anticipation of ablation as outpatient Tachycardia 2/ hyperthyroid: - Metoprolol titration Cytopenias: - Flow cytometry suggested mild atypia, bone marrow biopsy wnl. LDH very elevated of unclear significance DMII: - Basal/bolus insulin Hyponatremia: - Chronic SIADH - Started on salt tabs, FW restrition H Pylori infection: - 3x therapy per ID Discharge plan: To home Result Diagram: 02/28/19 0700 03/03/19 0750 Results 24hrs Laboratory Tests Test 03/02/19 17:36 03/02/19 20:58 03/02/19 22:03 03/03/19 07:50 Bedside Glucose 78 72 90 Sodium Level 128 L Potassium Level 4.3 Chloride Level 95 L Carbon Dioxide 22 Level Anion Gap 11 Blood Urea 9 Nitrogen Creatinine 0.68 Est Glomerular > 60 Filtrat Rate mL/min Glucose Level 87 Calcium Level 9.2 Phosphorus Level 4.0 Magnesium Level 1.7 Test 03/03/19 08:16 03/03/19 11:49 03/03/19 11:58 Bedside Glucose 139 127 Lab Scanned Report REFERENCE LAB Subjective 24 Hr Interval Summary Free Text/Dictation Thoracentesis performed Feels well Awaiting MADDIE and EGD Exam/Review of Systems Exam Vitals Vital Signs Date Temp Pulse Resp B/P (MAP) Pulse Ox O2 O2 Flow FiO2 Time Delivery Rate 03/03/19 100 12:07 03/03/19 98.2 18 85/56 (66) 100 11:55 03/03/19 Nasal 2.0 08:00 Cannula Intake and Output 03/02/19 03/02/19 03/03/19 1515:00 23:00 07:00 IntakeIntake Total 1000 ml 480 ml OutputOutput Total 550 ml 700 ml BalanceBalance 450 ml -220 ml Results Results 24hrs Laboratory Tests Test 03/02/19 17:36 03/02/19 20:58 03/02/19 22:03 03/03/19 07:50 Bedside Glucose 78 72 90 Sodium Level 128 L Potassium Level 4.3 Chloride Level 95 L Carbon Dioxide 22 Level Anion Gap 11 Blood Urea 9 Nitrogen Creatinine 0.68 Est Glomerular > 60 Filtrat Rate mL/min Glucose Level 87 Calcium Level 9.2 Phosphorus Level 4.0 Magnesium Level 1.7 Test 03/03/19 08:16 03/03/19 11:49 03/03/19 11:58 Bedside Glucose 139 127 Lab Scanned Report REFERENCE LAB Medications Medication Current Medications IV Flush (NS 3 ml) 3 ml PER PROTOCOL IV ; Start 02/06/19 at 15:00 Ondansetron HCl (Zofran Inj) 4 mg Q6H PRN IV NAUSEA/VOMITING Last administered on 03/01/19at 22:50; Admin Dose 4 MG; Start 02/06/19 at 15:00 Acetaminophen (Tylenol Tab) 650 mg Q6H PRN PO .PAIN 1-3 OR TEMP Last administered on 03/03/19at 06:28; Admin Dose 650 MG; Start 02/06/19 at 15:00 Atorvastatin Calcium (Lipitor) 10 mg DAILY@21 PO Last administered on 03/02/19at 21:08; Admin Dose 10 MG; Start 02/06/19 at 21:00 Miscellaneous Information 1 ea NOTE XX ; Start 02/06/19 at 16:00 Glucose (Glutose) 15 gm Q15M PRN PO DECREASED GLUCOSE; Start 02/06/19 at 16:00 Glucose (Glutose) 22.5 gm Q15M PRN PO DECREASED GLUCOSE; Start 02/06/19 at 16:00 Dextrose (D50w Syringe) 25 ml Q15M PRN IV DECREASED GLUCOSE Last administered on 02/26/19at 17:21; Admin Dose 25 ML; Start 02/06/19 at 16:00 Dextrose (D50w Syringe) 50 ml Q15M PRN IV DECREASED GLUCOSE; Start 02/06/19 at 16:00 Glucagon (Glucagen) 1 mg Q15M PRN IM DECREASED GLUCOSE; Start 02/06/19 at 16:00 Glucose (Glutose) 15 gm Q15M PRN BUCCAL DECREASED GLUCOSE Last administered on 02/22/19at 23:24; Admin Dose 15 GM; Start 02/06/19 at 16:00 Pantoprazole (Protonix Tab) 40 mg BID@0600,1800 PO Last administered on 03/03/19at 06:28; Admin Dose 40 MG; Start 02/07/19 at 06:00 Miscellaneous Information (* Miscellaneous Pharmacy Order) Treatment of Hypoglycemia: 1.BG 51... Per protocol XX ; Start 02/08/19 at 09:00 Dextrose (D50w Syringe) 25 ml Q15M PRN IV .DECREASED GLUCOSE; Start 02/08/19 at 09:00 Dextrose (D50w Syringe) 50 ml Q15M PRN IV .DECREASED GLUCOSE; Start 02/08/19 at 09:00 Methimazole (Tapazole) 30 mg BID PO Last administered on 03/03/19 09:15; Admin Dose 30 MG; Start 02/08/19 at 13:30 Heparin Sodium (Porcine) (Heparin (5000 Units/1ml)) 5,000 unit BID SC Last administered on 02/14/19at 22:48; Admin Dose 5,000 UNIT; Start 02/11/19 at 09:00; Status Hold Acetaminophen/ Hydrocodone Bitart ([place] (5/325)) 1 tab Q6H PRN PO MODERATE PAIN LEVEL 4-6 Last administered on 02/23/19at 14:08; Admin Dose 1 TAB; Start 02/12/19 at 09:00 Senna (Senokot) 2 tab BID PO Last administered on 03/03/19 09:15; Admin Dose 2 TAB; Start 02/16/19 at 21:00 Morphine Sulfate (morphine) 2 mg Q4H PRN IV SEVERE PAIN LEVEL 7-10 Last administered on 02/22/19at 18:33; Admin Dose 2 MG; Start 02/22/19 at 09:00 Insulin Aspart (Novolog Insulin Pen) NOVOLOG *MILD* ALGORITHM WITH MEALS BEDTIME SC ; Start 02/23/19 at 11:50 Midodrine (Proamatine) 10 mg TID@09,13,17 PO Last administered on 03/03/19 12 :11; Admin Dose 10 MG; Start 02/23/19 at 13:00 Insulin Aspart (Novolog Insulin Pen) 4 unit WITH MEALS SC Last administered on 03/03/19 12:05; Admin Dose 4 UNIT; Start 02/23/19 at 17:55 Ascorbic Acid (Vitamin C) 500 mg BID PO Last administered on 03/03/19 09:14; Admin Dose 500 MG; Start 02/24/19 at 21:00; Stop 03/26/19 at 20:59 Ferrous Sulfate (Ferrous Sulfate (Ec)) 325 mg BID PO Last administered on 03/03/19 09:14; Admin Dose 325 MG; Start 02/24/19 at 21:00; Stop 03/26/19 at 20:59 Furosemide (Lasix) 20 mg BID DIURETICS PO Last administered on 03/02/19 17:39; Admin Dose 20 MG; Start 02/27/19 at 18:00 Spironolactone (Aldactone) 50 mg BID DIURETICS PO Last administered on 03/03/19 06:31; Admin Dose 50 MG; Start 02/27/19 at 18:00 Docusate Sodium (Colace) 200 mg BID PO Last administered on 03/03/19 09:15; Admin Dose 200 MG; Start 02/27/19 at 21:00 Bismuth Subsalicylate (Pepto-Bismol) 30 ml QID PO Last administered on 03/03/19 14:09; Admin Dose 30 ML; Start 02/27/19 at 21:00 Cefepime HCl 50 ml @ 100 mls/hr Q12 IVPB Last administered on 03/03/19 09:16; Admin Dose 100 MLS/HR; Start 03/01/19 at 13:00 Insulin Glargine (Lantus) 3 units DAILY@0930 SC Last administered on 03/03/19 08:38; Admin Dose 3 UNITS; Start 03/02/19 at 09:30 KIRK AREVALO MD Mar 03, 2019 15:33
--- NOTE | 2019-03-03 15:37 | CONS ---
Assessment/Plan Assessment/Plan Hospital Course (Demo Recall) assessment/impression # recurrent fever, SIRS vs. epididymitis vs. other infectious etiologies - persistent bilateral epididymitis, although ultrasound on 02/27/2019 showed improvement - persistent enterobacter in urine 02/27/2019, urine for gonorrhea and chlamydia was negative on 02/21/2019, urine culture <10K citrobacter and <10K ashley on 02/13/2019 - procalcitonin unremarkable: <0.1, 0.11, 0.2, 0.11, 0.14 - elevated ESR, lactic acid, C reactive protein - extraction of lower teeth prior to the start of fever - past exposure to EBV - The following ID work up was negative: HIV screening, HIV viral load, cryptococcus antigen, mono, Dengue serology, blood smear for malaria, resp virus panel, MTB complex, HSV 1&2 by PCR, CMV, WBC scan on 12/18/2018, acute hepatitis panel, stool O&P, R. typhi IgM/IgG - the following non-ID workup was negative too: rheumatoid factor, MATI, HIT panel, thyroglobulin, thyroid antimicrosomal # heme - s/p bone marrow biopsy 02/19/19, no e/o leukemia/lymphoma per conversation with Dr. Carvajal on 02/28/2019 - gastritis due to H. pylori: diagnosed by H. 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 AFB smear of sputum was negative on 12/11/2018, 12/13/2018, and 12/19/2018; repeat QTB gold negative on 12/16/2018 - mod-large pleural effusions per CT chest 02/22/19 - s/p thoracentesis on 02/28/2019, protein <2, LDH 512, an exudative effusion - Hx K. Penumo ESBL in sputum cx on 12/15/2018, likely colonizer # endo and cardiac - Graves disease with exophthalmos - Hyperthyroidism - on Tapazole - T2DM - Hgb A1c 5.6% - SVT on 02/17/2019, s/p adenosine revised recommendations: - pending results: hepatitis B viral load and hepatitis C viral load, IgD level, pleural effusion (cultures of bacteria, fungi and AFB, MTB complex NAAT probe to pleural fluid), Leishmania IgG - I ordered cytology, O&P on his pleural effusion but they were not performed. No reasons posted - pending: On I discussed with Dr. Carvajal and requested that the following tests be done on Pt's bone marrow Bx from 02/19/2019: Giemsa stain to eval toxoplasma, leishmania, immunohistochemical stain for CMV, EBV, HSV and HHV8, AFB stain (AFB culture cannot be done because there is no more spare sampl e) - GI and cardiology consult appreciated: EGD followed by MADDIE to r/o esophageal varices and endocarditis, respectively - continue cefepime (restart 03/01/2019), plan for 7 days management d/w Pt Consultation Date/Type/Reason Admit Date/Time Feb 06, 2019 at 14:46 Initial Consult Date 02/18/19 Requesting Provider: RODRIGUEZ DTOY Date/Time of Note DATE: 03/03/19 TIME: 15:28 24 HR Interval Summary Subjective hx not possible: other (Pt was very lethargic and answered only a few questions) Detailed Summary Respiratory: No cough Cardiovascular: No chest pain Gastrointestinal: No pain Genitourinary: other ("it is OK") Musculoskeletal: no complaints Exam/Review of Systems Exam Vitals Vital Signs Date Temp Pulse Resp B/P (MAP) Pulse Ox O2 O2 Flow FiO2 Time Delivery Rate 03/03/19 100 12:07 03/03/19 98.2 18 85/56 (66) 100 11:55 03/03/19 Nasal 2.0 08:00 Cannula Intake and Output 03/02/19 03/02/19 03/03/19 1515:00 23:00 07:00 IntakeIntake Total 1000 ml 480 ml OutputOutput Total 550 ml 700 ml BalanceBalance 450 ml -220 ml Constitutional: frail Psych: no complaints, nl mood/affect Head: normocephalic, atraumatic Eyes: nl conjunctiva, nl lids, nl sclera ENMT: nl external ears & nose, nl nasal mucosa & septum, mucosa pink and moist Neck: other (not swollen) Respiratory: clear to auscultation, normal air movement Cardiovascular: regular rate and rhythm, nl pulses Gastrointestinal: soft, non-tender; No distended, No tender Genitourinary - Male: other (deferred) Musculoskeletal: nl extremities to inspection Extremities: normal pulses Neurological: lethargic Skin: nl turgor Results Result Diagram: 02/28/19 0700 03/03/19 0750 Results 24hrs Laboratory Tests Test 03/02/19 17:36 03/02/19 20:58 03/02/19 22:03 03/03/19 07:50 Bedside Glucose 78 72 90 Sodium Level 128 L Potassium Level 4.3 Chloride Level 95 L Carbon Dioxide 22 Level Anion Gap 11 Blood Urea 9 Nitrogen Creatinine 0.68 Est Glomerular > 60 Filtrat Rate mL/min Glucose Level 87 Calcium Level 9.2 Phosphorus Level 4.0 Magnesium Level 1.7 Test 03/03/19 08:16 03/03/19 11:49 03/03/19 11:58 Bedside Glucose 139 127 Lab Scanned Report REFERENCE LAB Medications Medication Current Medications IV Flush (NS 3 ml) 3 ml PER PROTOCOL IV ; Start 02/06/19 at 15:00 Ondansetron HCl (Zofran Inj) 4 mg Q6H PRN IV NAUSEA/VOMITING Last administered on 03/01/19at 22:50; Admin Dose 4 MG; Start 02/06/19 at 15:00 Acetaminophen (Tylenol Tab) 650 mg Q6H PRN PO .PAIN 1-3 OR TEMP Last administered on 03/03/19at 06:28; Admin Dose 650 MG; Start 02/06/19 at 15:00 Atorvastatin Calcium (Lipitor) 10 mg DAILY@21 PO Last administered on 03/02/19at 21:08; Admin Dose 10 MG; Start 02/06/19 at 21:00 Miscellaneous Information 1 ea NOTE XX ; Start 02/06/19 at 16:00 Glucose (Glutose) 15 gm Q15M PRN PO DECREASED GLUCOSE; Start 02/06/19 at 16:00 Glucose (Glutose) 22.5 gm Q15M PRN PO DECREASED GLUCOSE; Start 02/06/19 at 16:00 Dextrose (D50w Syringe) 25 ml Q15M PRN IV DECREASED GLUCOSE Last administered on 02/26/19at 17:21; Admin Dose 25 ML; Start 02/06/19 at 16:00 Dextrose (D50w Syringe) 50 ml Q15M PRN IV DECREASED GLUCOSE; Start 02/06/19 at 16:00 Glucagon (Glucagen) 1 mg Q15M PRN IM DECREASED GLUCOSE; Start 02/06/19 at 16:00 Glucose (Glutose) 15 gm Q15M PRN BUCCAL DECREASED GLUCOSE Last administered on 02/22/19at 23:24; Admin Dose 15 GM; Start 02/06/19 at 16:00 Pantoprazole (Protonix Tab) 40 mg BID@0600,1800 PO Last administered on 03/03/19at 06:28; Admin Dose 40 MG; Start 02/07/19 at 06:00 Miscellaneous Information (* Miscellaneous Pharmacy Order) Treatment of Hypoglycemia: 1.BG 51... Per protocol XX ; Start 02/08/19 at 09:00 Dextrose (D50w Syringe) 25 ml Q15M PRN IV .DECREASED GLUCOSE; Start 02/08/19 at 09:00 Dextrose (D50w Syringe) 50 ml Q15M PRN IV .DECREASED GLUCOSE; Start 02/08/19 at 09:00 Methimazole (Tapazole) 30 mg BID PO Last administered on 03/03/19at 09:15; Admin Dose 30 MG; Start 02/08/19 at 13:30 Heparin Sodium (Porcine) (Heparin (5000 Units/1ml)) 5,000 unit BID SC Last administered on 02/14/19at 22:48; Admin Dose 5,000 UNIT; Start 02/11/19 at 09:00; Status Hold Acetaminophen/ Hydrocodone Bitart ([place] (5/325)) 1 tab Q6H PRN PO MODERATE PAIN LEVEL 4-6 Last administered on 02/23/19at 14:08; Admin Dose 1 TAB; Start 02/12/19 at 09:00 Senna (Senokot) 2 tab BID PO Last administered on 03/03/19 09:15; Admin Dose 2 TAB; Start 02/16/19 at 21:00 Morphine Sulfate (morphine) 2 mg Q4H PRN IV SEVERE PAIN LEVEL 7-10 Last administered on 02/22/19at 18:33; Admin Dose 2 MG; Start 02/22/19 at 09:00 Insulin Aspart (Novolog Insulin Pen) NOVOLOG *MILD* ALGORITHM WITH MEALS BEDTIME SC ; Start 02/23/19 at 11:50 Midodrine (Proamatine) 10 mg TID@09,13,17 PO Last administered on 03/03/19 12:11; Admin Dose 10 MG; Start 02/23/19 at 13:00 Insulin Aspart (Novolog Insulin Pen) 4 unit WITH MEALS SC Last administered on 03/03/19 12:05; Admin Dose 4 UNIT; Start 02/23/19 at 17:55 Ascorbic Acid (Vitamin C) 500 mg BID PO Last administered on 03/03/19 09:14; Admin Dose 500 MG; Start 02/24/19 at 21:00; Stop 03/26/19 at 20:59 Ferrous Sulfate (Ferrous Sulfate (Ec)) 325 mg BID PO Last administered on 03/03/19 09:14; Admin Dose 325 MG; Start 02/24/19 at 21:00; Stop 03/26/19 at 20:59 Furosemide (Lasix) 20 mg BID DIURETICS PO Last administered on 03/02/19 17:39; Admin Dose 20 MG; Start 02/27/19 at 18:00 Spironolactone (Aldactone) 50 mg BID DIURETICS PO Last administered on 03/03/19 06:31; Admin Dose 50 MG; Start 02/27/19 at 18:00 Docusate Sodium (Colace) 200 mg BID PO Last administered on 03/03/19 09:15; Admin Dose 200 MG; Start 02/27/19 at 21:00 Bismuth Subsalicylate (Pepto-Bismol) 30 ml QID PO Last administered on 03/03/19 at 14:09; Admin Dose 30 ML; Start 02/27/19 at 21:00 Cefepime HCl 50 ml @ 100 mls/hr Q12 IVPB Last administered on 03/03/19 09:16; Admin Dose 100 MLS/HR; Start 03/01/19 at 13:00 Insulin Glargine (Lantus) 3 units DAILY@0930 SC Last administered on 03/03/19 08:38; Admin Dose 3 UNITS; Start 03/02/19 at 09:30 BRENDEN AGUAYO M.D. Mar 03, 2019 15:37
[2019-03-03] MEDS: ATORVASTATIN 10 MG TAB PO SCH (21:37)
[2019-03-03] MEDS: ONDANSETRON 4 MG INJ IV PRN (23:02)
[2019-03-04] VITALS (26 sets, daily range): BP systolic 76–120; BP diastolic 27–70; PULSE 98–129; RESP 18–27
[2019-03-04] MEDS: ALBUMIN HUMAN 25% 100 ML IV SCH ×2 (01:46→02:59)
[2019-03-04] MEDS ORDERED: METOCLOPRAMIDE 10 MG INJ IV PRN ×2 (03:30→15:30)
[2019-03-04] MEDS ORDERED: ONDANSETRON 4 MG INJ IV PRN ×2 (03:30→15:30)
[2019-03-04] MEDS ORDERED: MIDODRINE 5 MG TAB PO ONE (04:30)
[2019-03-04] MEDS: SPIRONOLACTONE 50 MG TAB PO SCH ×3 (05:50→18:07)
[2019-03-04] MEDS: PANTOPRAZOLE (EC) 40 MG TAB PO SCH ×2 (05:50→18:22)
[2019-03-04] MEDS: FUROSEMIDE 20 MG TAB PO SCH ×2 (05:50→18:08)
[2019-03-04] MEDS: INSULIN ASPART [NOVOLOG] 3 ML PEN SC SCH ×7 (07:55→21:00)
[2019-03-04] MEDS: INSULIN GLARGINE [LANTus] (100 UNITS/ML) SYG SC SCH (08:39)
[2019-03-04] MEDS: CEFEPIME 1GM/50 ML (PMX) 50 ML IVPB SCH ×2 (08:41→21:28)
[2019-03-04] MEDS: DOCUSATE SODIUM 100 MG CAP PO SCH ×2 (08:41→21:28)
[2019-03-04] MEDS: SENNA TAB PO SCH ×2 (08:43→21:28)
[2019-03-04] MEDS: ASCORBIC ACID 500 MG TAB PO SCH ×2 (08:43→21:28)
[2019-03-04] MEDS: FERROUS SULFATE (EC) 325 MG TAB PO SCH ×2 (08:43→21:28)
[2019-03-04] MEDS: MIDODRINE 5 MG TAB PO SCH ×3 (08:43→18:25)
[2019-03-04] MEDS: METHIMAZOLE 5 MG TAB PO SCH (08:43)
[2019-03-04] MEDS: BISMUTH SUBSALICYLATE 240 ML BTL PO SCH ×4 (09:10→21:28)
--- NOTE | 2019-03-04 09:22 | PN ---
DATE: 03/04/2019 SUBJECTIVE: The patient was noted to be hypotensive overnight, was given a course of IV albumin. Th e patient is pending EGD. No other events noted. OBJECTIVE: VITAL SIGNS: Blood pressure is 107/66, respirations 18, pulse 110, temperature 98.2. HEENT: Head is normocephalic. NECK: Supple. HEART: Regular rate. LUNGS: Show diminished breath sounds at the base. ABDOMEN: Soft, nontender to palpation without rebound or guarding. EXTREMITIES: Negative for clubbing, cyanosis, no edema. DERMATOLOGIC: No rashes. MUSCULOSKELETAL: No joint effusion. NEUROLOGIC: No change in exam. MEDICATIONS: The patient's medications have been reviewed. LABORATORY DATA: Reviewed. ASSESSMENT AND PLAN: 1. Hypernatremia, etiology is secondary to cirrhosis. The patient's sodium levels have been low but stable. We will continue free water restriction, continue diuretic therapy as tolerated. Monitor c losely. 2. Volume overload secondary to cirrhosis. The patient is on Lasix and Aldactone We will continue if hemodynamically stable. The patient noted to be hypotensive this morning, status post IV albumin. Consider holding diuretic therapy, monitor closely. 4. Hypertension. Etiology is secondary to cirrhosis. The patient is on midodrine status post IV al bumin. Continue to monitor and adjust diuretics. 5. Decompensated cirrhosis. The patient is medically improving. Continue to monitor. 6. Graves' disease. Continue current treatment plan. 7. Systemic inflammatory response syndrome. Etiology is unclear. Workup is ongoing. Follow up wit h infectious disease. 8. Lactic acidosis likely secondary to cirrhosis, possible systemic inflammatory response syndrome. Continue to monitor. 9. History of Arrhythmia. Continue current treatment plan. 10. Hypomagnesemia. Continue to monitor and replete. 11. Pleural effusion, status post thoracentesis. Dictated By: DIANNA SAWYER DO NR/NTS Conf#: [id number] DID#: [id number] CC: EVIE TRAORE MD; PURVI QUIGLEY MD; KIRK AREVALO MD;*End*
--- NOTE | 2019-03-04 12:18 | CONS ---
Assessment/Plan Assessment/Plan Hospital Course (Demo Recall) assessment/impression # recurrent fever, sepsis vs. SIRS of unknown etiology - persistent bilateral epididymitis, although ultrasound on 02/27/2019 showed improvement - persistent enterobacter in urine 02/27/2019, urine for gonorrhea and chlamydia was negative on 02/21/2019, urine culture <10K citrobacter and <10K ashley on 02/13/2019 - procalcitonin unremarkable: <0.1, 0.11, 0.2, 0.11, 0.14 - elevated ESR, lactic acid, C reactive protein - extraction of lower teeth prior to the start of fever according to Pt's daughter - past exposure to EBV - The following ID work up was negative: HIV screening, HIV viral load, cryptococcus antigen, mono, Dengue serology, blood smear for malaria, resp virus panel, MTB complex, HSV 1&2 by PCR, CMV, WBC scan on 12/18/2018, acute hepatitis panel, stool O&P, R. typhi IgM/IgG, pleural fluid (MTB complex NAAT/PCR probe, cultures of bacteria, fungi and AFB) - the following non-ID workup was negative too: rheumatoid factor, MATI, HIT panel, thyroglobulin, thyroid antimicrosomal # heme - s/p bone marrow biopsy 02/19/19, no e/o leukemia/lymphoma per conversation with Dr. Carvajal on 02/28/2019 - gastritis due to H. pylori: diagnosed by H. 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 AFB smear of sputum was negative on 12/11/2018, 12/13/2018, and 12/19/2018; repeat QTB gold negative on 12/16/2018 - mod-large pleural effusions per CT chest 02/22/19 - s/p thoracentesis on 02/28/2019, protein <2, LDH 512, an exudative effusion. MTB complex NAAT/PCR probe, cultures of bacteria, fungi and AFB negative so far. I ordered cytology, O&P on his pleural effusion but they were not performed. No reasons posted - h/o ESBL+klebsiella in sputum culture on 12/15/2018, likely colonizer # endo and cardiac - Graves disease with exophthalmos - Hyperthyroidism - on Tapazole - T2DM - Hgb A1c 5.6% - SVT on 02/17/2019, s/p adenosine revised recommendations: - pending results: hepatitis B viral load and hepatitis C viral load, IgD level, Leishmania IgG - On I discussed with Dr. Carvajal and requested that the following tests be done on Pt's bone marrow Bx from 02/19/2019: Giemsa stain to eval toxoplasma, leishmania, immunohistochemical stain for CMV, EBV, HSV and HHV8, AF B stain (AFB culture cannot be done because there is no more spare sample) - GI and cardiology consult appreciated: EGD followed by MADDIE to r/o esophageal varices and endocarditis, respectively - continue cefepime (restart 03/01/2019), plan for 7 days management d/w Pt, his and daughter by phone the total time I took to care for this Pt today was from 1100 to 1145 Consultation Date/Type/Reason Admit Date/Time Feb 06, 2019 at 14:46 Initial Consult Date 02/18/19 Type of Consult ID Requesting Provider: RODRIGUEZ DOTY Date/Time of Note DATE: 03/04/19 TIME: 12:11 24 HR Interval Summary Free Text/Dictation Pt's BP was low overnight Subjective hx not possible: other (Pt covered his head with a towel and did not answer most questions even with his by bedside) Detailed Summary Cardiovascular: No chest pain Gastrointestinal: No pain Genitourinary: other (pressure from swollen scrotum) Exam/Review of Systems Exam Vitals Vital Signs Date Temp Pulse Resp B/P (MAP) Pulse Ox O2 O2 Flow FiO2 Time Delivery Rate 03/04/19 98.0 115 18 94/59 (71) 95 11:22 03/03/19 Nasal 2.0 20:00 Cannula Intake and Output 03/03/19 03/03/19 03/04/19 1515:00 23:00 07:00 IntakeIntake Total 650 ml 550 ml OutputOutput Total 500 ml 350 ml BalanceBalance 150 ml 200 ml Constitutional: frail, other (covered his head with a towel) Psych: no complaints, nl mood/affect Head: normocephalic, atraumatic Eyes: nl conjunctiva, nl lids, nl sclera ENMT: nl external ears & nose, nl nasal mucosa & septum, mucosa pink and moist Neck: other (not swollen) Respiratory: clear to auscultation, normal air movement Cardiovascular: regular rate and rhythm, nl pulses Gastrointestinal: soft, non-tender; No distended Genitourinary - Male: other (swollen scrotum) Musculoskeletal: nl extremities to inspection Extremities: No edema Neurological: lethargic Skin: nl turgor; No rash or lesions Results Result Diagram: 03/04/19 0746 03/03/19 0750 Results 24hrs Laboratory Tests Test 03/03/19 17:06 03/03/19 18:37 03/03/19 21:35 03/04/19 07:46 Bedside Glucose 75 96 Thyroid < 0.015 L Stimulating Hormone (TSH) Free Thyroxine 2.09 H Free 2.41 L Triiodothyronine (T3) pg/mL White Blood Count 6.9 Red Blood Count 3.65 L Hemoglobin 8.8 L Hematocrit 28.1 L Mean Corpuscular 77.0 L Volume Mean Corpuscular 24.1 L Hemoglobin Mean Corpuscular 31.3 L Hemoglobin Concent Red Cell 22.8 H Distribution Width Platelet Count 112 #L Mean Platelet 10.0 Volume Immature 0.700 H Granulocytes % Neutrophils % Segmented 74 Neutrophils % (Manual) Band Neutrophils % 3 (Manual) Lymphocytes % Lymphocytes % 9 L (Manual) Reactive 4 H Lymphocytes % (Manual) Monocytes % Monocytes % 10 (Manual) Eosinophils % Basophils % Nucleated Red 0.0 Blood Cells % Immature 0.050 H Granulocytes # Neutrophils # Neutrophils # 5.1 (Manual) Band Neutrophils # 0.2 Lymphocytes 0.6 L (Manual) Lymphocytes # Reactive 0.2 H Lymphocytes # Monocytes # Monocytes # 0.6 (Manual) Eosinophils # Basophils # Nucleated Red Blood Cells # Platelet Estimate DECREASED Polychromasia 2+ Poikilocytosis 1+ Anisocytosis 2+ Microcytosis 2+ Ovalocytes 1+ Elliptocytes 1+ Prothrombin Time 16.9 H Prothrombin Time 1.3 Ratio INR International 1.36 Normalized Ratio Lactic Acid Level 3.3 *H Test 03/04/19 08:26 03/04/19 11:39 03/04/19 11:45 Bedside Glucose 109 120 Lab Scanned Report REFERENCE LAB Medications Medication Current Medications IV Flush (NS 3 ml) 3 ml PER PROTOCOL IV ; Start 02/06/19 at 15:00 Acetaminophen (Tylenol Tab) 650 mg Q6H PRN PO .PAIN 1-3 OR TEMP Last administered on 03/03/19at 06:28; Admin Dose 650 MG; Start 02/06/19 at 15:00 Atorvastatin Calcium (Lipitor) 10 mg DAILY@21 PO Last administered on 03/03/19at 21:37; Admin Dose 10 MG; Start 02/06/19 at 21:00 Miscellaneous Information 1 ea NOTE XX ; Start 02/06/19 at 16:00 Glucose (Glutose) 15 gm Q15M PRN PO DECREASED GLUCOSE; Start 02/06/19 at 16:00 Glucose (Glutose) 22.5 gm Q15M PRN PO DECREASED GLUCOSE; Start 02/06/19 at 16:00 Dextrose (D50w Syringe) 25 ml Q15M PRN IV DECREASED GLUCOSE Last administered on 02/26/19at 17:21; Admin Dose 25 ML; Start 02/06/19 at 16:00 Dextrose (D50w Syringe) 50 ml Q15M PRN IV DECREASED GLUCOSE; Start 02/06/19 at 16:00 Glucagon (Glucagen) 1 mg Q15M PRN IM DECREASED GLUCOSE; Start 02/06/19 at 16:00 Glucose (Glutose) 15 gm Q15M PRN BUCCAL DECREASED GLUCOSE Last administered on 02/22/19at 23:24; Admin Dose 15 GM; Start 02/06/19 at 16:00 Pantoprazole (Protonix Tab) 40 mg BID@0600,1800 PO Last administered on 03/04/19at 05:50; Admin Dose 40 MG; Start 02/07/19 at 06:00 Miscellaneous Information (* Miscellaneous Pharmacy Order) Treatment of Hypoglycemia: 1.BG 51... Per protocol XX ; Start 02/08/19 at 09:00 Dextrose (D50w Syringe) 25 ml Q15M PRN IV .DECREASED GLUCOSE; Start 02/08/19 at 09:00 Dextrose (D50w Syringe) 50 ml Q15M PRN IV .DECREASED GLUCOSE; Start 02/08/19 at 09:00 Methimazole (Tapazole) 30 mg BID PO Last administered on 03/04/19at 08:43; Admin Dose 30 MG; Start 02/08/19 at 13:30 Heparin Sodium (Porcine) (Heparin (5000 Units/1ml)) 5,000 unit BID SC Last administered on 02/14/19 22:48; Admin Dose 5,000 UNIT; Start 02/11/19 at 09:00; Status Hold Acetaminophen/ Hydrocodone Bitart ([place] (5/325)) 1 tab Q6H PRN PO MODERATE PAIN LEVEL 4-6 Last administered on 02/23/19 14:08; Admin Dose 1 TAB; Start 02/12/19 at 09:00 Senna (Senokot) 2 tab BID PO Last administered on 03/04/19 08:43; Admin Dose 2 TAB; Start 02/16/19 at 21:00 Morphine Sulfate (morphine) 2 mg Q4H PRN IV SEVERE PAIN LEVEL 7-10 Last administered on 02/22/19 18:33; Admin Dose 2 MG; Start 02/22/19 at 09:00 Insulin Aspart (Novolog Insulin Pen) NOVOLOG *MILD* ALGORITHM WITH MEALS BEDTIME SC ; Start 02/23/19 at 11:50 Midodrine (Proamatine) 10 mg TID@,,17 PO Last administered on 03/04/19 08:43; Admin Dose 10 MG; Start 02/23/19 at 13:00 Insulin Aspart (Novolog Insulin Pen) 4 unit WITH MEALS SC Last administered on 03/04/19 12:07; Admin Dose 4 UNIT; Start 02/23/19 at 17:55 Ascorbic Acid (Vitamin C) 500 mg BID PO Last administered on 03/04/19 08:43; Admin Dose 500 MG; Start 02/24/19 at 21:00; Stop 03/26/19 at 20:59 Ferrous Sulfate (Ferrous Sulfate (Ec)) 325 mg BID PO Last administered on 03/04/19 08:43; Admin Dose 325 MG; Start 02/24/19 at 21:00; Stop 03/26/19 at 20:59 Furosemide (Lasix) 20 mg BID DIURETICS PO Last administered on 03/04/19 05:50; Admin Dose 20 MG; Start 02/27/19 at 18:00 Spironolactone (Aldactone) 50 mg BID DIURETICS PO Last administered on 03/04/19 05:50; Admin Dose 50 MG; Start 02/27/19 at 18:00 Docusate Sodium (Colace) 200 mg BID PO Last administered on 03/04/19 08:41; Admin Dose 200 MG; Start 02/27/19 at 21:00 Bismuth Subsalicylate (Pepto-Bismol) 30 ml QID PO Last administered on 03/04/19 at 09:10; Admin Dose 30 ML; Start 02/27/19 at 21:00 Cefepime HCl 50 ml @ 100 mls/hr Q12 IVPB Last administered on 03/04/19 08:41; Admin Dose 100 MLS/HR; Start 03/01/19 at 13:00 Insulin Glargine (Lantus) 3 units DAILY@0930 SC Last administered on 03/04/19 08:39; Admin Dose 3 UNITS; Start 03/02/19 at 09:30 Ondansetron HCl (Zofran Inj) 4 mg Q4 PRN IV NAUSEA/VOMITING Last administered on 03/04/19 05:50; Admin Dose 4 MG; Start 03/04/19 at 03:30 Metoclopramide HCl (Reglan) 10 mg Q6H PRN IV NAUSEA Last administered on 03/04/19 03:22; Admin Dose 10 MG; Start 03/04/19 at 03:30 BRENDEN AGUAYO M.D. Mar 04, 2019 12:18
--- NOTE | 2019-03-04 13:03 | CONS ---
Consult Date/Type/Reason Admit Date/Time Feb 06, 2019 at 14:46 Initial Consult Date 03/03/19 Type of Consultation: Rheumatology Requesting Provider: RODRIGUEZ DOTY Date/Time of Note DATE: 03/04/19 TIME: 12:56 Subjective No new complaints. Had hypotension during the night. Treated with Albumin. To have EGD and MADDIE. Objective Vitals Vital Signs Date Temp Pulse Resp B/P (MAP) Pulse Ox O2 O2 Flow FiO2 Time Delivery Rate 03/04/19 98.0 115 18 94/59 (71) 95 11:22 03/03/19 Nasal 2.0 20:00 Cannula Intake and Output 03/03/19 03/03/19 03/04/19 1414:59 22:59 06:59 IntakeIntake Total 650 ml 550 ml OutputOutput Total 500 ml 350 ml BalanceBalance 150 ml 200 ml Exam GENERAL: NAD at present. alert. SKIN: Without acute lesions. HEENT: Without acute oral or ocular lesions. NECK: Without definite masses noted. Supple. CHEST: Clear to auscultation. HEART: Regular rate and rhythm. Proximal and distal pulses are full. ABDOMEN: Soft without masses or tenderness noted. EXTREMITIES: Joints with good range of motion without synovitis. NEUROLOGIC: Grossly intact. Results/Medications Result Diagram: 03/04/19 0746 03/03/19 0750 Results 24 hrs Laboratory Tests Test 03/03/19 17:06 03/03/19 18:37 03/03/19 21:35 03/04/19 07:46 Bedside Glucose 75 96 Thyroid < 0.015 L Stimulating Hormone (TSH) Free Thyroxine 2.09 H Free 2.41 L Triiodothyronine (T3) pg/mL White Blood Count 6.9 Red Blood Count 3.65 L Hemoglobin 8.8 L Hematocrit 28.1 L Mean Corpuscular 77.0 L Volume Mean Corpuscular 24.1 L Hemoglobin Mean Corpuscular 31.3 L Hemoglobin Concent Red Cell 22.8 H Distribution Width Platelet Count 112 #L Mean Platelet 10.0 Volume Immature 0.700 H Granulocytes % Neutrophils % Segmented 74 Neutrophils % (Manual) Band Neutrophils % 3 (Manual) Lymphocytes % Lymphocytes % 9 L (Manual) Reactive 4 H Lymphocytes % (Manual) Monocytes % Monocytes % 10 (Manual) Eosinophils % Basophils % Nucleated Red 0.0 Blood Cells % Immature 0.050 H Granulocytes # Neutrophils # Neutrophils # 5.1 (Manual) Band Neutrophils # 0.2 Lymphocytes 0.6 L (Manual) Lymphocytes # Reactive 0.2 H Lymphocytes # Monocytes # Monocytes # 0.6 (Manual) Eosinophils # Basophils # Nucleated Red Blood Cells # Platelet Estimate DECREASED Polychromasia 2+ Poikilocytosis 1+ Anisocytosis 2+ Microcytosis 2+ Ovalocytes 1+ Elliptocytes 1+ Prothrombin Time 16.9 H Prothrombin Time 1.3 Ratio INR International 1.36 Normalized Ratio Lactic Acid Level 3.3 *H Test 03/04/19 08:26 03/04/19 11:39 03/04/19 11:45 Bedside Glucose 109 120 Lab Scanned Report REFERENCE LAB Home Meds Active Scripts Insulin Glargine* (Lantus*) 100 Unit/Ml Soln, 15 UNIT SC DAILY, #14 [facility] Insulin Aspart* (Novolog Insulin Pen*) 100 Unit/Ml Soln, 7 UNIT SC WITH MEALS, #7 VIAL Prov:LONA,[facility]. 02/11/19 Sennosides* (Senna Lax*) 8.6 Mg Tablet, 2 TAB PO BID, #120 [facility]11[facility]19 Clarithromycin* (Clarithromycin*) 500 Mg Tablet, 500 MG PO BID for 5 Days, #10 TAB [facility] 02/11/19 Amoxicillin* (Amoxicillin*) 500 Mg Cap, 1000 MG PO BID for 5 Days, #10 CAP [facility] 02/11/19 Methimazole* (Methimazole*) 10 Mg Tablet, 30 MG PO BID, #180 TAB 1 [facility] 02/11/19 Reported Medications Pantoprazole* (Pantoprazole*) 40 Mg Tablet.dr, 40 MG PO AC BREAKFAST, TAB 02/06/19 Simvastatin* (Zocor*) 20 Mg Tablet, 20 MG PO QHS, #30 TAB 01/16/19 Lisinopril* (Lisinopril*) 2.5 Mg Tablet, 2.5 MG PO DAILY, #30 TAB 01/16/19 Propranolol Hcl* (Propranolol Hcl*) 40 Mg Tablet, 80 MG PO TID, TAB 01/16/19 Medications Current Medications IV Flush (NS 3 ml) 3 ml PER PROTOCOL IV ; Start 02/06/19 at 15:00 Acetaminophen (Tylenol Tab) 650 mg Q6H PRN PO .PAIN 1-3 OR TEMP Last administered on 03/03/19at 06:28; Admin Dose 650 MG; Start 02/06/19 at 15:00 Atorvastatin Calcium (Lipitor) 10 mg DAILY@21 PO Last administered on 03/03/19at 21:37; Admin Dose 10 MG; Start 02/06/19 at 21:00 Miscellaneous Information 1 ea NOTE XX ; Start 02/06/19 at 16:00 Glucose (Glutose) 15 gm Q15M PRN PO DECREASED GLUCOSE; Start 02/06/19 at 16:00 Glucose (Glutose) 22.5 gm Q15M PRN PO DECREASED GLUCOSE; Start 02/06/19 at 16:00 Dextrose (D50w Syringe) 25 ml Q15M PRN IV DECREASED GLUCOSE Last administered on 02/26/19at 17:21; Admin Dose 25 ML; Start 02/06/19 at 16:00 Dextrose (D50w Syringe) 50 ml Q15M PRN IV DECREASED GLUCOSE; Start 02/06/19 at 16:00 Glucagon (Glucagen) 1 mg Q15M PRN IM DECREASED GLUCOSE; Start 02/06/19 at 16:00 Glucose (Glutose) 15 gm Q15M PRN BUCCAL DECREASED GLUCOSE Last administered on 02/22/19at 23:24; Admin Dose 15 GM; Start 02/06/19 at 16:00 Pantoprazole (Protonix Tab) 40 mg BID@0600,1800 PO Last administered on 03/04/19at 05:50; Admin Dose 40 MG; Start 02/07/19 at 06:00 Miscellaneous Information (* Miscellaneous Pharmacy Order) Treatment of Hypoglycemia: 1.BG 51... Per protocol XX ; Start 02/08/19 at 09:00 Dextrose (D50w Syringe) 25 ml Q15M PRN IV .DECREASED GLUCOSE; Start 02/08/19 at 09:00 Dextrose (D50w Syringe) 50 ml Q15M PRN IV .DECREASED GLUCOSE; Start 02/08/19 at 09:00 Methimazole (Tapazole) 30 mg BID PO Last administered on 4/30/19at 08:43; Admin Dose 30 MG; Start 02/08/19 at 13:30 Heparin Sodium (Porcine) (Heparin (5000 Units/1ml)) 5,000 unit BID SC Last administered on 02/14/19 22:48; Admin Dose 5,000 UNIT; Start 02/11/19 at 09:00; Status Hold Acetaminophen/ Hydrocodone Bitart ([place] (5/325)) 1 tab Q6H PRN PO MODERATE PAIN LEVEL 4-6 Last administered on 02/23/19 14:08; Admin Dose 1 TAB; Start 02/12/19 at 09:00 Senna (Senokot) 2 tab BID PO Last administered on 03/04/19 08:43; Admin Dose 2 TAB; Start 02/16/19 at 21:00 Morphine Sulfate (morphine) 2 mg Q4H PRN IV SEVERE PAIN LEVEL 7-10 Last administered on 02/22/19 18:33; Admin Dose 2 MG; Start 02/22/19 at 09:00 Insulin Aspart (Novolog Insulin Pen) NOVOLOG *MILD* ALGORITHM WITH MEALS BEDTIME SC ; Start 02/23/19 at 11:50 Midodrine (Proamatine) 10 mg TID@09,13,17 PO Last administered on 03/04/19 12:36; Admin Dose 10 MG; Start 02/23/19 at 13:00 Insulin Aspart (Novolog Insulin Pen) 4 unit WITH MEALS SC Last administered on 03/04/19 12:07; Admin Dose 4 UNIT; Start 02/23/19 at 17:55 Ascorbic Acid (Vitamin C) 500 mg BID PO Last administered on 03/04/19 08:43; Admin Dose 500 MG; Start 02/24/19 at 21:00; Stop 03/26/19 at 20:59 Ferrous Sulfate (Ferrous Sulfate (Ec)) 325 mg BID PO Last administered on 03/04/19 08:43; Admin Dose 325 MG; Start 02/24/19 at 21:00; Stop 03/26/19 at 20:59 Furosemide (Lasix) 20 mg BID DIURETICS PO Last administered on 03/04/19 05:50; Admin Dose 20 MG; Start 02/27/19 at 18:00 Spironolactone (Aldactone) 50 mg BID DIURETICS PO Last administered on 4/30/19at 05:50; Admin Dose 50 MG; Start 02/27/19 at 18:00 Docusate Sodium (Colace) 200 mg BID PO Last administered on 03/04/19 08:41; Admin Dose 200 MG; Start 02/27/19 at 21:00 Bismuth Subsalicylate (Pepto-Bismol) 30 ml QID PO Last administered on 03/04/19 12:36; Admin Dose 30 ML; Start 02/27/19 at 21:00 Cefepime HCl 50 ml @ 100 mls/hr Q12 IVPB Last administered on 03/04/19 08:41; Admin Dose 100 MLS/HR; Start 03/01/19 at 13:00 Insulin Glargine (Lantus) 3 units DAILY@0930 SC Last administered on 03/04/19 08:39; Admin Dose 3 UNITS; Start 03/02/19 at 09:30 Ondansetron HCl (Zofran Inj) 4 mg Q4 PRN IV NAUSEA/VOMITING Last administered on 03/04/19 05:50; Admin Dose 4 MG; Start 03/04/19 at 03:30 Metoclopramide HCl (Reglan) 10 mg Q6H PRN IV NAUSEA Last administered on 03/04/19 03:22; Admin Dose 10 MG; Start 03/04/19 at 03:30 Assessment/Plan Assessment/Plan (Daily) ASSESSMENT: 1. Fever of unknown origin, along with marked fatigue of unclear etiology. Infection workup until now has been basically negative. In view of the dental work that he had prior to the development of symptoms, I agree with the infectious disease consultants' recommendations of evaluations for possible bacterial endocarditis. The patient has a negative MATI and rheumatoid factor, although I cannot rule out possible vasculitic syndrome at this point. 2. Hyperthyroidism. 3. Status post epididymitis. 4. Positive QuantiFERON Gold a few months ago with negative repeat and no evidence of active tuberculosis at present. 5. Cirrhosis. 6. Iron deficiency anemia and possibly related to bone marrow suppression as well, unclear etiology 7. Leukopenia and thrombocytopenia, likely due to cirrhosis. RECOMMENDATIONS: 1. ANCA and angiotensin converting enzyme results pending. 2. MADDIE for evaluating for possibility of bacterial endocarditis pending. 3. If cardiac evaluation is negative, could consider trial of corticosteroids that would start with low doses. LISSETT WEST MD Mar 04, 2019 13:03
--- NOTE | 2019-03-04 13:17 | CONS ---
Assessment/Plan Assessment/Plan Hospital Course (Demo Recall) #Anemia -Anemia workup is most consistent with iron deficiency given the iron saturation of 6%. pt received 5 days of IV iron -Hg stable at 8.8 -past anemia workup reveals the following: -normal SPEP which rules out monoclonal gammopathy -normal Hg electrophoresis which rules on beta thalassemia -vitamin b12 and folate are wnl -haptoglobin normal making hemolysis unlikely -f/u bone marrow bx to ensure there are no other contributing factors to the worsening anemia thrombocytopenia. Flow cytometry with mild atypia noted from last admission #Thrombocytopenia -platelets slightly lower at 112 -this may be secondary to medication effect. Methimazole and zosyn can both cause worsening thrombocytopenia. Although the platelet drop may have preceded when these meds were given -HIT negative -no evidence of TTP -DIC unlikely given normal fibrinogen -bone marrow bx is most consistent with thrombocytopenia from peripheral destruction rather than an inherent bone marrow issue #Hyperthyroidism -management per endocrinology Thank you for the opportunity to participate in this patients care A total of 40 minutes of face to face time was spent speaking with the patient, of which greater than 50% was spent in counseling and coordination of care and the detailed question and answer session. Consultation Date/Type/Reason Admit Date/Time Feb 06, 2019 at 14:46 Initial Consult Date 02/18/19 Type of Consult oncology Reason for Consultation anemia Requesting Provider: RODRIGUEZ DOTY Date/Time of Note DATE: 03/04/19 TIME: 13:13 24 HR Interval Summary Free Text/Dictation afebrile but still tachycardic Exam/Review of Systems Exam Vitals Vital Signs Date Temp Pulse Resp B/P (MAP) Pulse Ox O2 O2 Flow FiO2 Time Delivery Rate 03/04/19 98.0 115 18 94/59 (71) 95 11:22 03/03/19 Nasal 2.0 20:00 Cannula Intake and Output 03/03/19 03/03/19 03/04/19 1515:00 23:00 07:00 IntakeIntake Total 650 ml 550 ml OutputOutput Total 500 ml 350 ml BalanceBalance 150 ml 200 ml Constitutional: alert, oriented, frail, other (cachetic) Psych: anxiety, confusion, depression Eyes: nl conjunctiva ENMT: nl external ears & nose Neck: supple Respiratory: clear to auscultation Cardiovascular: regular rate and rhythm Gastrointestinal: soft Musculoskeletal: nl extremities to inspection Extremities: normal pulses Results Result Diagram: 03/04/19 0746 03/03/19 0750 Results 24hrs Laboratory Tests Test 03/03/19 17:06 03/03/19 18:37 03/03/19 21:35 03/04/19 07:46 Bedside Glucose 75 96 Thyroid < 0.015 L Stimulating Hormone (TSH) Free Thyroxine 2.09 H Free 2.41 L Triiodothyronine (T3) pg/mL White Blood Count 6.9 Red Blood Count 3.65 L Hemoglobin 8.8 L Hematocrit 28.1 L Mean Corpuscular 77.0 L Volume Mean Corpuscular 24.1 L Hemoglobin Mean Corpuscular 31.3 L Hemoglobin Concent Red Cell 22.8 H Distribution Width Platelet Count 112 #L Mean Platelet 10.0 Volume Immature 0.700 H Granulocytes % Neutrophils % Segmented 74 Neutrophils % (Manual) Band Neutrophils % 3 (Manual) Lymphocytes % Lymphocytes % 9 L (Manual) Reactive 4 H Lymphocytes % (Manual) Monocytes % Monocytes % 10 (Manual) Eosinophils % Basophils % Nucleated Red 0.0 Blood Cells % Immature 0.050 H Granulocytes # Neutrophils # Neutrophils # 5.1 (Manual) Band Neutrophils # 0.2 Lymphocytes 0.6 L (Manual) Lymphocytes # Reactive 0.2 H Lymphocytes # Monocytes # Monocytes # 0.6 (Manual) Eosinophils # Basophils # Nucleated Red Blood Cells # Platelet Estimate DECREASED Polychromasia 2+ Poikilocytosis 1+ Anisocytosis 2+ Microcytosis 2+ Ovalocytes 1+ Elliptocytes 1+ Prothrombin Time 16.9 H Prothrombin Time 1.3 Ratio INR International 1.36 Normalized Ratio Lactic Acid Level 3.3 *H Test 03/04/19 08:26 03/04/19 11:39 03/04/19 11:45 Bedside Glucose 109 120 Lab Scanned Report REFERENCE LAB Medications Medication Current Medications IV Flush (NS 3 ml) 3 ml PER PROTOCOL IV ; Start 02/06/19 at 15:00 Acetaminophen (Tylenol Tab) 650 mg Q6H PRN PO .PAIN 1-3 OR TEMP Last administered on 03/03/19at 06:28; Admin Dose 650 MG; Start 02/06/19 at 15:00 Atorvastatin Calcium (Lipitor) 10 mg DAILY@21 PO Last administered on 03/03/19at 21:37; Admin Dose 10 MG; Start 02/06/19 at 21:00 Miscellaneous Information 1 ea NOTE XX ; Start 02/06/19 at 16:00 Glucose (Glutose) 15 gm Q15M PRN PO DECREASED GLUCOSE; Start 02/06/19 at 16:00 Glucose (Glutose) 22.5 gm Q15M PRN PO DECREASED GLUCOSE; Start 02/06/19 at 16:00 Dextrose (D50w Syringe) 25 ml Q15M PRN IV DECREASED GLUCOSE Last administered on 02/26/19at 17:21; Admin Dose 25 ML; Start 02/06/19 at 16:00 Dextrose (D50w Syringe) 50 ml Q15M PRN IV DECREASED GLUCOSE; Start 02/06/19 at 16:00 Glucagon (Glucagen) 1 mg Q15M PRN IM DECREASED GLUCOSE; Start 02/06/19 at 16:00 Glucose (Glutose) 15 gm Q15M PRN BUCCAL DECREASED GLUCOSE Last administered on 02/22/19at 23:24; Admin Dose 15 GM; Start 02/06/19 at 16:00 Pantoprazole (Protonix Tab) 40 mg BID@0600,1800 PO Last administered on 03/04/19at 05:50; Admin Dose 40 MG; Start 02/07/19 at 06:00 Miscellaneous Information (* Miscellaneous Pharmacy Order) Treatment of Hypoglycemia: 1.BG 51... Per protocol XX ; Start 02/08/19 at 09:00 Dextrose (D50w Syringe) 25 ml Q15M PRN IV .DECREASED GLUCOSE; Start 02/08/19 at 09:00 Dextrose (D50w Syringe) 50 ml Q15M PRN IV .DECREASED GLUCOSE; Start 02/08/19 at 09:00 Methimazole (Tapazole) 30 mg BID PO Last administered on 03/04/19at 08:43; Admin Dose 30 MG; Start 02/08/19 at 13:30 Heparin Sodium (Porcine) (Heparin (5000 Units/1ml)) 5,000 unit BID SC Last administered on 02/14/19at 22:48; Admin Dose 5,000 UNIT; Start 02/11/19 at 09:00; Status Hold Acetaminophen/ Hydrocodone Bitart ([place] (5/325)) 1 tab Q6H PRN PO MODERATE PAIN LEVEL 4-6 Last administered on 02/23/19at 14:08; Admin Dose 1 TAB; Start 02/12/19 at 09:00 Senna (Senokot) 2 tab BID PO Last administered on 03/04/19 08:43; Admin Dose 2 TAB; Start 02/16/19 at 21:00 Morphine Sulfate (morphine) 2 mg Q4H PRN IV SEVERE PAIN LEVEL 7-10 Last administered on 02/22/19 18:33; Admin Dose 2 MG; Start 02/22/19 at 09:00 Insulin Aspart (Novolog Insulin Pen) NOVOLOG *MILD* ALGORITHM WITH MEALS BEDTIME SC ; Start 02/23/19 at 11:50 Midodrine (Proamatine) 10 mg TID@09,13,17 PO Last administered on 03/04/19 12:36; Admin Dose 10 MG; Start 02/23/19 at 13:00 Insulin Aspart (Novolog Insulin Pen) 4 unit WITH MEALS SC Last administered on 03/04/19 12:07; Admin Dose 4 UNIT; Start 02/23/19 at 17:55 Ascorbic Acid (Vitamin C) 500 mg BID PO Last administered on 03/04/19 08:43; Admin Dose 500 MG; Start 02/24/19 at 21:00; Stop 03/26/19 at 20:59 Ferrous Sulfate (Ferrous Sulfate (Ec)) 325 mg BID PO Last administered on 03/04/19 08:43; Admin Dose 325 MG; Start 02/24/19 at 21:00; Stop 03/26/19 at 20:59 Furosemide (Lasix) 20 mg BID DIURETICS PO Last administered on 03/04/19 05:5 0; Admin Dose 20 MG; Start 02/27/19 at 18:00 Spironolactone (Aldactone) 50 mg BID DIURETICS PO Last administered on 03/04/19 05:50; Admin Dose 50 MG; Start 02/27/19 at 18:00 Docusate Sodium (Colace) 200 mg BID PO Last administered on 03/04/19 08:41; Admin Dose 200 MG; Start 02/27/19 at 21:00 Bismuth Subsalicylate (Pepto-Bismol) 30 ml QID PO Last administered on 03/04/19 12:36; Admin Dose 30 ML; Start 02/27/19 at 21:00 Cefepime HCl 50 ml @ 100 mls/hr Q12 IVPB Last administered on 03/04/19 08:41; Admin Dose 100 MLS/HR; Start 03/01/19 at 13:00 Insulin Glargine (Lantus) 3 units DAILY@0930 SC Last administered on 03/04/19 08:39; Admin Dose 3 UNITS; Start 03/02/19 at 09:30 Ondansetron HCl (Zofran Inj) 4 mg Q4 PRN IV NAUSEA/VOMITING Last administered on 03/04/19 05:50; Admin Dose 4 MG; Start 03/04/19 at 03:30 Metoclopramide HCl (Reglan) 10 mg Q6H PRN IV NAUSEA Last administered on 03/04/19 03:22; Admin Dose 10 MG; Start 03/04/19 at 03:30 HOLDEN CROWE M.D. Mar 04, 2019 13:17
--- NOTE | 2019-03-04 14:34 | PN ---
Date/Time of Note Date/Time of Note DATE: 03/04/19 TIME: 14:34 Assessment/Plan VTE Prophylaxis Risk score (from Nsg)>0 risk: 6 SCD applied (from Nsg): Yes Pharmacological prophylaxis: heparin Lines/Catheters IV Catheter Type (from Nrsg): [place] Urinary Cath still in place: No Assessment/Plan Hospital Course EXAM: Appears comfortable Tachy, regular Thyromegaly Mild proprtosis CTAB Soft nt nd Testicular edema resolving 59 yo male with hyperthyroidism, hyponatremia, and pancytopenias with FUO/SIRS Fluid overload: - Continue diuretics Cirrhosis: - EGD pending - Serologic workup pending. No major etoh history FUO/SIRS: - Abx per ID - Unclear source. Has not resolved with abx. Extensive imaging negative for malignancy or infection. Bone marrow biopsy negative. WBC scan negative previously - MADDIE per ID - Vasculitis workup per rheumatology Hyperthyroid: - Off of anti-thyroidal meds per endocrine in anticipation of ablation as outpatient Tachycardia 2/ hyperthyroid: - Metoprolol titration Cytopenias: - Flow cytometry suggested mild atypia, bone marrow biopsy wnl. LDH very elevated of unclear significance DMII: - Basal/bolus insulin Hyponatremia: - Chronic SIADH - Started on salt tabs, FW restrition H Pylori infection: - 3x therapy per ID Discharge plan: To home Result Diagram: 03/04/19 0746 03/03/19 0750 Results 24hrs Laboratory Tests Test 03/03/19 17:06 03/03/19 18:37 03/03/19 21:35 03/04/19 07:46 Bedside Glucose 75 96 Thyroid < 0.015 L Stimulating Hormone (TSH) Free Thyroxine 2.09 H Free 2.41 L Triiodothyronine (T3) pg/mL White Blood Count 6.9 Red Blood Count 3.65 L Hemoglobin 8.8 L Hematocrit 28.1 L Mean Corpuscular 77.0 L Volume Mean Corpuscular 24.1 L Hemoglobin Mean Corpuscular 31.3 L Hemoglobin Concent Red Cell 22.8 H Distribution Width Platelet Count 112 #L Mean Platelet 10.0 Volume Immature 0.700 H Granulocytes % Neutrophils % Segmented 74 Neutrophils % (Manual) Band Neutrophils % 3 (Manual) Lymphocytes % Lymphocytes % 9 L (Manual) Reactive 4 H Lymphocytes % (Manual) Monocytes % Monocytes % 10 (Manual) Eosinophils % Basophils % Nucleated Red 0.0 Blood Cells % Immature 0.050 H Granulocytes # Neutrophils # Neutrophils # 5.1 (Manual) Band Neutrophils # 0.2 Lymphocytes 0.6 L (Manual) Lymphocytes # Reactive 0.2 H Lymphocytes # Monocytes # Monocytes # 0.6 (Manual) Eosinophils # Basophils # Nucleated Red Blood Cells # Platelet Estimate DECREASED Polychromasia 2+ Poikilocytosis 1+ Anisocytosis 2+ Microcytosis 2+ Ovalocytes 1+ Elliptocytes 1+ Prothrombin Time 16.9 H Prothrombin Time 1.3 Ratio INR International 1.36 Normalized Ratio Lactic Acid Level 3.3 *H Test 03/04/19 08:26 03/04/19 11:39 03/04/19 11:45 Bedside Glucose 109 120 Lab Scanned Report REFERENCE LAB Subjective 24 Hr Interval Summary Free Text/Dictation Tachycardia, mild hypotension given albumin Feels well Exam/Review of Systems Exam Vitals Vital Signs Date Temp Pulse Resp B/P (MAP) Pulse Ox O2 O2 Flow FiO2 Time Delivery Rate 03/04/19 98.0 115 18 94/59 (71) 95 11:22 03/03/19 Nasal 2.0 20:00 Cannula Intake and Output 03/03/19 03/03/19 03/04/19 1515:00 23:00 07:00 IntakeIntake Total 650 ml 550 ml OutputOutput Total 500 ml 350 ml BalanceBalance 150 ml 200 ml Results Results 24hrs Laboratory Tests Test 03/03/19 17:06 03/03/19 18:37 03/03/19 21:35 03/04/19 07:46 Bedside Glucose 75 96 Thyroid < 0.015 L Stimulating Hormone (TSH) Free Thyroxine 2.09 H Free 2.41 L Triiodothyronine (T3) pg/mL White Blood Count 6.9 Red Blood Count 3.65 L Hemoglobin 8.8 L Hematocrit 28.1 L Mean Corpuscular 77.0 L Volume Mean Corpuscular 24.1 L Hemoglobin Mean Corpuscular 31.3 L Hemoglobin Concent Red Cell 22.8 H Distribution Width Platelet Count 112 #L Mean Platelet 10.0 Volume Immature 0.700 H Granulocytes % Neutrophils % Segmented 74 Neutrophils % (Manual) Band Neutrophils % 3 (Manual) Lymphocytes % Lymphocytes % 9 L (Manual) Reactive 4 H Lymphocytes % (Manual) Monocytes % Monocytes % 10 (Manual) Eosinophils % Basophils % Nucleated Red 0.0 Blood Cells % Immature 0.050 H Granulocytes # Neutrophils # Neutrophils # 5.1 (Manual) Band Neutrophils # 0.2 Lymphocytes 0.6 L (Manual) Lymphocytes # Reactive 0.2 H Lymphocytes # Monocytes # Monocytes # 0.6 (Manual) Eosinophils # Basophils # Nucleated Red Blood Cells # Platelet Estimate DECREASED Polychromasia 2+ Poikilocytosis 1+ Anisocytosis 2+ Microcytosis 2+ Ovalocytes 1+ Elliptocytes 1+ Prothrombin Time 16.9 H Prothrombin Time 1.3 Ratio INR International 1.36 Normalized Ratio Lactic Acid Level 3.3 *H Test 03/04/19 08:26 03/04/19 11:39 03/04/19 11:45 Bedside Glucose 109 120 Lab Scanned Report REFERENCE LAB Medications Medication Current Medications IV Flush (NS 3 ml) 3 ml PER PROTOCOL IV ; Start 02/06/19 at 15:00 Acetaminophen (Tylenol Tab) 650 mg Q6H PRN PO .PAIN 1-3 OR TEMP Last administered on 03/03/19at 06:28; Admin Dose 650 MG; Start 02/06/19 at 15:00 Atorvastatin Calcium (Lipitor) 10 mg DAILY@21 PO Last administered on 03/03/19at 21:37; Admin Dose 10 MG; Start 02/06/19 at 21:00 Miscellaneous Information 1 ea NOTE XX ; Start 02/06/19 at 16:00 Glucose (Glutose) 15 gm Q15M PRN PO DECREASED GLUCOSE; Start 02/06/19 at 16:00 Glucose (Glutose) 22.5 gm Q15M PRN PO DECREASED GLUCOSE; Start 02/06/19 at 16:00 Dextrose (D50w Syringe) 25 ml Q15M PRN IV DECREASED GLUCOSE Last administered on 02/26/19at 17:21; Admin Dose 25 ML; Start 02/06/19 at 16:00 Dextrose (D50w Syringe) 50 ml Q15M PRN IV DECREASED GLUCOSE; Start 02/06/19 at 16:00 Glucagon (Glucagen) 1 mg Q15M PRN IM DECREASED GLUCOSE; Start 02/06/19 at 16:00 Glucose (Glutose) 15 gm Q15M PRN BUCCAL DECREASED GLUCOSE Last administered on 02/22/19at 23:24; Admin Dose 15 GM; Start 02/06/19 at 16:00 Pantoprazole (Protonix Tab) 40 mg BID@0600,1800 PO Last administered on 03/04/19 05:50; Admin Dose 40 MG; Start 02/07/19 at 06:00 Miscellaneous Information (* Miscellaneous Pharmacy Order) Treatment of Hypoglycemia: 1.BG 51... Per protocol XX ; Start 02/08/19 at 09:00 Dextrose (D50w Syringe) 25 ml Q15M PRN IV .DECREASED GLUCOSE; Start 02/08/19 at 09:00 Dextrose (D50w Syringe) 50 ml Q15M PRN IV .DECREASED GLUCOSE; Start 02/08/19 at 09:00 Methimazole (Tapazole) 30 mg BID PO Last administered on 03/04/19 08:43; Admin Dose 30 MG; Start 02/08/19 at 13:30 Heparin Sodium (Porcine) (Heparin (5000 Units/1ml)) 5,000 unit BID SC Last administered on 02/14/19at 22:48; Admin Dose 5,000 UNIT; Start 02/11/19 at 09:00; Status Hold Acetaminophen/ Hydrocodone Bitart ([place] (5/325)) 1 tab Q6H PRN PO MODERATE PAIN LEVEL 4-6 Last administered on 02/23/19at 14:08; Admin Dose 1 TAB; Start 02/12/19 at 09:00 Senna (Senokot) 2 tab BID PO Last administered on 03/04/19 08:43; Admin Dose 2 TAB; Start 02/16/19 at 21:00 Morphine Sulfate (morphine) 2 mg Q4H PRN IV SEVERE PAIN LEVEL 7-10 Last adminis tered on 02/22/19at 18:33; Admin Dose 2 MG; Start 02/22/19 at 09:00 Insulin Aspart (Novolog Insulin Pen) NOVOLOG *MILD* ALGORITHM WITH MEALS BEDTIME SC ; Start 02/23/19 at 11:50 Midodrine (Proamatine) 10 mg TID@09,13,17 PO Last administered on 03/04/19 12:36; Admin Dose 10 MG; Start 02/23/19 at 13:00 Insulin Aspart (Novolog Insulin Pen) 4 unit WITH MEALS SC Last administered on 03/04/19 12:07; Admin Dose 4 UNIT; Start 02/23/19 at 17:55 Ascorbic Acid (Vitamin C) 500 mg BID PO Last administered on 03/04/19 08:43; Admin Dose 500 MG; Start 02/24/19 at 21:00; Stop 03/26/19 at 20:59 Ferrous Sulfate (Ferrous Sulfate (Ec)) 325 mg BID PO Last administered on 03/04/19 08:43; Admin Dose 325 MG; Start 02/24/19 at 21:00; Stop 03/26/19 at 20:59 Furosemide (Lasix) 20 mg BID DIURETICS PO Last administered on 03/04/19 05:50; Admin Dose 20 MG; Start 02/27/19 at 18:00 Spironolactone (Aldactone) 50 mg BID DIURETICS PO Last administered on 03/04/19 05:50; Admin Dose 50 MG; Start 02/27/19 at 18:00 Docusate Sodium (Colace) 200 mg BID PO Last administered on 03/04/19 08:41; Admin Dose 200 MG; Start 02/27/19 at 21:00 Bismuth Subsalicylate (Pepto-Bismol) 30 ml QID PO Last administered on 12:36; Admin Dose 30 ML; Start 02/27/19 at 21:00 Cefepime HCl 50 ml @ 100 mls/hr Q12 IVPB Last administered on 03/04/19 08:41; Admin Dose 100 MLS/HR; Start 03/01/19 at 13:00 Insulin Glargine (Lantus) 3 units DAILY@0930 SC Last administered on 03/04/19 08:39; Admin Dose 3 UNITS; Start 03/02/19 at 09:30 Ondansetron HCl (Zofran Inj) 4 mg Q4 PRN IV NAUSEA/VOMITING Last administered on 03/04/19 05:50; Admin Dose 4 MG; Start 03/04/19 at 03:30 Metoclopramide HCl (Reglan) 10 mg Q6H PRN IV NAUSEA Last administered on 03/04/19 03:22; Admin Dose 10 MG; Start 03/04/19 at 03:30 KIRK AREVALO MD Mar 04, 2019 14:34
--- NOTE | 2019-03-04 15:12 | PREAC ---
Date/Time of Note Date/Time of Note DATE: 03/04/19 TIME: 15:09 Anesthesia Eval and Record Evaluation Time Pre-Procedure Interview DATE: 03/04/19 TIME: 15:09 Age 59 Sex male NPO: 8 hrs Preoperative diagnosis Cirrhosis, Anemia Planned procedure EGD Past Medical History Past Medical History: Includes Cardio: HTN, Dyslipidemia, CAD Endo: Diabetes, Hyperthyroid Renal: Other (Hyponatremia) Hepatic: Cirrhosis Heme: Anemia, Thrombocytopenia, Other Psych: Depression Surgery & Anesthesia Issues No known issue Meds Anticoagulation: No Beta Jenni within 24 hr: Yes Active Scripts Insulin Glargine* (Lantus*) 100 Unit/Ml Soln, 15 UNIT SC DAILY, #14 VIAL Prov:[facility] 02/11/19 Insulin Aspart* (Novolog Insulin Pen*) 100 Unit/Ml Soln, 7 UNIT SC WITH MEALS, #7 VIAL Prov:[facility] 02/11/19 Sennosides* (Senna Lax*) 8.6 Mg Tablet, 2 TAB PO BID, #120 TAB Prov:[facility] 02/11/19 Clarithromycin* (Clarithromycin*) 500 Mg Tablet, 500 MG PO BID for 5 Days, #10 TAB Prov:[facility] 02/11/19 Amoxicillin* (Amoxicillin*) 500 Mg Cap, 1000 MG PO BID for 5 Days, #10 CAP Prov:[facility] 02/11/19 Methimazole* (Methimazole*) 10 Mg Tablet, 30 MG PO BID, #180 TAB 1 [facility] 02/11/19 Reported Medications Pantoprazole* (Pantoprazole*) 40 Mg Tablet.dr, 40 MG PO AC BREAKFAST, TAB 02/06/19 Simvastatin* (Zocor*) 20 Mg Tablet, 20 MG PO QHS, #30 TAB 01/16/19 Lisinopril* (Lisinopril*) 2.5 Mg Tablet, 2.5 MG PO DAILY, #30 TAB 01/16/19 Propranolol Hcl* (Propranolol Hcl*) 40 Mg Tablet, 80 MG PO TID, TAB 01/16/19 Current Medications IV Flush (NS 3 ml) 3 ml PER PROTOCOL IV ; Start 02/06/19 at 15:00 Acetaminophen (Tylenol Tab) 650 mg Q6H PRN PO .PAIN 1-3 OR TEMP Last administered on 03/03/19at 06:28; Admin Dose 650 MG; Start 02/06/19 at 15:00 Atorvastatin Calcium (Lipitor) 10 mg DAILY@21 PO Last administered on 03/03/19at 21:37; Admin Dose 10 MG; Start 02/06/19 at 21:00 Miscellaneous Information 1 ea NOTE XX ; Start 02/06/19 at 16:00 Glucose (Glutose) 15 gm Q15M PRN PO DECREASED GLUCOSE; Start 02/06/19 at 16:00 Glucose (Glutose) 22.5 gm Q15M PRN PO DECREASED GLUCOSE; Start 02/06/19 at 16:00 Dextrose (D50w Syringe) 25 ml Q15M PRN IV DECREASED GLUCOSE Last administered on 02/26/19at 17:21; Admin Dose 25 ML; Start 02/06/19 at 16:00 Dextrose (D50w Syringe) 50 ml Q15M PRN IV DECREASED GLUCOSE; Start 02/06/19 at 16:00 Glucagon (Glucagen) 1 mg Q15M PRN IM DECREASED GLUCOSE; Start 02/06/19 at 16:00 Glucose (Glutose) 15 gm Q15M PRN BUCCAL DECREASED GLUCOSE Last administered on 02/22/19at 23:24; Admin Dose 15 GM; Start 02/06/19 at 16:00 Pantoprazole (Protonix Tab) 40 mg BID@0600,1800 PO Last administered on 03/04/19at 05:50; Admin Dose 40 MG; Start 02/07/19 at 06:00 Miscellaneous Information (* Miscellaneous Pharmacy Order) Treatment of Hypoglycemia: 1.BG 51... Per protocol XX ; Start 02/08/19 at 09:00 Dextrose (D50w Syringe) 25 ml Q15M PRN IV .DECREASED GLUCOSE; Start 02/08/19 at 09:00 Dextrose (D50w Syringe) 50 ml Q15M PRN IV .DECREASED GLUCOSE; Start 02/08/19 at 09:00 Methimazole (Tapazole) 30 mg BID PO Last administered on 03/04/19at 08:43; Admin Dose 30 MG; Start 02/08/19 at 13:30 Heparin Sodium (Porcine) (Heparin (5000 Units/1ml)) 5,000 unit BID SC Last administered on 02/14/19 22:48; Admin Dose 5,000 UNIT; Start 02/11/19 at 09:00; Status Hold Acetaminophen/ Hydrocodone Bitart ([place] (5/325)) 1 tab Q6H PRN PO MODERATE PAIN LEVEL 4-6 Last administered on 02/23/19 14:08; Admin Dose 1 TAB; Start 02/12/19 at 09:00 Senna (Senokot) 2 tab BID PO Last administered on 03/04/19 08:43; Admin Dose 2 TAB; Start 02/16/19 at 21:00 Morphine Sulfate (morphine) 2 mg Q4H PRN IV SEVERE PAIN LEVEL 7-10 Last administered on 02/22/19 18:33; Admin Dose 2 MG; Start 02/22/19 at 09:00 Insulin Aspart (Novolog Insulin Pen) NOVOLOG *MILD* ALGORITHM WITH MEALS BEDTIME SC ; Start 02/23/19 at 11:50 Midodrine (Proamatine) 10 mg TID@,,17 PO Last administered on 03/04/19 12:36; Admin Dose 10 MG; Start 02/23/19 at 13:00 Insulin Aspart (Novolog Insulin Pen) 4 unit WITH MEALS SC Last administered on 03/04/19 12:07; Admin Dose 4 UNIT; Start 02/23/19 at 17:55 Ascorbic Acid (Vitamin C) 500 mg BID PO Last administered on 03/04/19 08:43; Admin Dose 500 MG; Start 02/24/19 at 21:00; Stop 03/26/19 at 20:59 Ferrous Sulfate (Ferrous Sulfate (Ec)) 325 mg BID PO Last administered on 03/04/19 08:43; Admin Dose 325 MG; Start 02/24/19 at 21:00; Stop 03/26/19 at 20:59 Furosemide (Lasix) 20 mg BID DIURETICS PO Last administered on 03/04/19 05:50; Admin Dose 20 MG; Start 02/27/19 at 18:00 Spironolactone (Aldactone) 50 mg BID DIURETICS PO Last administered on 03/04/19 05:50; Admin Dose 50 MG; Start 02/27/19 at 18:00 Docusate Sodium (Colace) 200 mg BID PO Last administered on 03/04/19 08:41; Admin Dose 200 MG; Start 02/27/19 at 21:00 Bismuth Subsalicylate (Pepto-Bismol) 30 ml QID PO Last administered on 03/04/19 12:36; Admin Dose 30 ML; Start 02/27/19 at 21:00 Cefepime HCl 50 ml @ 100 mls/hr Q12 IVPB Last administered on 03/04/19 08:41; Admin Dose 100 MLS/HR; Start 03/01/19 at 13:00 Insulin Glargine (Lantus) 3 units DAILY@0930 SC Last administered on 03/04/19 08:39; Admin Dose 3 UNITS; Start 03/02/19 at 09:30 Ondansetron HCl (Zofran Inj) 4 mg Q4 PRN IV NAUSEA/VOMITING Last administered on 03/04/19 05:50; Admin Dose 4 MG; Start 03/04/19 at 03:30 Metoclopramide HCl (Reglan) 10 mg Q6H PRN IV NAUSEA Last administered on 03/04/19 03:22; Admin Dose 10 MG; Start 03/04/19 at 03:30 Meds reviewed: Yes Allergies Coded Allergies: No Known Allergy (Unverified , 02/28/19) Allergies Reviewed: Yes Labs/Studies Labs Reviewed: Reviewed by anesthesiologist Result Diagram: 03/04/19 0746 03/03/19 0750 Laboratory Tests 03/04/19 07:46 test: N/A Studies: ECG (ST, PVC), CXR (Cardiopulmonary congestion) Pre-procedure Exam Last vitals Vital Signs Date Temp Pulse Resp B/P (MAP) Pulse Ox O2 O2 Flow FiO2 Time Delivery Rate 03/04/19 98.0 115 18 94/59 (71) 95 11:22 03/03/19 Nasal 2.0 20:00 Cannula Airway: Adequate mouth opening, Adequate thyromental dist Mallampati: Mallampati II Teeth: Normal Lung: Normal Heart: Normal ASA Physical Status ASA physical status: 3 Emergency: None Planned Anesthetic General/MAC: MAC Planned Pain Management Parenteral pain med Pre-operative Attestations Prior to commencing anesthesia and surgery, the patient was re-evaluated, there was verification of: *The patient's identity *The results of appropriate recent lab work and preoperative vital signs *The above evaluation not changing prior to induction *Anesthetic plan, risk benefits, alternative and complications discussed with patient/family; questions answered; patient/family understands, accepts and wishes to proceed. RICK CASAS MD Mar 04, 2019 15:12
[2019-03-04] MEDS ORDERED: EPHEDrine SULFATE 50 MG/5 ML SYG IV PRN (15:30)
[2019-03-04] MEDS ORDERED: LABETALOL HCL 20MG INJ IV PRN (15:30)
[2019-03-04] MEDS ORDERED: hydrALAzine 20 MG INJ IV PRN (15:30)
[2019-03-04] MEDS ORDERED: FENTAnyl 50 MCG/ML VIAL IV PRN (15:30)
[2019-03-04] MEDS ORDERED: morphine (1 MG/ML) 10ML SYRINGE IV PRN (15:30)
[2019-03-04] MEDS ORDERED: ALBUMIN HUMAN 5% 250 ML IV PRN (15:30)
--- NOTE | 2019-03-04 15:45 | HPN ---
Date/Time of Note Date/Time of Note DATE: 03/04/19 TIME: 15:45 Interval H&P Admission Note Pt. seen H&P reviewed: No system changes HANNY SHARP MD Mar 04, 2019 15:45
[2019-03-04] MEDS ORDERED: PROPOFOL 20 ML ONE (16:07)
[2019-03-04] MEDS ORDERED: PHENYLephrine (100 MCG/ML) 10ML SYG ONE (16:07)
--- NOTE | 2019-03-04 16:08 | PAC ---
Date/Time of Note Date/Time of Note DATE: 03/04/19 TIME: 16:07 Post-Anesthesia Notes Post-Anesthesia Note Last documented vital signs Vital Signs Date Temp Pulse Resp B/P (MAP) Pulse Ox O2 O2 Flow FiO2 Time Delivery Rate 03/04/19 107 16:05 03/04/19 97.9 99 27 96/58 (71) 100 face mask 8 L 16:04 03/03/19 2.0 20:00 Activity: WNL Respiratory function: WNL Cardiovascular function: WNL Mental status: Baseline Pain reasonably controlled: Yes Hydration appropriate: Yes Nausea/Vomiting absent: Yes RICK CASAS MD Mar 04, 2019 16:08
--- NOTE | 2019-03-04 17:12 | CONS ---
Assessment/Plan Assessment/Plan Hospital Course (Demo Recall) Recurrent fevers: Blood cultures negative and TTE without obvious vegetation. Low suspicion but will check MADDIE based on ID recs. Prior to MADDIE he should have an EGD with his diagnosis of cirrhosis and no prior EGD to eval for varices. CAD: coronary calcification on CT. No symptoms. Not a candidate for ASA or statin for primary prevention with cirrhosis, anemia, thrombocytopenia Hypotension: on midodrine. Likely intravascular depletion with low albumin and diuretics though still third spacing Liver cirrhosis Hyperthyroidism -MADDIE tomorrow 7:30 am assuming no significant varices or ok with GI -midodrine 10mg TID -lasix 20mg BID -aldactone 50mg BID Consultation Date/Type/Reason Admit Date/Time Feb 06, 2019 at 14:46 Initial Consult Date 03/03/19 Type of Consult Cardiology Requesting Provider: RODRIGUEZ DOTY Date/Time of Note DATE: 03/04/19 TIME: 17:07 24 HR Interval Summary Free Text/Dictation Had hypotension and sinus tachycardia overnight. Given albumin and midodrine with improvement. Currently getting an EGD Exam/Review of Systems Vital Signs Vitals Vital Signs Date Temp Pulse Resp B/P (MAP) Pulse Ox O2 O2 Flow FiO2 Time Delivery Rate 03/04/19 100 18 86/56 (66) 96 Room Air 16:50 03/04/19 2.0 16:48 03/04/19 98.2 16:20 Intake and Output 03/03/19 03/03/19 03/04/19 1515:00 23:00 07:00 IntakeIntake Total 650 ml 550 ml OutputOutput Total 500 ml 350 ml BalanceBalance 150 ml 200 ml Exam Exam pt in GI lab Labs Result Diagram: 03/04/19 0746 03/03/19 0750 Results 24hrs Laboratory Tests Test 03/03/19 18:37 03/03/19 21:35 03/04/19 07:46 03/04/19 08:26 Thyroid < 0.015 L Stimulating Hormone (TSH) Free Thyroxine 2.09 H Free 2.41 L Triiodothyronine (T3) pg/mL Bedside Glucose 96 109 White Blood Count 6.9 Red Blood Count 3.65 L Hemoglobin 8.8 L Hematocrit 28.1 L Mean Corpuscular 77.0 L Volume Mean Corpuscular 24.1 L Hemoglobin Mean Corpuscular 31.3 L Hemoglobin Concent Red Cell 22.8 H Distribution Width Platelet Count 112 #L Mean Platelet 10.0 Volume Immature 0.700 H Granulocytes % Neutrophils % Segmented 74 Neutrophils % (Manual) Band Neutrophils % 3 (Manual) Lymphocytes % Lymphocytes % 9 L (Manual) Reactive 4 H Lymphocytes % (Manual) Monocytes % Monocytes % 10 (Manual) Eosinophils % Basophils % Nucleated Red 0.0 Blood Cells % Immature 0.050 H Granulocytes # Neutrophils # Neutrophils # 5.1 (Manual) Band Neutrophils # 0.2 Lymphocytes 0.6 L (Manual) Lymphocytes # Reactive 0.2 H Lymphocytes # Monocytes # Monocytes # 0.6 (Manual) Eosinophils # Basophils # Nucleated Red Blood Cells # Platelet Estimate DECREASED Polychromasia 2+ Poikilocytosis 1+ Anisocytosis 2+ Microcytosis 2+ Ovalocytes 1+ Elliptocytes 1+ Prothrombin Time 16.9 H Prothrombin Time 1.3 Ratio INR International 1.36 Normalized Ratio Lactic Acid Level 3.3 *H Test 03/04/19 11:39 03/04/19 11:45 Lab Scanned Report REFERENCE LAB Bedside Glucose 120 Medications Medications Current Medications IV Flush (NS 3 ml) 3 ml PER PROTOCOL IV ; Start 02/06/19 at 15:00 Acetaminophen (Tylenol Tab) 650 mg Q6H PRN PO .PAIN 1-3 OR TEMP Last administered on 03/03/19at 06:28; Admin Dose 650 MG; Start 02/06/19 at 15:00 Atorvastatin Calcium (Lipitor) 10 mg DAILY@21 PO Last administered on 03/03/19at 21:37; Admin Dose 10 MG; Start 02/06/19 at 21:00 Miscellaneous Information 1 ea NOTE XX ; Start 02/06/19 at 16:00 Glucose (Glutose) 15 gm Q15M PRN PO DECREASED GLUCOSE; Start 02/06/19 at 16:00 Glucose (Glutose) 22.5 gm Q15M PRN PO DECREASED GLUCOSE; Start 02/06/19 at 16:00 Dextrose (D50w Syringe) 25 ml Q15M PRN IV DECREASED GLUCOSE Last administered on 02/26/19at 17:21; Admin Dose 25 ML; Start 02/06/19 at 16:00 Dextrose (D50w Syringe) 50 ml Q15M PRN IV DECREASED GLUCOSE; Start 02/06/19 at 16:00 Glucagon (Glucagen) 1 mg Q15M PRN IM DECREASED GLUCOSE; Start 02/06/19 at 16:00 Glucose (Glutose) 15 gm Q15M PRN BUCCAL DECREASED GLUCOSE Last administered on 02/22/19 23:24; Admin Dose 15 GM; Start 02/06/19 at 16:00 Pantoprazole (Protonix Tab) 40 mg BID@0600,1800 PO Last administered on 03/04/19 05:50; Admin Dose 40 MG; Start 02/07/19 at 06:00 Miscellaneous Information (* Miscellaneous Pharmacy Order) Treatment of Hypoglycemia: 1.BG 51... Per protocol XX ; Start 02/08/19 at 09:00 Dextrose (D50w Syringe) 25 ml Q15M PRN IV .DECREASED GLUCOSE; Start 02/08/19 at 09:00 Dextrose (D50w Syringe) 50 ml Q15M PRN IV .DECREASED GLUCOSE; Start 02/08/19 at 09:00 Methimazole (Tapazole) 30 mg BID PO Last administered on 03/04/19 08:43; Admin Dose 30 MG; Start 02/08/19 at 13:30 Heparin Sodium (Porcine) (Heparin (5000 Units/1ml)) 5,000 unit BID SC Last administered on 02/14/19 22:48; Admin Dose 5,000 UNIT; Start 02/11/19 at 09:00; Status Hold Acetaminophen/ Hydrocodone Bitart ([place] (5/325)) 1 tab Q6H PRN PO MODERATE PAIN LEVEL 4-6 Last administered on 02/23/19 14:08; Admin Dose 1 TAB; Start 02/12/19 at 09:00 Senna (Senokot) 2 tab BID PO Last administered on 03/04/19 08:43; Admin Dose 2 TAB; Start 02/16/19 at 21:00 Morphine Sulfate (morphine) 2 mg Q4H PRN IV SEVERE PAIN LEVEL 7-10 Last administered on 02/22/19 18:33; Admin Dose 2 MG; Start 02/22/19 at 09:00 Insulin Aspart (Novolog Insulin Pen) NOVOLOG *MILD* ALGORITHM WITH MEALS BEDTIME SC ; Start 02/23/19 at 11:50 Midodrine (Proamatine) 10 mg TID@09,13,17 PO Last administered on 03/04/19 12:36; Admin Dose 10 MG; Start 02/23/19 at 13:00 Insulin Aspart (Novolog Insulin Pen) 4 unit WITH MEALS SC Last administered on 03/04/19 12:07; Admin Dose 4 UNIT; Start 02/23/19 at 17:55 Ascorbic Acid (Vitamin C) 500 mg BID PO Last administered on 03/04/19 08:43; Admin Dose 500 MG; Start 02/24/19 at 21:00; Stop 03/26/19 at 20:59 Ferrous Sulfate (Ferrous Sulfate (Ec)) 325 mg BID PO Last administered on 03/04/19 08:43; Admin Dose 325 MG; Start 02/24/19 at 21:00; Stop 03/26/19 at 20:59 Furosemide (Lasix) 20 mg BID DIURETICS PO Last administered on 03/04/19 05:50; Admin Dose 20 MG; Start 02/27/19 at 18:00 Spironolactone (Aldactone) 50 mg BID DIURETICS PO Last administered on 9at 05:50; Admin Dose 50 MG; Start 02/27/19 at 18:00 Docusate Sodium (Colace) 200 mg BID PO Last administered on 03/04/19 08:41; Admin Dose 200 MG; Start 02/27/19 at 21:00 Bismuth Subsalicylate (Pepto-Bismol) 30 ml QID PO Last administered on 03/04/19 12:36; Admin Dose 30 ML; Start 02/27/19 at 21:00 Cefepime HCl 50 ml @ 100 mls/hr Q12 IVPB Last administered on 03/04/19 08:41; Admin Dose 100 MLS/HR; Start 03/01/19 at 13:00 Insulin Glargine (Lantus) 3 units DAILY@0930 SC Last administered on 03/04/19 08:39; Admin Dose 3 UNITS; Start 03/02/19 at 09:30 Ondansetron HCl (Zofran Inj) 4 mg Q4 PRN IV NAUSEA/VOMITING Last administered on 03/04/19 05:50; Admin Dose 4 MG; Start 03/04/19 at 03:30 Metoclopramide HCl (Reglan) 10 mg Q6H PRN IV NAUSEA Last administered on 4/30/19at 03:22; Admin Dose 10 MG; Start 03/04/19 at 03:30 Morphine Sulfate (morphine (REC)) 2 mg PACU ORDER PRN IV MILD PAIN 1-3; Start 03/04/19 at 15:30; Stop 03/04/19 at 20:00 Fentanyl (Sublimaze) 25 mcg PACU ORDER PRN IV MILD PAIN 1-3; Start 03/04/19 at 15:30; Stop 03/04/19 at 20:00 Ondansetron HCl (Zofran Inj) 4 mg PACU ORDER PRN IV NAUSEA/VOMITING; Start 03/04/19 at 15:30; Stop 03/04/19 at 20:00 Metoclopramide HCl (Reglan) 10 mg PACU ORDER PRN IV NAUSEA/VOMITING; Start 03/04/19 at 15:30; Stop 03/04/19 at 20:00 Labetalol HCl (Labetalol) 5 mg PACU ORDER PRN IV HIGH BLOOD PRESSURE; Start 03/04/19 at 15:30; Stop 03/04/19 at 20:00 Hydralazine HCl (Apresoline) 5 mg PACU ORDER PRN IV HIGH BLOOD PRESSURE; Start 03/04/19 at 15:30; Stop 03/04/19 at 20:00 Ephedrine Sulfate 5 mg PACU ORDER PRN IV BLOOD PRESSURE SUPPORT; Start 03/04/19 at 15:30; Stop 03/04/19 at 20:00 Albumin Human 250 ml @ 750 mls/hr PACU ORDER PRN IV BP SUPPORT; Start 03/04/19 at 15:30; Stop 03/04/19 at 20:00 EVIE TRAORE Mar 04, 2019 17:12
--- NOTE | 2019-03-04 17:15 | CONS ---
Assessment/Plan Assessment/Plan Problems: (1) Graves' disease with exophthalmos Status: Chronic Comment: Patient's repeat lab tests indicate significant improvement towards baseline. He is still hyperthyroid however with this degree of thyrotoxicosis it cannot be the cause of the fever of unknown origin. Unless we postulate that the medications for the thyroid are causing this which again seems to hold less water since he is having problems when he was not taking the medications then there is another answer for his FUO. Consultation Date/Type/Reason Admit Date/Time Feb 06, 2019 at 14:46 Initial Consult Date 02/06/19 Type of Consult Endocrine Reason for Consultation Thyrotoxicosis; fever of unknown origin; cirrhosis toward history of alcohol usage Requesting Provider: RODRIGUEZ DOTY Date/Time of Note DATE: 03/04/19 TIME: 17:12 24 HR Interval Summary Free Text/Dictation No immediate changes Detailed Summary Endocrine: no complaints (Review of systems for thyrotoxicosis is improved) Exam/Review of Systems Exam Vitals Vital Signs Date Temp Pulse Resp B/P (MAP) Pulse Ox O2 O2 Flow FiO2 Time Delivery Rate 03/04/19 100 18 86/56 (66) 96 Room Air 16:50 03/04/19 2.0 16:48 03/04/19 98.2 16:20 Intake and Output 03/03/19 03/03/19 03/04/19 1515:00 23:00 07:00 IntakeIntake Total 650 ml 550 ml OutputOutput Total 500 ml 350 ml BalanceBalance 150 ml 200 ml Exam No change in exam Results Result Diagram: 03/04/19 0746 03/03/19 0750 Results 24hrs Laboratory Tests Test 03/03/19 18:37 03/03/19 21:35 03/04/19 07:46 03/04/19 08:26 Thyroid < 0.015 L Stimulating Hormone (TSH) Free Thyroxine 2.09 H Free 2.41 L Triiodothyronine (T3) pg/mL Bedside Glucose 96 109 White Blood Count 6.9 Red Blood Count 3.65 L Hemoglobin 8.8 L Hematocrit 28.1 L Mean Corpuscular 77.0 L Volume Mean Corpuscular 24.1 L Hemoglobin Mean Corpuscular 31.3 L Hemoglobin Concent Red Cell 22.8 H Distribution Width Platelet Count 112 #L Mean Platelet 10.0 Volume Immature 0.700 H Granulocytes % Neutrophils % Segmented 74 Neutrophils % (Manual) Band Neutrophils % 3 (Manual) Lymphocytes % Lymphocytes % 9 L (Manual) Reactive 4 H Lymphocytes % (Manual) Monocytes % Monocytes % 10 (Manual) Eosinophils % Basophils % Nucleated Red 0.0 Blood Cells % Immature 0.050 H Granulocytes # Neutrophils # Neutrophils # 5.1 (Manual) Band Neutrophils # 0.2 Lymphocytes 0.6 L (Manual) Lymphocytes # Reactive 0.2 H Lymphocytes # Monocytes # Monocytes # 0.6 (Manual) Eosinophils # Basophils # Nucleated Red Blood Cells # Platelet Estimate DECREASED Polychromasia 2+ Poikilocytosis 1+ Anisocytosis 2+ Microcytosis 2+ Ovalocytes 1+ Elliptocytes 1+ Prothrombin Time 16.9 H Prothrombin Time 1.3 Ratio INR International 1.36 Normalized Ratio Lactic Acid Level 3.3 *H Test 03/04/19 11:39 03/04/19 11:45 Lab Scanned Report REFERENCE LAB Bedside Glucose 120 Medications Medication Current Medications IV Flush (NS 3 ml) 3 ml PER PROTOCOL IV ; Start 02/06/19 at 15:00 Acetaminophen (Tylenol Tab) 650 mg Q6H PRN PO .PAIN 1-3 OR TEMP Last administered on 03/03/19at 06:28; Admin Dose 650 MG; Start 02/06/19 at 15:00 Atorvastatin Calcium (Lipitor) 10 mg DAILY@21 PO Last administered on 03/03/19at 21:37; Admin Dose 10 MG; Start 02/06/19 at 21:00 Miscellaneous Information 1 ea NOTE XX ; Start 02/06/19 at 16:00 Glucose (Glutose) 15 gm Q15M PRN PO DECREASED GLUCOSE; Start 02/06/19 at 16:00 Glucose (Glutose) 22.5 gm Q15M PRN PO DECREASED GLUCOSE; Start 02/06/19 at 16:00 Dextrose (D50w Syringe) 25 ml Q15M PRN IV DECREASED GLUCOSE Last administered on 02/26/19at 17:21; Admin Dose 25 ML; Start 02/06/19 at 16:00 Dextrose (D50w Syringe) 50 ml Q15M PRN IV DECREASED GLUCOSE; Start 02/06/19 at 16:00 Glucagon (Glucagen) 1 mg Q15M PRN IM DECREASED GLUCOSE; Start 02/06/19 at 16:00 Glucose (Glutose) 15 gm Q15M PRN BUCCAL DECREASED GLUCOSE Last administered on 02/22/19 23:24; Admin Dose 15 GM; Start 02/06/19 at 16:00 Pantoprazole (Protonix Tab) 40 mg BID@0600,1800 PO Last administered on 03/04/19 05:50; Admin Dose 40 MG; Start 02/07/19 at 06:00 Miscellaneous Information (* Miscellaneous Pharmacy Order) Treatment of Hypogl ycemia: 1.BG 51... Per protocol XX ; Start 02/08/19 at 09:00 Dextrose (D50w Syringe) 25 ml Q15M PRN IV .DECREASED GLUCOSE; Start 02/08/19 at 09:00 Dextrose (D50w Syringe) 50 ml Q15M PRN IV .DECREASED GLUCOSE; Start 02/08/19 at 09:00 Methimazole (Tapazole) 30 mg BID PO Last administered on 03/04/19 08:43; Admin Dose 30 MG; Start 02/08/19 at 13:30 Heparin Sodium (Porcine) (Heparin (5000 Units/1ml)) 5,000 unit BID SC Last administered on 02/14/19 22:48; Admin Dose 5,000 UNIT; Start 02/11/19 at 09:00; Status Hold Acetaminophen/ Hydrocodone Bitart ([place] (5/325)) 1 tab Q6H PRN PO MODERATE PAIN LEVEL 4-6 Last administered on 02/23/19 14:08; Admin Dose 1 TAB; Start 02/12/19 at 09:00 Senna (Senokot) 2 tab BID PO Last administered on 03/04/19 08:43; Admin Dose 2 TAB; Start 02/16/19 at 21:00 Morphine Sulfate (morphine) 2 mg Q4H PRN IV SEVERE PAIN LEVEL 7-10 Last administered on 02/22/19 18:33; Admin Dose 2 MG; Start 02/22/19 at 09:00 Insulin Aspart (Novolog Insulin Pen) NOVOLOG *MILD* ALGORITHM WITH MEALS BEDTIME SC ; Start 02/23/19 at 11:50 Midodrine (Proamatine) 10 mg TID@09,13,17 PO Last administered on 03/04/19 12:36; Admin Dose 10 MG; Start 02/23/19 at 13:00 Insulin Aspart (Novolog Insulin Pen) 4 unit WITH MEALS SC Last administered on 03/04/19 12:07; Admin Dose 4 UNIT; Start 02/23/19 at 17:55 Ascorbic Acid (Vitamin C) 500 mg BID PO Last administered on 03/04/19 08:43; Admin Dose 500 MG; Start 02/24/19 at 21:00; Stop 03/26/19 at 20:59 Ferrous Sulfate (Ferrous Sulfate (Ec)) 325 mg BID PO Last administered on 03/04/19 08:43; Admin Dose 325 MG; Start 02/24/19 at 21:00; Stop 03/26/19 at 20:59 Furosemide (Lasix) 20 mg BID DIURETICS PO Last administered on 03/04/19 05:50; Admin Dose 20 MG; Start 02/27/19 at 18:00 Spironolactone (Aldactone) 50 mg BID DIURETICS PO Last administered on 03/04/19 05:50; Admin Dose 50 MG; Start 02/27/19 at 18:00 Docusate Sodium (Colace) 200 mg BID PO Last administered on 03/04/19 08:41; Admin Dose 200 MG; Start 02/27/19 at 21:00 Bismuth Subsalicylate (Pepto-Bismol) 30 ml QID PO Last administered on 03/04/19 12:36; Admin Dose 30 ML; Start 02/27/19 at 21:00 Cefepime HCl 50 ml @ 100 mls/hr Q12 IVPB Last administered on 03/04/19 08:41; Admin Dose 100 MLS/HR; Start 03/01/19 at 13:00 Insulin Glargine (Lantus) 3 units DAILY@0930 SC Last administered on 03/04/19 08:39; Admin Dose 3 UNITS; Start 03/02/19 at 09:30 Ondansetron HCl (Zofran Inj) 4 mg Q4 PRN IV NAUSEA/VOMITING Last administered on 03/04/19 05:50; Admin Dose 4 MG; Start 03/04/19 at 03:30 Metoclopramide HCl (Reglan) 10 mg Q6H PRN IV NAUSEA Last administered on 03/04/19 03:22; Admin Dose 10 MG; Start 03/04/19 at 03:30 Morphine Sulfate (morphine (REC)) 2 mg PACU ORDER PRN IV MILD PAIN 1-3; Start 03/04/19 at 15:30; Stop 03/04/19 at 20:00 Fentanyl (Sublimaze) 25 mcg PACU ORDER PRN IV MILD PAIN 1-3; Start 03/04/19 at 15:30; Stop 03/04/19 at 20:00 Ondansetron HCl (Zofran Inj) 4 mg PACU ORDER PRN IV NAUSEA/VOMITING; Start 03/04/19 at 15:30; Stop 03/04/19 at 20:00 Metoclopramide HCl (Reglan) 10 mg PACU ORDER PRN IV NAUSEA/VOMITING; Start 03/04/19 at 15:30; Stop 03/04/19 at 20:00 Labetalol HCl (Labetalol) 5 mg PACU ORDER PRN IV HIGH BLOOD PRESSURE; Start 03/04/19 at 15:30; Stop 03/04/19 at 20:00 Hydralazine HCl (Apresoline) 5 mg PACU ORDER PRN IV HIGH BLOOD PRESSURE; Start 03/04/19 at 15:30; Stop 03/04/19 at 20:00 Ephedrine Sulfate 5 mg PACU ORDER PRN IV BLOOD PRESSURE SUPPORT; Start 03/04/19 at 15:30; Stop 03/04/19 at 20:00 Albumin Human 250 ml @ 750 mls/hr PACU ORDER PRN IV BP SUPPORT; Start 03/04/19 at 15:30; Stop 03/04/19 at 20:00 ANA GARCIA MD Mar 04, 2019 17:15
[2019-03-04] MEDS: ATORVASTATIN 10 MG TAB PO SCH (21:28)
[2019-03-05] VITALS (18 sets, daily range): BP systolic 72–121; BP diastolic 58–75; PULSE 57–113; RESP 16–25
[2019-03-05] MEDS: METHIMAZOLE 5 MG TAB PO SCH ×3 (00:16→21:22)
[2019-03-05] MEDS: PANTOPRAZOLE (EC) 40 MG TAB PO SCH ×2 (05:29→17:57)
[2019-03-05] MEDS: FUROSEMIDE 20 MG TAB PO SCH ×2 (05:29→21:23)
--- NOTE | 2019-03-05 07:33 | PREAC ---
Date/Time of Note Date/Time of Note DATE: 03/05/19 TIME: 07:29 Anesthesia Eval and Record Evaluation Time Pre-Procedure Interview DATE: 03/05/19 TIME: 07:29 Age 59 Sex male NPO: 8 hrs Preoperative diagnosis Ro vegetation Planned procedure MADDIE Past Medical History Past Medical History: Includes Cardio: HTN, Dyslipidemia Endo: Diabetes Surgery & Anesthesia Issues No known issue Meds Anticoagulation: Yes Beta Jenni within 24 hr: Yes Active Scripts Insulin Glargine* (Lantus*) 100 Unit/Ml Soln, 15 UNIT SC DAILY, #14 [facility]19 Insulin Aspart* (Novolog Insulin Pen*) 100 Unit/Ml Soln, 7 UNIT SC WITH MEALS, #7 VIAL Prov:[facility] 02/11/19 Sennosides* (Senna Lax*) 8.6 Mg Tablet, 2 TAB PO BID, #120 TAB Prov:[facility] 02/11/19 Clarithromycin* (Clarithromycin*) 500 Mg Tablet, 500 MG PO BID for 5 Days, #10 TAB [facility] 02/11/19 Amoxicillin* (Amoxicillin*) 500 Mg Cap, 1000 MG PO BID for 5 Days, #10 CAP Prov:[facility] 02/11/19 Methimazole* (Methimazole*) 10 Mg Tablet, 30 MG PO BID, #180 TAB 1 [facility] 02/11/19 Reported Medications Pantoprazole* (Pantoprazole*) 40 Mg Tablet.dr, 40 MG PO AC BREAKFAST, TAB 02/06/19 Simvastatin* (Zocor*) 20 Mg Tablet, 20 MG PO QHS, #30 TAB 01/16/19 Lisinopril* (Lisinopril*) 2.5 Mg Tablet, 2.5 MG PO DAILY, #30 TAB 01/16/19 Propranolol Hcl* (Propranolol Hcl*) 40 Mg Tablet, 80 MG PO TID, TAB 01/16/19 Current Medications IV Flush (NS 3 ml) 3 ml PER PROTOCOL IV ; Start 02/06/19 at 15:00 Acetaminophen (Tylenol Tab) 650 mg Q6H PRN PO .PAIN 1-3 OR TEMP Last administered on 03/03/19at 06:28; Admin Dose 650 MG; Start 02/06/19 at 15:00 Atorvastatin Calcium (Lipitor) 10 mg DAILY@21 PO Last administered on 03/04/19at 21:28; Admin Dose 10 MG; Start 02/06/19 at 21:00 Miscellaneous Information 1 ea NOTE XX ; Start 02/06/19 at 16:00 Glucose (Glutose) 15 gm Q15M PRN PO DECREASED GLUCOSE; Start 02/06/19 at 16:00 Glucose (Glutose) 22.5 gm Q15M PRN PO DECREASED GLUCOSE; Start 02/06/19 at 16:00 Dextrose (D50w Syringe) 25 ml Q15M PRN IV DECREASED GLUCOSE Last administered on 02/26/19at 17:21; Admin Dose 25 ML; Start 02/06/19 at 16:00 Dextrose (D50w Syringe) 50 ml Q15M PRN IV DECREASED GLUCOSE; Start 02/06/19 at 16:00 Glucagon (Glucagen) 1 mg Q15M PRN IM DECREASED GLUCOSE; Start 02/06/19 at 16:00 Glucose (Glutose) 15 gm Q15M PRN BUCCAL DECREASED GLUCOSE Last administered on 02/22/19at 23:24; Admin Dose 15 GM; Start 02/06/19 at 16:00 Pantoprazole (Protonix Tab) 40 mg BID@0600,1800 PO Last administered on 03/05/19at 05:29; Admin Dose 40 MG; Start 02/07/19 at 06:00 Miscellaneous Information (* Miscellaneous Pharmacy Order) Treatment of Hypoglycemia: 1.BG 51... Per protocol XX ; Start 02/08/19 at 09:00 Dextrose (D50w Syringe) 25 ml Q15M PRN IV .DECREASED GLUCOSE; Start 02/08/19 at 09:00 Dextrose (D50w Syringe) 50 ml Q15M PRN IV .DECREASED GLUCOSE; Start 02/08/19 at 09:00 Methimazole (Tapazole) 30 mg BID PO Last administered on 03/05/19at 00:16; Admin Dose 30 MG; Start 02/08/19 at 13:30 Heparin Sodium (Porcine) (Heparin (5000 Units/1ml)) 5,000 unit BID SC Last administered on 02/14/19at 22:48; Admin Dose 5,000 UNIT; Start 02/11/19 at 09:00; Status Hold Acetaminophen/ Hydrocodone Bitart ([place] (5/325)) 1 tab Q6H PRN PO MODERATE PAIN LEVEL 4-6 Last administered on 02/23/19 14:08; Admin Dose 1 TAB; Start 02/12/19 at 09:00 Senna (Senokot) 2 tab BID PO Last administered on 03/04/19 21:28; Admin Dose 2 TAB; Start 02/16/19 at 21:00 Morphine Sulfate (morphine) 2 mg Q4H PRN IV SEVERE PAIN LEVEL 7-10 Last admini stered on 02/22/19 18:33; Admin Dose 2 MG; Start 02/22/19 at 09:00 Insulin Aspart (Novolog Insulin Pen) NOVOLOG *MILD* ALGORITHM WITH MEALS BEDTIME SC ; Start 02/23/19 at 11:50 Midodrine (Proamatine) 10 mg TID@09,13,17 PO Last administered on 03/04/19 18:25; Admin Dose 10 MG; Start 02/23/19 at 13:00 Ascorbic Acid (Vitamin C) 500 mg BID PO Last administered on 03/04/19 21:28; Admin Dose 500 MG; Start 02/24/19 at 21:00; Stop 03/26/19 at 20:59 Ferrous Sulfate (Ferrous Sulfate (Ec)) 325 mg BID PO Last administered on 03/04/19 21:28; Admin Dose 325 MG; Start 02/24/19 at 21:00; Stop 03/26/19 at 20:59 Furosemide (Lasix) 20 mg BID DIURETICS PO Last administered on 03/05/19 05:29; Admin Dose 20 MG; Start 02/27/19 at 18:00 Spironolactone (Aldactone) 50 mg BID DIURETICS PO Last administered on 03/04/19 18:07; Admin Dose 50 MG; Start 02/27/19 at 18:00 Docusate Sodium (Colace) 200 mg BID PO Last administered on 03/04/19 21:28; Admin Dose 200 MG; Start 02/27/19 at 21:00 Bismuth Subsalicylate (Pepto-Bismol) 30 ml QID PO Last administered on 03/04/19 21:28; Admin Dose 30 ML; Start 02/27/19 at 21:00 Cefepime HCl 50 ml @ 100 mls/hr Q12 IVPB Last administered on 03/04/19at 21:28; Admin Dose 100 MLS/HR; Start 03/01/19 at 13:00 Insulin Glargine (Lantus) 3 units DAILY@0930 SC Last administered on 03/04/19at 08:39; Admin Dose 3 UNITS; Start 03/02/19 at 09:30 Ondansetron HCl (Zofran Inj) 4 mg Q4 PRN IV NAUSEA/VOMITING Last administered on 03/04/19at 05:50; Admin Dose 4 MG; Start 03/04/19 at 03:30 Metoclopramide HCl (Reglan) 10 mg Q6H PRN IV NAUSEA Last administered on 03/04/19at 03:22; Admin Dose 10 MG; Start 03/04/19 at 03:30 Insulin Aspart (Novolog Insulin Pen) 3 unit WITH MEALS SC Last administered on 03/04/19at 18:12; Admin Dose 3 UNIT; Start 03/04/19 at 17:55 Meds reviewed: Yes Allergies Coded Allergies: No Known Allergy (Unverified , 02/28/19) Allergies Reviewed: Yes Labs/Studies Labs Reviewed: Reviewed by anesthesiologist Result Diagram: 03/04/19 0746 03/05/19 0558 Laboratory Tests 03/04/19 07:46 03/05/19 05:58 test: N/A Studies: ECG Pre-procedure Exam Last vitals Vital Signs Date Temp Pulse Resp B/P (MAP) Pulse Ox O2 O2 Flow FiO2 Time Delivery Rate 03/05/19 108 04:00 03/05/19 98.3 18 105/61 96 04:00 (76) 03/04/19 Nasal 20:30 Cannula 03/04/19 2.0 20:00 Airway: Adequate mouth opening, Adequate thyromental dist Mallampati: Mallampati III Teeth: Normal Lung: Normal Heart: Normal ASA Physical Status ASA physical status: 3 Emergency: None Planned Anesthetic General/MAC: MAC Planned Pain Management Parenteral pain med Pre-operative Attestations Prior to commencing anesthesia and surgery, the patient was re-evaluated, there was verification of: *The patient's identity *The results of appropriate recent lab work and preoperative vital signs *The above evaluation not changing prior to induction *Anesthetic plan, risk benefits, alternative and complications discussed with patient/family; questions answered; patient/family understands, accepts and wi shes to proceed. MARIO LARKIN MD March 05, 2019 07:33
[2019-03-05] MEDS ORDERED: PROPOFOL 40 ML ONE (07:35)
[2019-03-05] MEDS ORDERED: LIDOCAINE 2% (SDV) 5 ML INJ ONE (07:35)
[2019-03-05] MEDS ORDERED: PHENYLephrine (100 MCG/ML) 10ML SYG ONE (07:51)
[2019-03-05] MEDS: INSULIN ASPART [NOVOLOG] 3 ML PEN SC SCH ×7 (07:55→21:00)
--- NOTE | 2019-03-05 08:08 | CONS ---
Assessment/Plan Assessment/Plan Hospital Course (Demo Recall) Recurrent fevers: no vegetation on MADDIE 03/05/19. CAD: coronary calcification on CT. No symptoms. Not a candidate for ASA or statin for primary prevention with cirrhosis, anemia, thrombocytopenia Hypotension: on midodrine. Likely intravascular depletion with low albumin and diuretics though still third spacing Liver cirrhosis: no varices by EGD 03/04 Hyperthyroidism -decrease to lasix 20mg daily -midodrine 10mg TID -aldactone 50mg BID Consultation Date/Type/Reason Admit Date/Time Feb 06, 2019 at 14:46 Initial Consult Date 03/03/19 Type of Consult Cardiology Requesting Provider: RODRIGUEZ DOTY Date/Time of Note DATE: 03/05/19 TIME: 08:06 24 HR Interval Summary Free Text/Dictation s/p EGD, no varices s/p MADDIE, no endocarditis No complaints. HR and BP overall better Exam/Review of Systems Vital Signs Vitals Vital Signs Date Temp Pulse Resp B/P (MAP) Pulse Ox O2 O2 Flow FiO2 Time Delivery Rate 03/05/19 100 08:00 03/05/19 98.3 18 105/61 96 04:00 (76) 03/04/19 Nasal 20:30 Cannula 03/04/19 2.0 20:00 Intake and Output 03/04/19 03/04/19 03/05/19 1515:00 23:00 07:00 IntakeIntake Total 370 ml 300 ml OutputOutput Total 300 ml 200 ml BalanceBalance 70 ml 100 ml Exam Constitutional: alert, oriented Psych: no complaints, nl mood/affect Head: normocephalic, atraumatic Neck: No jvd Respiratory: diminished breath sounds; No clear to auscultation Cardiovascular: No regular rate and rhythm (tachycardic, low 100s), No edema Gastrointestinal: soft, non-tender; No distended Neurological: nl mental status, nl speech Labs Result Diagram: 03/04/19 0746 03/05/19 0558 Results 24hrs Laboratory Tests Test 03/04/19 08:26 03/04/19 11:39 03/04/19 11:45 03/04/19 17:44 Bedside Glucose 109 120 68 L Lab Scanned Report REFERENCE LAB Test 03/04/19 19:52 03/04/19 21:34 03/05/19 03:38 03/05/19 05:58 Bedside Glucose 108 103 115 Sodium Level 128 L Potassium Level 4.4 Chloride Level 94 L Carbon Dioxide 29 Level Anion Gap 5 Blood Urea 11 Nitrogen Creatinine 0.82 Est Glomerular > 60 Filtrat Rate mL/min Glucose Level 102 Calcium Level 9.1 Phosphorus Level 3.4 Magnesium Level 1.7 Medications Medications Current Medications IV Flush (NS 3 ml) 3 ml PER PROTOCOL IV ; Start 02/06/19 at 15:00 Acetaminophen (Tylenol Tab) 650 mg Q6H PRN PO .PAIN 1-3 OR TEMP Last administered on 03/03/19at 06:28; Admin Dose 650 MG; Start 02/06/19 at 15:00 Atorvastatin Calcium (Lipitor) 10 mg DAILY@21 PO Last administered on 03/04/19at 21:28; Admin Dose 10 MG; Start 02/06/19 at 21:00 Miscellaneous Information 1 ea NOTE XX ; Start 02/06/19 at 16:00 Glucose (Glutose) 15 gm Q15M PRN PO DECREASED GLUCOSE; Start 02/06/19 at 16:00 Glucose (Glutose) 22.5 gm Q15M PRN PO DECREASED GLUCOSE; Start 02/06/19 at 16:00 Dextrose (D50w Syringe) 25 ml Q15M PRN IV DECREASED GLUCOSE Last administered on 02/26/19at 17:21; Admin Dose 25 ML; Start 02/06/19 at 16:00 Dextrose (D50w Syringe) 50 ml Q15M PRN IV DECREASED GLUCOSE; Start 02/06/19 at 16:00 Glucagon (Glucagen) 1 mg Q15M PRN IM DECREASED GLUCOSE; Start 02/06/19 at 16:00 Glucose (Glutose) 15 gm Q15M PRN BUCCAL DECREASED GLUCOSE Last administered on 02/22/19at 23:24; Admin Dose 15 GM; Start 02/06/19 at 16:00 Pantoprazole (Protonix Tab) 40 mg BID@0600,1800 PO Last administered on 03/05/19at 05:29; Admin Dose 40 MG; Start 02/07/19 at 06:00 Miscellaneous Information (* Miscellaneous Pharmacy Order) Treatment of H ypoglycemia: 1.BG 51... Per protocol XX ; Start 02/08/19 at 09:00 Dextrose (D50w Syringe) 25 ml Q15M PRN IV .DECREASED GLUCOSE; Start 02/08/19 at 09:00 Dextrose (D50w Syringe) 50 ml Q15M PRN IV .DECREASED GLUCOSE; Start 02/08/19 at 09:00 Methimazole (Tapazole) 30 mg BID PO Last administered on 03/05/19 00:16; Admin Dose 30 MG; Start 02/08/19 at 13:30 Heparin Sodium (Porcine) (Heparin (5000 Units/1ml)) 5,000 unit BID SC Last administered on 02/14/19 22:48; Admin Dose 5,000 UNIT; Start 02/11/19 at 09:00; Status Hold Acetaminophen/ Hydrocodone Bitart ([place] (5/325)) 1 tab Q6H PRN PO MODERATE P AIN LEVEL 4-6 Last administered on 02/23/19 14:08; Admin Dose 1 TAB; Start 02/12/19 at 09:00 Senna (Senokot) 2 tab BID PO Last administered on 03/04/19 21:28; Admin Dose 2 TAB; Start 02/16/19 at 21:00 Morphine Sulfate (morphine) 2 mg Q4H PRN IV SEVERE PAIN LEVEL 7-10 Last administered on 02/22/19 18:33; Admin Dose 2 MG; Start 02/22/19 at 09:00 Insulin Aspart (Novolog Insulin Pen) NOVOLOG *MILD* ALGORITHM WITH MEALS BEDTIME SC ; Start 02/23/19 at 11:50 Midodrine (Proamatine) 10 mg TID@09,13,17 PO Last administered on 03/04/19 18:25; Admin Dose 10 MG; Start 02/23/19 at 13:00 Ascorbic Acid (Vitamin C) 500 mg BID PO Last administered on 03/04/19 21:28; Admin Dose 500 MG; Start 02/24/19 at 21:00; Stop 03/26/19 at 20:59 Ferrous Sulfate (Ferrous Sulfate (Ec)) 325 mg BID PO Last administered on 03/04/19 21:28; Admin Dose 325 MG; Start 02/24/19 at 21:00; Stop 03/26/19 at 20:59 Furosemide (Lasix) 20 mg BID DIURETICS PO Last administered on 03/05/19 05:29; Admin Dose 20 MG; Start 02/27/19 at 18:00 Spironolactone (Aldactone) 50 mg BID DIURETICS PO Last administered on 03/04/19 18:07; Admin Dose 50 MG; Start 02/27/19 at 18:00 Docusate Sodium (Colace) 200 mg BID PO Last administered on 03/04/19 21:28; Admin Dose 200 MG; Start 02/27/19 at 21:00 Bismuth Subsalicylate (Pepto-Bismol) 30 ml QID PO Last administered on 03/04/19 21:28; Admin Dose 30 ML; Start 02/27/19 at 21:00 Cefepime HCl 50 ml @ 100 mls/hr Q12 IVPB Last administered on 03/04/19 21:28; Admin Dose 100 MLS/HR; Start 03/01/19 at 13:00 Insulin Glargine (Lantus) 3 units DAILY@0930 SC Last administered on 03/04/19 08:39; Admin Dose 3 UNITS; Start 03/02/19 at 09:30 Ondansetron HCl (Zofran Inj) 4 mg Q4 PRN IV NAUSEA/VOMITING Last administered on 03/04/19 05:50; Admin Dose 4 MG; Start 03/04/19 at 03:30 Metoclopramide HCl (Reglan) 10 mg Q6H PRN IV NAUSEA Last administered on 03/04/19 03:22; Admin Dose 10 MG; Start 03/04/19 at 03:30 Insulin Aspart (Novolog Insulin Pen) 3 unit WITH MEALS SC Last administered on 03/04/19 18:12; Admin Dose 3 UNIT; Start 03/04/19 at 17:55 EVIE TRAORE March 05, 2019 08:08
--- NOTE | 2019-03-05 08:09 | PAC ---
Date/Time of Note Date/Time of Note DATE: 03/05/19 TIME: 08:08 Post-Anesthesia Notes Post-Anesthesia Note Last documented vital signs Vital Signs Date Temp Pulse Resp B/P (MAP) Pulse Ox O2 O2 Flow FiO2 Time Delivery Rate 03/05/19 108 04:00 03/05/19 98.3 18 105/61 96 04:00 (76) 03/04/19 Nasal 20:30 Cannula 03/04/19 2.0 20:00 Activity: WNL Respiratory function: WNL Cardiovascular function: WNL Mental status: Baseline Pain reasonably controlled: Yes Hydration appropriate: Yes Nausea/Vomiting absent: Yes Comments BP:98/56, P:94, Spo2:100%, T:98,8 MARIO LARKIN MD March 05, 2019 08:09
--- NOTE | 2019-03-05 08:14 | RADRPT ---
Transesophageal Echo Report Patient Name: Mark GALINDOent ID: [id number] : 1960 (59y 1m)Study Date: 03/05/2019 7:14:34 AM Gender: MAccession #: [id number] Tech: Goran Zamorano RDCS Location: [facility] ([facility]3] Ref.Physician: EVIE LI Height(Cm): BSA: Weight(Kg): Quality: GoodAccount #: Procedures: Transesophageal Echo Report: Transesophageal echocardiogram was performed. PREP: Patient received pre-procedure education; informed consent, baseline vital signs, and focused history and physical were obtained. SEDATION: Oropharangeal anesthesia was achieved using 2-3 sprays of Hurricane topical anesthesia. Systemic sedation was achieved. ESOPHAGEAL INTUBATION: After suitable sedation, the probe was passed. Continuous pulse oximetry, electrocardiographic, and blood pressure monitoring were maintained throughout the procedure. Standard views were obtained in the transgastric, mid-esophageal, and basal planes at approximately 0, 30, 90, and 120 degrees. In addition, a normal saline study was performed. No immediate MADDIE complications noted. Indications: Endocarditis. Description of Procedure: Dr. Evie Li MD. Informed consent was obtained from the patient in writing. The risks and benefits of the procedure were explained in detail to the patient, including but not limited to the risk of aspiration, dysphagia, and esophageal perforation. After a thorough discussion of these risks and benefits, the patient's surrogate agreed to proceed. A complete transesophageal echocardiogram study was performed. Additional evaluation with color flow Doppler and limited spectral Doppler was performed. Continuous HR, BP, ECG, and O2 sat monitoring was performed during the procedure. The patient received pre-procedural education. Baseline vital signs and a focused history and physical were obtained. The MADDIE study was then performed under deep sedation with IV propofol provided by the anesthesiology service. After suitable sedation, the probe was passed without difficulty. Continuous pulse oximetry, electrocardiographic monitoring, and blood pressure monitoring were maintained throughout the procedure. No complications were noted and the patient was recovered without difficulty. Findings: Left Ventricle: Normal left ventricular systolic function. Normal left ventricular size. Ejection fraction is measured at 60 %. Right Ventricle: Normal right ventricular size. Normal right ventricular systolic function. Left Atrium: The left atrium is normal in size. Right Atrium: The right atrium is normal in size. Atrial Septum: Normal atrial septum. No shunt via color doppler. Mitral Valve: Normal appearance of the mitral valve. Mild mitral valve regurgitation. Aortic Valve: Normal appearance and function of the aortic valve. No aortic regurgitation. Tricuspid Valve: Normal appearance and function of the tricuspid valve with trace physiologic regurgitation. There is mild tricuspid regurgitation. Pulmonic Valve: Normal pulmonic valve appearance and function. There is mild pulmonic regurgitation. Pericardium: Normal pericardium with no significant pericardial effusion. Aorta: Normal aortic root. Atrial Appendage: Normal atrial appendage no thrombi or echogenic structure seen. Conclusions: No Vegetation, masses, or thrombi seen. Normal valvular function. Normal left ventricular systolic function. Normal left ventricular size. Ejection fraction is measured at 60 %. Electronically Signed By: Evie Li 2019-03-05 08:13:20 PDT
[2019-03-05] MEDS ORDERED: ONDANSETRON 4 MG INJ IV PRN (08:30)
[2019-03-05] MEDS ORDERED: DIPHENHYDRAMINE 50 MG INJ IV PRN (08:30)
[2019-03-05] MEDS ORDERED: FENTAnyl 50 MCG/ML VIAL IV PRN (08:30)
[2019-03-05] MEDS ORDERED: EPHEDrine SULFATE 50 MG/5 ML SYG IV PRN (08:30)
[2019-03-05] MEDS ORDERED: METOCLOPRAMIDE 10 MG INJ IV PRN (08:30)
[2019-03-05] MEDS ORDERED: HYDROmorphONE 1 MG/5 ML IV SYRINGE IV PRN ×2 (08:30)
[2019-03-05] MEDS ORDERED: FUROSEMIDE 20 MG TAB PO SCH (09:00)
[2019-03-05] MEDS: CEFEPIME 1GM/50 ML (PMX) 50 ML IVPB SCH ×2 (09:07→21:21)
[2019-03-05] MEDS: SENNA TAB PO SCH ×2 (09:10→21:21)
[2019-03-05] MEDS: DOCUSATE SODIUM 100 MG CAP PO SCH ×2 (09:11→21:21)
[2019-03-05] MEDS: FERROUS SULFATE (EC) 325 MG TAB PO SCH ×2 (09:11→21:22)
[2019-03-05] MEDS: ASCORBIC ACID 500 MG TAB PO SCH ×2 (09:11→21:22)
[2019-03-05] MEDS: MIDODRINE 5 MG TAB PO SCH ×3 (09:11→17:57)
[2019-03-05] MEDS: BISMUTH SUBSALICYLATE 240 ML BTL PO SCH ×4 (09:12→21:31)
--- NOTE | 2019-03-05 09:13 | PN ---
DATE: 03/05/2019 SUBJECTIVE: The patient is scheduled for MADDIE today. The patient continues to have episodes of low g rade fevers, hypertension. No other events noted. OBJECTIVE: VITAL SIGNS: Blood pressure is 95/60, pulse 100, temperature 98.8. HEENT: Head is normocephalic. NECK: Supple. HEART: Regular rate. LUNGS: Show diminished breath sounds at the base. ABDOMEN: Soft, nontender to palpation. No rebound or guarding. EXTREMITIES: Negative for clubbing, cyanosis, no edema. DERMATOLOGIC: No rashes. MUSCULOSKELETAL: No joint effusion. NEUROLOGIC: No change in exam. MEDICATIONS: Reviewed. LABORATORY DATA: Reviewed. ASSESSMENT AND PLAN: 1. Hyponatremia. Etiology is secondary to cirrhosis. The patient's sodium levels remain low but st able. Continue free water restriction, continue diuretic therapy as tolerated. Monitor closely. 2. Volume overload secondary to cirrhosis and third spacing. The patient's blood pressures remain l ow, diuretic therapy has been adjusted. Continue to monitor. 3. Cirrhosis. Continue current medical management. Follow up with GI. 4. Graves' disease. Continue current medical management. 5. Systemic inflammatory response syndrome, etiology is unclear. Workup is ongoing. Followup with Infectious Disease. The patient is status post transesophageal echo, no vegetation seen. The patien t is with normal ejection fraction. 6. Lactic acidosis, likely due to underlying cirrhosis, questionable systemic inflammatory response syndrome. Continue to monitor. 7. History of arrhythmia. Continue medical management. 8. Hypomagnesemia. Continue to monitor and replete. 9. Pleural effusion, status post thoracentesis. Dictated By: DIANNA SAWYER DO NR/NTS Conf#: [id number] DID#: [id number] CC: EVIE TRAORE MD; KIRK AREVALO MD; PURVI QUIGLEY MD;*EndCC*
[2019-03-05] MEDS: INSULIN GLARGINE [LANTus] (100 UNITS/ML) SYG SC SCH (09:14)
--- NOTE | 2019-03-05 13:01 | CONS ---
Assessment/Plan Assessment/Plan Problems: (1) Hyperthyroidism Status: Acute Comment: Symptoms are improved. Blood tests are also improved. Repeat blood tests in 1 week. Continue current treatment. Consultation Date/Type/Reason Admit Date/Time Feb 06, 2019 at 14:46 Initial Consult Date 02/06/19 Type of Consult Endocrine Reason for Consultation Hyperthyroidism Requesting Provider: RODRIGUEZ DOTY Date/Time of Note DATE: 03/05/19 TIME: 13:00 24 HR Interval Summary Free Text/Dictation No new symptoms Exam/Review of Systems Exam Vitals Vital Signs Date Temp Pulse Resp B/P (MAP) Pulse Ox O2 O2 Flow FiO2 Time Delivery Rate 03/05/19 102 12:04 03/05/19 97.7 18 121/75 99 Nasal 3.0 11:06 (90) Cannula Intake and Output 03/04/19 03/04/19 03/05/19 1515:00 23:00 07:00 IntakeIntake Total 370 ml 300 ml OutputOutput Total 300 ml 200 ml BalanceBalance 70 ml 100 ml Exam No change in examination Results Result Diagram: 03/04/19 0746 03/05/19 0558 Results 24hrs Laboratory Tests Test 03/04/19 17:44 03/04/19 19:52 03/04/19 21:34 03/05/19 03:38 Bedside Glucose 68 L 108 103 115 Test 03/05/19 05:58 03/05/19 08:22 03/05/19 09:06 03/05/19 12:25 Sodium Level 128 L Potassium Level 4.4 Chloride Level 94 L Carbon Dioxide Level 29 Anion Gap 5 Blood Urea Nitrogen 11 Creatinine 0.82 Est Glomerular > 60 Filtrat Rate mL/min Glucose Level 102 Calcium Level 9.1 Phosphorus Level 3.4 Magnesium Level 1.7 Bedside Glucose 107 131 128 Medications Medication Current Medications IV Flush (NS 3 ml) 3 ml PER PROTOCOL IV ; Start 02/06/19 at 15:00 Acetaminophen (Tylenol Tab) 650 mg Q6H PRN PO .PAIN 1-3 OR TEMP Last administered on 03/03/19at 06:28; Admin Dose 650 MG; Start 02/06/19 at 15:00 Atorvastatin Calcium (Lipitor) 10 mg DAILY@21 PO Last administered on 03/04/19at 21:28; Admin Dose 10 MG; Start 02/06/19 at 21:00 Miscellaneous Information 1 ea NOTE XX ; Start 02/06/19 at 16:00 Glucose (Glutose) 15 gm Q15M PRN PO DECREASED GLUCOSE; Start 02/06/19 at 16:00 Glucose (Glutose) 22.5 gm Q15M PRN PO DECREASED GLUCOSE; Start 02/06/19 at 16:00 Dextrose (D50w Syringe) 25 ml Q15M PRN IV DECREASED GLUCOSE Last administered on 02/26/19at 17:21; Admin Dose 25 ML; Start 02/06/19 at 16:00 Dextrose (D50w Syringe) 50 ml Q15M PRN IV DECREASED GLUCOSE; Start 02/06/19 at 16:00 Glucagon (Glucagen) 1 mg Q15M PRN IM DECREASED GLUCOSE; Start 02/06/19 at 16:00 Glucose (Glutose) 15 gm Q15M PRN BUCCAL DECREASED GLUCOSE Last administered on 02/22/19at 23:24; Admin Dose 15 GM; Start 02/06/19 at 16:00 Pantoprazole (Protonix Tab) 40 mg BID@0600,1800 PO Last administered on 03/05/19at 05:29; Admin Dose 40 MG; Start 02/07/19 at 06:00 Miscellaneous Information (* Miscellaneous Pharmacy Order) Treatment of Hypoglycemia: 1.BG 51... Per protocol XX ; Start 02/08/19 at 09:00 Dextrose (D50w Syringe) 25 ml Q15M PRN IV .DECREASED GLUCOSE; Start 02/08/19 at 09:00 Dextrose (D50w Syringe) 50 ml Q15M PRN IV .DECREASED GLUCOSE; Start 02/08/19 at 09:00 Methimazole (Tapazole) 30 mg BID PO Last administered on 03/05/19at 09:10; Admin Dose 30 MG; Start 02/08/19 at 13:30 Heparin Sodium (Porcine) (Heparin (5000 Units/1ml)) 5,000 unit BID SC Last administered on 02/14/19at 22:48; Admin Dose 5,000 UNIT; Start 02/11/19 at 09:00; Status Hold Acetaminophen/ Hydrocodone Bitart (Zenia (5/325)) 1 tab Q6H PRN PO MODERATE PAIN LEVEL 4-6 Last administered on 02/23/19at 14:08; Admin Dose 1 TAB; Start 02/12/19 at 09:00 Senna (Senokot) 2 tab BID PO Last administered on 03/05/19 09:10; Admin Dose 2 TAB; Start 02/16/19 at 21:00 Morphine Sulfate (morphine) 2 mg Q4H PRN IV SEVERE PAIN LEVEL 7-10 Last administered on 02/22/19 18:33; Admin Dose 2 MG; Start 02/22/19 at 09:00 Insulin Aspart (Novolog Insulin Pen) NOVOLOG *MILD* ALGORITHM WITH MEALS BEDTIME SC ; Start 02/23/19 at 11:50 Midodrine (Proamatine) 10 mg TID@,13,17 PO Last administered on 03/05/19 12:45; Admin Dose 10 MG; Start 02/23/19 at 13:00 Ascorbic Acid (Vitamin C) 500 mg BID PO Last administered on 03/05/19 09:11; Admin Dose 500 MG; Start 02/24/19 at 21:00; Stop 03/26/19 at 20:59 Ferrous Sulfate (Ferrous Sulfate (Ec)) 325 mg BID PO Last administered on 03/05/19 09:11; Admin Dose 325 MG; Start 02/24/19 at 21:00; Stop 03/26/19 at 20:59 Spironolactone (Aldactone) 50 mg BID DIURETICS PO Last administered on 03/04/19 18:07; Admin Dose 50 MG; Start 02/27/19 at 18:00 Docusate Sodium (Colace) 200 mg BID PO Last administered on 03/05/19 09:11; Admin Dose 200 MG; Start 02/27/19 at 21:00 Bismuth Subsalicylate (Pepto-Bismol) 30 ml QID PO Last administered on 03/05/19 12:44; Admin Dose 30 ML; Start 02/27/19 at 21:00 Cefepime HCl 50 ml @ 100 mls/hr Q12 IVPB Last administered on 03/05/19 09:07; Admin Dose 100 MLS/HR; Start 03/01/19 at 13:00 Insulin Glargine (Lantus) 3 units DAILY@0930 SC Last administered on 03/05/19 09:14; Admin Dose 3 UNITS; Start 03/02/19 at 09:30 Ondansetron HCl (Zofran Inj) 4 mg Q4 PRN IV NAUSEA/VOMITING Last administered on 03/04/19at 05:50; Admin Dose 4 MG; Start 03/04/19 at 03:30 Metoclopramide HCl (Reglan) 10 mg Q6H PRN IV NAUSEA Last administered on 03/04/19at 03:22; Admin Dose 10 MG; Start 03/04/19 at 03:30 Insulin Aspart (Novolog Insulin Pen) 3 unit WITH MEALS SC Last administered on 03/05/19at 12:51; Admin Dose 3 UNIT; Start 03/04/19 at 17:55 Furosemide (Lasix) 20 mg DAILY PO Last administered on 03/05/19at 09:17; Admin Dose 20 MG; Start 03/05/19 at 09:00; Stop 03/05/19 at 16:00 Hydromorphone HCl (Dilaudid) 0.2 mg PACU PRN IV MILD PAIN 1-3; Start 03/05/19 at 08:30; Stop 03/05/19 at 16:00 Hydromorphone HCl (Dilaudid) 0.4 mg PACU PRN IV MOD PAIN 4-6; Start 03/05/19 at 08:30; Stop 03/05/19 at 16:00 Fentanyl (Sublimaze) 25 mcg PACU ORDER PRN IV MILD PAIN 1-3; Start 03/05/19 at 08:30; Stop 03/05/19 at 16:00 Ondansetron HCl (Zofran Inj) 4 mg PACU ORDER PRN IV NAUSEA/VOMITING; Start 03/05/19 at 08:30; Stop 03/05/19 at 16:00 Metoclopramide HCl (Reglan) 10 mg PACU ORDER PRN IV NAUSEA/VOMITING; Start 03/05/19 at 08:30; Stop 03/05/19 at 16:00 Ephedrine Sulfate 5 mg PACU ORDER PRN IV BLOOD PRESSURE SUPPORT; Start 03/05/19 at 08:30; Stop 03/05/19 at 16:00 Diphenhydramine HCl (Benadryl) 25 mg PACU ORDER PRN IV .PRURITUS; Start 03/05/19 at 08:30; Stop 03/05/19 at 16:00 ANA GARCIA MD March 05, 2019 13:01
--- NOTE | 2019-03-05 13:09 | CONS ---
Consult Date/Type/Reason Admit Date/Time Feb 06, 2019 at 14:46 Initial Consult Date 03/03/19 Type of Consultation: Rheumatology Requesting Provider: RODRIGUEZ DOTY Date/Time of Note DATE: 03/05/19 TIME: 12:52 Subjective Had EGD and MADDIE. No new complaints. Objective Vitals Vital Signs Date Temp Pulse Resp B/P (MAP) Pulse Ox O2 O2 Flow FiO2 Time Delivery Rate 03/05/19 102 12:04 03/05/19 97.7 18 121/75 99 Nasal 3.0 11:06 (90) Cannula Intake and Output 03/04/19 03/04/19 03/05/19 1515:00 23:00 07:00 IntakeIntake Total 370 ml 300 ml OutputOutput Total 300 ml 200 ml BalanceBalance 70 ml 100 ml Exam GENERAL: NAD at present. alert. SKIN: Without acute lesions. HEENT: Without acute oral or ocular lesions. NECK: Without definite masses noted. Supple. CHEST: Clear to auscultation. HEART: Regular rate and rhythm. Proximal and distal pulses are full. ABDOMEN: Soft without masses or tenderness noted. EXTREMITIES: Joints with good range of motion without synovitis. NEUROLOGIC: Grossly intact. Results/Medications Result Diagram: 03/04/19 0746 03/05/19 0558 Results 24 hrs Laboratory Tests Test 03/04/19 17:44 03/04/19 19:52 03/04/19 21:34 03/05/19 03:38 Bedside Glucose 68 L 108 103 115 Test 03/05/19 05:58 03/05/19 08:22 03/05/19 09:06 03/05/19 12:25 Sodium Level 128 L Potassium Level 4.4 Chloride Level 94 L Carbon Dioxide Level 29 Anion Gap 5 Blood Urea Nitrogen 11 Creatinine 0.82 Est Glomerular > 60 Filtrat Rate mL/min Glucose Level 102 Calcium Level 9.1 Phosphorus Level 3.4 Magnesium Level 1.7 Bedside Glucose 107 131 128 Home Meds Active Scripts Insulin Glargine* (Lantus*) 100 Unit/Ml Soln, 15 UNIT SC DAILY, #14 VIAL Prov:YOLI ZAMORANO. 02/11/19 Insulin Aspart* (Novolog Insulin Pen*) 100 Unit/Ml Soln, 7 UNIT SC WITH MEALS, #7 VIAL Prov:YOLI ZAMORANO M. 02/11/19 Sennosides* (Senna Lax*) 8.6 Mg Tablet, 2 TAB PO BID, #120 TAB Prov:YOLI ZAMORANO. 02/11/19 Clarithromycin* (Clarithromycin*) 500 Mg Tablet, 500 MG PO BID for 5 Days, #10 TAB Prov:YOLI ZAMORANO . 02/11/19 Amoxicillin* (Amoxicillin*) 500 Mg Cap, 1000 MG PO BID for 5 Days, #10 CAP Prov:YOLI ZAMORANO . 02/11/19 Methimazole* (Methimazole*) 10 Mg Tablet, 30 MG PO BID, #180 TAB 1 Refill Prov:YOLI ZAMORANO 02/11/19 Reported Medications Pantoprazole* (Pantoprazole*) 40 Mg Tablet.dr, 40 MG PO AC BREAKFAST, TAB 02/06/19 Simvastatin* (Zocor*) 20 Mg Tablet, 20 MG PO QHS, #30 TAB 01/16/19 Lisinopril* (Lisinopril*) 2.5 Mg Tablet, 2.5 MG PO DAILY, #30 TAB 01/16/19 Propranolol Hcl* (Propranolol Hcl*) 40 Mg Tablet, 80 MG PO TID, TAB 01/16/19 Medications Current Medications IV Flush (NS 3 ml) 3 ml PER PROTOCOL IV ; Start 02/06/19 at 15:00 Acetaminophen (Tylenol Tab) 650 mg Q6H PRN PO .PAIN 1-3 OR TEMP Last administered on 03/03/19at 06:28; Admin Dose 650 MG; Start 02/06/19 at 15:00 Atorvastatin Calcium (Lipitor) 10 mg DAILY@21 PO Last administered on 03/04/19at 21:28; Admin Dose 10 MG; Start 02/06/19 at 21:00 Miscellaneous Information 1 ea NOTE XX ; Start 02/06/19 at 16:00 Glucose (Glutose) 15 gm Q15M PRN PO DECREASED GLUCOSE; Start 02/06/19 at 16:00 Glucose (Glutose) 22.5 gm Q15M PRN PO DECREASED GLUCOSE; Start 02/06/19 at 16:00 Dextrose (D50w Syringe) 25 ml Q15M PRN IV DECREASED GLUCOSE Last administered on 02/26/19at 17:21; Admin Dose 25 ML; Start 02/06/19 at 16:00 Dextrose (D50w Syringe) 50 ml Q15M PRN IV DECREASED GLUCOSE; Start 02/06/19 at 16:00 Glucagon (Glucagen) 1 mg Q15M PRN IM DECREASED GLUCOSE; Start 02/06/19 at 16:00 Glucose (Glutose) 15 gm Q15M PRN BUCCAL DECREASED GLUCOSE Last administered on 02/22/19at 23:24; Admin Dose 15 GM; Start 02/06/19 at 16:00 Pantoprazole (Protonix Tab) 40 mg BID@0600,1800 PO Last administered on 03/05/19at 05:29; Admin Dose 40 MG; Start 02/07/19 at 06:00 Miscellaneous Information (* Miscellaneous Pharmacy Order) Treatment of Hypoglycemia: 1.BG 51... Per protocol XX ; Start 02/08/19 at 09:00 Dextrose (D50w Syringe) 25 ml Q15M PRN IV .DECREASED GLUCOSE; Start 02/08/19 at 09:00 Dextrose (D50w Syringe) 50 ml Q15M PRN IV .DECREASED GLUCOSE; Start 02/08/19 at 09:00 Methimazole (Tapazole) 30 mg BID PO Last administered on 03/05/19 09:10; Admin Dose 30 MG; Start 02/08/19 at 13:30 Heparin Sodium (Porcine) (Heparin (5000 Units/1ml)) 5,000 unit BID SC Last administered on 02/14/19at 22:48; Admin Dose 5,000 UNIT; Start 02/11/19 at 09:00; Status Hold Acetaminophen/ Hydrocodone Bitart (Shock (5/325)) 1 tab Q6H PRN PO MODERATE PAIN LEVEL 4-6 Last administered on 02/23/19at 14:08; Admin Dose 1 TAB; Start 02/12/19 at 09:00 Senna (Senokot) 2 tab BID PO Last administered on 03/05/19 09:10; Admin Dose 2 TAB; Start 02/16/19 at 21:00 Morphine Sulfate (morphine) 2 mg Q4H PRN IV SEVERE PAIN LEVEL 7-10 Last administered on 02/22/19at 18:33; Admin Dose 2 MG; Start 02/22/19 at 09:00 Insulin Aspart (Novolog Insulin Pen) NOVOLOG *MILD* ALGORITHM WITH MEALS BEDTIME SC ; Start 02/23/19 at 11:50 Midodrine (Proamatine) 10 mg TID@,,17 PO Last administered on 03/05/19 12:45; Admin Dose 10 MG; Start 02/23/19 at 13:00 Ascorbic Acid (Vitamin C) 500 mg BID PO Last administered on 03/05/19 09:11; Admin Dose 500 MG; Start 02/24/19 at 21:00; Stop 03/26/19 at 20:59 Ferrous Sulfate (Ferrous Sulfate (Ec)) 325 mg BID PO Last administered on 03/05/19 09:11; Admin Dose 325 MG; Start 02/24/19 at 21:00; Stop 03/26/19 at 20:59 Spironolactone (Aldactone) 50 mg BID DIURETICS PO Last administered on 18:07; Admin Dose 50 MG; Start 02/27/19 at 18:00 Docusate Sodium (Colace) 200 mg BID PO Last administered on 03/05/19 09:11; Admin Dose 200 MG; Start 02/27/19 at 21:00 Bismuth Subsalicylate (Pepto-Bismol) 30 ml QID PO Last administered on 03/05/19 12:44; Admin Dose 30 ML; Start 02/27/19 at 21:00 Cefepime HCl 50 ml @ 100 mls/hr Q12 IVPB Last administered on 03/05/19 09:07; Admin Dose 100 MLS/HR; Start 03/01/19 at 13:00 Insulin Glargine (Lantus) 3 units DAILY@0930 SC Last administered on 03/05/19 09:14; Admin Dose 3 UNITS; Start 03/02/19 at 09:30 Ondansetron HCl (Zofran Inj) 4 mg Q4 PRN IV NAUSEA/VOMITING Last administered on 03/04/19 05:50; Admin Dose 4 MG; Start 03/04/19 at 03:30 Metoclopramide HCl (Reglan) 10 mg Q6H PRN IV NAUSEA Last administered on 03/04/19 03:22; Admin Dose 10 MG; Start 03/04/19 at 03:30 Insulin Aspart (Novolog Insulin Pen) 3 unit WITH MEALS SC Last administered on 5/1/19at 12:51; Admin Dose 3 UNIT; Start 03/04/19 at 17:55 Furosemide (Lasix) 20 mg DAILY PO Last administered on 03/05/19at 09:17; Admin Dose 20 MG; Start 03/05/19 at 09:00; Stop 03/05/19 at 16:00 Hydromorphone HCl (Dilaudid) 0.2 mg PACU PRN IV MILD PAIN 1-3; Start 03/05/19 at 08:30; Stop 03/05/19 at 16:00 Hydromorphone HCl (Dilaudid) 0.4 mg PACU PRN IV MOD PAIN 4-6; Start 03/05/19 at 08:30; Stop 03/05/19 at 16:00 Fentanyl (Sublimaze) 25 mcg PACU ORDER PRN IV MILD PAIN 1-3; Start 03/05/19 at 08:30; Stop 03/05/19 at 16:00 Ondansetron HCl (Zofran Inj) 4 mg PACU ORDER PRN IV NAUSEA/VOMITING; Start 03/05/19 at 08:30; Stop 03/05/19 at 16:00 Metoclopramide HCl (Reglan) 10 mg PACU ORDER PRN IV NAUSEA/VOMITING; Start 03/05/19 at 08:30; Stop 03/05/19 at 16:00 Ephedrine Sulfate 5 mg PACU ORDER PRN IV BLOOD PRESSURE SUPPORT; Start 03/05/19 at 08:30; Stop 03/05/19 at 16:00 Diphenhydramine HCl (Benadryl) 25 mg PACU ORDER PRN IV .PRURITUS; Start 03/05/19 at 08:30; Stop 03/05/19 at 16:00 Assessment/Plan Assessment/Plan (Daily) ASSESSMENT: 1. Fever of unknown origin, along with marked fatigue of unclear etiology. Infection workup until now has been basically negative. MADDIE negative for vegetations.. The patient has a negative MATI and rheumatoid factor,and ANCA panel also negative. There are abnormalities in Karyotype evaluation an unclear significance to me at present. 2. Hyperthyroidism. 3. Status post epididymitis. 4. Positive QuantiFERON Gold a few months ago with negative repeat and no evidence of active tuberculosis at present. 5. Cirrhosis. 6. Iron deficiency anemia and possibly related to bone marrow suppression as well, unclear etiology 7. Leukopenia and thrombocytopenia, likely due to cirrhosis. RECOMMENDATIONS: 1. Would consider empiric prednisone at 20 mg daily initially. I discussed with Endo and ID. Several ID studies still pending, that may be available soon. Will wait to start steroids until those results return. I discussed steroids with family, including patient's daughter. LISSETT WEST MD March 05, 2019 13:09
--- NOTE | 2019-03-05 13:25 | PN ---
Date/Time of Note Date/Time of Note DATE: 03/05/19 TIME: 13:24 Assessment/Plan VTE Prophylaxis Risk score (from Nsg)>0 risk: 6 SCD applied (from Nsg): Yes Pharmacological prophylaxis: heparin Lines/Catheters IV Catheter Type (from Nrsg): Saline Lock Urinary Cath still in place: No Assessment/Plan Hospital Course EXAM: Appears comfortable Tachy, regular Thyromegaly Mild proprtosis CTAB Soft nt nd Testicular edema resolving 59 yo male with hyperthyroidism, hyponatremia, and pancytopenias with FUO/SIRS Fluid overload: - Continue diuretics Cirrhosis: - EGD pending - Serologic workup pending. No major etoh history FUO/SIRS: - Abx per ID - Unclear source. Has not resolved with abx. Extensive imaging negative for malignancy or infection. Bone marrow biopsy negative. WBC scan negative previously - MADDIE negative for vegetation - Vasculitis workup per rheumatology Hyperthyroid: - Off of anti-thyroidal meds per endocrine in anticipation of ablation as outpatient Tachycardia 2/2 hyperthyroid: - Metoprolol titration Cytopenias: - Flow cytometry suggested mild atypia, bone marrow biopsy wnl. LDH very elevated of unclear significance DMII: - Basal/bolus insulin Hyponatremia: - Chronic from cirrhosis - Started on salt tabs, FW restrition H Pylori infection: - s/p 3x therapy per ID Discharge plan: To home when stable Result Diagram: 03/04/19 0746 03/05/19 0558 Results 24hrs Laboratory Tests Test 03/04/19 17:44 03/04/19 19:52 03/04/19 21:34 03/05/19 03:38 Bedside Glucose 68 L 108 103 115 Test 03/05/19 05:58 03/05/19 08:22 03/05/19 09:06 03/05/19 12:25 Sodium Level 128 L Potassium Level 4.4 Chloride Level 94 L Carbon Dioxide Level 29 Anion Gap 5 Blood Urea Nitrogen 11 Creatinine 0.82 Est Glomerular > 60 Filtrat Rate mL/min Glucose Level 102 Calcium Level 9.1 Phosphorus Level 3.4 Magnesium Level 1.7 Bedside Glucose 107 131 128 Subjective 24 Hr Interval Summary Free Text/Dictation MADDIE negative for vegetation EGD negative for varices XR showing worsening pulmonary congestion Exam/Review of Systems Exam Vitals Vital Signs Date Temp Pulse Resp B/P (MAP) Pulse Ox O2 O2 Flow FiO2 Time Delivery Rate 03/05/19 102 12:04 03/05/19 97.7 18 121/75 99 Nasal 3.0 11:06 (90) Cannula Intake and Output 03/04/19 03/04/19 03/05/19 1515:00 23:00 07:00 IntakeIntake Total 370 ml 300 ml OutputOutput Total 300 ml 200 ml BalanceBalance 70 ml 100 ml Results Results 24hrs Laboratory Tests Test 03/04/19 17:44 03/04/19 19:52 03/04/19 21:34 03/05/19 03:38 Bedside Glucose 68 L 108 103 115 Test 03/05/19 05:58 03/05/19 08:22 03/05/19 09:06 03/05/19 12:25 Sodium Level 128 L Potassium Level 4.4 Chloride Level 94 L Carbon Dioxide Level 29 Anion Gap 5 Blood Urea Nitrogen 11 Creatinine 0.82 Est Glomerular > 60 Filtrat Rate mL/min Glucose Level 102 Calcium Level 9.1 Phosphorus Level 3.4 Magnesium Level 1.7 Bedside Glucose 107 131 128 Medications Medication Current Medications IV Flush (NS 3 ml) 3 ml PER PROTOCOL IV ; Start 02/06/19 at 15:00 Acetaminophen (Tylenol Tab) 650 mg Q6H PRN PO .PAIN 1-3 OR TEMP Last administered on 03/03/19at 06:28; Admin Dose 650 MG; Start 02/06/19 at 15:00 Atorvastatin Calcium (Lipitor) 10 mg DAILY@21 PO Last administered on 03/04/19at 21:28; Admin Dose 10 MG; Start 02/06/19 at 21:00 Miscellaneous Information 1 ea NOTE XX ; Start 02/06/19 at 16:00 Glucose (Glutose) 15 gm Q15M PRN PO DECREASED GLUCOSE; Start 02/06/19 at 16:00 Glucose (Glutose) 22.5 gm Q15M PRN PO DECREASED GLUCOSE; Start 02/06/19 at 16:00 Dextrose (D50w Syringe) 25 ml Q15M PRN IV DECREASED GLUCOSE Last administered on 02/26/19at 17:21; Admin Dose 25 ML; Start 02/06/19 at 16:00 Dextrose (D50w Syringe) 50 ml Q15M PRN IV DECREASED GLUCOSE; Start 02/06/19 at 16:00 Glucagon (Glucagen) 1 mg Q15M PRN IM DECREASED GLUCOSE; Start 02/06/19 at 16:00 Glucose (Glutose) 15 gm Q15M PRN BUCCAL DECREASED GLUCOSE Last administered on 02/22/19at 23:24; Admin Dose 15 GM; Start 02/06/19 at 16:00 Pantoprazole (Protonix Tab) 40 mg BID@0600,1800 PO Last administered on 03/05/19 05:29; Admin Dose 40 MG; Start 02/07/19 at 06:00 Miscellaneous Information (* Miscellaneous Pharmacy Order) Treatment of Hypoglycemia: 1.BG 51... Per protocol XX ; Start 02/08/19 at 09:00 Dextrose (D50w Syringe) 25 ml Q15M PRN IV .DECREASED GLUCOSE; Start 02/08/19 at 09:00 Dextrose (D50w Syringe) 50 ml Q15M PRN IV .DECREASED GLUCOSE; Start 02/08/19 at 09:00 Methimazole (Tapazole) 30 mg BID PO Last administered on 03/05/19 09:10; Admin Dose 30 MG; Start 02/08/19 at 13:30 Heparin Sodium (Porcine) (Heparin (5000 Units/1ml)) 5,000 unit BID SC Last administered on 02/14/19 22:48; Admin Dose 5,000 UNIT; Start 02/11/19 at 09:00; Status Hold Acetaminophen/ Hydrocodone Bitart ([place] (5/325)) 1 tab Q6H PRN PO MODERATE PAIN LEVEL 4-6 Last administered on 02/23/19 14:08; Admin Dose 1 TAB; Start 02/12/19 at 09:00 Senna (Senokot) 2 tab BID PO Last administered on 03/05/19 09:10; Admin Dose 2 TAB; Start 02/16/19 at 21:00 Morphine Sulfate (morphine) 2 mg Q4H PRN IV SEVERE PAIN LEVEL 7-10 Last administered on 02/22/19 18:33; Admin Dose 2 MG; Start 02/22/19 at 09:00 Insulin Aspart (Novolog Insulin Pen) NOVOLOG *MILD* ALGORITHM WITH MEALS BEDTIME SC ; Start 02/23/19 at 11:50 Midodrine (Proamatine) 10 mg TID@,13,17 PO Last administered on 03/05/19 12:45; Admin Dose 10 MG; Start 02/23/19 at 13:00 Ascorbic Acid (Vitamin C) 500 mg BID PO Last administered on 03/05/19 09:11; Admin Dose 500 MG; Start 02/24/19 at 21:00; Stop 03/26/19 at 20:59 Ferrous Sulfate (Ferrous Sulfate (Ec)) 325 mg BID PO Last administered on 03/05/19 09:11; Admin Dose 325 MG; Start 02/24/19 at 21:00; Stop 03/26/19 at 20:59 Spironolactone (Aldactone) 50 mg BID DIURETICS PO Last administered on 03/04/19 18:07; Admin Dose 50 MG; Start 02/27/19 at 18:00 Docusate Sodium (Colace) 200 mg BID PO Last administered on 03/05/19 09:11; Admin Dose 200 MG; Start 02/27/19 at 21:00 Bismuth Subsalicylate (Pepto-Bismol) 30 ml QID PO Last administered on 03/05/19 12:44; Admin Dose 30 ML; Start 02/27/19 at 21:00 Cefepime HCl 50 ml @ 100 mls/hr Q12 IVPB Last administered on 03/05/19 09:07; Admin Dose 100 MLS/HR; Start 03/01/19 at 13:00 Insulin Glargine (Lantus) 3 units DAILY@0930 SC Last administered on 03/05/19 09:14; Admin Dose 3 UNITS; Start 03/02/19 at 09:30 Ondansetron HCl (Zofran Inj) 4 mg Q4 PRN IV NAUSEA/VOMITING Last administered on 03/04/19 05:50; Admin Dose 4 MG; Start 03/04/19 at 03:30 Metoclopramide HCl (Reglan) 10 mg Q6H PRN IV NAUSEA Last administered on 03/04/19 03:22; Admin Dose 10 MG; Start 03/04/19 at 03:30 Insulin Aspart (Novolog Insulin Pen) 3 unit WITH MEALS SC Last administered on 03/05/19 12:51; Admin Dose 3 UNIT; Start 03/04/19 at 17:55 Furosemide (Lasix) 20 mg DAILY PO Last administered on 03/05/19 09:17; Admin Dose 20 MG; Start 03/05/19 at 09:00; Stop 03/05/19 at 16:00 Hydromorphone HCl (Dilaudid) 0.2 mg PACU PRN IV MILD PAIN 1-3; Start 03/05/19 at 08:30; Stop 03/05/19 at 16:00 Hydromorphone HCl (Dilaudid) 0.4 mg PACU PRN IV MOD PAIN 4-6; Start 03/05/19 at 08:30; Stop 03/05/19 at 16:00 Fentanyl (Sublimaze) 25 mcg PACU ORDER PRN IV MILD PAIN 1-3; Start 03/05/19 at 08:30; Stop 03/05/19 at 16:00 Ondansetron HCl (Zofran Inj) 4 mg PACU ORDER PRN IV NAUSEA/VOMITING; Start 03/05/19 at 08:30; Stop 03/05/19 at 16:00 Metoclopramide HCl (Reglan) 10 mg PACU ORDER PRN IV NAUSEA/VOMITING; Start 03/05/19 at 08:30; Stop 03/05/19 at 16:00 Ephedrine Sulfate 5 mg PACU ORDER PRN IV BLOOD PRESSURE SUPPORT; Start 03/05/19 at 08:30; Stop 03/05/19 at 16:00 Diphenhydramine HCl (Benadryl) 25 mg PACU ORDER PRN IV .PRURITUS; Start 03/05/19 at 08:30; Stop 03/05/19 at 16:00 KIRK AREVALO MD March 05, 2019 13:25
--- NOTE | 2019-03-05 13:26 | PN ---
Date/Time of Note Date/Time of Note DATE: 03/05/19 TIME: 13:22 Assessment/Plan VTE Prophylaxis Risk score (from Ns)>0 risk: 6 SCD applied (from Ns): Yes Pharmacological prophylaxis: other (scds) Lines/Catheters IV Catheter Type (from Nrs): Saline Lock Urinary Cath still in place: No Assessment/Plan Hospital Course Summary Assessment and Plan: Assessment: SIRS/Fevers, unclear etiology- ID recommend MADDIE to r/o valvular vegetation, cardiology will need EGD prior to MADDIE with newly dx cirrhosis EGD 03/04/2019 Moderate distal esophagitis, no evidence of significant esophageal varices Moderate gastritis, rule out H. pylori Biopsies obtained MADDIE No endocarditis Liver cirrhosis --Liver cirrhosis on ultrasound -Hepatitis panel and MATI are negative, patient does have a hx of excessive alcohol use, quit few years ago -AMA, MATI- pending- likely will be negative Anasarca secondary to cirrhosis Microcytic anemia Hyperthyroid: - followed by endocrine Tachycardia -2/2 hyperthyroid DM, type 2 Hyponatremia secondary to liver disease Coronary artery disease Debility 2/2 comorbidities Plan: Continue current regimen Will await pathology of bx- if negative GI will sign off Patient seen in collaboration with Dr. Apple Subjective: Course reviewed with nursing staff Patient interviewed and examined All labs, imaging and other results reviewed The patient resting in bed with at bedside No over night events. I discussed results of EGD with . Pt tolerating diet. Gi will stay on until EGD bx pathology returns Constitutional: alert, oriented Psych: no complaints, nl mood/affect Head: normocephalic, atraumatic Eyes: nl conjunctiva ENMT: nl external ears & nose Neck: supple Respiratory: clear to auscultation, normal air movement Cardiovascular: regular rate and rhythm, nl pulses Gastrointestinal: soft, non-tender, distended Extremities: edema Result Diagram: 03/04/19 0746 03/05/19 0558 Results 24hrs Laboratory Tests Test 03/04/19 17:44 03/04/19 19:52 03/04/19 21:34 03/05/19 03:38 Bedside Glucose 68 L 108 103 115 Test 03/05/19 05:58 03/05/19 08:22 03/05/19 09:06 03/05/19 12:25 Sodium Level 128 L Potassium Level 4.4 Chloride Level 94 L Carbon Dioxide Level 29 Anion Gap 5 Blood Urea Nitrogen 11 Creatinine 0.82 Est Glomerular > 60 Filtrat Rate mL/min Glucose Level 102 Calcium Level 9.1 Phosphorus Level 3.4 Magnesium Level 1.7 Bedside Glucose 107 131 128 Exam/Review of Systems Exam Vitals Vital Signs Date Temp Pulse Resp B/P (MAP) Pulse Ox O2 O2 Flow FiO2 Time Delivery Rate 03/05/19 102 12:04 03/05/19 97.7 18 121/75 99 Nasal 3.0 11:06 (90) Cannula Intake and Output 03/04/19 03/04/19 03/05/19 1515:00 23:00 07:00 IntakeIntake Total 370 ml 300 ml OutputOutput Total 300 ml 200 ml BalanceBalance 70 ml 100 ml Results Results 24hrs Laboratory Tests Test 03/04/19 17:44 03/04/19 19:52 03/04/19 21:34 03/05/19 03:38 Bedside Glucose 68 L 108 103 115 Test 03/05/19 05:58 03/05/19 08:22 03/05/19 09:06 03/05/19 12:25 Sodium Level 128 L Potassium Level 4.4 Chloride Level 94 L Carbon Dioxide Level 29 Anion Gap 5 Blood Urea Nitrogen 11 Creatinine 0.82 Est Glomerular > 60 Filtrat Rate mL/min Glucose Level 102 Calcium Level 9.1 Phosphorus Level 3.4 Magnesium Level 1.7 Bedside Glucose 107 131 128 Medications Medication Current Medications IV Flush (NS 3 ml) 3 ml PER PROTOCOL IV ; Start 02/06/19 at 15:00 Acetaminophen (Tylenol Tab) 650 mg Q6H PRN PO .PAIN 1-3 OR TEMP Last administered on 03/03/19at 06:28; Admin Dose 650 MG; Start 02/06/19 at 15:00 Atorvastatin Calcium (Lipitor) 10 mg DAILY@21 PO Last administered on 03/04/19at 21:28; Admin Dose 10 MG; Start 02/06/19 at 21:00 Miscellaneous Information 1 ea NOTE XX ; Start 02/06/19 at 16:00 Glucose (Glutose) 15 gm Q15M PRN PO DECREASED GLUCOSE; Start 02/06/19 at 16:00 Glucose (Glutose) 22.5 gm Q15M PRN PO DECREASED GLUCOSE; Start 02/06/19 at 16:00 Dextrose (D50w Syringe) 25 ml Q15M PRN IV DECREASED GLUCOSE Last administered on 02/26/19 17:21; Admin Dose 25 ML; Start 02/06/19 at 16:00 Dextrose (D50w Syringe) 50 ml Q15M PRN IV DECREASED GLUCOSE; Start 02/06/19 at 16:00 Glucagon (Glucagen) 1 mg Q15M PRN IM DECREASED GLUCOSE; Start 02/06/19 at 16:00 Glucose (Glutose) 15 gm Q15M PRN BUCCAL DECREASED GLUCOSE Last administered on 02/22/19at 23:24; Admin Dose 15 GM; Start 02/06/19 at 16:00 Pantoprazole (Protonix Tab) 40 mg BID@0600,1800 PO Last administered on 03/05/19 05:29; Admin Dose 40 MG; Start 02/07/19 at 06:00 Miscellaneous Information (* Miscellaneous Pharmacy Order) Treatment of Hypoglycemia: 1.BG 51... Per protocol XX ; Start 02/08/19 at 09:00 Dextrose (D50w Syringe) 25 ml Q15M PRN IV .DECREASED GLUCOSE; Start 02/08/19 at 09:00 Dextrose (D50w Syringe) 50 ml Q15M PRN IV .DECREASED GLUCOSE; Start 02/08/19 at 09:00 Methimazole (Tapazole) 30 mg BID PO Last administered on 03/05/19 09:10; Admin Dose 30 MG; Start 02/08/19 at 13:30 Heparin Sodium (Porcine) (Heparin (5000 Units/1ml)) 5,000 unit BID SC Last administered on 02/14/19at 22:48; Admin Dose 5,000 UNIT; Start 02/11/19 at 09:00; Status Hold Acetaminophen/ Hydrocodone Bitart ([place] (5/325)) 1 tab Q6H PRN PO MODERATE PAIN LEVEL 4-6 Last administered on 02/23/19 14:08; Admin Dose 1 TAB; Start 02/12/19 at 09:00 Senna (Senokot) 2 tab BID PO Last administered on 03/05/19 09:10; Admin Dose 2 TAB; Start 02/16/19 at 21:00 Morphine Sulfate (morphine) 2 mg Q4H PRN IV SEVERE PAIN LEVEL 7-10 Last administered on 02/22/19 18:33; Admin Dose 2 MG; Start 02/22/19 at 09:00 Insulin Aspart (Novolog Insulin Pen) NOVOLOG *MILD* ALGORITHM WITH MEALS BEDTIME SC ; Start 02/23/19 at 11:50 Midodrine (Proamatine) 10 mg TID@09,13,17 PO Last administered on 03/05/19 12:45; Admin Dose 10 MG; Start 02/23/19 at 13:00 Ascorbic Acid (Vitamin C) 500 mg BID PO Last administered on 03/05/19 09:11; Admin Dose 500 MG; Start 02/24/19 at 21:00; Stop 03/26/19 at 20:59 Ferrous Sulfate (Ferrous Sulfate (Ec)) 325 mg BID PO Last administered on 03/05/19 09:11; Admin Dose 325 MG; Start 02/24/19 at 21:00; Stop 03/26/19 at 20:59 Spironolactone (Aldactone) 50 mg BID DIURETICS PO Last administered on 03/04/19 18:07; Admin Dose 50 MG; Start 02/27/19 at 18:00 Docusate Sodium (Colace) 200 mg BID PO Last administered on 03/05/19 09:11; Admin Dose 200 MG; Start 02/27/19 at 21:00 Bismuth Subsalicylate (Pepto-Bismol) 30 ml QID PO Last administered on 03/05/19 12:44; Admin Dose 30 ML; Start 02/27/19 at 21:00 Cefepime HCl 50 ml @ 100 mls/hr Q12 IVPB Last administered on 03/05/19 09:07; Admin Dose 100 MLS/HR; Start 03/01/19 at 13:00 Insulin Glargine (Lantus) 3 units DAILY@0930 SC Last administered on 03/05/19 09:14; Admin Dose 3 UNITS; Start 03/02/19 at 09:30 Ondansetron HCl (Zofran Inj) 4 mg Q4 PRN IV NAUSEA/VOMITING Last administered on 03/04/19 05:50; Admin Dose 4 MG; Start 03/04/19 at 03:30 Metoclopramide HCl (Reglan) 10 mg Q6H PRN IV NAUSEA Last administered on 03/04/19 03:22; Admin Dose 10 MG; Start 03/04/19 at 03:30 Insulin Aspart (Novolog Insulin Pen) 3 unit WITH MEALS SC Last administered on 03/05/19at 12:51; Admin Dose 3 UNIT; Start 03/04/19 at 17:55 Furosemide (Lasix) 20 mg DAILY PO Last administered on 03/05/19at 09:17; Admin Dose 20 MG; Start 03/05/19 at 09:00; Stop 03/05/19 at 16:00 Hydromorphone HCl (Dilaudid) 0.2 mg PACU PRN IV MILD PAIN 1-3; Start 03/05/19 at 08:30; Stop 03/05/19 at 16:00 Hydromorphone HCl (Dilaudid) 0.4 mg PACU PRN IV MOD PAIN 4-6; Start 03/05/19 at 08:30; Stop 03/05/19 at 16:00 Fentanyl (Sublimaze) 25 mcg PACU ORDER PRN IV MILD PAIN 1-3; Start 03/05/19 at 08:30; Stop 03/05/19 at 16:00 Ondansetron HCl (Zofran Inj) 4 mg PACU ORDER PRN IV NAUSEA/VOMITING; Start 03/05/19 at 08:30; Stop 03/05/19 at 16:00 Metoclopramide HCl (Reglan) 10 mg PACU ORDER PRN IV NAUSEA/VOMITING; Start 03/05/19 at 08:30; Stop 03/05/19 at 16:00 Ephedrine Sulfate 5 mg PACU ORDER PRN IV BLOOD PRESSURE SUPPORT; Start 03/05/19 at 08:30; Stop 03/05/19 at 16:00 Diphenhydramine HCl (Benadryl) 25 mg PACU ORDER PRN IV .PRURITUS; Start 03/05/19 at 08:30; Stop 03/05/19 at 16:00 ALYSSA ROSS March 05, 2019 13:26
--- NOTE | 2019-03-05 13:39 | CONS ---
Assessment/Plan Assessment/Plan Hospital Course (Demo Recall) assessment/impression # recurrent fever, sepsis vs. SIRS of unknown etiology - persistent bilateral epididymitis, although ultrasound on 02/27/2019 showed improvement - persistent enterobacter in urine 02/27/2019, urine for gonorrhea and chlamydia was negative on 02/21/2019, urine culture <10K citrobacter and <10K ashley on 02/13/2019 - procalcitonin unremarkable: <0.1, 0.11, 0.2, 0.11, 0.14 - elevated ESR, lactic acid, C reactive protein - extraction of lower teeth prior to the start of fever according to Pt's daughter - past exposure to EBV - The following ID work up was negative: HIV screening, HIV viral load, cryptococcus antigen, mono, Dengue serology, blood smear for malaria, resp virus panel, MTB complex, HSV 1&2 by PCR, CMV, WBC scan on 12/18/2018, acute hepatitis panel, stool O&P, R. typhi IgM/IgG, pleural fluid (MTB complex NAAT/PCR probe, cultures of bacteria, fungi and AFB) - Transesophageal echo on 03/05/2019 was negative for valvular vegetation - the following non-ID workup was negative too: rheumatoid factor, MATI, HIT panel, thyroglobulin, thyroid antimicrosomal # heme - s/p bone marrow biopsy 02/19/19, no e/o leukemia/lymphoma per conversation with Dr. Carvajal on 02/28/2019 - the bone marrow was negative for AFB stain and Giemsa stain per conversation with Dr. Carvajal on 03/05/2019 - gastritis due to H. pylori: diagnosed by H. 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 AFB smear of sputum was negative on 12/11/2018, 12/13/2018, and 12/19/2018; repeat QTB gold negative on 12/16/2018 - mod-large pleural effusions per CT chest 02/22/19 - s/p thoracentesis on 02/28/2019, protein <2, LDH 512, an exudative effusion. MTB complex NAAT/PCR probe, cultures of bacteria, fungi and AFB negative so far. I ordered cytology, O&P on his pleural effusion but they were not performed. No reasons posted - h/o ESBL+klebsiella in sputum culture on 12/15/2018, likely colonizer # endo, cardiac and GI - Graves disease with exophthalmos - Hyperthyroidism - on Tapazole - T2DM - Hgb A1c 5.6% - SVT on 02/17/2019, s/p adenosine - ESLD (cirrhosis seen on [facility]), probably due to alcoholic hepatitis - alcoholic hepatitis, Pt stopped drinking heavily until 20 years ago, according to Pt's daughter - EGD on 03/04/2019 was negative for esophageal varices revised recommendations: - pending results: hepatitis B viral load and hepatitis C viral load, IgD level, Leishmania IgG - On 03/05/[address] Carvajal: immunohistochemical stain for CMV, EBV, HSV and HHV8 will be ready this Sunday. If the result is negative, OK for a trial of steroid - GI and cardiology consult appreciated - I recommend cefepime (restart 03/01/2019) for 7 days management d/w Pt, his , Dr. Berrios and Dr. Carvajal Consultation Date/Type/Reason Admit Date/Time Feb 06, 2019 at 14:46 Initial Consult Date 02/18/19 Type of Consult ID Requesting Provider: RODRIGUEZ DOTY Date/Time of Note DATE: 03/05/19 TIME: 13:29 24 HR Interval Summary Constitutional: other (no fever) Detailed Summary Respiratory: no complaints Gastrointestinal: no complaints Genitourinary: other (the scrotum is "OK") Exam/Review of Systems Exam Vitals Vital Signs Date Temp Pulse Resp B/P (MAP) Pulse Ox O2 O2 Flow FiO2 Time Delivery Rate 03/05/19 102 12:04 03/05/19 97.7 18 121/75 99 Nasal 3.0 11:06 (90) Cannula Intake and Output 03/04/19 03/04/19 03/05/19 1515:00 23:00 07:00 IntakeIntake Total 370 ml 300 ml OutputOutput Total 300 ml 200 ml BalanceBalance 70 ml 100 ml Constitutional: frail Psych: no complaints, nl mood/affect Head: normocephalic, atraumatic Eyes: nl conjunctiva, nl lids, nl sclera ENMT: nl external ears & nose, nl nasal mucosa & septum, mucosa pink and moist Neck: other (not swollen) Respiratory: clear to auscultation, normal air movement Cardiovascular: regular rate and rhythm, nl pulses Gastrointestinal: soft; No distended Genitourinary - Male: other (scrotum is less swollen) Musculoskeletal: nl extremities to inspection Extremities: edema Neurological: lethargic Skin: nl turgor Results Result Diagram: 03/04/19 0746 03/05/19 0558 Results 24hrs Laboratory Tests Test 03/04/19 17:44 03/04/19 19:52 03/04/19 21:34 03/05/19 03:38 Bedside Glucose 68 L 108 103 115 Test 03/05/19 05:58 03/05/19 08:22 03/05/19 09:06 03/05/19 12:25 Sodium Level 128 L Potassium Level 4.4 Chloride Level 94 L Carbon Dioxide Level 29 Anion Gap 5 Blood Urea Nitrogen 11 Creatinine 0.82 Est Glomerular > 60 Filtrat Rate mL/min Glucose Level 102 Calcium Level 9.1 Phosphorus Level 3.4 Magnesium Level 1.7 Bedside Glucose 107 131 128 Medications Medication Current Medications IV Flush (NS 3 ml) 3 ml PER PROTOCOL IV ; Start 02/06/19 at 15:00 Acetaminophen (Tylenol Tab) 650 mg Q6H PRN PO .PAIN 1-3 OR TEMP Last administered on 03/03/19at 06:28; Admin Dose 650 MG; Start 02/06/19 at 15:00 Atorvastatin Calcium (Lipitor) 10 mg DAILY@21 PO Last administered on 03/04/19at 21:28; Admin Dose 10 MG; Start 02/06/19 at 21:00 Miscellaneous Information 1 ea NOTE XX ; Start 02/06/19 at 16:00 Glucose (Glutose) 15 gm Q15M PRN PO DECREASED GLUCOSE; Start 02/06/19 at 16:00 Glucose (Glutose) 22.5 gm Q15M PRN PO DECREASED GLUCOSE; Start 02/06/19 at 16:00 Dextrose (D50w Syringe) 25 ml Q15M PRN IV DECREASED GLUCOSE Last administered on 02/26/19at 17:21; Admin Dose 25 ML; Start 02/06/19 at 16:00 Dextrose (D50w Syringe) 50 ml Q15M PRN IV DECREASED GLUCOSE; Start 02/06/19 at 16:00 Glucagon (Glucagen) 1 mg Q15M PRN IM DECREASED GLUCOSE; Start 02/06/19 at 16:00 Glucose (Glutose) 15 gm Q15M PRN BUCCAL DECREASED GLUCOSE Last administered on 02/22/19at 23:24; Admin Dose 15 GM; Start 02/06/19 at 16:00 Pantoprazole (Protonix Tab) 40 mg BID@0600,1800 PO Last administered on 03/05/19at 05:29; Admin Dose 40 MG; Start 02/07/19 at 06:00 Miscellaneous Information (* Miscellaneous Pharmacy Order) Treatment of Hypoglycemia: 1.BG 51... Per protocol XX ; Start 02/08/19 at 09:00 Dextrose (D50w Syringe) 25 ml Q15M PRN IV .DECREASED GLUCOSE; Start 02/08/19 at 09:00 Dextrose (D50w Syringe) 50 ml Q15M PRN IV .DECREASED GLUCOSE; Start 02/08/19 at 09:00 Methimazole (Tapazole) 30 mg BID PO Last administered on 03/05/19at 09:10; Admin Dose 30 MG; Start 02/08/19 at 13:30 Heparin Sodium (Porcine) (Heparin (5000 Units/1ml)) 5,000 unit BID SC Last administered on 02/14/19at 22:48; Admin Dose 5,000 UNIT; Start 02/11/19 at 09:00; Status Hold Acetaminophen/ Hydrocodone Bitart ([place] (5/325)) 1 tab Q6H PRN PO MODERATE PAIN LEVEL 4-6 Last administered on 02/23/19at 14:08; Admin Dose 1 TAB; Start 02/12/19 at 09:00 Senna (Senokot) 2 tab BID PO Last administered on 03/05/19 09:10; Admin Dose 2 TAB; Start 02/16/19 at 21:00 Morphine Sulfate (morphine) 2 mg Q4H PRN IV SEVERE PAIN LEVEL 7-10 Last administered on 02/22/19at 18:33; Admin Dose 2 MG; Start 02/22/19 at 09:00 Insulin Aspart (Novolog Insulin Pen) NOVOLOG *MILD* ALGORITHM WITH MEALS BEDTIME SC ; Start 02/23/19 at 11:50 Midodrine (Proamatine) 10 mg TID@,,17 PO Last administered on 03/05/19 12:45; Admin Dose 10 MG; Start 02/23/19 at 13:00 Ascorbic Acid (Vitamin C) 500 mg BID PO Last administered on 03/05/19 09:11; Admin Dose 500 MG; Start 02/24/19 at 21:00; Stop 03/26/19 at 20:59 Ferrous Sulfate (Ferrous Sulfate (Ec)) 325 mg BID PO Last administered on 03/05/19 09:11; Admin Dose 325 MG; Start 02/24/19 at 21:00; Stop 03/26/19 at 20:59 Spironolactone (Aldactone) 50 mg BID DIURETICS PO Last administered on 03/04/19 18:07; Admin Dose 50 MG; Start 02/27/19 at 18:00 Docusate Sodium (Colace) 200 mg BID PO Last administered on 03/05/19 09:11; Admin Dose 200 MG; Start 02/27/19 at 21:00 Bismuth Subsalicylate (Pepto-Bismol) 30 ml QID PO Last administered on 03/05/19 12:44; Admin Dose 30 ML; Start 02/27/19 at 21:00 Cefepime HCl 50 ml @ 100 mls/hr Q12 IVPB Last administered on 03/05/19 09:07; Admin Dose 100 MLS/HR; Start 03/01/19 at 13:00 Insulin Glargine (Lantus) 3 units DAILY@0930 SC Last administered on 03/05/19 09:14; Admin Dose 3 UNITS; Start 03/02/19 at 09:30 Ondansetron HCl (Zofran Inj) 4 mg Q4 PRN IV NAUSEA/VOMITING Last administered on 03/04/19 05:50; Admin Dose 4 MG; Start 03/04/19 at 03:30 Metoclopramide HCl (Reglan) 10 mg Q6H PRN IV NAUSEA Last administered on 03/04/19 03:22; Admin Dose 10 MG; Start 03/04/19 at 03:30 Insulin Aspart (Novolog Insulin Pen) 3 unit WITH MEALS SC Last administered on 03/05/19 12:51; Admin Dose 3 UNIT; Start 03/04/19 at 17:55 Hydromorphone HCl (Dilaudid) 0.2 mg PACU PRN IV MILD PAIN 1-3; Start 03/05/19 at 08:30; Stop 03/05/19 at 16:00 Hydromorphone HCl (Dilaudid) 0.4 mg PACU PRN IV MOD PAIN 4-6; Start 03/05/19 at 08:30; Stop 03/05/19 at 16:00 Fentanyl (Sublimaze) 25 mcg PACU ORDER PRN IV MILD PAIN 1-3; Start 03/05/19 at 08:30; Stop 03/05/19 at 16:00 Ondansetron HCl (Zofran Inj) 4 mg PACU ORDER PRN IV NAUSEA/VOMITING; Start 03/05/19 at 08:30; Stop 03/05/19 at 16:00 Metoclopramide HCl (Reglan) 10 mg PACU ORDER PRN IV NAUSEA/VOMITING; Start 03/05/19 at 08:30; Stop 03/05/19 at 16:00 Ephedrine Sulfate 5 mg PACU ORDER PRN IV BLOOD PRESSURE SUPPORT; Start 03/05/19 at 08:30; Stop 03/05/19 at 16:00 Diphenhydramine HCl (Benadryl) 25 mg PACU ORDER PRN IV .PRURITUS; Start 03/05/19 at 08:30; Stop 03/05/19 at 16:00 Furosemide (Lasix) 20 mg BID PO ; Start 03/05/19 at 21:00; Status BRENDEN MA M.D. March 05, 2019 13:39
[2019-03-05] MEDS: SPIRONOLACTONE 50 MG TAB PO SCH (17:57)
[2019-03-05] MEDS: ATORVASTATIN 10 MG TAB PO SCH (21:22)
[2019-03-06] VITALS (11 sets, daily range): BP systolic 98–104; BP diastolic 53–65; PULSE 109–169; RESP 16–19
[2019-03-06] MEDS: morphine 2 MG INJ IV PRN ×2 (04:35→09:59)
[2019-03-06] MEDS: PANTOPRAZOLE (EC) 40 MG TAB PO SCH ×2 (06:53→17:20)
[2019-03-06] MEDS: SPIRONOLACTONE 50 MG TAB PO SCH ×2 (06:53→17:20)
[2019-03-06] MEDS: INSULIN ASPART [NOVOLOG] 3 ML PEN SC SCH ×7 (07:55→20:29)
[2019-03-06] MEDS: SENNA TAB PO SCH ×2 (09:18→20:30)
[2019-03-06] MEDS: METHIMAZOLE 5 MG TAB PO SCH ×2 (09:18→20:35)
[2019-03-06] MEDS: ASCORBIC ACID 500 MG TAB PO SCH ×2 (09:18→20:35)
[2019-03-06] MEDS: DOCUSATE SODIUM 100 MG CAP PO SCH ×2 (09:18→20:30)
[2019-03-06] MEDS: BISMUTH SUBSALICYLATE 240 ML BTL PO SCH ×4 (09:19→20:37)
[2019-03-06] MEDS: FERROUS SULFATE (EC) 325 MG TAB PO SCH ×2 (09:19→20:35)
[2019-03-06] MEDS: FUROSEMIDE 20 MG TAB PO SCH ×2 (09:19→20:36)
[2019-03-06] MEDS: MIDODRINE 5 MG TAB PO SCH ×3 (09:26→17:20)
[2019-03-06] MEDS: INSULIN GLARGINE [LANTus] (100 UNITS/ML) SYG SC SCH (09:34)
[2019-03-06] MEDS: CEFEPIME 1GM/50 ML (PMX) 50 ML IVPB SCH ×2 (09:36→20:29)
--- NOTE | 2019-03-06 10:23 | PN ---
DATE: 03/06/2019 SUBJECTIVE: The patient is stable, no events overnight. No fevers, chills, nausea, or vomiting. Th e patient continues to have pain in lower extremity. The patient continues to have episodes of tachy cardia. OBJECTIVE: VITAL SIGNS: Blood pressure is 98/53, respirations 18, pulse 119, temperature 97.7. HEENT: Head is normocephalic. NECK: Supple. HEART: Regular rate. LUNGS: Show diminished breath sounds at the base. ABDOMEN: Soft, nontender to palpation without rebound or guarding. EXTREMITIES: Negative for clubbing, cyanosis, no edema. DERMATOLOGIC: No rashes. MUSCULOSKELETAL: No joint effusion. NEUROLOGIC: No change in exam. MEDICATIONS: Reviewed. LABORATORY DATA: Reviewed. ASSESSMENT AND PLAN: 1. Hypernatremia, etiology is likely due to cirrhosis. The patient's sodium levels remain low but s table. Continue free water restriction, continue diuretic therapy as tolerated. 2. Volume overload secondary to cirrhosis and third spacing. The patient appears near euvolemic. C ontinue low dose diuretic therapy, and monitor. 3. Cirrhosis. Continue medical management. 4. Graves' disease, hypothyroidism. Continue current treatment plan. 5. Systemic inflammatory response syndrome. Etiology is unclear. Workup is ongoing. Follow up wit h infectious disease and rheumatology. Continue to monitor. 6. Lactic acidosis. Etiology may be secondary to hemodynamics, questionable cirrhosis. Continue to monitor. 7. History of arrhythmia. Continue current treatment plan. 8. Hypomagnesemia. Continue to monitor and replete as needed. 9. Pleural effusion, status post thoracentesis. Dictated By: DIANNA SAWYER DO NR/NTS Conf#: [id number] DID#: [id number] CC: KIRK AREVALO MD; PURVI QUIGLEY MD; EVIE TRAORE MD;*EndCC*
--- NOTE | 2019-03-06 11:03 | PN ---
Date/Time of Note Date/Time of Note DATE: 03/06/19 TIME: 11:01 Assessment/Plan VTE Prophylaxis Risk score (from Ns)>0 risk: 6 SCD applied (from Ns): Yes Pharmacological prophylaxis: other (scds) Lines/Catheters IV Catheter Type [facility]from [facility] Saline Lock Urinary Cath still in place: No Assessment/Plan Hospital Course Summary Assessment and Plan: Assessment: SIRS/Fevers, unclear etiology- ID recommend MADDIE to r/o valvular vegetation, cardiology will need EGD prior to MADDIE with newly dx cirrhosis EGD 03/04/2019 Moderate distal esophagitis, no evidence of significant esophageal varices Moderate gastritis, rule out H. pylori Biopsies obtained- Negative for Helicobacter pylori. No dysplasia or intestinal metaplasia is identified. MADDIE No endocarditis Liver cirrhosis --Liver cirrhosis on ultrasound -Hepatitis panel and MATI are negative, patient does have a hx of excessive alcohol use, quit few years ago -AMA, MATI- negative Anasarca secondary to cirrhosis Microcytic anemia Hyperthyroid: - followed by endocrine Tachycardia -2/2 hyperthyroid DM, type 2 Hyponatremia secondary to liver disease Coronary artery disease Debility 2/2 comorbidities Plan: Continue current regimen Bx results reviewed and are negative- GI will sign off, but will be available upon reconsult as needed Patient seen in collaboration with Dr. Apple Subjective: Course reviewed with nursing staff Patient interviewed and examined All labs, imaging and other results reviewed No over night events Discussed results of bx. No c/o n/v Constitutional: alert, oriented Psych: no complaints, nl mood/affect Head: normocephalic, atraumatic Eyes: nl conjunctiva ENMT: nl external ears & nose Neck: supple Respiratory: clear to auscultation, normal air movement Cardiovascular: regular rate and rhythm, nl pulses Gastrointestinal: soft, non-tender, distended Extremities: edema Result Diagram: 03/04/19 0746 03/05/19 0558 Results 24hrs Laboratory Tests Test 03/05/19 12:25 03/05/19 17:14 03/05/19 21:16 03/06/19 08:32 Bedside Glucose 128 96 87 118 Exam/Review of Systems Exam Vitals Vital Signs Date Temp Pulse Resp B/P (MAP) Pulse Ox O2 O2 Flow FiO2 Time Delivery Rate 03/06/19 Nasal 2.0 10:05 Cannula 03/06/19 130 08:00 03/06/19 97.7 18 98/53 (68) 96 03:54 Intake and Output 03/05/19 03/05/19 03/06/19 1515:00 23:00 07:00 IntakeIntake Total 600 ml OutputOutput Total 1200 ml BalanceBalance -600 ml Results Results 24hrs Laboratory Tests Test 03/05/19 12:25 03/05/19 17:14 03/05/19 21:16 03/06/19 08:32 Bedside Glucose 128 96 87 118 Medications Medication Current Medications IV Flush (NS 3 ml) 3 ml PER PROTOCOL IV ; Start 02/06/19 at 15:00 Acetaminophen (Tylenol Tab) 650 mg Q6H PRN PO .PAIN 1-3 OR TEMP Last administered on 03/03/19at 06:28; Admin Dose 650 MG; Start 02/06/19 at 15:00 Atorvastatin Calcium (Lipitor) 10 mg DAILY@21 PO Last administered on 03/05/19at 21:22; Admin Dose 10 MG; Start 02/06/19 at 21:00 Miscellaneous Information 1 ea NOTE XX ; Start 02/06/19 at 16:00 Glucose (Glutose) 15 gm Q15M PRN PO DECREASED GLUCOSE; Start 02/06/19 at 16:00 Glucose (Glutose) 22.5 gm Q15M PRN PO DECREASED GLUCOSE; Start 02/06/19 at 16:00 Dextrose (D50w Syringe) 25 ml Q15M PRN IV DECREASED GLUCOSE Last administered on 02/26/19at 17:21; Admin Dose 25 ML; Start 02/06/19 at 16:00 Dextrose (D50w Syringe) 50 ml Q15M PRN IV DECREASED GLUCOSE; Start 02/06/19 at 1 6:00 Glucagon (Glucagen) 1 mg Q15M PRN IM DECREASED GLUCOSE; Start 02/06/19 at 16:00 Glucose (Glutose) 15 gm Q15M PRN BUCCAL DECREASED GLUCOSE Last administered on 02/22/19at 23:24; Admin Dose 15 GM; Start 02/06/19 at 16:00 Pantoprazole (Protonix Tab) 40 mg BID@0600,1800 PO Last administered on at 06:53; Admin Dose 40 MG; Start 02/07/19 at 06:00 Miscellaneous Information (* Miscellaneous Pharmacy Order) Treatment of Hypoglycemia: 1.BG 51... Per protocol XX ; Start 02/08/19 at 09:00 Dextrose (D50w Syringe) 25 ml Q15M PRN IV .DECREASED GLUCOSE; Start 02/08/19 at 09:00 Dextrose (D50w Syringe) 50 ml Q15M PRN IV .DECREASED GLUCOSE; Start 02/08/19 at 09:00 Methimazole (Tapazole) 30 mg BID PO Last administered on 03/06/19 09:18; Admin Dose 30 MG; Start 02/08/19 at 13:30 Heparin Sodium (Porcine) (Heparin (5000 Units/1ml)) 5,000 unit BID SC Last administered on 02/14/19 22:48; Admin Dose 5,000 UNIT; Start 02/11/19 at 09:00; Status Hold Acetaminophen/ Hydrocodone Bitart ([place] (5/325)) 1 tab Q6H PRN PO MODERATE PAIN LEVEL 4-6 Last administered on 02/23/19 14:08; Admin Dose 1 TAB; Start 02/12/19 at 09:00 Senna (Senokot) 2 tab BID PO Last administered on 03/06/19 09:18; Admin Dose 2 TAB; Start 02/16/19 at 21:00 Morphine Sulfate (morphine) 2 mg Q4H PRN IV SEVERE PAIN LEVEL 7-10 Last administered on 03/06/19 09:59; Admin Dose 2 MG; Start 02/22/19 at 09:00 Insulin Aspart (Novolog Insulin Pen) NOVOLOG *MILD* ALGORITHM WITH MEALS BEDTIME SC ; Start 02/23/19 at 11:50 Midodrine (Proamatine) 10 mg TID@,,17 PO Last administered on 03/06/19 09:26; Admin Dose 10 MG; Start 02/23/19 at 13:00 Ascorbic Acid (Vitamin C) 500 mg BID PO Last administered on 03/06/19 09:18; Admin Dose 500 MG; Start 02/24/19 at 21:00; Stop 03/26/19 at 20:59 Ferrous Sulfate (Ferrous Sulfate (Ec)) 325 mg BID PO Last administered on 03/06/19 09:19; Admin Dose 325 MG; Start 02/24/19 at 21:00; Stop 03/26/19 at 20:59 Spironolactone (Aldactone) 50 mg BID DIURETICS PO Last administered on 03/06/19 06:53; Admin Dose 50 MG; Start 02/27/19 at 18:00 Docusate Sodium (Colace) 200 mg BID PO Last administered on 03/06/19 09:18; Admin Dose 200 MG; Start 02/27/19 at 21:00 Bismuth Subsalicylate (Pepto-Bismol) 30 ml QID PO Last administered on 03/06/19 09:19; Admin Dose 30 ML; Start 02/27/19 at 21:00 Cefepime HCl 50 ml @ 100 mls/hr Q12 IVPB Last administered on 03/06/19 09:36; Admin Dose 100 MLS/HR; Start 03/01/19 at 13:00 Insulin Glargine (Lantus) 3 units DAILY@0930 SC Last administered on 03/06/19 09:34; Admin Dose 3 UNITS; Start 03/02/19 at 09:30 Ondansetron HCl (Zofran Inj) 4 mg Q4 PRN IV NAUSEA/VOMITING Last administered on 03/04/19 05:50; Admin Dose 4 MG; Start 03/04/19 at 03:30 Metoclopramide HCl (Reglan) 10 mg Q6H PRN IV NAUSEA Last administered on 03/04/19 03:22; Admin Dose 10 MG; Start 03/04/19 at 03:30 Insulin Aspart (Novolog Insulin Pen) 3 unit WITH MEALS SC Last administered on 03/06/19 08:37; Admin Dose 3 UNIT; Start 03/04/19 at 17:55 Furosemide (Lasix) 20 mg BID PO Last administered on 03/06/19 09:19; Admin Dose 20 MG; Start 03/05/19 at 21:00 ALYSSA ROSS March 06, 2019 11:03
--- NOTE | 2019-03-06 12:29 | CONS ---
[facility] HCIS Consult Follow-up Patient Name: Alejandro Whitaker Unit Number: [id number] Date of : 1960 Patient Status: Admitted Inpatient Attending Doctor: Irving Gonzalez MD Edit: BRENDEN RODRIGUEZ M.D. on 03/06/19 @ 20:27 Michael: I discussed the management with CARDIOPULMONARY TECHNICIAN AND EEG TECH Chad and agree Assessment/Plan Assessment/Plan Hospital Course (Demo Recall) assessment/impression # recurrent fever, sepsis vs. SIRS of unknown etiology - persistent bilateral epididymitis, although ultrasound on 02/27/2019 showed improvement - persistent Enterobacter in urine 02/27/2019, urine for gonorrhea and chlamydia was negative on 02/21/2019, urine culture <10K citrobacter and <10K ashley on 02/13/2019 - procalcitonin unremarkable: <0.1, 0.11, 0.2, 0.11, 0.14 - elevated ESR, lactic acid, C reactive protein - extraction of lower teeth prior to the start of fever according to Pt's daughter - past exposure to EBV - The following ID work up was negative: HIV screening, HIV viral load, cryptococcus antigen, mono, Dengue serology, blood smear for malaria, resp virus panel, MTB complex, HSV 1&2 by PCR, CMV, WBC scan on 12/18/2018, acute hepatitis panel, stool O&P, R. typhi IgM/IgG, pleural fluid (MTB complex NAAT/PCR probe, cultures of bacteria, fungi and AFB), HCV viral load - Transesophageal echo on 03/05/2019 was negative for valvular vegetation - the following non-ID workup was negative too: rheumatoid factor, MATI, HIT panel, thyroglobulin, thyroid antimicrosomal, thyroid stimulating immunoglobulin # heme - s/p bone marrow biopsy 02/19/19, no e/o leukemia/lymphoma per conversation with Dr. Carvajal on 02/28/2019 - the bone marrow was negative for AFB stain and Giemsa stain per conversation with Dr. Carvajal on 03/05/2019 - gastritis due to H. pylori: diagnosed by H. 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 AFB smear of sputum was negative on 12/11/2018, 12/13/2018, and 12/19/2018; repeat QTB gold negative on 12/16/2018 - mod-large pleural effusions per CT chest 02/22/19 - s/p thoracentesis on 02/28/2019, protein <2, LDH 512, an exudative effusion. MTB complex NAAT/PCR probe, cultures of bacteria, fungi and AFB negative so far. I ordered cytology, O&P on his pleural effusion but they were not performed. No reasons posted - h/o ESBL+klebsiella in sputum culture on 12/15/2018, likely colonizer # endo, cardiac and GI - Graves disease with exophthalmos - Hyperthyroidism - on Tapazole - T2DM - Hgb A1c 5.6% - SVT on 02/17/2019, s/p adenosine - ESLD (cirrhosis seen on FARZANA), probably due to alcoholic hepatitis - alcoholic hepatitis, Pt stopped drinking heavily until 20 years ago, according to Pt's daughter - EGD on 03/04/2019 was negative for esophageal varices - sinus tachycardia - hypotension - on midodrine - fluid overload - on Lasix and spironolactone (EF 70%) - severe multivessel coronary artery calcification per CT 02/22/2019 recommendations: - continue cefepime (restart 03/01/2019-03/08/2019) for 7 days - pending results: hepatitis B viral load, IgD level, Leishmania IgG - Dr. Carvajal called Dr. Rodriguez today to reports that all stains requested on bone marrow were negative. Ok to proceed for a trial of steroid. - GI and cardiology consult appreciated Management d/w patient, pt's , ADDISON Hutchins, and with Dr. Rodriguez Consultation Date/Type/Reason Admit Date/Time Feb 06, 2019 at 14:46 Initial Consult Date 02/14/19 Type of Consult Infectious Disease Requesting Provider: RODRIGUEZ DOTY Date/Time of Note DATE: 03/06/19 TIME: 12:23 24 HR Interval Summary Free Text/Dictation C/o weakness nai to BLE. Denies CP or SOB. Exam/Review of Systems Exam Vitals Vital Signs Date Temp Pulse Resp B/P (MAP) Pulse Ox O2 O2 Flow FiO2 Time Delivery Rate 03/06/19 129 12:00 03/06/19 97.6 19 101/64 91 Room Air 11:18 (76) 03/06/19 2.0 10:05 Intake and Output 03/05/19 03/05/19 03/06/19 1515:00 23:00 07:00 IntakeIntake Total 600 ml OutputOutput Total 1200 ml BalanceBalance -600 ml Exam Constitutional: alert, oriented, well developed, frail Psych: nl mood/affect Head: normocephalic, atraumatic Eyes: nl conjunctiva, nl lids, nl sclera ENMT: nl external ears & nose, nl nasal mucosa & septum, mucosa pink and moist Neck: supple, other (not swollen) Respiratory: normal air movement, diminished breath sounds (at bases), other (on room air) Cardiovascular: nl pulses, other (tachycardic, regular rhythm, HR 120's on tele) Gastrointestinal: soft, non-tender Genitourinary - Male: other (no Collins; +decreased scrotal swelling) Musculoskeletal: nl extremities to inspection; Extremities: normal pulses, edema (BLE) Neurological: nl mental status Skin: nl turgor; No rash or lesions Results Result Diagram: 03/04/19 0746 03/05/19 0558 Results 24hrs Laboratory Tests Test 03/05/19 12:25 03/05/19 17:14 03/05/19 21:16 03/06/19 08:32 Bedside Glucose 128 96 87 118 Test 03/06/19 11:29 03/06/19 12:11 Bedside Glucose 122 Lab Scanned Report REFERENCE LAB Medications Medication Current Medications IV Flush (NS 3 ml) 3 ml PER PROTOCOL IV ; Start 02/06/19 at 15:00 Acetaminophen (Tylenol Tab) 650 mg Q6H PRN PO .PAIN 1-3 OR TEMP Last administered on 03/03/19at 06:28; Admin Dose 650 MG; Start 02/06/19 at 15:00 Atorvastatin Calcium (Lipitor) 10 mg DAILY@21 PO Last administered on 03/05/19at 21:22; Admin Dose 10 MG; Start 02/06/19 at 21:00 Miscellaneous Information 1 ea NOTE XX ; Start 02/06/19 at 16:00 Glucose (Glutose) 15 gm Q15M PRN PO DECREASED GLUCOSE; Start 02/06/19 at 16:00 Glucose (Glutose) 22.5 gm Q15M PRN PO DECREASED GLUCOSE; Start 02/06/19 at 16:00 Dextrose (D50w Syringe) 25 ml Q15M PRN IV DECREASED GLUCOSE Last administered on 02/26/19at 17:21; Admin Dose 25 ML; Start 02/06/19 at 16:00 Dextrose (D50w Syringe) 50 ml Q15M PRN IV DECREASED GLUCOSE; Start 02/06/19 at 16:00 Glucagon (Glucagen) 1 mg Q15M PRN IM DECREASED GLUCOSE; Start 02/06/19 at 16:00 Glucose (Glutose) 15 gm Q15M PRN BUCCAL DECREASED GLUCOSE Last administered on 02/22/19at 23:24; Admin Dose 15 GM; Start 02/06/19 at 16:00 Pantoprazole (Protonix Tab) 40 mg BID@0600,1800 PO Last administered on 03/06/19at 06:53; Admin Dose 40 MG; Start 02/07/19 at 06:00 Miscellaneous Information (* Miscellaneous Pharmacy Order) Treatment of Hy poglycemia: 1.BG 51... Per protocol XX ; Start 02/08/19 at 09:00 Dextrose (D50w Syringe) 25 ml Q15M PRN IV .DECREASED GLUCOSE; Start 02/08/19 at 09:00 Dextrose (D50w Syringe) 50 ml Q15M PRN IV .DECREASED GLUCOSE; Start 02/08/19 at 09:00 Methimazole (Tapazole) 30 mg BID PO Last administered on 03/06/19at 09:18; Admin Dose 30 MG; Start 02/08/19 at 13:30 Heparin Sodium (Porcine) (Heparin (5000 Units/1ml)) 5,000 unit BID SC Last administered on 02/14/19at 22:48; Admin Dose 5,000 UNIT; Start 02/11/19 at 09:00; Status Hold Acetaminophen/ Hydrocodone Bitart ([place] (5/325)) 1 tab Q6H PRN PO MODERATE PA IN LEVEL 4-6 Last administered on 02/23/19 14:08; Admin Dose 1 TAB; Start 02/12/19 at 09:00 Senna (Senokot) 2 tab BID PO Last administered on 03/06/19 09:18; Admin Dose 2 TAB; Start 02/16/19 at 21:00 Morphine Sulfate (morphine) 2 mg Q4H PRN IV SEVERE PAIN LEVEL 7-10 Last administered on 03/06/19 09:59; Admin Dose 2 MG; Start 02/22/19 at 09:00 Insulin Aspart (Novolog Insulin Pen) NOVOLOG *MILD* ALGORITHM WITH MEALS BEDTIME SC ; Start 02/23/19 at 11:50 Midodrine (Proamatine) 10 mg TID@09,13,17 PO Last administered on 03/06/19 09:26; Admin Dose 10 MG; Start 02/23/19 at 13:00 Ascorbic Acid (Vitamin C) 500 mg BID PO Last administered on 03/06/19 09:18; Admin Dose 500 MG; Start 02/24/19 at 21:00; Stop 03/26/19 at 20:59 Ferrous Sulfate (Ferrous Sulfate (Ec)) 325 mg BID PO Last administered on 03/06/19 09:19; Admin Dose 325 MG; Start 02/24/19 at 21:00; Stop 03/26/19 at 20:59 Spironolactone (Aldactone) 50 mg BID DIURETICS PO Last administered on 03/06/19 06:53; Admin Dose 50 MG; Start 02/27/19 at 18:00 Docusate Sodium (Colace) 200 mg BID PO Last administered on 03/06/19 09:18; Admin Dose 200 MG; Start 02/27/19 at 21:00 Bismuth Subsalicylate (Pepto-Bismol) 30 ml QID PO Last administered on 03/06/19 09:19; Admin Dose 30 ML; Start 02/27/19 at 21:00 Cefepime HCl 50 ml @ 100 mls/hr Q12 IVPB Last administered on 03/06/19 09:36; Admin Dose 100 MLS/HR; Start 03/01/19 at 13:00 Insulin Glargine (Lantus) 3 units DAILY@0930 SC Last administered on 03/06/19 09:34; Admin Dose 3 UNITS; Start 03/02/19 at 09:30 Ondansetron HCl (Zofran Inj) 4 mg Q4 PRN IV NAUSEA/VOMITING Last administered on 03/04/19at 05:50; Admin Dose 4 MG; Start 03/04/19 at 03:30 Metoclopramide HCl (Reglan) 10 mg Q6H PRN IV NAUSEA Last administered on 03/04/19at 03:22; Admin Dose 10 MG; Start 03/04/19 at 03:30 Insulin Aspart (Novolog Insulin Pen) 3 unit WITH MEALS SC Last administered on 03/06/19at 11:33; Admin Dose 3 UNIT; Start 03/04/19 at 17:55 Furosemide (Lasix) 20 mg BID PO Last administered on 03/06/19 09:19; Admin Dose 20 MG; Start 03/05/19 at 21:00 NESTOR HUGHES NP March 06, 2019 12:29
--- NOTE | 2019-03-06 12:49 | PN ---
Date/Time of Note Date/Time of Note DATE: 03/06/19 TIME: 12:49 Assessment/Plan VTE Prophylaxis Risk score (from Ns)>0 risk: 6 SCD applied (from Nsg): Yes Pharmacological prophylaxis: heparin Lines/Catheters IV Catheter Type (from Nrsg): Saline Lock Urinary Cath still in place: No Assessment/Plan Hospital Course EXAM: Appears comfortable Tachy, regular Thyromegaly Mild proprtosis CTAB Soft nt nd Testicular edema resolving 59 yo male with hyperthyroidism, hyponatremia, and pancytopenias with FUO/SIRS Fluid overload: - Continue diuretics Cirrhosis: - EGD pending - Serologic workup pending. No major etoh history FUO/SIRS: - Abx per ID - Unclear source. Has not resolved with abx. Extensive imaging negative for malignancy or infection. Bone marrow biopsy negative. WBC scan negative previously - MADDIE negative for vegetation - Vasculitis workup per rheumatology Hyperthyroid: - Off of anti-thyroidal meds per endocrine in anticipation of ablation as outpatient Tachycardia 12/07 hyperthyroid: - Metoprolol titration Cytopenias: - Flow cytometry suggested mild atypia, bone marrow biopsy wnl. LDH very elevated of unclear significance DMII: - Basal/bolus insulin Hyponatremia: - Chronic from cirrhosis - Started on salt tabs, FW restrition H Pylori infection: - s/p 3x therapy per ID Discharge plan: To home when stable Result Diagram: 03/04/19 0746 03/05/19 0558 Results 24hrs Laboratory Tests Test 03/05/19 17:14 03/05/19 21:16 03/06/19 08:32 03/06/19 11:29 Bedside Glucose 96 87 118 122 Test 03/06/19 12:11 03/06/19 12:31 Lab Scanned Report REFERENCE LAB REFERENCE LAB Subjective 24 Hr Interval Summary Free Text/Dictation Fevers resolved Mild hypoxia Exam/Review of Systems Exam Vitals Vital Signs Date Temp Pulse Resp B/P (MAP) Pulse Ox O2 O2 Flow FiO2 Time Delivery Rate 03/06/19 129 12:00 03/06/19 97.6 19 101/64 91 Room Air 11:18 (76) 03/06/19 2.0 10:05 Intake and Output 03/05/19 03/05/19 03/06/19 1515:00 23:00 07:00 IntakeIntake Total 600 ml OutputOutput Total 1200 ml BalanceBalance -600 ml Results Results 24hrs Laboratory Tests Test 03/05/19 17:14 03/05/19 21:16 03/06/19 08:32 03/06/19 11:29 Bedside Glucose 96 87 118 122 Test 03/06/19 12:11 03/06/19 12:31 Lab Scanned Report REFERENCE LAB REFERENCE LAB Medications Medication Current Medications IV Flush (NS 3 ml) 3 ml PER PROTOCOL IV ; Start 02/06/19 at 15:00 Acetaminophen (Tylenol Tab) 650 mg Q6H PRN PO .PAIN 1-3 OR TEMP Last administered on 03/03/19at 06:28; Admin Dose 650 MG; Start 02/06/19 at 15:00 Atorvastatin Calcium (Lipitor) 10 mg DAILY@21 PO Last administered on 03/05/19at 21:22; Admin Dose 10 MG; Start 02/06/19 at 21:00 Miscellaneous Information 1 ea NOTE XX ; Start 02/06/19 at 16:00 Glucose (Glutose) 15 gm Q15M PRN PO DECREASED GLUCOSE; Start 02/06/19 at 16:00 Glucose (Glutose) 22.5 gm Q15M PRN PO DECREASED GLUCOSE; Start 02/06/19 at 16:00 Dextrose (D50w Syringe) 25 ml Q15M PRN IV DECREASED GLUCOSE Last administered on 02/26/19at 17:21; Admin Dose 25 ML; Start 02/06/19 at 16:00 Dextrose (D50w Syringe) 50 ml Q15M PRN IV DECREASED GLUCOSE; Start 02/06/19 at 16:00 Glucagon (Glucagen) 1 mg Q15M PRN IM DECREASED GLUCOSE; Start 02/06/19 at 16:00 Glucose (Glutose) 15 gm Q15M PRN BUCCAL DECREASED GLUCOSE Last administered on 02/22/19at 23:24; Admin Dose 15 GM; Start 02/06/19 at 16:00 Pantoprazole (Protonix Tab) 40 mg BID@0600,1800 PO Last administered on 03/06/19at 06:53; Admin Dose 40 MG; Start 02/07/19 at 06:00 Miscellaneous Information (* Miscellaneous Pharmacy Order) Treatment of Hypoglycemia: 1.BG 51... Per protocol XX ; Start 02/08/19 at 09:00 Dextrose (D50w Syringe) 25 ml Q15M PRN IV .DECREASED GLUCOSE; Start 02/08/19 at 09:00 Dextrose (D50w Syringe) 50 ml Q15M PRN IV .DECREASED GLUCOSE; Start 02/08/19 at 09:00 Methimazole (Tapazole) 30 mg BID PO Last administered on 03/06/19 09:18; Admin Dose 30 MG; Start 02/08/19 at 13:30 Heparin Sodium (Porcine) (Heparin (5000 Units/1ml)) 5,000 unit BID SC Last administered on 02/14/19 22:48; Admin Dose 5,000 UNIT; Start 02/11/19 at 09:00; Status Hold Acetaminophen/ Hydrocodone Bitart ([place] (5/325)) 1 tab Q6H PRN PO MODERATE PAIN LEVEL 4-6 Last administered on 02/23/19 14:08; Admin Dose 1 TAB; Start 02/12/19 at 09:00 Senna (Senokot) 2 tab BID PO Last administered on 03/06/19 09:18; Admin Dose 2 TAB; Start 02/16/19 at 21:00 Morphine Sulfate (morphine) 2 mg Q4H PRN IV SEVERE PAIN LEVEL 7-10 Last administered on 03/06/19 09:59; Admin Dose 2 MG; Start 02/22/19 at 09:00 Insulin Aspart (Novolog Insulin Pen) NOVOLOG *MILD* ALGORITHM WITH MEALS BEDTIME SC ; Start 02/23/19 at 11:50 Midodrine (Proamatine) 10 mg TID@,13,17 PO Last administered on 03/06/19 12:28; Admin Dose 10 MG; Start 02/23/19 at 13:00 Ascorbic Acid (Vitamin C) 500 mg BID PO Last administered on 03/06/19 09:18; Admin Dose 500 MG; Start 02/24/19 at 21:00; Stop 03/26/19 at 20:59 Ferrous Sulfate (Ferrous Sulfate (Ec)) 325 mg BID PO Last administered on 03/06/19 09:19; Admin Dose 325 MG; Start 02/24/19 at 21:00; Stop 03/26/19 at 20:59 Spironolactone (Aldactone) 50 mg BID DIURETICS PO Last administered on 03/06/19 06:53; Admin Dose 50 MG; Start 02/27/19 at 18:00 Docusate Sodium (Colace) 200 mg BID PO Last administered on 03/06/19 09:18; Admin Dose 200 MG; Start 02/27/19 at 21:00 Bismuth Subsalicylate (Pepto-Bismol) 30 ml QID PO Last administered on 03/06/19 12:28; Admin Dose 30 ML; Start 02/27/19 at 21:00 Cefepime HCl 50 ml @ 100 mls/hr Q12 IVPB Last administered on 03/06/19 09:36; Admin Dose 100 MLS/HR; Start 03/01/19 at 13:00; Stop 03/08/19 at 12:59 Insulin Glargine (Lantus) 3 units DAILY@0930 SC Last administered on 03/06/19 09:34; Admin Dose 3 UNITS; Start 03/02/19 at 09:30 Ondansetron HCl (Zofran Inj) 4 mg Q4 PRN IV NAUSEA/VOMITING Last administered on 03/04/19 05:50; Admin Dose 4 MG; Start 03/04/19 at 03:30 Metoclopramide HCl (Reglan) 10 mg Q6H PRN IV NAUSEA Last administered on 03/04/19 03:22; Admin Dose 10 MG; Start 03/04/19 at 03:30 Insulin Aspart (Novolog Insulin Pen) 3 unit WITH MEALS SC Last administered on 03/06/19 11:33; Admin Dose 3 UNIT; Start 03/04/19 at 17:55 Furosemide (Lasix) 20 mg BID PO Last administered on 03/06/19 09:19; Admin Dose 20 MG; Start 03/05/19 at 21:00 KIRK AREVALO MD March 06, 2019 12:49
--- NOTE | 2019-03-06 13:30 | CONS ---
Consult Date/Type/Reason Admit Date/Time Feb 06, 2019 at 14:46 Initial Consult Date 03/03/19 Type of Consultation: Rheumatology Requesting Provider: RODRIGUEZ DOTY Date/Time of Note DATE: 03/06/19 TIME: 13:23 Subjective No new complaints. No fever several days. Objective Vitals Vital Signs Date Temp Pulse Resp B/P (MAP) Pulse Ox O2 O2 Flow FiO2 Time Delivery Rate 03/06/19 129 12:00 03/06/19 97.6 19 101/64 91 Room Air 11:18 (76) 03/06/19 2.0 10:05 Intake and Output 03/05/19 03/05/19 03/06/19 1515:00 23:00 07:00 IntakeIntake Total 600 ml OutputOutput Total 1200 ml BalanceBalance -600 ml Exam GENERAL: NAD at present. alert. SKIN: Without acute lesions. HEENT: Without acute oral or ocular lesions. NECK: Without definite masses noted. Supple. CHEST: Clear to auscultation. HEART: Regular rate and rhythm. Proximal and distal pulses are full. ABDOMEN: Soft without masses or tenderness noted. EXTREMITIES: Joints with good range of motion without synovitis. NEUROLOGIC: Grossly intact. Results/Medications Result Diagram: 03/04/19 0746 03/05/19 0558 Results 24 hrs Laboratory Tests Test 03/05/19 17:14 03/05/19 21:16 03/06/19 08:32 03/06/19 11:29 Bedside Glucose 96 87 118 122 Test 03/06/19 12:11 03/06/19 12:31 Lab Scanned Report REFERENCE LAB REFERENCE LAB Home Meds Active Scripts Insulin Glargine* (Lantus*) 100 Unit/Ml Soln, 15 UNIT SC DAILY, #14 VIAL Prov:LONA,FRANCISCAATITO M. 02/11/19 Insulin Aspart* (Novolog Insulin Pen*) 100 Unit/Ml Soln, 7 UNIT SC WITH MEALS, #7 VIAL Prov:LONA,BOLATITO M. 02/11/19 Sennosides* (Senna Lax*) 8.6 Mg Tablet, 2 TAB PO BID, #120 TAB Prov:LONA,BOLATITO M. 02/11/19 Clarithromycin* (Clarithromycin*) 500 Mg Tablet, 500 MG PO BID for 5 Days, #10 TAB Prov:LONA,BOLATITO M. 02/11/19 Amoxicillin* (Amoxicillin*) 500 Mg Cap, 1000 MG PO BID for 5 Days, #10 CAP Prov:YOLI ZAMORANO. 02/11/19 Methimazole* (Methimazole*) 10 Mg Tablet, 30 MG PO BID, #180 TAB 1 Refill Prov:YOLI ZAMORANO. 02/11/19 Reported Medications Pantoprazole* (Pantoprazole*) 40 Mg Tablet.dr, 40 MG PO AC BREAKFAST, TAB 02/06/19 Simvastatin* (Zocor*) 20 Mg Tablet, 20 MG PO QHS, #30 TAB 01/16/19 Lisinopril* (Lisinopril*) 2.5 Mg Tablet, 2.5 MG PO DAILY, #30 TAB 01/16/19 Propranolol Hcl* (Propranolol Hcl*) 40 Mg Tablet, 80 MG PO TID, TAB 01/16/19 Medications Current Medications IV Flush (NS 3 ml) 3 ml PER PROTOCOL IV ; Start 02/06/19 at 15:00 Acetaminophen (Tylenol Tab) 650 mg Q6H PRN PO .PAIN 1-3 OR TEMP Last administered on 03/03/19at 06:28; Admin Dose 650 MG; Start 02/06/19 at 15:00 Atorvastatin Calcium (Lipitor) 10 mg DAILY@21 PO Last administered on 03/05/19at 21:22; Admin Dose 10 MG; Start 02/06/19 at 21:00 Miscellaneous Information 1 ea NOTE XX ; Start 02/06/19 at 16:00 Glucose (Glutose) 15 gm Q15M PRN PO DECREASED GLUCOSE; Start 02/06/19 at 16:00 Glucose (Glutose) 22.5 gm Q15M PRN PO DECREASED GLUCOSE; Start 02/06/19 at 16:00 Dextrose (D50w Syringe) 25 ml Q15M PRN IV DECREASED GLUCOSE Last administered on 02/26/19at 17:21; Admin Dose 25 ML; Start 02/06/19 at 16:00 Dextrose (D50w Syringe) 50 ml Q15M PRN IV DECREASED GLUCOSE; Start 02/06/19 at 16:00 Glucagon (Glucagen) 1 mg Q15M PRN IM DECREASED GLUCOSE; Start 02/06/19 at 16:00 Glucose (Glutose) 15 gm Q15M PRN BUCCAL DECREASED GLUCOSE Last administered on 02/22/19 23:24; Admin Dose 15 GM; Start 02/06/19 at 16:00 Pantoprazole (Protonix Tab) 40 mg BID@0600,1800 PO Last administered on 03/06/19 06:53; Admin Dose 40 MG; Start 02/07/19 at 06:00 Miscellaneous Information (* Miscellaneous Pharmacy Order) Treatment of Hypogly cemia: 1.BG 51... Per protocol XX ; Start 02/08/19 at 09:00 Dextrose (D50w Syringe) 25 ml Q15M PRN IV .DECREASED GLUCOSE; Start 02/08/19 at 09:00 Dextrose (D50w Syringe) 50 ml Q15M PRN IV .DECREASED GLUCOSE; Start 02/08/19 at 09:00 Methimazole (Tapazole) 30 mg BID PO Last administered on 03/06/19 09:18; Admin Dose 30 MG; Start 02/08/19 at 13:30 Heparin Sodium (Porcine) (Heparin (5000 Units/1ml)) 5,000 unit BID SC Last administered on 02/14/19 22:48; Admin Dose 5,000 UNIT; Start 02/11/19 at 09:00; Status Hold Acetaminophen/ Hydrocodone Bitart ([place] (5/325)) 1 tab Q6H PRN PO MODERATE PAIN LEVEL 4-6 Last administered on 02/23/19at 14:08; Admin Dose 1 TAB; Start 02/12/19 at 09:00 Senna (Senokot) 2 tab BID PO Last administered on 03/06/19 09:18; Admin Dose 2 TAB; Start 02/16/19 at 21:00 Morphine Sulfate (morphine) 2 mg Q4H PRN IV SEVERE PAIN LEVEL 7-10 Last administered on 03/06/19 09:59; Admin Dose 2 MG; Start 02/22/19 at 09:00 Insulin Aspart (Novolog Insulin Pen) NOVOLOG *MILD* ALGORITHM WITH MEALS BEDTIME SC ; Start 02/23/19 at 11:50 Midodrine (Proamatine) 10 mg TID@09,13,17 PO Last administered on 03/06/19 12:28; Admin Dose 10 MG; Start 02/23/19 at 13:00 Ascorbic Acid (Vitamin C) 500 mg BID PO Last administered on 03/06/19 09:18; Admin Dose 500 MG; Start 02/24/19 at 21:00; Stop 03/26/19 at 20:59 Ferrous Sulfate (Ferrous Sulfate (Ec)) 325 mg BID PO Last administered on 09:19; Admin Dose 325 MG; Start 02/24/19 at 21:00; Stop 03/26/19 at 20:59 Spironolactone (Aldactone) 50 mg BID DIURETICS PO Last administered on 03/06/19 06:53; Admin Dose 50 MG; Start 02/27/19 at 18:00 Docusate Sodium (Colace) 200 mg BID PO Last administered on 03/06/19 09:18; Admin Dose 200 MG; Start 02/27/19 at 21:00 Bismuth Subsalicylate (Pepto-Bismol) 30 ml QID PO Last administered on 03/06/19 12:28; Admin Dose 30 ML; Start 02/27/19 at 21:00 Cefepime HCl 50 ml @ 100 mls/hr Q12 IVPB Last administered on 03/06/19 09:36; Admin Dose 100 MLS/HR; Start 03/01/19 at 13:00; Stop 03/08/19 at 12:59 Insulin Glargine (Lantus) 3 units DAILY@0930 SC Last administered on 03/06/19 09:34; Admin Dose 3 UNITS; Start 03/02/19 at 09:30 Ondansetron HCl (Zofran Inj) 4 mg Q4 PRN IV NAUSEA/VOMITING Last administered on 03/04/19 05:50; Admin Dose 4 MG; Start 03/04/19 at 03:30 Metoclopramide HCl (Reglan) 10 mg Q6H PRN IV NAUSEA Last administered on 03/04/19 03:22; Admin Dose 10 MG; Start 03/04/19 at 03:30 Insulin Aspart (Novolog Insulin Pen) 3 unit WITH MEALS SC Last administered on 03/06/19 11:33; Admin Dose 3 UNIT; Start 03/04/19 at 17:55 Furosemide (Lasix) 20 mg BID PO Last administered on 03/06/19 09:19; Admin Dose 20 MG; Start 03/05/19 at 21:00 Assessment/Plan Assessment/Plan (Daily) ASSESSMENT: 1. Fever of unknown origin, along with marked fatigue of unclear etiology. Infection workup until now has been basically negative. MADDIE negative for vegetations.. The patient has a negative MATI and rheumatoid factor,and ANCA panel also negative. There are abnormalities in Karyotype evaluation with unclear significance to me at present. 2. Hyperthyroidism. 3. Status post epididymitis. 4. Positive QuantiFERON Gold a few months ago with negative repeat and no evidence of active tuberculosis at present. 5. Cirrhosis. 6. Iron deficiency anemia and possibly related to bone marrow suppression as well, unclear etiology 7. Leukopenia and thrombocytopenia, likely due to cirrhosis. RECOMMENDATIONS: 1. Would consider empiric prednisone at 20 mg daily initially. I discussed with Endo and ID. Several ID studies still pending, that may be available soon. Will wait to start steroids until those results return, although if continues afebrile may wait to start the prednisone as there is no firm evidence of vasculitis and unclear what parameters to follow. 2. Will recheck ESR and C- RP tomorrow. LISSETT WEST MD March 06, 2019 13:30
--- NOTE | 2019-03-06 17:56 | CONS ---
Assessment/Plan Assessment/Plan Hospital Course (Demo Recall) #Anemia -Anemia workup is most consistent with iron deficiency given the iron saturation of 6%. pt received 5 days of IV iron -Hg stable at 8.8 on 03/04. has not yet been rechecked -past anemia workup reveals the following: -normal SPEP which rules out monoclonal gammopathy -normal Hg electrophoresis which rules on beta thalassemia -vitamin b12 and folate are wnl -haptoglobin normal making hemolysis unlikely -f/u bone marrow bx to ensure there are no other contributing factors to the wo rsening anemia thrombocytopenia. Flow cytometry with mild atypia noted from last admission #Thrombocytopenia -platelets slightly lower at 112 -this may be secondary to medication effect. Methimazole and zosyn can both cause worsening thrombocytopenia. Although the platelet drop may have preceded when these meds were given -HIT negative -no evidence of TTP -DIC unlikely given normal fibrinogen -bone marrow bx is most consistent with thrombocytopenia from peripheral destruction rather than an inherent bone marrow issue #Hyperthyroidism -management per endocrinology Thank you for the opportunity to participate in this patients care A total of 40 minutes of face to face time was spent speaking with the patient, of which greater than 50% was spent in counseling and coordination of care and the detailed question and answer session. Consultation Date/Type/Reason Admit Date/Time Feb 06, 2019 at 14:46 Initial Consult Date 02/18/19 Type of Consult oncology Reason for Consultation anemia Requesting Provider: RODRIGUEZ DOTY Date/Time of Note DATE: 03/06/19 TIME: 17:54 24 HR Interval Summary Free Text/Dictation no acute overnight events Exam/Review of Systems Exam Vitals Vital Signs Date Temp Pulse Resp B/P (MAP) Pulse Ox O2 O2 Flow FiO2 Time Delivery Rate 03/06/19 122 16:00 03/06/19 97.6 18 102/61 92 Room Air 15:47 (75) 03/06/19 2.0 10:05 Intake and Output 03/05/19 03/05/19 03/06/19 1515:00 23:00 07:00 IntakeIntake Total 600 ml OutputOutput Total 1200 ml BalanceBalance -600 ml Constitutional: frail Psych: depression Head: normocephalic Eyes: nl conjunctiva ENMT: nl external ears & nose Neck: supple Respiratory: clear to auscultation Cardiovascular: regular rate and rhythm Gastrointestinal: soft Musculoskeletal: nl extremities to inspection Extremities: normal pulses Neurological: AUTOMATION TESTER II-XII intact Results Result Diagram: 03/04/19 0746 03/05/19 0558 Results 24hrs Laboratory Tests Test 03/05/19 21:16 03/06/19 08:32 03/06/19 11:29 03/06/19 12:11 Bedside Glucose 87 118 122 Lab Scanned Report REFERENCE LAB Test 03/06/19 12:31 03/06/19 17:22 Lab Scanned Report REFERENCE LAB Bedside Glucose 139 Medications Medication Current Medications IV Flush (NS 3 ml) 3 ml PER PROTOCOL IV ; Start 02/06/19 at 15:00 Acetaminophen (Tylenol Tab) 650 mg Q6H PRN PO .PAIN 1-3 OR TEMP Last administe red on 03/03/19at 06:28; Admin Dose 650 MG; Start 02/06/19 at 15:00 Atorvastatin Calcium (Lipitor) 10 mg DAILY@21 PO Last administered on 03/05/19at 21:22; Admin Dose 10 MG; Start 02/06/19 at 21:00 Miscellaneous Information 1 ea NOTE XX ; Start 02/06/19 at 16:00 Glucose (Glutose) 15 gm Q15M PRN PO DECREASED GLUCOSE; Start 02/06/19 at 16:00 Glucose (Glutose) 22.5 gm Q15M PRN PO DECREASED GLUCOSE; Start 02/06/19 at 16:00 Dextrose (D50w Syringe) 25 ml Q15M PRN IV DECREASED GLUCOSE Last administered on 02/26/19at 17:21; Admin Dose 25 ML; Start 02/06/19 at 16:00 Dextrose (D50w Syringe) 50 ml Q15M PRN IV DECREASED GLUCOSE; Start 02/06/19 at 16:00 Glucagon (Glucagen) 1 mg Q15M PRN IM DECREASED GLUCOSE; Start 02/06/19 at 16:00 Glucose (Glutose) 15 gm Q15M PRN BUCCAL DECREASED GLUCOSE Last administered on 02/22/19at 23:24; Admin Dose 15 GM; Start 02/06/19 at 16:00 Pantoprazole (Protonix Tab) 40 mg BID@0600,1800 PO Last administered on 03/06/19at 17:20; Admin Dose 40 MG; Start 02/07/19 at 06:00 Miscellaneous Information (* Miscellaneous Pharmacy Order) Treatment of Hypoglycemia: 1.BG 51... Per protocol XX ; Start 02/08/19 at 09:00 Dextrose (D50w Syringe) 25 ml Q15M PRN IV .DECREASED GLUCOSE; Start 02/08/19 at 09:00 Dextrose (D50w Syringe) 50 ml Q15M PRN IV .DECREASED GLUCOSE; Start 02/08/19 at 09:00 Methimazole (Tapazole) 30 mg BID PO Last administered on 03/06/19 09:18; Admin Dose 30 MG; Start 02/08/19 at 13:30 Heparin Sodium (Porcine) (Heparin (5000 Units/1ml)) 5,000 unit BID SC Last administered on 02/14/19 22:48; Admin Dose 5,000 UNIT; Start 02/11/19 at 09:00; Status Hold Acetaminophen/ Hydrocodone Bitart ([place] (5/325)) 1 tab Q6H PRN PO MODERATE PAIN LEVEL 4-6 Last administered on 02/23/19at 14:08; Admin Dose 1 TAB; Start 02/12/19 at 09:00 Senna (Senokot) 2 tab BID PO Last administered on 03/06/19 09:18; Admin Dose 2 TAB; Start 02/16/19 at 21:00 Morphine Sulfate (morphine) 2 mg Q4H PRN IV SEVERE PAIN LEVEL 7-10 Last administered on 03/06/19 09:59; Admin Dose 2 MG; Start 02/22/19 at 09:00 Insulin Aspart (Novolog Insulin Pen) NOVOLOG *MILD* ALGORITHM WITH MEALS BEDTIME SC ; Start 02/23/19 at 11:50 Midodrine (Proamatine) 10 mg TID@,13,17 PO Last administered on 03/06/19 17:20; Admin Dose 10 MG; Start 02/23/19 at 13:00 Ascorbic Acid (Vitamin C) 500 mg BID PO Last administered on 03/06/19 09:18; Admin Dose 500 MG; Start 02/24/19 at 21:00; Stop 03/26/19 at 20:59 Ferrous Sulfate (Ferrous Sulfate (Ec)) 325 mg BID PO Last administered on 03/06/19 09:19; Admin Dose 325 MG; Start 02/24/19 at 21:00; Stop 03/26/19 at 20:59 Spironolactone (Aldactone) 50 mg BID DIURETICS PO Last administered on 03/06/19 17:20; Admin Dose 50 MG; Start 02/27/19 at 18:00 Docusate Sodium (Colace) 200 mg BID PO Last administered on 03/06/19 09:18; Admin Dose 200 MG; Start 02/27/19 at 21:00 Bismuth Subsalicylate (Pepto-Bismol) 30 ml QID PO Last administered on 03/06/19 17:17; Admin Dose 30 ML; Start 02/27/19 at 21:00 Cefepime HCl 50 ml @ 100 mls/hr Q12 IVPB Last administered on 03/06/19 09:36; Admin Dose 100 MLS/HR; Start 03/01/19 at 13:00; Stop 03/08/19 at 12:59 Insulin Glargine (Lantus) 3 units DAILY@0930 SC Last administered on 03/06/19 09:34; Admin Dose 3 UNITS; Start 03/02/19 at 09:30 Ondansetron HCl (Zofran Inj) 4 mg Q4 PRN IV NAUSEA/VOMITING Last administered on 03/04/19 05:50; Admin Dose 4 MG; Start 03/04/19 at 03:30 Metoclopramide HCl (Reglan) 10 mg Q6H PRN IV NAUSEA Last administered on 03/04/19 03:22; Admin Dose 10 MG; Start 03/04/19 at 03:30 Insulin Aspart (Novolog Insulin Pen) 3 unit WITH MEALS SC Last administered on 03/06/19 17:26; Admin Dose 3 UNIT; Start 03/04/19 at 17:55 Furosemide (Lasix) 20 mg BID PO Last administered on 03/06/19 09:19; Admin Dose 20 MG; Start 03/05/19 at 21:00 HOLDEN CROWE M.D. March 06, 2019 17:56
[2019-03-06] MEDS: ATORVASTATIN 10 MG TAB PO SCH (20:35)
[2019-03-07] VITALS (11 sets, daily range): BP systolic 88–109; BP diastolic 60–70; PULSE 111–122; RESP 16–18
[2019-03-07] MEDS: morphine 2 MG INJ IV PRN (02:28)
[2019-03-07] MEDS: PANTOPRAZOLE (EC) 40 MG TAB PO SCH ×2 (05:36→18:37)
[2019-03-07] MEDS: SPIRONOLACTONE 50 MG TAB PO SCH ×2 (05:36→18:35)
[2019-03-07] MEDS: INSULIN ASPART [NOVOLOG] 3 ML PEN SC SCH ×6 (07:55→17:01)
[2019-03-07] MEDS: DOCUSATE SODIUM 100 MG CAP PO SCH (08:16)
[2019-03-07] MEDS: ASCORBIC ACID 500 MG TAB PO SCH (08:16)
[2019-03-07] MEDS: FERROUS SULFATE (EC) 325 MG TAB PO SCH (08:16)
[2019-03-07] MEDS: FUROSEMIDE 20 MG TAB PO SCH (08:16)
[2019-03-07] MEDS: SENNA TAB PO SCH (08:16)
[2019-03-07] MEDS: CEFEPIME 1GM/50 ML (PMX) 50 ML IVPB SCH (08:17)
[2019-03-07] MEDS: BISMUTH SUBSALICYLATE 240 ML BTL PO SCH ×3 (08:17→16:45)
[2019-03-07] MEDS: MIDODRINE 5 MG TAB PO SCH ×3 (08:20→18:35)
[2019-03-07] MEDS ORDERED: MAGNESIUM SULFATE 2 GM/50 ML 50 ML IVPB ONE (09:00)
--- NOTE | 2019-03-07 09:26 | PN ---
DATE: 03/07/2019 SUBJECTIVE: The patient is stable, no events overnight. The patient continues to be tachycardic. OBJECTIVE: VITAL SIGNS: Blood pressure is 99/63, respiration 18, pulse 118, temperature 97.5. HEENT: Head is normocephalic. NECK: Supple. HEART: Regular rate. LUNGS: Show diminished breath sounds at the base. ABDOMEN: Soft, nontender to palpation without rebound or guarding. EXTREMITIES: Negative for clubbing, cyanosis, no edema. DERMATOLOGIC: No rashes. MUSCULOSKELETAL: No joint effusion. NEUROLOGIC: No change in exam. MEDICATIONS: Reviewed. LABORATORY DATA: Reviewed. ASSESSMENT AND PLAN: 1. Hyponatremia. Etiology is likely due to cirrhosis. The patient's sodium levels remain low but s table. Continue free water restriction, continue diuretic therapy as tolerated. 2. Volume overload secondary to cirrhosis and third spacing. Improving. Continue low-dose diuretic therapy. 3. Cirrhosis. Continue medical management. 4. Graves' disease. Continue current treatment plan. 5. Systemic inflammatory response syndrome. Etiology is unclear. Infectious workup has been negati ve. The patient's MADDIE was negative for any vegetation. The patient is status post empiric antibioti cs without clinical improvement. Vasculitis workup is ongoing by rheumatology, will follow up recomm endations. 6. Lactic acidosis, likely from hemodynamics, possible cirrhosis. Continue to monitor. 7. Tachyarrhythmia. Continue to monitor. 8. Hypomagnesemia. Continue to monitor and replete. 9. Pleural effusion, status post thoracentesis. Dictated By: DIANNA SAWYER DO NR/NTS Conf#: [id number] DID#: [id number] CC: PURVI QUIGLEY MD; KIRK AREVALO MD; EVIE TRAORE MD;*EndCC*
[2019-03-07] MEDS: METHIMAZOLE 5 MG TAB PO SCH (09:52)
[2019-03-07] MEDS: INSULIN GLARGINE [LANTus] (100 UNITS/ML) SYG SC SCH (10:03)
[2019-03-07] MEDS ORDERED: MIDO5TAB PO (12:30)
[2019-03-07] MEDS ORDERED: LAS20 PO (12:30)
[2019-03-07] MEDS ORDERED: SPIR50TA PO (12:30)
[2019-03-07] MEDS ORDERED: METH-493 PO (12:30)
[2019-03-07] MEDS ORDERED: MTF1000T PO (12:30)
--- NOTE | 2019-03-07 12:31 | PDOCDIS ---
Discharge Instructions DIAGNOSIS Discharge Diagnosis Cirrhosis fever unknown origin CONDITION [id number] Patient Condition: [id number] Stable HOME CARE INSTRUCTIONS: [id number] Diet Instructions: [id number] Y: [id number] Activity Restrictions: [id number] Slowly Increase Activity Rest between Activity FOLLOW UP/APPOINTMENTS Follow-up Plan You have to make sure you take your medications as prescribed Followup with Dr. Alvarado in the next week. he's planning to do a radioiodine ablation for you in the next 2 weeks. Also make an appointment with a liver specialist at either [facility] or [facility] to discuss management of your liver cirrhosis KIRK AREVALO MD March 07, 2019 12:31
--- NOTE | 2019-03-07 13:15 | CONS ---
Consult Date/Type/Reason Admit Date/Time Feb 06, 2019 at 14:46 Initial Consult Date 03/03/19 Type of Consultation: Rheumatology Reason for Consultation Feeling better overall. No fever for many days. Requesting Provider: RODRIGUEZ DOTY Date/Time of Note DATE: 03/07/19 TIME: 13:11 Objective Vitals Vital Signs Date Temp Pulse Resp B/P (MAP) Pulse Ox O2 O2 Flow FiO2 Time Delivery Rate 03/07/19 117 12:03 03/07/19 98.7 16 107/70 91 Nasal 4.0 11:11 (82) Cannula Intake and Output 03/06/19 03/06/19 03/07/19 1515:00 23:00 07:00 IntakeIntake Total 600 ml OutputOutput Total 900 ml BalanceBalance -300 ml Exam GENERAL: NAD at present. alert. SKIN: Without acute lesions. HEENT: Without acute oral or ocular lesions. NECK: Without definite masses noted. Supple. CHEST: Clear to auscultation. HEART: Regular rate and rhythm. Proximal and distal pulses are full. ABDOMEN: Soft without masses or tenderness noted. EXTREMITIES: Joints with good range of motion without synovitis. NEUROLOGIC: Grossly intact. Results/Medications Result Diagram: 03/07/1962103/07/19621 Results 24 hrs Laboratory Tests Test 03/06/19 17:22 03/06/19 20:27 03/07/19 06:22 03/07/19 08:14 Bedside Glucose 139 120 166 White Blood Count 6.6 Red Blood Count 4.36 L Hemoglobin 10.5 L Hematocrit 34.0 #L Mean Corpuscular 78.0 L Volume Mean Corpuscular 24.1 L Hemoglobin Mean Corpuscular 30.9 L Hemoglobin Concent Red Cell Distribution 24.0 H Width Platelet Count 86 #L Mean Platelet Volume 8.8 Immature Granulocytes 1.700 H % Neutrophils % Segmented Neutrophils 91 H % (Manual) Lymphocytes % Lymphocytes % 3 L (Manual) Monocytes % Monocytes % (Manual) 4 Eosinophils % Basophils % Metamyelocytes % 1 H (manual) Myelocytes % (Manual) 1 H Nucleated Red Blood 0.0 Cells % Immature Granulocytes 0.110 H # Neutrophils # Lymphocytes (Manual) 0.1 L Lymphocytes # Monocytes # Monocytes # (Manual) 0.2 L Eosinophils # Basophils # Metamyelocytes # 0.0 Myelocytes # 0.0 Nucleated Red Blood Cells # Platelet Estimate DECREASED Polychromasia 1+ Poikilocytosis 2+ Anisocytosis 2+ Microcytosis 2+ Erythrocyte 40.0 H Sedimentation Rate Sodium Level 127 L Potassium Level 4.7 Chloride Level 92 L Carbon Dioxide Level 28 Anion Gap 7 Blood Urea Nitrogen 13 Creatinine 0.76 Est Glomerular > 60 Filtrat Rate mL/min Glucose Level 139 Calcium Level 9.4 Phosphorus Level 3.2 Magnesium Level 1.6 L Total Bilirubin 0.5 Direct Bilirubin 0.00 Indirect Bilirubin 0.5 Aspartate Amino 106 H Transf (AST/SGOT) Alanine 16 Aminotransferase (ALT /SGPT) Alkaline Phosphatase 130 H C-Reactive Protein 5.0 H Total Protein 5.9 L Albumin 2.1 L Globulin 3.80 H Albumin/Globulin 0.55 Ratio Test 03/07/19 09:50 03/07/19 11:32 03/07/19 12:32 Bedside Glucose 166 163 Lab Scanned Report REFERENCE LAB Home Meds Active Scripts Metformin* (Glucophage*) 1,000 Mg Tablet, 1000 MG PO BID, #60 TAB 2 Refills Prov:KIRK AREVALO MD 03/07/19 Methimazole* (Methimazole*) 5 Mg Tablet, 30 MG PO BID for 20 Days, #40 TAB Prov:KIRK AREVALO MD 03/07/19 Furosemide (Lasix) 20 Mg Tab, 20 MG PO BID for 60 Days, #120 TAB 5 Refills Prov:KIRK AREVALO MD 03/07/19 Spironolactone* (Aldactone*) 50 Mg Tablet, 50 MG PO BID DIURETICS for 60 Days, #60 TAB 5 Refills Prov:KIRK AREVALO MD 03/07/19 Midodrine* (Midodrine*) 5 Mg Tablet, 10 MG PO TID@09,13,17 for 30 Days, #90 TAB 5 Refills Prov:KIRK AREVALO MD 03/07/19 Medications Current Medications IV Flush (NS 3 ml) 3 ml PER PROTOCOL IV ; Start 02/06/19 at 15:00 Acetaminophen (Tylenol Tab) 650 mg Q6H PRN PO .PAIN 1-3 OR TEMP Last administered on 03/03/19at 06:28; Admin Dose 650 MG; Start 02/06/19 at 15:00 Atorvastatin Calcium (Lipitor) 10 mg DAILY@21 PO Last administered on 03/06/19at 20:35; Admin Dose 10 MG; Start 02/06/19 at 21:00 Miscellaneous Information 1 ea NOTE XX ; Start 02/06/19 at 16:00 Glucose (Glutose) 15 gm Q15M PRN PO DECREASED GLUCOSE; Start 02/06/19 at 16:00 Glucose (Glutose) 22.5 gm Q15M PRN PO DECREASED GLUCOSE; Start 02/06/19 at 16:00 Dextrose (D50w Syringe) 25 ml Q15M PRN IV DECREASED GLUCOSE Last administered on 02/26/19at 17:21; Admin Dose 25 ML; Start 02/06/19 at 16:00 Dextrose (D50w Syringe) 50 ml Q15M PRN IV DECREASED GLUCOSE; Start 02/06/19 at 16:00 Glucagon (Glucagen) 1 mg Q15M PRN IM DECREASED GLUCOSE; Start 02/06/19 at 16:00 Glucose (Glutose) 15 gm Q15M PRN BUCCAL DECREASED GLUCOSE Last administered on 02/22/19at 23:24; Admin Dose 15 GM; Start 02/06/19 at 16:00 Pantoprazole (Protonix Tab) 40 mg BID@0600,1800 PO Last administered on 03/07/19at 05:36; Admin Dose 40 MG; Start 02/07/19 at 06:00 Miscellaneous Information (* Miscellaneous Pharmacy Order) Treatment of Hypoglycemia: 1.BG 51... Per protocol XX ; Start 02/08/19 at 09:00 Dextrose (D50w Syringe) 25 ml Q15M PRN IV .DECREASED GLUCOSE; Start 02/08/19 at 09:00 Dextrose (D50w Syringe) 50 ml Q15M PRN IV .DECREASED GLUCOSE; Start 02/08/19 at 09:00 Methimazole (Tapazole) 30 mg BID PO Last administered on 03/07/19at 09:52; Admin Dose 30 MG; Start 02/08/19 at 13:30 Heparin Sodium (Porcine) (Heparin (5000 Units/1ml)) 5,000 unit BID SC Last administered on 02/14/19at 22:48; Admin Dose 5,000 UNIT; Start 02/11/19 at 09:00; Status Hold Acetaminophen/ Hydrocodone Bitart ([place] (5/325)) 1 tab Q6H PRN PO MODERATE PAIN LEVEL 4-6 Last administered on 02/23/19 14:08; Admin Dose 1 TAB; Start 02/12/19 at 09:00 Senna (Senokot) 2 tab BID PO Last administered on 03/07/19 08:16; Admin Dose 2 TAB; Start 02/16/19 at 21:00 Morphine Sulfate (morphine) 2 mg Q4H PRN IV SEVERE PAIN LEVEL 7-10 Last administered on 03/07/19 02:28; Admin Dose 2 MG; Start 02/22/19 at 09:00 Insulin Aspart (Novolog Insulin Pen) NOVOLOG *MILD* ALGORITHM WITH MEALS BEDTIME SC ; Start 02/23/19 at 11:50 Midodrine (Proamatine) 10 mg TID@,,17 PO Last administered on 03/07/19 12:34; Admin Dose 10 MG; Start 02/23/19 at 13:00 Ascorbic Acid (Vitamin C) 500 mg BID PO Last administered on 03/07/19 08:16; Admin Dose 500 MG; Start 02/24/19 at 21:00; Stop 03/26/19 at 20:59 Ferrous Sulfate (Ferrous Sulfate (Ec)) 325 mg BID PO Last administered on 03/07/19 08:16; Admin Dose 325 MG; Start 02/24/19 at 21:00; Stop 03/26/19 at 20:59 Spironolactone (Aldactone) 50 mg BID DIURETICS PO Last administered on 03/07/19 05:36; Admin Dose 50 MG; Start 02/27/19 at 18:00 Docusate Sodium (Colace) 200 mg BID PO Last administered on 03/07/19 08:16; Admin Dose 200 MG; Start 02/27/19 at 21:00 Bismuth Subsalicylate (Pepto-Bismol) 30 ml QID PO Last administered on 03/07/19 12:34; Admin Dose 30 ML; Start 02/27/19 at 21:00 Cefepime HCl 50 ml @ 100 mls/hr Q12 IVPB Last administered on 03/07/19 08:17; Admin Dose 100 MLS/HR; Start 03/01/19 at 13:00; Stop 03/08/19 at 12:59 Insulin Glargine (Lantus) 3 units DAILY@0930 SC Last administered on 03/07/19 10:03; Admin Dose 3 UNITS; Start 03/02/19 at 09:30 Ondansetron HCl (Zofran Inj) 4 mg Q4 PRN IV NAUSEA/VOMITING Last administered on 03/04/19 05:50; Admin Dose 4 MG; Start 03/04/19 at 03:30 Metoclopramide HCl (Reglan) 10 mg Q6H PRN IV NAUSEA Last administered on 03/04/19 03:22; Admin Dose 10 MG; Start 03/04/19 at 03:30 Insulin Aspart (Novolog Insulin Pen) 3 unit WITH MEALS SC Last administered on 03/07/19 12:43; Admin Dose 3 UNIT; Start 03/04/19 at 17:55 Furosemide (Lasix) 20 mg BID PO Last administered on 03/07/19 08:16; Admin Dose 20 MG; Start 03/05/19 at 21:00 Assessment/Plan Assessment/Plan (Daily) ASSESSMENT: 1. Fever of unknown origin, along with marked fatigue of unclear etiology. Infection workup until now has been basically negative. MADDIE negative for vegetations.. The patient has a negative MATI and rheumatoid factor,and ANCA panel also negative. There are abnormalities in Karyotype evaluation with unclear significance to me at present. 2. Hyperthyroidism. 3. Status post epididymitis. 4. Positive QuantiFERON Gold a few months ago with negative repeat and no evidence of active tuberculosis at present. 5. Cirrhosis. 6. Iron deficiency anemia and possibly related to bone marrow suppression as well, unclear etiology 7. Leukopenia and thrombocytopenia, likely due to cirrhosis. RECOMMENDATIONS: 1. As there is no firm evidence of vasculitis and unclear what parameters to follow, and particularly as he has been now afebrile several days without new complaints and ESR lower, will not add steroids or other medications. . 2. Agree with discharge home at this point. LISSETT WEST MD March 07, 2019 13:15
[2019-03-07] MEDS ORDERED: METO-319 PO (16:13)
--- NOTE | 2019-03-07 16:35 | DS ---
Date/Time of Note Date/Time of Note DATE: 03/07/19 TIME: 16:31 Discharge Summary Admission/Discharge Info Admit Date/Time Feb 06, 2019 at 14:46 Discharge Date/Time Discharge Diagnosis Cirrhosis fever unknown origin Patient Condition: Stable Hospital Course Patient presented with fever, hypotension and malaise. He was initially though to have adrenal insufficiency and started on stress dose steroids. Antibiotics were also given for possible sepsis. Ray stim was performed showing adequate adrenal function and steroids were stopped. He continued to have low grade intermittent fevers that were not responsive to antibiotics. Extensive infectious workup was performed but was negative. He was found to have H Pylori infection and treated with triple therapy. He was found to have hyponatremia and treated with diuretics and salt tabs for this. He had panctyopenias and a bone marrow biopys was performed. This was without any abnormal pathology He was also found to have cirrhosis on imaging with extensive fluid retention. He underwent EGD which was negative for varices. Serologic workup for cause of cirrhosis was also negative. He was encouraged to follow up with a promotions firm accounts manager at [facility] or [facility]. He also underwent MADDIE to evaluate for possible endocarditis, there was no vegetation seen He was continued on methimazole and metoprolol for hyperthyroidism. He will follow up with Dr Alvarado in clinic this coming week for thyroid ablation Fluid overload: - Continue diuretics Cirrhosis: - EGD pending - Serologic workup pending. No major etoh history FUO/SIRS: - Abx per ID - Unclear source. Has not resolved with abx. Extensive imaging negative for malignancy or infection. Bone marrow biopsy negative. WBC scan negative pr eviously - MADDIE negative for vegetation - Vasculitis workup per rheumatology Hyperthyroid: - Off of anti-thyroidal meds per endocrine in anticipation of ablation as outpatient Tachycardia 2/2 hyperthyroid: - Metoprolol titration Cytopenias: - Flow cytometry suggested mild atypia, bone marrow biopsy wnl. LDH very elevated of unclear significance DMII: - Basal/bolus insulin Hyponatremia: - Chronic from cirrhosis - Started on salt tabs, FW restrition H Pylori infection: - s/p 3x therapy per ID Discharge plan: To home when stable Home Meds Active Scripts Metoprolol Succinate* (Toprol XL*) 50 Mg Tab.er.24h, 50 MG PO DAILY for 30 Days, #30 TAB Prov:KIRK AREVALO MD 03/07/19 Metformin* (Glucophage*) 1,000 Mg Tablet, 1000 MG PO BID, #60 TAB 2 Refills Prov:KIRK AREVALO MD 03/07/19 Methimazole* (Methimazole*) 5 Mg Tablet, 30 MG PO BID for 20 Days, #40 TAB Prov:KIRK AREVALO MD 03/07/19 Furosemide (Lasix) 20 Mg Tab, 20 MG PO BID for 60 Days, #120 TAB 5 Refills Prov:KIRK AREVALO MD 03/07/19 Spironolactone* (Aldactone*) 50 Mg Tablet, 50 MG PO BID DIURETICS for 60 Days, #60 TAB 5 Refills Prov:KIRK AREVALO MD 03/07/19 Midodrine* (Midodrine*) 5 Mg Tablet, 10 MG PO TID@09,13,17 for 30 Days, #90 TAB 5 Refills Prov:KIRK AREVALO MD 03/07/19 Follow-up Plan You have to make sure you take your medications as prescribed Followup with Dr. Alvarado in the next week. he's planning to do a radioiodine ablation for you in the next 2 weeks. Also make an appointment with a liver specialist at either [facility] or [facility] to discuss management of your liver cirrhosis Primary Care Provider Not On Staff Doctor Pending Labs Laboratory Tests Test 03/06/19 17:22 03/06/19 20:27 03/07/19 06:22 03/07/19 08:14 Bedside 139 120 166 Glucose mg/dL (70-220) mg/dL (70-220) mg/dL (70-220) White Blood 6.6 Count 10^3/ul (4.8-1 0.8) Red Blood 4.36 Count 10^6/ul (4.70- 6.10) Hemoglobin 10.5 g/dl (14.0-18. 0) Hematocrit 34.0 % (42.0-52.0) Mean 78.0 Corpuscular fl (82.0-101.0 Volume ) Mean 24.1 Corpuscular pg (29.0-33.0) Hemoglobin Mean 30.9 Corpuscular g/dl (32.0-37. Hemoglobin Conc 0) ent Red Cell 24.0 Distribution % (11.5-14.5) Width Platelet Count 86 10^3/UL (140-4 15) Mean Platelet 8.8 Volume fl (7.4-10.4) Immature 1.700 Granulocytes % % (0.001-0.429 ) Neutrophils % % (39.0-77.0) Segmented 91 % (39-77) Neutrophils % (Manual) Lymphocytes % % (15.0-51.0) Lymphocytes % 3 % (15-51) (Manual) Monocytes % % (0.0-11.0) Monocytes % 4 % (0-11) (Manual) Eosinophils % % (0.0-7.0) Basophils % % (0.0-2.0) Metamyelocytes 1 % (0-0) % (manual) Myelocytes % 1 % (0-0) (Manual) Nucleated Red 0.0 Blood Cells % /100WBC (0.0-0 .0) Immature 0.110 Granulocytes # 10^3/ul (0.0-0 .031) Neutrophils # 10^3/ul (1.6-7 .5) Lymphocytes 0.1 (Manual) 10^3/ul (0.8-2 .9) Lymphocytes # 10^3/ul (0.8-2 .9) Monocytes # 10^3/ul (0.3-0 .9) Monocytes # 0.2 (Manual) 10^3/ul (0.3-0 .9) Eosinophils # 10^3/ul (0.0-0 .5) Basophils # 10^3/ul (0.0-0 .1) Metamyelocytes 0.0 # 10^3/ul (0.0-0 .0) Myelocytes # 0.0 10^3/ul (0.0-0 .0) Nucleated Red 10^3/ul (0.0-0 Blood Cells # .0) Platelet DECREASED Estimate Polychromasia 1+ (0-0) Poikilocytosis 2+ (0-0) Anisocytosis 2+ (0-0) Microcytosis 2+ (0-0) Erythrocyte 40.0 Sedimentation mm/Hr (0-20) Rate Sodium Level 127 mmol/L (135-14 4) Potassium 4.7 Level mmol/L (3.5-5. 1) Chloride Level 92 mmol/L (97-110 ) Carbon Dioxide 28 Level mmol/L (21-31) Anion Gap 7 (5-13) Blood Urea 13 Nitrogen mg/dl (7-20) Creatinine 0.76 mg/dl (0.61-1. 24) Est Glomerular > 60 Filtrat mL/min (>60) Rate mL/min Glucose Level 139 mg/dl (70-220) Calcium Level 9.4 mg/dl (8.4-10. 2) Phosphorus 3.2 Level mg/dl (2.5-4.9 ) Magnesium 1.6 Level mg/dl (1.7-2.5 ) Total 0.5 Bilirubin mg/dl (0.2-1.3 ) Direct 0.00 Bilirubin mg/dl (0.00-0. 20) Indirect 0.5 Bilirubin mg/dl (0-1.1) Aspartate Amino 106 Transf (AST/SGO IU/L (15-46) T) Alanine 16 Aminotransferas IU/L (13-69) e (ALT/SGPT) Alkaline 130 Phosphatase IU/L (42-121) C-Reactive 5.0 Protein mg/dl (0.0-0.9 ) Total Protein 5.9 g/dl (6.1-8.1) Albumin 2.1 g/dl (3.3-4.9) Globulin 3.80 g/dl (1.3-3.2) Albumin/Globuli 0.55 n Ratio Test 03/07/19 09:50 03/07/19 11:32 03/07/19 12:32 Bedside 166 163 Glucose mg/dL (70-220) mg/dL (70-220) Lab Scanned REFERENCE Report LAB [id number] KIRK AREVALO MD March 07, 2019 16:35
--- NOTE | 2019-03-07 18:20 | CONS ---
Assessment/Plan Assessment/Plan Hospital Course (Demo Recall) assessment/impression # recurrent fever, sepsis vs. SIRS of unknown etiology - persistent bilateral epididymitis, although ultrasound on 02/27/2019 showed improvement - persistent enterobacter in urine 02/27/2019, urine for gonorrhea and chlamydia was negative on 02/21/2019, urine culture <10K citrobacter and <10K ashley on 02/13/2019 - procalcitonin unremarkable: <0.1, 0.11, 0.2, 0.11, 0.14 - elevated ESR, lactic acid, C reactive protein - extraction of lower teeth prior to the start of fever according to Pt's daughter - past exposure to EBV - The following ID work up was negative: HIV screening, HIV viral load, HCV viral load, cryptococcus antigen, mono, Dengue serology, blood smear for malaria, resp virus panel, MTB complex, HSV 1&2 by PCR, CMV, WBC scan on 12/18/2018, acute hepatitis panel, stool O&P, R. typhi IgM/IgG, pleural fluid (MTB complex NAAT/PCR probe, cultures of bacteria, fungi and AFB) - the following ID workup on the bone marrow was negative: immunohistochemical stain for CMV, EBV, HSV and HHV8. Giemsa stain for toxo and leishmania - Transesophageal echo on 03/05/2019 was negative for valvular vegetation - the following non-ID workup was negative too: rheumatoid factor, MATI, HIT panel, thyroglobulin, thyroid antimicrosomal # heme - s/p bone marrow biopsy 02/19/19, no e/o leukemia/lymphoma per conversation with Dr. Carvajal on 02/28/2019 - the bone marrow was negative for AFB stain and Giemsa stain per conversation with Dr. Carvajal on 03/05/2019 - gastritis due to H. pylori: diagnosed by H. 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 AFB smear of sputum was negative on 12/11/2018, 12/13/2018, and 12/19/2018; repeat QTB gold negative on 12/16/2018 - mod-large pleural effusions per CT chest 02/22/19 - s/p thoracentesis on 02/28/2019, protein <2, LDH 512, an exudative effusion. MTB complex NAAT/PCR probe, cultures of bacteria, fungi and AFB negative so far. I ordered cytology, O&P on his pleural effusion but they were not performed. No reasons posted - h/o ESBL+klebsiella in sputum culture on 12/15/2018, likely colonizer # endo, cardiac and GI - Graves disease with exophthalmos - Hyperthyroidism - on Tapazole - T2DM - Hgb A1c 5.6% - SVT on 02/17/2019, s/p adenosine - ESLD (cirrhosis seen on [facility]), probably due to alcoholic hepatitis - alcoholic hepatitis, Pt stopped drinking heavily until 20 years ago, according to Pt's daughter - EGD on 03/04/2019 was negative for esophageal varices revised recommendations: - pending results: hepatitis B viral load, IgD level, Leishmania IgG - monitor Pt off systemic antibiotics management d/w Pt, his , sons and RN. Discussed with Dr. Carvajal on 03/06/2019 Consultation Date/Type/Reason Admit Date/Time Feb 06, 2019 at 14:46 Initial Consult Date 02/18/19 Type of Consult ID Requesting Provider: RODRIGUEZ DOTY Date/Time of Note DATE: 03/07/19 TIME: 18:13 24 HR Interval Summary Constitutional: other (want to go home) Detailed Summary Eyes: no complaints ENT: no complaints Respiratory: no complaints Cardiovascular: no complaints Gastrointestinal: no complaints Genitourinary: other ("it is OK") Musculoskeletal: no complaints Skin: no complaints Neurologic: no complaints Exam/Review of Systems Exam Vitals Vital Signs Date Temp Pulse Resp B/P (MAP) Pulse Ox O2 O2 Flow FiO2 Time Delivery Rate 03/07/19 109/66 16:41 (80) 03/07/19 18 98 Nasal 4.0 16:13 Cannula 03/07/19 112 16:11 03/07/19 98.7 15:43 Intake and Output 03/06/19 03/06/19 03/07/19 1515:00 23:00 07:00 IntakeIntake Total 600 ml OutputOutput Total 900 ml BalanceBalance -300 ml Constitutional: alert, frail Psych: no complaints, nl mood/affect Head: other (bitemporal wasting) Eyes: nl conjunctiva, nl lids ENMT: nl external ears & nose, nl nasal mucosa & septum Neck: other (not swollen) Respiratory: clear to auscultation, normal air movement Cardiovascular: regular rate and rhythm, nl pulses Gastrointestinal: soft, non-tender Genitourinary - Male: nl scrotum Musculoskeletal: nl extremities to inspection Extremities: No edema Neurological: nl mental status Skin: nl turgor; No rash or lesions Results Result Diagram: 03/07/1962103/07/19621 Results 24hrs Laboratory Tests Test 03/06/19 20:27 03/07/19 06:22 03/07/19 08:14 03/07/19 09:50 Bedside Glucose 120 166 166 White Blood Count 6.6 Red Blood Count 4.36 L Hemoglobin 10.5 L Hematocrit 34.0 #L Mean Corpuscular 78.0 L Volume Mean Corpuscular 24.1 L Hemoglobin Mean Corpuscular 30.9 L Hemoglobin Concent Red Cell Distribution 24.0 H Width Platelet Count 86 #L Mean Platelet Volume 8.8 Immature Granulocytes 1.700 H % Neutrophils % Segmented Neutrophils 91 H % (Manual) Lymphocytes % Lymphocytes % 3 L (Manual) Monocytes % Monocytes % (Manual) 4 Eosinophils % Basophils % Metamyelocytes % 1 H (manual) Myelocytes % (Manual) 1 H Nucleated Red Blood 0.0 Cells % Immature Granulocytes 0.110 H # Neutrophils # Lymphocytes (Manual) 0.1 L Lymphocytes # Monocytes # Monocytes # (Manual) 0.2 L Eosinophils # Basophils # Metamyelocytes # 0.0 Myelocytes # 0.0 Nucleated Red Blood Cells # Platelet Estimate DECREASED Polychromasia 1+ Poikilocytosis 2+ Anisocytosis 2+ Microcytosis 2+ Erythrocyte 40.0 H Sedimentation Rate Sodium Level 127 L Potassium Level 4.7 Chloride Level 92 L Carbon Dioxide Level 28 Anion Gap 7 Blood Urea Nitrogen 13 Creatinine 0.76 Est Glomerular > 60 Filtrat Rate mL/min Glucose Level 139 Calcium Level 9.4 Phosphorus Level 3.2 Magnesium Level 1.6 L Total Bilirubin 0.5 Direct Bilirubin 0.00 Indirect Bilirubin 0.5 Aspartate Amino 106 H Transf (AST/SGOT) Alanine 16 Aminotransferase (ALT /SGPT) Alkaline Phosphatase 130 H C-Reactive Protein 5.0 H Total Protein 5.9 L Albumin 2.1 L Globulin 3.80 H Albumin/Globulin 0.55 Ratio Test 03/07/19 11:32 03/07/19 12:32 03/07/19 16:43 Lab Scanned Report REFERENCE LAB Bedside Glucose 163 176 Medications Medication Current Medications IV Flush (NS 3 ml) 3 ml PER PROTOCOL IV ; Start 02/06/19 at 15:00 Acetaminophen (Tylenol Tab) 650 mg Q6H PRN PO .PAIN 1-3 OR TEMP Last administered on 03/03/19at 06:28; Admin Dose 650 MG; Start 02/06/19 at 15:00 Atorvastatin Calcium (Lipitor) 10 mg DAILY@21 PO Last administered on 03/06/19at 20:35; Admin Dose 10 MG; Start 02/06/19 at 21:00 Miscellaneous Information 1 ea NOTE XX ; Start 02/06/19 at 16:00 Glucose (Glutose) 15 gm Q15M PRN PO DECREASED GLUCOSE; Start 02/06/19 at 16:00 Glucose (Glutose) 22.5 gm Q15M PRN PO DECREASED GLUCOSE; Start 02/06/19 at 16:00 Dextrose (D50w Syringe) 25 ml Q15M PRN IV DECREASED GLUCOSE Last administered on 02/26/19at 17:21; Admin Dose 25 ML; Start 02/06/19 at 16:00 Dextrose (D50w Syringe) 50 ml Q15M PRN IV DECREASED GLUCOSE; Start 02/06/19 at 16:00 Glucagon (Glucagen) 1 mg Q15M PRN IM DECREASED GLUCOSE; Start 02/06/19 at 16:00 Glucose (Glutose) 15 gm Q15M PRN BUCCAL DECREASED GLUCOSE Last administered on 02/22/19at 23:24; Admin Dose 15 GM; Start 02/06/19 at 16:00 Pantoprazole (Protonix Tab) 40 mg BID@0600,1800 PO Last administered on 03/07/19at 05:36; Admin Dose 40 MG; Start 02/07/19 at 06:00 Miscellaneous Information (* Miscellaneous Pharmacy Order) Treatment of Hypoglycemia: 1.BG 51... Per protocol XX ; Start 02/08/19 at 09:00 Dextrose (D50w Syringe) 25 ml Q15M PRN IV .DECREASED GLUCOSE; Start 02/08/19 at 09:00 Dextrose (D50w Syringe) 50 ml Q15M PRN IV .DECREASED GLUCOSE; Start 02/08/19 at 09:00 Methimazole (Tapazole) 30 mg BID PO Last administered on 03/07/19 09:52; Admin Dose 30 MG; Start 02/08/19 at 13:30 Heparin Sodium (Porcine) (Heparin (5000 Units/1ml)) 5,000 unit BID SC Last administered on 02/14/19 22:48; Admin Dose 5,000 UNIT; Start 02/11/19 at 09:00; Status Hold Acetaminophen/ Hydrocodone Bitart ([place] (5/325)) 1 tab Q6H PRN PO MODERATE PAIN LEVEL 4-6 Last administered on 02/23/19 14:08; Admin Dose 1 TAB; Start 02/12/19 at 09:00 Senna (Senokot) 2 tab BID PO Last administered on 03/07/19 08:16; Admin Dose 2 TAB; Start 02/16/19 at 21:00 Morphine Sulfate (morphine) 2 mg Q4H PRN IV SEVERE PAIN LEVEL 7-10 Last administered on 03/07/19 02:28; Admin Dose 2 MG; Start 02/22/19 at 09:00 Insulin Aspart (Novolog Insulin Pen) NOVOLOG *MILD* ALGORITHM WITH MEALS BEDTIME SC ; Start 02/23/19 at 11:50 Midodrine (Proamatine) 10 mg TID@,,17 PO Last administered on 03/07/19 12:3 4; Admin Dose 10 MG; Start 02/23/19 at 13:00 Ascorbic Acid (Vitamin C) 500 mg BID PO Last administered on 03/07/19 08:16; Admin Dose 500 MG; Start 02/24/19 at 21:00; Stop 03/26/19 at 20:59 Ferrous Sulfate (Ferrous Sulfate (Ec)) 325 mg BID PO Last administered on 03/07/19 08:16; Admin Dose 325 MG; Start 02/24/19 at 21:00; Stop 03/26/19 at 20:59 Spironolactone (Aldactone) 50 mg BID DIURETICS PO Last administered on 03/07/19 05:36; Admin Dose 50 MG; Start 02/27/19 at 18:00 Docusate Sodium (Colace) 200 mg BID PO Last administered on 03/07/19 08:16; Admin Dose 200 MG; Start 02/27/19 at 21:00 Bismuth Subsalicylate (Pepto-Bismol) 30 ml QID PO Last administered on 03/07/19 16:45; Admin Dose 30 ML; Start 02/27/19 at 21:00 Cefepime HCl 50 ml @ 100 mls/hr Q12 IVPB Last administered on 03/07/19 08:17; Admin Dose 100 MLS/HR; Start 03/01/19 at 13:00; Stop 03/08/19 at 12:59 Insulin Glargine (Lantus) 3 units DAILY@0930 SC Last administered on 03/07/19 10:03; Admin Dose 3 UNITS; Start 03/02/19 at 09:30 Ondansetron HCl (Zofran Inj) 4 mg Q4 PRN IV NAUSEA/VOMITING Last administered on 03/04/19 05:50; Admin Dose 4 MG; Start 03/04/19 at 03:30 Metoclopramide HCl (Reglan) 10 mg Q6H PRN IV NAUSEA Last administered on 03/04/19 03:22; Admin Dose 10 MG; Start 03/04/19 at 03:30 Insulin Aspart (Novolog Insulin Pen) 3 unit WITH MEALS SC Last administered on 03/07/19 17:01; Admin Dose 3 UNIT; Start 03/04/19 at 17:55 Furosemide (Lasix) 20 mg BID PO Last administered on 03/07/19 08:16; Admin Dose 20 MG; Start 03/05/19 at 21:00 BRENDEN AGUAYO M.D. March 07, 2019 18:19
== END 2019-03-07 19:05 | disposition home health service (06) | DRG 871 ==
LOC: E/R 11:41 → ICU 14:46 → PP2 02-09 17:20 → ICU 02-16 09:47 → TEL 02-16 16:42
PROVIDERS: ADMIT Internal Medicine; ATTEND Internal Medicine
PROC: 06HM33Z Insertion of Infusion Device into Right Femoral Vein, Percutaneous Approach (ICD-10-PCS; principal; 2019-02-06)
PROC: 07DR3ZX Extraction of Iliac Bone Marrow, Percutaneous Approach, Diagnostic (ICD-10-PCS; 2019-02-19)
PROC: 0W993ZZ Drainage of Right Pleural Cavity, Percutaneous Approach (ICD-10-PCS; 2019-02-28)
PROC: 0DB68ZX Excision of Stomach, Via Natural or Artificial Opening Endoscopic, Diagnostic (ICD-10-PCS; 2019-03-04)
PROC: B246ZZ4 Ultrasonography of Right and Left Heart, Transesophageal (ICD-10-PCS; 2019-03-05)
DX: A41.9 Sepsis, unspecified organism (principal); R65.21 Severe sepsis with septic shock; N39.0 Urinary tract infection, site not specified; E87.1 Hypo-osmolality and hyponatremia; J90 Pleural effusion, not elsewhere classified; D61.818 Other pancytopenia; N17.9 Acute kidney failure, unspecified; B37.0 Candidal stomatitis; I47.1 Supraventricular tachycardia; E22.2 Syndrome of inappropriate secretion of antidiuretic hormone; R18.8 Other ascites; E05.00 Thyrotoxicosis with diffuse goiter without thyrotoxic crisis or storm; I95.9 Hypotension, unspecified; E87.5 Hyperkalemia; D50.9 Iron deficiency anemia, unspecified; B96.81 Helicobacter pylori [H. pylori] as the cause of diseases classified elsewhere; E11.65 Type 2 diabetes mellitus with hyperglycemia; E86.0 Dehydration; K74.60 Unspecified cirrhosis of liver; N45.1 Epididymitis; K14.0 Glossitis; R60.1 Generalized edema; E11.40 Type 2 diabetes mellitus with diabetic neuropathy, unspecified; S90.425A Blister (nonthermal), left lesser toe(s), initial encounter; S90.424A Blister (nonthermal), right lesser toe(s), initial encounter; K20.9 Esophagitis, unspecified; K29.70 Gastritis, unspecified, without bleeding; R50.9 Fever, unspecified; F10.21 Alcohol dependence, in remission; B96.89 Other specified bacterial agents as the cause of diseases classified elsewhere; Z16.24 Resistance to multiple antibiotics
CPT/HCPCS: 36415; 71045; 71260; 74177; 76705; 76870; 76942; 77012; 80048; 80053; 80061; 80076; 81001; 81003; 82043; 82140; 82164; 82270; 82533; 82550; 82607; 82728; 82784; 82945; 82962; 83036; 83540; 83605; 83615; 83735; 83935; 84100; 84145; 84155; 84157; 84295; 84300; 84436; 84439; 84443; 84479; 84481; 84484; 84560; 85014; 85018; 85025; 85384; 85610; 85651; 85730; 86021; 86022; 86038; 86140; 86147; 86255; 86430; 86480; 86592; 86704; 86709; 86803; 87070; 87075; 87081; 87086; 87102; 87116; 87177; 87340; 87400; 87591; 88104; 88305; 88311; 88312; 88313; 88341; 88342; 89051; 92610; 93005; 93306; 93312; 93922; 93970; 96374; 96375; 97110; 97116; 97162; 97164; 97530; J0153; J0692; J0696; J0833; J1450; J1644; J1720; J1815; J1940; J2250; J2270; J2370; J2405; J2543; J2765; J2916; J3010; J3475; J3480; J7030; J7040; J7120; P9047; Q9967